=== PATIENT | male | born 1980 | race Caucasian/White ===

== ENCOUNTER 2021-02-08 13:04 | Inpatient (IN) ==
--- NOTE | 2021-02-08 14:43 | Emergency Department Note ---
History of Present Illness General Chief complaint: Illness Stated complaint: Illness noncompliant w/ meds Time Seen by Provider: 02/08/21 14:02 Source: EMS Mode of arrival: EMS Limitations: patient cooperation History of Present Illness Provider complaint: Unresponsive episode This is a 40-year-old male brought in by EMS after supposedly roommates or neighbors called 911. EMS reports their initial call out was for an unresponsive person. They reported to EMS and police patient had not taken his meds or moved off the couch in 1 month. Patient was awake for EMS however refused to provide any additional history. On my evaluation here in the emergency room, patient did say hi been entered the room but otherwise refused to answer any questions, was seated on the bed in no apparent distress. Pt seen during a time of high acuity and national emergency pandemic while wearing PPE. Home Medications Medication Instructions Recorded Confirmed Type olanzapine 10 mg tablet (Zyprexa) 15 mg PO HS 03/14/20 02/08/21 History bupropion HCl 100 mg tablet,12 hr 100 mg PO BID 10/31/20 02/08/21 History sustained-release lamotrigine 200 mg tablet 200 mg PO BID 10/31/20 02/08/21 History Allergies Allergy/AdvReac Type Severity Reaction Status Date / Time No Known Allergies Allergy Verified 02/08/21 22:26 Past Med/Surg History Medical History Anxiety Bipolar disorder Depression Obesity Surgical History No pertinent past surgical history Social History Smoking Status: Unknown if ever smoked Preferred Language: Upper Sorbian Feels Safe at Home: Declines to Answer Review of Systems See HPI for pertinent positives & negatives. Unobtainable due to mental health condition Physical Exam Vital Signs Vital Signs - 24 hr 02/08/21 13:10 02/08/21 19:19 02/08/21 21:00 Temperature 36.8 C Temperature Source Oral Pulse Rate 84 Pulse Rate [Right Finger] 84 82 Pulse Rhythm Regular Pulse Strength Normal Respiratory Rate 18 20 20 Respiratory Effort / Characteristics Non-Labored Non-Labored Spontaneous Non-Labored Spontaneous Respiratory Depth Normal Normal Normal Respiratory Pattern Regular Regular Blood Pressure 141/98 H Blood Pressure [Right Arm] 136/83 128/74 Blood Pressure Mean 112 Blood Pressure Mean [Right Arm] 100 92 Blood Pressure Position Sitting Pulse Oximetry 99 95 96 Oxygen Delivery Method Room Air Room Air Room Air Sepsis Recent Fever Within 48 Hours No Sepsis New/Unexplained Change in Mental Status N/A Sepsis Action Taken by Nursing No Action Required GENERAL: alert, well appearing, well nourished, no distress, non-toxic EYE EXAM: normal conjunctiva, PERRL and EOM's grossly intact OROPHARYNX: no exudate, no erythema, lips, buccal mucosa, and tongue normal and mucous membranes are moist NECK: supple, no nuchal rigidity, no adenopathy, non-tender LUNGS: Clear to auscultation. Normal chest wall mechanics, no w/r/r HEART: no murmurs, S1 normal and S2 normal ABDOMEN: abdomen soft, non-tender, normo-active bowel sounds, no masses, no rebound or guarding. BACK: Back is symmetrical on inspection and there is no deformity, no midline tenderness, no CVA tenderness. SKIN: no rashes and no bruising UPPER EXTREMITIES: upper extremities are grossly normal. FROM, nml pulses b/l. LOWER EXTREMITIES: No pitting edema. FROM, nml pulses b/l. NEURO EXAM: Patient is awake, looks to me when I entered the room, would not cooperate for any additional neuro testing however is moving all 4 extremities spontaneously. Course Course 213: 302 signed. manager access contacted delegate. Administered Medications Discontinued Medications Sodium Chloride (Nss 1000ml) 1,000 mls @ 999 mls/hr IV .[id number] ONE Stop: 02/09/21 00:18 Last Admin: 02/09/21 01:25 Dose: Not Given Documented by: [id number] Medical Decision Making Differential Diagnosis Differential diagnoses considered include mood disorder, infection, hypoglycemia, electrolyte abnormalities, cardiac sources, intracerebral event, toxicologic, neurologic, as well as others. Laboratory Data Result diagrams: 02/08/21 14:32 02/08/21 14:32 Lab Results 02/08/21 02/08/21 02/08/21 Range/Units 14:32 14:32 14:32 WBC 12.98 H (4.8-10.8) K/uL RBC 5.98 (4.7-6.1) M/uL Hgb 18.7 H (14.0-18.0) g/dL Hct 51.3 (42-52) % MCV 85.8 (80-100) fL MCH 31.3 (25-34) pg MCHC 36.5 H (32-36) g/dL RDW Std Deviation 39.5 (36.4-46.3) fL RDW Coeff of [place] 12.6 (11.5-14.5) % Plt Count 275 (130-400) K/uL MPV 10.3 (7.4-10.4) fL Immature Gran % (Auto) 0.6 % Neut % (Auto) 74.3 % Lymph % (Auto) 14.2 % [place] % (Auto) 10.4 % Eos % (Auto) 0.3 % Baso % (Auto) 0.2 % Neut # (Auto) 9.64 H (1.4-6.5) K/uL Lymph # (Auto) 1.84 (1.2-3.4) K/uL [place] # (Auto) 1.35 H (0.11-0.59) K/uL Eos # (Auto) 0.04 (0-0.5) K/uL Baso # (Auto) 0.03 (0-0.2) K/uL Immature Gran # (Auto) 0.08 H (0.00-0.02) K/uL Sodium 141 (136-145) mmol/L Potassium 3.5 (3.5-5.1) mmol/L Chloride 109 H (98-107) mmol/L Carbon Dioxide 21 (21-32) mmol/L Anion Gap 11.0 (3-11) BUN 19 H (7-18) mg/dl Creatinine 1.30 (0.6-1.4) mg/dl Est Cr Clr Drug Dosing 103.0 ml/min Est GFR ( Amer) 79.1 ml/min Est GFR (Non-Af Amer) 68.3 ml/min BUN/Creatinine Ratio 14.9 (10-20) Glucose 103 H (70-99) mg/dl Calcium 9.6 (8.5-10.1) mg/dl Total Bilirubin 0.6 (0.2-1) mg/dl AST 10 L (15-37) U/L ALT 16 (12-78) U/L Alkaline Phosphatase 123 H (45-117) U/L Total Protein 7.9 (6.4-8.2) gm/dl Albumin 3.9 (3.4-5.0) gm/dl Globulin 4.0 (2.5-4.0) gm/dl Albumin/Globulin Ratio 1.0 (0.9-2) TSH 0.418 (0.300-4.500) uIu/ml Urine Color Urine Appearance (Clear) Urine pH (4.5-7.5) Ur Specific [place] (1.000-1.030) Urine Protein (Negative) Urine Glucose (UA) (Negative) Urine Ketones (Negative) Urine Blood (Negative) Urine Nitrite (Negative) Urine Bilirubin (Negative) Urine Urobilinogen (Negative) Ur Leukocyte Esterase (Negative) Urine WBC (Auto) (0-5) /hpf Urine RBC (Auto) (0-4) /hpf U Hyaline Cast (Auto) (0-5) /lpf U Epithel Cells (Auto) (0-5) /lpf Urine Bacteria (Auto) (Negative) Other Crystals (None Prsent) Urine Mucus (None Prsent) Salicylates < 1.7 L (2.8-20) mg/dl Urine Opiates Screen (Neg) Ur Methadone, Qual (Neg) Acetaminophen < 2 L (10-30) ug/ml Urine Barbiturates (Neg) Ur Phencyclidine (PCP) (Neg) U Amphetamin/Meth Scrn (Neg) MDMA (Ecstasy) Screen (Neg) U Benzodiazepines Scrn (Neg) Ur Cocaine Metabolite (Neg) U Marijuana (THC) Screen (Neg) Ethyl Alcohol mg/dL (0-3) mg/dl COVID-19 Eval Order SARS-CoV-2, RNA, NAAT (NEGATIVE) 02/08/21 02/08/21 02/08/21 Range/Units 14:32 17:16 17:16 WBC (4.8-10.8) K/uL RBC (4.7-6.1) M/uL Hgb (14.0-18.0) g/dL Hct (42-52) % MCV (80-100) fL MCH (25-34) pg MCHC (32-36) g/dL RDW Std Deviation (36.4-46.3) fL RDW Coeff of Sidney (11.5-14.5) % Plt Count (130-400) K/uL MPV (7.4-10.4) fL Immature Gran % (Auto) % Neut % (Auto) % Lymph % (Auto) % [place] % (Auto) % Eos % (Auto) % Baso % (Auto) % Neut # (Auto) (1.4-6.5) K/uL Lymph # (Auto) (1.2-3.4) K/uL [place] # (Auto) (0.11-0.59) K/uL Eos # (Auto) (0-0.5) K/uL Baso # (Auto) (0-0.2) K/uL Immature Gran # (Auto) (0.00-0.02) K/uL Sodium (136-145) mmol/L Potassium (3.5-5.1) mmol/L Chloride (98-107) mmol/L Carbon Dioxide (21-32) mmol/L Anion Gap (3-11) BUN (7-18) mg/dl Creatinine (0.6-1.4) mg/dl Est Cr Clr Drug Dosing ml/min Est GFR ( Amer) ml/min Est GFR (Non-Af Amer) ml/min BUN/Creatinine Ratio (10-20) Glucose (70-99) mg/dl Calcium (8.5-10.1) mg/dl Total Bilirubin (0.2-1) mg/dl AST (15-37) U/L ALT (12-78) U/L Alkaline Phosphatase (45-117) U/L Total Protein (6.4-8.2) gm/dl Albumin (3.4-5.0) gm/dl Globulin (2.5-4.0) gm/dl Albumin/Globulin Ratio (0.9-2) TSH (0.300-4.500) uIu/ml Urine Color Urine Appearance (Clear) Urine pH (4.5-7.5) Ur Specific [place] (1.000-1.030) Urine Protein (Negative) Urine Glucose (UA) (Negative) Urine Ketones (Negative) Urine Blood (Negative) Urine Nitrite (Negative) Urine Bilirubin (Negative) Urine Urobilinogen (Negative) Ur Leukocyte Esterase (Negative) Urine WBC (Auto) (0-5) /hpf Urine RBC (Auto) (0-4) /hpf U Hyaline Cast (Auto) (0-5) /lpf U Epithel Cells (Auto) (0-5) /lpf Urine Bacteria (Auto) (Negative) Other Crystals (None Prsent) Urine Mucus (None Prsent) Salicylates (2.8-20) mg/dl Urine Opiates Screen (Neg) Ur Methadone, Qual (Neg) Acetaminophen (10-30) ug/ml Urine Barbiturates (Neg) Ur Phencyclidine (PCP) (Neg) U Amphetamin/Meth Scrn (Neg) MDMA (Ecstasy) Screen (Neg) U Benzodiazepines Scrn (Neg) Ur Cocaine Metabolite (Neg) U Marijuana (THC) Screen (Neg) Ethyl Alcohol mg/dL < 3.0 (0-3) mg/dl COVID-19 Eval [facility] SARS-CoV-2, RNA, NAAT NEGATIVE (NEGATIVE) 02/08/21 02/08/21 Range/Units 19:45 19:45 WBC (4.8-10.8) K/uL RBC (4.7-6.1) M/uL Hgb (14.0-18.0) g/dL Hct (42-52) % MCV (80-100) fL MCH (25-34) pg MCHC (32-36) g/dL RDW Std Deviation (36.4-46.3) fL RDW Coeff of Sidney (11.5-14.5) % Plt Count (130-400) K/uL MPV (7.4-10.4) fL Immature Gran % (Auto) % Neut % (Auto) % Lymph % (Auto) % [place] % (Auto) % Eos % (Auto) % Baso % (Auto) % Neut # (Auto) (1.4-6.5) K/uL Lymph # (Auto) (1.2-3.4) K/uL [place] # (Auto) (0.11-0.59) K/uL Eos # (Auto) (0-0.5) K/uL Baso # (Auto) (0-0.2) K/uL Immature Gran # (Auto) (0.00-0.02) K/uL Sodium (136-145) mmol/L Potassium (3.5-5.1) mmol/L Chloride (98-107) mmol/L Carbon Dioxide (21-32) mmol/L Anion Gap (3-11) BUN (7-18) mg/dl Creatinine (0.6-1.4) mg/dl Est Cr Clr Drug Dosing ml/min Est GFR ( Amer) ml/min Est GFR (Non-Af Amer) ml/min BUN/Creatinine Ratio (10-20) Glucose (70-99) mg/dl Calcium (8.5-10.1) mg/dl Total Bilirubin (0.2-1) mg/dl AST (15-37) U/L ALT (12-78) U/L Alkaline Phosphatase (45-117) U/L Total Protein (6.4-8.2) gm/dl Albumin (3.4-5.0) gm/dl Globulin (2.5-4.0) gm/dl Albumin/Globulin Ratio (0.9-2) TSH (0.300-4.500) uIu/ml Urine Color Dark Yellow Urine Appearance Turbid A (Clear) Urine pH 6.0 (4.5-7.5) Ur Specific [place] 1.036 H (1.000-1.030) Urine Protein 1+ H (Negative) Urine Glucose (UA) Negative (Negative) Urine Ketones 4+ H (Negative) Urine Blood Negative (Negative) Urine Nitrite Negative (Negative) Urine Bilirubin Negative (Negative) Urine Urobilinogen Negative (Negative) Ur Leukocyte Esterase Negative (Negative) Urine WBC (Auto) 1-5 (0-5) /hpf Urine RBC (Auto) 5-10 H (0-4) /hpf U Hyaline Cast (Auto) 10-30 H (0-5) /lpf U Epithel Cells (Auto) 20-30 H (0-5) /lpf Urine Bacteria (Auto) Negative (Negative) Other Crystals Ammonium Biurate A (None Prsent) Urine Mucus Present A (None Prsent) Salicylates (2.8-20) mg/dl Urine Opiates Screen Neg (Neg) Ur Methadone, Qual Neg (Neg) Acetaminophen (10-30) ug/ml Urine Barbiturates Neg (Neg) Ur Phencyclidine (PCP) Neg (Neg) U Amphetamin/Meth Scrn Neg (Neg) MDMA (Ecstasy) Screen Neg (Neg) U Benzodiazepines Scrn Neg (Neg) Ur Cocaine Metabolite Neg (Neg) U Marijuana (THC) Screen Neg (Neg) Ethyl Alcohol mg/dL (0-3) mg/dl COVID-19 Eval Order SARS-CoV-2, RNA, NAAT (NEGATIVE) MDM Narrative Patient presented for evaluation with neighbors reporting to EMS pt noncompliant with meds and not caring for himself. Patient refusing to answer any questions here, seems to understand and intentionally is refusing to speak. Patient encouraged to drink fluids as he appeared clinically dehydrated and labs/urine suggested dehydration. Patient continued to refuse, so an IV was attempted. This was unsuccessful and patient then willing to drink water. VS stable. Patient doesn't appear in any distress. Moving all extremities spontaneously. 302 signed and delegate came to the ER. Patient signed out to Dr. Ibrahim pending final disposition. Impression & Plan Noncompliance, Psychosis Discharge Plan Visit Data Chief Complaint: Illness Stated Complaint: Illness noncompliant w/ meds ED Provider: Nicolas Ibrahim Discharge Problem: Noncompliance, Psychosis Forms Stand Alone Forms: My [facility] Prescriptions Prescriptions: No Action olanzapine [Zyprexa] 10 mg Tablet 15 mg PO HS RF: 0 lamotrigine 200 mg tablet 200 mg PO BID RF: 0 bupropion HCl 100 mg tablet sustained-release 12 hr 100 mg PO BID RF: 0 Referrals Referrals: PCP,NO [Primary Care Provider] - Discharge Problem: Psychosis Qualifiers: Psychosis type: unspecified psychosis type Qualified Code(s): F29 - Unspecified psychosis not due to a substance or known physiological condition
[2021-02-08 14:49] LABS: Basophils # (auto) 0.03 K/uL (0-0.2); Basophils % (auto) 0.2 %; Eosinophils # (auto) 0.04 K/uL (0-0.5); Eosinophils % (auto) 0.3 %; Hematocrit (blood only) 51.3 % (42-52); Hemoglobin 18.7 g/dL (14.0-18.0); Immature Granulocytes # (auto) 0.08 K/uL (0.00-0.02); Immature Granulocytes % (auto) 0.6 %; Lymphocytes # (auto) 1.84 K/uL (1.2-3.4); Lymphocytes % (auto) 14.2 %; Mean Corpuscular Hemoglobin 31.3 pg (25-34); Mean Corpuscular Hgb Conc 36.5 g/dL (32-36); Mean Corpuscular Volume 85.8 fL (80-100); Mean Platelet Volume 10.3 fL (7.4-10.4); Monocytes # (auto) 1.35 K/uL (0.11-0.59); Monocytes % (auto) 10.4 %; Neutrophils # (auto) 9.64 K/uL (1.4-6.5); Neutrophils % (auto) 74.3 %; Platelet Count 275 K/uL (130-400); RDW Coefficient of Variation 12.6 % (11.5-14.5); RDW Standard Deviation 39.5 fL (36.4-46.3); Red Blood Count 5.98 M/uL (4.7-6.1); White Blood Count 12.98 K/uL (4.8-10.8)
[2021-02-08 15:15] LABS: Albumin Level 3.9 gm/dl (3.4-5.0); BUN Creatinine Ratio 14.9 (10-20); Calcium 9.6 mg/dl (8.5-10.1); Est GFR (African American) 79.1 ml/min; Est GFR (Non-African American) 68.3 ml/min; Potassium 3.5 mmol/L (3.5-5.1)
[2021-02-08 15:25] LABS: Bilirubin,Total 0.6 mg/dl (0.2-1); Thyroid Stimulating Hormone 0.418 uIu/ml (0.300-4.500); Total Protein 7.9 gm/dl (6.4-8.2)
[2021-02-08 15:30] LABS: Acetaminophen < 2 ug/ml (10-30); Salicylate < 1.7 mg/dl (2.8-20)
[2021-02-08 20:12] LABS: Appearance Urine Turbid (Clear); Bacteria Urine Automated Negative (Negative); Bilirubin Urine Negative (Negative); Blood Urine Negative (Negative); Color Urine Dark Yellow; Epithelial Cell Urine Auto 20-30 /lpf (0-5); Glucose Urine UA Negative (Negative); Ketones Urine 4+ (Negative); Leukocyte Esterase Urine Negative (Negative); Nitrite Urine Negative (Negative); Protein Urine 1+ (Negative); Specific Gravity Urine 1.036 (1.000-1.030); Urobilinogen Urine Negative (Negative)
[2021-02-08 20:30] LABS: Amphetamines+Metham, Urine Neg (Neg); Barbiturates, Urine Neg (Neg); Benzodiazepine, Urine Neg (Neg); Cocaine, Urine Neg (Neg); MDMA (Ecstacy), Urine Neg (Neg); Methadone, Urine Neg (Neg); Opiate, Urine Neg (Neg); Phencyclidine, Urine Neg (Neg)
[2021-02-08 20:48] LABS: Mucus Urine Present (None Prsent)
[2021-02-08] MEDS ORDERED: SODIUM CHLORIDE 0.9% 1000ML 1,000 ML IV ONE (23:18)
--- NOTE | 2021-02-08 23:36 | Emergency Department Note ---
ED Visit Note ED Physician Sign Out Note: 40 yr old male with acute psychosis and non-compliance here on [address] after roommate called 911 due to not caring for himself, not taking his medications. Initially seen and medically cleared by Dr Parkinson. Signed out to me pending psychiatric placement. On evaluation he is sitting drinking fluids without issue. Patient accepted to [address] [place] [address] for further management. Nicolas Ibrahim MD : Psychosis Qualifiers: Psychosis type: unspecified psychosis type Qualified Code(s): F29 - Unspecified psychosis not due to a substance or known physiological condition
[2021-02-09] MEDS ORDERED: BISMUTH SUBSALICYLATE LIQD 236 ML PO PRN (02:04)
[2021-02-09] MEDS ORDERED: ALUMINUM/MAGNESIUM SUSP 30 ML UDC PO PRN (02:04)
[2021-02-09] MEDS ORDERED: SODIUM CHLORIDE 0.65% NA SOLN 45 ML (OCEAN) PRN (02:04)
[2021-02-09] MEDS ORDERED: ACETAMINOPHEN 325 MG TAB PO PRN (02:04)
[2021-02-09] MEDS ORDERED: MAGNESIUM HYDROXIDE SUSP 30 ML UDC PO PRN (02:04)
[2021-02-09] MEDS ORDERED: hydrOXYzine HCl 25 MG TAB PO PRN ×2 (02:04)
[2021-02-09] MEDS ORDERED: LORazepam 0.5 MG TAB PO STA (02:07)
[2021-02-09] MEDS ORDERED: OLANZapine 5 MG TABLET PO STA (02:07)
[2021-02-09] MEDS ORDERED: LORazepam 1 MG TAB SL STA (09:54)
[2021-02-09] MEDS ORDERED: LORazepam 2 MG/ML VIAL (IM USE) IM PRN (14:58)
[2021-02-09] MEDS ORDERED: LORazepam 2 MG/ML VIAL (IM USE) IM ONE (15:00)
--- NOTE | 2021-02-09 15:58 | History & Physical ---
Date of Service February 09, 2021 Impression / Recommendations Impression The patient is a 40 year old with a history of schizoaffective disorder, catatonia and depression who was admitted for failure of self-care and worsening decompensation. The patient is deemed unstable and requires psychiatric hospitalization for diagnostic clarification, safety and stabilization, medication management and development of further coping skills. The patient was admitted to the [facility] on q15 min checks (behavioral with suicide precautions) for safety. The patient will participate in group, recreational, and milieu therapies and will be offered additional individual and family sessions as clinically appropriate. Diagnostically consistent with schizoaffective disorder per history with catatonia likely current depression given reports of multiple psychosocial stressors including pending divorce and child custody court case. Refusing sublingual ativan so unable to do ativan challenge. For now will continue to encourage SL ativan and monitor I/Os. (1) Catatonia: (2) Schizoaffective disorder: 02/09/2021--admitted to [facility]. Ativan 2mg SL TID ordered. Track Is&Os. Vitals BID. Inventory Assets Strengths: outpatient providers Risk Factors Assessment Male: Yes : Yes Do You Have Access To A Gun?: No (in supportive living enviornment, pt unable to answer ) Mental Health Diagnoses: Yes Previous Psychiatric Hospitalization: Yes Protective Factors Assessment Employed: No Psychiatric History Identifying Data LAMAR SWIFT is a 40-year-old man who currently lives in a supportive living environment, has a history of BPAD and catatonia with multiple prior psychiatric hospitalizations, and was admitted on 02/09/21 01:22 on a 302 involuntary commitment for lack of regard to self-care, not eating or drinking, and not moving raising concern for catatonia. Chief Complaint Patient is nonverbal during assessment. History of Present Illness Lamar is lying in bed on his side under the covers with his jaw clenched and eyes open. He makes brief eye contact but is otherwise non-verbal throughout the interview. Collateral information and chart review notable for a history of significant psychiatric decompensation in 2018 with recent psychosocial stressors including divorce and potential custody changes regarding his daughter. He has a history of BPAD vs schizoaffective disorder and catatonia. He has not been taking his medications for a month and missed his last appointment with his psychiatrist. He has apparently been hardly moving from a couch and ov er the last week showing significant reduction in po intake. Branham-Alfonso Catatonia Rating Scale was completed with screeing score of 11 (highest items for mutism, grimacing, withdrawal. Past Psychiatric History Previous Psych History: Hx of diagnoses of BPAD vs schizoaffective disorder, hx MDD, hx catatonia Current Psychiatric Diagnosis: Schizoaffective depressed type Outpatient Services: has case repairer and supportive housing and psychiatrist through [facility] Previous Psych Admissions: multiple-unable to clarify precise dates Do You Have Access To A Gun?: No (in supportive living enviornment, pt unable to answer ) History of Previous Suicide Attempt: No (none known per chart review) Past Medication Trials: has received ativan in the past, most recently was prescribed lamictal, Wellbutrin and zyprexa but hasn't taken in more than a month Allergies Allergy/AdvReac Type Severity Reaction Status Date / Time No Known Allergies Allergy Verified 02/08/21 22:26 Home Medications Medication Instructions Recorded Confirmed Type olanzapine 10 mg tablet (Zyprexa) 15 mg PO HS 03/14/20 02/08/21 History bupropion HCl 100 mg tablet,12 hr 100 mg PO BID 10/31/20 02/08/21 History sustained-release lamotrigine 200 mg tablet 200 mg PO BID 10/31/20 02/08/21 History Family History Family History of: Doesn't Know Alcohol History Hx of Alcohol Use Over the Past 12 Months: No Smoking Use Have You Smoked or Used Tobacco Products in the Last 30 Days: Refused to Answer Smoking Status: Unknown if ever smoked Substance History Hx of Prescription Med Misuse Over the Past 12 Months: No Hx of Over the Counter Med Misuse Over the Past 12 Months: No Hx of Inhalent Misuse Over the Past 12 Months: No Hx of Organic Substance Use Over the Past 12 Months: No Hx of Illegal Substances/Street Drug Use Over Past 12 Months: No Problems as a Result of Past Substance Use: None Identified Personal History Living Arrangements: [facility] Living Arrangements Comments: [facility] Marital Status: Beliefs That Will Affect Care: None Patient History Medical History (Updated 02/09/21 @ 16:10 by Tete Garces MD) Anxiety Bipolar disorder Catatonia Depression Obesity Schizoaffective disorder Surgical History No pertinent past surgical history Social History Smoking Status: Unknown if ever smoked Preferred Language: Polish Communication Ability: non-verbal Communication Ability Comment: Catatonic like behavior Systems Administration Analyst Required: No Beliefs That Will Affect Care: None Feels Safe at Home: Declines to Answer Assistive Devices: Glasses Review of Systems Review of Systems: Unobtainable due to mental health condition Physical Exam Psychiatric: Orientation: alert; + uncooperative Apperance: + disheveled Eye Contact: + fair eye contact Motor Behavior: + psychomotor retardation Speech: + mute Affect: + flat affect unable to assess unable to assess unable to assess unable to assess unable to assess unable to assess unable to assess Judgement: + severely impaired judgement Vital Signs (Past 24 Hours): Last Vital Signs Temp 36.8 C 02/09/21 02:17 Pulse 120 H 02/09/21 13:23 Resp 16 02/09/21 06:59 BP 165/81 H 02/09/21 13:23 Pulse Ox 98 02/09/21 02:17 Exam Statement: A physical exam was performed in the ED by Dr. Ibrahim for the purposes of medical clearance. I accept that physical as correct and adequate for the purposes of the inpatient physical exam. Results & Data ([facility]) Laboratory Results Laboratory Results - last 24 hr 02/08/21 02/08/21 02/08/21 17:16 17:16 19:45 Urine Color Dark Yellow Urine Appearance Turbid A Urine pH 6.0 Ur Specific [place] 1.036 H Urine Protein 1+ H Urine Glucose (UA) Negative Urine Ketones 4+ H Urine Blood Negative Urine Nitrite Negative Urine Bilirubin Negative Urine Urobilinogen Negative Ur Leukocyte Esterase Negative Urine WBC (Auto) 1-5 Urine RBC (Auto) 5-10 H U Hyaline Cast (Auto) 10-30 H U Epithel Cells (Auto) 20-30 H Urine Bacteria (Auto) Negative Other Crystals Ammonium Biurate A Urine Mucus Present A Urine Opiates Screen Ur Methadone, Qual Urine Barbiturates Ur Phencyclidine (PCP) U Amphetamin/Meth Scrn MDMA (Ecstasy) Screen U Benzodiazepines Scrn Ur Cocaine Metabolite U Marijuana (THC) Screen COVID-19 Eval [facility] SARS-CoV-2, RNA, NAAT NEGATIVE 02/08/21 19:45 Urine Color Urine Appearance Urine pH Ur Specific [place] Urine Protein Urine Glucose (UA) Urine Ketones Urine Blood Urine Nitrite Urine Bilirubin Urine Urobilinogen Ur Leukocyte Esterase Urine WBC (Auto) Urine RBC (Auto) U Hyaline Cast (Auto) U Epithel Cells (Auto) Urine Bacteria (Auto) Other Crystals Urine Mucus Urine Opiates Screen Neg Ur Methadone, Qual Neg Urine Barbiturates Neg Ur Phencyclidine (PCP) Neg U Amphetamin/Meth Scrn Neg MDMA (Ecstasy) Screen Neg U Benzodiazepines Scrn Neg Ur Cocaine Metabolite Neg U Marijuana (THC) Screen Neg COVID-19 Eval Order SARS-CoV-2, RNA, NAAT Current Inpatient Medications Current Inpatient Medications: Current Inpatient Medications Acetaminophen (Acetaminophen 325 Mg Tab) 650 mg PO Q4H PRN PRN Reason: Headache or Minor Fever Stop: 03/11/21 02:03 Al Hydrox/Mg Hydrox/Simethicone (Aluminum/Magnesium Susp 30 Ml Udc) 30 ml PO Q4H PRN PRN Reason: GI Upset Stop: 03/11/21 02:03 Bismuth Subsalicylate (Bismuth Subsalicylate Liqd 236 Ml) 15 ml PO PRN PRN PRN Reason: Loose Stool Stop: 03/11/21 02:03 Hydroxyzine HCl (Hydroxyzine Hcl 25 Mg Tab) 50 mg PO HSZ PRN PRN Reason: Insomnia Stop: 03/11/21 02:03 Hydroxyzine HCl (Hydroxyzine Hcl 25 Mg Tab) 25 mg PO Q4H PRN PRN Reason: Anxiety Stop: 03/11/21 02:03 Lorazepam (Lorazepam 1 Mg Tab) 2 mg SL TID OG Stop: 03/11/21 20:59 Magnesium Hydroxide (Magnesium Hydroxide Susp 30 Ml Udc) 30 ml PO DAILY PRN PRN Reason: Constipation Stop: 03/11/21 02:03 Sodium Chloride (Sodium Chloride 0.65% Na Soln 45 Ml ([place])) 1 - 2 sprays NA PRN PRN PRN Reason: Nasal Dryness/Congestion Stop: 03/11/21 02:03
[2021-02-09] MEDS: LORazepam 1 MG TAB SL SCH (20:13)
[2021-02-10] MEDS: LORazepam 1 MG TAB SL SCH ×3 (09:09→20:04)
--- NOTE | 2021-02-10 11:30 | Psychiatric Progress Note ---
Date of Service February 10, 2021 Impression / Recommendations Impression The patient is a 40 year old with a history of schizophrenia vs BPAD, catatonia and depression who was admitted for failure of self-care and worsening decompensation. The patient is deemed unstable and requires psychiatric hospitalization for diagnostic clarification, safety and stabilization, medication management and development of further coping skills. Diagnostically consistent with bipolar depression based on his history though one statement during interview could be considered more consistent with schizoaffective disorder. Responded well to ativan trial so will continue with TID dosing with plan to then possible try latuda or zyprexa for bipolar depression/schizoaffective disorder. Less concern for DVT now that he's up and walking and he denies any personal or fam hx of blood clots. He consented to continuing ativan after discussion of risks, benefits, alternatives. Continues to require MNPR for psychiatric symptoms of poor self-care and hygiene. (1) Catatonia: (2) Bipolar disorder with depression: 02/09/2021--admitted to [facility]. Ativan 2mg SL TID ordered. Track Is&Os. Vitals BID. 02/10/2021--continue with ativan 2mg TID SL. Showing significant improving in catatonic symptoms since ativan trial last night. If he continues to walk around no need for DVT prophylaxis. Will consider if 302 needs to be converted to 303 based on progress today. Inventory Assets Strengths: outpatient providers Risk Factors Assessment Male: Yes : Yes Do You Have Access To A Gun?: No (in supportive living enviornment, pt unable to answer ) Mental Health Diagnoses: Yes Previous Psychiatric Hospitalization: Yes Protective Factors Assessment Employed: No Interval History Identifying Information 40 yo man with history of catatonia, depression, possible BPAD vs schizophrenia admitted due to concern for catatonia and decompensation with failure of self- care. Chief Complaint "I'm withdrawn but not catatonic". Review of Systems Sleep Information Total Hours of Sleep: 8 Meal Information Percent Meal Consumed - Breakfast: 0 Percent Meal Consumed - Lunch: 0 Percent Meal Consumed - Dinner: 0 Nutrition Comment: pt had sips of fluids w prompts Subjective Subjective Chart and events of last 24 hours reviewed and discussed with multidisciplinary treatment team including nursing and social work. Accepted ativan last evening and within two hours was sitting up, going to bathroom and speaking with staff. Slept well. Ate dinner. Adherent with medications last night. David reports he has been catatonic before and that this time is different that he is "withdrawn" due to depression. Notes that depression stems from current divorce and custody duncan with ex-. He states he stopped his medications last month as they cause "heaviness and pressure" on his head and make it hard for him to do math and concentrate on things he likes. Notes that he is frustrated by limitations placed on him at his supportive living environment. Does ask at one point if we are "flying or up really high" based on the view from his bed. No other signs of psychosis or delusions. He disagrees with past diagnoses of schizophrenia and bipolar disorder though notes he has had periods of elevated mood, creativity and productivity during his life possibly representing episodes of lucio or hypomania. Feels he's in the hospital due to people worrying about him but he doesn't feel very worried about himself. He is agreeable to taking ativan though notes sometimes it makes him a bit dizzy. Denies current side effects. Feels we will know he is better once he is engaging more and speaking consistently with people. Agreed to start journaling and to eat breakfast. Is open to taking latuda or zyprexa but dislikes lithium. Spent more than 20 minutes in the care and coordination of this patient of which greater than 50% was dedicated to counseling and coordination of care. Physical Exam Psychiatric Orientation: alert and cooperative Apperance: + disheveled Eye Contact: good eye contact Motor Behavior: no abnormal motor movements Speech: normal rate/rhythm/volume of speech Affect: + flat affect Mood: + depressed mood Thought Process: goal directed thought process Thought Content: reality based without delusions Suicidal Thoughts: denies suicidal thoughts Homicidal Thoughts: denies homicidal thoughts Cognition: recent memory grossly intact, remote memory grossly intact and language grossly intact Estimated Intelligence: consistent with education level Insight: + limited insight Judgement: + limited judgement Vital Signs (Past 24 Hours) Last Vital Signs Temp 36.6 C 02/10/21 06:43 Pulse 98 H 02/10/21 06:43 Resp 16 02/09/21 16:23 BP 107/73 02/10/21 06:43 Pulse Ox 100 02/09/21 16:23 Results & Data ([facility]) Current Inpatient Medications Current Inpatient Medications: Current Inpatient Medications Acetaminophen (Acetaminophen 325 Mg Tab) 650 mg PO Q4H PRN PRN Reason: Headache or Minor Fever Stop: 03/11/21 02:03 Al Hydrox/Mg Hydrox/Simethicone (Aluminum/Magnesium Susp 30 Ml Udc) 30 ml PO Q4H PRN PRN Reason: GI Upset Stop: 03/11/21 02:03 Bismuth Subsalicylate (Bismuth Subsalicylate Liqd 236 Ml) 15 ml PO PRN PRN PRN Reason: Loose Stool Stop: 03/11/21 02:03 Hydroxyzine HCl (Hydroxyzine Hcl 25 Mg Tab) 50 mg PO HSZ PRN PRN Reason: Insomnia Stop: 03/11/21 02:03 Hydroxyzine HCl (Hydroxyzine Hcl 25 Mg Tab) 25 mg PO Q4H PRN PRN Reason: Anxiety Stop: 03/11/21 02:03 Lorazepam (Lorazepam 1 Mg Tab) 2 mg SL TID OG Stop: 03/11/21 20:59 Last Admin: 02/10/21 09:09 Dose: 2 mg Documented by: Magnesium Hydroxide (Magnesium Hydroxide Susp 30 Ml Udc) 30 ml PO DAILY PRN PRN Reason: Constipation Stop: 03/11/21 02:03 Sodium Chloride (Sodium Chloride 0.65% Na Soln 45 Ml ([place])) 1 - 2 sprays NA PRN PRN PRN Reason: Nasal Dryness/Congestion Stop: 03/11/21 02:03 Mental Health & Subst Abuse Tx Therapist Name of Therapist: Unknown Post Discharge Appointments Primary Care Physician Name Of Family Doctor: Unknown
--- NOTE | 2021-02-10 15:34 | Progress Note ---
Date of Service February 10, 2021 Assessment & Plan Admission and Anticipated Discharge Date Admission Date: February 09, 2021 Physical Exam Psychiatric: A+Ox3, euthymic affect Eye Contact: good eye contact Results & Data ([facility]) Vital Signs (Past 12 Hours) Vital Signs Temp Pulse BP 02/10/21 13:25 82 120/83 02/10/21 06:43 36.6 C 98 H 107/73
[2021-02-11] MEDS: LORazepam 1 MG TAB SL SCH ×3 (09:30→22:17)
--- NOTE | 2021-02-11 16:10 | Psychiatric Progress Note ---
Date of Service February 11, 2021 Impression / Recommendations Impression The patient is a 40 year old with a history of schizophrenia vs BPAD, catatonia and depression who was admitted for failure of self-care and worsening decompensation. The patient is deemed unstable and requires psychiatric hospitalization for diagnostic clarification, safety and stabilization, medication management and development of further coping skills. Diagnostically consistent with bipolar depression v schizoaffective disorder. Continues to remain largely isolative to his room though has been voiding independently and eating some meals as well as drinking fluids with direction. Would not engage on exam today and refused afternoon dose of ativan. Continue with current plan to address catatonia though some withdrawn behaviors appear more volitional. -302 status, expires 02/13 in the evening -discontinuing MNPR as he is now able to void independently (1) Catatonia: (2) Bipolar disorder with depression: 02/09/2021--admitted to [facility]. Ativan 2mg SL TID ordered. Track Is&Os. Vitals BID. 02/10/2021--continue with ativan 2mg TID SL. Showing significant improving in catatonic symptoms since ativan trial last night. If he continues to walk around no need for DVT prophylaxis. Will consider if 302 needs to be converted to 303 based on progress today. 02/11/2021--continue with scheduled ativan. Less engagement today but still eating and drinking. Plan for likely 303 given his inability/reluctance to engage in treatment. Reviewed outside records. Risk Factors Assessment Male: Yes : Yes Do You Have Access To A Gun?: No (in supportive living enviornment, pt unable to answer ) Mental Health Diagnoses: Yes Previous Psychiatric Hospitalization: Yes Protective Factors Assessment Employed: No Interval History Identifying Information 40 yo man with history of catatonia, depression, possible BPAD vs schizophrenia admitted due to concern for catatonia and decompensation with failure of self- care. Chief Complaint Non-verbal today Review of Systems Sleep Information Total Hours of Sleep: 6.5 Sleep Comments: pt on q-15 minute checks Meal Information Percent Meal Consumed - Breakfast: 0 Percent Meal Consumed - Lunch: 0 Percent Meal Consumed - Dinner: 90 Nutrition Comment: Meal dated, labeled and refrigerated Subjective Subjective Chart and events of last 24 hours reviewed and discussed with multidisciplinary treatment team including nursing and social work. No acute events reported overnight. Slept well. Ate most of his dinner last night. Not attending groups. Adherent with medications but not with mid-day dose of ativan. I attempted to speak with David on three different occassions today and he would not open his eyes or interact. He has been getting up to eat and void. Spent more than 20 minutes in the care and coordination of this patient of which greater than 50% was dedicated to counseling and coordination of care. Physical Exam Psychiatric Orientation: + uncooperative Apperance: + disheveled Eye Contact: + poor eye contact Motor Behavior: no abnormal motor movements Speech: + mute Affect: + flat affect Insight: + impaired insight Judgement: + impaired judgement Vital Signs (Past 24 Hours) Last Vital Signs Temp 36.5 C 02/11/21 06:53 Pulse 111 H 02/11/21 06:53 Resp 16 02/11/21 06:53 BP 126/86 02/11/21 06:53 Pulse Ox 95 02/10/21 22:38 Results & Data ([facility]) Current Inpatient Medications Current Inpatient Medications: Current Inpatient Medications Acetaminophen (Acetaminophen 325 Mg Tab) 650 mg PO Q4H PRN PRN Reason: Headache or Minor Fever Stop: 03/11/21 02:03 Al Hydrox/Mg Hydrox/Simethicone (Aluminum/Magnesium Susp 30 Ml Udc) 30 ml PO Q4H PRN PRN Reason: GI Upset Stop: 03/11/21 02:03 Bismuth Subsalicylate (Bismuth Subsalicylate Liqd 236 Ml) 15 ml PO PRN PRN PRN Reason: Loose Stool Stop: 03/11/21 02:03 Hydroxyzine HCl (Hydroxyzine Hcl 25 Mg Tab) 50 mg PO HSZ PRN PRN Reason: Insomnia Stop: 03/11/21 02:03 Hydroxyzine HCl (Hydroxyzine Hcl 25 Mg Tab) 25 mg PO Q4H PRN PRN Reason: Anxiety Stop: 03/11/21 02:03 Lorazepam (Lorazepam 1 Mg Tab) 2 mg SL TID OG Stop: 03/11/21 20:59 Last Admin: 02/11/21 14:15 Dose: Not Given Documented by: Magnesium Hydroxide (Magnesium Hydroxide Susp 30 Ml Udc) 30 ml PO DAILY PRN PRN Reason: Constipation Stop: 03/11/21 02:03 Sodium Chloride (Sodium Chloride 0.65% Na Soln 45 Ml ([place])) 1 - 2 sprays NA PRN PRN PRN Reason: Nasal Dryness/Congestion Stop: 03/11/21 02:03 Mental Health & Subst Abuse Tx Psychiatrist Name of Psychiatrist: Oniel Jacobs Psychiatrist's Date of Appointment with Psychiatrist: 03/13/21 Time of Appointment with Psychiatrist: 9:20am Psychiatric Appointment Comment: Zoom *is on waiting list for appt. sooner Therapist Name of Therapist: Unknown Commissions Analyst Name of Commissions Analyst: Angel Johns Post Discharge Appointments Primary Care Physician Name Of Family Doctor: Unknown
[2021-02-12] MEDS: LORazepam 1 MG TAB SL SCH ×3 (09:42→20:40)
--- NOTE | 2021-02-12 17:05 | Psychiatric Progress Note ---
Date of Service February 12, 2021 Impression / Recommendations Impression The patient is a 40 year old with a history of schizophrenia vs BPAD, catatonia and depression who was admitted for failure of self-care and worsening decompensation. The patient is deemed unstable and requires psychiatric hospitalization for diagnostic clarification, safety and stabilization, medication management and development of further coping skills. Diagnostically consistent with bipolar depression v schizoaffective disorder. Continues to remain largely isolative to his room though has been voiding independently and eating some meals as well as drinking fluids with direction. Would not engage on exam again today and refusing ativan. Continue with current plan to address catatonia and then treat depression and psychosis. -302 status, expires 02/13 in the evening; commitment hearing for 303 scheduled for tomorrow (1) Catatonia: (2) Bipolar disorder with depression: 02/09/2021--admitted to [facility]. Ativan 2mg SL TID ordered. Track Is&Os. Vitals BID. 02/10/2021--continue with ativan 2mg TID SL. Showing significant improving in catatonic symptoms since ativan trial last night. If he continues to walk around no need for DVT prophylaxis. Will consider if 302 needs to be converted to 303 based on progress today. 02/11/2021--continue with scheduled ativan. Less engagement today but still eating and drinking. Plan for likely 303 given his inability/reluctance to engage in treatment. Reviewed outside records. 02/12/2021--continues to refuse ativan today and won't engage with anyone nor leave his bed except to use the bathroom and to eat at night. Given some movement in the evening and to the bathroom he doesn't require DVT prophylaxis at this time but this remains a concern should he clinically worsen and will continue to monitor his nutritional and medical status closely. Risk Factors Assessment Male: Yes : Yes Do You Have Access To A Gun?: No (in supportive living enviornment, pt unable to answer ) Mental Health Diagnoses: Yes Previous Psychiatric Hospitalization: Yes Protective Factors Assessment Employed: No Interval History Identifying Information 40 yo man with history of catatonia, depression, possible BPAD vs schizophrenia admitted due to concern for catatonia and decompensation with failure of self- care. Chief Complaint mute today Review of Systems Sleep Information Total Hours of Sleep: 6 Sleep Comments: pt on q-15 minute checks Meal Information Percent Meal Consumed - Breakfast: 0 Percent Meal Consumed - Lunch: 0 Percent Meal Consumed - Dinner: 90 Nutrition Comment: Pt will not respond to staff. Subjective Subjective Chart and events of last 24 hours reviewed and discussed with multidisciplinary treatment team including nursing and social work. No acute events reported overnight. Slept well. Ate dinner. Not attendign groups. Nonadherent with medications yesterday and today. David was mute throughout the exam. Made eye contact but no other engagement. Discussed that his 302 commitment would be expiring and gave opportunity to discuss voluntary treatment which he did not engage in. Spent more than 20 minutes in the care and coordination of this patient of which greater than 50% was dedicated to counseling and coordination of care. Physical Exam Psychiatric Orientation: alert; + uncooperative Apperance: + disheveled Eye Contact: + fair eye contact Motor Behavior: no abnormal motor movements and + psychomotor retardation Speech: + mute Affect: + flat affect Insight: + impaired insight Judgement: + severely impaired judgement Vital Signs (Past 24 Hours) Last Vital Signs Temp 36.7 C 02/12/21 14:16 Pulse 108 H 02/12/21 14:16 Resp 16 02/12/21 14:16 BP 121/85 02/12/21 14:16 Pulse Ox 95 02/10/21 22:38 Results & Data ([facility]) Current Inpatient Medications Current Inpatient Medications: Current Inpatient Medications Acetaminophen (Acetaminophen 325 Mg Tab) 650 mg PO Q4H PRN PRN Reason: Headache or Minor Fever Stop: 03/11/21 02:03 Al Hydrox/Mg Hydrox/Simethicone (Aluminum/Magnesium Susp 30 Ml Udc) 30 ml PO Q4H PRN PRN Reason: GI Upset Stop: 03/11/21 02:03 Bismuth Subsalicylate (Bismuth Subsalicylate Liqd 236 Ml) 15 ml PO PRN PRN PRN Reason: Loose Stool Stop: 03/11/21 02:03 Hydroxyzine HCl (Hydroxyzine Hcl 25 Mg Tab) 50 mg PO HSZ PRN PRN Reason: Insomnia Stop: 03/11/21 02:03 Hydroxyzine HCl (Hydroxyzine Hcl 25 Mg Tab) 25 mg PO Q4H PRN PRN Reason: Anxiety Stop: 03/11/21 02:03 Lorazepam (Lorazepam 1 Mg Tab) 2 mg SL TID OG Stop: 03/11/21 20:59 Last Admin: 02/12/21 14:22 Dose: Not Given Documented by: Magnesium Hydroxide (Magnesium Hydroxide Susp 30 Ml Udc) 30 ml PO DAILY PRN PRN Reason: Constipation Stop: 03/11/21 02:03 Sodium Chloride (Sodium Chloride 0.65% Na Soln 45 Ml ([place])) 1 - 2 sprays NA PRN PRN PRN Reason: Nasal Dryness/Congestion Stop: 03/11/21 02:03 Mental Health & Subst Abuse Tx Psychiatrist Name of Psychiatrist: Oniel Jacobs Psychiatrist's Date of Appointment with Psychiatrist: 03/13/21 Time of Appointment with Psychiatrist: 9:20am Psychiatric Appointment Comment: Zoom *is on waiting list for appt. sooner Therapist Name of Therapist: Unknown [employer] Name of [employer]: Angel Johns Post Discharge Appointments Primary Care Physician Name Of Family Doctor: Unknown
[2021-02-13] MEDS: LORazepam 1 MG TAB SL SCH ×3 (10:02→15:16)
--- NOTE | 2021-02-13 14:33 | Psychiatric Progress Note ---
Date of Service February 13, 2021 Impression / Recommendations Impression The patient is a 40 year old with a history of schizophrenia vs BPAD, catatonia and depression who was admitted for failure of self-care and worsening decompensation. The patient is deemed unstable and requires psychiatric hospitalization for diagnostic clarification, safety and stabilization, medication management and development of further coping skills. Diagnostically consistent with MDD with psychotic features and catatonia, r/o bipolar depression v schizoaffective disorder based on historical treatment and diagnoses. Remains lying in bed, mute, not eating, drinking nor attending to his personal care. For these reasons he was felt to be at risk of severe decompensation or without ongoing inpatient treatment and treatment for catatonia and then for MDD with psychotic features. Attended hearing for 303 commitment due to these concerns and 303 commitment was granted. It is my opinion, based on extensive review of his past records from Dr. Negron and other records of treatment history, that he is at significant risk of ongoing decompensation including malnutrition, dehydration, bed sores, infection or risk of DVT if he does not receive treatment for catatonia and begin moving and eating again. For these reasons it is my opinon that he requires medications over objection, starting with ativan 2 mg PO or IM. -303 status, expires 03/05 (1) Catatonia: (2) Bipolar disorder with depression: 02/09/2021--admitted to [facility]. Ativan 2mg SL TID ordered. Track Is&Os. Vitals BID. 02/10/2021--continue with ativan 2mg TID SL. Showing significant improving in catatonic symptoms since ativan trial last night. If he continues to walk around no need for DVT prophylaxis. Will consider if 302 needs to be converted to 303 based on progress today. 02/11/2021--continue with scheduled ativan. Less engagement today but still eating and drinking. Plan for likely 303 given his inability/reluctance to engage in treatment. Reviewed outside records. 02/12/2021--continues to refuse ativan today and won't engage with anyone nor leave his bed except to use the bathroom and to eat at night. Given some movement in the evening and to the bathroom he doesn't require DVT prophylaxis at this time but this remains a concern should he clinically worsen and will continue to monitor his nutritional and medical status closely. 02/13/2021--placed on 303 status due to ongoing decompensation due to catatonia including refusal of medication, not eating, not drinking, not communicating with anyone and lying in bed all day. Once catatonia begins to improve with treatment will aim to start latuda which helped previously. [place] to require medications over objection for ativan to treat catatonia. If catatonia does not respond quickly to ativan then will consider if DVT prophylaxis should be initiated. Risk Factors Assessment Male: Yes : Yes Do You Have Access To A Gun?: No (in supportive living enviornment, pt unable to answer ) Mental Health Diagnoses: Yes Previous Psychiatric Hospitalization: Yes Protective Factors Assessment Employed: No Interval History Identifying Information 40 yo man with history of catatonia, depression, possible BPAD vs schizophrenia admitted due to concern for catatonia and decompensation with failure of self- care. Chief Complaint Mute; lying in bed Review of Systems Sleep Information Total Hours of Sleep: 8 Sleep Comments: pt on q-15 minute checks Meal Information Percent Meal Consumed - Breakfast: 0 Percent Meal Consumed - Lunch: 0 Percent Meal Consumed - Dinner: 0 Nutrition Comment: Pt will not respond to staff. Subjective Subjective Patient was seen & assessed and interval progress reviewed with treatment team nursing and social work. He did not get out of bed yesterday for any groups nor did he eat any meals. Unclear if he is getting up to use the bathroom. Today he keeps his eyes closed during my encounter and does not respond to any questions. Physical Exam Psychiatric Orientation: alert; + uncooperative Apperance: + disheveled Eye Contact: + poor eye contact Motor Behavior: + psychomotor retardation Speech: + mute Affect: + flat affect Insight: + impaired insight Judgement: + severely impaired judgement Vital Signs (Past 24 Hours) Last Vital Signs Temp 36.9 C 02/13/21 06:00 Pulse 108 H 02/12/21 14:16 Resp 14 02/13/21 06:00 BP 121/85 02/12/21 14:16 Pulse Ox 95 02/10/21 22:38 Results & Data ([facility]) Current Inpatient Medications Current Inpatient Medications: Current Inpatient Medications Acetaminophen (Acetaminophen 325 Mg Tab) 650 mg PO Q4H PRN PRN Reason: Headache or Minor Fever Stop: 03/11/21 02:03 Al Hydrox/Mg Hydrox/Simethicone (Aluminum/Magnesium Susp 30 Ml Udc) 30 ml PO Q4H PRN PRN Reason: GI Upset Stop: 03/11/21 02:03 Bismuth Subsalicylate (Bismuth Subsalicylate Liqd 236 Ml) 15 ml PO PRN PRN PRN Reason: Loose Stool Stop: 03/11/21 02:03 Hydroxyzine HCl (Hydroxyzine Hcl 25 Mg Tab) 50 mg PO HSZ PRN PRN Reason: Insomnia Stop: 03/11/21 02:03 Hydroxyzine HCl (Hydroxyzine Hcl 25 Mg Tab) 25 mg PO Q4H PRN PRN Reason: Anxiety Stop: 03/11/21 02:03 Lorazepam (Lorazepam 1 Mg Tab) 2 mg SL TID OG Stop: 03/11/21 20:59 Last Admin: 02/13/21 14:04 Dose: Not Given Documented by: Magnesium Hydroxide (Magnesium Hydroxide Susp 30 Ml Udc) 30 ml PO DAILY PRN PRN Reason: Constipation Stop: 03/11/21 02:03 Sodium Chloride (Sodium Chloride 0.65% Na Soln 45 Ml ([place])) 1 - 2 sprays NA PRN PRN PRN Reason: Nasal Dryness/Congestion Stop: 03/11/21 02:03 Mental Health & Subst Abuse Tx Psychiatrist Name of Psychiatrist: Oniel Jacobs Psychiatrist's Date of Appointment with Psychiatrist: 03/13/21 Time of Appointment with Psychiatrist: 9:20am Psychiatric Appointment Comment: Zoom *is on waiting list for appt. sooner Therapist Name of Therapist: Unknown Title Coordinator Name of Title Coordinator: Angel Johns Post Discharge Appointments Primary Care Physician Name Of Family Doctor: Unknown
--- NOTE | 2021-02-13 14:50 | Communication Note ---
Date of Service: February 13, 2021 patient admit 02/09 with history of mood related psychosis, presentation consistent with catatonia. Patient had been refusing medications at the [facility] and upon admission was not eating/drinking or even getting out of bed to toilet. He had a robust response to Ativan earlier in stay when taking PO and has since revered to not eating/drinking. He is lying in bed and not responding to Dr. Garces or engaging in any therapies. He is now on a 303 extended involuntary commitment. I have examined the patient on several occasions during his stay in conjunction with Dr. Garces's care. He will not engage or make eye contact. He has been mute. I agree with Dr. Garces's assessment that catatonia is a mental health emergency and without intervention of medication over objection he is at signiticant risk for or seriously disability within next 30 days.
[2021-02-13] MEDS ORDERED: LORazepam 2 MG/ML VIAL (IM USE) ONE (15:26)
[2021-02-13] MEDS: LORazepam 1 MG TAB PO PRN (22:31)
[2021-02-14] MEDS: LORazepam 1 MG TAB SL SCH ×2 (09:29→14:21)
[2021-02-14] MEDS: LORazepam 2 MG/ML VIAL (IM USE) IM PRN ×2 (09:31→14:09)
--- NOTE | 2021-02-14 14:06 | Psychiatric Progress Note ---
Date of Service February 14, 2021 Impression / Recommendations Impression The patient is a 40 year old with a history of schizophrenia vs BPAD, catatonia and depression who was admitted for failure of self-care and worsening decompensation. The patient is deemed unstable and requires psychiatric hospitalization for diagnostic clarification, safety and stabilization, medication management and development of further coping skills. Diagnostically consistent with MDD with psychotic features and catatonia, r/o bipolar depression v schizoaffective disorder based on historical treatment and diagnoses. Remains lying in bed, mute, not eating, drinking nor attending to his personal care. For these reasons he was felt to be at risk of severe decompensation or without ongoing inpatient treatment and treatment for catatonia and then for MDD with psychotic features. So far no dramatic response to ativan dosing for catatonia. Given some volitional movements with nursing such as rolling over and getting up to turn off his light his symptoms may be more consistent with severe neurovegetative symptoms of depression with psychotic features. If tomorrow he is still showing no response to ativan then will plan to move toward antipsychotic treatment instead. -303 status, expires 03/05 -Plan to move him back to a [facility] tomorrow when space begins available given his worsening hygiene and likely need for privacy for air exposure to prevent skin breakdown. (1) Catatonia: (2) Bipolar disorder with depression: 02/09/2021--admitted to [facility]. Ativan 2mg SL TID ordered. Track Is&Os. Vitals BID. 02/10/2021--continue with ativan 2mg TID SL. Showing significant improving in catatonic symptoms since ativan trial last night. If he continues to walk around no need for DVT prophylaxis. Will consider if 302 needs to be converted to 303 based on progress today. 02/11/2021--continue with scheduled ativan. Less engagement today but still eating and drinking. Plan for likely 303 given his inability/reluctance to engage in treatment. Reviewed outside records. 02/12/2021--continues to refuse ativan today and won't engage with anyone nor leave his bed except to use the bathroom and to eat at night. Given some movement in the evening and to the bathroom he doesn't require DVT prophylaxis at this time but this remains a concern should he clinically worsen and will continue to monitor his nutritional and medical status closely. 02/13/2021--placed on 303 status due to ongoing decompensation due to catatonia including refusal of medication, not eating, not drinking, not communicating with anyone and lying in bed all day. Once catatonia begins to improve with treatment will aim to start latuda which helped previously. [place] to require medications over objection for ativan to treat catatonia. If catatonia does not respond quickly to ativan then will consider if DVT prophylaxis should be initiated. 02/14/2021--no significant change in behaviors with additional of scheduled ativan 2 mg BID as medication over objection. Given concern for skin breakdown consult was placed for wound nurse. Given concern for possible DVT and after discussion with hospitalist will begin lovenox 40mg subQ daily. David was able to vocalize consent for this as he remains mute and unable/unwilling to engage but explained the risks, benefits, alternatives and rationale for lovenox and that we will be offering this to him. 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 Risk Factors Assessment Male: Yes : Yes Do You Have Access To A Gun?: No (in supportive living enviornment, pt unable to answer ) Mental Health Diagnoses: Yes Previous Psychiatric Hospitalization: Yes Protective Factors Assessment Employed: No Interval History Identifying Information 40 yo man with history of catatonia, depression, possible BPAD vs schizophrenia admitted due to concern for catatonia and decompensation with failure of self- care. Chief Complaint mute. Review of Systems Sleep Information Total Hours of Sleep: 6.0 Sleep Comments: pt on q-15 minute checks Meal Information Percent Meal Consumed - Breakfast: 0 Percent Meal Consumed - Lunch: 0 Percent Meal Consumed - Dinner: 0 Nutrition Comment: Pt will not respond to staff. Subjective Subjective Chart and events of last 24 hours reviewed and discussed with multidisciplinary treatment team including nursing and social work. Last night David was discovered to have voided himself and was lying in urine requiring consistent nursing prompting and assistance to agree to shower and change into new clothes. Continues to lie in bed all day though did get up last evening to turn off the room light after nursing left it on. Minimal nutritional intake but drinking with nursing assistance. Started on medications over objection for ativan. David does not participate in interview today and remains lying in bed with his eyes closed. Spent more than 20 minutes in the care and coordination of this patient of which greater than 50% was dedicated to counseling and coordination of care. Physical Exam Psychiatric Orientation: alert; + uncooperative Apperance: + disheveled Eye Contact: + poor eye contact Motor Behavior: no abnormal motor movements and + psychomotor retardation Speech: + mute Affect: + flat affect Insight: + impaired insight Judgement: + severely impaired judgement Vital Signs (Past 24 Hours) Last Vital Signs Temp 36.8 C 02/13/21 21:37 Pulse 87 02/13/21 21:37 Resp 18 02/14/21 06:00 BP 112/80 02/13/21 21:37 Pulse Ox 96 02/13/21 21:37 Results & Data ([facility]) Current Inpatient Medications Current Inpatient Medications: Current Inpatient Medications Acetaminophen (Acetaminophen 325 Mg Tab) 650 mg PO Q4H PRN PRN Reason: Headache or Minor Fever Stop: 03/11/21 02:03 Al Hydrox/Mg Hydrox/Simethicone (Aluminum/Magnesium Susp 30 Ml Udc) 30 ml PO Q4H PRN PRN Reason: GI Upset Stop: 03/11/21 02:03 Bismuth Subsalicylate (Bismuth Subsalicylate Liqd 236 Ml) 15 ml PO PRN PRN PRN Reason: Loose Stool Stop: 03/11/21 02:03 Hydroxyzine HCl (Hydroxyzine Hcl 25 Mg Tab) 50 mg PO HSZ PRN PRN Reason: Insomnia Stop: 03/11/21 02:03 Hydroxyzine HCl (Hydroxyzine Hcl 25 Mg Tab) 25 mg PO Q4H PRN PRN Reason: Anxiety Stop: 03/11/21 02:03 Lorazepam (Lorazepam 1 Mg Tab) 2 mg SL BID@0900,1400 OG Stop: 03/15/21 14:59 Last Admin: 02/14/21 09:29 Dose: Not Given Documented by: Lorazepam (Lorazepam 2 Mg/Ml Vial (Im Use)) 2 mg IM BID@0900,1400 PRN PRN Reason: refusal of ativan SL Stop: 03/16/21 06:59 Last Admin: 02/14/21 09:31 Dose: 2 mg Documented by: Lorazepam (Lorazepam 1 Mg Tab) 2 mg PO DAILY PRN PRN Reason: Anxiety/Agitation Stop: 03/15/21 22:23 Last Admin: 02/13/21 22:31 Dose: 2 mg Documented by: Magnesium Hydroxide (Magnesium Hydroxide Susp 30 Ml Udc) 30 ml PO DAILY PRN PRN Reason: Constipation Stop: 03/11/21 02:03 Sodium Chloride (Sodium Chloride 0.65% Na Soln 45 Ml ([place])) 1 - 2 sprays NA PRN PRN PRN Reason: Nasal Dryness/Congestion Stop: 03/11/21 02:03 Mental Health & Subst Abuse Tx Psychiatrist Name of Psychiatrist: Oniel Jacobs Psychiatrist's Date of Appointment with Psychiatrist: 03/13/21 Time of Appointment with Psychiatrist: 9:20am Psychiatric Appointment Comment: Zoom *is on waiting list for appt. sooner Therapist Name of Therapist: Unknown Equip Maint Eng Name of Equip Maint Eng: Angel Johns Post Discharge Appointments Primary Care Physician Name Of Family Doctor: Unknown
[2021-02-14] MEDS: LORazepam 1 MG TAB PO PRN (17:26)
[2021-02-15] MEDS: ENOXAPARIN INJ 40 MG/0.4 ML SYR SQ SCH (09:38)
[2021-02-15] MEDS: LORazepam 1 MG TAB SL SCH ×2 (09:40→13:49)
[2021-02-15] MEDS: LORazepam 2 MG/ML VIAL (IM USE) IM PRN ×2 (09:44→13:49)
--- NOTE | 2021-02-15 15:01 | Psychiatric Progress Note ---
Date of Service February 15, 2021 Impression / Recommendations Impression The patient is a 40 year old with a history of schizophrenia vs BPAD, and depression who was admitted for failure of self-care and worsening decompensation. The patient is deemed unstable and requires psychiatric ho spitalization for diagnostic clarification, safety and stabilization, medication management and development of further coping skills. Diagnostically since receiving consistent ativan doses with serial catatonia scale ratings and nurse observations he is not felt to have catatonia. Rather there is consistent evidence of a volitional aspect to when he choses to engage and move around and this fits with what he described of not experiencing catatonia but rather being "withdrawn" when he gets depressed. Given therefore his depression with prominent neurovegetative symptoms and history of BPAD we will move to offering latuda instead. This has been effective for him in the past and he vocalized agreed with taking this again shortly after admission. Unable to have a discussion with him today about it since he was unable or chose not to engage with me. -303 status, expires 03/05 -[facility] for psychiatric condition due to poor hygiene and need for privacy for air exposure to prevent skin breakdown. (1) Catatonia: (2) Bipolar disorder with depression: 02/09/2021--admitted to [facility]. Ativan 2mg SL TID ordered. Track Is&Os. Vitals BID. 02/10/2021--continue with ativan 2mg TID SL. Showing significant improving in catatonic symptoms since ativan trial last night. If he continues to walk around no need for DVT prophylaxis. Will consider if 302 needs to be converted to 303 based on progress today. 02/11/2021--continue with scheduled ativan. Less engagement today but still eating and drinking. Plan for likely 303 given his inability/reluctance to engage in treatment. Reviewed outside records. 02/12/2021--continues to refuse ativan today and won't engage with anyone nor leave his bed except to use the bathroom and to eat at night. Given some movement in the evening and to the bathroom he doesn't require DVT prophylaxis at this time but this remains a concern should he clinically worsen and will continue to monitor his nutritional and medical status closely. 02/13/2021--placed on 303 status due to ongoing decompensation due to catatonia including refusal of medication, not eating, not drinking, not communicating with anyone and lying in bed all day. Once catatonia begins to improve with treatment will aim to start latuda which helped previously. [place] to require medications over objection for ativan to treat catatonia. If catatonia does not respond quickly to ativan then will consider if DVT prophylaxis should be initiated. 02/14/2021--no significant change in behaviors with additional of scheduled ativan 2 mg BID as medication over objection. Given concern for skin breakdown consult was placed for wound nurse. Given concern for possible DVT and after discussion with hospitalist will begin lovenox 40mg subQ daily. David was able to vocalize consent for this as he remains mute and unable/unwilling to engage but explained the risks, benefits, alternatives and rationale for lovenox and that we will be offering this to him. 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 02/15/2021--Have ruled out catatonia given inconsistent response to ativan trial, multiple observed examples of volitional movement immediately following periods of patient lying in bed and mute. Subsequent catatonia scales have been negative and patient feels that his symptoms represent withdrawn features of anxiety and depression. Given bipolar depression with neurovegetative features will start latuda. Encouragingly he is eating more and drinking more and got out of bed twice last night. Risk Factors Assessment Male: Yes : Yes Do You Have Access To A Gun?: No (in supportive living enviornment, pt unable to answer ) Mental Health Diagnoses: Yes Previous Psychiatric Hospitalization: Yes Protective Factors Assessment Employed: No Interval History Identifying Information 40 yo man with history of catatonia, depression, possible BPAD vs schizophrenia admitted due to concern for catatonia and decompensation with failure of self- care. Chief Complaint mute Review of Systems Sleep Information Total Hours of Sleep: 5.5 Sleep Comments: pt on q-15 minute checks Meal Information Percent Meal Consumed - Breakfast: 0 Percent Meal Consumed - Lunch: 0 Percent Meal Consumed - Dinner: 75 Nutrition Comment: [place] safed if pt changes his mind. Subjective Subjective Chart and events of last 24 hours reviewed and discussed with multidisciplinary treatment team including nursing and social work. Accepted po ativan last night and then got up to eat dinner in the milieu and came out of his room again around midnight and ate more snacks. Today is again withdrawn, lying in bed, responding verbally to some staff but mute with this provider. Yesterday evening he was sitting up and talked with me stating that he liked the plan to try latuda and reporting that he struggles to get out of bed and engage due to anxiety and fatigue. He also made some odd comments such as reporting that he was troubling when someone " two doors down". Reminded him that this did not occur while he has been here in the hospital. Spent more than 20 minutes in the care and coordination of this patient of which greater than 50% was dedicated to counseling and coordination of care. Physical Exam Psychiatric Orientation: alert; + uncooperative Apperance: + disheveled Eye Contact: + poor eye contact Motor Behavior: no abnormal motor movements and + psychomotor retardation Speech: + mute Affect: + flat affect Insight: + impaired insight Judgement: + severely impaired judgement Vital Signs (Past 24 Hours) Last Vital Signs Temp 36.9 C 02/15/21 06:36 Pulse 106 H 02/15/21 06:36 Resp 16 02/15/21 06:36 BP 112/74 02/15/21 06:36 Pulse Ox 96 02/14/21 20:53 Results & Data ([facility]) Current Inpatient Medications Current Inpatient Medications: Current Inpatient Medications Acetaminophen (Acetaminophen 325 Mg Tab) 650 mg PO Q4H PRN PRN Reason: Headache or Minor Fever Stop: 03/11/21 02:03 Al Hydrox/Mg Hydrox/Simethicone (Aluminum/Magnesium Susp 30 Ml Udc) 30 ml PO Q4H PRN PRN Reason: GI Upset Stop: 03/11/21 02:03 Bismuth Subsalicylate (Bismuth Subsalicylate Liqd 236 Ml) 15 ml PO PRN PRN PRN Reason: Loose Stool Stop: 03/11/21 02:03 Enoxaparin Sodium (Enoxaparin Inj 40 Mg/0.4 Ml Syr) 40 mg SQ QAM OG Stop: 03/17/21 08:59 Last Admin: 02/15/21 09:38 Dose: 40 mg Documented by: Hydroxyzine HCl (Hydroxyzine Hcl 25 Mg Tab) 50 mg PO HSZ PRN PRN Reason: Insomnia Stop: 03/11/21 02:03 Hydroxyzine HCl (Hydroxyzine Hcl 25 Mg Tab) 25 mg PO Q4H PRN PRN Reason: Anxiety Stop: 03/11/21 02:03 Lorazepam (Lorazepam 1 Mg Tab) 2 mg SL BID@0900,1400 OG Stop: 03/15/21 14:59 Last Admin: 02/15/21 13:49 Dose: Not Given Documented by: Lorazepam (Lorazepam 2 Mg/Ml Vial (Im Use)) 2 mg IM BID@0900,1400 PRN PRN Reason: refusal of ativan SL Stop: 03/16/21 06:59 Last Admin: 02/15/21 13:49 Dose: 2 mg Documented by: Lorazepam (Lorazepam 1 Mg Tab) 2 mg PO DAILY PRN PRN Reason: Anxiety/Agitation Stop: 03/15/21 22:23 Last Admin: 02/14/21 17:26 Dose: 2 mg Documented by: Magnesium Hydroxide (Magnesium Hydroxide Susp 30 Ml Udc) 30 ml PO DAILY PRN PRN Reason: Constipation Stop: 03/11/21 02:03 Sodium Chloride (Sodium Chloride 0.65% Na Soln 45 Ml ([place])) 1 - 2 sprays NA PRN PRN PRN Reason: Nasal Dryness/Congestion Stop: 03/11/21 02:03 Mental Health & Subst Abuse Tx Psychiatrist Name of Psychiatrist: Oniel Jacobs Psychiatrist's Date of Appointment with Psychiatrist: 03/13/21 Time of Appointment with Psychiatrist: 9:20am Psychiatric Appointment Comment: Zoom *is on waiting list for appt. sooner Therapist Name of Therapist: Unknown Tanbark Laborer Name of Tanbark Laborer: Angel Johns Post Discharge Appointments Primary Care Physician Name Of Family Doctor: Unknown
[2021-02-15] MEDS: LORazepam 1 MG TAB PO PRN (17:51)
[2021-02-16] MEDS ORDERED: LORazepam 1 MG TAB SL SCH (09:00)
[2021-02-16] MEDS ORDERED: OLANZapine 10 MG TAB PO PRN (09:04)
[2021-02-16] MEDS ORDERED: LURASIDONE HCL 40 MG TAB PO SCH ×2 (09:15→12:00)
[2021-02-16] MEDS ORDERED: OLANZapine 10 MG/2.1 ML SDV IM ONE (10:11)
[2021-02-16] MEDS: ENOXAPARIN INJ 40 MG/0.4 ML SYR SQ SCH (10:16)
--- NOTE | 2021-02-16 11:53 | Psychiatric Progress Note ---
Date of Service February 16, 2021 Impression / Recommendations Impression The patient is a 40 year old with a history of schizophrenia vs BPAD, and depression who was admitted for failure of self-care and worsening decompensation. The patient is deemed unstable and requires psychiatric ho spitalization for diagnostic clarification, safety and stabilization, medication management and development of further coping skills. Initially focussed on Ativan dosing for catatonia but no consistent response. Will focus on antipsychotic medication over objection and readdress possible ECT or antidepressant when improved. -303 status, expires 03/05 -[facility] for psychiatric condition due to poor hygiene and need for privacy for air exposure to prevent skin breakdown. (1) Bipolar disorder with depression: 02/16/21--Reviewed care by Dr. Garces in italics. will d/c IM Ativan in favor of Zyprexa IM for failure to take Latuda. Does take Lorazepam prn PO, adjust dose and frequency and monitor use. Will repeat labs and PO intake so variable and hard to track. 02/09/2021--admitted to [facility]. Ativan 2mg SL TID ordered. Track Is&Os. Vitals BID. 02/10/2021--continue with ativan 2mg TID SL. Showing significant improving in catatonic symptoms since ativan trial last night. If he continues to walk around no need for DVT prophylaxis. Will consider if 302 needs to be converted to 303 based on progress today. 02/11/2021--continue with scheduled ativan. Less engagement today but still eating and drinking. Plan for likely 303 given his inability/reluctance to engage in treatment. Reviewed outside records. 02/12/2021--continues to refuse ativan today and won't engage with anyone nor leave his bed except to use the bathroom and to eat at night. Given some movement in the evening and to the bathroom he doesn't require DVT prophylaxis at this time but this remains a concern should he clinically worsen and will continue to monitor his nutritional and medical status closely. 02/13/2021--placed on 303 status due to ongoing decompensation due to catatonia including refusal of medication, not eating, not drinking, not communicating with anyone and lying in bed all day. Once catatonia begins to improve with treatment will aim to start latuda which helped previously. [place] to require medications over objection for ativan to treat catatonia. If catatonia does not respond quickly to ativan then will consider if DVT prophylaxis should be initiated. 02/14/2021--no significant change in behaviors with additional of scheduled ativan 2 mg BID as medication over objection. Given concern for skin breakdown consult was placed for wound nurse. Given concern for possible DVT and after discussion with hospitalist will begin lovenox 40mg subQ daily. David was able to vocalize consent for this as he remains mute and unable/unwilling to engage but explained the risks, benefits, alternatives and rationale for lovenox and that we will be offering this to him. 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 02/15/2021--Have ruled out catatonia given inconsistent response to ativan trial, multiple observed examples of volitional movement immediately following periods of patient lying in bed and mute. Subsequent catatonia scales have been negative and patient feels that his symptoms represent withdrawn features of anxiety and depression. Given bipolar depression with neurovegetative features will start latuda. Encouragingly he is eating more and drinking more and got out of bed twice last night. Risk Factors Assessment Male: Yes : Yes Do You Have Access To A Gun?: No (in supportive living enviornment, pt unable to answer ) Mental Health Diagnoses: Yes Previous Psychiatric Hospitalization: Yes Protective Factors Assessment Employed: No Interval History Identifying Information 40 yo man with history of catatonia, depression, possible BPAD vs schizophrenia admitted due to concern for catatonia and decompensation with failure of self- care at [facility]. Admitted on 302, now 303. Chief Complaint mute Review of Systems Sleep Information Total Hours of Sleep: 7.5 Sleep Comments: pt on q-15 minute checks Meal Information Percent Meal Consumed - Breakfast: 0 Percent Meal Consumed - Lunch: 0 Percent Meal Consumed - Dinner: 100 Subjective Subjective Patient was seen & assessed and interval progress reviewed with nursing and social work. patient will not open eyes or make eye contact. refused Latuda this am, given IM Zyprexa 10 mg as ordered for meds over objection. On Lovenox for DVT prophylaxis. Does come out in even and overnight to request prns and eat. On day shift will merely cover head with blanket, winced when I moved it to attempt exam. No posturing or waxy flexibility noted. Staff report some delusional statements last pm, belief his spine was crushed by doors when repositioned and that his pelvis was in another room. Physical Exam Psychiatric Orientation: alert; + uncooperative Apperance: + disheveled Eye Contact: + poor eye contact Motor Behavior: no abnormal motor movements and + psychomotor retardation Speech: + mute Affect: + flat affect Thought Process: + thought process not goal directed Thought Content: + paranoid Insight: + impaired insight Judgement: + severely impaired judgement Vital Signs (Past 24 Hours) Last Vital Signs Temp 36.8 C 02/15/21 21:14 Pulse 102 H 02/15/21 21:14 Resp 18 02/15/21 21:14 BP 106/75 02/15/21 21:14 Pulse Ox 96 02/14/21 20:53 Results & Data ([facility]) Current Inpatient Medications Current Inpatient Medications: Current Inpatient Medications Acetaminophen (Acetaminophen 325 Mg Tab) 650 mg PO Q4H PRN PRN Reason: Headache or Minor Fever Stop: 03/11/21 02:03 Last Admin: 02/15/21 18:44 Dose: 650 mg Documented by: Al Hydrox/Mg Hydrox/Simethicone (Aluminum/Magnesium Susp 30 Ml Udc) 30 ml PO Q4H PRN PRN Reason: GI Upset Stop: 03/11/21 02:03 Bismuth Subsalicylate (Bismuth Subsalicylate Liqd 236 Ml) 15 ml PO PRN PRN PRN Reason: Loose Stool Stop: 03/11/21 02:03 Enoxaparin Sodium (Enoxaparin Inj 40 Mg/0.4 Ml Syr) 40 mg SQ QAM OG Stop: 03/17/21 08:59 Last Admin: 02/16/21 10:16 Dose: 40 mg Documented by: Hydroxyzine HCl (Hydroxyzine Hcl 25 Mg Tab) 50 mg PO HSZ PRN PRN Reason: Insomnia Stop: 03/11/21 02:03 Hydroxyzine HCl (Hydroxyzine Hcl 25 Mg Tab) 25 mg PO Q4H PRN PRN Reason: Anxiety Stop: 03/11/21 02:03 Lorazepam (Lorazepam 1 Mg Tab) 2 mg PO DAILY PRN PRN Reason: Anxiety/Agitation Stop: 03/15/21 22:23 Last Admin: 02/15/21 17:51 Dose: 2 mg Documented by: Lurasidone HCl (Lurasidone Hcl 40 Mg Tab) 40 mg PO QAM OG Stop: 03/18/21 09:14 Last Admin: 02/16/21 10:31 Dose: Not Given Documented by: Magnesium Hydroxide (Magnesium Hydroxide Susp 30 Ml Udc) 30 ml PO DAILY PRN PRN Reason: Constipation Stop: 03/11/21 02:03 Olanzapine (Olanzapine 10 Mg/2.1 Ml Sdv) 10 mg IM DAILY PRN PRN Reason: refusal of Latuda Stop: 03/18/21 09:39 Sodium Chloride (Sodium Chloride 0.65% Na Soln 45 Ml ([place])) 1 - 2 sprays NA PRN PRN PRN Reason: Nasal Dryness/Congestion Stop: 03/11/21 02:03 Mental Health & Subst Abuse Tx Psychiatrist Name of Psychiatrist: Oniel Jacobs Psychiatrist's Date of Appointment with Psychiatrist: 03/13/21 Time of Appointment with Psychiatrist: 9:20am Psychiatric Appointment Comment: [place]oom *is on waiting list for appt. sooner Therapist Name of Therapist: Unknown Teacher Lip Reading Name of Teacher Lip Reading: Angel Johns Post Discharge Appointments Primary Care Physician Name Of Family Doctor: Unknown
[2021-02-17 10:00] LABS: BUN Creatinine Ratio 11.9 (10-20); Calcium 8.6 mg/dl (8.5-10.1); Creatinine Clr Calc Pharmacy 125.2 ml/min; Est GFR (African American) 100.1 ml/min; Est GFR (Non-African American) 86.4 ml/min; Potassium 3.7 mmol/L (3.5-5.1)
--- NOTE | 2021-02-17 13:15 | Psychiatric Progress Note ---
Date of Service February 17, 2021 Impression / Recommendations Impression The patient is a 40 year old with a history of schizophrenia vs BPAD, and depression who was admitted for failure of self-care and worsening decompensation. The patient is deemed unstable and requires psychiatric h ospitalization for diagnostic clarification, safety and stabilization, medication management and development of further coping skills. Initially focussed on Ativan dosing for catatonia but no consistent response. Will focus on antipsychotic medication over objection and readdress possible ECT or antidepressant when improved. -303 status, expires 03/05 -[facility] for psychiatric condition due to poor hygiene and need for privacy for air exposure to prevent skin breakdown. 02/17/21--unchanged, has only had 1 dose of Zyprexa over objection. (1) Bipolar disorder with depression: 02/17/21--lytes, Bun/Cr improved; given sleep phase shift desirable to shift antipsychotic to pm meal with IM Zyprexa for refusal. Bedside EEG likely poor quality/low yeild but consider if no improvement. 02/16/21--Reviewed care by Dr. Garces in italics. will d/c IM Ativan in favor of Zyprexa IM for failure to take Latuda. Does take Lorazepam prn PO, adjust dose and frequency and monitor use. Will repeat labs and PO intake so variable and hard to track. 02/09/2021--admitted to [facility]. Ativan 2mg SL TID ordered. Track Is&Os. Vitals BID. 02/10/2021--continue with ativan 2mg TID SL. Showing significant improving in catatonic symptoms since ativan trial last night. If he continues to walk around no need for DVT prophylaxis. Will consider if 302 needs to be converted to 303 based on progress today. 02/11/2021--continue with scheduled ativan. Less engagement today but still eating and drinking. Plan for likely 303 given his inability/reluctance to eng age in treatment. Reviewed outside records. 02/12/2021--continues to refuse ativan today and won't engage with anyone nor leave his bed except to use the bathroom and to eat at night. Given some move ment in the evening and to the bathroom he doesn't require DVT prophylaxis at this time but this remains a concern should he clinically worsen and will continue to monitor his nutritional and medical status closely. 02/13/2021--placed on 303 status due to ongoing decompensation due to catatonia including refusal of medication, not eating, not drinking, not communicating with anyone and lying in bed all day. Once catatonia begins to improve with treatment will aim to start latuda which helped previously. [place] to require medications over objection for ativan to treat catatonia. If catatonia does not respond quickly to ativan then will consider if DVT prophylaxis should be initiated. 02/14/2021--no significant change in behaviors with additional of scheduled ativan 2 mg BID as medication over objection. Given concern for skin breakdown consult was placed for wound nurse. Given concern for possible DVT and after discussion with hospitalist will begin lovenox 40mg subQ daily. David was able to vocalize consent for this as he remains mute and unable/unwilling to engage but explained the risks, benefits, alternatives and rationale for lovenox and that we will be offering this to him. 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 02/15/2021--Have ruled out catatonia given inconsistent response to ativan trial, multiple observed examples of volitional movement immediately following periods of patient lying in bed and mute. Subsequent catatonia scales have been negative and patient feels that his symptoms represent withdrawn features of anxiety and depression. Given bipolar depression with neurovegetative features will start latuda. Encouragingly he is eating more and drinking more and got out of bed twice last night. Risk Factors Assessment Male: Yes : Yes Do You Have Access To A Gun?: No (in supportive living enviornment, pt unable to answer ) Mental Health Diagnoses: Yes Previous Psychiatric Hospitalization: Yes Protective Factors Assessment Employed: No Interval History Identifying Information 40 yo man with history of catatonia, depression, possible BPAD vs schizophrenia admitted due to concern for catatonia and decompensation with failure of self- care at [facility]. Admitted on 302, now 303. Chief Complaint refuses to open eyes Review of Systems Sleep Information Total Hours of Sleep: 5.5 Sleep Comments: pt on q-15 minute checks Meal Information Percent Meal Consumed - Breakfast: 0 Percent Meal Consumed - Lunch: 0 Percent Meal Consumed - Dinner: 80 Subjective Subjective Patient was seen & assessed and interval progress reviewed with nursing and social work. Staff report ate some dinner with much encouragement, minimal time up out of bed to chair and to toilet. Did not resist am labs. Physical Exam Psychiatric exam limited by poor patient cooperation, appears aware of presence as will wince but won't engage, disorganized in pm interactions with staff. Patient is overweight but no change in leg swelling/etc. Vital Signs (Past 24 Hours) Last Vital Signs Temp 36.3 C L 02/16/21 21:31 Pulse 90 02/16/21 22:00 Resp 16 02/16/21 22:00 BP 98/68 L 02/16/21 22:00 Pulse Ox 96 02/14/21 20:53 Results & Data ([facility]) Laboratory Results Laboratory Results - last 24 hr 02/17/21 09:12 Sodium 140 Potassium 3.7 Chloride 108 H Carbon Dioxide 26 Anion Gap 6.0 BUN 13 Creatinine 1.07 Est Cr Clr Drug Dosing 125.2 Est GFR ( Amer) 100.1 Est GFR (Non-Af Amer) 86.4 BUN/Creatinine Ratio 11.9 Glucose 108 H Calcium 8.6 Triglycerides 93 Cholesterol 135 LDL Cholesterol, Calc 85 VLDL Cholesterol, Calc 19 HDL Cholesterol 31 Cholesterol/HDL Ratio 4 Specimen Hemolysis Current Inpatient Medications Current Inpatient Medications: Current Inpatient Medications Acetaminophen (Acetaminophen 325 Mg Tab) 650 mg PO Q4H PRN PRN Reason: Headache or Minor Fever Stop: 03/11/21 02:03 Last Admin: 02/15/21 18:44 Dose: 650 mg Documented by: Al Hydrox/Mg Hydrox/Simethicone (Aluminum/Magnesium Susp 30 Ml Udc) 30 ml PO Q4H PRN PRN Reason: GI Upset Stop: 03/11/21 02:03 Bismuth Subsalicylate (Bismuth Subsalicylate Liqd 236 Ml) 15 ml PO PRN PRN PRN Reason: Loose Stool Stop: 03/11/21 02:03 Enoxaparin Sodium (Enoxaparin Inj 40 Mg/0.4 Ml Syr) 40 mg SQ QDD OG Stop: 03/19/21 17:44 Hydroxyzine HCl (Hydroxyzine Hcl 25 Mg Tab) 50 mg PO HSZ PRN PRN Reason: Insomnia Stop: 03/11/21 02:03 Hydroxyzine HCl (Hydroxyzine Hcl 25 Mg Tab) 25 mg PO Q4H PRN PRN Reason: Anxiety Stop: 03/11/21 02:03 Lorazepam (Lorazepam 1 Mg Tab) 1 mg PO Q6 PRN PRN Reason: Anxiety/Agitation Stop: 03/15/21 22:23 Lurasidone HCl (Lurasidone Hcl 40 Mg Tab) 40 mg PO QDD OG Stop: 03/19/21 17:44 Magnesium Hydroxide (Magnesium Hydroxide Susp 30 Ml Udc) 30 ml PO DAILY PRN PRN Reason: Constipation Stop: 03/11/21 02:03 Olanzapine (Olanzapine 10 Mg/2.1 Ml Sdv) 10 mg IM DAILY PRN PRN Reason: refusal of Latuda Stop: 03/18/21 09:39 Sodium Chloride (Sodium Chloride 0.65% Na Soln 45 Ml ([place])) 1 - 2 sprays NA PRN PRN PRN Reason: Nasal Dryness/Congestion Stop: 03/11/21 02:03 Mental Health & Subst Abuse Tx Psychiatrist Name of Psychiatrist: Oniel Jacobs Psychiatrist's Date of Appointment with Psychiatrist: 03/13/21 Time of Appointment with Psychiatrist: 9:20am Psychiatric Appointment Comment: Zoom *is on waiting list for appt. sooner Therapist Name of Therapist: Unknown Munitions Worker Name of Munitions Worker: Angel Johns Post Discharge Appointments Primary Care Physician Name Of Family Doctor: Unknown
[2021-02-17] MEDS: LURASIDONE HCL 40 MG TAB PO SCH (20:18)
[2021-02-17] MEDS ORDERED: OLANZapine 10 MG/2.1 ML SDV IM ONE (21:50)
[2021-02-17] MEDS: ENOXAPARIN INJ 40 MG/0.4 ML SYR SQ SCH (21:50)
[2021-02-17] MEDS: OLANZapine 10 MG/2.1 ML SDV IM PRN (21:59)
--- NOTE | 2021-02-18 14:08 | Psychiatric Progress Note ---
Date of Service February 18, 2021 Impression / Recommendations Impression The patient is a 40 year old with a history of schizophrenia vs BPAD, and depression who was admitted for failure of self-care and worsening decompensation. The patient is deemed unstable and requires psychiatric h ospitalization for diagnostic clarification, safety and stabilization, medication management and development of further coping skills. Initially focussed on Ativan dosing for catatonia but no consistent response. Will focus on antipsychotic medication over objection and readdress possible ECT or antidepressant when improved. -303 status, expires 03/05 -[facility] for psychiatric condition due to poor hygiene and need for privacy for air exposure to prevent skin breakdown. 02/18/21--poor PO yesterday but labs nl, remains very resistant to interventions. Plan: continue current meds and treatment plan. Risk Factors Assessment Male: Yes : Yes Do You Have Access To A Gun?: No (in supportive living enviornment, pt unable to answer ) Mental Health Diagnoses: Yes Previous Psychiatric Hospitalization: Yes Protective Factors Assessment Employed: No Interval History Identifying Information 40 yo man with history of catatonia, depression, possible BPAD vs schizophrenia admitted due to concern for catatonia and decompensation with failure of self- care at [facility]. Admitted on 302, now 303. Chief Complaint remains mute Review of Systems Sleep Information Total Hours of Sleep: 6.5 Sleep Comments: pt on q-15 minute checks Meal Information Percent Meal Consumed - Breakfast: 0 Percent Meal Consumed - Lunch: 0 Percent Meal Consumed - Dinner: 0 Nutrition Comment: Three staff encouraged pt to eat dinner. Staff assisted pt in ambulating to the day room to eat. Pt did not speak and refused dinner. Subjective Subjective Patient was seen & assessed and interval progress reviewed with treatment team. Patient was OOB to chair last pm for a few hours but did not eat. Received IM for med over objection and Lovenox. No incontinence. Physical Exam Psychiatric patient appeared to notice me entering room, remains in bed but did follow simple command to open his mouth, tolerated checking PERRL. no muscle stiffness. No posturing. would not vocalize or nod head. Vital Signs (Past 24 Hours) Last Vital Signs Temp 36.7 C 02/17/21 20:10 Pulse 102 H 02/17/21 22:18 Resp 18 02/17/21 22:18 BP 122/86 02/17/21 22:18 Pulse Ox 96 10/07/21 20:53 Results & Data ([facility]) Current Inpatient Medications Current Inpatient Medications: Current Inpatient Medications Acetaminophen (Acetaminophen 325 Mg Tab) 650 mg PO Q4H PRN PRN Reason: Headache or Minor Fever Stop: 03/11/21 02:03 Last Admin: 02/15/21 18:44 Dose: 650 mg Documented by: Al Hydrox/Mg Hydrox/Simethicone (Aluminum/Magnesium Susp 30 Ml Udc) 30 ml PO Q4H PRN PRN Reason: GI Upset Stop: 03/11/21 02:03 Bismuth Subsalicylate (Bismuth Subsalicylate Liqd 236 Ml) 15 ml PO PRN PRN PRN Reason: Loose Stool Stop: 03/11/21 02:03 Enoxaparin Sodium (Enoxaparin Inj 40 Mg/0.4 Ml Syr) 40 mg SQ QDD OG Stop: 03/19/21 17:44 Last Admin: 02/17/21 21:50 Dose: 40 mg Documented by: Hydroxyzine HCl (Hydroxyzine Hcl 25 Mg Tab) 50 mg PO HSZ PRN PRN Reason: Insomnia Stop: 03/11/21 02:03 Hydroxyzine HCl (Hydroxyzine Hcl 25 Mg Tab) 25 mg PO Q4H PRN PRN Reason: Anxiety Stop: 03/11/21 02:03 Lorazepam (Lorazepam 1 Mg Tab) 1 mg PO Q6 PRN PRN Reason: Anxiety/Agitation Stop: 03/15/21 22:23 Lurasidone HCl (Lurasidone Hcl 40 Mg Tab) 40 mg PO QDD OG Stop: 03/19/21 17:44 Last Admin: 02/17/21 20:18 Dose: Not Given Documented by: Magnesium Hydroxide (Magnesium Hydroxide Susp 30 Ml Udc) 30 ml PO DAILY PRN PRN Reason: Constipation Stop: 03/11/21 02:03 Olanzapine (Olanzapine 10 Mg/2.1 Ml Sdv) 10 mg IM DAILY PRN PRN Reason: refusal of Latuda Stop: 03/18/21 09:39 Last Admin: 02/17/21 21:59 Dose: 10 mg Documented by: Sodium Chloride (Sodium Chloride 0.65% Na Soln 45 Ml ([place])) 1 - 2 sprays NA PRN PRN PRN Reason: Nasal Dryness/Congestion Stop: 03/11/21 02:03 Mental Health & Subst Abuse Tx Psychiatrist Name of Psychiatrist: Oniel Jacobs Psychiatrist's Date of Appointment with Psychiatrist: 03/13/21 Time of Appointment with Psychiatrist: 9:20am Psychiatric Appointment Comment: Zoom *is on waiting list for appt. sooner Therapist Name of Therapist: Unknown Receiving Associate Name of Receiving Associate: Angel Johns Post Discharge Appointments Primary Care Physician Name Of Family Doctor: Unknown
[2021-02-18] MEDS: LURASIDONE HCL 40 MG TAB PO SCH (17:23)
[2021-02-18] MEDS: ENOXAPARIN INJ 40 MG/0.4 ML SYR SQ SCH (17:43)
[2021-02-18] MEDS: OLANZapine 10 MG/2.1 ML SDV IM PRN (17:43)
--- NOTE | 2021-02-19 14:18 | Psychiatric Progress Note ---
Date of Service February 19, 2021 Impression / Recommendations Impression The patient is a 40 year old with a history of schizophrenia vs BPAD, and depression who was admitted for failure of self-care and worsening decompensation. The patient is deemed unstable and requires psychiatric h ospitalization for diagnostic clarification, safety and stabilization, medication management and development of further coping skills. Initially focussed on Ativan dosing for catatonia but no consistent response. Will focus on antipsychotic medication over objection and readdress possible ECT or antidepressant when improved. -303 status, expires 03/05 -[facility] for psychiatric condition due to poor hygiene and need for privacy for air exposure to prevent skin breakdown. 02/19/21--poor PO and no meaninful OOB time yesterday. Patient is clearly depressed, unable to engage in care, not responding much at all to IM Zyprexa and is even more resistant to PO. I do not believe he will take even liquid consistently. I would typically refer for ECT but he is unable to consent. (1) Bipolar disorder with depression: 02/19/21--non-formulary request for Emsam patch. Hasn't taken antidepressants for at least 6 weeks. Would reconsider current med doses when this becomes available. without antidepressant he will continue to decompensate medically and is at significant risk of further decompensation. 02/17/21--lytes, Bun/Cr improved; given sleep phase shift desirable to shift antipsychotic to pm meal with IM Zyprexa for refusal. Bedside EEG likely poor quality/low yeild but consider if no improvement. 02/16/21--Reviewed care by Dr. Garces in italics. will d/c IM Ativan in favor of Zyprexa IM for failure to take Latuda. Does take Lorazepam prn PO, adjust dose and frequency and monitor use. Will repeat labs and PO intake so variable and hard to track. 02/09/2021--admitted to [facility]. Ativan 2mg SL TID ordered. Track Is&Os. Vitals BID. 02/10/2021--continue with ativan 2mg TID SL. Showing significant improving in catatonic symptoms since ativan trial last night. If he continues to walk around no need for DVT prophylaxis. Will consider if 302 needs to be converted to 303 based on progress today. 02/11/2021--continue with scheduled ativan. Less engagement today but still eating and drinking. Plan for likely 303 given his inability/reluctance to engage in treatment. Reviewed outside records. 02/12/2021--continues to refuse ativan today and won't engage with anyone nor leave his bed except to use the bathroom and to eat at night. Given some movement in the evening and to the bathroom he doesn't require DVT prophylaxis at this time but this remains a concern should he clinically worsen and will continue to monitor his nutritional and medical status closely. 02/13/2021--placed on 303 status due to ongoing decompensation due to catatonia including refusal of medication, not eating, not drinking, not communicating with anyone and lying in bed all day. Once catatonia begins to improve with treatment will aim to start latuda which helped previously. [place] to require medications over objection for ativan to treat catatonia. If catatonia does not respond quickly to ativan then will consider if DVT prophylaxis should be initiated. 02/14/2021--no significant change in behaviors with additional of scheduled ativan 2 mg BID as medication over objection. Given concern for skin breakdown consult was placed for wound nurse. Given concern for possible DVT and after discussion with hospitalist will begin lovenox 40mg subQ daily. David was able to vocalize consent for this as he remains mute and unable/unwilling to engage but explained the risks, benefits, alternatives and rationale for lovenox and that we will be offering this to him. 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 02/15/2021--Have ruled out catatonia given inconsistent response to ativan trial, multiple observed examples of volitional movement immediately following periods of patient lying in bed and mute. Subsequent catatonia scales have been negative and patient feels that his symptoms represent withdrawn features of anxiety and depression. Given bipolar depression with neurovegetative features will start latuda. Encouragingly he is eating more and drinking more and got out of bed twice last night. Risk Factors Assessment Male: Yes : Yes Do You Have Access To A Gun?: No (in supportive living enviornment, pt unable to answer ) Mental Health Diagnoses: Yes Previous Psychiatric Hospitalization: Yes Protective Factors Assessment Employed: No Interval History Identifying Information 40 yo man with history of catatonia, depression, possible BPAD vs schizophrenia admitted due to concern for catatonia and decompensation with failure of self- care at [facility]. Admitted on 302, now 303. Chief Complaint not eating for 2 days Review of Systems Sleep Information Total Hours of Sleep: 7.25 Sleep Comments: pt observed moving position x2 during the night. pt on q-15 minute checks Meal Information Percent Meal Consumed - Breakfast: 0 Percent Meal Consumed - Lunch: 0 Percent Meal Consumed - Dinner: 0 Nutrition Comment: Three staff encouraged pt to eat dinner. Staff assisted pt in ambulating to the day room to eat. Pt did not speak and refused dinner. Subjective Subjective Patient was seen & assessed and interval progress reviewed with nursing and sw. Did not get out of bed for evening shift, urine was noted in the toilet. Discussed utilizing bed alarm to determine when patient is ambulating since otherwise in bed. Opens eyes as if to acknowledge presence but won't communicate. This afternoon staff found soaked in urine and did assist patient in bathing with much encouragement. Took some fluid. Physical Exam Psychiatric Orientation: alert; + uncooperative Apperance: + disheveled Eye Contact: + poor eye contact Motor Behavior: no abnormal motor movements and + psychomotor retardation Speech: + mute Affect: + flat affect Thought Process: + thought blocking Vital Signs (Past 24 Hours) Last Vital Signs Temp 35.7 C L 02/18/21 20:00 Pulse 106 H 02/18/21 14:26 Resp 18 02/17/21 22:18 BP 125/82 02/18/21 14:26 Pulse Ox 96 02/14/21 20:53 Results & Data ([facility]) Current Inpatient Medications Current Inpatient Medications: Current Inpatient Medications Acetaminophen (Acetaminophen 325 Mg Tab) 650 mg PO Q4H PRN PRN Reason: Headache or Minor Fever Stop: 03/11/21 02:03 Last Admin: 02/15/21 18:44 Dose: 650 mg Documented by: Al Hydrox/Mg Hydrox/Simethicone (Aluminum/Magnesium Susp 30 Ml Udc) 30 ml PO Q4H PRN PRN Reason: GI Upset Stop: 03/11/21 02:03 Bismuth Subsalicylate (Bismuth Subsalicylate Liqd 236 Ml) 15 ml PO PRN PRN PRN Reason: Loose Stool Stop: 03/11/21 02:03 Enoxaparin Sodium (Enoxaparin Inj 40 Mg/0.4 Ml Syr) 40 mg SQ QDD OG Stop: 03/19/21 17:44 Last Admin: 02/18/21 17:43 Dose: 40 mg Documented by: Hydroxyzine HCl (Hydroxyzine Hcl 25 Mg Tab) 50 mg PO HSZ PRN PRN Reason: Insomnia Stop: 03/11/21 02:03 Hydroxyzine HCl (Hydroxyzine Hcl 25 Mg Tab) 25 mg PO Q4H PRN PRN Reason: Anxiety Stop: 03/11/21 02:03 Lorazepam (Lorazepam 1 Mg Tab) 1 mg PO Q6 PRN PRN Reason: Anxiety/Agitation Stop: 03/15/21 22:23 Lurasidone HCl (Lurasidone Hcl 40 Mg Tab) 40 mg PO QDD OG Stop: 03/19/21 17:44 Last Admin: 02/18/21 17:23 Dose: Not Given Documented by: Magnesium Hydroxide (Magnesium Hydroxide Susp 30 Ml Udc) 30 ml PO DAILY PRN PRN Reason: Constipation Stop: 03/11/21 02:03 Olanzapine (Olanzapine 10 Mg/2.1 Ml Sdv) 10 mg IM DAILY PRN PRN Reason: refusal of Latuda Stop: 03/18/21 09:39 Last Admin: 02/18/21 17:43 Dose: 10 mg Documented by: Sodium Chloride (Sodium Chloride 0.65% Na Soln 45 Ml ([place])) 1 - 2 sprays NA PRN PRN PRN Reason: Nasal Dryness/Congestion Stop: 03/11/21 02:03 Mental Health & Subst Abuse Tx Psychiatrist Name of Psychiatrist: Oniel Jacobs Psychiatrist's Date of Appointment with Psychiatrist: 03/13/21 Time of Appointment with Psychiatrist: 9:20am Psychiatric Appointment Comment: Zoom *is on waiting list for appt. sooner Therapist Name of Therapist: Unknown Bead Trimmer Name of Bead Trimmer: Angel Johns Post Discharge Appointments Primary Care Physician Name Of Family Doctor: Unknown
[2021-02-19] MEDS: LURASIDONE HCL 40 MG TAB PO SCH (17:33)
[2021-02-19] MEDS: ENOXAPARIN INJ 40 MG/0.4 ML SYR SQ SCH (17:34)
[2021-02-19] MEDS: OLANZapine 10 MG/2.1 ML SDV IM PRN (17:35)
--- NOTE | 2021-02-20 14:20 | Psychiatric Progress Note ---
Date of Service February 20, 2021 Impression / Recommendations Impression The patient is a 40 year old with a history of schizophrenia vs BPAD, and depression who was admitted for failure of self-care and worsening decompensation. The patient is deemed unstable and requires psychiatric h ospitalization for diagnostic clarification, safety and stabilization, medication management and development of further coping skills. Initially focussed on Ativan dosing for catatonia but no consistent response. Will focus on antipsychotic medication over objection and readdress possible ECT or antidepressant when improved. -303 status, expires 03/05 -[facility] for psychiatric condition due to severe depression and presumed psychosis, incontinence and need for staff assistance with ADLS 02/20/21--inability to care for self, mute, poor PO, barely ambulating Plan: await patch trial. repeat labs in am. (1) Bipolar disorder with depression: Risk Factors Assessment Male: Yes : Yes Do You Have Access To A Gun?: No (in supportive living enviornment, pt unable to answer ) Mental Health Diagnoses: Yes Previous Psychiatric Hospitalization: Yes Protective Factors Assessment Employed: No Interval History Identifying Information 40 yo man with history of catatonia, depression, possible BPAD vs schizophrenia admitted due to concern for catatonia and decompensation with failure of self- care at [facility]. Admitted on 302, now 303. Chief Complaint remains mute Review of Systems Sleep Information Total Hours of Sleep: 6.5 Sleep Comments: pt on q-15 minute checks Meal Information Percent Meal Consumed - Breakfast: 0 Percent Meal Consumed - Lunch: 0 Percent Meal Consumed - Dinner: 0 Nutrition Comment: Three staff encouraged pt to eat dinner. Staff assisted pt in ambulating to the day room to eat. Pt did not speak and refused dinner. Subjective Subjective Patient was seen & assessed and interval progress reviewed with treatment team. better PO intake of fluids and ate some snacks, still not conversing with staff. tried to utilize bed alarm to track his getting out of bed but trial halted by his incontinence/need for staff to to clean patient and changing bed. He does have some skin excoriations on his bottom. Unable to meet with [facility] today due to severity of mental health condition and COVID restrictions. EMSAM patch requested from pharmacy. Physical Exam Psychiatric uncooperative, averts gaze, mute Vital Signs (Past 24 Hours) Last Vital Signs Temp 36.9 C 02/19/21 20:00 Pulse 92 H 02/20/21 06:43 Resp 16 02/20/21 06:43 BP 129/82 02/20/21 06:43 Pulse Ox 96 02/14/21 20:53 Results & Data ([facility]) Current Inpatient Medications Current Inpatient Medications: Current Inpatient Medications Acetaminophen (Acetaminophen 325 Mg Tab) 650 mg PO Q4H PRN PRN Reason: Headache or Minor Fever Stop: 03/11/21 02:03 Last Admin: 02/15/21 18:44 Dose: 650 mg Documented by: Al Hydrox/Mg Hydrox/Simethicone (Aluminum/Magnesium Susp 30 Ml Udc) 30 ml PO Q4H PRN PRN Reason: GI Upset Stop: 03/11/21 02:03 Bismuth Subsalicylate (Bismuth Subsalicylate Liqd 236 Ml) 15 ml PO PRN PRN PRN Reason: Loose Stool Stop: 03/11/21 02:03 Enoxaparin Sodium (Enoxaparin Inj 40 Mg/0.4 Ml Syr) 40 mg SQ QDD [facility] Stop: 03/19/21 17:44 Last Admin: 02/19/21 17:34 Dose: 40 mg Documented by: Hydroxyzine HCl (Hydroxyzine Hcl 25 Mg Tab) 50 mg PO HSZ PRN PRN Reason: Insomnia Stop: 03/11/21 02:03 Hydroxyzine HCl (Hydroxyzine Hcl 25 Mg Tab) 25 mg PO Q4H PRN PRN Reason: Anxiety Stop: 03/11/21 02:03 Lorazepam (Lorazepam 1 Mg Tab) 1 mg PO Q6 PRN PRN Reason: Anxiety/Agitation Stop: 03/15/21 22:23 Lurasidone HCl (Lurasidone Hcl 40 Mg Tab) 40 mg PO QDD [facility] Stop: 03/19/21 17:44 Last Admin: 02/19/21 17:33 Dose: Not Given Documented by: Magnesium Hydroxide (Magnesium Hydroxide Susp 30 Ml Udc) 30 ml PO DAILY PRN PRN Reason: Constipation Stop: 03/11/21 02:03 Miscellaneous (Order Awaiting Action) 1 ea N/A QS [facility] Stop: 03/22/21 15:59 Olanzapine (Olanzapine 10 Mg/2.1 Ml Sdv) 10 mg IM DAILY PRN PRN Reason: refusal of Latuda Stop: 03/18/21 09:39 Last Admin: 02/19/21 17:35 Dose: 10 mg Documented by: Sodium Chloride (Sodium Chloride 0.65% Na Soln 45 Ml (White)) 1 - 2 sprays NA PRN PRN PRN Reason: Nasal Dryness/Congestion Stop: 03/11/21 02:03 Mental Health & Subst Abuse Tx Psychiatrist Name of Psychiatrist: Oniel Jacobs Psychiatrist's Date of Appointment with Psychiatrist: 03/13/21 Time of Appointment with Psychiatrist: 9:20am Psychiatric Appointment Comment: Zoom *is on waiting list for appt. sooner Therapist Name of Therapist: Unknown General Production Manager Name of General Production Manager: Angel Johns Post Discharge Appointments Primary Care Physician Name Of Family Doctor: Unknown
[2021-02-20] MEDS: OLANZapine 10 MG/2.1 ML SDV IM PRN (18:16)
[2021-02-20] MEDS: ENOXAPARIN INJ 40 MG/0.4 ML SYR SQ SCH (18:17)
[2021-02-20] MEDS: LURASIDONE HCL 40 MG TAB PO SCH (21:21)
[2021-02-21 08:52] LABS: BUN Creatinine Ratio 14.9 (10-20); Calcium 8.5 mg/dl (8.5-10.1); Creatinine Clr Calc Pharmacy 136.7 ml/min; Est GFR (African American) 115.6 ml/min; Est GFR (Non-African American) 99.7 ml/min; Potassium 3.9 mmol/L (3.5-5.1)
[2021-02-21 08:55] LABS: Bilirubin,Total 0.8 mg/dl (0.2-1)
[2021-02-21] MEDS: SELEGILINE 6 MG/24 HR TD SCH (10:09)
--- NOTE | 2021-02-21 11:22 | Electroencephalogram ---
EEG Procedure Note Date of Service February 21, 2021 Start / End Times Start Time: 1049 End Time: [address] Arevalo History 40-year-old with history of hypersomnia, altered mental status, and mutism, Home Medication List Medication Instructions Recorded Confirmed Type olanzapine 10 mg tablet (Zyprexa) 15 mg PO HS 03/14/20 02/08/21 History bupropion HCl 100 mg tablet,12 hr 100 mg PO BID 10/31/20 02/08/21 History sustained-release lamotrigine 200 mg tablet 200 mg PO BID 10/31/20 02/08/21 History Inpatient Medication List Acetaminophen (Acetaminophen 325 Mg Tab) 650 mg PO Q4H PRN PRN Reason: Headache or Minor Fever Stop: 03/11/21 02:03 Last Admin: 02/15/21 18:44 Dose: 650 mg Documented by: [id number] Enoxaparin Sodium (Enoxaparin Inj 40 Mg/0.4 Ml Syr) 40 mg SQ QDD OG Stop: 03/19/21 17:44 Last Admin: 02/20/21 18:17 Dose: 40 mg Documented by: [id number] Admin: 02/19/21 17:34 Dose: 40 mg Documented by: [id number] Admin: 02/18/21 17:43 Dose: 40 mg Documented by: [id number] Admin: 02/17/21 21:50 Dose: 40 mg Documented by: [id number] Selegiline (Selegiline 6 Mg/24hr Tdsy) 6 mg TD DAILY OG Stop: 03/23/21 08:59 Last Admin: 02/21/21 10:09 Dose: 6 mg Documented by: [id number] Discontinued Medications Enoxaparin Sodium (Enoxaparin Inj 40 Mg/0.4 Ml Syr) 40 mg SQ QAM OG Stop: 03/17/21 08:59 Last Admin: 02/16/21 10:16 Dose: 40 mg Documented by: [id number] Admin: 02/15/21 09:38 Dose: 40 mg Documented by: [id number] Sodium Chloride (Nss 1000ml) 1,000 mls @ 999 mls/hr IV .Q1H1M ONE Stop: 02/09/21 00:18 Last Admin: 02/09/21 01:25 Dose: Not Given Documented by: [id number] Lorazepam (Lorazepam 0.5 Mg Tab) 0.5 mg PO NOW STA Stop: 02/09/21 02:08 Last Admin: 02/09/21 02:20 Dose: 0.5 mg Documented by: [id number] Lorazepam (Lorazepam 1 Mg Tab) 2 mg SL NOW STA Stop: 02/09/21 09:55 Last Admin: 02/09/21 10:30 Dose: Not Given Documented by: [id number] Lorazepam (Lorazepam 1 Mg Tab) 2 mg SL TID OG Stop: 03/11/21 20:59 Last Admin: 02/13/21 14:04 Dose: Not Given Documented by: [id number] Admin: 02/13/21 10:02 Dose: Not Given Documented by: [id number] Admin: 02/12/21 20:40 Dose: Not Given Documented by: [id number] Admin: 02/12/21 14:22 Dose: Not Given Documented by: [id number] Admin: 02/12/21 09:42 Dose: Not Given Documented by: [id number] Admin: 02/11/21 22:17 Dose: Not Given Documented by: [id number] Admin: 02/11/21 14:15 Dose: Not Given Documented by: [id number] Admin: 02/11/21 09:30 Dose: 2 mg Documented by: [id number] Admin: 02/10/21 20:04 Dose: 2 mg Documented by: [id number] Admin: 02/10/21 13:46 Dose: 2 mg Documented by: [id number] Admin: 02/10/21 09:09 Dose: 2 mg Documented by: [id number] Admin: 02/09/21 20:13 Dose: 2 mg Documented by: [id number] Lorazepam (Lorazepam 1 Mg Tab) 2 mg SL BID@0900,1400 OG Stop: 03/15/21 14:59 Last Admin: 02/15/21 13:49 Dose: Not Given Documented by: [id number] Admin: 02/15/21 09:40 Dose: Not Given Documented by: [id number] Admin: 02/14/21 14:21 Dose: Not Given Documented by: [id number] Admin: 02/14/21 09:29 Dose: Not Given Documented by: [id number] Admin: 02/13/21 15:16 Dose: Not Given Documented by: [id number] Lorazepam (Lorazepam 2 Mg/Ml Vial (Im Use)) 2 mg IM BID@0900,1400 PRN PRN Reason: refusal of ativan SL Stop: 03/16/21 06:59 Last Admin: 02/15/21 13:49 Dose: 2 mg Documented by: [id number] Admin: 02/15/21 09:44 Dose: 2 mg Documented by: [id number] Admin: 02/14/21 14:09 Dose: 2 mg Documented by: [id number] Admin: 02/14/21 09:31 Dose: 2 mg Documented by: [id number] Lorazepam (Lorazepam 2 Mg/Ml Vial (Im Use)) Confirm Administered Dose 2 mg .[facility] Stop: 02/13/21 15:27 Last Admin: 02/13/21 15:33 Dose: 2 mg Documented by: [id number] Lorazepam (Lorazepam 1 Mg Tab) 2 mg PO DAILY PRN PRN Reason: Anxiety/Agitation Stop: 03/15/21 22:23 Last Admin: 02/15/21 17:51 Dose: 2 mg Documented by: [id number] Admin: 02/14/21 17:26 Dose: 2 mg Documented by: [id number] Admin: 02/13/21 22:31 Dose: 2 mg Documented by: [id number] Lurasidone HCl (Lurasidone Hcl 40 Mg Tab) 40 mg PO QAM [facility] Stop: 03/18/21 09:14 Last Admin: 02/16/21 10:31 Dose: Not Given Documented by: [id number] Lurasidone HCl (Lurasidone Hcl 40 Mg Tab) 40 mg PO QDD [facility] Stop: 03/19/21 17:44 Last Admin: 02/20/21 21:21 Dose: Not Given Documented by: [id number] Admin: 02/19/21 17:33 Dose: Not Given Documented by: [id number] Admin: 02/18/21 17:23 Dose: Not Given Documented by: [id number] Admin: 02/17/21 20:18 Dose: Not Given Documented by: [id number] Miscellaneous (Order Awaiting Action) 1 ea N/A QS [facility] Stop: 03/22/21 15:59 Last Admin: 02/21/21 08:42 Dose: Not Given Documented by: [id number] Admin: 02/21/21 02:06 Dose: Not Given Documented by: [id number] Admin: 02/20/21 17:17 Dose: Not Given Documented by: [id number] Olanzapine (Olanzapine 5 Mg Tablet) 5 mg PO NOW STA Stop: 02/09/21 02:08 Last Admin: 02/09/21 02:20 Dose: 5 mg Documented by: [id number] Olanzapine (Olanzapine 10 Mg/2.1 Ml Sdv) 10 mg IM DAILY PRN PRN Reason: refusal of Latuda Stop: 03/18/21 09:39 Last Admin: 02/20/21 18:16 Dose: 10 mg Documented by: [id number] Admin: 02/19/21 17:35 Dose: 10 mg Documented by: [id number] Admin: 02/18/21 17:43 Dose: 10 mg Documented by: [id number] Admin: 02/17/21 21:59 Dose: 10 mg Documented by: [id number] Olanzapine (Olanzapine 10 Mg/2.1 Ml Sdv) Confirm Administered Dose 10 mg IM .[place] ONE Stop: 02/16/21 10:12 Last Admin: 02/16/21 10:31 Dose: 10 mg Documented by: [id number] Description This is a 21 electrode EEG with a single channel dedicated to limited EKG. The electrodes were placed in accordance with the International 10-20 system. Interpretation The predominant background activity consists of a very well modulated 9 Hz activity, of up to 40 mV in amplitude,seen symmetrically distributed over the posterior head regions bilaterally. This activity attenuates nicely with eye- opening and other alerting procedures. Photic stimulation was performed and elicited no change in the background activity and no abnormal responses were seen. Hyperventilation was not performed. A mild amount of muscle and movement artifact activity, particularly in the frontal head regions, contaminated the recording, yet did not hinder interpretation to any significant degree. Throughout the waking portion of the recording, no focal abnormalities, abnormal slow activity, or potentially epileptogenic discharges are seen. The patient entered the drowsy state with no further activation. In summary, this EEG was normal during wakefulness and drowsiness. No focal abnormalities, potentially epileptogenic discharges, or abnormal slow activity was seen. Clinical Correlation The abscence of potentially epileptogenic activity does not exclude a seizure disorder, since interictally, EEGs can be normal. Clinical correlation is required. [facility] EEG Procedure Codes Indication for Procedure (1) Altered mental status: (2) Hypersomnia: Neurology Neurology: 99850 EEG include record awake & drowsy
[2021-02-21 11:30] LABS: Basophils # (auto) 0.02 K/uL (0-0.2); Basophils % (auto) 0.3 %; Eosinophils # (auto) 0.21 K/uL (0-0.5); Eosinophils % (auto) 2.9 %; Hematocrit (blood only) 47.5 % (42-52); Hemoglobin 16.6 g/dL (14.0-18.0); Immature Granulocytes # (auto) 0.03 K/uL (0.00-0.02); Immature Granulocytes % (auto) 0.4 %; Lymphocytes # (auto) 1.44 K/uL (1.2-3.4); Lymphocytes % (auto) 20.2 %; Mean Corpuscular Hemoglobin 30.8 pg (25-34); Mean Corpuscular Hgb Conc 34.9 g/dL (32-36); Mean Corpuscular Volume 88.1 fL (80-100); Mean Platelet Volume 10.5 fL (7.4-10.4); Monocytes # (auto) 0.59 K/uL (0.11-0.59); Monocytes % (auto) 8.3 %; Neutrophils # (auto) 4.85 K/uL (1.4-6.5); Neutrophils % (auto) 67.9 %; Platelet Count 168 K/uL (130-400); RDW Coefficient of Variation 12.8 % (11.5-14.5); RDW Standard Deviation 40.8 fL (36.4-46.3); Red Blood Count 5.39 M/uL (4.7-6.1); White Blood Count 7.14 K/uL (4.8-10.8)
--- NOTE | 2021-02-21 12:05 | Psychiatric Progress Note ---
Date of Service February 21, 2021 Impression / Recommendations Impression The patient is a 40 year old with a history of schizophrenia vs BPAD, and depression who was admitted for failure of self-care and worsening decompensation. The patient is deemed unstable and requires psychiatric h ospitalization for diagnostic clarification, safety and stabilization, medication management and development of further coping skills. Initially focussed on Ativan dosing for catatonia but no consistent response. Will focus on medication over objection and readdress possible ECT or antidepressant when improved. -303 status, expires 03/05 -[facility] for psychiatric condition due to severe depression and presumed psychosis, incontinence and need for staff assistance with ADLS 02/08/21--inability to care for self, mute, poor PO, barely ambulating but labs stable (1) Bipolar disorder with depression: 02/21/21--complex differential--depression with psychotic features in a patient with bipolar disorder most likely, certainly not typcial catatonia. No hx of hyperphagia or hypersexuality known that would suggest Kleine-Hess syndrome. Will proceed with Emsam patch 6 mg trial as only means to administer antidepressant. Will check with an ECT facility to determine if can treat patient if pursue a court order (will await emsam trial first). MRI brain (patient will need various x rays first as can't answer screening questions, no hx of pacemaker on chart). bedside EEG to rule out status epilepticus. 02/19/21--non-formulary request for Emsam patch. Hasn't taken antidepressants for at least 6 weeks. Would reconsider current med doses when this becomes available. without antidepressant he will continue to decompensate medically and is at significant risk of further decompensation. 02/17/21--lytes, Bun/Cr improved; given sleep phase shift desirable to shift antipsychotic to pm meal with IM Zyprexa for refusal. Bedside EEG likely poor quality/low yeild but consider if no improvement. 02/16/21--Reviewed care by Dr. Garces in italics. will d/c IM Ativan in favor of Zyprexa IM for failure to take Latuda. Does take Lorazepam prn PO, adjust dose and frequency and monitor use. Will repeat labs and PO intake so variable and hard to track. 02/09/2021--admitted to [facility]. Ativan 2mg SL TID ordered. Track Is&Os. Vitals BID. 02/10/2021--continue with ativan 2mg TID SL. Showing significant improving in catatonic symptoms since ativan trial last night. If he continues to walk around no need for DVT prophylaxis. Will consider if 302 needs to be converted to 303 based on progress today. 02/11/2021--continue with scheduled ativan. Less engagement today but still eating and drinking. Plan for likely 303 given his inability/reluctance to engage in treatment. Reviewed outside records. 02/12/2021--continues to refuse ativan today and won't engage with anyone nor leave his bed except to use the bathroom and to eat at night. Given some movement in the evening and to the bathroom he doesn't require DVT prophylaxis at this time but this remains a concern should he clinically worsen and will continue to monitor his nutritional and medical status closely. 02/13/2021--placed on 303 status due to ongoing decompensation due to catatonia including refusal of medication, not eating, not drinking, not communicating with anyone and lying in bed all day. Once catatonia begins to improve with treatment will aim to start latuda which helped previously. [place] to require medications over objection for ativan to treat catatonia. If catatonia does not respond quickly to ativan then will consider if DVT prophylaxis should be initiated. 02/14/2021--no significant change in behaviors with additional of scheduled ativan 2 mg BID as medication over objection. Given concern for skin breakdown consult was placed for wound nurse. Given concern for possible DVT and after discussion with hospitalist will begin lovenox 40mg subQ daily. David was able to vocalize consent for this as he remains mute and unable/unwilling to engage but explained the risks, benefits, alternatives and rationale for lovenox and that we will be offering this to him. 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 02/15/2021--Have ruled out catatonia given inconsistent response to ativan trial, multiple observed examples of volitional movement immediately following periods of patient lying in bed and mute. Subsequent catatonia scales have been negative and patient feels that his symptoms represent withdrawn features of anxiety and depression. Given bipolar depression with neurovegetative features will start latuda. Encouragingly he is eating more and drinking more and got out of bed twice last night. Risk Factors Assessment Male: Yes : Yes Do You Have Access To A Gun?: No (in supportive living enviornment, pt unable to answer ) Mental Health Diagnoses: Yes Previous Psychiatric Hospitalization: Yes Protective Factors Assessment Employed: No Interval History Identifying Information 40 yo man with history of catatonia, depression, possible BPAD vs schizophrenia admitted due to concern for catatonia and decompensation with failure of self- care at [facility]. Admitted on 302, now 303. Chief Complaint remains mute. Review of Systems Sleep Information Total Hours of Sleep: 6.5 Sleep Comments: pt on q-15 minute checks Meal Information Percent Meal Consumed - Breakfast: 0 Percent Meal Consumed - Lunch: 0 Percent Meal Consumed - Dinner: 0 Nutrition Comment: Three staff encouraged pt to eat dinner. Staff assisted pt in ambulating to the day room to eat. Pt did not speak and refused dinner. Subjective Subjective Patient was seen & assessed and interval progress reviewed with nursing and social work. Patient barely getting out of bed, no meaningful PO yet renal labs/lytes are maintaining. No perceivable response to IM Zyprexa. Emsam patch arrived/placed without incident. He is unable to participate any discussion around medication options. EEG ordered and patient failed to respond. No muscle tightness. Occasionally opens eyes to commands. Patient has been at retirement since 2019 and has exhibited extended periods of hypersomnolence without clear trigger though typical due to divorce trigger. Physical Exam Psychiatric mute, won't make eye contact, no tremor, moves extremities spontaneously and symmetrically intermittently. Vital Signs (Past 24 Hours) Last Vital Signs Temp 35.9 C L 02/20/21 23:00 Pulse 99 H 02/21/21 06:29 Resp 16 02/21/21 06:29 BP 119/77 02/21/21 06:29 Pulse Ox 96 02/14/21 20:53 Results & Data ([facility]) Laboratory Results Laboratory Results - last 24 hr 02/21/21 02/21/21 07:36 11:20 WBC 7.14 RBC 5.39 Hgb 16.6 Hct 47.5 MCV 88.1 MCH 30.8 MCHC 34.9 RDW Std Deviation 40.8 RDW Coeff of [place] 12.8 Plt Count 168 MPV 10.5 H Immature Gran % (Auto) 0.4 Neut % (Auto) 67.9 Lymph % (Auto) 20.2 Cobb % (Auto) 8.3 Eos % (Auto) 2.9 Baso % (Auto) 0.3 Neut # (Auto) 4.85 Lymph # (Auto) 1.44 Cobb # (Auto) 0.59 Eos # (Auto) 0.21 Baso # (Auto) 0.02 Immature Gran # (Auto) 0.03 H Sodium 141 Potassium 3.9 Chloride 109 H Carbon Dioxide 23 Anion Gap 9.0 BUN 14 Creatinine 0.95 Est Cr Clr Drug Dosing 136.7 Est GFR ( Amer) 115.6 Est GFR (Non-Af Amer) 99.7 BUN/Creatinine Ratio 14.9 Glucose 81 Calcium 8.5 Total Bilirubin 0.8 AST 39 H ALT 64 Alkaline Phosphatase 98 Total Protein 6.0 L Albumin 3.0 L Globulin 3.0 Albumin/Globulin Ratio 1.0 Current Inpatient Medications Current Inpatient Medications: Current Inpatient Medications Acetaminophen (Acetaminophen 325 Mg Tab) 650 mg PO Q4H PRN PRN Reason: Headache or Minor Fever Stop: 03/11/21 02:03 Last Admin: 02/15/21 18:44 Dose: 650 mg Documented by: Al Hydrox/Mg Hydrox/Simethicone (Aluminum/Magnesium Susp 30 Ml Udc) 30 ml PO Q4H PRN PRN Reason: GI Upset Stop: 03/11/21 02:03 Bismuth Subsalicylate (Bismuth Subsalicylate Liqd 236 Ml) 15 ml PO PRN PRN PRN Reason: Loose Stool Stop: 03/11/21 02:03 Enoxaparin Sodium (Enoxaparin Inj 40 Mg/0.4 Ml Syr) 40 mg SQ QDD OG Stop: 03/19/21 17:44 Last Admin: 02/20/21 18:17 Dose: 40 mg Documented by: Hydroxyzine HCl (Hydroxyzine Hcl 25 Mg Tab) 50 mg PO HSZ PRN PRN Reason: Insomnia Stop: 03/11/21 02:03 Hydroxyzine HCl (Hydroxyzine Hcl 25 Mg Tab) 25 mg PO Q4H PRN PRN Reason: Anxiety Stop: 03/11/21 02:03 Lorazepam (Lorazepam 1 Mg Tab) 1 mg PO Q6 PRN PRN Reason: Anxiety/Agitation Stop: 03/15/21 22:23 Magnesium Hydroxide (Magnesium Hydroxide Susp 30 Ml Udc) 30 ml PO DAILY PRN PRN Reason: Constipation Stop: 03/11/21 02:03 Miscellaneous (Remove Patch Selegiline (Emsam)) 1 ea N/A Q24H OG Stop: 03/24/21 08:58 Selegiline (Selegiline 6 Mg/24hr Tdsy) 6 mg TD DAILY OG Stop: 03/23/21 08:59 Last Admin: 02/21/21 10:09 Dose: 6 mg Documented by: Sodium Chloride (Sodium Chloride 0.65% Na Soln 45 Ml ([place])) 1 - 2 sprays NA PRN PRN PRN Reason: Nasal Dryness/Congestion Stop: 03/11/21 02:03 Mental Health & Subst Abuse Tx Psychiatrist Name of Psychiatrist: Oniel Negron Psychiatrist's Date of Appointment with Psychiatrist: 03/13/21 Time of Appointment with Psychiatrist: 9:20am Psychiatric Appointment Comment: Zoom *is on waiting list for appt. sooner Therapist Name of Therapist: Unknown Sales Representative Aircraft Name of Sales Representative Aircraft: Angel Johns Post Discharge Appointments Primary Care Physician Name Of Family Doctor: Unknown
--- NOTE | 2021-02-21 12:32 | XRay Report ---
XR orbits for MRI HISTORY: 40 years-old Male Screening for foreign body for MRI COMPARISON: Head CT 11/12/2019 TECHNIQUE: 3 views of the orbits FINDINGS: No opaque foreign body of the orbits. No acute facial bone fracture identified. Mastoid air cells and paranasal sinuses are generally clear. IMPRESSION: No opaque foreign body of the orbits. ACT 112: Negative or not required by law. The above report was generated using voice recognition software. It may contain grammatical, syntax o r spelling errors. Electronically signed by: Colby Barakat M.D. 02/21/2021 12:31 PM
--- NOTE | 2021-02-21 12:35 | XRay Report ---
KUB pre MRI, XR chest 1V not portable HISTORY: 40 years-old Male pre MRI as patient mute screening study for MRI COMPARISON: None TECHNIQUE: Portable supine AP view the chest with KUB radiograph FINDINGS: CHEST: Cardiac silhouette is upper limits of normal in size. Interstitial coarsening is likely secondary to technique and patient body habitus. The lungs are hypoinflated. Mild right hemidiaphragmatic elevatio n. Linear subsegmental left lung base opacities suggest atelectasis. No pneumothorax, pleural effusio n, overt pulmonary edema or lobar airspace consolidation. No acute fracture. No opaque foreign body. KUB: Nonobstructive bowel gas pattern. No pneumatosis or pneumoperitoneum. No urolith or acute fracture. No opaque foreign body. Pelvic basin calcifications are likely vascular. Soft tissue prominence of th e scrotum. IMPRESSION: 1. Hypoinflation with left basilar opacities suggestive of atelectasis. 2. Nonobstructive bowel gas pattern. 3. No opaque foreign bodies. ACT 112: Negative or not required by law. The above report was generated using voice recognition software. It may contain grammatical, syntax o r spelling errors. Electronically signed by: Colby Barakat M.D. 02/21/2021 12:34 PM
[2021-02-21] MEDS: ENOXAPARIN INJ 40 MG/0.4 ML SYR SQ SCH (17:36)
[2021-02-21] MEDS ORDERED: GADOBUTROL 65ML VIAL IV ONE (23:03)
--- NOTE | 2021-02-22 08:15 | Magnetic Resonance Report ---
Brain MRI WITH AND WITHOUT CONTRAST HISTORY: hypersomnia, mutism, atypical catatonia TECHNIQUE: Multiplanar multisequence MRI of the brain was performed both before and after the intrave nous administration of contrast. COMPARISON STUDY: Head CT 11/12/2019. FINDINGS: There are no areas of restricted diffusion to suggest acute infarction. The midline structu res are intact. Small retention cyst within within the left maxillary sinus. The mastoid air cells ar e clear. The ventricles and sulci are within normal limits for age. There is no mass, hematoma, midli ne shift. The major vascular flow-voids at the skull base are well maintained. Postcontrast sequences show no areas of abnormal enhancement. IMPRESSION: No acute intracranial abnormality. ACT 112: Negative or not required by law. Electronically signed by: Isai Negrete M.D. 02/22/2021 8:14 AM
[2021-02-22] MEDS: SELEGILINE 6 MG/24 HR TD SCH (09:13)
[2021-02-22] MEDS: [UNRECOGNIZED DRUG - REMARK] SCH (09:18)
--- NOTE | 2021-02-22 13:11 | Psychiatric Progress Note ---
Date of Service February 22, 2021 Impression / Recommendations Impression The patient is a 40 year old with a history of schizophrenia vs BPAD, and depression who was admitted for failure of self-care and worsening decompensation. The patient is deemed unstable and requires psychiatric h ospitalization for diagnostic clarification, safety and stabilization, medication management and development of further coping skills. Initially focussed on Ativan dosing for catatonia but no consistent response to meds over objection. Patient seemed worse on Zyprexa, very poor PO. Started Emsam (MAOI patch on 02/21/21). Will focus on medication over objection and readdress possible ECT or antidepressant when improved. -303 status, expires 03/05 -[facility] for psychiatric condition due to severe depression and presumed psychosis, incontinence and need for staff assistance with ADLS 02/08/21--more movement today, ?thought blocking vs severe vegetative depression. More consistent PO and activity in past 24 hrs. (1) Bipolar disorder with depression: 02/22/21--neurologic work up with EEG and brain MRI unremarkable, continue Emsam trial. 02/21/21--complex differential--depression with psychotic features in a patient with bipolar disorder most likely, certainly not typcial catatonia. No hx of hyperphagia or hypersexuality known that would suggest Kleine-Hess syndrome. Will proceed with Emsam patch 6 mg trial as only means to administer antide pressant. Will check with an ECT facility to determine if can treat patient if pursue a court order (will await emsam trial first). MRI brain (patient will need various x rays first as can't answer screening questions, no hx of pacemaker on chart). bedside EEG to rule out status epilepticus. 02/19/21--non-formulary request for Emsam patch. Hasn't taken antidepressants for at least 6 weeks. Would reconsider current med doses when this becomes available. without antidepressant he will continue to decompensate medically and is at significant risk of further decompensation. 02/17/21--lytes, Bun/Cr improved; given sleep phase shift desirable to shift antipsychotic to pm meal with IM Zyprexa for refusal. Bedside EEG likely poor quality/low yeild but consider if no improvement. 02/16/21--Reviewed care by Dr. Garces in italics. will d/c IM Ativan in favor of Zyprexa IM for failure to take Latuda. Does take Lorazepam prn PO, adjust dose and frequency and monitor use. Will repeat labs and PO intake so variable and hard to track. 02/09/2021--admitted to U. Ativan 2mg SL TID ordered. Track Is&Os. Vitals BID. 02/10/2021--continue with ativan 2mg TID SL. Showing significant improving in catatonic symptoms since ativan trial last night. If he continues to walk around no need for DVT prophylaxis. Will consider if 302 needs to be converted to 303 based on progress today. 02/11/2021--continue with scheduled ativan. Less engagement today but still eating and drinking. Plan for likely 303 given his inability/reluctance to engage in treatment. Reviewed outside records. 02/12/2021--continues to refuse ativan today and won't engage with anyone nor leave his bed except to use the bathroom and to eat at night. Given some movement in the evening and to the bathroom he doesn't require DVT prophylaxis at this time but this remains a concern should he clinically worsen and will continue to monitor his nutritional and medical status closely. 02/13/2021--placed on 303 status due to ongoing decompensation due to catatonia including refusal of medication, not eating, not drinking, not communicating with anyone and lying in bed all day. Once catatonia begins to improve with treatment will aim to start latuda which helped previously. [place] to require medications over objection for ativan to treat catatonia. If catatonia does not respond quickly to ativan then will consider if DVT prophylaxis should be initiated. 02/14/2021--no significant change in behaviors with additional of scheduled ativan 2 mg BID as medication over objection. Given concern for skin breakdown consult was placed for wound nurse. Given concern for possible DVT and after discussion with hospitalist will begin lovenox 40mg subQ daily. David was able to vocalize consent for this as he remains mute and unable/unwilling to engage but explained the risks, benefits, alternatives and rationale for lovenox and that we will be offering this to him. 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 02/15/2021--Have ruled out catatonia given inconsistent response to ativan trial, multiple observed examples of volitional movement immediately following periods of patient lying in bed and mute. Subsequent catatonia scales have been negative and patient feels that his symptoms represent withdrawn features of anxiety and depression. Given bipolar depression with neurovegetative features will start latuda. Encouragingly he is eating more and drinking more and got out of bed twice last night. Risk Factors Assessment Male: Yes : Yes Do You Have Access To A Gun?: No (in supportive living enviornment, pt unable to answer ) Mental Health Diagnoses: Yes Previous Psychiatric Hospitalization: Yes Protective Factors Assessment Employed: No Interval History Identifying Information 40 yo man with history of catatonia, depression, possible BPAD vs schizophrenia admitted due to concern for catatonia and decompensation with failure of self- care at [facility]. Admitted on 302, now 303. Chief Complaint mute Review of Systems Sleep Information Total Hours of Sleep: 6.5 Sleep Comments: pt on q-15 minute checks. pt moving sleeping positions x2 during the night. Meal Information Percent Meal Consumed - Breakfast: 0 Percent Meal Consumed - Lunch: 0 Percent Meal Consumed - Dinner: 0 Nutrition Comment: Meal provided at bedside; pt. verbally stated "No" when asked if he'd like to eat. Fluids and crackers at bedside Subjective Subjective Patient was seen & assessed and interval progress reviewed with treatment team. Cooperated with testing yesterday (EEG, multiple X rays and brain MRI). Requires 2-3 person assist/encouragement to reposition/stand. He did eat better on pm shift and showered. No skin irritation around emsam patch. Physical Exam Psychiatric today is the first day he sat up to acknowledge my presence and will make eye contact, almost attempting to speak but doesn't. Allowed me to provide nail care and positioned his hands appropriately. Did not appear to be responding to any visual stimuli. Still mute. No rigidity or waxy flexibility. Vital Signs (Past 24 Hours) Last Vital Signs Temp 36.4 C L 02/21/21 20:15 Pulse 103 H 02/22/21 06:23 Resp 16 02/22/21 06:23 BP 133/82 02/22/21 06:23 Pulse Ox 96 02/14/21 20:53 Results & Data ([facility]) Diagnostic Findings Brain MRI 02/21/21 11:32 Brain MRI WITH AND WITHOUT CONTRAST HISTORY: hypersomnia, mutism, atypical catatonia TECHNIQUE: Multiplanar multisequence MRI of the brain was performed both before and after the intravenous administration of contrast. COMPARISON STUDY: Head CT 11/12/2019. FINDINGS: There are no areas of restricted diffusion to suggest acute infarction. The midline structures are intact. Small retention cyst within within the left maxillary sinus. The mastoid air cells are clear. The ventricles and sulci are within normal limits for age. There is no mass, hematoma, midline shift. The major vascular flow-voids at the skull base are well maintained. Postcontrast sequences show no areas of abnormal enhancement. IMPRESSION: No acute intracranial abnormality. ACT 112: Negative or not required by law. Electronically signed by: Isai Negrete M.D. 02/22/2021 8:14 AM Current Inpatient Medications Current Inpatient Medications: Current Inpatient Medications Acetaminophen (Acetaminophen 325 Mg Tab) 650 mg PO Q4H PRN PRN Reason: Headache or Minor Fever Stop: 03/11/21 02:03 Last Admin: 02/15/21 18:44 Dose: 650 mg Documented by: Al Hydrox/Mg Hydrox/Simethicone (Aluminum/Magnesium Susp 30 Ml Udc) 30 ml PO Q4H PRN PRN Reason: GI Upset Stop: 03/11/21 02:03 Bismuth Subsalicylate (Bismuth Subsalicylate Liqd 236 Ml) 15 ml PO PRN PRN PRN Reason: Loose Stool Stop: 03/11/21 02:03 Enoxaparin Sodium (Enoxaparin Inj 40 Mg/0.4 Ml Syr) 40 mg SQ QDD OG Stop: 03/19/21 17:44 Last Admin: 02/21/21 17:36 Dose: 40 mg Documented by: Hydroxyzine HCl (Hydroxyzine Hcl 25 Mg Tab) 50 mg PO HSZ PRN PRN Reason: Insomnia Stop: 03/11/21 02:03 Hydroxyzine HCl (Hydroxyzine Hcl 25 Mg Tab) 25 mg PO Q4H PRN PRN Reason: Anxiety Stop: 03/11/21 02:03 Lorazepam (Lorazepam 1 Mg Tab) 1 mg PO Q6 PRN PRN Reason: Anxiety/Agitation Stop: 03/15/21 22:23 Magnesium Hydroxide (Magnesium Hydroxide Susp 30 Ml Udc) 30 ml PO DAILY PRN PRN Reason: Constipation Stop: 03/11/21 02:03 Miscellaneous (Remove Patch Selegiline (Emsam)) 1 ea N/A Q24H OG Stop: 03/24/21 08:58 Last Admin: 02/22/21 09:18 Dose: 1 ea Documented by: Selegiline (Selegiline 6 Mg/24hr Tdsy) 6 mg TD DAILY OG Stop: 03/23/21 08:59 Last Admin: 02/22/21 09:13 Dose: 6 mg Documented by: Sodium Chloride (Sodium Chloride 0.65% Na Soln 45 Ml ([facility])) 1 - 2 sprays NA PRN PRN PRN Reason: Nasal Dryness/Congestion Stop: 03/11/21 02:03 Mental Health & Subst Abuse Tx Psychiatrist Name of Psychiatrist: Oniel Negron Psychiatrist's Date of Appointment with Psychiatrist: 03/13/21 Time of Appointment with Psychiatrist: 9:20am Psychiatric Appointment Comment: Zoom *is on waiting list for appt. sooner Therapist Name of Therapist: Unknown Contract Agent Name of Contract Agent: Angel Johns Post Discharge Appointments Primary Care Physician Name Of Family Doctor: Unknown
[2021-02-22] MEDS: ENOXAPARIN INJ 40 MG/0.4 ML SYR SQ SCH (17:01)
--- NOTE | 2021-02-23 09:13 | Psychiatric Progress Note ---
Date of Service February 23, 2021 Impression / Recommendations Impression The patient is a 40 year old with a history of schizophrenia vs BPAD, and depression who was admitted for failure of self-care and worsening decompensation. The patient is deemed unstable and requires psychiatric h ospitalization for diagnostic clarification, safety and stabilization, medication management and development of further coping skills. Initially focussed on Ativan dosing for catatonia but no consistent response to meds over objection. Patient seemed worse on Zyprexa, very poor PO. Started Emsam (MAOI patch on 02/21/21). Will focus on medication over objection and readdress possible ECT or antidepressant when improved. -303 status, expires 03/05 -[facility] for psychiatric condition due to severe depression and presumed psychosis, incontinence and need for staff assistance with ADLS (1) Bipolar disorder with depression: 02/23/21--Continues to demonstrate neurovegetative symptoms of depression, remaining in bed most of the day but sometimes more engagement in the evenings. Will implement behavioral plan to encourage behavioral activation to treat neurovegetative symptoms in conjunction with Emsam as well as to encourage increased participation with ADLs. Nursing to provide him with tools to help him eat and promote good hygiene (brining in meals, supplies to wash up) and then if he does this independently will bring in ice cream or chips as reward to see if this helps with activation and increased po intake. 02/22/21--neurologic work up with EEG and brain MRI unremarkable, continue Emsam trial. 02/21/21--complex differential--depression with psychotic features in a patient with bipolar disorder most likely, certainly not typcial catatonia. No hx of hyperphagia or hypersexuality known that would suggest Kleine-Hess syndrome. Will proceed with Emsam patch 6 mg trial as only means to administer antidepressant. Will check with an ECT facility to determine if can treat patient if pursue a court order (will await emsam trial first). MRI brain (patient will need various x rays first as can't answer screening questions, no hx of pacemaker on chart). bedside EEG to rule out status epilepticus. 02/19/21--non-formulary request for Emsam patch. Hasn't taken antidepressants for at least 6 weeks. Would reconsider current med doses when this becomes available. without antidepressant he will continue to decompensate medically and is at significant risk of further decompensation. 02/17/21--lytes, Bun/Cr improved; given sleep phase shift desirable to shift antipsychotic to pm meal with IM Zyprexa for refusal. Bedside EEG likely poor quality/low yeild but consider if no improvement. 02/16/21--Reviewed care by Dr. Garces in italics. will d/c IM Ativan in favor of Zyprexa IM for failure to take Latuda. Does take Lorazepam prn PO, adjust dose and frequency and monitor use. Will repeat labs and PO intake so variable and hard to track. 02/09/2021--admitted to U. Ativan 2mg SL TID ordered. Track Is&Os. Vitals BID. 02/10/2021--continue with ativan 2mg TID SL. Showing significant improving in catatonic symptoms since ativan trial last night. If he continues to walk around no need for DVT prophylaxis. Will consider if 302 needs to be converted to 303 based on progress today. 02/11/2021--continue with scheduled ativan. Less engagement today but still eating and drinking. Plan for likely 303 given his inability/reluctance to engage in treatment. Reviewed outside records. 02/12/2021--continues to refuse ativan today and won't engage with anyone nor leave his bed except to use the bathroom and to eat at night. Given some movement in the evening and to the bathroom he doesn't require DVT prophylaxis at this time but this remains a concern should he clinically worsen and will continue to monitor his nutritional and medical status closely. 02/13/2021--placed on 303 status due to ongoing decompensation due to catatonia including refusal of medication, not eating, not drinking, not communicating wi th anyone and lying in bed all day. Once catatonia begins to improve with treatment will aim to start latuda which helped previously. [place] to require medications over objection for ativan to treat catatonia. If catatonia does not respond quickly to ativan then will consider if DVT prophylaxis should be initiated. 02/14/2021--no significant change in behaviors with additional of scheduled ativan 2 mg BID as medication over objection. Given concern for skin breakdown consult was placed for wound nurse. Given concern for possible DVT and after discussion with hospitalist will begin lovenox 40mg subQ daily. David was able to vocalize consent for this as he remains mute and unable/unwilling to engage but explained the risks, benefits, alternatives and rationale for lovenox and that we will be offering this to him. 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 02/15/2021--Have ruled out catatonia given inconsistent response to ativan trial, multiple observed examples of volitional movement immediately following periods of patient lying in bed and mute. Subsequent catatonia scales have been negative and patient feels that his symptoms represent withdrawn features of anxiety and depression. Given bipolar depression with neurovegetative features will start latuda. Encouragingly he is eating more and drinking more and got out of bed twice last night. Risk Factors Assessment Male: Yes : Yes Do You Have Access To A Gun?: No (in supportive living enviornment, pt unable to answer ) Mental Health Diagnoses: Yes Previous Psychiatric Hospitalization: Yes Protective Factors Assessment Employed: No Interval History Identifying Information 40 yo man with history of catatonia, depression, possible BPAD vs schizophrenia admitted due to concern for catatonia and decompensation with failure of self- care at [facility]. Admitted on 302, now 303. Chief Complaint mute Review of Systems Sleep Information Total Hours of Sleep: 5 Sleep Comments: pt on q-15 minute checks. pt moving sleeping positions x2 during the night. Meal Information Percent Meal Consumed - Breakfast: 0 Percent Meal Consumed - Lunch: 0 Percent Meal Consumed - Dinner: 0 Nutrition Comment: Meal provided at bedside; pt. verbally stated "No" when asked if he'd like to eat. Fluids and crackers at bedside Subjective Subjective Chart and events of last 24 hours reviewed and discussed with multidisciplinary treatment team including nursing and social work. No acute events reported overnight. Slept well. Communicated with staff last evening and got out of bed to eat a large meal and then consumed some snacks. Today David was sitting in bed with a blanket over his head. I brought down the blanket to his neck and he remained with his eyes closed and did not engage in any verbal conversation even with prompting and offers to communicate via head nods or blinks. Spent more than 20 minutes in the care and coordination of this patient of which greater than 50% was dedicated to counseling and coordination of care. Physical Exam Psychiatric Orientation: alert; + uncooperative Apperance: + disheveled Eye Contact: + poor eye contact Motor Behavior: no abnormal motor movements and + psychomotor retardation Speech: + mute Affect: + flat affect Insight: + impaired insight Judgement: + severely impaired judgement Vital Signs (Past 24 Hours) Last Vital Signs Temp 37.2 C 02/22/21 21:34 Pulse 71 02/22/21 21:34 Resp 20 02/22/21 21:34 BP 109/74 02/22/21 21:34 Pulse Ox 96 02/22/21 21:34 Results & Data ([facility]) Current Inpatient Medications Current Inpatient Medications: Current Inpatient Medications Acetaminophen (Acetaminophen 325 Mg Tab) 650 mg PO Q4H PRN PRN Reason: Headache or Minor Fever Stop: 03/11/21 02:03 Last Admin: 02/15/21 18:44 Dose: 650 mg Documented by: Al Hydrox/Mg Hydrox/Simethicone (Aluminum/Magnesium Susp 30 Ml Udc) 30 ml PO Q4H PRN PRN Reason: GI Upset Stop: 03/11/21 02:03 Bismuth Subsalicylate (Bismuth Subsalicylate Liqd 236 Ml) 15 ml PO PRN PRN PRN Reason: Loose Stool Stop: 03/11/21 02:03 Enoxaparin Sodium (Enoxaparin Inj 40 Mg/0.4 Ml Syr) 40 mg SQ QDD OG Stop: 03/19/21 17:44 Last Admin: 02/22/21 17:01 Dose: 40 mg Documented by: Hydroxyzine HCl (Hydroxyzine Hcl 25 Mg Tab) 50 mg PO HSZ PRN PRN Reason: Insomnia Stop: 03/11/21 02:03 Hydroxyzine HCl (Hydroxyzine Hcl 25 Mg Tab) 25 mg PO Q4H PRN PRN Reason: Anxiety Stop: 03/11/21 02:03 Lorazepam (Lorazepam 1 Mg Tab) 1 mg PO Q6 PRN PRN Reason: Anxiety/Agitation Stop: 03/15/21 22:23 Magnesium Hydroxide (Magnesium Hydroxide Susp 30 Ml Udc) 30 ml PO DAILY PRN PRN Reason: Constipation Stop: 03/11/21 02:03 Miscellaneous (Remove Patch Selegiline (Emsam)) 1 ea N/A Q24H OG Stop: 03/24/21 08:58 Last Admin: 02/22/21 09:18 Dose: 1 ea Documented by: Selegiline (Selegiline 6 Mg/24hr Tdsy) 6 mg TD DAILY OG Stop: 03/23/21 08:59 Last Admin: 02/22/21 09:13 Dose: 6 mg Documented by: Sodium Chloride (Sodium Chloride 0.65% Na Soln 45 Ml ([facility])) 1 - 2 sprays NA PRN PRN PRN Reason: Nasal Dryness/Congestion Stop: 03/11/21 02:03 Mental Health & Subst Abuse Tx Psychiatrist Name of Psychiatrist: Oniel Negron Psychiatrist's Date of Appointment with Psychiatrist: 03/13/21 Time of Appointment with Psychiatrist: 9:20am Psychiatric Appointment Comment: Zoom *is on waiting list for appt. sooner Therapist Name of Therapist: Unknown Developer Programmer Name of Developer Programmer: Angel Johns Post Discharge Appointments Primary Care Physician Name Of Family Doctor: Unknown
[2021-02-23] MEDS: SELEGILINE 6 MG/24 HR TD SCH (09:46)
[2021-02-23] MEDS: [UNRECOGNIZED DRUG - REMARK] SCH (09:50)
[2021-02-23] MEDS: ENOXAPARIN INJ 40 MG/0.4 ML SYR SQ SCH (17:00)
[2021-02-24] MEDS: SELEGILINE 6 MG/24 HR TD SCH (08:58)
[2021-02-24] MEDS: [UNRECOGNIZED DRUG - REMARK] SCH (08:59)
--- NOTE | 2021-02-24 13:19 | Psychiatric Progress Note ---
Date of Service February 24, 2021 Impression / Recommendations Impression The patient is a 40 year old with a history of schizophrenia vs BPAD, and depression who was admitted for failure of self-care and worsening decompensation. The patient is deemed unstable and requires psychiatric h ospitalization for diagnostic clarification, safety and stabilization, medication management and development of further coping skills. Initially focussed on Ativan dosing for catatonia but no consistent response to meds over objection. Patient seemed worse on Zyprexa, very poor PO. Started Emsam (MAOI patch on 02/21/21). Will focus on medication over objection and readdress possible ECT or antidepressant when improved. On day 4 of selegiline trial. Ideally at two weeks of MAOI treatment we may begin to see antidepressant effects and hopefully more engagement in ADLs and with staff. -303 status, expires 03/05 -[facility]PR for psychiatric condition due to severe depression and presumed psychosis, incontinence and need for staff assistance with ADLS (1) Bipolar disorder with depression: 02/24/21--Remains isolative and will not engage verbally. Encouragingly is attending slightly more to some of his ADLs, will continue with behavioral plan in hopes to continue encouraging behavioral activation although food does not seem to be a good motivator/reward for him. Will continue to think about other possible motivators for him to help encourage increased activity, po intake and engagement with therapeutic milieu. No signs of HTN or other side effects from MAOI at this point. 02/23/21--Continues to demonstrate neurovegetative symptoms of depression, remaining in bed most of the day but sometimes more engagement in the evenings. Will implement behavioral plan to encourage behavioral activation to treat neurovegetative symptoms in conjunction with Emsam as well as to encourage increased participation with ADLs. Nursing to provide him with tools to help him eat and promote good hygiene (brining in meals, supplies to wash up) and then if he does this independently will bring in ice cream or chips as reward to see if this helps with activation and increased po intake. 02/22/21--neurologic work up with EEG and brain MRI unremarkable, continue Emsam trial. 02/21/21--complex differential--depression with psychotic features in a patient with bipolar disorder most likely, certainly not typcial catatonia. No hx of hyperphagia or hypersexuality known that would suggest Kleine-Hess syndrome. Will proceed with Emsam patch 6 mg trial as only means to administer antidepressant. Will check with an ECT facility to determine if can treat patient if pursue a court order (will await emsam trial first). MRI brain (patient will need various x rays first as can't answer screening questions, no hx of pacemaker on chart). bedside EEG to rule out status epilepticus. 02/19/21--non-formulary request for Emsam patch. Hasn't taken antidepressants for at least 6 weeks. Would reconsider current med doses when this becomes available. without antidepressant he will continue to decompensate medically and is at significant risk of further decompensation. 02/17/21--lytes, Bun/Cr improved; given sleep phase shift desirable to shift antipsychotic to pm meal with IM Zyprexa for refusal. Bedside EEG likely poor quality/low yeild but consider if no improvement. 02/16/21--Reviewed care by Dr. Garces in italics. will d/c IM Ativan in favor of Zyprexa IM for failure to take Latuda. Does take Lorazepam prn PO, adjust dose and frequency and monitor use. Will repeat labs and PO intake so variable and hard to track. 02/09/2021--admitted to U. Ativan 2mg SL TID ordered. Track Is&Os. Vitals BID. 02/10/2021--continue with ativan 2mg TID SL. Showing significant improving in catatonic symptoms since ativan trial last night. If he continues to walk around no need for DVT prophylaxis. Will consider if 302 needs to be converted to 303 based on progress today. 02/11/2021--continue with scheduled ativan. Less engagement today but still eating and drinking. Plan for likely 303 given his inability/reluctance to engage in treatment. Reviewed outside records. 02/12/2021--continues to refuse ativan today and won't engage with anyone nor leave his bed except to use the bathroom and to eat at night. Given some movement in the evening and to the bathroom he doesn't require DVT prophylaxis at this time but this remains a concern should he clinically worsen and will continue to monitor his nutritional and medical status closely. 02/13/2021--placed on 303 status due to ongoing decompensation due to catatonia including refusal of medication, not eating, not drinking, not communicating with anyone and lying in bed all day. Once catatonia begins to improve with treatment will aim to start latuda which helped previously. [place] to require medications over objection for ativan to treat catatonia. If catatonia does not respond quickly to ativan then will consider if DVT prophylaxis should be initiated. 02/14/2021--no significant change in behaviors with additional of scheduled ativan 2 mg BID as medication over objection. Given concern for skin breakdown consult was placed for wound nurse. Given concern for possible DVT and after discussion with hospitalist will begin lovenox 40mg subQ daily. David was able to vocalize consent for this as he remains mute and unable/unwilling to engage but explained the risks, benefits, alternatives and rationale for lovenox and that we will be offering this to him. 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 02/15/2021--Have ruled out catatonia given inconsistent response to ativan trial, multiple observed examples of volitional movement immediately following periods of patient lying in bed and mute. Subsequent catatonia scales have been negative and patient feels that his symptoms represent withdrawn features of anxiety and depression. Given bipolar depression with neurovegetative features will start latuda. Encouragingly he is eating more and drinking more and got out of bed twice last night. Risk Factors Assessment Male: Yes : Yes Do You Have Access To A Gun?: No (in supportive living enviornment, pt unable to answer ) Mental Health Diagnoses: Yes Previous Psychiatric Hospitalization: Yes Protective Factors Assessment Employed: No Interval History Identifying Information 40 yo man with history of catatonia, depression, possible BPAD vs schizophrenia admitted due to concern for catatonia and decompensation with failure of self- care at [facility]. Admitted on 302, now 303. Chief Complaint mute Review of Systems Sleep Information Total Hours of Sleep: 6 Sleep Comments: pt on q-15 minute checks. pt moving sleeping positions x2 during the night. Meal Information Percent Meal Consumed - Breakfast: 0 Percent Meal Consumed - Lunch: 0 Percent Meal Consumed - Dinner: 0 Nutrition Comment: pt. is drinking fluids Subjective Subjective Chart and events of last 24 hours reviewed and discussed with multidisciplinary treatment team including nursing and social work. Did not leave his room yesterday nor engage in any conversation nor meals. Today Daivd was sitting up in bed with his eyes open. He refused to engage in any conversation regarding general topics like the weather outside nor about any topics related to his current mood, medications, treatment. Spent more than 20 minutes in the care and coordination of this patient of which greater than 50% was dedicated to counseling and coordination of care. Physical Exam Psychiatric Orientation: alert; + uncooperative Apperance: + disheveled Eye Contact: + poor eye contact Motor Behavior: no abnormal motor movements and + psychomotor retardation Speech: + mute Affect: + flat affect Insight: + limited insight Judgement: + severely impaired judgement Vital Signs (Past 24 Hours) Last Vital Signs Temp 36.8 C 02/23/21 21:18 Pulse 83 02/24/21 06:00 Resp 16 02/24/21 06:00 BP 121/78 02/24/21 06:00 Pulse Ox 95 02/23/21 21:18 Results & Data ([facility]) Current Inpatient Medications Current Inpatient Medications: Current Inpatient Medications Acetaminophen (Acetaminophen 325 Mg Tab) 650 mg PO Q4H PRN PRN Reason: Headache or Minor Fever Stop: 03/11/21 02:03 Last Admin: 02/15/21 18:44 Dose: 650 mg Documented by: Al Hydrox/Mg Hydrox/Simethicone (Aluminum/Magnesium Susp 30 Ml Udc) 30 ml PO Q4H PRN PRN Reason: GI Upset Stop: 03/11/21 02:03 Bismuth Subsalicylate (Bismuth Subsalicylate Liqd 236 Ml) 15 ml PO PRN PRN PRN Reason: Loose Stool Stop: 03/11/21 02:03 Enoxaparin Sodium (Enoxaparin Inj 40 Mg/0.4 Ml Syr) 40 mg SQ QDD OG Stop: 03/19/21 17:44 Last Admin: 02/23/21 17:00 Dose: 40 mg Documented by: Hydroxyzine HCl (Hydroxyzine Hcl 25 Mg Tab) 50 mg PO HSZ PRN PRN Reason: Insomnia Stop: 03/11/21 02:03 Hydroxyzine HCl (Hydroxyzine Hcl 25 Mg Tab) 25 mg PO Q4H PRN PRN Reason: Anxiety Stop: 03/11/21 02:03 Lorazepam (Lorazepam 1 Mg Tab) 1 mg PO Q6 PRN PRN Reason: Anxiety/Agitation Stop: 03/15/21 22:23 Magnesium Hydroxide (Magnesium Hydroxide Susp 30 Ml Udc) 30 ml PO DAILY PRN PRN Reason: Constipation Stop: 03/11/21 02:03 Miscellaneous (Remove Patch Selegiline (Emsam)) 1 ea N/A Q24H OG Stop: 03/24/21 08:58 Last Admin: 02/24/21 08:59 Dose: 1 ea Documented by: Selegiline (Selegiline 6 Mg/24hr Tdsy) 6 mg TD DAILY OG Stop: 03/23/21 08:59 Last Admin: 02/24/21 08:58 Dose: 6 mg Documented by: Sodium Chloride (Sodium Chloride 0.65% Na Soln 45 Ml ([place])) 1 - 2 sprays NA PRN PRN PRN Reason: Nasal Dryness/Congestion Stop: 03/11/21 02:03 Mental Health & Subst Abuse Tx Psychiatrist Name of Psychiatrist: Oniel Negron Psychiatrist's Date of Appointment with Psychiatrist: 03/13/21 Time of Appointment with Psychiatrist: 9:20am Psychiatric Appointment Comment: Zoom *is on waiting list for appt. sooner Therapist Name of Therapist: Unknown Objective C Developer Name of Objective C Developer: Angel Johns Post Discharge Appointments Primary Care Physician Name Of Family Doctor: Unknown
[2021-02-24] MEDS: ENOXAPARIN INJ 40 MG/0.4 ML SYR SQ SCH (16:34)
[2021-02-25] MEDS: [UNRECOGNIZED DRUG - REMARK] SCH (09:38)
[2021-02-25] MEDS: SELEGILINE 6 MG/24 HR TD SCH (09:39)
--- NOTE | 2021-02-25 16:18 | Psychiatric Progress Note ---
Date of Service February 25, 2021 Impression / Recommendations Impression The patient is a 40 year old with a history of schizophrenia vs BPAD, and depression who was admitted for failure of self-care and worsening decompensation. The patient is deemed unstable and requires psychiatric h ospitalization for diagnostic clarification, safety and stabilization, medication management and development of further coping skills. Initially focussed on Ativan dosing for catatonia but no consistent response to meds over objection. Patient seemed worse on Zyprexa, very poor PO. Started Emsam (MAOI patch on 02/21/21). Will focus on medication over objection and readdress possible ECT or antidepressant when improved. On day 5 of selegiline trial. Ideally at two weeks of MAOI treatment we may begin to see antidepressant effects and hopefully more engagement in ADLs and with staff. -303 status, filed for 304 status with hearing tomorrow -Removed MNPR as he has gone multiple days without being incontinent of urine (1) Bipolar disorder with depression: 02/25/21--Continues to demonstrate severe depression with neurovegetative symptoms with no engagement with staff. Behavioral plan challenged by finding a reward/incentive that he enjoys. Continuing to encourage behavioral activation. Petitioned for 304 status with hearing scheduled for tomorrow given ongoing symptom burden and need for ongoing treatment. Remains on lovenox for DVT pro phylaxis. Continue with Emsam patch. 02/24/21--Remains isolative and will not engage verbally. Encouragingly is attending slightly more to some of his ADLs, will continue with behavioral plan in hopes to continue encouraging behavioral activation although food does not seem to be a good motivator/reward for him. Will continue to think about other possible motivators for him to help encourage increased activity, po intake and engagement with therapeutic milieu. No signs of HTN or other side effects from MAOI at this point. 02/23/21--Continues to demonstrate neurovegetative symptoms of depression, remaining in bed most of the day but sometimes more engagement in the evenings. Will implement behavioral plan to encourage behavioral activation to treat neurovegetative symptoms in conjunction with Emsam as well as to encourage increased participation with ADLs. Nursing to provide him with tools to help him eat and promote good hygiene (brining in meals, supplies to wash up) and then if he does this independently will bring in ice cream or chips as reward to see if this helps with activation and increased po intake. 02/22/21--neurologic work up with EEG and brain MRI unremarkable, continue Emsam trial. 02/21/21--complex differential--depression with psychotic features in a patient with bipolar disorder most likely, certainly not typcial catatonia. No hx of hyperphagia or hypersexuality known that would suggest Kleine-Hess syndrome. Will proceed with Emsam patch 6 mg trial as only means to administer antidepressant. Will check with an ECT facility to determine if can treat patient if pursue a court order (will await emsam trial first). MRI brain (patient will need various x rays first as can't answer screening questions, no hx of pacemaker on chart). bedside EEG to rule out status epilepticus. 02/19/21--non-formulary request for Emsam patch. Hasn't taken antidepressants for at least 6 weeks. Would reconsider current med doses when this becomes available. without antidepressant he will continue to decompensate medically and is at significant risk of further decompensation. 02/17/21--lytes, Bun/Cr improved; given sleep phase shift desirable to shift antipsychotic to pm meal with IM Zyprexa for refusal. Bedside EEG likely poor quality/low yeild but consider if no improvement. 02/16/21--Reviewed care by Dr. Garces in italics. will d/c IM Ativan in favor of Zyprexa IM for failure to take Latuda. Does take Lorazepam prn PO, adjust dose and frequency and monitor use. Will repeat labs and PO intake so variable and hard to track. 02/09/2021--admitted to U. Ativan 2mg SL TID ordered. Track Is&Os. Vitals BID. 02/10/2021--continue with ativan 2mg TID SL. Showing significant improving in catatonic symptoms since ativan trial last night. If he continues to walk around no need for DVT prophylaxis. Will consider if 302 needs to be converted to 303 based on progress today. 02/11/2021--continue with scheduled ativan. Less engagement today but still eating and drinking. Plan for likely 303 given his inability/reluctance to engage in treatment. Reviewed outside records. 02/12/2021--continues to refuse ativan today and won't engage with anyone nor leave his bed except to use the bathroom and to eat at night. Given some movement in the evening and to the bathroom he doesn't require DVT prophylaxis at this time but this remains a concern should he clinically worsen and will continue to monitor his nutritional and medical status closely. 02/13/2021--placed on 303 status due to ongoing decompensation due to catatonia including refusal of medication, not eating, not drinking, not communicating with anyone and lying in bed all day. Once catatonia begins to improve with treatment will aim to start latuda which helped previously. [place] to require medications over objection for ativan to treat catatonia. If catatonia does not respond quickly to ativan then will consider if DVT prophylaxis should be initiated. 02/14/2021--no significant change in behaviors with additional of scheduled ativan 2 mg BID as medication over objection. Given concern for skin breakdown consult was placed for wound nurse. Given concern for possible DVT and after discussion with hospitalist will begin lovenox 40mg subQ daily. David was able to vocalize consent for this as he remains mute and unable/unwilling to engage but explained the risks, benefits, alternatives and rationale for lovenox and that we will be offering this to him. 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 02/15/2021--Have ruled out catatonia given inconsistent response to ativan trial, multiple observed examples of volitional movement immediately following periods of patient lying in bed and mute. Subsequent catatonia scales have been negative and patient feels that his symptoms represent withdrawn features of anxiety and depression. Given bipolar depression with neurovegetative features will start latuda. Encouragingly he is eating more and drinking more and got out of bed twice last night. Risk Factors Assessment Male: Yes : Yes Do You Have Access To A Gun?: No (in supportive living enviornment, pt unable to answer ) Mental Health Diagnoses: Yes Previous Psychiatric Hospitalization: Yes Protective Factors Assessment Employed: No Interval History Identifying Information 40 yo man with history of catatonia, depression, possible BPAD vs schizophrenia admitted due to concern for catatonia and decompensation with failure of self- care at [facility]. Admitted on 302, now 303. Chief Complaint mute. Review of Systems Sleep Information Total Hours of Sleep: 7 Sleep Comments: pt appeared to shift position x3 during the night. pt on q-15 minute checks Meal Information Percent Meal Consumed - Breakfast: 0 Percent Meal Consumed - Lunch: 0 Percent Meal Consumed - Dinner: 0 Nutrition Comment: pt. is drinking fluids Subjective Subjective Chart and events of last 24 hours reviewed and discussed with multidisciplinary treatment team including nursing and social work. No acute events reported overnight. Slept well. Did not eat. David is sitting in bed with his eyes closed today and will not interact on attempts to speak with him. He remains mute. Spent more than 20 minutes in the care and coordination of this patient of which greater than 50% was dedicated to counseling and coordination of care. Physical Exam Psychiatric Orientation: alert; + uncooperative Apperance: + disheveled Eye Contact: + poor eye contact Motor Behavior: no abnormal motor movements and + psychomotor retardation Speech: + mute Affect: + flat affect Insight: + limited insight Judgement: + severely impaired judgement Vital Signs (Past 24 Hours) Last Vital Signs Temp 36.8 C 02/24/21 20:37 Pulse 83 02/25/21 14:11 Resp 16 02/25/21 06:43 BP 123/77 02/25/21 14:11 Pulse Ox 95 02/23/21 21:18 Results & Data ([facility]) Current Inpatient Medications Current Inpatient Medications: Current Inpatient Medications Acetaminophen (Acetaminophen 325 Mg Tab) 650 mg PO Q4H PRN PRN Reason: Headache or Minor Fever Stop: 03/11/21 02:03 Last Admin: 02/15/21 18:44 Dose: 650 mg Documented by: Al Hydrox/Mg Hydrox/Simethicone (Aluminum/Magnesium Susp 30 Ml Udc) 30 ml PO Q4H PRN PRN Reason: GI Upset Stop: 03/11/21 02:03 Bismuth Subsalicylate (Bismuth Subsalicylate Liqd 236 Ml) 15 ml PO PRN PRN PRN Reason: Loose Stool Stop: 03/11/21 02:03 Enoxaparin Sodium (Enoxaparin Inj 40 Mg/0.4 Ml Syr) 40 mg SQ QDD OG Stop: 03/19/21 17:44 Last Admin: 02/24/21 16:34 Dose: 40 mg Documented by: Hydroxyzine HCl (Hydroxyzine Hcl 25 Mg Tab) 50 mg PO HSZ PRN PRN Reason: Insomnia Stop: 03/11/21 02:03 Hydroxyzine HCl (Hydroxyzine Hcl 25 Mg Tab) 25 mg PO Q4H PRN PRN Reason: Anxiety Stop: 03/11/21 02:03 Lorazepam (Lorazepam 1 Mg Tab) 1 mg PO Q6 PRN PRN Reason: Anxiety/Agitation Stop: 03/15/21 22:23 Magnesium Hydroxide (Magnesium Hydroxide Susp 30 Ml Udc) 30 ml PO DAILY PRN PRN Reason: Constipation Stop: 03/11/21 02:03 Miscellaneous (Remove Patch Selegiline (Emsam)) 1 ea N/A Q24H OG Stop: 03/24/21 08:58 Last Admin: 02/25/21 09:38 Dose: 1 ea Documented by: Selegiline (Selegiline 6 Mg/24hr Tdsy) 6 mg TD DAILY OG Stop: 03/23/21 08:59 Last Admin: 02/25/21 09:39 Dose: 6 mg Documented by: Sodium Chloride (Sodium Chloride 0.65% Na Soln 45 Ml ([place])) 1 - 2 sprays NA PRN PRN PRN Reason: Nasal Dryness/Congestion Stop: 03/11/21 02:03 Mental Health & Subst Abuse Tx Psychiatrist Name of Psychiatrist: Oniel Negron Psychiatrist's Date of Appointment with Psychiatrist: 03/13/21 Time of Appointment with Psychiatrist: 9:20am Psychiatric Appointment Comment: Zoom *is on waiting list for appt. sooner Therapist Name of Therapist: Unknown Telegraph Service Clerk Name of Telegraph Service Clerk: Angel Johns Post Discharge Appointments Primary Care Physician Name Of Family Doctor: Unknown
[2021-02-25] MEDS: ENOXAPARIN INJ 40 MG/0.4 ML SYR SQ SCH (17:05)
[2021-02-26] MEDS: SELEGILINE 6 MG/24 HR TD SCH (07:56)
[2021-02-26] MEDS: [UNRECOGNIZED DRUG - REMARK] SCH (07:58)
--- NOTE | 2021-02-26 16:53 | Psychiatric Progress Note ---
Date of Service February 26, 2021 Impression / Recommendations Impression The patient is a 40 year old with a history of schizophrenia vs BPAD, and depression who was admitted for failure of self-care and worsening decompensation. The patient is deemed unstable and requires psychiatric h ospitalization for diagnostic clarification, safety and stabilization, medication management and development of further coping skills. Initially focussed on Ativan dosing for catatonia but no consistent response to meds over objection. Patient seemed worse on Zyprexa, very poor PO. Started Emsam (MAOI patch on 02/21/21). Will focus on medication over objection and readdress possible ECT or antidepressant when improved. 304 status granted. On day 6 of selegiline trial. Ideally at two weeks of MAOI treatment we may begin to see antidepressant effects and hopefully more engagement in ADLs and [facility] staff. -304 status granted 02/26/21 (1) Bipolar disorder with depression: 02/26/21-Continue with Emsam patch. 304 status granted. Ate last night and interacted with staff but no engagement today. 02/25/21--Continues to demonstrate severe depression with neurovegetative symptoms with no engagement with staff. Behavioral plan challenged by finding a reward/incentive that he enjoys. Continuing to encourage behavioral activation. Petitioned for 304 status with hearing scheduled for tomorrow given ongoing symptom burden and need for ongoing treatment. Remains on lovenox for DVT prophylaxis. Continue with Emsam patch. 02/24/21--Remains isolative and will not engage verbally. Encouragingly is attending slightly more to some of his ADLs, will continue with behavioral plan in hopes to continue encouraging behavioral activation although food does not seem to be a good motivator/reward for him. Will continue to think about other possible motivators for him to help encourage increased activity, po intake and engagement with therapeutic milieu. No signs of HTN or other side effects from MAOI at this point. 02/23/21--Continues to demonstrate neurovegetative symptoms of depression, remaining in bed most of the day but sometimes more engagement in the evenings. Will implement behavioral plan to encourage behavioral activation to treat neurovegetative symptoms in conjunction with Emsam as well as to encourage increased participation with ADLs. Nursing to provide him with tools to help him eat and promote good hygiene (brining in meals, supplies to wash up) and then if he does this independently will bring in ice cream or chips as reward to see if this helps with activation and increased po intake. 02/22/21--neurologic work up with EEG and brain MRI unremarkable, continue Emsam trial. 02/21/21--complex differential--depression with psychotic features in a patient with bipolar disorder most likely, certainly not typcial catatonia. No hx of hyperphagia or hypersexuality known that would suggest Kleine-Hess syndrome. Will proceed with Emsam patch 6 mg trial as only means to administer antidepressant. Will check with an ECT facility to determine if can treat patient if pursue a court order (will await emsam trial first). MRI brain (patient will need various x rays first as can't answer screening questions, no hx of pacemaker on chart). bedside EEG to rule out status epilepticus. 02/19/21--non-formulary request for Emsam patch. Hasn't taken antidepressants for at least 6 weeks. Would reconsider current med doses when this becomes available. without antidepressant he will continue to decompensate medically and is at significant risk of further decompensation. 02/17/21--lytes, Bun/Cr improved; given sleep phase shift desirable to shift antipsychotic to pm meal with IM Zyprexa for refusal. Bedside EEG likely poor quality/low yeild but consider if no improvement. 02/16/21--Reviewed care by Dr. Garces in italics. will d/c IM Ativan in favor of Zyprexa IM for failure to take Latuda. Does take Lorazepam prn PO, adjust dose and frequency and monitor use. Will repeat labs and PO intake so variable and hard to track. 02/09/2021--admitted to [facility]. Ativan 2mg SL TID ordered. Track Is&Os. Vitals BID. 02/10/2021--continue with ativan 2mg TID SL. Showing significant improving in catatonic symptoms since ativan trial last night. If he continues to walk around no need for DVT prophylaxis. Will consider if 302 needs to be converted to 303 based on progress today. 02/11/2021--continue with scheduled ativan. Less engagement today but still eating and drinking. Plan for likely 303 given his inability/reluctance to engage in treatment. Reviewed outside records. 02/12/2021--continues to refuse ativan today and won't engage with anyone nor leave his bed except to use the bathroom and to eat at night. Given some movement in the evening and to the bathroom he doesn't require DVT prophylaxis a t this time but this remains a concern should he clinically worsen and will continue to monitor his nutritional and medical status closely. 02/13/2021--placed on 303 status due to ongoing decompensation due to catatonia including refusal of medication, not eating, not drinking, not communicating with anyone and lying in bed all day. Once catatonia begins to improve with treatment will aim to start latuda which helped previously. [place] to require medications over objection for ativan to treat catatonia. If catatonia does not respond quickly to ativan then will consider if DVT prophylaxis should be initiated. 02/14/2021--no significant change in behaviors with additional of scheduled ativan 2 mg BID as medication over objection. Given concern for skin breakdown consult was placed for wound nurse. Given concern for possible DVT and after discussion with hospitalist will begin lovenox 40mg subQ daily. David was able to vocalize consent for this as he remains mute and unable/unwilling to engage but explained the risks, benefits, alternatives and rationale for lovenox and that we will be offering this to him. 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 02/15/2021--Have ruled out catatonia given inconsistent response to ativan trial, multiple observed examples of volitional movement immediately following periods of patient lying in bed and mute. Subsequent catatonia scales have been negative and patient feels that his symptoms represent withdrawn features of anxiety and depression. Given bipolar depression with neurovegetative features will start latuda. Encouragingly he is eating more and drinking more and got out of bed twice last night. Risk Factors Assessment Male: Yes : Yes Do You Have Access To A Gun?: No (in supportive living enviornment, pt unable to answer ) Mental Health Diagnoses: Yes Previous Psychiatric Hospitalization: Yes Protective Factors Assessment Employed: No Interval History Identifying Information 40 yo man with history of catatonia, depression, possible BPAD vs schizophrenia admitted due to concern for catatonia and decompensation with failure of self- care at [facility]. Admitted on 302, now 303. Chief Complaint audible sigh heard Review of Systems Sleep Information Total Hours of Sleep: 6.5 Sleep Comments: pt appeared to shift position x3 during the night. pt on q-15 minute checks Meal Information Percent Meal Consumed - Breakfast: 0 Percent Meal Consumed - Lunch: 0 Percent Meal Consumed - Dinner: 0 Nutrition Comment: pt. is drinking fluids Subjective Subjective Chart and events of last 24 hours reviewed and discussed with multidisciplinary treatment team including nursing and social work. Last evening got out of bed and ate a lot of food, then proceeded to bring snacks into his room and eat in bed, then demanded staff remove his garbage and pickler helper after him as he refused to this himself. Slept well. David remains mute and refuses to engage in any type of interview. Today he was observed to sigh when I attempted to speak with him and remained mute with eyes closed. 304 hearing today with 304 status granted. Spent more than 30 minutes in the care and coordination of this patient of which greater than 50% was dedicated to counseling and coordination of care. Physical Exam Psychiatric Orientation: alert; + uncooperative Apperance: + disheveled Eye Contact: + poor eye contact Motor Behavior: no abnormal motor movements and + psychomotor retardation Speech: + mute Affect: + flat affect Insight: + impaired insight Judgement: + severely impaired judgement Vital Signs (Past 24 Hours) Last Vital Signs Temp 36.8 C 02/25/21 20:00 Pulse 80 02/26/21 14:08 Resp 18 02/26/21 14:08 BP 111/76 02/26/21 14:08 Pulse Ox 95 02/23/21 21:18 Results & Data ([facility]) Current Inpatient Medications Current Inpatient Medications: Current Inpatient Medications Acetaminophen (Acetaminophen 325 Mg Tab) 650 mg PO Q4H PRN PRN Reason: Headache or Minor Fever Stop: 03/11/21 02:03 Last Admin: 02/15/21 18:44 Dose: 650 mg Documented by: Al Hydrox/Mg Hydrox/Simethicone (Aluminum/Magnesium Susp 30 Ml Udc) 30 ml PO Q4H PRN PRN Reason: GI Upset Stop: 03/11/21 02:03 Bismuth Subsalicylate (Bismuth Subsalicylate Liqd 236 Ml) 15 ml PO PRN PRN PRN Reason: Loose Stool Stop: 03/11/21 02:03 Enoxaparin Sodium (Enoxaparin Inj 40 Mg/0.4 Ml Syr) 40 mg SQ QDD OG Stop: 03/19/21 17:44 Last Admin: 02/25/21 17:05 Dose: 40 mg Documented by: Hydroxyzine HCl (Hydroxyzine Hcl 25 Mg Tab) 50 mg PO HSZ PRN PRN Reason: Insomnia Stop: 03/11/21 02:03 Hydroxyzine HCl (Hydroxyzine Hcl 25 Mg Tab) 25 mg PO Q4H PRN PRN Reason: Anxiety Stop: 03/11/21 02:03 Lorazepam (Lorazepam 1 Mg Tab) 1 mg PO Q6 PRN PRN Reason: Anxiety/Agitation Stop: 03/15/21 22:23 Magnesium Hydroxide (Magnesium Hydroxide Susp 30 Ml Udc) 30 ml PO DAILY PRN PRN Reason: Constipation Stop: 03/11/21 02:03 Miscellaneous (Remove Patch Selegiline (Emsam)) 1 ea N/A Q24H OG Stop: 03/24/21 08:58 Last Admin: 02/26/21 07:58 Dose: Not Given Documented by: Selegiline (Selegiline 6 Mg/24hr Tdsy) 6 mg TD DAILY OG Stop: 03/23/21 08:59 Last Admin: 02/26/21 07:56 Dose: 6 mg Documented by: Sodium Chloride (Sodium Chloride 0.65% Na Soln 45 Ml ([place])) 1 - 2 sprays NA PRN PRN PRN Reason: Nasal Dryness/Congestion Stop: 03/11/21 02:03 Mental Health & Subst Abuse Tx Psychiatrist Name of Psychiatrist: Oniel Negron Psychiatrist's Date of Appointment with Psychiatrist: 03/13/21 Time of Appointment with Psychiatrist: 9:20am Psychiatric Appointment Comment: Zoom *is on waiting list for appt. sooner Therapist Name of Therapist: Unknown Account Support Rep Name of Account Support Rep: Angel Johns Post Discharge Appointments Primary Care Physician Name Of Family Doctor: Unknown
[2021-02-26] MEDS: ENOXAPARIN INJ 40 MG/0.4 ML SYR SQ SCH (18:13)
[2021-02-27] MEDS: SELEGILINE 6 MG/24 HR TD SCH (08:25)
[2021-02-27] MEDS: [UNRECOGNIZED DRUG - REMARK] SCH (08:32)
--- NOTE | 2021-02-27 17:41 | Psychiatric Progress Note ---
Date of Service February 27, 2021 Impression / Recommendations Impression The patient is a 40 year old with a history of schizophrenia vs BPAD, and depression who was admitted for failure of self-care and worsening decompensation. The patient is deemed unstable and requires psychiatric h ospitalization for diagnostic clarification, safety and stabilization, medication management and development of further coping skills. Initially focussed on Ativan dosing for catatonia but no consistent response to meds over objection. Patient seemed worse on Zyprexa, very poor PO. Started Emsam (MAOI patch on 02/21/21). Will focus on medication over objection and readdress possible ECT or antidepressant when improved. 304 status granted. On day 7 of selegiline trial. Ideally at two weeks of MAOI treatment we may begin to see antidepressant effects and hopefully more engagement in ADLs and wi th staff. -304 status granted 02/26/21 (1) Bipolar disorder with depression: 02/27/21--Continue with Emsam patch. Getting out of bed more in the evenings and eating more. Lack of engagement during the day was volitional- pulling blanket over his head after he saw me enter his room. Also becoming more irritable with staff when he is encouraged to do more on his own for behavioral activation. 02/26/21-Continue with Emsam patch. 304 status granted. Ate last night and interacted with staff but no engagement today. 02/25/21--Continues to demonstrate severe depression with neurovegetative symptoms with no engagement with staff. Behavioral plan challenged by finding a reward/incentive that he enjoys. Continuing to encourage behavioral activation. Petitioned for 304 status with hearing scheduled for tomorrow given ongoing symptom burden and need for ongoing treatment. Remains on lovenox for DVT prophylaxis. Continue with Emsam patch. 02/24/21--Remains isolative and will not engage verbally. Encouragingly is attending slightly more to some of his ADLs, will continue with behavioral plan in hopes to continue encouraging behavioral activation although food does not seem to be a good motivator/reward for him. Will continue to think about other possible motivators for him to help encourage increased activity, po intake and engagement with therapeutic milieu. No signs of HTN or other side effects from MAOI at this point. 02/23/21--Continues to demonstrate neurovegetative symptoms of depression, remaining in bed most of the day but sometimes more engagement in the evenings. Will implement behavioral plan to encourage behavioral activation to treat neurovegetative symptoms in conjunction with Emsam as well as to encourage increased participation with ADLs. Nursing to provide him with tools to help him eat and promote good hygiene (brining in meals, supplies to wash up) and then if he does this independently will bring in ice cream or chips as reward to see if this helps with activation and increased po intake. 02/22/21--neurologic work up with EEG and brain MRI unremarkable, continue Emsam trial. 02/21/21--complex differential--depression with psychotic features in a patient with bipolar disorder most likely, certainly not typcial catatonia. No hx of hyperphagia or hypersexuality known that would suggest Kleine-Hess syndrome. Will proceed with Emsam patch 6 mg trial as only means to administer antidepressant. Will check with an ECT facility to determine if can treat patient if pursue a court order (will await emsam trial first). MRI brain (patient will need various x rays first as can't answer screening questions, no hx of pacemaker on chart). bedside EEG to rule out status epilepticus. 02/19/21--non-formulary request for Emsam patch. Hasn't taken antidepressants for at least 6 weeks. Would reconsider current med doses when this becomes available. without antidepressant he will continue to decompensate medically and is at significant risk of further decompensation. 02/17/21--lytes, Bun/Cr improved; given sleep phase shift desirable to shift antipsychotic to pm meal with IM Zyprexa for refusal. Bedside EEG likely poor quality/low yeild but consider if no improvement. 02/16/21--Reviewed care by Dr. Garces in italics. will d/c IM Ativan in favor of Zyprexa IM for failure to take Latuda. Does take Lorazepam prn PO, adjust dose and frequency and monitor use. Will repeat labs and PO intake so variable and hard to track. 02/09/2021--admitted to [facility]. Ativan 2mg SL TID ordered. Track Is&Os. Vitals BID. 02/10/2021--continue with ativan 2mg TID SL. Showing significant improving in catatonic symptoms since ativan trial last night. If he continues to walk around no need for DVT prophylaxis. Will consider if 302 needs to be converted to 303 based on progress today. 02/11/2021--continue with scheduled ativan. Less engagement today but still eating and drinking. Plan for likely 303 given his inability/reluctance to engage in treatment. Reviewed outside records. 02/12/2021--continues to refuse ativan today and won't engage with anyone nor leave his bed except to use the bathroom and to eat at night. Given some movement in the evening and to the bathroom he doesn't require DVT prophylaxis at this time but this remains a concern should he clinically worsen and will continue to monitor his nutritional and medical status closely. 02/13/2021--placed on 303 status due to ongoing decompensation due to catatonia including refusal of medication, not eating, not drinking, not communicating with anyone and lying in bed all day. Once catatonia begins to improve with treatment will aim to start latuda which helped previously. [place] to require medications over objection for ativan to treat catatonia. If catatonia does not respond quickly to ativan then will consider if DVT prophylaxis should be initiated. 02/14/2021--no significant change in behaviors with additional of scheduled ativan 2 mg BID as medication over objection. Given concern for skin breakdown consult was placed for wound nurse. Given concern for possible DVT and after discussion with hospitalist will begin lovenox 40mg subQ daily. David was able to vocalize consent for this as he remains mute and unable/unwilling to engage but explained the risks, benefits, alternatives and rationale for lovenox and that we will be offering this to him. 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 02/15/2021--Have ruled out catatonia given inconsistent response to ativan trial, multiple observed examples of volitional movement immediately following periods of patient lying in bed and mute. Subsequent catatonia scales have been negative and patient feels that his symptoms represent withdrawn features of anxiety and depression. Given bipolar depression with neurovegetative features will start latuda. Encouragingly he is eating more and drinking more and got out of bed twice last night. Risk Factors Assessment Male: Yes : Yes Do You Have Access To A Gun?: No (in supportive living enviornment, pt unable to answer ) Mental Health Diagnoses: Yes Previous Psychiatric Hospitalization: Yes Protective Factors Assessment Employed: No Interval History Identifying Information 40 yo man with history of catatonia, depression, possible BPAD vs schizophrenia admitted due to concern for catatonia and decompensation with failure of self- care at [facility]. Admitted on 302, now 303. Chief Complaint "[]". Review of Systems Sleep Information Total Hours of Sleep: 6.25 Sleep Comments: pt appeared to shift position x3 during the night. pt on q-15 minute checks Meal Information Percent Meal Consumed - Breakfast: 0 Percent Meal Consumed - Lunch: 0 Percent Meal Consumed - Dinner: 0 Nutrition Comment: pt. is drinking fluids Subjective Subjective Chart and events of last 24 hours reviewed and discussed with multidisciplinary treatment team including nursing and social work. No acute events reported overnight. Out of bed late in the evening and eating and walked around. Irritable with staff making demands that they clean up after him. Slept well. Spent the day lying in bed. When I attempted to engage with him he looked at me and then pulled the blanket over his eyes and would not communicate. Spent more than 20 minutes in the care and coordination of this patient of which greater than 50% was dedicated to counseling and coordination of care. Physical Exam Psychiatric Orientation: alert; + uncooperative Apperance: + disheveled Eye Contact: + poor eye contact Motor Behavior: no abnormal motor movements and + psychomotor retardation Speech: + mute Affect: + flat affect Insight: + impaired insight Judgement: + severely impaired judgement Vital Signs (Past 24 Hours) Last Vital Signs Temp 36.8 C 02/26/21 20:26 Pulse 98 H 02/27/21 14:11 Resp 16 02/27/21 06:00 BP 116/79 02/27/21 14:11 Pulse Ox 98 02/26/21 20:26 Results & Data ([facility]) Current Inpatient Medications Current Inpatient Medications: Current Inpatient Medications Acetaminophen (Acetaminophen 325 Mg Tab) 650 mg PO Q4H PRN PRN Reason: Headache or Minor Fever Stop: 03/11/21 02:03 Last Admin: 02/15/21 18:44 Dose: 650 mg Documented by: Al Hydrox/Mg Hydrox/Simethicone (Aluminum/Magnesium Susp 30 Ml Udc) 30 ml PO Q4H PRN PRN Reason: GI Upset Stop: 03/11/21 02:03 Bismuth Subsalicylate (Bismuth Subsalicylate Liqd 236 Ml) 15 ml PO PRN PRN PRN Reason: Loose Stool Stop: 03/11/21 02:03 Enoxaparin Sodium (Enoxaparin Inj 40 Mg/0.4 Ml Syr) 40 mg SQ QDD OG Stop: 03/19/21 17:44 Last Admin: 02/26/21 18:13 Dose: 40 mg Documented by: Hydroxyzine HCl (Hydroxyzine Hcl 25 Mg Tab) 50 mg PO HSZ PRN PRN Reason: Insomnia Stop: 03/11/21 02:03 Hydroxyzine HCl (Hydroxyzine Hcl 25 Mg Tab) 25 mg PO Q4H PRN PRN Reason: Anxiety Stop: 03/11/21 02:03 Lorazepam (Lorazepam 1 Mg Tab) 1 mg PO Q6 PRN PRN Reason: Anxiety/Agitation Stop: 03/15/21 22:23 Magnesium Hydroxide (Magnesium Hydroxide Susp 30 Ml Udc) 30 ml PO DAILY PRN PRN Reason: Constipation Stop: 03/11/21 02:03 Miscellaneous (Remove Patch Selegiline (Emsam)) 1 ea N/A Q24H OG Stop: 03/24/21 08:58 Last Admin: 02/27/21 08:32 Dose: 1 ea Documented by: Selegiline (Selegiline 6 Mg/24hr Tdsy) 6 mg TD DAILY OG Stop: 03/23/21 08:59 Last Admin: 02/27/21 08:25 Dose: 6 mg Documented by: Sodium Chloride (Sodium Chloride 0.65% Na Soln 45 Ml ([place])) 1 - 2 sprays NA PRN PRN PRN Reason: Nasal Dryness/Congestion Stop: 03/11/21 02:03 Mental Health & Subst Abuse Tx Psychiatrist Name of Psychiatrist: Oniel Negron Psychiatrist's Date of Appointment with Psychiatrist: 03/13/21 Time of Appointment with Psychiatrist: 9:20am Psychiatric Appointment Comment: Zoom *is on waiting list for appt. sooner Therapist Name of Therapist: Unknown Yard Coordinator Name of Yard Coordinator: Angel Johns Post Discharge Appointments Primary Care Physician Name Of Family Doctor: Unknown
[2021-02-27] MEDS: ENOXAPARIN INJ 40 MG/0.4 ML SYR SQ SCH (18:08)
[2021-02-28] MEDS: SELEGILINE 6 MG/24 HR TD SCH (08:38)
[2021-02-28] MEDS: [UNRECOGNIZED DRUG - REMARK] SCH (08:42)
--- NOTE | 2021-02-28 16:57 | Psychiatric Progress Note ---
Date of Service February 28, 2021 Impression / Recommendations Impression The patient is a 40 year old with a history of schizophrenia vs BPAD, and depression who was admitted for failure of self-care and worsening decompensation. The patient is deemed unstable and requires psychiatric h ospitalization for diagnostic clarification, safety and stabilization, medication management and development of further coping skills. Initially focussed on Ativan dosing for catatonia but no consistent response to meds over objection. Patient seemed worse on Zyprexa, very poor PO. Started Emsam (MAOI patch on 02/21/21). Will focus on medication over objection and readdress possible ECT or antidepressant when improved. 304 status granted. On day 8 of selegiline trial. Ideally at two weeks of MAOI treatment we may begin to see antidepressant effects and hopefully more engagement in ADLs and wi staff. -304 status granted 02/26/21 (1) Bipolar disorder with depression: 02/28/21--Day 8 of Emsam patch. Now seeing new pattern of daily food intake which is encouraging. Continues to present with regressed behaviors and refusal to interact during the day. 02/27/21--Continue with Emsam patch. Getting out of bed more in the evenings and eating more. Lack of engagement during the day was volitional-pulling blanket over his head after he saw me enter his room. Also becoming more irritable with staff when he is encouraged to do more on his own for behavioral activation. 02/26/21-Continue with Emsam patch. 304 status granted. Ate last night and interacted with staff but no engagement today. 02/25/21--Continues to demonstrate severe depression with neurovegetative symptoms with no engagement with staff. Behavioral plan challenged by finding a reward/incentive that he enjoys. Continuing to encourage behavioral activation. Petitioned for 304 status with hearing scheduled for tomorrow given ongoing symptom burden and need for ongoing treatment. Remains on lovenox for DVT prophylaxis. Continue with Emsam patch. 02/24/21--Remains isolative and will not engage verbally. Encouragingly is attending slightly more to some of his ADLs, will continue with behavioral plan in hopes to continue encouraging behavioral activation although food does not seem to be a good motivator/reward for him. Will continue to think about other possible motivators for him to help encourage increased activity, po intake and engagement with therapeutic milieu. No signs of HTN or other side effects from MAOI at this point. 02/23/21--Continues to demonstrate neurovegetative symptoms of depression, remaining in bed most of the day but sometimes more engagement in the evenings. Will implement behavioral plan to encourage behavioral activation to treat neurovegetative symptoms in conjunction with Emsam as well as to encourage increased participation with ADLs. Nursing to provide him with tools to help him eat and promote good hygiene (brining in meals, supplies to wash up) and then if he does this independently will bring in ice cream or chips as reward to see if this helps with activation and increased po intake. 02/22/21--neurologic work up with EEG and brain MRI unremarkable, continue Emsam trial. 02/21/21--complex differential--depression with psychotic features in a patient with bipolar disorder most likely, certainly not typcial catatonia. No hx of hyperphagia or hypersexuality known that would suggest Kleine-Hess syndrome. Wi ll proceed with Emsam patch 6 mg trial as only means to administer antidepressant. Will check with an ECT facility to determine if can treat patient if pursue a court order (will await emsam trial first). MRI brain (patient will need various x rays first as can't answer screening questions, no hx of pacemaker on chart). bedside EEG to rule out status epilepticus. 02/19/21--non-formulary request for Emsam patch. Hasn't taken antidepressants for at least 6 weeks. Would reconsider current med doses when this becomes available. without antidepressant he will continue to decompensate medically and is at significant risk of further decompensation. 02/17/21--lytes, Bun/Cr improved; given sleep phase shift desirable to shift antipsychotic to pm meal with IM Zyprexa for refusal. Bedside EEG likely poor quality/low yeild but consider if no improvement. 02/16/21--Reviewed care by Dr. Garces in italics. will d/c IM Ativan in favor of Zyprexa IM for failure to take Latuda. Does take Lorazepam prn PO, adjust dose and frequency and monitor use. Will repeat labs and PO intake so variable and hard to track. 02/09/2021--admitted to [facility]. Ativan 2mg SL TID ordered. Track Is&Os. Vitals BID. 02/10/2021--continue with ativan 2mg TID SL. Showing significant improving in catatonic symptoms since ativan trial last night. If he continues to walk around no need for DVT prophylaxis. Will consider if 302 needs to be converted to 303 based on progress today. 02/11/2021--continue with scheduled ativan. Less engagement today but still eating and drinking. Plan for likely 303 given his inability/reluctance to engage in treatment. Reviewed outside records. 02/12/2021--continues to refuse ativan today and won't engage with anyone nor leave his bed except to use the bathroom and to eat at night. Given some movement in the evening and to the bathroom he doesn't require DVT prophylaxis at this time but this remains a concern should he clinically worsen and will continue to monitor his nutritional and medical status closely. 02/13/2021--placed on 303 status due to ongoing decompensation due to catatonia including refusal of medication, not eating, not drinking, not communicating with anyone and lying in bed all day. Once catatonia begins to improve with treatment will aim to start latuda which helped previously. [place] to require medications over objection for ativan to treat catatonia. If catatonia does not respond quickly to ativan then will consider if DVT prophylaxis should be initiated. 02/14/2021--no significant change in behaviors with additional of scheduled ativa n 2 mg BID as medication over objection. Given concern for skin breakdown consult was placed for wound nurse. Given concern for possible DVT and after discussion with hospitalist will begin lovenox 40mg subQ daily. David was able to vocalize consent for this as he remains mute and unable/unwilling to engage but explained the risks, benefits, alternatives and rationale for lovenox and that we will be offering this to him. 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 02/15/2021--Have ruled out catatonia given inconsistent response to ativan trial, multiple observed examples of volitional movement immediately following periods of patient lying in bed and mute. Subsequent catatonia scales have been negative and patient feels that his symptoms represent withdrawn features of anxiety and depression. Given bipolar depression with neurovegetative features will start latuda. Encouragingly he is eating more and drinking more and got out of bed twice last night. Risk Factors Assessment Male: Yes : Yes Do You Have Access To A Gun?: No (in supportive living enviornment, pt unable to answer ) Mental Health Diagnoses: Yes Previous Psychiatric Hospitalization: Yes Protective Factors Assessment Employed: No Interval History Identifying Information 40 yo man with history of catatonia, depression, possible BPAD vs schizophrenia admitted due to concern for catatonia and decompensation with failure of self- care at [facility]. Admitted on 302, now 303. Chief Complaint mute Review of Systems Sleep Information Total Hours of Sleep: 7.25 Sleep Comments: pt appeared to shift position x3 during the night. pt on q-15 minute checks Meal Information Percent Meal Consumed - Breakfast: 5 Percent Meal Consumed - Lunch: 0 Percent Meal Consumed - Dinner: 0 Nutrition Comment: a few bites of food; pt. did drink juice and water Subjective Subjective Patient was seen & assessed and interval progress reviewed with treatment team nursing and social work. became upset with repositioning last night. Later ate snacks and cereal. using urinal. He refuses to engage with me today. Lying in bed with face covered with blanket. Physical Exam Psychiatric Orientation: alert; + uncooperative Apperance: + disheveled Eye Contact: + poor eye contact Motor Behavior: no abnormal motor movements and + psychomotor retardation Speech: + mute Affect: + flat affect Insight: + impaired insight Judgement: + severely impaired judgement Vital Signs (Past 24 Hours) Last Vital Signs Temp 36.5 C 02/28/21 06:37 Pulse 103 H 02/28/21 06:37 Resp 16 02/27/21 21:07 BP 116/76 02/28/21 06:37 Pulse Ox 98 02/26/21 20:26 Results & Data ([facility]) Current Inpatient Medications Current Inpatient Medications: Current Inpatient Medications Acetaminophen (Acetaminophen 325 Mg Tab) 650 mg PO Q4H PRN PRN Reason: Headache or Minor Fever Stop: 03/11/21 02:03 Last Admin: 02/15/21 18:44 Dose: 650 mg Documented by: Al Hydrox/Mg Hydrox/Simethicone (Aluminum/Magnesium Susp 30 Ml Udc) 30 ml PO Q4H PRN PRN Reason: GI Upset Stop: 03/11/21 02:03 Bismuth Subsalicylate (Bismuth Subsalicylate Liqd 236 Ml) 15 ml PO PRN PRN PRN Reason: Loose Stool Stop: 03/11/21 02:03 Enoxaparin Sodium (Enoxaparin Inj 40 Mg/0.4 Ml Syr) 40 mg SQ QDD OG Stop: 03/19/21 17:44 Last Admin: 02/27/21 18:08 Dose: 40 mg Documented by: Hydroxyzine HCl (Hydroxyzine Hcl 25 Mg Tab) 50 mg PO HSZ PRN PRN Reason: Insomnia Stop: 03/11/21 02:03 Hydroxyzine HCl (Hydroxyzine Hcl 25 Mg Tab) 25 mg PO Q4H PRN PRN Reason: Anxiety Stop: 03/11/21 02:03 Lorazepam (Lorazepam 1 Mg Tab) 1 mg PO Q6 PRN PRN Reason: Anxiety/Agitation Stop: 03/15/21 22:23 Magnesium Hydroxide (Magnesium Hydroxide Susp 30 Ml Udc) 30 ml PO DAILY PRN PRN Reason: Constipation Stop: 03/11/21 02:03 Miscellaneous (Remove Patch Selegiline (Emsam)) 1 ea N/A Q24H OG Stop: 03/24/21 08:58 Last Admin: 02/28/21 08:42 Dose: 1 ea Documented by: Selegiline (Selegiline 6 Mg/24hr Tdsy) 6 mg TD DAILY OG Stop: 03/23/21 08:59 Last Admin: 02/28/21 08:38 Dose: 6 mg Documented by: Sodium Chloride (Sodium Chloride 0.65% Na Soln 45 Ml ([place])) 1 - 2 sprays NA PRN PRN PRN Reason: Nasal Dryness/Congestion Stop: 03/11/21 02:03 Mental Health & Subst Abuse Tx Psychiatrist Name of Psychiatrist: Oniel Negron Psychiatrist's Date of Appointment with Psychiatrist: 03/13/21 Time of Appointment with Psychiatrist: 9:20am Psychiatric Appointment Comment: Zoom *is on waiting list for appt. sooner Therapist Name of Therapist: Unknown Stenciler Name of Stenciler: Angel Johns Post Discharge Appointments Primary Care Physician Name Of Family Doctor: Unknown
[2021-02-28] MEDS: ENOXAPARIN INJ 40 MG/0.4 ML SYR SQ SCH (17:13)
--- NOTE | 2021-03-01 08:46 | Psychiatric Progress Note ---
Date of Service March 01, 2021 Impression / Recommendations Impression The patient is a 40 year old with a history of schizophrenia vs BPAD, and depression who was admitted for failure of self-care and worsening decompensation. The patient is deemed unstable and requires psychiatric h ospitalization for diagnostic clarification, safety and stabilization, medication management and development of further coping skills. Initially focussed on Ativan dosing for catatonia but no consistent response to meds over objection. Patient seemed worse on Zyprexa, very poor PO. Started Emsam (MAOI patch on 02/21/21). Will focus on medication over objection and readdress possible ECT or antidepressant when improved. 304 status granted. On day 9 of selegiline trial. Ideally at two weeks of MAOI treatment we may begin to see antidepressant effects and hopefully more engagement in ADLs and wi th staff. If no progress at that point then will consider potential referral to [facility] as he as required previously. -304 status granted 02/26/21 (1) Bipolar disorder with depression: 03/01/21--Day 9 of Emsam patch. Continuing with behavioral plan to encourage behavioral activation-he was provided with plan with goals of having him come out of his room to eat meals, cooperate with repositioning, stand up when his sheets are changed/or if he prefers to stay in bed until the evening then clean sheets can be provided for him to put on the bed or request help putting on the bed in the evening, and continue independently voiding in his bedside urinal, shower can be started for him but he should be encouraged to get into the shower on his own, encourage him to address basic hygiene by continuing to provide him with easy access to his toothbrush, shampoo, etc. 02/28/21--Day 8 of Emsam patch. Now seeing new pattern of daily food intake which is encouraging. Continues to present with regressed behaviors and refusal to interact during the day. 02/27/21--Continue with Emsam patch. Getting out of bed more in the evenings and eating more. Lack of engagement during the day was volitional-pulling blanket over his head after he saw me enter his room. Also becoming more irritable with staff when he is encouraged to do more on his own for behavioral activation. 02/26/21-Continue with Emsam patch. 304 status granted. Ate last night and interacted with staff but no engagement today. 02/25/21--Continues to demonstrate severe depression with neurovegetative symptoms with no engagement with staff. Behavioral plan challenged by finding a reward/incentive that he enjoys. Continuing to encourage behavioral activation. Petitioned for 304 status with hearing scheduled for tomorrow given ongoing symptom burden and need for ongoing treatment. Remains on lovenox for DVT prophylaxis. Continue with Emsam patch. 02/24/21--Remains isolative and will not engage verbally. Encouragingly is attending slightly more to some of his ADLs, will continue with behavioral plan in hopes to continue encouraging behavioral activation although food does not seem to be a good motivator/reward for him. Will continue to think about other possible motivators for him to help encourage increased activity, po intake and engagement with therapeutic milieu. No signs of HTN or other side effects from MAOI at this point. 02/23/21--Continues to demonstrate neurovegetative symptoms of depression, remaining in bed most of the day but sometimes more engagement in the evenings. Will implement behavioral plan to encourage behavioral activation to treat neurovegetative symptoms in conjunction with Emsam as well as to encourage increased participation with ADLs. Nursing to provide him with tools to help him eat and promote good hygiene (brining in meals, supplies to wash up) and then if he does this independently will bring in ice cream or chips as reward to see if this helps with activation and increased po intake. 02/22/21--neurologic work up with EEG and brain MRI unremarkable, continue Emsam trial. 02/21/21--complex differential--depression with psychotic features in a patient with bipolar disorder most likely, certainly not typcial catatonia. No hx of hyperphagia or hypersexuality known that would suggest Kleine-Hess syndrome. Wi ll proceed with Emsam patch 6 mg trial as only means to administer antidepressant. Will check with an ECT facility to determine if can treat patient if pursue a court order (will await emsam trial first). MRI brain (patient will need various x rays first as can't answer screening questions, no hx of pacemaker on chart). bedside EEG to rule out status epilepticus. 02/19/21--non-formulary request for Emsam patch. Hasn't taken antidepressants for at least 6 weeks. Would reconsider current med doses when this becomes available. without antidepressant he will continue to decompensate medically and is at significant risk of further decompensation. 02/17/21--lytes, Bun/Cr improved; given sleep phase shift desirable to shift antipsychotic to pm meal with IM Zyprexa for refusal. Bedside EEG likely poor quality/low yeild but consider if no improvement. 02/16/21--Reviewed care by Dr. Garces in italics. will d/c IM Ativan in favor of Zyprexa IM for failure to take Latuda. Does take Lorazepam prn PO, adjust dose and frequency and monitor use. Will repeat labs and PO intake so variable and hard to track. 02/09/2021--admitted to [facility]. Ativan 2mg SL TID ordered. Track Is&Os. Vitals BID. 02/10/2021--continue with ativan 2mg TID SL. Showing significant improving in catatonic symptoms since ativan trial last night. If he continues to walk around no need for DVT prophylaxis. Will consider if 302 needs to be converted to 303 based on progress today. 02/11/2021--continue with scheduled ativan. Less engagement today but still eating and drinking. Plan for likely 303 given his inability/reluctance to engage in treatment. Reviewed outside records. 02/12/2021--continues to refuse ativan today and won't engage with anyone nor leave his bed except to use the bathroom and to eat at night. Given some movement in the evening and to the bathroom he doesn't require DVT prophylaxis at this time but this remains a concern should he clinically worsen and will continue to monitor his nutritional and medical status closely. 02/13/2021--placed on 303 status due to ongoing decompensation due to catatonia including refusal of medication, not eating, not drinking, not communicating with anyone and lying in bed all day. Once catatonia begins to improve with treatment will aim to start latuda which helped previously. [place] to require medications over objection for ativan to treat catatonia. If catatonia does not respond quickly to ativan then will consider if DVT prophylaxis should be initiated. 02/14/2021--no significant change in behaviors with additional of scheduled ativa n 2 mg BID as medication over objection. Given concern for skin breakdown consult was placed for wound nurse. Given concern for possible DVT and after discussion with hospitalist will begin lovenox 40mg subQ daily. David was able to vocalize consent for this as he remains mute and unable/unwilling to engage but explained the risks, benefits, alternatives and rationale for lovenox and that we will be offering this to him. 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 02/15/2021--Have ruled out catatonia given inconsistent response to ativan trial, multiple observed examples of volitional movement immediately following periods of patient lying in bed and mute. Subsequent catatonia scales have been negative and patient feels that his symptoms represent withdrawn features of anxiety and depression. Given bipolar depression with neurovegetative features will start latuda. Encouragingly he is eating more and drinking more and got out of bed twice last night. Risk Factors Assessment Male: Yes : Yes Do You Have Access To A Gun?: No (in supportive living enviornment, pt unable to answer ) Mental Health Diagnoses: Yes Previous Psychiatric Hospitalization: Yes Protective Factors Assessment Employed: No Interval History Identifying Information 40 yo man with history of catatonia, depression, possible BPAD vs schizophrenia admitted due to concern for catatonia and decompensation with failure of self- care at [facility]. Admitted on 302, now 303. Chief Complaint mute Review of Systems Sleep Information Total Hours of Sleep: 6 Sleep Comments: pt appeared to shift position x3 during the night. pt on q-15 minute checks Meal Information Percent Meal Consumed - Breakfast: 5 Percent Meal Consumed - Lunch: 0 Percent Meal Consumed - Dinner: 0 Nutrition Comment: a few bites of food; pt. did drink juice and water Subjective Subjective Patient was seen & assessed and interval progress reviewed with treatment team nursing and social work. He spoke briefly with staff to request a different beverage yesterday. He drank liquids. He did not eat anything. Mute and keeps eyes closed during his encounter with me. Lying in bed with shirt off with blanket over his lower half of his body. Physical Exam Psychiatric Orientation: alert; + uncooperative Apperance: + disheveled Eye Contact: + poor eye contact Motor Behavior: no abnormal motor movements and + psychomotor retardation Speech: + mute Affect: + flat affect Insight: + impaired insight Judgement: + severely impaired judgement Vital Signs (Past 24 Hours) Last Vital Signs Temp 36.8 C 03/01/21 06:00 Pulse 97 H 03/01/21 06:00 Resp 16 03/01/21 06:00 BP 115/76 03/01/21 06:00 Pulse Ox 98 02/26/21 20:26 Results & Data ([facility]) Current Inpatient Medications Current Inpatient Medications: Current Inpatient Medications Acetaminophen (Acetaminophen 325 Mg Tab) 650 mg PO Q4H PRN PRN Reason: Headache or Minor Fever Stop: 03/11/21 02:03 Last Admin: 02/15/21 18:44 Dose: 650 mg Documented by: Al Hydrox/Mg Hydrox/Simethicone (Aluminum/Magnesium Susp 30 Ml Udc) 30 ml PO Q4H PRN PRN Reason: GI Upset Stop: 03/11/21 02:03 Bismuth Subsalicylate (Bismuth Subsalicylate Liqd 236 Ml) 15 ml PO PRN PRN PRN Reason: Loose Stool Stop: 03/11/21 02:03 Enoxaparin Sodium (Enoxaparin Inj 40 Mg/0.4 Ml Syr) 40 mg SQ QDD OG Stop: 03/19/21 17:44 Last Admin: 02/28/21 17:13 Dose: 40 mg Documented by: Hydroxyzine HCl (Hydroxyzine Hcl 25 Mg Tab) 50 mg PO HSZ PRN PRN Reason: Insomnia Stop: 03/11/21 02:03 Hydroxyzine HCl (Hydroxyzine Hcl 25 Mg Tab) 25 mg PO Q4H PRN PRN Reason: Anxiety Stop: 03/11/21 02:03 Lorazepam (Lorazepam 1 Mg Tab) 1 mg PO Q6 PRN PRN Reason: Anxiety/Agitation Stop: 03/15/21 22:23 Magnesium Hydroxide (Magnesium Hydroxide Susp 30 Ml Udc) 30 ml PO DAILY PRN PRN Reason: Constipation Stop: 03/11/21 02:03 Miscellaneous (Remove Patch Selegiline (Emsam)) 1 ea N/A Q24H OG Stop: 03/24/21 08:58 Last Admin: 02/28/21 08:42 Dose: 1 ea Documented by: Selegiline (Selegiline 6 Mg/24hr Tdsy) 6 mg TD DAILY OG Stop: 03/23/21 08:59 Last Admin: 02/28/21 08:38 Dose: 6 mg Documented by: Sodium Chloride (Sodium Chloride 0.65% Na Soln 45 Ml ([place])) 1 - 2 sprays NA PRN PRN PRN Reason: Nasal Dryness/Congestion Stop: 03/11/21 02:03 Mental Health & Subst Abuse Tx Psychiatrist Name of Psychiatrist: Oniel Negron Psychiatrist's Date of Appointment with Psychiatrist: 03/13/21 Time of Appointment with Psychiatrist: 9:20am Psychiatric Appointment Comment: Zoom *is on waiting list for appt. sooner Therapist Name of Therapist: Unknown Clinical Academic Allergist Name of Clinical Academic Allergist: Angel Johns Post Discharge Appointments Primary Care Physician Name Of Family Doctor: Unknown
[2021-03-01] MEDS: SELEGILINE 6 MG/24 HR TD SCH (09:32)
[2021-03-01] MEDS: [UNRECOGNIZED DRUG - REMARK] SCH (09:37)
[2021-03-01] MEDS: ENOXAPARIN INJ 40 MG/0.4 ML SYR SQ SCH (17:32)
[2021-03-02] MEDS: [UNRECOGNIZED DRUG - REMARK] SCH (10:33)
[2021-03-02] MEDS: SELEGILINE 6 MG/24 HR TD SCH (10:33)
--- NOTE | 2021-03-02 10:43 | Psychiatric Progress Note ---
Date of Service March 02, 2021 Impression / Recommendations Impression The patient is a 40 year old with a history of schizophrenia vs BPAD, and depression who was admitted for failure of self-care and worsening decompensation. The patient is deemed unstable and requires psychiatric h ospitalization for diagnostic clarification, safety and stabilization, medication management and development of further coping skills. Initially focussed on Ativan dosing for catatonia but no consistent response to meds over objection. Patient seemed worse on Zyprexa, very poor PO. Started Emsam (MAOI patch on 02/21/21). Will focus on medication over objection and readdress possible ECT or antidepressant when improved. 304 status granted. 03/02/21: minimal change after 1st week of MAOI but improved PO intake. Behaviors when interacting are reality based but condescending which is typical of reported personality at [facility]. (1) Bipolar disorder with depression: 03/02/21--interim care reviewed. Continue EMSAM and Lovenox injection. 03/01/21--Day 9 of Emsam patch. Continuing with behavioral plan to encourage behavioral activation-he was provided with plan with goals of having him come out of his room to eat meals, cooperate with repositioning, stand up when his sheets are changed/or if he prefers to stay in bed until the evening then clean sheets can be provided for him to put on the bed or request help putting on the bed in the evening, and continue independently voiding in his bedside urinal, shower can be started for him but he should be encouraged to get into the shower on his own, encourage him to address basic hygiene by continuing to provide him with easy access to his toothbrush, shampoo, etc. 02/28/21--Day 8 of Emsam patch. Now seeing new pattern of daily food intake which is encouraging. Continues to present with regressed behaviors and refusal to interact during the day. 02/27/21--Continue with Emsam patch. Getting out of bed more in the evenings and eating more. Lack of engagement during the day was volitional-pulling blanket over his head after he saw me enter his room. Also becoming more irritable with staff when he is encouraged to do more on his own for behavioral activation. 02/26/21-Continue with Emsam patch. 304 status granted. Ate last night and interacted with staff but no engagement today. 02/25/21--Continues to demonstrate severe depression with neurovegetative symptoms with no engagement with staff. Behavioral plan challenged by finding a reward/incentive that he enjoys. Continuing to encourage behavioral activation. Petitioned for 304 status with hearing scheduled for tomorrow given ongoing symptom burden and need for ongoing treatment. Remains on lovenox for DVT prophylaxis. Continue with Emsam patch. 02/24/21--Remains isolative and will not engage verbally. Encouragingly is at tending slightly more to some of his ADLs, will continue with behavioral plan in hopes to continue encouraging behavioral activation although food does not seem to be a good motivator/reward for him. Will continue to think about other possible motivators for him to help encourage increased activity, po intake and engagement with therapeutic milieu. No signs of HTN or other side effects from MAOI at this point. 02/23/21--Continues to demonstrate neurovegetative symptoms of depression, remaining in bed most of the day but sometimes more engagement in the evenings. Will implement behavioral plan to encourage behavioral activation to treat neurovegetative symptoms in conjunction with Emsam as well as to encourage increased participation with ADLs. Nursing to provide him with tools to help him eat and promote good hygiene (brining in meals, supplies to wash up) and then if he does this independently will bring in ice cream or chips as reward to see if this helps with activation and increased po intake. 02/22/21--neurologic work up with EEG and brain MRI unremarkable, continue Emsam trial. 02/21/21--complex differential--depression with psychotic features in a patient with bipolar disorder most likely, certainly not typcial catatonia. No hx of hyperphagia or hypersexuality known that would suggest Kleine-Hess syndrome. Will proceed with Emsam patch 6 mg trial as only means to administer antidepressant. Will check with an ECT facility to determine if can treat patient if pursue a court order (will await emsam trial first). MRI brain (patient will need various x rays first as can't answer screening questions, no hx of pacemaker on chart). bedside EEG to rule out status epilepticus. 02/19/21--non-formulary request for Emsam patch. Hasn't taken antidepressants for at least 6 weeks. Would reconsider current med doses when this becomes available. without antidepressant he will continue to decompensate medically and is at significant risk of further decompensation. 02/17/21--lytes, Bun/Cr improved; given sleep phase shift desirable to shift antipsychotic to pm meal with IM Zyprexa for refusal. Bedside EEG likely poor quality/low yeild but consider if no improvement. 02/16/21--Reviewed care by Dr. Garces in italics. will d/c IM Ativan in favor of Zyprexa IM for failure to take Latuda. Does take Lorazepam prn PO, adjust dose and frequency and monitor use. Will repeat labs and PO intake so variable and hard to track. 02/09/2021--admitted to U. Ativan 2mg SL TID ordered. Track Is&Os. Vitals BID. 02/10/2021--continue with ativan 2mg TID SL. Showing significant improving in catatonic symptoms since ativan trial last night. If he continues to walk around no need for DVT prophylaxis. Will consider if 302 needs to be converted to 303 based on progress today. 02/11/2021--continue with scheduled ativan. Less engagement today but still eating and drinking. Plan for likely 303 given his inability/reluctance to engage in treatment. Reviewed outside records. 02/12/2021--continues to refuse ativan today and won't engage with anyone nor leave his bed except to use the bathroom and to eat at night. Given some movement in the evening and to the bathroom he doesn't require DVT prophylaxis at this time but this remains a concern should he clinically worsen and will continue to monitor his nutritional and medical status closely. 02/13/2021--placed on 303 status due to ongoing decompensation due to catatonia including refusal of medication, not eating, not drinking, not communicating with anyone and lying in bed all day. Once catatonia begins to improve with treatment will aim to start latuda which helped previously. [place] to require medications over objection for ativan to treat catatonia. If catatonia does not respond quickly to ativan then will consider if DVT prophylaxis should be initiated. 02/14/2021--no significant change in behaviors with additional of scheduled ativan 2 mg BID as medication over objection. Given concern for skin breakdown consult was placed for wound nurse. Given concern for possible DVT and after discussion with hospitalist will begin lovenox 40mg subQ daily. David was able to vocalize consent for this as he remains mute and unable/unwilling to engage but explained the risks, benefits, alternatives and rationale for lovenox and that we will be offering this to him. 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 02/15/2021--Have ruled out catatonia given inconsistent response to ativan trial, multiple observed examples of volitional movement immediately following periods of patient lying in bed and mute. Subsequent catatonia scales have been negative and patient feels that his symptoms represent withdrawn features of anxiety and depression. Given bipolar depression with neurovegetative features will start latuda. Encouragingly he is eating more and drinking more and got out of bed twice last night. Risk Factors Assessment Male: Yes : Yes Do You Have Access To A Gun?: No (in supportive living enviornment, pt unable to answer ) Mental Health Diagnoses: Yes Previous Psychiatric Hospitalization: Yes Protective Factors Assessment Employed: No Interval History Identifying Information 40 yo man with history of catatonia, depression, possible BPAD vs schizophrenia admitted due to concern for catatonia and decompensation with failure of self- care at [facility]. Admitted on 302, now 303. Chief Complaint mute Review of Systems Sleep Information Total Hours of Sleep: 6.5 Sleep Comments: pt appeared to shift position x3 during the night. pt on q-15 minute checks Meal Information Percent Meal Consumed - Breakfast: 0 Percent Meal Consumed - Lunch: 0 Percent Meal Consumed - Dinner: 0 Nutrition Comment: a few bites of food; pt. did drink juice and water Subjective Subjective Patient was seen & assessed and interval progress reviewed with nursing and social work. The patient has been talking a little more, mainly ordering staff to lemon picker his trash. Is eating more regularly than last contact with slightly more initiation but is resistant to work with staff. Is getting OOB to toilet but staff working on behavioral measures to encourage movement to the day room. Physical Exam Psychiatric Orientation: + not alert and + not oriented x 3 Apperance: appropriately groomed Eye Contact: + not good eye contact Motor Behavior: no abnormal motor movements Speech: + abnormal rate/rhythm/volume of speech Affect: + depressed affect Mood: + depressed mood Thought Process: + thought process not goal directed (unable to assess) does not appear to be responding to internal stimuli. Judgement: + severely impaired judgement Vital Signs (Past 24 Hours) Last Vital Signs Temp 37.2 C 03/02/21 07:03 Pulse 84 03/02/21 07:03 Resp 14 03/02/21 07:03 BP 124/82 03/02/21 07:05 Pulse Ox 98 02/26/21 20:26 Results & Data ([facility]) Current Inpatient Medications Current Inpatient Medications: Current Inpatient Medications Acetaminophen (Acetaminophen 325 Mg Tab) 650 mg PO Q4H PRN PRN Reason: Headache or Minor Fever Stop: 03/11/21 02:03 Last Admin: 02/15/21 18:44 Dose: 650 mg Documented by: Al Hydrox/Mg Hydrox/Simethicone (Aluminum/Magnesium Susp 30 Ml Udc) 30 ml PO Q4H PRN PRN Reason: GI Upset Stop: 03/11/21 02:03 Bismuth Subsalicylate (Bismuth Subsalicylate Liqd 236 Ml) 15 ml PO PRN PRN PRN Reason: Loose Stool Stop: 03/11/21 02:03 Enoxaparin Sodium (Enoxaparin Inj 40 Mg/0.4 Ml Syr) 40 mg SQ QDD OG Stop: 03/19/21 17:44 Last Admin: 03/01/21 17:32 Dose: 40 mg Documented by: Hydroxyzine HCl (Hydroxyzine Hcl 25 Mg Tab) 50 mg PO HSZ PRN PRN Reason: Insomnia Stop: 03/11/21 02:03 Hydroxyzine HCl (Hydroxyzine Hcl 25 Mg Tab) 25 mg PO Q4H PRN PRN Reason: Anxiety Stop: 03/11/21 02:03 Lorazepam (Lorazepam 1 Mg Tab) 1 mg PO Q6 PRN PRN Reason: Anxiety/Agitation Stop: 03/15/21 22:23 Magnesium Hydroxide (Magnesium Hydroxide Susp 30 Ml Udc) 30 ml PO DAILY PRN PRN Reason: Constipation Stop: 03/11/21 02:03 Miscellaneous (Remove Patch Selegiline (Emsam)) 1 ea N/A Q24H OG Stop: 03/24/21 08:58 Last Admin: 03/02/21 10:33 Dose: 1 ea Documented by: Selegiline (Selegiline 6 Mg/24hr Tdsy) 6 mg TD DAILY OG Stop: 03/23/21 08:59 Last Admin: 03/02/21 10:33 Dose: 6 mg Documented by: Sodium Chloride (Sodium Chloride 0.65% Na Soln 45 Ml ([place])) 1 - 2 sprays NA PRN PRN PRN Reason: Nasal Dryness/Congestion Stop: 03/11/21 02:03 Mental Health & Subst Abuse Tx Psychiatrist Name of Psychiatrist: Oniel Negron Psychiatrist's Date of Appointment with Psychiatrist: 03/13/21 Time of Appointment with Psychiatrist: 9:20am Psychiatric Appointment Comment: Zoom *is on waiting list for appt. sooner Therapist Name of Therapist: Unknown Cemetery Laborer Name of Cemetery Laborer: Angel Johns Post Discharge Appointments Primary Care Physician Name Of Family Doctor: Unknown
[2021-03-02] MEDS: ENOXAPARIN INJ 40 MG/0.4 ML SYR SQ SCH (17:51)
--- NOTE | 2021-03-03 10:16 | Psychiatric Progress Note ---
Date of Service March 03, 2021 Impression / Recommendations Impression The patient is a 40 year old with a history of schizophrenia vs BPAD, and depression who was admitted for failure of self-care and worsening decompensation. The patient is deemed unstable and requires psychiatric h ospitalization for diagnostic clarification, safety and stabilization, medication management and development of further coping skills. Initially focussed on Ativan dosing for catatonia but no consistent response to meds over objection. Patient seemed worse on Zyprexa, very poor PO. Started Emsam (MAOI patch on 02/21/21). Will focus on medication over objection and readdress possible ECT or antidepressant when improved. 304 status granted. 03/03/21: minimal change after 1st week of MAOI, behavior is more organized in limited times he initiates interaction. Staff to track weight. (1) Bipolar disorder with depression: 03/03/21--continue same. Cannot attempt coadmin with stimulant trial for hypersomnia as contraindicated with MAOI. No medical decompensation that would necessitate referral to medical or seeking court order for ECT. At minimum behaviors are challenging but more appropriate when willing to interact with staff. Need to consider longer term care options given slow progression. 03/02/21--interim care reviewed. Continue EMSAM and Lovenox injection. 03/01/21--Day 9 of Emsam patch. Continuing with behavioral plan to encourage b ehavioral activation-he was provided with plan with goals of having him come out of his room to eat meals, cooperate with repositioning, stand up when his sheets are changed/or if he prefers to stay in bed until the evening then clean sheets can be provided for him to put on the bed or request help putting on the bed in the evening, and continue independently voiding in his bedside urinal, shower can be started for him but he should be encouraged to get into the shower on his own, encourage him to address basic hygiene by continuing to provide him with easy access to his toothbrush, shampoo, etc. 02/28/21--Day 8 of Emsam patch. Now seeing new pattern of daily food intake which is encouraging. Continues to present with regressed behaviors and refusal to interact during the day. 02/27/21--Continue with Emsam patch. Getting out of bed more in the evenings and eating more. Lack of engagement during the day was volitional-pulling blanket over his head after he saw me enter his room. Also becoming more irritable with staff when he is encouraged to do more on his own for behavioral activation. 02/26/21-Continue with Emsam patch. 304 status granted. Ate last night and interacted with staff but no engagement today. 02/25/21--Continues to demonstrate severe depression with neurovegetative symptoms with no engagement with staff. Behavioral plan challenged by finding a reward/incentive that he enjoys. Continuing to encourage behavioral activation. Petitioned for 304 status with hearing scheduled for tomorrow given ongoing symptom burden and need for ongoing treatment. Remains on lovenox for DVT prophylaxis. Continue with Emsam patch. 02/24/21--Remains isolative and will not engage verbally. Encouragingly is attending slightly more to some of his ADLs, will continue with behavioral plan in hopes to continue encouraging behavioral activation although food does not seem to be a good motivator/reward for him. Will continue to think about other possible motivators for him to help encourage increased activity, po intake and engagement with therapeutic milieu. No signs of HTN or other side effects from MAOI at this point. 02/23/21--Continues to demonstrate neurovegetative symptoms of depression, remaining in bed most of the day but sometimes more engagement in the evenings. Will implement behavioral plan to encourage behavioral activation to treat neurovegetative symptoms in conjunction with Emsam as well as to encourage increased participation with ADLs. Nursing to provide him with tools to help him eat and promote good hygiene (brining in meals, supplies to wash up) and then if he does this independently will bring in ice cream or chips as reward to see if this helps with activation and increased po intake. 02/22/21--neurologic work up with EEG and brain MRI unremarkable, continue Emsam trial. 02/21/21--complex differential--depression with psychotic features in a patient with bipolar disorder most likely, certainly not typcial catatonia. No hx of hyperphagia or hypersexuality known that would suggest Kleine-Hses syndrome. Will proceed with Emsam patch 6 mg trial as only means to administer antidepressant. Will check with an ECT facility to determine if can treat patient if pursue a court order (will await emsam trial first). MRI brain (patient will need various x rays first as can't answer screening questions, no hx of pacemaker on chart). bedside EEG to rule out status epilepticus. 02/19/21--non-formulary request for Emsam patch. Hasn't taken antidepressants for at least 6 weeks. Would reconsider current med doses when this becomes available. without antidepressant he will continue to decompensate medically and is at significant risk of further decompensation. 02/17/21--lytes, Bun/Cr improved; given sleep phase shift desirable to shift antipsychotic to pm meal with IM Zyprexa for refusal. Bedside EEG likely poor quality/low yeild but consider if no improvement. 02/16/21--Reviewed care by Dr. Garces in italics. will d/c IM Ativan in favor of Zyprexa IM for failure to take Latuda. Does take Lorazepam prn PO, adjust dose and frequency and monitor use. Will repeat labs and PO intake so variable and hard to track. 02/09/2021--admitted to U. Ativan 2mg SL TID ordered. Track Is&Os. Vitals BID. 02/10/2021--continue with ativan 2mg TID SL. Showing significant improving in catatonic symptoms since ativan trial last night. If he continues to walk around no need for DVT prophylaxis. Will consider if 302 needs to be converted to 303 based on progress today. 02/11/2021--continue with scheduled ativan. Less engagement today but still eating and drinking. Plan for likely 303 given his inability/reluctance to engage in treatment. Reviewed outside records. 02/12/2021--continues to refuse ativan today and won't engage with anyone nor leave his bed except to use the bathroom and to eat at night. Given some movement in the evening and to the bathroom he doesn't require DVT prophylaxis at this time but this remains a concern should he clinically worsen and will continue to monitor his nutritional and medical status closely. 02/13/2021--placed on 303 status due to ongoing decompensation due to catatonia including refusal of medication, not eating, not drinking, not communicating with anyone and lying in bed all day. Once catatonia begins to improve with treatment will aim to start latuda which helped previously. [place] to require medications over objection for ativan to treat catatonia. If catatonia does not respond quickly to ativan then will consider if DVT prophylaxis should be initiated. 02/14/2021--no significant change in behaviors with additional of scheduled ativan 2 mg BID as medication over objection. Given concern for skin breakdown consult was placed for wound nurse. Given concern for possible DVT and after discussion with hospitalist will begin lovenox 40mg subQ daily. David was able to vocalize consent for this as he remains mute and unable/unwilling to engage but explained the risks, benefits, alternatives and rationale for lovenox and that we will be offering this to him. 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 02/15/2021--Have ruled out catatonia given inconsistent response to ativan trial, multiple observed examples of volitional movement immediately following periods of patient lying in bed and mute. Subsequent catatonia scales have been negative and patient feels that his symptoms represent withdrawn features of anxiety and depression. Given bipolar depression with neurovegetative features will start latuda. Encouragingly he is eating more and drinking more and got out of bed twice last night. Risk Factors Assessment Male: Yes : Yes Do You Have Access To A Gun?: No (in supportive living enviornment, pt unable to answer ) Mental Health Diagnoses: Yes Previous Psychiatric Hospitalization: Yes Protective Factors Assessment Employed: No Interval History Identifying Information 40 yo man with history of catatonia, depression, possible BPAD vs schizophrenia admitted due to concern for catatonia and decompensation with failure of self- care at [facility]. Admitted on 302, now 303. Chief Complaint hypersomnia and selective mutism Review of Systems Sleep Information Total Hours of Sleep: 6 Sleep Comments: pt appeared to shift position x3 during the night. pt on q-15 minute checks Meal Information Percent Meal Consumed - Breakfast: 0 Percent Meal Consumed - Lunch: 0 Percent Meal Consumed - Dinner: 0 Nutrition Comment: a few bites of food; pt. did drink juice and water Subjective Subjective Patient was seen & assessed and interval progress reviewed with nursing and social work. Appears to close eyes when staff enter room and/or lay with blanket over his head to hide face. Clearly toileting self, urinates appropriately in container. Same pattern in that on evening shift will request food/assistance from staff--this time actually dressed self to enter day room and request meal be heated. He became upset when staff weren't able to get it back to him right away, drank juice, and returned to his room after a lap around the unit. Physical Exam Psychiatric limited interaction, everts gaze, will not vocalize, unclear how much is hypersomnia vs. intentional. Vital Signs (Past 24 Hours) Last Vital Signs Temp 37.7 C H 03/02/21 21:11 Pulse 93 H 03/02/21 21:11 Resp 16 03/02/21 21:11 BP 115/76 03/02/21 21:11 Pulse Ox 98 02/26/21 20:26 Results & Data ([facility]) Current Inpatient Medications Current Inpatient Medications: Current Inpatient Medications Acetaminophen (Acetaminophen 325 Mg Tab) 650 mg PO Q4H PRN PRN Reason: Headache or Minor Fever Stop: 03/11/21 02:03 Last Admin: 02/15/21 18:44 Dose: 650 mg Documented by: Al Hydrox/Mg Hydrox/Simethicone (Aluminum/Magnesium Susp 30 Ml Udc) 30 ml PO Q4H PRN PRN Reason: GI Upset Stop: 03/11/21 02:03 Bismuth Subsalicylate (Bismuth Subsalicylate Liqd 236 Ml) 15 ml PO PRN PRN PRN Reason: Loose Stool Stop: 03/11/21 02:03 Enoxaparin Sodium (Enoxaparin Inj 40 Mg/0.4 Ml Syr) 40 mg SQ QDD OG Stop: 03/19/21 17:44 Last Admin: 03/02/21 17:51 Dose: 40 mg Documented by: Hydroxyzine HCl (Hydroxyzine Hcl 25 Mg Tab) 50 mg PO HSZ PRN PRN Reason: Insomnia Stop: 03/11/21 02:03 Hydroxyzine HCl (Hydroxyzine Hcl 25 Mg Tab) 25 mg PO Q4H PRN PRN Reason: Anxiety Stop: 03/11/21 02:03 Lorazepam (Lorazepam 1 Mg Tab) 1 mg PO Q6 PRN PRN Reason: Anxiety/Agitation Stop: 03/15/21 22:23 Magnesium Hydroxide (Magnesium Hydroxide Susp 30 Ml Udc) 30 ml PO DAILY PRN PRN Reason: Constipation Stop: 03/11/21 02:03 Miscellaneous (Remove Patch Selegiline (Emsam)) 1 ea N/A Q24H OG Stop: 03/24/21 08:58 Last Admin: 03/02/21 10:33 Dose: 1 ea Documented by: Selegiline (Selegiline 6 Mg/24hr Tdsy) 6 mg TD DAILY OG Stop: 03/23/21 08:59 Last Admin: 03/02/21 10:33 Dose: 6 mg Documented by: Sodium Chloride (Sodium Chloride 0.65% Na Soln 45 Ml ([place])) 1 - 2 sprays NA PRN PRN PRN Reason: Nasal Dryness/Congestion Stop: 03/11/21 02:03 Mental Health & Subst Abuse Tx Psychiatrist Name of Psychiatrist: Oniel Negron Psychiatrist's Date of Appointment with Psychiatrist: 03/13/21 Time of Appointment with Psychiatrist: 9:20am Psychiatric Appointment Comment: Zoom *is on waiting list for appt. sooner Therapist Name of Therapist: Unknown Medical Staff Specialist Name of Medical Staff Specialist: Angel Johns Post Discharge Appointments Primary Care Physician Name Of Family Doctor: Unknown
[2021-03-03] MEDS: SELEGILINE 6 MG/24 HR TD SCH (11:53)
[2021-03-03] MEDS: [UNRECOGNIZED DRUG - REMARK] SCH (12:00)
[2021-03-03] MEDS: ENOXAPARIN INJ 40 MG/0.4 ML SYR SQ SCH (17:09)
--- NOTE | 2021-03-04 06:10 | Psychiatric Progress Note ---
Date of Service March 04, 2021 Impression / Recommendations Impression The patient is a 40 year old with a history of schizophrenia vs BPAD, and depression who was admitted for failure of self-care and worsening decompensation. The patient is deemed unstable and requires psychiatric h ospitalization for diagnostic clarification, safety and stabilization, medication management and development of further coping skills. Initially focussed on Ativan dosing for catatonia but no consistent response to meds over objection. Patient seemed worse on Zyprexa, very poor PO. Started Emsam (MAOI patch on 02/21/21). Will focus on medication over objection and readdress possible ECT or antidepressant when improved. 304 status granted. 03/04/21: very slow progress, patient has been maintained without need for medical admission, patient has body odor as will change clothes but hasn't showered for several days. (1) Bipolar disorder with depression: 03/04/21: will explore personal usp as concerns he will not improve to point he can make meals/meet requirements to return to [facility] during this stay. 03/03/21--continue same. Cannot attempt coadmin with stimulant trial for hypersomnia as contraindicated with MAOI. No medical decompensation that would necessitate referral to medical or seeking court order for ECT. At minimum behaviors are challenging but more appropriate when willing to interact with staff. Need to consider longer term care options given slow progression. 03/02/21--interim care reviewed. Continue EMSAM and Lovenox injection. 03/01/21--Day 9 of Emsam patch. Continuing with behavioral plan to encourage behavioral activation-he was provided with plan with goals of having him come out of his room to eat meals, cooperate with repositioning, stand up when his sheets are changed/or if he prefers to stay in bed until the evening then clean sheets can be provided for him to put on the bed or request help putting on the bed in the evening, and continue independently voiding in his bedside urinal, shower can be started for him but he should be encouraged to get into the shower on his own, encourage him to address basic hygiene by continuing to provide him with easy access to his toothbrush, shampoo, etc. 02/28/21--Day 8 of Emsam patch. Now seeing new pattern of daily food intake which is encouraging. Continues to present with regressed behaviors and refusal to interact during the day. 02/27/21--Continue with Emsam patch. Getting out of bed more in the evenings and eating more. Lack of engagement during the day was volitional-pulling blanket over his head after he saw me enter his room. Also becoming more irritable with staff when he is encouraged to do more on his own for behavioral activation. 02/26/21-Continue with Emsam patch. 304 status granted. Ate last night and interacted with staff but no engagement today. 02/25/21--Continues to demonstrate severe depression with neurovegetative symptoms with no engagement with staff. Behavioral plan challenged by finding a reward/incentive that he enjoys. Continuing to encourage behavioral activation. Petitioned for 304 status with hearing scheduled for tomorrow given ongoing symptom burden and need for ongoing treatment. Remains on lovenox for DVT prophylaxis. Continue with Emsam patch. 02/24/21--Remains isolative and will not engage verbally. Encouragingly is attending slightly more to some of his ADLs, will continue with behavioral plan in hopes to continue encouraging behavioral activation although food does not seem to be a good motivator/reward for him. Will continue to think about other possible motivators for him to help encourage increased activity, po intake and engagement with therapeutic milieu. No signs of HTN or other side effects from MAOI at this point. 02/23/21--Continues to demonstrate neurovegetative symptoms of depression, remaining in bed most of the day but sometimes more engagement in the evenings. Will implement behavioral plan to encourage behavioral activation to treat neurovegetative symptoms in conjunction with Emsam as well as to encourage increased participation with ADLs. Nursing to provide him with tools to help him eat and promote good hygiene (brining in meals, supplies to wash up) and then if he does this independently will bring in ice cream or chips as reward to see if this helps with activation and increased po intake. 02/22/21--neurologic work up with EEG and brain MRI unremarkable, continue Emsam trial. 02/21/21--complex differential--depression with psychotic features in a patient with bipolar disorder most likely, certainly not typcial catatonia. No hx of hyperphagia or hypersexuality known that would suggest Kleine-Hess syndrome. Will proceed with Emsam patch 6 mg trial as only means to administer antidepressant. Will check with an ECT facility to determine if can treat patient if pursue a court order (will await emsam trial first). MRI brain (patient will need various x rays first as can't answer screening questions, no hx of pacemaker on chart). bedside EEG to rule out status epilepticus. 02/19/21--non-formulary request for Emsam patch. Hasn't taken antidepressants for at least 6 weeks. Would reconsider current med doses when this becomes available. without antidepressant he will continue to decompensate medically and is at significant risk of further decompensation. 02/17/21--lytes, Bun/Cr improved; given sleep phase shift desirable to shift antipsychotic to pm meal with IM Zyprexa for refusal. Bedside EEG likely poor quality/low yeild but consider if no improvement. 02/16/21--Reviewed care by Dr. Garces in italics. will d/c IM Ativan in favor of Zyprexa IM for failure to take Latuda. Does take Lorazepam prn PO, adjust dose and frequency and monitor use. Will repeat labs and PO intake so variable and hard to track. 02/09/2021--admitted to [facility]. Ativan 2mg SL TID ordered. Track Is&Os. Vitals BID. 02/10/2021--continue with ativan 2mg TID SL. Showing significant improving in catatonic symptoms since ativan trial last night. If he continues to walk around no need for DVT prophylaxis. Will consider if 302 needs to be converted to 303 based on progress today. 02/11/2021--continue with scheduled ativan. Less engagement today but still eating and drinking. Plan for likely 303 given his inability/reluctance to engage in treatment. Reviewed outside records. 02/12/2021--continues to refuse ativan today and won't engage with anyone nor leave his bed except to use the bathroom and to eat at night. Given some movement in the evening and to the bathroom he doesn't require DVT prophylaxis at this time but this remains a concern should he clinically worsen and will continue to monitor his nutritional and medical status closely. 02/13/2021--placed on 303 status due to ongoing decompensation due to catatonia including refusal of medication, not eating, not drinking, not communicating with anyone and lying in bed all day. Once catatonia begins to improve with treatment will aim to start latuda which helped previously. [place] to require medications over objection for ativan to treat catatonia. If catatonia does not respond quickly to ativan then will consider if DVT prophylaxis should be initiated. 02/14/2021--no significant change in behaviors with additional of scheduled ativan 2 mg BID as medication over objection. Given concern for skin breakdown consult was placed for wound nurse. Given concern for possible DVT and after discussion with hospitalist will begin lovenox 40mg subQ daily. David was able to vocalize consent for this as he remains mute and unable/unwilling to engage but explained the risks, benefits, alternatives and rationale for lovenox and that we will be offering this to him. 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 02/15/2021--Have ruled out catatonia given inconsistent response to ativan trial, multiple observed examples of volitional movement immediately following periods of patient lying in bed and mute. Subsequent catatonia scales have been negative and patient feels that his symptoms represent withdrawn features of anxiety and depression. Given bipolar depression with neurovegetative features will start latuda. Encouragingly he is eating more and drinking more and got out of bed twice last night. Risk Factors Assessment Male: Yes : Yes Do You Have Access To A Gun?: No (in supportive living enviornment, pt unable to answer ) Mental Health Diagnoses: Yes Previous Psychiatric Hospitalization: Yes Protective Factors Assessment Employed: No Interval History Identifying Information 40 yo man with history of catatonia, depression, possible BPAD vs schizophrenia admitted due to concern for catatonia and decompensation with failure of self- care at [facility]. Admitted on 302, now 303. Chief Complaint selective mutism Review of Systems Sleep Information Total Hours of Sleep: 6 Sleep Comments: pt appeared to shift position x3 during the night. pt on q-15 minute checks Meal Information Percent Meal Consumed - Breakfast: 0 Percent Meal Consumed - Lunch: 0 Percent Meal Consumed - Dinner: 0 Nutrition Comment: a few bites of food; pt. did drink juice and water Subjective Subjective Patient was seen & assessed and interval progress reviewed with treatment team. Has been more active in repositioning self in bed, keeps head covered to avoid staff. Poor PO past 2 days given rigidity in interactions with staff. Unclear if avoidance with staff constitutes thought blocking. Has lost 6 lbs since 02/19 but BMI remains >34. Physical Exam Psychiatric continues to debra gaze, seen moving all extremities/repositioning multiple times when no direct verbal interaction from hallway, keeps blanket over head. Vital Signs (Past 24 Hours) Last Vital Signs Temp 36.7 C 03/03/21 21:48 Pulse 111 H 03/03/21 21:47 Resp 16 03/03/21 21:47 BP 144/90 H 03/03/21 21:47 Pulse Ox 98 02/26/21 20:26 Results & Data ([facility]) Current Inpatient Medications Current Inpatient Medications: Current Inpatient Medications Acetaminophen (Acetaminophen 325 Mg Tab) 650 mg PO Q4H PRN PRN Reason: Headache or Minor Fever Stop: 03/11/21 02:03 Last Admin: 02/15/21 18:44 Dose: 650 mg Documented by: Al Hydrox/Mg Hydrox/Simethicone (Aluminum/Magnesium Susp 30 Ml Udc) 30 ml PO Q4H PRN PRN Reason: GI Upset Stop: 03/11/21 02:03 Bismuth Subsalicylate (Bismuth Subsalicylate Liqd 236 Ml) 15 ml PO PRN PRN PRN Reason: Loose Stool Stop: 03/11/21 02:03 Enoxaparin Sodium (Enoxaparin Inj 40 Mg/0.4 Ml Syr) 40 mg SQ QDD OG Stop: 03/19/21 17:44 Last Admin: 03/03/21 17:09 Dose: 40 mg Documented by: Hydroxyzine HCl (Hydroxyzine Hcl 25 Mg Tab) 50 mg PO HSZ PRN PRN Reason: Insomnia Stop: 03/11/21 02:03 Hydroxyzine HCl (Hydroxyzine Hcl 25 Mg Tab) 25 mg PO Q4H PRN PRN Reason: Anxiety Stop: 03/11/21 02:03 Lorazepam (Lorazepam 1 Mg Tab) 1 mg PO Q6 PRN PRN Reason: Anxiety/Agitation Stop: 03/15/21 22:23 Magnesium Hydroxide (Magnesium Hydroxide Susp 30 Ml Udc) 30 ml PO DAILY PRN PRN Reason: Constipation Stop: 03/11/21 02:03 Miscellaneous (Remove Patch Selegiline (Emsam)) 1 ea N/A Q24H OG Stop: 03/24/21 08:58 Last Admin: 03/03/21 12:00 Dose: 1 ea Documented by: Selegiline (Selegiline 6 Mg/24hr Tdsy) 6 mg TD DAILY OG Stop: 03/23/21 08:59 Last Admin: 03/03/21 11:53 Dose: 6 mg Documented by: Sodium Chloride (Sodium Chloride 0.65% Na Soln 45 Ml ([place])) 1 - 2 sprays NA PRN PRN PRN Reason: Nasal Dryness/Congestion Stop: 03/11/21 02:03 Mental Health & Subst Abuse Tx Psychiatrist Name of Psychiatrist: Oniel Negron Psychiatrist's Date of Appointment with Psychiatrist: 03/13/21 Time of Appointment with Psychiatrist: 9:20am Psychiatric Appointment Comment: Zoom *is on waiting list for appt. sooner Therapist Name of Therapist: Unknown Supervisor Lace Tearing Name of Supervisor Lace Tearing: Angel Johns Post Discharge Appointments Primary Care Physician Name Of Family Doctor: Unknown
[2021-03-04] MEDS: SELEGILINE 6 MG/24 HR TD SCH (09:00)
[2021-03-04] MEDS: [UNRECOGNIZED DRUG - REMARK] SCH (09:01)
[2021-03-04] MEDS: ENOXAPARIN INJ 40 MG/0.4 ML SYR SQ SCH (17:32)
[2021-03-05] MEDS: [UNRECOGNIZED DRUG - REMARK] SCH (09:13)
[2021-03-05] MEDS: SELEGILINE 6 MG/24 HR TD SCH (09:13)
--- NOTE | 2021-03-05 16:01 | Psychiatric Progress Note ---
Date of Service March 05, 2021 Impression / Recommendations Impression The patient is a 40 year old with a history of schizophrenia vs BPAD, and depression who was admitted for failure of self-care and worsening decompensation. The patient is deemed unstable and requires psychiatric h ospitalization for diagnostic clarification, safety and stabilization, medication management and development of further coping skills. Initially focussed on Ativan dosing for catatonia but no consistent response to meds over objection. Patient seemed worse on Zyprexa, very poor PO. Started Emsam (MAOI patch on 02/21/21). Will focus on medication over objection and readdress possible ECT or antidepressant when improved. 304 status granted. 03/05/21: more active on day shift today Plan: continue emsam trial, seemingly slow improvement but very dependent for ADLs. (1) Bipolar disorder with depression: Risk Factors Assessment Male: Yes : Yes Do You Have Access To A Gun?: No (in supportive living enviornment, pt unable to answer ) Mental Health Diagnoses: Yes Previous Psychiatric Hospitalization: Yes Protective Factors Assessment Employed: No Interval History Identifying Information 40 yo man with history of catatonia, depression, possible BPAD vs schizophrenia admitted due to concern for catatonia and decompensation with failure of self- care at [facility]. Admitted on 302, now 303. Chief Complaint selective mutism Review of Systems Sleep Information Total Hours of Sleep: 6 Sleep Comments: pt on q-15 minute checks Meal Information Percent Meal Consumed - Breakfast: 0 Percent Meal Consumed - Lunch: 0 Percent Meal Consumed - Dinner: 0 Nutrition Comment: Pt was informed food was here. Subjective Subjective Patient was seen & assessed and interval progress reviewed with nursing and social work. Patient has remained in bed, will come out to day room for juice with no clear frequency, was less responsive/hiding head this am then later came out and requested cereal and ate several boxes, sitting up more but wouldn't initiate shower and tends to retreat if approached. Is back in [facility] for hygiene and severity of symptoms. Physical Exam Psychiatric everts eye contact, unclear if thought blocking or purposely avoiding conversation. unkempt. mute when 1-on-1. Vital Signs (Past 24 Hours) Last Vital Signs Temp 36.7 C 03/05/21 13:41 Pulse 79 03/05/21 13:41 Resp 16 03/05/21 13:41 BP 121/81 03/05/21 13:41 Pulse Ox 95 03/05/21 13:41 Results & Data ([facility]) Current Inpatient Medications Current Inpatient Medications: Current Inpatient Medications Acetaminophen (Acetaminophen 325 Mg Tab) 650 mg PO Q4H PRN PRN Reason: Headache or Minor Fever Stop: 03/11/21 02:03 Last Admin: 02/15/21 18:44 Dose: 650 mg Documented by: Al Hydrox/Mg Hydrox/Simethicone (Aluminum/Magnesium Susp 30 Ml Udc) 30 ml PO Q4H PRN PRN Reason: GI Upset Stop: 03/11/21 02:03 Bismuth Subsalicylate (Bismuth Subsalicylate Liqd 236 Ml) 15 ml PO PRN PRN PRN Reason: Loose Stool Stop: 03/11/21 02:03 Enoxaparin Sodium (Enoxaparin Inj 40 Mg/0.4 Ml Syr) 40 mg SQ QDD OG Stop: 03/19/21 17:44 Last Admin: 03/04/21 17:32 Dose: 40 mg Documented by: Hydroxyzine HCl (Hydroxyzine Hcl 25 Mg Tab) 50 mg PO HSZ PRN PRN Reason: Insomnia Stop: 03/11/21 02:03 Hydroxyzine HCl (Hydroxyzine Hcl 25 Mg Tab) 25 mg PO Q4H PRN PRN Reason: Anxiety Stop: 03/11/21 02:03 Lorazepam (Lorazepam 1 Mg Tab) 1 mg PO Q6 PRN PRN Reason: Anxiety/Agitation Stop: 03/15/21 22:23 Magnesium Hydroxide (Magnesium Hydroxide Susp 30 Ml Udc) 30 ml PO DAILY PRN PRN Reason: Constipation Stop: 03/11/21 02:03 Miscellaneous (Remove Patch Selegiline (Emsam)) 1 ea N/A Q24H OG Stop: 03/24/21 08:58 Last Admin: 03/05/21 09:13 Dose: 1 ea Documented by: Selegiline (Selegiline 6 Mg/24hr Tdsy) 6 mg TD DAILY OG Stop: 03/23/21 08:59 Last Admin: 03/05/21 09:13 Dose: 6 mg Documented by: Sodium Chloride (Sodium Chloride 0.65% Na Soln 45 Ml ([place])) 1 - 2 sprays NA PRN PRN PRN Reason: Nasal Dryness/Congestion Stop: 03/11/21 02:03 Mental Health & Subst Abuse Tx Psychiatrist Name of Psychiatrist: Oniel Negron Psychiatrist's Date of Appointment with Psychiatrist: 03/13/21 Time of Appointment with Psychiatrist: 9:20am Psychiatric Appointment Comment: Zoom *is on waiting list for appt. sooner Therapist Name of Therapist: Unknown Heat And Frost Insulator Helper Name of Heat And Frost Insulator Helper: Angel Johns Post Discharge Appointments Primary Care Physician Name Of Family Doctor: Unknown
[2021-03-05] MEDS: ENOXAPARIN INJ 40 MG/0.4 ML SYR SQ SCH (17:04)
[2021-03-06] MEDS: SELEGILINE 6 MG/24 HR TD SCH (07:39)
[2021-03-06] MEDS: [UNRECOGNIZED DRUG - REMARK] SCH (07:44)
--- NOTE | 2021-03-06 09:54 | Psychiatric Progress Note ---
Date of Service March 06, 2021 Impression / Recommendations Impression The patient is a 40 year old with a history of schizophrenia vs BPAD, and depression who was admitted for failure of self-care and worsening decompensation. The patient is deemed unstable and requires psychiatric h ospitalization for diagnostic clarification, safety and stabilization, medication management and development of further coping skills. Initially focussed on Ativan dosing for catatonia but no consistent response to meds over objection. Patient seemed worse on Zyprexa, very poor PO. Started Emsam (MAOI patch on 02/21/21). Will focus on medication over objection and readdress possible ECT or antidepressant when improved. 304 status granted. 03/05/21: more active on day shift today Plan: continue emsam trial, seemingly slow improvement but very dependent for ADLs. CMP in am. Consult neurology given failure to progress and likely required for referrals to other facilities. Risk Factors Assessment Male: Yes : Yes Do You Have Access To A Gun?: No (in supportive living enviornment, pt unable to answer ) Mental Health Diagnoses: Yes Previous Psychiatric Hospitalization: Yes Protective Factors Assessment Employed: No Interval History Identifying Information 40 yo man with history of catatonia, depression, possible BPAD vs schizophrenia admitted due to concern for catatonia and decompensation with failure of self- care at [facility]. Admitted on 302, now 304. Chief Complaint selective mutism Review of Systems Sleep Information Total Hours of Sleep: 6.5 Sleep Comments: pt on q-15 minute checks Meal Information Percent Meal Consumed - Breakfast: 0 Percent Meal Consumed - Lunch: 0 Percent Meal Consumed - Dinner: 0 Nutrition Comment: Pt was informed food was here. Subjective Subjective Patient was seen & assessed and interval progress reviewed with treatment team. Patient did come out of room yesterday afternoon but refuses to walk/get out of bed for room changes and hasn't showered. Meal info isn't particularly accurate yesterday as ate snacks/cereal and discussed ordering foods that don't need heated, etc (sandwiches, cereal) for patient. Physical Exam Psychiatric patient uncooperative with exam. mute. Vital Signs (Past 24 Hours) Last Vital Signs Temp 35.9 C L 03/05/21 20:00 Pulse 79 03/05/21 13:41 Resp 16 03/05/21 13:41 BP 121/81 03/05/21 13:41 Pulse Ox 95 03/05/21 13:41 Results & Data ([facility]) Current Inpatient Medications Current Inpatient Medications: Current Inpatient Medications Acetaminophen (Acetaminophen 325 Mg Tab) 650 mg PO Q4H PRN PRN Reason: Headache or Minor Fever Stop: 03/11/21 02:03 Last Admin: 02/15/21 18:44 Dose: 650 mg Documented by: Al Hydrox/Mg Hydrox/Simethicone (Aluminum/Magnesium Susp 30 Ml Udc) 30 ml PO Q4H PRN PRN Reason: GI Upset Stop: 03/11/21 02:03 Bismuth Subsalicylate (Bismuth Subsalicylate Liqd 236 Ml) 15 ml PO PRN PRN PRN Reason: Loose Stool Stop: 03/11/21 02:03 Enoxaparin Sodium (Enoxaparin Inj 40 Mg/0.4 Ml Syr) 40 mg SQ QDD OG Stop: 03/19/21 17:44 Last Admin: 03/05/21 17:04 Dose: 40 mg Documented by: Hydroxyzine HCl (Hydroxyzine Hcl 25 Mg Tab) 50 mg PO HSZ PRN PRN Reason: Insomnia Stop: 03/11/21 02:03 Hydroxyzine HCl (Hydroxyzine Hcl 25 Mg Tab) 25 mg PO Q4H PRN PRN Reason: Anxiety Stop: 03/11/21 02:03 Lorazepam (Lorazepam 1 Mg Tab) 1 mg PO Q6 PRN PRN Reason: Anxiety/Agitation Stop: 03/15/21 22:23 Magnesium Hydroxide (Magnesium Hydroxide Susp 30 Ml Udc) 30 ml PO DAILY PRN PRN Reason: Constipation Stop: 03/11/21 02:03 Miscellaneous (Remove Patch Selegiline (Emsam)) 1 ea N/A Q24H OG Stop: 03/24/21 08:58 Last Admin: 03/06/21 07:44 Dose: 1 ea Documented by: Selegiline (Selegiline 6 Mg/24hr Tdsy) 6 mg TD DAILY OG Stop: 03/23/21 08:59 Last Admin: 03/06/21 07:39 Dose: 6 mg Documented by: Sodium Chloride (Sodium Chloride 0.65% Na Soln 45 Ml ([place])) 1 - 2 sprays NA PRN PRN PRN Reason: Nasal Dryness/Congestion Stop: 03/11/21 02:03 Mental Health & Subst Abuse Tx Psychiatrist Name of Psychiatrist: Oniel Negron Psychiatrist's Date of Appointment with Psychiatrist: 03/13/21 Time of Appointment with Psychiatrist: 9:20am Psychiatric Appointment Comment: Zoom *is on waiting list for appt. sooner Therapist Name of Therapist: Unknown Land Management Forester Name of Land Management Forester: Angel Johns Post Discharge Appointments Primary Care Physician Name Of Family Doctor: Unknown
[2021-03-06] MEDS ORDERED: LORazepam 2 MG/ML VIAL (IM USE) IM STA (17:25)
[2021-03-06] MEDS: ENOXAPARIN INJ 40 MG/0.4 ML SYR SQ SCH (17:48)
[2021-03-07] MEDS: [UNRECOGNIZED DRUG - REMARK] SCH (08:05)
[2021-03-07] MEDS: SELEGILINE 6 MG/24 HR TD SCH (08:05)
[2021-03-07] MEDS: LORazepam 1 MG TAB PO SCH ×2 (08:15→17:05)
[2021-03-07 08:29] LABS: BUN Creatinine Ratio 10.8 (10-20); Calcium 8.8 mg/dl (8.5-10.1); Creatinine Clr Calc Pharmacy 139.4 ml/min; Est GFR (African American) 120.2 ml/min; Est GFR (Non-African American) 103.7 ml/min; Potassium 3.2 mmol/L (3.5-5.1)
[2021-03-07 08:32] LABS: Bilirubin,Total 0.6 mg/dl (0.2-1)
[2021-03-07] MEDS ORDERED: LORazepam 2 MG/ML VIAL (IM USE) IM PRN (09:00)
--- NOTE | 2021-03-07 09:43 | Neurology Consultation ---
Date of Consultation March 07, 2021 Assessment & Plan (1) Avolition: (2) Mutism: This patient appears to have schizoaffective disorder associated avolition and mutism. He does not appear to have catatonia. Further, there is no evidence of stroke, neoplasm, hydrocephalus, demyelinating disease, encephalitis or other obvious structural lesion on brain MRI that would otherwise explain his clinical picture. Likewise, his EEG was normal as well, without evidence of encephalopathy or epileptiform abnormalities. Case discussed with Dr. Rose Arevalo. I do not see an indication to pursue additional neurological testing at this time such as repeat MRI, EEG, prolonged EEG monitoring, or lumbar puncture. I agree that he may be an appropriate candidate for ECT. I do not have any further immediate neurological recommendations for his care. Continue management per psychiatry service. History of Present Illness Reason for Consultation: Atypical catatonia? Requesting Physician: Rose Arevalo MD Attending Physician: Rose Arevalo MD History of Present Illness The patient is a 40-year-old male with a history of schizoaffective disorder, depression, and catatonia who was admitted to the behavioral health unit on February 09, 2021 for failure of self-care and worsening decompensation. He spends most of the day in bed moving very little although on occasion he will walk to the common area and eat a little bit. He has been nonverbal. He has not done very well with psychiatric treatment. He will not take oral medications and does not eat consistently. He has lost a considerable amount of weight. He has received IM neuroleptics and benzodiazepines without any benefit. A transdermal MAOI was applied about 2 weeks ago and has not really resulted in much clinical improvement. ECT is under consideration although patient unable to consent. He has not exhibited any seizure-like activity or strokelike symptoms. He did have an unremarkable brain MRI and EEG during this hospitalization. He has not exhibited waxy flexibility or catalepsy or ech olalia. He does not participate with questions and will follow very simple commands to a limited degree. He will grasp minimally with both hands to command. He will wiggle the toes minimally to command. Otherwise, patient will volitionally grab and move the bed sheets. He will avert his gaze. He does not speak or answer questions. He does not make any abnormal vocalizations. He does not display any abnormal movements or dystonic posturing. Allergies Allergy/AdvReac Type Severity Reaction Status Date / Time No Known Allergies Allergy Verified 02/08/21 22:26 Home Medications Medication Instructions Recorded Confirmed Type olanzapine 10 mg tablet (Zyprexa) 15 mg PO HS 03/14/20 02/08/21 History bupropion HCl 100 mg tablet,12 hr 100 mg PO BID 10/31/20 02/08/21 History sustained-release lamotrigine 200 mg tablet 200 mg PO BID 10/31/20 02/08/21 History Patient History Medical History (Updated 03/07/21 @ 10:14 by Jann Anders MD) Anxiety Bipolar disorder Catatonia Depression Obesity Schizoaffective disorder Surgical History No pertinent past surgical history Social History Smoking Status: Unknown if ever smoked Preferred Language: Faroese Communication Ability: 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 Patient is an obese middle-aged male, lying quietly in bed, no acute distress. He awakens fairly easily to voice and tactile stimulation. He is nonverbal and does not participate with questions pertaining to orientation, memory, or fund of knowledge. He seems attentive at times but will avert his gaze. He does not speak spontaneously or answer questions. He does not verbalize. Fund of knowledge cannot be evaluated. He did follow some simple commands, however, such as grasping with both hands of wiggling the toes bilaterally. Visual mitchell full to threat. Blink and oculocephalic reflexes intact. No gaze preference or deviation. No obvious ophthalmoplegia. No ptosis. Pupils 3 mm round and reactive to light bilaterally. Movement of the tongue and palate cannot be evaluated due to poor patient cooperation. Shoulder shrug cannot be evaluated due to poor patient cooperation. Sensory examination cannot be evaluated although he does withdraw the lower limbs to noxious plantar stimulation in a symmetric fashion. Deep tendon reflexes are normoactive and symmetric for the arms and legs, plantar responses downgoing bilaterally. Testing of coordination or [id number] and [id number] cannot be completed due to poor cooperation. Direct ophthalmoscopic examination cannot be completed due to poor cooperation. Carotid pulses normal bilaterally, no bruits to auscultation. Gait and station cannot be tested. Muscle strength cannot be tested although patient does seem to move all 4 limbs spontaneously at times in an equal fashion, no obvious hemiplegia or paraplegia. Muscle tone diffusely normal. No rigidity, spasticity, or waxy flexibility. No atrophy or abnormal movements, fasciculations or abnormal dystonic posturing observed. Results & Data ([facility]) Vital Signs (Past 12 Hours) Vital Signs Temp Pulse Pulse Resp BP BP Pulse Ox 03/07/21 07:30 36.9 C 93 H 16 118/83 92 03/06/21 22:22 112 H 18 104/65 Laboratory Results WBC 7.14, hemoglobin 16.6, hematocrit 47.5, platelet count 168, sodium 138, potassium 3.2, BUN 10, creatinine 0.92, glucose 110, calcium 8.8, AST 26, ALT 60, total protein 6.0, albumin 3.0, TSH 0.418, urine drug screen completed February 08 unremarkable Diagnostic Findings Brain MRI completed February 21, 2021 unremarkable, no evidence of hydrocephalus, neoplasm, stroke, or demyelinating disease. No abnormal postcontrast enhancement. I reviewed the images as well as the radiologist's interpretation of this test. Electroencephalogram completed February 21, 2021 was normal. Normal background activity. No focal or epileptiform abnormalities observed. No findings suggestive of encephalopathy. Coding Level of Care Code 43415 Initial Inpt Care Lvl 3 Diagnoses Avolition R45.89 Mutism R47.01
--- NOTE | 2021-03-07 12:24 | Psychiatric Progress Note ---
Date of Service March 07, 2021 Impression / Recommendations Impression The patient is a 40 year old with a history of schizophrenia vs BPAD, and depression who was admitted for failure of self-care and worsening decompensation. The patient is deemed unstable and requires psychiatric h ospitalization for diagnostic clarification, safety and stabilization, medication management and development of further coping skills. Initially focussed on Ativan dosing for catatonia but no consistent response to meds over objection. Patient seemed worse on Zyprexa, very poor PO. Started Emsam (MAOI patch on 02/21/21). Will focus on medication over objection and readdress possible ECT or antidepressant when improved. 304 status granted. 03/07/21: slow improvement, retrying Ativan. (1) Bipolar disorder with depression: 03/07/21: patient seen by neurology, appreciate input, seems severe vegetative symptoms due to depression though last few doses of Ativan have been more effective than previous. Continue Ativan 1 mg po BID (IM for refusal). Attempt to replete K with powder dissolved in juice. 03/04/21: will explore [facility] as concerns he will not improve to point he can make meals/meet requirements to return to [facility] during this stay. 03/03/21--continue same. Cannot attempt coadmin with stimulant trial for hypersomnia as contraindicated with MAOI. No medical decompensation that would necessitate referral to medical or seeking court order for ECT. At minimum behaviors are challenging but more appropriate when willing to interact with staff. Need to consider longer term care options given slow progression. 03/02/21--interim care reviewed. Continue EMSAM and Lovenox injection. 03/01/21--Day 9 of Emsam patch. Continuing with behavioral plan to encourage behavioral activation-he was provided with plan with goals of having him come out of his room to eat meals, cooperate with repositioning, stand up when his sheets are changed/or if he prefers to stay in bed until the evening then clean sheets can be provided for him to put on the bed or request help putting on the bed in the evening, and continue independently voiding in his bedside urinal, shower can be started for him but he should be encouraged to get into the shower on his own, encourage him to address basic hygiene by continuing to provide him with easy access to his toothbrush, shampoo, etc. 02/28/21--Day 8 of Emsam patch. Now seeing new pattern of daily food intake which is encouraging. Continues to present with regressed behaviors and refusal to interact during the day. 02/27/21--Continue with Emsam patch. Getting out of bed more in the evenings and eating more. Lack of engagement during the day was volitional-pulling blanket over his head after he saw me enter his room. Also becoming more irritable with staff when he is encouraged to do more on his own for behavioral activation. 02/26/21-Continue with Emsam patch. 304 status granted. Ate last night and interacted with staff but no engagement today. 02/25/21--Continues to demonstrate severe depression with neurovegetative symptoms with no engagement with staff. Behavioral plan challenged by finding a reward/incentive that he enjoys. Continuing to encourage behavioral activation. Petitioned for 304 status with hearing scheduled for tomorrow given ongoing symptom burden and need for ongoing treatment. Remains on lovenox for DVT prophylaxis. Continue with Emsam patch. 02/24/21--Remains isolative and will not engage verbally. Encouragingly is attending slightly more to some of his ADLs, will continue with behavioral plan in hopes to continue encouraging behavioral activation although food does not seem to be a good motivator/reward for him. Will continue to think about other possible motivators for him to help encourage increased activity, po intake and engagement with therapeutic milieu. No signs of HTN or other side effects from MAOI at this point. 02/23/21--Continues to demonstrate neurovegetative symptoms of depression, remaining in bed most of the day but sometimes more engagement in the evenings. Will implement behavioral plan to encourage behavioral activation to treat neurovegetative symptoms in conjunction with Emsam as well as to encourage incre ased participation with ADLs. Nursing to provide him with tools to help him eat and promote good hygiene (brining in meals, supplies to wash up) and then if he does this independently will bring in ice cream or chips as reward to see if this helps with activation and increased po intake. 02/22/21--neurologic work up with EEG and brain MRI unremarkable, continue Emsam trial. 02/21/21--complex differential--depression with psychotic features in a patient with bipolar disorder most likely, certainly not typcial catatonia. No hx of hyperphagia or hypersexuality known that would suggest Kleine-Hess syndrome. Will proceed with Emsam patch 6 mg trial as only means to administer antidepressant. Will check with an ECT facility to determine if can treat patient if pursue a court order (will await emsam trial first). MRI brain (patient will need various x rays first as can't answer screening questions, no hx of pacemaker on chart). bedside EEG to rule out status epilepticus. 02/19/21--non-formulary request for Emsam patch. Hasn't taken antidepressants for at least 6 weeks. Would reconsider current med doses when this becomes available. without antidepressant he will continue to decompensate medically and is at significant risk of further decompensation. 02/17/21--lytes, Bun/Cr improved; given sleep phase shift desirable to shift antipsychotic to pm meal with IM Zyprexa for refusal. Bedside EEG likely poor quality/low yeild but consider if no improvement. 02/16/21--Reviewed care by Dr. Garces in italics. will d/c IM Ativan in favor of Zyprexa IM for failure to take Latuda. Does take Lorazepam prn PO, adjust dose and frequency and monitor use. Will repeat labs and PO intake so variable and hard to track. 02/09/2021--admitted to [facility]. Ativan 2mg SL TID ordered. Track Is&Os. Vitals BID. 02/10/2021--continue with ativan 2mg TID SL. Showing significant improving in catatonic symptoms since ativan trial last night. If he continues to walk around no need for DVT prophylaxis. Will consider if 302 needs to be converted to 303 based on progress today. 02/11/2021--continue with scheduled ativan. Less engagement today but still eating and drinking. Plan for likely 303 given his inability/reluctance to engage in treatment. Reviewed outside records. 02/12/2021--continues to refuse ativan today and won't engage with anyone nor leave his bed except to use the bathroom and to eat at night. Given some movement in the evening and to the bathroom he doesn't require DVT prophylaxis at this time but this remains a concern should he clinically worsen and will continue to monitor his nutritional and medical status closely. 02/13/2021--placed on 303 status due to ongoing decompensation due to catatonia including refusal of medication, not eating, not drinking, not communicating with anyone and lying in bed all day. Once catatonia begins to improve with treatment will aim to start latuda which helped previously. [place] to require medications over objection for ativan to treat catatonia. If catatonia does not respond quickly to ativan then will consider if DVT prophylaxis should be initiated. 02/14/2021--no significant change in behaviors with additional of scheduled ativan 2 mg BID as medication over objection. Given concern for skin breakdown consult was placed for wound nurse. Given concern for possible DVT and after discussion with hospitalist will begin lovenox 40mg subQ daily. David was able to vocalize consent for this as he remains mute and unable/unwilling to engage but explained the risks, benefits, alternatives and rationale for lovenox and that we will be offering this to him. 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 02/15/2021--Have ruled out catatonia given inconsistent response to ativan trial, multiple observed examples of volitional movement immediately following periods of patient lying in bed and mute. Subsequent catatonia scales have been negative and patient feels that his symptoms represent withdrawn features of anxiety and depression. Given bipolar depression with neurovegetative features will start latuda. Encouragingly he is eating more and drinking more and got out of bed twice last night. Risk Factors Assessment Male: Yes : Yes Do You Have Access To A Gun?: No (in supportive living enviornment, pt unable to answer ) Mental Health Diagnoses: Yes Previous Psychiatric Hospitalization: Yes Protective Factors Assessment Employed: No Interval History Identifying Information 40 yo man with history of catatonia, depression, possible BPAD vs schizophrenia admitted due to concern for catatonia and decompensation with failure of self- care at [facility]. Admitted on 302, now 304. Chief Complaint selective mutism. Review of Systems Sleep Information Total Hours of Sleep: 6 Sleep Comments: pt on q-15 minute checks Meal Information Percent Meal Consumed - Breakfast: 0 Percent Meal Consumed - Lunch: 0 Percent Meal Consumed - Dinner: 100 Nutrition Comment: Pt was informed food was here. Subjective Subjective Patient was seen & assessed and interval progress reviewed with nursing and social work. Patient received 1 mg of Ativan last pm. Soon after did eat a sandwich and attend group. This am he is back in bed even after IM Ativan. Poor participation with neuro exam. Poor hygiene in that will not shower. Physical Exam Psychiatric poor eye contact, selective mutism, follows simple commands, hard to tell if though blocked, remains unable to care for self outside of the hospital. Vital Signs (Past 24 Hours) Last Vital Signs Temp 36.9 C 03/07/21 07:30 Pulse 93 H 03/07/21 07:30 Resp 16 03/07/21 07:30 BP 118/83 03/07/21 07:30 Pulse Ox 92 03/07/21 07:30 Results & Data ([facility]) Laboratory Results Laboratory Results - last 24 hr 03/07/21 07:33 Sodium 138 Potassium 3.2 L Chloride 108 H Carbon Dioxide 23 Anion Gap 8.0 BUN 10 Creatinine 0.92 Est Cr Clr Drug Dosing 139.4 Est GFR ( Amer) 120.2 Est GFR (Non-Af Amer) 103.7 BUN/Creatinine Ratio 10.8 Glucose 110 H Calcium 8.8 Total Bilirubin 0.6 AST 26 ALT 60 Alkaline Phosphatase 93 Total Protein 6.0 L Albumin 3.0 L Globulin 3.0 Albumin/Globulin Ratio 1.0 Current Inpatient Medications Current Inpatient Medications: Current Inpatient Medications Acetaminophen (Acetaminophen 325 Mg Tab) 650 mg PO Q4H PRN PRN Reason: Headache or Minor Fever Stop: 03/11/21 02:03 Last Admin: 02/15/21 18:44 Dose: 650 mg Documented by: Al Hydrox/Mg Hydrox/Simethicone (Aluminum/Magnesium Susp 30 Ml Udc) 30 ml PO Q4H PRN PRN Reason: GI Upset Stop: 03/11/21 02:03 Bismuth Subsalicylate (Bismuth Subsalicylate Liqd 236 Ml) 15 ml PO PRN PRN PRN Reason: Loose Stool Stop: 03/11/21 02:03 Enoxaparin Sodium (Enoxaparin Inj 40 Mg/0.4 Ml Syr) 40 mg SQ DAILYBD OG Stop: 04/06/21 17:14 Hydroxyzine HCl (Hydroxyzine Hcl 25 Mg Tab) 50 mg PO HSZ PRN PRN Reason: Insomnia Stop: 03/11/21 02:03 Hydroxyzine HCl (Hydroxyzine Hcl 25 Mg Tab) 25 mg PO Q4H PRN PRN Reason: Anxiety Stop: 03/11/21 02:03 Lorazepam (Lorazepam 1 Mg Tab) 1 mg PO Q6 PRN PRN Reason: Anxiety/Agitation Stop: 03/15/21 22:23 Lorazepam (Lorazepam 1 Mg Tab) 1 mg PO BIDM OG Stop: 04/06/21 08:59 Last Admin: 03/07/21 08:15 Dose: Not Given Documented by: Lorazepam (Lorazepam 2 Mg/Ml Vial (Im Use)) 1 mg IM BIDM PRN PRN Reason: for refusal of each PO dose Stop: 04/06/21 08:59 Last Admin: 03/07/21 08:17 Dose: 1 mg Documented by: Magnesium Hydroxide (Magnesium Hydroxide Susp 30 Ml Udc) 30 ml PO DAILY PRN PRN Reason: Constipation Stop: 03/11/21 02:03 Miscellaneous (Remove Patch Selegiline (Emsam)) 1 ea N/A Q24H OG Stop: 03/24/21 08:58 Last Admin: 03/07/21 08:05 Dose: 1 ea Documented by: Selegiline (Selegiline 6 Mg/24hr Tdsy) 6 mg TD DAILY OG Stop: 03/23/21 08:59 Last Admin: 03/07/21 08:05 Dose: 6 mg Documented by: Sodium Chloride (Sodium Chloride 0.65% Na Soln 45 Ml ([place])) 1 - 2 sprays NA PRN PRN PRN Reason: Nasal Dryness/Congestion Stop: 03/11/21 02:03 Mental Health & Subst Abuse Tx Psychiatrist Name of Psychiatrist: Oniel Negron Psychiatrist's Date of Appointment with Psychiatrist: 03/13/21 Time of Appointment with Psychiatrist: 9:20am Psychiatric Appointment Comment: Zoom *is on waiting list for appt. sooner Therapist Name of Therapist: Unknown Global Risk Management Director Name of Global Risk Management Director: Angel Johns Post Discharge Appointments Primary Care Physician Name Of Family Doctor: Unknown
[2021-03-07] MEDS ORDERED: POTASSIUM CHLORIDE PWD 20 MEQ PACK PO ONE (12:42)
[2021-03-07] MEDS: ENOXAPARIN INJ 40 MG/0.4 ML SYR SQ SCH (17:04)
[2021-03-08] MEDS ORDERED: LORazepam 2 MG TAB PO SCH (09:00)
[2021-03-08] MEDS: SELEGILINE 6 MG/24 HR TD SCH (09:55)
[2021-03-08] MEDS: [UNRECOGNIZED DRUG - REMARK] SCH (10:01)
[2021-03-08] MEDS: LORazepam 1 MG TAB PO SCH ×2 (11:27→17:11)
[2021-03-08] MEDS: LORazepam 2 MG/ML VIAL (IM USE) IM PRN (11:36)
--- NOTE | 2021-03-08 12:10 | Psychiatric Progress Note ---
Date of Service March 08, 2021 Impression / Recommendations Impression The patient is a 40 year old with a history of schizophrenia vs BPAD, and depression who was admitted for failure of self-care and worsening decompensation. The patient is deemed unstable and requires psychiatric h ospitalization for diagnostic clarification, safety and stabilization, medication management and development of further coping skills. Initially focussed on Ativan dosing for catatonia but no consistent response to meds over objection. Patient seemed worse on Zyprexa, very poor PO. Started Emsam (MAOI patch on 02/21/21). Will focus on medication over objection and readdress possible ECT or antidepressant when improved. 304 status granted. 03/08/21: slow improvement, continue Ativan retrial, tends to be more active in the afternoon so monitor. (1) Bipolar disorder with depression: 03/08/21: Ativan 2 mg BID trial. 03/07/21: patient seen by neurology, appreciate input, seems severe vegetative symptoms due to depression though last few doses of Ativan have been more effective than previous. Continue Ativan 1 mg po BID (IM for refusal). Attempt to replete K with powder dissolved in juice. 03/04/21: will explore personal fci as concerns he will not improve to point he can make meals/meet requirements to return to [facility] during this stay. 03/03/21--continue same. Cannot attempt coadmin with stimulant trial for hypersomnia as contraindicated with MAOI. No medical decompensation that would necessitate referral to medical or seeking court order for ECT. At minimum behaviors are challenging but more appropriate when willing to interact with staff. Need to consider longer term care options given slow progression. 03/02/21--interim care reviewed. Continue EMSAM and Lovenox injection. 03/01/21--Day 9 of Emsam patch. Continuing with behavioral plan to encourage behavioral activation-he was provided with plan with goals of having him come out of his room to eat meals, cooperate with repositioning, stand up when his sheets are changed/or if he prefers to stay in bed until the evening then clean sheets can be provided for him to put on the bed or request help putting on the bed in the evening, and continue independently voiding in his bedside urinal, shower can be started for him but he should be encouraged to get into the shower on his own, encourage him to address basic hygiene by continuing to provide him with easy access to his toothbrush, shampoo, etc. 02/28/21--Day 8 of Emsam patch. Now seeing new pattern of daily food intake which is encouraging. Continues to present with regressed behaviors and refusal to interact during the day. 02/27/21--Continue with Emsam patch. Getting out of bed more in the evenings and eating more. Lack of engagement during the day was volitional-pulling blanket over his head after he saw me enter his room. Also becoming more irritable with staff when he is encouraged to do more on his own for behavioral activation. 02/26/21-Continue with Emsam patch. 304 status granted. Ate last night and interacted with staff but no engagement today. 02/25/21--Continues to demonstrate severe depression with neurovegetative symptoms with no engagement with staff. Behavioral plan challenged by finding a reward/incentive that he enjoys. Continuing to encourage behavioral activation. Petitioned for 304 status with hearing scheduled for tomorrow given ongoing symptom burden and need for ongoing treatment. Remains on lovenox for DVT prophylaxis. Continue with Emsam patch. 02/24/21--Remains isolative and will not engage verbally. Encouragingly is attending slightly more to some of his ADLs, will continue with behavioral plan in hopes to continue encouraging behavioral activation although food does not seem to be a good motivator/reward for him. Will continue to think about other possible motivators for him to help encourage increased activity, po intake and engagement with therapeutic milieu. No signs of HTN or other side effects from MAOI at this point. 02/23/21--Continues to demonstrate neurovegetative symptoms of depression, remaining in bed most of the day but sometimes more engagement in the evenings. Will implement behavioral plan to encourage behavioral activation to treat neurovegetative symptoms in conjunction with Emsam as well as to encourage increased participation with ADLs. Nursing to provide him with tools to help him eat and promote good hygiene (brining in meals, supplies to wash up) and then if he does this independently will bring in ice cream or chips as reward to see if this helps with activation and increased po intake. 02/22/21--neurologic work up with EEG and brain MRI unremarkable, continue Emsam trial. 02/21/21--complex differential--depression with psychotic features in a patient with bipolar disorder most likely, certainly not typcial catatonia. No hx of hyperphagia or hypersexuality known that would suggest Kleine-Hess syndrome. Will proceed with Emsam patch 6 mg trial as only means to administer antidepressant. Will check with an ECT facility to determine if can treat patient if pursue a court order (will await emsam trial first). MRI brain (patient will need various x rays first as can't answer screening questions, no hx of pacemaker on chart). bedside EEG to rule out status epilepticus. 02/19/21--non-formulary request for Emsam patch. Hasn't taken antidepressants for at least 6 weeks. Would reconsider current med doses when this becomes available. without antidepressant he will continue to decompensate medically and is at significant risk of further decompensation. 02/17/21--lytes, Bun/Cr improved; given sleep phase shift desirable to shift antipsychotic to pm meal with IM Zyprexa for refusal. Bedside EEG likely poor quality/low yeild but consider if no improvement. 02/16/21--Reviewed care by Dr. Garces in italics. will d/c IM Ativan in favor of Zyprexa IM for failure to take Latuda. Does take Lorazepam prn PO, adjust dose and frequency and monitor use. Will repeat labs and PO intake so variable and hard to track. 02/09/2021--admitted to [facility]. Ativan 2mg SL TID ordered. Track Is&Os. Vitals BID. 02/10/2021--continue with ativan 2mg TID SL. Showing significant improving in ca tatonic symptoms since ativan trial last night. If he continues to walk around no need for DVT prophylaxis. Will consider if 302 needs to be converted to 303 based on progress today. 02/11/2021--continue with scheduled ativan. Less engagement today but still eating and drinking. Plan for likely 303 given his inability/reluctance to engage in treatment. Reviewed outside records. 02/12/2021--continues to refuse ativan today and won't engage with anyone nor leave his bed except to use the bathroom and to eat at night. Given some movement in the evening and to the bathroom he doesn't require DVT prophylaxis at this time but this remains a concern should he clinically worsen and will continue to monitor his nutritional and medical status closely. 02/13/2021--placed on 303 status due to ongoing decompensation due to catatonia including refusal of medication, not eating, not drinking, not communicating with anyone and lying in bed all day. Once catatonia begins to improve with treatment will aim to start latuda which helped previously. [place] to require medications over objection for ativan to treat catatonia. If catatonia does not respond quickly to ativan then will consider if DVT prophylaxis should be initiated. 02/14/2021--no significant change in behaviors with additional of scheduled ativan 2 mg BID as medication over objection. Given concern for skin breakdown consult was placed for wound nurse. Given concern for possible DVT and after discussion with hospitalist will begin lovenox 40mg subQ daily. David was able to vocalize consent for this as he remains mute and unable/unwilling to engage but explained the risks, benefits, alternatives and rationale for lovenox and that we will be offering this to him. 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 02/15/2021--Have ruled out catatonia given inconsistent response to ativan trial, multiple observed examples of volitional movement immediately following periods of patient lying in bed and mute. Subsequent catatonia scales have been negative and patient feels that his symptoms represent withdrawn features of anxiety and depression. Given bipolar depression with neurovegetative features will start latuda. Encouragingly he is eating more and drinking more and got out of bed twice last night. Risk Factors Assessment Male: Yes : Yes Do You Have Access To A Gun?: No (in supportive living enviornment, pt unable to answer ) Mental Health Diagnoses: Yes Previous Psychiatric Hospitalization: Yes Protective Factors Assessment Employed: No Interval History Identifying Information 40 yo man with history of catatonia, depression, possible BPAD vs schizophrenia admitted due to concern for catatonia and decompensation with failure of self- care at [facility]. Admitted on 302, now 304. Chief Complaint mute. Review of Systems Sleep Information Total Hours of Sleep: 8.5 Sleep Comments: pt on q-15 minute checks Meal Information Percent Meal Consumed - Breakfast: 0 Percent Meal Consumed - Lunch: 0 Percent Meal Consumed - Dinner: 100 Nutrition Comment: Pt was informed food was here. Subjective Subjective Patient was seen & assessed and interval progress reviewed with treatment team. Less active on evenings but is eating bananas, drinking juice. Did take 2nd dose of Ativan PO yesterday but today required IM. No evidence of sedation from 1 mg so retrial of 2 mg Ativan BID for presumed catatonic features. Physical Exam Psychiatric will not participate or open eyes. Vital Signs (Past 24 Hours) Last Vital Signs Temp 36.9 C 03/08/21 06:48 Pulse 80 03/08/21 06:48 Resp 18 03/08/21 06:48 BP 103/66 03/08/21 06:48 Pulse Ox 95 03/07/21 20:49 Results & Data ([facility]) Current Inpatient Medications Current Inpatient Medications: Current Inpatient Medications Acetaminophen (Acetaminophen 325 Mg Tab) 650 mg PO Q4H PRN PRN Reason: Headache or Minor Fever Stop: 03/11/21 02:03 Last Admin: 02/15/21 18:44 Dose: 650 mg Documented by: Al Hydrox/Mg Hydrox/Simethicone (Aluminum/Magnesium Susp 30 Ml Udc) 30 ml PO Q4H PRN PRN Reason: GI Upset Stop: 03/11/21 02:03 Bismuth Subsalicylate (Bismuth Subsalicylate Liqd 236 Ml) 15 ml PO PRN PRN PRN Reason: Loose Stool Stop: 03/11/21 02:03 Enoxaparin Sodium (Enoxaparin Inj 40 Mg/0.4 Ml Syr) 40 mg SQ DAILYBD OG Stop: 04/06/21 17:14 Last Admin: 03/07/21 17:04 Dose: 40 mg Documented by: Hydroxyzine HCl (Hydroxyzine Hcl 25 Mg Tab) 50 mg PO HSZ PRN PRN Reason: Insomnia Stop: 03/11/21 02:03 Hydroxyzine HCl (Hydroxyzine Hcl 25 Mg Tab) 25 mg PO Q4H PRN PRN Reason: Anxiety Stop: 03/11/21 02:03 Lorazepam (Lorazepam 1 Mg Tab) 1 mg PO Q6 PRN PRN Reason: Anxiety/Agitation Stop: 03/15/21 22:23 Lorazepam (Lorazepam 1 Mg Tab) 2 mg PO BIDM OG Stop: 04/07/21 09:29 Last Admin: 03/08/21 11:27 Dose: Not Given Documented by: Lorazepam (Lorazepam 2 Mg/Ml Vial (Im Use)) 2 mg IM BIDM PRN PRN Reason: for refusal of each PO dose Stop: 04/06/21 08:59 Last Admin: 03/08/21 11:36 Dose: 2 mg Documented by: Magnesium Hydroxide (Magnesium Hydroxide Susp 30 Ml Udc) 30 ml PO DAILY PRN PRN Reason: Constipation Stop: 03/11/21 02:03 Miscellaneous (Remove Patch Selegiline (Emsam)) 1 ea N/A Q24H OG Stop: 03/24/21 08:58 Last Admin: 03/08/21 10:01 Dose: 1 ea Documented by: Selegiline (Selegiline 6 Mg/24hr Tdsy) 6 mg TD DAILY OG Stop: 03/23/21 08:59 Last Admin: 03/08/21 09:55 Dose: 6 mg Documented by: Sodium Chloride (Sodium Chloride 0.65% Na Soln 45 Ml ([place])) 1 - 2 sprays NA PRN PRN PRN Reason: Nasal Dryness/Congestion Stop: 03/11/21 02:03 Mental Health & Subst Abuse Tx Psychiatrist Name of Psychiatrist: Oniel Negron Psychiatrist's Date of Appointment with Psychiatrist: 03/13/21 Time of Appointment with Psychiatrist: 9:20am Psychiatric Appointment Comment: Zoom *is on waiting list for appt. sooner Therapist Name of Therapist: Unknown Trimmer Sorter Name of Trimmer Sorter: Angel Johns Post Discharge Appointments Primary Care Physician Name Of Family Doctor: Unknown
[2021-03-08] MEDS: ENOXAPARIN INJ 40 MG/0.4 ML SYR SQ SCH (17:09)
[2021-03-09] MEDS: SELEGILINE 6 MG/24 HR TD SCH (09:14)
[2021-03-09] MEDS: [UNRECOGNIZED DRUG - REMARK] SCH (09:14)
[2021-03-09] MEDS: LORazepam 1 MG TAB PO SCH ×2 (09:18→17:13)
[2021-03-09] MEDS: LORazepam 2 MG/ML VIAL (IM USE) IM PRN (09:22)
--- NOTE | 2021-03-09 10:02 | Psychiatric Progress Note ---
Date of Service March 09, 2021 Impression / Recommendations Impression The patient is a 40 year old with a history of schizophrenia vs BPAD, and depression who was admitted for failure of self-care and worsening decompensation. The patient is deemed unstable and requires psychiatric h ospitalization for diagnostic clarification, safety and stabilization, medication management and development of further coping skills. Initially focussed on Ativan dosing for catatonia but no consistent response to meds over objection. Patient seemed worse on Zyprexa, very poor PO. Started Emsam (MAOI patch on 02/21/21). Will focus on medication over objection and readdress possible ECT or antidepressant when improved. 304 status granted. 03/09/21: reviewed interim notes, continue with ativan and Emsam patch, showing some increase in engagement-even attended a group last week (1) Bipolar disorder with depression: 03/09/21: Reviewed interim progress. Continue Emsam patch and ativan 2mg BID trial-will monitor for excessive sedation. Repeat bloodwork on 03/11/21 03/08/21: Ativan 2 mg BID trial. 03/07/21: patient seen by neurology, appreciate input, seems severe vegetative symptoms due to depression though last few doses of Ativan have been more effective than previous. Continue Ativan 1 mg po BID (IM for refusal). Attempt to replete K with powder dissolved in juice. 03/04/21: will explore personal group home as concerns he will not improve to point he can make meals/meet requirements to return to [facility] during this stay. 03/03/21--continue same. Cannot attempt coadmin with stimulant trial for hypersomnia as contraindicated with MAOI. No medical decompensation that would necessitate referral to medical or seeking court order for ECT. At minimum behaviors are challenging but more appropriate when willing to interact with staff. Need to consider longer term care options given slow progression. 03/02/21--interim care reviewed. Continue EMSAM and Lovenox injection. 03/01/21--Day 9 of Emsam patch. Continuing with behavioral plan to encourage behavioral activation-he was provided with plan with goals of having him come out of his room to eat meals, cooperate with repositioning, stand up when his sheets are changed/or if he prefers to stay in bed until the evening then clean sheets can be provided for him to put on the bed or request help putting on the bed in the evening, and continue independently voiding in his bedside urinal, shower can be started for him but he should be encouraged to get into the shower on his own, encourage him to address basic hygiene by continuing to provide him with easy access to his toothbrush, shampoo, etc. 02/28/21--Day 8 of Emsam patch. Now seeing new pattern of daily food intake which is encouraging. Continues to present with regressed behaviors and refusal to interact during the day. 02/27/21--Continue with Emsam patch. Getting out of bed more in the evenings and eating more. Lack of engagement during the day was volitional-pulling blanket over his head after he saw me enter his room. Also becoming more irritable with staff when he is encouraged to do more on his own for behavioral activation. 02/26/21-Continue with Emsam patch. 304 status granted. Ate last night and i nteracted with staff but no engagement today. 02/25/21--Continues to demonstrate severe depression with neurovegetative symptoms with no engagement with staff. Behavioral plan challenged by finding a reward/incentive that he enjoys. Continuing to encourage behavioral activation. Petitioned for 304 status with hearing scheduled for tomorrow given ongoing symptom burden and need for ongoing treatment. Remains on lovenox for DVT prophylaxis. Continue with Emsam patch. 02/24/21--Remains isolative and will not engage verbally. Encouragingly is attending slightly more to some of his ADLs, will continue with behavioral plan in hopes to continue encouraging behavioral activation although food does not seem to be a good motivator/reward for him. Will continue to think about other possible motivators for him to help encourage increased activity, po intake and engagement with therapeutic milieu. No signs of HTN or other side effects from MAOI at this point. 02/23/21--Continues to demonstrate neurovegetative symptoms of depression, remaining in bed most of the day but sometimes more engagement in the evenings. Will implement behavioral plan to encourage behavioral activation to treat n eurovegetative symptoms in conjunction with Emsam as well as to encourage increased participation with ADLs. Nursing to provide him with tools to help him eat and promote good hygiene (brining in meals, supplies to wash up) and then if he does this independently will bring in ice cream or chips as reward to see if this helps with activation and increased po intake. 02/22/21--neurologic work up with EEG and brain MRI unremarkable, continue Emsam trial. 02/21/21--complex differential--depression with psychotic features in a patient with bipolar disorder most likely, certainly not typcial catatonia. No hx of hyperphagia or hypersexuality known that would suggest Kleine-Hess syndrome. Will proceed with Emsam patch 6 mg trial as only means to administer antidepressant. Will check with an ECT facility to determine if can treat patient if pursue a court order (will await emsam trial first). MRI brain (patient will need various x rays first as can't answer screening questions, no hx of pacemaker on chart). bedside EEG to rule out status epilepticus. 02/19/21--non-formulary request for Emsam patch. Hasn't taken antidepressants for at least 6 weeks. Would reconsider current med doses when this becomes available. without antidepressant he will continue to decompensate medically and is at significant risk of further decompensation. 02/17/21--lytes, Bun/Cr improved; given sleep phase shift desirable to shift antipsychotic to pm meal with IM Zyprexa for refusal. Bedside EEG likely poor quality/low yeild but consider if no improvement. 02/16/21--Reviewed care by Dr. Garces in italics. will d/c IM Ativan in favor of Zyprexa IM for failure to take Latuda. Does take Lorazepam prn PO, adjust dose and frequency and monitor use. Will repeat labs and PO intake so variable and hard to track. 02/09/2021--admitted to [facility]. Ativan 2mg SL TID ordered. Track Is&Os. Vitals BID. 02/10/2021--continue with ativan 2mg TID SL. Showing significant improving in catatonic symptoms since ativan trial last night. If he continues to walk around no need for DVT prophylaxis. Will consider if 302 needs to be converted to 303 based on progress today. 02/11/2021--continue with scheduled ativan. Less engagement today but still eating and drinking. Plan for likely 303 given his inability/reluctance to engage in treatment. Reviewed outside records. 02/12/2021--continues to refuse ativan today and won't engage with anyone nor leave his bed except to use the bathroom and to eat at night. Given some movement in the evening and to the bathroom he doesn't require DVT prophylaxis at this time but this remains a concern should he clinically worsen and will continue to monitor his nutritional and medical status closely. 02/13/2021--placed on 303 status due to ongoing decompensation due to catatonia including refusal of medication, not eating, not drinking, not communicating with anyone and lying in bed all day. Once catatonia begins to improve with treatment will aim to start latuda which helped previously. [place] to require medications over objection for ativan to treat catatonia. If catatonia does not respond quickly to ativan then will consider if DVT prophylaxis should be initiated. 02/14/2021--no significant change in behaviors with additional of scheduled ativan 2 mg BID as medication over objection. Given concern for skin breakdown consult was placed for wound nurse. Given concern for possible DVT and after discussion with hospitalist will begin lovenox 40mg subQ daily. David was able to vocalize consent for this as he remains mute and unable/unwilling to engage but explained the risks, benefits, alternatives and rationale for lovenox and that we will be offering this to him. 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 02/15/2021--Have ruled out catatonia given inconsistent response to ativan trial, multiple observed examples of volitional movement immediately following periods of patient lying in bed and mute. Subsequent catatonia scales have been negative and patient feels that his symptoms represent withdrawn features of anxiety and depression. Given bipolar depression with neurovegetative features will start latuda. Encouragingly he is eating more and drinking more and got out of bed twice last night. Risk Factors Assessment Male: Yes : Yes Do You Have Access To A Gun?: No (in supportive living enviornment, pt unable to answer ) Mental Health Diagnoses: Yes Previous Psychiatric Hospitalization: Yes Protective Factors Assessment Employed: No Interval History Identifying Information 40 yo man with history of catatonia, depression, possible BPAD vs schizophrenia admitted due to concern for catatonia and decompensation with failure of self- care at [facility]. Admitted on 302, now 304. Chief Complaint mute. Review of Systems Sleep Information Total Hours of Sleep: 6.75 Sleep Comments: pt on q-15 minute checks Meal Information Percent Meal Consumed - Breakfast: 0 Percent Meal Consumed - Lunch: 0 Percent Meal Consumed - Dinner: 100 Nutrition Comment: 25 Subjective Subjective Patient was seen & assessed and interval progress reviewed with treatment team nursing and social work. Increasing activity in the evenings and some engagement with staff. Mute today but kept eyes slightly open while I reviewed his current medications and discussed plan to recheck blood work on Thursday. Physical Exam Psychiatric Orientation: + uncooperative Apperance: + disheveled Eye Contact: + poor eye contact Motor Behavior: no abnormal motor movements and + psychomotor retardation Speech: + mute Affect: + flat affect Thought Process: + thought process not goal directed (unable to assess) Insight: + impaired insight Judgement: + severely impaired judgement Vital Signs (Past 24 Hours) Last Vital Signs Temp 36.9 C 03/08/21 20:06 Pulse 89 03/08/21 19:31 Resp 16 03/08/21 19:31 BP 111/74 03/08/21 19:31 Pulse Ox 96 03/08/21 19:31 Results & Data ([facility]) Current Inpatient Medications Current Inpatient Medications: Current Inpatient Medications Acetaminophen (Acetaminophen 325 Mg Tab) 650 mg PO Q4H PRN PRN Reason: Headache or Minor Fever Stop: 03/11/21 02:03 Last Admin: 02/15/21 18:44 Dose: 650 mg Documented by: Al Hydrox/Mg Hydrox/Simethicone (Aluminum/Magnesium Susp 30 Ml Udc) 30 ml PO Q4H PRN PRN Reason: GI Upset Stop: 03/11/21 02:03 Bismuth Subsalicylate (Bismuth Subsalicylate Liqd 236 Ml) 15 ml PO PRN PRN PRN Reason: Loose Stool Stop: 03/11/21 02:03 Enoxaparin Sodium (Enoxaparin Inj 40 Mg/0.4 Ml Syr) 40 mg SQ DAILYBD OG Stop: 04/06/21 17:14 Last Admin: 03/08/21 17:09 Dose: 40 mg Documented by: Hydroxyzine HCl (Hydroxyzine Hcl 25 Mg Tab) 50 mg PO HSZ PRN PRN Reason: Insomnia Stop: 03/11/21 02:03 Hydroxyzine HCl (Hydroxyzine Hcl 25 Mg Tab) 25 mg PO Q4H PRN PRN Reason: Anxiety Stop: 03/11/21 02:03 Lorazepam (Lorazepam 1 Mg Tab) 1 mg PO Q6 PRN PRN Reason: Anxiety/Agitation Stop: 03/15/21 22:23 Lorazepam (Lorazepam 1 Mg Tab) 2 mg PO BIDM OG Stop: 04/07/21 09:29 Last Admin: 03/09/21 09:18 Dose: Not Given Documented by: Lorazepam (Lorazepam 2 Mg/Ml Vial (Im Use)) 2 mg IM BIDM PRN PRN Reason: for refusal of each PO dose Stop: 04/06/21 08:59 Last Admin: 03/09/21 09:22 Dose: 2 mg Documented by: Magnesium Hydroxide (Magnesium Hydroxide Susp 30 Ml Udc) 30 ml PO DAILY PRN PRN Reason: Constipation Stop: 03/11/21 02:03 Miscellaneous (Remove Patch Selegiline (Emsam)) 1 ea N/A Q24H OG Stop: 03/24/21 08:58 Last Admin: 03/09/21 09:14 Dose: 1 ea Documented by: Selegiline (Selegiline 6 Mg/24hr Tdsy) 6 mg TD DAILY OG Stop: 03/23/21 08:59 Last Admin: 03/09/21 09:14 Dose: 6 mg Documented by: Sodium Chloride (Sodium Chloride 0.65% Na Soln 45 Ml ([place])) 1 - 2 sprays NA PRN PRN PRN Reason: Nasal Dryness/Congestion Stop: 03/11/21 02:03 Mental Health & Subst Abuse Tx Psychiatrist Name of Psychiatrist: Oniel Negron Psychiatrist's Date of Appointment with Psychiatrist: 03/13/21 Time of Appointment with Psychiatrist: 9:20am Psychiatric Appointment Comment: Zoom *is on waiting list for appt. sooner Therapist Name of Therapist: Unknown Shaper Operator Name of Shaper Operator: Angel Johns Post Discharge Appointments Primary Care Physician Name Of Family Doctor: Unknown
[2021-03-09] MEDS: ENOXAPARIN INJ 40 MG/0.4 ML SYR SQ SCH (17:12)
--- NOTE | 2021-03-10 08:32 | Psychiatric Progress Note ---
Date of Service March 10, 2021 Impression / Recommendations Impression The patient is a 40 year old with a history of schizophrenia vs BPAD, and depression who was admitted for failure of self-care and worsening decompensation. The patient is deemed unstable and requires psychiatric h ospitalization for diagnostic clarification, safety and stabilization, medication management and development of further coping skills. Initially focussed on Ativan dosing for catatonia but no consistent response to meds over objection. Patient seemed worse on Zyprexa, very poor PO. Started Emsam (MAOI patch on 02/21/21). Will focus on medication over objection and readdress possible ECT or antidepressant when improved. 304 status granted. 03/10/21: spoke today and engaged with some discussions about treatment, discussion of visitors/involving his case consultant or family lead to him shutting down again and not engaging. (1) Bipolar disorder with depression: 03/10/21: Reduce ativan to 1 mg BID due to dizziness, low BP and possible fall yesterday. Will discontinue lovenox per his request and since he is now consistently moving around throughout the day and at night, discussed risk of blood clots if he doesn't continue to move around and ambulate frequently which he vocalized understanding of and agreement with. Given improvement in nutritional intake will hold off on rechecking labwork for now, will get repeat labs in 1 week on 03/14. 03/09/21: Reviewed interim progress. Continue Emsam patch and ativan 2mg BID trial-will monitor for excessive sedation. 03/08/21: Ativan 2 mg BID trial. 03/07/21: patient seen by neurology, appreciate input, seems severe vegetative symptoms due to depression though last few doses of Ativan have been more effective than previous. Continue Ativan 1 mg po BID (IM for refusal). Attempt to replete K with powder dissolved in juice. 03/04/21: will explore personal retirement as concerns he will not improve to point he can make meals/meet requirements to return to [facility] during this stay. 03/03/21--continue same. Cannot attempt coadmin with stimulant trial for hypersomnia as contraindicated with MAOI. No medical decompensation that would necessitate referral to medical or seeking court order for ECT. At minimum behaviors are challenging but more appropriate when willing to interact with staff. Need to consider longer term care options given slow progression. 03/02/21--interim care reviewed. Continue EMSAM and Lovenox injection. 03/01/21--Day 9 of Emsam patch. Continuing with behavioral plan to encourage behavioral activation-he was provided with plan with goals of having him come out of his room to eat meals, cooperate with repositioning, stand up when his sheets are changed/or if he prefers to stay in bed until the evening then clean sheets can be provided for him to put on the bed or request help putting on the bed in the evening, and continue independently voiding in his bedside urinal, shower can be started for him but he should be encouraged to get into the shower on his own, encourage him to address basic hygiene by continuing to provide him with easy access to his toothbrush, shampoo, etc. 02/28/21--Day 8 of Emsam patch. Now seeing new pattern of daily food intake which is encouraging. Continues to present with regressed behaviors and refusal to interact during the day. 02/27/21--Continue with Emsam patch. Getting out of bed more in the evenings and eating more. Lack of engagement during the day was volitional-pulling blanket over his head after he saw me enter his room. Also becoming more irritable with staff when he is encouraged to do more on his own for behavioral activation. 02/26/21-Continue with Emsam patch. 304 status granted. Ate last night and interacted with staff but no engagement today. 02/25/21--Continues to demonstrate severe depression with neurovegetative symptoms with no engagement with staff. Behavioral plan challenged by finding a reward/incentive that he enjoys. Continuing to encourage behavioral activation. Petitioned for 304 status with hearing scheduled for tomorrow given ongoing symptom burden and need for ongoing treatment. Remains on lovenox for DVT prophylaxis. Continue with Emsam patch. 02/24/21--Remains isolative and will not engage verbally. Encouragingly is attending slightly more to some of his ADLs, will continue with behavioral plan in hopes to continue encouraging behavioral activation although food does not seem to be a good motivator/reward for him. Will continue to think about other possible motivators for him to help encourage increased activity, po intake and engagement with therapeutic milieu. No signs of HTN or other side effects from MAOI at this point. 02/23/21--Continues to demonstrate neurovegetative symptoms of depression, remaining in bed most of the day but sometimes more engagement in the evenings. Will implement behavioral plan to encourage behavioral activation to treat neurovegetative symptoms in conjunction with Emsam as well as to encourage increased participation with ADLs. Nursing to provide him with tools to help him eat and promote good hygiene (brining in meals, supplies to wash up) and then if he does this independently will bring in ice cream or chips as reward to see if this helps with activation and increased po intake. 02/22/21--neurologic work up with EEG and brain MRI unremarkable, continue Emsam trial. 02/21/21--complex differential--depression with psychotic features in a patient with bipolar disorder most likely, certainly not typcial catatonia. No hx of hyperphagia or hypersexuality known that would suggest Kleine-Hess syndrome. Wi ll proceed with Emsam patch 6 mg trial as only means to administer antidepressant. Will check with an ECT facility to determine if can treat patient if pursue a court order (will await emsam trial first). MRI brain (patient will need various x rays first as can't answer screening questions, no hx of pacemaker on chart). bedside EEG to rule out status epilepticus. 02/19/21--non-formulary request for Emsam patch. Hasn't taken antidepressants for at least 6 weeks. Would reconsider current med doses when this becomes available. without antidepressant he will continue to decompensate medically and is at significant risk of further decompensation. 02/17/21--lytes, Bun/Cr improved; given sleep phase shift desirable to shift antipsychotic to pm meal with IM Zyprexa for refusal. Bedside EEG likely poor quality/low yeild but consider if no improvement. 02/16/21--Reviewed care by Dr. Garces in italics. will d/c IM Ativan in favor of Zyprexa IM for failure to take Latuda. Does take Lorazepam prn PO, adjust dose and frequency and monitor use. Will repeat labs and PO intake so variable and hard to track. 02/09/2021--admitted to [facility]. Ativan 2mg SL TID ordered. Track Is&Os. Vitals BID. 02/10/2021--continue with ativan 2mg TID SL. Showing significant improving in catatonic symptoms since ativan trial last night. If he continues to walk around no need for DVT prophylaxis. Will consider if 302 needs to be converted to 303 based on progress today. 02/11/2021--continue with scheduled ativan. Less engagement today but still eating and drinking. Plan for likely 303 given his inability/reluctance to engage in treatment. Reviewed outside records. 02/12/2021--continues to refuse ativan today and won't engage with anyone nor leave his bed except to use the bathroom and to eat at night. Given some movement in the evening and to the bathroom he doesn't require DVT prophylaxis at this time but this remains a concern should he clinically worsen and will continue to monitor his nutritional and medical status closely. 02/13/2021--placed on 303 status due to ongoing decompensation due to catatonia including refusal of medication, not eating, not drinking, not communicating with anyone and lying in bed all day. Once catatonia begins to improve with treatment will aim to start latuda which helped previously. [place] to require medications over objection for ativan to treat catatonia. If catatonia does not respond quickly to ativan then will consider if DVT prophylaxis should be initiated. 02/14/2021--no significant change in behaviors with additional of scheduled ativa n 2 mg BID as medication over objection. Given concern for skin breakdown consult was placed for wound nurse. Given concern for possible DVT and after discussion with hospitalist will begin lovenox 40mg subQ daily. David was able to vocalize consent for this as he remains mute and unable/unwilling to engage but explained the risks, benefits, alternatives and rationale for lovenox and that we will be offering this to him. 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 02/15/2021--Have ruled out catatonia given inconsistent response to ativan trial, multiple observed examples of volitional movement immediately following periods of patient lying in bed and mute. Subsequent catatonia scales have been negative and patient feels that his symptoms represent withdrawn features of anxiety and depression. Given bipolar depression with neurovegetative features will start latuda. Encouragingly he is eating more and drinking more and got out of bed twice last night. Risk Factors Assessment Male: Yes : Yes Do You Have Access To A Gun?: No (in supportive living enviornment, pt unable to answer ) Mental Health Diagnoses: Yes Previous Psychiatric Hospitalization: Yes Protective Factors Assessment Employed: No Interval History Identifying Information 40 yo man with history of catatonia, depression, possible BPAD vs schizophrenia admitted due to concern for catatonia and decompensation with failure of self- care at [facility]. Admitted on 302, now 304. Chief Complaint "I'd like to stop the lovenox". Review of Systems Sleep Information Total Hours of Sleep: 4.5 Sleep Comments: pt on q-15 minute checks Meal Information Percent Meal Consumed - Breakfast: 0 Percent Meal Consumed - Lunch: 100 Percent Meal Consumed - Dinner: 50 Nutrition Comment: Pt ate dinner in his room but he came out and got it himself. Subjective Subjective Patient was seen & assessed and interval progress reviewed with treatment team nursing and social work. Fell yesterday, didn't hit his head and denied feeling dizzy at that time; today denies that he fell. Continued to have low BP last night and refused vitals this morning. Was out of his room yesterday afternoon eating snacks and then lunch in the main room. He didn't sleep well last night because he got up three times for snacks and water. He did ask staff about how often he needed to move around so that lovenox could be stopped. Today David is lying in bed with a blanket over his head but speaks with me from under the blanket. He reports the ativan seems to "help me talk" and that he thinks his depression and withdrawan symptoms are getting "a little better". He notes he has been getting out of bed more and would like to stop the lovenox. He asks about having visitors but then declines to communicate anymore. Physical Exam Psychiatric Orientation: alert and oriented x 3 Apperance: + disheveled (under a blanket ) Eye Contact: + poor eye contact Motor Behavior: no abnormal motor movements Speech: normal rate/rhythm/volume of speech unable to assess Mood: + depressed mood Thought Process: goal directed thought process Thought Content: reality based without delusions Suicidal Thoughts: denies suicidal thoughts Homicidal Thoughts: denies homicidal thoughts Hallucinations: no auditory hallucinations and no visual hallucinations Cognition: recent memory grossly intact, remote memory grossly intact, attention grossly intact and language grossly intact Estimated Intelligence: consistent with education level Insight: + limited insight Judgement: + limited judgement Vital Signs (Past 24 Hours) Last Vital Signs Temp 37.2 C 03/09/21 20:09 Pulse 94 H 03/09/21 22:51 Resp 16 03/09/21 22:51 BP 94/68 L 03/09/21 22:51 Pulse Ox 96 03/08/21 19:31 Results & Data ([facility]) Current Inpatient Medications Current Inpatient Medications: Current Inpatient Medications Acetaminophen (Acetaminophen 325 Mg Tab) 650 mg PO Q4H PRN PRN Reason: Headache or Minor Fever Stop: 03/11/21 02:03 Last Admin: 02/15/21 18:44 Dose: 650 mg Documented by: Al Hydrox/Mg Hydrox/Simethicone (Aluminum/Magnesium Susp 30 Ml Udc) 30 ml PO Q4H PRN PRN Reason: GI Upset Stop: 03/11/21 02:03 Bismuth Subsalicylate (Bismuth Subsalicylate Liqd 236 Ml) 15 ml PO PRN PRN PRN Reason: Loose Stool Stop: 03/11/21 02:03 Enoxaparin Sodium (Enoxaparin Inj 40 Mg/0.4 Ml Syr) 40 mg SQ DAILYBD OG Stop: 04/06/21 17:14 Last Admin: 03/09/21 17:12 Dose: 40 mg Documented by: Hydroxyzine HCl (Hydroxyzine Hcl 25 Mg Tab) 50 mg PO HSZ PRN PRN Reason: Insomnia Stop: 03/11/21 02:03 Hydroxyzine HCl (Hydroxyzine Hcl 25 Mg Tab) 25 mg PO Q4H PRN PRN Reason: Anxiety Stop: 03/11/21 02:03 Lorazepam (Lorazepam 1 Mg Tab) 1 mg PO Q6 PRN PRN Reason: Anxiety/Agitation Stop: 03/15/21 22:23 Lorazepam (Lorazepam 1 Mg Tab) 2 mg PO BIDM OG Stop: 04/07/21 09:29 Last Admin: 03/09/21 17:13 Dose: 2 mg Documented by: Lorazepam (Lorazepam 2 Mg/Ml Vial (Im Use)) 2 mg IM BIDM PRN PRN Reason: for refusal of each PO dose Stop: 04/06/21 08:59 Last Admin: 03/09/21 09:22 Dose: 2 mg Documented by: Magnesium Hydroxide (Magnesium Hydroxide Susp 30 Ml Udc) 30 ml PO DAILY PRN PRN Reason: Constipation Stop: 03/11/21 02:03 Miscellaneous (Remove Patch Selegiline (Emsam)) 1 ea N/A Q24H OG Stop: 03/24/21 08:58 Last Admin: 03/09/21 09:14 Dose: 1 ea Documented by: Selegiline (Selegiline 6 Mg/24hr Tdsy) 6 mg TD DAILY GO Stop: 03/23/21 08:59 Last Admin: 03/09/21 09:14 Dose: 6 mg Documented by: Sodium Chloride (Sodium Chloride 0.65% Na Soln 45 Ml ([place])) 1 - 2 sprays NA PRN PRN PRN Reason: Nasal Dryness/Congestion Stop: 03/11/21 02:03 Mental Health & Subst Abuse Tx Psychiatrist Name of Psychiatrist: Oniel Negron Psychiatrist's Date of Appointment with Psychiatrist: 03/13/21 Time of Appointment with Psychiatrist: 9:20am Psychiatric Appointment Comment: Zoom *is on waiting list for appt. sooner Therapist Name of Therapist: Unknown Watch Leader Name of Watch Leader: Angel Johns Post Discharge Appointments Primary Care Physician Name Of Family Doctor: Unknown
[2021-03-10] MEDS: SELEGILINE 6 MG/24 HR TD SCH (09:38)
[2021-03-10] MEDS: [UNRECOGNIZED DRUG - REMARK] SCH (09:41)
[2021-03-10] MEDS ORDERED: LORazepam 2 MG/ML VIAL (IM USE) IM PRN (14:29)
[2021-03-10] MEDS: LORazepam 1 MG TAB PO SCH (17:26)
[2021-03-11] MEDS: [UNRECOGNIZED DRUG - REMARK] SCH (09:28)
[2021-03-11] MEDS: SELEGILINE 6 MG/24 HR TD SCH (09:28)
[2021-03-11] MEDS: LORazepam 1 MG TAB PO SCH ×2 (09:28→17:28)
[2021-03-11] MEDS ORDERED: hydrOXYzine HCl 25 MG TAB PO PRN ×2 (10:28)
[2021-03-11] MEDS ORDERED: BISMUTH SUBSALICYLATE LIQD 236 ML PO PRN (10:28)
[2021-03-11] MEDS ORDERED: ACETAMINOPHEN 325 MG TAB PO PRN (10:28)
[2021-03-11] MEDS ORDERED: ALUMINUM/MAGNESIUM SUSP 30 ML UDC PO PRN (10:28)
[2021-03-11] MEDS ORDERED: SODIUM CHLORIDE 0.65% NA SOLN 45 ML (OCEAN) PRN (10:28)
[2021-03-11] MEDS ORDERED: MAGNESIUM HYDROXIDE SUSP 30 ML UDC PO PRN (10:28)
--- NOTE | 2021-03-11 12:51 | Psychiatric Progress Note ---
Date of Service March 11, 2021 Impression / Recommendations Impression The patient is a 40 year old with a history of schizophrenia vs BPAD, and depression who was admitted for failure of self-care and worsening decompensation. The patient is deemed unstable and requires psychiatric h ospitalization for diagnostic clarification, safety and stabilization, medication management and development of further coping skills. Initially focussed on Ativan dosing for catatonia but no consistent response to meds over objection. Patient seemed worse on Zyprexa, very poor PO. Started Emsam (MAOI patch on 02/21/21). Will focus on medication over objection and readdress possible ECT or antidepressant when improved. 304 status granted. 03/11/21: communicated briefly today, continuing to show slow progress in terms of eating more, moving around more during the day and engaging more frequently and consistently (1) Bipolar disorder with depression: 03/11/21: Continue with ativan 1 mg BID po, canceled IM as he is agreeing to voluntary po. Given steady improvement over the last 1 week consistent with expected timeline for symptom improvement from Emsam patch he may no longer need longer term care option if improvement persists at this rate. If progress stalls or regression occurs then will reconsider if longer term option for treatment is required. 03/10/21: Reduce ativan to 1 mg BID due to dizziness, low BP and possible fall yesterday. Will discontinue lovenox per his request and since he is now consistently moving around throughout the day and at night, discussed risk of blood clots if he doesn't continue to move around and ambulate frequently which he vocalized understanding of and agreement with. Given improvement in nutritional intake will hold off on rechecking labwork for now, will get repeat labs in 1 week on 03/14. 03/09/21: Reviewed interim progress. Continue Emsam patch and ativan 2mg BID trial-will monitor for excessive sedation. 03/08/21: Ativan 2 mg BID trial. 03/07/21: patient seen by neurology, appreciate input, seems severe vegetative symptoms due to depression though last few doses of Ativan have been more effective than previous. Continue Ativan 1 mg po BID (IM for refusal). Attempt to replete K with powder dissolved in juice. 03/04/21: will explore personal halfway as concerns he will not improve to point he can make meals/meet requirements to return to [facility] during this stay. 03/03/21--continue same. Cannot attempt coadmin with stimulant trial for hypersomnia as contraindicated with MAOI. No medical decompensation that would necessitate referral to medical or seeking court order for ECT. At minimum behaviors are challenging but more appropriate when willing to interact with staff. Need to consider longer term care options given slow progression. 03/02/21--interim care reviewed. Continue EMSAM and Lovenox injection. 03/01/21--Day 9 of Emsam patch. Continuing with behavioral plan to encourage behavioral activation-he was provided with plan with goals of having him come out of his room to eat meals, cooperate with repositioning, stand up when his sheets are changed/or if he prefers to stay in bed until the evening then clean sheets can be provided for him to put on the bed or request help putting on the bed in the evening, and continue independently voiding in his bedside urinal, shower can be started for him but he should be encouraged to get into the shower on his own, encourage him to address basic hygiene by continuing to provide him with easy access to his toothbrush, shampoo, etc. 02/28/21--Day 8 of Emsam patch. Now seeing new pattern of daily food intake wh ich is encouraging. Continues to present with regressed behaviors and refusal to interact during the day. 02/27/21--Continue with Emsam patch. Getting out of bed more in the evenings and eating more. Lack of engagement during the day was volitional-pulling blanket over his head after he saw me enter his room. Also becoming more irritable with staff when he is encouraged to do more on his own for behavioral activation. 02/26/21-Continue with Emsam patch. 304 status granted. Ate last night and interacted with staff but no engagement today. 02/25/21--Continues to demonstrate severe depression with neurovegetative symptoms with no engagement with staff. Behavioral plan challenged by finding a reward/incentive that he enjoys. Continuing to encourage behavioral activation. Petitioned for 304 status with hearing scheduled for tomorrow given ongoing symptom burden and need for ongoing treatment. Remains on lovenox for DVT prophylaxis. Continue with Emsam patch. 02/24/21--Remains isolative and will not engage verbally. Encouragingly is attending slightly more to some of his ADLs, will continue with behavioral plan in hopes to continue encouraging behavioral activation although food does not seem to be a good motivator/reward for him. Will continue to think about other possible motivators for him to help encourage increased activity, po intake and engagement with therapeutic milieu. No signs of HTN or other side effects from MAOI at this point. 02/23/21--Continues to demonstrate neurovegetative symptoms of depression, remaining in bed most of the day but sometimes more engagement in the evenings. Will implement behavioral plan to encourage behavioral activation to treat neurovegetative symptoms in conjunction with Emsam as well as to encourage increased participation with ADLs. Nursing to provide him with tools to help him eat and promote good hygiene (brining in meals, supplies to wash up) and then if he does this independently will bring in ice cream or chips as reward to see if this helps with activation and increased po intake. 02/22/21--neurologic work up with EEG and brain MRI unremarkable, continue Emsam trial. 02/21/21--complex differential--depression with psychotic features in a patient with bipolar disorder most likely, certainly not typcial catatonia. No hx of hyperphagia or hypersexuality known that would suggest Kleine-Hess syndrome. Will proceed with Emsam patch 6 mg trial as only means to administer antidepressant. Will check with an ECT facility to determine if can treat patient if pursue a court order (will await emsam trial first). MRI brain (patient will need various x rays first as can't answer screening questions, no hx of pacemaker on chart). bedside EEG to rule out status epilepticus. 02/19/21--non-formulary request for Emsam patch. Hasn't taken antidepressants for at least 6 weeks. Would reconsider current med doses when this becomes available. without antidepressant he will continue to decompensate medically and is at significant risk of further decompensation. 02/17/21--lytes, Bun/Cr improved; given sleep phase shift desirable to shift antipsychotic to pm meal with IM Zyprexa for refusal. Bedside EEG likely poor quality/low yeild but consider if no improvement. 02/16/21--Reviewed care by Dr. Garces in italics. will d/c IM Ativan in favor of Zyprexa IM for failure to take Latuda. Does take Lorazepam prn PO, adjust dose and frequency and monitor use. Will repeat labs and PO intake so variable and hard to track. 02/09/2021--admitted to [facility]. Ativan 2mg SL TID ordered. Track Is&Os. Vitals BID. 02/10/2021--continue with ativan 2mg TID SL. Showing significant improving in catatonic symptoms since ativan trial last night. If he continues to walk around no need for DVT prophylaxis. Will consider if 302 needs to be converted to 303 based on progress today. 02/11/2021--continue with scheduled ativan. Less engagement today but still eating and drinking. Plan for likely 303 given his inability/reluctance to engage in treatment. Reviewed outside records. 02/12/2021--continues to refuse ativan today and won't engage with anyone nor leave his bed except to use the bathroom and to eat at night. Given some movement in the evening and to the bathroom he doesn't require DVT prophylaxis at this time but this remains a concern should he clinically worsen and will continue to monitor his nutritional and medical status closely. 02/13/2021--placed on 303 status due to ongoing decompensation due to catatonia including refusal of medication, not eating, not drinking, not communicating wi th anyone and lying in bed all day. Once catatonia begins to improve with treatment will aim to start latuda which helped previously. [facility] to require medications over objection for ativan to treat catatonia. If catatonia does not respond quickly to ativan then will consider if DVT prophylaxis should be initiated. 02/14/2021--no significant change in behaviors with additional of scheduled ativan 2 mg BID as medication over objection. Given concern for skin breakdown consult was placed for wound nurse. Given concern for possible DVT and after discussion with hospitalist will begin lovenox 40mg subQ daily. David was able to vocalize consent for this as he remains mute and unable/unwilling to engage but explained the risks, benefits, alternatives and rationale for lovenox and that we will be offering this to him. 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 02/15/2021--Have ruled out catatonia given inconsistent response to ativan trial, multiple observed examples of volitional movement immediately following periods of patient lying in bed and mute. Subsequent catatonia scales have been negative and patient feels that his symptoms represent withdrawn features of anxiety and depression. Given bipolar depression with neurovegetative features will start latuda. Encouragingly he is eating more and drinking more and got out of bed twice last night. Risk Factors Assessment Male: Yes : Yes Do You Have Access To A Gun?: No (in supportive living enviornment, pt unable to answer ) Mental Health Diagnoses: Yes Previous Psychiatric Hospitalization: Yes Protective Factors Assessment Employed: No Interval History Identifying Information 40 yo man with history of catatonia, depression, possible BPAD vs schizophrenia admitted due to concern for catatonia and decompensation with failure of self- care at [facility]. Admitted on 302, now 304. Chief Complaint "ok". Review of Systems Sleep Information Total Hours of Sleep: 8.25 Sleep Comments: pt appeared to sleep 1.25 hrs during evening shift. pt on q-15 minute checks Meal Information Percent Meal Consumed - Breakfast: 100 Percent Meal Consumed - Lunch: 100 Percent Meal Consumed - Dinner: 50 Nutrition Comment: The patient did not come out to eat breakfast until hours later. Subjective Subjective Patient was seen & assessed and interval progress reviewed with treatment team nursing and social work. Taking his medications voluntarily, getting out of bed multiple times per day to eat, using his bathroom and interacting with staff more consistently. Today he got up for a late breakfast. He did not communicate with me this morning but after lunch he communicated briefly with short responses from under the blanket while lying in his bed. He denied any medication side effects. Stated he is liking the food and eating well. Denies any physical complaints. Then would not respond to any further questions. Physical Exam Psychiatric Orientation: alert and oriented x 3; + uncooperative Apperance: + disheveled (under a blanket ) Eye Contact: + poor eye contact Motor Behavior: no abnormal motor movements and + psychomotor retardation Speech: normal rate/rhythm/volume of speech Affect: + flat affect Mood: + depressed mood Thought Process: goal directed thought process Thought Content: reality based without delusions Cognition: recent memory grossly intact, remote memory grossly intact and language grossly intact; + attention not intact Estimated Intelligence: consistent with education level Insight: + impaired insight Judgement: + impaired judgement Vital Signs (Past 24 Hours) Last Vital Signs Temp 36.6 C 03/10/21 20:51 Pulse 62 03/11/21 06:30 Resp 16 03/11/21 06:30 BP 120/75 03/11/21 06:30 Pulse Ox 97 03/10/21 20:51 Results & Data ([facility]) Current Inpatient Medications Current Inpatient Medications: Current Inpatient Medications Acetaminophen (Acetaminophen 325 Mg Tab) 650 mg PO Q4H PRN PRN Reason: Headache or Minor Fever Stop: 04/10/21 10:27 Al Hydrox/Mg Hydrox/Simethicone (Aluminum/Magnesium Susp 30 Ml Udc) 30 ml PO Q4H PRN PRN Reason: GI Upset Stop: 04/10/21 10:27 Bismuth Subsalicylate (Bismuth Subsalicylate Liqd 236 Ml) 15 ml PO PRN PRN PRN Reason: Loose Stool Stop: 04/10/21 10:27 Hydroxyzine HCl (Hydroxyzine Hcl 25 Mg Tab) 50 mg PO HSZ PRN PRN Reason: Insomnia Stop: 04/10/21 10:27 Hydroxyzine HCl (Hydroxyzine Hcl 25 Mg Tab) 25 mg PO Q4H PRN PRN Reason: Anxiety Stop: 04/10/21 10:27 Lorazepam (Lorazepam 1 Mg Tab) 1 mg PO Q6 PRN PRN Reason: Anxiety/Agitation Stop: 04/10/21 08:14 Lorazepam (Lorazepam 1 Mg Tab) 1 mg PO BIDM OG Stop: 04/09/21 17:44 Last Admin: 03/11/21 09:28 Dose: 1 mg Documented by: Magnesium Hydroxide (Magnesium Hydroxide Susp 30 Ml Udc) 30 ml PO DAILY PRN PRN Reason: Constipation Stop: 04/10/21 10:27 Miscellaneous (Remove Patch Selegiline (Emsam)) 1 ea N/A Q24H OG Stop: 04/10/21 08:58 Last Admin: 03/11/21 09:28 Dose: 1 ea Documented by: Selegiline (Selegiline 6 Mg/24hr Tdsy) 6 mg TD DAILY OG Stop: 04/10/21 08:59 Last Admin: 03/11/21 09:28 Dose: 6 mg Documented by: Sodium Chloride (Sodium Chloride 0.65% Na Soln 45 Ml ([place])) 1 - 2 sprays NA PRN PRN PRN Reason: Nasal Dryness/Congestion Stop: 04/10/21 10:27 Mental Health & Subst Abuse Tx Psychiatrist Name of Psychiatrist: Oniel Negron Psychiatrist's Date of Appointment with Psychiatrist: 03/13/21 Time of Appointment with Psychiatrist: 9:20am Psychiatric Appointment Comment: Zoom *is on waiting list for appt. sooner Therapist Name of Therapist: Unknown Clam Treader Name of Clam Treader: Angel Johns Post Discharge Appointments Primary Care Physician Name Of Family Doctor: Unknown
[2021-03-12] MEDS: [UNRECOGNIZED DRUG - REMARK] SCH (08:21)
[2021-03-12] MEDS: LORazepam 1 MG TAB PO SCH ×2 (08:22→17:32)
[2021-03-12] MEDS: SELEGILINE 6 MG/24 HR TD SCH (08:22)
--- NOTE | 2021-03-12 08:43 | Psychiatric Progress Note ---
Date of Service March 12, 2021 Impression / Recommendations Impression The patient is a 40 year old with a history of schizophrenia vs BPAD, and depression who was admitted for failure of self-care and worsening decompensation. The patient is deemed unstable and requires psychiatric h ospitalization for diagnostic clarification, safety and stabilization, medication management and development of further coping skills. Initially focussed on Ativan dosing for catatonia but no consistent response to meds over objection. Patient seemed worse on Zyprexa, very poor PO. Started Emsam (MAOI patch on 02/21/21). Will focus on medication over objection and readdress possible ECT or antidepressant when improved. 304 status granted. 03/12/21: communicated briefly today, out of his bed the earliest during the day of his stay so far, Plan: discussed options with treatment team for having his case management assistant from his alf come visit later this week (1) Bipolar disorder with depression: 03/12/21: Continue with current medications. Discussed with treatment team having his alf supports come for a visit and they will visit on . Reviewed his interactions with staff during evening hours/overnight in the chart and continues to show progress with engagement. 03/11/21: Continue with ativan 1 mg BID po, canceled IM as he is agreeing to voluntary po. Given steady improvement over the last 1 week consistent with expected timeline for symptom improvement from Emsam patch he may no longer need longer term care option if improvement persists at this rate. If progress stalls or regression occurs then will reconsider if longer term option for treatment is required. 03/10/21: Reduce ativan to 1 mg BID due to dizziness, low BP and possible fall yesterday. Will discontinue lovenox per his request and since he is now consist ently moving around throughout the day and at night, discussed risk of blood clots if he doesn't continue to move around and ambulate frequently which he vocalized understanding of and agreement with. Given improvement in nutritional intake will hold off on rechecking labwork for now, will get repeat labs in 1 week on 03/14. 03/09/21: Reviewed interim progress. Continue Emsam patch and ativan 2mg BID trial-will monitor for excessive sedation. 03/08/21: Ativan 2 mg BID trial. 03/07/21: patient seen by neurology, appreciate input, seems severe vegetative symptoms due to depression though last few doses of Ativan have been more effective than previous. Continue Ativan 1 mg po BID (IM for refusal). Attempt to replete K with powder dissolved in juice. 03/04/21: will explore personal custodial as concerns he will not improve to point he can make meals/meet requirements to return to [facility] during this stay. 03/03/21--continue same. Cannot attempt coadmin with stimulant trial for hypersomnia as contraindicated with MAOI. No medical decompensation that would necessitate referral to medical or seeking court order for ECT. At minimum behaviors are challenging but more appropriate when willing to interact with staff. Need to consider longer term care options given slow progression. 03/02/21--interim care reviewed. Continue EMSAM and Lovenox injection. 03/01/21--Day 9 of Emsam patch. Continuing with behavioral plan to encourage behavioral activation-he was provided with plan with goals of having him come out of his room to eat meals, cooperate with repositioning, stand up when his sheets are changed/or if he prefers to stay in bed until the evening then clean sheets can be provided for him to put on the bed or request help putting on the bed in the evening, and continue independently voiding in his bedside urinal, shower can be started for him but he should be encouraged to get into the shower on his own, encourage him to address basic hygiene by continuing to provide him with easy access to his toothbrush, shampoo, etc. 02/28/21--Day 8 of Emsam patch. Now seeing new pattern of daily food intake which is encouraging. Continues to present with regressed behaviors and refusal to interact during the day. 02/27/21--Continue with Emsam patch. Getting out of bed more in the evenings and eating more. Lack of engagement during the day was volitional-pulling blanket over his head after he saw me enter his room. Also becoming more irritable with staff when he is encouraged to do more on his own for behavioral activation. 02/26/21-Continue with Emsam patch. 304 status granted. Ate last night and interacted with staff but no engagement today. 02/25/21--Continues to demonstrate severe depression with neurovegetative symptoms with no engagement with staff. Behavioral plan challenged by finding a reward/incentive that he enjoys. Continuing to encourage behavioral activation. Petitioned for 304 status with hearing scheduled for tomorrow given ongoing symptom burden and need for ongoing treatment. Remains on lovenox for DVT prophylaxis. Continue with Emsam patch. 02/24/21--Remains isolative and will not engage verbally. Encouragingly is attending slightly more to some of his ADLs, will continue with behavioral plan in hopes to continue encouraging behavioral activation although food does not seem to be a good motivator/reward for him. Will continue to think about other possible motivators for him to help encourage increased activity, po intake and engagement with therapeutic milieu. No signs of HTN or other side effects from MAOI at this point. 02/23/21--Continues to demonstrate neurovegetative symptoms of depression, remaining in bed most of the day but sometimes more engagement in the evenings. Will implement behavioral plan to encourage behavioral activation to treat neurovegetative symptoms in conjunction with Emsam as well as to encourage increased participation with ADLs. Nursing to provide him with tools to help him eat and promote good hygiene (brining in meals, supplies to wash up) and then if he does this independently will bring in ice cream or chips as reward to see if this helps with activation and increased po intake. 02/22/21--neurologic work up with EEG and brain MRI unremarkable, continue Emsam trial. 02/21/21--complex differential--depression with psychotic features in a patient with bipolar disorder most likely, certainly not typcial catatonia. No hx of hyperphagia or hypersexuality known that would suggest Kleine-Hess syndrome. Will proceed with Emsam patch 6 mg trial as only means to administer an tidepressant. Will check with an ECT facility to determine if can treat patient if pursue a court order (will await emsam trial first). MRI brain (patient will need various x rays first as can't answer screening questions, no hx of pacemaker on chart). bedside EEG to rule out status epilepticus. 02/19/21--non-formulary request for Emsam patch. Hasn't taken antidepressants for at least 6 weeks. Would reconsider current med doses when this becomes available. without antidepressant he will continue to decompensate medically and is at significant risk of further decompensation. 02/17/21--lytes, Bun/Cr improved; given sleep phase shift desirable to shift antipsychotic to pm meal with IM Zyprexa for refusal. Bedside EEG likely poor quality/low yeild but consider if no improvement. 02/16/21--Reviewed care by Dr. Garces in italics. will d/c IM Ativan in favor of Zyprexa IM for failure to take Latuda. Does take Lorazepam prn PO, adjust dose and frequency and monitor use. Will repeat labs and PO intake so variable and hard to track. 02/09/2021--admitted to [facility]. Ativan 2mg SL TID ordered. Track Is&Os. Vitals BID. 02/10/2021--continue with ativan 2mg TID SL. Showing significant improving in catatonic symptoms since ativan trial last night. If he continues to walk around no need for DVT prophylaxis. Will consider if 302 needs to be converted to 303 based on progress today. 02/11/2021--continue with scheduled ativan. Less engagement today but still eating and drinking. Plan for likely 303 given his inability/reluctance to engage in treatment. Reviewed outside records. 02/12/2021--continues to refuse ativan today and won't engage with anyone nor leave his bed except to use the bathroom and to eat at night. Given some movement in the evening and to the bathroom he doesn't require DVT prophylaxis at this time but this remains a concern should he clinically worsen and will continue to monitor his nutritional and medical status closely. 02/13/2021--placed on 303 status due to ongoing decompensation due to catatonia including refusal of medication, not eating, not drinking, not communicating with anyone and lying in bed all day. Once catatonia begins to improve with treatment will aim to start latuda which helped previously. Justice to require medications over objection for ativan to treat catatonia. If catatonia does not respond quickly to ativan then will consider if DVT prophylaxis should be initiated. 02/14/2021--no significant change in behaviors with additional of scheduled ativan 2 mg BID as medication over objection. Given concern for skin breakdown consult was placed for wound nurse. Given concern for possible DVT and after discussion with hospitalist will begin lovenox 40mg subQ daily. David was able to vocalize consent for this as he remains mute and unable/unwilling to engage but explained the risks, benefits, alternatives and rationale for lovenox and that we will be offering this to him. 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 02/15/2021--Have ruled out catatonia given inconsistent response to ativan trial, multiple observed examples of volitional movement immediately following periods of patient lying in bed and mute. Subsequent catatonia scales have been negative and patient feels that his symptoms represent withdrawn features of anxiety and depression. Given bipolar depression with neurovegetative features will start latuda. Encouragingly he is eating more and drinking more and got out of bed twice last night. Risk Factors Assessment Male: Yes : Yes Do You Have Access To A Gun?: No (in supportive living enviornment, pt unable to answer ) Mental Health Diagnoses: Yes Previous Psychiatric Hospitalization: Yes Protective Factors Assessment Employed: No Interval History Identifying Information 40 yo man with history of catatonia, depression, possible BPAD vs schizophrenia admitted due to concern for catatonia and decompensation with failure of self- care at [facility]. Admitted on 302, now 304. Chief Complaint "hi". Review of Systems Sleep Information Total Hours of Sleep: 7 Sleep Comments: pt on q-15 minute checks Meal Information Percent Meal Consumed - Breakfast: 100 Percent Meal Consumed - Lunch: 100 Percent Meal Consumed - Dinner: 50 Nutrition Comment: The patient did not come out to eat breakfast until hours later. Subjective Subjective Patient was seen & assessed and interval progress reviewed with treatment team nursing and social work. Last night he talked with staff about his treatment plan and was eating pizza. Also made a few statements to staff of believing that his legs were broken by staff while he's been hospitalized. This morning was walking laps at 10am and responded "hi" after I waved to him. This afternoon he went back to bed and did not participate in an interview/would not engage. Physical Exam Psychiatric Orientation: alert and oriented x 3 Apperance: + disheveled (under a blanket ) Eye Contact: + fair eye contact Motor Behavior: no abnormal motor movements Speech: normal rate/rhythm/volume of speech Affect: + flat affect Mood: + depressed mood Thought Process: + thought blocking Thought Content: + paranoid Hallucinations: no auditory hallucinations and no visual hallucinations Cognition: recent memory grossly intact, remote memory grossly intact and language grossly intact Estimated Intelligence: consistent with education level Insight: + limited insight Judgement: + limited judgement Vital Signs (Past 24 Hours) Last Vital Signs Temp 36.3 C L 03/11/21 22:00 Pulse 71 03/12/21 07:01 Resp 16 03/12/21 07:01 BP 111/72 03/12/21 07:01 Pulse Ox 96 03/11/21 22:00 Results & Data ([facility]) Current Inpatient Medications Current Inpatient Medications: Current Inpatient Medications Acetaminophen (Acetaminophen 325 Mg Tab) 650 mg PO Q4H PRN PRN Reason: Headache or Minor Fever Stop: 04/10/21 10:27 Al Hydrox/Mg Hydrox/Simethicone (Aluminum/Magnesium Susp 30 Ml Udc) 30 ml PO Q4H PRN PRN Reason: GI Upset Stop: 04/10/21 10:27 Bismuth Subsalicylate (Bismuth Subsalicylate Liqd 236 Ml) 15 ml PO PRN PRN PRN Reason: Loose Stool Stop: 04/10/21 10:27 Hydroxyzine HCl (Hydroxyzine Hcl 25 Mg Tab) 50 mg PO HSZ PRN PRN Reason: Insomnia Stop: 04/10/21 10:27 Hydroxyzine HCl (Hydroxyzine Hcl 25 Mg Tab) 25 mg PO Q4H PRN PRN Reason: Anxiety Stop: 04/10/21 10:27 Lorazepam (Lorazepam 1 Mg Tab) 1 mg PO Q6 PRN PRN Reason: Anxiety/Agitation Stop: 04/10/21 08:14 Lorazepam (Lorazepam 1 Mg Tab) 1 mg PO BIDM OG Stop: 04/09/21 17:44 Last Admin: 03/12/21 08:22 Dose: 1 mg Documented by: Magnesium Hydroxide (Magnesium Hydroxide Susp 30 Ml Udc) 30 ml PO DAILY PRN PRN Reason: Constipation Stop: 04/10/21 10:27 Miscellaneous (Remove Patch Selegiline (Emsam)) 1 ea N/A Q24H OG Stop: 04/10/21 08:58 Last Admin: 03/12/21 08:21 Dose: 1 ea Documented by: Selegiline (Selegiline 6 Mg/24hr Tdsy) 6 mg TD DAILY OG Stop: 04/10/21 08:59 Last Admin: 03/12/21 08:22 Dose: 6 mg Documented by: Sodium Chloride (Sodium Chloride 0.65% Na Soln 45 Ml ([place])) 1 - 2 sprays NA PRN PRN PRN Reason: Nasal Dryness/Congestion Stop: 04/10/21 10:27 Mental Health & Subst Abuse Tx Psychiatrist Name of Psychiatrist: Oniel Negron Psychiatrist's Date of Appointment with Psychiatrist: 03/13/21 Time of Appointment with Psychiatrist: 9:20am Psychiatric Appointment Comment: Zoom *is on waiting list for appt. sooner Therapist Name of Therapist: Unknown Parking Station Attendant Name of Parking Station Attendant: Angel Johns Post Discharge Appointments Primary Care Physician Name Of Family Doctor: Unknown
[2021-03-13] MEDS: [UNRECOGNIZED DRUG - REMARK] SCH (08:38)
[2021-03-13] MEDS: SELEGILINE 6 MG/24 HR TD SCH (08:39)
[2021-03-13] MEDS: LORazepam 1 MG TAB PO SCH ×2 (08:39→16:49)
--- NOTE | 2021-03-13 14:20 | Psychiatric Progress Note ---
Date of Service March 13, 2021 Impression / Recommendations Impression The patient is a 40 year old with a history of schizophrenia vs BPAD, and depression who was admitted for failure of self-care and worsening decompensation. The patient is deemed unstable and requires psychiatric h ospitalization for diagnostic clarification, safety and stabilization, medication management and development of further coping skills. Initially focussed on Ativan dosing for catatonia but no consistent response to meds over objection. Patient seemed worse on Zyprexa, very poor PO. Started Emsam (MAOI patch on 02/21/21). Will focus on medication over objection and readdress possible ECT or antidepressant when improved. 304 status granted. 03/13/21: ongoing slow but stable improvement with engagement, movement, eating/drinking, using bathroom, Plan: reviewed medication side effects with him, discussed plan for labwork tomorrow morning to recheck electrolytes, reviewed previous labwork (1) Bipolar disorder with depression: 03/13/21: Continue with current medications. Supports from [employer] will visit tomorrow. Labwork CMP tomorrow morning to ensure correction of hypokalemia. 03/12/21: Continue with current medications. Discussed with treatment team having his halfway supports come for a visit and they will visit on . Reviewed his interactions with staff during evening hours/overnight in the chart and continues to show progress with engagement. 03/11/21: Continue with ativan 1 mg BID po, canceled IM as he is agreeing to voluntary po. Given steady improvement over the last 1 week consistent with expected timeline for symptom improvement from Emsam patch he may no longer need longer term care option if improvement persists at this rate. If progress stalls or regression occurs then will reconsider if longer term option for treatment is required. 03/10/21: Reduce ativan to 1 mg BID due to dizziness, low BP and possible fall yesterday. Will discontinue lovenox per his request and since he is now consistently moving around throughout the day and at night, discussed risk of blood clots if he doesn't continue to move around and ambulate frequently which he vocalized understanding of and agreement with. Given improvement in nutritional intake will hold off on rechecking labwork for now, will get repeat labs in 1 week on 03/14. 03/09/21: Reviewed interim progress. Continue Emsam patch and ativan 2mg BID t rial-will monitor for excessive sedation. 03/08/21: Ativan 2 mg BID trial. 03/07/21: patient seen by neurology, appreciate input, seems severe vegetative symptoms due to depression though last few doses of Ativan have been more effective than previous. Continue Ativan 1 mg po BID (IM for refusal). Attempt to replete K with powder dissolved in juice. 03/04/21: will explore personal shelter as concerns he will not improve to point he can make meals/meet requirements to return to [facility] during this stay. 03/03/21--continue same. Cannot attempt coadmin with stimulant trial for hypersomnia as contraindicated with MAOI. No medical decompensation that would necessitate referral to medical or seeking court order for ECT. At minimum behaviors are challenging but more appropriate when willing to interact with staff. Need to consider longer term care options given slow progression. 03/02/21--interim care reviewed. Continue EMSAM and Lovenox injection. 03/01/21--Day 9 of Emsam patch. Continuing with behavioral plan to encourage behavioral activation-he was provided with plan with goals of having him come out of his room to eat meals, cooperate with repositioning, stand up when his sheets are changed/or if he prefers to stay in bed until the evening then clean sheets can be provided for him to put on the bed or request help putting on the bed in the evening, and continue independently voiding in his bedside urinal, shower can be started for him but he should be encouraged to get into the shower on his own, encourage him to address basic hygiene by continuing to provide him with easy access to his toothbrush, shampoo, etc. 02/28/21--Day 8 of Emsam patch. Now seeing new pattern of daily food intake which is encouraging. Continues to present with regressed behaviors and refusal to interact during the day. 02/27/21--Continue with Emsam patch. Getting out of bed more in the evenings and eating more. Lack of engagement during the day was volitional-pulling blanket over his head after he saw me enter his room. Also becoming more irritable with staff when he is encouraged to do more on his own for behavioral activation. 02/26/21-Continue with Emsam patch. 304 status granted. Ate last night and interacted with staff but no engagement today. 02/25/21--Continues to demonstrate severe depression with neurovegetative symptoms with no engagement with staff. Behavioral plan challenged by finding a reward/incentive that he enjoys. Continuing to encourage behavioral activation. Petitioned for 304 status with hearing scheduled for tomorrow given ongoing symptom burden and need for ongoing treatment. Remains on lovenox for DVT prophylaxis. Continue with Emsam patch. 02/24/21--Remains isolative and will not engage verbally. Encouragingly is attending slightly more to some of his ADLs, will continue with behavioral plan in hopes to continue encouraging behavioral activation although food does not seem to be a good motivator/reward for him. Will continue to think about other possible motivators for him to help encourage increased activity, po intake and engagement with therapeutic milieu. No signs of HTN or other side effects from MAOI at this point. 02/23/21--Continues to demonstrate neurovegetative symptoms of depression, remaining in bed most of the day but sometimes more engagement in the evenings. Will implement behavioral plan to encourage behavioral activation to treat neurovegetative symptoms in conjunction with Emsam as well as to encourage increased participation with ADLs. Nursing to provide him with tools to help him eat and promote good hygiene (brining in meals, supplies to wash up) and then if he does this independently will bring in ice cream or chips as reward to see if this helps with activation and increased po intake. 02/22/21--neurologic work up with EEG and brain MRI unremarkable, continue Emsam trial. 02/21/21--complex differential--depression with psychotic features in a patient with bipolar disorder most likely, certainly not typcial catatonia. No hx of hyperphagia or hypersexuality known that would suggest Kleine-Hess syndrome. Will proceed with Emsam patch 6 mg trial as only means to administer antidepre ssant. Will check with an ECT facility to determine if can treat patient if pursue a court order (will await emsam trial first). MRI brain (patient will need various x rays first as can't answer screening questions, no hx of pacemaker on chart). bedside EEG to rule out status epilepticus. 02/19/21--non-formulary request for Emsam patch. Hasn't taken antidepressants for at least 6 weeks. Would reconsider current med doses when this becomes available. without antidepressant he will continue to decompensate medically and is at significant risk of further decompensation. 02/17/21--lytes, Bun/Cr improved; given sleep phase shift desirable to shift antipsychotic to pm meal with IM Zyprexa for refusal. Bedside EEG likely poor quality/low yeild but consider if no improvement. 02/16/21--Reviewed care by Dr. Garces in italics. will d/c IM Ativan in favor of Zyprexa IM for failure to take Latuda. Does take Lorazepam prn PO, adjust dose and frequency and monitor use. Will repeat labs and PO intake so variable and hard to track. 02/09/2021--admitted to [facility]. Ativan 2mg SL TID ordered. Track Is&Os. Vitals BID. 02/10/2021--continue with ativan 2mg TID SL. Showing significant improving in catatonic symptoms since ativan trial last night. If he continues to walk around no need for DVT prophylaxis. Will consider if 302 needs to be converted to 303 based on progress today. 02/11/2021--continue with scheduled ativan. Less engagement today but still eating and drinking. Plan for likely 303 given his inability/reluctance to engage in treatment. Reviewed outside records. 02/12/2021--continues to refuse ativan today and won't engage with anyone nor leave his bed except to use the bathroom and to eat at night. Given some movement in the evening and to the bathroom he doesn't require DVT prophylaxis at this time but this remains a concern should he clinically worsen and will continue to monitor his nutritional and medical status closely. 02/13/2021--placed on 303 status due to ongoing decompensation due to catatonia including refusal of medication, not eating, not drinking, not communicating with anyone and lying in bed all day. Once catatonia begins to improve with treatment will aim to start latuda which helped previously. [place] to require medications over objection for ativan to treat catatonia. If catatonia does not respond quickly to ativan then will consider if DVT prophylaxis should be initiated. 02/14/2021--no significant change in behaviors with additional of scheduled ativan 2 mg BID as medication over objection. Given concern for skin breakdown consult was placed for wound nurse. Given concern for possible DVT and after discussion with hospitalist will begin lovenox 40mg subQ daily. David was able to vocalize consent for this as he remains mute and unable/unwilling to engage but explained the risks, benefits, alternatives and rationale for lovenox and that we will be offering this to him. 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 02/15/2021--Have ruled out catatonia given inconsistent response to ativan trial, multiple observed examples of volitional movement immediately following periods of patient lying in bed and mute. Subsequent catatonia scales have been negative and patient feels that his symptoms represent withdrawn features of anxiety and depression. Given bipolar depression with neurovegetative features will start latuda. Encouragingly he is eating more and drinking more and got out of bed twice last night. Risk Factors Assessment Male: Yes : Yes Do You Have Access To A Gun?: No (in supportive living enviornment, pt unable to answer ) Mental Health Diagnoses: Yes Previous Psychiatric Hospitalization: Yes Protective Factors Assessment Employed: No Interval History Identifying Information 40 yo man with history of catatonia, depression, possible BPAD vs schizophrenia admitted due to concern for catatonia and decompensation with failure of self- care at [facility]. Admitted on 302, now 304. Chief Complaint "not sure I can get into it". Review of Systems Sleep Information Total Hours of Sleep: 6 Sleep Comments: pt on q-15 minute checks Meal Information Percent Meal Consumed - Breakfast: 50 Percent Meal Consumed - Lunch: 100 Percent Meal Consumed - Dinner: 0 Nutrition Comment: The patient did not come out to eat breakfast until hours later. Subjective Subjective Patient was seen & assessed and interval progress reviewed with treatment team nursing and social work. Was out of his room multiple times yesterday including in the evening. Eating most of his meals and drinking lots of fluids. Using the bathroom and walking to and from the dining and main room on the unit. Still spends most of his time in his bed when he's in his room. This morning speaks with me from under his blanket. States he feels unable to elaborate on any questions about his mood. States he isn't sure if he's having any side effects to his medication. We review common side effects from the ativan and Emsam patch and he denies any of these symptoms. He states he doesn't have any family he wants us to contact. Confirms that most of his family lives in [place]. Physical Exam Psychiatric Orientation: alert and oriented x 3 Apperance: + disheveled Eye Contact: + poor eye contact Motor Behavior: no abnormal motor movements Speech: normal rate/rhythm/volume of speech Affect: + flat affect Mood: + depressed mood Thought Process: + thought blocking Thought Content: reality based without delusions Suicidal Thoughts: denies suicidal thoughts Homicidal Thoughts: denies homicidal thoughts Hallucinations: no auditory hallucinations and no visual hallucinations Cognition: recent memory grossly intact, remote memory grossly intact and language grossly intact; + attention not intact Estimated Intelligence: consistent with education level Insight: + impaired insight Judgement: + impaired judgement Vital Signs (Past 24 Hours) Last Vital Signs Temp 36.3 C L 03/11/21 22:00 Pulse 78 03/13/21 07:02 Resp 16 03/13/21 07:02 BP 101/67 03/13/21 07:02 Pulse Ox 96 03/11/21 22:00 Results & Data ([facility]) Current Inpatient Medications Current Inpatient Medications: Current Inpatient Medications Acetaminophen (Acetaminophen 325 Mg Tab) 650 mg PO Q4H PRN PRN Reason: Headache or Minor Fever Stop: 04/10/21 10:27 Al Hydrox/Mg Hydrox/Simethicone (Aluminum/Magnesium Susp 30 Ml Udc) 30 ml PO Q4H PRN PRN Reason: GI Upset Stop: 04/10/21 10:27 Bismuth Subsalicylate (Bismuth Subsalicylate Liqd 236 Ml) 15 ml PO PRN PRN PRN Reason: Loose Stool Stop: 04/10/21 10:27 Hydroxyzine HCl (Hydroxyzine Hcl 25 Mg Tab) 50 mg PO HSZ PRN PRN Reason: Insomnia Stop: 04/10/21 10:27 Hydroxyzine HCl (Hydroxyzine Hcl 25 Mg Tab) 25 mg PO Q4H PRN PRN Reason: Anxiety Stop: 04/10/21 10:27 Lorazepam (Lorazepam 1 Mg Tab) 1 mg PO Q6 PRN PRN Reason: Anxiety/Agitation Stop: 04/10/21 08:14 Lorazepam (Lorazepam 1 Mg Tab) 1 mg PO BIDM OG Stop: 04/09/21 17:44 Last Admin: 03/13/21 08:39 Dose: 1 mg Documented by: Magnesium Hydroxide (Magnesium Hydroxide Susp 30 Ml Udc) 30 ml PO DAILY PRN PRN Reason: Constipation Stop: 04/10/21 10:27 Miscellaneous (Remove Patch Selegiline (Emsam)) 1 ea N/A Q24H OG Stop: 04/10/21 08:58 Last Admin: 03/13/21 08:38 Dose: 1 ea Documented by: Selegiline (Selegiline 6 Mg/24hr Tdsy) 6 mg TD DAILY OG Stop: 04/10/21 08:59 Last Admin: 03/13/21 08:39 Dose: 6 mg Documented by: Sodium Chloride (Sodium Chloride 0.65% Na Soln 45 Ml ([place])) 1 - 2 sprays NA PRN PRN PRN Reason: Nasal Dryness/Congestion Stop: 04/10/21 10:27 Mental Health & Subst Abuse Tx Psychiatrist Name of Psychiatrist: Oniel Negron Psychiatrist's Date of Appointment with Psychiatrist: 03/13/21 Time of Appointment with Psychiatrist: 9:20am Psychiatric Appointment Comment: Zoom *is on waiting list for appt. sooner Therapist Name of Therapist: Unknown Metaphysician Name of Metaphysician: Angel Johns Post Discharge Appointments Primary Care Physician Name Of Family Doctor: Unknown
[2021-03-14] MEDS: [UNRECOGNIZED DRUG - REMARK] SCH (08:51)
[2021-03-14] MEDS: SELEGILINE 6 MG/24 HR TD SCH (08:51)
[2021-03-14] MEDS: LORazepam 1 MG TAB PO SCH ×2 (08:51→17:28)
[2021-03-14 11:10] LABS: Albumin Level 3.1 gm/dl (3.4-5.0); BUN Creatinine Ratio 5.6 (10-20); Calcium 8.9 mg/dl (8.5-10.1); Creatinine Clr Calc Pharmacy 140.9 ml/min; Est GFR (African American) 121.8 ml/min; Potassium 3.9 mmol/L (3.5-5.1)
[2021-03-14 11:13] LABS: Albumin Globulin Ratio 1.1 (0.9-2); Bilirubin,Total 0.7 mg/dl (0.2-1); Globulin 2.8 gm/dl (2.5-4.0); Total Protein 5.9 gm/dl (6.4-8.2)
--- NOTE | 2021-03-14 20:27 | Psychiatric Progress Note ---
Date of Service March 14, 2021 Impression / Recommendations Impression The patient is a 40 year old with a history of schizophrenia vs BPAD, and depression who was admitted for failure of self-care and worsening decompensation. The patient is deemed unstable and requires psychiatric h ospitalization for diagnostic clarification, safety and stabilization, medication management and development of further coping skills. Initially focussed on Ativan dosing for catatonia but no consistent response to meds over objection. Patient seemed worse on Zyprexa, very poor PO. Started Emsam (MAOI patch on 02/21/21). Will focus on medication over objection and readdress possible ECT or antidepressant when improved. 304 status granted. 03/14/21: ongoing slow but stable improvement with engagement, movement, eating/drinking, using bathroom Plan: reviewed labwork, potassium has normalized, continues to have elevated Cl- and other signs of malnutrition including low BUN, low total protein, low albumin. Elevated ALT. (1) Bipolar disorder with depression: 03/14/21: Continue with current medications. Reviewed labwork, K+ improved but still signs of poor nutrition. Elevated ALT could be side effect from Emsam patch (occurs in <1/100 - 05/999 pts), will continue to monitor. may be able to consider transition to a po medication if he remains consistent with accepting po medications but for now Emsam patch benefit is felt to outweigh risk of slight ALT elevation. 03/13/21: Continue with current medications. Supports from [employer] will visit tomorrow. Labwork CMP tomorrow morning to ensure correction of hypokalemia. 03/12/21: Continue with current medications. Discussed with treatment team having his longterm supports come for a visit and they will visit on . Reviewed his interactions with staff during evening hours/overnight in the chart and continues to show progress with engagement. 03/11/21: Continue with ativan 1 mg BID po, canceled IM as he is agreeing to voluntary po. Given steady improvement over the last 1 week consistent with expected timeline for symptom improvement from Emsam patch he may no longer need longer term care option if improvement persists at this rate. If progress stalls or regression occurs then will reconsider if longer term option for treatment is required. 03/10/21: Reduce ativan to 1 mg BID due to dizziness, low BP and possible fall yesterday. Will discontinue lovenox per his request and since he is now consistently moving around throughout the day and at night, discussed risk of blood clots if he doesn't continue to move around and ambulate frequently which he vocalized understanding of and agreement with. Given improvement in nutritional intake will hold off on rechecking labwork for now, will get repeat labs in 1 week on 03/14. 03/09/21: Reviewed interim progress. Continue Emsam patch and ativan 2mg BID trial-will monitor for excessive sedation. 03/08/21: Ativan 2 mg BID trial. 03/07/21: patient seen by neurology, appreciate input, seems severe vegetative symptoms due to depression though last few doses of Ativan have been more effective than previous. Continue Ativan 1 mg po BID (IM for refusal). Attempt to replete K with powder dissolved in juice. 03/04/21: will explore personal [place] [facility] as concerns he will not improve to point he can make meals/meet requirements to return to [facility] during this stay. 03/03/21--continue same. Cannot attempt coadmin with stimulant trial for hypersomnia as contraindicated with MAOI. No medical decompensation that would necessitate referral to medical or seeking court order for ECT. At minimum behaviors are challenging but more appropriate when willing to interact with staff. Need to consider longer term care options given slow progression. 03/02/21--interim care reviewed. Continue EMSAM and Lovenox injection. 03/01/21--Day 9 of Emsam patch. Continuing with behavioral plan to encourage behavioral activation-he was provided with plan with goals of having him come out of his room to eat meals, cooperate with repositioning, stand up when his sheets are changed/or if he prefers to stay in bed until the evening then clean sheets can be provided for him to put on the bed or request help putting on the bed in the evening, and continue independently voiding in his bedside urinal, shower can be started for him but he should be encouraged to get into the shower on his own, encourage him to address basic hygiene by continuing to provide him with easy access to his toothbrush, shampoo, etc. 02/28/21--Day 8 of Emsam patch. Now seeing new pattern of daily food intake which is encouraging. Continues to present with regressed behaviors and refusal to interact during the day. 02/27/21--Continue with Emsam patch. Getting out of bed more in the evenings and eating more. Lack of engagement during the day was volitional-pulling blanket over his head after he saw me enter his room. Also becoming more irritable with staff when he is encouraged to do more on his own for behavioral activation. 02/26/21-Continue with Emsam patch. 304 status granted. Ate last night and interacted with staff but no engagement today. 02/25/21--Continues to demonstrate severe depression with neurovegetative s ymptoms with no engagement with staff. Behavioral plan challenged by finding a reward/incentive that he enjoys. Continuing to encourage behavioral activation. Petitioned for 304 status with hearing scheduled for tomorrow given ongoing symptom burden and need for ongoing treatment. Remains on lovenox for DVT prophylaxis. Continue with Emsam patch. 02/24/21--Remains isolative and will not engage verbally. Encouragingly is attending slightly more to some of his ADLs, will continue with behavioral plan in hopes to continue encouraging behavioral activation although food does not seem to be a good motivator/reward for him. Will continue to think about other possible motivators for him to help encourage increased activity, po intake and engagement with therapeutic milieu. No signs of HTN or other side effects from MAOI at this point. 02/23/21--Continues to demonstrate neurovegetative symptoms of depression, remaining in bed most of the day but sometimes more engagement in the evenings. Will implement behavioral plan to encourage behavioral activation to treat neurovegetative symptoms in conjunction with Emsam as well as to encourage increased participation with ADLs. Nursing to provide him with tools to help him eat and promote good hygiene (brining in meals, supplies to wash up) and then if he does this independently will bring in ice cream or chips as reward to see if this helps with activation and increased po intake. 02/22/21--neurologic work up with EEG and brain MRI unremarkable, continue Emsam trial. 02/21/21--complex differential--depression with psychotic features in a patient with bipolar disorder most likely, certainly not typcial catatonia. No hx of hyperphagia or hypersexuality known that would suggest Kleine-Hess syndrome. Will proceed with Emsam patch 6 mg trial as only means to administer antidepressant. Will check with an ECT facility to determine if can treat patient if pursue a court order (will await emsam trial first). MRI brain (patient will need various x rays first as can't answer screening questions, no hx of pacemaker on chart). bedside EEG to rule out status epilepticus. 02/19/21--non-formulary request for Emsam patch. Hasn't taken antidepressants for at least 6 weeks. Would reconsider current med doses when this becomes available. without antidepressant he will continue to decompensate medically and is at significant risk of further decompensation. 02/17/21--lytes, Bun/Cr improved; given sleep phase shift desirable to shift antipsychotic to pm meal with IM Zyprexa for refusal. Bedside EEG likely poor quality/low yeild but consider if no improvement. 02/16/21--Reviewed care by Dr. Garces in italics. will d/c IM Ativan in favor of Zyprexa IM for failure to take Latuda. Does take Lorazepam prn PO, adjust dose and frequency and monitor use. Will repeat labs and PO intake so variable and hard to track. 02/09/2021--admitted to [facility]. Ativan 2mg SL TID ordered. Track Is&Os. Vitals BID. 02/10/2021--continue with ativan 2mg TID SL. Showing significant improving in catatonic symptoms since ativan trial last night. If he continues to walk around no need for DVT prophylaxis. Will consider if 302 needs to be converted to 303 based on progress today. 02/11/2021--continue with scheduled ativan. Less engagement today but still eating and drinking. Plan for likely 303 given his inability/reluctance to eng age in treatment. Reviewed outside records. 02/12/2021--continues to refuse ativan today and won't engage with anyone nor leave his bed except to use the bathroom and to eat at night. Given some move ment in the evening and to the bathroom he doesn't require DVT prophylaxis at this time but this remains a concern should he clinically worsen and will continue to monitor his nutritional and medical status closely. 02/13/2021--placed on 303 status due to ongoing decompensation due to catatonia including refusal of medication, not eating, not drinking, not communicating with anyone and lying in bed all day. Once catatonia begins to improve with treatment will aim to start latuda which helped previously. Holden to require medications over objection for ativan to treat catatonia. If catatonia does not respond quickly to ativan then will consider if DVT prophylaxis should be initiated. 02/14/2021--no significant change in behaviors with additional of scheduled ativan 2 mg BID as medication over objection. Given concern for skin breakdown consult was placed for wound nurse. Given concern for possible DVT and after discussion with hospitalist will begin lovenox 40mg subQ daily. David was able to vocalize consent for this as he remains mute and unable/unwilling to engage but explained the risks, benefits, alternatives and rationale for lovenox and that we will be offering this to him. 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 02/15/2021--Have ruled out catatonia given inconsistent response to ativan trial, multiple observed examples of volitional movement immediately following periods of patient lying in bed and mute. Subsequent catatonia scales have been negative and patient feels that his symptoms represent withdrawn features of anxiety and depression. Given bipolar depression with neurovegetative features will start latuda. Encouragingly he is eating more and drinking more and got out of bed twice last night. Risk Factors Assessment Male: Yes : Yes Do You Have Access To A Gun?: No (in supportive living enviornment, pt unable to answer ) Mental Health Diagnoses: Yes Previous Psychiatric Hospitalization: Yes Protective Factors Assessment Employed: No Interval History Identifying Information 40 yo man with history of catatonia, depression, possible BPAD vs schizophrenia admitted due to concern for catatonia and decompensation with failure of self- care at [facility]. Admitted on 302, now 304. Chief Complaint mute. Review of Systems Sleep Information Total Hours of Sleep: 8.75 Sleep Comments: pt on q-15 minute checks Meal Information Percent Meal Consumed - Breakfast: 0 Percent Meal Consumed - Lunch: 0 Percent Meal Consumed - Dinner: 100 Nutrition Comment: Pt will not get out of bed or talk with staff this. Subjective Subjective Patient was seen & assessed and interval progress reviewed with treatment team nursing and social work. Allowed blood work this morning. Visited by supports from [employer]. Mute today during two attempts I made to engage with him. Physical Exam Psychiatric Orientation: alert; + uncooperative Apperance: + disheveled Eye Contact: + poor eye contact Motor Behavior: no abnormal motor movements and + psychomotor retardation Speech: + mute Affect: + flat affect Thought Process: + thought blocking Insight: + impaired insight Judgement: + impaired judgement Vital Signs (Past 24 Hours) Last Vital Signs Temp 36.5 C 03/14/21 20:00 Pulse 66 03/14/21 07:03 Resp 16 03/14/21 07:01 BP 118/73 03/14/21 07:03 Pulse Ox 97 03/14/21 07:01 Results & Data ([facility]) Laboratory Results Laboratory Results - last 24 hr 03/14/21 10:23 Sodium 140 Potassium 3.9 Chloride 111 H Carbon Dioxide 24 Anion Gap 5.0 BUN 5 L Creatinine 0.91 Est Cr Clr Drug Dosing 140.9 Est GFR ( Amer) 121.8 Est GFR (Non-Af Amer) 105.0 BUN/Creatinine Ratio 5.6 L Glucose 96 Calcium 8.9 Total Bilirubin 0.7 AST 22 ALT 84 H Alkaline Phosphatase 106 Total Protein 5.9 L Albumin 3.1 L Globulin 2.8 Albumin/Globulin Ratio 1.1 Current Inpatient Medications Current Inpatient Medications: Current Inpatient Medications Acetaminophen (Acetaminophen 325 Mg Tab) 650 mg PO Q4H PRN PRN Reason: Headache or Minor Fever Stop: 04/10/21 10:27 Al Hydrox/Mg Hydrox/Simethicone (Aluminum/Magnesium Susp 30 Ml Udc) 30 ml PO Q4H PRN PRN Reason: GI Upset Stop: 04/10/21 10:27 Bismuth Subsalicylate (Bismuth Subsalicylate Liqd 236 Ml) 15 ml PO PRN PRN PRN Reason: Loose Stool Stop: 04/10/21 10:27 Hydroxyzine HCl (Hydroxyzine Hcl 25 Mg Tab) 50 mg PO HSZ PRN PRN Reason: Insomnia Stop: 04/10/21 10:27 Hydroxyzine HCl (Hydroxyzine Hcl 25 Mg Tab) 25 mg PO Q4H PRN PRN Reason: Anxiety Stop: 04/10/21 10:27 Lorazepam (Lorazepam 1 Mg Tab) 1 mg PO Q6 PRN PRN Reason: Anxiety/Agitation Stop: 04/10/21 08:14 Lorazepam (Lorazepam 1 Mg Tab) 1 mg PO BIDM OG Stop: 11/30/21 17:44 Last Admin: 03/14/21 17:28 Dose: Not Given Documented by: Magnesium Hydroxide (Magnesium Hydroxide Susp 30 Ml Udc) 30 ml PO DAILY PRN PRN Reason: Constipation Stop: 04/10/21 10:27 Miscellaneous (Remove Patch Selegiline (Emsam)) 1 ea N/A Q24H OG Stop: 04/10/21 08:58 Last Admin: 03/14/21 08:51 Dose: 1 ea Documented by: Selegiline (Selegiline 6 Mg/24hr Tdsy) 6 mg TD DAILY OG Stop: 04/10/21 08:59 Last Admin: 03/14/21 08:51 Dose: 6 mg Documented by: Sodium Chloride (Sodium Chloride 0.65% Na Soln 45 Ml (Dent)) 1 - 2 sprays NA PRN PRN PRN Reason: Nasal Dryness/Congestion Stop: 04/10/21 10:27 Mental Health & Subst Abuse Tx Psychiatrist Name of Psychiatrist: Oniel Negron Psychiatrist's Date of Appointment with Psychiatrist: 03/13/21 Time of Appointment with Psychiatrist: 9:20am Psychiatric Appointment Comment: Zoom *is on waiting list for appt. sooner Therapist Name of Therapist: Unknown Work Order Detailer Name of Work Order Detailer: Mauri ([facility]) Post Discharge Appointments Primary Care Physician Name Of Family Doctor: Unknown
[2021-03-15] MEDS: SELEGILINE 6 MG/24 HR TD SCH (09:33)
[2021-03-15] MEDS: [UNRECOGNIZED DRUG - REMARK] SCH (09:36)
[2021-03-15] MEDS: LORazepam 1 MG TAB PO SCH ×2 (09:36→17:08)
--- NOTE | 2021-03-15 16:25 | Psychiatric Progress Note ---
Date of Service March 15, 2021 Impression / Recommendations Impression The patient is a 40 year old with a history of schizophrenia vs BPAD, and depression who was admitted for failure of self-care and worsening decompensation. The patient is deemed unstable and requires psychiatric h ospitalization for diagnostic clarification, safety and stabilization, medication management and development of further coping skills. Initially focussed on Ativan dosing for catatonia but no consistent response to meds over objection. Patient seemed worse on Zyprexa, very poor PO. Started Emsam (MAOI patch on 02/21/21). Will focus on medication over objection and readdress possible ECT or antidepressant when improved. 304 status granted. 03/15/21: some improvement with ADLs but engagement has declined this week. Showing more consistent sleep/wake cycle. Plan: Referred to [facility], reviewed lab results with David though he was non-verbal during the discussion so unclear if he has insight into this (1) Bipolar disorder with depression: 03/15/21: Continue current medications. Making referral to [facility] given slow progression and he is still very far from his baseline which will require extended treatment and thus he will be best served by a longer term treatment approach. 03/14/21: Continue with current medications. Reviewed labwork, K+ improved but still signs of poor nutrition. Elevated ALT could be side effect from Emsam patch (occurs in <1/100 - 05/999 pts), will continue to monitor. may be able to consider transition to a po medication if he remains consistent with accepting po medications but for now Emsam patch benefit is felt to outweigh risk of slight ALT elevation. 03/13/21: Continue with current medications. Supports from [place] will visit tomorrow. Labwork CMP tomorrow morning to ensure correction of hypokalemia. 03/12/21: Continue with current medications. Discussed with treatment team having his alf supports come for a visit and they will visit on . Reviewed his interactions with staff during evening hours/overnight in the chart and continues to show progress with engagement. 03/11/21: Continue with ativan 1 mg BID po, canceled IM as he is agreeing to voluntary po. Given steady improvement over the last 1 week consistent with expected timeline for symptom improvement from Emsam patch he may no longer need longer term care option if improvement persists at this rate. If progress stalls or regression occurs then will reconsider if longer term option for treatment is required. 03/10/21: Reduce ativan to 1 mg BID due to dizziness, low BP and possible fall yesterday. Will discontinue lovenox per his request and since he is now consistently moving around throughout the day and at night, discussed risk of blood clots if he doesn't continue to move around and ambulate frequently which he vocalized understanding of and agreement with. Given improvement in nutritional intake will hold off on rechecking labwork for now, will get repeat labs in 1 week on 03/14. 03/09/21: Reviewed interim progress. Continue Emsam patch and ativan 2mg BID trial-will monitor for excessive sedation. 03/08/21: Ativan 2 mg BID trial. 03/07/21: patient seen by neurology, appreciate input, seems severe vegetative symptoms due to depression though last few doses of Ativan have been more effective than previous. Continue Ativan 1 mg po BID (IM for refusal). Attempt to replete K with powder dissolved in juice. 03/04/21: will explore personal fci as concerns he will not improve to point he can make meals/meet requirements to return to [facility] during this stay. 03/03/21--continue same. Cannot attempt coadmin with stimulant trial for hypersomnia as contraindicated with MAOI. No medical decompensation that would necessitate referral to medical or seeking court order for ECT. At minimum behaviors are challenging but more appropriate when willing to interact with staff. Need to consider longer term care options given slow progression. 03/02/21--interim care reviewed. Continue EMSAM and Lovenox injection. 03/01/21--Day 9 of Emsam patch. Continuing with behavioral plan to encourage behavioral activation-he was provided with plan with goals of having him come out of his room to eat meals, cooperate with repositioning, stand up when his sheets are changed/or if he prefers to stay in bed until the evening then clean sheets can be provided for him to put on the bed or request help putting on the bed in the evening, and continue independently voiding in his bedside urinal, shower can be started for him but he should be encouraged to get into the shower on his own, encourage him to address basic hygiene by continuing to provide him with easy access to his toothbrush, shampoo, etc. 02/28/21--Day 8 of Emsam patch. Now seeing new pattern of daily food intake which is encouraging. Continues to present with regressed behaviors and refusal to interact during the day. 02/27/21--Continue with Emsam patch. Getting out of bed more in the evenings and eating more. Lack of engagement during the day was volitional-pulling blanket over his head after he saw me enter his room. Also becoming more irritable with staff when he is encouraged to do more on his own for behavioral activation. 02/26/21-Continue with Emsam patch. 304 status granted. Ate last night and interacted with staff but no engagement today. 02/25/21--Continues to demonstrate severe depression with neurovegetative symptoms with no engagement with staff. Behavioral plan challenged by finding a reward/incentive that he enjoys. Continuing to encourage behavioral activation. Petitioned for 304 status with hearing scheduled for tomorrow given ongoing symptom burden and need for ongoing treatment. Remains on lovenox for DVT prophylaxis. Continue with Emsam patch. 02/24/21--Remains isolative and will not engage verbally. Encouragingly is attending slightly more to some of his ADLs, will continue with behavioral plan in hopes to continue encouraging behavioral activation although food does not seem to be a good motivator/reward for him. Will continue to think about other possible motivators for him to help encourage increased activity, po intake and engagement with therapeutic milieu. No signs of HTN or other side effects from MAOI at this point. 02/23/21--Continues to demonstrate neurovegetative symptoms of depression, remaining in bed most of the day but sometimes more engagement in the evenings. Will implement behavioral plan to encourage behavioral activation to treat neurovegetative symptoms in conjunction with Emsam as well as to encourage increased participation with ADLs. Nursing to provide him with tools to help him eat and promote good hygiene (brining in meals, supplies to wash up) and then if he does this independently will bring in ice cream or chips as reward to see if this helps with activation and increased po intake. 02/22/21--neurologic work up with EEG and brain MRI unremarkable, continue Emsam trial. 02/21/21--complex differential--depression with psychotic features in a patient with bipolar disorder most likely, certainly not typcial catatonia. No hx of hyperphagia or hypersexuality known that would suggest Kleine-Hess syndrome. Will proceed with Emsam patch 6 mg trial as only means to administer antidepressant. Will check with an ECT facility to determine if can treat patient if pursue a court order (will await emsam trial first). MRI brain (patient will need various x rays first as can't answer screening questions, no hx of pacemaker on chart). bedside EEG to rule out status epilepticus. 02/19/21--non-formulary request for Emsam patch. Hasn't taken antidepressants for at least 6 weeks. Would reconsider current med doses when this becomes available. without antidepressant he will continue to decompensate medically and is at significant risk of further decompensation. 02/17/21--lytes, Bun/Cr improved; given sleep phase shift desirable to shift antipsychotic to pm meal with IM Zyprexa for refusal. Bedside EEG likely poor quality/low yeild but consider if no improvement. 02/16/21--Reviewed care by Dr. Garces in italics. will d/c IM Ativan in favor of Zyprexa IM for failure to take Latuda. Does take Lorazepam prn PO, adjust dose and frequency and monitor use. Will repeat labs and PO intake so variable and hard to track. 02/09/2021--admitted to [facility]. Ativan 2mg SL TID ordered. Track Is&Os. Vitals BID. 02/10/2021--continue with ativan 2mg TID SL. Showing significant improving in catatonic symptoms since ativan trial last night. If he continues to walk around no need for DVT prophylaxis. Will consider if 302 needs to be converted to 303 based on progress today. 02/11/2021--continue with scheduled ativan. Less engagement today but still eating and drinking. Plan for likely 303 given his inability/reluctance to engage in treatment. Reviewed outside records. 02/12/2021--continues to refuse ativan today and won't engage with anyone nor leave his bed except to use the bathroom and to eat at night. Given some movement in the evening and to the bathroom he doesn't require DVT prophylaxis at this time but this remains a concern should he clinically worsen and will continue to monitor his nutritional and medical status closely. 02/13/2021--placed on 303 status due to ongoing decompensation due to catatonia including refusal of medication, not eating, not drinking, not communicating with anyone and lying in bed all day. Once catatonia begins to improve with treatment will aim to start latuda which helped previously. [place] to require medications over objection for ativan to treat catatonia. If catatonia does not respond quickly to ativan then will consider if DVT prophylaxis should be initiated. 02/14/2021--no significant change in behaviors with additional of scheduled ativan 2 mg BID as medication over objection. Given concern for skin breakdown consult was placed for wound nurse. Given concern for possible DVT and after discussion with hospitalist will begin lovenox 40mg subQ daily. David was able to vocalize consent for this as he remains mute and unable/unwilling to engage but explained the risks, benefits, alternatives and rationale for lovenox and that we will be offering this to him. 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 02/15/2021--Have ruled out catatonia given inconsistent response to ativan trial, multiple observed examples of volitional movement immediately following periods of patient lying in bed and mute. Subsequent catatonia scales have been negative and patient feels that his symptoms represent withdrawn features of anxiety and depression. Given bipolar depression with neurovegetative features will start latuda. Encouragingly he is eating more and drinking more and got out of bed twice last night. Risk Factors Assessment Male: Yes : Yes Do You Have Access To A Gun?: No (in supportive living enviornment, pt unable to answer ) Mental Health Diagnoses: Yes Previous Psychiatric Hospitalization: Yes Protective Factors Assessment Employed: No Interval History Identifying Information 40 yo man with history of catatonia, depression, possible BPAD vs schizophrenia admitted due to concern for catatonia and decompensation with failure of self- care at [facility]. Admitted on 302, now 304. Chief Complaint mute Review of Systems Sleep Information Total Hours of Sleep: 4 Sleep Comments: pt on q-15 minute checks Meal Information Percent Meal Consumed - Breakfast: 0 Percent Meal Consumed - Lunch: 0 Percent Meal Consumed - Dinner: 100 Nutrition Comment: Pt will not get out of bed or talk with staff this. Subjective Subjective Patient was seen & assessed and interval progress reviewed with treatment team nursing and social work. Sat up and awake in bed all day but would not engage verbally with staff. Was mute during my multiple attempts to engage with him. Informed him of plan to refer him to the [facility]. Physical Exam Psychiatric Orientation: alert; + uncooperative Apperance: + disheveled Eye Contact: + poor eye contact Motor Behavior: no abnormal motor movements and + psychomotor retardation Speech: + mute Affect: + flat affect Thought Process: + thought blocking Cognition: + attention not intact Insight: + impaired insight Judgement: + severely impaired judgement Vital Signs (Past 24 Hours) Last Vital Signs Temp 36.8 C 03/14/21 21:10 Pulse 80 03/15/21 14:00 Resp 16 03/15/21 06:00 BP 136/82 03/15/21 14:00 Pulse Ox 95 03/14/21 21:10 Results & Data ([facility]) Current Inpatient Medications Current Inpatient Medications: Current Inpatient Medications Acetaminophen (Acetaminophen 325 Mg Tab) 650 mg PO Q4H PRN PRN Reason: Headache or Minor Fever Stop: 04/10/21 10:27 Al Hydrox/Mg Hydrox/Simethicone (Aluminum/Magnesium Susp 30 Ml Udc) 30 ml PO Q4H PRN PRN Reason: GI Upset Stop: 04/10/21 10:27 Bismuth Subsalicylate (Bismuth Subsalicylate Liqd 236 Ml) 15 ml PO PRN PRN PRN Reason: Loose Stool Stop: 04/10/21 10:27 Hydroxyzine HCl (Hydroxyzine Hcl 25 Mg Tab) 50 mg PO HSZ PRN PRN Reason: Insomnia Stop: 04/10/21 10:27 Hydroxyzine HCl (Hydroxyzine Hcl 25 Mg Tab) 25 mg PO Q4H PRN PRN Reason: Anxiety Stop: 04/10/21 10:27 Lorazepam (Lorazepam 1 Mg Tab) 1 mg PO Q6 PRN PRN Reason: Anxiety/Agitation Stop: 04/10/21 08:14 Lorazepam (Lorazepam 1 Mg Tab) 1 mg PO BIDM OG Stop: 04/09/21 17:44 Last Admin: 03/15/21 09:36 Dose: Not Given Documented by: Magnesium Hydroxide (Magnesium Hydroxide Susp 30 Ml Udc) 30 ml PO DAILY PRN PRN Reason: Constipation Stop: 04/10/21 10:27 Miscellaneous (Remove Patch Selegiline (Emsam)) 1 ea N/A Q24H OG Stop: 04/10/21 08:58 Last Admin: 03/15/21 09:36 Dose: 1 ea Documented by: Selegiline (Selegiline 6 Mg/24hr Tdsy) 6 mg TD DAILY OG Stop: 04/10/21 08:59 Last Admin: 03/15/21 09:33 Dose: 6 mg Documented by: Sodium Chloride (Sodium Chloride 0.65% Na Soln 45 Ml ([place])) 1 - 2 sprays NA PRN PRN PRN Reason: Nasal Dryness/Congestion Stop: 04/10/21 10:27 Mental Health & Subst Abuse Tx Psychiatrist Name of Psychiatrist: Oniel Negron Psychiatrist's Date of Appointment with Psychiatrist: 03/13/21 Time of Appointment with Psychiatrist: 9:20am Psychiatric Appointment Comment: Zoom *is on waiting list for appt. sooner Therapist Name of Therapist: Unknown Banana Carrier Name of Banana Carrier: Mauri ([facility]) Post Discharge Appointments Primary Care Physician Name Of Family Doctor: Unknown
[2021-03-16] MEDS: SELEGILINE 6 MG/24 HR TD SCH (09:12)
[2021-03-16] MEDS: LORazepam 2 MG/ML VIAL (IM USE) IM SCH ×2 (09:13→17:25)
[2021-03-16] MEDS: LORazepam 1 MG TAB PO SCH ×2 (09:14→17:18)
[2021-03-16] MEDS: [UNRECOGNIZED DRUG - REMARK] SCH (09:14)
--- NOTE | 2021-03-16 12:01 | Psychiatric Progress Note ---
Date of Service March 16, 2021 Impression / Recommendations Impression The patient is a 40 year old with a history of schizoaffective disorder vs bipolar depression who was admitted for failure of self-care and worsening decompensation at assisted. The patient is deemed unstable and requires psychiatric hospitalization for diagnostic clarification, safety and stabilization, medication management and development of further coping skills. Initially focussed on Ativan dosing for catatonia but no consistent response to meds over objection. Patient seemed worse on Zyprexa, very poor PO. Started Emsam (MAOI patch on 02/21/21). Will focus on medication over objection and readdress possible ECT or other med trials. 304 status granted. 03/16/21: refusing to shower, poor PO yesterday, clear decline since stopping IM Ativan (once refusing PO). (1) Bipolar disorder with depression: 03/16/21: resume IM Ativan for refusal of PO Ativan. 03/15/21: Continue current medications. Making referral to [facility] given slow progression and he is still very far from his baseline which will require extended treatment and thus he will be best served by a longer term treatment approach. 03/14/21: Continue with current medications. Reviewed labwork, K+ improved but still signs of poor nutrition. Elevated ALT could be side effect from Emsam patch (occurs in <1/100 - 05/999 pts), will continue to monitor. may be able to consider transition to a po medication if he remains consistent with accepting po medications but for now Emsam patch benefit is felt to outweigh risk of slight ALT elevation. 03/13/21: Continue with current medications. Supports from [facility] will visit tomorrow. Labwork CMP tomorrow morning to ensure correction of hypokalemia. 03/12/21: Continue with current medications. Discussed with treatment team having his assisted supports come for a visit and they will visit on . Reviewed his interactions with staff during evening hours/overnight in the chart and continues to show progress with engagement. 03/11/21: Continue with ativan 1 mg BID po, canceled IM as he is agreeing to voluntary po. Given steady improvement over the last 1 week consistent with expected timeline for symptom improvement from Emsam patch he may no longer need longer term care option if improvement persists at this rate. If progress stalls or regression occurs then will reconsider if longer term option for treatment is required. 03/10/21: Reduce ativan to 1 mg BID due to dizziness, low BP and possible fall yesterday. Will discontinue lovenox per his request and since he is now consistently moving around throughout the day and at night, discussed risk of blood clots if he doesn't continue to move around and ambulate frequently which he vocalized understanding of and agreement with. Given improvement in nutritional intake will hold off on rechecking labwork for now, will get repeat labs in 1 week on 03/14. 03/09/21: Reviewed interim progress. Continue Emsam patch and ativan 2mg BID trial-will monitor for excessive sedation. 03/08/21: Ativan 2 mg BID trial. 03/07/21: patient seen by neurology, appreciate input, seems severe vegetative symptoms due to depression though last few doses of Ativan have been more effective than previous. Continue Ativan 1 mg po BID (IM for refusal). Attempt to replete K with powder dissolved in juice. 03/04/21: will explore personal long-term as concerns he will not improve to point he can make meals/meet requirements to return to [facility] during this stay. 03/03/21--continue same. Cannot attempt coadmin with stimulant trial for hypersomnia as contraindicated with MAOI. No medical decompensation that would necessitate referral to medical or seeking court order for ECT. At minimum behaviors are challenging but more appropriate when willing to interact with staff. Need to consider longer term care options given slow progression. 03/02/21--interim care reviewed. Continue EMSAM and Lovenox injection. 03/01/21--Day 9 of Emsam patch. Continuing with behavioral plan to encourage behavioral activation-he was provided with plan with goals of having him come out of his room to eat meals, cooperate with repositioning, stand up when his sheets are changed/or if he prefers to stay in bed until the evening then clean sheets can be provided for him to put on the bed or request help putting on the bed in the evening, and continue independently voiding in his bedside urinal, shower can be started for him but he should be encouraged to get into the shower on his own, encourage him to address basic hygiene by continuing to provide him with easy access to his toothbrush, shampoo, etc. 02/28/21--Day 8 of Emsam patch. Now seeing new pattern of daily food intake which is encouraging. Continues to present with regressed behaviors and refusal to interact during the day. 02/27/21--Continue with Emsam patch. Getting out of bed more in the evenings and eating more. Lack of engagement during the day was volitional-pulling blanket over his head after he saw me enter his room. Also becoming more irritable with staff when he is encouraged to do more on his own for behavioral activation. 02/26/21-Continue with Emsam patch. 304 status granted. Ate last night and interacted with staff but no engagement today. 02/25/21--Continues to demonstrate severe depression with neurovegetative symptoms with no engagement with staff. Behavioral plan challenged by finding a reward/incentive that he enjoys. Continuing to encourage behavioral activation. Petitioned for 304 status with hearing scheduled for tomorrow given ongoing symptom burden and need for ongoing treatment. Remains on lovenox for DVT prophylaxis. Continue with Emsam patch. 02/24/21--Remains isolative and will not engage verbally. Encouragingly is attending slightly more to some of his ADLs, will continue with behavioral plan in hopes to continue encouraging behavioral activation although food does not seem to be a good motivator/reward for him. Will continue to think about other possible motivators for him to help encourage increased activity, po intake and engagement with therapeutic milieu. No signs of HTN or other side effects from MAOI at this point. 02/23/21--Continues to demonstrate neurovegetative symptoms of depression, remaining in bed most of the day but sometimes more engagement in the evenings. Will implement behavioral plan to encourage behavioral activation to treat neurovegetative symptoms in conjunction with Emsam as well as to encourage increased participation with ADLs. Nursing to provide him with tools to help him eat and promote good hygiene (brining in meals, supplies to wash up) and then if he does this independently will bring in ice cream or chips as reward to see if this helps with activation and increased po intake. 02/22/21--neurologic work up with EEG and brain MRI unremarkable, continue Emsam trial. 02/21/21--complex differential--depression with psychotic features in a patient with bipolar disorder most likely, certainly not typcial catatonia. No hx of hyperphagia or hypersexuality known that would suggest Kleine-Hess syndrome. Will proceed with Emsam patch 6 mg trial as only means to administer antidepressant. Will check with an ECT facility to determine if can treat patient if pursue a court order (will await emsam trial first). MRI brain (patient will need various x rays first as can't answer screening questions, no hx of pacemaker on chart). bedside EEG to rule out status epilepticus. 02/19/21--non-formulary request for Emsam patch. Hasn't taken antidepressants for at least 6 weeks. Would reconsider current med doses when this becomes available. without antidepressant he will continue to decompensate medically and is at significant risk of further decompensation. 02/17/21--lytes, Bun/Cr improved; given sleep phase shift desirable to shift antipsychotic to pm meal with IM Zyprexa for refusal. Bedside EEG likely poor quality/low yeild but consider if no improvement. 02/16/21--Reviewed care by Dr. Garces in italics. will d/c IM Ativan in favor of Zyprexa IM for failure to take Latuda. Does take Lorazepam prn PO, adjust dose and frequency and monitor use. Will repeat labs and PO intake so variable and hard to track. 02/09/2021--admitted to [facility]. Ativan 2mg SL TID ordered. Track Is&Os. Vitals BID. 02/10/2021--continue with ativan 2mg TID SL. Showing significant improving in catatonic symptoms since ativan trial last night. If he continues to walk around no need for DVT prophylaxis. Will consider if 302 needs to be converted to 303 based on progress today. 02/11/2021--continue with scheduled ativan. Less engagement today but still eating and drinking. Plan for likely 303 given his inability/reluctance to engage in treatment. Reviewed outside records. 02/12/2021--continues to refuse ativan today and won't engage with anyone nor leave his bed except to use the bathroom and to eat at night. Given some movement in the evening and to the bathroom he doesn't require DVT prophylaxis at this time but this remains a concern should he clinically worsen and will continue to monitor his nutritional and medical status closely. 02/13/2021--placed on 303 status due to ongoing decompensation due to catatonia including refusal of medication, not eating, not drinking, not communicating with anyone and lying in bed all day. Once catatonia begins to improve with treatment will aim to start latuda which helped previously. [place] to require medications over objection for ativan to treat catatonia. If catatonia does not respond quickly to ativan then will consider if DVT prophylaxis should be initiated. 02/14/2021--no significant change in behaviors with additional of scheduled ativan 2 mg BID as medication over objection. Given concern for skin breakdown consult was placed for wound nurse. Given concern for possible DVT and after discussion with hospitalist will begin lovenox 40mg subQ daily. David was able to vocalize consent for this as he remains mute and unable/unwilling to engage but explained the risks, benefits, alternatives and rationale for lovenox and that we will be offering this to him. 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 02/15/2021--Have ruled out catatonia given inconsistent response to ativan trial, multiple observed examples of volitional movement immediately following periods of patient lying in bed and mute. Subsequent catatonia scales have been negative and patient feels that his symptoms represent withdrawn features of anxiety and depression. Given bipolar depression with neurovegetative features will start latuda. Encouragingly he is eating more and drinking more and got out of bed twice last night. Risk Factors Assessment Male: Yes : Yes Do You Have Access To A Gun?: No (in supportive living enviornment, pt unable to answer ) Mental Health Diagnoses: Yes Previous Psychiatric Hospitalization: Yes Protective Factors Assessment Employed: No Interval History Identifying Information 40 yo man with history of catatonia, depression, possible BPAD vs schizophrenia admitted due to concern for catatonia and decompensation with failure of self- care at [facility]. Admitted on 302, now 304. Chief Complaint refusing PO Ativan again Review of Systems Sleep Information Total Hours of Sleep: 5.5 Sleep Comments: pt on q-15 minute checks Meal Information Percent Meal Consumed - Breakfast: 0 Percent Meal Consumed - Lunch: 0 Percent Meal Consumed - Dinner: 0 Nutrition Comment: Pt will not get out of bed or talk with staff this. Subjective Subjective Patient was seen & assessed and interval progress reviewed with nursing and social work. Patient regressed yesterday, refusing doses of PO medication since heard he would be visited by assisted staff. Physical Exam Psychiatric Orientation: alert; + uncooperative Apperance: + disheveled Eye Contact: + poor eye contact Motor Behavior: no abnormal motor movements and + psychomotor retardation Speech: + mute Affect: + flat affect Cognition: + attention not intact Insight: + impaired insight Judgement: + severely impaired judgement Vital Signs (Past 24 Hours) Last Vital Signs Temp 36.8 C 03/15/21 20:07 Pulse 92 H 03/15/21 20:40 Resp 16 03/15/21 20:40 BP 122/81 03/15/21 20:40 Pulse Ox 95 03/14/21 21:10 Results & Data ([facility]) Current Inpatient Medications Current Inpatient Medications: Current Inpatient Medications Acetaminophen (Acetaminophen 325 Mg Tab) 650 mg PO Q4H PRN PRN Reason: Headache or Minor Fever Stop: 04/10/21 10:27 Last Admin: 03/16/21 10:34 Dose: 325 mg Documented by: Al Hydrox/Mg Hydrox/Simethicone (Aluminum/Magnesium Susp 30 Ml Udc) 30 ml PO Q4H PRN PRN Reason: GI Upset Stop: 04/10/21 10:27 Bismuth Subsalicylate (Bismuth Subsalicylate Liqd 236 Ml) 15 ml PO PRN PRN PRN Reason: Loose Stool Stop: 04/10/21 10:27 Hydroxyzine HCl (Hydroxyzine Hcl 25 Mg Tab) 50 mg PO HSZ PRN PRN Reason: Insomnia Stop: 04/10/21 10:27 Hydroxyzine HCl (Hydroxyzine Hcl 25 Mg Tab) 25 mg PO Q4H PRN PRN Reason: Anxiety Stop: 04/10/21 10:27 Lorazepam (Lorazepam 1 Mg Tab) 1 mg PO Q6 PRN PRN Reason: Anxiety/Agitation Stop: 04/10/21 08:14 Lorazepam (Lorazepam 1 Mg Tab) 1 mg PO BIDM OG Stop: 04/09/21 17:44 Last Admin: 03/16/21 09:14 Dose: Not Given Documented by: Lorazepam (Lorazepam 2 Mg/Ml Vial (Im Use)) 1 mg IM BIDM OG Stop: 04/15/21 08:59 Last Admin: 03/16/21 09:13 Dose: 1 mg Documented by: Magnesium Hydroxide (Magnesium Hydroxide Susp 30 Ml Udc) 30 ml PO DAILY PRN PRN Reason: Constipation Stop: 04/10/21 10:27 Miscellaneous (Remove Patch Selegiline (Emsam)) 1 ea N/A Q24H OG Stop: 04/10/21 08:58 Last Admin: 03/16/21 09:14 Dose: 1 ea Documented by: Selegiline (Selegiline 6 Mg/24hr Tdsy) 6 mg TD DAILY OG Stop: 04/10/21 08:59 Last Admin: 03/16/21 09:12 Dose: 6 mg Documented by: Sodium Chloride (Sodium Chloride 0.65% Na Soln 45 Ml ([place])) 1 - 2 sprays NA PRN PRN PRN Reason: Nasal Dryness/Congestion Stop: 04/10/21 10:27 Mental Health & Subst Abuse Tx Psychiatrist Name of Psychiatrist: Oniel Negron Psychiatrist's Date of Appointment with Psychiatrist: 03/13/21 Time of Appointment with Psychiatrist: 9:20am Psychiatric Appointment Comment: Zoom *is on waiting list for appt. sooner Therapist Name of Therapist: Unknown Enterprise Services Manager Name of Enterprise Services Manager: Mauri AVILAU) Post Discharge Appointments Primary Care Physician Name Of Family Doctor: Unknown
[2021-03-17] MEDS: [UNRECOGNIZED DRUG - REMARK] SCH (08:46)
[2021-03-17] MEDS: SELEGILINE 6 MG/24 HR TD SCH (08:46)
[2021-03-17] MEDS: LORazepam 1 MG TAB PO SCH ×3 (09:01→17:06)
[2021-03-17] MEDS: LORazepam 2 MG/ML VIAL (IM USE) IM SCH ×2 (09:02→17:09)
--- NOTE | 2021-03-17 12:20 | Psychiatric Progress Note ---
Date of Service March 17, 2021 Impression / Recommendations Impression The patient is a 40 year old with a history of schizoaffective disorder vs bipolar depression who was admitted for failure of self-care and worsening decompensation at custodial. The patient is deemed unstable and requires psychiatric hospitalization for diagnostic clarification, safety and stabilization, medication management and development of further coping skills. Initially focussed on Ativan dosing for catatonia but no consistent response to meds over objection. Patient seemed worse on Zyprexa, very poor PO. Started Emsam (MAOI patch on 02/21/21). Will focus on medication over objection and readdress possible ECT or other med trials. 304 status granted. 03/17/21: will increase Ativan to TID as seems to accept some doses PO and possible tolerability issues before with 2 mg BID but will only inject BID for objection. (1) Bipolar disorder with depression: 03/17/21: Ativan 1 mg PO TID (inject up to BID for refusal). 03/16/21: resume IM Ativan for refusal of PO Ativan. 03/15/21: Continue current medications. Making referral to [facility] given slow progression and he is still very far from his baseline which will require extended treatment and thus he will be best served by a longer term treatment approach. 03/14/21: Continue with current medications. Reviewed labwork, K+ improved but still signs of poor nutrition. Elevated ALT could be side effect from Emsam patch (occurs in <1/100 - 05/999 pts), will continue to monitor. may be able to consider transition to a po medication if he remains consistent with accepting po medications but for now Emsam patch benefit is felt to outweigh risk of slight ALT elevation. 03/13/21: Continue with current medications. Supports from [employer] will visit tomorrow. Labwork CMP tomorrow morning to ensure correction of hypokalemia. 03/12/21: Continue with current medications. Discussed with treatment team having his custodial supports come for a visit and they will visit on . Bruce slaughterwed his interactions with staff during evening hours/overnight in the chart and continues to show progress with engagement. 03/11/21: Continue with ativan 1 mg BID po, canceled IM as he is agreeing to voluntary po. Given steady improvement over the last 1 week consistent with expected timeline for symptom improvement from Emsam patch he may no longer need longer term care option if improvement persists at this rate. If progress stalls or regression occurs then will reconsider if longer term option for treatment is required. 03/10/21: Reduce ativan to 1 mg BID due to dizziness, low BP and possible fall yesterday. Will discontinue lovenox per his request and since he is now consistently moving around throughout the day and at night, discussed risk of blood clots if he doesn't continue to move around and ambulate frequently which he vocalized understanding of and agreement with. Given improvement in nutritional intake will hold off on rechecking labwork for now, will get repeat labs in 1 week on 03/14. 03/09/21: Reviewed interim progress. Continue Emsam patch and ativan 2mg BID trial-will monitor for excessive sedation. 03/08/21: Ativan 2 mg BID trial. 03/07/21: patient seen by neurology, appreciate input, seems severe vegetative symptoms due to depression though last few doses of Ativan have been more effective than previous. Continue Ativan 1 mg po BID (IM for refusal). Attempt to replete K with powder dissolved in juice. 03/04/21: will explore [facility] [place] [facility] as concerns he will not improve to point he can make meals/meet requirements to return to [facility] during this stay. 03/03/21--continue same. Cannot attempt coadmin with stimulant trial for hypersomnia as contraindicated with MAOI. No medical decompensation that would necessitate referral to medical or seeking court order for ECT. At minimum behaviors are challenging but more appropriate when willing to interact with staff. Need to consider longer term care options given slow progression. 03/02/21--interim care reviewed. Continue EMSAM and Lovenox injection. 03/01/21--Day 9 of Emsam patch. Continuing with behavioral plan to encourage behavioral activation-he was provided with plan with goals of having him come out of his room to eat meals, cooperate with repositioning, stand up when his sheets are changed/or if he prefers to stay in bed until the evening then clean sheets can be provided for him to put on the bed or request help putting on the bed in the evening, and continue independently voiding in his bedside urinal, shower can be started for him but he should be encouraged to get into the shower on his own, encourage him to address basic hygiene by continuing to provide him with easy access to his toothbrush, shampoo, etc. 02/28/21--Day 8 of Emsam patch. Now seeing new pattern of daily food intake which is encouraging. Continues to present with regressed behaviors and refusal to interact during the day. 02/27/21--Continue with Emsam patch. Getting out of bed more in the evenings and eating more. Lack of engagement during the day was volitional-pulling blanket over his head after he saw me enter his room. Also becoming more irritable with staff when he is encouraged to do more on his own for behavioral activation. 02/26/21-Continue with Emsam patch. 304 status granted. Ate last night and interacted with staff but no engagement today. 02/25/21--Continues to demonstrate severe depression with neurovegetative symptoms with no engagement with staff. Behavioral plan challenged by finding a reward/incentive that he enjoys. Continuing to encourage behavioral activation. Petitioned for 304 status with hearing scheduled for tomorrow given ongoing symptom burden and need for ongoing treatment. Remains on lovenox for DVT prophylaxis. Continue with Emsam patch. 02/24/21--Remains isolative and will not engage verbally. Encouragingly is attending slightly more to some of his ADLs, will continue with behavioral plan in hopes to continue encouraging behavioral activation although food does not seem to be a good motivator/reward for him. Will continue to think about other possible motivators for him to help encourage increased activity, po intake and engagement with therapeutic milieu. No signs of HTN or other side effects from MAOI at this point. 02/23/21--Continues to demonstrate neurovegetative symptoms of depression, remaining in bed most of the day but sometimes more engagement in the evenings. Will implement behavioral plan to encourage behavioral activation to treat neurovegetative symptoms in conjunction with Emsam as well as to encourage increased participation with ADLs. Nursing to provide him with tools to help him eat and promote good hygiene (brining in meals, supplies to wash up) and then if he does this independently will bring in ice cream or chips as reward to see if this helps with activation and increased po intake. 02/22/21--neurologic work up with EEG and brain MRI unremarkable, continue Emsam trial. 02/21/21--complex differential--depression with psychotic features in a patient with bipolar disorder most likely, certainly not typcial catatonia. No hx of hyperphagia or hypersexuality known that would suggest Kleine-Hess syndrome. Will proceed with Emsam patch 6 mg trial as only means to administer antidepressant. Will check with an ECT facility to determine if can treat patient if pursue a court order (will await emsam trial first). MRI brain (patient will need various x rays first as can't answer screening questions, no hx of pacemaker on chart). bedside EEG to rule out status epilepticus. 02/19/21--non-formulary request for Emsam patch. Hasn't taken antidepressants for at least 6 weeks. Would reconsider current med doses when this becomes available. without antidepressant he will continue to decompensate medically and is at significant risk of further decompensation. 02/17/21--lytes, Bun/Cr improved; given sleep phase shift desirable to shift antipsychotic to pm meal with IM Zyprexa for refusal. Bedside EEG likely poor quality/low yeild but consider if no improvement. 02/16/21--Reviewed care by Dr. Garces in italics. will d/c IM Ativan in favor of Zyprexa IM for failure to take Latuda. Does take Lorazepam prn PO, adjust dose and frequency and monitor use. Will repeat labs and PO intake so variable and hard to track. 02/09/2021--admitted to [facility]. Ativan 2mg SL TID ordered. Track Is&Os. Vitals BID. 02/10/2021--continue with ativan 2mg TID SL. Showing significant improving in catatonic symptoms since ativan trial last night. If he continues to walk around no need for DVT prophylaxis. Will consider if 302 needs to be converted to 303 based on progress today. 02/11/2021--continue with scheduled ativan. Less engagement today but still eating and drinking. Plan for likely 303 given his inability/reluctance to engage in treatment. Reviewed outside records. 02/12/2021--continues to refuse ativan today and won't engage with anyone nor leave his bed except to use the bathroom and to eat at night. Given some movement in the evening and to the bathroom he doesn't require DVT prophylaxis at this time but this remains a concern should he clinically worsen and will continue to monitor his nutritional and medical status closely. 02/13/2021--placed on 303 status due to ongoing decompensation due to catatonia including refusal of medication, not eating, not drinking, not communicating with anyone and lying in bed all day. Once catatonia begins to improve with treatment will aim to start latuda which helped previously. [place] to require medications over objection for ativan to treat catatonia. If catatonia does not respond quickly to ativan then will consider if DVT prophylaxis should be initiated. 02/14/2021--no significant change in behaviors with additional of scheduled ativan 2 mg BID as medication over objection. Given concern for skin breakdown consult was placed for wound nurse. Given concern for possible DVT and after discussion with hospitalist will begin lovenox 40mg subQ daily. David was able to vocalize consent for this as he remains mute and unable/unwilling to engage but explained the risks, benefits, alternatives and rationale for lovenox and that we will be offering this to him. 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 02/15/2021--Have ruled out catatonia given inconsistent response to ativan trial, multiple observed examples of volitional movement immediately following periods of patient lying in bed and mute. Subsequent catatonia scales have been negative and patient feels that his symptoms represent withdrawn features of anxiety and depression. Given bipolar depression with neurovegetative features will start latuda. Encouragingly he is eating more and drinking more and got out of bed twice last night. Risk Factors Assessment Male: Yes : Yes Do You Have Access To A Gun?: No (in supportive living enviornment, pt unable to answer ) Mental Health Diagnoses: Yes Previous Psychiatric Hospitalization: Yes Protective Factors Assessment Employed: No Interval History Identifying Information 40 yo man with history of catatonia, depression, bipolar disorder vs schizophrenia admitted due to concern for decompensation with failure of self- care at [facility]. Admitted on 302, now 304. Chief Complaint "Please stop that". Review of Systems Sleep Information Total Hours of Sleep: 7.5 Sleep Comments: pt on q-15 minute checks Meal Information Percent Meal Consumed - Breakfast: 0 Percent Meal Consumed - Lunch: 50 Percent Meal Consumed - Dinner: 100 Nutrition Comment: Had CIB with ice cream Subjective Subjective Patient was seen & assessed and interval progress reviewed with nursing and social work. Attempted to provide nail care as toenails broken, unsanitary fingernails and scratches backside to point of excoriation. Patient would not uncurl fist even after IM Ativan. He was OOB yesterday in afternoon, accepted PO Ativan later in day and was out to eat, irritable with staff when redirected around tray. He is drinking more regularly again since reinstituting IM Ativan. Physical Exam Psychiatric limited due to poor cooperation, appeared paranoid clenching teeth and fist but allowed nail care to 1 foot and 1 large toe on the other. Did speak spontaneously to ask to stop for today and honored request despite very poor hygiene. Vital Signs (Past 24 Hours) Last Vital Signs Temp 36.9 C 03/16/21 22:00 Pulse 103 H 03/17/21 06:50 Resp 16 03/17/21 06:50 BP 107/75 03/17/21 06:50 Pulse Ox 95 03/14/21 21:10 Results & Data ([facility]) Current Inpatient Medications Current Inpatient Medications: Current Inpatient Medications Acetaminophen (Acetaminophen 325 Mg Tab) 650 mg PO Q4H PRN PRN Reason: Headache or Minor Fever Stop: 04/10/21 10:27 Last Admin: 03/16/21 10:34 Dose: 325 mg Documented by: Al Hydrox/Mg Hydrox/Simethicone (Aluminum/Magnesium Susp 30 Ml Udc) 30 ml PO Q4H PRN PRN Reason: GI Upset Stop: 04/10/21 10:27 Bismuth Subsalicylate (Bismuth Subsalicylate Liqd 236 Ml) 15 ml PO PRN PRN PRN Reason: Loose Stool Stop: 04/10/21 10:27 Hydroxyzine HCl (Hydroxyzine Hcl 25 Mg Tab) 50 mg PO HSZ PRN PRN Reason: Insomnia Stop: 04/10/21 10:27 Hydroxyzine HCl (Hydroxyzine Hcl 25 Mg Tab) 25 mg PO Q4H PRN PRN Reason: Anxiety Stop: 04/10/21 10:27 Lorazepam (Lorazepam 1 Mg Tab) 1 mg PO Q6 PRN PRN Reason: Anxiety/Agitation Stop: 04/10/21 08:14 Lorazepam (Lorazepam 1 Mg Tab) 1 mg PO BIDM OG Stop: 04/09/21 17:44 Last Admin: 03/17/21 09:01 Dose: Not Given Documented by: Lorazepam (Lorazepam 2 Mg/Ml Vial (Im Use)) 1 mg IM BIDM GO Stop: 04/15/21 08:59 Last Admin: 03/17/21 09:02 Dose: 1 mg Documented by: Magnesium Hydroxide (Magnesium Hydroxide Susp 30 Ml Udc) 30 ml PO DAILY PRN PRN Reason: Constipation Stop: 04/10/21 10:27 Miscellaneous (Remove Patch Selegiline (Emsam)) 1 ea N/A Q24H OG Stop: 04/10/21 08:58 Last Admin: 03/17/21 08:46 Dose: 1 ea Documented by: Selegiline (Selegiline 6 Mg/24hr Tdsy) 6 mg TD DAILY OG Stop: 04/10/21 08:59 Last Admin: 03/17/21 08:46 Dose: 6 mg Documented by: Sodium Chloride (Sodium Chloride 0.65% Na Soln 45 Ml ([place])) 1 - 2 sprays NA PRN PRN PRN Reason: Nasal Dryness/Congestion Stop: 04/10/21 10:27 Mental Health & Subst Abuse Tx Psychiatrist Name of Psychiatrist: Oniel Negron Psychiatrist's Date of Appointment with Psychiatrist: 03/13/21 Time of Appointment with Psychiatrist: 9:20am Psychiatric Appointment Comment: Zoom *is on waiting list for appt. sooner Therapist Name of Therapist: Unknown Small Machine Bindery Operator Name of Small Machine Bindery Operator: Mauri AVILAU) Post Discharge Appointments Primary Care Physician Name Of Family Doctor: Unknown
[2021-03-17] MEDS: CLOTRIMAZOLE 1% CR 15 GM TUBE EXT SCH (21:48)
[2021-03-18] MEDS: SELEGILINE 6 MG/24 HR TD SCH (09:16)
[2021-03-18] MEDS: LORazepam 2 MG/ML VIAL (IM USE) IM SCH ×2 (09:16→17:18)
[2021-03-18] MEDS: [UNRECOGNIZED DRUG - REMARK] SCH (09:16)
[2021-03-18] MEDS: LORazepam 1 MG TAB PO SCH ×3 (09:34→17:16)
--- NOTE | 2021-03-18 10:07 | Psychiatric Progress Note ---
Date of Service March 18, 2021 Impression / Recommendations Impression The patient is a 40 year old with a history of schizoaffective disorder vs bipolar depression who was admitted for failure of self-care and worsening decompensation at [facility]. The patient is deemed unstable and requires psychiatric hospitalization for diagnostic clarification, safety and stabilization, medication management and development of further coping skills. Initially focussed on Ativan dosing for catatonia but no consistent response to meds over objection. Patient seemed worse on Zyprexa, very poor PO. Started Emsam (MAOI patch on 02/21/21). Will focus on medication over objection and readdress possible ECT or other med trials. 304 status granted. 03/18/21: some response to increase in Ativan and is tolerating without sedation or gait difficulties. Most movement/ambulation remains after lunch. (1) Bipolar disorder with depression: 03/18/21: unable to care for self outside of hospital, continue Emsam patch, will not increase as I do not believe he can follow appropriate dietary restrictions at higher doses. 03/17/21: Ativan 1 mg PO TID (inject up to BID for refusal). 03/16/21: resume IM Ativan for refusal of PO Ativan. 03/15/21: Continue current medications. Making referral to [facility] given slow progression and he is still very far from his baseline which will require extended treatment and thus he will be best served by a longer term treatment approach. 03/14/21: Continue with current medications. Reviewed labwork, K+ improved but still signs of poor nutrition. Elevated ALT could be side effect from Emsam patch (occurs in <1/100 - 05/999 pts), will continue to monitor. may be able to consider transition to a po medication if he remains consistent with accepting po medications but for now Emsam patch benefit is felt to outweigh risk of slight ALT elevation. 03/13/21: Continue with current medications. Supports from [facility] will visit tomorrow. Labwork CMP tomorrow morning to ensure correction of hypokal emia. 03/12/21: Continue with current medications. Discussed with treatment team having his [facility] supports come for a visit and they will visit on . Reviewed his interactions with staff during evening hours/overnight in the chart and continues to show progress with engagement. 03/11/21: Continue with ativan 1 mg BID po, canceled IM as he is agreeing to voluntary po. Given steady improvement over the last 1 week consistent with expected timeline for symptom improvement from Emsam patch he may no longer need longer term care option if improvement persists at this rate. If progress stalls or regression occurs then will reconsider if longer term option for treatment is required. 03/10/21: Reduce ativan to 1 mg BID due to dizziness, low BP and possible fall yesterday. Will discontinue lovenox per his request and since he is now consistently moving around throughout the day and at night, discussed risk of blood clots if he doesn't continue to move around and ambulate frequently which he vocalized understanding of and agreement with. Given improvement in nutritional intake will hold off on rechecking labwork for now, will get repeat labs in 1 week on 03/14. 03/09/21: Reviewed interim progress. Continue Emsam patch and ativan 2mg BID trial-will monitor for excessive sedation. 03/08/21: Ativan 2 mg BID trial. 03/07/21: patient seen by neurology, appreciate input, seems severe vegetative symptoms due to depression though last few doses of Ativan have been more effective than previous. Continue Ativan 1 mg po BID (IM for refusal). Attempt to replete K with powder dissolved in juice. 03/04/21: will explore personal fdc as concerns he will not improve to point he can make meals/meet requirements to return to [facility] during this stay. 03/03/21--continue same. Cannot attempt coadmin with stimulant trial for hypersomnia as contraindicated with MAOI. No medical decompensation that would necessitate referral to medical or seeking court order for ECT. At minimum behaviors are challenging but more appropriate when willing to interact with staff. Need to consider longer term care options given slow progression. 03/02/21--interim care reviewed. Continue EMSAM and Lovenox injection. 03/01/21--Day 9 of Emsam patch. Continuing with behavioral plan to encourage behavioral activation-he was provided with plan with goals of having him come out of his room to eat meals, cooperate with repositioning, stand up when his sheets are changed/or if he prefers to stay in bed until the evening then clean sheets can be provided for him to put on the bed or request help putting on the bed in the evening, and continue independently voiding in his bedside urinal, shower can be started for him but he should be encouraged to get into the shower on his own, encourage him to address basic hygiene by continuing to provide him with easy access to his toothbrush, shampoo, etc. 02/28/21--Day 8 of Emsam patch. Now seeing new pattern of daily food intake which is encouraging. Continues to present with regressed behaviors and refusal to interact during the day. 02/27/21--Continue with Emsam patch. Getting out of bed more in the evenings and eating more. Lack of engagement during the day was volitional-pulling blanket over his head after he saw me enter his room. Also becoming more irritable with staff when he is encouraged to do more on his own for behavioral activation. 02/26/21-Continue with Emsam patch. 304 status granted. Ate last night and interacted with staff but no engagement today. 02/25/21--Continues to demonstrate severe depression with neurovegetative symptoms with no engagement with staff. Behavioral plan challenged by finding a reward/incentive that he enjoys. Continuing to encourage behavioral activation. Petitioned for 304 status with hearing scheduled for tomorrow given ongoing symptom burden and need for ongoing treatment. Remains on lovenox for DVT prophylaxis. Continue with Emsam patch. 02/24/21--Remains isolative and will not engage verbally. Encouragingly is attending slightly more to some of his ADLs, will continue with behavioral plan in hopes to continue encouraging behavioral activation although food does not seem to be a good motivator/reward for him. Will continue to think about other possible motivators for him to help encourage increased activity, po intake and engagement with therapeutic milieu. No signs of HTN or other side effects from MAOI at this point. 02/23/21--Continues to demonstrate neurovegetative symptoms of depression, remaining in bed most of the day but sometimes more engagement in the evenings. Will implement behavioral plan to encourage behavioral activation to treat neurovegetative symptoms in conjunction with Emsam as well as to encourage increased participation with ADLs. Nursing to provide him with tools to help him eat and promote good hygiene (brining in meals, supplies to wash up) and then if he does this independently will bring in ice cream or chips as reward to see if this helps with activation and increased po intake. 02/22/21--neurologic work up with EEG and brain MRI unremarkable, continue Emsam trial. 02/21/21--complex differential--depression with psychotic features in a patient with bipolar disorder most likely, certainly not typcial catatonia. No hx of hyperphagia or hypersexuality known that would suggest Kleine-Hess syndrome. Will proceed with Emsam patch 6 mg trial as only means to administer antidepressant. Will check with an ECT facility to determine if can treat patient if pursue a court order (will await emsam trial first). MRI brain (patient will need various x rays first as can't answer screening questions, no hx of pacemaker on chart). bedside EEG to rule out status epilepticus. 02/19/21--non-formulary request for Emsam patch. Hasn't taken antidepressants for at least 6 weeks. Would reconsider current med doses when this becomes available. without antidepressant he will continue to decompensate medically and is at significant risk of further decompensation. 02/17/21--lytes, Bun/Cr improved; given sleep phase shift desirable to shift antipsychotic to pm meal with IM Zyprexa for refusal. Bedside EEG likely poor quality/low yeild but consider if no improvement. 02/16/21--Reviewed care by Dr. Garces in italics. will d/c IM Ativan in favor of Zyprexa IM for failure to take Latuda. Does take Lorazepam prn PO, adjust dose and frequency and monitor use. Will repeat labs and PO intake so variable and hard to track. 02/09/2021--admitted to [facility]. Ativan 2mg SL TID ordered. Track Is&Os. Vitals BID. 02/10/2021--continue with ativan 2mg TID SL. Showing significant improving in catatonic symptoms since ativan trial last night. If he continues to walk around no need for DVT prophylaxis. Will consider if 302 needs to be converted to 303 based on progress today. 02/11/2021--continue with scheduled ativan. Less engagement today but still eating and drinking. Plan for likely 303 given his inability/reluctance to engage in treatment. Reviewed outside records. 02/12/2021--continues to refuse ativan today and won't engage with anyone nor leave his bed except to use the bathroom and to eat at night. Given some movement in the evening and to the bathroom he doesn't require DVT prophylaxis at this time but this remains a concern should he clinically worsen and will continue to monitor his nutritional and medical status closely. 02/13/2021--placed on 303 status due to ongoing decompensation due to catatonia including refusal of medication, not eating, not drinking, not communicating with anyone and lying in bed all day. Once catatonia begins to improve with treatment will aim to start latuda which helped previously. [place] to require medications over objection for ativan to treat catatonia. If catatonia does not respond quickly to ativan then will consider if DVT prophylaxis should be initiated. 02/14/2021--no significant change in behaviors with additional of scheduled ativan 2 mg BID as medication over objection. Given concern for skin breakdown consult was placed for wound nurse. Given concern for possible DVT and after discussion with hospitalist will begin lovenox 40mg subQ daily. David was able to vocalize consent for this as he remains mute and unable/unwilling to engage but explained the risks, benefits, alternatives and rationale for lovenox and that we will be offering this to him. 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 02/15/2021--Have ruled out catatonia given inconsistent response to ativan trial, multiple observed examples of volitional movement immediately following periods of patient lying in bed and mute. Subsequent catatonia scales have been negative and patient feels that his symptoms represent withdrawn features of anxiety and depression. Given bipolar depression with neurovegetative features will start latuda. Encouragingly he is eating more and drinking more and got out of bed twice last night. Risk Factors Assessment Male: Yes : Yes Do You Have Access To A Gun?: No (in supportive living enviornment, pt unable to answer ) Mental Health Diagnoses: Yes Previous Psychiatric Hospitalization: Yes Protective Factors Assessment Employed: No Interval History Identifying Information 40 yo man with history of catatonia, depression, bipolar disorder vs schizophrenia admitted due to concern for decompensation with failure of self- care at [facility]. Admitted on 302, now 304. Chief Complaint mute with cover over his head. Review of Systems Sleep Information Total Hours of Sleep: 7.5 Sleep Comments: pt on q-15 minute checks Meal Information Percent Meal Consumed - Breakfast: 0 Percent Meal Consumed - Lunch: 75 Percent Meal Consumed - Dinner: 100 Nutrition Comment: Had CIB with ice cream Subjective Subjective Patient was seen & assessed and interval progress reviewed with treatment team. Patient spent more time in the day room with meals, particularly later in day. Generally refuses am meds but then becomes more alert after and ultimately took rest of doses PO yesterday. Only put antifungal cream on one of his feet. Asked staff what he needs to do to get out of here. He has been hospitalized >30 days but is not expressing any interest in therapeutic walk/time outside with staff and his behavior/willingness to ambulate is not consistent enough to be appropriate to go with staff. Physical Exam Psychiatric will not make eye contact, mute, slow to reposition. Vital Signs (Past 24 Hours) Last Vital Signs Temp 36.7 C 03/17/21 22:00 Pulse 88 03/18/21 06:44 Resp 16 03/18/21 06:44 BP 100/66 03/18/21 06:44 Pulse Ox 95 03/14/21 21:10 Results & Data ([facility]) Current Inpatient Medications Current Inpatient Medications: Current Inpatient Medications Acetaminophen (Acetaminophen 325 Mg Tab) 650 mg PO Q4H PRN PRN Reason: Headache or Minor Fever Stop: 04/10/21 10:27 Last Admin: 03/16/21 10:34 Dose: 325 mg Documented by: Al Hydrox/Mg Hydrox/Simethicone (Aluminum/Magnesium Susp 30 Ml Udc) 30 ml PO Q4H PRN PRN Reason: GI Upset Stop: 04/10/21 10:27 Bismuth Subsalicylate (Bismuth Subsalicylate Liqd 236 Ml) 15 ml PO PRN PRN PRN Reason: Loose Stool Stop: 04/10/21 10:27 Clotrimazole (Clotrimazole 1% Cr 15 Gm Tube) 1 appln EXT HS OG Stop: 04/16/21 21:59 Last Admin: 03/17/21 21:48 Dose: 1 appln Documented by: Hydroxyzine HCl (Hydroxyzine Hcl 25 Mg Tab) 50 mg PO HSZ PRN PRN Reason: Insomnia Stop: 04/10/21 10:27 Hydroxyzine HCl (Hydroxyzine Hcl 25 Mg Tab) 25 mg PO Q4H PRN PRN Reason: Anxiety Stop: 04/10/21 10:27 Lorazepam (Lorazepam 1 Mg Tab) 1 mg PO Q6 PRN PRN Reason: Anxiety/Agitation Stop: 04/10/21 08:14 Lorazepam (Lorazepam 2 Mg/Ml Vial (Im Use)) 1 mg IM BIDM OG Stop: 04/15/21 08:59 Last Admin: 03/18/21 09:16 Dose: 1 mg Documented by: Lorazepam (Lorazepam 1 Mg Tab) 1 mg PO TIDM OG Stop: 04/16/21 12:29 Last Admin: 03/18/21 09:34 Dose: Not Given Documented by: Magnesium Hydroxide (Magnesium Hydroxide Susp 30 Ml Udc) 30 ml PO DAILY PRN PRN Reason: Constipation Stop: 04/10/21 10:27 Miscellaneous (Remove Patch Selegiline (Emsam)) 1 ea N/A Q24H OG Stop: 04/10/21 08:58 Last Admin: 03/18/21 09:16 Dose: 1 ea Documented by: Selegiline (Selegiline 6 Mg/24hr Tdsy) 6 mg TD DAILY OG Stop: 04/10/21 08:59 Last Admin: 03/18/21 09:16 Dose: 6 mg Documented by: Sodium Chloride (Sodium Chloride 0.65% Na Soln 45 Ml ([place])) 1 - 2 sprays NA PRN PRN PRN Reason: Nasal Dryness/Congestion Stop: 04/10/21 10:27 Mental Health & Subst Abuse Tx Psychiatrist Name of Psychiatrist: Oniel Negron Psychiatrist's Date of Appointment with Psychiatrist: 03/13/21 Time of Appointment with Psychiatrist: 9:20am Psychiatric Appointment Comment: Zoom *is on waiting list for appt. sooner Therapist Name of Therapist: Unknown Baby Sitter Name of Baby Sitter: Mauri ([id number]) Post Discharge Appointments Primary Care Physician Name Of Family Doctor: Unknown
[2021-03-18] MEDS: CLOTRIMAZOLE 1% CR 15 GM TUBE EXT SCH (21:32)
[2021-03-19] MEDS: SELEGILINE 6 MG/24 HR TD SCH (08:51)
[2021-03-19] MEDS: LORazepam 1 MG TAB PO SCH ×3 (08:56→18:39)
[2021-03-19] MEDS: [UNRECOGNIZED DRUG - REMARK] SCH (08:56)
[2021-03-19] MEDS: LORazepam 2 MG/ML VIAL (IM USE) IM SCH ×2 (08:59→18:16)
--- NOTE | 2021-03-19 09:56 | Psychiatric Progress Note ---
Date of Service March 19, 2021 Impression / Recommendations Impression The patient is a 40 year old with a history of schizoaffective disorder vs bipolar depression who was admitted for failure of self-care and worsening decompensation at [facility]. The patient is deemed unstable and requires psychiatric hospitalization for diagnostic clarification, safety and stabilization, medication management and development of further coping skills. Initially focussed on Ativan dosing for catatonia but no consistent response to meds over objection. Patient seemed worse on Zyprexa, very poor PO. Started Emsam (MAOI patch on 02/21/21). Will focus on medication over objection and readdress possible ECT or other med trials. 304 status granted. 03/19/21: very slow improvement, generally in pm after doses of Ativan. Plan: continue current meds and treatment plan. (1) Bipolar disorder with depression: Risk Factors Assessment Male: Yes : Yes Do You Have Access To A Gun?: No (in supportive living enviornment, pt unable to answer ) Mental Health Diagnoses: Yes Previous Psychiatric Hospitalization: Yes Protective Factors Assessment Employed: No Interval History Identifying Information 40 yo man with history of catatonia, depression, bipolar disorder vs schizophrenia admitted due to concern for decompensation with failure of self- care at [facility]. Admitted on 302, now 304. Chief Complaint mute in interactions with doctor Review of Systems Sleep Information Total Hours of Sleep: 6.5 Sleep Comments: pt on q-15 minute checks Meal Information Percent Meal Consumed - Breakfast: 0 Percent Meal Consumed - Lunch: 100 Percent Meal Consumed - Dinner: 100 Nutrition Comment: Had CIB with ice cream Subjective Subjective Patient was seen & assessed and interval progress reviewed with nursing and social work. Same pattern that will refuse meds in am, respond partially to IM and then be more compliant rest of day. Evening shift ate with peers and initiated approach to nurses station and was more spontaneous in affect. Nurse questions whether he had some fecal incontinence or just poor hygiene yesterday. Patient was unsure. When he does comment still a tendency toward condescending. Will not consent/cooperate with nail care again today. Physical Exam Psychiatric keeps blanket over head to resist interaction/eye contact. Selective mutism and anergia. Vital Signs (Past 24 Hours) Last Vital Signs Temp 36.6 C 03/18/21 22:03 Pulse 88 03/18/21 22:03 Resp 16 03/18/21 22:03 BP 119/79 03/18/21 22:03 Pulse Ox 96 03/18/21 22:03 Results & Data ([facility]) Current Inpatient Medications Current Inpatient Medications: Current Inpatient Medications Acetaminophen (Acetaminophen 325 Mg Tab) 650 mg PO Q4H PRN PRN Reason: Headache or Minor Fever Stop: 04/10/21 10:27 Last Admin: 03/16/21 10:34 Dose: 325 mg Documented by: Al Hydrox/Mg Hydrox/Simethicone (Aluminum/Magnesium Susp 30 Ml Udc) 30 ml PO Q4H PRN PRN Reason: GI Upset Stop: 04/10/21 10:27 Bismuth Subsalicylate (Bismuth Subsalicylate Liqd 236 Ml) 15 ml PO PRN PRN PRN Reason: Loose Stool Stop: 04/10/21 10:27 Clotrimazole (Clotrimazole 1% Cr 15 Gm Tube) 1 appln EXT HS OG Stop: 04/16/21 21:59 Last Admin: 03/18/21 21:32 Dose: 1 appln Documented by: Hydroxyzine HCl (Hydroxyzine Hcl 25 Mg Tab) 50 mg PO HSZ PRN PRN Reason: Insomnia Stop: 04/10/21 10:27 Hydroxyzine HCl (Hydroxyzine Hcl 25 Mg Tab) 25 mg PO Q4H PRN PRN Reason: Anxiety Stop: 04/10/21 10:27 Lorazepam (Lorazepam 1 Mg Tab) 1 mg PO Q6 PRN PRN Reason: Anxiety/Agitation Stop: 04/10/21 08:14 Lorazepam (Lorazepam 2 Mg/Ml Vial (Im Use)) 1 mg IM BIDM OG Stop: 04/15/21 08:59 Last Admin: 03/19/21 08:59 Dose: 1 mg Documented by: Lorazepam (Lorazepam 1 Mg Tab) 1 mg PO TIDM OG Stop: 04/16/21 12:29 Last Admin: 03/19/21 08:56 Dose: Not Given Documented by: Magnesium Hydroxide (Magnesium Hydroxide Susp 30 Ml Udc) 30 ml PO DAILY PRN PRN Reason: Constipation Stop: 04/10/21 10:27 Miscellaneous (Remove Patch Selegiline (Emsam)) 1 ea N/A Q24H GO Stop: 04/10/21 08:58 Last Admin: 03/19/21 08:56 Dose: 1 ea Documented by: Selegiline (Selegiline 6 Mg/24hr Tdsy) 6 mg TD DAILY OG Stop: 04/10/21 08:59 Last Admin: 03/19/21 08:51 Dose: 6 mg Documented by: Sodium Chloride (Sodium Chloride 0.65% Na Soln 45 Ml ([place])) 1 - 2 sprays NA PRN PRN PRN Reason: Nasal Dryness/Congestion Stop: 04/10/21 10:27 Mental Health & Subst Abuse Tx Psychiatrist Name of Psychiatrist: Oniel Negron Psychiatrist's Date of Appointment with Psychiatrist: 03/13/21 Time of Appointment with Psychiatrist: 9:20am Psychiatric Appointment Comment: Zoom *is on waiting list for appt. sooner Therapist Name of Therapist: Unknown Surveyor Instrument Assistant Name of Surveyor Instrument Assistant: Mauri GunterBSU) Post Discharge Appointments Primary Care Physician Name Of Family Doctor: Unknown
[2021-03-19] MEDS: CLOTRIMAZOLE 1% CR 15 GM TUBE EXT SCH (21:03)
--- NOTE | 2021-03-20 06:44 | Psychiatric Progress Note ---
Date of Service March 20, 2021 Impression / Recommendations Impression The patient is a 40 year old with a history of schizoaffective disorder vs bipolar depression who was admitted for failure of self-care and [facility] at [facility] The patient is deemed unstable and requires psychiatric hospitalization for diagnostic clarification, safety and stabilization, medication management and development of further coping skills. Initially focussed on Ativan dosing for catatonia but no consistent response to meds over objection. Patient seemed worse on Zyprexa, very poor PO. Started Emsam (MAOI patch on 02/21/21). Will focus on medication over objection and readdress possible ECT or other med trials. 304 status granted. 03/20/21: regressed past 24 hrs . Plan: continue current meds and treatment plan, consider restart Lovenox, consider 2nd opinion for trial Haldol IM over objection. (1) Bipolar disorder with depression: Risk Factors Assessment Male: Yes : Yes Do You Have Access To A Gun?: No (in supportive living enviornment, pt unable to answer ) Mental Health Diagnoses: Yes Previous Psychiatric Hospitalization: Yes Protective Factors Assessment Employed: No Interval History Identifying Information 40 yo man with history of catatonia, depression, bipolar disorder vs schizophrenia admitted due to concern for decompensation with failure of self- care at [facility]. Admitted on 302, now 304. Chief Complaint mute Review of Systems Sleep Information Total Hours of Sleep: 6.5 Sleep Comments: pt on q-15 minute checks Meal Information Percent Meal Consumed - Breakfast: 0 Percent Meal Consumed - Lunch: 0 Percent Meal Consumed - Dinner: 0 Nutrition Comment: Had CIB with ice cream Subjective Subjective Patient was seen & assessed and interval progress reviewed with treatment team. Patient continues with pattern of few days where more interactive then more reclusive to room. Patient did not get out of bed much yesterday so PO dropped. Physical Exam Psychiatric mute, will not make eye contact, psychomotor retardation. Vital Signs (Past 24 Hours) Last Vital Signs Temp 37.0 C 03/19/21 22:16 Pulse 79 03/19/21 22:16 Resp 16 03/19/21 22:16 BP 131/78 03/19/21 22:16 Pulse Ox 96 03/18/21 22:03 Results & Data ([facility]) Current Inpatient Medications Current Inpatient Medications: Current Inpatient Medications Acetaminophen (Acetaminophen 325 Mg Tab) 650 mg PO Q4H PRN PRN Reason: Headache or Minor Fever Stop: 04/10/21 10:27 Last Admin: 03/16/21 10:34 Dose: 325 mg Documented by: Al Hydrox/Mg Hydrox/Simethicone (Aluminum/Magnesium Susp 30 Ml Udc) 30 ml PO Q4H PRN PRN Reason: GI Upset Stop: 04/10/21 10:27 Bismuth Subsalicylate (Bismuth Subsalicylate Liqd 236 Ml) 15 ml PO PRN PRN PRN Reason: Loose Stool Stop: 04/10/21 10:27 Clotrimazole (Clotrimazole 1% Cr 15 Gm Tube) 1 appln EXT HS OG Stop: 04/16/21 21:59 Last Admin: 03/19/21 21:03 Dose: 1 appln Documented by: Hydroxyzine HCl (Hydroxyzine Hcl 25 Mg Tab) 50 mg PO HSZ PRN PRN Reason: Insomnia Stop: 04/10/21 10:27 Hydroxyzine HCl (Hydroxyzine Hcl 25 Mg Tab) 25 mg PO Q4H PRN PRN Reason: Anxiety Stop: 04/10/21 10:27 Lorazepam (Lorazepam 1 Mg Tab) 1 mg PO Q6 PRN PRN Reason: Anxiety/Agitation Stop: 04/10/21 08:14 Lorazepam (Lorazepam 2 Mg/Ml Vial (Im Use)) 1 mg IM BIDM OG Stop: 04/15/21 08:59 Last Admin: 03/19/21 18:16 Dose: 1 mg Documented by: Lorazepam (Lorazepam 1 Mg Tab) 1 mg PO TIDM OG Stop: 04/16/21 12:29 Last Admin: 03/19/21 18:39 Dose: Not Given Documented by: Magnesium Hydroxide (Magnesium Hydroxide Susp 30 Ml Udc) 30 ml PO DAILY PRN PRN Reason: Constipation Stop: 04/10/21 10:27 Miscellaneous (Remove Patch Selegiline (Emsam)) 1 ea N/A Q24H OG Stop: 04/10/21 08:58 Last Admin: 03/19/21 08:56 Dose: 1 ea Documented by: Selegiline (Selegiline 6 Mg/24hr Tdsy) 6 mg TD DAILY OG Stop: 04/10/21 08:59 Last Admin: 03/19/21 08:51 Dose: 6 mg Documented by: Sodium Chloride (Sodium Chloride 0.65% Na Soln 45 Ml ([place])) 1 - 2 sprays NA PRN PRN PRN Reason: Nasal Dryness/Congestion Stop: 04/10/21 10:27 Mental Health & Subst Abuse Tx Psychiatrist Name of Psychiatrist: Oneil Negron Psychiatrist's Date of Appointment with Psychiatrist: 03/13/21 Time of Appointment with Psychiatrist: 9:20am Psychiatric Appointment Comment: Zoom *is on waiting list for appt. sooner Therapist Name of Therapist: Unknown Utility Locate Technician Name of Utility Locate Technician: Mauri (BSU) Post Discharge Appointments Primary Care Physician Name Of Family Doctor: Unknown
[2021-03-20] MEDS: LORazepam 1 MG TAB PO SCH ×3 (08:56→16:58)
[2021-03-20] MEDS: SELEGILINE 6 MG/24 HR TD SCH (08:56)
[2021-03-20] MEDS: LORazepam 2 MG/ML VIAL (IM USE) IM SCH ×2 (08:57→17:12)
[2021-03-20] MEDS: [UNRECOGNIZED DRUG - REMARK] SCH (09:06)
[2021-03-20] MEDS: CLOTRIMAZOLE 1% CR 15 GM TUBE EXT SCH (21:35)
[2021-03-21] MEDS: LORazepam 2 MG/ML VIAL (IM USE) IM SCH ×2 (08:58→17:00)
[2021-03-21] MEDS: LORazepam 1 MG TAB PO SCH ×3 (08:58→16:59)
[2021-03-21] MEDS: SELEGILINE 6 MG/24 HR TD SCH (08:58)
[2021-03-21] MEDS: [UNRECOGNIZED DRUG - REMARK] SCH (09:05)
--- NOTE | 2021-03-21 13:40 | Psychiatric Progress Note ---
Date of Service March 21, 2021 Impression / Recommendations Impression The patient is a 40 year old with a history of schizoaffective disorder vs bipolar depression who was admitted for failure of self-care and worsening decompensation at [facility]. The patient is deemed unstable and requires psychiatric hospitalization for diagnostic clarification, safety and stabilization, medication management and development of further coping skills. Initially focussed on Ativan dosing for catatonia but no consistent response to meds over objection. Patient seemed worse on Zyprexa, very poor PO. Started Emsam (MAOI patch on 02/21/21). Will focus on medication over objection and readdress possible ECT or other med trials. 304 status granted. 03/20/21: mute, poor PO Plan: continue current meds and treatment plan, consider restart Lovenox, consider 2nd opinion for trial Haldol IM over objection. (1) Bipolar disorder with depression: Risk Factors Assessment Male: Yes : Yes Do You Have Access To A Gun?: No (in supportive living enviornment, pt unable to answer ) Mental Health Diagnoses: Yes Previous Psychiatric Hospitalization: Yes Protective Factors Assessment Employed: No Interval History Identifying Information 40 yo man with history of catatonia, depression, bipolar disorder vs schizophrenia admitted due to concern for decompensation with failure of self- care at [facility]. Admitted on 302, now 304. Chief Complaint mute Review of Systems Sleep Information Total Hours of Sleep: 6.5 Sleep Comments: pt on q-15 minute checks Meal Information Percent Meal Consumed - Breakfast: 0 Percent Meal Consumed - Lunch: 0 Percent Meal Consumed - Dinner: 0 Nutrition Comment: Had CIB with ice cream Subjective Subjective Patient was seen & assessed and interval progress reviewed with nursing and social work. David was out of bed to refrigerator once per staff and coughed or sneezed in it. Less interactive with staff and poor PO as is his pattern. Resistant to nail care. Physical Exam Psychiatric mute, poor eye contact, no posturing or waxy flexibility. Vital Signs (Past 24 Hours) Last Vital Signs Temp 37.2 C 03/20/21 22:00 Pulse 98 H 03/21/21 06:49 Resp 16 03/21/21 06:49 BP 117/80 03/21/21 06:49 Pulse Ox 96 03/18/21 22:03 Results & Data ([facility]) Current Inpatient Medications Current Inpatient Medications: Current Inpatient Medications Acetaminophen (Acetaminophen 325 Mg Tab) 650 mg PO Q4H PRN PRN Reason: Headache or Minor Fever Stop: 04/10/21 10:27 Last Admin: 03/16/21 10:34 Dose: 325 mg Documented by: Al Hydrox/Mg Hydrox/Simethicone (Aluminum/Magnesium Susp 30 Ml Udc) 30 ml PO Q4H PRN PRN Reason: GI Upset Stop: 04/10/21 10:27 Bismuth Subsalicylate (Bismuth Subsalicylate Liqd 236 Ml) 15 ml PO PRN PRN PRN Reason: Loose Stool Stop: 04/10/21 10:27 Clotrimazole (Clotrimazole 1% Cr 15 Gm Tube) 1 appln EXT HS OG Stop: 04/16/21 21:59 Last Admin: 03/20/21 21:35 Dose: Not Given Documented by: Hydroxyzine HCl (Hydroxyzine Hcl 25 Mg Tab) 50 mg PO HSZ PRN PRN Reason: Insomnia Stop: 04/10/21 10:27 Hydroxyzine HCl (Hydroxyzine Hcl 25 Mg Tab) 25 mg PO Q4H PRN PRN Reason: Anxiety Stop: 04/10/21 10:27 Lorazepam (Lorazepam 1 Mg Tab) 1 mg PO Q6 PRN PRN Reason: Anxiety/Agitation Stop: 04/10/21 08:14 Lorazepam (Lorazepam 2 Mg/Ml Vial (Im Use)) 1 mg IM BIDM OG Stop: 04/15/21 08:59 Last Admin: 03/21/21 08:58 Dose: 1 mg Documented by: Lorazepam (Lorazepam 1 Mg Tab) 1 mg PO TIDM OG Stop: 04/16/21 12:29 Last Admin: 03/21/21 12:25 Dose: Not Given Documented by: Magnesium Hydroxide (Magnesium Hydroxide Susp 30 Ml Udc) 30 ml PO DAILY PRN PRN Reason: Constipation Stop: 04/10/21 10:27 Miscellaneous (Remove Patch Selegiline (Emsam)) 1 ea N/A Q24H OG Stop: 04/10/21 08:58 Last Admin: 03/21/21 09:05 Dose: 1 ea Documented by: Selegiline (Selegiline 6 Mg/24hr Tdsy) 6 mg TD DAILY OG Stop: 04/10/21 08:59 Last Admin: 03/21/21 08:58 Dose: 6 mg Documented by: Sodium Chloride (Sodium Chloride 0.65% Na Soln 45 Ml ([place])) 1 - 2 sprays NA PRN PRN PRN Reason: Nasal Dryness/Congestion Stop: 04/10/21 10:27 Mental Health & Subst Abuse Tx Psychiatrist Name of Psychiatrist: Oniel Negron Psychiatrist's Date of Appointment with Psychiatrist: 03/13/21 Time of Appointment with Psychiatrist: 9:20am Psychiatric Appointment Comment: Zoom *is on waiting list for appt. sooner Therapist Name of Therapist: Unknown Safety Lead Name of Safety Lead: Mauri (DIRKU) Post Discharge Appointments Primary Care Physician Name Of Family Doctor: Unknown
[2021-03-21] MEDS: CLOTRIMAZOLE 1% CR 15 GM TUBE EXT SCH (21:15)
[2021-03-22] MEDS: [UNRECOGNIZED DRUG - REMARK] SCH (10:05)
[2021-03-22] MEDS: SELEGILINE 6 MG/24 HR TD SCH (10:05)
[2021-03-22] MEDS: LORazepam 2 MG/ML VIAL (IM USE) IM SCH ×2 (10:11→17:07)
[2021-03-22] MEDS: LORazepam 1 MG TAB PO SCH ×3 (10:11→17:08)
--- NOTE | 2021-03-22 15:07 | Psychiatric Progress Note ---
Date of Service March 22, 2021 Impression / Recommendations Impression The patient is a 40 year old with a history of schizoaffective disorder vs bipolar depression who was [facility]. The patient is deemed unstable and requires psychiatric hospitalization for diagnostic clarification, safety and stabilization, medication management and development of further coping skills. Initially focussed on Ativan dosing for catatonia but no consistent response to meds over objection. Patient seemed worse on Zyprexa, very poor PO. Started Emsam (MAOI patch on 02/21/21). Will focus on medication over objection and readdress possible ECT or other med trials. 304 status granted. 03/22/21: remains regressed compared to earlier in the week. (1) Bipolar disorder with depression: 03/22/21: labs in am and resume Lovenox given regression past 3 days. 03/18/21: unable to care for self outside of hospital, continue Emsam patch, will not increase as I do not believe he can follow appropriate dietary restrictions at higher doses. 03/17/21: Ativan 1 mg PO TID (inject up to BID for refusal). 03/16/21: resume IM Ativan for refusal of PO Ativan. 03/15/21: Continue current medications. Making referral to [facility] given slow progression and he is still very far from his baseline which will require extended treatment and thus he will be best served by a longer term treatment approach. 03/14/21: Continue with current medications. Reviewed labwork, K+ improved but still signs of poor nutrition. Elevated ALT could be side effect from Emsam patch (occurs in <1/100 - 05/999 pts), will continue to monitor. may be able to consider transition to a po medication if he remains consistent with accepting po medications but for now Emsam patch benefit is felt to outweigh risk of slight ALT elevation. 03/13/21: Continue with current medications. Supports from [employer] will visit tomorrow. Labwork CMP tomorrow morning to ensure correction of hypokalemia. 03/12/21: Continue with current medications. Discussed with treatment team having his prison supports come for a visit and they will visit on . Reviewed his interactions with staff during evening hours/overnight in the chart and continues to show progress with engagement. 03/11/21: Continue with ativan 1 mg BID po, canceled IM as he is agreeing to voluntary po. Given steady improvement over the last 1 week consistent with expected timeline for symptom improvement from Emsam patch he may no longer need longer term care option if improvement persists at this rate. If progress stalls or regression occurs then will reconsider if longer term option for treatment is required. 03/10/21: Reduce ativan to 1 mg BID due to dizziness, low BP and possible fall yesterday. Will discontinue lovenox per his request and since he is now consistently moving around throughout the day and at night, discussed risk of blood clots if he doesn't continue to move around and ambulate frequently which he vocalized understanding of and agreement with. Given improvement in nutritional intake will hold off on rechecking labwork for now, will get repeat labs in 1 week on 03/14. 03/09/21: Reviewed interim progress. Continue Emsam patch and ativan 2mg BID trial-will monitor for excessive sedation. 03/08/21: Ativan 2 mg BID trial. 03/07/21: patient seen by neurology, appreciate input, seems severe vegetative symptoms due to depression though last few doses of Ativan have been more effective than previous. Continue Ativan 1 mg po BID (IM for refusal). Attempt to replete K with powder dissolved in juice. 03/04/21: will explore personal retirement as concerns he will not improve to point he can make meals/meet requirements to return to [facility] during this stay. 03/03/21--continue same. Cannot attempt coadmin with stimulant trial for hypersomnia as contraindicated with MAOI. No medical decompensation that would necessitate referral to medical or seeking court order for ECT. At minimum behaviors are challenging but more appropriate when willing to interact with staff. Need to consider longer term care options given slow progression. 03/02/21--interim care reviewed. Continue EMSAM and Lovenox injection. 03/01/21--Day 9 of Emsam patch. Continuing with behavioral plan to encourage behavioral activation-he was provided with plan with goals of having him come out of his room to eat meals, cooperate with repositioning, stand up when his sheets are changed/or if he prefers to stay in bed until the evening then clean sheets can be provided for him to put on the bed or request help putting on the bed in the evening, and continue independently voiding in his bedside urinal, shower can be started for him but he should be encouraged to get into the shower on his own, encourage him to address basic hygiene by continuing to provide him with easy access to his toothbrush, shampoo, etc. 02/28/21--Day 8 of Emsam patch. Now seeing new pattern of daily food intake which is encouraging. Continues to present with regressed behaviors and refusal to interact during the day. 02/27/21--Continue with Emsam patch. Getting out of bed more in the evenings and eating more. Lack of engagement during the day was volitional-pulling blanket over his head after he saw me enter his room. Also becoming more irritable with staff when he is encouraged to do more on his own for behavioral activation. 02/26/21-Continue with Emsam patch. 304 status granted. Ate last night and interacted with staff but no engagement today. 02/25/21--Continues to demonstrate severe depression with neurovegetative symptoms with no engagement with staff. Behavioral plan challenged by finding a reward/incentive that he enjoys. Continuing to encourage behavioral activation. Petitioned for 304 status with hearing scheduled for tomorrow given ongoing symptom burden and need for ongoing treatment. Remains on lovenox for DVT prophylaxis. Continue with Emsam patch. 02/24/21--Remains isolative and will not engage verbally. Encouragingly is attending slightly more to some of his ADLs, will continue with behavioral plan in hopes to continue encouraging behavioral activation although food does not seem to be a good motivator/reward for him. Will continue to think about other possible motivators for him to help encourage increased activity, po intake and engagement with therapeutic milieu. No signs of HTN or other side effects from MAOI at this point. 02/23/21--Continues to demonstrate neurovegetative symptoms of depression, remaining in bed most of the day but sometimes more engagement in the evenings. Will implement behavioral plan to encourage behavioral activation to treat neurovegetative symptoms in conjunction with Emsam as well as to encourage increased participation with ADLs. Nursing to provide him with tools to help him eat and promote good hygiene (brining in meals, supplies to wash up) and then if he does this independently will bring in ice cream or chips as reward to see if this helps with activation and increased po intake. 02/22/21--neurologic work up with EEG and brain MRI unremarkable, continue Emsam trial. 02/21/21--complex differential--depression with psychotic features in a patient with bipolar disorder most likely, certainly not typcial catatonia. No hx of hyperphagia or hypersexuality known that would suggest Kleine-Hess syndrome. Will proceed with Emsam patch 6 mg trial as only means to administer antidepressant. Will check with an ECT facility to determine if can treat patient if pursue a court order (will await emsam trial first). MRI brain (patient will need various x rays first as can't answer screening questions, no hx of pacemaker on chart). bedside EEG to rule out status epilepticus. 02/19/21--non-formulary request for Emsam patch. Hasn't taken antidepressants for at least 6 weeks. Would reconsider current med doses when this becomes available. without antidepressant he will continue to decompensate medically and is at significant risk of further decompensation. 02/17/21--lytes, Bun/Cr improved; given sleep phase shift desirable to shift antipsychotic to pm meal with IM Zyprexa for refusal. Bedside EEG likely poor quality/low yeild but consider if no improvement. 02/16/21--Reviewed care by Dr. Garces in italics. will d/c IM Ativan in favor of Zyprexa IM for failure to take Latuda. Does take Lorazepam prn PO, adjust dose and frequency and monitor use. Will repeat labs and PO intake so variable and hard to track. 02/09/2021--admitted to [facility]. Ativan 2mg SL TID ordered. Track Is&Os. Vitals BID. 02/10/2021--continue with ativan 2mg TID SL. Showing significant improving in catatonic symptoms since ativan trial last night. If he continues to walk around no need for DVT prophylaxis. Will consider if 302 needs to be converted to 303 based on progress today. 02/11/2021--continue with scheduled ativan. Less engagement today but still eating and drinking. Plan for likely 303 given his inability/reluctance to engage in treatment. Reviewed outside records. 02/12/2021--continues to refuse ativan today and won't engage with anyone nor leave his bed except to use the bathroom and to eat at night. Given some m ovement in the evening and to the bathroom he doesn't require DVT prophylaxis at this time but this remains a concern should he clinically worsen and will continue to monitor his nutritional and medical status closely. 02/13/2021--placed on 303 status due to ongoing decompensation due to catatonia including refusal of medication, not eating, not drinking, not communicating with anyone and lying in bed all day. Once catatonia begins to improve with treatment will aim to start latuda which helped previously. [place] to require medications over objection for ativan to treat catatonia. If catatonia does not respond quickly to ativan then will consider if DVT prophylaxis should be initiated. 02/14/2021--no significant change in behaviors with additional of scheduled ativan 2 mg BID as medication over objection. Given concern for skin breakdown consult was placed for wound nurse. Given concern for possible DVT and after discussion with hospitalist will begin lovenox 40mg subQ daily. David was able to vocalize consent for this as he remains mute and unable/unwilling to engage but explained the risks, benefits, alternatives and rationale for lovenox and that we will be offering this to him. 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 02/15/2021--Have ruled out catatonia given inconsistent response to ativan trial, multiple observed examples of volitional movement immediately following periods of patient lying in bed and mute. Subsequent catatonia scales have been negative and patient feels that his symptoms represent withdrawn features of anxiety and depression. Given bipolar depression with neurovegetative features will start latuda. Encouragingly he is eating more and drinking more and got out of bed twice last night. Risk Factors Assessment Male: Yes : Yes Do You Have Access To A Gun?: No (in supportive living enviornment, pt unable to answer ) Mental Health Diagnoses: Yes Previous Psychiatric Hospitalization: Yes Protective Factors Assessment Employed: No Interval History Identifying Information 40 yo man with history of catatonia, depression, bipolar disorder vs schizophrenia admitted due to concern for decompensation with failure of self- care at [facility]. Admitted on 302, now 304. Chief Complaint mute Review of Systems Sleep Information Total Hours of Sleep: 7.75 Sleep Comments: pt on q-15 minute checks Meal Information Percent Meal Consumed - Breakfast: 0 Percent Meal Consumed - Lunch: 0 Percent Meal Consumed - Dinner: 0 Nutrition Comment: Had CIB with ice cream Subjective Subjective Patient was seen & assessed and interval progress reviewed with treatment team. Only out of bed once yesterday. He would not engage with staff. Poor PO. Reviewed with patient (with his eyes open following movement) that he would qualify for time outside, must be bored, etc, no reply. Physical Exam Psychiatric limited, everts gaze, mute. stares at ceiling. No abnormal motor movements. Vital Signs (Past 24 Hours) Last Vital Signs Temp 36.5 C 03/22/21 14:38 Pulse 94 H 03/22/21 14:38 Resp 16 03/22/21 14:38 BP 133/84 03/22/21 14:38 Pulse Ox 96 03/18/21 22:03 Results & Data ([facility]) Current Inpatient Medications Current Inpatient Medications: Current Inpatient Medications Acetaminophen (Acetaminophen 325 Mg Tab) 650 mg PO Q4H PRN PRN Reason: Headache or Minor Fever Stop: 04/10/21 10:27 Last Admin: 03/16/21 10:34 Dose: 325 mg Documented by: Al Hydrox/Mg Hydrox/Simethicone (Aluminum/Magnesium Susp 30 Ml Udc) 30 ml PO Q4H PRN PRN Reason: GI Upset Stop: 04/10/21 10:27 Bismuth Subsalicylate (Bismuth Subsalicylate Liqd 236 Ml) 15 ml PO PRN PRN PRN Reason: Loose Stool Stop: 04/10/21 10:27 Clotrimazole (Clotrimazole 1% Cr 15 Gm Tube) 1 appln EXT HS OG Stop: 04/16/21 21:59 Last Admin: 03/21/21 21:15 Dose: Not Given Documented by: Enoxaparin Sodium (Enoxaparin Inj 40 Mg/0.4 Ml Syr) 40 mg SQ QAM OG Stop: 04/22/21 08:59 Hydroxyzine HCl (Hydroxyzine Hcl 25 Mg Tab) 50 mg PO HSZ PRN PRN Reason: Insomnia Stop: 04/10/21 10:27 Hydroxyzine HCl (Hydroxyzine Hcl 25 Mg Tab) 25 mg PO Q4H PRN PRN Reason: Anxiety Stop: 04/10/21 10:27 Lorazepam (Lorazepam 1 Mg Tab) 1 mg PO Q6 PRN PRN Reason: Anxiety/Agitation Stop: 04/10/21 08:14 Lorazepam (Lorazepam 2 Mg/Ml Vial (Im Use)) 1 mg IM BIDM OG Stop: 04/15/21 08:59 Last Admin: 03/22/21 10:11 Dose: 1 mg Documented by: Lorazepam (Lorazepam 1 Mg Tab) 1 mg PO TIDM OG Stop: 04/16/21 12:29 Last Admin: 03/22/21 12:39 Dose: Not Given Documented by: Magnesium Hydroxide (Magnesium Hydroxide Susp 30 Ml Udc) 30 ml PO DAILY PRN PRN Reason: Constipation Stop: 04/10/21 10:27 Miscellaneous (Remove Patch Selegiline (Emsam)) 1 ea N/A Q24H OG Stop: 04/10/21 08:58 Last Admin: 03/22/21 10:05 Dose: 1 ea Documented by: Selegiline (Selegiline 6 Mg/24hr Tdsy) 6 mg TD DAILY OG Stop: 04/10/21 08:59 Last Admin: 03/22/21 10:05 Dose: 6 mg Documented by: Sodium Chloride (Sodium Chloride 0.65% Na Soln 45 Ml ([place])) 1 - 2 sprays NA PRN PRN PRN Reason: Nasal Dryness/Congestion Stop: 04/10/21 10:27 Mental Health & Subst Abuse Tx Psychiatrist Name of Psychiatrist: Oniel Negron Psychiatrist's Date of Appointment with Psychiatrist: 03/13/21 Time of Appointment with Psychiatrist: 9:20am Psychiatric Appointment Comment: Zoom *is on waiting list for appt. sooner Therapist Name of Therapist: Unknown Lead Based Paint Technician Name of Lead Based Paint Technician: Mauri AVILAU) Post Discharge Appointments Primary Care Physician Name Of Family Doctor: Unknown
[2021-03-22] MEDS: CLOTRIMAZOLE 1% CR 15 GM TUBE EXT SCH (21:34)
[2021-03-23 08:54] LABS: Albumin Level 3.3 gm/dl (3.4-5.0); BUN Creatinine Ratio 15.3 (10-20); Calcium 8.7 mg/dl (8.5-10.1); Creatinine Clr Calc Pharmacy 140.9 ml/min; Est GFR (African American) 121.8 ml/min
[2021-03-23 08:56] LABS: Bilirubin,Total 0.9 mg/dl (0.2-1); Globulin 3.5 gm/dl (2.5-4.0); Total Protein 6.8 gm/dl (6.4-8.2)
[2021-03-23] MEDS: SELEGILINE 6 MG/24 HR TD SCH (09:04)
[2021-03-23] MEDS: [UNRECOGNIZED DRUG - REMARK] SCH (09:05)
[2021-03-23] MEDS: ENOXAPARIN INJ 40 MG/0.4 ML SYR SQ SCH (09:15)
[2021-03-23] MEDS: LORazepam 1 MG TAB PO SCH ×3 (09:27→17:25)
[2021-03-23] MEDS: LORazepam 2 MG/ML VIAL (IM USE) IM SCH ×2 (09:27→17:24)
--- NOTE | 2021-03-23 15:37 | Psychiatric Progress Note ---
Date of Service March 23, 2021 Impression / Recommendations Impression The patient is a 40 year old with a history of schizoaffective disorder vs bipolar depression who was admitted for failure of self-care and worsening decompensation at senior care. The patient is deemed unstable and requires psychiatric hospitalization for diagnostic clarification, safety and stabilization, medication management and development of further coping skills. Initially focussed on Ativan dosing for catatonia but no consistent response to meds over objection. Patient seemed worse on Zyprexa, very poor PO. Started Emsam (MAOI patch on 02/21/21). Will focus on medication over objection and readdress possible ECT or other med trials. 304 status granted. 03/23/21: showing ongoing regression. Plan: reviewed interim progress from Dr. Arevalo's notes, labwork done this morning. (1) Bipolar disorder with depression: 03/23/21: labwork done today and reviewed no significant changes from prior labwork, still has elevated Cl. Continue with lovenox, emsam patch, and ativan 1 mg po TID (with BID IM for refusal) 03/22/21: labs in am and resume Lovenox given regression past 3 days. 03/18/21: unable to care for self outside of hospital, continue Emsam patch, will not increase as I do not believe he can follow appropriate dietary restrictions at higher doses. 03/17/21: Ativan 1 mg PO TID (inject up to BID for refusal). 03/16/21: resume IM Ativan for refusal of PO Ativan. 03/15/21: Continue current medications. Making referral to [facility] given slow progression and he is still very far from his baseline which will require extended treatment and thus he will be best served by a longer term treatment approach. 03/14/21: Continue with current medications. Reviewed labwork, K+ improved but still signs of poor nutrition. Elevated ALT could be side effect from Emsam patch (occurs in <1/100 - 05/999 pts), will continue to monitor. may be able to consider transition to a po medication if he remains consistent with accepting po medications but for now Emsam patch benefit is felt to outweigh risk of slight ALT elevation. 03/13/21: Continue with current medications. Supports from [employer] will visit tomorrow. Labwork CMP tomorrow morning to ensure correction of hypokalemia. 03/12/21: Continue with current medications. Discussed with treatment team having his senior care supports come for a visit and they will visit on . Reviewed his interactions with staff during evening hours/overnight in the chart and continues to show progress with engagement. 03/11/21: Continue with ativan 1 mg BID po, canceled IM as he is agreeing to voluntary po. Given steady improvement over the last 1 week consistent with expected timeline for symptom improvement from Emsam patch he may no longer need longer term care option if improvement persists at this rate. If progress stalls or regression occurs then will reconsider if longer term option for treatment is required. 03/10/21: Reduce ativan to 1 mg BID due to dizziness, low BP and possible fall yesterday. Will discontinue lovenox per his request and since he is now consistently moving around throughout the day and at night, discussed risk of blood clots if he doesn't continue to move around and ambulate frequently which he vocalized understanding of and agreement with. Given improvement in nutritional intake will hold off on rechecking labwork for now, will get repeat labs in 1 week on 03/14. 03/09/21: Reviewed interim progress. Continue Emsam patch and ativan 2mg BID trial-will monitor for excessive sedation. 03/08/21: Ativan 2 mg BID trial. 03/07/21: patient seen by neurology, appreciate input, seems severe vegetative symptoms due to depression though last few doses of Ativan have been more effective than previous. Continue Ativan 1 mg po BID (IM for refusal). Attempt to replete K with powder dissolved in juice. 03/04/21: will explore personal [facility] as concerns he will not improve to point he can make meals/meet requirements to return to [facility] during this stay. 03/03/21--continue same. Cannot attempt coadmin with stimulant trial for hypersomnia as contraindicated with MAOI. No medical decompensation that would necessitate referral to medical or seeking court order for ECT. At minimum behaviors are challenging but more appropriate when willing to interact with staff. Need to consider longer term care options given slow progression. 03/02/21--interim care reviewed. Continue EMSAM and Lovenox injection. 03/01/21--Day 9 of Emsam patch. Continuing with behavioral plan to encourage behavioral activation-he was provided with plan with goals of having him come out of his room to eat meals, cooperate with repositioning, stand up when his sheets are changed/or if he prefers to stay in bed until the evening then clean sheets can be provided for him to put on the bed or request help putting on the bed in the evening, and continue independently voiding in his bedside urinal, shower can be started for him but he should be encouraged to get into the shower on his own, encourage him to address basic hygiene by continuing to provide him with easy access to his toothbrush, shampoo, etc. 02/28/21--Day 8 of Emsam patch. Now seeing new pattern of daily food intake which is encouraging. Continues to present with regressed behaviors and refusal to interact during the day. 02/27/21--Continue with Emsam patch. Getting out of bed more in the evenings and eating more. Lack of engagement during the day was volitional-pulling blanket over his head after he saw me enter his room. Also becoming more irritable with staff when he is encouraged to do more on his own for behavioral activation. 02/26/21-Continue with Emsam patch. 304 status granted. Ate last night and interacted with staff but no engagement today. 02/25/21--Continues to demonstrate severe depression with neurovegetative symptoms with no engagement with staff. Behavioral plan challenged by finding a reward/incentive that he enjoys. Continuing to encourage behavioral activation. Petitioned for 304 status with hearing scheduled for tomorrow given ongoing symptom burden and need for ongoing treatment. Remains on lovenox for DVT prophylaxis. Continue with Emsam patch. 02/24/21--Remains isolative and will not engage verbally. Encouragingly is attending slightly more to some of his ADLs, will continue with behavioral plan in hopes to continue encouraging behavioral activation although food does not seem to be a good motivator/reward for him. Will continue to think about other possible motivators for him to help encourage increased activity, po intake and engagement with therapeutic milieu. No signs of HTN or other side effects from MAOI at this point. 02/23/21--Continues to demonstrate neurovegetative symptoms of depression, remaining in bed most of the day but sometimes more engagement in the evenings. Will implement behavioral plan to encourage behavioral activation to treat neurovegetative symptoms in conjunction with Emsam as well as to encourage increased participation with ADLs. Nursing to provide him with tools to help him eat and promote good hygiene (brining in meals, supplies to wash up) and then if he does this independently will bring in ice cream or chips as reward to see if this helps with activation and increased po intake. 02/22/21--neurologic work up with EEG and brain MRI unremarkable, continue Emsam trial. 02/21/21--complex differential--depression with psychotic features in a patient with bipolar disorder most likely, certainly not typcial catatonia. No hx of hyperphagia or hypersexuality known that would suggest Kleine-Hess syndrome. Will proceed with Emsam patch 6 mg trial as only means to administer antidepressant. Will check with an ECT facility to determine if can treat patient if pursue a court order (will await emsam trial first). MRI brain (patient will need various x rays first as can't answer screening questions, no hx of pacemaker on chart). bedside EEG to rule out status epilepticus. 02/19/21--non-formulary request for Emsam patch. Hasn't taken antidepressants for at least 6 weeks. Would reconsider current med doses when this becomes available. without antidepressant he will continue to decompensate medically and is at significant risk of further decompensation. 02/17/21--lytes, Bun/Cr improved; given sleep phase shift desirable to shift antipsychotic to pm meal with IM Zyprexa for refusal. Bedside EEG likely poor quality/low yeild but consider if no improvement. 02/16/21--Reviewed care by Dr. Garces in italics. will d/c IM Ativan in favor of Zyprexa IM for failure to take Latuda. Does take Lorazepam prn PO, adjust dose and frequency and monitor use. Will repeat labs and PO intake so variable and hard to track. 02/09/2021--admitted to [facility]. Ativan 2mg SL TID ordered. Track Is&Os. Vitals BID. 02/10/2021--continue with ativan 2mg TID SL. Showing significant improving in catatonic symptoms since ativan trial last night. If he continues to walk around no need for DVT prophylaxis. Will consider if 302 needs to be converted to 303 based on progress today. 02/11/2021--continue with scheduled ativan. Less engagement today but still eating and drinking. Plan for likely 303 given his inability/reluctance to engage in treatment. Reviewed outside records. 02/12/2021--continues to refuse ativan today and won't engage with anyone nor leave his bed except to use the bathroom and to eat at night. Given some movement in the evening and to the bathroom he doesn't require DVT prophylaxis at this time but this remains a concern should he clinically worsen and will continue to monitor his nutritional and medical status closely. 02/13/2021--placed on 303 status due to ongoing decompensation due to catatonia including refusal of medication, not eating, not drinking, not communicating with anyone and lying in bed all day. Once catatonia begins to improve with treatment will aim to start latuda which helped previously. [place] to require medications over objection for ativan to treat catatonia. If catatonia does not respond quickly to ativan then will consider if DVT prophylaxis should be initiated. 02/14/2021--no significant change in behaviors with additional of scheduled ativan 2 mg BID as medication over objection. Given concern for skin breakdown consult was placed for wound nurse. Given concern for possible DVT and after discussion with hospitalist will begin lovenox 40mg subQ daily. David was able to vocalize consent for this as he remains mute and unable/unwilling to engage but explained the risks, benefits, alternatives and rationale for lovenox and that we will be offering this to him. 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 02/15/2021--Have ruled out catatonia given inconsistent response to ativan trial, multiple observed examples of volitional movement immediately following periods of patient lying in bed and mute. Subsequent catatonia scales have been negative and patient feels that his symptoms represent withdrawn features of anxiety and depression. Given bipolar depression with neurovegetative features will start latuda. Encouragingly he is eating more and drinking more and got out of bed twice last night. Risk Factors Assessment Male: Yes : Yes Do You Have Access To A Gun?: No (in supportive living enviornment, pt unable to answer ) Mental Health Diagnoses: Yes Previous Psychiatric Hospitalization: Yes Protective Factors Assessment Employed: No Interval History Identifying Information 40 yo man with history of catatonia, depression, bipolar disorder vs schizophrenia admitted due to concern for decompensation with failure of self- care at [facility]. Admitted on 302, now 304. Chief Complaint mute today Review of Systems Sleep Information Total Hours of Sleep: 6.5 Sleep Comments: pt on q-15 minute checks Meal Information Percent Meal Consumed - Breakfast: 0 Percent Meal Consumed - Lunch: 100 Percent Meal Consumed - Dinner: 0 Nutrition Comment: Had CIB with ice cream Subjective Subjective Patient was seen & assessed and interval progress reviewed with treatment team nursing and social work. David is sitting up in bed today and awake but won't engage in any conversation and doesn't respond when I share updates and discuss treatment options with him. Did not get out of bed last night and didn't eat yesterday. Physical Exam Psychiatric Orientation: alert; + uncooperative Apperance: + disheveled Eye Contact: + poor eye contact Motor Behavior: no abnormal motor movements and + psychomotor retardation Speech: + mute Affect: + flat affect Thought Process: + thought blocking Cognition: + attention not intact Insight: + impaired insight Judgement: + severely impaired judgement Vital Signs (Past 24 Hours) Last Vital Signs Temp 36.2 C L 03/23/21 14:54 Pulse 121 H 03/23/21 14:54 Resp 16 03/23/21 14:54 BP 100/75 03/23/21 14:54 Pulse Ox 98 03/22/21 19:00 Results & Data ([facility]) Laboratory Results Laboratory Results - last 24 hr 03/23/21 08:15 Sodium 141 Potassium 4.0 Chloride 110 H Carbon Dioxide 20 L Anion Gap 11.0 BUN 14 Creatinine 0.91 Est Cr Clr Drug Dosing 140.9 Est GFR ( Amer) 121.8 Est GFR (Non-Af Amer) 105.0 BUN/Creatinine Ratio 15.3 Glucose 85 Calcium 8.7 Total Bilirubin 0.9 AST 15 ALT 45 Alkaline Phosphatase 116 Total Protein 6.8 Albumin 3.3 L Globulin 3.5 Albumin/Globulin Ratio 1.0 Current Inpatient Medications Current Inpatient Medications: Current Inpatient Medications Acetaminophen (Acetaminophen 325 Mg Tab) 650 mg PO Q4H PRN PRN Reason: Headache or Minor Fever Stop: 04/10/21 10:27 Last Admin: 03/16/21 10:34 Dose: 325 mg Documented by: Al Hydrox/Mg Hydrox/Simethicone (Aluminum/Magnesium Susp 30 Ml Udc) 30 ml PO Q4H PRN PRN Reason: GI Upset Stop: 04/10/21 10:27 Bismuth Subsalicylate (Bismuth Subsalicylate Liqd 236 Ml) 15 ml PO PRN PRN PRN Reason: Loose Stool Stop: 04/10/21 10:27 Clotrimazole (Clotrimazole 1% Cr 15 Gm Tube) 1 appln EXT HS OG Stop: 04/16/21 21:59 Last Admin: 03/22/21 21:34 Dose: 1 appln Documented by: Enoxaparin Sodium (Enoxaparin Inj 40 Mg/0.4 Ml Syr) 40 mg SQ QAM OG Stop: 04/22/21 08:59 Last Admin: 03/23/21 09:15 Dose: 40 mg Documented by: Hydroxyzine HCl (Hydroxyzine Hcl 25 Mg Tab) 50 mg PO HSZ PRN PRN Reason: Insomnia Stop: 04/10/21 10:27 Hydroxyzine HCl (Hydroxyzine Hcl 25 Mg Tab) 25 mg PO Q4H PRN PRN Reason: Anxiety Stop: 04/10/21 10:27 Lorazepam (Lorazepam 1 Mg Tab) 1 mg PO Q6 PRN PRN Reason: Anxiety/Agitation Stop: 04/10/21 08:14 Lorazepam (Lorazepam 2 Mg/Ml Vial (Im Use)) 1 mg IM BIDM OG Stop: 04/15/21 08:59 Last Admin: 03/23/21 09:27 Dose: 1 mg Documented by: Lorazepam (Lorazepam 1 Mg Tab) 1 mg PO TIDM OG Stop: 04/16/21 12:29 Last Admin: 03/23/21 12:06 Dose: Not Given Documented by: Magnesium Hydroxide (Magnesium Hydroxide Susp 30 Ml Udc) 30 ml PO DAILY PRN PRN Reason: Constipation Stop: 04/10/21 10:27 Miscellaneous (Remove Patch Selegiline (Emsam)) 1 ea N/A Q24H OG Stop: 04/10/21 08:58 Last Admin: 03/23/21 09:05 Dose: 1 ea Documented by: Selegiline (Selegiline 6 Mg/24hr Tdsy) 6 mg TD DAILY OG Stop: 04/10/21 08:59 Last Admin: 03/23/21 09:04 Dose: 6 mg Documented by: Sodium Chloride (Sodium Chloride 0.65% Na Soln 45 Ml ([place])) 1 - 2 sprays NA PRN PRN PRN Reason: Nasal Dryness/Congestion Stop: 04/10/21 10:27 Mental Health & Subst Abuse Tx Psychiatrist Name of Psychiatrist: Oniel Negron Psychiatrist's Date of Appointment with Psychiatrist: 03/13/21 Time of Appointment with Psychiatrist: 9:20am Psychiatric Appointment Comment: Zoom *is on waiting list for appt. sooner Therapist Name of Therapist: Unknown Core Maker Helper Name of Core Maker Helper: Mauri ([facility]) Post Discharge Appointments Primary Care Physician Name Of Family Doctor: Unknown
[2021-03-23] MEDS: CLOTRIMAZOLE 1% CR 15 GM TUBE EXT SCH (21:08)
[2021-03-24] MEDS: SELEGILINE 6 MG/24 HR TD SCH (09:28)
[2021-03-24] MEDS: ENOXAPARIN INJ 40 MG/0.4 ML SYR SQ SCH (09:30)
[2021-03-24] MEDS: LORazepam 2 MG/ML VIAL (IM USE) IM SCH ×2 (09:40→16:54)
[2021-03-24] MEDS: LORazepam 1 MG TAB PO SCH ×3 (09:42→16:53)
[2021-03-24] MEDS: [UNRECOGNIZED DRUG - REMARK] SCH (09:42)
--- NOTE | 2021-03-24 14:55 | Psychiatric Progress Note ---
Date of Service March 24, 2021 Impression / Recommendations Impression The patient is a 40 year old with a history of schizoaffective disorder vs bipolar depression who was admitted for failure of self-care and worsening decompensation at nursing home. The patient is deemed unstable and requires psychiatric hospitalization for diagnostic clarification, safety and stabilization, medication management and development of further coping skills. Initially focussed on Ativan dosing for catatonia but no consistent response to meds over objection. Patient seemed worse on Zyprexa, very poor PO. Started Emsam (MAOI patch on 02/21/21). Will focus on medication over objection and readdress possible ECT or other med trials. 304 status granted. 03/24/21: showing ongoing regression. Plan: reviewed medications, continues to decline ativan intermittently so will continue with IM for now, may want to consider restarting an antipsychotic. (1) Bipolar disorder with depression: 03/24/21: continue current medications. 03/23/21: labwork done today and reviewed no significant changes from prior labwork, still has elevated Cl. Continue with lovenox, emsam patch, and ativan 1 mg po TID (with BID IM for refusal) 03/22/21: labs in am and resume Lovenox given regression past 3 days. 03/18/21: unable to care for self outside of hospital, continue Emsam patch, will not increase as I do not believe he can follow appropriate dietary restrictions at higher doses. 03/17/21: Ativan 1 mg PO TID (inject up to BID for refusal). 03/16/21: resume IM Ativan for refusal of PO Ativan. 03/15/21: Continue current medications. Making referral to [facility] given slow progression and he is still very far from his baseline which will require extended treatment and thus he will be best served by a longer term treatment approach. 03/14/21: Continue with current medications. Reviewed labwork, K+ improved but still signs of poor nutrition. Elevated ALT could be side effect from Emsam patch (occurs in <1/100 - 05/999 pts), will continue to monitor. may be able to consider transition to a po medication if he remains consistent with accepting po medications but for now Emsam patch benefit is felt to outweigh risk of slight ALT elevation. 03/13/21: Continue with current medications. Supports from [facility] will visit tomorrow. Labwork CMP tomorrow morning to ensure correction of hypokalemia. 03/12/21: Continue with current medications. Discussed with treatment team having his nursing home supports come for a visit and they will visit on . Reviewed his interactions with staff during evening hours/overnight in the chart and continues to show progress with engagement. 03/11/21: Continue with ativan 1 mg BID po, canceled IM as he is agreeing to voluntary po. Given steady improvement over the last 1 week consistent with expected timeline for symptom improvement from Emsam patch he may no longer need longer term care option if improvement persists at this rate. If progress stalls or regression occurs then will reconsider if longer term option for treatment is required. 03/10/21: Reduce ativan to 1 mg BID due to dizziness, low BP and possible fall yesterday. Will discontinue lovenox per his request and since he is now consistently moving around throughout the day and at night, discussed risk of blood clots if he doesn't continue to move around and ambulate frequently which he vocalized understanding of and agreement with. Given improvement in nutritional intake will hold off on rechecking labwork for now, will get repeat labs in 1 week on 03/14. 03/09/21: Reviewed interim progress. Continue Emsam patch and ativan 2mg BID trial-will monitor for excessive sedation. 03/08/21: Ativan 2 mg BID trial. 03/07/21: patient seen by neurology, appreciate input, seems severe vegetative symptoms due to depression though last few doses of Ativan have been more effective than previous. Continue Ativan 1 mg po BID (IM for refusal). Attempt to replete K with powder dissolved in juice. 03/04/21: will explore personal senior living as concerns he will not improve to point he can make meals/meet requirements to return to [facility] during this stay. 03/03/21--continue same. Cannot attempt coadmin with stimulant trial for hypersomnia as contraindicated with MAOI. No medical decompensation that would necessitate referral to medical or seeking court order for ECT. At minimum behaviors are challenging but more appropriate when willing to interact with staff. Need to consider longer term care options given slow progression. 03/02/21--interim care reviewed. Continue EMSAM and Lovenox injection. 03/01/21--Day 9 of Emsam patch. Continuing with behavioral plan to encourage behavioral activation-he was provided with plan with goals of having him come out of his room to eat meals, cooperate with repositioning, stand up when his sheets are changed/or if he prefers to stay in bed until the evening then clean sheets can be provided for him to put on the bed or request help putting on the bed in the evening, and continue independently voiding in his bedside urinal, shower can be started for him but he should be encouraged to get into the shower on his own, encourage him to address basic hygiene by continuing to provide him with easy access to his toothbrush, shampoo, etc. 02/28/21--Day 8 of Emsam patch. Now seeing new pattern of daily food intake which is encouraging. Continues to present with regressed behaviors and refusal to interact during the day. 02/27/21--Continue with Emsam patch. Getting out of bed more in the evenings and eating more. Lack of engagement during the day was volitional-pulling blanket over his head after he saw me enter his room. Also becoming more irritable with staff when he is encouraged to do more on his own for behavioral activation. 02/26/21-Continue with Emsam patch. 304 status granted. Ate last night and interacted with staff but no engagement today. 02/25/21--Continues to demonstrate severe depression with neurovegetative symptoms with no engagement with staff. Behavioral plan challenged by finding a reward/incentive that he enjoys. Continuing to encourage behavioral activation. Petitioned for 304 status with hearing scheduled for tomorrow given ongoing symptom burden and need for ongoing treatment. Remains on lovenox for DVT prophylaxis. Continue with Emsam patch. 02/24/21--Remains isolative and will not engage verbally. Encouragingly is attending slightly more to some of his ADLs, will continue with behavioral plan in hopes to continue encouraging behavioral activation although food does not seem to be a good motivator/reward for him. Will continue to think about other possible motivators for him to help encourage increased activity, po intake and engagement with therapeutic milieu. No signs of HTN or other side effects from MAOI at this point. 02/23/21--Continues to demonstrate neurovegetative symptoms of depression, remaining in bed most of the day but sometimes more engagement in the evenings. Will implement behavioral plan to encourage behavioral activation to treat neurovegetative symptoms in conjunction with Emsam as well as to encourage increased participation with ADLs. Nursing to provide him with tools to help him eat and promote good hygiene (brining in meals, supplies to wash up) and then if he does this independently will bring in ice cream or chips as reward to see if this helps with activation and increased po intake. 02/22/21--neurologic work up with EEG and brain MRI unremarkable, continue Emsam trial. 02/21/21--complex differential--depression with psychotic features in a patient with bipolar disorder most likely, certainly not typcial catatonia. No hx of hyperphagia or hypersexuality known that would suggest Kleine-Hess syndrome. Will proceed with Emsam patch 6 mg trial as only means to administer antidepressant. Will check with an ECT facility to determine if can treat patient if pursue a court order (will await emsam trial first). MRI brain (patient will need various x rays first as can't answer screening questions, no hx of pacemaker on chart). bedside EEG to rule out status epilepticus. 02/19/21--non-formulary request for Emsam patch. Hasn't taken antidepressants for at least 6 weeks. Would reconsider current med doses when this becomes available. without antidepressant he will continue to decompensate medically and is at significant risk of further decompensation. 02/17/21--lytes, Bun/Cr improved; given sleep phase shift desirable to shift antipsychotic to pm meal with IM Zyprexa for refusal. Bedside EEG likely poor quality/low yeild but consider if no improvement. 02/16/21--Reviewed care by Dr. Garces in italics. will d/c IM Ativan in favor of Zyprexa IM for failure to take Latuda. Does take Lorazepam prn PO, adjust dose and frequency and monitor use. Will repeat labs and PO intake so variable and hard to track. 02/09/2021--admitted to [facility]. Ativan 2mg SL TID ordered. Track Is&Os. Vitals BID. 02/10/2021--continue with ativan 2mg TID SL. Showing significant improving in catatonic symptoms since ativan trial last night. If he continues to walk around no need for DVT prophylaxis. Will consider if 302 needs to be converted to 303 based on progress today. 02/11/2021--continue with scheduled ativan. Less engagement today but still eating and drinking. Plan for likely 303 given his inability/reluctance to engage in treatment. Reviewed outside records. 02/12/2021--continues to refuse ativan today and won't engage with anyone nor leave his bed except to use the bathroom and to eat at night. Given some movement in the evening and to the bathroom he doesn't require DVT prophylaxis at this time but this remains a concern should he clinically worsen and will continue to monitor his nutritional and medical status closely. 02/13/2021--placed on 303 status due to ongoing decompensation due to catatonia including refusal of medication, not eating, not drinking, not communicating with anyone and lying in bed all day. Once catatonia begins to improve with treatment will aim to start latuda which helped previously. [place] to require medications over objection for ativan to treat catatonia. If catatonia does not respond quickly to ativan then will consider if DVT prophylaxis should be initiated. 02/14/2021--no significant change in behaviors with additional of scheduled ativan 2 mg BID as medication over objection. Given concern for skin breakdown consult was placed for wound nurse. Given concern for possible DVT and after discussion with hospitalist will begin lovenox 40mg subQ daily. David was able to vocalize consent for this as he remains mute and unable/unwilling to engage but explained the risks, benefits, alternatives and rationale for lovenox and that we will be offering this to him. 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 02/15/2021--Have ruled out catatonia given inconsistent response to ativan trial, multiple observed examples of volitional movement immediately following periods of patient lying in bed and mute. Subsequent catatonia scales have been negative and patient feels that his symptoms represent withdrawn features of anxiety and depression. Given bipolar depression with neurovegetative features will start latuda. Encouragingly he is eating more and drinking more and got out of bed twice last night. Risk Factors Assessment Male: Yes : Yes Do You Have Access To A Gun?: No (in supportive living enviornment, pt unable to answer ) Mental Health Diagnoses: Yes Previous Psychiatric Hospitalization: Yes Protective Factors Assessment Employed: No Interval History Identifying Information 40 yo man with history of catatonia, depression, bipolar disorder vs schizophrenia admitted due to concern for decompensation with failure of self- care at [facility]. Admitted on 302, now 304. Chief Complaint mute. Review of Systems Sleep Information Total Hours of Sleep: 6 Sleep Comments: pt on q-15 minute checks Meal Information Percent Meal Consumed - Breakfast: 0 Percent Meal Consumed - Lunch: 0 Percent Meal Consumed - Dinner: 0 Nutrition Comment: Meal dated, labeled and refrigerated. Subjective Subjective Patient was seen & assessed and interval progress reviewed with treatment team nursing and social work. Ate a sandwich and drank some fluids yesterday. Did not get out of bed. Engaged with evening staff briefly. Declined shower. Today remains mute and under the blankets on my assessment. Physical Exam Psychiatric Orientation:alert; + uncooperative Apperance:+ disheveled Eye Contact:+ poor eye contact Motor Behavior:no abnormal motor movements and + psychomotor retardation Speech:+ mute Affect:+ flat affect Thought Process:+ thought blocking Cognition:+ attention not intact Insight:+ impaired insight Judgement:+ severely impaired judgement Vital Signs (Past 24 Hours) Last Vital Signs Temp 36.4 C 03/23/21 21: Pulse 91 H 03/23/21 21:22 Resp 18 03/23/21 21:22 BP 110/78 03/23/21 21:22 Pulse Ox 96 03/23/21 21:22 Results & Data ([facility]) Current Inpatient Medications Current Inpatient Medications: Current Inpatient Medications Acetaminophen (Acetaminophen 325 Mg Tab) 650 mg PO Q4H PRN PRN Reason: Headache or Minor Fever Stop: 04/10/21 10:27 Last Admin: 03/16/21 10:34 Dose: 325 mg Documented by: Al Hydrox/Mg Hydrox/Simethicone (Aluminum/Magnesium Susp 30 Ml Udc) 30 ml PO Q4H PRN PRN Reason: GI Upset Stop: 04/10/21 10:27 Bismuth Subsalicylate (Bismuth Subsalicylate Liqd 236 Ml) 15 ml PO PRN PRN PRN Reason: Loose Stool Stop: 04/10/21 10:27 Clotrimazole (Clotrimazole 1% Cr 15 Gm Tube) 1 appln EXT HS OG Stop: 04/16/21 21:59 Last Admin: 03/23/21 21:08 Dose: 1 appln Documented by: Enoxaparin Sodium (Enoxaparin Inj 40 Mg/0.4 Ml Syr) 40 mg SQ QAM OG Stop: 04/22/21 08:59 Last Admin: 03/24/21 09:30 Dose: 40 mg Documented by: Hydroxyzine HCl (Hydroxyzine Hcl 25 Mg Tab) 50 mg PO HSZ PRN PRN Reason: Insomnia Stop: 04/10/21 10:27 Hydroxyzine HCl (Hydroxyzine Hcl 25 Mg Tab) 25 mg PO Q4H PRN PRN Reason: Anxiety Stop: 04/10/21 10:27 Lorazepam (Lorazepam 1 Mg Tab) 1 mg PO Q6 PRN PRN Reason: Anxiety/Agitation Stop: 04/10/21 08:14 Lorazepam (Lorazepam 2 Mg/Ml Vial (Im Use)) 1 mg IM BIDM OG Stop: 04/15/21 08:59 Last Admin: 03/24/21 09:40 Dose: 1 mg Documented by: Lorazepam (Lorazepam 1 Mg Tab) 1 mg PO TIDM OG Stop: 04/16/21 12:29 Last Admin: 03/24/21 12:34 Dose: Not Given Documented by: Magnesium Hydroxide (Magnesium Hydroxide Susp 30 Ml Udc) 30 ml PO DAILY PRN PRN Reason: Constipation Stop: 04/10/21 10:27 Miscellaneous (Remove Patch Selegiline (Emsam)) 1 ea N/A Q24H OG Stop: 04/10/21 08:58 Last Admin: 03/24/21 09:42 Dose: 1 ea Documented by: Selegiline (Selegiline 6 Mg/24hr Tdsy) 6 mg TD DAILY OG Stop: 04/10/21 08:59 Last Admin: 03/24/21 09:28 Dose: 6 mg Documented by: Sodium Chloride (Sodium Chloride 0.65% Na Soln 45 Ml ([place])) 1 - 2 sprays NA PRN PRN PRN Reason: Nasal Dryness/Congestion Stop: 04/10/21 10:27 Mental Health & Subst Abuse Tx Psychiatrist Name of Psychiatrist: Oniel Negron Psychiatrist's Date of Appointment with Psychiatrist: 03/13/21 Time of Appointment with Psychiatrist: 9:20am Psychiatric Appointment Comment: Zoom *is on waiting list for appt. sooner Therapist Name of Therapist: Unknown Cutter Hot Knife Name of Cutter Hot Knife: Mauri ([facility]) Post Discharge Appointments Primary Care Physician Name Of Family Doctor: Unknown
[2021-03-24] MEDS: CLOTRIMAZOLE 1% CR 15 GM TUBE EXT SCH (20:24)
[2021-03-25] MEDS: [UNRECOGNIZED DRUG - REMARK] SCH (09:34)
[2021-03-25] MEDS: ENOXAPARIN INJ 40 MG/0.4 ML SYR SQ SCH (09:36)
[2021-03-25] MEDS: LORazepam 1 MG TAB PO SCH ×3 (09:37→16:58)
[2021-03-25] MEDS: LORazepam 2 MG/ML VIAL (IM USE) IM SCH (09:37)
[2021-03-25] MEDS: SELEGILINE 6 MG/24 HR TD SCH (09:45)
--- NOTE | 2021-03-25 16:44 | Psychiatric Progress Note ---
Date of Service March 25, 2021 Impression / Recommendations Impression The patient is a 40 year old with a history of schizoaffective disorder vs bipolar depression who was admitted for failure of self-care and [facility] decompensation [facility]. The patient is deemed unstable and requires psychiatric hospitalization for diagnostic clarification, safety and stabilization, medication management and development of further coping skills. Initially focussed on Ativan dosing for catatonia but no consistent response to meds over objection. Patient seemed worse on Zyprexa, very poor PO. Started Emsam (MAOI patch on 02/21/21). Will focus on medication over objection and readdress possible ECT or other med trials. 304 status granted. 03/25/21: remains in bed for most of the day. Plan: no signs of significant improvement or change in activity level or attention to ADLs with ativan via IM so will discontinue given potential harm to therapeutic alliance and no benefit. 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 Discussed this with David who consented to trying this. There have been no studies with modafinil and MAOIs though it is believed to be a safer option than a traditional stimulant. Will monitor very cautiously for any treatment emergent side effects or interaction effects but at this point potential benefit of improved energy, movement, and engagement with basic ADLs felt to outweigh the risks. Started at very low dose given risk of interaction with MAOI. (1) Bipolar disorder with depression: 03/25/21: start modafinil 50 mg qAM, will monitor carefully for any interactions with MAOI. Discontinued ativan IM for refusal of po. Reducing ativan dosing from TID po to BID po in the afternoon to avoid combining morning stimulant with morning benzo as this would be counterproductive to stimulant trial. 03/24/21: continue current medications. 03/23/21: labwork done today and reviewed no significant changes from prior labwork, still has elevated Cl. Continue with lovenox, emsam patch, and ativan 1 mg po TID (with BID IM for refusal) 03/22/21: labs in am and resume Lovenox given regression past 3 days. 03/18/21: unable to care for self outside of hospital, continue Emsam patch, will not increase as I do not believe he can follow appropriate dietary restrictions at higher doses. 03/17/21: Ativan 1 mg PO TID (inject up to BID for refusal). 03/16/21: resume IM Ativan for refusal of PO Ativan. 03/15/21: Continue current medications. Making referral to [facility] given slow progression and he is still very far from his baseline which will require extended treatment and thus he will be best served by a longer term treatment approach. 03/14/21: Continue with current medications. Reviewed labwork, K+ improved but still signs of poor nutrition. Elevated ALT could be side effect from Emsam patch (occurs in <1/100 - 05/999 pts), will continue to monitor. may be able to consider transition to a po medication if he remains consistent with accepting po medications but for now Emsam patch benefit is felt to outweigh risk of slight ALT elevation. 03/13/21: Continue with current medications. Supports from [employer] will visit tomorrow. Labwork CMP tomorrow morning to ensure correction of hypokalemia. 03/12/21: Continue with current medications. Discussed with treatment team having his jail supports come for a visit and they will visit on . Reviewed his interactions with staff during evening hours/overnight in the chart and continues to show progress with engagement. 03/11/21: Continue with ativan 1 mg BID po, canceled IM as he is agreeing to voluntary po. Given steady improvement over the last 1 week consistent with expected timeline for symptom improvement from Emsam patch he may no longer need longer term care option if improvement persists at this rate. If progress stalls or regression occurs then will reconsider if longer term option for treatment is required. 03/10/21: Reduce ativan to 1 mg BID due to dizziness, low BP and possible fall yesterday. Will discontinue lovenox per his request and since he is now consistently moving around throughout the day and at night, discussed risk of blood clots if he doesn't continue to move around and ambulate frequently which he vocalized understanding of and agreement with. Given improvement in nutritional intake will hold off on rechecking labwork for now, will get repeat labs in 1 week on 03/14. 03/09/21: Reviewed interim progress. Continue Emsam patch and ativan 2mg BID trial-will monitor for excessive sedation. 03/08/21: Ativan 2 mg BID trial. 03/07/21: patient seen by neurology, appreciate input, seems severe vegetative symptoms due to depression though last few doses of Ativan have been more effective than previous. Continue Ativan 1 mg po BID (IM for refusal). Attempt to replete K with powder dissolved in juice. 03/04/21: will explore personal correction as concerns he will not improve to point he can make meals/meet requirements to return to [facility] during this stay. 03/03/21--continue same. Cannot attempt coadmin with stimulant trial for hypersomnia as contraindicated with MAOI. No medical decompensation that would necessitate referral to medical or seeking court order for ECT. At minimum behaviors are challenging but more appropriate when willing to interact with staff. Need to consider longer term care options given slow progression. 03/02/21--interim care reviewed. Continue EMSAM and Lovenox injection. 03/01/21--Day 9 of Emsam patch. Continuing with behavioral plan to encourage behavioral activation-he was provided with plan with goals of having him come out of his room to eat meals, cooperate with repositioning, stand up when his sheets are changed/or if he prefers to stay in bed until the evening then clean sheets can be provided for him to put on the bed or request help putting on the bed in the evening, and continue independently voiding in his bedside urinal, shower can be started for him but he should be encouraged to get into the shower on his own, encourage him to address basic hygiene by continuing to provide him with easy access to his toothbrush, shampoo, etc. 02/28/21--Day 8 of Emsam patch. Now seeing new pattern of daily food intake which is encouraging. Continues to present with regressed behaviors and refusal to interact during the day. 02/27/21--Continue with Emsam patch. Getting out of bed more in the evenings and eating more. Lack of engagement during the day was volitional-pulling blanket over his head after he saw me enter his room. Also becoming more irritable with staff when he is encouraged to do more on his own for behavioral activation. 02/26/21-Continue with Emsam patch. 304 status granted. Ate last night and interacted with staff but no engagement today. 02/25/21--Continues to demonstrate severe depression with neurovegetative symptoms with no engagement with staff. Behavioral plan challenged by finding a reward/incentive that he enjoys. Continuing to encourage behavioral activation. Petitioned for 304 status with hearing scheduled for tomorrow given ongoing symptom burden and need for ongoing treatment. Remains on lovenox for DVT prophylaxis. Continue with Emsam patch. 02/24/21--Remains isolative and will not engage verbally. Encouragingly is attending slightly more to some of his ADLs, will continue with behavioral plan in hopes to continue encouraging behavioral activation although food does not seem to be a good motivator/reward for him. Will continue to think about other possible motivators for him to help encourage increased activity, po intake and engagement with therapeutic milieu. No signs of HTN or other side effects from MAOI at this point. 02/23/21--Continues to demonstrate neurovegetative symptoms of depression, remaining in bed most of the day but sometimes more engagement in the evenings. Will implement behavioral plan to encourage behavioral activation to treat neurovegetative symptoms in conjunction with Emsam as well as to encourage increased participation with ADLs. Nursing to provide him with tools to help him eat and promote good hygiene (brining in meals, supplies to wash up) and then if he does this independently will bring in ice cream or chips as reward to see if this helps with activation and increased po intake. 02/22/21--neurologic work up with EEG and brain MRI unremarkable, continue Emsam trial. 02/21/21--complex differential--depression with psychotic features in a patient with bipolar disorder most likely, certainly not typcial catatonia. No hx of hyperphagia or hypersexuality known that would suggest Kleine-Hess syndrome. Will proceed with Emsam patch 6 mg trial as only means to administer antide pressant. Will check with an ECT facility to determine if can treat patient if pursue a court order (will await emsam trial first). MRI brain (patient will need various x rays first as can't answer screening questions, no hx of pacemaker on chart). bedside EEG to rule out status epilepticus. 02/19/21--non-formulary request for Emsam patch. Hasn't taken antidepressants for at least 6 weeks. Would reconsider current med doses when this becomes available. without antidepressant he will continue to decompensate medically and is at significant risk of further decompensation. 02/17/21--lytes, Bun/Cr improved; given sleep phase shift desirable to shift antipsychotic to pm meal with IM Zyprexa for refusal. Bedside EEG likely poor quality/low yeild but consider if no improvement. 02/16/21--Reviewed care by Dr. Garces in italics. will d/c IM Ativan in favor of Zyprexa IM for failure to take Latuda. Does take Lorazepam prn PO, adjust dose and frequency and monitor use. Will repeat labs and PO intake so variable and hard to track. 02/09/2021--admitted to [facility]. Ativan 2mg SL TID ordered. Track Is&Os. Vitals BID. 02/10/2021--continue with ativan 2mg TID SL. Showing significant improving in catatonic symptoms since ativan trial last night. If he continues to walk around no need for DVT prophylaxis. Will consider if 302 needs to be converted to 303 based on progress today. 02/11/2021--continue with scheduled ativan. Less engagement today but still eating and drinking. Plan for likely 303 given his inability/reluctance to engage in treatment. Reviewed outside records. 02/12/2021--continues to refuse ativan today and won't engage with anyone nor leave his bed except to use the bathroom and to eat at night. Given some movement in the evening and to the bathroom he doesn't require DVT prophylaxis at this time but this remains a concern should he clinically worsen and will continue to monitor his nutritional and medical status closely. 02/13/2021--placed on 303 status due to ongoing decompensation due to catatonia including refusal of medication, not eating, not drinking, not communicating with anyone and lying in bed all day. Once catatonia begins to improve with treatment will aim to start latuda which helped previously. [place] to require medications over objection for ativan to treat catatonia. If catatonia does not respond quickly to ativan then will consider if DVT prophylaxis should be initiated. 02/14/2021--no significant change in behaviors with additional of scheduled ativan 2 mg BID as medication over objection. Given concern for skin breakdown consult was placed for wound nurse. Given concern for possible DVT and after discussion with hospitalist will begin lovenox 40mg subQ daily. David was able to vocalize consent for this as he remains mute and unable/unwilling to engage but explained the risks, benefits, alternatives and rationale for lovenox and that we will be offering this to him. 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 02/15/2021--Have ruled out catatonia given inconsistent response to ativan trial, multiple observed examples of volitional movement immediately following periods of patient lying in bed and mute. Subsequent catatonia scales have been negative and patient feels that his symptoms represent withdrawn features of anxiety and depression. Given bipolar depression with neurovegetative features will start latuda. Encouragingly he is eating more and drinking more and got out of bed twice last night. Risk Factors Assessment Male: Yes : Yes Do You Have Access To A Gun?: No (in supportive living enviornment, pt unable to answer ) Mental Health Diagnoses: Yes Previous Psychiatric Hospitalization: Yes Protective Factors Assessment Employed: No Interval History Identifying Information 40 yo man with history of catatonia, depression, bipolar disorder vs schizophrenia admitted due to concern for decompensation with failure of self- care at [facility]. Admitted on 302, now 304. Chief Complaint "yeah". Review of Systems Sleep Information Total Hours of Sleep: 6 Sleep Comments: pt on q-15 minute checks Meal Information Percent Meal Consumed - Breakfast: 0 Percent Meal Consumed - Lunch: 0 Percent Meal Consumed - Dinner: 0 Nutrition Comment: Meal dated, labeled and refrigerated. Subjective Subjective Patient was seen & assessed and interval progress reviewed with treatment team nursing and social work. David continues to be isolative to his room with decreased po intake and engagement over the last few days. He was sitting in bed upright today with his legs over the side of the bed and was able to briefly engage with me. Discussed with him option to try a stimulant which he said "yes" to and again said "yes" when asked if he'd be willing to try it starting tomorrow morning. Remained mute otherwise. Physical Exam Psychiatric Orientation: alert and oriented x 3 Apperance: + disheveled Eye Contact: + poor eye contact Motor Behavior: no abnormal motor movements and + psychomotor retardation Speech: + mute (few brief whispered responses) Affect: + flat affect Mood: + depressed mood Thought Process: + thought blocking Cognition: + attention not intact Insight: + impaired insight Judgement: + severely impaired judgement Vital Signs (Past 24 Hours) Last Vital Signs Temp 36.6 C 03/24/21 20:07 Pulse 85 03/24/21 20:28 Resp 16 03/24/21 20:28 BP 113/72 03/24/21 20:28 Pulse Ox 95 03/24/21 20:28 Results & Data ([facility]) Current Inpatient Medications Current Inpatient Medications: Current Inpatient Medications Acetaminophen (Acetaminophen 325 Mg Tab) 650 mg PO Q4H PRN PRN Reason: Headache or Minor Fever Stop: 04/10/21 10:27 Last Admin: 03/16/21 10:34 Dose: 325 mg Documented by: Al Hydrox/Mg Hydrox/Simethicone (Aluminum/Magnesium Susp 30 Ml Udc) 30 ml PO Q4H PRN PRN Reason: GI Upset Stop: 04/10/21 10:27 Bismuth Subsalicylate (Bismuth Subsalicylate Liqd 236 Ml) 15 ml PO PRN PRN PRN Reason: Loose Stool Stop: 04/10/21 10:27 Clotrimazole (Clotrimazole 1% Cr 15 Gm Tube) 1 appln EXT HS OG Stop: 04/16/21 21:59 Last Admin: 03/24/21 20:24 Dose: 1 appln Documented by: Enoxaparin Sodium (Enoxaparin Inj 40 Mg/0.4 Ml Syr) 40 mg SQ QAM OG Stop: 04/22/21 08:59 Last Admin: 03/25/21 09:36 Dose: 40 mg Documented by: Hydroxyzine HCl (Hydroxyzine Hcl 25 Mg Tab) 50 mg PO HSZ PRN PRN Reason: Insomnia Stop: 04/10/21 10:27 Hydroxyzine HCl (Hydroxyzine Hcl 25 Mg Tab) 25 mg PO Q4H PRN PRN Reason: Anxiety Stop: 04/10/21 10:27 Lorazepam (Lorazepam 1 Mg Tab) 1 mg PO Q6 PRN PRN Reason: Anxiety/Agitation Stop: 04/10/21 08:14 Lorazepam (Lorazepam 1 Mg Tab) 1 mg PO TIDM OG Stop: 04/16/21 12:29 Last Admin: 03/25/21 12:53 Dose: Not Given Documented by: Magnesium Hydroxide (Magnesium Hydroxide Susp 30 Ml Udc) 30 ml PO DAILY PRN PRN Reason: Constipation Stop: 04/10/21 10:27 Miscellaneous (Remove Patch Selegiline (Emsam)) 1 ea N/A Q24H OG Stop: 04/10/21 08:58 Last Admin: 03/25/21 09:34 Dose: 1 ea Documented by: Selegiline (Selegiline 6 Mg/24hr Tdsy) 6 mg TD DAILY OG Stop: 04/10/21 08:59 Last Admin: 03/25/21 09:45 Dose: 6 mg Documented by: Sodium Chloride (Sodium Chloride 0.65% Na Soln 45 Ml ([place])) 1 - 2 sprays NA PRN PRN PRN Reason: Nasal Dryness/Congestion Stop: 04/10/21 10:27 Mental Health & Subst Abuse Tx Psychiatrist Name of Psychiatrist: Oniel Negron Psychiatrist's Date of Appointment with Psychiatrist: 03/13/21 Time of Appointment with Psychiatrist: 9:20am Psychiatric Appointment Comment: Zoom *is on waiting list for appt. sooner Therapist Name of Therapist: Unknown Contract Management Specialist Name of Contract Management Specialist: Mauri ([facility]) Post Discharge Appointments Primary Care Physician Name Of Family Doctor: Unknown
[2021-03-25] MEDS: CLOTRIMAZOLE 1% CR 15 GM TUBE EXT SCH (20:29)
[2021-03-26] MEDS: ENOXAPARIN INJ 40 MG/0.4 ML SYR SQ SCH (08:55)
[2021-03-26] MEDS: SELEGILINE 6 MG/24 HR TD SCH (08:57)
[2021-03-26] MEDS: [UNRECOGNIZED DRUG - REMARK] SCH (08:57)
[2021-03-26] MEDS: modafiniL 100 MG TAB PO SCH (10:03)
[2021-03-26] MEDS: LORazepam 1 MG TAB PO SCH ×2 (12:11→16:38)
--- NOTE | 2021-03-26 12:27 | Electrocardiogram Report ---
Test Reason : Blood Pressure : / mmHG Vent. Rate : 092 BPM Atrial Rate : 092 BPM P-R Int : 138 ms QRS Dur : 090 ms QT Int : 356 ms P-R-T Axes : 027 050 000 degrees QTc Int : 440 ms Normal sinus rhythm with sinus arrhythmia Nonspecific T wave abnormality Inferior leads Abnormal ECG When compared with ECG of 12-NOV-2019 14:15, No significant change Confirmed by Angel Horowitz ([id number]) on 03/26/2021 12:27:15 PM Referred By: REFERRED SELF Confirmed By:Angel Horowitz
--- NOTE | 2021-03-26 16:18 | Psychiatric Progress Note ---
Date of Service March 26, 2021 Impression / Recommendations Impression The patient is a 40 year old with a history of schizoaffective disorder vs bipolar depression who was admitted [facility] failure of [facility]. The patient is deemed unstable and requires psychiatric hospitalization for diagnostic clarification, safety and stabilization, medication management and development of further coping skills. Initially focussed on Ativan dosing for catatonia but no consistent response to meds over objection. Patient seemed worse on Zyprexa, very poor PO. Started Emsam (MAOI patch on 02/21/21). Will focus on medication over objection and readdress possible ECT or other med trials. 304 status granted. 03/26/21: remains in bed for most of the day, refused trial of stimulant-will continue to offer and monitor closely for potential interaction given MAOI patch. Plan: reviewed I&O over last few days. (1) Bipolar disorder with depression: 03/26/21: continue current medications, refused modafinil but will try again over next few days. Continue with ativan 1mg BIDM po 03/25/21: start modafinil 50 mg qAM, will monitor carefully for any interactions with MAOI. Discontinued ativan IM for refusal of po. Reducing ativan dosing from TID po to BID po in the afternoon to avoid combining morning stimulant with morning benzo as this would be counterproductive to stimulant trial. 03/24/21: continue current medications. 03/23/21: labwork done today and reviewed no significant changes from prior labwork, still has elevated Cl. Continue with lovenox, emsam patch, and ativan 1 mg po TID (with BID IM for refusal) 03/22/21: labs in am and resume Lovenox given regression past 3 days. 03/18/21: unable to care for self outside of hospital, continue Emsam patch, will not increase as I do not believe he can follow appropriate dietary restrictions at higher doses. 03/17/21: Ativan 1 mg PO TID (inject up to BID for refusal). 03/16/21: resume IM Ativan for refusal of PO Ativan. 03/15/21: Continue current medications. Making referral to [facility] given slow progression and he is still very far from his baseline which will require extended treatment and thus he will be best served by a longer term treatment approach. 03/14/21: Continue with current medications. Reviewed labwork, K+ improved but still signs of poor nutrition. Elevated ALT could be side effect from Emsam patch (occurs in <1/100 - 05/999 pts), will continue to monitor. may be able to consider transition to a po medication if he remains consistent with accepting po medications but for now Emsam patch benefit is felt to outweigh risk of slight ALT elevation. 03/13/21: Continue with current medications. Supports from [facility] [employer] will visit tomorrow. Labwork CMP tomorrow morning to ensure correction of hypokal emia. 03/12/21: Continue with current medications. Discussed with treatment team having his [facility] supports come for a visit and they will visit on . Reviewed his interactions with staff during evening hours/overnight in the chart and continues to show progress with engagement. 03/11/21: Continue with ativan 1 mg BID po, canceled IM as he is agreeing to voluntary po. Given steady improvement over the last 1 week consistent with expected timeline for symptom improvement from Emsam patch he may no longer need longer term care option if improvement persists at this rate. If progress stalls or regression occurs then will reconsider if longer term option for treatment is required. 03/10/21: Reduce ativan to 1 mg BID due to dizziness, low BP and possible fall yesterday. Will discontinue lovenox per his request and since he is now consistently moving around throughout the day and at night, discussed risk of blood clots if he doesn't continue to move around and ambulate frequently which he vocalized understanding of and agreement with. Given improvement in nutritional intake will hold off on rechecking labwork for now, will get repeat labs in 1 week on 03/14. 03/09/21: Reviewed interim progress. Continue Emsam patch and ativan 2mg BID trial-will monitor for excessive sedation. 03/08/21: Ativan 2 mg BID trial. 03/07/21: patient seen by neurology, appreciate input, seems severe vegetative symptoms due to depression though last few doses of Ativan have been more effective than previous. Continue Ativan 1 mg po BID (IM for refusal). Attempt to replete K with powder dissolved in juice. 03/04/21: will explore personal mcc as concerns he will not improve to point he can make meals/meet requirements to return to [facility] during this stay. 03/03/21--continue same. Cannot attempt coadmin with stimulant trial for hypersomnia as contraindicated with MAOI. No medical decompensation that would necessitate referral to medical or seeking court order for ECT. At minimum behaviors are challenging but more appropriate when willing to interact with staff. Need to consider longer term care options given slow progression. 03/02/21--interim care reviewed. Continue EMSAM and Lovenox injection. 03/01/21--Day 9 of Emsam patch. Continuing with behavioral plan to encourage behavioral activation-he was provided with plan with goals of having him come out of his room to eat meals, cooperate with repositioning, stand up when his sheets are changed/or if he prefers to stay in bed until the evening then clean sheets can be provided for him to put on the bed or request help putting on the bed in the evening, and continue independently voiding in his bedside urinal, shower can be started for him but he should be encouraged to get into the shower on his own, encourage him to address basic hygiene by continuing to provide him with easy access to his toothbrush, shampoo, etc. 02/28/21--Day 8 of Emsam patch. Now seeing new pattern of daily food intake which is encouraging. Continues to present with regressed behaviors and refusal to interact during the day. 02/27/21--Continue with Emsam patch. Getting out of bed more in the evenings and eating more. Lack of engagement during the day was volitional-pulling blanket over his head after he saw me enter his room. Also becoming more irritable with staff when he is encouraged to do more on his own for behavioral activation. 02/26/21-Continue with Emsam patch. 304 status granted. Ate last night and interacted with staff but no engagement today. 02/25/21--Continues to demonstrate severe depression with neurovegetative symptoms with no engagement with staff. Behavioral plan challenged by finding a reward/incentive that he enjoys. Continuing to encourage behavioral activation. Petitioned for 304 status with hearing scheduled for tomorrow given ongoing symptom burden and need for ongoing treatment. Remains on lovenox for DVT prophylaxis. Continue with Emsam patch. 02/24/21--Remains isolative and will not engage verbally. Encouragingly is attending slightly more to some of his ADLs, will continue with behavioral plan in hopes to continue encouraging behavioral activation although food does not seem to be a good motivator/reward for him. Will continue to think about other possible motivators for him to help encourage increased activity, po intake and engagement with therapeutic milieu. No signs of HTN or other side effects from MAOI at this point. 02/23/21--Continues to demonstrate neurovegetative symptoms of depression, remaining in bed most of the day but sometimes more engagement in the evenings. Will implement behavioral plan to encourage behavioral activation to treat neurovegetative symptoms in conjunction with Emsam as well as to encourage increased participation with ADLs. Nursing to provide him with tools to help him eat and promote good hygiene (brining in meals, supplies to wash up) and then if he does this independently will bring in ice cream or chips as reward to see if this helps with activation and increased po intake. 02/22/21--neurologic work up with EEG and brain MRI unremarkable, continue Emsam trial. 02/21/21--complex differential--depression with psychotic features in a patient with bipolar disorder most likely, certainly not typcial catatonia. No hx of hyperphagia or hypersexuality known that would suggest Kleine-Hess syndrome. Will proceed with Emsam patch 6 mg trial as only means to administer antidepressant. Will check with an ECT facility to determine if can treat patient if pursue a court order (will await emsam trial first). MRI brain (patient will need various x rays first as can't answer screening questions, no hx of pacemaker on chart). bedside EEG to rule out status epilepticus. 02/19/21--non-formulary request for Emsam patch. Hasn't taken antidepressants for at least 6 weeks. Would reconsider current med doses when this becomes available. without antidepressant he will continue to decompensate medically and is at significant risk of further decompensation. 02/17/21--lytes, Bun/Cr improved; given sleep phase shift desirable to shift antipsychotic to pm meal with IM Zyprexa for refusal. Bedside EEG likely poor quality/low yeild but consider if no improvement. 02/16/21--Reviewed care by Dr. Garces in italics. will d/c IM Ativan in favor of Zyprexa IM for failure to take Latuda. Does take Lorazepam prn PO, adjust dose and frequency and monitor use. Will repeat labs and PO intake so variable and hard to track. 02/09/2021--admitted to [facility]. Ativan 2mg SL TID ordered. Track Is&Os. Vitals BID. 02/10/2021--continue with ativan 2mg TID SL. Showing significant improving in catatonic symptoms since ativan trial last night. If he continues to walk around no need for DVT prophylaxis. Will consider if 302 needs to be converted to 303 based on progress today. 02/11/2021--continue with scheduled ativan. Less engagement today but still eating and drinking. Plan for likely 303 given his inability/reluctance to engage in treatment. Reviewed outside records. 02/12/2021--continues to refuse ativan today and won't engage with anyone nor leave his bed except to use the bathroom and to eat at night. Given some movement in the evening and to the bathroom he doesn't require DVT prophylaxis at this time but this remains a concern should he clinically worsen and will continue to monitor his nutritional and medical status closely. 02/13/2021--placed on 303 status due to ongoing decompensation due to catatonia including refusal of medication, not eating, not drinking, not communicating with anyone and lying in bed all day. Once catatonia begins to improve with treatment will aim to start latuda which helped previously. [place] to require medications over objection for ativan to treat catatonia. If catatonia does not respond quickly to ativan then will consider if DVT prophylaxis should be initiated. 02/14/2021--no significant change in behaviors with additional of scheduled ativan 2 mg BID as medication over objection. Given concern for skin breakdown consult was placed for wound nurse. Given concern for possible DVT and after discussion with hospitalist will begin lovenox 40mg subQ daily. David was able to vocalize consent for this as he remains mute and unable/unwilling to engage but explained the risks, benefits, alternatives and rationale for lovenox and that we will be offering this to him. 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 02/15/2021--Have ruled out catatonia given inconsistent response to ativan trial, multiple observed examples of volitional movement immediately following periods of patient lying in bed and mute. Subsequent catatonia scales have been negative and patient feels that his symptoms represent withdrawn features of anxiety and depression. Given bipolar depression with neurovegetative features will start latuda. Encouragingly he is eating more and drinking more and got out of bed twice last night. Risk Factors Assessment Male: Yes : Yes Do You Have Access To A Gun?: No (in supportive living enviornment, pt unable to answer ) Mental Health Diagnoses: Yes Previous Psychiatric Hospitalization: Yes Protective Factors Assessment Employed: No Interval History Identifying Information 40 yo man with history of catatonia, depression, bipolar disorder vs schizophrenia admitted due to concern for decompensation with failure of self- care at [facility]. Admitted on 302, now 304. Chief Complaint mute Review of Systems Sleep Information Total Hours of Sleep: 6.5 Sleep Comments: pt on q-15 minute checks Meal Information Percent Meal Consumed - Breakfast: 0 Percent Meal Consumed - Lunch: 0 Percent Meal Consumed - Dinner: 0 Nutrition Comment: Meal dated, labeled and refrigerated. Subjective Subjective Patient was seen & assessed and interval progress reviewed with treatment team nursing and social work. No engagement with staff last night and no intake of meals yesterday. Refused stimulant this morning. Grimaced but would not respond to any verbal efforts to engage with him. Mute. Physical Exam Psychiatric Orientation:alert Apperance:+ disheveled Eye Contact:+ poor eye contact Motor Behavior:no abnormal motor movements and + psychomotor retardation Speech:+ mute Affect:+ flat affect Mood:+ depressed mood Thought Process:+ thought blocking Cognition:+ attention not intact Insight:+ impaired insight Judgement:+ severely impaired judgement Vital Signs (Past 24 Hours) Last Vital Signs Temp 37.1 C 03/26/21 13:27 Pulse 93 H 03/26/21 13:27 Resp 16 03/26/21 13:27 BP 131/83 03/26/21 13:27 Pulse Ox 95 03/24/21 20:28 Results & Data ([facility]) Current Inpatient Medications Current Inpatient Medications: Current Inpatient Medications Acetaminophen (Acetaminophen 325 Mg Tab) 650 mg PO Q4H PRN PRN Reason: Headache or Minor Fever Stop: 04/10/21 10:27 Last Admin: 03/16/21 10:34 Dose: 325 mg Documented by: Al Hydrox/Mg Hydrox/Simethicone (Aluminum/Magnesium Susp 30 Ml Udc) 30 ml PO Q4H PRN PRN Reason: GI Upset Stop: 04/10/21 10:27 Bismuth Subsalicylate (Bismuth Subsalicylate Liqd 236 Ml) 15 ml PO PRN PRN PRN Reason: Loose Stool Stop: 04/10/21 10:27 Clotrimazole (Clotrimazole 1% Cr 15 Gm Tube) 1 appln EXT HS OG Stop: 04/16/21 21:59 Last Admin: 03/25/21 20:29 Dose: 1 appln Documented by: Enoxaparin Sodium (Enoxaparin Inj 40 Mg/0.4 Ml Syr) 40 mg SQ QAM OG Stop: 04/22/21 08:59 Last Admin: 03/26/21 08:55 Dose: 40 mg Documented by: Hydroxyzine HCl (Hydroxyzine Hcl 25 Mg Tab) 50 mg PO HSZ PRN PRN Reason: Insomnia Stop: 04/10/21 10:27 Hydroxyzine HCl (Hydroxyzine Hcl 25 Mg Tab) 25 mg PO Q4H PRN PRN Reason: Anxiety Stop: 04/10/21 10:27 Lorazepam (Lorazepam 1 Mg Tab) 1 mg PO Q6 PRN PRN Reason: Anxiety/Agitation Stop: 04/10/21 08:14 Lorazepam (Lorazepam 1 Mg Tab) 1 mg PO DAILYBL [facility] Stop: 04/25/21 11:59 Last Admin: 03/26/21 12:11 Dose: Not Given Documented by: Lorazepam (Lorazepam 1 Mg Tab) 1 mg PO DAILYBD OG Stop: 04/24/21 17:14 Last Admin: 03/25/21 16:58 Dose: Not Given Documented by: Magnesium Hydroxide (Magnesium Hydroxide Susp 30 Ml Udc) 30 ml PO DAILY PRN PRN Reason: Constipation Stop: 04/10/21 10:27 Miscellaneous (Remove Patch Selegiline (Emsam)) 1 ea N/A Q24H OG Stop: 04/10/21 08:58 Last Admin: 03/26/21 08:57 Dose: 1 ea Documented by: Modafinil (Modafinil 100 Mg Tab) 50 mg PO QAM OG Stop: 04/25/21 08:59 Last Admin: 03/26/21 10:03 Dose: Not Given Documented by: Selegiline (Selegiline 6 Mg/24hr Tdsy) 6 mg TD DAILY OG Stop: 04/10/21 08:59 Last Admin: 03/26/21 08:57 Dose: 6 mg Documented by: Sodium Chloride (Sodium Chloride 0.65% Na Soln 45 Ml ([place])) 1 - 2 sprays NA PRN PRN PRN Reason: Nasal Dryness/Congestion Stop: 04/10/21 10:27 Mental Health & Subst Abuse Tx Psychiatrist Name of Psychiatrist: Oniel Negron Psychiatrist's Date of Appointment with Psychiatrist: 03/13/21 Time of Appointment with Psychiatrist: 9:20am Psychiatric Appointment Comment: Zoom *is on waiting list for appt. sooner Therapist Name of Therapist: Unknown Motor Equipment Captain Name of Motor Equipment Captain: Mauri ([facility]) Post Discharge Appointments Primary Care Physician Name Of Family Doctor: Unknown
[2021-03-26] MEDS: CLOTRIMAZOLE 1% CR 15 GM TUBE EXT SCH (21:26)
[2021-03-27] MEDS: SELEGILINE 6 MG/24 HR TD SCH (08:34)
[2021-03-27] MEDS: ENOXAPARIN INJ 40 MG/0.4 ML SYR SQ SCH (08:35)
[2021-03-27] MEDS: modafiniL 100 MG TAB PO SCH (08:46)
[2021-03-27] MEDS: [UNRECOGNIZED DRUG - REMARK] SCH (08:53)
[2021-03-27] MEDS: LORazepam 1 MG TAB PO SCH ×2 (12:06→17:12)
--- NOTE | 2021-03-27 15:17 | Psychiatric Progress Note ---
Date of Service March 27, 2021 Impression / Recommendations Impression The patient is a 40 year old with a history of schizoaffective disorder vs bipolar depression who was admitted [facility] failure of [facility] and [facility]. The patient is deemed unstable and requires psychiatric hospitalization for diagnostic clarification, safety and stabilization, medication management and development of further coping skills. Initially focussed on Ativan dosing for catatonia but no consistent response to meds over objection. Patient seemed worse on Zyprexa, very poor PO. Started Emsam (MAOI patch on 02/21/21). Will focus on medication over objection and readdress possible ECT or other med trials. 304 status granted. 03/27/21: remains regressed with symptoms of severe neurovegetative depression. Even without ativan, as he has refused po doses, he demonstrated the ability to move easily and rapidly while observed by staff attending to his sexual health needs. Plan: reviewed recent labwork, reviewed medication administration. If episodes of spitting persist will recheck labwork, at this point no concern for acute medical condition. (1) Bipolar disorder with depression: 03/27/21: continue to offer medications, he continues to refuse. Continuing to explore ways to involve his extended family or other apsects of care which could incentive his engagement in care. May need to consider if a less sedating antipsychotic medication should be re-trialed. Referral for [facility] has been accepted. 03/26/21: continue current medications, refused modafinil but will try again over next few days. Continue with ativan 1mg BIDM po 03/25/21: start modafinil 50 mg qAM, will monitor carefully for any interactions with MAOI. Discontinued ativan IM for refusal of po. Reducing ativan dosing from TID po to BID po in the afternoon to avoid combining morning stimulant with morning benzo as this would be counterproductive to stimulant trial. 03/24/21: continue current medications. 03/23/21: labwork done today and reviewed no significant changes from prior labwork, still has elevated Cl. Continue with lovenox, emsam patch, and ativan 1 mg po TID (with BID IM for refusal) 03/22/21: labs in am and resume Lovenox given regression past 3 days. 03/18/21: unable to care for self outside of hospital, continue Emsam patch, will not increase as I do not believe he can follow appropriate dietary restrictions at higher doses. 03/17/21: Ativan 1 mg PO TID (inject up to BID for refusal). 03/16/21: resume IM Ativan for refusal of PO Ativan. 03/15/21: Continue current medications. Making referral to [facility] given slow progression and he is still very far from his baseline which will require extended treatment and thus he will be best served by a longer term treatment approach. 03/14/21: Continue with current medications. Reviewed labwork, K+ improved but still signs of poor nutrition. Elevated ALT could be side effect from Emsam patch (occurs in <1/100 - 05/999 pts), will continue to monitor. may be able to consider transition to a po medication if he remains consistent with accepting po medications but for now Emsam patch benefit is felt to outweigh risk of slight ALT elevation. 03/13/21: Continue with current medications. [facility] will visit tomorrow. Labwork CMP tomorrow morning to ensure correction of hypokalemia. 03/12/21: Continue with current medications. Discussed with treatment team having his [facility] supports come for a visit and they will visit on . Reviewed his interactions with staff during evening hours/overnight in the chart and continues to show progress with engagement. 03/11/21: Continue with ativan 1 mg BID po, canceled IM as he is agreeing to voluntary po. Given steady improvement over the last 1 week consistent with e xpected timeline for symptom improvement from Emsam patch he may no longer need longer term care option if improvement persists at this rate. If progress stalls or regression occurs then will reconsider if longer term option for treatment is required. 03/10/21: Reduce ativan to 1 mg BID due to dizziness, low BP and possible fall yesterday. Will discontinue lovenox per his request and since he is now consistently moving around throughout the day and at night, discussed risk of blood clots if he doesn't continue to move around and ambulate frequently which he vocalized understanding of and agreement with. Given improvement in nutritional intake will hold off on rechecking labwork for now, will get repeat labs in 1 week on 03/14. 03/09/21: Reviewed interim progress. Continue Emsam patch and ativan 2mg BID trial-will monitor for excessive sedation. 03/08/21: Ativan 2 mg BID trial. 03/07/21: patient seen by neurology, appreciate input, seems severe vegetative symptoms due to depression though last few doses of Ativan have been more effective than previous. Continue Ativan 1 mg po BID (IM for refusal). Attempt to replete K with powder dissolved in juice. 03/04/21: will explore personal group home as concerns he will not improve to point he can make meals/meet requirements to return to [facility] during this stay. 03/03/21--continue same. Cannot attempt coadmin with stimulant trial for hypersomnia as contraindicated with MAOI. No medical decompensation that would necessitate referral to medical or seeking court order for ECT. At minimum behaviors are challenging but more appropriate when willing to interact with staff. Need to consider longer term care options given slow progression. 03/02/21--interim care reviewed. Continue EMSAM and Lovenox injection. 03/01/21--Day 9 of Emsam patch. Continuing with behavioral plan to encourage behavioral activation-he was provided with plan with goals of having him come out of his room to eat meals, cooperate with repositioning, stand up when his sheets are changed/or if he prefers to stay in bed until the evening then clean sheets can be provided for him to put on the bed or request help putting on the bed in the evening, and continue independently voiding in his bedside urinal, shower can be started for him but he should be encouraged to get into the shower on his own, encourage him to address basic hygiene by continuing to provide him with easy access to his toothbrush, shampoo, etc. 02/28/21--Day 8 of Emsam patch. Now seeing new pattern of daily food intake which is encouraging. Continues to present with regressed behaviors and refusal to interact during the day. 02/27/21--Continue with Emsam patch. Getting out of bed more in the evenings and eating more. Lack of engagement during the day was volitional-pulling blanket over his head after he saw me enter his room. Also becoming more irritable with staff when he is encouraged to do more on his own for behavioral activation. 02/26/21-Continue with Emsam patch. 304 status granted. Ate last night and interacted with staff but no engagement today. 02/25/21--Continues to demonstrate severe depression with neurovegetative symptoms with no engagement with staff. Behavioral plan challenged by finding a reward/incentive that he enjoys. Continuing to encourage behavioral activation. Petitioned for 304 status with hearing scheduled for tomorrow given ongoing symptom burden and need for ongoing treatment. Remains on lovenox for DVT prophylaxis. Continue with Emsam patch. 02/24/21--Remains isolative and will not engage verbally. Encouragingly is at tending slightly more to some of his ADLs, will continue with behavioral plan in hopes to continue encouraging behavioral activation although food does not seem to be a good motivator/reward for him. Will continue to think about other possible motivators for him to help encourage increased activity, po intake and engagement with therapeutic milieu. No signs of HTN or other side effects from MAOI at this point. 02/23/21--Continues to demonstrate neurovegetative symptoms of depression, remaining in bed most of the day but sometimes more engagement in the evenings. Will implement behavioral plan to encourage behavioral activation to treat neurovegetative symptoms in conjunction with Emsam as well as to encourage increased participation with ADLs. Nursing to provide him with tools to help him eat and promote good hygiene (brining in meals, supplies to wash up) and then if he does this independently will bring in ice cream or chips as reward to see if this helps with activation and increased po intake. 02/22/21--neurologic work up with EEG and brain MRI unremarkable, continue Emsam trial. 02/21/21--complex differential--depression with psychotic features in a patient with bipolar disorder most likely, certainly not typcial catatonia. No hx of hyperphagia or hypersexuality known that would suggest Kleine-Hess syndrome. Will proceed with Emsam patch 6 mg trial as only means to administer antidepressant. Will check with an ECT facility to determine if can treat patient if pursue a court order (will await emsam trial first). MRI brain (patient will need various x rays first as can't answer screening questions, no hx of pacemaker on chart). bedside EEG to rule out status epilepticus. 02/19/21--non-formulary request for Emsam patch. Hasn't taken antidepressants for at least 6 weeks. Would reconsider current med doses when this becomes available. without antidepressant he will continue to decompensate medically and is at significant risk of further decompensation. 02/17/21--lytes, Bun/Cr improved; given sleep phase shift desirable to shift antipsychotic to pm meal with IM Zyprexa for refusal. Bedside EEG likely poor quality/low yeild but consider if no improvement. 02/16/21--Reviewed care by Dr. Garces in italics. will d/c IM Ativan in favor of Zyprexa IM for failure to take Latuda. Does take Lorazepam prn PO, adjust dose and frequency and monitor use. Will repeat labs and PO intake so variable and hard to track. 02/09/2021--admitted to [facility]. Ativan 2mg SL TID ordered. Track Is&Os. Vitals BID. 02/10/2021--continue with ativan 2mg TID SL. Showing significant improving in catatonic symptoms since ativan trial last night. If he continues to walk around no need for DVT prophylaxis. Will consider if 302 needs to be converted to 303 based on progress today. 02/11/2021--continue with scheduled ativan. Less engagement today but still eating and drinking. Plan for likely 303 given his inability/reluctance to engage in treatment. Reviewed outside records. 02/12/2021--continues to refuse ativan today and won't engage with anyone nor leave his bed except to use the bathroom and to eat at night. Given some movement in the evening and to the bathroom he doesn't require DVT prophylaxis at this time but this remains a concern should he clinically worsen and will continue to monitor his nutritional and medical status closely. 02/13/2021--placed on 303 status due to ongoing decompensation due to catatonia including refusal of medication, not eating, not drinking, not communicating with anyone and lying in bed all day. Once catatonia begins to improve with treatment will aim to start latuda which helped previously. [place] to require medications over objection for ativan to treat catatonia. If catatonia does not respond quickly to ativan then will consider if DVT prophylaxis should be initiated. 02/14/2021--no significant change in behaviors with additional of scheduled ativan 2 mg BID as medication over objection. Given concern for skin breakdown consult was placed for wound nurse. Given concern for possible DVT and after discussion with hospitalist will begin lovenox 40mg subQ daily. David was able to vocalize consent for this as he remains mute and unable/unwilling to engage but explained the risks, benefits, alternatives and rationale for lovenox and that we will be offering this to him. 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 02/15/2021--Have ruled out catatonia given inconsistent response to ativan trial, multiple observed examples of volitional movement immediately following periods of patient lying in bed and mute. Subsequent catatonia scales have been negative and patient feels that his symptoms represent withdrawn features of anxiety and depression. Given bipolar depression with neurovegetative features will start latuda. Encouragingly he is eating more and drinking more and got out of bed twice last night. Risk Factors Assessment Male: Yes : Yes Do You Have Access To A Gun?: No (in supportive living enviornment, pt unable to answer ) Mental Health Diagnoses: Yes Previous Psychiatric Hospitalization: Yes Protective Factors Assessment Employed: No Interval History Identifying Information 40 yo man with history of catatonia, depression, bipolar disorder vs schizophrenia admitted due to concern for decompensation with failure of self- care at [facility]. Admitted on 302, now 304. Chief Complaint mute Review of Systems Notes drank multiple bottles of gingerale today. Sleep Information Total Hours of Sleep: 6 Sleep Comments: pt on q-15 minute checks Meal Information Percent Meal Consumed - Breakfast: 0 Percent Meal Consumed - Lunch: 0 Percent Meal Consumed - Dinner: 0 Nutrition Comment: drank a bottle of gingerale Subjective Subjective Patient was seen & assessed and interval progress reviewed with treatment team nursing and social work. Did not engage with evening staff and did not eat. Still drinking and voiding in the bathroom. Today attended to his sexual health while staff reviewed his treatment team plan with him. I attempted to speak with him on multiple occasions and he remained mute throughout these extended encounters. Reflected to him our goals of finding medications that may help and hope that we could help him connect with his extended family or his daughter if he desires this. Later in the afternoon he was heard and observed spitting onto his jasmine and then actively avoiding spitting into an emesis basin when this was provided. He was also noted to have voided on himself and 4 staff were required to help him change clothes, clean off and get repositioned into a new clean bed. He remained resistant to care at times and other times volitionally participative with parts of care (i.e. putting on his own new shirt) throughout. Continues to grit his teeth when offers are made for him to accept po medication. Has refused ativan and stimulant for the last 2 days. Physical Exam Psychiatric Orientation:alert Apperance:+ disheveled Eye Contact:+ poor eye contact Motor Behavior:no abnormal motor movements and + psychomotor retardation Speech:+ mute Affect:+ flat affect Mood:+ depressed mood Thought Process:+ thought blocking Cognition:+ attention not intact Insight:+ impaired insight Judgement:+ severely impaired judgement Vital Signs (Past 24 Hours) Last Vital Signs Temp 37.3 C 03/27/21 14:00 Pulse 128 H 03/27/21 14:00 Resp 18 03/27/21 14:00 BP 101/62 03/27/21 14:00 Pulse Ox 95 03/27/21 14:00 Results & Data ([facility]) Current Inpatient Medications Current Inpatient Medications: Current Inpatient Medications Acetaminophen (Acetaminophen 325 Mg Tab) 650 mg PO Q4H PRN PRN Reason: Headache or Minor Fever Stop: 04/10/21 10:27 Last Admin: 03/16/21 10:34 Dose: 325 mg Documented by: Al Hydrox/Mg Hydrox/Simethicone (Aluminum/Magnesium Susp 30 Ml Udc) 30 ml PO Q4H PRN PRN Reason: GI Upset Stop: 04/10/21 10:27 Bismuth Subsalicylate (Bismuth Subsalicylate Liqd 236 Ml) 15 ml PO PRN PRN PRN Reason: Loose Stool Stop: 04/10/21 10:27 Clotrimazole (Clotrimazole 1% Cr 15 Gm Tube) 1 appln EXT HS OG Stop: 04/16/21 21:59 Last Admin: 03/26/21 21:26 Dose: 1 appln Documented by: Enoxaparin Sodium (Enoxaparin Inj 40 Mg/0.4 Ml Syr) 40 mg SQ QAM OG Stop: 04/22/21 08:59 Last Admin: 03/27/21 08:35 Dose: 40 mg Documented by: Hydroxyzine HCl (Hydroxyzine Hcl 25 Mg Tab) 50 mg PO HSZ PRN PRN Reason: Insomnia Stop: 04/10/21 10:27 Hydroxyzine HCl (Hydroxyzine Hcl 25 Mg Tab) 25 mg PO Q4H PRN PRN Reason: Anxiety Stop: 04/10/21 10:27 Lorazepam (Lorazepam 1 Mg Tab) 1 mg PO Q6 PRN PRN Reason: Anxiety/Agitation Stop: 04/10/21 08:14 Lorazepam (Lorazepam 1 Mg Tab) 1 mg PO DAILYBL OG Stop: 04/25/21 11:59 Last Admin: 03/27/21 12:06 Dose: Not Given Documented by: Lorazepam (Lorazepam 1 Mg Tab) 1 mg PO DAILYBD OG Stop: 04/24/21 17:14 Last Admin: 03/26/21 16:38 Dose: Not Given Documented by: Magnesium Hydroxide (Magnesium Hydroxide Susp 30 Ml Udc) 30 ml PO DAILY PRN PRN Reason: Constipation Stop: 04/10/21 10:27 Miscellaneous (Remove Patch Selegiline (Emsam)) 1 ea N/A Q24H OG Stop: 04/10/21 08:58 Last Admin: 03/27/21 08:53 Dose: 1 ea Documented by: Modafinil (Modafinil 100 Mg Tab) 50 mg PO QAM OG Stop: 04/25/21 08:59 Last Admin: 03/27/21 08:46 Dose: Not Given Documented by: Selegiline (Selegiline 6 Mg/24hr Tdsy) 6 mg TD DAILY OG Stop: 04/10/21 08:59 Last Admin: 03/27/21 08:34 Dose: 6 mg Documented by: Sodium Chloride (Sodium Chloride 0.65% Na Soln 45 Ml ([place])) 1 - 2 sprays NA PRN PRN PRN Reason: Nasal Dryness/Congestion Stop: 04/10/21 10:27 Mental Health & Subst Abuse Tx Psychiatrist Name of Psychiatrist: Oniel Negron Psychiatrist's Date of Appointment with Psychiatrist: 03/13/21 Time of Appointment with Psychiatrist: 9:20am Psychiatric Appointment Comment: Zoom *is on waiting list for appt. sooner Therapist Name of Therapist: Unknown Still Operator [facility]iskey Name of Still Operator Whiskey: Mauri ([facility]) Post Discharge Appointments Primary Care Physician Name Of Family Doctor: Unknown
[2021-03-27] MEDS ORDERED: LORazepam 2 MG/ML VIAL (IM USE) IM STA (19:00)
[2021-03-27 20:02] LABS: Potassium 3.6 mmol/L (3.5-5.1)
[2021-03-27] MEDS: CLOTRIMAZOLE 1% CR 15 GM TUBE EXT SCH (20:36)
[2021-03-28] MEDS: ENOXAPARIN INJ 40 MG/0.4 ML SYR SQ SCH (09:46)
[2021-03-28] MEDS: SELEGILINE 6 MG/24 HR TD SCH (09:50)
[2021-03-28] MEDS: [UNRECOGNIZED DRUG - REMARK] SCH (09:56)
[2021-03-28] MEDS: modafiniL 100 MG TAB PO SCH (09:56)
[2021-03-28] MEDS: LORazepam 1 MG TAB PO SCH ×2 (13:04→16:53)
[2021-03-28 13:19] LABS: Albumin Level 3.5 gm/dl (3.4-5.0); BUN Creatinine Ratio 11.6 (10-20); Calcium 9.7 mg/dl (8.5-10.1); Est GFR (African American) 107.3 ml/min; Est GFR (Non-African American) 92.6 ml/min; Potassium 3.6 mmol/L (3.5-5.1)
[2021-03-28 13:22] LABS: Bilirubin,Total 0.9 mg/dl (0.2-1); Globulin 3.6 gm/dl (2.5-4.0); Total Protein 7.1 gm/dl (6.4-8.2)
--- NOTE | 2021-03-28 15:18 | Psychiatric Progress Note ---
Date of Service March 28, 2021 Impression / Recommendations Impression The patient is a 40 year old with a history of schizoaffective disorder vs bipolar depression who was admitted for failure of self-care and worsening decompensation at halfway. The patient is deemed unstable and requires psychiatric hospitalization for diagnostic clarification, safety and stabilization, medication management and development of further coping skills. Initially focussed on Ativan dosing for catatonia but no consistent response to meds over objection. Patient seemed worse on Zyprexa, very poor PO. Started Emsam (MAOI patch on 02/21/21). Will focus on medication over objection and readdress possible ECT or other med trials. 304 status granted. 03/28/21: remains regressed with symptoms of severe neurovegetative depression though at other times interacts in a logical manner with staff and attends to basic needs. Plan: reviewed labwork including CMP today and discussed with hospitalist who feels no further workup or concern at this time, reviewed medication administration-no concern for benzo withdrawal. (1) Bipolar disorder with depression: 03/28/21: continue to offer medications. Gave ativan 1mg IM x1 last night after additional episode of spitting. Repeat labwork today showing improvement in nutritional status (albumin and total protein now normal and BUN/CR wnl). 03/27/21: continue to offer medications, he continues to refuse. Continuing to explore ways to involve his extended family or other aspects of care which could incentive his engagement in care. May need to consider if a less sedating antipsychotic medication should be re-trialed. Referral for [facility] has been accepted. 03/26/21: continue current medications, refused modafinil but will try again over next few days. Continue with ativan 1mg BIDM po 03/25/21: start modafinil 50 mg qAM, will monitor carefully for any interactions with MAOI. Discontinued ativan IM for refusal of po. Reducing ativan dosing from TID po to BID po in the afternoon to avoid combining morning stimulant with morning benzo as this would be counterproductive to stimulant trial. 03/24/21: continue current medications. 03/23/21: labwork done today and reviewed no significant changes from prior labwork, still has elevated Cl. Continue with lovenox, emsam patch, and ativan 1 mg po TID (with BID IM for refusal) 03/22/21: labs in am and resume Lovenox given regression past 3 days. 03/18/21: unable to care for self outside of hospital, continue Emsam patch, will not increase as I do not believe he can follow appropriate dietary restrictions at higher doses. 03/17/21: Ativan 1 mg PO TID (inject up to BID for refusal). 03/16/21: resume IM Ativan for refusal of PO Ativan. 03/15/21: Continue current medications. Making referral to [facility] given slow progression and he is still very far from his baseline which will require extended treatment and thus he will be best served by a longer term treatment approach. 03/14/21: Continue with current medications. Reviewed labwork, K+ improved but still signs of poor nutrition. Elevated ALT could be side effect from Emsam patch (occurs in <1/100 - 05/999 pts), will continue to monitor. may be able to consider transition to a po medication if he remains consistent with accepting po medications but for now Emsam patch benefit is felt to outweigh risk of slight ALT elevation. 03/13/21: Continue with current medications. Supports from [employer] will visit tomorrow. Labwork CMP tomorrow morning to ensure correction of hypokalemia. 03/12/21: Continue with current medications. Discussed with treatment team having his halfway supports come for a visit and they will visit on . Reviewed his interactions with staff during evening hours/overnight in the chart and continues to show progress with engagement. 03/11/21: Continue with ativan 1 mg BID po, canceled IM as he is agreeing to voluntary po. Given steady improvement over the last 1 week consistent with expected timeline for symptom improvement from Emsam patch he may no longer need longer term care option if improvement persists at this rate. If progress stalls or regression occurs then will reconsider if longer term option for treatment is required. 03/10/21: Reduce ativan to 1 mg BID due to dizziness, low BP and possible fall yesterday. Will discontinue lovenox per his request and since he is now consistently moving around throughout the day and at night, discussed risk of blood clots if he doesn't continue to move around and ambulate frequently which he vocalized understanding of and agreement with. Given improvement in nutritional intake will hold off on rechecking labwork for now, will get repeat labs in 1 week on 03/14. 03/09/21: Reviewed interim progress. Continue Emsam patch and ativan 2mg BID trial-will monitor for excessive sedation. 03/08/21: Ativan 2 mg BID trial. 03/07/21: patient seen by neurology, appreciate input, seems severe vegetative symptoms due to depression though last few doses of Ativan have been more effective than previous. Continue Ativan 1 mg po BID (IM for refusal). Attempt to replete K with powder dissolved in juice. 03/04/21: will explore personal assisted as concerns he will not improve to point he can make meals/meet requirements to return to [facility] during this stay. 03/03/21--continue same. Cannot attempt coadmin with stimulant trial for hypersomnia as contraindicated with MAOI. No medical decompensation that would necessitate referral to medical or seeking court order for ECT. At minimum behaviors are challenging but more appropriate when willing to interact with staff. Need to consider longer term care options given slow progression. 03/02/21--interim care reviewed. Continue EMSAM and Lovenox injection. 03/01/21--Day 9 of Emsam patch. Continuing with behavioral plan to encourage behavioral activation-he was provided with plan with goals of having him come out of his room to eat meals, cooperate with repositioning, stand up when his sheets are changed/or if he prefers to stay in bed until the evening then clean sheets can be provided for him to put on the bed or request help putting on the bed in the evening, and continue independently voiding in his bedside urinal, shower can be started for him but he should be encouraged to get into the shower on his own, encourage him to address basic hygiene by continuing to provide him with easy access to his toothbrush, shampoo, etc. 02/28/21--Day 8 of Emsam patch. Now seeing new pattern of daily food intake which is encouraging. Continues to present with regressed behaviors and refusal to interact during the day. 02/27/21--Continue with Emsam patch. Getting out of bed more in the evenings and eating more. Lack of engagement during the day was volitional-pulling blanket over his head after he saw me enter his room. Also becoming more irritable with staff when he is encouraged to do more on his own for behavioral activation. 02/26/21-Continue with Emsam patch. 304 status granted. Ate last night and interacted with staff but no engagement today. 02/25/21--Continues to demonstrate severe depression with neurovegetative symptoms with no engagement with staff. Behavioral plan challenged by finding a reward/incentive that he enjoys. Continuing to encourage behavioral activation. Petitioned for 304 status with hearing scheduled for tomorrow given ongoing symptom burden and need for ongoing treatment. Remains on lovenox for DVT prophylaxis. Continue with Emsam patch. 02/24/21--Remains isolative and will not engage verbally. Encouragingly is attending slightly more to some of his ADLs, will continue with behavioral plan in hopes to continue encouraging behavioral activation although food does not seem to be a good motivator/reward for him. Will continue to think about other possible motivators for him to help encourage increased activity, po intake and engagement with therapeutic milieu. No signs of HTN or other side effects from MAOI at this point. 02/23/21--Continues to demonstrate neurovegetative symptoms of depression, remaining in bed most of the day but sometimes more engagement in the evenings. Will implement behavioral plan to encourage behavioral activation to treat neurovegetative symptoms in conjunction with Emsam as well as to encourage increased participation with ADLs. Nursing to provide him with tools to help him eat and promote good hygiene (brining in meals, supplies to wash up) and then if he does this independently will bring in ice cream or chips as reward to see if this helps with activation and increased po intake. 02/22/21--neurologic work up with EEG and brain MRI unremarkable, continue Emsam trial. 02/21/21--complex differential--depression with psychotic features in a patient with bipolar disorder most likely, certainly not typcial catatonia. No hx of hyperphagia or hypersexuality known that would suggest Kleine-Hess syndrome. Will proceed with Emsam patch 6 mg trial as only means to administer antidepressant. Will check with an ECT facility to determine if can treat patient if pursue a court order (will await emsam trial first). MRI brain (patient will need various x rays first as can't answer screening questions, no hx of pacemaker on chart). bedside EEG to rule out status epilepticus. 02/19/21--non-formulary request for Emsam patch. Hasn't taken antidepressants for at least 6 weeks. Would reconsider current med doses when this becomes available. without antidepressant he will continue to decompensate medically and is at significant risk of further decompensation. 02/17/21--lytes, Bun/Cr improved; given sleep phase shift desirable to shift antipsychotic to pm meal with IM Zyprexa for refusal. Bedside EEG likely poor quality/low yeild but consider if no improvement. 02/16/21--Reviewed care by Dr. Garces in italics. will d/c IM Ativan in favor of Zyprexa IM for failure to take Latuda. Does take Lorazepam prn PO, adjust dose and frequency and monitor use. Will repeat labs and PO intake so variable and hard to track. 02/09/2021--admitted to [facility]. Ativan 2mg SL TID ordered. Track Is&Os. Vitals BID. 02/10/2021--continue with ativan 2mg TID SL. Showing significant improving in catatonic symptoms since ativan trial last night. If he continues to walk around no need for DVT prophylaxis. Will consider if 302 needs to be converted to 303 based on progress today. 02/11/2021--continue with scheduled ativan. Less engagement today but still eating and drinking. Plan for likely 303 given his inability/reluctance to engage in treatment. Reviewed outside records. 02/12/2021--continues to refuse ativan today and won't engage with anyone nor leave his bed except to use the bathroom and to eat at night. Given some movement in the evening and to the bathroom he doesn't require DVT prophylaxis at this time but this remains a concern should he clinically worsen and will continue to monitor his nutritional and medical status closely. 02/13/2021--placed on 303 status due to ongoing decompensation due to catatonia including refusal of medication, not eating, not drinking, not communicating with anyone and lying in bed all day. Once catatonia begins to improve with nichelle tment will aim to start latuda which helped previously. Bandy to require medications over objection for ativan to treat catatonia. If catatonia does not respond quickly to ativan then will consider if DVT prophylaxis should be initiated. 02/14/2021--no significant change in behaviors with additional of scheduled ativan 2 mg BID as medication over objection. Given concern for skin breakdown consult was placed for wound nurse. Given concern for possible DVT and after discussion with hospitalist will begin lovenox 40mg subQ daily. David was able to vocalize consent for this as he remains mute and unable/unwilling to engage but explained the risks, benefits, alternatives and rationale for lovenox and that we will be offering this to him. 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 02/15/2021--Have ruled out catatonia given inconsistent response to ativan trial, multiple observed examples of volitional movement immediately following periods of patient lying in bed and mute. Subsequent catatonia scales have been negative and patient feels that his symptoms represent withdrawn features of anxiety and depression. Given bipolar depression with neurovegetative features will start latuda. Encouragingly he is eating more and drinking more and got out of bed t chary last night. Risk Factors Assessment Male: Yes : Yes Do You Have Access To A Gun?: No (in supportive living enviornment, pt unable to answer ) Mental Health Diagnoses: Yes Previous Psychiatric Hospitalization: Yes Protective Factors Assessment Employed: No Interval History Identifying Information 40 yo man with history of catatonia, depression, bipolar disorder vs schizophrenia admitted due to concern for decompensation with failure of self- care at R. Admitted on 302, now 304. Chief Complaint mute Review of Systems Sleep Information Total Hours of Sleep: 4.25 Sleep Comments: pt on q-15 minute checks Meal Information Percent Meal Consumed - Breakfast: 0 Percent Meal Consumed - Lunch: 0 Percent Meal Consumed - Dinner: 0 Nutrition Comment: drank a bottle of gingerale Subjective Subjective Patient was seen & assessed and interval progress reviewed with treatment team nursing and social work. Last night had another episode of emesis vs spitting up. Got electrolytes and followed vitals. Then last night got out of bed and interacted with staff asking for help changing the linens on his bed and ate and drank. Today is back in bed and mute on encounters with staff. Was heard having one brief episode of possibly spitting up again but no evidence of any emesis nor spit. Mute every time I attempted to interact with him. Physical Exam Psychiatric Orientation: alert; + uncooperative Apperance: + disheveled Eye Contact: + poor eye contact Motor Behavior: no abnormal motor movements and + psychomotor retardation Speech: + mute Thought Process: + thought blocking Cognition: + attention not intact Insight: + impaired insight Judgement: + severely impaired judgement Vital Signs (Past 24 Hours) Last Vital Signs Temp 36.7 C 03/27/21 20:43 Pulse 103 H 03/28/21 14:09 Resp 16 03/27/21 21:19 BP 115/81 03/28/21 14:09 Pulse Ox 97 03/27/21 18:57 Results & Data ([facility]) Laboratory Results Laboratory Results - last 24 hr 03/27/21 03/28/21 19:20 12:32 Sodium 141 142 Potassium 3.6 3.6 Chloride 112 H 111 H Carbon Dioxide 15 L 18 L Anion Gap 15.0 H 13.0 H BUN 12 Creatinine 1.01 Est Cr Clr Drug Dosing 127.0 Est GFR ( Amer) 107.3 Est GFR (Non-Af Amer) 92.6 BUN/Creatinine Ratio 11.6 Glucose 111 H Calcium 9.7 Total Bilirubin 0.9 AST 10 L ALT 25 Alkaline Phosphatase 118 H Total Protein 7.1 Albumin 3.5 Globulin 3.6 Albumin/Globulin Ratio 1.0 Current Inpatient Medications Current Inpatient Medications: Current Inpatient Medications Acetaminophen (Acetaminophen 325 Mg Tab) 650 mg PO Q4H PRN PRN Reason: Headache or Minor Fever Stop: 04/10/21 10:27 Last Admin: 03/16/21 10:34 Dose: 325 mg Documented by: Al Hydrox/Mg Hydrox/Simethicone (Aluminum/Magnesium Susp 30 Ml Udc) 30 ml PO Q4H PRN PRN Reason: GI Upset Stop: 04/10/21 10:27 Bismuth Subsalicylate (Bismuth Subsalicylate Liqd 236 Ml) 15 ml PO PRN PRN PRN Reason: Loose Stool Stop: 04/10/21 10:27 Clotrimazole (Clotrimazole 1% Cr 15 Gm Tube) 1 appln EXT HS OG Stop: 04/16/21 21:59 Last Admin: 03/27/21 20:36 Dose: 1 appln Documented by: Enoxaparin Sodium (Enoxaparin Inj 40 Mg/0.4 Ml Syr) 40 mg SQ QAM OG Stop: 04/22/21 08:59 Last Admin: 03/28/21 09:46 Dose: 40 mg Documented by: Hydroxyzine HCl (Hydroxyzine Hcl 25 Mg Tab) 50 mg PO HSZ PRN PRN Reason: Insomnia Stop: 04/10/21 10:27 Hydroxyzine HCl (Hydroxyzine Hcl 25 Mg Tab) 25 mg PO Q4H PRN PRN Reason: Anxiety Stop: 04/10/21 10:27 Lorazepam (Lorazepam 1 Mg Tab) 1 mg PO Q6 PRN PRN Reason: Anxiety/Agitation Stop: 04/10/21 08:14 Lorazepam (Lorazepam 1 Mg Tab) 1 mg PO DAILYBL OG Stop: 04/25/21 11:59 Last Admin: 03/28/21 13:04 Dose: Not Given Documented by: Lorazepam (Lorazepam 1 Mg Tab) 1 mg PO DAILYBD OG Stop: 04/24/21 17:14 Last Admin: 03/27/21 17:12 Dose: Not Given Documented by: Magnesium Hydroxide (Magnesium Hydroxide Susp 30 Ml Udc) 30 ml PO DAILY PRN PRN Reason: Constipation Stop: 04/10/21 10:27 Miscellaneous (Remove Patch Selegiline (Emsam)) 1 ea N/A Q24H OG Stop: 04/10/21 08:58 Last Admin: 03/28/21 09:56 Dose: 1 ea Documented by: Modafinil (Modafinil 100 Mg Tab) 50 mg PO QAM OG Stop: 04/25/21 08:59 Last Admin: 03/28/21 09:56 Dose: Not Given Documented by: Selegiline (Selegiline 6 Mg/24hr Tdsy) 6 mg TD DAILY OG Stop: 04/10/21 08:59 Last Admin: 03/28/21 09:50 Dose: 6 mg Documented by: Sodium Chloride (Sodium Chloride 0.65% Na Soln 45 Ml (Ernest)) 1 - 2 sprays NA PRN PRN PRN Reason: Nasal Dryness/Congestion Stop: 04/10/21 10:27 Mental Health & Subst Abuse Tx Psychiatrist Name of Psychiatrist: Oniel Negron Psychiatrist's Date of Appointment with Psychiatrist: 03/13/21 Time of Appointment with Psychiatrist: 9:20am Psychiatric Appointment Comment: Zoom *is on waiting list for appt. sooner Therapist Name of Therapist: Unknown Mechanical Assembler Name of Mechanical Assembler: Mauri ([facility]) Post Discharge Appointments Primary Care Physician Name Of Family Doctor: Unknown
--- NOTE | 2021-03-28 18:35 | Communication Note ---
Date of Service: March 28, [address] Garces. Interim history reviewed. Patient continues with very inconsistent response to treatment. He has days with little to no PO intake even with IM Ativan (which he doesn't resist). Minimal response to Emsam patch but only option for depression. Behavior is more organized when he does interact but seems very paranoid when attempt 1-on-1 interactions and/or thought blocked. He has not be retried on an antipsychotic after his decline with IM Zyprexa prior to his trial of Emsam. This patient continues to meet criteria for medications over objection as without this intervention and extended involuntary treatment on the unit he would be at risk of or serious disability. I support medications over objection. With Haldol a good choice as regular acting IM and COPPOLA. Encourage to watch for sedation and hypotension combined with Emsam.
[2021-03-28] MEDS: CLOTRIMAZOLE 1% CR 15 GM TUBE EXT SCH (22:19)
[2021-03-29] MEDS: ENOXAPARIN INJ 40 MG/0.4 ML SYR SQ SCH (08:53)
[2021-03-29] MEDS: SELEGILINE 6 MG/24 HR TD SCH (08:55)
[2021-03-29] MEDS: [UNRECOGNIZED DRUG - REMARK] SCH (08:55)
[2021-03-29] MEDS: modafiniL 100 MG TAB PO SCH (09:39)
[2021-03-29] MEDS: LORazepam 1 MG TAB PO SCH ×2 (12:09→13:39)
[2021-03-29] MEDS: haloperidoL 0.5 MG TAB PO SCH (13:39)
[2021-03-29] MEDS: HALOPERIDOL LACTATE 5 MG/ML 1 ML VIAL IM PRN (13:59)
[2021-03-29] MEDS: LORazepam 2 MG/ML VIAL (IM USE) IM PRN (14:00)
--- NOTE | 2021-03-29 14:54 | Psychiatric Progress Note ---
Date of Service March 29, 2021 Impression / Recommendations Impression The patient is a 40 year old with a history of schizoaffective disorder vs bipolar depression who was admitted for failure of self-care and [facility]. The patient is deemed unstable and requires psychiatric hospitalization for diagnostic clarification, safety and stabilization, medication management and development of further coping skills. Initially focussed on Ativan dosing for catatonia but no consistent response to meds over objection. Patient seemed worse on Zyprexa, very poor PO. Started Emsam (MAOI patch on 02/21/21). Will focus on medication over objection and readdress possible ECT or other med trials. 304 status granted. 03/29/21: remains regressed with symptoms of severe neurovegetative depression though at other times interacts in a logical manner with staff and attends to basic needs. Plan: starting haldol for suspected psychosis leading to lack of personal care, thought blocking, negative sx and avolition. (1) Bipolar disorder with depression: 03/29/21: Starting haldol 2.5 mg po or IM and ativan 1mg po or IM for suspected psychosis with negativism, lack of personal care, thought blocking/negative sx and avolition. Continue Emsam patch. Discontinued modafinil. 03/28/21: continue to offer medications. Gave ativan 1mg IM x1 last night after additional episode of spitting. Repeat labwork today showing improvement in nutritional status (albumin and total protein now normal and BUN/CR wnl). 03/27/21: continue to offer medications, he continues to refuse. Continuing to explore ways to involve his extended family or other aspects of care which could incentive his engagement in care. May need to consider if a less sedating antipsychotic medication should be re-trialed. Referral for [facility] has been accepted. 03/26/21: continue current medications, refused modafinil but will try again over next few days. Continue with ativan 1mg BIDM po 03/25/21: start modafinil 50 mg qAM, will monitor carefully for any interactions with MAOI. Discontinued ativan IM for refusal of po. Reducing ativan dosing from TID po to BID po in the afternoon to avoid combining morning stimulant with morning benzo as this would be counterproductive to stimulant trial. 03/24/21: continue current medications. 03/23/21: labwork done today and reviewed no significant changes from prior labwork, still has elevated Cl. Continue with lovenox, emsam patch, and ativan 1 mg po TID (with BID IM for refusal) 03/22/21: labs in am and resume Lovenox given regression past 3 days. 03/18/21: unable to care for self outside of hospital, continue Emsam patch, will not increase as I do not believe he can follow appropriate dietary restrictions at higher doses. 03/17/21: Ativan 1 mg PO TID (inject up to BID for refusal). 03/16/21: resume IM Ativan for refusal of PO Ativan. 03/15/21: Continue current medications. Making referral to [facility] given slow progression and he is still very far from his baseline which will require extended treatment and thus he will be best served by a longer term treatment approach. 03/14/21: Continue with current medications. Reviewed labwork, K+ improved but still signs of poor nutrition. Elevated ALT could be side effect from Emsam patch (occurs in <1/100 - 05/999 pts), will continue to monitor. may be able to consider transition to a po medication if he remains consistent with accepting po medications but for now Emsam patch benefit is felt to outweigh risk of slight ALT elevation. 03/13/21: Continue with current medications. Supports from [facility] will visit tomorrow. Labwork CMP tomorrow morning to ensure correction of hypokalemia. 03/12/21: Continue with current medications. Discussed with treatment team having his jail supports come for a visit and they will visit on . Reviewed his interactions with staff during evening hours/overnight in the chart and continues to show progress with engagement. 03/11/21: Continue with ativan 1 mg BID po, canceled IM as he is agreeing to voluntary po. Given steady improvement over the last 1 week consistent with expected timeline for symptom improvement from Emsam patch he may no longer need longer term care option if improvement persists at this rate. If progress stalls or regression occurs then will reconsider if longer term option for treatment is required. 03/10/21: Reduce ativan to 1 mg BID due to dizziness, low BP and possible fall yesterday. Will discontinue lovenox per his request and since he is now consistently moving around throughout the day and at night, discussed risk of blood clots if he doesn't continue to move around and ambulate frequently which he vocalized understanding of and agreement with. Given improvement in nutritional intake will hold off on rechecking labwork for now, will get repeat labs in 1 week on 03/14. 03/09/21: Reviewed interim progress. Continue Emsam patch and ativan 2mg BID trial-will monitor for excessive sedation. 03/08/21: Ativan 2 mg BID trial. 03/07/21: patient seen by neurology, appreciate input, seems severe vegetative symptoms due to depression though last few doses of Ativan have been more effective than previous. Continue Ativan 1 mg po BID (IM for refusal). Attempt to replete K with powder dissolved in juice. 03/04/21: will explore personal chcf as concerns he will not improve to point he can make meals/meet requirements to return to [facility] during this stay. 03/03/21--continue same. Cannot attempt coadmin with stimulant trial for hypersomnia as contraindicated with MAOI. No medical decompensation that would necessitate referral to medical or seeking court order for ECT. At minimum behaviors are challenging but more appropriate when willing to interact with staff. Need to consider longer term care options given slow progression. 03/02/21--interim care reviewed. Continue EMSAM and Lovenox injection. 03/01/21--Day 9 of Emsam patch. Continuing with behavioral plan to encourage behavioral activation-he was provided with plan with goals of having him come out of his room to eat meals, cooperate with repositioning, stand up when his sheets are changed/or if he prefers to stay in bed until the evening then clean sheets can be provided for him to put on the bed or request help putting on the bed in the evening, and continue independently voiding in his bedside urinal, shower can be started for him but he should be encouraged to get into the shower on his own, encourage him to address basic hygiene by continuing to provide him with easy access to his toothbrush, shampoo, etc. 02/28/21--Day 8 of Emsam patch. Now seeing new pattern of daily food intake which is encouraging. Continues to present with regressed behaviors and refusal to interact during the day. 02/27/21--Continue with Emsam patch. Getting out of bed more in the evenings and eating more. Lack of engagement during the day was volitional-pulling blanket over his head after he saw me enter his room. Also becoming more irritable with staff when he is encouraged to do more on his own for behavioral activation. 02/26/21-Continue with Emsam patch. 304 status granted. Ate last night and interacted with staff but no engagement today. 02/25/21--Continues to demonstrate severe depression with neurovegetative symptoms with no engagement with staff. Behavioral plan challenged by finding a reward/incentive that he enjoys. Continuing to encourage behavioral activation. Petitioned for 304 status with hearing scheduled for tomorrow given ongoing symptom burden and need for ongoing treatment. Remains on lovenox for DVT prophylaxis. Continue with Emsam patch. 02/24/21--Remains isolative and will not engage verbally. Encouragingly is attending slightly more to some of his ADLs, will continue with behavioral plan in hopes to continue encouraging behavioral activation although food does not seem to be a good motivator/reward for him. Will continue to think about other possible motivators for him to help encourage increased activity, po intake and engagement with therapeutic milieu. No signs of HTN or other side effects from MAOI at this point. 02/23/21--Continues to demonstrate neurovegetative symptoms of depression, remaining in bed most of the day but sometimes more engagement in the evenings. Will implement behavioral plan to encourage behavioral activation to treat neurovegetative symptoms in conjunction with Emsam as well as to encourage increased participation with ADLs. Nursing to provide him with tools to help him eat and promote good hygiene (brining in meals, supplies to wash up) and then if he does this independently will bring in ice cream or chips as reward to see if this helps with activation and increased po intake. 02/22/21--neurologic work up with EEG and brain MRI unremarkable, continue Emsam trial. 02/21/21--complex differential--depression with psychotic features in a patient with bipolar disorder most likely, certainly not typcial catatonia. No hx of hyperphagia or hypersexuality known that would suggest Kleine-Hess syndrome. Will proceed with Emsam patch 6 mg trial as only means to administer antidepressant. Will check with an ECT facility to determine if can treat patient if pursue a court order (will await emsam trial first). MRI brain (patient will need various x rays first as can't answer screening questions, no hx of pacemaker on chart). bedside EEG to rule out status epilepticus. 02/19/21--non-formulary request for Emsam patch. Hasn't taken antidepressants for at least 6 weeks. Would reconsider current med doses when this becomes available. without antidepressant he will continue to decompensate medically and is at significant risk of further decompensation. 02/17/21--lytes, Bun/Cr improved; given sleep phase shift desirable to shift antipsychotic to pm meal with IM Zyprexa for refusal. Bedside EEG likely poor quality/low yeild but consider if no improvement. 02/16/21--Reviewed care by Dr. Garces in italics. will d/c IM Ativan in favor of Zyprexa IM for failure to take Latuda. Does take Lorazepam prn PO, adjust dose and frequency and monitor use. Will repeat labs and PO intake so variable and hard to track. 02/09/2021--admitted to [facility]. Ativan 2mg SL TID ordered. Track Is&Os. Vitals BID. 02/10/2021--continue with ativan 2mg TID SL. Showing significant improving in catatonic symptoms since ativan trial last night. If he continues to walk around no need for DVT prophylaxis. Will consider if 302 needs to be converted to 303 based on progress today. 02/11/2021--continue with scheduled ativan. Less engagement today but still eating and drinking. Plan for likely 303 given his inability/reluctance to engage in treatment. Reviewed outside records. 02/12/2021--continues to refuse ativan today and won't engage with anyone nor leave his bed except to use the bathroom and to eat at night. Given some movement in the evening and to the bathroom he doesn't require DVT prophylaxis at this time but this remains a concern should he clinically worsen and will continue to monitor his nutritional and medical status closely. 02/13/2021--placed on 303 status due to ongoing decompensation due to catatonia including refusal of medication, not eating, not drinking, not communicating with anyone and lying in bed all day. Once catatonia begins to improve with treatment will aim to start latuda which helped previously. [place] to require medications over objection for ativan to treat catatonia. If catatonia does not respond quickly to ativan then will consider if DVT prophylaxis should be initiated. 02/14/2021--no significant change in behaviors with additional of scheduled ativan 2 mg BID as medication over objection. Given concern for skin breakdown consult was placed for wound nurse. Given concern for possible DVT and after discussion with hospitalist will begin lovenox 40mg subQ daily. David was able to vocalize consent for this as he remains mute and unable/unwilling to engage but explained the risks, benefits, alternatives and rationale for lovenox and that we will be offering this to him. 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 02/15/2021--Have ruled out catatonia given inconsistent response to ativan trial, multiple observed examples of volitional movement immediately following periods of patient lying in bed and mute. Subsequent catatonia scales have been negative and patient feels that his symptoms represent withdrawn features of anxiety and depression. Given bipolar depression with neurovegetative features will start latuda. Encouragingly he is eating more and drinking more and got out of bed twice last night. Risk Factors Assessment Male: Yes : Yes Do You Have Access To A Gun?: No (in supportive living enviornment, pt unable to answer ) Mental Health Diagnoses: Yes Previous Psychiatric Hospitalization: Yes Protective Factors Assessment Employed: No Interval History Identifying Information 40 yo man with history of catatonia, depression, bipolar disorder vs schizophrenia admitted due to concern for decompensation with failure of self- care at [facility]. Admitted on 302, now 304. Chief Complaint mute Review of Systems Sleep Information Total Hours of Sleep: 3.75 Sleep Comments: pt on q-15 minute checks Meal Information Percent Meal Consumed - Breakfast: 0 Percent Meal Consumed - Lunch: 0 Percent Meal Consumed - Dinner: 0 Nutrition Comment: drank a bottle of gingerale Subjective Subjective Patient was seen & assessed and interval progress reviewed with treatment team nursing and social work. No engagement with staff last night. Today was mute during our encounter when I explained rationale and side effects of haldol and why we are starting this. Later in afternoon he participated with some attention to personal hygiene (washing himself, brushing teeth, changing) with nursing encouragement and over sight. He also drank a large class of water and was offered more drinks and food. Physical Exam Psychiatric Orientation: alert; + uncooperative Apperance: + disheveled Eye Contact: + poor eye contact Motor Behavior: + psychomotor retardation Speech: + mute Affect: + flat affect Thought Process: + thought blocking Cognition: + attention not intact Estimated Intelligence: consistent with education level Insight: + severely impaired insight Judgement: + severely impaired judgement Vital Signs (Past 24 Hours) Last Vital Signs Temp 36.7 C 03/29/21 14:00 Pulse 114 H 03/29/21 14:00 Resp 16 03/29/21 14:00 BP 129/94 03/29/21 14:00 Pulse Ox 95 03/28/21 21:22 Results & Data ([facility]) Current Inpatient Medications Current Inpatient Medications: Current Inpatient Medications Acetaminophen (Acetaminophen 325 Mg Tab) 650 mg PO Q4H PRN PRN Reason: Headache or Minor Fever Stop: 04/10/21 10:27 Last Admin: 03/16/21 10:34 Dose: 325 mg Documented by: Al Hydrox/Mg Hydrox/Simethicone (Aluminum/Magnesium Susp 30 Ml Udc) 30 ml PO Q4H PRN PRN Reason: GI Upset Stop: 04/10/21 10:27 Bismuth Subsalicylate (Bismuth Subsalicylate Liqd 236 Ml) 15 ml PO PRN PRN PRN Reason: Loose Stool Stop: 04/10/21 10:27 Clotrimazole (Clotrimazole 1% Cr 15 Gm Tube) 1 appln EXT HS OG Stop: 04/16/21 21:59 Last Admin: 03/28/21 22:19 Dose: 1 appln Documented by: Enoxaparin Sodium (Enoxaparin Inj 40 Mg/0.4 Ml Syr) 40 mg SQ QAM OG Stop: 04/22/21 08:59 Last Admin: 03/29/21 08:53 Dose: 40 mg Documented by: Haloperidol (Haloperidol 0.5 Mg Tab) 2.5 mg PO QAM OG Stop: 04/28/21 13:29 Last Admin: 03/29/21 13:39 Dose: Not Given Documented by: Haloperidol Lactate (Haloperidol Lactate 5 Mg/Ml 1 Ml Vial) 2.5 mg IM QAM PRN PRN Reason: for refusal of PO dose Stop: 04/28/21 13:29 Last Admin: 03/29/21 13:59 Dose: 2.5 mg Documented by: Hydroxyzine HCl (Hydroxyzine Hcl 25 Mg Tab) 50 mg PO HSZ PRN PRN Reason: Insomnia Stop: 04/10/21 10:27 Hydroxyzine HCl (Hydroxyzine Hcl 25 Mg Tab) 25 mg PO Q4H PRN PRN Reason: Anxiety Stop: 04/10/21 10:27 Lorazepam (Lorazepam 1 Mg Tab) 1 mg PO Q6 PRN PRN Reason: Anxiety/Agitation Stop: 04/10/21 08:14 Lorazepam (Lorazepam 1 Mg Tab) 1 mg PO QAM OG Stop: 04/28/21 13:29 Last Admin: 03/29/21 13:39 Dose: Not Given Documented by: Lorazepam (Lorazepam 2 Mg/Ml Vial (Im Use)) 1 mg IM QAM PRN PRN Reason: for refusal of PO dose Stop: 04/28/21 13:29 Last Admin: 03/29/21 14:00 Dose: 1 mg Documented by: Magnesium Hydroxide (Magnesium Hydroxide Susp 30 Ml Udc) 30 ml PO DAILY PRN PRN Reason: Constipation Stop: 04/10/21 10:27 Miscellaneous (Remove Patch Selegiline (Emsam)) 1 ea N/A Q24H OG Stop: 04/10/21 08:58 Last Admin: 03/29/21 08:55 Dose: 1 ea Documented by: Selegiline (Selegiline 6 Mg/24hr Tdsy) 6 mg TD DAILY OG Stop: 04/10/21 08:59 Last Admin: 03/29/21 08:55 Dose: 6 mg Documented by: Sodium Chloride (Sodium Chloride 0.65% Na Soln 45 Ml ([place])) 1 - 2 sprays NA PRN PRN PRN Reason: Nasal Dryness/Congestion Stop: 04/10/21 10:27 Mental Health & Subst Abuse Tx Psychiatrist Name of Psychiatrist: Oniel Negron Psychiatrist's Date of Appointment with Psychiatrist: 03/13/21 Time of Appointment with Psychiatrist: 9:20am Psychiatric Appointment Comment: Zoom *is on waiting list for appt. sooner Therapist Name of Therapist: Unknown Solar Water Heater Installer Name of Solar Water Heater Installer: Mauri ([facility]) Post Discharge Appointments Primary Care Physician Name Of Family Doctor: Unknown
[2021-03-29] MEDS: CLOTRIMAZOLE 1% CR 15 GM TUBE EXT SCH (21:12)
[2021-03-30] MEDS: ENOXAPARIN INJ 40 MG/0.4 ML SYR SQ SCH (09:15)
[2021-03-30] MEDS: SELEGILINE 6 MG/24 HR TD SCH (09:15)
[2021-03-30] MEDS: [UNRECOGNIZED DRUG - REMARK] SCH (09:16)
[2021-03-30] MEDS: haloperidoL 0.5 MG TAB PO SCH (09:29)
[2021-03-30] MEDS: LORazepam 1 MG TAB PO SCH (09:29)
[2021-03-30] MEDS: HALOPERIDOL LACTATE 5 MG/ML 1 ML VIAL IM PRN (09:30)
[2021-03-30] MEDS: LORazepam 2 MG/ML VIAL (IM USE) IM PRN (09:31)
--- NOTE | 2021-03-30 14:20 | Psychiatric Progress Note ---
Date of Service March 30, 2021 Impression / Recommendations Impression The patient is a 40 year old with a history of schizoaffective disorder vs bipolar depression who was admitted for failure of self-care and worsening decompensation at senior living. The patient is deemed unstable and requires psychiatric hospitalization for diagnostic clarification, safety and stabilization, medication management and development of further coping skills. Initially focussed on Ativan dosing for catatonia but no consistent response to meds over objection. Patient seemed worse on Zyprexa, very poor PO. Started Emsam (MAOI patch on 02/21/21). Will focus on medication over objection and readdress possible ECT or other med trials. 304 status granted. 03/30/21: for two days in a row followed nursing prompts for him to attend to self-care and then walked and ate lunch in the main dining room today. So far no evidence of EPS from the two initial doses of haldol. Improvement occurred yesterday prior to when haldol would have taken effect but encouraging to see progress again today, unclear what if any effect of the start of the haldol is having on this. Plan: continue with haldol and ativan IM or po, no signs of EPS from exam today nor from review of staffing notes from overnight. (1) Bipolar disorder with depression: 03/30/21: continue haldol 2.5 mg po or IM and ativan 1mg po or IM. Continue Emsam patch. Walked three laps around the unit with encouragement today. 03/29/21: Starting haldol 2.5 mg po or IM and ativan 1mg po or IM for suspected psychosis with negativism, lack of personal care, thought blocking/negative sx and avolition. Continue Emsam patch. Discontinued modafinil. 03/28/21: continue to offer medications. Gave ativan 1mg IM x1 last night after additional episode of spitting. Repeat labwork today showing improvement in nutritional status (albumin and total protein now normal and BUN/CR wnl). 03/27/21: continue to offer medications, he continues to refuse. Continuing to explore ways to involve his extended family or other aspects of care which could incentive his engagement in care. May need to consider if a less sedating antipsychotic medication should be re-trialed. Referral for [facility] has been accepted. 03/26/21: continue current medications, refused modafinil but will try again over next few days. Continue with ativan 1mg BIDM po 03/25/21: start modafinil 50 mg qAM, will monitor carefully for any interactions with MAOI. Discontinued ativan IM for refusal of po. Reducing ativan dosing from TID po to BID po in the afternoon to avoid combining morning stimulant with morning benzo as this would be counterproductive to stimulant trial. 03/24/21: continue current medications. 03/23/21: labwork done today and reviewed no significant changes from prior labwork, still has elevated Cl. Continue with lovenox, emsam patch, and ativan 1 mg po TID (with BID IM for refusal) 03/22/21: labs in am and resume Lovenox given regression past 3 days. 03/18/21: unable to care for self outside of hospital, continue Emsam patch, will not increase as I do not believe he can follow appropriate dietary restrictions at higher doses. 03/17/21: Ativan 1 mg PO TID (inject up to BID for refusal). 03/16/21: resume IM Ativan for refusal of PO Ativan. 03/15/21: Continue current medications. Making referral to [facility] given slow progression and he is still very far from his baseline which will require extended treatment and thus he will be best served by a longer term treatment approach. 03/14/21: Continue with current medications. Reviewed labwork, K+ improved but still signs of poor nutrition. Elevated ALT could be side effect from Emsam patch (occurs in <1/100 - 05/999 pts), will continue to monitor. may be able to consider transition to a po medication if he remains consistent with accepting po medications but for now Emsam patch benefit is felt to outweigh risk of slight ALT elevation. 03/13/21: Continue with current medications. Supports from [place] will visit tomorrow. Labwork CMP tomorrow morning to ensure correction of hypokalemia. 03/12/21: Continue with current medications. Discussed with treatment team having his senior living supports come for a visit and they will visit on . Reviewed his interactions with staff during evening hours/overnight in the chart and continues to show progress with engagement. 03/11/21: Continue with ativan 1 mg BID po, canceled IM as he is agreeing to voluntary po. Given steady improvement over the last 1 week consistent with expected timeline for symptom improvement from Emsam patch he may no longer need longer term care option if improvement persists at this rate. If progress stalls or regression occurs then will reconsider if longer term option for treatment is required. 03/10/21: Reduce ativan to 1 mg BID due to dizziness, low BP and possible fall yesterday. Will discontinue lovenox per his request and since he is now consistently moving around throughout the day and at night, discussed risk of blood clots if he doesn't continue to move around and ambulate frequently which he vocalized understanding of and agreement with. Given improvement in nutritional intake will hold off on rechecking labwork for now, will get repeat labs in 1 week on 03/14. 03/09/21: Reviewed interim progress. Continue Emsam patch and ativan 2mg BID trial-will monitor for excessive sedation. 03/08/21: Ativan 2 mg BID trial. 03/07/21: patient seen by neurology, appreciate input, seems severe vegetative symptoms due to depression though last few doses of Ativan have been more effective than previous. Continue Ativan 1 mg po BID (IM for refusal). Attempt to replete K with powder dissolved in juice. 03/04/21: will explore personal custodial as concerns he will not improve to point he can make meals/meet requirements to return to [facility] during this stay. 03/03/21--continue same. Cannot attempt coadmin with stimulant trial for hypersomnia as contraindicated with MAOI. No medical decompensation that would necessitate referral to medical or seeking court order for ECT. At minimum behaviors are challenging but more appropriate when willing to interact with staff. Need to consider longer term care options given slow progression. 03/02/21--interim care reviewed. Continue EMSAM and Lovenox injection. 03/01/21--Day 9 of Emsam patch. Continuing with behavioral plan to encourage behavioral activation-he was provided with plan with goals of having him come out of his room to eat meals, cooperate with repositioning, stand up when his sheets are changed/or if he prefers to stay in bed until the evening then clean sheets can be provided for him to put on the bed or request help putting on the bed in the evening, and continue independently voiding in his bedside urinal, shower can be started for him but he should be encouraged to get into the shower on his own, encourage him to address basic hygiene by continuing to provide him with easy access to his toothbrush, shampoo, etc. 02/28/21--Day 8 of Emsam patch. Now seeing new pattern of daily food intake which is encouraging. Continues to present with regressed behaviors and refusal to interact during the day. 02/27/21--Continue with Emsam patch. Getting out of bed more in the evenings and eating more. Lack of engagement during the day was volitional-pulling blanket over his head after he saw me enter his room. Also becoming more irritable with staff when he is encouraged to do more on his own for behavioral activation. 02/26/21-Continue with Emsam patch. 304 status granted. Ate last night and interacted with staff but no engagement today. 02/25/21--Continues to demonstrate severe depression with neurovegetative symptoms with no engagement with staff. Behavioral plan challenged by finding a reward/incentive that he enjoys. Continuing to encourage behavioral activation. Petitioned for 304 status with hearing scheduled for tomorrow given ongoing symptom burden and need for ongoing treatment. Remains on lovenox for DVT prophylaxis. Continue with Emsam patch. 02/24/21--Remains isolative and will not engage verbally. Encouragingly is attending slightly more to some of his ADLs, will continue with behavioral plan in hopes to continue encouraging behavioral activation although food does not seem to be a good motivator/reward for him. Will continue to think about other possible motivators for him to help encourage increased activity, po intake and engagement with therapeutic milieu. No signs of HTN or other side effects from MAOI at this point. 02/23/21--Continues to demonstrate neurovegetative symptoms of depression, remaining in bed most of the day but sometimes more engagement in the evenings. Will implement behavioral plan to encourage behavioral activation to treat neurovegetative symptoms in conjunction with Emsam as well as to encourage increased participation with ADLs. Nursing to provide him with tools to help him eat and promote good hygiene (brining in meals, supplies to wash up) and then if he does this independently will bring in ice cream or chips as reward to see if this helps with activation and increased po intake. 02/22/21--neurologic work up with EEG and brain MRI unremarkable, continue Emsam trial. 02/21/21--complex differential--depression with psychotic features in a patient with bipolar disorder most likely, certainly not typcial catatonia. No hx of hyperphagia or hypersexuality known that would suggest Kleine-Hess syndrome. Will proceed with Emsam patch 6 mg trial as only means to administer antidepressant. Will check with an ECT facility to determine if can treat patient if pursue a court order (will await emsam trial first). MRI brain (patient will need various x rays first as can't answer screening questions, no hx of pacemaker on chart). bedside EEG to rule out status epilepticus. 02/19/21--non-formulary request for Emsam patch. Hasn't taken antidepressants for at least 6 weeks. Would reconsider current med doses when this becomes available. without antidepressant he will continue to decompensate medically and is at significant risk of further decompensation. 02/17/21--lytes, Bun/Cr improved; given sleep phase shift desirable to shift antipsychotic to pm meal with IM Zyprexa for refusal. Bedside EEG likely poor quality/low yeild but consider if no improvement. 02/16/21--Reviewed care by Dr. Garces in italics. will d/c IM Ativan in favor of Zyprexa IM for failure to take Latuda. Does take Lorazepam prn PO, adjust dose and frequency and monitor use. Will repeat labs and PO intake so variable and hard to track. 02/09/2021--admitted to [facility]. Ativan 2mg SL TID ordered. Track Is&Os. Vitals BID. 02/10/2021--continue with ativan 2mg TID SL. Showing significant improving in catatonic symptoms since ativan trial last night. If he continues to walk around no need for DVT prophylaxis. Will consider if 302 needs to be converted to 303 based on progress today. 02/11/2021--continue with scheduled ativan. Less engagement today but still eating and drinking. Plan for likely 303 given his inability/reluctance to engage in treatment. Reviewed outside records. 02/12/2021--continues to refuse ativan today and won't engage with anyone nor leave his bed except to use the bathroom and to eat at night. Given some movement in the evening and to the bathroom he doesn't require DVT prophylaxis at this time but this remains a concern should he clinically worsen and will continue to monitor his nutritional and medical status closely. 02/13/2021--placed on 303 status due to ongoing decompensation due to catatonia including refusal of medication, not eating, not drinking, not communicating with anyone and lying in bed all day. Once catatonia begins to improve with treatment will aim to start latuda which helped previously. [place] to require medications over objection for ativan to treat catatonia. If catatonia does not respond quickly to ativan then will consider if DVT prophylaxis should be initiated. 02/14/2021--no significant change in behaviors with additional of scheduled ativan 2 mg BID as medication over objection. Given concern for skin breakdown consult was placed for wound nurse. Given concern for possible DVT and after discussion with hospitalist will begin lovenox 40mg subQ daily. David was able to vocalize consent for this as he remains mute and unable/unwilling to engage but explained the risks, benefits, alternatives and rationale for lovenox and that we will be offering this to him. 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 02/15/2021--Have ruled out catatonia given inconsistent response to ativan trial, multiple observed examples of volitional movement immediately following periods of patient lying in bed and mute. Subsequent catatonia scales have been negative and patient feels that his symptoms represent withdrawn features of anxiety and depression. Given bipolar depression with neurovegetative features will start latuda. Encouragingly he is eating more and drinking more and got out of bed twice last night. Risk Factors Assessment Male: Yes : Yes Do You Have Access To A Gun?: No (in supportive living enviornment, pt unable to answer ) Mental Health Diagnoses: Yes Previous Psychiatric Hospitalization: Yes Protective Factors Assessment Employed: No Interval History Identifying Information 40 yo man with history of catatonia, depression, bipolar disorder vs sc hizophrenia admitted due to concern for decompensation with failure of self-care at [facility]. Admitted on 302, now 304. Chief Complaint mute. Review of Systems Sleep Information Total Hours of Sleep: 6.5 Sleep Comments: pt on q-15 minute checks Meal Information Percent Meal Consumed - Breakfast: 50 Percent Meal Consumed - Lunch: 50 Percent Meal Consumed - Dinner: 0 Nutrition Comment: pt given dinner at bedside. pt refused. Subjective Subjective Patient was seen & assessed and interval progress reviewed with treatment team nursing and social work. This afternoon responded to nursing encouragement to attend to hygiene and then he walked three laps around the unit with nursing. Then he sat in the common area and ate lunch including half of sandwich. During my attempts to meet with him in his room he was mute and closed his eyes, when I attempted to speak with him while he was eating his lunch he covered his face with his hands and would not respond. Physical Exam Psychiatric Orientation: alert; + uncooperative Apperance: + disheveled Eye Contact: + poor eye contact Motor Behavior: no abnormal motor movements Speech: + mute Affect: + flat affect Insight: + impaired insight Judgement: + impaired judgement Vital Signs (Past 24 Hours) Last Vital Signs Temp 37.2 C 03/30/21 14:00 Pulse 118 H 03/30/21 14:00 Resp 16 03/30/21 14:00 BP 124/80 03/30/21 14:00 Pulse Ox 95 03/28/21 21:22 Results & Data ([facility]) Current Inpatient Medications Current Inpatient Medications: Current Inpatient Medications Acetaminophen (Acetaminophen 325 Mg Tab) 650 mg PO Q4H PRN PRN Reason: Headache or Minor Fever Stop: 04/10/21 10:27 Last Admin: 03/16/21 10:34 Dose: 325 mg Documented by: Al Hydrox/Mg Hydrox/Simethicone (Aluminum/Magnesium Susp 30 Ml Udc) 30 ml PO Q4H PRN PRN Reason: GI Upset Stop: 04/10/21 10:27 Bismuth Subsalicylate (Bismuth Subsalicylate Liqd 236 Ml) 15 ml PO PRN PRN PRN Reason: Loose Stool Stop: 04/10/21 10:27 Clotrimazole (Clotrimazole 1% Cr 15 Gm Tube) 1 appln EXT HS OG Stop: 04/16/21 21:59 Last Admin: 03/29/21 21:12 Dose: 1 appln Documented by: Enoxaparin Sodium (Enoxaparin Inj 40 Mg/0.4 Ml Syr) 40 mg SQ QAM OG Stop: 04/22/21 08:59 Last Admin: 03/30/21 09:15 Dose: 40 mg Documented by: Haloperidol (Haloperidol 5 Mg Tab) 2.5 mg PO QAM OG Stop: 04/30/21 08:59 Haloperidol Lactate (Haloperidol Lactate 5 Mg/Ml 1 Ml Vial) 2.5 mg IM QAM PRN PRN Reason: for refusal of PO dose Stop: 04/28/21 13:29 Last Admin: 03/30/21 09:30 Dose: 2.5 mg Documented by: Hydroxyzine HCl (Hydroxyzine Hcl 25 Mg Tab) 50 mg PO HSZ PRN PRN Reason: Insomnia Stop: 04/10/21 10:27 Hydroxyzine HCl (Hydroxyzine Hcl 25 Mg Tab) 25 mg PO Q4H PRN PRN Reason: Anxiety Stop: 04/10/21 10:27 Lorazepam (Lorazepam 1 Mg Tab) 1 mg PO Q6 PRN PRN Reason: Anxiety/Agitation Stop: 04/10/21 08:14 Lorazepam (Lorazepam 1 Mg Tab) 1 mg PO QAM OG Stop: 04/28/21 13:29 Last Admin: 03/30/21 09:29 Dose: Not Given Documented by: Lorazepam (Lorazepam 2 Mg/Ml Vial (Im Use)) 1 mg IM QAM PRN PRN Reason: for refusal of PO dose Stop: 04/28/21 13:29 Last Admin: 03/30/21 09:31 Dose: 1 mg Documented by: Magnesium Hydroxide (Magnesium Hydroxide Susp 30 Ml Udc) 30 ml PO DAILY PRN PRN Reason: Constipation Stop: 04/10/21 10:27 Miscellaneous (Remove Patch Selegiline (Emsam)) 1 ea N/A Q24H OG Stop: 04/10/21 08:58 Last Admin: 03/30/21 09:16 Dose: 1 ea Documented by: Selegiline (Selegiline 6 Mg/24hr Tdsy) 6 mg TD DAILY OG Stop: 04/10/21 08:59 Last Admin: 03/30/21 09:15 Dose: 6 mg Documented by: Sodium Chloride (Sodium Chloride 0.65% Na Soln 45 Ml ([place])) 1 - 2 sprays NA PRN PRN PRN Reason: Nasal Dryness/Congestion Stop: 04/10/21 10:27 Mental Health & Subst Abuse Tx Psychiatrist Name of Psychiatrist: Oniel Negron Psychiatrist's Date of Appointment with Psychiatrist: 03/13/21 Time of Appointment with Psychiatrist: 9:20am Psychiatric Appointment Comment: Zoom *is on waiting list for appt. sooner Therapist Name of Therapist: Unknown Oil Dispatcher Name of Oil Dispatcher: Mauri AVILAU) Post Discharge Appointments Primary Care Physician Name Of Family Doctor: Unknown
[2021-03-30] MEDS: CLOTRIMAZOLE 1% CR 15 GM TUBE EXT SCH (21:10)
[2021-03-31] MEDS: ENOXAPARIN INJ 40 MG/0.4 ML SYR SQ SCH (08:50)
[2021-03-31] MEDS: [UNRECOGNIZED DRUG - REMARK] SCH (08:52)
[2021-03-31] MEDS ORDERED: haloperidoL 5 MG TAB PO SCH (09:00)
[2021-03-31] MEDS: HALOPERIDOL LACTATE 5 MG/ML 1 ML VIAL IM PRN (09:03)
[2021-03-31] MEDS: LORazepam 2 MG/ML VIAL (IM USE) IM PRN (09:04)
[2021-03-31] MEDS: LORazepam 1 MG TAB PO SCH (09:14)
[2021-03-31] MEDS: SELEGILINE 6 MG/24 HR TD SCH (09:15)
--- NOTE | 2021-03-31 10:43 | Psychiatric Progress Note ---
Date of Service March 31, 2021 Impression / Recommendations Impression The patient is a 40 year old with a history of schizoaffective disorder vs bipolar depression who was admitted for failure of self-care and worsening decompensation at [facility]. The patient is deemed unstable and requires psychiatric hospitalization for diagnostic clarification, safety and stabilization, medication management and development of further coping skills. Initially focussed on Ativan dosing for catatonia but no consistent response to meds over objection. Patient seemed worse on Zyprexa, very poor PO. Started Emsam (MAOI patch on 02/21/21). Will focus on medication over objection and readdress possible ECT or other med trials. 304 status granted. 03/31/21: No engagement today, did drink some liquids. So far no evidence of EPS from the three initial doses of haldol. Plan: increase haldol and ativan IM or po, no signs of EPS from exam today nor from review of staffing notes. (1) Bipolar disorder with depression: 03/31/21: increase haldol to 5 mg po or IM and ativan 1mg po or IM. Continue Emsam patch. 03/30/21: continue haldol 2.5 mg po or IM and ativan 1mg po or IM. Continue Emsam patch. Walked three laps around the unit with encouragement today. 03/29/21: Starting haldol 2.5 mg po or IM and ativan 1mg po or IM for suspected psychosis with negativism, lack of personal care, thought blocking/negative sx and avolition. Continue Emsam patch. Discontinued modafinil. 03/28/21: continue to offer medications. Gave ativan 1mg IM x1 last night after additional episode of spitting. Repeat labwork today showing improvement in nutritional status (albumin and total protein now normal and BUN/CR wnl). 03/27/21: continue to offer medications, he continues to refuse. Continuing to explore ways to involve his extended family or other aspects of care which could incentive his engagement in care. May need to consider if a less sedating antipsychotic medication should be re-trialed. Referral for [facility] has been accepted. 03/26/21: continue current medications, refused modafinil but will try again over next few days. Continue with ativan 1mg BIDM po 03/25/21: start modafinil 50 mg qAM, will monitor carefully for any interactions with MAOI. Discontinued ativan IM for refusal of po. Reducing ativan dosing from TID po to BID po in the afternoon to avoid combining morning stimulant with morning benzo as this would be counterproductive to stimulant trial. 03/24/21: continue current medications. 03/23/21: labwork done today and reviewed no significant changes from prior labwork, still has elevated Cl. Continue with lovenox, emsam patch, and ativan 1 mg po TID (with BID IM for refusal) 03/22/21: labs in am and resume Lovenox given regression past 3 days. 03/18/21: unable to care for self outside of hospital, continue Emsam patch, will not increase as I do not believe he can follow appropriate dietary restrictions at higher doses. 03/17/21: Ativan 1 mg PO TID (inject up to BID for refusal). 03/16/21: resume IM Ativan for refusal of PO Ativan. 03/15/21: Continue current medications. Making referral to [facility] given slow progression and he is still very far from his baseline which will require extended treatment and thus he will be best served by a longer term treatment approach. 03/14/21: Continue with current medications. Reviewed labwork, K+ improved but still signs of poor nutrition. Elevated ALT could be side effect from Emsam patch (occurs in <1/100 - 05/999 pts), will continue to monitor. may be able to consider transition to a po medication if he remains consistent with accepting po medications but for now Emsam patch benefit is felt to outweigh risk of slight ALT elevation. 03/13/21: Continue with current medications. Supports from [employer] will visit tomorrow. Labwork CMP tomorrow morning to ensure correction of hypokalemia. 03/12/21: Continue with current medications. Discussed with treatment team having his [facility] supports come for a visit and they will visit on . Reviewed his interactions with staff during evening hours/overnight in the chart and continues to show progress with engagement. 03/11/21: Continue with ativan 1 mg BID po, canceled IM as he is agreeing to voluntary po. Given steady improvement over the last 1 week consistent with expected timeline for symptom improvement from Emsam patch he may no longer need longer term care option if improvement persists at this rate. If progress stalls or regression occurs then will reconsider if longer term option for treatment is required. 03/10/21: Reduce ativan to 1 mg BID due to dizziness, low BP and possible fall yesterday. Will discontinue lovenox per his request and since he is now consistently moving around throughout the day and at night, discussed risk of blood clots if he doesn't continue to move around and ambulate frequently which he vocalized understanding of and agreement with. Given improvement in nutritional intake will hold off on rechecking labwork for now, will get repeat labs in 1 week on 03/14. 03/09/21: Reviewed interim progress. Continue Emsam patch and ativan 2mg BID trial-will monitor for excessive sedation. 03/08/21: Ativan 2 mg BID trial. 03/07/21: patient seen by neurology, appreciate input, seems severe vegetative symptoms due to depression though last few doses of Ativan have been more effective than previous. Continue Ativan 1 mg po BID (IM for refusal). Attempt to replete K with powder dissolved in juice. 03/04/21: will explore personal longterm as concerns he will not improve to point he can make meals/meet requirements to return to [facility] during this stay. 03/03/21--continue same. Cannot attempt coadmin with stimulant trial for hypersomnia as contraindicated with MAOI. No medical decompensation that would necessitate referral to medical or seeking court order for ECT. At minimum behaviors are challenging but more appropriate when willing to interact with staff. Need to consider longer term care options given slow progression. 03/02/21--interim care reviewed. Continue EMSAM and Lovenox injection. 03/01/21--Day 9 of Emsam patch. Continuing with behavioral plan to encourage behavioral activation-he was provided with plan with goals of having him come out of his room to eat meals, cooperate with repositioning, stand up when his sheets are changed/or if he prefers to stay in bed until the evening then clean sheets can be provided for him to put on the bed or request help putting on the bed in the evening, and continue independently voiding in his bedside urinal, shower can be started for him but he should be encouraged to get into the shower on his own, encourage him to address basic hygiene by continuing to provide him with easy access to his toothbrush, shampoo, etc. 02/28/21--Day 8 of Emsam patch. Now seeing new pattern of daily food intake which is encouraging. Continues to present with regressed behaviors and refusal to interact during the day. 02/27/21--Continue with Emsam patch. Getting out of bed more in the evenings and eating more. Lack of engagement during the day was volitional-pulling blanket over his head after he saw me enter his room. Also becoming more irritable with staff when he is encouraged to do more on his own for behavioral activation. 02/26/21-Continue with Emsam patch. 304 status granted. Ate last night and interacted with staff but no engagement today. 02/25/21--Continues to demonstrate severe depression with neurovegetative symptoms with no engagement with staff. Behavioral plan challenged by finding a reward/incentive that he enjoys. Continuing to encourage behavioral activation. Petitioned for 304 status with hearing scheduled for tomorrow given ongoing symptom burden and need for ongoing treatment. Remains on lovenox for DVT prophylaxis. Continue with Emsam patch. 02/24/21--Remains isolative and will not engage verbally. Encouragingly is attending slightly more to some of his ADLs, will continue with behavioral plan in hopes to continue encouraging behavioral activation although food does not seem to be a good motivator/reward for him. Will continue to think about other possible motivators for him to help encourage increased activity, po intake and engagement with therapeutic milieu. No signs of HTN or other side effects from MAOI at this point. 02/23/21--Continues to demonstrate neurovegetative symptoms of depression, remaining in bed most of the day but sometimes more engagement in the evenings. Will implement behavioral plan to encourage behavioral activation to treat neurovegetative symptoms in conjunction with Emsam as well as to encourage increased participation with ADLs. Nursing to provide him with tools to help him eat and promote good hygiene (brining in meals, supplies to wash up) and then if he does this independently will bring in ice cream or chips as reward to see if this helps with activation and increased po intake. 02/22/21--neurologic work up with EEG and brain MRI unremarkable, continue Emsam trial. 02/21/21--complex differential--depression with psychotic features in a patient with bipolar disorder most likely, certainly not typcial catatonia. No hx of hyperphagia or hypersexuality known that would suggest Kleine-Hess syndrome. Will proceed with Emsam patch 6 mg trial as only means to administer antidepressant. Will check with an ECT facility to determine if can treat patient if pursue a court order (will await emsam trial first). MRI brain (patient will need various x rays first as can't answer screening questions, no hx of pacemaker on chart). bedside EEG to rule out status epilepticus. 02/19/21--non-formulary request for Emsam patch. Hasn't taken antidepressants for at least 6 weeks. Would reconsider current med doses when this becomes available. without antidepressant he will continue to decompensate medically and is at significant risk of further decompensation. 02/17/21--lytes, Bun/Cr improved; given sleep phase shift desirable to shift antipsychotic to pm meal with IM Zyprexa for refusal. Bedside EEG likely poor quality/low yeild but consider if no improvement. 02/16/21--Reviewed care by Dr. Garces in italics. will d/c IM Ativan in favor of Zyprexa IM for failure to take Latuda. Does take Lorazepam prn PO, adjust dose and frequency and monitor use. Will repeat labs and PO intake so variable and hard to track. 02/09/2021--admitted to [facility]. Ativan 2mg SL TID ordered. Track Is&Os. Vitals BID. 02/10/2021--continue with ativan 2mg TID SL. Showing significant improving in catatonic symptoms since ativan trial last night. If he continues to walk around no need for DVT prophylaxis. Will consider if 302 needs to be converted to 303 based on progress today. 02/11/2021--continue with scheduled ativan. Less engagement today but still eating and drinking. Plan for likely 303 given his inability/reluctance to engage in treatment. Reviewed outside records. 02/12/2021--continues to refuse ativan today and won't engage with anyone nor leave his bed except to use the bathroom and to eat at night. Given some movement in the evening and to the bathroom he doesn't require DVT prophylaxis at this time but this remains a concern should he clinically worsen and will continue to monitor his nutritional and medical status closely. 02/13/2021--placed on 303 status due to ongoing decompensation due to catatonia including refusal of medication, not eating, not drinking, not communicating with anyone and lying in bed all day. Once catatonia begins to improve with treatment will aim to start latuda which helped previously. [place] to require medications over objection for ativan to treat catatonia. If catatonia does not respond quickly to ativan then will consider if DVT prophylaxis should be initiated. 02/14/2021--no significant change in behaviors with additional of scheduled ativan 2 mg BID as medication over objection. Given concern for skin breakdown consult was placed for wound nurse. Given concern for possible DVT and after discussion with hospitalist will begin lovenox 40mg subQ daily. David was able to vocalize consent for this as he remains mute and unable/unwilling to engage but explained the risks, benefits, alternatives and rationale for lovenox and that we will be offering this to him. 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 02/15/2021--Have ruled out catatonia given inconsistent response to ativan trial, multiple observed examples of volitional movement immediately following periods of patient lying in bed and mute. Subsequent catatonia scales have been negative and patient feels that his symptoms represent withdrawn features of anxiety and depression. Given bipolar depression with neurovegetative features will start latuda. Encouragingly he is eating more and drinking more and got out of bed twice last night. Risk Factors Assessment Male: Yes : Yes Do You Have Access To A Gun?: No (in supportive living enviornment, pt unable to answer ) Mental Health Diagnoses: Yes Previous Psychiatric Hospitalization: Yes Protective Factors Assessment Employed: No Interval History Identifying Information 40 yo man with history of catatonia, depression, bipolar disorder vs schizophrenia admitted due to concern for decompensation with failure of self- care at [facility]. Admitted on 302, now 304. Chief Complaint mute Review of Systems Sleep Information Total Hours of Sleep: 3.25 Sleep Comments: pt on q-15 minute checks Meal Information Percent Meal Consumed - Breakfast: 0 Percent Meal Consumed - Lunch: 50 Percent Meal Consumed - Dinner: 0 Nutrition Comment: pt given dinner at bedside. pt refused. Subjective Subjective Patient was seen & assessed and interval progress reviewed with nursing. Participative with care yesterday afternoon but then spent the rest of the evening and overnight in bed and did not interact with anyone. This morning and afternoon continues to remain in bed and is mute throughout my attempted interactions with him. Will briefly make eye contact but otherwise unresponsive to attempts to engage with him. No evidence of EPS side effects from haldol. Physical Exam Psychiatric Orientation: alert; + uncooperative Apperance: + disheveled Eye Contact: + not good eye contact Motor Behavior: no abnormal motor movements and + psychomotor retardation; n EPS and n tremor Speech: + mute Affect: + flat affect Thought Process: + thought blocking Cognition: + attention not intact Insight: + severely impaired insight Judgement: + severely impaired judgement Vital Signs (Past 24 Hours) Last Vital Signs Temp 36.4 C 03/30/21 20:11 Pulse 97 H 03/30/21 21:22 Resp 16 03/30/21 14:00 BP 104/76 03/30/21 21:22 Pulse Ox 95 03/28/21 21:22 Results & Data ([facility]) Current Inpatient Medications Current Inpatient Medications: Current Inpatient Medications Acetaminophen (Acetaminophen 325 Mg Tab) 650 mg PO Q4H PRN PRN Reason: Headache or Minor Fever Stop: 04/10/21 10:27 Last Admin: 03/16/21 10:34 Dose: 325 mg Documented by: Al Hydrox/Mg Hydrox/Simethicone (Aluminum/Magnesium Susp 30 Ml Udc) 30 ml PO Q4H PRN PRN Reason: GI Upset Stop: 04/10/21 10:27 Bismuth Subsalicylate (Bismuth Subsalicylate Liqd 236 Ml) 15 ml PO PRN PRN PRN Reason: Loose Stool Stop: 04/10/21 10:27 Clotrimazole (Clotrimazole 1% Cr 15 Gm Tube) 1 appln EXT HS OG Stop: 04/16/21 21:59 Last Admin: 03/30/21 21:10 Dose: 1 appln Documented by: Enoxaparin Sodium (Enoxaparin Inj 40 Mg/0.4 Ml Syr) 40 mg SQ QAM OG Stop: 04/22/21 08:59 Last Admin: 03/31/21 08:50 Dose: 40 mg Documented by: Haloperidol (Haloperidol 5 Mg Tab) 2.5 mg PO QAM OG Stop: 04/30/21 08:59 Last Admin: 03/31/21 09:14 Dose: Not Given Documented by: Haloperidol Lactate (Haloperidol Lactate 5 Mg/Ml 1 Ml Vial) 2.5 mg IM QAM PRN PRN Reason: for refusal of PO dose Stop: 04/28/21 13:29 Last Admin: 03/31/21 09:03 Dose: 2.5 mg Documented by: Hydroxyzine HCl (Hydroxyzine Hcl 25 Mg Tab) 50 mg PO HSZ PRN PRN Reason: Insomnia Stop: 04/10/21 10:27 Hydroxyzine HCl (Hydroxyzine Hcl 25 Mg Tab) 25 mg PO Q4H PRN PRN Reason: Anxiety Stop: 04/10/21 10:27 Lorazepam (Lorazepam 1 Mg Tab) 1 mg PO Q6 PRN PRN Reason: Anxiety/Agitation Stop: 04/10/21 08:14 Lorazepam (Lorazepam 1 Mg Tab) 1 mg PO QAM OG Stop: 04/28/21 13:29 Last Admin: 03/31/21 09:14 Dose: Not Given Documented by: Lorazepam (Lorazepam 2 Mg/Ml Vial (Im Use)) 1 mg IM QAM PRN PRN Reason: for refusal of PO dose Stop: 04/28/21 13:29 Last Admin: 03/31/21 09:04 Dose: 1 mg Documented by: Magnesium Hydroxide (Magnesium Hydroxide Susp 30 Ml Udc) 30 ml PO DAILY PRN PRN Reason: Constipation Stop: 04/10/21 10:27 Miscellaneous (Remove Patch Selegiline (Emsam)) 1 ea N/A Q24H OG Stop: 04/10/21 08:58 Last Admin: 03/31/21 08:52 Dose: 1 ea Documented by: Selegiline (Selegiline 6 Mg/24hr Tdsy) 6 mg TD DAILY OG Stop: 04/10/21 08:59 Last Admin: 03/31/21 09:15 Dose: 6 mg Documented by: Sodium Chloride (Sodium Chloride 0.65% Na Soln 45 Ml (B[place])) 1 - 2 sprays NA PRN PRN PRN Reason: Nasal Dryness/Congestion Stop: 04/10/21 10:27 Mental Health & Subst Abuse Tx Psychiatrist Name of Psychiatrist: Oniel Negron Psychiatrist's Date of Appointment with Psychiatrist: 03/13/21 Time of Appointment with Psychiatrist: 9:20am Psychiatric Appointment Comment: Zoom *is on waiting list for appt. sooner Therapist Name of Therapist: Unknown Insulation Blanket Maker Name of Insulation Blanket Maker: Mauri ([facility]) Post Discharge Appointments Primary Care Physician Name Of Family Doctor: Unknown
[2021-03-31] MEDS ORDERED: LORazepam 2 MG/ML VIAL (IM USE) IM PRN (13:46)
[2021-03-31] MEDS ORDERED: HALOPERIDOL LACTATE 5 MG/ML 1 ML VIAL IM PRN (13:46)
[2021-03-31] MEDS ORDERED: diphenhydrAMINE 50 MG/ML VIAL IV PRN (13:46)
[2021-03-31] MEDS ORDERED: diphenhydrAMINE 50 MG/ML VIAL IM PRN (13:59)
[2021-03-31] MEDS: CLOTRIMAZOLE 1% CR 15 GM TUBE EXT SCH (20:09)
[2021-04-01] MEDS: [UNRECOGNIZED DRUG - REMARK] SCH (08:56)
[2021-04-01] MEDS: SELEGILINE 6 MG/24 HR TD SCH (08:57)
[2021-04-01] MEDS: ENOXAPARIN INJ 40 MG/0.4 ML SYR SQ SCH (09:49)
[2021-04-01] MEDS: haloperidoL 5 MG TAB PO SCH (09:54)
[2021-04-01] MEDS: HALOPERIDOL LACTATE 5 MG/ML 1 ML VIAL IM PRN (09:54)
[2021-04-01] MEDS: LORazepam 1 MG TAB PO SCH (09:55)
[2021-04-01] MEDS: LORazepam 1 MG TAB PO PRN (10:11)
--- NOTE | 2021-04-01 12:36 | Psychiatric Progress Note ---
Date of Service April 01, 2021 Impression / Recommendations Impression The patient is a 40 year old with a history of schizoaffective disorder vs bipolar depression who was admitted for failure of self-care and worsening decompensation at [facility]. The patient is deemed unstable and requires psychiatric hospitalization for diagnostic clarification, safety and stabilization, medication management and development of further coping skills. Initially focussed on Ativan dosing for catatonia but no consistent response to meds over objection. Patient seemed worse on Zyprexa, very poor PO. Started Emsam (MAOI patch on 02/21/21). Will focus on medication over objection and readdress possible ECT or other med trials. 304 status. 04/01/21: No engagement today, evidence drinking fluids at bedside. Urinating in toilet. Plan: Continue current meds and treatment plan. Consider increase in Haldol tomorrow. Updated nursing/behavioral plan for consistency across shifts. (1) Bipolar disorder with depression: Risk Factors Assessment Male: Yes : Yes Do You Have Access To A Gun?: No (in supportive living enviornment, pt unable to answer ) Mental Health Diagnoses: Yes Previous Psychiatric Hospitalization: Yes Protective Factors Assessment Employed: No Interval History Identifying Information 40 yo man with history of catatonia, depression, bipolar disorder vs schizophrenia admitted due to concern for decompensation with failure of self- care at [facility]. Admitted on 302, now 304. Chief Complaint selective mutism Review of Systems Sleep Information Total Hours of Sleep: 3.25 Sleep Comments: pt on q-15 minute checks Meal Information Percent Meal Consumed - Breakfast: 0 Percent Meal Consumed - Lunch: 0 Percent Meal Consumed - Dinner: 0 Nutrition Comment: pt given dinner at bedside. pt refused. Subjective Subjective Patient was seen & assessed and interval progress reviewed with treatment team. Patient had poor PO and OOB yesterday but did walk laps refusing to talk day before, has been irritable with staff and will posture with tight fists but no specific threat. Haldol trial. Spit in hallway yesterday and did check the door. Physical Exam Psychiatric limited, is moving legs in bed, eyes open but will not make eye contact, refusing to speak. Vital Signs (Past 24 Hours) Last Vital Signs Temp 37 C 03/31/21 20:06 Pulse 97 H 03/30/21 21:22 Resp 16 03/30/21 14:00 BP 104/76 03/30/21 21:22 Pulse Ox 95 03/28/21 21:22 Results & Data ([facility]) Current Inpatient Medications Current Inpatient Medications: Current Inpatient Medications Acetaminophen (Acetaminophen 325 Mg Tab) 650 mg PO Q4H PRN PRN Reason: Headache or Minor Fever Stop: 04/10/21 10:27 Last Admin: 03/16/21 10:34 Dose: 325 mg Documented by: Al Hydrox/Mg Hydrox/Simethicone (Aluminum/Magnesium Susp 30 Ml Udc) 30 ml PO Q4H PRN PRN Reason: GI Upset Stop: 04/10/21 10:27 Bismuth Subsalicylate (Bismuth Subsalicylate Liqd 236 Ml) 15 ml PO PRN PRN PRN Reason: Loose Stool Stop: 04/10/21 10:27 Clotrimazole (Clotrimazole 1% Cr 15 Gm Tube) 1 appln EXT HS OG Stop: 04/16/21 21:59 Last Admin: 03/31/21 20:09 Dose: 1 appln Documented by: Diphenhydramine HCl (Diphenhydramine 50 Mg/Ml Vial) 50 mg IM BID PRN PRN Reason: Agitation Stop: 04/30/21 13:45 Enoxaparin Sodium (Enoxaparin Inj 40 Mg/0.4 Ml Syr) 40 mg SQ QAM OG Stop: 04/22/21 08:59 Last Admin: 04/01/21 09:49 Dose: 40 mg Documented by: Haloperidol (Haloperidol 5 Mg Tab) 5 mg PO QAM OG Stop: 05/01/21 08:59 Last Admin: 04/01/21 09:54 Dose: Not Given Documented by: Haloperidol Lactate (Haloperidol Lactate 5 Mg/Ml 1 Ml Vial) 5 mg IM QAM PRN PRN Reason: for refusal of PO dose Stop: 04/28/21 13:29 Last Admin: 04/01/21 09:54 Dose: 5 mg Documented by: Haloperidol Lactate (Haloperidol Lactate 5 Mg/Ml 1 Ml Vial) 5 mg IM BID PRN PRN Reason: Agitation Stop: 04/30/21 13:45 Lorazepam (Lorazepam 1 Mg Tab) 1 mg PO Q6 PRN PRN Reason: Anxiety/Agitation Stop: 04/10/21 08:14 Last Admin: 04/01/21 10:11 Dose: 1 mg Documented by: Lorazepam (Lorazepam 1 Mg Tab) 1 mg PO QAM OG Stop: 04/28/21 13:29 Last Admin: 04/01/21 09:55 Dose: Not Given Documented by: Lorazepam (Lorazepam 2 Mg/Ml Vial (Im Use)) 1 mg IM QAM PRN PRN Reason: for refusal of PO dose Stop: 04/28/21 13:29 Last Admin: 03/31/21 09:04 Dose: 1 mg Documented by: Lorazepam (Lorazepam 2 Mg/Ml Vial (Im Use)) 2 mg IM BID PRN PRN Reason: Agitation Stop: 04/30/21 13:45 Magnesium Hydroxide (Magnesium Hydroxide Susp 30 Ml Udc) 30 ml PO DAILY PRN PRN Reason: Constipation Stop: 04/10/21 10:27 Miscellaneous (Remove Patch Selegiline (Emsam)) 1 ea N/A Q24H OG Stop: 04/10/21 08:58 Last Admin: 04/01/21 08:56 Dose: 1 ea Documented by: Selegiline (Selegiline 6 Mg/24hr Tdsy) 6 mg TD DAILY OG Stop: 04/10/21 08:59 Last Admin: 04/01/21 08:57 Dose: 6 mg Documented by: Sodium Chloride (Sodium Chloride 0.65% Na Soln 45 Ml ([place])) 1 - 2 sprays NA PRN PRN PRN Reason: Nasal Dryness/Congestion Stop: 04/10/21 10:27 Mental Health & Subst Abuse Tx Psychiatrist Name of Psychiatrist: Oniel Negron Psychiatrist's Date of Appointment with Psychiatrist: 03/13/21 Time of Appointment with Psychiatrist: 9:20am Psychiatric Appointment Comment: Zoom *is on waiting list for appt. sooner Therapist Name of Therapist: Unknown Steel Box Toe Inserter Name of Steel Box Toe Inserter: Mauri MATTHEWS) Post Discharge Appointments Primary Care Physician Name Of Family Doctor: Unknown
[2021-04-01] MEDS: CLOTRIMAZOLE 1% CR 15 GM TUBE EXT SCH (21:04)
[2021-04-02] MEDS: SELEGILINE 6 MG/24 HR TD SCH (09:32)
[2021-04-02] MEDS: ENOXAPARIN INJ 40 MG/0.4 ML SYR SQ SCH (09:35)
[2021-04-02] MEDS: HALOPERIDOL LACTATE 5 MG/ML 1 ML VIAL IM PRN (09:40)
[2021-04-02] MEDS: LORazepam 1 MG TAB PO SCH (09:51)
[2021-04-02] MEDS: [UNRECOGNIZED DRUG - REMARK] SCH (09:51)
[2021-04-02] MEDS: haloperidoL 5 MG TAB PO SCH (09:51)
[2021-04-02] MEDS: CLOTRIMAZOLE 1% CR 15 GM TUBE EXT SCH (21:07)
[2021-04-03] MEDS ORDERED: BENZTROPINE MESYLATE 1 MG TAB PO PRN (08:41)
[2021-04-03] MEDS ORDERED: HALOPERIDOL LACTATE 5 MG/ML 1 ML VIAL IM PRN (08:42)
[2021-04-03] MEDS ORDERED: haloperidoL 5 MG TAB PO SCH (09:00)
[2021-04-03] MEDS: SELEGILINE 6 MG/24 HR TD SCH (09:27)
[2021-04-03] MEDS: LORazepam 1 MG TAB PO SCH (09:28)
[2021-04-03] MEDS: [UNRECOGNIZED DRUG - REMARK] SCH (09:28)
[2021-04-03] MEDS: ENOXAPARIN INJ 40 MG/0.4 ML SYR SQ SCH (09:29)
[2021-04-03] MEDS: LORazepam 2 MG/ML VIAL (IM USE) IM PRN (09:31)
--- NOTE | 2021-04-03 10:13 | Psychiatric Progress Note ---
Date of Service late entry for 04/02/21 Impression / Recommendations Impression The patient is a 40 year old with a history of schizoaffective disorder vs bipolar depression who was admitted for failure of self-care and worsening decompensation at [facility]. The patient is deemed unstable and requires psychiatric hospitalization for diagnostic clarification, safety and stabilization, medication management and development of further coping skills. Initially focussed on Ativan dosing for catatonia but no consistent response to meds over objection. Patient seemed worse on Zyprexa, very poor PO. Started Emsam (MAOI patch on 02/21/21). Will focus on medication over objection and read dress possible ECT or other med trials. 304 status. 04/02/21: Unchanged Plan: Continue current meds and treatment plan. (1) Bipolar disorder with depression: Risk Factors Assessment Male: Yes : Yes Do You Have Access To A Gun?: No (in supportive living enviornment, pt unable to answer ) Mental Health Diagnoses: Yes Previous Psychiatric Hospitalization: Yes Protective Factors Assessment Employed: No Interval History Identifying Information 40 yo man with history of catatonia, depression, bipolar disorder vs schizo phrenia admitted due to concern for decompensation with failure of self-care at [facility]. Admitted on 302, now 304. Chief Complaint mutism Review of Systems Sleep Information Total Hours of Sleep: 6.5 Sleep Comments: pt on q-15 minute checks Meal Information Percent Meal Consumed - Breakfast: 0 Percent Meal Consumed - Lunch: 100 Percent Meal Consumed - Dinner: 0 Nutrition Comment: pt given dinner at bedside. pt refused. Subjective Subjective Patient was seen & assessed and interval progress reviewed with nursing and social work. Patient remains reactive/irritable to direct care, limited OOB time and PO. Doesn't resist IMs. Physical Exam Psychiatric remains mute, everts eye contact, stares with eyes open, minimal foot tremor, regressed behavior, will shift but otherwise difficult to engage, unable to assess thought processes. Vital Signs (Past 24 Hours) Last Vital Signs Temp 35.8 C L 04/02/21 21:20 Pulse 82 04/02/21 21:20 Resp 18 04/02/21 21:20 BP 134/85 04/02/21 21:20 Pulse Ox 99 04/02/21 21:20 Results & Data ([facility]) Current Inpatient Medications Current Inpatient Medications: Current Inpatient Medications Acetaminophen (Acetaminophen 325 Mg Tab) 650 mg PO Q4H PRN PRN Reason: Headache or Minor Fever Stop: 04/10/21 10:27 Last Admin: 03/16/21 10:34 Dose: 325 mg Documented by: Al Hydrox/Mg Hydrox/Simethicone (Aluminum/Magnesium Susp 30 Ml Udc) 30 ml PO Q4H PRN PRN Reason: GI Upset Stop: 04/10/21 10:27 Benztropine Mesylate (Benztropine Mesylate 1 Mg Tab) 1 mg PO Q6 PRN PRN Reason: Muscle Spasm Stop: 05/03/21 08:40 Bismuth Subsalicylate (Bismuth Subsalicylate Liqd 236 Ml) 15 ml PO PRN PRN PRN Reason: Loose Stool Stop: 04/10/21 10:27 Diphenhydramine HCl (Diphenhydramine 50 Mg/Ml Vial) 50 mg IM BID PRN PRN Reason: Agitation Stop: 04/30/21 13:45 Enoxaparin Sodium (Enoxaparin Inj 40 Mg/0.4 Ml Syr) 40 mg SQ QAM [facility] Stop: 04/22/21 08:59 Last Admin: 04/03/21 09:29 Dose: 40 mg Documented by: Haloperidol (Haloperidol 5 Mg Tab) 10 mg PO QAM OG Stop: 05/03/21 08:59 Last Admin: 04/03/21 09:28 Dose: Not Given Documented by: Haloperidol Lactate (Haloperidol Lactate 5 Mg/Ml 1 Ml Vial) 5 mg IM BID PRN PRN Reason: Agitation Stop: 04/30/21 13:45 Haloperidol Lactate (Haloperidol Lactate 5 Mg/Ml 1 Ml Vial) 10 mg IM QAM PRN PRN Reason: for refusal of PO dose Stop: 04/28/21 13:29 Last Admin: 04/03/21 09:32 Dose: 10 mg Documented by: Lorazepam (Lorazepam 1 Mg Tab) 1 mg PO Q6 PRN PRN Reason: Anxiety/Agitation Stop: 04/10/21 08:14 Last Admin: 04/01/21 10:11 Dose: 1 mg Documented by: Lorazepam (Lorazepam 1 Mg Tab) 1 mg PO QAM OG Stop: 04/28/21 13:29 Last Admin: 04/03/21 09:28 Dose: Not Given Documented by: Lorazepam (Lorazepam 2 Mg/Ml Vial (Im Use)) 1 mg IM QAM PRN PRN Reason: for refusal of PO dose Stop: 04/28/21 13:29 Last Admin: 04/03/21 09:31 Dose: 1 mg Documented by: Lorazepam (Lorazepam 2 Mg/Ml Vial (Im Use)) 2 mg IM BID PRN PRN Reason: Agitation Stop: 04/30/21 13:45 Magnesium Hydroxide (Magnesium Hydroxide Susp 30 Ml Udc) 30 ml PO DAILY PRN PRN Reason: Constipation Stop: 04/10/21 10:27 Miscellaneous (Remove Patch Selegiline (Emsam)) 1 ea N/A Q24H OG Stop: 04/10/21 08:58 Last Admin: 04/03/21 09:28 Dose: 1 ea Documented by: Selegiline (Selegiline 6 Mg/24hr Tdsy) 6 mg TD DAILY OG Stop: 04/10/21 08:59 Last Admin: 04/03/21 09:27 Dose: 6 mg Documented by: Sodium Chloride (Sodium Chloride 0.65% Na Soln 45 Ml ([place])) 1 - 2 sprays NA PRN PRN PRN Reason: Nasal Dryness/Congestion Stop: 04/10/21 10:27 Mental Health & Subst Abuse Tx Psychiatrist Name of Psychiatrist: Oniel Negron Psychiatrist's Date of Appointment with Psychiatrist: 03/13/21 Time of Appointment with Psychiatrist: 9:20am Psychiatric Appointment Comment: Zoom *is on waiting list for appt. sooner Therapist Name of Therapist: Unknown Beater And Pulper Feeder Name of Beater And Pulper Feeder: Mauri ([facility]) Post Discharge Appointments Primary Care Physician Name Of Family Doctor: Unknown
--- NOTE | 2021-04-03 11:15 | Psychiatric Progress Note ---
Date of Service April 03, 2021 Impression / Recommendations Impression The patient is a 40 year old with a history of schizoaffective disorder vs bipolar depression who was admitted for failure of self-care and worsening decompensation at [facility]. The patient is deemed unstable and requires psychiatric hospitalization for diagnostic clarification, safety and stabilization, medication management and development of further coping skills. Initially focussed on Ativan dosing for catatonia but no consistent response to meds over objection. Patient seemed worse on Zyprexa, very poor PO. Started Emsam (MAOI patch on 02/21/21). Will focus on medication over objection and readdress possible ECT or other med trials. 304 status. 04/03/21: Unchanged Plan: Titrate Haldol to 10 mg IM, add Congentin prn, monitor activity and PO intake. Risk Factors Assessment Male: Yes : Yes Do You Have Access To A Gun?: No (in supportive living enviornment, pt unable to answer ) Mental Health Diagnoses: Yes Previous Psychiatric Hospitalization: Yes Protective Factors Assessment Employed: No Interval History Identifying Information 40 yo man with history of catatonia, depression, bipolar disorder vs schizophrenia admitted due to concern for decompensation with failure of self- care at [facility]. Admitted on 302, now 304. Chief Complaint remains mute/poor interactions Review of Systems Sleep Information Total Hours of Sleep: 6.5 Sleep Comments: pt on q-15 minute checks Meal Information Percent Meal Consumed - Breakfast: 0 Percent Meal Consumed - Lunch: 100 Percent Meal Consumed - Dinner: 0 Subjective Subjective Patient was seen & assessed and interval progress reviewed with treatment team. Will change bed when urinates on one, came out for 1 meal yesterday otherwise in bed on evening shift. Physical Exam Psychiatric continues to put his blanket over his head to avoid interaction/eye contact. Difficult to assess for EPS. Vital Signs (Past 24 Hours) Last Vital Signs Temp 35.8 C L 04/02/21 21:20 Pulse 82 04/02/21 21:20 Resp 18 04/02/21 21:20 BP 134/85 04/02/21 21:20 Pulse Ox 99 04/02/21 21:20 Results & Data ([facility]) Current Inpatient Medications Current Inpatient Medications: Current Inpatient Medications Acetaminophen (Acetaminophen 325 Mg Tab) 650 mg PO Q4H PRN PRN Reason: Headache or Minor Fever Stop: 04/10/21 10:27 Last Admin: 11/06/21 10:34 Dose: 325 mg Documented by: Al Hydrox/Mg Hydrox/Simethicone (Aluminum/Magnesium Susp 30 Ml Udc) 30 ml PO Q4H PRN PRN Reason: GI Upset Stop: 04/10/21 10:27 Benztropine Mesylate (Benztropine Mesylate 1 Mg Tab) 1 mg PO Q6 PRN PRN Reason: Muscle Spasm Stop: 05/03/21 08:40 Bismuth Subsalicylate (Bismuth Subsalicylate Liqd 236 Ml) 15 ml PO PRN PRN PRN Reason: Loose Stool Stop: 04/10/21 10:27 Diphenhydramine HCl (Diphenhydramine 50 Mg/Ml Vial) 50 mg IM BID PRN PRN Reason: Agitation Stop: 04/30/21 13:45 Enoxaparin Sodium (Enoxaparin Inj 40 Mg/0.4 Ml Syr) 40 mg SQ QAM OG Stop: 04/22/21 08:59 Last Admin: 04/03/21 09:29 Dose: 40 mg Documented by: Haloperidol (Haloperidol 5 Mg Tab) 10 mg PO QAM OG Stop: 05/03/21 08:59 Last Admin: 04/03/21 09:28 Dose: Not Given Documented by: Haloperidol Lactate (Haloperidol Lactate 5 Mg/Ml 1 Ml Vial) 5 mg IM BID PRN PRN Reason: Agitation Stop: 04/30/21 13:45 Haloperidol Lactate (Haloperidol Lactate 5 Mg/Ml 1 Ml Vial) 10 mg IM QAM PRN PRN Reason: for refusal of PO dose Stop: 04/28/21 13:29 Last Admin: 04/03/21 09:32 Dose: 10 mg Documented by: Lorazepam (Lorazepam 1 Mg Tab) 1 mg PO Q6 PRN PRN Reason: Anxiety/Agitation Stop: 04/10/21 08:14 Last Admin: 04/01/21 10:11 Dose: 1 mg Documented by: Lorazepam (Lorazepam 1 Mg Tab) 1 mg PO QAM OG Stop: 04/28/21 13:29 Last Admin: 04/03/21 09:28 Dose: Not Given Documented by: Lorazepam (Lorazepam 2 Mg/Ml Vial (Im Use)) 1 mg IM QAM PRN PRN Reason: for refusal of PO dose Stop: 04/28/21 13:29 Last Admin: 04/03/21 09:31 Dose: 1 mg Documented by: Lorazepam (Lorazepam 2 Mg/Ml Vial (Im Use)) 2 mg IM BID PRN PRN Reason: Agitation Stop: 04/30/21 13:45 Magnesium Hydroxide (Magnesium Hydroxide Susp 30 Ml Udc) 30 ml PO DAILY PRN PRN Reason: Constipation Stop: 04/10/21 10:27 Miscellaneous (Remove Patch Selegiline (Emsam)) 1 ea N/A Q24H OG Stop: 04/10/21 08:58 Last Admin: 04/03/21 09:28 Dose: 1 ea Documented by: Selegiline (Selegiline 6 Mg/24hr Tdsy) 6 mg TD DAILY OG Stop: 04/10/21 08:59 Last Admin: 04/03/21 09:27 Dose: 6 mg Documented by: Sodium Chloride (Sodium Chloride 0.65% Na Soln 45 Ml ([place])) 1 - 2 sprays NA PRN PRN PRN Reason: Nasal Dryness/Congestion Stop: 04/10/21 10:27 Mental Health & Subst Abuse Tx Psychiatrist Name of Psychiatrist: Oniel Negron Psychiatrist's Date of Appointment with Psychiatrist: 03/13/21 Time of Appointment with Psychiatrist: 9:20am Psychiatric Appointment Comment: Zoom *is on waiting list for appt. sooner Therapist Name of Therapist: Unknown Community Organization Director Name of Community Organization Director: Mauri MATTHEWS) Post Discharge Appointments Primary Care Physician Name Of Family Doctor: Unknown
[2021-04-04] MEDS: ENOXAPARIN INJ 40 MG/0.4 ML SYR SQ SCH (09:23)
[2021-04-04] MEDS: SELEGILINE 6 MG/24 HR TD SCH (09:23)
[2021-04-04] MEDS: [UNRECOGNIZED DRUG - REMARK] SCH (09:24)
--- NOTE | 2021-04-04 11:26 | Psychiatric Progress Note ---
Date of Service April 04, 2021 Impression / Recommendations Impression The patient is a 40 year old with a history of schizoaffective disorder vs bipolar depression who was admitted for failure of self-care and worsening decompensation at [facility]. The patient is deemed unstable and requires psychiatric hospitalization for diagnostic clarification, safety and stabilization, medication management and development of further coping skills. Initially focussed on Ativan dosing for catatonia but no consistent response to meds over objection. Patient seemed worse on Zyprexa, very poor PO. Started Emsam (MAOI patch on 02/21/21). He has been receiving Ativan intermittently over objection and now Haldol with no sustained benefit and little evidence of ongoing catatonia. Patient's mutism and severe amotivation initially felt to be catatonia due to depression with psychosis, nl neuro work up, now seems more severe negative symptoms (abulia, amotivation, avolition) due to psychosis (though seems less active on antipsychotic medications) and less likely primary abulia vs. akinetic mutism. The patient has failed transdermal and IM medications and is in need of ECT in attempt to restore some quality of life in an only 40 yo male who is referred to the [facility], at least to improve to the point he will take PO medications so more options. 04/03/21: Unchanged Plan: Titrate Haldol to 10 mg IM, add Congentin prn, monitor activity and PO intake. (1) Schizoaffective disorder: 04/04/21: Haldol increased to 10 mg PO or IM yesterday with no change overnight, will shift to pm. Will d/c Emsam patch after tomorrow's dose as no sustained benefit and will need to pursue court order for ECT after holiday weekend. 03/31/21: increase haldol to 5 mg po or IM and ativan 1mg po or IM. Continue Emsam patch. 03/30/21: continue haldol 2.5 mg po or IM and ativan 1mg po or IM. Continue Emsam patch. Walked three laps around the unit with encouragement today. 03/29/21: Starting haldol 2.5 mg po or IM and ativan 1mg po or IM for suspected psychosis with negativism, lack of personal care, thought blocking/negative sx and avolition. Continue Emsam patch. Discontinued modafinil. 03/28/21: continue to offer medications. Gave ativan 1mg IM x1 last night after additional episode of spitting. Repeat labwork today showing improvement in nutritional status (albumin and total protein now normal and BUN/CR wnl). 03/27/21: continue to offer medications, he continues to refuse. Continuing to explore ways to involve his extended family or other aspects of care which could incentive his engagement in care. May need to consider if a less sedating antipsychotic medication should be re-trialed. Referral for [facility] has been accepted. 03/26/21: continue current medications, refused modafinil but will try again over next few days. Continue with ativan 1mg BIDM po 03/25/21: start modafinil 50 mg qAM, will monitor carefully for any interactions with MAOI. Discontinued ativan IM for refusal of po. Reducing ativan dosing from TID po to BID po in the afternoon to avoid combining morning stimulant with morning benzo as this would be counterproductive to stimulant trial. 03/24/21: continue current medications. 03/23/21: labwork done today and reviewed no significant changes from prior labwork, still has elevated Cl. Continue with lovenox, emsam patch, and ativan 1 mg po TID (with BID IM for refusal) 03/22/21: labs in am and resume Lovenox given regression past 3 days. 03/18/21: unable to care for self outside of hospital, continue Emsam patch, will not increase as I do not believe he can follow appropriate dietary restrictions at higher doses. 03/17/21: Ativan 1 mg PO TID (inject up to BID for refusal). 03/16/21: resume IM Ativan for refusal of PO Ativan. 03/15/21: Continue current medications. Making referral to [facility] given slow progression and he is still very far from his baseline which will require extended treatment and thus he will be best served by a longer term treatment ap proach. 03/14/21: Continue with current medications. Reviewed labwork, K+ improved but still signs of poor nutrition. Elevated ALT could be side effect from Emsam patch (occurs in <1/100 - 05/999 pts), will continue to monitor. may be able to consider transition to a po medication if he remains consistent with accepting po medications but for now Emsam patch benefit is felt to outweigh risk of sl ight ALT elevation. 03/13/21: Continue with current medications. Supports from [employer] will visit tomorrow. Labwork CMP tomorrow morning to ensure correction of hypokalemia. 03/12/21: Continue with current medications. Discussed with treatment team having his [facility] supports come for a visit and they will visit on . Reviewed his interactions with staff during evening hours/overnight in the chart and continues to show progress with engagement. 03/11/21: Continue with ativan 1 mg BID po, canceled IM as he is agreeing to voluntary po. Given steady improvement over the last 1 week consistent with expected timeline for symptom improvement from Emsam patch he may no longer need longer term care option if improvement persists at this rate. If progress stalls or regression occurs then will reconsider if longer term option for treatment is required. 03/10/21: Reduce ativan to 1 mg BID due to dizziness, low BP and possible fall yesterday. Will discontinue lovenox per his request and since he is now consistently moving around throughout the day and at night, discussed risk of blood clots if he doesn't continue to move around and ambulate frequently which he vocalized understanding of and agreement with. Given improvement in nutritional intake will hold off on rechecking labwork for now, will get repeat labs in 1 week on 03/14. 03/09/21: Reviewed interim progress. Continue Emsam patch and ativan 2mg BID trial-will monitor for excessive sedation. 03/08/21: Ativan 2 mg BID trial. 03/07/21: patient seen by neurology, appreciate input, seems severe vegetative symptoms due to depression though last few doses of Ativan have been more effective than previous. Continue Ativan 1 mg po BID (IM for refusal). Attempt to replete K with powder dissolved in juice. 03/04/21: will explore personal [facility] as concerns he will not improve to point he can make meals/meet requirements to return to [facility] during this stay. 03/03/21--continue same. Cannot attempt coadmin with stimulant trial for hypersomnia as contraindicated with MAOI. No medical decompensation that would necessitate referral to medical or seeking court order for ECT. At minimum behaviors are challenging but more appropriate when willing to interact with staff. Need to consider longer term care options given slow progression. 03/02/21--interim care reviewed. Continue EMSAM and Lovenox injection. 03/01/21--Day 9 of Emsam patch. Continuing with behavioral plan to encourage behavioral activation-he was provided with plan with goals of having him come out of his room to eat meals, cooperate with repositioning, stand up when his sheets are changed/or if he prefers to stay in bed until the evening then clean sheets can be provided for him to put on the bed or request help putting on the bed in the evening, and continue independently voiding in his bedside urinal, shower can be started for him but he should be encouraged to get into the shower on his own, encourage him to address basic hygiene by continuing to provide him with easy access to his toothbrush, shampoo, etc. 02/28/21--Day 8 of Emsam patch. Now seeing new pattern of daily food intake which is encouraging. Continues to present with regressed behaviors and refusal to interact during the day. 02/27/21--Continue with Emsam patch. Getting out of bed more in the evenings and eating more. Lack of engagement during the day was volitional-pulling blanket over his head after he saw me enter his room. Also becoming more irritable with staff when he is encouraged to do more on his own for behavioral activation. 02/26/21-Continue with Emsam patch. 304 status granted. Ate last night and interacted with staff but no engagement today. 02/25/21--Continues to demonstrate severe depression with neurovegetative sym ptoms with no engagement with staff. Behavioral plan challenged by finding a reward/incentive that he enjoys. Continuing to encourage behavioral activation. Petitioned for 304 status with hearing scheduled for tomorrow given ongoing symptom burden and need for ongoing treatment. Remains on lovenox for DVT prophylaxis. Continue with Emsam patch. 02/24/21--Remains isolative and will not engage verbally. Encouragingly is attending slightly more to some of his ADLs, will continue with behavioral plan in hopes to continue encouraging behavioral activation although food does not seem to be a good motivator/reward for him. Will continue to think about other possible motivators for him to help encourage increased activity, po intake and engagement with therapeutic milieu. No signs of HTN or other side effects from MAOI at this point. 02/23/21--Continues to demonstrate neurovegetative symptoms of depression, remaining in bed most of the day but sometimes more engagement in the evenings. Will implement behavioral plan to encourage behavioral activation to treat neurovegetative symptoms in conjunction with Emsam as well as to encourage increased participation with ADLs. Nursing to provide him with tools to help him eat and promote good hygiene (brining in meals, supplies to wash up) and then if he does this independently will bring in ice cream or chips as reward to see if this helps with activation and increased po intake. 02/22/21--neurologic work up with EEG and brain MRI unremarkable, continue Emsam trial. 02/21/21--complex differential--depression with psychotic features in a patient with bipolar disorder most likely, certainly not typcial catatonia. No hx of hyperphagia or hypersexuality known that would suggest Kleine-Hess syndrome. Will proceed with Emsam patch 6 mg trial as only means to administer antidepressant. Will check with an ECT facility to determine if can treat patient if pursue a court order (will await emsam trial first). MRI brain (patient will need various x rays first as can't answer screening questions, no hx of pacemaker on chart). bedside EEG to rule out status epilepticus. 02/19/21--non-formulary request for Emsam patch. Hasn't taken antidepressants for at least 6 weeks. Would reconsider current med doses when this becomes available. without antidepressant he will continue to decompensate medically and is at significant risk of further decompensation. 02/17/21--lytes, Bun/Cr improved; given sleep phase shift desirable to shift antipsychotic to pm meal with IM Zyprexa for refusal. Bedside EEG likely poor quality/low yeild but consider if no improvement. 02/16/21--Reviewed care by Dr. Garces in italics. will d/c IM Ativan in favor of Zyprexa IM for failure to take Latuda. Does take Lorazepam prn PO, adjust dose and frequency and monitor use. Will repeat labs and PO intake so variable and hard to track. 02/09/2021--admitted to [facility]. Ativan 2mg SL TID ordered. Track Is&Os. Vitals BID. 02/10/2021--continue with ativan 2mg TID SL. Showing significant improving in catatonic symptoms since ativan trial last night. If he continues to walk around no need for DVT prophylaxis. Will consider if 302 needs to be converted to 303 based on progress today. 02/11/2021--continue with scheduled ativan. Less engagement today but still eating and drinking. Plan for likely 303 given his inability/reluctance to engag e in treatment. Reviewed outside records. 02/12/2021--continues to refuse ativan today and won't engage with anyone nor leave his bed except to use the bathroom and to eat at night. Given some moveme nt in the evening and to the bathroom he doesn't require DVT prophylaxis at this time but this remains a concern should he clinically worsen and will continue to monitor his nutritional and medical status closely. 02/13/2021--placed on 303 status due to ongoing decompensation due to catatonia including refusal of medication, not eating, not drinking, not communicating with anyone and lying in bed all day. Once catatonia begins to improve with treatment will aim to start latuda which helped previously. [place] to require medications over objection for ativan to treat catatonia. If catatonia does not respond quickly to ativan then will consider if DVT prophylaxis should be initiated. 02/14/2021--no significant change in behaviors with additional of scheduled ativan 2 mg BID as medication over objection. Given concern for skin breakdown consult was placed for wound nurse. Given concern for possible DVT and after discussion with hospitalist will begin lovenox 40mg subQ daily. David was able to vocalize consent for this as he remains mute and unable/unwilling to engage but explained the risks, benefits, alternatives and rationale for lovenox and that we will be offering this to him. 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 02/15/2021--Have ruled out catatonia given inconsistent response to ativan trial, multiple observed examples of volitional movement immediately following periods of patient lying in bed and mute. Subsequent catatonia scales have been negative and patient feels that his symptoms represent withdrawn features of anxiety and depression. Given bipolar depression with neurovegetative features will start latuda. Encouragingly he is eating more and drinking more and got out of bed twice last night. Risk Factors Assessment Male: Yes : Yes Do You Have Access To A Gun?: No (in supportive living enviornment, pt unable to answer ) Mental Health Diagnoses: Yes Previous Psychiatric Hospitalization: Yes Protective Factors Assessment Employed: No Interval History Identifying Information 40 yo man with history of catatonia, depression, bipolar disorder vs schizophrenia admitted due to concern for decompensation with failure of self- care at [facility]. Admitted on 302, now 304. Chief Complaint abulia Review of Systems Sleep Information Total Hours of Sleep: 6.5 Sleep Comments: pt on q-15 minute checks Meal Information Percent Meal Consumed - Breakfast: 0 Percent Meal Consumed - Lunch: 0 Percent Meal Consumed - Dinner: 0 ate later, last labs 03/28/21. Subjective Subjective Patient was seen & assessed and interval progress reviewed with nursing. Patient ate evening meal yesterday otherwise limited time out of bed. No spontaneous speech/interactions with staff most shifts. Does not appear to have any EPS or significant sedation from increase in Haldol, but again he will only shift with prompting (like for his Lovenox this am). Physical Exam Psychiatric uncooperative, mute, no eye contact. Vital Signs (Past 24 Hours) Last Vital Signs Temp 36.9 C 04/03/21 20:37 Pulse 94 H 04/03/21 20:37 Resp 16 04/03/21 20:37 BP 144/97 H 04/03/21 20:37 Pulse Ox 94 04/03/21 20:37 Results & Data ([facility]) Current Inpatient Medications Current Inpatient Medications: Current Inpatient Medications Acetaminophen (Acetaminophen 325 Mg Tab) 650 mg PO Q4H PRN PRN Reason: Headache or Minor Fever Stop: 04/10/21 10:27 Last Admin: 03/16/21 10:34 Dose: 325 mg Documented by: Al Hydrox/Mg Hydrox/Simethicone (Aluminum/Magnesium Susp 30 Ml Udc) 30 ml PO Q4H PRN PRN Reason: GI Upset Stop: 04/10/21 10:27 Benztropine Mesylate (Benztropine Mesylate 1 Mg Tab) 1 mg PO Q6 PRN PRN Reason: Muscle Spasm Stop: 05/03/21 08:40 Bismuth Subsalicylate (Bismuth Subsalicylate Liqd 236 Ml) 15 ml PO PRN PRN PRN Reason: Loose Stool Stop: 04/10/21 10:27 Diphenhydramine HCl (Diphenhydramine 50 Mg/Ml Vial) 50 mg IM BID PRN PRN Reason: Agitation Stop: 04/30/21 13:45 Enoxaparin Sodium (Enoxaparin Inj 40 Mg/0.4 Ml Syr) 40 mg SQ QAM OG Stop: 04/22/21 08:59 Last Admin: 04/04/21 09:23 Dose: 40 mg Documented by: Haloperidol (Haloperidol 5 Mg Tab) 10 mg PO DAILY@2100 OG Stop: 05/04/21 20:59 Haloperidol Lactate (Haloperidol Lactate 5 Mg/Ml 1 Ml Vial) 5 mg IM BID PRN PRN Reason: Agitation Stop: 04/30/21 13:45 Haloperidol Lactate (Haloperidol Lactate 5 Mg/Ml 1 Ml Vial) 10 mg IM DAILY PRN PRN Reason: for refusal of PO dose Stop: 05/03/21 08:41 Lorazepam (Lorazepam 1 Mg Tab) 1 mg PO Q6 PRN PRN Reason: Anxiety/Agitation Stop: 04/10/21 08:14 Last Admin: 04/01/21 10:11 Dose: 1 mg Documented by: Lorazepam (Lorazepam 2 Mg/Ml Vial (Im Use)) 2 mg IM BID PRN PRN Reason: Agitation Stop: 04/30/21 13:45 Lorazepam (Lorazepam 1 Mg Tab) 1 mg PO DAILY@2100 OG Stop: 05/04/21 20:59 Lorazepam (Lorazepam 2 Mg/Ml Vial (Im Use)) 1 mg IM DAILY PRN PRN Reason: for refusal of PO dose Stop: 04/28/21 13:29 Magnesium Hydroxide (Magnesium Hydroxide Susp 30 Ml Udc) 30 ml PO DAILY PRN PRN Reason: Constipation Stop: 04/10/21 10:27 Miscellaneous (Remove Patch Selegiline (Emsam)) 1 ea N/A Q24H [facility] Stop: 04/10/21 08:58 Last Admin: 04/04/21 09:24 Dose: 1 ea Documented by: Selegiline (Selegiline 6 Mg/24hr Tdsy) 6 mg TD DAILY OG Stop: 04/05/21 22:00 Last Admin: 04/04/21 09:23 Dose: 6 mg Documented by: Sodium Chloride (Sodium Chloride 0.65% Na Soln 45 Ml ([place])) 1 - 2 sprays NA PRN PRN PRN Reason: Nasal Dryness/Congestion Stop: 04/10/21 10:27 Mental Health & Subst Abuse Tx Psychiatrist Name of Psychiatrist: Oniel Negron Psychiatrist's Date of Appointment with Psychiatrist: 03/13/21 Time of Appointment with Psychiatrist: 9:20am Psychiatric Appointment Comment: Zoom *is on waiting list for appt. sooner Therapist Name of Therapist: Unknown [employer] Name of [employer]: Mauri ([facility]) Post Discharge Appointments Primary Care Physician Name Of Family Doctor: Unknown
[2021-04-04] MEDS: LORazepam 1 MG TAB PO SCH (20:51)
[2021-04-04] MEDS: haloperidoL 5 MG TAB PO SCH (20:51)
[2021-04-04] MEDS: LORazepam 1 MG TAB PO PRN (20:52)
[2021-04-04] MEDS: HALOPERIDOL LACTATE 5 MG/ML 1 ML VIAL IM PRN (20:58)
[2021-04-05] MEDS: SELEGILINE 6 MG/24 HR TD SCH (09:38)
[2021-04-05] MEDS: [UNRECOGNIZED DRUG - REMARK] SCH (09:43)
[2021-04-05 09:55] LABS: Calcium 9.1 mg/dl (8.5-10.1); Creatinine Clr Calc Pharmacy 142.5 ml/min; Est GFR (African American) 123.4 ml/min; Est GFR (Non-African American) 106.5 ml/min; Potassium 3.1 mmol/L (3.5-5.1)
--- NOTE | 2021-04-05 10:27 | Psychiatric Progress Note ---
Date of Service April 05, 2021 Impression / Recommendations Impression The patient is a 40 year old with a history of schizoaffective disorder vs bipolar depression who was admitted for failure of self-care and worsening decompensation at half-way. The patient is deemed unstable and requires psychiatric hospitalization for diagnostic clarification, safety and stabilization, medication management and development of further coping skills. Initially focussed on Ativan dosing for catatonia but no consistent response to meds over objection. Patient seemed worse on Zyprexa, very poor PO. Started Emsam (MAOI patch on 02/21/21). He has been receiving Ativan intermittently over objection and now Haldol with no sustained benefit and little evidence of ongoing catatonia. Patient's mutism and severe amotivation initially felt to be catatonia due to depression with psychosis, nl neuro work up, now seems more severe negative symptoms (abulia, amotivation, avolition) due to psychosis (though seems less active on antipsychotic medications) and less likely primary abulia vs. akinetic mutism. The patient has failed transdermal and IM medications and is in need of ECT in attempt to restore some quality of life in an only 40 yo male who is referred to the [facility], at least to improve to the point he will take PO medications so more options. 04/05/21: Unchanged (1) Schizoaffective disorder: 04/05/21: attempt to replete K again, Discontinue Emsam patch, pursue court order for ECT when offices reopen after holiday. Continue IM Haldol with Ativan trial for now. 04/04/21: Haldol increased to 10 mg PO or IM yesterday with no change overnight, will shift to pm. Will d/c Emsam patch after tomorrow's dose as no sustained benefit and will need to pursue court order for ECT after holiday weekend. 03/31/21: increase haldol to 5 mg po or IM and ativan 1mg po or IM. Continue Emsam patch. 03/30/21: continue haldol 2.5 mg po or IM and ativan 1mg po or IM. Continue Emsam patch. Walked three laps around the unit with encouragement today. 03/29/21: Starting haldol 2.5 mg po or IM and ativan 1mg po or IM for suspected psychosis with negativism, lack of personal care, thought blocking/negative sx and avolition. Continue Emsam patch. Discontinued modafinil. 03/28/21: continue to offer medications. Gave ativan 1mg IM x1 last night after additional episode of spitting. Repeat labwork today showing improvement in nutritional status (albumin and total protein now normal and BUN/CR wnl). 03/27/21: continue to offer medications, he continues to refuse. Continuing to explore ways to involve his extended family or other aspects of care which could incentive his engagement in care. May need to consider if a less sedating antipsychotic medication should be re-trialed. Referral for [facility] has been accepted. 03/26/21: continue current medications, refused modafinil but will try again over next few days. Continue with ativan 1mg BIDM po 03/25/21: start modafinil 50 mg qAM, will monitor carefully for any interactions with MAOI. Discontinued ativan IM for refusal of po. Reducing ativan dosing from TID po to BID po in the afternoon to avoid combining morning stimulant with morning benzo as this would be counterproductive to stimulant trial. 03/24/21: continue current medications. 03/23/21: labwork done today and reviewed no significant changes from prior labwork, still has elevated Cl. Continue with lovenox, emsam patch, and ativan 1 mg po TID (with BID IM for refusal) 03/22/21: labs in am and resume Lovenox given regression past 3 days. 03/18/21: unable to care for self outside of hospital, continue Emsam patch, will not increase as I do not believe he can follow appropriate dietary restrictions at higher doses. 03/17/21: Ativan 1 mg PO TID (inject up to BID for refusal). 03/16/21: resume IM Ativan for refusal of PO Ativan. 03/15/21: Continue current medications. Making referral to [facility] given slow progression and he is still very far from his baseline which will require extended treatment and thus he will be best served by a longer term treatment approach. 03/14/21: Continue with current medications. Reviewed labwork, K+ improved but still signs of poor nutrition. Elevated ALT could be side effect from Emsam patch (occurs in <1/100 - 05/999 pts), will continue to monitor. may be able to consider transition to a po medication if he remains consistent with accepting po medications but for now Emsam patch benefit is felt to outweigh risk of slight ALT elevation. 03/13/21: Continue with current medications. Supports from [employer] will visit tomorrow. Labwork CMP tomorrow morning to ensure correction of hypokalemia. 03/12/21: Continue with current medications. Discussed with treatment team having his half-way supports come for a visit and they will visit on . Reviewed his interactions with staff during evening hours/overnight in the chart and continues to show progress with engagement. 03/11/21: Continue with ativan 1 mg BID po, canceled IM as he is agreeing to voluntary po. Given steady improvement over the last 1 week consistent with expected timeline for symptom improvement from Emsam patch he may no longer need longer term care option if improvement persists at this rate. If progress stalls or regression occurs then will reconsider if longer term option for treatment is required. 03/10/21: Reduce ativan to 1 mg BID due to dizziness, low BP and possible fall yesterday. Will discontinue lovenox per his request and since he is now consistently moving around throughout the day and at night, discussed risk of blood clots if he doesn't continue to move around and ambulate frequently which he vocalized understanding of and agreement with. Given improvement in nutritional intake will hold off on rechecking labwork for now, will get repeat labs in 1 week on 03/14. 03/09/21: Reviewed interim progress. Continue Emsam patch and ativan 2mg BID trial-will monitor for excessive sedation. 03/08/21: Ativan 2 mg BID trial. 03/07/21: patient seen by neurology, appreciate input, seems severe vegetative symptoms due to depression though last few doses of Ativan have been more effective than previous. Continue Ativan 1 mg po BID (IM for refusal). Attempt to replete K with powder dissolved in juice. 03/04/21: will explore personal senior care as concerns he will not improve to point he can make meals/meet requirements to return to [facility] during this stay. 03/03/21--continue same. Cannot attempt coadmin with stimulant trial for hypersomnia as contraindicated with MAOI. No medical decompensation that would necessitate referral to medical or seeking court order for ECT. At minimum behaviors are challenging but more appropriate when willing to interact with staff. Need to consider longer term care options given slow progression. 03/02/21--interim care reviewed. Continue EMSAM and Lovenox injection. 03/01/21--Day 9 of Emsam patch. Continuing with behavioral plan to encourage behavioral activation-he was provided with plan with goals of having him come out of his room to eat meals, cooperate with repositioning, stand up when his sheets are changed/or if he prefers to stay in bed until the evening then clean sheets can be provided for him to put on the bed or request help putting on the bed in the evening, and continue independently voiding in his bedside urinal, shower can be started for him but he should be encouraged to get into the shower on his own, encourage him to address basic hygiene by continuing to provide him with easy access to his toothbrush, shampoo, etc. 02/28/21--Day 8 of Emsam patch. Now seeing new pattern of daily food intake which is encouraging. Continues to present with regressed behaviors and refusal to interact during the day. 02/27/21--Continue with Emsam patch. Getting out of bed more in the evenings and eating more. Lack of engagement during the day was volitional-pulling blanket over his head after he saw me enter his room. Also becoming more irritable with staff when he is encouraged to do more on his own for behavioral activation. 02/26/21-Continue with Emsam patch. 304 status granted. Ate last night and interacted with staff but no engagement today. 02/25/21--Continues to demonstrate severe depression with neurovegetative symptoms with no engagement with staff. Behavioral plan challenged by finding a reward/incentive that he enjoys. Continuing to encourage behavioral activation. Petitioned for 304 status with hearing scheduled for tomorrow given ongoing symptom burden and need for ongoing treatment. Remains on lovenox for DVT prophylaxis. Continue with Emsam patch. 02/24/21--Remains isolative and will not engage verbally. Encouragingly is attending slightly more to some of his ADLs, will continue with behavioral plan in hopes to continue encouraging behavioral activation although food does not seem to be a good motivator/reward for him. Will continue to think about other possible motivators for him to help encourage increased activity, po intake and engagement with therapeutic milieu. No signs of HTN or other side effects from MAOI at this point. 02/23/21--Continues to demonstrate neurovegetative symptoms of depression, remaining in bed most of the day but sometimes more engagement in the evenings. Will implement behavioral plan to encourage behavioral activation to treat neurovegetative symptoms in conjunction with Emsam as well as to encourage increased participation with ADLs. Nursing to provide him with tools to help him eat and promote good hygiene (brining in meals, supplies to wash up) and then if he does this independently will bring in ice cream or chips as reward to see if this helps with activation and increased po intake. 02/22/21--neurologic work up with EEG and brain MRI unremarkable, continue Emsam trial. 02/21/21--complex differential--depression with psychotic features in a patient with bipolar disorder most likely, certainly not typcial catatonia. No hx of hyperphagia or hypersexuality known that would suggest Kleine-Hess syndrome. Will proceed with Emsam patch 6 mg trial as only means to administer antidepressant. Will check with an ECT facility to determine if can treat patient if pursue a court order (will await emsam trial first). MRI brain (patient will need various x rays first as can't answer screening questions, no hx of pacemaker on chart). bedside EEG to rule out status epilepticus. 02/19/21--non-formulary request for Emsam patch. Hasn't taken antidepressants for at least 6 weeks. Would reconsider current med doses when this becomes available. without antidepressant he will continue to decompensate medically and is at significant risk of further decompensation. 02/17/21--lytes, Bun/Cr improved; given sleep phase shift desirable to shift antipsychotic to pm meal with IM Zyprexa for refusal. Bedside EEG likely poor quality/low yeild but consider if no improvement. 02/16/21--Reviewed care by Dr. Garces in italics. will d/c IM Ativan in favor of Zyprexa IM for failure to take Latuda. Does take Lorazepam prn PO, adjust dose and frequency and monitor use. Will repeat labs and PO intake so variable and hard to track. 02/09/2021--admitted to [facility]. Ativan 2mg SL TID ordered. Track Is&Os. Vitals BID. 02/10/2021--continue with ativan 2mg TID SL. Showing significant improving in catatonic symptoms since ativan trial last night. If he continues to walk around no need for DVT prophylaxis. Will consider if 302 needs to be converted to 303 based on progress today. 02/11/2021--continue with scheduled ativan. Less engagement today but still eating and drinking. Plan for likely 303 given his inability/reluctance to engage in treatment. Reviewed outside records. 02/12/2021--continues to refuse ativan today and won't engage with anyone nor leave his bed except to use the bathroom and to eat at night. Given some movement in the evening and to the bathroom he doesn't require DVT prophylaxis at this time but this remains a concern should he clinically worsen and will continue to monitor his nutritional and medical status closely. 02/13/2021--placed on 303 status due to ongoing decompensation due to catatonia including refusal of medication, not eating, not drinking, not communicating with anyone and lying in bed all day. Once catatonia begins to improve with treatment will aim to start latuda which helped previously. [place] to require medications over objection for ativan to treat catatonia. If catatonia does not respond quickly to ativan then will consider if DVT prophylaxis should be initiated. 02/14/2021--no significant change in behaviors with additional of scheduled ativan 2 mg BID as medication over objection. Given concern for skin breakdown consult was placed for wound nurse. Given concern for possible DVT and after discussion with hospitalist will begin lovenox 40mg subQ daily. David was able to vocalize consent for this as he remains mute and unable/unwilling to engage but explained the risks, benefits, alternatives and rationale for lovenox and that we will be offering this to him. 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 02/15/2021--Have ruled out catatonia given inconsistent response to ativan trial, multiple observed examples of volitional movement immediately following periods of patient lying in bed and mute. Subsequent catatonia scales have been negative and patient feels that his symptoms represent withdrawn features of anxiety and depression. Given bipolar depression with neurovegetative features will start latuda. Encouragingly he is eating more and drinking more and got out of bed twice last night. Risk Factors Assessment Male: Yes : Yes Do You Have Access To A Gun?: No (in supportive living enviornment, pt unable to answer ) Mental Health Diagnoses: Yes Previous Psychiatric Hospitalization: Yes Protective Factors Assessment Employed: No Interval History Identifying Information 40 yo man with history of catatonia, depression, bipolar disorder vs schizophrenia admitted due to concern for decompensation with failure of self- care at [facility]. Admitted on 302, now 304. Chief Complaint "[]". Review of Systems Sleep Information Total Hours of Sleep: 6.5 Sleep Comments: pt on q-15 minute checks Meal Information Percent Meal Consumed - Breakfast: 0 Percent Meal Consumed - Lunch: 0 Percent Meal Consumed - Dinner: 0 Nutrition Comment: pt alerted that lunch is ready; pt did not respond Subjective Subjective Patient was seen & assessed and interval progress reviewed with [treatment team] [nursing and social work] Physical Exam Psychiatric Orientation: + uncooperative Apperance: + disheveled Eye Contact: + poor eye contact Motor Behavior: no abnormal motor movements and + psychomotor retardation Speech: + mute Affect: + flat affect Vital Signs (Past 24 Hours) Last Vital Signs Temp 36.6 C 04/04/21 20:28 Pulse 94 H 04/03/21 20:37 Resp 16 04/03/21 20:37 BP 144/97 H 04/03/21 20:37 Pulse Ox 94 04/03/21 20:37 Results & Data ([facility]) Laboratory Results Laboratory Results - last 24 hr 04/05/21 09:07 Sodium 140 Potassium 3.1 L Chloride 106 Carbon Dioxide 21 Anion Gap 13.0 H BUN 7 Creatinine 0.90 Est Cr Clr Drug Dosing 142.5 Est GFR ( Amer) 123.4 Est GFR (Non-Af Amer) 106.5 BUN/Creatinine Ratio 8.0 L Glucose 111 H Calcium 9.1 Current Inpatient Medications Current Inpatient Medications: Current Inpatient Medications Acetaminophen (Acetaminophen 325 Mg Tab) 650 mg PO Q4H PRN PRN Reason: Headache or Minor Fever Stop: 04/10/21 10:27 Last Admin: 03/16/21 10:34 Dose: 325 mg Documented by: Al Hydrox/Mg Hydrox/Simethicone (Aluminum/Magnesium Susp 30 Ml Udc) 30 ml PO Q4H PRN PRN Reason: GI Upset Stop: 04/10/21 10:27 Benztropine Mesylate (Benztropine Mesylate 1 Mg Tab) 1 mg PO Q6 PRN PRN Reason: Muscle Spasm Stop: 05/03/21 08:40 Bismuth Subsalicylate (Bismuth Subsalicylate Liqd 236 Ml) 15 ml PO PRN PRN PRN Reason: Loose Stool Stop: 04/10/21 10:27 Diphenhydramine HCl (Diphenhydramine 50 Mg/Ml Vial) 50 mg IM BID PRN PRN Reason: Agitation Stop: 04/30/21 13:45 Enoxaparin Sodium (Enoxaparin Inj 40 Mg/0.4 Ml Syr) 40 mg SQ DAILY@2099 OG Stop: 05/05/21 20:59 Haloperidol (Haloperidol 5 Mg Tab) 10 mg PO DAILY@2100 OG Stop: 05/04/21 20:59 Last Admin: 04/04/21 20:51 Dose: Not Given Documented by: Haloperidol Lactate (Haloperidol Lactate 5 Mg/Ml 1 Ml Vial) 5 mg IM BID PRN PRN Reason: Agitation Stop: 04/30/21 13:45 Haloperidol Lactate (Haloperidol Lactate 5 Mg/Ml 1 Ml Vial) 10 mg IM DAILY PRN PRN Reason: for refusal of PO dose Stop: 05/03/21 08:41 Last Admin: 04/04/21 20:58 Dose: 10 mg Documented by: Lorazepam (Lorazepam 1 Mg Tab) 1 mg PO Q6 PRN PRN Reason: Anxiety/Agitation Stop: 04/10/21 08:14 Last Admin: 04/04/21 20:52 Dose: 1 mg Documented by: Lorazepam (Lorazepam 2 Mg/Ml Vial (Im Use)) 2 mg IM BID PRN PRN Reason: Agitation Stop: 04/30/21 13:45 Lorazepam (Lorazepam 1 Mg Tab) 1 mg PO DAILY@2100 OG Stop: 05/04/21 20:59 Last Admin: 04/04/21 20:51 Dose: Not Given Documented by: Lorazepam (Lorazepam 2 Mg/Ml Vial (Im Use)) 1 mg IM DAILY PRN PRN Reason: for refusal of PO dose Stop: 04/28/21 13:29 Magnesium Hydroxide (Magnesium Hydroxide Susp 30 Ml Udc) 30 ml PO DAILY PRN PRN Reason: Constipation Stop: 04/10/21 10:27 Miscellaneous (Remove Patch Selegiline (Emsam)) 1 ea N/A Q24H OG Stop: 04/10/21 08:58 Last Admin: 04/05/21 09:43 Dose: 1 ea Documented by: Selegiline (Selegiline 6 Mg/24hr Tdsy) 6 mg TD DAILY OG Stop: 04/05/21 22:00 Last Admin: 04/05/21 09:38 Dose: 6 mg Documented by: Sodium Chloride (Sodium Chloride 0.65% Na Soln 45 Ml ([place])) 1 - 2 sprays NA PRN PRN PRN Reason: Nasal Dryness/Congestion Stop: 04/10/21 10:27 Mental Health & Subst Abuse Tx Psychiatrist Name of Psychiatrist: Oniel Negron Psychiatrist's Date of Appointment with Psychiatrist: 03/13/21 Time of Appointment with Psychiatrist: 9:20am Psychiatric Appointment Comment: Zoom *is on waiting list for appt. sooner Therapist Name of Therapist: Unknown Solution Professional Name of Solution Professional: Mauri ([facility]) Post Discharge Appointments Primary Care Physician Name Of Family Doctor: Unknown
[2021-04-05] MEDS ORDERED: POTASSIUM CHLORIDE PWD 20 MEQ PACK PO SCH (17:00)
[2021-04-05] MEDS: ENOXAPARIN INJ 40 MG/0.4 ML SYR SQ SCH (21:12)
[2021-04-05] MEDS: LORazepam 2 MG/ML VIAL (IM USE) IM PRN (21:14)
[2021-04-05] MEDS: HALOPERIDOL LACTATE 5 MG/ML 1 ML VIAL IM PRN (21:15)
[2021-04-05] MEDS: haloperidoL 5 MG TAB PO SCH (21:16)
[2021-04-05] MEDS: LORazepam 1 MG TAB PO SCH (21:16)
[2021-04-06] MEDS: [UNRECOGNIZED DRUG - REMARK] SCH (09:29)
[2021-04-06] MEDS: POTASSIUM CHLORIDE PWD 20 MEQ PACK PO SCH ×2 (09:45→09:58)
--- NOTE | 2021-04-06 13:00 | Psychiatric Progress Note ---
Date of Service April 06, 2021 Impression / Recommendations Impression The patient is a 40 year old with a history of schizoaffective disorder vs bipolar depression who was admitted for failure of self-care and worsening decompensation at long term. The patient is deemed unstable and requires psychiatric hospitalization for diagnostic clarification, safety and stabilization, medication management and development of further coping skills. Initially focussed on Ativan dosing for catatonia but no consistent response to meds over objection. Patient seemed worse on Zyprexa, very poor PO. Started Emsam (MAOI patch on 02/21/21). He has been receiving Ativan intermittently over objection and now Haldol with no sustained benefit and little evidence of ongoing catatonia. Patient's mutism and severe amotivation initially felt to be catatonia due to depression with psychosis, nl neuro work up, now seems more severe negative symptoms (abulia, amotivation, avolition) due to psychosis (though seems less active on antipsychotic medications) and less likely primary abulia vs. akinetic mutism. The patient has failed transdermal and IM medications and is in need of ECT in attempt to restore some quality of life in an only 40 yo male who is referred to the [facility], at least to improve to the point he will take PO medications so more options. 04/06/21: decreased activity, bed scale different from regular weight but 20 lb weight loss from admission, ongoing grossly disorganized behavior. (1) Schizoaffective disorder: 04/06/21: repeat labs in am, consider medicine consult (currently no acute indication for transfer), previous experience was he was less active when prescribed Zyprexa so monitor risks/benefits of Haldol. 04/05/21: attempt to replete K again, Discontinue Emsam patch, pursue court order for ECT when offices reopen after hol. Continue IM Haldol with Ativan trial for now. 04/04/21: Haldol increased to 10 mg PO or IM yesterday with no change overnight, will shift to pm. Will d/c Emsam patch after tomorrow's dose as no sustained benefit and will need to pursue court order for ECT after holiday weekend. 03/31/21: increase haldol to 5 mg po or IM and ativan 1mg po or IM. Continue Em yogesh patch. 03/30/21: continue haldol 2.5 mg po or IM and ativan 1mg po or IM. Continue Emsam patch. Walked three laps around the unit with encouragement today. 03/29/21: Starting haldol 2.5 mg po or IM and ativan 1mg po or IM for suspected psychosis with negativism, lack of personal care, thought blocking/negative sx and avolition. Continue Emsam patch. Discontinued modafinil. 03/28/21: continue to offer medications. Gave ativan 1mg IM x1 last night after additional episode of spitting. Repeat labwork today showing improvement in nutritional status (albumin and total protein now normal and BUN/CR wnl). 03/27/21: continue to offer medications, he continues to refuse. Continuing to explore ways to involve his extended family or other aspects of care which could incentive his engagement in care. May need to consider if a less sedating antipsychotic medication should be re-trialed. Referral for [facility] has been accepted. 03/26/21: continue current medications, refused modafinil but will try again over next few days. Continue with ativan 1mg BIDM po 03/25/21: start modafinil 50 mg qAM, will monitor carefully for any interactions with MAOI. Discontinued ativan IM for refusal of po. Reducing ativan dosing from TID po to BID po in the afternoon to avoid combining morning stimulant with morning benzo as this would be counterproductive to stimulant trial. 03/24/21: continue current medications. 03/23/21: labwork done today and reviewed no significant changes from prior labwork, still has elevated Cl. Continue with lovenox, emsam patch, and ativan 1 mg po TID (with BID IM for refusal) 03/22/21: labs in am and resume Lovenox given regression past 3 days. 03/18/21: unable to care for self outside of hospital, continue Emsam patch, will not increase as I do not believe he can follow appropriate dietary restrictions at higher doses. 03/17/21: Ativan 1 mg PO TID (inject up to BID for refusal). 03/16/21: resume IM Ativan for refusal of PO Ativan. 03/15/21: Continue current medications. Making referral to [facility] given slow progression and he is still very far from his baseline which will require extended treatment and thus he will be best served by a longer term treatment approach. 03/14/21: Continue with current medications. Reviewed labwork, K+ improved but still signs of poor nutrition. Elevated ALT could be side effect from Emsam patc h (occurs in <1/100 - 05/999 pts), will continue to monitor. may be able to consider transition to a po medication if he remains consistent with accepting po medications but for now Emsam patch benefit is felt to outweigh risk of slight ALT elevation. 03/13/21: Continue with current medications. Supports from [place] will visit tomorrow. Labwork CMP tomorrow morning to ensure correction of hypokalemia. 03/12/21: Continue with current medications. Discussed with treatment team having his long term supports come for a visit and they will visit on . Reviewed his interactions with staff during evening hours/overnight in the chart and continues to show progress with engagement. 03/11/21: Continue with ativan 1 mg BID po, canceled IM as he is agreeing to voluntary po. Given steady improvement over the last 1 week consistent with expected timeline for symptom improvement from Emsam patch he may no longer need longer term care option if improvement persists at this rate. If progress stalls or regression occurs then will reconsider if longer term option for treatment is required. 03/10/21: Reduce ativan to 1 mg BID due to dizziness, low BP and possible fall yesterday. Will discontinue lovenox per his request and since he is now consistently moving around throughout the day and at night, discussed risk of blood clots if he doesn't continue to move around and ambulate frequently which he vocalized understanding of and agreement with. Given improvement in nutritional intake will hold off on rechecking labwork for now, will get repeat labs in 1 week on 03/14. 03/09/21: Reviewed interim progress. Continue Emsam patch and ativan 2mg BID trial-will monitor for excessive sedation. 03/08/21: Ativan 2 mg BID trial. 03/07/21: patient seen by neurology, appreciate input, seems severe vegetative symptoms due to depression though last few doses of Ativan have been more effective than previous. Continue Ativan 1 mg po BID (IM for refusal). Attempt to replete K with powder dissolved in juice. 03/04/21: will explore personal assisted as concerns he will not improve to point he can make meals/meet requirements to return to [facility] during this stay. 03/03/21--continue same. Cannot attempt coadmin with stimulant trial for hypersomnia as contraindicated with MAOI. No medical decompensation that would necessitate referral to medical or seeking court order for ECT. At minimum behaviors are challenging but more appropriate when willing to interact with staff. Need to consider longer term care options given slow progression. 03/02/21--interim care reviewed. Continue EMSAM and Lovenox injection. 03/01/21--Day 9 of Emsam patch. Continuing with behavioral plan to encourage behavioral activation-he was provided with plan with goals of having him come ou t of his room to eat meals, cooperate with repositioning, stand up when his sheets are changed/or if he prefers to stay in bed until the evening then clean sheets can be provided for him to put on the bed or request help putting on the bed in the evening, and continue independently voiding in his bedside urinal, shower can be started for him but he should be encouraged to get into the shower on his own, encourage him to address basic hygiene by continuing to provide him with easy access to his toothbrush, shampoo, etc. 02/28/21--Day 8 of Emsam patch. Now seeing new pattern of daily food intake which is encouraging. Continues to present with regressed behaviors and refusal to interact during the day. 02/27/21--Continue with Emsam patch. Getting out of bed more in the evenings and eating more. Lack of engagement during the day was volitional-pulling blanket over his head after he saw me enter his room. Also becoming more irritable with staff when he is encouraged to do more on his own for behavioral activation. 02/26/21-Continue with Emsam patch. 304 status granted. Ate last night and interacted with staff but no engagement today. 02/25/21--Continues to demonstrate severe depression with neurovegetative symptoms with no engagement with staff. Behavioral plan challenged by finding a reward/incentive that he enjoys. Continuing to encourage behavioral activation. Petitioned for 304 status with hearing scheduled for tomorrow given ongoing symptom burden and need for ongoing treatment. Remains on lovenox for DVT prophylaxis. Continue with Emsam patch. 02/24/21--Remains isolative and will not engage verbally. Encouragingly is attending slightly more to some of his ADLs, will continue with behavioral plan in hopes to continue encouraging behavioral activation although food does not seem to be a good motivator/reward for him. Will continue to think about other possible motivators for him to help encourage increased activity, po intake and engagement with therapeutic milieu. No signs of HTN or other side effects from MAOI at this point. 02/23/21--Continues to demonstrate neurovegetative symptoms of depression, remaining in bed most of the day but sometimes more engagement in the evenings. Will implement behavioral plan to encourage behavioral activation to treat neurovegetative symptoms in conjunction with Emsam as well as to encourage increased participation with ADLs. Nursing to provide him with tools to help him eat and promote good hygiene (brining in meals, supplies to wash up) and then if he does this independently will bring in ice cream or chips as reward to see if this helps with activation and increased po intake. 02/22/21--neurologic work up with EEG and brain MRI unremarkable, continue Emsam trial. 02/21/21--complex differential--depression with psychotic features in a patient with bipolar disorder most likely, certainly not typcial catatonia. No hx of hyperphagia or hypersexuality known that would suggest Kleine-Hess syndrome. Will proceed with Emsam patch 6 mg trial as only means to administer antidepressant. Will check with an ECT facility to determine if can treat patient if pursue a court order (will await emsam trial first). MRI brain (patient will need various x rays first as can't answer screening questions, no hx of pacemaker on chart). bedside EEG to rule out status epilepticus. 02/19/21--non-formulary request for Emsam patch. Hasn't taken antidepressants for at least 6 weeks. Would reconsider current med doses when this becomes available. without antidepressant he will continue to decompensate medically and is at significant risk of further decompensation. 02/17/21--lytes, Bun/Cr improved; given sleep phase shift desirable to shift antipsychotic to pm meal with IM Zyprexa for refusal. Bedside EEG likely poor quality/low yeild but consider if no improvement. 02/16/21--Reviewed care by Dr. Garces in italics. will d/c IM Ativan in favor of Zyprexa IM for failure to take Latuda. Does take Lorazepam prn PO, adjust dose and frequency and monitor use. Will repeat labs and PO intake so variable and hard to track. 02/09/2021--admitted to [facility]. Ativan 2mg SL TID ordered. Track Is&Os. Vitals BID. 02/10/2021--continue with ativan 2mg TID SL. Showing significant improving in catatonic symptoms since ativan trial last night. If he continues to walk around no need for DVT prophylaxis. Will consider if 302 needs to be converted to 303 based on progress today. 02/11/2021--continue with scheduled ativan. Less engagement today but still eating and drinking. Plan for likely 303 given his inability/reluctance to engage in treatment. Reviewed outside records. 02/12/2021--continues to refuse ativan today and won't engage with anyone nor leave his bed except to use the bathroom and to eat at night. Given some movement in the evening and to the bathroom he doesn't require DVT prophylaxis at this time but this remains a concern should he clinically worsen and will continue to monitor his nutritional and medical status closely. 02/13/2021--placed on 303 status due to ongoing decompensation due to catatonia including refusal of medication, not eating, not drinking, not communicating with anyone and lying in bed all day. Once catatonia begins to improve with treatment will aim to start latuda which helped previously. [place] to require medications over objection for ativan to treat catatonia. If catatonia does not respond quickly to ativan then will consider if DVT prophylaxis should be initiated. 02/14/2021--no significant change in behaviors with additional of scheduled at [place] 2 mg BID as medication over objection. Given concern for skin breakdown consult was placed for wound nurse. Given concern for possible DVT and after discussion with hospitalist will begin lovenox 40mg subQ daily. David was able to vocalize consent for this as he remains mute and unable/unwilling to engage but explained the risks, benefits, alternatives and rationale for lovenox and that we will be offering this to him. 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 02/15/2021--Have ruled out catatonia given inconsistent response to ativan trial, multiple observed examples of volitional movement immediately following periods of patient lying in bed and mute. Subsequent catatonia scales have been negative and patient feels that his symptoms represent withdrawn features of anxiety and depression. Given bipolar depression with neurovegetative features will start latuda. Encouragingly he is eating more and drinking more and got out of bed twice last night. Risk Factors Assessment Male: Yes : Yes Do You Have Access To A Gun?: No (in supportive living enviornment, pt unable to answer ) Mental Health Diagnoses: Yes Previous Psychiatric Hospitalization: Yes Protective Factors Assessment Employed: No Interval History Identifying Information 40 yo man with history of catatonia, depression, bipolar disorder vs schizophrenia admitted due to concern for decompensation with failure of self- care at [facility]. Admitted on 302, now 304. Chief Complaint will not interact Review of Systems Sleep Information Total Hours of Sleep: 6.75 Sleep Comments: pt on q-15 minute checks Meal Information Percent Meal Consumed - Breakfast: 0 Percent Meal Consumed - Lunch: 0 Percent Meal Consumed - Dinner: 0 Nutrition Comment: pt alerted that lunch is ready; pt did not respond Subjective Subjective Patient was seen & assessed and interval progress reviewed with nursing and social work. He essentially laid in bed yesterday, poor PO, would not take potassium supplement on multiple attempts. He will change beds/clothes if incontinent, otherwise won't engage to do so. Spit out potassium supplement this am. Sexually inappropriate this am when female staff checking on patient he gyrated hips in air. Physical Exam Psychiatric Apperance: + disheveled Eye Contact: + poor eye contact Motor Behavior: no abnormal motor movements and + psychomotor retardation Speech: + mute Affect: + flat affect Estimated Intelligence: consistent with education level Insight: + severely impaired insight Judgement: + severely impaired judgement Vital Signs (Past 24 Hours) Last Vital Signs Temp 36.2 C L 04/05/21 21:34 Pulse 96 H 04/06/21 06:00 Resp 16 04/06/21 06:00 BP 109/73 04/06/21 06:00 Pulse Ox 94 04/03/21 20:37 Results & Data ([facility]) Current Inpatient Medications Current Inpatient Medications: Current Inpatient Medications Acetaminophen (Acetaminophen 325 Mg Tab) 650 mg PO Q4H PRN PRN Reason: Headache or Minor Fever Stop: 04/10/21 10:27 Last Admin: 03/16/21 10:34 Dose: 325 mg Documented by: Al Hydrox/Mg Hydrox/Simethicone (Aluminum/Magnesium Susp 30 Ml Udc) 30 ml PO Q4H PRN PRN Reason: GI Upset Stop: 04/10/21 10:27 Benztropine Mesylate (Benztropine Mesylate 1 Mg Tab) 1 mg PO Q6 PRN PRN Reason: Muscle Spasm Stop: 05/03/21 08:40 Bismuth Subsalicylate (Bismuth Subsalicylate Liqd 236 Ml) 15 ml PO PRN PRN PRN Reason: Loose Stool Stop: 04/10/21 10:27 Diphenhydramine HCl (Diphenhydramine 50 Mg/Ml Vial) 50 mg IM BID PRN PRN Reason: Agitation Stop: 04/30/21 13:45 Enoxaparin Sodium (Enoxaparin Inj 40 Mg/0.4 Ml Syr) 40 mg SQ DAILY@2100 OG Stop: 05/05/21 20:59 Last Admin: 04/05/21 21:12 Dose: 40 mg Documented by: Haloperidol (Haloperidol 5 Mg Tab) 10 mg PO DAILY@2100 OG Stop: 05/04/21 20:59 Last Admin: 04/05/21 21:16 Dose: Not Given Documented by: Haloperidol Lactate (Haloperidol Lactate 5 Mg/Ml 1 Ml Vial) 5 mg IM BID PRN PRN Reason: Agitation Stop: 04/30/21 13:45 Haloperidol Lactate (Haloperidol Lactate 5 Mg/Ml 1 Ml Vial) 10 mg IM DAILY PRN PRN Reason: for refusal of PO dose Stop: 05/03/21 08:41 Last Admin: 04/05/21 21:15 Dose: 10 mg Documented by: Lorazepam (Lorazepam 1 Mg Tab) 1 mg PO Q6 PRN PRN Reason: Anxiety/Agitation Stop: 04/10/21 08:14 Last Admin: 04/04/21 20:52 Dose: 1 mg Documented by: Lorazepam (Lorazepam 2 Mg/Ml Vial (Im Use)) 2 mg IM BID PRN PRN Reason: Agitation Stop: 04/30/21 13:45 Lorazepam (Lorazepam 1 Mg Tab) 1 mg PO DAILY@2100 OG Stop: 05/04/21 20:59 Last Admin: 04/05/21 21:16 Dose: Not Given Documented by: Lorazepam (Lorazepam 2 Mg/Ml Vial (Im Use)) 1 mg IM DAILY PRN PRN Reason: for refusal of PO dose Stop: 04/28/21 13:29 Last Admin: 04/05/21 21:14 Dose: 1 mg Documented by: Magnesium Hydroxide (Magnesium Hydroxide Susp 30 Ml Udc) 30 ml PO DAILY PRN PRN Reason: Constipation Stop: 04/10/21 10:27 Miscellaneous (Remove Patch Selegiline (Emsam)) 1 ea N/A Q24H OG Stop: 04/10/21 08:58 Last Admin: 04/06/21 09:29 Dose: 1 ea Documented by: Potassium Chloride (Potassium Chloride Pwd 20 Meq Pack) 40 meq PO QAM OG Stop: 05/06/21 08:59 Last Admin: 04/06/21 09:58 Dose: Not Given Documented by: Sodium Chloride (Sodium Chloride 0.65% Na Soln 45 Ml ([place])) 1 - 2 sprays NA PRN PRN PRN Reason: Nasal Dryness/Congestion Stop: 04/10/21 10:27 Mental Health & Subst Abuse Tx Psychiatrist Name of Psychiatrist: Oniel Negron Psychiatrist's Date of Appointment with Psychiatrist: 03/13/21 Time of Appointment with Psychiatrist: 9:20am Psychiatric Appointment Comment: Zoom *is on waiting list for appt. sooner Therapist Name of Therapist: Unknown Student Teaching Coordinator Name of Student Teaching Coordinator: Mauri MATTHEWS) Post Discharge Appointments Primary Care Physician Name Of Family Doctor: Unknown
[2021-04-06] MEDS: HALOPERIDOL LACTATE 5 MG/ML 1 ML VIAL IM PRN (20:52)
[2021-04-06] MEDS: LORazepam 2 MG/ML VIAL (IM USE) IM PRN (20:52)
[2021-04-06] MEDS: LORazepam 1 MG TAB PO SCH (20:53)
[2021-04-06] MEDS: haloperidoL 5 MG TAB PO SCH (20:53)
[2021-04-06] MEDS: ENOXAPARIN INJ 40 MG/0.4 ML SYR SQ SCH (21:19)
[2021-04-07] MEDS: [UNRECOGNIZED DRUG - REMARK] SCH (08:13)
[2021-04-07] MEDS: POTASSIUM CHLORIDE PWD 20 MEQ PACK PO SCH (08:21)
[2021-04-07 08:33] LABS: Albumin Level 3.2 gm/dl (3.4-5.0); BUN Creatinine Ratio 9.8 (10-20); Calcium 8.8 mg/dl (8.5-10.1); Creatinine Clr Calc Pharmacy 135.7 ml/min; Est GFR (African American) 120.2 ml/min; Est GFR (Non-African American) 103.7 ml/min; Magnesium 2.1 mg/dl (1.8-2.4); Potassium 3.2 mmol/L (3.5-5.1)
[2021-04-07 08:39] LABS: Albumin Globulin Ratio 1.1 (0.9-2); Bilirubin,Total 0.7 mg/dl (0.2-1); Globulin 2.9 gm/dl (2.5-4.0); Phosphorus 3.3 mg/dl (2.5-4.9); Prealbumin 26.5 mg/dl (20-40); Total Protein 6.1 gm/dl (6.4-8.2)
--- NOTE | 2021-04-07 13:26 | Psychiatric Progress Note ---
Date of Service April 07, 2021 Impression / Recommendations Impression The patient is a 40 year old with a history of schizoaffective disorder vs bipolar depression who was admitted for failure of self-care and worsening decompensation at [facility]. The patient is deemed unstable and requires psychiatric hospitalization for diagnostic clarification, safety and stabilization, medication management and development of further coping skills. Initially focussed on Ativan dosing for catatonia but no consistent response to meds over objection. Patient seemed worse on Zyprexa, very poor PO. Started Emsam (MAOI patch on 02/21/21). He has been receiving Ativan intermittently over objection and now Haldol with no sustained benefit and little evidence of ongoing catatonia. Patient's mutism and severe amotivation initially felt to be catatonia due to depression with psychosis, nl neuro work up, now seems more severe negative symptoms (abulia, amotivation, avolition) due to psychosis (though seems less active on antipsychotic medications) and less likely primary abulia vs. akinetic mutism. The patient has failed transdermal and IM medications and is in need of ECT in attempt to restore some quality of life in an only 40 yo male who is referred to the [facility], at least to improve to the point he will take PO medications so more options. 04/07/21: limited PO, remains hypokalemic but overall labs stable Plan: 2nd opinion re: court order for ECT requested. Dr. Garces to resume care of patient 04/08/21. (1) Schizoaffective disorder: Risk Factors Assessment Male: Yes : Yes Do You Have Access To A Gun?: No (in supportive living enviornment, pt unable to answer ) Mental Health Diagnoses: Yes Previous Psychiatric Hospitalization: Yes Protective Factors Assessment Employed: No Interval History Identifying Information 40 yo man with history of catatonia, depression, bipolar disorder vs schizophrenia admitted due to concern for decompensation with failure of self- care at [facility]. Admitted on 302, now 304. Chief Complaint poor PO Review of Systems Sleep Information Total Hours of Sleep: 6.5 Sleep Comments: pt on q-15 minute checks Meal Information Percent Meal Consumed - Breakfast: 0 Percent Meal Consumed - Lunch: 0 Percent Meal Consumed - Dinner: 0 Nutrition Comment: fluids and a banana at bedside Subjective Subjective Patient was seen & assessed and interval progress reviewed with nursing and social work. Still very resistant to staff interventions and irritable with direct questioning (if he does answer). He came out of room without a shirt last pm but did eat grilled cheese and take some fluids. Made odd statements about us "putting a bandaid on him", likely referring to am bloodwork which I attempted to review with patient. Physical Exam Psychiatric patient uncooperative, alert but covers head with blanket, everts gaze, will not answer questions. affect remains very flat. no apparent EPS. Vital Signs (Past 24 Hours) Last Vital Signs Temp 36.9 C 04/06/21 20:00 Pulse 79 04/07/21 06:00 Resp 16 04/07/21 06:00 BP 121/80 04/07/21 06:00 Pulse Ox 94 04/03/21 20:37 Results & Data ([facility]) Laboratory Results Laboratory Results - last 24 hr 04/07/21 08:02 Sodium 140 Potassium 3.2 L Chloride 107 Carbon Dioxide 26 Anion Gap 8.0 BUN 9 Creatinine 0.92 Est Cr Clr Drug Dosing 135.7 Est GFR ( Amer) 120.2 Est GFR (Non-Af Amer) 103.7 BUN/Creatinine Ratio 9.8 L Glucose 117 H Calcium 8.8 Phosphorus 3.3 Magnesium 2.1 Total Bilirubin 0.7 AST 38 H ALT 95 H Alkaline Phosphatase 104 Total Protein 6.1 L Albumin 3.2 L Globulin 2.9 Albumin/Globulin Ratio 1.1 Prealbumin 26.5 Current Inpatient Medications Current Inpatient Medications: Current Inpatient Medications Acetaminophen (Acetaminophen 325 Mg Tab) 650 mg PO Q4H PRN PRN Reason: Headache or Minor Fever Stop: 04/10/21 10:27 Last Admin: 03/16/21 10:34 Dose: 325 mg Documented by: Al Hydrox/Mg Hydrox/Simethicone (Aluminum/Magnesium Susp 30 Ml Udc) 30 ml PO Q4H PRN PRN Reason: GI Upset Stop: 04/10/21 10:27 Benztropine Mesylate (Benztropine Mesylate 1 Mg Tab) 1 mg PO Q6 PRN PRN Reason: Muscle Spasm Stop: 05/03/21 08:40 Bismuth Subsalicylate (Bismuth Subsalicylate Liqd 236 Ml) 15 ml PO PRN PRN PRN Reason: Loose Stool Stop: 04/10/21 10:27 Diphenhydramine HCl (Diphenhydramine 50 Mg/Ml Vial) 50 mg IM BID PRN PRN Reason: Agitation Stop: 04/30/21 13:45 Enoxaparin Sodium (Enoxaparin Inj 40 Mg/0.4 Ml Syr) 40 mg SQ DAILY@2100 OG Stop: 05/05/21 20:59 Last Admin: 04/06/21 21:19 Dose: 40 mg Documented by: Haloperidol (Haloperidol 5 Mg Tab) 10 mg PO DAILY@2099 OG Stop: 05/04/21 20:59 Last Admin: 04/06/21 20:53 Dose: Not Given Documented by: Haloperidol Lactate (Haloperidol Lactate 5 Mg/Ml 1 Ml Vial) 5 mg IM BID PRN PRN Reason: Agitation Stop: 04/30/21 13:45 Haloperidol Lactate (Haloperidol Lactate 5 Mg/Ml 1 Ml Vial) 10 mg IM DAILY PRN PRN Reason: for refusal of PO dose Stop: 05/03/21 08:41 Last Admin: 04/06/21 20:52 Dose: 10 mg Documented by: Lorazepam (Lorazepam 1 Mg Tab) 1 mg PO Q6 PRN PRN Reason: Anxiety/Agitation Stop: 04/10/21 08:14 Last Admin: 04/04/21 20:52 Dose: 1 mg Documented by: Lorazepam (Lorazepam 2 Mg/Ml Vial (Im Use)) 2 mg IM BID PRN PRN Reason: Agitation Stop: 04/30/21 13:45 Lorazepam (Lorazepam 1 Mg Tab) 1 mg PO DAILY@2099 OG Stop: 05/04/21 20:59 Last Admin: 04/06/21 20:53 Dose: Not Given Documented by: Lorazepam (Lorazepam 2 Mg/Ml Vial (Im Use)) 1 mg IM DAILY PRN PRN Reason: for refusal of PO dose Stop: 04/28/21 13:29 Last Admin: 04/06/21 20:52 Dose: 1 mg Documented by: Magnesium Hydroxide (Magnesium Hydroxide Susp 30 Ml Udc) 30 ml PO DAILY PRN PRN Reason: Constipation Stop: 04/10/21 10:27 Potassium Chloride (Potassium Chloride Pwd 20 Meq Pack) 40 meq PO QAM OG Stop: 05/06/21 08:59 Last Admin: 04/07/21 08:21 Dose: Not Given Documented by: Sodium Chloride (Sodium Chloride 0.65% Na Soln 45 Ml (Fannin)) 1 - 2 sprays NA PRN PRN PRN Reason: Nasal Dryness/Congestion Stop: 04/10/21 10:27 Mental Health & Subst Abuse Tx Psychiatrist Name of Psychiatrist: Oniel Negron Psychiatrist's Date of Appointment with Psychiatrist: 03/13/21 Time of Appointment with Psychiatrist: 9:20am Psychiatric Appointment Comment: Zoom *is on waiting list for appt. sooner Therapist Name of Therapist: Unknown As[employer] Name of Assembler Engine: Mauri ([facility]) Post Discharge Appointments Primary Care Physician Name Of Family Doctor: Unknown
[2021-04-07] MEDS: LORazepam 1 MG TAB PO SCH (21:24)
[2021-04-07] MEDS: haloperidoL 5 MG TAB PO SCH (21:24)
[2021-04-07] MEDS: LORazepam 2 MG/ML VIAL (IM USE) IM PRN (21:30)
[2021-04-07] MEDS: HALOPERIDOL LACTATE 5 MG/ML 1 ML VIAL IM PRN (21:31)
[2021-04-07] MEDS: ENOXAPARIN INJ 40 MG/0.4 ML SYR SQ SCH (21:31)
[2021-04-08] MEDS: POTASSIUM CHLORIDE PWD 20 MEQ PACK PO SCH ×2 (08:43→09:43)
--- NOTE | 2021-04-08 11:47 | Psychiatric Progress Note ---
Date of Service April 08, 2021 Impression / Recommendations Impression The patient is a 40 year old with a history of schizoaffective disorder vs bipolar depression who was admitted for failure of self-care and worsening decompensation at alf. The patient is deemed unstable and requires psychiatric hospitalization for diagnostic clarification, safety and stabilization, medication management and development of further coping skills. Initially focussed on Ativan dosing for catatonia but no consistent response to meds over objection. Patient seemed worse on Zyprexa, very poor PO. Started Emsam (MAOI patch on 02/21/21). He has been receiving Ativan intermittently over objection and now Haldol with no sustained benefit and little evidence of ongoing catatonia. Emsam patch was discontinued on 04/05/21 due to no significant benefit and potential risks. At this point aDvid has been trialed on multiple medications including lorazpeam, haldol, olanzapine, Emsam patch as well as attempts to trial po medications including a stimulant which he refused. He continues to present with significant neurovegetative symptoms and avolition suspected to be due to BPAD depressive episode vs MDD vs schizoaffective disorder. Given limited efficacy from all the above medication trials, and his refusal to allow any po medication trials, I feel court ordered ECT is an appropriate and necessary next step in terms of treatment. There is significant evidence for the efficacy of ECT in treating depression for both MDD and bipolar depression as well as strong evidence to support it's use for treatment resistant cases for schizoaffective disorder. His ongoing poor nutritional intake with periods of electrolyte abnormalities, weight loss, lack of movement with potential for ongoing muscle weakness/wasting as well as increased risk for DVT, lack of self- care/consequences of poor hygiene and lack of improvement from multiple medication trials are all reasons to pursue ECT at this time. 04/08/21: limited PO, remains isolative with limited engagement, continues to have prominent neurovegetative symptoms and avolition. Plan: reviewed interim notes from Dr. Arevalo, agree that court-ordered ECT is necessary at this point. (1) Schizoaffective disorder: 04/08/21: continue haldol 10mg po or IM and ativan po or IM. Took potassium supplementation in juice yesterday will recheck labs in a few days. Agree with plan to pursue court order for ECT given non-responsiveness to other medication trials so far and his refusal to consistently take any po medication options. 04/07/21: limited PO, remains hypokalemic but overall labs stable 04/06/21: repeat labs in am, consider medicine consult (currently no acute indication for transfer), previous experience was he was less active when prescribed Zyprexa so monitor risks/benefits of Haldol. 04/05/21: attempt to replete K again, Discontinue Emsam patch, pursue court order for ECT when offices reopen after hol. Continue IM Haldol with Ativan trial for now. 04/04/21: Haldol increased to 10 mg PO or IM yesterday with no change overnight, will shift to pm. Will d/c Emsam patch after tomorrow's dose as no sustained benefit and will need to pursue court order for ECT after holiday weekend. 03/31/21: increase haldol to 5 mg po or IM and ativan 1mg po or IM. Continue Emsam patch. 03/30/21: continue haldol 2.5 mg po or IM and ativan 1mg po or IM. Continue Emsam patch. Walked three laps around the unit with encouragement today. 03/29/21: Starting haldol 2.5 mg po or IM and ativan 1mg po or IM for suspected psychosis with negativism, lack of personal care, thought blocking/negative sx and avolition. Continue Emsam patch. Discontinued modafinil. 03/28/21: continue to offer medications. Gave ativan 1mg IM x1 last night after additional episode of spitting. Repeat labwork today showing improvement in nutritional status (albumin and total protein now normal and BUN/CR wnl). 03/27/21: continue to offer medications, he continues to refuse. Continuing to explore ways to involve his extended family or other aspects of care which could incentive his engagement in care. May need to consider if a less sedating antipsychotic medication should be re-trialed. Referral for [facility] has been accepted. 03/26/21: continue current medications, refused modafinil but will try again over next few days. Continue with ativan 1mg BIDM po 03/25/21: start modafinil 50 mg qAM, will monitor carefully for any interactions with MAOI. Discontinued ativan IM for refusal of po. Reducing ativan dosing from TID po to BID po in the afternoon to avoid combining morning stimulant with morning benzo as this would be counterproductive to stimulant trial. 03/24/21: continue current medications. 03/23/21: labwork done today and reviewed no significant changes from prior labwork, still has elevated Cl. Continue with lovenox, emsam patch, and ativan 1 mg po TID (with BID IM for refusal) 03/22/21: labs in am and resume Lovenox given regression past 3 days. 03/18/21: unable to care for self outside of hospital, continue Emsam patch, will not increase as I do not believe he can follow appropriate dietary restrictions at higher doses. 03/17/21: Ativan 1 mg PO TID (inject up to BID for refusal). 03/16/21: resume IM Ativan for refusal of PO Ativan. 03/15/21: Continue current medications. Making referral to [facility] given slow progression and he is still very far from his baseline which will require extended treatment and thus he will be best served by a longer term treatment approach. 03/14/21: Continue with current medications. Reviewed labwork, K+ improved but still signs of poor nutrition. Elevated ALT could be side effect from Emsam patch (occurs in <1/100 - 05/999 pts), will continue to monitor. may be able to consider transition to a po medication if he remains consistent with accepting po medications but for now Emsam patch benefit is felt to outweigh risk of slight ALT elevation. 03/13/21: Continue with current medications. Supports from [place] will visit tomorrow. Labwork CMP tomorrow morning to ensure correction of hypokalemia. 03/12/21: Continue with current medications. Discussed with treatment team having his alf supports come for a visit and they will visit on . Reviewed his interactions with staff during evening hours/overnight in the chart and continues to show progress with engagement. 03/11/21: Continue with ativan 1 mg BID po, canceled IM as he is agreeing to voluntary po. Given steady improvement over the last 1 week consistent with expected timeline for symptom improvement from Emsam patch he may no longer need longer term care option if improvement persists at this rate. If progress stalls or regression occurs then will reconsider if longer term option for treatment is required. 03/10/21: Reduce ativan to 1 mg BID due to dizziness, low BP and possible fall yesterday. Will discontinue lovenox per his request and since he is now consistently moving around throughout the day and at night, discussed risk of blood clots if he doesn't continue to move around and ambulate frequently which he vocalized understanding of and agreement with. Given improvement in nutritional intake will hold off on rechecking labwork for now, will get repeat labs in 1 week on 03/14. 03/09/21: Reviewed interim progress. Continue Emsam patch and ativan 2mg BID trial-will monitor for excessive sedation. 03/08/21: Ativan 2 mg BID trial. 03/07/21: patient seen by neurology, appreciate input, seems severe vegetative s ymptoms due to depression though last few doses of Ativan have been more effective than previous. Continue Ativan 1 mg po BID (IM for refusal). Attempt to replete K with powder dissolved in juice. 03/04/21: will explore personal prison as concerns he will not improve to point he can make meals/meet requirements to return to [facility] during this stay. 03/03/21--continue same. Cannot attempt coadmin with stimulant trial for hypersomnia as contraindicated with MAOI. No medical decompensation that would necessitate referral to medical or seeking court order for ECT. At minimum behaviors are challenging but more appropriate when willing to interact with staff. Need to consider longer term care options given slow progression. 03/02/21--interim care reviewed. Continue EMSAM and Lovenox injection. 03/01/21--Day 9 of Emsam patch. Continuing with behavioral plan to encourage behavioral activation-he was provided with plan with goals of having him come out of his room to eat meals, cooperate with repositioning, stand up when his sheets are changed/or if he prefers to stay in bed until the evening then clean sheets can be provided for him to put on the bed or request help putting on the bed in the evening, and continue independently voiding in his bedside urinal, shower can be started for him but he should be encouraged to get into the shower on his own, encourage him to address basic hygiene by continuing to provide him with easy access to his toothbrush, shampoo, etc. 02/28/21--Day 8 of Emsam patch. Now seeing new pattern of daily food intake which is encouraging. Continues to present with regressed behaviors and refusal to interact during the day. 02/27/21--Continue with Emsam patch. Getting out of bed more in the evenings and eating more. Lack of engagement during the day was volitional-pulling blanket over his head after he saw me enter his room. Also becoming more irritable with staff when he is encouraged to do more on his own for behavioral activation. 02/26/21-Continue with Emsam patch. 304 status granted. Ate last night and interacted with staff but no engagement today. 02/25/21--Continues to demonstrate severe depression with neurovegetative symptoms with no engagement with staff. Behavioral plan challenged by finding a reward/incentive that he enjoys. Continuing to encourage behavioral activation. Petitioned for 304 status with hearing scheduled for tomorrow given ongoing symptom burden and need for ongoing treatment. Remains on lovenox for DVT prophylaxis. Continue with Emsam patch. 02/24/21--Remains isolative and will not engage verbally. Encouragingly is attending slightly more to some of his ADLs, will continue with behavioral plan in hopes to continue encouraging behavioral activation although food does not seem to be a good motivator/reward for him. Will continue to think about other possible motivators for him to help encourage increased activity, po intake and engagement with therapeutic milieu. No signs of HTN or other side effects from MAOI at this point. 02/23/21--Continues to demonstrate neurovegetative symptoms of depression, remaining in bed most of the day but sometimes more engagement in the evenings. Will implement behavioral plan to encourage behavioral activation to treat neurovegetative symptoms in conjunction with Emsam as well as to encourage increased participation with ADLs. Nursing to provide him with tools to help him eat and promote good hygiene (brining in meals, supplies to wash up) and then if he does this independently will bring in ice cream or chips as reward to see if this helps with activation and increased po intake. 02/22/21--neurologic work up with EEG and brain MRI unremarkable, continue Emsam trial. 02/21/21--complex differential--depression with psychotic features in a patient with bipolar disorder most likely, certainly not typcial catatonia. No hx of hyperphagia or hypersexuality known that would suggest Kleine-Hess syndrome. Will proceed with Emsam patch 6 mg trial as only means to administer antidepressant. Will check with an ECT facility to determine if can treat patient if pursue a court order (will await emsam trial first). MRI brain (patient will need various x rays first as can't answer screening questions, no hx of pacemaker on chart). bedside EEG to rule out status epilepticus. 02/19/21--non-formulary request for Emsam patch. Hasn't taken antidepressants for at least 6 weeks. Would reconsider current med doses when this becomes available. without antidepressant he will continue to decompensate medically and is at significant risk of further decompensation. 02/17/21--lytes, Bun/Cr improved; given sleep phase shift desirable to shift antipsychotic to pm meal with IM Zyprexa for refusal. Bedside EEG likely poor quality/low yeild but consider if no improvement. 02/16/21--Reviewed care by Dr. Garces in italics. will d/c IM Ativan in favor of Zyprexa IM for failure to take Latuda. Does take Lorazepam prn PO, adjust dose and frequency and monitor use. Will repeat labs and PO intake so variable and hard to track. 02/09/2021--admitted to [facility]. Ativan 2mg SL TID ordered. Track Is&Os. Vitals BID. 02/10/2021--continue with ativan 2mg TID SL. Showing significant improving in catatonic symptoms since ativan trial last night. If he continues to walk around no need for DVT prophylaxis. Will consider if 302 needs to be converted to 303 based on progress today. 02/11/2021--continue with scheduled ativan. Less engagement today but still eating and drinking. Plan for likely 303 given his inability/reluctance to engage in treatment. Reviewed outside records. 02/12/2021--continues to refuse ativan today and won't engage with anyone nor leave his bed except to use the bathroom and to eat at night. Given some movement in the evening and to the bathroom he doesn't require DVT prophylaxis at this time but this remains a concern should he clinically worsen and will continue to monitor his nutritional and medical status closely. 02/13/2021--placed on 303 status due to ongoing decompensation due to catatonia including refusal of medication, not eating, not drinking, not communicating with anyone and lying in bed all day. Once catatonia begins to improve with treatment will aim to start latuda which helped previously. [place] to require medications over objection for ativan to treat catatonia. If catatonia does not respond quickly to ativan then will consider if DVT prophylaxis should be initiated. 02/14/2021--no significant change in behaviors with additional of scheduled ativan 2 mg BID as medication over objection. Given concern for skin breakdown consult was placed for wound nurse. Given concern for possible DVT and after discussion with hospitalist will begin lovenox 40mg subQ daily. David was able to vocalize consent for this as he remains mute and unable/unwilling to engage but explained the risks, benefits, alternatives and rationale for lovenox and that we will be offering this to him. 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 02/15/2021--Have ruled out catatonia given inconsistent response to ativan trial, multiple observed examples of volitional movement immediately following periods of patient lying in bed and mute. Subsequent catatonia scales have been negative and patient feels that his symptoms represent withdrawn features of anxiety and depression. Given bipolar depression with neurovegetative features will start latuda. Encouragingly he is eating more and drinking more and got out of bed twice last night. Risk Factors Assessment Male: Yes : Yes Do You Have Access To A Gun?: No (in supportive living enviornment, pt unable to answer ) Mental Health Diagnoses: Yes Previous Psychiatric Hospitalization: Yes Protective Factors Assessment Employed: No Interval History Identifying Information 40 yo man with history of catatonia, depression, bipolar disorder vs schizophrenia admitted due to concern for decompensation with failure of self- care at R. Admitted on 302, now 304. Chief Complaint mute Review of Systems Sleep Information Total Hours of Sleep: 7 Sleep Comments: pt on q-15 minute checks Meal Information Percent Meal Consumed - Breakfast: 0 Percent Meal Consumed - Lunch: 0 Percent Meal Consumed - Dinner: 0 Nutrition Comment: fresh fluids; CIB at bedside Subjective Subjective Patient was seen & assessed and interval progress reviewed with treatment team nursing and social work. David continues to be isolative to his bed for almost the entire day, at times will get up briefly to walk into the main room and rarely speaks with staff making usually less then one sentence requests. Did not eat anything last night. Did not urinate in his bed last night. Today David has the sheets pulled over his head and he will not engage with me. Remains mute throughout my attempts to discuss treatment options as well as during my attempts to discuss benign topics such as the weather. Physical Exam Psychiatric Orientation: alert; + uncooperative Apperance: + disheveled Eye Contact: + poor eye contact Motor Behavior: + psychomotor retardation Speech: + mute Affect: + flat affect Cognition: + attention not intact Estimated Intelligence: consistent with education level Insight: + severely impaired insight Judgement: + severely impaired judgement Vital Signs (Past 24 Hours) Last Vital Signs Temp 36.9 C 04/06/21 20:00 Pulse 91 H 04/08/21 06:31 Resp 16 04/08/21 06:31 BP 130/84 04/08/21 06:31 Pulse Ox 94 04/03/21 20:37 Results & Data ([facility]) Current Inpatient Medications Current Inpatient Medications: Current Inpatient Medications Acetaminophen (Acetaminophen 325 Mg Tab) 650 mg PO Q4H PRN PRN Reason: Headache or Minor Fever Stop: 04/10/21 10:27 Last Admin: 03/16/21 10:34 Dose: 325 mg Documented by: Al Hydrox/Mg Hydrox/Simethicone (Aluminum/Magnesium Susp 30 Ml Udc) 30 ml PO Q4H PRN PRN Reason: GI Upset Stop: 04/10/21 10:27 Benztropine Mesylate (Benztropine Mesylate 1 Mg Tab) 1 mg PO Q6 PRN PRN Reason: Muscle Spasm Stop: 05/03/21 08:40 Bismuth Subsalicylate (Bismuth Subsalicylate Liqd 236 Ml) 15 ml PO PRN PRN PRN Reason: Loose Stool Stop: 04/10/21 10:27 Diphenhydramine HCl (Diphenhydramine 50 Mg/Ml Vial) 50 mg IM BID PRN PRN Reason: Agitation Stop: 04/30/21 13:45 Enoxaparin Sodium (Enoxaparin Inj 40 Mg/0.4 Ml Syr) 40 mg SQ DAILY@2100 OG Stop: 05/05/21 20:59 Last Admin: 04/07/21 21:31 Dose: 40 mg Documented by: Haloperidol (Haloperidol 5 Mg Tab) 10 mg PO DAILY@2100 OG Stop: 05/04/21 20:59 Last Admin: 04/07/21 21:24 Dose: Not Given Documented by: Haloperidol Lactate (Haloperidol Lactate 5 Mg/Ml 1 Ml Vial) 5 mg IM BID PRN PRN Reason: Agitation Stop: 04/30/21 13:45 Haloperidol Lactate (Haloperidol Lactate 5 Mg/Ml 1 Ml Vial) 10 mg IM DAILY PRN PRN Reason: for refusal of PO dose Stop: 05/03/21 08:41 Last Admin: 04/07/21 21:31 Dose: 10 mg Documented by: Lorazepam (Lorazepam 1 Mg Tab) 1 mg PO Q6 PRN PRN Reason: Anxiety/Agitation Stop: 04/10/21 08:14 Last Admin: 04/04/21 20:52 Dose: 1 mg Documented by: Lorazepam (Lorazepam 2 Mg/Ml Vial (Im Use)) 2 mg IM BID PRN PRN Reason: Agitation Stop: 04/30/21 13:45 Lorazepam (Lorazepam 1 Mg Tab) 1 mg PO DAILY@2100 OG Stop: 05/04/21 20:59 Last Admin: 04/07/21 21:24 Dose: Not Given Documented by: Lorazepam (Lorazepam 2 Mg/Ml Vial (Im Use)) 1 mg IM DAILY PRN PRN Reason: for refusal of PO dose Stop: 04/28/21 13:29 Last Admin: 04/07/21 21:30 Dose: 1 mg Documented by: Magnesium Hydroxide (Magnesium Hydroxide Susp 30 Ml Udc) 30 ml PO DAILY PRN PRN Reason: Constipation Stop: 04/10/21 10:27 Potassium Chloride (Potassium Chloride Pwd 20 Meq Pack) 40 meq PO QAM OG Stop: 05/06/21 08:59 Last Admin: 04/08/21 09:43 Dose: Not Given Documented by: Sodium Chloride (Sodium Chloride 0.65% Na Soln 45 Ml ([place])) 1 - 2 sprays NA PRN PRN PRN Reason: Nasal Dryness/Congestion Stop: 04/10/21 10:27 Mental Health & Subst Abuse Tx Psychiatrist Name of Psychiatrist: Oniel Negron Psychiatrist's Date of Appointment with Psychiatrist: 03/13/21 Time of Appointment with Psychiatrist: 9:20am Psychiatric Appointment Comment: Zoom *is on waiting list for appt. sooner Therapist Name of Therapist: Unknown Senior Site Manager Name of Senior Site Manager: Mauri ([facility]) Post Discharge Appointments Primary Care Physician Name Of Family Doctor: Unknown
[2021-04-08] MEDS: ENOXAPARIN INJ 40 MG/0.4 ML SYR SQ SCH (20:51)
[2021-04-08] MEDS: haloperidoL 5 MG TAB PO SCH (20:53)
[2021-04-08] MEDS: LORazepam 1 MG TAB PO SCH (20:53)
[2021-04-09] MEDS ORDERED: POTASSIUM CHLORIDE PWD 20 MEQ PACK PO PRN ×2 (08:59→15:42)
[2021-04-09] MEDS: POTASSIUM CHLORIDE PWD 20 MEQ PACK PO SCH (09:04)
--- NOTE | 2021-04-09 15:48 | Psychiatric Progress Note ---
Date of Service April 09, 2021 Impression / Recommendations Impression The patient is a 40 year old with a history of schizoaffective disorder vs bipolar depression who was admitted for failure of self-care and worsening decompensation at [facility]. The patient is deemed unstable and requires psychiatric hospitalization for diagnostic clarification, safety and stabilization, medication management and development of further coping skills. Initially focussed on Ativan dosing for catatonia but no consistent response to meds over objection. Patient seemed worse on Zyprexa, very poor PO. Started Emsam (MAOI patch on 02/21/21). He has been receiving Ativan intermittently over objection and now Haldol with no sustained benefit and little evidence of ongoing catatonia. Emsam patch was discontinued on 04/05/21 due to no significant benefit and potential risks. At this point David has been trialed on multiple medications including lorazpeam, haldol, olanzapine, Emsam patch as well as attempts to trial po medications including a stimulant which he refused. He continues to present with significant neurovegetative symptoms and avolition suspected to be due to BPAD depressive episode vs MDD vs schizoaffective disorder. Given limited efficacy from all the above medication trials, and his refusal to allow any po medication trials, I feel court ordered ECT is an appropriate and necessary next step in terms of treatment. There is significant evidence for the efficacy of ECT in treating depression for both MDD and bipolar depression as well as strong evidence to support it's use for treatment resistant cases for schizoaffective disorder. His ongoing poor nutritional intake with periods of electrolyte abnormalities, weight loss, lack of movement with potential for ongoing muscle weakness/wasting as well as increased risk for DVT, lack of self- care/consequences of poor hygiene and lack of improvement from multiple medication trials are all reasons to pursue ECT at this time. 04/09/21: limited PO, remains isolative with limited engagement, continues to have prominent neurovegetative symptoms and avolition. Did swallow po ativan last evening. Continues to have periods of tachycardia, will continue to monitor and if persists with improving po intake will get repeat EKG. Plan: working on process for court-ordered ECT, changed timing of potassium supplementation to help with adherence to allow it to be offered anytime during the day to optimize likelihood of him agreeing to take it. (1) Schizoaffective disorder: 04/09/21: continue haldol and ativan po or IM. Working on process for consideration for court-ordered ECT. 04/08/21: continue haldol 10mg po or IM and ativan po or IM. Took potassium supplementation in juice yesterday will recheck labs in a few days. Agree with plan to pursue court order for ECT given non-responsiveness to other medication trials so far and his refusal to consistently take any po medication options. 04/07/21: limited PO, remains hypokalemic but overall labs stable 04/06/21: repeat labs in am, consider medicine consult (currently no acute indication for transfer), previous experience was he was less active when prescr ibed Zyprexa so monitor risks/benefits of Haldol. 04/05/21: attempt to replete K again, Discontinue Emsam patch, pursue court order for ECT when offices reopen after hol. Continue IM Haldol with Ativan trial for now. 04/04/21: Haldol increased to 10 mg PO or IM yesterday with no change overnight, will shift to pm. Will d/c Emsam patch after tomorrow's dose as no sustained benefit and will need to pursue court order for ECT after holiday weekend. 03/31/21: increase haldol to 5 mg po or IM and ativan 1mg po or IM. Continue Emsam patch. 03/30/21: continue haldol 2.5 mg po or IM and ativan 1mg po or IM. Continue Emsam patch. Walked three laps around the unit with encouragement today. 03/29/21: Starting haldol 2.5 mg po or IM and ativan 1mg po or IM for suspected psychosis with negativism, lack of personal care, thought blocking/negative sx and avolition. Continue Emsam patch. Discontinued modafinil. 03/28/21: continue to offer medications. Gave ativan 1mg IM x1 last night after additional episode of spitting. Repeat labwork today showing improvement in nutritional status (albumin and total protein now normal and BUN/CR wnl). 03/27/21: continue to offer medications, he continues to refuse. Continuing to explore ways to involve his extended family or other aspects of care which could incentive his engagement in care. May need to consider if a less sedating antipsychotic medication should be re-trialed. [facility] has been [facility]. 03/26/21: continue current medications, refused modafinil but will try again over next few days. Continue with ativan 1mg BIDM po 03/25/21: start modafinil 50 mg qAM, will monitor carefully for any interactions with MAOI. Discontinued ativan IM for refusal of po. Reducing ativan dosing from TID po to BID po in the afternoon to avoid combining morning stimulant with morning benzo as this would be counterproductive to stimulant trial. 03/24/21: continue current medications. 03/23/21: labwork done today and reviewed no significant changes from prior labwork, still has elevated Cl. Continue with lovenox, emsam patch, and ativan 1 mg po TID (with BID IM for refusal) 03/22/21: labs in am and resume Lovenox given regression past 3 days. 03/18/21: unable to care for self outside of hospital, continue Emsam patch, will not increase as I do not believe he can follow appropriate dietary res trictions at higher doses. 03/17/21: Ativan 1 mg PO TID (inject up to BID for refusal). 03/16/21: resume IM Ativan for refusal of PO Ativan. 03/15/21: Continue current medications. Making referral to [facility] given slow progression and he is still very far from his baseline which will require extended treatment and thus he will be best served by a longer term treatment approach. 03/14/21: Continue with current medications. Reviewed labwork, K+ improved but still signs of poor nutrition. Elevated ALT could be side effect from Emsam patch (occurs in <1/100 - 05/999 pts), will continue to monitor. may be able to consider transition to a po medication if he remains consistent with accepting po medications but for now Emsam patch benefit is felt to outweigh risk of slight ALT elevation. 03/13/21: Continue with current medications. Supports from [facility] will visit tomorrow. Labwork CMP tomorrow morning to ensure correction of hypokalemia. 03/12/21: Continue with current medications. Discussed with treatment team having his [facility] supports come for a visit and they will visit on . Reviewed his interactions with staff during evening hours/overnight in the chart and continues to show progress with engagement. 03/11/21: Continue with ativan 1 mg BID po, canceled IM as he is agreeing to voluntary po. Given steady improvement over the last 1 week consistent with expected timeline for symptom improvement from Emsam patch he may no longer need longer term care option if improvement persists at this rate. If progress stalls or regression occurs then will reconsider if longer term option for treatment is required. 03/10/21: Reduce ativan to 1 mg BID due to dizziness, low BP and possible fall yesterday. Will discontinue lovenox per his request and since he is now consistently moving around throughout the day and at night, discussed risk of blood clots if he doesn't continue to move around and ambulate frequently which he vocalized understanding of and agreement with. Given improvement in nutritional intake will hold off on rechecking labwork for now, will get repeat labs in 1 week on 03/14. 03/09/21: Reviewed interim progress. Continue Emsam patch and ativan 2mg BID trial-will monitor for excessive sedation. 03/08/21: Ativan 2 mg BID trial. 03/07/21: patient seen by neurology, appreciate input, seems severe vegetative symptoms due to depression though last few doses of Ativan have been more effective than previous. Continue Ativan 1 mg po BID (IM for refusal). Attempt to replete K with powder dissolved in juice. 03/04/21: will explore personal longterm as concerns he will not improve to point he can make meals/meet requirements to return to [facility] during this stay. 03/03/21--continue same. Cannot attempt coadmin with stimulant trial for hypersomnia as contraindicated with MAOI. No medical decompensation that would necessitate referral to medical or seeking court order for ECT. At minimum behaviors are challenging but more appropriate when willing to interact with staff. Need to consider longer term care options given slow progression. 03/02/21--interim care reviewed. Continue EMSAM and Lovenox injection. 03/01/21--Day 9 of Emsam patch. Continuing with behavioral plan to encourage behavioral activation-he was provided with plan with goals of having him come out of his room to eat meals, cooperate with repositioning, stand up when his sheets are changed/or if he prefers to stay in bed until the evening then clean sheets can be provided for him to put on the bed or request help putting on the bed in the evening, and continue independently voiding in his bedside urinal, shower can be started for him but he should be encouraged to get into the shower on his own, encourage him to address basic hygiene by continuing to provide him with easy access to his toothbrush, shampoo, etc. 02/28/21--Day 8 of Emsam patch. Now seeing new pattern of daily food intake which is encouraging. Continues to present with regressed behaviors and refusal to interact during the day. 02/27/21--Continue with Emsam patch. Getting out of bed more in the evenings and eating more. Lack of engagement during the day was volitional-pulling blanket over his head after he saw me enter his room. Also becoming more irritable with staff when he is encouraged to do more on his own for behavioral activation. 02/26/21-Continue with Emsam patch. 304 status granted. Ate last night and interacted with staff but no engagement today. 02/25/21--Continues to demonstrate severe depression with neurovegetative symptoms with no engagement with staff. Behavioral plan challenged by finding a reward/incentive that he enjoys. Continuing to encourage behavioral activation. Petitioned for 304 status with hearing scheduled for tomorrow given ongoing symptom burden and need for ongoing treatment. Remains on lovenox for DVT prophylaxis. Continue with Emsam patch. 02/24/21--Remains isolative and will not engage verbally. Encouragingly is attending slightly more to some of his ADLs, will continue with behavioral plan in hopes to continue encouraging behavioral activation although food does not seem to be a good motivator/reward for him. Will continue to think about other possible motivators for him to help encourage increased activity, po intake and engagement with therapeutic milieu. No signs of HTN or other side effects from MAOI at this point. 02/23/21--Continues to demonstrate neurovegetative symptoms of depression, remaining in bed most of the day but sometimes more engagement in the evenings. Will implement behavioral plan to encourage behavioral activation to treat neurovegetative symptoms in conjunction with Emsam as well as to encourage increased participation with ADLs. Nursing to provide him with tools to help him eat and promote good hygiene (brining in meals, supplies to wash up) and then if he does this independently will bring in ice cream or chips as reward to see if this helps with activation and increased po intake. 02/22/21--neurologic work up with EEG and brain MRI unremarkable, continue Emsam trial. 02/21/21--complex differential--depression with psychotic features in a patient with bipolar disorder most likely, certainly not typcial catatonia. No hx of hyperphagia or hypersexuality known that would suggest Kleine-Hess syndrome. Will proceed with Emsam patch 6 mg trial as only means to administer antidepressant. Will check with an ECT facility to determine if can treat patient if pursue a court order (will await emsam trial first). MRI brain (patient will need various x rays first as can't answer screening questions, no hx of pacemaker on chart). bedside EEG to rule out status epilepticus. 02/19/21--non-formulary request for Emsam patch. Hasn't taken antidepressants for at least 6 weeks. Would reconsider current med doses when this becomes available. without antidepressant he will continue to decompensate medically and is at significant risk of further decompensation. 02/17/21--lytes, Bun/Cr improved; given sleep phase shift desirable to shift antipsychotic to pm meal with IM Zyprexa for refusal. Bedside EEG likely poor quality/low yeild but consider if no improvement. 02/16/21--Reviewed care by Dr. Garces in italics. will d/c IM Ativan in favor of Zyprexa IM for failure to take Latuda. Does take Lorazepam prn PO, adjust dose and frequency and monitor use. Will repeat labs and PO intake so variable and hard to track. 02/09/2021--admitted to [facility]. Ativan 2mg SL TID ordered. Track Is&Os. Vitals BID. 02/10/2021--continue with ativan 2mg TID SL. Showing significant improving in catatonic symptoms since ativan trial last night. If he continues to walk around no need for DVT prophylaxis. Will consider if 302 needs to be converted to 303 based on progress today. 02/11/2021--continue with scheduled ativan. Less engagement today but still eating and drinking. Plan for likely 303 given his inability/reluctance to engage in treatment. Reviewed outside records. 02/12/2021--continues to refuse ativan today and won't engage with anyone nor leave his bed except to use the bathroom and to eat at night. Given some movement in the evening and to the bathroom he doesn't require DVT prophylaxis at this time but this remains a concern should he clinically worsen and will continue to monitor his nutritional and medical status closely. 02/13/2021--placed on 303 status due to ongoing decompensation due to catatonia including refusal of medication, not eating, not drinking, not communicating with anyone and lying in bed all day. Once catatonia begins to improve with treatment will aim to start latuda which helped previously. [place] to require medications over objection for ativan to treat catatonia. If catatonia does not respond quickly to ativan then will consider if DVT prophylaxis should be initiated. 02/14/2021--no significant change in behaviors with additional of scheduled ativan 2 mg BID as medication over objection. Given concern for skin breakdown consult was placed for wound nurse. Given concern for possible DVT and after discussion with hospitalist will begin lovenox 40mg subQ daily. David was able to vocalize consent for this as he remains mute and unable/unwilling to engage but explained the risks, benefits, alternatives and rationale for lovenox and that we will be offering this to him. 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 02/15/2021--Have ruled out catatonia given inconsistent response to ativan trial, multiple observed examples of volitional movement immediately following periods of patient lying in bed and mute. Subsequent catatonia scales have been negative and patient feels that his symptoms represent withdrawn features of anxiety and depression. Given bipolar depression with neurovegetative features will start latuda. Encouragingly he is eating more and drinking more and got out of bed twice last night. Risk Factors Assessment Male: Yes : Yes Do You Have Access To A Gun?: No (in supportive living enviornment, pt unable to answer ) Mental Health Diagnoses: Yes Previous Psychiatric Hospitalization: Yes Protective Factors Assessment Employed: No Interval History Identifying Information 40 yo man with history of catatonia, depression, bipolar disorder vs schizophrenia admitted due to concern for decompensation with failure of self- care at [facility]. Admitted on 302, now 304. Chief Complaint mute. Review of Systems Sleep Information Total Hours of Sleep: 8.25 Sleep Comments: pt on q-15 minute checks Meal Information Percent Meal Consumed - Breakfast: 0 Percent Meal Consumed - Lunch: 0 Percent Meal Consumed - Dinner: 100 Nutrition Comment: Fresh fluids, banana, and CIB provided at bedside Subjective Subjective Patient was seen & assessed and interval progress reviewed with treatment team nursing and social work. Incontinent of urine yesterday. Last night took medication by mouth and then got up and ate some cereal and drank some fluids. Remains difficult to time offering of potassium powder repletion with times when he will agree to drink fluids. This afternoon had some episodes of spitting similar to previous episodes two weeks ago. Was assessed and appeared to be in no acute distress, was sitting in bed with eyes open, alert but would not communicate and would not take drinks or food offered by nursing. Did allow nursing to clean up the spit and wipe his mouth. Physical Exam Psychiatric Orientation: alert; + uncooperative Apperance: + disheveled Eye Contact: + poor eye contact Motor Behavior: + psychomotor retardation Speech: + mute Affect: + flat affect Cognition: + attention not intact Estimated Intelligence: consistent with education level Insight: + severely impaired insight Judgement: + severely impaired judgement Vital Signs (Past 24 Hours) Last Vital Signs Temp 36.9 C 04/06/21 20:00 Pulse 111 H 04/09/21 06:44 Resp 16 04/09/21 06:44 BP 126/85 04/09/21 06:44 Pulse Ox 94 04/03/21 20:37 Results & Data ([facility]) Current Inpatient Medications Current Inpatient Medications: Current Inpatient Medications Acetaminophen (Acetaminophen 325 Mg Tab) 650 mg PO Q4H PRN PRN Reason: Headache or Minor Fever Stop: 05/11/21 10:27 Last Admin: 03/16/21 10:34 Dose: 325 mg Documented by: Al Hydrox/Mg Hydrox/Simethicone (Aluminum/Magnesium Susp 30 Ml Udc) 30 ml PO Q4H PRN PRN Reason: GI Upset Stop: 05/11/21 10:27 Benztropine Mesylate (Benztropine Mesylate 1 Mg Tab) 1 mg PO Q6 PRN PRN Reason: Muscle Spasm Stop: 05/03/21 08:40 Bismuth Subsalicylate (Bismuth Subsalicylate Liqd 236 Ml) 15 ml PO PRN PRN PRN Reason: Loose Stool Stop: 05/11/21 10:27 Diphenhydramine HCl (Diphenhydramine 50 Mg/Ml Vial) 50 mg IM BID PRN PRN Reason: Agitation Stop: 04/30/21 13:45 Enoxaparin Sodium (Enoxaparin Inj 40 Mg/0.4 Ml Syr) 40 mg SQ DAILY@2099 OG Stop: 05/05/21 20:59 Last Admin: 04/08/21 20:51 Dose: 40 mg Documented by: Haloperidol (Haloperidol 5 Mg Tab) 10 mg PO DAILY@2100 OG Stop: 05/04/21 20:59 Last Admin: 04/08/21 20:53 Dose: 10 mg Documented by: Haloperidol Lactate (Haloperidol Lactate 5 Mg/Ml 1 Ml Vial) 5 mg IM BID PRN PRN Reason: Agitation Stop: 04/30/21 13:45 Haloperidol Lactate (Haloperidol Lactate 5 Mg/Ml 1 Ml Vial) 10 mg IM DAILY PRN PRN Reason: for refusal of PO dose Stop: 05/03/21 08:41 Last Admin: 04/07/21 21:31 Dose: 10 mg Documented by: Lorazepam (Lorazepam 1 Mg Tab) 1 mg PO Q6 PRN PRN Reason: Anxiety/Agitation Stop: 05/11/21 08:14 Last Admin: 04/04/21 20:52 Dose: 1 mg Documented by: Lorazepam (Lorazepam 2 Mg/Ml Vial (Im Use)) 2 mg IM BID PRN PRN Reason: Agitation Stop: 04/30/21 13:45 Lorazepam (Lorazepam 1 Mg Tab) 1 mg PO DAILY@2099 OG Stop: 05/04/21 20:59 Last Admin: 04/08/21 20:53 Dose: 1 mg Documented by: Lorazepam (Lorazepam 2 Mg/Ml Vial (Im Use)) 1 mg IM DAILY PRN PRN Reason: for refusal of PO dose Stop: 04/28/21 13:29 Last Admin: 04/07/21 21:30 Dose: 1 mg Documented by: Magnesium Hydroxide (Magnesium Hydroxide Susp 30 Ml Udc) 30 ml PO DAILY PRN PRN Reason: Constipation Stop: 05/11/21 10:27 Potassium Chloride (Potassium Chloride Pwd 20 Meq Pack) 40 meq PO DAILY PRN PRN Reason: hypokalemia, to be given once a day anytime pt is willing Stop: 05/09/21 08:59 Sodium Chloride (Sodium Chloride 0.65% Na Soln 45 Ml ([place])) 1 - 2 sprays NA PRN PRN PRN Reason: Nasal Dryness/Congestion Stop: 05/11/21 10:27 Mental Health & Subst Abuse Tx Psychiatrist Name of Psychiatrist: Oniel Negron Psychiatrist's Date of Appointment with Psychiatrist: 03/13/21 Time of Appointment with Psychiatrist: 9:20am Psychiatric Appointment Comment: Zoom *is on waiting list for appt. sooner Therapist Name of Therapist: Unknown Graduate Nurse Name of Graduate Nurse: Mauri ([employer]) Post Discharge Appointments Primary Care Physician Name Of Family Doctor: Unknown
[2021-04-09] MEDS: ENOXAPARIN INJ 40 MG/0.4 ML SYR SQ SCH (20:31)
[2021-04-09] MEDS: LORazepam 1 MG TAB PO SCH (20:46)
[2021-04-09] MEDS: haloperidoL 5 MG TAB PO SCH (20:46)
[2021-04-09] MEDS: LORazepam 2 MG/ML VIAL (IM USE) IM PRN (20:50)
[2021-04-09] MEDS: HALOPERIDOL LACTATE 5 MG/ML 1 ML VIAL IM PRN (20:51)
--- NOTE | 2021-04-10 16:42 | Psychiatric Progress Note ---
Date of Service April 10, 2021 Impression / Recommendations Impression The patient is a 40 year old with a history of schizoaffective disorder vs bipolar depression who was admitted for failure of self-care and worsening decompensation at custodial. The patient is deemed unstable and requires psychiatric hospitalization for diagnostic clarification, safety and stabilization, medication management and development of further coping skills. Initially focussed on Ativan dosing for catatonia but no consistent response to meds over objection. Patient seemed worse on Zyprexa, very poor PO. Started Emsam (MAOI patch on 02/21/21). He has been receiving Ativan intermittently over objection and now Haldol with no sustained benefit and little evidence of ongoing catatonia. Emsam patch was discontinued on 04/05/21 due to no significant benefit and potential risks. At this point David has been trialed on multiple medications including lorazpeam, haldol, olanzapine, Emsam patch as well as attempts to trial po medications including a stimulant which he refused. He continues to present with significant neurovegetative symptoms and avolition suspected to be due to BPAD depressive episode vs MDD vs schizoaffective disorder. Given limited efficacy from all the above medication trials, and his refusal to allow any po medication trials, I feel court ordered ECT is an appropriate and necessary next step in terms of treatment. There is significant evidence for the efficacy of ECT in treating depression for both MDD and bipolar depression as well as strong evidence to support it's use for treatment resistant cases for schizoaffective disorder. His ongoing poor nutritional intake with periods of electrolyte abnormalities, weight loss, lack of movement with potential for ongoing muscle weakness/wasting as well as increased risk for DVT, lack of self- care/consequences of poor hygiene and lack of improvement from multiple medication trials are all reasons to pursue ECT at this time. 04/10/21:remains isolative with limited engagement, continues to have prominent neurovegetative symptoms and avolition however today engaged more verbally with multiple staff including on my assessment, showed interest in TV for the first time and ate more food and walked to and from the main room. Vital signs stable and normal today. Plan: met to discuss process for court-ordered ECT, reviewed labwork-potassium improving, copper and ceruloplasmin pending, Vit B12 normal, folate low so will start supplement. (1) Schizoaffective disorder: 04/10/21: Add folate supplement. Potassium level improving. Sent out labs for copper and ceruloplasmin. Engaged verbally with multiple staff and briefly watched movie with peers today. Started process for court-ordered ECT. 04/09/21: continue haldol and ativan po or IM. Working on process for consideration for court-ordered ECT. 04/08/21: continue haldol 10mg po or IM and ativan po or IM. Took potassium supplementation in juice yesterday will recheck labs in a few days. Agree with plan to pursue court order for ECT given non-responsiveness to other medication trials so far and his refusal to consistently take any po medication options. 04/07/21: limited PO, remains hypokalemic but overall labs stable 04/06/21: repeat labs in am, consider medicine consult (currently no acute indication for transfer), previous experience was he was less active when prescribed Zyprexa so monitor risks/benefits of Haldol. 04/05/21: attempt to replete K again, Discontinue Emsam patch, pursue court order for ECT when offices reopen after hol. Continue IM Haldol with Ativan trial for now. 04/04/21: Haldol increased to 10 mg PO or IM yesterday with no change overnight, will shift to pm. Will d/c Emsam patch after tomorrow's dose as no sustained benefit and will need to pursue court order for ECT after holiday weekend. 03/31/21: increase haldol to 5 mg po or IM and ativan 1mg po or IM. Continue Emsam patch. 03/30/21: continue haldol 2.5 mg po or IM and ativan 1mg po or IM. Continue Emsam patch. Walked three laps around the unit with encouragement today. 03/29/21: Starting haldol 2.5 mg po or IM and ativan 1mg po or IM for suspected psychosis with negativism, lack of personal care, thought blocking/negative sx and avolition. Continue Emsam patch. Discontinued modafinil. 03/28/21: continue to offer medications. Gave ativan 1mg IM x1 last night after additional episode of spitting. Repeat labwork today showing improvement in nutritional status (albumin and total protein now normal and BUN/CR wnl). 03/27/21: continue to offer medications, he continues to refuse. Continuing to explore ways to involve his extended family or other aspects of care which could incentive his engagement in care. May need to consider if a less sedating antipsychotic medication should be re-trialed. Referral for [facility] has been accepted. 03/26/21: continue current medications, refused modafinil but will try again over next few days. Continue with ativan 1mg BIDM po 03/25/21: start modafinil 50 mg qAM, will monitor carefully for any interactions with MAOI. Discontinued ativan IM for refusal of po. Reducing ativan dosing from TID po to BID po in the afternoon to avoid combining morning stimulant with morning benzo as this would be counterproductive to stimulant trial. 03/24/21: continue current medications. 03/23/21: labwork done today and reviewed no significant changes from prior labwork, still has elevated Cl. Continue with lovenox, emsam patch, and ativan 1 mg po TID (with BID IM for refusal) 03/22/21: labs in am and resume Lovenox given regression past 3 days. 03/18/21: unable to care for self outside of hospital, continue Emsam patch, will not increase as I do not believe he can follow appropriate dietary restrictions at higher doses. 03/17/21: Ativan 1 mg PO TID (inject up to BID for refusal). 03/16/21: resume IM Ativan for refusal of PO Ativan. 03/15/21: Continue current medications. Making referral to [facility] given slow progression and he is still very far from his baseline which will require extended treatment and thus he will be best served by a longer term treatment approach. 03/14/21: Continue with current medications. Reviewed labwork, K+ improved but still signs of poor nutrition. Elevated ALT could be side effect from Emsam patch (occurs in <1/100 - 05/999 pts), will continue to monitor. may be able to consider transition to a po medication if he remains consistent with accepting po medications but for now Emsam patch benefit is felt to outweigh risk of slight ALT elevation. 03/13/21: Continue with current medications. Supports from [facility] will visit tomorrow. Labwork CMP tomorrow morning to ensure correction of hypokalemia. 03/12/21: Continue with current medications. Discussed with treatment team having his custodial supports come for a visit and they will visit on . Reviewed his interactions with staff during evening hours/overnight in the chart and continues to show progress with engagement. 03/11/21: Continue with ativan 1 mg BID po, canceled IM as he is agreeing to voluntary po. Given steady improvement over the last 1 week consistent with expected timeline for symptom improvement from Emsam patch he may no longer need longer term care option if improvement persists at this rate. If progress stalls or regression occurs then will reconsider if longer term option for treatment is required. 03/10/21: Reduce ativan to 1 mg BID due to dizziness, low BP and possible fall yesterday. Will discontinue lovenox per his request and since he is now consistently moving around throughout the day and at night, discussed risk of blood clots if he doesn't continue to move around and ambulate frequently which he vocalized understanding of and agreement with. Given improvement in nutritional intake will hold off on rechecking labwork for now, will get repeat labs in 1 week on 03/14. 03/09/21: Reviewed interim progress. Continue Emsam patch and ativan 2mg BID trial-will monitor for excessive sedation. 03/08/21: Ativan 2 mg BID trial. 03/07/21: patient seen by neurology, appreciate input, seems severe vegetative symptoms due to depression though last few doses of Ativan have been more effective than previous. Continue Ativan 1 mg po BID (IM for refusal). Attempt to replete K with powder dissolved in juice. 03/04/21: will explore personal mcc as concerns he will not improve to point he can make meals/meet requirements to return to [facility] during this stay. 03/03/21--continue same. Cannot attempt coadmin with stimulant trial for hypersomnia as contraindicated with MAOI. No medical decompensation that would necessitate referral to medical or seeking court order for ECT. At minimum behav iors are challenging but more appropriate when willing to interact with staff. Need to consider longer term care options given slow progression. 03/02/21--interim care reviewed. Continue EMSAM and Lovenox injection. 03/01/21--Day 9 of Emsam patch. Continuing with behavioral plan to encourage behavioral activation-he was provided with plan with goals of having him come out of his room to eat meals, cooperate with repositioning, stand up when his sheets are changed/or if he prefers to stay in bed until the evening then clean sheets can be provided for him to put on the bed or request help putting on the bed in the evening, and continue independently voiding in his bedside urinal, shower can be started for him but he should be encouraged to get into the shower on his own, encourage him to address basic hygiene by continuing to provide him with easy access to his toothbrush, shampoo, etc. 02/28/21--Day 8 of Emsam patch. Now seeing new pattern of daily food intake which is encouraging. Continues to present with regressed behaviors and refusal to interact during the day. 02/27/21--Continue with Emsam patch. Getting out of bed more in the evenings and eating more. Lack of engagement during the day was volitional-pulling blanket over his head after he saw me enter his room. Also becoming more irritable with staff when he is encouraged to do more on his own for behavioral activation. 02/26/21-Continue with Emsam patch. 304 status granted. Ate last night and interacted with staff but no engagement today. 02/25/21--Continues to demonstrate severe depression with neurovegetative symptoms with no engagement with staff. Behavioral plan challenged by finding a reward/incentive that he enjoys. Continuing to encourage behavioral activation. Petitioned for 304 status with hearing scheduled for tomorrow given ongoing symptom burden and need for ongoing treatment. Remains on lovenox for DVT prophylaxis. Continue with Emsam patch. 02/24/21--Remains isolative and will not engage verbally. Encouragingly is attending slightly more to some of his ADLs, will continue with behavioral plan in hopes to continue encouraging behavioral activation although food does not seem to be a good motivator/reward for him. Will continue to think about other possible motivators for him to help encourage increased activity, po intake and engagement with therapeutic milieu. No signs of HTN or other side effects from MAOI at this point. 02/23/21--Continues to demonstrate neurovegetative symptoms of depression, remaining in bed most of the day but sometimes more engagement in the evenings. Will implement behavioral plan to encourage behavioral activation to treat neurovegetative symptoms in conjunction with Emsam as well as to encourage increased participation with ADLs. Nursing to provide him with tools to help him eat and promote good hygiene (brining in meals, supplies to wash up) and then if he does this independently will bring in ice cream or chips as reward to see if this helps with activation and increased po intake. 02/22/21--neurologic work up with EEG and brain MRI unremarkable, continue Emsam trial. 02/21/21--complex differential--depression with psychotic features in a patient with bipolar disorder most likely, certainly not typcial catatonia. No hx of hyperphagia or hypersexuality known that would suggest Kleine-Hess syndrome. Will proceed with Emsam patch 6 mg trial as only means to administer antidepressant. Will check with an ECT facility to determine if can treat patient if pursue a court order (will await emsam trial first). MRI brain (chantel ent will need various x rays first as can't answer screening questions, no hx of pacemaker on chart). bedside EEG to rule out status epilepticus. 02/19/21--non-formulary request for Emsam patch. Hasn't taken antidepressants for at least 6 weeks. Would reconsider current med doses when this becomes available. without antidepressant he will continue to decompensate medically and is at significant risk of further decompensation. 02/17/21--lytes, Bun/Cr improved; given sleep phase shift desirable to shift antipsychotic to pm meal with IM Zyprexa for refusal. Bedside EEG likely poor quality/low yeild but consider if no improvement. 02/16/21--Reviewed care by Dr. Garces in italics. will d/c IM Ativan in favor of Zyprexa IM for failure to take Latuda. Does take Lorazepam prn PO, adjust dose a nd frequency and monitor use. Will repeat labs and PO intake so variable and hard to track. 02/09/2021--admitted to [facility]. Ativan 2mg SL TID ordered. Track Is&Os. Vitals BID. 02/10/2021--continue with ativan 2mg TID SL. Showing significant improving in catatonic symptoms since ativan trial last night. If he continues to walk around no need for DVT prophylaxis. Will consider if 302 needs to be converted to 303 based on progress today. 02/11/2021--continue with scheduled ativan. Less engagement today but still eating and drinking. Plan for likely 303 given his inability/reluctance to engage in treatment. Reviewed outside records. 02/12/2021--continues to refuse ativan today and won't engage with anyone nor leave his bed except to use the bathroom and to eat at night. Given some movement in the evening and to the bathroom he doesn't require DVT prophylaxis at this time but this remains a concern should he clinically worsen and will continue to monitor his nutritional and medical status closely. 02/13/2021--placed on 303 status due to ongoing decompensation due to catatonia including refusal of medication, not eating, not drinking, not communicating with anyone and lying in bed all day. Once catatonia begins to improve with treatment will aim to start latuda which helped previously. [place] to require medications over objection for ativan to treat catatonia. If catatonia does not respond quickly to ativan then will consider if DVT prophylaxis should be initiated. 02/14/2021--no significant change in behaviors with additional of scheduled ativan 2 mg BID as medication over objection. Given concern for skin breakdown consult was placed for wound nurse. Given concern for possible DVT and after discussion with hospitalist will begin lovenox 40mg subQ daily. David was able to vocalize consent for this as he remains mute and unable/unwilling to engage but explained the risks, benefits, alternatives and rationale for lovenox and that we will be offering this to him. 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 02/15/2021--Have ruled out catatonia given inconsistent response to ativan trial, multiple observed examples of volitional movement immediately following periods of patient lying in bed and mute. Subsequent catatonia scales have been negative and patient feels that his symptoms represent withdrawn features of anxiety and depression. Given bipolar depression with neurovegetative features will start latuda. Encouragingly he is eating more and drinking more and got out of bed twice last night. Risk Factors Assessment Male: Yes : Yes Do You Have Access To A Gun?: No (in supportive living enviornment, pt unable to answer ) Mental Health Diagnoses: Yes Previous Psychiatric Hospitalization: Yes Protective Factors Assessment Employed: No Interval History Identifying Information 40 yo man with history of catatonia, depression, bipolar disorder vs schizophrenia admitted due to concern for decompensation with failure of self- care at [facility]. Admitted on 302, now 304. Chief Complaint "Someone mentioned deception this morning, I'm not sure what to make of that". Review of Systems Sleep Information Total Hours of Sleep: 6.75 Sleep Comments: pt on q-15 minute checks Meal Information Percent Meal Consumed - Breakfast: 0 Percent Meal Consumed - Lunch: 0 Percent Meal Consumed - Dinner: 0 Nutrition Comment: pt. was OOB for food in the afternoon; ate a grilled cheese, burger, snacks and several beverages Subjective Subjective Patient was seen & assessed and interval progress reviewed with treatment team nursing and social work. yesterday did not get out of bed nor eat or drink anything. However today in late afternoon got up and ate snacks, a meal, drank liquids and briefly joined other peers to watch a few minutes of a movie. Then spoke with me and stated he felt anxious because he didn't know how long he would need to be in the hospital or what he would do once he left. He could not recall talking to me ever. Discussed the medications he is getting and the side effects. He stated "I always swallow pills" when we discussed the challenge of trying to offer oral medications. He noted some paranoia at one point stating "someone mentioned deception this morning, I'm not sure what to make of that or what that meant". He then would not engage further with me. Physical Exam Psychiatric Orientation: alert Apperance: + disheveled Eye Contact: + fair eye contact Motor Behavior: n EPS and n tremor Speech: normal rate/rhythm/volume of speech Affect: + flat affect Thought Process: + thought blocking Thought Content: + paranoid Hallucinations: no auditory hallucinations and no visual hallucinations Cognition: language grossly intact; + attention not intact Insight: + severely impaired insight Judgement: + limited judgement Vital Signs (Past 24 Hours) Last Vital Signs Temp 36.7 C 04/10/21 06:00 Pulse 87 04/10/21 06:00 Resp 16 04/10/21 06:00 BP 105/71 04/10/21 06:00 Pulse Ox 94 04/03/21 20:37 Results & Data ([facility]) Laboratory Results Laboratory Results - last 24 hr 04/10/21 04/10/21 04/10/21 09:18 09:18 09:18 Potassium 3.4 L Ceruloplasmin Pending Vitamin B12 661 Folate 4.00 L Serum Copper Pending Current Inpatient Medications Current Inpatient Medications: Current Inpatient Medications Acetaminophen (Acetaminophen 325 Mg Tab) 650 mg PO Q4H PRN PRN Reason: Headache or Minor Fever Stop: 05/11/21 10:27 Last Admin: 03/16/21 10:34 Dose: 325 mg Documented by: Al Hydrox/Mg Hydrox/Simethicone (Aluminum/Magnesium Susp 30 Ml Udc) 30 ml PO Q4H PRN PRN Reason: GI Upset Stop: 05/11/21 10:27 Benztropine Mesylate (Benztropine Mesylate 1 Mg Tab) 1 mg PO Q6 PRN PRN Reason: Muscle Spasm Stop: 05/03/21 08:40 Bismuth Subsalicylate (Bismuth Subsalicylate Liqd 236 Ml) 15 ml PO PRN PRN PRN Reason: Loose Stool Stop: 05/11/21 10:27 Diphenhydramine HCl (Diphenhydramine 50 Mg/Ml Vial) 50 mg IM BID PRN PRN Reason: Agitation Stop: 04/30/21 13:45 Enoxaparin Sodium (Enoxaparin Inj 40 Mg/0.4 Ml Syr) 40 mg SQ DAILY@2100 OG Stop: 05/05/21 20:59 Last Admin: 04/09/21 20:31 Dose: 40 mg Documented by: Haloperidol (Haloperidol 5 Mg Tab) 10 mg PO DAILY@2100 OG Stop: 05/04/21 20:59 Last Admin: 04/09/21 20:46 Dose: Not Given Documented by: Haloperidol Lactate (Haloperidol Lactate 5 Mg/Ml 1 Ml Vial) 5 mg IM BID PRN PRN Reason: Agitation Stop: 04/30/21 13:45 Haloperidol Lactate (Haloperidol Lactate 5 Mg/Ml 1 Ml Vial) 10 mg IM DAILY PRN PRN Reason: for refusal of PO dose Stop: 05/03/21 08:41 Last Admin: 04/09/21 20:51 Dose: 10 mg Documented by: Lorazepam (Lorazepam 1 Mg Tab) 1 mg PO Q6 PRN PRN Reason: Anxiety/Agitation Stop: 05/11/21 08:14 Last Admin: 04/04/21 20:52 Dose: 1 mg Documented by: Lorazepam (Lorazepam 2 Mg/Ml Vial (Im Use)) 2 mg IM BID PRN PRN Reason: Agitation Stop: 04/30/21 13:45 Lorazepam (Lorazepam 1 Mg Tab) 1 mg PO DAILY@2100 OG Stop: 05/04/21 20:59 Last Admin: 04/09/21 20:46 Dose: Not Given Documented by: Lorazepam (Lorazepam 2 Mg/Ml Vial (Im Use)) 1 mg IM DAILY PRN PRN Reason: for refusal of PO dose Stop: 04/28/21 13:29 Last Admin: 04/09/21 20:50 Dose: 1 mg Documented by: Magnesium Hydroxide (Magnesium Hydroxide Susp 30 Ml Udc) 30 ml PO DAILY PRN PRN Reason: Constipation Stop: 05/11/21 10:27 Potassium Chloride (Potassium Chloride Pwd 20 Meq Pack) 40 meq PO DAILYBD PRN PRN Reason: hypokalemia, to be given once Stop: 05/09/21 08:58 Sodium Chloride (Sodium Chloride 0.65% Na Soln 45 Ml ([place])) 1 - 2 sprays NA PRN PRN PRN Reason: Nasal Dryness/Congestion Stop: 05/11/21 10:27 Mental Health & Subst Abuse Tx Psychiatrist Name of Psychiatrist: Oniel Negron Psychiatrist's Date of Appointment with Psychiatrist: 03/13/21 Time of Appointment with Psychiatrist: 9:20am Psychiatric Appointment Comment: Zoom *is on waiting list for appt. sooner Therapist Name of Therapist: Unknown Manager Equipment Name of Manager Equipment: Mauri (BSU) Post Discharge Appointments Primary Care Physician Name Of Family Doctor: Unknown
[2021-04-10] MEDS: haloperidoL 5 MG TAB PO SCH (20:44)
[2021-04-10] MEDS: LORazepam 1 MG TAB PO SCH (20:44)
[2021-04-10] MEDS: ENOXAPARIN INJ 40 MG/0.4 ML SYR SQ SCH (20:45)
[2021-04-10] MEDS: FOLIC ACID 1 MG TAB PO SCH (20:45)
--- NOTE | 2021-04-11 16:08 | Psychiatric Progress Note ---
Date of Service April 11, 2021 Impression / Recommendations Impression The patient is a 40 year old with a history of schizoaffective disorder vs bipolar depression who was admitted for failure of self-care and worsening decompensation at [facility]. The patient is deemed unstable and requires psychiatric hospitalization for diagnostic clarification, safety and stabilization, medication management and development of further coping skills. Initially focussed on Ativan dosing for catatonia but no consistent response to meds over objection. Patient seemed worse on Zyprexa, very poor PO. Started Emsam (MAOI patch on 02/21/21). He has been receiving Ativan intermittently over objection and now Haldol with no sustained benefit and little evidence of ongoing catatonia. Emsam patch was discontinued on 04/05/21 due to no significant benefit and potential risks. At this point David has been trialed on multiple medications including lorazpeam, haldol, olanzapine, Emsam patch as well as attempts to trial po medications including a stimulant which he refused. He continues to present with significant neurovegetative symptoms and avolition suspected to be due to BPAD depressive episode vs MDD vs schizoaffective disorder. Given limited efficacy from all the above medication trials, and his refusal to allow any po medication trials, I feel court ordered ECT is an appropriate and necessary next step in terms of treatment. There is significant evidence for the efficacy of ECT in treating depression for both MDD and bipolar depression as well as strong evidence to support it's use for treatment resistant cases for schizoaffective disorder. His ongoing poor nutritional intake with periods of electrolyte abnormalities, weight loss, lack of movement with potential for ongoing muscle weakness/wasting as well as increased risk for DVT, lack of self- care/consequences of poor hygiene and lack of improvement from multiple medication trials are all reasons to pursue ECT at this time. 04/11/21:remains isolative with limited engagement, continues to have prominent neurovegetative symptoms and avolition. Vital signs stable and normal. Plan: placed consult for pre-ECT physical exam (1) Schizoaffective disorder: 04/11/21: continue with haldol and ativan po or IM. Adding mouth checks if he accepts po haldol. Consulted hospitalist for pre-ECT physical exam. He refuses attempts to clip his fingernails. 04/10/21: Add folate supplement. Potassium level improving. Sent out labs for copper and ceruloplasmin. Engaged verbally with multiple staff and briefly watched movie with peers today. Started process for court-ordered ECT. 04/09/21: continue haldol and ativan po or IM. Working on process for consideration for court-ordered ECT. 04/08/21: continue haldol 10mg po or IM and ativan po or IM. Took potassium supplementation in juice yesterday will recheck labs in a few days. Agree with plan to pursue court order for ECT given non-responsiveness to other medication trials so far and his refusal to consistently take any po medication options. 04/07/21: limited PO, remains hypokalemic but overall labs stable 04/06/21: repeat labs in am, consider medicine consult (currently no acute indication for transfer), previous experience was he was less active when prescribed Zyprexa so monitor risks/benefits of Haldol. 04/05/21: attempt to replete K again, Discontinue Emsam patch, pursue court order for ECT when offices reopen after . Continue IM Haldol with Ativan trial for now. 04/04/21: Haldol increased to 10 mg PO or IM yesterday with no change overnight, will shift to pm. Will d/c Emsam patch after tomorrow's dose as no sustained benefit and will need to pursue court order for ECT after holiday weekend. 03/31/21: increase haldol to 5 mg po or IM and ativan 1mg po or IM. Continue Emsam patch. 03/30/21: continue haldol 2.5 mg po or IM and ativan 1mg po or IM. Continue Emsam patch. Walked three laps around the unit with encouragement today. 03/29/21: Starting haldol 2.5 mg po or IM and ativan 1mg po or IM for suspected psychosis with negativism, lack of personal care, thought blocking/negative sx and avolition. Continue Emsam patch. Discontinued modafinil. 03/28/21: continue to offer medications. Gave ativan 1mg IM x1 last night after additional episode of spitting. Repeat labwork today showing improvement in nut ritional status (albumin and total protein now normal and BUN/CR wnl). 03/27/21: continue to offer medications, he continues to refuse. Continuing to explore ways to involve his extended family or other aspects of care which could incentive his engagement in care. May need to consider if a less sedating antipsychotic medication should be re-trialed. Referral for [facility] has been accepted. 03/26/21: continue current medications, refused modafinil but will try again over next few days. Continue with ativan 1mg BIDM po 03/25/21: start modafinil 50 mg qAM, will monitor carefully for any interactions with MAOI. Discontinued ativan IM for refusal of po. Reducing ativan dosing from TID po to BID po in the afternoon to avoid combining morning stimulant with morning benzo as this would be counterproductive to stimulant trial. 03/24/21: continue current medications. 03/23/21: labwork done today and reviewed no significant changes from prior labwork, still has elevated Cl. Continue with lovenox, emsam patch, and ativan 1 mg po TID (with BID IM for refusal) 03/22/21: labs in am and resume Lovenox given regression past 3 days. 03/18/21: unable to care for self outside of hospital, continue Emsam patch, will not increase as I do not believe he can follow appropriate dietary restrictions at higher doses. 03/17/21: Ativan 1 mg PO TID (inject up to BID for refusal). 03/16/21: resume IM Ativan for refusal of PO Ativan. 03/15/21: Continue current medications. Making referral to [facility] given slow progression and he is still very far from his baseline which will require extended treatment and thus he will be best served by a longer term treatment approach. 03/14/21: Continue with current medications. Reviewed labwork, K+ improved but still signs of poor nutrition. Elevated ALT could be side effect from Emsam patch (occurs in <1/100 - 05/999 pts), will continue to monitor. may be able to consider transition to a po medication if he remains consistent with accepting po medications but for now Emsam patch benefit is felt to outweigh risk of slight ALT elevation. 03/13/21: Continue with current medications. Supports from [facility] will visit tomorrow. Labwork CMP tomorrow morning to ensure correction of hypokalemia. 03/12/21: Continue with current medications. Discussed with treatment team having his [facility] supports come for a visit and they will visit on . Reviewed his interactions with staff during evening hours/overnight in the chart and continues to show progress with engagement. 03/11/21: Continue with ativan 1 mg BID po, canceled IM as he is agreeing to voluntary po. Given steady improvement over the last 1 week consistent with expected timeline for symptom improvement from Emsam patch he may no longer need longer term care option if improvement persists at this rate. If progress stalls or regression occurs then will reconsider if longer term option for treatment is required. 03/10/21: Reduce ativan to 1 mg BID due to dizziness, low BP and possible fall yesterday. Will discontinue lovenox per his request and since he is now consistently moving around throughout the day and at night, discussed risk of bl ood clots if he doesn't continue to move around and ambulate frequently which he vocalized understanding of and agreement with. Given improvement in nutritional intake will hold off on rechecking labwork for now, will get repeat labs in 1 week on 03/14. 03/09/21: Reviewed interim progress. Continue Emsam patch and ativan 2mg BID trial-will monitor for excessive sedation. 03/08/21: Ativan 2 mg BID trial. 03/07/21: patient seen by neurology, appreciate input, seems severe vegetative symptoms due to depression though last few doses of Ativan have been more effective than previous. Continue Ativan 1 mg po BID (IM for refusal). Attempt to replete K with powder dissolved in juice. 03/04/21: will explore personal jail as concerns he will not improve to point he can make meals/meet requirements to return to [facility] during this stay. 03/03/21--continue same. Cannot attempt coadmin with stimulant trial for hypersomnia as contraindicated with MAOI. No medical decompensation that would necessitate referral to medical or seeking court order for ECT. At minimum behaviors are challenging but more appropriate when willing to interact with staff. Need to consider longer term care options given slow progression. 03/02/21--interim care reviewed. Continue EMSAM and Lovenox injection. 03/01/21--Day 9 of Emsam patch. Continuing with behavioral plan to encourage behavioral activation-he was provided with plan with goals of having him come out of his room to eat meals, cooperate with repositioning, stand up when his sheets are changed/or if he prefers to stay in bed until the evening then clean sheets can be provided for him to put on the bed or request help putting on the bed in the evening, and continue independently voiding in his bedside urinal, shower can be started for him but he should be encouraged to get into the shower on his own, encourage him to address basic hygiene by continuing to provide him with easy access to his toothbrush, shampoo, etc. 02/28/21--Day 8 of Emsam patch. Now seeing new pattern of daily food intake which is encouraging. Continues to present with regressed behaviors and refusal to interact during the day. 02/27/21--Continue with Emsam patch. Getting out of bed more in the evenings and eating more. Lack of engagement during the day was volitional-pulling blanket over his head after he saw me enter his room. Also becoming more irritable with staff when he is encouraged to do more on his own for behavioral activation. 02/26/21-Continue with Emsam patch. 304 status granted. Ate last night and interacted with staff but no engagement today. 02/25/21--Continues to demonstrate severe depression with neurovegetative symptoms with no engagement with staff. Behavioral plan challenged by finding a reward/incentive that he enjoys. Continuing to encourage behavioral activation. Petitioned for 304 status with hearing scheduled for tomorrow given ongoing symptom burden and need for ongoing treatment. Remains on lovenox for DVT proph ylaxis. Continue with Emsam patch. 02/24/21--Remains isolative and will not engage verbally. Encouragingly is attending slightly more to some of his ADLs, will continue with behavioral plan in hopes to continue encouraging behavioral activation although food does not seem to be a good motivator/reward for him. Will continue to think about other possible motivators for him to help encourage increased activity, po intake and engagement with therapeutic milieu. No signs of HTN or other side effects from MAOI at this point. 02/23/21--Continues to demonstrate neurovegetative symptoms of depression, remaining in bed most of the day but sometimes more engagement in the evenings. Will implement behavioral plan to encourage behavioral activation to treat neurovegetative symptoms in conjunction with Emsam as well as to encourage increased participation with ADLs. Nursing to provide him with tools to help him eat and promote good hygiene (brining in meals, supplies to wash up) and then if he does this independently will bring in ice cream or chips as reward to see if this helps with activation and increased po intake. 02/22/21--neurologic work up with EEG and brain MRI unremarkable, continue Emsam trial. 02/21/21--complex differential--depression with psychotic features in a patient with bipolar disorder most likely, certainly not typcial catatonia. No hx of hyperphagia or hypersexuality known that would suggest Kleine-Hess syndrome. Will proceed with Emsam patch 6 mg trial as only means to administer antidepressant. Will check with an ECT facility to determine if can treat p atient if pursue a court order (will await emsam trial first). MRI brain (patient will need various x rays first as can't answer screening questions, no hx of pacemaker on chart). bedside EEG to rule out status epilepticus. 02/19/21--non-formulary request for Emsam patch. Hasn't taken antidepressants for at least 6 weeks. Would reconsider current med doses when this becomes available. without antidepressant he will continue to decompensate medically and is at significant risk of further decompensation. 02/17/21--lytes, Bun/Cr improved; given sleep phase shift desirable to shift antipsychotic to pm meal with IM Zyprexa for refusal. Bedside EEG likely poor quality/low yeild but consider if no improvement. 02/16/21--Reviewed care by Dr. Garces in italics. will d/c IM Ativan in favor of Zyprexa IM for failure to take Latuda. Does take Lorazepam prn PO, adjust dose and frequency and monitor use. Will repeat labs and PO intake so variable and hard to track. 02/09/2021--admitted to [facility]. Ativan 2mg SL TID ordered. Track Is&Os. Vitals BID. 02/10/2021--continue with ativan 2mg TID SL. Showing significant improving in catatonic symptoms since ativan trial last night. If he continues to walk around no need for DVT prophylaxis. Will consider if 302 needs to be converted to 303 based on progress today. 02/11/2021--continue with scheduled ativan. Less engagement today but still eating and drinking. Plan for likely 303 given his inability/reluctance to engage in treatment. Reviewed outside records. 02/12/2021--continues to refuse ativan today and won't engage with anyone nor leave his bed except to use the bathroom and to eat at night. Given some movement in the evening and to the bathroom he doesn't require DVT prophylaxis at this time but this remains a concern should he clinically worsen and will continue to monitor his nutritional and medical status closely. 02/13/2021--placed on 303 status due to ongoing decompensation due to catatonia including refusal of medication, not eating, not drinking, not communicating with anyone and lying in bed all day. Once catatonia begins to improve with treatment will aim to start latuda which helped previously. [place] to require medications over objection for ativan to treat catatonia. If catatonia does not respond quickly to ativan then will consider if DVT prophylaxis should be initiated. 02/14/2021--no significant change in behaviors with additional of scheduled ativan 2 mg BID as medication over objection. Given concern for skin breakdown consult was placed for wound nurse. Given concern for possible DVT and after discussion with hospitalist will begin lovenox 40mg subQ daily. David was able to vocalize consent for this as he remains mute and unable/unwilling to engage but explained the risks, benefits, alternatives and rationale for lovenox and that we will be offering this to him. 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 02/15/2021--Have ruled out catatonia given inconsistent response to ativan trial, multiple observed examples of volitional movement immediately following periods of patient lying in bed and mute. Subsequent catatonia scales have been negative and patient feels that his symptoms represent withdrawn features of anxiety and depression. Given bipolar depression with neurovegetative features will start latuda. Encouragingly he is eating more and drinking more and got out of bed twice last night. Risk Factors Assessment Male: Yes : Yes Do You Have Access To A Gun?: No (in supportive living enviornment, pt unable to answer ) Mental Health Diagnoses: Yes Previous Psychiatric Hospitalization: Yes Protective Factors Assessment Employed: No Interval History Identifying Information 40 yo man with history of catatonia, depression, bipolar disorder vs schizophre cammie admitted due to concern for decompensation with failure of self-care at [facility]. Admitted on 302, now 304. Chief Complaint mute Review of Systems Sleep Information Total Hours of Sleep: 5.75 Sleep Comments: pt on q-15 minute checks Meal Information Percent Meal Consumed - Breakfast: 0 Percent Meal Consumed - Lunch: 0 Percent Meal Consumed - Dinner: 0 Nutrition Comment: pt. was OOB for food in the afternoon; ate a grilled cheese, burger, snacks and several beverages Subjective Subjective Patient was seen & assessed and interval progress reviewed with treatment team nursing and social work. Today David has been isolative to his room, no verbal engagement with staff. Last night he asked staff about how often he would need to get out of bed to stop being offered his lovenox injection. Today took his medications by mouth but later housekeeping found a partially spit out pill of haldol so he did not take the whole medication. He was mute with the blanket over his head on my multiple attempts to engage with him. He remained mute throughout my attempts to converse with him. Physical Exam Psychiatric Orientation: alert; + uncooperative Apperance: + disheveled Eye Contact: + poor eye contact Motor Behavior: + psychomotor retardation Speech: + mute Affect: + flat affect Cognition: + attention not intact Estimated Intelligence: consistent with education level Insight: + severely impaired insight Judgement: + severely impaired judgement Vital Signs (Past 24 Hours) Last Vital Signs Temp 36.6 C 04/10/21 20:22 Pulse 84 04/11/21 06:00 Resp 18 04/11/21 06:00 BP 116/79 04/11/21 06:00 Pulse Ox 94 04/03/21 20:37 Results & Data ([facility]) Current Inpatient Medications Current Inpatient Medications: Current Inpatient Medications Acetaminophen (Acetaminophen 325 Mg Tab) 650 mg PO Q4H PRN PRN Reason: Headache or Minor Fever Stop: 05/11/21 10:27 Last Admin: 03/16/21 10:34 Dose: 325 mg Documented by: Al Hydrox/Mg Hydrox/Simethicone (Aluminum/Magnesium Susp 30 Ml Udc) 30 ml PO Q4H PRN PRN Reason: GI Upset Stop: 05/11/21 10:27 Benztropine Mesylate (Benztropine Mesylate 1 Mg Tab) 1 mg PO Q6 PRN PRN Reason: Muscle Spasm Stop: 05/03/21 08:40 Bismuth Subsalicylate (Bismuth Subsalicylate Liqd 236 Ml) 15 ml PO PRN PRN PRN Reason: Loose Stool Stop: 05/11/21 10:27 Diphenhydramine HCl (Diphenhydramine 50 Mg/Ml Vial) 50 mg IM BID PRN PRN Reason: Agitation Stop: 04/30/21 13:45 Enoxaparin Sodium (Enoxaparin Inj 40 Mg/0.4 Ml Syr) 40 mg SQ DAILY@2099 [facility] Stop: 05/05/21 20:59 Last Admin: 04/10/21 20:45 Dose: 40 mg Documented by: Folic Acid (Folic Acid 1 Mg Tab) 1 mg PO HS [facility] Stop: 05/10/21 21:59 Last Admin: 04/10/21 20:45 Dose: 1 mg Documented by: Haloperidol (Haloperidol 5 Mg Tab) 10 mg PO DAILY@2099 [facility] Stop: 05/04/21 20:59 Last Admin: 04/10/21 20:44 Dose: 10 mg Documented by: Haloperidol Lactate (Haloperidol Lactate 5 Mg/Ml 1 Ml Vial) 5 mg IM BID PRN PRN Reason: Agitation Stop: 04/30/21 13:45 Haloperidol Lactate (Haloperidol Lactate 5 Mg/Ml 1 Ml Vial) 10 mg IM DAILY PRN PRN Reason: for refusal of PO dose Stop: 05/03/21 08:41 Last Admin: 04/09/21 20:51 Dose: 10 mg Documented by: Lorazepam (Lorazepam 1 Mg Tab) 1 mg PO Q6 PRN PRN Reason: Anxiety/Agitation Stop: 05/11/21 08:14 Last Admin: 04/04/21 20:52 Dose: 1 mg Documented by: Lorazepam (Lorazepam 2 Mg/Ml Vial (Im Use)) 2 mg IM BID PRN PRN Reason: Agitation Stop: 04/30/21 13:45 Lorazepam (Lorazepam 1 Mg Tab) 1 mg PO DAILY@2099 [facility] Stop: 05/04/21 20:59 Last Admin: 04/10/21 20:44 Dose: 1 mg Documented by: Lorazepam (Lorazepam 2 Mg/Ml Vial (Im Use)) 1 mg IM DAILY PRN PRN Reason: for refusal of PO dose Stop: 04/28/21 13:29 Last Admin: 04/09/21 20:50 Dose: 1 mg Documented by: Magnesium Hydroxide (Magnesium Hydroxide Susp 30 Ml Udc) 30 ml PO DAILY PRN PRN Reason: Constipation Stop: 05/11/21 10:27 Potassium Chloride (Potassium Chloride Pwd 20 Meq Pack) 40 meq PO DAILYBD PRN PRN Reason: hypokalemia, to be given once Stop: 05/09/21 08:58 Sodium Chloride (Sodium Chloride 0.65% Na Soln 45 Ml ([place])) 1 - 2 sprays NA PRN PRN PRN Reason: Nasal Dryness/Congestion Stop: 05/11/21 10:27 Mental Health & Subst Abuse Tx Psychiatrist Name of Psychiatrist: Oniel Negron Psychiatrist's Date of Appointment with Psychiatrist: 03/13/21 Time of Appointment with Psychiatrist: 9:20am Psychiatric Appointment Comment: Zoom *is on waiting list for appt. sooner Therapist Name of Therapist: Unknown Chief Business Officer Name of Chief Business Officer: Mauri ([facility]) Post Discharge Appointments Primary Care Physician Name Of Family Doctor: Unknown
[2021-04-11] MEDS: FOLIC ACID 1 MG TAB PO SCH (20:24)
[2021-04-11] MEDS: haloperidoL 5 MG TAB PO SCH (20:24)
[2021-04-11] MEDS: ENOXAPARIN INJ 40 MG/0.4 ML SYR SQ SCH (20:25)
[2021-04-11] MEDS: LORazepam 1 MG TAB PO SCH (20:25)
[2021-04-12 09:55] LABS: Ceruloplasmin 21 mg/dL (18-36); Copper, Serum 68 mcg/dL (70-175)
--- NOTE | 2021-04-12 16:36 | Psychiatric Progress Note ---
Date of Service April 12, 2021 Impression / Recommendations Impression The patient is a 40 year old with a history of schizoaffective disorder vs bipolar depression who was admitted for failure of self-care and worsening decompensation at custodial. The patient is deemed unstable and requires psychiatric hospitalization for diagnostic clarification, safety and stabilization, medication management and development of further coping skills. Initially focussed on Ativan dosing for catatonia but no consistent response to meds over objection. Patient seemed worse on Zyprexa, very poor PO. Started Emsam (MAOI patch on 02/21/21). He has been receiving Ativan intermittently over objection and now Haldol with no sustained benefit and little evidence of ongoing catatonia. Emsam patch was discontinued on 04/05/21 due to no significant benefit and potential risks. At this point David has been trialed on multiple medications including lorazpeam, haldol, olanzapine, Emsam patch as well as attempts to trial po medications including a stimulant which he refused. He continues to present with significant neurovegetative symptoms and avolition suspected to be due to BPAD depressive episode vs MDD vs schizoaffective disorder. Given limited efficacy from all the above medication trials, and his refusal to allow any po medication trials, I feel court ordered ECT is an appropriate and necessary next step in terms of treatment. There is significant evidence for the efficacy of ECT in treating depression for both MDD and bipolar depression as well as strong evidence to support it's use for treatment resistant cases for schizoaffective disorder. His ongoing poor nutritional intake with periods of electrolyte abnormalities, weight loss, lack of movement with potential for ongoing muscle weakness/wasting as well as increased risk for DVT, lack of self- care/consequences of poor hygiene and lack of improvement from multiple medication trials are all reasons to pursue ECT at this time. 04/12/21:remains isolative with limited engagement though yesterday night walked a few laps and took a shower which could be suggest possible mild lessening of paranoia from haldol. Remains very decompensated and in need of ECT. Plan: d iscussed consult for pre-ECT physical exam with hospitalist, reviewed court ECT petition. (1) Schizoaffective disorder: 04/12/21: continue with haldol and ativan. He was provided with legal paperwork regarding filing for ECT. 04/11/21: continue with haldol and ativan po or IM. Adding mouth checks if he accepts po haldol. Consulted hospitalist for pre-ECT physical exam. He refuses attempts to clip his fingernails. 04/10/21: Add folate supplement. Potassium level improving. Sent out labs for copper and ceruloplasmin. Engaged verbally with multiple staff and briefly watched movie with peers today. Started process for court-ordered ECT. 04/09/21: continue haldol and ativan po or IM. Working on process for consideration for court-ordered ECT. 04/08/21: continue haldol 10mg po or IM and ativan po or IM. Took potassium supplementation in juice yesterday will recheck labs in a few days. Agree with plan to pursue court order for ECT given non-responsiveness to other medication trials so far and his refusal to consistently take any po medication options. 04/07/21: limited PO, remains hypokalemic but overall labs stable 04/06/21: repeat labs in am, consider medicine consult (currently no acute indication for transfer), previous experience was he was less active when prescribed Zyprexa so monitor risks/benefits of Haldol. 04/05/21: attempt to replete K again, Discontinue Emsam patch, pursue court order for ECT when offices reopen after hol. Continue IM Haldol with Ativan trial for now. 04/04/21: Haldol increased to 10 mg PO or IM yesterday with no change overnight, will shift to pm. Will d/c Emsam patch after tomorrow's dose as no sustained benefit and will need to pursue court order for ECT after holiday weekend. 03/31/21: increase haldol to 5 mg po or IM and ativan 1mg po or IM. Continue Emsam patch. 03/30/21: continue haldol 2.5 mg po or IM and ativan 1mg po or IM. Continue Emsam patch. Walked three laps around the unit with encouragement today. 03/29/21: Starting haldol 2.5 mg po or IM and ativan 1mg po or IM for suspected psychosis with negativism, lack of personal care, thought blocking/negative sx and avolition. Continue Emsam patch. Discontinued modafinil. 03/28/21: continue to offer medications. Gave ativan 1mg IM x1 last night after additional episode of spitting. Repeat labwork today showing improvement in nutritional status (albumin and total protein now normal and BUN/CR wnl). 03/27/21: continue to offer medications, he continues to refuse. Continuing to explore ways to involve his extended family or other aspects of care which could incentive his engagement in care. May need to consider if a less sedating antipsychotic medication should be re-trialed. Referral for [facility] has been accepted. 03/26/21: continue current medications, refused modafinil but will try again over next few days. Continue with ativan 1mg BIDM po 03/25/21: start modafinil 50 mg qAM, will monitor carefully for any interactions with MAOI. Discontinued ativan IM for refusal of po. Reducing ativan dosing from TID po to BID po in the afternoon to avoid combining morning stimulant with morning benzo as this would be counterproductive to stimulant trial. 03/24/21: continue current medications. 03/23/21: labwork done today and reviewed no significant changes from prior [place], still has elevated Cl. Continue with lovenox, emsam patch, and ativan 1 mg po TID (with BID IM for refusal) 03/22/21: labs in am and resume Lovenox given regression past 3 days. 03/18/21: unable to care for self outside of hospital, continue Emsam patch, will not increase as I do not believe he can follow appropriate dietary restrictions at higher doses. 03/17/21: Ativan 1 mg PO TID (inject up to BID for refusal). 03/16/21: resume IM Ativan for refusal of PO Ativan. 03/15/21: Continue current medications. Making referral to [facility] given slow progression and he is still very far from his baseline which will require extended treatment and thus he will be best served by a longer term treatment approach. 03/14/21: Continue with current medications. Reviewed labwork, K+ improved but still signs of poor nutrition. Elevated ALT could be side effect from Emsam patch (occurs in <1/100 - 05/999 pts), will continue to monitor. may be able to consider transition to a po medication if he remains consistent with accepting po medications but for now Emsam patch benefit is felt to outweigh risk of slight ALT elevation. 03/13/21: Continue with current medications. Supports from [facility] will visit tomorrow. Labwork CMP tomorrow morning to ensure correction of hypokalemia. 03/12/21: Continue with current medications. Discussed with treatment team having his custodial supports come for a visit and they will visit on . Reviewed his interactions with staff during evening hours/overnight in the chart and continues to show progress with engagement. 03/11/21: Continue with ativan 1 mg BID po, canceled IM as he is agreeing to voluntary po. Given steady improvement over the last 1 week consistent with expected timeline for symptom improvement from Emsam patch he may no longer need longer term care option if improvement persists at this rate. If progress stalls or regression occurs then will reconsider if longer term option for treatment is required. 03/10/21: Reduce ativan to 1 mg BID due to dizziness, low BP and possible fall yesterday. Will discontinue lovenox per his request and since he is now consistently moving around throughout the day and at night, discussed risk of blood clots if he doesn't continue to move around and ambulate frequently which he vocalized understanding of and agreement with. Given improvement in nutritional intake will hold off on rechecking labwork for now, will get repeat labs in 1 week on 03/14. 03/09/21: Reviewed interim progress. Continue Emsam patch and ativan 2mg BID trial-will monitor for excessive sedation. 03/08/21: Ativan 2 mg BID trial. 03/07/21: patient seen by neurology, appreciate input, seems severe vegetative symptoms due to depression though last few doses of Ativan have been more effective than previous. Continue Ativan 1 mg po BID (IM for refusal). Attempt to replete K with powder dissolved in juice. 03/04/21: will explore personal custodial as concerns he will not improve to point he can make meals/meet requirements to return to [facility] during this stay. 03/03/21--continue same. Cannot attempt coadmin with stimulant trial for hypersomnia as contraindicated with MAOI. No medical decompensation that would necessitate referral to medical or seeking court order for ECT. At minimum behaviors are challenging but more appropriate when willing to interact with staff. Need to consider longer term care options given slow progression. 03/02/21--interim care reviewed. Continue EMSAM and Lovenox injection. 03/01/21--Day 9 of Emsam patch. Continuing with behavioral plan to encourage behavioral activation-he was provided with plan with goals of having him come out of his room to eat meals, cooperate with repositioning, stand up when his sheets are changed/or if he prefers to stay in bed until the evening then clean sheets can be provided for him to put on the bed or request help putting on the bed in the evening, and continue independently voiding in his bedside urinal, shower can be started for him but he should be encouraged to get into the shower on his own, encourage him to address basic hygiene by continuing to provide him with easy access to his toothbrush, shampoo, etc. 02/28/21--Day 8 of Emsam patch. Now seeing new pattern of daily food intake which is encouraging. Continues to present with regressed behaviors and refusal to interact during the day. 02/27/21--Continue with Emsam patch. Getting out of bed more in the evenings and eating more. Lack of engagement during the day was volitional-pulling blanket over his head after he saw me enter his room. Also becoming more irritable with staff when he is encouraged to do more on his own for behavioral activation. 02/26/21-Continue with Emsam patch. 304 status granted. Ate last night and inte racted with staff but no engagement today. 02/25/21--Continues to demonstrate severe depression with neurovegetative symptoms with no engagement with staff. Behavioral plan challenged by finding a reward/incentive that he enjoys. Continuing to encourage behavioral activation. Petitioned for 304 status with hearing scheduled for tomorrow given ongoing symptom burden and need for ongoing treatment. Remains on lovenox for DVT prophylaxis. Continue with Emsam patch. 02/24/21--Remains isolative and will not engage verbally. Encouragingly is attending slightly more to some of his ADLs, will continue with behavioral plan in hopes to continue encouraging behavioral activation although food does not seem to be a good motivator/reward for him. Will continue to think about other possible motivators for him to help encourage increased activity, po intake and engagement with therapeutic milieu. No signs of HTN or other side effects from MAOI at this point. 02/23/21--Continues to demonstrate neurovegetative symptoms of depression, remaining in bed most of the day but sometimes more engagement in the evenings. Will implement behavioral plan to encourage behavioral activation to treat neur ovegetative symptoms in conjunction with Emsam as well as to encourage increased participation with ADLs. Nursing to provide him with tools to help him eat and promote good hygiene (brining in meals, supplies to wash up) and then if he does this independently will bring in ice cream or chips as reward to see if this helps with activation and increased po intake. 02/22/21--neurologic work up with EEG and brain MRI unremarkable, continue Emsam trial. 02/21/21--complex differential--depression with psychotic features in a patient with bipolar disorder most likely, certainly not typcial catatonia. No hx of hyperphagia or hypersexuality known that would suggest Kleine-Hess syndrome. Will proceed with Emsam patch 6 mg trial as only means to administer antidepressant. Will check with an ECT facility to determine if can treat patient if pursue a court order (will await emsam trial first). MRI brain (patient will need various x rays first as can't answer screening questions, no hx of pacemaker on chart). bedside EEG to rule out status epilepticus. 02/19/21--non-formulary request for Emsam patch. Hasn't taken antidepressants for at least 6 weeks. Would reconsider current med doses when this becomes available. without antidepressant he will continue to decompensate medically and is at significant risk of further decompensation. 02/17/21--lytes, Bun/Cr improved; given sleep phase shift desirable to shift antipsychotic to pm meal with IM Zyprexa for refusal. Bedside EEG likely poor quality/low yeild but consider if no improvement. 02/16/21--Reviewed care by Dr. Garces in italics. will d/c IM Ativan in favor of Zyprexa IM for failure to take Latuda. Does take Lorazepam prn PO, adjust dose and frequency and monitor use. Will repeat labs and PO intake so variable and hard to track. 02/09/2021--admitted to [facility]. Ativan 2mg SL TID ordered. Track Is&Os. Vitals BID. 02/10/2021--continue with ativan 2mg TID SL. Showing significant improving in catatonic symptoms since ativan trial last night. If he continues to walk around no need for DVT prophylaxis. Will consider if 302 needs to be converted to 303 based on progress today. 02/11/2021--continue with scheduled ativan. Less engagement today but still eating and drinking. Plan for likely 303 given his inability/reluctance to engage in treatment. Reviewed outside records. 02/12/2021--continues to refuse ativan today and won't engage with anyone nor leave his bed except to use the bathroom and to eat at night. Given some movement in the evening and to the bathroom he doesn't require DVT prophylaxis at this time but this remains a concern should he clinically worsen and will continue to monitor his nutritional and medical status closely. 02/13/2021--placed on 303 status due to ongoing decompensation due to catatonia including refusal of medication, not eating, not drinking, not communicating with anyone and lying in bed all day. Once catatonia begins to improve with treatment will aim to start latuda which helped previously. [place] to require medications over objection for ativan to treat catatonia. If catatonia does not respond quickly to ativan then will consider if DVT prophylaxis should be i nitiated. 02/14/2021--no significant change in behaviors with additional of scheduled ativan 2 mg BID as medication over objection. Given concern for skin breakdown consult was placed for wound nurse. Given concern for possible DVT and after discussion with hospitalist will begin lovenox 40mg subQ daily. David was able to vocalize consent for this as he remains mute and unable/unwilling to engage but explained the risks, benefits, alternatives and rationale for lovenox and that we will be offering this to him. 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 02/15/2021--Have ruled out catatonia given inconsistent response to ativan trial, multiple observed examples of volitional movement immediately following periods of patient lying in bed and mute. Subsequent catatonia scales have been negative and patient feels that his symptoms represent withdrawn features of anxiety and depression. Given bipolar depression with neurovegetative features will start latuda. Encouragingly he is eating more and drinking more and got out of bed twice last night. Risk Factors Assessment Male: Yes : Yes Do You Have Access To A Gun?: No (in supportive living enviornment, pt unable to answer ) Mental Health Diagnoses: Yes Previous Psychiatric Hospitalization: Yes Protective Factors Assessment Employed: No Interval History Identifying Information 40 yo man with history of catatonia, depression, bipolar disorder vs schizophrenia admitted due to concern for decompensation with failure of self- care at [facility]. Admitted on 302, now 304. Chief Complaint mute Review of Systems Sleep Information Total Hours of Sleep: 5 Sleep Comments: pt remained in bed and appeared to be asleep @0100 and thereafter. pt on q-15 minute checks Meal Information Percent Meal Consumed - Breakfast: 0 Percent Meal Consumed - Lunch: 0 Percent Meal Consumed - Dinner: 100 Nutrition Comment: Patient in room resting, unresponsive to staff. Subjective Subjective Patient was seen & assessed and interval progress reviewed with treatment team nursing and social work. Last night walked a few laps on the unit, accepted oral medications, and asked for towels and took a shower. For rest of time remained isolative and would not engage with staff. Expressed some paranoia about lovenox with staff. Mute with me on multiple attempts to engage. Will not participate with attempts to trim his nails (won't respond to prompts asking him to take his hands out from under the blanket or uncurl his fists). Demonstrating some hip thrusting movements under the blanket during my attempt to engage with him this morning. This afternoon present while community center coordinator served him with legal paperwork regarding court petition for ECT and he was unresponsive during this though allowed me to uncover the blanket from his face and remained staring at ceiling with eyes open. Physical Exam Psychiatric Orientation: alert; + uncooperative Apperance: + disheveled Eye Contact: + poor eye contact Motor Behavior: + psychomotor retardation Speech: + mute Affect: + flat affect Cognition: + attention not intact Estimated Intelligence: consistent with education level Insight: + severely impaired insight Judgement: + severely impaired judgement Vital Signs (Past 24 Hours) Last Vital Signs Temp 36.9 C 04/12/21 09:13 Pulse 86 04/12/21 09:13 Resp 16 04/12/21 09:13 BP 95/57 L 04/12/21 09:13 Pulse Ox 94 04/03/21 20:37 Results & Data ([facility]) Laboratory Results Laboratory Results - last 24 hr 04/10/21 09:18 Ceruloplasmin 21 Serum Copper 68 L Current Inpatient Medications Current Inpatient Medications: Current Inpatient Medications Acetaminophen (Acetaminophen 325 Mg Tab) 650 mg PO Q4H PRN PRN Reason: Headache or Minor Fever Stop: 05/11/21 10:27 Last Admin: 03/16/21 10:34 Dose: 325 mg Documented by: Al Hydrox/Mg Hydrox/Simethicone (Aluminum/Magnesium Susp 30 Ml Udc) 30 ml PO Q4H PRN PRN Reason: GI Upset Stop: 05/11/21 10:27 Benztropine Mesylate (Benztropine Mesylate 1 Mg Tab) 1 mg PO Q6 PRN PRN Reason: Muscle Spasm Stop: 05/03/21 08:40 Bismuth Subsalicylate (Bismuth Subsalicylate Liqd 236 Ml) 15 ml PO PRN PRN PRN Reason: Loose Stool Stop: 05/11/21 10:27 Diphenhydramine HCl (Diphenhydramine 50 Mg/Ml Vial) 50 mg IM BID PRN PRN Reason: Agitation Stop: 04/30/21 13:45 Enoxaparin Sodium (Enoxaparin Inj 40 Mg/0.4 Ml Syr) 40 mg SQ DAILY@2099 [facility] Stop: 05/05/21 20:59 Last Admin: 04/11/21 20:25 Dose: 40 mg Documented by: Folic Acid (Folic Acid 1 Mg Tab) 1 mg PO HS [facility] Stop: 05/10/21 21:59 Last Admin: 04/11/21 20:24 Dose: 1 mg Documented by: Haloperidol (Haloperidol 5 Mg Tab) 10 mg PO DAILY@2100 O[facility] Stop: 05/04/21 20:59 Last Admin: 04/11/21 20:24 Dose: 10 mg Documented by: Haloperidol Lactate (Haloperidol Lactate 5 Mg/Ml 1 Ml Vial) 5 mg IM BID PRN PRN Reason: Agitation Stop: 04/30/21 13:45 Haloperidol Lactate (Haloperidol Lactate 5 Mg/Ml 1 Ml Vial) 10 mg IM DAILY PRN PRN Reason: for refusal of PO dose Stop: 05/03/21 08:41 Last Admin: 04/09/21 20:51 Dose: 10 mg Documented by: Lorazepam (Lorazepam 1 Mg Tab) 1 mg PO Q6 PRN PRN Reason: Anxiety/Agitation Stop: 05/11/21 08:14 Last Admin: 04/04/21 20:52 Dose: 1 mg Documented by: Lorazepam (Lorazepam 2 Mg/Ml Vial (Im Use)) 2 mg IM BID PRN PRN Reason: Agitation Stop: 04/30/21 13:45 Lorazepam (Lorazepam 1 Mg Tab) 1 mg PO DAILY@2100 OG Stop: 05/04/21 20:59 Last Admin: 04/11/21 20:25 Dose: 1 mg Documented by: Lorazepam (Lorazepam 2 Mg/Ml Vial (Im Use)) 1 mg IM DAILY PRN PRN Reason: for refusal of PO dose Stop: 04/28/21 13:29 Last Admin: 04/09/21 20:50 Dose: 1 mg Documented by: Magnesium Hydroxide (Magnesium Hydroxide Susp 30 Ml Udc) 30 ml PO DAILY PRN PRN Reason: Constipation Stop: 05/11/21 10:27 Potassium Chloride (Potassium Chloride Pwd 20 Meq Pack) 40 meq PO DAILYBD PRN PRN Reason: hypokalemia, to be given once Stop: 05/09/21 08:58 Sodium Chloride (Sodium Chloride 0.65% Na Soln 45 Ml ([place])) 1 - 2 sprays NA PRN PRN PRN Reason: Nasal Dryness/Congestion Stop: 05/11/21 10:27 Mental Health & Subst Abuse Tx Psychiatrist Name of Psychiatrist: Oniel Negron Psychiatrist's Date of Appointment with Psychiatrist: 03/13/21 Time of Appointment with Psychiatrist: 9:20am Psychiatric Appointment Comment: Zoom *is on waiting list for appt. sooner Therapist Name of Therapist: Unknown Customer Operations Representative Name of Customer Operations Representative: Mauri ([facility]) Post Discharge Appointments Primary Care Physician Name Of Family Doctor: Unknown
[2021-04-12] MEDS: ENOXAPARIN INJ 40 MG/0.4 ML SYR SQ SCH (20:44)
[2021-04-12] MEDS: haloperidoL 5 MG TAB PO SCH (20:44)
[2021-04-12] MEDS: FOLIC ACID 1 MG TAB PO SCH (20:45)
[2021-04-12] MEDS: LORazepam 1 MG TAB PO SCH (20:46)
--- NOTE | 2021-04-13 12:33 | Psychiatric Progress Note ---
Date of Service April 13, 2021 Impression / Recommendations Impression The patient is a 40 year old with a history of schizoaffective disorder who was admitted for failure of self-care and worsening decompensation at snf. His functioning is poor with inconsistent activity and PO intake despite trials of Ativan, Emsam patch, IM Zyprexa, and now Haldol. He will not take PO meds consistently and is largely mute. Still requiring Lovenox injections. Both inpatient attendings and his outpatient psychiatrist agree that ECT is medically necessary and a court order is being pursued as he is unable to consent. I again notified patient that he has a right to discuss and refuse ECT and he refuses to acknowledge my presence. I agree with Dr. Garces that court ordered ECT is an appropriate and necessary next step in terms of treatment. There is significant evidence for the efficacy of ECT in treating depression for both MDD and bipolar depression as well as strong evidence to support it's use for treatment resistant cases for schizoa ffective disorder. His ongoing poor nutritional intake with periods of electrolyte abnormalities, weight loss, lack of movement with potential for ongoing muscle weakness/wasting as well as increased risk for DVT, lack of self- care/consequences of poor hygiene and lack of improvement from multiple medication trials are all reasons to pursue ECT at this time. 04/13/21:no change Plan: continue current meds pending court order. (1) Schizoaffective disorder: Risk Factors Assessment Male: Yes : Yes Do You Have Access To A Gun?: No (in supportive living enviornment, pt unable to answer ) Mental Health Diagnoses: Yes Previous Psychiatric Hospitalization: Yes Protective Factors Assessment Employed: No Interval History Identifying Information 40 yo man with history of catatonia, depression, bipolar disorder vs schizophrenia admitted due to concern for decompensation with failure of self- care at [facility]. Admitted on 302, now 304. Chief Complaint ongoing avoidance/neagtive symptoms Review of Systems Sleep Information Total Hours of Sleep: 7 Sleep Comments: pt remained in bed and appeared to be asleep @0100 and thereafter. pt on q-15 minute checks Meal Information Percent Meal Consumed - Breakfast: 0 Percent Meal Consumed - Lunch: 0 Percent Meal Consumed - Dinner: 0 Nutrition Comment: Patient in room resting, unresponsive to staff. Subjective Subjective Patient was seen & assessed and interval progress reviewed with nursing and social media executive. Not getting out of bed each shift, irritable when does interact with staff. Took PO meds last pm and ate but after his scheduled meal. Otherwise mute and reclusive. Physical Exam Psychiatric was OOB ambulating in room until I entered he covered self with blanket and refused to speak. Vital Signs (Past 24 Hours) Last Vital Signs Temp 37.0 C 04/12/21 20:38 Pulse 72 04/13/21 06:44 Resp 18 04/13/21 06:44 BP 125/78 04/13/21 06:44 Pulse Ox 94 04/03/21 20:37 Results & Data ([facility]) Current Inpatient Medications Current Inpatient Medications: Current Inpatient Medications Acetaminophen (Acetaminophen 325 Mg Tab) 650 mg PO Q4H PRN PRN Reason: Headache or Minor Fever Stop: 05/11/21 10:27 Last Admin: 03/16/21 10:34 Dose: 325 mg Documented by: Al Hydrox/Mg Hydrox/Simethicone (Aluminum/Magnesium Susp 30 Ml Udc) 30 ml PO Q4H PRN PRN Reason: GI Upset Stop: 05/11/21 10:27 Benztropine Mesylate (Benztropine Mesylate 1 Mg Tab) 1 mg PO Q6 PRN PRN Reason: Muscle Spasm Stop: 05/03/21 08:40 Bismuth Subsalicylate (Bismuth Subsalicylate Liqd 236 Ml) 15 ml PO PRN PRN PRN Reason: Loose Stool Stop: 05/11/21 10:27 Diphenhydramine HCl (Diphenhydramine 50 Mg/Ml Vial) 50 mg IM BID PRN PRN Reason: Agitation Stop: 04/30/21 13:45 Enoxaparin Sodium (Enoxaparin Inj 40 Mg/0.4 Ml Syr) 40 mg SQ DAILY@2099 OG Stop: 05/05/21 20:59 Last Admin: 04/12/21 20:44 Dose: 40 mg Documented by: Folic Acid (Folic Acid 1 Mg Tab) 1 mg PO HS OG Stop: 05/10/21 21:59 Last Admin: 04/12/21 20:45 Dose: 1 mg Documented by: Haloperidol (Haloperidol 5 Mg Tab) 10 mg PO DAILY@2099 OG Stop: 05/04/21 20:59 Last Admin: 04/12/21 20:44 Dose: 10 mg Documented by: Haloperidol Lactate (Haloperidol Lactate 5 Mg/Ml 1 Ml Vial) 5 mg IM BID PRN PRN Reason: Agitation Stop: 04/30/21 13:45 Haloperidol Lactate (Haloperidol Lactate 5 Mg/Ml 1 Ml Vial) 10 mg IM DAILY PRN PRN Reason: for refusal of PO dose Stop: 05/03/21 08:41 Last Admin: 04/09/21 20:51 Dose: 10 mg Documented by: Lorazepam (Lorazepam 1 Mg Tab) 1 mg PO Q6 PRN PRN Reason: Anxiety/Agitation Stop: 05/11/21 08:14 Last Admin: 04/04/21 20:52 Dose: 1 mg Documented by: Lorazepam (Lorazepam 2 Mg/Ml Vial (Im Use)) 2 mg IM BID PRN PRN Reason: Agitation Stop: 04/30/21 13:45 Lorazepam (Lorazepam 1 Mg Tab) 1 mg PO DAILY@2100 OG Stop: 05/04/21 20:59 Last Admin: 04/12/21 20:46 Dose: 1 mg Documented by: Lorazepam (Lorazepam 2 Mg/Ml Vial (Im Use)) 1 mg IM DAILY PRN PRN Reason: for refusal of PO dose Stop: 04/28/21 13:29 Last Admin: 04/09/21 20:50 Dose: 1 mg Documented by: Magnesium Hydroxide (Magnesium Hydroxide Susp 30 Ml Udc) 30 ml PO DAILY PRN PRN Reason: Constipation Stop: 05/11/21 10:27 Potassium Chloride (Potassium Chloride Pwd 20 Meq Pack) 40 meq PO DAILYBD PRN PRN Reason: hypokalemia, to be given once Stop: 05/09/21 08:58 Sodium Chloride (Sodium Chloride 0.65% Na Soln 45 Ml ([facility])) 1 - 2 sprays NA PRN PRN PRN Reason: Nasal Dryness/Congestion Stop: 05/11/21 10:27 Mental Health & Subst Abuse Tx Psychiatrist Name of Psychiatrist: Oniel Negron Psychiatrist's Date of Appointment with Psychiatrist: 03/13/21 Time of Appointment with Psychiatrist: 9:20am Psychiatric Appointment Comment: Zoom *is on waiting list for appt. sooner Therapist Name of Therapist: Unknown Feller Machine Operator Name of Feller Machine Operator: Mauri (BS) Post Discharge Appointments Primary Care Physician Name Of Family Doctor: Unknown
[2021-04-13] MEDS: haloperidoL 5 MG TAB PO SCH (20:47)
[2021-04-13] MEDS: LORazepam 1 MG TAB PO SCH (20:50)
[2021-04-13] MEDS: ENOXAPARIN INJ 40 MG/0.4 ML SYR SQ SCH (21:02)
[2021-04-13] MEDS: FOLIC ACID 1 MG TAB PO SCH (21:06)
[2021-04-14] MEDS: haloperidoL 5 MG TAB PO SCH ×2 (11:37→21:04)
--- NOTE | 2021-04-14 15:10 | Psychiatric Progress Note ---
Date of Service April 14, 2021 Impression / Recommendations Impression The patient is a 40 year old with a history of schizoaffective disorder who was admitted for failure of self-care and worsening decompensation at correction. His functioning is poor with inconsistent activity and PO intake despite trials of Ativan, Emsam patch, IM Zyprexa, and now Haldol. He will not take PO meds consistently and is largely mute. Still requiring Lovenox injections. Both inpatient attendings and his outpatient psychiatrist agree that ECT is medically necessary and a court order is being pursued as he is unable to consent. I again notified patient that he has a right to discuss and refuse ECT and he refuses to acknowledge my presence. I agree with Dr. Garces that court ordered ECT is an appropriate and necessary next step in terms of treatment. There is significant evidence for the efficacy of ECT in treating depression for both MDD and bipolar depression as well as strong evidence to support it's use for treatment resistant cases for schizoa ffective disorder. His ongoing poor nutritional intake with periods of electrolyte abnormalities, weight loss, lack of movement with potential for ongoing muscle weakness/wasting as well as increased risk for DVT, lack of self- care/consequences of poor hygiene and lack of improvement from multiple medication trials are all reasons to pursue ECT at this time. 04/14/21:OOB on consecutive shifts (1) Schizoaffective disorder: 04/13/21: attempt am dose of 5 mg Haldol, continue 10 hs with Ativan. Needs med clearance for ECT. Will hold Lovenox today as some improvement in activity. 04/12/21: continue with haldol and ativan. He was provided with legal paperwork regarding filing for ECT. 04/11/21: continue with haldol and ativan po or IM. Adding mouth checks if he accepts po haldol. Consulted hospitalist for pre-ECT physical exam. He refuses attempts to clip his fingernails. 04/10/21: Add folate supplement. Potassium level improving. Sent out labs for copper and ceruloplasmin. Engaged verbally with multiple staff and briefly watched movie with peers today. Started process for court-ordered ECT. 04/09/21: continue haldol and ativan po or IM. Working on process for consideration for court-ordered ECT. 04/08/21: continue haldol 10mg po or IM and ativan po or IM. Took potassium supplementation in juice yesterday will recheck labs in a few days. Agree with plan to pursue court order for ECT given non-responsiveness to other medication trials so far and his refusal to consistently take any po medication options. 04/07/21: limited PO, remains hypokalemic but overall labs stable 04/06/21: repeat labs in am, consider medicine consult (currently no acute indication for transfer), previous experience was he was less active when prescribed Zyprexa so monitor risks/benefits of Haldol. 04/05/21: attempt to replete K again, Discontinue Emsam patch, pursue court order for ECT when offices reopen after hol. Continue IM Haldol with Ativan trial for now. 04/04/21: Haldol increased to 10 mg PO or IM yesterday with no change overnight, will shift to pm. Will d/c Emsam patch after tomorrow's dose as no sustained benefit and will need to pursue court order for ECT after holiday weekend. 03/31/21: increase haldol to 5 mg po or IM and ativan 1mg po or IM. Continue Emsam patch. 03/30/21: continue haldol 2.5 mg po or IM and ativan 1mg po or IM. Continue Emsam patch. Walked three laps around the unit with encouragement today. 03/29/21: Starting haldol 2.5 mg po or IM and ativan 1mg po or IM for suspected psychosis with negativism, lack of personal care, thought blocking/negative sx and avolition. Continue Emsam patch. Discontinued modafinil. 03/28/21: continue to offer medications. Gave ativan 1mg IM x1 last night after additional episode of spitting. Repeat labwork today showing improvement in nutritional status (albumin and total protein now normal and BUN/CR wnl). 03/27/21: continue to offer medications, he continues to refuse. Continuing to explore ways to involve his extended family or other aspects of care which could incentive his engagement in care. May need to consider if a less sedating antipsychotic medication should be re-trialed. Referral for [facility] has been accepted. 03/26/21: continue current medications, refused modafinil but will try again over next few days. Continue with ativan 1mg BIDM po 03/25/21: start modafinil 50 mg qAM, will monitor carefully for any interactions with MAOI. Discontinued ativan IM for refusal of po. Reducing ativan dosing from TID po to BID po in the afternoon to avoid combining morning stimulant with morning benzo as this would be counterproductive to stimulant trial. 03/24/21: continue current medications. 03/23/21: labwork done today and reviewed no significant changes from prior labwork, still has elevated Cl. Continue with lovenox, emsam patch, and ativan 1 mg po TID (with BID IM for refusal) 03/22/21: labs in am and resume Lovenox given regression past 3 days. 03/18/21: unable to care for self outside of hospital, continue Emsam patch, will not increase as I do not believe he can follow appropriate dietary restrictions at higher doses. 03/17/21: Ativan 1 mg PO TID (inject up to BID for refusal). 03/16/21: resume IM Ativan for refusal of PO Ativan. 03/15/21: Continue current medications. Making referral to [facility] given slow progression and he is still very far from his baseline which will require extended treatment and thus he will be best served by a longer term treatment approach. 03/14/21: Continue with current medications. Reviewed labwork, K+ improved but still signs of poor nutrition. Elevated ALT could be side effect from Emsam patch (occurs in <1/100 - 05/999 pts), will continue to monitor. may be able to consider transition to a po medication if he remains consistent with accepting po medications but for now Emsam patch benefit is felt to outweigh risk of slig ht ALT elevation. 03/13/21: Continue with current medications. Supports from [email or web address] will visit tomorrow. Labwork CMP tomorrow morning to ensure correction of hypokalemia. 03/12/21: Continue with current medications. Discussed with treatment team having his correction supports come for a visit and they will visit on . Reviewed his interactions with staff during evening hours/overnight in the chart and continues to show progress with engagement. 03/11/21: Continue with ativan 1 mg BID po, canceled IM as he is agreeing to voluntary po. Given steady improvement over the last 1 week consistent with expected timeline for symptom improvement from Emsam patch he may no longer need longer term care option if improvement persists at this rate. If progress stalls or regression occurs then will reconsider if longer term option for treatment is required. 03/10/21: Reduce ativan to 1 mg BID due to dizziness, low BP and possible fall yesterday. Will discontinue lovenox per his request and since he is now consistently moving around throughout the day and at night, discussed risk of blood clots if he doesn't continue to move around and ambulate frequently which he vocalized understanding of and agreement with. Given improvement in nutritional intake will hold off on rechecking labwork for now, will get repeat labs in 1 week on 03/14. 03/09/21: Reviewed interim progress. Continue Emsam patch and ativan 2mg BID trial-will monitor for excessive sedation. 03/08/21: Ativan 2 mg BID trial. 03/07/21: patient seen by neurology, appreciate input, seems severe vegetative symptoms due to depression though last few doses of Ativan have been more effective than previous. Continue Ativan 1 mg po BID (IM for refusal). Attempt to replete K with powder dissolved in juice. 03/04/21: will explore personal retirement as concerns he will not improve to point he can make meals/meet requirements to return to [facility] during this stay. 03/03/21--continue same. Cannot attempt coadmin with stimulant trial for hypersomnia as contraindicated with MAOI. No medical decompensation that would necessitate referral to medical or seeking court order for ECT. At minimum behaviors are challenging but more appropriate when willing to interact with staff. Need to consider longer term care options given slow progression. 03/02/21--interim care reviewed. Continue EMSAM and Lovenox injection. 03/01/21--Day 9 of Emsam patch. Continuing with behavioral plan to encourage behavioral activation-he was provided with plan with goals of having him come out of his room to eat meals, cooperate with repositioning, stand up when his sheets are changed/or if he prefers to stay in bed until the evening then clean sheets can be provided for him to put on the bed or request help putting on the bed in the evening, and continue independently voiding in his bedside urinal, shower can be started for him but he should be encouraged to get into the shower on his own, encourage him to address basic hygiene by continuing to provide him with easy access to his toothbrush, shampoo, etc. 02/28/21--Day 8 of Emsam patch. Now seeing new pattern of daily food intake which is encouraging. Continues to present with regressed behaviors and refusal to interact during the day. 02/27/21--Continue with Emsam patch. Getting out of bed more in the evenings and eating more. Lack of engagement during the day was volitional-pulling blanket over his head after he saw me enter his room. Also becoming more irritable with staff when he is encouraged to do more on his own for behavioral activation. 02/26/21-Continue with Emsam patch. 304 status granted. Ate last night and interacted with staff but no engagement today. 02/25/21--Continues to demonstrate severe depression with neurovegetative sympt oms with no engagement with staff. Behavioral plan challenged by finding a reward/incentive that he enjoys. Continuing to encourage behavioral activation. Petitioned for 304 status with hearing scheduled for tomorrow given ongoing symptom burden and need for ongoing treatment. Remains on lovenox for DVT prophylaxis. Continue with Emsam patch. 02/24/21--Remains isolative and will not engage verbally. Encouragingly is attending slightly more to some of his ADLs, will continue with behavioral plan in hopes to continue encouraging behavioral activation although food does not seem to be a good motivator/reward for him. Will continue to think about other possible motivators for him to help encourage increased activity, po intake and engagement with therapeutic milieu. No signs of HTN or other side effects from MAOI at this point. 02/23/21--Continues to demonstrate neurovegetative symptoms of depression, remaining in bed most of the day but sometimes more engagement in the evenings. Will implement behavioral plan to encourage behavioral activation to treat neurovegetative symptoms in conjunction with Emsam as well as to encourage increased participation with ADLs. Nursing to provide him with tools to help him eat and promote good hygiene (brining in meals, supplies to wash up) and then if he does this independently will bring in ice cream or chips as reward to see if this helps with activation and increased po intake. 02/22/21--neurologic work up with EEG and brain MRI unremarkable, continue Emsam trial. 02/21/21--complex differential--depression with psychotic features in a patient with bipolar disorder most likely, certainly not typcial catatonia. No hx of hyperphagia or hypersexuality known that would suggest Kleine-Hess syndrome. Will proceed with Emsam patch 6 mg trial as only means to administer antidepressant. Will check with an ECT facility to determine if can treat patient if pursue a court order (will await emsam trial first). MRI brain (patient will need various x rays first as can't answer screening questions, no hx of pacemaker on chart). bedside EEG to rule out status epilepticus. 02/19/21--non-formulary request for Emsam patch. Hasn't taken antidepressants for at least 6 weeks. Would reconsider current med doses when this becomes available. without antidepressant he will continue to decompensate medically and is at significant risk of further decompensation. 02/17/21--lytes, Bun/Cr improved; given sleep phase shift desirable to shift antipsychotic to pm meal with IM Zyprexa for refusal. Bedside EEG likely poor quality/low yeild but consider if no improvement. 02/16/21--Reviewed care by Dr. Garces in italics. will d/c IM Ativan in favor of Zyprexa IM for failure to take Latuda. Does take Lorazepam prn PO, adjust dose and frequency and monitor use. Will repeat labs and PO intake so variable and hard to track. 02/09/2021--admitted to [facility]. Ativan 2mg SL TID ordered. Track Is&Os. Vitals BID. 02/10/2021--continue with ativan 2mg TID SL. Showing significant improving in catatonic symptoms since ativan trial last night. If he continues to walk around no need for DVT prophylaxis. Will consider if 302 needs to be converted to 303 based on progress today. 02/11/2021--continue with scheduled ativan. Less engagement today but still eating and drinking. Plan for likely 303 given his inability/reluctance to engage in treatment. Reviewed outside records. 02/12/2021--continues to refuse ativan today and won't engage with anyone nor leave his bed except to use the bathroom and to eat at night. Given some movement in the evening and to the bathroom he doesn't require DVT prophylaxis at this time but this remains a concern should he clinically worsen and will continue to monitor his nutritional and medical status closely. 02/13/2021--placed on 303 status due to ongoing decompensation due to catatonia including refusal of medication, not eating, not drinking, not communicating with anyone and lying in bed all day. Once catatonia begins to improve with treatment will aim to start latuda which helped previously. [place]uyler to require medications over objection for ativan to treat catatonia. If catatonia does not respond quickly to ativan then will consider if DVT prophylaxis should be initiated. 02/14/2021--no significant change in behaviors with additional of scheduled ativan 2 mg BID as medication over objection. Given concern for skin breakdown consult was placed for wound nurse. Given concern for possible DVT and after discussion with hospitalist will begin lovenox 40mg subQ daily. David was able to vocalize consent for this as he remains mute and unable/unwilling to engage but explained the risks, benefits, alternatives and rationale for lovenox and that we will be offering this to him. 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 02/15/2021--Have ruled out catatonia given inconsistent response to ativan trial, multiple observed examples of volitional movement immediately following periods of patient lying in bed and mute. Subsequent catatonia scales have been negative and patient feels that his symptoms represent withdrawn features of anxiety and depression. Given bipolar depression with neurovegetative features will start latuda. Encouragingly he is eating more and drinking more and got out of bed twice last night. Risk Factors Assessment Male: Yes : Yes Do You Have Access To A Gun?: No (in supportive living enviornment, pt unable to answer ) Mental Health Diagnoses: Yes Previous Psychiatric Hospitalization: Yes Protective Factors Assessment Employed: No Interval History Identifying Information 40 yo man with history of catatonia, depression, bipolar disorder vs schizophrenia admitted due to concern for decompensation with failure of self- care at [facility]. Admitted on 302, now 304. Chief Complaint "why would you think I can't open that?". Review of Systems Sleep Information Total Hours of Sleep: 6.5 Sleep Comments: pt remained in bed and appeared to be asleep @0100 and thereafter. pt on q-15 minute checks Meal Information Percent Meal Consumed - Breakfast: 10 Percent Meal Consumed - Lunch: 0 Percent Meal Consumed - Dinner: 0 Nutrition Comment: Patient in room resting, unresponsive to staff. Subjective Subjective Patient was seen & assessed and interval progress reviewed with nursing and social work. Got up/ate on evening shift, out to breakfast this am. Seemed confused with his tray, only took a few bites of his sandwich but did accept ice cream and juice. He declined to have his nails trimmed. Has take PO Haldol 4 consecutive nights. Would not accept additional PO this am. Physical Exam Psychiatric Orientation: alert; + uncooperative Apperance: + disheveled Eye Contact: + poor eye contact Motor Behavior: no abnormal motor movements and + psychomotor retardation Speech: + mute Affect: + flat affect Thought Process: + thought blocking Suicidal Thoughts: denies suicidal thoughts Homicidal Thoughts: denies homicidal thoughts Hallucinations: no auditory hallucinations and no visual hallucinations Cognition: + attention not intact Insight: + severely impaired insight Judgement: + severely impaired judgement Vital Signs (Past 24 Hours) Last Vital Signs Temp 36.6 C 04/13/21 20:47 Pulse 72 04/13/21 06:44 Resp 18 04/13/21 06:44 BP 125/78 04/13/21 06:44 Pulse Ox 94 04/03/21 20:37 Results & Data ([facility]) Current Inpatient Medications Current Inpatient Medications: Current Inpatient Medications Acetaminophen (Acetaminophen 325 Mg Tab) 650 mg PO Q4H PRN PRN Reason: Headache or Minor Fever Stop: 05/11/21 10:27 Last Admin: 03/16/21 10:34 Dose: 325 mg Documented by: Al Hydrox/Mg Hydrox/Simethicone (Aluminum/Magnesium Susp 30 Ml Udc) 30 ml PO Q4H PRN PRN Reason: GI Upset Stop: 05/11/21 10:27 Benztropine Mesylate (Benztropine Mesylate 1 Mg Tab) 1 mg PO Q6 PRN PRN Reason: Muscle Spasm Stop: 05/03/21 08:40 Bismuth Subsalicylate (Bismuth Subsalicylate Liqd 236 Ml) 15 ml PO PRN PRN PRN Reason: Loose Stool Stop: 05/11/21 10:27 Diphenhydramine HCl (Diphenhydramine 50 Mg/Ml Vial) 50 mg IM BID PRN PRN Reason: Agitation Stop: 04/30/21 13:45 Enoxaparin Sodium (Enoxaparin Inj 40 Mg/0.4 Ml Syr) 40 mg SQ DAILY@2100 [facility] Stop: 05/05/21 20:59 Last Admin: 04/13/21 21:02 Dose: Not Given Documented by: Folic Acid (Folic Acid 1 Mg Tab) 1 mg PO [facility] Stop: 05/10/21 21:59 Last Admin: 04/13/21 21:06 Dose: 1 mg Documented by: Haloperidol (Haloperidol 5 Mg Tab) 10 mg PO DAILY@2100 [facility] Stop: 05/04/21 20:59 Last Admin: 04/13/21 20:47 Dose: 10 mg Documented by: Haloperidol (Haloperidol 5 Mg Tab) [facility] [place] Stop: 05/14/21 08:59 Last Admin: 04/14/21 11:37 Dose: Not Given Documented by: Haloperidol Lactate (Haloperidol Lactate 5 Mg/Ml 1 Ml Vial) 5 mg IM BID PRN PRN Reason: Agitation Stop: 04/30/21 13:45 Haloperidol Lactate (Haloperidol Lactate 5 Mg/Ml 1 Ml Vial) 10 mg IM DAILY PRN PRN Reason: for refusal of PO 10 mg dose Stop: 05/03/21 08:41 Lorazepam (Lorazepam 1 Mg Tab) 1 mg PO Q6 PRN PRN Reason: Anxiety/Agitation Stop: 05/11/21 08:14 Last Admin: 04/04/21 20:52 Dose: 1 mg Documented by: Lorazepam (Lorazepam 2 Mg/Ml Vial (Im Use)) 2 mg IM BID PRN PRN Reason: Agitation Stop: 04/30/21 13:45 Lorazepam (Lorazepam 1 Mg Tab) 1 mg PO DAILY@2100 [facility] Stop: 05/04/21 20:59 Last Admin: 04/13/21 20:50 Dose: 1 mg Documented by: Lorazepam (Lorazepam 2 Mg/Ml Vial (Im Use)) 1 mg IM DAILY PRN PRN Reason: for refusal of PO dose Stop: 04/28/21 13:29 Last Admin: 04/09/21 20:50 Dose: 1 mg Documented by: Magnesium Hydroxide (Magnesium Hydroxide Susp 30 Ml Udc) 30 ml PO DAILY PRN PRN Reason: Constipation Stop: 05/11/21 10:27 Potassium Chloride (Potassium Chloride Pwd 20 Meq Pack) 40 meq PO DAILYBD PRN PRN Reason: hypokalemia, to be given once Stop: 05/09/21 08:58 Sodium Chloride (Sodium Chloride 0.65% Na Soln 45 Ml ([place])) 1 - 2 sprays NA PRN PRN PRN Reason: Nasal Dryness/Congestion Stop: 05/11/21 10:27 Mental Health & Subst Abuse Tx Psychiatrist Name of Psychiatrist: Oniel Negron Psychiatrist's Date of Appointment with Psychiatrist: 03/13/21 Time of Appointment with Psychiatrist: 9:20am Psychiatric Appointment Comment: Zoom *is on waiting list for appt. sooner Therapist Name of Therapist: Unknown Assistant Teacher Primary Name of Assistant Teacher Primary: Mauri ([employer]) Post Discharge Appointments Primary Care Physician Name Of Family Doctor: Unknown
[2021-04-14] MEDS: LORazepam 1 MG TAB PO SCH ×2 (20:45→21:04)
[2021-04-14] MEDS: HALOPERIDOL LACTATE 5 MG/ML 1 ML VIAL IM PRN (20:59)
[2021-04-14] MEDS: LORazepam 2 MG/ML VIAL (IM USE) IM PRN (21:00)
[2021-04-14] MEDS: FOLIC ACID 1 MG TAB PO SCH (21:05)
[2021-04-15] MEDS: haloperidoL 5 MG TAB PO SCH ×2 (09:07→20:24)
[2021-04-15] MEDS ORDERED: HALOPERIDOL LACTATE 5 MG/ML 1 ML VIAL IM PRN (11:17)
--- NOTE | 2021-04-15 13:07 | Psychiatric Progress Note ---
Date of Service April 15, 2021 Impression / Recommendations Impression The patient is a 40 year old with a history of schizoaffective disorder who was admitted for failure of self-care and worsening decompensation at [facility]. His functioning is poor with inconsistent activity and PO intake despite trials of Ativan, Emsam patch, IM Zyprexa, and now Haldol. He will not take PO meds consistently and is largely mute. Still requiring Lovenox injections. Both inpatient attendings and his outpatient psychiatrist agree that ECT is medically necessary and a court order is being pursued as he is unable to consent. I again notified patient that he has a right to discuss and refuse ECT and he refuses to acknowledge my presence. I agree with Dr. Garces that court ordered ECT is an appropriate and necessary next step in terms of treatment. There is significant evidence for the efficacy of ECT in treating depression for both MDD and bipolar depression as well as strong evidence to support it's use for treatment resistant cases for schizoa ffective disorder. His ongoing poor nutritional intake with periods of electrolyte abnormalities, weight loss, lack of movement with potential for ongoing muscle weakness/wasting as well as increased risk for DVT, lack of self- care/consequences of poor hygiene and lack of improvement from multiple medication trials are all reasons to pursue ECT at this time. 04/15/21: OOB and eating more consistently, still inconsistent with PO Haldol but tolerating titration Plan: will add IM 5 mg Haldol order for refusal of PO. (1) Schizoaffective disorder: Risk Factors Assessment Male: Yes : Yes Do You Have Access To A Gun?: No (in supportive living enviornment, pt unable to answer ) Mental Health Diagnoses: Yes Previous Psychiatric Hospitalization: Yes Protective Factors Assessment Employed: No Interval History Identifying Information 40 yo man with history of catatonia, depression, bipolar disorder vs sc hizophrenia admitted due to concern for decompensation with failure of self-care at [facility]. Admitted on 302, now 304. Chief Complaint ongoing selective mutism Review of Systems Sleep Information Total Hours of Sleep: 6 Sleep Comments: pt remained in bed and appeared to be asleep @0100 and thereafter. pt on q-15 minute checks Meal Information Percent Meal Consumed - Breakfast: 25 Percent Meal Consumed - Lunch: 0 Percent Meal Consumed - Dinner: 0 Nutrition Comment: Patient in room resting, unresponsive to staff. Subjective Subjective Patient was seen & assessed and interval progress reviewed with treatment team. Received IM Haldol last pm as spit out PO. Otherwise has been ambulating each shift. Asked to shower and then came out unshowered having had a BM in there instead. Unclear if disorganized vs testing staff. Out for breakfast this am and took PO haldol. Otherwise minimal interactions. Physical Exam Psychiatric patient seen ambulating with steady gait, no eye contact or spontaneity utterances, would not engage in conversation and returned to bed and covered his face with blanket. Vital Signs (Past 24 Hours) Last Vital Signs Temp 36.4 C L 04/14/21 21:17 Pulse 72 04/13/21 06:44 Resp 18 04/13/21 06:44 BP 125/78 04/13/21 06:44 Pulse Ox 94 04/03/21 20:37 Results & Data ([facility]) Current Inpatient Medications Current Inpatient Medications: Current Inpatient Medications Acetaminophen (Acetaminophen 325 Mg Tab) 650 mg PO Q4H PRN PRN Reason: Headache or Minor Fever Stop: 05/11/21 10:27 Last Admin: 03/16/21 10:34 Dose: 325 mg Documented by: Al Hydrox/Mg Hydrox/Simethicone (Aluminum/Magnesium Susp 30 Ml Udc) 30 ml PO Q4H PRN PRN Reason: GI Upset Stop: 05/11/21 10:27 Benztropine Mesylate (Benztropine Mesylate 1 Mg Tab) 1 mg PO Q6 PRN PRN Reason: Muscle Spasm Stop: 05/03/21 08:40 Bismuth Subsalicylate (Bismuth Subsalicylate Liqd 236 Ml) 15 ml PO PRN PRN PRN Reason: Loose Stool Stop: 05/11/21 10:27 Diphenhydramine HCl (Diphenhydramine 50 Mg/Ml Vial) 50 mg IM BID PRN PRN Reason: Agitation Stop: 04/30/21 13:45 Enoxaparin Sodium (Enoxaparin Inj 40 Mg/0.4 Ml Syr) 40 mg SQ DAILY@2100 OG Stop: 05/05/21 20:59 Last Admin: 04/13/21 21:02 Dose: Not Given Documented by: Folic Acid (Folic Acid 1 Mg Tab) 1 mg PO HS OG Stop: 05/10/21 21:59 Last Admin: 04/14/21 21:05 Dose: Not Given Documented by: Haloperidol (Haloperidol 5 Mg Tab) 10 mg PO DAILY@2100 OG Stop: 05/04/21 20:59 Last Admin: 04/14/21 21:04 Dose: Not Given Documented by: Haloperidol (Haloperidol 5 Mg Tab) 5 mg PO QAM OG Stop: 05/14/21 08:59 Last Admin: 04/15/21 09:07 Dose: 5 mg Documented by: Haloperidol Lactate (Haloperidol Lactate 5 Mg/Ml 1 Ml Vial) 5 mg IM BID PRN PRN Reason: Agitation Stop: 04/30/21 13:45 Haloperidol Lactate (Haloperidol Lactate 5 Mg/Ml 1 Ml Vial) 10 mg IM DAILY PRN PRN Reason: for refusal of PO 10 mg dose Stop: 05/03/21 08:41 Last Admin: 04/14/21 20:59 Dose: 10 mg Documented by: Haloperidol Lactate (Haloperidol Lactate 5 Mg/Ml 1 Ml Vial) 5 mg IM QAM PRN PRN Reason: refusal of 5 mg PO Stop: 05/15/21 11:16 Lorazepam (Lorazepam 1 Mg Tab) 1 mg PO Q6 PRN PRN Reason: Anxiety/Agitation Stop: 05/11/21 08:14 Last Admin: 04/04/21 20:52 Dose: 1 mg Documented by: Lorazepam (Lorazepam 2 Mg/Ml Vial (Im Use)) 2 mg IM BID PRN PRN Reason: Agitation Stop: 04/30/21 13:45 Lorazepam (Lorazepam 1 Mg Tab) 1 mg PO DAILY@2100 OG Stop: 05/04/21 20:59 Last Admin: 04/14/21 21:04 Dose: Not Given Documented by: Lorazepam (Lorazepam 2 Mg/Ml Vial (Im Use)) 1 mg IM DAILY PRN PRN Reason: for refusal of PO dose Stop: 04/28/21 13:29 Last Admin: 04/14/21 21:00 Dose: 1 mg Documented by: Magnesium Hydroxide (Magnesium Hydroxide Susp 30 Ml Udc) 30 ml PO DAILY PRN PRN Reason: Constipation Stop: 05/11/21 10:27 Potassium Chloride (Potassium Chloride Pwd 20 Meq Pack) 40 meq PO DAILYBD PRN PRN Reason: hypokalemia, to be given once Stop: 05/09/21 08:58 Sodium Chloride (Sodium Chloride 0.65% Na Soln 45 Ml ([place])) 1 - 2 sprays NA PRN PRN PRN Reason: Nasal Dryness/Congestion Stop: 05/11/21 10:27 Mental Health & Subst Abuse Tx Psychiatrist Name of Psychiatrist: Oniel Negron Psychiatrist's Date of Appointment with Psychiatrist: 03/13/21 Time of Appointment with Psychiatrist: 9:20am Psychiatric Appointment Comment: Zoom *is on waiting list for appt. sooner Therapist Name of Therapist: Unknown Field Rep Name of Field Rep: Mauri ([facility]) Post Discharge Appointments Primary Care Physician Name Of Family Doctor: Unknown
[2021-04-15] MEDS: FOLIC ACID 1 MG TAB PO SCH ×2 (20:10→21:05)
[2021-04-15] MEDS: LORazepam 1 MG TAB PO SCH (20:24)
[2021-04-15] MEDS: HALOPERIDOL LACTATE 5 MG/ML 1 ML VIAL IM PRN (20:26)
[2021-04-15] MEDS: LORazepam 2 MG/ML VIAL (IM USE) IM PRN (20:28)
--- NOTE | 2021-04-16 09:45 | Consultation ---
Date of Consultation April 16, 2021 Assessment & Plan (1) Schizoaffective disorder: (2) Bipolar disorder with depression: at the present time I do not see any laboratory or radiographic evidence of any medical problems that could be contributing to the patient's psychiatric conditions Patient is being appropriately supplemented with folic acid due to the low folic acid level noted Would recommend continued patient's regimen of psychiatric medications as directed by the behavioral health staff (he is current receiving Haldol and Ativan) Agree with maintaining the patient on subcutaneous Lovenox at prophylactic dose to prevent DVT prevention due to the patient's relative inactivity I discussed with the behavioral health staff that closer to the time of his anticipated transfer it may be prudent to check electrolytes to ensure there are no deficiencies that need to be corrected (if any deficiencies are noted that require internal medicine assistance we are happy to assist) I discussed with the behavioral health staff that would be prudent to ascertain the Covid policy of the accepting facility so that we can arrange to have an appropriate Covid test performed closer to the time of transfer if needed Supervising Physician Co-Signing Physician Notes Patient seen and examined, chart reviewed, case discussed with Brendon Navarrete and I agree with the assessment and plan as above except as otherwise noted above. Subjective and review limited by mental status General: Disheveled, no acute distress, appears documented age. Does not answer questions or engage with exam. HEENT: Atraumatic, normocephalic. Pulm: CTAB A&P. -wheezes, -rales, -rhonchi. Symmetrical chest rise. No increase work of breathing. No respiratory distress. Cardiac: RRR, -mrg. Radial pulses intact and symmetrical. Abdominal: nondistended, soft. BS present. Does not grimace to palpation. All labs and images reviewed. Last EKG with no QTp. This is a 40-year-old male admitted to our behavioral health unit and treated fo r catatonia, depression, and schizoaffective disorder. Patient has had treatment as documented above and by psychiatry team, he is being assessed for initiation of electroconvulsive therapy. We have been consulted for medical evaluation of the patient. At this point he appears medically optimized, with normal vitals, and no modifiable risk factors to improve risk/benefit ratio of proposed treatment. Recommend continuing with proposed treatment, and agree with Brendon Navarrete's assessment as above. He is currently on bupropion, if he undergoes electroconvulsive therapy this is known to reduce the seizure threshold in a dose-dependent fashion. History of Present Illness Reason for Consultation: Medical clearance for transfer to alternate facility to receive psychiatric treatment Attending Physician: Rose Arevalo MD History of Present Illness This is a 40-year-old male who has been admitted to [facility] behavioral health unit since February 09 of this year. Patient was admitted and has since been treated for schizoaffective disorder, catatonia, and depression. The patient had been noted to have worsening decompensation of his mental status as well as limitations of his self-care and failure to thrive, thus requiring admission. It should be noted that the patient was essentially nonverbal at the time of my attempted interview and he did not cooperate with any of the physical exam. Therefore nearly the entire history of present illness was obtained from review of the chart as well as discussion with Dr. Arevalo of the psychiatric service as well as the nursing and application support intern on the behavioral health unit. Dr. Ghotra notes that the patient has been essentially stable for his entire stay at [facility]. To the best of their knowledge the patient has not had any recorded fevers. There have not been any noted falls or head injuries. They note that the patient has had limited oral intake but he has not had any nausea or vomiting. They note that his abdomen has been soft and he did not seem to have any pain in his abdomen. They note that the patient has been having normal bowel movements and does not appear to have any difficulty urinating. They note that he does not seem to have any cough and does not seem to be dyspneic or short of breath at any time. They note that due to the patient's underlying psychiatric conditions he is been essentially mute and very and active. They say that he spends the majority of his time laying in bed. They do note that at times his activity level is better than others. Due to his relative inactivity they have been administering Lovenox injections for DVT prophylaxis. Dr. Arevalo notes that they have been checking electrolytes periodically and at times have had periods of hypokalemia but have not not had any other concerns. They do not voice any other acute concerns at this time. Due to the patient's underlying psychiatric condition Dr. Ghotra notes that they have had neurology see the patient. An EEG was performed on 02/21/2021. The study was essentially normal during wakefulness and drowsiness and no focal abnormalities or epileptogenic discharges were noted. The patient's other available labs and imaging that were performed during this admission were reviewed. Patient did have a Covid test at time of admission on 02/08/2021 which was noted to be negative. A toxicology screen was performed and was noted to be negative for all substances tested. He was also noted to have nonelevated levels of salicylate, acetaminophen, and ethyl alcohol. In addition a serum copper level was checked and was not noted to be elevated. A urinalysis at time of admission was performed and was not indicative of infection. The most recent electrolytes performed were on 04/07/2021. Chemistry profile showed sodium and potassium are 140 and 3.2 respectively. His BUN and creatinine were both noted to be within normal range. There is no elevation of patient's bilirubin and there was slight elevation of his AST and ALT at 3895 respectively. His alkaline phosphatase was noted to be normal on the study. Patient has had a TSH checked at time of admission which was noted to be within the normal range. Patient has had vitamin B-12 levels checked on 04/10/2021 which was normal. A folic acid level was slightly low at 4.0. A ceruloplasmin level was also checked and was noted to be normal. There is also no over the mention that a repeat potassium was checked on 04/10/2021 and was slightly low at 3.4. Available imaging this admission included a brain MRI (on 02/21/2021) that showed no acute intracranial abnormalities. A chest x-ray (on 02/21/2021) showed no evidence of pneumonia, a KUB (on 02/21/2021) showed no evidence of small bowel obstruction, and then orbit x-ray (on 02/21/2021) showed no evidence of foreign body located in the orbits. Dr. Arevalo notes that they feel that the patient would benefit from electroconvulsive therapy which is not offered at this facility. They are cu rrently in the process of pursuing a court hearing in order to get a court order to transfer the patient to a facility where electroconvulsive therapy can be pursued and administered. Due to their tentative plans for transfer (assuming a court order can be obtained) they have requested internal medicine see the patient for assistance in medical clearance. At the time of my interview the patient was lying in bed. He would not converse with me verbally and would not follow commands. The patient would open his eyes and he was awake. He did not appear to be in any distress at the time of my i nterview/exam. Allergies Allergy/AdvReac Type Severity Reaction Status Date / Time No Known Allergies Allergy Verified 02/08/21 22:26 Home Medications Medication Instructions Recorded Confirmed Type olanzapine 10 mg tablet (Zyprexa) 15 mg PO HS 03/14/20 02/08/21 History bupropion HCl 100 mg tablet,12 hr 100 mg PO BID 10/31/20 02/08/21 History sustained-release lamotrigine 200 mg tablet 200 mg PO BID 10/31/20 02/08/21 History Patient History Medical History Anxiety Bipolar disorder Catatonia Depression Obesity Schizoaffective disorder Surgical History No pertinent past surgical history Social History Smoking Status: Unknown if ever smoked Preferred Language: Maltese Communication Ability: non-verbal Jewel 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 Required: No Beliefs That Will Affect Care: None Feels Safe at Home: Declines to Answer Assistive Devices: Glasses Review of Systems Review of Systems: Full review of systems was attempted but was unable to be completed due to the psychiatric/mental status of the patient Physical Exam Constitutional: + disheveled; no acute distress Eyes: PERRL, conjunctivae normal, anicteric sclerae ENMT: Ears: no external ear abnormality Nose: no external nose abnormality Mouth: no oropharynx abnormality Neck: trachea midline Respiratory: normal respiratory effort, lungs clear to auscultation Cardiovascular: RRR, no murmur, no edema Gastrointestinal (Abdomen): Patient's abdomen is soft and nondistended. Palpation of the abdomen and both a light touch and deep manner did not seem to elicit a painful response Musculoskeletal: No gross orthopedic abnormalities. No calf pain with squeez e. Skin: normal turgor; no rashes Neurologic: Unable to perform complete neurologic exam due to mental status/psychiatric condition of patient Psychiatric: Apperance: + disheveled Eye Contact: + fair eye contact PG Care Time/CCT Total # of Minutes Spent Total Time Spent with Patient: Total time spent is greater than 50% in coordination of care (as documented) at patient's floor/unit and/or counseling patient: Coding Level of Care Code 30949 Inpt Consult Level 5 Diagnoses Schizoaffective disorder F25.9 Bipolar disorder with depression F31.9
[2021-04-16] MEDS: haloperidoL 5 MG TAB PO SCH ×2 (09:59→20:35)
--- NOTE | 2021-04-16 10:38 | Psychiatric Progress Note ---
Date of Service April 16, 2021 Impression / Recommendations Impression The patient is a 40 year old with a history of schizoaffective disorder who was admitted for failure of self-care and worsening decompensation at long-term. His functioning is poor with inconsistent activity and PO intake despite trials of Ativan, Emsam patch, IM Zyprexa, and now Haldol. He will not take PO meds consistently and is largely mute. Still requiring Lovenox injections. Both inpatient attendings and his outpatient psychiatrist agree that ECT is medically necessary and a court order is being pursued as he is unable to consent. I again notified patient that he has a right to discuss and refuse ECT and he refuses to acknowledge my presence. I agree with Dr. Garces that court ordered ECT is an appropriate and necessary next step in terms of treatment. There is significant evidence for the efficacy of ECT in treating depression for both MDD and bipolar depression as well as strong evidence to support it's use for treatment resistant cases for schizoa ffective disorder. His ongoing poor nutritional intake with periods of electrolyte abnormalities, weight loss, lack of movement with potential for ongoing muscle weakness/wasting as well as increased risk for DVT, lack of self- care/consequences of poor hygiene and lack of improvement from multiple medication trials are all reasons to pursue ECT at this time. 04/16/21: more consistent ambulation and meals following increase in Haldol but overall little change in mood or social interactions, remains unresponsive to efforts to engage in self-care. (1) Schizoaffective disorder: 04/16/21: Haldol 10 mg bid with IM for refusal of PO. Medicine consult appreciated. Referral packet sent to [facility]. 04/13/21: attempt am dose of 5 mg Haldol, continue 10 hs with Ativan. Needs med clearance for ECT. Will hold Lovenox today as some improvement in activity. 04/12/21: continue with haldol and ativan. He was provided with legal paperwork regarding filing for ECT. 04/11/21: continue with haldol and ativan po or IM. Adding mouth checks if he accepts po haldol. Consulted hospitalist for pre-ECT physical exam. He refuses attempts to clip his fingernails. 04/10/21: Add folate supplement. Potassium level improving. Sent out labs for copper and ceruloplasmin. Engaged verbally with multiple staff and briefly watched movie with peers today. Started process for court-ordered ECT. 04/09/21: continue haldol and ativan po or IM. Working on process for consideration for court-ordered ECT. 04/08/21: continue haldol 10mg po or IM and ativan po or IM. Took potassium supplementation in juice yesterday will recheck labs in a few days. Agree with plan to pursue court order for ECT given non-responsiveness to other medication trials so far and his refusal to consistently take any po medication options. 04/07/21: limited PO, remains hypokalemic but overall labs stable 04/06/21: repeat labs in am, consider medicine consult (currently no acute indication for transfer), previous experience was he was less active when prescribed Zyprexa so monitor risks/benefits of Haldol. 04/05/21: attempt to replete K again, Discontinue Emsam patch, pursue court order for ECT when offices reopen after hol. Continue IM Haldol with Ativan trial for now. 04/04/21: Haldol increased to 10 mg PO or IM yesterday with no change overnight, will shift to pm. Will d/c Emsam patch after tomorrow's dose as no sustained benefit and will need to pursue court order for ECT after holiday weekend. 03/31/21: increase haldol to 5 mg po or IM and ativan 1mg po or IM. Continue Emsam patch. 03/30/21: continue haldol 2.5 mg po or IM and ativan 1mg po or IM. Continue Emsam patch. Walked three laps around the unit with encouragement today. 03/29/21: Starting haldol 2.5 mg po or IM and ativan 1mg po or IM for suspected psychosis with negativism, lack of personal care, thought blocking/negative sx and avolition. Continue Emsam patch. Discontinued modafinil. 03/28/21: continue to offer medications. Gave ativan 1mg IM x1 last night after additional episode of spitting. Repeat labwork today showing improvement in nutritional status (albumin and total protein now normal and BUN/CR wnl). 03/27/21: continue to offer medications, he continues to refuse. Continuing to explore ways to involve his extended family or other aspects of care which could incentive his engagement in care. May need to consider if a less sedating antipsychotic medication should be re-trialed. Referral for [facility] has been accepted. 03/26/21: continue current medications, refused modafinil but will try again over next few days. Continue with ativan 1mg BIDM po 03/25/21: start modafinil 50 mg qAM, will monitor carefully for any interactions with MAOI. Discontinued ativan IM for refusal of po. Reducing ativan dosing from TID po to BID po in the afternoon to avoid combining morning stimulant with morning benzo as this would be counterproductive to stimulant trial. 03/24/21: continue current medications. 03/23/21: labwork done today and reviewed no significant changes from prior labwork, still has elevated Cl. Continue with lovenox, emsam patch, and ativan 1 mg po TID (with BID IM for refusal) 03/22/21: labs in am and resume Lovenox given regression past 3 days. 03/18/21: unable to care for self outside of hospital, continue Emsam patch, will not increase as I do not believe he can follow appropriate dietary restrictions at higher doses. 03/17/21: Ativan 1 mg PO TID (inject up to BID for refusal). 03/16/21: resume IM Ativan for refusal of PO Ativan. 03/15/21: Continue current medications. Making referral to [facility] given slow progression and he is still very far from his baseline which will require extended treatment and thus he will be best served by a longer term treatment approach. 03/14/21: Continue with current medications. Reviewed labwork, K+ improved but still signs of poor nutrition. Elevated ALT could be side effect from Emsam patch (occurs in <1/100 - 05/999 pts), will continue to monitor. may be able to consider transition to a po medication if he remains consistent with accepting po medications but for now Emsam patch benefit is felt to outweigh risk of slight ALT elevation. 03/13/21: Continue with current medications. Supports from [employer] will visit tomorrow. Labwork CMP tomorrow morning to ensure correction of hypokalemia. 03/12/21: Continue with current medications. Discussed with treatment team having his long-term supports come for a visit and they will visit on . Reviewed his interactions with staff during evening hours/overnight in the chart and continues to show progress with engagement. 03/11/21: Continue with ativan 1 mg BID po, canceled IM as he is agreeing to voluntary po. Given steady improvement over the last 1 week consistent with expected timeline for symptom improvement from Emsam patch he may no longer need longer term care option if improvement persists at this rate. If progress stalls or regression occurs then will reconsider if longer term option for treatment is required. 03/10/21: Reduce ativan to 1 mg BID due to dizziness, low BP and possible fall yesterday. Will discontinue lovenox per his request and since he is now consistently moving around throughout the day and at night, discussed risk of blood clots if he doesn't continue to move around and ambulate frequently which he vocalized understanding of and agreement with. Given improvement in nutritional intake will hold off on rechecking labwork for now, will get repeat labs in 1 week on 03/14. 03/09/21: Reviewed interim progress. Continue Emsam patch and ativan 2mg BID trial-will monitor for excessive sedation. 03/08/21: Ativan 2 mg BID trial. 03/07/21: patient seen by neurology, appreciate input, seems severe vegetative symptoms due to depression though last few doses of Ativan have been more effective than previous. Continue Ativan 1 mg po BID (IM for refusal). Attempt to replete K with powder dissolved in juice. 03/04/21: will explore personal jail as concerns he will not improve to point he can make meals/meet requirements to return to [facility] during this stay. 03/03/21--continue same. Cannot attempt coadmin with stimulant trial for hypersomnia as contraindicated with MAOI. No medical decompensation that would necessitate referral to medical or seeking court order for ECT. At minimum behaviors are challenging but more appropriate when willing to interact with staff. Need to consider longer term care options given slow progression. 03/02/21--interim care reviewed. Continue EMSAM and Lovenox injection. 03/01/21--Day 9 of Emsam patch. Continuing with behavioral plan to encourage behavioral activation-he was provided with plan with goals of having him come out of his room to eat meals, cooperate with repositioning, stand up when his sheets are changed/or if he prefers to stay in bed until the evening then clean sheets can be provided for him to put on the bed or request help putting on the bed in the evening, and continue independently voiding in his bedside urinal, shower can be started for him but he should be encouraged to get into the shower on his own, encourage him to address basic hygiene by continuing to provide him with easy access to his toothbrush, shampoo, etc. 02/28/21--Day 8 of Emsam patch. Now seeing new pattern of daily food intake which is encouraging. Continues to present with regressed behaviors and refusal to interact during the day. 02/27/21--Continue with Emsam patch. Getting out of bed more in the evenings and eating more. Lack of engagement during the day was volitional-pulling blanket over his head after he saw me enter his room. Also becoming more irritable with staff when he is encouraged to do more on his own for behavioral activation. 02/26/21-Continue with Emsam patch. 304 status granted. Ate last night and interacted with staff but no engagement today. 02/25/21--Continues to demonstrate severe depression with neurovegetative symptoms with no engagement with staff. Behavioral plan challenged by finding a reward/incentive that he enjoys. Continuing to encourage behavioral activation. Petitioned for 304 status with hearing scheduled for tomorrow given ongoing symptom burden and need for ongoing treatment. Remains on lovenox for DVT prophylaxis. Continue with Emsam patch. 02/24/21--Remains isolative and will not engage verbally. Encouragingly is attending slightly more to some of his ADLs, will continue with behavioral plan in hopes to continue encouraging behavioral activation although food does not seem to be a good motivator/reward for him. Will continue to think about other possible motivators for him to help encourage increased activity, po intake and engagement with therapeutic milieu. No signs of HTN or other side effects from MAOI at this point. 02/23/21--Continues to demonstrate neurovegetative symptoms of depression, rem aining in bed most of the day but sometimes more engagement in the evenings. Will implement behavioral plan to encourage behavioral activation to treat neurovegetative symptoms in conjunction with Emsam as well as to encourage increased participation with ADLs. Nursing to provide him with tools to help him eat and promote good hygiene (brining in meals, supplies to wash up) and then if he does this independently will bring in ice cream or chips as reward to see if this helps with activation and increased po intake. 02/22/21--neurologic work up with EEG and brain MRI unremarkable, continue Emsam trial. 02/21/21--complex differential--depression with psychotic features in a patient with bipolar disorder most likely, certainly not typcial catatonia. No hx of hyperphagia or hypersexuality known that would suggest Kleine-Hess syndrome. Will proceed with Emsam patch 6 mg trial as only means to administer antidepressant. Will check with an ECT facility to determine if can treat patient if pursue a court order (will await emsam trial first). MRI brain (patient will need various x rays first as can't answer screening questions, no hx of pacemaker on chart). bedside EEG to rule out status epilepticus. 02/19/21--non-formulary request for Emsam patch. Hasn't taken antidepressants for at least 6 weeks. Would reconsider current med doses when this becomes available. without antidepressant he will continue to decompensate medically and is at significant risk of further decompensation. 02/17/21--lytes, Bun/Cr improved; given sleep phase shift desirable to shift antipsychotic to pm meal with IM Zyprexa for refusal. Bedside EEG likely poor quality/low yeild but consider if no improvement. 02/16/21--Reviewed care by Dr. Garces in italics. will d/c IM Ativan in favor of Zyprexa IM for failure to take Latuda. Does take Lorazepam prn PO, adjust dose and frequency and monitor use. Will repeat labs and PO intake so variable and hard to track. 02/09/2021--admitted to [facility]. Ativan 2mg SL TID ordered. Track Is&Os. Vitals BID. 02/10/2021--continue with ativan 2mg TID SL. Showing significant improving in catatonic symptoms since ativan trial last night. If he continues to walk around no need for DVT prophylaxis. Will consider if 302 needs to be converted to 303 based on progress today. 02/11/2021--continue with scheduled ativan. Less engagement today but still ea ting and drinking. Plan for likely 303 given his inability/reluctance to engage in treatment. Reviewed outside records. 02/12/2021--continues to refuse ativan today and won't engage with anyone nor l eave his bed except to use the bathroom and to eat at night. Given some movement in the evening and to the bathroom he doesn't require DVT prophylaxis at this time but this remains a concern should he clinically worsen and will continue to monitor his nutritional and medical status closely. 02/13/2021--placed on 303 status due to ongoing decompensation due to catatonia including refusal of medication, not eating, not drinking, not communicating with anyone and lying in bed all day. Once catatonia begins to improve with treatment will aim to start latuda which helped previously. Parker to require medications over objection for ativan to treat catatonia. If catatonia does not respond quickly to ativan then will consider if DVT prophylaxis should be initiated. 02/14/2021--no significant change in behaviors with additional of scheduled ativan 2 mg BID as medication over objection. Given concern for skin breakdown consult was placed for wound nurse. Given concern for possible DVT and after discussion with hospitalist will begin lovenox 40mg subQ daily. David was able to vocalize consent for this as he remains mute and unable/unwilling to engage but explained the risks, benefits, alternatives and rationale for lovenox and that we will be offering this to him. 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 02/15/2021--Have ruled out catatonia given inconsistent response to ativan trial, multiple observed examples of volitional movement immediately following periods of patient lying in bed and mute. Subsequent catatonia scales have been negative and patient feels that his symptoms represent withdrawn features of anxiety and depression. Given bipolar depression with neurovegetative features will start latuda. Encouragingly he is eating more and drinking more and got out of bed twice last night. Risk Factors Assessment Male: Yes : Yes Do You Have Access To A Gun?: No (in supportive living enviornment, pt unable to answer ) Mental Health Diagnoses: Yes Previous Psychiatric Hospitalization: Yes Protective Factors Assessment Employed: No Interval History Identifying Information 40 yo man with history of catatonia, depression, bipolar disorder vs schizophrenia admitted due to concern for decompensation with failure of self- care at [facility]. Admitted on 302, now 304. Chief Complaint abulia, needs ECT Review of Systems Sleep Information Total Hours of Sleep: 7.25 Sleep Comments: pt remained in bed and appeared to be asleep @0100 and thereafter. pt on q-15 minute checks Meal Information Percent Meal Consumed - Breakfast: 75 Percent Meal Consumed - Lunch: 100 Percent Meal Consumed - Dinner: 0 Nutrition Comment: pt. OOB & had juice and 2 bowls of cereal Subjective Subjective Patient was seen & assessed and interval progress reviewed with nursing and social work. Assisted hospitalist consult. He will not swallow medication directly, cheeks it; required 3 staff to turn last pm for IM Haldol. Seems confused when does interact like yelled in lounge area "what am I supposed to do with this bowl?" after his cereal. Physical Exam Psychiatric Orientation: alert Apperance: + disheveled Eye Contact: + poor eye contact Motor Behavior: no abnormal motor movements Speech: + abnormal rate/rhythm/volume of speech Affect: + depressed affect Thought Process: + thought blocking Thought Content: + paranoid internally preoccupied but does not appear to be responding to internal stimuli. Cognition: + attention not intact Vital Signs (Past 24 Hours) Last Vital Signs Temp 36.7 C 04/16/21 10:18 Pulse 83 04/16/21 10:18 Resp 18 04/16/21 10:18 BP 111/73 04/16/21 10:18 Pulse Ox 94 04/03/21 20:37 Results & Data ([facility]) Current Inpatient Medications Current Inpatient Medications: Current Inpatient Medications Acetaminophen (Acetaminophen 325 Mg Tab) 650 mg PO Q4H PRN PRN Reason: Headache or Minor Fever Stop: 05/11/21 10:27 Last Admin: 03/16/21 10:34 Dose: 325 mg Documented by: Al Hydrox/Mg Hydrox/Simethicone (Aluminum/Magnesium Susp 30 Ml Udc) 30 ml PO Q4H PRN PRN Reason: GI Upset Stop: 05/11/21 10:27 Benztropine Mesylate (Benztropine Mesylate 1 Mg Tab) 1 mg PO Q6 PRN PRN Reason: Muscle Spasm Stop: 05/03/21 08:40 Bismuth Subsalicylate (Bismuth Subsalicylate Liqd 236 Ml) 15 ml PO PRN PRN PRN Reason: Loose Stool Stop: 05/11/21 10:27 Diphenhydramine HCl (Diphenhydramine 50 Mg/Ml Vial) 50 mg IM BID PRN PRN Reason: Agitation Stop: 04/30/21 13:45 Enoxaparin Sodium (Enoxaparin Inj 40 Mg/0.4 Ml Syr) 40 mg SQ DAILY@2099 [facility] Stop: 05/05/21 20:59 Last Admin: 04/13/21 21:02 Dose: Not Given Documented by: Folic Acid (Folic Acid 1 Mg Tab) 1 mg PO HS [facility] Stop: 05/10/21 21:59 Last Admin: 04/15/21 21:05 Dose: Not Given Documented by: Haloperidol (Haloperidol 5 Mg Tab) 10 mg PO DAILY@2099 [facility] Stop: 05/04/21 20:59 Last Admin: 04/15/21 20:24 Dose: Not Given Documented by: Haloperidol (Haloperidol 5 Mg Tab) 5 mg PO QAM [facility] Stop: 05/14/21 08:59 Last Admin: 04/16/21 09:59 Dose: Not Given Documented by: Haloperidol Lactate (Haloperidol Lactate 5 Mg/Ml 1 Ml Vial) 5 mg IM BID PRN PRN Reason: Agitation Stop: 04/30/21 13:45 Haloperidol Lactate (Haloperidol Lactate 5 Mg/Ml 1 Ml Vial) 10 mg IM DAILY PRN PRN Reason: for refusal of PO 10 mg dose Stop: 05/03/21 08:41 Last Admin: 04/15/21 20:26 Dose: 10 mg Documented by: Haloperidol Lactate (Haloperidol Lactate 5 Mg/Ml 1 Ml Vial) 5 mg IM QAM PRN PRN Reason: refusal of 5 mg PO Stop: 05/15/21 11:16 Last Admin: 04/16/21 10:03 Dose: 10 mg Documented by: Lorazepam (Lorazepam 1 Mg Tab) 1 mg PO Q6 PRN PRN Reason: Anxiety/Agitation Stop: 05/11/21 08:14 Last Admin: 04/04/21 20:52 Dose: 1 mg Documented by: Lorazepam (Lorazepam 2 Mg/Ml Vial (Im Use)) 2 mg IM BID PRN PRN Reason: Agitation Stop: 04/30/21 13:45 Lorazepam (Lorazepam 1 Mg Tab) 1 mg PO DAILY@2099 [facility] Stop: 05/04/21 20:59 Last Admin: 04/15/21 20:24 Dose: Not Given Documented by: Lorazepam (Lorazepam 2 Mg/Ml Vial (Im Use)) 1 mg IM DAILY PRN PRN Reason: for refusal of PO dose Stop: 04/28/21 13:29 Last Admin: 04/15/21 20:28 Dose: 1 mg Documented by: Magnesium Hydroxide (Magnesium Hydroxide Susp 30 Ml Udc) 30 ml PO DAILY PRN PRN Reason: Constipation Stop: 05/11/21 10:27 Potassium Chloride (Potassium Chloride Pwd 20 Meq Pack) 40 meq PO DAILYBD PRN PRN Reason: hypokalemia, to be given once Stop: 05/09/21 08:58 Sodium Chloride (Sodium Chloride 0.65% Na Soln 45 Ml ([facility])) 1 - 2 sprays NA PRN PRN PRN Reason: Nasal Dryness/Congestion Stop: 05/11/21 10:27 Mental Health & Subst Abuse Tx Psychiatrist Name of Psychiatrist: Oniel Negron Psychiatrist's Date of Appointment with Psychiatrist: 03/13/21 Time of Appointment with Psychiatrist: 9:20am Psychiatric Appointment Comment: Zoom *is on waiting list for appt. sooner Therapist Name of Therapist: Unknown Revenue Cycle Specialist Name of Revenue Cycle Specialist: Mauri ([facility]) Post Discharge Appointments Primary Care Physician Name Of Family Doctor: Unknown
[2021-04-16] MEDS: FOLIC ACID 1 MG TAB PO SCH (20:35)
[2021-04-16] MEDS: LORazepam 1 MG TAB PO SCH (20:35)
[2021-04-16] MEDS: LORazepam 2 MG/ML VIAL (IM USE) IM PRN (20:39)
[2021-04-16] MEDS: HALOPERIDOL LACTATE 5 MG/ML 1 ML VIAL IM PRN (20:39)
[2021-04-17] MEDS: haloperidoL 5 MG TAB PO SCH ×2 (09:39→20:18)
[2021-04-17] MEDS: HALOPERIDOL LACTATE 5 MG/ML 1 ML VIAL IM PRN (09:42)
--- NOTE | 2021-04-17 14:36 | Psychiatric Progress Note ---
Date of Service April 17, 2021 Impression / Recommendations Impression The patient is a 40 year old with a history of schizoaffective disorder who was admitted for failure of self-care and worsening decompensation at [facility]. His functioning is poor with inconsistent activity and PO intake despite trials of Ativan, Emsam patch, IM Zyprexa, and now Haldol. He will not take PO meds consistently and is largely mute. Still requiring Lovenox injections. Both inpatient attendings and his outpatient psychiatrist agree that ECT is medically necessary and a court order is being pursued as he is unable to consent. I again notified patient that he has a right to discuss and refuse ECT and he refuses to acknowledge my presence. I agree with Dr. Garces that court ordered ECT is an appropriate and necessary next step in terms of treatment. There is significant evidence for the efficacy of ECT in treating depression for both MDD and bipolar depression as well as strong evidence to support it's use for treatment resistant cases for schizoa ffective disorder. His ongoing poor nutritional intake with periods of electrolyte abnormalities, weight loss, lack of movement with potential for ongoing muscle weakness/wasting as well as increased risk for DVT, lack of self- care/consequences of poor hygiene and lack of improvement from multiple medication trials are all reasons to pursue ECT at this time. 04/17/21: inconsistent progress, responds better to male professional authority but also not consistent. Plan: continue current meds, restart Lovenox. (1) Schizoaffective disorder: Risk Factors Assessment Male: Yes : Yes Do You Have Access To A Gun?: No (in supportive living enviornment, pt unable to answer ) Mental Health Diagnoses: Yes Previous Psychiatric Hospitalization: Yes Protective Factors Assessment Employed: No Interval History Identifying Information 40 yo man with history of catatonia, depression, bipolar disorder vs schizoph isaias admitted due to concern for decompensation with failure of self-care at [facility]. Admitted on 302, now 304. Chief Complaint refuses to vocalize Review of Systems Sleep Information Total Hours of Sleep: 6.5 Meal Information Percent Meal Consumed - Breakfast: 75 Percent Meal Consumed - Lunch: 0 Percent Meal Consumed - Dinner: 100 Nutrition Comment: pt. OOB & had juice and 2 bowls of cereal Subjective Subjective Patient was seen & assessed and interval progress reviewed with treatment team. decreased compliance with PO meds in last 24 hrs and less ambulatory but did spend significant amount of time in meeting with public interviewer ahead of ECT hearing. Physical Exam Psychiatric no eye contact, will not vocalize, on side and refused meds/juice. some shaking of legs upon approach. Vital Signs (Past 24 Hours) Last Vital Signs Temp 37.1 C 04/16/21 20:16 Pulse 83 04/16/21 10:18 Resp 18 04/16/21 10:18 BP 111/73 04/16/21 10:18 Pulse Ox 94 04/03/21 20:37 Results & Data ([facility]) Current Inpatient Medications Current Inpatient Medications: Current Inpatient Medications Acetaminophen (Acetaminophen 325 Mg Tab) 650 mg PO Q4H PRN PRN Reason: Headache or Minor Fever Stop: 05/11/21 10:27 Last Admin: 03/16/21 10:34 Dose: 325 mg Documented by: Al Hydrox/Mg Hydrox/Simethicone (Aluminum/Magnesium Susp 30 Ml Udc) 30 ml PO Q4H PRN PRN Reason: GI Upset Stop: 05/11/21 10:27 Benztropine Mesylate (Benztropine Mesylate 1 Mg Tab) 1 mg PO Q6 PRN PRN Reason: Muscle Spasm Stop: 05/03/21 08:40 Bismuth Subsalicylate (Bismuth Subsalicylate Liqd 236 Ml) 15 ml PO PRN PRN PRN Reason: Loose Stool Stop: 05/11/21 10:27 Diphenhydramine HCl (Diphenhydramine 50 Mg/Ml Vial) 50 mg IM BID PRN PRN Reason: Agitation Stop: 04/30/21 13:45 Enoxaparin Sodium (Enoxaparin Inj 40 Mg/0.4 Ml Syr) 40 mg SQ DAILY@2099 OG Stop: 05/05/21 20:59 Last Admin: 04/13/21 21:02 Dose: Not Given Documented by: Folic Acid (Folic Acid 1 Mg Tab) 1 mg PO HS [facility] Stop: 05/10/21 21:59 Last Admin: 04/16/21 20:35 Dose: Not Given Documented by: Haloperidol (Haloperidol 5 Mg Tab) 10 mg PO DAILY@2100 OG Stop: 05/04/21 20:59 Last Admin: 04/16/21 20:35 Dose: Not Given Documented by: Haloperidol (Hal[facility]idol 5 Mg Tab) [facility] Stop: 05/17/21 08:59 Last Admin: 04/17/21 09:39 Dose: Not Given Documented by: Haloperidol Lactate (Haloperidol Lactate 5 Mg/Ml 1 Ml Vial) 5 mg IM BID PRN PRN Reason: Agitation Stop: 04/30/21 13:45 Haloperidol Lactate (Haloperidol Lactate 5 Mg/Ml 1 Ml Vial) 10 mg IM BID PRN PRN Reason: for refusal of PO Stop: 05/14/21 09:03 Last Admin: 04/17/21 09:42 Dose: 10 mg Documented by: Lorazepam (Lorazepam 1 Mg Tab) 1 mg PO Q6 PRN PRN Reason: Anxiety/Agitation Stop: 05/11/21 08:14 Last Admin: 04/04/21 20:52 Dose: 1 mg Documented by: Lorazepam (Lorazepam 2 Mg/Ml Vial (Im Use)) 2 mg IM BID PRN PRN Reason: Agitation Stop: 04/30/21 13:45 Lorazepam (Lorazepam 1 Mg Tab) 1 mg PO DAILY@2100 [facility] Stop: 05/04/21 20:59 Last Admin: 04/16/21 20:35 Dose: Not Given Documented by: Lorazepam (Lorazepam 2 Mg/Ml Vial (Im Use)) 1 mg IM DAILY PRN PRN Reason: for refusal of PO dose Stop: 04/28/21 13:29 Last Admin: 04/16/21 20:39 Dose: 1 mg Documented by: Magnesium Hydroxide (Magnesium Hydroxide Susp 30 Ml Udc) 30 ml PO DAILY PRN PRN Reason: Constipation Stop: 05/11/21 10:27 Potassium Chloride (Potassium Chloride Pwd 20 Meq Pack) 40 meq PO DAILYBD PRN PRN Reason: hypokalemia, to be given once Stop: 05/09/21 08:58 Sodium Chloride (Sodium Chloride 0.65% Na Soln 45 Ml ([place])) 1 - 2 sprays NA PRN PRN PRN Reason: Nasal Dryness/Congestion Stop: 05/11/21 10:27 Mental Health & Subst Abuse Tx Psychiatrist Name of Psychiatrist: Oniel Negron Psychiatrist's Date of Appointment with Psychiatrist: 03/13/21 Time of Appointment with Psychiatrist: 9:20am Psychiatric Appointment Comment: Zoom *is on waiting list for appt. sooner Therapist Name of Therapist: Unknown Drafter Geological Name of Drafter Geological: Mauri ([facility]) Post Discharge Appointments Primary Care Physician Name Of Family Doctor: Unknown
[2021-04-17] MEDS: LORazepam 1 MG TAB PO SCH (20:19)
[2021-04-17] MEDS: FOLIC ACID 1 MG TAB PO SCH (20:19)
[2021-04-17] MEDS: ENOXAPARIN INJ 40 MG/0.4 ML SYR SQ SCH (23:04)
[2021-04-18] MEDS: haloperidoL 5 MG TAB PO SCH ×2 (09:31→20:49)
--- NOTE | 2021-04-18 15:36 | Psychiatric Progress Note ---
Date of Service April 18, 2021 Impression / Recommendations Impression The patient is a 40 year old with a history of schizoaffective disorder who was admitted for failure of self[facility]care [facility]. His functioning is poor with inconsistent activity and PO intake despite trials of Ativan, Emsam patch, IM Zyprexa, and now Haldol. He will not take PO meds consistently and is largely mute. Still requiring Lovenox injections. Both inpatient attendings and his outpatient psychiatrist agree that ECT is medically necessary and a court order is being pursued as he is unable to consent. I again notified patient that he has a right to discuss and refuse ECT and he refuses to acknowledge my presence. I agree with Dr. Garces that court ordered ECT is an appropriate and necessary next step in terms of treatment. There is significant evidence for the efficacy of ECT in treating depression for both MDD and bipolar depression as well as strong evidence to support it's use for treatment resistant cases for schizoa ffective disorder. His ongoing poor nutritional intake with periods of electrolyte abnormalities, weight loss, lack of movement with potential for ongoing muscle weakness/wasting as well as increased risk for DVT, lack of self- care/consequences of poor hygiene and lack of improvement from multiple medication trials are all reasons to pursue ECT at this time. 04/18/21: inconsistent minimal progress Plan: continue current meds, continue Haldol, ECT order hearing in the am. Risk Factors Assessment Male: Yes : Yes Do You Have Access To A Gun?: No (in supportive living enviornment, pt unable to answer ) Mental Health Diagnoses: Yes Previous Psychiatric Hospitalization: Yes Protective Factors Assessment Employed: No Interval History Identifying Information 40 yo man with history of catatonia, depression, bipolar disorder vs schizophrenia admitted due to concern for decompensation with failure of self- care at [facility]. Admitted on 302, now 304. Chief Complaint mute Review of Systems Sleep Information Total Hours of Sleep: 5.5 Meal Information Percent Meal Consumed - Breakfast: 0 Percent Meal Consumed - Lunch: 0 Percent Meal Consumed - Dinner: 100 Nutrition Comment: pt. OOB & had juice and 2 bowls of cereal Subjective Subjective Patient was seen & assessed and interval progress reviewed with nursing and social work. Remains a little more active on evening shift. inconsistent with PO meds. I attempted on 3 separate occasions throughout the day to engage patient in a discussion around his treatment, would not make eye contact or acknowledge my presence other than foot tap when I talk. Told staff he heard me talking about ECT and accepted PO haldol this am. Again reviewed with patient that we'd like his input into care and comment around hearing. Offered to discuss risk s/benefits again and answer questions. Irritable with staff and leaves his trash around after eats. Physical Exam Psychiatric mute, little eye contact even when sitting up/alert, thought blocking (presumed), psychomotor retardation, no apparent EPS. Vital Signs (Past 24 Hours) Last Vital Signs Temp 36.2 C L 04/17/21 20:00 Pulse 83 04/16/21 10:18 Resp 18 04/16/21 10:18 BP 111/73 04/16/21 10:18 Pulse Ox 94 04/03/21 20:37 Results & Data ([facility]) Current Inpatient Medications Current Inpatient Medications: Current Inpatient Medications Acetaminophen (Acetaminophen 325 Mg Tab) 650 mg PO Q4H PRN PRN Reason: Headache or Minor Fever Stop: 05/11/21 10:27 Last Admin: 03/16/21 10:34 Dose: 325 mg Documented by: Al Hydrox/Mg Hydrox/Simethicone (Aluminum/Magnesium Susp 30 Ml Udc) 30 ml PO Q4H PRN PRN Reason: GI Upset Stop: 05/11/21 10:27 Benztropine Mesylate (Benztropine Mesylate 1 Mg Tab) 1 mg PO Q6 PRN PRN Reason: Muscle Spasm Stop: 05/03/21 08:40 Bismuth Subsalicylate (Bismuth Subsalicylate Liqd 236 Ml) 15 ml PO PRN PRN PRN Reason: Loose Stool Stop: 05/11/21 10:27 Diphenhydramine HCl (Diphenhydramine 50 Mg/Ml Vial) 50 mg IM BID PRN PRN Reason: Agitation Stop: 04/30/21 13:45 Enoxaparin Sodium (Enoxaparin Inj 40 Mg/0.4 Ml Syr) 40 mg SQ DAILY@2100 OG Stop: 05/05/21 20:59 Last Admin: 04/17/21 23:04 Dose: 40 mg Documented by: Folic Acid (Folic Acid 1 Mg Tab) 1 mg PO HS OG Stop: 05/10/21 21:59 Last Admin: 04/17/21 20:19 Dose: 1 mg Documented by: Haloperidol (Haloperidol 5 Mg Tab) 10 mg PO DAILY@2100 OG Stop: 05/04/21 20:59 Last Admin: 04/17/21 20:18 Dose: 10 mg Documented by: Haloperidol (Haloperidol 5 Mg Tab) 10 mg PO QAM OG Stop: 05/17/21 08:59 Last Admin: 04/18/21 09:31 Dose: 10 mg Documented by: Haloperidol Lactate (Haloperidol Lactate 5 Mg/Ml 1 Ml Vial) 5 mg IM BID PRN PRN Reason: Agitation Stop: 04/30/21 13:45 Haloperidol Lactate (Haloperidol Lactate 5 Mg/Ml 1 Ml Vial) 10 mg IM BID PRN PRN Reason: for refusal of PO Stop: 05/14/21 09:03 Last Admin: 04/17/21 09:42 Dose: 10 mg Documented by: Lorazepam (Lorazepam 1 Mg Tab) 1 mg PO Q6 PRN PRN Reason: Anxiety/Agitation Stop: 05/11/21 08:14 Last Admin: 04/04/21 20:52 Dose: 1 mg Documented by: Lorazepam (Lorazepam 2 Mg/Ml Vial (Im Use)) 2 mg IM BID PRN PRN Reason: Agitation Stop: 04/30/21 13:45 Lorazepam (Lorazepam 1 Mg Tab) 1 mg PO DAILY@2100 OG Stop: 05/04/21 20:59 Last Admin: 04/17/21 20:19 Dose: 1 mg Documented by: Lorazepam (Lorazepam 2 Mg/Ml Vial (Im Use)) 1 mg IM DAILY PRN PRN Reason: for refusal of PO dose Stop: 04/28/21 13:29 Last Admin: 04/16/21 20:39 Dose: 1 mg Documented by: Magnesium Hydroxide (Magnesium Hydroxide Susp 30 Ml Udc) 30 ml PO DAILY PRN PRN Reason: Constipation Stop: 05/11/21 10:27 Potassium Chloride (Potassium Chloride Pwd 20 Meq Pack) 40 meq PO DAILYBD PRN PRN Reason: hypokalemia, to be given once Stop: 05/09/21 08:58 Sodium Chloride (Sodium Chloride 0.65% Na Soln 45 Ml ([place])) 1 - 2 sprays NA PRN PRN PRN Reason: Nasal Dryness/Congestion Stop: 05/11/21 10:27 Mental Health & Subst Abuse Tx Psychiatrist Name of Psychiatrist: Oniel Negron Psychiatrist's Date of Appointment with Psychiatrist: 03/13/21 Time of Appointment with Psychiatrist: 9:20am Psychiatric Appointment Comment: Zoom *is on waiting list for appt. sooner Therapist Name of Therapist: Unknown Potato Bucker Name of Potato Bucker: Mauri Gunter[facility]) Post Discharge Appointments Primary Care Physician Name Of Family Doctor: Unknown
[2021-04-18] MEDS: FOLIC ACID 1 MG TAB PO SCH (20:49)
[2021-04-18] MEDS: ENOXAPARIN INJ 40 MG/0.4 ML SYR SQ SCH (20:54)
[2021-04-19 07:55] LABS: BUN Creatinine Ratio 10.6 (10-20); Calcium 9.1 mg/dl (8.5-10.1); Creatinine Clr Calc Pharmacy 153.8 ml/min; Est GFR (African American) 129.5 ml/min; Est GFR (Non-African American) 111.7 ml/min; Potassium 4.1 mmol/L (3.5-5.1)
[2021-04-19] MEDS: HALOPERIDOL LACTATE 5 MG/ML 1 ML VIAL IM PRN (10:42)
[2021-04-19] MEDS: haloperidoL 5 MG TAB PO SCH ×2 (10:42→21:45)
--- NOTE | 2021-04-19 11:28 | Psychiatric Progress Note ---
Date of Service April 19, 2021 Impression / Recommendations Impression The patient is a 40 year old with a history of schizoaffective disorder who was admitted for failure of self-care and worsening decompensation at alf. His functioning is poor with inconsistent activity and PO intake despite trials of Ativan, Emsam patch, IM Zyprexa, and now Haldol. He will not take PO meds consistently and is largely mute. Still requiring Lovenox injections. Both inpatient attendings and his outpatient psychiatrist agree that ECT is medically necessary and a court order is being pursued as he is unable to consent. I again notified patient that he has a right to discuss and refuse ECT and he refuses to acknowledge my presence. I agree with Dr. Garces that court ordered ECT is an appropriate and necessary next step in terms of treatment. There is significant evidence for the efficacy of ECT in treating depression for both MDD and bipolar depression as well as strong evidence to support it's use for treatment resistant cases for schizo affective disorder. His ongoing poor nutritional intake with periods of electrolyte abnormalities, weight loss, lack of movement with potential for ongoing muscle weakness/wasting as well as increased risk for DVT, lack of self- care/consequences of poor hygiene and lack of improvement from multiple medication trials are all reasons to pursue ECT at this time. 04/19/21: hypokalemia resolved, continues to lose weight, oral med compliance about 60%. (1) Schizoaffective disorder: 04/19/21: court testimony for 30 min in front of [facility] Judge Ruest answering questions about the patients condition, prognosis, treatment course, rationale for ECT and court order, risks/benefits of ECT. She will deliberated and the hospital consumer attorney forwarded the signed court order for ECT. Dr. Schmitt, Migdalia, and Mili updated. 04/16/21: Haldol 10 mg bid with IM for refusal of PO. Medicine consult appreciated. Referral packet sent to [facility]. 04/13/21: attempt am dose of 5 mg Haldol, continue 10 hs with Ativan. Needs med clearance for ECT. Will hold Lovenox today as some improvement in activity. 04/12/21: continue with haldol and ativan. He was provided with legal paperwork regarding filing for ECT. 04/11/21: continue with haldol and ativan po or IM. Adding mouth checks if he accepts po haldol. Consulted hospitalist for pre-ECT physical exam. He refuses attempts to clip his fingernails. 04/10/21: Add folate supplement. Potassium level improving. Sent out labs for copper and ceruloplasmin. Engaged verbally with multiple staff and briefly watched movie with peers today. Started process for court-ordered ECT. 04/09/21: continue haldol and ativan po or IM. Working on process for consideration for court-ordered ECT. 04/08/21: continue haldol 10mg po or IM and ativan po or IM. Took potassium supplementation in juice yesterday will recheck labs in a few days. Agree with plan to pursue court order for ECT given non-responsiveness to other medication trials so far and his refusal to consistently take any po medication options. 04/07/21: limited PO, remains hypokalemic but overall labs stable 04/06/21: repeat labs in am, consider medicine consult (currently no acute indication for transfer), previous experience was he was less active when prescribed Zyprexa so monitor risks/benefits of Haldol. 04/05/21: attempt to replete K again, Discontinue Emsam patch, pursue court order for ECT when offices reopen after hol. Continue IM Haldol with Ativan trial for now. 04/04/21: Haldol increased to 10 mg PO or IM yesterday with no change overnight, will shift to pm. Will d/c Emsam patch after tomorrow's dose as no sustained benefit and will need to pursue court order for ECT after holiday weekend. 03/31/21: increase haldol to 5 mg po or IM and ativan 1mg po or IM. Continue Emsam patch. 03/30/21: continue haldol 2.5 mg po or IM and ativan 1mg po or IM. Continue Emsam patch. Walked three laps around the unit with encouragement today. 03/29/21: Starting haldol 2.5 mg po or IM and ativan 1mg po or IM for suspected psychosis with negativism, lack of personal care, thought blocking/negative sx and avolition. Continue Emsam patch. Discontinued modafinil. 03/28/21: continue to offer medications. Gave ativan 1mg IM x1 last night after additional episode of spitting. Repeat labwork today showing improvement in nutritional status (albumin and total protein now normal and BUN/CR wnl). 03/27/21: continue to offer medications, he continues to refuse. Continuing to explore ways to involve his extended family or other aspects of care which could incentive his engagement in care. May need to consider if a less sedating antipsychotic medication should be re-trialed. Referral for [facility] has been accepted. 03/26/21: continue current medications, refused modafinil but will try again over next few days. Continue with ativan 1mg BIDM po 03/25/21: start modafinil 50 mg qAM, will monitor carefully for any interactions with MAOI. Discontinued ativan IM for refusal of po. Reducing ativan dosing from TID po to BID po in the afternoon to avoid combining morning stimulant with morning benzo as this would be counterproductive to stimulant trial. 03/24/21: continue current medications. 03/23/21: labwork done today and reviewed no significant changes from prior labwork, still has elevated Cl. Continue with lovenox, emsam patch, and ativan 1 mg po TID (with BID IM for refusal) 03/22/21: labs in am and resume Lovenox given regression past 3 days. 03/18/21: unable to care for self outside of hospital, continue Emsam patch, will not increase as I do not believe he can follow appropriate dietary restrictions at higher doses. 03/17/21: Ativan 1 mg PO TID (inject up to BID for refusal). 03/16/21: resume IM Ativan for refusal of PO Ativan. 03/15/21: Continue current medications. Making referral to [facility] given slow progression and he is still very far from his baseline which will require extended treatment and thus he will be best served by a longer term treatment approach. 03/14/21: Continue with current medications. Reviewed labwork, K+ improved but still signs of poor nutrition. Elevated ALT could be side effect from Emsam patch (occurs in <1/100 - 05/999 pts), will continue to monitor. may be able to consider transition to a po medication if he remains consistent with accepting po medications but for now Emsam patch benefit is felt to outweigh risk of slight ALT elevation. 03/13/21: Continue with current medications. Supports from [employer] will visit tomorrow. Labwork CMP tomorrow morning to ensure correction of hypokalemia. 03/12/21: Continue with current medications. Discussed with treatment team having his alf supports come for a visit and they will visit on . Reviewed his interactions with staff during evening hours/overnight in the chart and continues to show progress with engagement. 03/11/21: Continue with ativan 1 mg BID po, canceled IM as he is agreeing to voluntary po. Given steady improvement over the last 1 week consistent with expected timeline for symptom improvement from Emsam patch he may no longer need longer term care option if improvement persists at this rate. If progress stalls or regression occurs then will reconsider if longer term option for treatment is required. 03/10/21: Reduce ativan to 1 mg BID due to dizziness, low BP and possible fall yesterday. Will discontinue lovenox per his request and since he is now consistently moving around throughout the day and at night, discussed risk of blood clots if he doesn't continue to move around and ambulate frequently which he vocalized understanding of and agreement with. Given improvement in nutritional intake will hold off on rechecking labwork for now, will get repeat labs in 1 week on 03/14. 03/09/21: Reviewed interim progress. Continue Emsam patch and ativan 2mg BID trial-will monitor for excessive sedation. 03/08/21: Ativan 2 mg BID trial. 03/07/21: patient seen by neurology, appreciate input, seems severe vegetative symptoms due to depression though last few doses of Ativan have been more effective than previous. Continue Ativan 1 mg po BID (IM for refusal). Attempt to replete K with powder dissolved in juice. 03/04/21: will explore personal senior care as concerns he will not improve to point he can make meals/meet requirements to return to [facility] during this stay. 03/03/21--continue same. Cannot attempt coadmin with stimulant trial for hypersomnia as contraindicated with MAOI. No medical decompensation that would necessitate referral to medical or seeking court order for ECT. At minimum behaviors are challenging but more appropriate when willing to interact with staff. Need to consider longer term care options given slow progression. 03/02/21--interim care reviewed. Continue EMSAM and Lovenox injection. 03/01/21--Day 9 of Emsam patch. Continuing with behavioral plan to encourage behavioral activation-he was provided with plan with goals of having him come out of his room to eat meals, cooperate with repositioning, stand up when his sheets are changed/or if he prefers to stay in bed until the evening then clean sheets can be provided for him to put on the bed or request help putting on the bed in the evening, and continue independently voiding in his bedside urinal, shower can be started for him but he should be encouraged to get into the shower on his own, encourage him to address basic hygiene by continuing to provide him with easy access to his toothbrush, shampoo, etc. 02/28/21--Day 8 of Emsam patch. Now seeing new pattern of daily food intake which is encouraging. Continues to present with regressed behaviors and refusal to interact during the day. 02/27/21--Continue with Emsam patch. Getting out of bed more in the evenings and eating more. Lack of engagement during the day was volitional-pulling blanket over his head after he saw me enter his room. Also becoming more irritable with staff when he is encouraged to do more on his own for behavioral activation. 02/26/21-Continue with Emsam patch. 304 status granted. Ate last night and i nteracted with staff but no engagement today. 02/25/21--Continues to demonstrate severe depression with neurovegetative symptoms with no engagement with staff. Behavioral plan challenged by finding a reward/incentive that he enjoys. Continuing to encourage behavioral activation. Petitioned for 304 status with hearing scheduled for tomorrow given ongoing symptom burden and need for ongoing treatment. Remains on lovenox for DVT prophylaxis. Continue with Emsam patch. 02/24/21--Remains isolative and will not engage verbally. Encouragingly is attending slightly more to some of his ADLs, will continue with behavioral plan in hopes to continue encouraging behavioral activation although food does not seem to be a good motivator/reward for him. Will continue to think about other possible motivators for him to help encourage increased activity, po intake and engagement with therapeutic milieu. No signs of HTN or other side effects from MAOI at this point. 02/23/21--Continues to demonstrate neurovegetative symptoms of depression, remaining in bed most of the day but sometimes more engagement in the evenings. Will implement behavioral plan to encourage behavioral activation to treat n eurovegetative symptoms in conjunction with Emsam as well as to encourage increased participation with ADLs. Nursing to provide him with tools to help him eat and promote good hygiene (brining in meals, supplies to wash up) and then if he does this independently will bring in ice cream or chips as reward to see if this helps with activation and increased po intake. 02/22/21--neurologic work up with EEG and brain MRI unremarkable, continue Emsam trial. 02/21/21--complex differential--depression with psychotic features in a patient with bipolar disorder most likely, certainly not typcial catatonia. No hx of hyperphagia or hypersexuality known that would suggest Kleine-Hess syndrome. Will proceed with Emsam patch 6 mg trial as only means to administer antidepressant. Will check with an ECT facility to determine if can treat patient if pursue a court order (will await emsam trial first). MRI brain (patient will need various x rays first as can't answer screening questions, no hx of pacemaker on chart). bedside EEG to rule out status epilepticus. 02/19/21--non-formulary request for Emsam patch. Hasn't taken antidepressants for at least 6 weeks. Would reconsider current med doses when this becomes available. without antidepressant he will continue to decompensate medically and is at significant risk of further decompensation. 02/17/21--lytes, Bun/Cr improved; given sleep phase shift desirable to shift antipsychotic to pm meal with IM Zyprexa for refusal. Bedside EEG likely poor quality/low yeild but consider if no improvement. 02/16/21--Reviewed care by Dr. Garces in italics. will d/c IM Ativan in favor of Zyprexa IM for failure to take Latuda. Does take Lorazepam prn PO, adjust dose and frequency and monitor use. Will repeat labs and PO intake so variable and hard to track. 02/09/2021--admitted to [facility]. Ativan 2mg SL TID ordered. Track Is&Os. Vitals BID. 02/10/2021--continue with ativan 2mg TID SL. Showing significant improving in catatonic symptoms since ativan trial last night. If he continues to walk around no need for DVT prophylaxis. Will consider if 302 needs to be converted to 303 based on progress today. 02/11/2021--continue with scheduled ativan. Less engagement today but still eating and drinking. Plan for likely 303 given his inability/reluctance to engage in treatment. Reviewed outside records. 02/12/2021--continues to refuse ativan today and won't engage with anyone nor leave his bed except to use the bathroom and to eat at night. Given some movement in the evening and to the bathroom he doesn't require DVT prophylaxis at this time but this remains a concern should he clinically worsen and will continue to monitor his nutritional and medical status closely. 02/13/2021--placed on 303 status due to ongoing decompensation due to catatonia including refusal of medication, not eating, not drinking, not communicating with anyone and lying in bed all day. Once catatonia begins to improve with treatment will aim to start latuda which helped previously. [place] to require medications over objection for ativan to treat catatonia. If catatonia does not respond quickly to ativan then will consider if DVT prophylaxis should be initiated. 02/14/2021--no significant change in behaviors with additional of scheduled ativan 2 mg BID as medication over objection. Given concern for skin breakdown consult was placed for wound nurse. Given concern for possible DVT and after discussion with hospitalist will begin lovenox 40mg subQ daily. David was able to vocalize consent for this as he remains mute and unable/unwilling to engage but explained the risks, benefits, alternatives and rationale for lovenox and that we will be offering this to him. 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 02/15/2021--Have ruled out catatonia given inconsistent response to ativan trial, multiple observed examples of volitional movement immediately following periods of patient lying in bed and mute. Subsequent catatonia scales have been negative and patient feels that his symptoms represent withdrawn features of anxiety and depression. Given bipolar depression with neurovegetative features will start latuda. Encouragingly he is eating more and drinking more and got out of bed twice last night. Risk Factors Assessment Male: Yes : Yes Do You Have Access To A Gun?: No (in supportive living enviornment, pt unable to answer ) Mental Health Diagnoses: Yes Previous Psychiatric Hospitalization: Yes Protective Factors Assessment Employed: No Interval History Identifying Information 40 yo man with history of catatonia, depression, bipolar disorder vs schizophrenia admitted due to concern for decompensation with failure of self- care at [facility]. Admitted on 302, now 304. Chief Complaint "hi....(long pause).....OK" Review of Systems Sleep Information Total Hours of Sleep: 5 Meal Information Percent Meal Consumed - Breakfast: 0 Percent Meal Consumed - Lunch: 0 Percent Meal Consumed - Dinner: 100 Nutrition Comment: pt. OOB & had juice and 2 bowls of cereal Subjective Subjective Patient was seen & assessed and interval progress reviewed with treatment team. Weight shows down another 6.6 lbs this week. He ate at 8 pm last night, has discarded juice containers at bedside. Cooperative with labs this am which were improved. Refused his Lovenox injection. Physical Exam Psychiatric made eye contact briefly, 2 one-word vocalizations, re-reviewed plan for hearing and his right to refuse ECT, reviewed risks of memory loss and cardiac with anesthesia. Vital Signs (Past 24 Hours) Last Vital Signs Temp 37.6 C H 04/18/21 20:00 Pulse 87 04/19/21 06:00 Resp 14 04/19/21 06:00 BP 105/70 04/19/21 06:00 Pulse Ox 94 04/03/21 20:37 Results & Data ([facility]) Laboratory Results Laboratory Results - last 24 hr 04/19/21 06:53 Sodium 141 Potassium 4.1 Chloride 111 H Carbon Dioxide 24 Anion Gap 6.0 BUN 9 Creatinine 0.80 Est Cr Clr Drug Dosing 153.8 Est GFR ( Amer) 129.5 Est GFR (Non-Af Amer) 111.7 BUN/Creatinine Ratio 10.6 Glucose 111 H Calcium 9.1 Current Inpatient Medications Current Inpatient Medications: Current Inpatient Medications Acetaminophen (Acetaminophen 325 Mg Tab) 650 mg PO Q4H PRN PRN Reason: Headache or Minor Fever Stop: 05/11/21 10:27 Last Admin: 03/16/21 10:34 Dose: 325 mg Documented by: Al Hydrox/Mg Hydrox/Simethicone (Aluminum/Magnesium Susp 30 Ml Udc) 30 ml PO Q4H PRN PRN Reason: GI Upset Stop: 05/11/21 10:27 Benztropine Mesylate (Benztropine Mesylate 1 Mg Tab) 1 mg PO Q6 PRN PRN Reason: Muscle Spasm Stop: 05/03/21 08:40 Bismuth Subsalicylate (Bismuth Subsalicylate Liqd 236 Ml) 15 ml PO PRN PRN PRN Reason: Loose Stool Stop: 05/11/21 10:27 Diphenhydramine HCl (Diphenhydramine 50 Mg/Ml Vial) 50 mg IM BID PRN PRN Reason: Agitation Stop: 04/30/21 13:45 Enoxaparin Sodium (Enoxaparin Inj 40 Mg/0.4 Ml Syr) 40 mg SQ DAILY@[facility] Stop: 05/05/21 20:59 Last Admin: 04/18/21 20:54 Dose: Not Given Documented by: Folic Acid (Folic Acid 1 Mg Tab) 1 mg PO [facility] Stop: 05/10/21 21:59 Last Admin: 04/18/21 20:49 Dose: 1 mg Documented by: Haloperidol (Haloperidol 5 Mg Tab) 10 mg PO DAILY@[facility] Stop: 05/04/21 20:59 Last Admin: 04/18/21 20:49 Dose: 10 mg Documented by: Haloperidol (Haloperidol 5 Mg Tab) 10 mg PO [facility] Stop: 05/17/21 08:59 Last Admin: 04/19/21 10:42 Dose: Not Given Documented by: Haloperidol Lactate (Haloperidol Lactate 5 Mg/Ml 1 Ml Vial) 5 mg IM BID PRN PRN Reason: Agitation Stop: 04/30/21 13:45 Haloperidol Lactate (Haloperidol Lactate 5 Mg/Ml 1 Ml Vial) 10 mg IM BID PRN PRN Reason: for refusal of PO Stop: 05/14/21 09:03 Last Admin: 04/19/21 10:42 Dose: 10 mg Documented by: Lorazepam (Lorazepam 1 Mg Tab) 1 mg PO Q6 PRN PRN Reason: Anxiety/Agitation Stop: 05/11/21 08:14 Last Admin: 04/04/21 20:52 Dose: 1 mg Documented by: Lorazepam (Lorazepam 2 Mg/Ml Vial (Im Use)) 2 mg IM BID PRN PRN Reason: Agitation Stop: 04/30/21 13:45 Magnesium Hydroxide (Magnesium Hydroxide Susp 30 Ml Udc) 30 ml PO DAILY PRN PRN Reason: Constipation Stop: 05/11/21 10:27 Potassium Chloride (Potassium Chloride Pwd 20 Meq Pack) 40 meq PO DAILYBD PRN PRN Reason: hypokalemia, to be given once Stop: 05/09/21 08:58 Sodium Chloride (Sodium Chloride 0.65% Na Soln 45 Ml ([place])) 1 - 2 sprays NA PRN PRN PRN Reason: Nasal Dryness/Congestion Stop: 05/11/21 10:27 Mental Health & Subst Abuse Tx Psychiatrist Name of Psychiatrist: Oniel Negron Psychiatrist's Date of Appointment with Psychiatrist: 03/13/21 Time of Appointment with Psychiatrist: 9:20am Psychiatric Appointment Comment: Zoom *is on waiting list for appt. sooner Therapist Name of Therapist: Unknown Manager Client Name of Manager Client: [facility] ([facility]) Post Discharge Appointments Primary Care Physician Name Of Family Doctor: Unknown
--- NOTE | 2021-04-19 12:28 | Communication Note ---
Date of Service: April 19, 2021 updated patient on the outcome of the hearing. Initially asked if he had any questions re: the hearing or my testimony and he indicated no and that he was overwhelmed with people trying to help, "it's all too much". He could not verbalize why. He then became mute again and I did tell him the order was granted but that acceptance to [facility] was pending so no immediate change in his treatment. He nodded understanding and laid back down. As he has indicated last night that he is tired of injections, we will do a trial of just offering PO Haldol and the Lovenox. If he regresses will need to resume injections. If taking oral can attempt to titrate hs dose at discretion of Dr. stewart.
[2021-04-19] MEDS: ENOXAPARIN INJ 40 MG/0.4 ML SYR SQ SCH (21:36)
[2021-04-19] MEDS: FOLIC ACID 1 MG TAB PO SCH (21:45)
[2021-04-20] MEDS: haloperidoL 5 MG TAB PO SCH ×2 (09:33→20:25)
--- NOTE | 2021-04-20 15:18 | Psychiatric Progress Note ---
Date of Service April 20, 2021 Impression / Recommendations Impression The patient is a 40 year old with a history of schizoaffective disorder who was admitted for failure of self-care and [facility] decompensation [facility] jail. His functioning is poor with inconsistent activity and PO intake despite trials of Ativan, Emsam patch, IM Zyprexa, and now Haldol. He will not take PO meds consistently and is largely mute. Still requiring Lovenox injections. Both inpatient attendings and his outpatient psychiatrist agree that ECT is medically necessary and a court order has been granted. Court ordered ECT is an appropriate and necessary next step in terms of treatmen t. There is significant evidence for the efficacy of ECT in treating depression for both MDD and bipolar depression as well as strong evidence to support it's use for treatment resistant cases for schizoaffective disorder. His ongoing poor nutritional intake with periods of electrolyte abnormalities, weight loss, lack of movement with potential for ongoing muscle weakness/wasting as well as increased risk for DVT, lack of self-care/consequences of poor hygiene and lack of improvement from multiple medication trials are all reasons to pursue ECT at this time. 04/20/21: getting out of bed slightly more consistently, continues to be largely mute, refusing oral medications today. Plan: reviewed interval notes from Dr. Arevalo and reviewed court-order for ECT. (1) Schizoaffective disorder: 04/20/21: continue current medication of haldol 10 mg BID po, not doing IM for refusal. Awaiting response from ECT referral. If he can consistently show that he is moving and walking for three days in a row then we can stop the lovenox. 04/19/21: court testimony for 30 min in front of [facility] Judge Ruest answering questions about the patients condition, prognosis, treatment course, rationale for ECT and court order, risks/benefits of ECT. She will deliberated and the hospital contract attorney forwarded the signed court order for ECT. Dr. Schmitt, Migdalia, and Mili updated. 04/16/21: Haldol 10 mg bid with IM for refusal of PO. Medicine consult appreciated. Referral packet sent to [facility]. 04/13/21: attempt am dose of 5 mg Haldol, continue 10 hs with Ativan. Needs med clearance for ECT. Will hold Lovenox today as some improvement in activity. 04/12/21: continue with haldol and ativan. He was provided with legal paperwork regarding filing for ECT. 04/11/21: continue with haldol and ativan po or IM. Adding mouth checks if he accepts po haldol. Consulted hospitalist for pre-ECT physical exam. He refuses attempts to clip his fingernails. 04/10/21: Add folate supplement. Potassium level improving. Sent out labs for copper and ceruloplasmin. Engaged verbally with multiple staff and briefly watched movie with peers today. Started process for court-ordered ECT. 04/09/21: continue haldol and ativan po or IM. Working on process for consideration for court-ordered ECT. 04/08/21: continue haldol 10mg po or IM and ativan po or IM. Took potassium supplementation in juice yesterday will recheck labs in a few days. Agree with plan to pursue court order for ECT given non-responsiveness to other medication trials so far and his refusal to consistently take any po medication options. 04/07/21: limited PO, remains hypokalemic but overall labs stable 04/06/21: repeat labs in am, consider medicine consult (currently no acute indication for transfer), previous experience was he was less active when prescribed Zyprexa so monitor risks/benefits of Haldol. 04/05/21: attempt to replete K again, Discontinue Emsam patch, pursue court order for ECT when offices reopen after holiday. Continue IM Haldol with Ativan trial for now. 04/04/21: Haldol increased to 10 mg PO or IM yesterday with no change overnight, will shift to pm. Will d/c Emsam patch after tomorrow's dose as no sustained benefit and will need to pursue court order for ECT after holiday weekend. 03/31/21: increase haldol to 5 mg po or IM and ativan 1mg po or IM. Continue Emsam patch. 03/30/21: continue haldol 2.5 mg po or IM and ativan 1mg po or IM. Continue Emsam patch. Walked three laps around the unit with encouragement today. 03/29/21: Starting haldol 2.5 mg po or IM and ativan 1mg po or IM for suspected psychosis with negativism, lack of personal care, thought blocking/negative sx and avolition. Continue Emsam patch. Discontinued modafinil. 03/28/21: continue to offer medications. Gave ativan 1mg IM x1 last night after additional episode of spitting. Repeat labwork today showing improvement in nutritional status (albumin and total protein now normal and BUN/CR wnl). 03/27/21: continue to offer medications, he continues to refuse. Continuing to explore ways to involve his extended family or other aspects of care which could incentive his engagement in care. May need to consider if a less sedating antipsychotic medication should be re-trialed. Referral for [facility] has been accepted. 03/26/21: continue current medications, refused modafinil but will try again over next few days. Continue with ativan 1mg BIDM po 03/25/21: start modafinil 50 mg qAM, will monitor carefully for any interactions with MAOI. Discontinued ativan IM for refusal of po. Reducing ativan dosing from TID po to BID po in the afternoon to avoid combining morning stimulant with morning benzo as this would be counterproductive to stimulant trial. 03/24/21: continue current medications. 03/23/21: labwork done today and reviewed no significant changes from prior labwork, still has elevated Cl. Continue with lovenox, emsam patch, and ativan 1 mg po TID (with BID IM for refusal) 03/22/21: labs in am and resume Lovenox given regression past 3 days. 03/18/21: unable to care for self outside of hospital, continue Emsam patch, will not increase as I do not believe he can follow appropriate dietary restrictions at higher doses. 03/17/21: Ativan 1 mg PO TID (inject up to BID for refusal). 03/16/21: resume IM Ativan for refusal of PO Ativan. 03/15/21: Continue current medications. Making referral to [facility] given slow progression and he is still very far from his baseline which will require extended treatment and thus he will be best served by a longer term treatment approach. 03/14/21: Continue with current medications. Reviewed labwork, K+ improved but still signs of poor nutrition. Elevated ALT could be side effect from Emsam patch (occurs in <1/100 - 05/999 pts), will continue to monitor. may be able to consider transition to a po medication if he remains consistent with accepting po medications but for now Emsam patch benefit is felt to outweigh risk of slight ALT elevation. 03/13/21: Continue with current medications. Supports from [facility] will visit tomorrow. Labwork CMP tomorrow morning to ensure correction of hypokalemia. 03/12/21: Continue with current medications. Discussed with treatment team having his jail supports come for a visit and they will visit on . Reviewed his interactions with staff during evening hours/overnight in the chart and continues to show progress with engagement. 03/11/21: Continue with ativan 1 mg BID po, canceled IM as he is agreeing to voluntary po. Given steady improvement over the last 1 week consistent with expected timeline for symptom improvement from Emsam patch he may no longer need longer term care option if improvement persists at this rate. If progress stalls or regression occurs then will reconsider if longer term option for treatment is required. 03/10/21: Reduce ativan to 1 mg BID due to dizziness, low BP and possible fall yesterday. Will discontinue lovenox per his request and since he is now consistently moving around throughout the day and at night, discussed risk of blood clots if he doesn't continue to move around and ambulate frequently which he vocalized understanding of and agreement with. Given improvement in nutritional intake will hold off on rechecking labwork for now, will get repeat labs in 1 week on 03/14. 03/09/21: Reviewed interim progress. Continue Emsam patch and ativan 2mg BID trial-will monitor for excessive sedation. 03/08/21: Ativan 2 mg BID trial. 03/07/21: patient seen by neurology, appreciate input, seems severe vegetative symptoms due to depression though last few doses of Ativan have been more effective than previous. Continue Ativan 1 mg po BID (IM for refusal). Attempt to replete K with powder dissolved in juice. 03/04/21: will explore personal fpc as concerns he will not improve to point he can make meals/meet requirements to return to [facility] during this stay. 03/03/21--continue same. Cannot attempt coadmin with stimulant trial for hypersomnia as contraindicated with MAOI. No medical decompensation that would necessitate referral to medical or seeking court order for ECT. At minimum behaviors are challenging but more appropriate when willing to interact with staff. Need to consider longer term care options given slow progression. 03/02/21--interim care reviewed. Continue EMSAM and Lovenox injection. 03/01/21--Day 9 of Emsam patch. Continuing with behavioral plan to encourage behavioral activation-he was provided with plan with goals of having him come out of his room to eat meals, cooperate with repositioning, stand up when his sheets are changed/or if he prefers to stay in bed until the evening then clean sheets can be provided for him to put on the bed or request help putting on the bed in the evening, and continue independently voiding in his bedside urinal, shower can be started for him but he should be encouraged to get into the shower on his own, encourage him to address basic hygiene by continuing to provide him with easy access to his toothbrush, shampoo, etc. 02/28/21--Day 8 of Emsam patch. Now seeing new pattern of daily food intake which is encouraging. Continues to present with regressed behaviors and refusal to interact during the day. 02/27/21--Continue with Emsam patch. Getting out of bed more in the evenings and eating more. Lack of engagement during the day was volitional-pulling blanket over his head after he saw me enter his room. Also becoming more irritable with staff when he is encouraged to do more on his own for behavioral activation. 02/26/21-Continue with Emsam patch. 304 status granted. Ate last night and interacted with staff but no engagement today. 02/25/21--Continues to demonstrate severe depression with neurovegetative symptoms with no engagement with staff. Behavioral plan challenged by finding a reward/incentive that he enjoys. Continuing to encourage behavioral activation. Petitioned for 304 status with hearing scheduled for tomorrow given ongoing symptom burden and need for ongoing treatment. Remains on lovenox for DVT prophylaxis. Continue with Emsam patch. 02/24/21--Remains isolative and will not engage verbally. Encouragingly is attending slightly more to some of his ADLs, will continue with behavioral plan in hopes to continue encouraging behavioral activation although food does not seem to be a good motivator/reward for him. Will continue to think about other possible motivators for him to help encourage increased activity, po intake and engagement with therapeutic milieu. No signs of HTN or other side effects from MAOI at this point. 02/23/21--Continues to demonstrate neurovegetative symptoms of depression, remaining in bed most of the day but sometimes more engagement in the evenings. Will implement behavioral plan to encourage behavioral activation to treat neurovegetative symptoms in conjunction with Emsam as well as to encourage increased participation with ADLs. Nursing to provide him with tools to help him eat and promote good hygiene (brining in meals, supplies to wash up) and then if he does this independently will bring in ice cream or chips as reward to see if this helps with activation and increased po intake. 02/22/21--neurologic work up with EEG and brain MRI unremarkable, continue Emsam trial. 02/21/21--complex differential--depression with psychotic features in a patient with bipolar disorder most likely, certainly not typcial catatonia. No hx of hyperphagia or hypersexuality known that would suggest Kleine-Hess syndrome. Will proceed with Emsam patch 6 mg trial as only means to administer antidepressant. Will check with an ECT facility to determine if can treat patient if pursue a court order (will await emsam trial first). MRI brain (patient will need various x rays first as can't answer screening questions, no hx of pacemaker on chart). bedside EEG to rule out status epilepticus. 02/19/21--non-formulary request for Emsam patch. Hasn't taken antidepressants for at least 6 weeks. Would reconsider current med doses when this becomes avail able. without antidepressant he will continue to decompensate medically and is at significant risk of further decompensation. 02/17/21--lytes, Bun/Cr improved; given sleep phase shift desirable to shift antipsychotic to pm meal with IM Zyprexa for refusal. Bedside EEG likely poor quality/low yeild but consider if no improvement. 02/16/21--Reviewed care by Dr. Garces in italics. will d/c IM Ativan in favor of Zyprexa IM for failure to take Latuda. Does take Lorazepam prn PO, adjust dose and frequency and monitor use. Will repeat labs and PO intake so variable and hard to track. 02/09/2021--admitted to [facility]. Ativan 2mg SL TID ordered. Track Is&Os. Vitals BID. 02/10/2021--continue with ativan 2mg TID SL. Showing significant improving in catatonic symptoms since ativan trial last night. If he continues to walk around no need for DVT prophylaxis. Will consider if 302 needs to be converted to 303 based on progress today. 02/11/2021--continue with scheduled ativan. Less engagement today but still eating and drinking. Plan for likely 303 given his inability/reluctance to engage in treatment. Reviewed outside records. 02/12/2021--continues to refuse ativan today and won't engage with anyone nor leave his bed except to use the bathroom and to eat at night. Given some movement in the evening and to the bathroom he doesn't require DVT prophylaxis at this time but this remains a concern should he clinically worsen and will continue to monitor his nutritional and medical status closely. 02/13/2021--placed on 303 status due to ongoing decompensation due to catatonia including refusal of medication, not eating, not drinking, not communicating with anyone and lying in bed all day. Once catatonia begins to improve with treatment will aim to start latuda which helped previously. [place] to require medications over objection for ativan to treat catatonia. If catatonia does not respond quickly to ativan then will consider if DVT prophylaxis should be initiated. 02/14/2021--no significant change in behaviors with additional of scheduled ativan 2 mg BID as medication over objection. Given concern for skin breakdown consult was placed for wound nurse. Given concern for possible DVT and after discussion with hospitalist will begin lovenox 40mg subQ daily. David was able to vocalize consent for this as he remains mute and unable/unwilling to engage but explained the risks, benefits, alternatives and rationale for lovenox and that we will be offering this to him. 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 02/15/2021--Have ruled out catatonia given inconsistent response to ativan trial, multiple observed examples of volitional movement immediately following periods of patient lying in bed and mute. Subsequent catatonia scales have been negative and patient feels that his symptoms represent withdrawn features of anxiety and depression. Given bipolar depression with neurovegetative features will start latuda. Encouragingly he is eating more and drinking more and got out of bed twice last night. Risk Factors Assessment Male: Yes : Yes Do You Have Access To A Gun?: No (in supportive living enviornment, pt unable to answer ) Mental Health Diagnoses: Yes Previous Psychiatric Hospitalization: Yes Protective Factors Assessment Employed: No Interval History Identifying Information 40 yo man with history of catatonia, depression, bipolar disorder vs schizophrenia admitted due to concern for decompensation with failure of self- care at [facility]. Admitted on 302, now 304. Chief Complaint "Can I have a spoon?". Review of Systems Sleep Information Total Hours of Sleep: 2.75 Sleep Comments: pt remained in bed and appeared to be asleep @0100 and thereafter. pt on q-15 minute checks Meal Information Percent Meal Consumed - Breakfast: 0 Percent Meal Consumed - Lunch: 100 Percent Meal Consumed - Dinner: 50 Nutrition Comment: pt. OOB & had juice and 2 bowls of cereal Subjective Subjective Patient was seen & assessed and interval progress reviewed with treatment team nursing and social work. Refused oral haldol last night and today. Ate dinner last night. Was observed to get out of bed and walk into the main room for lunch where he asked for utensils and then ate at a table by himself. Later when I attempted to meet with him he had the blanket pulled up to his nose and would not communicate. Physical Exam Psychiatric Orientation: alert; + uncooperative Apperance: + disheveled Eye Contact: + fair eye contact Motor Behavior: + psychomotor retardation Speech: + mute (briefly asked once for utensil ) Affect: + flat affect Cognition: + attention not intact Estimated Intelligence: consistent with education level Insight: + severely impaired insight Judgement: + severely impaired judgement Vital Signs (Past 24 Hours) Last Vital Signs Temp 36.6 C 04/19/21 20:25 Pulse 102 H 04/20/21 06:00 Resp 18 04/20/21 06:00 BP 124/80 04/20/21 06:00 Pulse Ox 94 04/03/21 20:37 Results & Data ([facility]) Current Inpatient Medications Current Inpatient Medications: Current Inpatient Medications Acetaminophen (Acetaminophen 325 Mg Tab) 650 mg PO Q4H PRN PRN Reason: Headache or Minor Fever Stop: 05/11/21 10:27 Last Admin: 03/16/21 10:34 Dose: 325 mg Documented by: Al Hydrox/Mg Hydrox/Simethicone (Aluminum/Magnesium Susp 30 Ml Udc) 30 ml PO Q4H PRN PRN Reason: GI Upset Stop: 05/11/21 10:27 Benztropine Mesylate (Benztropine Mesylate 1 Mg Tab) 1 mg PO Q6 PRN PRN Reason: Muscle Spasm Stop: 05/03/21 08:40 Bismuth Subsalicylate (Bismuth Subsalicylate Liqd 236 Ml) 15 ml PO PRN PRN PRN Reason: Loose Stool Stop: 05/11/21 10:27 Diphenhydramine HCl (Diphenhydramine 50 Mg/Ml Vial) 50 mg IM BID PRN PRN Reason: Agitation Stop: 04/30/21 13:45 Enoxaparin Sodium (Enoxaparin Inj 40 Mg/0.4 Ml Syr) 40 mg SQ DAILY@2100 [facility] Stop: 05/05/21 20:59 Last Admin: 04/19/21 21:36 Dose: 40 mg Documented by: Folic Acid (Folic Acid 1 Mg Tab) [address] [facility] Stop: 05/10/21 21:59 Last Admin: 04/19/21 21:45 Dose: Not Given Documented by: Haloperidol (Haloperidol 5 Mg Tab) 10 mg PO DAILY@2100 O[facility] Stop: 05/04/21 20:59 Last Admin: 04/19/21 21:45 Dose: Not Given Documented by: Haloperidol (Haloperidol 5 Mg Tab) 10 mg PO QAM [facility] Stop: 05/17/21 08:59 Last Admin: 04/20/21 09:33 Dose: Not Given Documented by: Haloperidol Lactate (Haloperidol Lactate 5 Mg/Ml 1 Ml Vial) 5 mg IM BID PRN PRN Reason: Agitation Stop: 04/30/21 13:45 Haloperidol Lactate (Haloperidol Lactate 5 Mg/Ml 1 Ml Vial) 10 mg IM BID PRN PRN Reason: for refusal of PO Stop: 05/14/21 09:03 Last Admin: 04/19/21 10:42 Dose: 10 mg Documented by: Lorazepam (Lorazepam 1 Mg Tab) 1 mg PO Q6 PRN PRN Reason: Anxiety/Agitation Stop: 05/11/21 08:14 Last Admin: 04/04/21 20:52 Dose: 1 mg Documented by: Lorazepam (Lorazepam 2 Mg/Ml Vial (Im Use)) 2 mg IM BID PRN PRN Reason: Agitation Stop: 04/30/21 13:45 Magnesium Hydroxide (Magnesium Hydroxide Susp 30 Ml Udc) 30 ml PO DAILY PRN PRN Reason: Constipation Stop: 05/11/21 10:27 Potassium Chloride (Potassium Chloride Pwd 20 Meq Pack) 40 meq PO DAILYBD PRN PRN Reason: hypokalemia, to be given once Stop: 05/09/21 08:58 Sodium Chloride (Sodium Chloride 0.65% Na Soln 45 Ml ([place])) 1 - 2 sprays NA PRN PRN PRN Reason: Nasal Dryness/Congestion Stop: 05/11/21 10:27 Mental Health & Subst Abuse Tx Psychiatrist Name of Psychiatrist: Oniel Negron Psychiatrist's Date of Appointment with Psychiatrist: 03/13/21 Time of Appointment with Psychiatrist: 9:20am Psychiatric Appointment Comment: Zoom *is on waiting list for appt. sooner Therapist Name of Therapist: Unknown Vaccine Specialist Name of Vaccine Specialist: Mauri ([facility]) Post Discharge Appointments Primary Care Physician Name Of Family Doctor: Unknown
[2021-04-20] MEDS: ENOXAPARIN INJ 40 MG/0.4 ML SYR SQ SCH (20:24)
[2021-04-20] MEDS: FOLIC ACID 1 MG TAB PO SCH (20:25)
[2021-04-21] MEDS: haloperidoL 5 MG TAB PO SCH ×2 (09:09→20:29)
--- NOTE | 2021-04-21 16:37 | Psychiatric Progress Note ---
Date of Service April 21, 2021 Impression / Recommendations Impression The patient is a 40 year old with a history of schizoaffective disorder who was admitted for failure of self-care and worsening decompensation at correction. His functioning is poor with inconsistent activity and PO intake despite trials of Ativan, Emsam patch, IM Zyprexa, and now Haldol. He will not take PO meds consistently and is largely mute. Still requiring Lovenox injections. Both inpatient attendings and his outpatient psychiatrist agree that ECT is medically necessary and a court order has been granted. Court ordered ECT is an appropriate and necessary next step in terms of treatmen t. There is significant evidence for the efficacy of ECT in treating depression for both MDD and bipolar depression as well as strong evidence to support it's use for treatment resistant cases for schizoaffective disorder. His ongoing poor nutritional intake with periods of electrolyte abnormalities, weight loss, lack of movement with potential for ongoing muscle weakness/wasting as well as increased risk for DVT, lack of self-care/consequences of poor hygiene and lack of improvement from multiple medication trials are all reasons to pursue ECT at this time. MNPR due to psychiatric condition with ongoing poor hygiene and limited cooperation requiring bed changes with urination and paranoia. 04/21/21: got out of bed again yesterday, continues to be largely mute, accepted oral medications today. Plan: reviewed vital signs-allowed orthostatics for first time and there were normal and reassuring. (1) Schizoaffective disorder: 04/21/21: continue haldol 10mg BID po and lovenox and folic acid. Day 1 of increased movement. 04/20/21: continue current medication of haldol 10 mg BID po, not doing IM for refusal. Awaiting response from ECT referral. If he can consistently show that he is moving and walking for three days in a row then we can stop the lovenox. 04/19/21: court testimony for 30 min in front of [facility] Judge Ruest answering questions about the patients condition, prognosis, treatment course, rationale for ECT and court order, risks/benefits of ECT. She will deliberated and the hospital mergers and acquisitions attorney forwarded the signed court order for ECT. Dr. Schmitt, Migdalia, and Mili updated. 04/16/21: Haldol 10 mg bid with IM for refusal of PO. Medicine consult appreciated. Referral packet sent to [facility]. 04/13/21: attempt am dose of 5 mg Haldol, continue 10 hs with Ativan. Needs med clearance for ECT. Will hold Lovenox today as some improvement in activity. 04/12/21: continue with haldol and ativan. He was provided with legal paperwork regarding filing for ECT. 04/11/21: continue with haldol and ativan po or IM. Adding mouth checks if he accepts po haldol. Consulted hospitalist for pre-ECT physical exam. He refuses attempts to clip his fingernails. 04/10/21: Add folate supplement. Potassium level improving. Sent out labs for copper and ceruloplasmin. Engaged verbally with multiple staff and briefly watched movie with peers today. Started process for court-ordered ECT. 04/09/21: continue haldol and ativan po or IM. Working on process for consideration for court-ordered ECT. 04/08/21: continue haldol 10mg po or IM and ativan po or IM. Took potassium supplementation in juice yesterday will recheck labs in a few days. Agree with plan to pursue court order for ECT given non-responsiveness to other medication trials so far and his refusal to consistently take any po medication options. 04/07/21: limited PO, remains hypokalemic but overall labs stable 04/06/21: repeat labs in am, consider medicine consult (currently no acute indication for transfer), previous experience was he was less active when prescribed Zyprexa so monitor risks/benefits of Haldol. 04/05/21: attempt to replete K again, Discontinue Emsam patch, pursue court order for ECT when offices reopen after hol. Continue IM Haldol with Ativan trial for now. 04/04/21: Haldol increased to 10 mg PO or IM yesterday with no change overnight, will shift to pm. Will d/c Emsam patch after tomorrow's dose as no sustained benefit and will need to pursue court order for ECT after holiday weekend. 03/31/21: increase haldol to 5 mg po or IM and ativan 1mg po or IM. Continue Emsam patch. 03/30/21: continue haldol 2.5 mg po or IM and ativan 1mg po or IM. Continue Emsam patch. Walked three laps around the unit with encouragement today. 03/29/21: Starting haldol 2.5 mg po or IM and ativan 1mg po or IM for suspected psychosis with negativism, lack of personal care, thought blocking/negative sx and avolition. Continue Emsam patch. Discontinued modafinil. 03/28/21: continue to offer medications. Gave ativan 1mg IM x1 last night after additional episode of spitting. Repeat labwork today showing improvement in nutritional status (albumin and total protein now normal and BUN/CR wnl). 03/27/21: continue to offer medications, he continues to refuse. Continuing to explore ways to involve his extended family or other aspects of care which could incentive his engagement in care. May need to consider if a less sedating antipsychotic medication should be re-trialed. Referral for [facility] has been accepted. 03/26/21: continue current medications, refused modafinil but will try again over next few days. Continue with ativan 1mg BIDM po 03/25/21: start modafinil 50 mg qAM, will monitor carefully for any interactions with MAOI. Discontinued ativan IM for refusal of po. Reducing ativan dosing from TID po to BID po in the afternoon to avoid combining morning stimulant with morning benzo as this would be counterproductive to stimulant trial. 03/24/21: continue current medications. 03/23/21: labwork done today and reviewed no significant changes from prior labwork, still has elevated Cl. Continue with lovenox, emsam patch, and ativan 1 mg po TID (with BID IM for refusal) 03/22/21: labs in am and resume Lovenox given regression past 3 days. 03/18/21: unable to care for self outside of hospital, continue Emsam patch, will not increase as I do not believe he can follow appropriate dietary restrictions at higher doses. 03/17/21: Ativan 1 mg PO TID (inject up to BID for refusal). 03/16/21: resume IM Ativan for refusal of PO Ativan. 03/15/21: Continue current medications. Making referral to [facility] given slow progression and he is still very far from his baseline which will require extended treatment and thus he will be best served by a longer term treatment approach. 03/14/21: Continue with current medications. Reviewed labwork, K+ improved but still signs of poor nutrition. Elevated ALT could be side effect from Emsam patch (occurs in <1/100 - 05/999 pts), will continue to monitor. may be able to consider transition to a po medication if he remains consistent with accepting po medications but for now Emsam patch benefit is felt to outweigh risk of slight ALT elevation. 03/13/21: Continue with current medications. Supports from [place] will visit tomorrow. Labwork CMP tomorrow morning to ensure correction of hypokalemia. 03/12/21: Continue with current medications. Discussed with treatment team having his correction supports come for a visit and they will visit on . Reviewed his interactions with staff during evening hours/overnight in the chart and continues to show progress with engagement. 03/11/21: Continue with ativan 1 mg BID po, canceled IM as he is agreeing to voluntary po. Given steady improvement over the last 1 week consistent with expected timeline for symptom improvement from Emsam patch he may no longer need longer term care option if improvement persists at this rate. If progress stalls or regression occurs then will reconsider if longer term option for treatment is required. 03/10/21: Reduce ativan to 1 mg BID due to dizziness, low BP and possible fall yesterday. Will discontinue lovenox per his request and since he is now consistently moving around throughout the day and at night, discussed risk of blood clots if he doesn't continue to move around and ambulate frequently which he vocalized understanding of and agreement with. Given improvement in nutritional intake will hold off on rechecking labwork for now, will get repeat labs in 1 week on 03/14. 03/09/21: Reviewed interim progress. Continue Emsam patch and ativan 2mg BID trial-will monitor for excessive sedation. 03/08/21: Ativan 2 mg BID trial. 03/07/21: patient seen by neurology, appreciate input, seems severe vegetative symptoms due to depression though last few doses of Ativan have been more effective than previous. Continue Ativan 1 mg po BID (IM for refusal). Attempt to replete K with powder dissolved in juice. 03/04/21: will explore personal half-way as concerns he will not improve to point he can make meals/meet requirements to return to [facility] during this stay. 03/03/21--continue same. Cannot attempt coadmin with stimulant trial for hypersomnia as contraindicated with MAOI. No medical decompensation that would necessitate referral to medical or seeking court order for ECT. At minimum behaviors are challenging but more appropriate when willing to interact with staff. Need to consider longer term care options given slow progression. 03/02/21--interim care reviewed. Continue EMSAM and Lovenox injection. 03/01/21--Day 9 of Emsam patch. Continuing with behavioral plan to encourage behavioral activation-he was provided with plan with goals of having him come out of his room to eat meals, cooperate with repositioning, stand up when his sheets are changed/or if he prefers to stay in bed until the evening then clean sheets can be provided for him to put on the bed or request help putting on the bed in the evening, and continue independently voiding in his bedside urinal, shower can be started for him but he should be encouraged to get into the shower on his own, encourage him to address basic hygiene by continuing to provide him with easy access to his toothbrush, shampoo, etc. 02/28/21--Day 8 of Emsam patch. Now seeing new pattern of daily food intake which is encouraging. Continues to present with regressed behaviors and refusal to interact during the day. 02/27/21--Continue with Emsam patch. Getting out of bed more in the evenings and eating more. Lack of engagement during the day was volitional-pulling blanket over his head after he saw me enter his room. Also becoming more irritable with staff when he is encouraged to do more on his own for behavioral activation. 02/26/21-Continue with Emsam patch. 304 status granted. Ate last night and interacted with staff but no engagement today. 02/25/21--Continues to demonstrate severe depression with neurovegetative symptoms with no engagement with staff. Behavioral plan challenged by finding a reward/incentive that he enjoys. Continuing to encourage behavioral activation. Petitioned for 304 status with hearing scheduled for tomorrow given ongoing symptom burden and need for ongoing treatment. Remains on lovenox for DVT prophylaxis. Continue with Emsam patch. 02/24/21--Remains isolative and will not engage verbally. Encouragingly is attending slightly more to some of his ADLs, will continue with behavioral plan in hopes to continue encouraging behavioral activation although food does not seem to be a good motivator/reward for him. Will continue to think about other possible motivators for him to help encourage increased activity, po intake and engagement with therapeutic milieu. No signs of HTN or other side effects from MAOI at this point. 02/23/21--Continues to demonstrate neurovegetative symptoms of depression, remaining in bed most of the day but sometimes more engagement in the evenings. Will implement behavioral plan to encourage behavioral activation to treat neurovegetative symptoms in conjunction with Emsam as well as to encourage increased participation with ADLs. Nursing to provide him with tools to help him eat and promote good hygiene (brining in meals, supplies to wash up) and then if he does this independently will bring in ice cream or chips as reward to see if this helps with activation and increased po intake. 02/22/21--neurologic work up with EEG and brain MRI unremarkable, continue Emsam trial. 02/21/21--complex differential--depression with psychotic features in a patient with bipolar disorder most likely, certainly not typcial catatonia. No hx of hyperphagia or hypersexuality known that would suggest Kleine-Hess syndrome. Will proceed with Emsam patch 6 mg trial as only means to administer antidepressant. Will check with an ECT facility to determine if can treat patient if pursue a court order (will await emsam trial first). MRI brain (patient will need various x rays first as can't answer screening questions, no hx of pacemaker on chart). bedside EEG to rule out status epilepticus. 02/19/21--non-formulary request for Emsam patch. Hasn't taken antidepressants for at least 6 weeks. Would reconsider current med doses when this becomes available. without antidepressant he will continue to decompensate medically and is at significant risk of further decompensation. 02/17/21--lytes, Bun/Cr improved; given sleep phase shift desirable to shift antipsychotic to pm meal with IM Zyprexa for refusal. Bedside EEG likely poor quality/low yeild but consider if no improvement. 02/16/21--Reviewed care by Dr. Garces in italics. will d/c IM Ativan in favor of Zyprexa IM for failure to take Latuda. Does take Lorazepam prn PO, adjust dose and frequency and monitor use. Will repeat labs and PO intake so variable and hard to track. 02/09/2021--admitted to U. Ativan 2mg SL TID ordered. Track Is&Os. Vitals BID. 02/10/2021--continue with ativan 2mg TID SL. Showing significant improving in catatonic symptoms since ativan trial last night. If he continues to walk around no need for DVT prophylaxis. Will consider if 302 needs to be converted to 303 based on progress today. 02/11/2021--continue with scheduled ativan. Less engagement today but still eating and drinking. Plan for likely 303 given his inability/reluctance to engage in treatment. Reviewed outside records. 02/12/2021--continues to refuse ativan today and won't engage with anyone nor leave his bed except to use the bathroom and to eat at night. Given some movement in the evening and to the bathroom he doesn't require DVT prophylaxis at this time but this remains a concern should he clinically worsen and will continue to monitor his nutritional and medical status closely. 02/13/2021--placed on 303 status due to ongoing decompensation due to catatonia including refusal of medication, not eating, not drinking, not communicating with anyone and lying in bed all day. Once catatonia begins to improve with treatment will aim to start latuda which helped previously. [place] to require medications over objection for ativan to treat catatonia. If catatonia does not respond quickly to ativan then will consider if DVT prophylaxis should be initiated. 02/14/2021--no significant change in behaviors with additional of scheduled ativan 2 mg BID as medication over objection. Given concern for skin breakdown consult was placed for wound nurse. Given concern for possible DVT and after discussion with hospitalist will begin lovenox 40mg subQ daily. David was able to vocalize consent for this as he remains mute and unable/unwilling to engage but explained the risks, benefits, alternatives and rationale for lovenox and that we will be offering this to him. 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 02/15/2021--Have ruled out catatonia given inconsistent response to ativan trial, multiple observed examples of volitional movement immediately following periods of patient lying in bed and mute. Subsequent catatonia scales have been negative and patient feels that his symptoms represent withdrawn features of anxiety and depression. Given bipolar depression with neurovegetative features will start latuda. Encouragingly he is eating more and drinking more and got out of bed twi ce last night. Risk Factors Assessment Male: Yes : Yes Do You Have Access To A Gun?: No (in supportive living enviornment, pt unable to answer ) Mental Health Diagnoses: Yes Previous Psychiatric Hospitalization: Yes Protective Factors Assessment Employed: No Interval History Identifying Information 40 yo man with history of catatonia, depression, bipolar disorder vs schizophrenia admitted due to concern for decompensation with failure of self- care at [facility]. Admitted on 302, now 304. Chief Complaint mute Review of Systems Sleep Information Total Hours of Sleep: 6.75 Sleep Comments: pt remained in bed and appeared to be asleep @0100 and thereafter. pt on q-15 minute checks Meal Information Percent Meal Consumed - Breakfast: 100 Percent Meal Consumed - Lunch: 50 Percent Meal Consumed - Dinner: 50 Nutrition Comment: pt. OOB & had juice and 2 bowls of cereal Subjective Subjective Patient was seen & assessed and interval progress reviewed with treatment team nursing and social work. Walking somewhat rapidly in the [place] yesterday and looking out the main doors to the unit so he was placed on elopement precautions. Walked around the unit again in the evening for a few laps. Remains suspicious of the lovenox. Took po haldol last night and this morning. Irritable with staff this morning after refusing then requesting his vital signs be taken. Mute and would not make eye contact on my attempt to engage with him. Physical Exam Psychiatric Orientation: alert; + uncooperative Apperance: + disheveled Eye Contact: + poor eye contact Motor Behavior: + psychomotor retardation Speech: + mute Affect: + flat affect Cognition: + attention not intact Estimated Intelligence: consistent with education level Insight: + severely impaired insight Judgement: + severely impaired judgement Vital Signs (Past 24 Hours) Last Vital Signs Temp 35.8 C L 04/20/21 20:00 Pulse 103 H 04/21/21 06:00 Resp 18 04/20/21 06:00 BP 116/77 04/21/21 07:07 Pulse Ox 94 04/03/21 20:37 Results & Data ([facility]) Current Inpatient Medications Current Inpatient Medications: Current Inpatient Medications Acetaminophen (Acetaminophen 325 Mg Tab) 650 mg PO Q4H PRN PRN Reason: Headache or Minor Fever Stop: 05/11/21 10:27 Last Admin: 03/16/21 10:34 Dose: 325 mg Documented by: Al Hydrox/Mg Hydrox/Simethicone (Aluminum/Magnesium Susp 30 Ml Udc) 30 ml PO Q4H PRN PRN Reason: GI Upset Stop: 05/11/21 10:27 Benztropine Mesylate (Benztropine Mesylate 1 Mg Tab) 1 mg PO Q6 PRN PRN Reason: Muscle Spasm Stop: 05/03/21 08:40 Bismuth Subsalicylate (Bismuth Subsalicylate Liqd 236 Ml) 15 ml PO PRN PRN PRN Reason: Loose Stool Stop: 05/11/21 10:27 Diphenhydramine HCl (Diphenhydramine 50 Mg/Ml Vial) 50 mg IM BID PRN PRN Reason: Agitation Stop: 04/30/21 13:45 Enoxaparin Sodium (Enoxaparin Inj 40 Mg/0.4 Ml Syr) 40 mg SQ DAILY@2099 [facility] Stop: 05/05/21 20:59 Last Admin: 04/20/21 20:24 Dose: 40 mg Documented by: Folic Acid (Folic Acid 1 Mg Tab) 1 mg PO HS [facility] Stop: 05/10/21 21:59 Last Admin: 04/20/21 20:25 Dose: 1 mg Documented by: Haloperidol (Haloperidol 5 Mg Tab) 10 mg PO DAILY@2100 [facility] Stop: 05/04/21 20:59 Last Admin: 04/20/21 20:25 Dose: 10 mg Documented by: Haloperidol (Haloperidol 5 Mg Tab) 10 mg PO QAM [facility] Stop: 05/17/21 08:59 Last Admin: 04/21/21 09:09 Dose: 10 mg Documented by: Haloperidol Lactate (Haloperidol Lactate 5 Mg/Ml 1 Ml Vial) 5 mg IM BID PRN PRN Reason: Agitation Stop: 04/30/21 13:45 Haloperidol Lactate (Haloperidol Lactate 5 Mg/Ml 1 Ml Vial) 10 mg IM BID PRN PRN Reason: for refusal of PO Stop: 05/14/21 09:03 Last Admin: 04/19/21 10:42 Dose: 10 mg Documented by: Lorazepam (Lorazepam 1 Mg Tab) 1 mg PO Q6 PRN PRN Reason: Anxiety/Agitation Stop: 05/11/21 08:14 Last Admin: 04/04/21 20:52 Dose: 1 mg Documented by: Lorazepam (Lorazepam 2 Mg/Ml Vial (Im Use)) 2 mg IM BID PRN PRN Reason: Agitation Stop: 04/30/21 13:45 Magnesium Hydroxide (Magnesium Hydroxide Susp 30 Ml Udc) 30 ml PO DAILY PRN PRN Reason: Constipation Stop: 05/11/21 10:27 Potassium Chloride (Potassium Chloride Pwd 20 Meq Pack) 40 meq PO DAILYBD PRN PRN Reason: hypokalemia, to be given once Stop: 05/09/21 08:58 Sodium Chloride (Sodium Chloride 0.65% Na Soln 45 Ml ([place])) 1 - 2 sprays NA PRN PRN PRN Reason: Nasal Dryness/Congestion Stop: 05/11/21 10:27 Mental Health & Subst Abuse Tx Psychiatrist Name of Psychiatrist: Oniel Negron Psychiatrist's Date of Appointment with Psychiatrist: 03/13/21 Time of Appointment with Psychiatrist: 9:20am Psychiatric Appointment Comment: Zoom *is on waiting list for appt. sooner Therapist Name of Therapist: Unknown Kettle Worker Name of Kettle Worker: Mauri ([facility]) Post Discharge Appointments Primary Care Physician Name Of Family Doctor: Unknown
[2021-04-21] MEDS: FOLIC ACID 1 MG TAB PO SCH (20:13)
[2021-04-21] MEDS: ENOXAPARIN INJ 40 MG/0.4 ML SYR SQ SCH (20:30)
[2021-04-22] MEDS: haloperidoL 5 MG TAB PO SCH ×2 (08:47→20:49)
--- NOTE | 2021-04-22 17:38 | Psychiatric Progress Note ---
Date of Service April 22, 2021 Impression / Recommendations Impression The patient is a 40 year old with a history of schizoaffective disorder who was admitted for failure of self-care and worsening decompensation at correction. His functioning is poor with inconsistent activity and PO intake despite trials of Ativan, Emsam patch, IM Zyprexa, and now Haldol. He will not take PO meds consistently and is largely mute. Still requiring Lovenox injections. Both inpatient attendings and his outpatient psychiatrist agree that ECT is medically necessary and a court order has been granted. Court ordered ECT is an appropriate and necessary next step in terms of treatmen t. There is significant evidence for the efficacy of ECT in treating depression for both MDD and bipolar depression as well as strong evidence to support it's use for treatment resistant cases for schizoaffective disorder. His ongoing poor nutritional intake with periods of electrolyte abnormalities, weight loss, lack of movement with potential for ongoing muscle weakness/wasting as well as increased risk for DVT, lack of self-care/consequences of poor hygiene and lack of improvement from multiple medication trials are all reasons to pursue ECT at this time. MNPR due to psychiatric condition with ongoing poor hygiene and limited cooperation requiring bed changes with urination and paranoia. 04/22/21: continues to be largely mute, intermittently accepting po haldol, moving a bit more consistently in last two days. He is not felt to be appropriate to go outside due to his unpredictable behaviors (usually refuses to or cannot follow any staff directions), lack of engagement with staff and inability to fully assess safety risk for elopement if he were to go outside. Plan: completed paperwork for 305 commitment. (1) Schizoaffective disorder: 04/22/21: continue haldol and folate and lovenox. Completed 305 commitment paperwork. 04/21/21: continue haldol 10mg BID po and lovenox and folic acid. Day 1 of increased movement. 04/20/21: continue current medication of haldol 10 mg BID po, not doing IM for refusal. Awaiting response from ECT referral. If he can consistently show that he is moving and walking for three days in a row then we can stop the lovenox. 04/19/21: court testimony for 30 min in front of [facility] Judge Ruest answering questions about the patients condition, prognosis, treatment course, rationale for ECT and court order, risks/benefits of ECT. She will deliberated and the hospital state's attorney forwarded the signed court order for ECT. Dr. Schmitt, Migdalia, and Mili updated. 04/16/21: Haldol 10 mg bid with IM for refusal of PO. Medicine consult appreciated. Referral packet sent to [facility]. 04/13/21: attempt am dose of 5 mg Haldol, continue 10 hs with Ativan. Needs med clearance for ECT. Will hold Lovenox today as some improvement in activity. 04/12/21: continue with haldol and ativan. He was provided with legal paperwork regarding filing for ECT. 04/11/21: continue with haldol and ativan po or IM. Adding mouth checks if he accepts po haldol. Consulted hospitalist for pre-ECT physical exam. He refuses attempts to clip his fingernails. 04/10/21: Add folate supplement. Potassium level improving. Sent out labs for copper and ceruloplasmin. Engaged verbally with multiple staff and briefly watched movie with peers today. Started process for court-ordered ECT. 04/09/21: continue haldol and ativan po or IM. Working on process for consideration for court-ordered ECT. 04/08/21: continue haldol 10mg po or IM and ativan po or IM. Took potassium supplementation in juice yesterday will recheck labs in a few days. Agree with plan to pursue court order for ECT given non-responsiveness to other medication trials so far and his refusal to consistently take any po medication options. 04/07/21: limited PO, remains hypokalemic but overall labs stable 04/06/21: repeat labs in am, consider medicine consult (currently no acute indication for transfer), previous experience was he was less active when prescribed Zyprexa so monitor risks/benefits of Haldol. 04/05/21: attempt to replete K again, Discontinue Emsam patch, pursue court or ahmet for ECT when offices reopen after Thanksgi holiday. Continue IM Haldol with Ativan trial for now. 04/04/21: Haldol increased to 10 mg PO or IM yesterday with no change overnight, will shift to pm. Will d/c Emsam patch after tomorrow's dose as no sustained benefit and will need to pursue court order for ECT after holiday weekend. 03/31/21: increase haldol to 5 mg po or IM and ativan 1mg po or IM. Continue Emsam patch. 03/30/21: continue haldol 2.5 mg po or IM and ativan 1mg po or IM. Continue Emsam patch. Walked three laps around the unit with encouragement today. 03/29/21: Starting haldol 2.5 mg po or IM and ativan 1mg po or IM for suspected psychosis with negativism, lack of personal care, thought blocking/negative sx and avolition. Continue Emsam patch. Discontinued modafinil. 03/28/21: continue to offer medications. Gave ativan 1mg IM x1 last night after additional episode of spitting. Repeat labwork today showing improvement in nutritional status (albumin and total protein now normal and BUN/CR wnl). 03/27/21: continue to offer medications, he continues to refuse. Continuing to explore ways to involve his extended family or other aspects of care which could incentive his engagement in care. May need to consider if a less sedating antipsychotic medication should be re-trialed. Referral for [facility] has been accepted. 03/26/21: continue current medications, refused modafinil but will try again over next few days. Continue with ativan 1mg BIDM po 03/25/21: start modafinil 50 mg qAM, will monitor carefully for any interactions with MAOI. Discontinued ativan IM for refusal of po. Reducing ativan dosing from TID po to BID po in the afternoon to avoid combining morning stimulant with morning benzo as this would be counterproductive to stimulant trial. 03/24/21: continue current medications. 03/23/21: labwork done today and reviewed no significant changes from prior labwork, still has elevated Cl. Continue with lovenox, emsam patch, and ativan 1 mg po TID (with BID IM for refusal) 03/22/21: labs in am and resume Lovenox given regression past 3 days. 03/18/21: unable to care for self outside of hospital, continue Emsam patch, will not increase as I do not believe he can follow appropriate dietary restrictions at higher doses. 03/17/21: Ativan 1 mg PO TID (inject up to BID for refusal). 03/16/21: resume IM Ativan for refusal of PO Ativan. 03/15/21: Continue current medications. Making referral to [facility] given slow progression and he is still very far from his baseline which will require extended treatment and thus he will be best served by a longer term treatment approach. 03/14/21: Continue with current medications. Reviewed labwork, K+ improved but still signs of poor nutrition. Elevated ALT could be side effect from Emsam patch (occurs in <1/100 - 05/999 pts), will continue to monitor. may be able to consider transition to a po medication if he remains consistent with accepting po medications but for now Emsam patch benefit is felt to outweigh risk of slight ALT elevation. 03/13/21: Continue with current medications. Supports from [employer] will visit tomorrow. Labwork CMP tomorrow morning to ensure correction of hypokalemia. 03/12/21: Continue with current medications. Discussed with treatment team having his correction supports come for a visit and they will visit on . Revie wed his interactions with staff during evening hours/overnight in the chart and continues to show progress with engagement. 03/11/21: Continue with ativan 1 mg BID po, canceled IM as he is agreeing to voluntary po. Given steady improvement over the last 1 week consistent with expected timeline for symptom improvement from Emsam patch he may no longer need longer term care option if improvement persists at this rate. If progress stalls or regression occurs then will reconsider if longer term option for treatment is required. 03/10/21: Reduce ativan to 1 mg BID due to dizziness, low BP and possible fall yesterday. Will discontinue lovenox per his request and since he is now consistently moving around throughout the day and at night, discussed risk of blood clots if he doesn't continue to move around and ambulate frequently which he vocalized understanding of and agreement with. Given improvement in nutritional intake will hold off on rechecking labwork for now, will get repeat labs in 1 week on 03/14. 03/09/21: Reviewed interim progress. Continue Emsam patch and ativan 2mg BID trial-will monitor for excessive sedation. 03/08/21: Ativan 2 mg BID trial. 03/07/21: patient seen by neurology, appreciate input, seems severe vegetative symptoms due to depression though last few doses of Ativan have been more effective than previous. Continue Ativan 1 mg po BID (IM for refusal). Attempt to replete K with powder dissolved in juice. 03/04/21: will explore personal longterm as concerns he will not improve to point he can make meals/meet requirements to return to [facility] during this stay. 03/03/21--continue same. Cannot attempt coadmin with stimulant trial for hypersomnia as contraindicated with MAOI. No medical decompensation that would necessitate referral to medical or seeking court order for ECT. At minimum behaviors are challenging but more appropriate when willing to interact with staff. Need to consider longer term care options given slow progression. 03/02/21--interim care reviewed. Continue EMSAM and Lovenox injection. 03/01/21--Day 9 of Emsam patch. Continuing with behavioral plan to encourage behavioral activation-he was provided with plan with goals of having him come out of his room to eat meals, cooperate with repositioning, stand up when his sheets are changed/or if he prefers to stay in bed until the evening then clean sheets can be provided for him to put on the bed or request help putting on the bed in the evening, and continue independently voiding in his bedside urinal, shower can be started for him but he should be encouraged to get into the shower on his own, encourage him to address basic hygiene by continuing to provide him with easy access to his toothbrush, shampoo, etc. 02/28/21--Day 8 of Emsam patch. Now seeing new pattern of daily food intake which is encouraging. Continues to present with regressed behaviors and refusal to interact during the day. 02/27/21--Continue with Emsam patch. Getting out of bed more in the evenings and eating more. Lack of engagement during the day was volitional-pulling blanket over his head after he saw me enter his room. Also becoming more irritable with staff when he is encouraged to do more on his own for behavioral activation. 02/26/21-Continue with Emsam patch. 304 status granted. Ate last night and interacted with staff but no engagement today. 02/25/21--Continues to demonstrate severe depression with neurovegetative symptoms with no engagement with staff. Behavioral plan challenged by finding a reward/incentive that he enjoys. Continuing to encourage behavioral activation. Petitioned for 304 status with hearing scheduled for tomorrow given ongoing symptom burden and need for ongoing treatment. Remains on lovenox for DVT prophylaxis. Continue with Emsam patch. 02/24/21--Remains isolative and will not engage verbally. Encouragingly is attending slightly more to some of his ADLs, will continue with behavioral plan in hopes to continue encouraging behavioral activation although food does not seem to be a good motivator/reward for him. Will continue to think about other possible motivators for him to help encourage increased activity, po intake and engagement with therapeutic milieu. No signs of HTN or other side effects from MAOI at this point. 02/23/21--Continues to demonstrate neurovegetative symptoms of depression, remaining in bed most of the day but sometimes more engagement in the evenings. Will implement behavioral plan to encourage behavioral activation to treat neurovegetative symptoms in conjunction with Emsam as well as to encourage increased participation with ADLs. Nursing to provide him with tools to help him eat and promote good hygiene (brining in meals, supplies to wash up) and then if he does this independently will bring in ice cream or chips as reward to see if this helps with activation and increased po intake. 02/22/21--neurologic work up with EEG and brain MRI unremarkable, continue Emsam trial. 02/21/21--complex differential--depression with psychotic features in a patient with bipolar disorder most likely, certainly not typcial catatonia. No hx of hyperphagia or hypersexuality known that would suggest Kleine-Hess syndrome. Will proceed with Emsam patch 6 mg trial as only means to administer antidepressant. Will check with an ECT facility to determine if can treat patient if pursue a court order (will await emsam trial first). MRI brain (patient will need various x rays first as can't answer screening questions, no hx of pacemaker on chart). bedside EEG to rule out status epilepticus. 02/19/21--non-formulary request for Emsam patch. Hasn't taken antidepressants for at least 6 weeks. Would reconsider current med doses when this becomes available. without antidepressant he will continue to decompensate medically and is at significant risk of further decompensation. 02/17/21--lytes, Bun/Cr improved; given sleep phase shift desirable to shift antipsychotic to pm meal with IM Zyprexa for refusal. Bedside EEG likely poor quality/low yeild but consider if no improvement. 02/16/21--Reviewed care by Dr. Garces in italics. will d/c IM Ativan in favor of Zyprexa IM for failure to take Latuda. Does take Lorazepam prn PO, adjust dose and frequency and monitor use. Will repeat labs and PO intake so variable and hard to track. 02/09/2021--admitted to U. Ativan 2mg SL TID ordered. Track Is&Os. Vitals BID. 02/10/2021--continue with ativan 2mg TID SL. Showing significant improving in catatonic symptoms since ativan trial last night. If he continues to walk around no need for DVT prophylaxis. Will consider if 302 needs to be converted to 303 based on progress today. 02/11/2021--continue with scheduled ativan. Less engagement today but still eating and drinking. Plan for likely 303 given his inability/reluctance to engage in treatment. Reviewed outside records. 02/12/2021--continues to refuse ativan today and won't engage with anyone nor leave his bed except to use the bathroom and to eat at night. Given some movement in the evening and to the bathroom he doesn't require DVT prophylaxis at this time but this remains a concern should he clinically worsen and will continue to monitor his nutritional and medical status closely. 02/13/2021--placed on 303 status due to ongoing decompensation due to catatonia including refusal of medication, not eating, not drinking, not communicating with anyone and lying in bed all day. Once catatonia begins to improve with treatment will aim to start latuda which helped previously. [place] to require medications over objection for ativan to treat catatonia. If catatonia does not respond quickly to ativan then will consider if DVT prophylaxis should be initiated. 02/14/2021--no significant change in behaviors with additional of scheduled ativan 2 mg BID as medication over objection. Given concern for skin breakdown consult was placed for wound nurse. Given concern for possible DVT and after discussion with hospitalist will begin lovenox 40mg subQ daily. David was able to vocalize consent for this as he remains mute and unable/unwilling to engage but explained the risks, benefits, alternatives and rationale for lovenox and that we will be offering this to him. 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 02/15/2021--Have ruled out catatonia given inconsistent response to ativan trial, multiple observed examples of volitional movement immediately following periods of patient lying in bed and mute. Subsequent catatonia scales have been negative and patient feels that his symptoms represent withdrawn features of anxiety and depression. Given bipolar depression with neurovegetative features will start latuda. Encouragingly he is eating more and drinking more and got out of bed twice last night. Risk Factors Assessment Male: Yes : Yes Do You Have Access To A Gun?: No (in supportive living enviornment, pt unable to answer ) Mental Health Diagnoses: Yes Previous Psychiatric Hospitalization: Yes Protective Factors Assessment Employed: No Interval History Identifying Information 40 yo man with history of catatonia, depression, schizoaffective disorder admitted due to concern for decompensation with failure of self-care at [facility]. Admitted on 302, now 304. Chief Complaint mute Review of Systems Sleep Information Total Hours of Sleep: 7.25 Sleep Comments: pt on q-15 minute checks Meal Information Percent Meal Consumed - Breakfast: 100 Percent Meal Consumed - Lunch: 100 Percent Meal Consumed - Dinner: 50 Nutrition Comment: pt. OOB & had juice and 2 bowls of cereal Subjective Subjective Patient was seen & assessed and interval progress reviewed with treatment team nursing and social work. Isolative last night. This morning ate breakfast in common room with bottom exposed due to lack of awareness or care to clothing lessening and falling off. Refused po haldol last night. Remains irritable and condescending toward staff. Mute on my encounter today. Physical Exam Psychiatric Orientation: alert; + uncooperative Apperance: + disheveled Eye Contact: + poor eye contact Motor Behavior: + psychomotor retardation Speech: + mute Affect: + flat affect Cognition: + attention not intact Estimated Intelligence: consistent with education level Insight: + severely impaired insight Judgement: + severely impaired judgement Vital Signs (Past 24 Hours) Last Vital Signs Temp 36.7 C 04/21/21 20:00 Pulse 99 H 04/22/21 06:51 Resp 16 04/22/21 06:51 BP 106/74 04/22/21 06:51 Pulse Ox 94 04/03/21 20:37 Results & Data ([facility]) Current Inpatient Medications Current Inpatient Medications: Current Inpatient Medications Acetaminophen (Acetaminophen 325 Mg Tab) 650 mg PO Q4H PRN PRN Reason: Headache or Minor Fever Stop: 05/11/21 10:27 Last Admin: 03/16/21 10:34 Dose: 325 mg Documented by: Al Hydrox/Mg Hydrox/Simethicone (Aluminum/Magnesium Susp 30 Ml Udc) 30 ml PO Q4H PRN PRN Reason: GI Upset Stop: 05/11/21 10:27 Benztropine Mesylate (Benztropine Mesylate 1 Mg Tab) 1 mg PO Q6 PRN PRN Reason: Muscle Spasm Stop: 05/03/21 08:40 Bismuth Subsalicylate (Bismuth Subsalicylate Liqd 236 Ml) 15 ml PO PRN PRN PRN Reason: Loose Stool Stop: 05/11/21 10:27 Diphenhydramine HCl (Diphenhydramine 50 Mg/Ml Vial) 50 mg IM BID PRN PRN Reason: Agitation Stop: 04/30/21 13:45 Enoxaparin Sodium (Enoxaparin Inj 40 Mg/0.4 Ml Syr) 40 mg SQ DAILY@2100 [facility] Stop: 05/05/21 20:59 Last Admin: 04/21/21 20:30 Dose: 40 mg Documented by: Folic Acid (Folic Acid 1 Mg Tab) 1 mg PO HS [facility] Stop: 05/10/21 21:59 Last Admin: 04/21/21 20:13 Dose: 1 mg Documented by: Haloperidol (Haloperidol 5 Mg Tab) 10 mg PO DAILY@2100 [facility] Stop: 05/04/21 20:59 Last Admin: 04/21/21 20:29 Dose: Not Given Documented by: Haloperidol (Haloperidol 5 Mg Tab) 10 mg PO QAM [facility] Stop: 05/17/21 08:59 Last Admin: 04/22/21 08:47 Dose: Not Given Documented by: Haloperidol Lactate (Haloperidol Lactate 5 Mg/Ml 1 Ml Vial) 5 mg IM BID PRN PRN Reason: Agitation Stop: 04/30/21 13:45 Haloperidol Lactate (Haloperidol Lactate 5 Mg/Ml 1 Ml Vial) 10 mg IM BID PRN PRN Reason: for refusal of PO Stop: 05/14/21 09:03 Last Admin: 04/19/21 10:42 Dose: 10 mg Documented by: Lorazepam (Lorazepam 1 Mg Tab) 1 mg PO Q6 PRN PRN Reason: Anxiety/Agitation Stop: 05/11/21 08:14 Last Admin: 04/04/21 20:52 Dose: 1 mg Documented by: Lorazepam (Lorazepam 2 Mg/Ml Vial (Im Use)) 2 mg IM BID PRN PRN Reason: Agitation Stop: 04/30/21 13:45 Magnesium Hydroxide (Magnesium Hydroxide Susp 30 Ml Udc) 30 ml PO DAILY PRN PRN Reason: Constipation Stop: 05/11/21 10:27 Potassium Chloride (Potassium Chloride Pwd 20 Meq Pack) 40 meq PO DAILYBD PRN PRN Reason: hypokalemia, to be given once Stop: 05/09/21 08:58 Sodium Chloride (Sodium Chloride 0.65% Na Soln 45 Ml ([place])) 1 - 2 sprays NA PRN PRN PRN Reason: Nasal Dryness/Congestion Stop: 05/11/21 10:27 Mental Health & Subst Abuse Tx Psychiatrist Name of Psychiatrist: Oniel Negron Psychiatrist's Date of Appointment with Psychiatrist: 03/13/21 Time of Appointment with Psychiatrist: 9:20am Psychiatric Appointment Comment: Zoom *is on waiting list for appt. sooner Therapist Name of Therapist: Unknown Sash Assembler Name of Sash Assembler: Mauri GunterBS[facility]) Post Discharge Appointments Primary Care Physician Name Of Family Doctor: Unknown
[2021-04-22] MEDS: ENOXAPARIN INJ 40 MG/0.4 ML SYR SQ SCH (20:48)
[2021-04-22] MEDS: FOLIC ACID 1 MG TAB PO SCH (20:49)
[2021-04-23] MEDS: haloperidoL 5 MG TAB PO SCH (08:52)
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
[2021-04-23] MEDS: FOLIC ACID 1 MG TAB PO SCH (21:02)
[2021-04-23] MEDS ORDERED: haloperidoL 5 MG TAB PO SCH (22:00)
--- NOTE | 2021-04-24 15:29 | Psychiatric Progress Note ---
Date of Service April 24, 2021 Impression / Recommendations Impression The patient is a 40 year old with a history of schizoaffective disorder who was admitted for failure of self-care and worsening decompensation at correction. His functioning is poor with inconsistent activity and PO intake despite trials of Ativan, Emsam patch, IM Zyprexa, and now Haldol. He will not take PO meds consistently and is largely mute. Still requiring Lovenox injections. Both inpatient attendings and his outpatient psychiatrist agree that ECT is medically necessary and a court order has been granted. MNPR due to psychiatric condition with ongoing poor hygiene and limited cooperation requiring bed changes with urination and paranoia. 04/24/21: today back to lying bed, not moving, not eating, not attending to personal hygiene, refusing oral medications (even after discussion about haldol yesterday and consenting to this) and not engaging with staff. He is not felt to be appropriate to go outside due to his unpredictable behaviors (usually refuses to or cannot follow any staff directions), and lack of engagement or movement. Remains severely decompensated and in need of inpatient psychiatric hospitalization. Plan: increase haldol back to prior dose since his behavior has regressed and he still refused the lower dose. Awaiting ECT bed availability at [facility] as our facility does not offer ECT. (1) Schizoaffective disorder: 04/24/21: increase haldol back to 10mg BID as he continued to refuse lower dose. If he remains sedentary after tomorrow will re-start lovenox. 04/23/21: reduce to haldol 5mg qhs po after discussion with David with goal of improving adherence and folic acid, will d/c lovenox. Now on 305 commitment. 04/22/21: continue haldol and folate and lovenox. Completed 305 commitment paperwork. 04/21/21: continue haldol 10mg BID po and lovenox and folic acid. Day 1 of increased movement. 04/20/21: continue current medication of haldol 10 mg BID po, not doing IM for refusal. Awaiting response from ECT referral. If he can consistently show that he is moving and walking for three days in a row then we can stop the lovenox. 04/19/21: court testimony for 30 min in front of [facility] Judge Ruest ans wering questions about the patients condition, prognosis, treatment course, rationale for ECT and court order, risks/benefits of ECT. She will deliberated and the hospital title attorney forwarded the signed court order for ECT. Dr. Schmitt, Migdalia, and Mili updated. 04/16/21: Haldol 10 mg bid with IM for refusal of PO. Medicine consult appreciated. Referral packet sent to [facility]. 04/13/21: attempt am dose of 5 mg Haldol, continue 10 hs with Ativan. Needs med clearance for ECT. Will hold Lovenox today as some improvement in activity. 04/12/21: continue with haldol and ativan. He was provided with legal paperwork regarding filing for ECT. 04/11/21: continue with haldol and ativan po or IM. Adding mouth checks if he accepts po haldol. Consulted hospitalist for pre-ECT physical exam. He refuses attempts to clip his fingernails. 04/10/21: Add folate supplement. Potassium level improving. Sent out labs for copper and ceruloplasmin. Engaged verbally with multiple staff and briefly watched movie with peers today. Started process for court-ordered ECT. 04/09/21: continue haldol and ativan po or IM. Working on process for consideration for court-ordered ECT. 04/08/21: continue haldol 10mg po or IM and ativan po or IM. Took potassium supplementation in juice yesterday will recheck labs in a few days. Agree with plan to pursue court order for ECT given non-responsiveness to other medication trials so far and his refusal to consistently take any po medication options. 04/07/21: limited PO, remains hypokalemic but overall labs stable 04/06/21: repeat labs in am, consider medicine consult (currently no acute indication for transfer), previous experience was he was less active when prescribed Zyprexa so monitor risks/benefits of Haldol. 04/05/21: attempt to replete K again, Discontinue Emsam patch, pursue court order for ECT when offices reopen after holiday. Continue IM Haldol with Ativan trial for now. 04/04/21: Haldol increased to 10 mg PO or IM yesterday with no change overnight, will shift to pm. Will d/c Emsam patch after tomorrow's dose as no sustained benefit and will need to pursue court order for ECT after holiday weekend. 03/31/21: increase haldol to 5 mg po or IM and ativan 1mg po or IM. Continue Emsam patch. 03/30/21: continue haldol 2.5 mg po or IM and ativan 1mg po or IM. Continue Emsam patch. Walked three laps around the unit with encouragement today. 03/29/21: Starting haldol 2.5 mg po or IM and ativan 1mg po or IM for suspected psychosis with negativism, lack of personal care, thought blocking/negative sx and avolition. Continue Emsam patch. Discontinued modafinil. 03/28/21: continue to offer medications. Gave ativan 1mg IM x1 last night after additional episode of spitting. Repeat labwork today showing improvement in nutritional status (albumin and total protein now normal and BUN/CR wnl). 03/27/21: continue to offer medications, he continues to refuse. Continuing to explore ways to involve his extended family or other aspects of care which could incentive his engagement in care. May need to consider if a less sedating antipsychotic medication should be re-trialed. Referral for [facility] has been accepted. 03/26/21: continue current medications, refused modafinil but will try again over next few days. Continue with ativan 1mg BIDM po 03/25/21: start modafinil 50 mg qAM, will monitor carefully for any interactions with MAOI. Discontinued ativan IM for refusal of po. Reducing ativan dosing from TID po to BID po in the afternoon to avoid combining morning stimulant with morning benzo as this would be counterproductive to stimulant trial. 03/24/21: continue current medications. 03/23/21: labwork done today and reviewed no significant changes from prior labwork, still has elevated Cl. Continue with lovenox, emsam patch, and ativan 1 mg po TID (with BID IM for refusal) 03/22/21: labs in am and resume Lovenox given regression past 3 days. 03/18/21: unable to care for self outside of hospital, continue Emsam patch, will not increase as I do not believe he can follow appropriate dietary restrictions at higher doses. 03/17/21: Ativan 1 mg PO TID (inject up to BID for refusal). 03/16/21: resume IM Ativan for refusal of PO Ativan. 03/15/21: Continue current medications. Making referral to [facility] given slow progression and he is still very far from his baseline which will require extended treatment and thus he will be best served by a longer term treatment approach. 03/14/21: Continue with current medications. Reviewed labwork, K+ improved but still signs of poor nutrition. Elevated ALT could be side effect from Emsam patch (occurs in <1/100 - 05/999 pts), will continue to monitor. may be able to consider transition to a po medication if he remains consistent with accepting po medications but for now Emsam patch benefit is felt to outweigh risk of slight ALT elevation. 03/13/21: Continue with current medications. Supports from [employer] will visit tomorrow. Labwork CMP tomorrow morning to ensure correction of hypokalemia. 03/12/21: Continue with current medications. Discussed with treatment team having his correction supports come for a visit and they will visit on . Reviewed his interactions with staff during evening hours/overnight in the chart and continues to show progress with engagement. 03/11/21: Continue with ativan 1 mg BID po, canceled IM as he is agreeing to voluntary po. Given steady improvement over the last 1 week consistent with expected timeline for symptom improvement from Emsam patch he may no longer need longer term care option if improvement persists at this rate. If progress stalls or regression occurs then will reconsider if longer term option for treatment is required. 03/10/21: Reduce ativan to 1 mg BID due to dizziness, low BP and possible fall yesterday. Will discontinue lovenox per his request and since he is now consistently moving around throughout the day and at night, discussed risk of blood clots if he doesn't continue to move around and ambulate frequently which he vocalized understanding of and agreement with. Given improvement in nutritional intake will hold off on rechecking labwork for now, will get repeat labs in 1 week on 03/14. 03/09/21: Reviewed interim progress. Continue Emsam patch and ativan 2mg BID trial-will monitor for excessive sedation. 03/08/21: Ativan 2 mg BID trial. 03/07/21: patient seen by neurology, appreciate input, seems severe vegetative symptoms due to depression though last few doses of Ativan have been more effective than previous. Continue Ativan 1 mg po BID (IM for refusal). Attempt to replete K with powder dissolved in juice. 03/04/21: will explore personal shelter as concerns he will not improve to point he can make meals/meet requirements to return to [facility] during this stay. 03/03/21--continue same. Cannot attempt coadmin with stimulant trial for hypersomnia as contraindicated with MAOI. No medical decompensation that would necessitate referral to medical or seeking court order for ECT. At minimum behaviors are challenging but more appropriate when willing to interact with staff. Need to consider longer term care options given slow progression. 03/02/21--interim care reviewed. Continue EMSAM and Lovenox injection. 03/01/21--Day 9 of Emsam patch. Continuing with behavioral plan to encourage behavioral activation-he was provided with plan with goals of having him come out of his room to eat meals, cooperate with repositioning, stand up when his sheets are changed/or if he prefers to stay in bed until the evening then clean sheets can be provided for him to put on the bed or request help putting on the bed in the evening, and continue independently voiding in his bedside urinal, shower can be started for him but he should be encouraged to get into the shower on his own, encourage him to address basic hygiene by continuing to provide him with easy access to his toothbrush, shampoo, etc. 02/28/21--Day 8 of Emsam patch. Now seeing new pattern of daily food intake which is encouraging. Continues to present with regressed behaviors and refusal to interact during the day. 02/27/21--Continue with Emsam patch. Getting out of bed more in the evenings and eating more. Lack of engagement during the day was volitional-pulling blanket over his head after he saw me enter his room. Also becoming more irritable with staff when he is encouraged to do more on his own for behavioral activation. 02/26/21-Continue with Emsam patch. 304 status granted. Ate last night and interacted with staff but no engagement today. 02/25/21--Continues to demonstrate severe depression with neurovegetative symptoms with no engagement with staff. Behavioral plan challenged by finding a reward/incentive that he enjoys. Continuing to encourage behavioral activation. Petitioned for 304 status with hearing scheduled for tomorrow given ongoing symptom burden and need for ongoing treatment. Remains on lovenox for DVT prophylaxis. Continue with Emsam patch. 02/24/21--Remains isolative and will not engage verbally. Encouragingly is attending slightly more to some of his ADLs, will continue with behavioral plan in hopes to continue encouraging behavioral activation although food does not seem to be a good motivator/reward for him. Will continue to think about other possible motivators for him to help encourage increased activity, po intake and engagement with therapeutic milieu. No signs of HTN or other side effects from MAOI at this point. 02/23/21--Continues to demonstrate neurovegetative symptoms of depression, remaining in bed most of the day but sometimes more engagement in the evenings. Will implement behavioral plan to encourage behavioral activation to treat neurovegetative symptoms in conjunction with Emsam as well as to encourage increased participation with ADLs. Nursing to provide him with tools to help him eat and promote good hygiene (brining in meals, supplies to wash up) and then if he does this independently will bring in ice cream or chips as reward to see if this helps with activation and increased po intake. 02/22/21--neurologic work up with EEG and brain MRI unremarkable, continue Emsam trial. 02/21/21--complex differential--depression with psychotic features in a patient with bipolar disorder most likely, certainly not typcial catatonia. No hx of hy perphagia or hypersexuality known that would suggest Kleine-Hess syndrome. Will proceed with Emsam patch 6 mg trial as only means to administer antidepressant. Will check with an ECT facility to determine if can treat patient if pursue a court order (will await emsam trial first). MRI brain (patient will need various x rays first as can't answer screening questions, no hx of pacemaker on chart). bedside EEG to rule out status epilepticus. 02/19/21--non-formulary request for Emsam patch. Hasn't taken antidepressants for at least 6 weeks. Would reconsider current med doses when this becomes a vailable. without antidepressant he will continue to decompensate medically and is at significant risk of further decompensation. 02/17/21--lytes, Bun/Cr improved; given sleep phase shift desirable to shift antipsychotic to pm meal with IM Zyprexa for refusal. Bedside EEG likely poor quality/low yeild but consider if no improvement. 02/16/21--Reviewed care by Dr. Garces in italics. will d/c IM Ativan in favor of Zyprexa IM for failure to take Latuda. Does take Lorazepam prn PO, adjust dose and frequency and monitor use. Will repeat labs and PO intake so variable and hard to track. 02/09/2021--admitted to U. Ativan 2mg SL TID ordered. Track Is&Os. Vitals BID. 02/10/2021--continue with ativan 2mg TID SL. Showing significant improving in catatonic symptoms since ativan trial last night. If he continues to walk around no need for DVT prophylaxis. Will consider if 302 needs to be converted to 303 based on progress today. 02/11/2021--continue with scheduled ativan. Less engagement today but still eating and drinking. Plan for likely 303 given his inability/reluctance to engage in treatment. Reviewed outside records. 02/12/2021--continues to refuse ativan today and won't engage with anyone nor leave his bed except to use the bathroom and to eat at night. Given some movement in the evening and to the bathroom he doesn't require DVT prophylaxis at this time but this remains a concern should he clinically worsen and will continue to monitor his nutritional and medical status closely. 02/13/2021--placed on 303 status due to ongoing decompensation due to catatonia including refusal of medication, not eating, not drinking, not communicating with anyone and lying in bed all day. Once catatonia begins to improve with treatment will aim to start latuda which helped previously. [place] to require medications over objection for ativan to treat catatonia. If catatonia does not respond quickly to ativan then will consider if DVT prophylaxis should be initiated. 02/14/2021--no significant change in behaviors with additional of scheduled ativan 2 mg BID as medication over objection. Given concern for skin breakdown consult was placed for wound nurse. Given concern for possible DVT and after discussion with hospitalist will begin lovenox 40mg subQ daily. David was able to vocalize consent for this as he remains mute and unable/unwilling to engage but explained the risks, benefits, alternatives and rationale for lovenox and that we will be offering this to him. 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 02/15/2021--Have ruled out catatonia given inconsistent response to ativan trial, multiple observed examples of volitional movement immediately following periods of patient lying in bed and mute. Subsequent catatonia scales have been negative and patient feels that his symptoms represent withdrawn features of anxiety and depression. Given bipolar depression with neurovegetative features will start latuda. Encouragingly he is eating more and drinking more and got out of bed twice last night. Risk Factors Assessment Male: Yes : Yes Do You Have Access To A Gun?: No (in supportive living enviornment, pt unable to answer ) Mental Health Diagnoses: Yes Previous Psychiatric Hospitalization: Yes Protective Factors Assessment Employed: No Interval History Identifying Information 40 yo man with history of catatonia, depression, schizoaffective disorder admitted due to concern for decompensation with failure of self-care at [facility]. Admitted on 302, now 305. Chief Complaint mute Review of Systems Sleep Information Total Hours of Sleep: 8.75 Sleep Comments: pt on q-15 minute check. Meal Information Percent Meal Consumed - Breakfast: 0 Percent Meal Consumed - Lunch: 0 Percent Meal Consumed - Dinner: 100 Nutrition Comment: pt. OOB & had juice and 2 bowls of cereal Subjective Subjective Patient was seen & assessed and interval progress reviewed with treatment team nursing and social work. David remained active yesterday evening at first- eating dinner and reading and writing until somewhat abruptly returning to his prominent neurovegetative symptoms of lying in bed, not moving and not engaging with anyone. He opened his eyes and spit up some mucous but otherwise would not interact with me verbally or non-verbally. Physical Exam Psychiatric Orientation: alert; + uncooperative Apperance: + disheveled Eye Contact: + poor eye contact Motor Behavior: + psychomotor retardation Speech: + mute Affect: + flat affect Cognition: + attention not intact Estimated Intelligence: consistent with education level Insight: + severely impaired insight Judgement: + severely impaired judgement Vital Signs (Past 24 Hours) Last Vital Signs Temp 37.2 C 04/24/21 06:33 Pulse 99 H 04/24/21 06:33 Resp 16 04/24/21 06:33 BP 119/75 04/24/21 06:33 Pulse Ox 94 04/03/21 20:37 Results & Data ([facility]) Current Inpatient Medications Current Inpatient Medications: Current Inpatient Medications Acetaminophen (Acetaminophen 325 Mg Tab) 650 mg PO Q4H PRN PRN Reason: Headache or Minor Fever Stop: 05/11/21 10:27 Last Admin: 03/16/21 10:34 Dose: 325 mg Documented by: Al Hydrox/Mg Hydrox/Simethicone (Aluminum/Magnesium Susp 30 Ml Udc) 30 ml PO Q4H PRN PRN Reason: GI Upset Stop: 05/11/21 10:27 Benztropine Mesylate (Benztropine Mesylate 1 Mg Tab) 1 mg PO Q6 PRN PRN Reason: Muscle Spasm Stop: 05/03/21 08:40 Bismuth Subsalicylate (Bismuth Subsalicylate Liqd 236 Ml) 15 ml PO PRN PRN PRN Reason: Loose Stool Stop: 05/11/21 10:27 Diphenhydramine HCl (Diphenhydramine 50 Mg/Ml Vial) 50 mg IM BID PRN PRN Reason: Agitation Stop: 04/30/21 13:45 Folic Acid (Folic Acid 1 Mg Tab) 1 mg PO HS OG Stop: 05/10/21 21:59 Last Admin: 04/23/21 21:02 Dose: Not Given Documented by: Haloperidol (Haloperidol 5 Mg Tab) 5 mg PO HS OG Stop: 05/23/21 21:59 Last Admin: 04/23/21 21:02 Dose: Not Given Documented by: Haloperidol Lactate (Haloperidol Lactate 5 Mg/Ml 1 Ml Vial) 5 mg IM BID PRN PRN Reason: Agitation Stop: 04/30/21 13:45 Lorazepam (Lorazepam 1 Mg Tab) 1 mg PO Q6 PRN PRN Reason: Anxiety/Agitation Stop: 05/11/21 08:14 Last Admin: 04/04/21 20:52 Dose: 1 mg Documented by: Lorazepam (Lorazepam 2 Mg/Ml Vial (Im Use)) 2 mg IM BID PRN PRN Reason: Agitation Stop: 04/30/21 13:45 Magnesium Hydroxide (Magnesium Hydroxide Susp 30 Ml Udc) 30 ml PO DAILY PRN PRN Reason: Constipation Stop: 05/11/21 10:27 Potassium Chloride (Potassium Chloride Pwd 20 Meq Pack) 40 meq PO DAILYBD PRN PRN Reason: hypokalemia, to be given once Stop: 05/09/21 08:58 Sodium Chloride (Sodium Chloride 0.65% Na Soln 45 Ml ([place])) 1 - 2 sprays NA PRN PRN PRN Reason: Nasal Dryness/Congestion Stop: 05/11/21 10:27 Mental Health & Subst Abuse Tx Psychiatrist Name of Psychiatrist: Oniel Negron Psychiatrist's Date of Appointment with Psychiatrist: 03/13/21 Time of Appointment with Psychiatrist: 9:20am Psychiatric Appointment Comment: Zoom *is on waiting list for appt. sooner Therapist Name of Therapist: Unknown Turning Sander Tender Name of Turning Sander Tender: Mauri ([facility]) Post Discharge Appointments Primary Care Physician Name Of Family Doctor: Unknown
[2021-04-24] MEDS: FOLIC ACID 1 MG TAB PO SCH (20:43)
[2021-04-24] MEDS: haloperidoL 5 MG TAB PO SCH (20:50)
[2021-04-25] MEDS: haloperidoL 5 MG TAB PO SCH ×2 (09:08→20:51)
--- NOTE | 2021-04-25 16:29 | Psychiatric Progress Note ---
Date of Service April 25, 2021 Impression / Recommendations Impression The patient is a 40 year old with a history of schizoaffective disorder who was admitted for failure of self-care and worsening decompensation at senior living. His functioning is poor with inconsistent activity and PO intake despite trials of Ativan, Emsam patch, IM Zyprexa, and now Haldol. He will not take PO meds consistently and is largely mute. Still requiring Lovenox injections. Both inpatient attendings and his outpatient psychiatrist agree that ECT is medically necessary and a court order has been granted. MNPR due to psychiatric condition with ongoing poor hygiene and limited cooperation requiring bed changes with urination and paranoia. 04/25/21:engaging again today and did accept half-dose of haldol. Discussed additional options for sleep medications and he consented to starting trazodone. He is not felt to be appropriate to go outside due to his unpredictable behaviors (usually refuses to or cannot follow any staff directions), and he is currently on elopement precautions given recent behaviors of concern including examining unit doors closely. Remains severely decompensated and in need of inpatient psychiatric hospitalization. Plan:continue haldol at current dose until consistent medication adherence and then can reconsider reducing dose. Will start trazodone 50mg qhs for insomnia, also reviewed sleep hygiene as he spends all day in bed and already has his blinds closed for the day preventing exposure to sunlight. Awaiting ECT bed availability at [facility] as our facility does not offer ECT. (1) Schizoaffective disorder: 04/25/21: adding trazodone 50mg qhs for insomnia. 04/24/21: increase haldol back to 10mg BID as he continued to refuse lower dose. If he remains sedentary after tomorrow will re-start lovenox. 04/23/21: reduce to haldol 5mg qhs po after discussion with David with goal of improving adherence and folic acid, will d/c lovenox. Now on 305 commitment. 04/22/21: continue haldol and folate and lovenox. Completed 305 commitment paperwork. 04/21/21: continue haldol 10mg BID po and lovenox and folic acid. Day 1 of increased movement. 04/20/21: continue current medication of haldol 10 mg BID po, not doing IM for refusal. Awaiting response from ECT referral. If he can consistently show that he is moving and walking for three days in a row then we can stop the lovenox. 04/19/21: court testimony for 30 min in front of [facility] Judge Ruest answering questions about the patients condition, prognosis, treatment course, rationale for ECT and court order, risks/benefits of ECT. She will deliberated and the hospital attorney law clerk forwarded the signed court order for ECT. Dr. Schmitt, Migdalia, and Mili updated. 04/16/21: Haldol 10 mg bid with IM for refusal of PO. Medicine consult appr eciated. Referral packet sent to [facility]. 04/13/21: attempt am dose of 5 mg Haldol, continue 10 hs with Ativan. Needs med clearance for ECT. Will hold Lovenox today as some improvement in activity. 04/12/21: continue with haldol and ativan. He was provided with legal paperwork regarding filing for ECT. 04/11/21: continue with haldol and ativan po or IM. Adding mouth checks if he accepts po haldol. Consulted hospitalist for pre-ECT physical exam. He refuses attempts to clip his fingernails. 04/10/21: Add folate supplement. Potassium level improving. Sent out labs for copper and ceruloplasmin. Engaged verbally with multiple staff and briefly watched movie with peers today. Started process for court-ordered ECT. 04/09/21: continue haldol and ativan po or IM. Working on process for consideration for court-ordered ECT. 04/08/21: continue haldol 10mg po or IM and ativan po or IM. Took potassium supplementation in juice yesterday will recheck labs in a few days. Agree with plan to pursue court order for ECT given non-responsiveness to other medication trials so far and his refusal to consistently take any po medication options. 04/07/21: limited PO, remains hypokalemic but overall labs stable 04/06/21: repeat labs in am, consider medicine consult (currently no acute indication for transfer), previous experience was he was less active when prescribed Zyprexa so monitor risks/benefits of Haldol. 04/05/21: attempt to replete K again, Discontinue Emsam patch, pursue court order for ECT when offices reopen after hol. Continue IM Haldol with Ativan trial for now. 04/04/21: Haldol increased to 10 mg PO or IM yesterday with no change overnight, will shift to pm. Will d/c Emsam patch after tomorrow's dose as no sustained benefit and will need to pursue court order for ECT after holiday weekend. 03/31/21: increase haldol to 5 mg po or IM and ativan 1mg po or IM. Continue Emsam patch. 03/30/21: continue haldol 2.5 mg po or IM and ativan 1mg po or IM. Continue Emsam patch. Walked three laps around the unit with encouragement today. 03/29/21: Starting haldol 2.5 mg po or IM and ativan 1mg po or IM for suspected psychosis with negativism, lack of personal care, thought blocking/negative sx and avolition. Continue Emsam patch. Discontinued modafinil. 03/28/21: continue to offer medications. Gave ativan 1mg IM x1 last night after additional episode of spitting. Repeat labwork today showing improvement in nutritional status (albumin and total protein now normal and BUN/CR wnl). 03/27/21: continue to offer medications, he continues to refuse. Continuing to explore ways to involve his extended family or other aspects of care which could incentive his engagement in care. May need to consider if a less sedating antipsychotic medication should be re-trialed. Referral for [facility] has been accepted. 03/26/21: continue current medications, refused modafinil but will try again over next few days. Continue with ativan 1mg BIDM po 03/25/21: start modafinil 50 mg qAM, will monitor carefully for any interactions with MAOI. Discontinued ativan IM for refusal of po. Reducing ativan dosing from TID po to BID po in the afternoon to avoid combining morning stimulant with morning benzo as this would be counterproductive to stimulant trial. 03/24/21: continue current medications. 03/23/21: labwork done today and reviewed no significant changes from prior labwork, still has elevated Cl. Continue with lovenox, emsam patch, and ativan 1 mg po TID (with BID IM for refusal) 03/22/21: labs in am and resume Lovenox given regression past 3 days. 03/18/21: unable to care for self outside of hospital, continue Emsam patch, will not increase as I do not believe he can follow appropriate dietary restrictions at higher doses. 03/17/21: Ativan 1 mg PO TID (inject up to BID for refusal). 03/16/21: resume IM Ativan for refusal of PO Ativan. 03/15/21: Continue current medications. Making referral to [facility] given slow progression and he is still very far from his baseline which will require extended treatment and thus he will be best served by a longer term treatment approach. 03/14/21: Continue with current medications. Reviewed labwork, K+ improved but still signs of poor nutrition. Elevated ALT could be side effect from Emsam patch (occurs in <1/100 - 05/999 pts), will continue to monitor. may be able to consider transition to a po medication if he remains consistent with accepting po medications but for now Emsam patch benefit is felt to outweigh risk of slight ALT elevation. 03/13/21: Continue with current medications. Supports from [facility] will visit tomorrow. Labwork CMP tomorrow morning to ensure correction of hypokalemia. 03/12/21: Continue with current medications. Discussed with treatment team having his senior living supports come for a visit and they will visit on . Reviewed his interactions with staff during evening hours/overnight in the chart and continues to show progress with engagement. 03/11/21: Continue with ativan 1 mg BID po, canceled IM as he is agreeing to voluntary po. Given steady improvement over the last 1 week consistent with expected timeline for symptom improvement from Emsam patch he may no longer need longer term care option if improvement persists at this rate. If progress stalls or regression occurs then will reconsider if longer term option for treatment is required. 03/10/21: Reduce ativan to 1 mg BID due to dizziness, low BP and possible fall yesterday. Will discontinue lovenox per his request and since he is now consi stently moving around throughout the day and at night, discussed risk of blood clots if he doesn't continue to move around and ambulate frequently which he vocalized understanding of and agreement with. Given improvement in nutritional intake will hold off on rechecking labwork for now, will get repeat labs in 1 week on 03/14. 03/09/21: Reviewed interim progress. Continue Emsam patch and ativan 2mg BID trial-will monitor for excessive sedation. 03/08/21: Ativan 2 mg BID trial. 03/07/21: patient seen by neurology, appreciate input, seems severe vegetative symptoms due to depression though last few doses of Ativan have been more effective than previous. Continue Ativan 1 mg po BID (IM for refusal). Attempt to replete K with powder dissolved in juice. 03/04/21: will explore personal senior living as concerns he will not improve to point he can make meals/meet requirements to return to [facility] during this stay. 03/03/21--continue same. Cannot attempt coadmin with stimulant trial for hypers omnia as contraindicated with MAOI. No medical decompensation that would necessitate referral to medical or seeking court order for ECT. At minimum behaviors are challenging but more appropriate when willing to interact with staff. Need to consider longer term care options given slow progression. 03/02/21--interim care reviewed. Continue EMSAM and Lovenox injection. 03/01/21--Day 9 of Emsam patch. Continuing with behavioral plan to encourage behavioral activation-he was provided with plan with goals of having him come out of his room to eat meals, cooperate with repositioning, stand up when his sheets are changed/or if he prefers to stay in bed until the evening then clean sheets can be provided for him to put on the bed or request help putting on the bed in the evening, and continue independently voiding in his bedside urinal, shower can be started for him but he should be encouraged to get into the shower on his own, encourage him to address basic hygiene by continuing to provide him with easy access to his toothbrush, shampoo, etc. 02/28/21--Day 8 of Emsam patch. Now seeing new pattern of daily food intake which is encouraging. Continues to present with regressed behaviors and refusal to interact during the day. 02/27/21--Continue with Emsam patch. Getting out of bed more in the evenings and eating more. Lack of engagement during the day was volitional-pulling blanket over his head after he saw me enter his room. Also becoming more irritable with staff when he is encouraged to do more on his own for behavioral activation. 02/26/21-Continue with Emsam patch. 304 status granted. Ate last night and interacted with staff but no engagement today. 02/25/21--Continues to demonstrate severe depression with neurovegetative symptoms with no engagement with staff. Behavioral plan challenged by finding a reward/incentive that he enjoys. Continuing to encourage behavioral activation. Petitioned for 304 status with hearing scheduled for tomorrow given ongoing symptom burden and need for ongoing treatment. Remains on lovenox for DVT prophylaxis. Continue with Emsam patch. 02/24/21--Remains isolative and will not engage verbally. Encouragingly is attending slightly more to some of his ADLs, will continue with behavioral plan in hopes to continue encouraging behavioral activation although food does not seem to be a good motivator/reward for him. Will continue to think about other possible motivators for him to help encourage increased activity, po intake and engagement with therapeutic milieu. No signs of HTN or other side effects from MAOI at this point. 02/23/21--Continues to demonstrate neurovegetative symptoms of depression, remaining in bed most of the day but sometimes more engagement in the evenings. Will implement behavioral plan to encourage behavioral activation to treat neurovegetative symptoms in conjunction with Emsam as well as to encourage increased participation with ADLs. Nursing to provide him with tools to help him eat and promote good hygiene (brining in meals, supplies to wash up) and then if he does this independently will bring in ice cream or chips as reward to see if this helps with activation and increased po intake. 02/22/21--neurologic work up with EEG and brain MRI unremarkable, continue Emsam trial. 02/21/21--complex differential--depression with psychotic features in a patient with bipolar disorder most likely, certainly not typcial catatonia. No hx of hyperphagia or hypersexuality known that would suggest Kleine-Hess syndrome. Will proceed with Emsam patch 6 mg trial as only means to administer antidepressant. Will check with an ECT facility to determine if can treat patient if pursue a court order (will await emsam trial first). MRI brain (patient will need various x rays first as can't answer screening questions, no hx of pacemaker on chart). bedside EEG to rule out status epilepticus. 02/19/21--non-formulary request for Emsam patch. Hasn't taken antidepressants for at least 6 weeks. Would reconsider current med doses when this becomes available. without antidepressant he will continue to decompensate medically and is at significant risk of further decompensation. 02/17/21--lytes, Bun/Cr improved; given sleep phase shift desirable to shift antipsychotic to pm meal with IM Zyprexa for refusal. Bedside EEG likely poor quality/low yeild but consider if no improvement. 02/16/21--Reviewed care by Dr. Garces in italics. will d/c IM Ativan in favor of Zyprexa IM for failure to take Latuda. Does take Lorazepam prn PO, adjust dose and frequency and monitor use. Will repeat labs and PO intake so variable and hard to track. 02/09/2021--admitted to U. Ativan 2mg SL TID ordered. Track Is&Os. Vitals BID. 02/10/2021--continue with ativan 2mg TID SL. Showing significant improving in catatonic symptoms since ativan trial last night. If he continues to walk around no need for DVT prophylaxis. Will consider if 302 needs to be converted to 303 based on progress today. 02/11/2021--continue with scheduled ativan. Less engagement today but still eating and drinking. Plan for likely 303 given his inability/reluctance to engage in treatment. Reviewed outside records. 02/12/2021--continues to refuse ativan today and won't engage with anyone nor leave his bed except to use the bathroom and to eat at night. Given some movement in the evening and to the bathroom he doesn't require DVT prophylaxis at this time but this remains a concern should he clinically worsen and will continue to monitor his nutritional and medical status closely. 02/13/2021--placed on 303 status due to ongoing decompensation due to catatonia including refusal of medication, not eating, not drinking, not communicating with anyone and lying in bed all day. Once catatonia begins to improve with treatment will aim to start latuda which helped previously. [place] to require medications over objection for ativan to treat catatonia. If catatonia does not respond quickly to ativan then will consider if DVT prophylaxis should be initiated. 02/14/2021--no significant change in behaviors with additional of scheduled ativan 2 mg BID as medication over objection. Given concern for skin breakdown consult was placed for wound nurse. Given concern for possible DVT and after discussion with hospitalist will begin lovenox 40mg subQ daily. David was able to vocalize consent for this as he remains mute and unable/unwilling to engage but explained the risks, benefits, alternatives and rationale for lovenox and that we will be offering this to him. If no changes in potential catatonia by t omorrow will likely move to antipsychotic treatment for suspected MDD with psychotic features with severe neurovegatative symptoms. 02/15/2021--Have ruled out catatonia given inconsistent response to ativan trial, multiple observed examples of volitional movement immediately following periods of patient lying in bed and mute. Subsequent catatonia scales have been negative and patient feels that his symptoms represent withdrawn features of anxiety and depression. Given bipolar depression with neurovegetative features will start latuda. Encouragingly he is eating more and drinking more and got out of bed twice last night. Risk Factors Assessment Male: Yes : Yes Do You Have Access To A Gun?: No (in supportive living enviornment, pt unable to answer ) Mental Health Diagnoses: Yes Previous Psychiatric Hospitalization: Yes Protective Factors Assessment Employed: No Interval History Identifying Information 40 yo man with history of catatonia, depression, schizoaffective disorder admitted due to concern for decompensation with failure of self-care at [facility]. Admitted on 302, now 305. Chief Complaint "I need to be able to breath fresh air or I fear I won't ever get better". Review of Systems Sleep Information Total Hours of Sleep: 6 Sleep Comments: pt on q-15 minute check. Meal Information Percent Meal Consumed - Breakfast: 100 Percent Meal Consumed - Lunch: 100 Percent Meal Consumed - Dinner: 100 Nutrition Comment: pt. OOB & had juice and 2 bowls of cereal Subjective Subjective Patient was seen & assessed and interval progress reviewed with treatment team nursing and social work. Last night David got out of bed, began responding to staff again, showered, changed his bed linens, and accepted haldol 5mg dose (half of his scheduled dose). Today he is engaging though largely isolative to this bed with his blinds pulled down. States he has not slept well "in weeks" and requests additional medication to help with this. He also asked staff to share with me that he feels he has been "dreaming while awake" which he attributes to his poor sleep. He was fairly irritable when we discussed my concerns about him going outside and potentially disengaging and not moving or lying down and becoming unresponsive to staff in addition to being on elopement precautions since he had been examining the unit doors closely in recent days. Discussed that if he continues to consistently engage with staff and providers over the next few days we can absolutely consider having him go outside for a walk but that we need to see consistency first. He was frustrated with this as he stated his desire to be able to breath fresh air in order to continue getting better. Stated we can discuss it again tomorrow if his progress continues. Physical Exam Psychiatric Orientation: alert and oriented x 3 Apperance: + disheveled Eye Contact: + fair eye contact Motor Behavior: no abnormal motor movements and + psychomotor retardation Speech: normal rate/rhythm/volume of speech Affect: + flat affect Mood: + depressed mood and + irritable mood Thought Process: + circumstantial thought process and + looseness of asso ciations Thought Content: + paranoid and + delusions Suicidal Thoughts: denies suicidal thoughts Homicidal Thoughts: denies homicidal thoughts Hallucinations: + auditory hallucinations ("dreaming while awake") and + visual hallucinations Cognition: remote memory grossly intact, attention grossly intact and language grossly intact; + recent memory not intact Insight: + impaired insight Judgement: + impaired judgement Vital Signs (Past 24 Hours) Last Vital Signs Temp 36.9 C 04/25/21 06:31 Pulse 96 H 04/25/21 06:31 Resp 16 04/25/21 06:31 BP 86/64 L 04/25/21 06:31 Pulse Ox 94 04/03/21 20:37 Results & Data ([facility]) Current Inpatient Medications Current Inpatient Medications: Current Inpatient Medications Acetaminophen (Acetaminophen 325 Mg Tab) 650 mg PO Q4H PRN PRN Reason: Headache or Minor Fever Stop: 05/11/21 10:27 Last Admin: 03/16/21 10:34 Dose: 325 mg Documented by: Al Hydrox/Mg Hydrox/Simethicone (Aluminum/Magnesium Susp 30 Ml Udc) 30 ml PO Q4H PRN PRN Reason: GI Upset Stop: 05/11/21 10:27 Benztropine Mesylate (Benztropine Mesylate 1 Mg Tab) 1 mg PO Q6 PRN PRN Reason: Muscle Spasm Stop: 05/03/21 08:40 Bismuth Subsalicylate (Bismuth Subsalicylate Liqd 236 Ml) 15 ml PO PRN PRN PRN Reason: Loose Stool Stop: 05/11/21 10:27 Diphenhydramine HCl (Diphenhydramine 50 Mg/Ml Vial) 50 mg IM BID PRN PRN Reason: Agitation Stop: 04/30/21 13:45 Folic Acid (Folic Acid 1 Mg Tab) 1 mg PO HS OG Stop: 05/10/21 21:59 Last Admin: 04/24/21 20:43 Dose: 1 mg Documented by: Haloperidol (Haloperidol 5 Mg Tab) 10 mg PO BID OG Stop: 05/24/21 20:59 Last Admin: 04/25/21 09:08 Dose: 10 mg Documented by: Haloperidol Lactate (Haloperidol Lactate 5 Mg/Ml 1 Ml Vial) 5 mg IM BID PRN PRN Reason: Agitation Stop: 04/30/21 13:45 Lorazepam (Lorazepam 1 Mg Tab) 1 mg PO Q6 PRN PRN Reason: Anxiety/Agitation Stop: 05/11/21 08:14 Last Admin: 04/04/21 20:52 Dose: 1 mg Documented by: Lorazepam (Lorazepam 2 Mg/Ml Vial (Im Use)) 2 mg IM BID PRN PRN Reason: Agitation Stop: 04/30/21 13:45 Magnesium Hydroxide (Magnesium Hydroxide Susp 30 Ml Udc) 30 ml PO DAILY PRN PRN Reason: Constipation Stop: 05/11/21 10:27 Potassium Chloride (Potassium Chloride Pwd 20 Meq Pack) 40 meq PO DAILYBD PRN PRN Reason: hypokalemia, to be given once Stop: 05/09/21 08:58 Sodium Chloride (Sodium Chloride 0.65% Na Soln 45 Ml ([place])) 1 - 2 sprays NA PRN PRN PRN Reason: Nasal Dryness/Congestion Stop: 05/11/21 10:27 Mental Health & Subst Abuse Tx Psychiatrist Name of Psychiatrist: Oniel Negron Psychiatrist's Date of Appointment with Psychiatrist: 03/13/21 Time of Appointment with Psychiatrist: 9:20am Psychiatric Appointment Comment: Zoom *is on waiting list for appt. sooner Therapist Name of Therapist: Unknown Shower Attendant Name of Shower Attendant: Mauri ([facility]) Post Discharge Appointments Primary Care Physician Name Of Family Doctor: Unknown
[2021-04-25] MEDS: FOLIC ACID 1 MG TAB PO SCH (20:52)
[2021-04-25] MEDS: traZODone HCL 50 MG TAB PO SCH (21:08)
[2021-04-26] MEDS: haloperidoL 5 MG TAB PO SCH ×2 (08:58→20:34)
--- NOTE | 2021-04-26 14:21 | Psychiatric Progress Note ---
Date of Service April 26, 2021 Impression / Recommendations Impression The patient is a 40 year old with a history of schizoaffective disorder who was admitted for failure of self-care and worsening decompensation at shelter. His functioning is poor with inconsistent activity and PO intake despite trials of Ativan, Emsam patch, IM Zyprexa, and now Haldol on 305 commitment. He will not take PO meds consistently and is largely mute though this is improving slightly in recent days with more consistent engagement. Both inpatient attendings and his outpatient psychiatrist agree that ECT is medically necessary and a court order has been granted. MNPR due to psychiatric condition with ongoing poor hygiene and limited cooperation requiring bed changes with urination and paranoia. 04/26/21:three days of improved engagement and accepting of his medication which he is tolerating well. He briefly engaged in family meeting via [employer] mt[employer] which was encouraging especially since he has not seen his parents in 13 years. He continues to have limited insight and judgment into the degree of his recent decompensation and need for ongoing treatment as he now identifies housing as his only concern. He is not felt to be appropriate to go outside due to his unpredictable behaviors (usually refuses to or cannot follow any staff directions), but if engagement persists then could consider time outside in coming days. Remains severely decompensated and in need of inpatient psychiatric hospitalization. Plan: Attended one hour family meeting with his parents and SW and briefly joined by David. Awaiting ECT bed availability at [facility] as our facility does not offer ECT. (1) Schizoaffective disorder: 04/26/21: continue haldol 10mg BID and trazodone 50mg qhs for insomnia. Awaiting ECT bed availability. 04/25/21: adding trazodone 50mg qhs for insomnia. 04/24/21: increase haldol back to 10mg BID as he continued to refuse lower dose. If he remains sedentary after tomorrow will re-start lovenox. 04/23/21: reduce to haldol 5mg qhs po after discussion with David with goal of improving adherence and folic acid, will d/c lovenox. Now on 305 commitment. 04/22/21: continue haldol and folate and lovenox. Completed 305 commitment paperwork. 04/21/21: continue haldol 10mg BID po and lovenox and folic acid. Day 1 of increased movement. 04/20/21: continue current medication of haldol 10 mg BID po, not doing IM for refusal. Awaiting response from ECT referral. If he can consistently show that he is moving and walking for three days in a row then we can stop the lovenox. 04/19/21: court testimony for 30 min in front of [facility] Judge Ruest answering questions about the patients condition, prognosis, treatment course, rationale for ECT and court order, risks/benefits of ECT. She will deliberated a nd the hospital deputy prosecuting attorney forwarded the signed court order for ECT. Dr. Schmitt, Migdalia, and Mili updated. 04/16/21: Haldol 10 mg bid with IM for refusal of PO. Medicine consult appreciated. Referral packet sent to [facility]. 04/13/21: attempt am dose of 5 mg Haldol, continue 10 hs with Ativan. Needs med clearance for ECT. Will hold Lovenox today as some improvement in activity. 04/12/21: continue with haldol and ativan. He was provided with legal paperwork regarding filing for ECT. 04/11/21: continue with haldol and ativan po or IM. Adding mouth checks if he accepts po haldol. Consulted hospitalist for pre-ECT physical exam. He refuses attempts to clip his fingernails. 04/10/21: Add folate supplement. Potassium level improving. Sent out labs for copper and ceruloplasmin. Engaged verbally with multiple staff and briefly watched movie with peers today. Started process for court-ordered ECT. 04/09/21: continue haldol and ativan po or IM. Working on process for considera tion for court-ordered ECT. 04/08/21: continue haldol 10mg po or IM and ativan po or IM. Took potassium supplementation in juice yesterday will recheck labs in a few days. Agree with plan to pursue court order for ECT given non-responsiveness to other medication trials so far and his refusal to consistently take any po medication options. 04/07/21: limited PO, remains hypokalemic but overall labs stable 04/06/21: repeat labs in am, consider medicine consult (currently no acute indication for transfer), previous experience was he was less active when prescribed Zyprexa so monitor risks/benefits of Haldol. 04/05/21: attempt to replete K again, Discontinue Emsam patch, pursue court order for ECT when offices reopen after hol. Continue IM Haldol with Ativan trial for now. 04/04/21: Haldol increased to 10 mg PO or IM yesterday with no change overnight, will shift to pm. Will d/c Emsam patch after tomorrow's dose as no sustained benefit and will need to pursue court order for ECT after holiday weekend. 03/31/21: increase haldol to 5 mg po or IM and ativan 1mg po or IM. Continue Emsam patch. 03/30/21: continue haldol 2.5 mg po or IM and ativan 1mg po or IM. Continue Emsam patch. Walked three laps around the unit with encouragement today. 03/29/21: Starting haldol 2.5 mg po or IM and ativan 1mg po or IM for suspected psychosis with negativism, lack of personal care, thought blocking/negative sx and avolition. Continue Emsam patch. Discontinued modafinil. 03/28/21: continue to offer medications. Gave ativan 1mg IM x1 last night after additional episode of spitting. Repeat labwork today showing improvement in nutritional status (albumin and total protein now normal and BUN/CR wnl). 03/27/21: continue to offer medications, he continues to refuse. Continuing to explore ways to involve his extended family or other aspects of care which could incentive his engagement in care. May need to consider if a less sedating antipsychotic medication should be re-trialed. Referral for [facility] has been accepted. 03/26/21: continue current medications, refused modafinil but will try again over next few days. Continue with ativan 1mg BIDM po 03/25/21: start modafinil 50 mg qAM, will monitor carefully for any interactions with MAOI. Discontinued ativan IM for refusal of po. Reducing ativan dosing from TID po to BID po in the afternoon to avoid combining morning stimulant with morning benzo as this would be counterproductive to stimulant trial. 03/24/21: continue current medications. 03/23/21: labwork done today and reviewed no significant changes from prior labwork, still has elevated Cl. Continue with lovenox, emsam patch, and ativan 1 mg po TID (with BID IM for refusal) 03/22/21: labs in am and resume Lovenox given regression past 3 days. 03/18/21: unable to care for self outside of hospital, continue Emsam patch, will not increase as I do not believe he can follow appropriate dietary restrictions at higher doses. 03/17/21: Ativan 1 mg PO TID (inject up to BID for refusal). 03/16/21: resume IM Ativan for refusal of PO Ativan. 03/15/21: Continue current medications. Making referral to [facility] given slow progression and he is still very far from his baseline which will require extended treatment and thus he will be best served by a longer term treatment approach. 03/14/21: Continue with current medications. Reviewed labwork, K+ improved but still signs of poor nutrition. Elevated ALT could be side effect from Emsam patch (occurs in <1/100 - 05/999 pts), will continue to monitor. may be able to consider transition to a po medication if he remains consistent with accepting po medications but for now Emsam patch benefit is felt to outweigh risk of slight ALT elevation. 03/13/21: Continue with current medications. Supports from [employer] will visit tomorrow. Labwork CMP tomorrow morning to ensure correction of hypokalemia. 03/12/21: Continue with current medications. Discussed with treatment team having his shelter supports come for a visit and they will visit on . Reviewed his interactions with staff during evening hours/overnight in the chart and continues to show progress with engagement. 03/11/21: Continue with ativan 1 mg BID po, canceled IM as he is agreeing to voluntary po. Given steady improvement over the last 1 week consistent with expected timeline for symptom improvement from Emsam patch he may no longer need longer term care option if improvement persists at this rate. If progress stalls or regression occurs then will reconsider if longer term option for treatment is required. 03/10/21: Reduce ativan to 1 mg BID due to dizziness, low BP and possible fall yesterday. Will discontinue lovenox per his request and since he is now consistently moving around throughout the day and at night, discussed risk of blood clots if he doesn't continue to move around and ambulate frequently which he vocalized understanding of and agreement with. Given improvement in nutritional intake will hold off on rechecking labwork for now, will get repeat labs in 1 week on 03/14. 03/09/21: Reviewed interim progress. Continue Emsam patch and ativan 2mg BID tri al-will monitor for excessive sedation. 03/08/21: Ativan 2 mg BID trial. 03/07/21: patient seen by neurology, appreciate input, seems severe vegetative symptoms due to depression though last few doses of Ativan have been more effective than previous. Continue Ativan 1 mg po BID (IM for refusal). Attempt to replete K with powder dissolved in juice. 03/04/21: will explore personal senior care as concerns he will not improve to point he can make meals/meet requirements to return to [facility] during this stay. 03/03/21--continue same. Cannot attempt coadmin with stimulant trial for hypersomnia as contraindicated with MAOI. No medical decompensation that would necessitate referral to medical or seeking court order for ECT. At minimum behaviors are challenging but more appropriate when willing to interact with staff. Need to consider longer term care options given slow progression. 03/02/21--interim care reviewed. Continue EMSAM and Lovenox injection. 03/01/21--Day 9 of Emsam patch. Continuing with behavioral plan to encourage behavioral activation-he was provided with plan with goals of having him come out of his room to eat meals, cooperate with repositioning, stand up when his sheets are changed/or if he prefers to stay in bed until the evening then clean sheets can be provided for him to put on the bed or request help putting on the bed in the evening, and continue independently voiding in his bedside urinal, shower can be started for him but he should be encouraged to get into the shower on his own, encourage him to address basic hygiene by continuing to provide him with easy access to his toothbrush, shampoo, etc. 02/28/21--Day 8 of Emsam patch. Now seeing new pattern of daily food intake which is encouraging. Continues to present with regressed behaviors and refusal to interact during the day. 02/27/21--Continue with Emsam patch. Getting out of bed more in the evenings and eating more. Lack of engagement during the day was volitional-pulling blanket over his head after he saw me enter his room. Also becoming more irritable with staff when he is encouraged to do more on his own for behavioral activation. 02/26/21-Continue with Emsam patch. 304 status granted. Ate last night and interacted with staff but no engagement today. 02/25/21--Continues to demonstrate severe depression with neurovegetative symptoms with no engagement with staff. Behavioral plan challenged by finding a reward/incentive that he enjoys. Continuing to encourage behavioral activation. Petitioned for 304 status with hearing scheduled for tomorrow given ongoing symptom burden and need for ongoing treatment. Remains on lovenox for DVT prophylaxis. Continue with Emsam patch. 02/24/21--Remains isolative and will not engage verbally. Encouragingly is attending slightly more to some of his ADLs, will continue with behavioral plan in hopes to continue encouraging behavioral activation although food does not seem to be a good motivator/reward for him. Will continue to think about other possible motivators for him to help encourage increased activity, po intake and engagement with therapeutic milieu. No signs of HTN or other side effects from MAOI at this point. 02/23/21--Continues to demonstrate neurovegetative symptoms of depression, remaining in bed most of the day but sometimes more engagement in the evenings. Will implement behavioral plan to encourage behavioral activation to treat neurovegetative symptoms in conjunction with Emsam as well as to encourage increased participation with ADLs. Nursing to provide him with tools to help him eat and promote good hygiene (brining in meals, supplies to wash up) and then if he does this independently will bring in ice cream or chips as reward to see if this helps with activation and increased po intake. 02/22/21--neurologic work up with EEG and brain MRI unremarkable, continue Emsam trial. 02/21/21--complex differential--depression with psychotic features in a patient with bipolar disorder most likely, certainly not typcial catatonia. No hx of hyperphagia or hypersexuality known that would suggest Kleine-Hess syndrome. Will proceed with Emsam patch 6 mg trial as only means to administer antidepress ant. Will check with an ECT facility to determine if can treat patient if pursue a court order (will await emsam trial first). MRI brain (patient will need various x rays first as can't answer screening questions, no hx of pacemaker on chart). bedside EEG to rule out status epilepticus. 02/19/21--non-formulary request for Emsam patch. Hasn't taken antidepressants for at least 6 weeks. Would reconsider current med doses when this becomes available. without antidepressant he will continue to decompensate medically and is at significant risk of further decompensation. 02/17/21--lytes, Bun/Cr improved; given sleep phase shift desirable to shift antipsychotic to pm meal with IM Zyprexa for refusal. Bedside EEG likely poor quality/low yeild but consider if no improvement. 02/16/21--Reviewed care by Dr. Garces in italics. will d/c IM Ativan in favor of Zyprexa IM for failure to take Latuda. Does take Lorazepam prn PO, adjust dose and frequency and monitor use. Will repeat labs and PO intake so variable and hard to track. 02/09/2021--admitted to U. Ativan 2mg SL TID ordered. Track Is&Os. Vitals BID. 02/10/2021--continue with ativan 2mg TID SL. Showing significant improving in catatonic symptoms since ativan trial last night. If he continues to walk around no need for DVT prophylaxis. Will consider if 302 needs to be converted to 303 based on progress today. 02/11/2021--continue with scheduled ativan. Less engagement today but still eating and drinking. Plan for likely 303 given his inability/reluctance to engage in treatment. Reviewed outside records. 02/12/2021--continues to refuse ativan today and won't engage with anyone nor leave his bed except to use the bathroom and to eat at night. Given some movement in the evening and to the bathroom he doesn't require DVT prophylaxis at this time but this remains a concern should he clinically worsen and will continue to monitor his nutritional and medical status closely. 02/13/2021--placed on 303 status due to ongoing decompensation due to catatonia including refusal of medication, not eating, not drinking, not communicating with anyone and lying in bed all day. Once catatonia begins to improve with tr eatment will aim to start latuda which helped previously. Sanderson to require medications over objection for ativan to treat catatonia. If catatonia does not respond quickly to ativan then will consider if DVT prophylaxis should be initiated. 02/14/2021--no significant change in behaviors with additional of scheduled ativan 2 mg BID as medication over objection. Given concern for skin breakdown consult was placed for wound nurse. Given concern for possible DVT and after discussion with hospitalist will begin lovenox 40mg subQ daily. David was able to vocalize consent for this as he remains mute and unable/unwilling to engage but explained the risks, benefits, alternatives and rationale for lovenox and that we will be offering this to him. 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 02/15/2021--Have ruled out catatonia given inconsistent response to ativan trial, multiple observed examples of volitional movement immediately following periods of patient lying in bed and mute. Subsequent catatonia scales have been negative and patient feels that his symptoms represent withdrawn features of anxiety and depression. Given bipolar depression with neurovegetative features will start latuda. Encouragingly he is eating more and drinking more and got out of bed twice last night. Risk Factors Assessment Male: Yes : Yes Do You Have Access To A Gun?: No (in supportive living enviornment, pt unable to answer ) Mental Health Diagnoses: Yes Previous Psychiatric Hospitalization: Yes Protective Factors Assessment Employed: No Interval History Identifying Information 40 yo man with history of catatonia, depression, schizoaffective disorder admitted due to concern for decompensation with failure of self-care at [facility]. Admitted on 302, now 305. Chief Complaint "I think housing is what everyone should be working on to help me the most". Review of Systems Sleep Information Total Hours of Sleep: 5.5 Sleep Comments: pt on q-15 minute check. Meal Information Percent Meal Consumed - Breakfast: 50 Percent Meal Consumed - Lunch: 100 Percent Meal Consumed - Dinner: 50 Nutrition Comment: pt. OOB & had juice and 2 bowls of cereal Subjective Subjective Patient was seen & assessed and interval progress reviewed with treatment team nursing and social work. Engaged with staff last night and took both doses of haldol. 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 Today joined his family meeting briefly though noted his anxiety about it and was only able to tolerate saying hello. David provided verbal permission for me to continue talking to his parents and share about his treatment and progress so far. I remained second watch sergeant with [employer] and discussed his hospital course, diagnosis, treatments so far and plan for ECT and answered their questions. They remain highly supportive of David and hope he will continue to engage with them. They are also willing to provide some written history about his earlier treatments and hospitalizations as they have not seen him in 13 years as he estranged himself from them. His parents noted that in the past he used to have anxiety related to intrusive thoughts about violent images and that there is a strong family history of OCD. Later in the afternoon met with David. He feels the trazodone helped him sleep and he likes having this. He denied any medication side effects and continues to tolerate the haldol. He noted that he feels housing is the most important thing for him to get figured out and that this will help him feel better. He would like to go outside and we discussed my concerns but that if he continues to engage like he did yesterday and today that we could consider time outside in the next few days. Physical Exam Psychiatric Orientation: alert and oriented x 3 Apperance: appropriately dressed and + disheveled Eye Contact: + fair eye contact Motor Behavior: steady gait and station and no abnormal motor movements; n EPS and n akathisia Speech: normal rate/rhythm/volume of speech Affect: + flat affect Mood: + depressed mood and + anxious mood Thought Process: + circumstantial thought process Thought Content: reality based without delusions Suicidal Thoughts: denies suicidal thoughts Homicidal Thoughts: denies homicidal thoughts Hallucinations: no auditory hallucinations and no visual hallucinations Cognition: recent memory grossly intact, remote memory grossly intact, attention grossly intact and language grossly intact Insight: + impaired insight Judgement: + severely impaired judgement Vital Signs (Past 24 Hours) Last Vital Signs Temp 36.4 C 04/25/21 20:00 Pulse 91 H 04/26/21 06:40 Resp 16 04/26/21 06:40 BP 102/69 04/26/21 06:40 Pulse Ox 94 04/03/21 20:37 Results & Data ([facility]) Current Inpatient Medications Current Inpatient Medications: Current Inpatient Medications Acetaminophen (Acetaminophen 325 Mg Tab) 650 mg PO Q4H PRN PRN Reason: Headache or Minor Fever Stop: 05/11/21 10:27 Last Admin: 03/16/21 10:34 Dose: 325 mg Documented by: Al Hydrox/Mg Hydrox/Simethicone (Aluminum/Magnesium Susp 30 Ml Udc) 30 ml PO Q4H PRN PRN Reason: GI Upset Stop: 05/11/21 10:27 Benztropine Mesylate (Benztropine Mesylate 1 Mg Tab) 1 mg PO Q6 PRN PRN Reason: Muscle Spasm Stop: 05/03/21 08:40 Bismuth Subsalicylate (Bismuth Subsalicylate Liqd 236 Ml) 15 ml PO PRN PRN PRN Reason: Loose Stool Stop: 05/11/21 10:27 Diphenhydramine HCl (Diphenhydramine 50 Mg/Ml Vial) 50 mg IM BID PRN PRN Reason: Agitation Stop: 04/30/21 13:45 Folic Acid (Folic Acid 1 Mg Tab) 1 mg PO HS OG Stop: 05/10/21 21:59 Last Admin: 04/25/21 20:52 Dose: 1 mg Documented by: Haloperidol (Haloperidol 5 Mg Tab) 10 mg PO BID OG Stop: 05/24/21 20:59 Last Admin: 04/26/21 08:58 Dose: 10 mg Documented by: Haloperidol Lactate (Haloperidol Lactate 5 Mg/Ml 1 Ml Vial) 5 mg IM BID PRN PRN Reason: Agitation Stop: 04/30/21 13:45 Lorazepam (Lorazepam 1 Mg Tab) 1 mg PO Q6 PRN PRN Reason: Anxiety/Agitation Stop: 05/11/21 08:14 Last Admin: 04/04/21 20:52 Dose: 1 mg Documented by: Lorazepam (Lorazepam 2 Mg/Ml Vial (Im Use)) 2 mg IM BID PRN PRN Reason: Agitation Stop: 04/30/21 13:45 Magnesium Hydroxide (Magnesium Hydroxide Susp 30 Ml Udc) 30 ml PO DAILY PRN PRN Reason: Constipation Stop: 05/11/21 10:27 Potassium Chloride (Potassium Chloride Pwd 20 Meq Pack) 40 meq PO DAILYBD PRN PRN Reason: hypokalemia, to be given once Stop: 05/09/21 08:58 Sodium Chloride (Sodium Chloride 0.65% Na Soln 45 Ml (Spelter)) 1 - 2 sprays NA PRN PRN PRN Reason: Nasal Dryness/Congestion Stop: 05/11/21 10:27 Trazodone HCl (Trazodone Hcl 50 Mg Tab) 50 mg PO HS OG Stop: 05/25/21 21:59 Last Admin: 04/25/21 21:08 Dose: 50 mg Documented by: Mental Health & Subst Abuse Tx Psychiatrist Name of Psychiatrist: Oniel Negron Psychiatrist's Date of Appointment with Psychiatrist: 03/13/21 Time of Appointment with Psychiatrist: 9:20am Psychiatric Appointment Comment: Zoom *is on waiting list for appt. sooner Therapist Name of Therapist: Unknown Database Programmer Name of Database Programmer: Mauri ([id number]) Post Discharge Appointments Primary Care Physician Name Of Family Doctor: Unknown
[2021-04-26] MEDS: traZODone HCL 50 MG TAB PO SCH (20:34)
[2021-04-26] MEDS: FOLIC ACID 1 MG TAB PO SCH (20:34)
[2021-04-27] MEDS: haloperidoL 5 MG TAB PO SCH ×2 (09:02→20:41)
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
[2021-04-27] MEDS: FOLIC ACID 1 MG TAB PO SCH (21:04)
[2021-04-27] MEDS: traZODone HCL 100 MG TAB PO SCH (21:04)
[2021-04-28] MEDS: haloperidoL 5 MG TAB PO SCH ×2 (09:34→21:20)
--- NOTE | 2021-04-28 13:33 | Psychiatric Progress Note ---
Date of Service April 28, 2021 Impression / Recommendations Impression The patient is a 40 year old with a history of schizoaffective disorder who was admitted for failure of self-care and worsening decompensation at assisted. His functioning is poor with inconsistent activity and PO intake despite trials of Ativan, Emsam patch, IM Zyprexa, and now Haldol on 305 commitment. He will not take PO meds consistently and is largely mute though this is improving slightly in recent days with more consistent engagement. Both inpatient attendings and his outpatient psychiatrist agree that ECT is medically necessary and a court order has been granted. MNPR as behavior continues to wax/wane. 04/28/21: less engaged today but still meeting his basic needs, but only with support of structure milieu. He cannot tolerate any discussion on problem solving or past behavior. (1) Schizoaffective disorder: 04/28/21: Re-reviewed risks/benefits of ECT and patient states "I'd still consider it". He is requesting to resume his regular medication regimen as prefers Zyprexa even after discussion of metabolic profile given environmental specialist side effects of Haldol. Discussed that at least for near future I'd like him to take both with the hopes he will still agree to a COPPOLA. Risks/benefits/alternatives reviewed re: Lamictal for mood stabilization. Discussion included but was not limited to slow titration to decrease risks of Huey's Yamil syndrome. Patient agrees to hold med/notify current prescriber of rash immediately. Consider Wellbutrin restart soon, has dopaminergic properties so don't want to exacerbate psychosis. 04/27/21: Patient voices he does not want ECT at this time but would like more time to think about it/discuss. Increase trazodone. Therapeutic time outside when security able/appropriate. He declines COPPOLA Haldol at this time. 04/26/21: continue haldol 10mg BID and trazodone 50mg qhs for insomnia. Awaiting ECT bed availability. 04/25/21: adding trazodone 50mg qhs for insomnia. 04/24/21: increase haldol back to 10mg BID as he continued to refuse lower dose. If he remains sedentary after tomorrow will re-start lovenox. 04/23/21: reduce to haldol 5mg qhs po after discussion with David with goal of improving adherence and folic acid, will d/c lovenox. Now on 305 commitment. 04/22/21: continue haldol and folate and lovenox. Completed 305 commitment paperwork. 04/21/21: continue haldol 10mg BID po and lovenox and folic acid. Day 1 of increased movement. 04/20/21: continue current medication of haldol 10 mg BID po, not doing IM for refusal. Awaiting response from ECT referral. If he can consistently show that he is moving and walking for three days in a row then we can stop the lovenox. 04/19/21: court testimony for 30 min in front of [facility] Judge Ruest answering questions about the patients condition, prognosis, treatment course, rationale for ECT and court order, risks/benefits of ECT. She will deliberated and the hospital criminal defense attorney forwarded the signed court order for ECT. Dr. Rigo katz, Migdalia, and Mili updated. 04/16/21: Haldol 10 mg bid with IM for refusal of PO. Medicine consult appreciated. Referral packet sent to [facility]. 04/13/21: attempt am dose of 5 mg Haldol, continue 10 hs with Ativan. Needs med clearance for ECT. Will hold Lovenox today as some improvement in activity. 04/12/21: continue with haldol and ativan. He was provided with legal paperwork regarding filing for ECT. 04/11/21: continue with haldol and ativan po or IM. Adding mouth checks if he accepts po haldol. Consulted hospitalist for pre-ECT physical exam. He refuses attempts to clip his fingernails. 04/10/21: Add folate supplement. Potassium level improving. Sent out labs for copper and ceruloplasmin. Engaged verbally with multiple staff and briefly watched movie with peers today. Started process for court-ordered ECT. 04/09/21: continue haldol and ativan po or IM. Working on process for consideration for court-ordered ECT. 04/08/21: continue haldol 10mg po or IM and ativan po or IM. Took potassium supplementation in juice yesterday will recheck labs in a few days. Agree with plan to pursue court order for ECT given non-responsiveness to other medication trials so far and his refusal to consistently take any po medication options. 04/07/21: limited PO, remains hypokalemic but overall labs stable 04/06/21: repeat labs in am, consider medicine consult (currently no acute indication for transfer), previous experience was he was less active when prescribed Zyprexa so monitor risks/benefits of Haldol. 04/05/21: attempt to replete K again, Discontinue Emsam patch, pursue court order for ECT when offices reopen after hol. Continue IM Haldol with Ativan trial for now. 04/04/21: Haldol increased to 10 mg PO or IM yesterday with no change overnight, will shift to pm. Will d/c Emsam patch after tomorrow's dose as no sustained benefit and will need to pursue court order for ECT after holiday weekend. 03/31/21: increase haldol to 5 mg po or IM and ativan 1mg po or IM. Continue Emsam patch. 03/30/21: continue haldol 2.5 mg po or IM and ativan 1mg po or IM. Continue Emsam patch. Walked three laps around the unit with encouragement today. 03/29/21: Starting haldol 2.5 mg po or IM and ativan 1mg po or IM for suspected psychosis with negativism, lack of personal care, thought blocking/negative sx and avolition. Continue Emsam patch. Discontinued modafinil. 03/28/21: continue to offer medications. Gave ativan 1mg IM x1 last night after additional episode of spitting. Repeat labwork today showing improvement in nutritional status (albumin and total protein now normal and BUN/CR wnl). 03/27/21: continue to offer medications, he continues to refuse. Continuing to explore ways to involve his extended family or other aspects of care which could incentive his engagement in care. May need to consider if a less sedating antipsychotic medication should be re-trialed. Referral for [facility] has been accepted. 03/26/21: continue current medications, refused modafinil but will try again over next few days. Continue with ativan 1mg BIDM po 03/25/21: start modafinil 50 mg qAM, will monitor carefully for any interactions with MAOI. Discontinued ativan IM for refusal of po. Reducing ativan dosing from TID po to BID po in the afternoon to avoid combining morning stimulant with morning benzo as this would be counterproductive to stimulant trial. 03/24/21: continue current medications. 03/23/21: labwork done today and reviewed no significant changes from prior labwork, still has elevated Cl. Continue with lovenox, emsam patch, and ativan 1 mg po TID (with BID IM for refusal) 03/22/21: labs in am and resume Lovenox given regression past 3 days. 03/18/21: unable to care for self outside of hospital, continue Emsam patch, will not increase as I do not believe he can follow appropriate dietary restrictions at higher doses. 03/17/21: Ativan 1 mg PO TID (inject up to BID for refusal). 03/16/21: resume IM Ativan for refusal of PO Ativan. 03/15/21: Continue current medications. Making referral to [facility] given slow progression and he is still very far from his baseline which will require extended treatment and thus he will be best served by a longer term treatment approach. 03/14/21: Continue with current medications. Reviewed labwork, K+ improved but still signs of poor nutrition. Elevated ALT could be side effect from Emsam patch (occurs in <1/100 - 05/999 pts), will continue to monitor. may be able to consider transition to a po medication if he remains consistent with accepting po medications but for now Emsam patch benefit is felt to outweigh risk of slight ALT elevation. 03/13/21: Continue with current medications. Supports from [employer] will visit tomorrow. Labwork CMP tomorrow morning to ensure correction of hypokalemia. 03/12/21: Continue with current medications. Discussed with treatment team having his assisted supports come for a visit and they will visit on . Reviewed his interactions with staff during evening hours/overnight in the chart and continues to show progress with engagement. 03/11/21: Continue with ativan 1 mg BID po, canceled IM as he is agreeing to voluntary po. Given steady improvement over the last 1 week consistent with expected timeline for symptom improvement from Emsam patch he may no longer need longer term care option if improvement persists at this rate. If progress stalls or regression occurs then will reconsider if longer term option for treatment is required. 03/10/21: Reduce ativan to 1 mg BID due to dizziness, low BP and possible fall yesterday. Will discontinue lovenox per his request and since he is now consistently moving around throughout the day and at night, discussed risk of blood clots if he doesn't continue to move around and ambulate frequently which he vocalized understanding of and agreement with. Given improvement in nutritional intake will hold off on rechecking labwork for now, will get repeat labs in 1 week on 03/14. 03/09/21: Reviewed interim progress. Continue Emsam patch and ativan 2mg BID trial-will monitor for excessive sedation. 03/08/21: Ativan 2 mg BID trial. 03/07/21: patient seen by neurology, appreciate input, seems severe vegetative symptoms due to depression though last few doses of Ativan have been more effective than previous. Continue Ativan 1 mg po BID (IM for refusal). Attempt to replete K with powder dissolved in juice. 03/04/21: will explore personal group home as concerns he will not improve to point he can make meals/meet requirements to return to [facility] during this stay. 03/03/21--continue same. Cannot attempt coadmin with stimulant trial for hypersomnia as contraindicated with MAOI. No medical decompensation that would necessitate referral to medical or seeking court order for ECT. At minimum behaviors are challenging but more appropriate when willing to interact with staff. Need to consider longer term care options given slow progression. 03/02/21--interim care reviewed. Continue EMSAM and Lovenox injection. 03/01/21--Day 9 of Emsam patch. Continuing with behavioral plan to encourage behavioral activation-he was provided with plan with goals of having him come out of his room to eat meals, cooperate with repositioning, stand up when his sheets are changed/or if he prefers to stay in bed until the evening then clean sheets can be provided for him to put on the bed or request help putting on the bed in the evening, and continue independently voiding in his bedside urinal, shower can be started for him but he should be encouraged to get into the shower on his own, encourage him to address basic hygiene by continuing to provide him with easy access to his toothbrush, shampoo, etc. 02/28/21--Day 8 of Emsam patch. Now seeing new pattern of daily food intake which is encouraging. Continues to present with regressed behaviors and refusal to interact during the day. 02/27/21--Continue with Emsam patch. Getting out of bed more in the evenings and eating more. Lack of engagement during the day was volitional-pulling blanket over his head after he saw me enter his room. Also becoming more irritable with staff when he is encouraged to do more on his own for behavioral activation. 02/26/21-Continue with Emsam patch. 304 status granted. Ate last night and interacted with staff but no engagement today. 02/25/21--Continues to demonstrate severe depression with neurovegetative symptoms with no engagement with staff. Behavioral plan challenged by finding a reward/incentive that he enjoys. Continuing to encourage behavioral activation. Petitioned for 304 status with hearing scheduled for tomorrow given ongoing symptom burden and need for ongoing treatment. Remains on lovenox for DVT prophylaxis. Continue with Emsam patch. 02/24/21--Remains isolative and will not engage verbally. Encouragingly is attending slightly more to some of his ADLs, will continue with behavioral plan in hopes to continue encouraging behavioral activation although food does not seem to be a good motivator/reward for him. Will continue to think about other possible motivators for him to help encourage increased activity, po intake and engagement with therapeutic milieu. No signs of HTN or other side effects from MAOI at this point. 02/23/21--Continues to demonstrate neurovegetative symptoms of depression, roosevelt ining in bed most of the day but sometimes more engagement in the evenings. Will implement behavioral plan to encourage behavioral activation to treat neurovegetative symptoms in conjunction with Emsam as well as to encourage increased participation with ADLs. Nursing to provide him with tools to help him eat and promote good hygiene (brining in meals, supplies to wash up) and then if he does this independently will bring in ice cream or chips as reward to see if this helps with activation and increased po intake. 02/22/21--neurologic work up with EEG and brain MRI unremarkable, continue Emsam trial. 02/21/21--complex differential--depression with psychotic features in a patient with bipolar disorder most likely, certainly not typcial catatonia. No hx of hyperphagia or hypersexuality known that would suggest Kleine-Hess syndrome. Will proceed with Emsam patch 6 mg trial as only means to administer antidepressant. Will check with an ECT facility to determine if can treat patient if pursue a court order (will await emsam trial first). MRI brain (patient will need various x rays first as can't answer screening questions, no hx of pacemaker on chart). bedside EEG to rule out status epilepticus. 02/19/21--non-formulary request for Emsam patch. Hasn't taken antidepressants for at least 6 weeks. Would reconsider current med doses when this becomes available. without antidepressant he will continue to decompensate medically and is at significant risk of further decompensation. 02/17/21--lytes, Bun/Cr improved; given sleep phase shift desirable to shift antipsychotic to pm meal with IM Zyprexa for refusal. Bedside EEG likely poor quality/low yeild but consider if no improvement. 02/16/21--Reviewed care by Dr. Garces in italics. will d/c IM Ativan in favor of Zyprexa IM for failure to take Latuda. Does take Lorazepam prn PO, adjust dose and frequency and monitor use. Will repeat labs and PO intake so variable and hard to track. 02/09/2021--admitted to [facility]. Ativan 2mg SL TID ordered. Track Is&Os. Vitals BID. 02/10/2021--continue with ativan 2mg TID SL. Showing significant improving in catatonic symptoms since ativan trial last night. If he continues to walk around no need for DVT prophylaxis. Will consider if 302 needs to be converted to 303 based on progress today. 02/11/2021--continue with scheduled ativan. Less engagement today but still eat ing and drinking. Plan for likely 303 given his inability/reluctance to engage in treatment. Reviewed outside records. 02/12/2021--continues to refuse ativan today and won't engage with anyone nor le ave his bed except to use the bathroom and to eat at night. Given some movement in the evening and to the bathroom he doesn't require DVT prophylaxis at this time but this remains a concern should he clinically worsen and will continue to monitor his nutritional and medical status closely. 02/13/2021--placed on 303 status due to ongoing decompensation due to catatonia including refusal of medication, not eating, not drinking, not communicating with anyone and lying in bed all day. Once catatonia begins to improve with treatment will aim to start latuda which helped previously. Elberta to require medications over objection for ativan to treat catatonia. If catatonia does not respond quickly to ativan then will consider if DVT prophylaxis should be initiated. 02/14/2021--no significant change in behaviors with additional of scheduled ativan 2 mg BID as medication over objection. Given concern for skin breakdown consult was placed for wound nurse. Given concern for possible DVT and after d iscussion with hospitalist will begin lovenox 40mg subQ daily. David was able to vocalize consent for this as he remains mute and unable/unwilling to engage but explained the risks, benefits, alternatives and rationale for lovenox and that we will be offering this to him. 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 02/15/2021--Have ruled out catatonia given inconsistent response to ativan trial, multiple observed examples of volitional movement immediately following periods of patient lying in bed and mute. Subsequent catatonia scales have been negative and patient feels that his symptoms represent withdrawn features of anxiety and depression. Given bipolar depression with neurovegetative features will start latuda. Encouragingly he is eating more and drinking more and got out of bed twice last night. Risk Factors Assessment Male: Yes : Yes Do You Have Access To A Gun?: No (in supportive living enviornment, pt unable to answer ) Mental Health Diagnoses: Yes Previous Psychiatric Hospitalization: Yes Protective Factors Assessment Employed: No Interval History Identifying Information 40 yo man with history of catatonia, depression, schizoaffective disorder admitted due to concern for decompensation with failure of self-care at [facility]. Admitted on 302, now 305. Chief Complaint "yeah I just want my old medications back". Review of Systems Sleep Information Total Hours of Sleep: 6.5 Sleep Comments: pt on q-15 minute checks Meal Information Percent Meal Consumed - Breakfast: 50 Percent Meal Consumed - Lunch: 80 Percent Meal Consumed - Dinner: 75 Nutrition Comment: pt. OOB & had juice and 2 bowls of cereal Subjective Subjective Patient was seen & assessed and interval progress reviewed with nursing and social work. The patient is less engaged in conversation today, likely as yesterday he was motivated to go outside. He was appropriate with security and staff and is consistently attending meals and walking laps. He feels group is beneath him and remains focussed on housing. He has told staff that he does not want ECT, today indicates that he is still considering. Is able to verbalize that previously had thought blocking and accepts this as a symptom of psychotic depression. Physical Exam Psychiatric Orientation: alert and oriented x 3 Apperance: appropriately dressed and + disheveled Eye Contact: + poor eye contact Motor Behavior: no abnormal motor movements Speech: normal rate/rhythm/volume of speech Affect: + depressed affect Mood: + depressed mood Thought Process: + concrete thought process Thought Content: reality based without delusions Suicidal Thoughts: denies suicidal thoughts Homicidal Thoughts: denies homicidal thoughts Hallucinations: no auditory hallucinations and no visual hallucinations Cognition: attention grossly intact and language grossly intact Estimated Intelligence: consistent with education level Insight: + limited insight Judgement: + limited judgement Vital Signs (Past 24 Hours) Last Vital Signs Temp 36.6 C 04/28/21 01:11 Pulse 80 04/28/21 06:44 Resp 16 04/28/21 06:44 BP 99/63 L 04/28/21 06:44 Pulse Ox 94 04/03/21 20:37 Results & Data ([facility]) Current Inpatient Medications Current Inpatient Medications: Current Inpatient Medications Acetaminophen (Acetaminophen 325 Mg Tab) 650 mg PO Q4H PRN PRN Reason: Headache or Minor Fever Stop: 05/11/21 10:27 Last Admin: 03/16/21 10:34 Dose: 325 mg Documented by: Al Hydrox/Mg Hydrox/Simethicone (Aluminum/Magnesium Susp 30 Ml Udc) 30 ml PO Q4H PRN PRN Reason: GI Upset Stop: 05/11/21 10:27 Benztropine Mesylate (Benztropine Mesylate 1 Mg Tab) 1 mg PO Q6 PRN PRN Reason: Muscle Spasm Stop: 05/03/21 08:40 Bismuth Subsalicylate (Bismuth Subsalicylate Liqd 236 Ml) 15 ml PO PRN PRN PRN Reason: Loose Stool Stop: 05/11/21 10:27 Diphenhydramine HCl (Diphenhydramine 50 Mg/Ml Vial) 50 mg IM BID PRN PRN Reason: Agitation Stop: 04/30/21 13:45 Folic Acid (Folic Acid 1 Mg Tab) 1 mg PO HS OG Stop: 05/10/21 21:59 Last Admin: 04/27/21 21:04 Dose: 1 mg Documented by: Haloperidol (Haloperidol 5 Mg Tab) 10 mg PO BID OG Stop: 05/24/21 20:59 Last Admin: 04/28/21 09:34 Dose: 10 mg Documented by: Haloperidol Lactate (Haloperidol Lactate 5 Mg/Ml 1 Ml Vial) 5 mg IM BID PRN PRN Reason: Agitation Stop: 04/30/21 13:45 Lorazepam (Lorazepam 1 Mg Tab) 1 mg PO Q6 PRN PRN Reason: Anxiety/Agitation Stop: 05/11/21 08:14 Last Admin: 04/04/21 20:52 Dose: 1 mg Documented by: Lorazepam (Lorazepam 2 Mg/Ml Vial (Im Use)) 2 mg IM BID PRN PRN Reason: Agitation Stop: 04/30/21 13:45 Magnesium Hydroxide (Magnesium Hydroxide Susp 30 Ml Udc) 30 ml PO DAILY PRN PRN Reason: Constipation Stop: 05/11/21 10:27 Potassium Chloride (Potassium Chloride Pwd 20 Meq Pack) 40 meq PO DAILYBD PRN PRN Reason: hypokalemia, to be given once Stop: 05/09/21 08:58 Sodium Chloride (Sodium Chloride 0.65% Na Soln 45 Ml ([place])) 1 - 2 sprays NA PRN PRN PRN Reason: Nasal Dryness/Congestion Stop: 05/11/21 10:27 Trazodone HCl (Trazodone Hcl 100 Mg Tab) 100 mg PO HS OG Stop: 05/27/21 21:59 Last Admin: 04/27/21 21:04 Dose: 100 mg Documented by: Mental Health & Subst Abuse Tx Psychiatrist Name of Psychiatrist: Oniel Negron Psychiatrist's Date of Appointment with Psychiatrist: 03/13/21 Time of Appointment with Psychiatrist: 9:20am Psychiatric Appointment Comment: Zoom *is on waiting list for appt. sooner Therapist Name of Therapist: Unknown Pre School Manager Name of Pre School Manager: Mauri GunterBS) Post Discharge Appointments Primary Care Physician Name Of Family Doctor: Unknown
[2021-04-28] MEDS: OLANZapine 5 MG TABLET PO SCH (21:19)
[2021-04-28] MEDS: FOLIC ACID 1 MG TAB PO SCH (21:20)
[2021-04-28] MEDS: traZODone HCL 100 MG TAB PO SCH (21:20)
[2021-04-29] MEDS: haloperidoL 5 MG TAB PO SCH ×2 (09:31→22:27)
[2021-04-29] MEDS: lamoTRIgine 25 MG TAB PO SCH (09:31)
--- NOTE | 2021-04-29 17:48 | Psychiatric Progress Note ---
Date of Service April 29, 2021 Impression / Recommendations Impression The patient is a 40 year old with a history of schizoaffective disorder who was admitted for failure of self-care and worsening decompensation at nursing home. His functioning is poor with inconsistent activity and PO intake despite trials of Ativan, Emsam patch, IM Zyprexa, and now Haldol on 305 commitment. He will not take PO meds consistently and is largely mute though this is improving slightly in recent days with more consistent engagement. Both inpatient attendings and his outpatient psychiatrist agree that ECT is medically necessary and a court order has been granted. MNPR as behavior continues to wax/wane. 04/29/21: selective participation (1) Schizoaffective disorder: 02/27/21: refusing ECT at this time, withdrew referral to [facility] and Dr. Mccarthy and hospital corporate attorney notified, staff updated [facility] and is now officially on the waitlist, sw to schedule meeting with CM. Refusing COPPOLA of Haldol but accepting PO. 04/28/21: Re-reviewed risks/benefits of ECT and patient states "I'd still consider it". 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 Discussed that at least for near future I'd like him to take both with the hopes he will still agree to a COPPOLA. Risks/benefits/alternatives reviewed re: Lamictal for mood stabilization. Discussion included but was not limited to slow titration to decrease risks of Huey's Yamil syndrome. Patient agrees to hold med/notify current prescriber of rash immediately. Consider Wellbutrin restart soon, has dopaminergic properties so don't want to exacerbate psychosis. 04/27/21: Patient voices he does not want ECT at this time but would like more time to think about it/discuss. Increase trazodone. Therapeutic time outside when security able/appropriate. He declines COPPOLA Haldol at this time. 04/26/21: continue haldol 10mg BID and trazodone 50mg qhs for insomnia. Awaiting ECT bed availability. 04/25/21: adding trazodone 50mg qhs for insomnia. 04/24/21: increase haldol back to 10mg BID as he continued to refuse lower dose. If he remains sedentary after tomorrow will re-start lovenox. 04/23/21: reduce to haldol 5mg qhs po after discussion with David with goal of improving adherence and folic acid, will d/c lovenox. Now on 305 commitment. 04/22/21: continue haldol and folate and lovenox. Completed 305 commitment paperwork. 04/21/21: continue haldol 10mg BID po and lovenox and folic acid. Day 1 of increased movement. 04/20/21: continue current medication of haldol 10 mg BID po, not doing IM for refusal. Awaiting response from ECT referral. If he can consistently show that he is moving and walking for three days in a row then we can stop the lovenox. 04/19/21: court testimony for 30 min in front of [facility] Judge Ruest answering questions about the patients condition, prognosis, treatment course, rationale for ECT and court order, risks/benefits of ECT. She will deliberated and the hospital corporate attorney forwarded the signed court order for ECT. Dr. Schmitt, Migdalia, and Mili updated. 04/16/21: Haldol 10 mg bid with IM for refusal of PO. Medicine consult appreciated. Referral packet sent to [facility]. 04/13/21: attempt am dose of 5 mg Haldol, continue 10 hs with Ativan. Needs med clearance for ECT. Will hold Lovenox today as some improvement in activity. 04/12/21: continue with haldol and ativan. He was provided with legal paperwork regarding filing for ECT. 04/11/21: continue with haldol and ativan po or IM. Adding mouth checks if he accepts po haldol. Consulted hospitalist for pre-ECT physical exam. He refuses attempts to clip his fingernails. 04/10/21: Add folate supplement. Potassium level improving. Sent out labs for copper and ceruloplasmin. Engaged verbally with multiple staff and briefly watched movie with peers today. Started process for court-ordered ECT. 04/09/21: continue haldol and ativan po or IM. Working on process for consideration for court-ordered ECT. 04/08/21: continue haldol 10mg po or IM and ativan po or IM. Took potassium supplementation in juice yesterday will recheck labs in a few days. Agree with plan to pursue court order for ECT given non-responsiveness to other medication trials so far and his refusal to consistently take any po medication options. 04/07/21: limited PO, remains hypokalemic but overall labs stable 04/06/21: repeat labs in am, consider medicine consult (currently no acute indication for transfer), previous experience was he was less active when prescribed Zyprexa so monitor risks/benefits of Haldol. 04/05/21: attempt to replete K again, Discontinue Emsam patch, pursue court order for ECT when offices reopen after hol. Continue IM Haldol with Ativan trial for now. 04/04/21: Haldol increased to 10 mg PO or IM yesterday with no change overnight, will shift to pm. Will d/c Emsam patch after tomorrow's dose as no sustained benefit and will need to pursue court order for ECT after holiday weekend. 03/31/21: increase haldol to 5 mg po or IM and ativan 1mg po or IM. Continue Emsam patch. 03/30/21: continue haldol 2.5 mg po or IM and ativan 1mg po or IM. Continue Emsam patch. Walked three laps around the unit with encouragement today. 03/29/21: Starting haldol 2.5 mg po or IM and ativan 1mg po or IM for suspected psychosis with negativism, lack of personal care, thought blocking/negative sx and avolition. Continue Emsam patch. Discontinued modafinil. 03/28/21: continue to offer medications. Gave ativan 1mg IM x1 last night after additional episode of spitting. Repeat labwork today showing improvement in nutritional status (albumin and total protein now normal and BUN/CR wnl). 03/27/21: continue to offer medications, he continues to refuse. Continuing to explore ways to involve his extended family or other aspects of care which could incentive his engagement in care. May need to consider if a less sedating antipsychotic medication should be re-trialed. Referral for [facility] has been accepted. 03/26/21: continue current medications, refused modafinil but will try again over next few days. Continue with ativan 1mg BIDM po 03/25/21: start modafinil 50 mg qAM, will monitor carefully for any interactions with MAOI. Discontinued ativan IM for refusal of po. Reducing ativan dosing from TID po to BID po in the afternoon to avoid combining morning stimulant with morning benzo as this would be counterproductive to stimulant trial. 03/24/21: continue current medications. 03/23/21: labwork done today and reviewed no significant changes from prior labwork, still has elevated Cl. Continue with lovenox, emsam patch, and ativan 1 mg po TID (with BID IM for refusal) 03/22/21: labs in am and resume Lovenox given regression past 3 days. 03/18/21: unable to care for self outside of hospital, continue Emsam patch, will not increase as I do not believe he can follow appropriate dietary restrictions at higher doses. 03/17/21: Ativan 1 mg PO TID (inject up to BID for refusal). 03/16/21: resume IM Ativan for refusal of PO Ativan. 03/15/21: Continue current medications. Making referral to [facility] given slow progression and he is still very far from his baseline which will require extended treatment and thus he will be best served by a longer term treatment approach. 03/14/21: Continue with current medications. Reviewed labwork, K+ improved but still signs of poor nutrition. Elevated ALT could be side effect from Emsam patch (occurs in <1/100 - 05/999 pts), will continue to monitor. may be able to consider transition to a po medication if he remains consistent with accepting po medications but for now Emsam patch benefit is felt to outweigh risk of slight ALT elevation. 03/13/21: Continue with current medications. Supports from [employer] will visit tomorrow. Labwork CMP tomorrow morning to ensure correction of hypokalemia. 03/12/21: Continue with current medications. Discussed with treatment team having his nursing home supports come for a visit and they will visit on . Reviewed his interactions with staff during evening hours/overnight in the chart and continues to show progress with engagement. 03/11/21: Continue with ativan 1 mg BID po, canceled IM as he is agreeing to voluntary po. Given steady improvement over the last 1 week consistent with expected timeline for symptom improvement from Emsam patch he may no longer need longer term care option if improvement persists at this rate. If progress stalls or regression occurs then will reconsider if longer term option for treatment is required. 03/10/21: Reduce ativan to 1 mg BID due to dizziness, low BP and possible fall yesterday. Will discontinue lovenox per his request and since he is now consistently moving around throughout the day and at night, discussed risk of blood clots if he doesn't continue to move around and ambulate frequently which he vocalized understanding of and agreement with. Given improvement in nutritional intake will hold off on rechecking labwork for now, will get repeat labs in 1 week on 03/14. 03/09/21: Reviewed interim progress. Continue Emsam patch and ativan 2mg BID trial-will monitor for excessive sedation. 03/08/21: Ativan 2 mg BID trial. 03/07/21: patient seen by neurology, appreciate input, seems severe vegetative symptoms due to depression though last few doses of Ativan have been more effective than previous. Continue Ativan 1 mg po BID (IM for refusal). Attempt to replete K with powder dissolved in juice. 03/04/21: will explore personal assisted as concerns he will not improve to point he can make meals/meet requirements to return to [facility] during this stay. 03/03/21--continue same. Cannot attempt coadmin with stimulant trial for hypersomnia as contraindicated with MAOI. No medical decompensation that would necessitate referral to medical or seeking court order for ECT. At minimum behaviors are challenging but more appropriate when willing to interact with staff. Need to consider longer term care options given slow progression. 03/02/21--interim care reviewed. Continue EMSAM and Lovenox injection. 03/01/21--Day 9 of Emsam patch. Continuing with behavioral plan to encourage behavioral activation-he was provided with plan with goals of having him come out of his room to eat meals, cooperate with repositioning, stand up when his sheets are changed/or if he prefers to stay in bed until the evening then clean sheets can be provided for him to put on the bed or request help putting on the bed in the evening, and continue independently voiding in his bedside urinal, shower can be started for him but he should be encouraged to get into the shower on his own, encourage him to address basic hygiene by continuing to provide him with easy access to his toothbrush, shampoo, etc. 02/28/21--Day 8 of Emsam patch. Now seeing new pattern of daily food intake which is encouraging. Continues to present with regressed behaviors and refusal to interact during the day. 02/27/21--Continue with Emsam patch. Getting out of bed more in the evenings and eating more. Lack of engagement during the day was volitional-pulling blanket over his head after he saw me enter his room. Also becoming more irritable with staff when he is encouraged to do more on his own for behavioral activation. 02/26/21-Continue with Emsam patch. 304 status granted. Ate last night and interacted with staff but no engagement today. 02/25/21--Continues to demonstrate severe depression with neurovegetative s ymptoms with no engagement with staff. Behavioral plan challenged by finding a reward/incentive that he enjoys. Continuing to encourage behavioral activation. Petitioned for 304 status with hearing scheduled for tomorrow given ongoing symptom burden and need for ongoing treatment. Remains on lovenox for DVT prophylaxis. Continue with Emsam patch. 02/24/21--Remains isolative and will not engage verbally. Encouragingly is attending slightly more to some of his ADLs, will continue with behavioral plan in hopes to continue encouraging behavioral activation although food does not seem to be a good motivator/reward for him. Will continue to think about other possible motivators for him to help encourage increased activity, po intake and engagement with therapeutic milieu. No signs of HTN or other side effects from MAOI at this point. 02/23/21--Continues to demonstrate neurovegetative symptoms of depression, remaining in bed most of the day but sometimes more engagement in the evenings. Will implement behavioral plan to encourage behavioral activation to treat neurovegetative symptoms in conjunction with Emsam as well as to encourage increased participation with ADLs. Nursing to provide him with tools to help him eat and promote good hygiene (brining in meals, supplies to wash up) and then if he does this independently will bring in ice cream or chips as reward to see if this helps with activation and increased po intake. 02/22/21--neurologic work up with EEG and brain MRI unremarkable, continue Emsam trial. 02/21/21--complex differential--depression with psychotic features in a patient with bipolar disorder most likely, certainly not typcial catatonia. No hx of hyperphagia or hypersexuality known that would suggest Kleine-Hess syndrome. Will proceed with Emsam patch 6 mg trial as only means to administer antidepressant. Will check with an ECT facility to determine if can treat patient if pursue a court order (will await emsam trial first). MRI brain (patient will need various x rays first as can't answer screening questions, no hx of pacemaker on chart). bedside EEG to rule out status epilepticus. 02/19/21--non-formulary request for Emsam patch. Hasn't taken antidepressants for at least 6 weeks. Would reconsider current med doses when this becomes available. without antidepressant he will continue to decompensate medically and is at significant risk of further decompensation. 02/17/21--lytes, Bun/Cr improved; given sleep phase shift desirable to shift antipsychotic to pm meal with IM Zyprexa for refusal. Bedside EEG likely poor quality/low yeild but consider if no improvement. 02/16/21--Reviewed care by Dr. Garces in italics. will d/c IM Ativan in favor of Zyprexa IM for failure to take Latuda. Does take Lorazepam prn PO, adjust dose and frequency and monitor use. Will repeat labs and PO intake so variable and hard to track. 02/09/2021--admitted to [facility]. Ativan 2mg SL TID ordered. Track Is&Os. Vitals BID. 02/10/2021--continue with ativan 2mg TID SL. Showing significant improving in catatonic symptoms since ativan trial last night. If he continues to walk around no need for DVT prophylaxis. Will consider if 302 needs to be converted to 303 based on progress today. 02/11/2021--continue with scheduled ativan. Less engagement today but still eating and drinking. Plan for likely 303 given his inability/reluctance to eng age in treatment. Reviewed outside records. 02/12/2021--continues to refuse ativan today and won't engage with anyone nor leave his bed except to use the bathroom and to eat at night. Given some move ment in the evening and to the bathroom he doesn't require DVT prophylaxis at this time but this remains a concern should he clinically worsen and will continue to monitor his nutritional and medical status closely. 02/13/2021--placed on 303 status due to ongoing decompensation due to catatonia including refusal of medication, not eating, not drinking, not communicating with anyone and lying in bed all day. Once catatonia begins to improve with treatment will aim to start latuda which helped previously. [place] to require medications over objection for ativan to treat catatonia. If catatonia does not respond quickly to ativan then will consider if DVT prophylaxis should be initiated. 02/14/2021--no significant change in behaviors with additional of scheduled ativan 2 mg BID as medication over objection. Given concern for skin breakdown consult was placed for wound nurse. Given concern for possible DVT and after discussion with hospitalist will begin lovenox 40mg subQ daily. David was able to vocalize consent for this as he remains mute and unable/unwilling to engage but explained the risks, benefits, alternatives and rationale for lovenox and that we will be offering this to him. 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 02/15/2021--Have ruled out catatonia given inconsistent response to ativan trial, multiple observed examples of volitional movement immediately following periods of patient lying in bed and mute. Subsequent catatonia scales have been negative and patient feels that his symptoms represent withdrawn features of anxiety and depression. Given bipolar depression with neurovegetative features will start latuda. Encouragingly he is eating more and drinking more and got out of bed twice last night. Risk Factors Assessment Male: Yes : Yes Do You Have Access To A Gun?: No (in supportive living enviornment, pt unable to answer ) Mental Health Diagnoses: Yes Previous Psychiatric Hospitalization: Yes Protective Factors Assessment Employed: No Interval History Identifying Information 40 yo man with history of catatonia, depression, schizoaffective disorder admitted due to concern for decompensation with failure of self-care at [facility]. Admitted on 302, now 305. Chief Complaint "I'm anxious. I decided I don't want ECT". Review of Systems Sleep Information Total Hours of Sleep: 6.5 Sleep Comments: pt given trazodone per rn. pt on q-15 minute checks Meal Information Percent Meal Consumed - Breakfast: 100 Percent Meal Consumed - Lunch: 100 Percent Meal Consumed - Dinner: 95 Nutrition Comment: pt. OOB & had juice and 2 bowls of cereal Subjective Subjective Patient was seen & assessed and interval progress reviewed with treatment team. Eating, drinking, getting out of bed but will not attend groups. He selects when to interact based on his own needs. Asked appropriate questions about his medications. Physical Exam Psychiatric Orientation: alert and oriented x 3 Apperance: + disheveled Eye Contact: + poor eye contact Motor Behavior: no abnormal motor movements Speech: + abnormal rate/rhythm/volume of speech Affect: + depressed affect Mood: + anxious mood Thought Process: + concrete thought process Thought Content: reality based without delusions Suicidal Thoughts: denies suicidal thoughts Homicidal Thoughts: denies homicidal thoughts Hallucinations: no auditory hallucinations and no visual hallucinations Cognition: attention grossly intact and language grossly intact Estimated Intelligence: consistent with education level Insight: + limited insight Judgement: + limited judgement Vital Signs (Past 24 Hours) Last Vital Signs Temp 36.6 C 04/28/21 01:11 Pulse 73 04/29/21 06:47 Resp 16 04/29/21 06:47 BP 95/65 L 04/29/21 06:47 Pulse Ox 94 04/03/21 20:37 Results & Data ([facility]) Current Inpatient Medications Current Inpatient Medications: Current Inpatient Medications Acetaminophen (Acetaminophen 325 Mg Tab) 650 mg PO Q4H PRN PRN Reason: Headache or Minor Fever Stop: 05/11/21 10:27 Last Admin: 03/16/21 10:34 Dose: 325 mg Documented by: Al Hydrox/Mg Hydrox/Simethicone (Aluminum/Magnesium Susp 30 Ml Udc) 30 ml PO Q4H PRN PRN Reason: GI Upset Stop: 05/11/21 10:27 Benztropine Mesylate (Benztropine Mesylate 1 Mg Tab) 1 mg PO Q6 PRN PRN Reason: Muscle Spasm Stop: 05/03/21 08:40 Bismuth Subsalicylate (Bismuth Subsalicylate Liqd 236 Ml) 15 ml PO PRN PRN PRN Reason: Loose Stool Stop: 05/11/21 10:27 Diphenhydramine HCl (Diphenhydramine 50 Mg/Ml Vial) 50 mg IM BID PRN PRN Reason: Agitation Stop: 04/30/21 13:45 Folic Acid (Folic Acid 1 Mg Tab) 1 mg PO [facility] Stop: 05/10/21 21:59 Last Admin: 04/28/21 21:20 Dose: 1 mg Documented by: Haloperidol (Haloperidol 5 Mg Tab) [facility] Stop: 05/29/21 08:59 Last Admin: 04/29/21 09:31 Dose: 10 mg Documented by: Haloperidol (Haloperidol 5 Mg Tab) 5 mg PO [facility] Stop: 05/28/21 21:59 Last Admin: 04/28/21 21:20 Dose: 5 mg Documented by: Haloperidol Lactate (Haloperidol Lactate 5 Mg/Ml 1 Ml Vial) 5 mg IM BID PRN PRN Reason: Agitation Stop: 04/30/21 13:45 Lamotrigine (Lamotrigine 25 Mg Tab) [address] [facility] Stop: 05/29/21 08:59 Last Admin: 04/29/21 09:31 Dose: 25 mg Documented by: Lorazepam (Lorazepam 1 Mg Tab) 1 mg PO Q6 PRN PRN Reason: Anxiety/Agitation Stop: 05/11/21 08:14 Last Admin: 04/04/21 20:52 Dose: 1 mg Documented by: Lorazepam (Lorazepam 2 Mg/Ml Vial (Im Use)) 2 mg IM BID PRN PRN Reason: Agitation Stop: 04/30/21 13:45 Magnesium Hydroxide (Magnesium Hydroxide Susp 30 Ml Udc) 30 ml PO DAILY PRN PRN Reason: Constipation Stop: 05/11/21 10:27 Olanzapine (Olanzapine 5 Mg Tablet) 5 mg PO [facility] Stop: 05/28/21 21:59 Last Admin: 04/28/21 21:19 Dose: 5 mg Documented by: Potassium Chloride (Potassium Chloride Pwd 20 Meq Pack) 40 meq PO DAILYBD PRN PRN Reason: hypokalemia, to be given once Stop: 05/09/21 08:58 Sodium Chloride (Sodium Chloride 0.65% Na Soln 45 Ml ([place])) 1 - 2 sprays NA PRN PRN PRN Reason: Nasal Dryness/Congestion Stop: 05/11/21 10:27 Trazodone HCl (Trazodone Hcl 100 Mg Tab) 100 mg PO [facility] Stop: 05/27/21 21:59 Last Admin: 12/19/21 21:20 Dose: 100 mg Documented by: Mental Health & Subst Abuse Tx Psychiatrist Name of Psychiatrist: Oniel Negron Psychiatrist's Date of Appointment with Psychiatrist: 03/13/21 Time of Appointment with Psychiatrist: 9:20am Psychiatric Appointment Comment: Zoom *is on waiting list for appt. sooner Therapist Name of Therapist: Unknown Kindergarten Tutor Name of Kindergarten Tutor: Mauri AVILAU) Post Discharge Appointments Primary Care Physician Name Of Family Doctor: Unknown
[2021-04-29] MEDS: FOLIC ACID 1 MG TAB PO SCH (22:27)
[2021-04-29] MEDS: traZODone HCL 100 MG TAB PO SCH (22:27)
[2021-04-29] MEDS: OLANZapine 5 MG TABLET PO SCH (22:27)
[2021-04-30] MEDS: haloperidoL 5 MG TAB PO SCH (09:24)
[2021-04-30] MEDS: lamoTRIgine 25 MG TAB PO SCH (09:24)
--- NOTE | 2021-04-30 10:27 | Psychiatric Progress Note ---
Date of Service April 30, 2021 Impression / Recommendations Impression The patient is a 40 year old with a history of schizoaffective disorder who was admitted for failure of self-care and worsening decompensation at snf. His functioning is poor with inconsistent activity and PO intake despite trials of Ativan, Emsam patch, IM Zyprexa, and now Haldol on 305 commitment. For first 2 months of his stay he was not taking PO meds consistently and was largely mute though this has improved dramatically following court order for ECT. He remains resistant to groups but is motivated to discuss housing options and take PO medication. He is now expressing preferences with regards to his care. MNPR as behavior continues to wax/wane. 04/30/21: reports less anxiety today and perceived improvement in sleep. (1) Schizoaffective disorder: 04/30/21: d/c hs Haldol, titrate Zyprexa 10 mg po qhs. 04/29/21: refusing ECT at this time, withdrew referral to [facility] and Dr. Mccarthy and hospital commonwealth attorney notified, staff updated [facility] and is now officially on the waitlist, sw to schedule meeting with CM. Refusing COPPOLA of Haldol but accepting PO. 04/28/21: Re-reviewed risks/benefits of ECT and patient states "I'd still consider it". He is requesting to resume his regular medication regimen as prefers Zyprexa even after discussion of metabolic profile given assisted side effects of Haldol. Discussed that at least for near future I'd like him to take both with the hopes he will still agree to a COPPOLA. Risks/benefits/alternatives reviewed re: Lamictal for mood stabilization. Discussion included but was not limited to slow titration to decrease risks of Huey's Yamil syndrome. Patient agrees to hold med/notify current prescriber of rash immediately. Consider Wellbutrin restart soon, has dopaminergic properties so don't want to exacerbate psychosis. 04/27/21: Patient voices he does not want ECT at this time but would like more time to think about it/discuss. Increase trazodone. Therapeutic time outside when security able/appropriate. He declines COPPOLA Haldol at this time. 04/26/21: continue haldol 10mg BID and trazodone 50mg qhs for insomnia. Awaiting ECT bed availability. 04/25/21: adding trazodone 50mg qhs for insomnia. 04/24/21: increase haldol back to 10mg BID as he continued to refuse lower dose. If he remains sedentary after tomorrow will re-start lovenox. 04/23/21: reduce to haldol 5mg qhs po after discussion with David with goal of improving adherence and folic acid, will d/c lovenox. Now on 305 commitment. 04/22/21: continue haldol and folate and lovenox. Completed 305 commitment paperwork. 04/21/21: continue haldol 10mg BID po and lovenox and folic acid. Day 1 of increased movement. 04/20/21: continue current medication of haldol 10 mg BID po, not doing IM for refusal. Awaiting response from ECT referral. If he can consistently show that he is moving and walking for three days in a row then we can stop the lovenox. 04/19/21: court testimony for 30 min in front of [facility] Judge Ruest answering questions about the patients condition, prognosis, treatment course, rationale for ECT and court order, risks/benefits of ECT. She will deliberated and the hospital commonwealth attorney forwarded the signed court order for ECT. Dr. Schmitt, Migdalia, and Mili updated. 04/16/21: Haldol 10 mg bid with IM for refusal of PO. Medicine consult appreciated. [facility] 04/13/21: attempt am dose of 5 mg Haldol, continue 10 hs with Ativan. Needs med clearance for ECT. Will hold Lovenox today as some improvement in activity. 04/12/21: continue with haldol and ativan. He was provided with legal paperwork regarding filing for ECT. 04/11/21: continue with haldol and ativan po or IM. Adding mouth checks if he accepts po haldol. Consulted hospitalist for pre-ECT physical exam. He refuses attempts to clip his fingernails. 04/10/21: Add folate supplement. Potassium level improving. Sent out labs for copper and ceruloplasmin. Engaged verbally with multiple staff and briefly watched movie with peers today. Started process for court-ordered ECT. 04/09/21: continue haldol and ativan po or IM. Working on process for consideration for court-ordered ECT. 04/08/21: continue haldol 10mg po or IM and ativan po or IM. Took potassium supplementation in juice yesterday will recheck labs in a few days. Agree with plan to pursue court order for ECT given non-responsiveness to other medication trials so far and his refusal to consistently take any po medication options. 04/07/21: limited PO, remains hypokalemic but overall labs stable 04/06/21: repeat labs in am, consider medicine consult (currently no acute indication for transfer), previous experience was he was less active when prescribed Zyprexa so monitor risks/benefits of Haldol. 04/05/21: attempt to replete K again, Discontinue Emsam patch, pursue court order for ECT when offices reopen after hol. Continue IM Haldol with Ativan trial for now. 04/04/21: Haldol increased to 10 mg PO or IM yesterday with no change overnight, will shift to pm. Will d/c Emsam patch after tomorrow's dose as no sustained benefit and will need to pursue court order for ECT after holiday weekend. 03/31/21: increase haldol to 5 mg po or IM and ativan 1mg po or IM. Continue Emsam patch. 03/30/21: continue haldol 2.5 mg po or IM and ativan 1mg po or IM. Continue Emsam patch. Walked three laps around the unit with encouragement today. 03/29/21: Starting haldol 2.5 mg po or IM and ativan 1mg po or IM for suspected psychosis with negativism, lack of personal care, thought blocking/negative sx and avolition. Continue Emsam patch. Discontinued modafinil. 03/28/21: continue to offer medications. Gave ativan 1mg IM x1 last night after additional episode of spitting. Repeat labwork today showing improvement in nutritional status (albumin and total protein now normal and BUN/CR wnl). 03/27/21: continue to offer medications, he continues to refuse. Continuing to explore ways to involve his extended family or other aspects of care which could incentive his engagement in care. May need to consider if a less sedating antipsychotic medication should be re-trialed. Referral for [facility] has been accepted. 03/26/21: continue current medications, refused modafinil but will try again over next few days. Continue with ativan 1mg BIDM po 03/25/21: start modafinil 50 mg qAM, will monitor carefully for any interactions with MAOI. Discontinued ativan IM for refusal of po. Reducing ativan dosing from TID po to BID po in the afternoon to avoid combining morning stimulant with morning benzo as this would be counterproductive to stimulant trial. 03/24/21: continue current medications. 03/23/21: labwork done today and reviewed no significant changes from prior labwork, still has elevated Cl. Continue with lovenox, emsam patch, and ativan 1 mg po TID (with BID IM for refusal) 03/22/21: labs in am and resume Lovenox given regression past 3 days. 03/18/21: unable to care for self outside of hospital, continue Emsam patch, will not increase as I do not believe he can follow appropriate dietary restrictions at higher doses. 03/17/21: Ativan 1 mg PO TID (inject up to BID for refusal). 03/16/21: resume IM Ativan for refusal of PO Ativan. 03/15/21: Continue current medications. Making referral to [facility] given slow progression and he is still very far from his baseline which will require extended treatment and thus he will be best served by a longer term treatment approach. 03/14/21: Continue with current medications. Reviewed labwork, K+ improved but still signs of poor nutrition. Elevated ALT could be side effect from Emsam patch (occurs in <1/100 - 05/999 pts), will continue to monitor. may be able to consider transition to a po medication if he remains consistent with accepting po medications but for now Emsam patch benefit is felt to outweigh risk of slight ALT elevation. 03/13/21: Continue with current medications. Supports from [facility] will visit tomorrow. Labwork CMP tomorrow morning to ensure correction of hypokalemia. 03/12/21: Continue with current medications. Discussed with treatment team having his snf supports come for a visit and they will visit on . Reviewed his interactions with staff during evening hours/overnight in the chart and continues to show progress with engagement. 03/11/21: Continue with ativan 1 mg BID po, canceled IM as he is agreeing to voluntary po. Given steady improvement over the last 1 week consistent with expected timeline for symptom improvement from Emsam patch he may no longer need longer term care option if improvement persists at this rate. If progress stalls or regression occurs then will reconsider if longer term option for treatment is required. 03/10/21: Reduce ativan to 1 mg BID due to dizziness, low BP and possible fall yesterday. Will discontinue lovenox per his request and since he is now consistently moving around throughout the day and at night, discussed risk of blood clots if he doesn't continue to move around and ambulate frequently which he vocalized understanding of and agreement with. Given improvement in nutritional intake will hold off on rechecking labwork for now, will get repeat labs in 1 week on 03/14. 03/09/21: Reviewed interim progress. Continue Emsam patch and ativan 2mg BID trial-will monitor for excessive sedation. 03/08/21: Ativan 2 mg BID trial. 03/07/21: patient seen by neurology, appreciate input, seems severe vegetative symptoms due to depression though last few doses of Ativan have been more effective than previous. Continue Ativan 1 mg po BID (IM for refusal). Attempt to replete K with powder dissolved in juice. 03/04/21: will explore personal half-way as concerns he will not improve to point he can make meals/meet requirements to return to [facility] during this stay. 03/03/21--continue same. Cannot attempt coadmin with stimulant trial for hypersomnia as contraindicated with MAOI. No medical decompensation that would necessitate referral to medical or seeking court order for ECT. At minimum behaviors are challenging but more appropriate when willing to interact with staff. Need to consider longer term care options given slow progression. 03/02/21--interim care reviewed. Continue EMSAM and Lovenox injection. 03/01/21--Day 9 of Emsam patch. Continuing with behavioral plan to encourage behavioral activation-he was provided with plan with goals of having him come out of his room to eat meals, cooperate with repositioning, stand up when his sheets are changed/or if he prefers to stay in bed until the evening then clean sheets can be provided for him to put on the bed or request help putting on the bed in the evening, and continue independently voiding in his bedside urinal, shower can be started for him but he should be encouraged to get into the shower on his own, encourage him to address basic hygiene by continuing to provide him with easy access to his toothbrush, shampoo, etc. 02/28/21--Day 8 of Emsam patch. Now seeing new pattern of daily food intake which is encouraging. Continues to present with regressed behaviors and refusal to interact during the day. 02/27/21--Continue with Emsam patch. Getting out of bed more in the evenings and eating more. Lack of engagement during the day was volitional-pulling blanket over his head after he saw me enter his room. Also becoming more irritable with staff when he is encouraged to do more on his own for behavioral activation. 02/26/21-Continue with Emsam patch. 304 status granted. Ate last night and interacted with staff but no engagement today. 02/25/21--Continues to demonstrate severe depression with neurovegetative symptoms with no engagement with staff. Behavioral plan challenged by finding a reward/incentive that he enjoys. Continuing to encourage behavioral activation. Petitioned for 304 status with hearing scheduled for tomorrow given ongoing symptom burden and need for ongoing treatment. Remains on lovenox for DVT prophylaxis. Continue with Emsam patch. 02/24/21--Remains isolative and will not engage verbally. Encouragingly is attending slightly more to some of his ADLs, will continue with behavioral plan in hopes to continue encouraging behavioral activation although food does not seem to be a good motivator/reward for him. Will continue to think about other possible motivators for him to help encourage increased activity, po intake and engagement with therapeutic milieu. No signs of HTN or other side effects from MAOI at this point. 02/23/21--Continues to demonstrate neurovegetative symptoms of depression, remaining in bed most of the day but sometimes more engagement in the evenings. Will implement behavioral plan to encourage behavioral activation to treat neurovegetative symptoms in conjunction with Emsam as well as to encourage increased participation with ADLs. Nursing to provide him with tools to help him eat and promote good hygiene (brining in meals, supplies to wash up) and then if he does this independently will bring in ice cream or chips as reward to see if this helps with activation and increased po intake. 02/22/21--neurologic work up with EEG and brain MRI unremarkable, continue Emsam trial. 02/21/21--complex differential--depression with psychotic features in a patient with bipolar disorder most likely, certainly not typcial catatonia. No hx of hyperphagia or hypersexuality known that would suggest Kleine-Hess syndrome. Will proceed with Emsam patch 6 mg trial as only means to administer antidepressant. Will check with an ECT facility to determine if can treat patient if pursue a court order (will await emsam trial first). MRI brain (patient will need various x rays first as can't answer screening questions, no hx of pacemaker on chart). bedside EEG to rule out status epilepticus. 02/19/21--non-formulary request for Emsam patch. Hasn't taken antidepressants for at least 6 weeks. Would reconsider current med doses when this becomes available. without antidepressant he will continue to decompensate medically and is at significant risk of further decompensation. 02/17/21--lytes, Bun/Cr improved; given sleep phase shift desirable to shift antipsychotic to pm meal with IM Zyprexa for refusal. Bedside EEG likely poor quality/low yeild but consider if no improvement. 02/16/21--Reviewed care by Dr. Garces in italics. will d/c IM Ativan in favor of Zyprexa IM for failure to take Latuda. Does take Lorazepam prn PO, adjust dose and frequency and monitor use. Will repeat labs and PO intake so variable and hard to track. 02/09/2021--admitted to [facility]. Ativan 2mg SL TID ordered. Track Is&Os. Vitals BID. 02/10/2021--continue with ativan 2mg TID SL. Showing significant improving in catatonic symptoms since ativan trial last night. If he continues to walk around no need for DVT prophylaxis. Will consider if 302 needs to be converted to 303 based on progress today. 02/11/2021--continue with scheduled ativan. Less engagement today but still eating and drinking. Plan for likely 303 given his inability/reluctance to engage in treatment. Reviewed outside records. 02/12/2021--continues to refuse ativan today and won't engage with anyone nor leave his bed except to use the bathroom and to eat at night. Given some movement in the evening and to the bathroom he doesn't require DVT prophylaxis at this time but this remains a concern should he clinically worsen and will continue to monitor his nutritional and medical status closely. 02/13/2021--placed on 303 status due to ongoing decompensation due to catatonia including refusal of medication, not eating, not drinking, not communicating with anyone and lying in bed all day. Once catatonia begins to improve with treatment will aim to start latuda which helped previously. [place] to require medications over objection for ativan to treat catatonia. If catatonia does not respond quickly to ativan then will consider if DVT prophylaxis should be initiated. 02/14/2021--no significant change in behaviors with additional of scheduled ativan 2 mg BID as medication over objection. Given concern for skin breakdown consult was placed for wound nurse. Given concern for possible DVT and after discussion with hospitalist will begin lovenox 40mg subQ daily. David was able to vocalize consent for this as he remains mute and unable/unwilling to engage but explained the risks, benefits, alternatives and rationale for lovenox and that we will be offering this to him. 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 02/15/2021--Have ruled out catatonia given inconsistent response to ativan trial, multiple observed examples of volitional movement immediately following periods of patient lying in bed and mute. Subsequent catatonia scales have been negative and patient feels that his symptoms represent withdrawn features of anxiety and depression. Given bipolar depression with neurovegetative features will start latuda. Encouragingly he is eating more and drinking more and got out of bed twice last night. Risk Factors Assessment Male: Yes : Yes Do You Have Access To A Gun?: No (in supportive living enviornment, pt unable to answer ) Mental Health Diagnoses: Yes Previous Psychiatric Hospitalization: Yes Protective Factors Assessment Employed: No Interval History Identifying Information 40 yo man with history of catatonia, depression, schizoaffective disorder admitted due to concern for decompensation with failure of self-care at [facility]. Admitted on 302, now 305. Chief Complaint "I'm less anxious and sleeping and eating better, that's pretty much all I have to say". Review of Systems Sleep Information Total Hours of Sleep: 7 Sleep Comments: pt given trazodone per rn. pt on q-15 minute checks Meal Information Percent Meal Consumed - Breakfast: 100 Percent Meal Consumed - Lunch: 100 Percent Meal Consumed - Dinner: 95 Nutrition Comment: pt. OOB & had juice and 2 bowls of cereal Subjective Subjective Patient was seen & assessed and interval progress reviewed with nursing and social work. Unchanged, refuses groups but coming out for meals, walks more on evening shift. Physical Exam Psychiatric Orientation: alert and oriented x 3 Apperance: + disheveled Eye Contact: + poor eye contact Motor Behavior: no abnormal motor movements Speech: normal rate/rhythm/volume of speech Affect: + depressed affect Mood: + anxious mood Thought Process: + concrete thought process Thought Content: reality based without delusions Suicidal Thoughts: denies suicidal thoughts Homicidal Thoughts: denies homicidal thoughts Hallucinations: no auditory hallucinations and no visual hallucinations Cognition: attention grossly intact and language grossly intact Estimated Intelligence: consistent with education level Insight: + limited insight Judgement: + limited judgement Vital Signs (Past 24 Hours) Last Vital Signs Temp 36.7 C 04/29/21 20:58 Pulse 83 04/30/21 06:47 Resp 16 04/30/21 06:47 BP 107/70 04/30/21 06:47 Pulse Ox 94 04/03/21 20:37 Results & Data ([facility]) Current Inpatient Medications Current Inpatient Medications: Current Inpatient Medications Acetaminophen (Acetaminophen 325 Mg Tab) 650 mg PO Q4H PRN PRN Reason: Headache or Minor Fever Stop: 05/11/21 10:27 Last Admin: 03/16/21 10:34 Dose: 325 mg Documented by: Al Hydrox/Mg Hydrox/Simethicone (Aluminum/Magnesium Susp 30 Ml Udc) 30 ml PO Q4H PRN PRN Reason: GI Upset Stop: 05/11/21 10:27 Benztropine Mesylate (Benztropine Mesylate 1 Mg Tab) 1 mg PO Q6 PRN PRN Reason: Muscle Spasm Stop: 05/03/21 08:40 Bismuth Subsalicylate (Bismuth Subsalicylate Liqd 236 Ml) 15 ml PO PRN PRN PRN Reason: Loose Stool Stop: 05/11/21 10:27 Diphenhydramine HCl (Diphenhydramine 50 Mg/Ml Vial) 50 mg IM BID PRN PRN Reason: Agitation Stop: 04/30/21 13:45 Folic Acid (Folic Acid 1 Mg Tab) 1 mg PO HS [facility] Stop: 05/10/21 21:59 Last Admin: 04/29/21 22:27 Dose: 1 mg Documented by: Haloperidol (Haloperidol 5 Mg Tab) 10 mg PO QAM [facility] Stop: 05/29/21 08:59 Last Admin: 04/30/21 09:24 Dose: 10 mg Documented by: Haloperidol Lactate (Haloperidol Lactate 5 Mg/Ml 1 Ml Vial) 5 mg IM BID PRN PRN Reason: Agitation Stop: 04/30/21 13:45 Lamotrigine (Lamotrigine 25 Mg Tab) 25 mg PO QAM [facility] Stop: 05/29/21 08:59 Last Admin: 04/30/21 09:24 Dose: 25 mg Documented by: Lorazepam (Lorazepam 1 Mg Tab) 1 mg PO Q6 PRN PRN Reason: Anxiety/Agitation Stop: 05/11/21 08:14 Last Admin: 04/04/21 20:52 Dose: 1 mg Documented by: Lorazepam (Lorazepam 2 Mg/Ml Vial (Im Use)) 2 mg IM BID PRN PRN Reason: Agitation Stop: 04/30/21 13:45 Magnesium Hydroxide (Magnesium Hydroxide Susp 30 Ml Udc) 30 ml PO DAILY PRN PRN Reason: Constipation Stop: 05/11/21 10:27 Olanzapine (Olanzapine 10 Mg Tab) 10 mg PO HS [facility] Stop: 05/30/21 21:59 Potassium Chloride (Potassium Chloride Pwd 20 Meq Pack) 40 meq PO DAILYBD PRN PRN Reason: hypokalemia, to be given once Stop: 05/09/21 08:58 Sodium Chloride (Sodium Chloride 0.65% Na Soln 45 Ml ([place])) 1 - 2 sprays NA PRN PRN PRN Reason: Nasal Dryness/Congestion Stop: 05/11/21 10:27 Trazodone HCl (Trazodone Hcl 100 Mg Tab) 100 mg PO HS [facility] Stop: 05/27/21 21:59 Last Admin: 04/29/21 22:27 Dose: 100 mg Documented by: Mental Health & Subst Abuse Tx Psychiatrist Name of Psychiatrist: Oniel Negron Psychiatrist's Date of Appointment with Psychiatrist: 03/13/21 Time of Appointment with Psychiatrist: 9:20am Psychiatric Appointment Comment: Zoom *is on waiting list for appt. sooner Therapist Name of Therapist: Unknown Cardiovascular Surgical Tech Name of Cardiovascular Surgical Tech: Mauri GunterBSU) Post Discharge Appointments Primary Care Physician Name Of Family Doctor: Unknown
[2021-04-30] MEDS: FOLIC ACID 1 MG TAB PO SCH (21:57)
[2021-04-30] MEDS: traZODone HCL 100 MG TAB PO SCH (21:57)
[2021-04-30] MEDS: OLANZapine 10 MG TAB PO SCH (21:58)
[2021-05-01] MEDS: lamoTRIgine 25 MG TAB PO SCH (09:42)
[2021-05-01] MEDS: haloperidoL 5 MG TAB PO SCH (09:42)
--- NOTE | 2021-05-01 12:49 | Psychiatric Progress Note ---
Date of Service May 01, 2021 Impression / Recommendations Impression The patient is a 40 year old with a history of schizoaffective disorder who was admitted for failure of self-care and [facility] decompensation at [facility]. His functioning is poor with inconsistent activity and PO intake despite trials of Ativan, Emsam patch, IM Zyprexa, and now Haldol on 305 commitment. For first 2 months of his stay he was not taking PO meds consistently and was largely mute though this has improved dramatically following court order for ECT. He remains resistant to groups but is motivated to discuss housing options and take PO medication. He is now expressing preferences with regards to his care. MNPR as behavior continues to wax/wane, poor hygiene, may d/c soon. 05/01/21: unchanged (1) Schizoaffective disorder: 05/01/21: restart Wellbutrin 100 mg SR Qam with plan to titrate. stated he will be in contempt of court if doesn't complete a 4 hr parenting course as a requirement of their divorce proceeding. Letter provided with dates of hospitalization. 04/30/21: d/c hs Haldol, titrate Zyprexa 10 mg po qhs. 04/29/21: refusing ECT at this time, withdrew referral to [facility] and Dr. Mccarthy and hospital tax attorney notified, staff updated [facility] and is now officially on the waitlist, sw to schedule meeting with CM. Refusing COPPOLA of Haldol but accepting PO. 04/28/21: Re-reviewed risks/benefits of ECT and patient states "I'd still consider it". He is requesting to resume his regular medication regimen as prefers Zyprexa even after discussion of metabolic profile given pbx mechanic side effects of Haldol. Discussed that at least for near future I'd like him to take both with the hopes he will still agree to a COPPOLA. Risks/benefits/alternatives reviewed re: Lamictal for mood stabilization. Discussion included but was not limited to slow titration to decrease risks of Huey's Yamil syndrome. Patient agrees to hold med/notify current prescriber of rash immediately. Consider Wellbutrin restart soon, has dopaminergic properties so don't want to exacerbate psychosis. 04/27/21: Patient voices he does not want ECT at this time but would like more time to think about it/discuss. Increase trazodone. Therapeutic time outside when security able/appropriate. He declines COPPOLA Haldol at this time. 04/26/21: continue haldol 10mg BID and trazodone 50mg qhs for insomnia. Awaiting ECT bed availability. 04/25/21: adding trazodone 50mg qhs for insomnia. 04/24/21: increase haldol back to 10mg BID as he continued to refuse lower dose. If he remains sedentary after tomorrow will re-start lovenox. 04/23/21: reduce to haldol 5mg qhs po after discussion with David with goal of improving adherence and folic acid, will d/c lovenox. Now on 305 commitment. 04/22/21: continue haldol and folate and lovenox. Completed 305 commitment paperwork. 04/21/21: continue haldol 10mg BID po and lovenox and folic acid. Day 1 of increased movement. 04/20/21: continue current medication of haldol 10 mg BID po, not doing IM for refusal. Awaiting response from ECT referral. If he can consistently show that he is moving and walking for three days in a row then we can stop the lovenox. 04/19/21: court testimony for 30 min in front of [facility] Judge Ruest answering questions about the patients condition, prognosis, treatment course, rationale for ECT and court order, risks/benefits of ECT. She will deliberated and the hospital tax attorney forwarded the signed court order for ECT. Dr. Schmitt, Migdalia, and Mili updated. 04/16/21: Haldol 10 mg bid with IM for refusal of PO. Medicine consult a ppreciated. Referral packet sent to [facility]. 04/13/21: attempt am dose of 5 mg Haldol, continue 10 hs with Ativan. Needs med clearance for ECT. Will hold Lovenox today as some improvement in activity. 04/12/21: continue with haldol and ativan. He was provided with legal paperwork regarding filing for ECT. 04/11/21: continue with haldol and ativan po or IM. Adding mouth checks if he accepts po haldol. Consulted hospitalist for pre-ECT physical exam. He refuses attempts to clip his fingernails. 04/10/21: Add folate supplement. Potassium level improving. Sent out labs for copper and ceruloplasmin. Engaged verbally with multiple staff and briefly watched movie with peers today. Started process for court-ordered ECT. 04/09/21: continue haldol and ativan po or IM. Working on process for consideration for court-ordered ECT. 04/08/21: continue haldol 10mg po or IM and ativan po or IM. Took potassium supplementation in juice yesterday will recheck labs in a few days. Agree with bruce still to pursue court order for ECT given non-responsiveness to other medication trials so far and his refusal to consistently take any po medication options. 04/07/21: limited PO, remains hypokalemic but overall labs stable 04/06/21: repeat labs in am, consider medicine consult (currently no acute indication for transfer), previous experience was he was less active when prescribed Zyprexa so monitor risks/benefits of Haldol. 04/05/21: attempt to replete K again, Discontinue Emsam patch, pursue court order for ECT when offices reopen after . Continue IM Haldol with Ativan trial for now. 04/04/21: Haldol increased to 10 mg PO or IM yesterday with no change overnight, will shift to pm. Will d/c Emsam patch after tomorrow's dose as no sustained benefit and will need to pursue court order for ECT after holiday weekend. 03/31/21: increase haldol to 5 mg po or IM and ativan 1mg po or IM. Continue Emsam patch. 03/30/21: continue haldol 2.5 mg po or IM and ativan 1mg po or IM. Continue Emsam patch. Walked three laps around the unit with encouragement today. 03/29/21: Starting haldol 2.5 mg po or IM and ativan 1mg po or IM for suspected psychosis with negativism, lack of personal care, thought blocking/negative sx and avolition. Continue Emsam patch. Discontinued modafinil. 03/28/21: continue to offer medications. Gave ativan 1mg IM x1 last night after additional episode of spitting. Repeat labwork today showing improvement in nutritional status (albumin and total protein now normal and BUN/CR wnl). 03/27/21: continue to offer medications, he continues to refuse. Continuing to explore ways to involve his extended family or other aspects of care which could incentive his engagement in care. May need to consider if a less sedating antipsychotic medication should be re-trialed. Referral for [facility] has been accepted. 03/26/21: continue current medications, refused modafinil but will try again over next few days. Continue with ativan 1mg BIDM po 03/25/21: start modafinil 50 mg qAM, will monitor carefully for any interactions with MAOI. Discontinued ativan IM for refusal of po. Reducing ativan dosing from TID po to BID po in the afternoon to avoid combining morning stimulant with morning benzo as this would be counterproductive to stimulant trial. 03/24/21: continue current medications. 03/23/21: labwork done today and reviewed no significant changes from prior labwork, still has elevated Cl. Continue with lovenox, emsam patch, and ativan 1 mg po TID (with BID IM for refusal) 03/22/21: labs in am and resume Lovenox given regression past 3 days. 03/18/21: unable to care for self outside of hospital, continue Emsam patch, will not increase as I do not believe he can follow appropriate dietary restrictions at higher doses. 03/17/21: Ativan 1 mg PO TID (inject up to BID for refusal). 03/16/21: resume IM Ativan for refusal of PO Ativan. 03/15/21: Continue current medications. Making referral to [facility] given slow progression and he is still very far from his baseline which will require extended treatment and thus he will be best served by a longer term treatment approach. 03/14/21: Continue with current medications. Reviewed labwork, K+ improved but still signs of poor nutrition. Elevated ALT could be side effect from Emsam patch (occurs in <1/100 - 05/999 pts), will continue to monitor. may be able to consider transition to a po medication if he remains consistent with accepting po medications but for now Emsam patch benefit is felt to outweigh risk of slight ALT elevation. 03/13/21: Continue with current medications. Supports from [employer] will visit tomorrow. Labwork CMP tomorrow morning to ensure correction of hypokalemia. 03/12/21: Continue with current medications. Discussed with treatment team having his [facility] supports come for a visit and they will visit on . Reviewed his interactions with staff during evening hours/overnight in the chart and continues to show progress with engagement. 03/11/21: Continue with ativan 1 mg BID po, canceled IM as he is agreeing to voluntary po. Given steady improvement over the last 1 week consistent with expected timeline for symptom improvement from Emsam patch he may no longer need longer term care option if improvement persists at this rate. If progress stalls or regression occurs then will reconsider if longer term option for treatment is required. 03/10/21: Reduce ativan to 1 mg BID due to dizziness, low BP and possible fall yesterday. Will discontinue lovenox per his request and since he is now co nsistently moving around throughout the day and at night, discussed risk of blood clots if he doesn't continue to move around and ambulate frequently which he vocalized understanding of and agreement with. Given improvement in nutritional intake will hold off on rechecking labwork for now, will get repeat labs in 1 week on 03/14. 03/09/21: Reviewed interim progress. Continue Emsam patch and ativan 2mg BID trial-will monitor for excessive sedation. 03/08/21: Ativan 2 mg BID trial. 03/07/21: patient seen by neurology, appreciate input, seems severe vegetative symptoms due to depression though last few doses of Ativan have been more effective than previous. Continue Ativan 1 mg po BID (IM for refusal). Attempt to replete K with powder dissolved in juice. 03/04/21: will explore personal assisted as concerns he will not improve to point he can make meals/meet requirements to return to [facility] during this stay. 03/03/21--continue same. Cannot attempt coadmin with stimulant trial for hyp ersomnia as contraindicated with MAOI. No medical decompensation that would necessitate referral to medical or seeking court order for ECT. At minimum behaviors are challenging but more appropriate when willing to interact with staff. Need to consider longer term care options given slow progression. 03/02/21--interim care reviewed. Continue EMSAM and Lovenox injection. 03/01/21--Day 9 of Emsam patch. Continuing with behavioral plan to encourage behavioral activation-he was provided with plan with goals of having him come out of his room to eat meals, cooperate with repositioning, stand up when his sheets are changed/or if he prefers to stay in bed until the evening then clean sheets can be provided for him to put on the bed or request help putting on the bed in the evening, and continue independently voiding in his bedside urinal, shower can be started for him but he should be encouraged to get into the shower on his own, encourage him to address basic hygiene by continuing to provide him with easy access to his toothbrush, shampoo, etc. 02/28/21--Day 8 of Emsam patch. Now seeing new pattern of daily food intake which is encouraging. Continues to present with regressed behaviors and refusal to interact during the day. 02/27/21--Continue with Emsam patch. Getting out of bed more in the evenings and eating more. Lack of engagement during the day was volitional-pulling blanket over his head after he saw me enter his room. Also becoming more irritable with staff when he is encouraged to do more on his own for behavioral activation. 02/26/21-Continue with Emsam patch. 304 status granted. Ate last night and interacted with staff but no engagement today. 02/25/21--Continues to demonstrate severe depression with neurovegetative symptoms with no engagement with staff. Behavioral plan challenged by finding a reward/incentive that he enjoys. Continuing to encourage behavioral activation. Petitioned for 304 status with hearing scheduled for tomorrow given ongoing sy mptom burden and need for ongoing treatment. Remains on lovenox for DVT prophylaxis. Continue with Emsam patch. 02/24/21--Remains isolative and will not engage verbally. Encouragingly is attending slightly more to some of his ADLs, will continue with behavioral plan in hopes to continue encouraging behavioral activation although food does not seem to be a good motivator/reward for him. Will continue to think about other possible motivators for him to help encourage increased activity, po intake and engagement with therapeutic milieu. No signs of HTN or other side effects from MAOI at this point. 02/23/21--Continues to demonstrate neurovegetative symptoms of depression, remaining in bed most of the day but sometimes more engagement in the evenings. Will implement behavioral plan to encourage behavioral activation to treat neurovegetative symptoms in conjunction with Emsam as well as to encourage increased participation with ADLs. Nursing to provide him with tools to help him eat and promote good hygiene (brining in meals, supplies to wash up) and then if he does this independently will bring in ice cream or chips as reward to see if this helps with activation and increased po intake. 02/22/21--neurologic work up with EEG and brain MRI unremarkable, continue Emsam trial. 02/21/21--complex differential--depression with psychotic features in a patient with bipolar disorder most likely, certainly not typcial catatonia. No hx of hyperphagia or hypersexuality known that would suggest Kleine-Hess syndrome. Will proceed with Emsam patch 6 mg trial as only means to administer antidepressant. Will check with an ECT facility to determine if can treat patient if pursue a court order (will await emsam trial first). MRI brain (patient will need various x rays first as can't answer screening questions, no hx of pacemaker on chart). bedside EEG to rule out status epilepticus. 02/19/21--non-formulary request for Emsam patch. Hasn't taken antidepressants for at least 6 weeks. Would reconsider current med doses when this becomes available. without antidepressant he will continue to decompensate medically and is at significant risk of further decompensation. 02/17/21--lytes, Bun/Cr improved; given sleep phase shift desirable to shift antipsychotic to pm meal with IM Zyprexa for refusal. Bedside EEG likely poor quality/low yeild but consider if no improvement. 02/16/21--Reviewed care by Dr. Garces in italics. will d/c IM Ativan in favor of Zyprexa IM for failure to take Latuda. Does take Lorazepam prn PO, adjust dose and frequency and monitor use. Will repeat labs and PO intake so variable and hard to track. 02/09/2021--admitted to U. Ativan 2mg SL TID ordered. Track Is&Os. Vitals BID. 02/10/2021--continue with ativan 2mg TID SL. Showing significant improving in catatonic symptoms since ativan trial last night. If he continues to walk around no need for DVT prophylaxis. Will consider if 302 needs to be converted to 303 based on progress today. 02/11/2021--continue with scheduled ativan. Less engagement today but still eating and drinking. Plan for likely 303 given his inability/reluctance to engage in treatment. Reviewed outside records. 02/12/2021--continues to refuse ativan today and won't engage with anyone nor leave his bed except to use the bathroom and to eat at night. Given some movement in the evening and to the bathroom he doesn't require DVT prophylaxis at this time but this remains a concern should he clinically worsen and will continue to monitor his nutritional and medical status closely. 02/13/2021--placed on 303 status due to ongoing decompensation due to catatonia including refusal of medication, not eating, not drinking, not communicating with anyone and lying in bed all day. Once catatonia begins to improve with treatment will aim to start latuda which helped previously. [place] to require medications over objection for ativan to treat catatonia. If catatonia does not respond quickly to ativan then will consider if DVT prophylaxis should be initiated. 02/14/2021--no significant change in behaviors with additional of scheduled ativan 2 mg BID as medication over objection. Given concern for skin breakdown consult was placed for wound nurse. Given concern for possible DVT and after discussion with hospitalist will begin lovenox 40mg subQ daily. David was able to vocalize consent for this as he remains mute and unable/unwilling to engage but explained the risks, benefits, alternatives and rationale for lovenox and that we will be offering this to him. 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 02/15/2021--Have ruled out catatonia given inconsistent response to ativan trial, multiple observed examples of volitional movement immediately following periods of patient lying in bed and mute. Subsequent catatonia scales have been negative and patient feels that his symptoms represent withdrawn features of anxiety and depression. Given bipolar depression with neurovegetative features will start latuda. Encouragingly he is eating more and drinking more and got out of bed twice last night. Risk Factors Assessment Male: Yes : Yes Do You Have Access To A Gun?: No (in supportive living enviornment, pt unable to answer ) Mental Health Diagnoses: Yes Previous Psychiatric Hospitalization: Yes Protective Factors Assessment Employed: No Interval History Identifying Information 40 yo man with history of catatonia, depression, schizoaffective disorder admitted due to concern for decompensation with failure of self-care at [facility]. Admitted on 302, now 305. Chief Complaint "Yeah I don't have much to say". Review of Systems Sleep Information Total Hours of Sleep: 6.5 Sleep Comments: pt given trazodone per rn. pt on q-15 minute checks Meal Information Percent Meal Consumed - Breakfast: 100 Percent Meal Consumed - Lunch: 75 Percent Meal Consumed - Dinner: 100 Nutrition Comment: pt. OOB & had juice and 2 bowls of cereal Subjective Subjective Patient was seen & assessed and interval progress reviewed with treatment team. Comes out for meals. Did go to community meeting last pm, little tolerance for female peers. Showered 1 week ago and encouraged to do so if he'd like to behavior contract to go outside once a week. Rated mood last pm as 4/10 and depressed. Agreeable to resume Wellbutrin. Physical Exam Psychiatric Orientation: alert; + uncooperative Apperance: + disheveled Eye Contact: + poor eye contact Motor Behavior: steady gait and station and no abnormal motor movements; n EPS and n akathisia Speech: normal rate/rhythm/volume of speech Affect: + depressed affect Mood: + depressed mood and + anxious mood Thought Process: + concrete thought process Thought Content: reality based without delusions Suicidal Thoughts: denies suicidal thoughts Homicidal Thoughts: denies homicidal thoughts Hallucinations: no auditory hallucinations and no visual hallucinations Cognition: attention grossly intact and language grossly intact Vital Signs (Past 24 Hours) Last Vital Signs Temp 37.2 C 04/30/21 20:00 Pulse 90 05/01/21 06:38 Resp 16 05/01/21 06:38 BP 106/68 05/01/21 06:38 Pulse Ox 94 04/03/21 20:37 Results & Data ([facility]) Current Inpatient Medications Current Inpatient Medications: Current Inpatient Medications Acetaminophen (Acetaminophen 325 Mg Tab) 650 mg PO Q4H PRN PRN Reason: Headache or Minor Fever Stop: 06/11/21 10:27 Last Admin: 03/16/21 10:34 Dose: 325 mg Documented by: Al Hydrox/Mg Hydrox/Simethicone (Aluminum/Magnesium Susp 30 Ml Udc) 30 ml PO Q4H PRN PRN Reason: GI Upset Stop: 06/11/21 10:27 Benztropine Mesylate (Benztropine Mesylate 1 Mg Tab) 1 mg PO Q6 PRN PRN Reason: Muscle Spasm Stop: 06/11/21 08:40 Bismuth Subsalicylate (Bismuth Subsalicylate Liqd 236 Ml) 15 ml PO PRN PRN PRN Reason: Loose Stool Stop: 06/11/21 02:27 Folic Acid (Folic Acid 1 Mg Tab) 1 mg PO [facility] Stop: 06/11/21 21:59 Last Admin: 04/30/21 21:57 Dose: 1 mg Documented by: Haloperidol (Haloperidol 5 Mg Tab) 10 mg PO [facility] Stop: 06/11/21 08:59 Last Admin: 05/01/21 09:42 Dose: 10 mg Documented by: Lamotrigine (Lamotrigine 25 Mg Tab) 25 mg PO [facility] Stop: 05/29/21 08:59 Last Admin: 05/01/21 09:42 Dose: 25 mg Documented by: Lorazepam (Lorazepam 1 Mg Tab) 1 mg PO Q6 PRN PRN Reason: Anxiety/Agitation Stop: 06/11/21 08:14 Last Admin: 04/04/21 20:52 Dose: 1 mg Documented by: Magnesium Hydroxide (Magnesium Hydroxide Susp 30 Ml Udc) 30 ml PO DAILY PRN PRN Reason: Constipation Stop: 06/11/21 10:27 Olanzapine (Olanzapine 10 Mg Tab) 10 mg PO [facility] Stop: 05/30/21 21:59 Last Admin: 04/30/21 21:58 Dose: 10 mg Documented by: Sodium Chloride (Sodium Chloride 0.65% Na Soln 45 Ml ([place])) 1 - 2 sprays NA PRN PRN PRN Reason: Nasal Dryness/Congestion Stop: 06/11/21 10:27 Trazodone HCl (Trazodone Hcl 100 Mg Tab) 100 mg PO [facility] Stop: 05/27/21 21:59 Last Admin: 04/30/21 21:57 Dose: 100 mg Documented by: Mental Health & Subst Abuse Tx Psychiatrist Name of Psychiatrist: Oniel Negron Psychiatrist's Date of Appointment with Psychiatrist: 03/13/21 Time of Appointment with Psychiatrist: 9:20am Psychiatric Appointment Comment: Zoom *is on waiting list for appt. sooner Therapist Name of Therapist: Unknown Assistant Professor Of Drama Name of Assistant Professor Of Drama: Mauri ([employer]) Post Discharge Appointments Primary Care Physician Name Of Family Doctor: Unknown
[2021-05-01] MEDS: OLANZapine 10 MG TAB PO SCH (21:38)
[2021-05-01] MEDS: FOLIC ACID 1 MG TAB PO SCH (21:38)
[2021-05-01] MEDS: traZODone HCL 100 MG TAB PO SCH (21:38)
[2021-05-02] MEDS: lamoTRIgine 25 MG TAB PO SCH (09:39)
[2021-05-02] MEDS: buPROPion SR 100 MG TABCR PO SCH (09:40)
[2021-05-02] MEDS: haloperidoL 5 MG TAB PO SCH (09:40)
--- NOTE | 2021-05-02 14:50 | Psychiatric Progress Note ---
Date of Service May 02, 2021 Impression / Recommendations Impression The patient is a 40 year old with a history of schizoaffective disorder who was admitted for failure of self-care and worsening decompensation at intermediate. His functioning is poor with inconsistent activity and PO intake despite trials of Ativan, Emsam patch, IM Zyprexa, and now Haldol on 305 commitment. For first 2 months of his stay he was not taking PO meds consistently and was largely mute though this has improved dramatically following court order for ECT. He remains resistant to groups but is motivated to discuss housing options and take PO medication. He is now expressing preferences with regards to his care. 05/02/21: attends group and to hygiene with strong motivator Plan: continue current meds and treatment plan. (1) Schizoaffective disorder: Risk Factors Assessment Male: Yes : Yes Do You Have Access To A Gun?: No (in supportive living enviornment, pt unable to answer ) Mental Health Diagnoses: Yes Previous Psychiatric Hospitalization: Yes Protective Factors Assessment Employed: No Interval History Identifying Information 40 yo man with history of catatonia, depression, schizoaffective disorder admitt ed due to concern for decompensation with failure of self-care at [facility]. Admitted on 302, now 305. Chief Complaint "OK". Review of Systems Sleep Information Total Hours of Sleep: 6.26 Meal Information Percent Meal Consumed - Breakfast: 75 Percent Meal Consumed - Lunch: 75 Percent Meal Consumed - Dinner: 100 Nutrition Comment: pt. OOB & had juice and 2 bowls of cereal Subjective Subjective Patient was seen & assessed and interval progress reviewed with nursing and social work. He showered and attended group last pm so that he could have therapeutic time outside but otherwise engages little with peers. He is accepting PO medication and continues to eat well. MNPR discontinued. Physical Exam Psychiatric Orientation: alert and oriented x 3 Apperance: + disheveled Eye Contact: good eye contact Motor Behavior: no abnormal motor movements Speech: normal rate/rhythm/volume of speech Affect: + depressed affect Mood: + depressed mood Thought Process: + concrete thought process Thought Content: reality based without delusions Suicidal Thoughts: denies suicidal thoughts Homicidal Thoughts: denies homicidal thoughts Hallucinations: no auditory hallucinations and no visual hallucinations Estimated Intelligence: consistent with education level Vital Signs (Past 24 Hours) Last Vital Signs Temp 36.9 C 05/02/21 06:26 Pulse 92 H 05/02/21 06:26 Resp 16 05/02/21 06:26 BP 101/67 05/02/21 06:26 Pulse Ox 94 04/03/21 20:37 Results & Data ([facility]) Current Inpatient Medications Current Inpatient Medications: Current Inpatient Medications Acetaminophen (Acetaminophen 325 Mg Tab) 650 mg PO Q4H PRN PRN Reason: Headache or Minor Fever Stop: 06/11/21 10:27 Last Admin: 03/16/21 10:34 Dose: 325 mg Documented by: Al Hydrox/Mg Hydrox/Simethicone (Aluminum/Magnesium Susp 30 Ml Udc) 30 ml PO Q4H PRN PRN Reason: GI Upset Stop: 06/11/21 10:27 Benztropine Mesylate (Benztropine Mesylate 1 Mg Tab) 1 mg PO Q6 PRN PRN Reason: Muscle Spasm Stop: 06/11/21 08:40 Bismuth Subsalicylate (Bismuth Subsalicylate Liqd 236 Ml) 15 ml PO PRN PRN PRN Reason: Loose Stool Stop: 06/11/21 02:27 Bupropion HCl (Bupropion Sr 100 Mg Tabcr) 100 mg PO [facility] Stop: 06/01/21 08:59 Last Admin: 05/02/21 09:40 Dose: 100 mg Documented by: Folic Acid (Folic Acid 1 Mg Tab) 1 mg PO [facility] Stop: 06/11/21 21:59 Last Admin: 05/01/21 21:38 Dose: 1 mg Documented by: Haloperidol (Haloperidol 5 Mg Tab) 10 mg PO [facility] Stop: 06/11/21 08:59 Last Admin: 05/02/21 09:40 Dose: 10 mg Documented by: Lamotrigine (Lamotrigine 25 Mg Tab) 25 [facility] [place] Stop: 05/29/21 08:59 Last Admin: 05/02/21 09:39 Dose: 25 mg Documented by: Lorazepam (Lorazepam 1 Mg Tab) 1 mg PO Q6 PRN PRN Reason: Anxiety/Agitation Stop: 06/11/21 08:14 Last Admin: 04/04/21 20:52 Dose: 1 mg Documented by: Magnesium Hydroxide (Magnesium Hydroxide Susp 30 Ml Udc) 30 ml PO DAILY PRN PRN Reason: Constipation Stop: 06/11/21 10:27 Olanzapine (Olanzapine 10 Mg Tab) 10 mg PO HS OG Stop: 05/30/21 21:59 Last Admin: 05/01/21 21:38 Dose: 10 mg Documented by: Sodium Chloride (Sodium Chloride 0.65% Na Soln 45 Ml ([place])) 1 - 2 sprays NA PRN PRN PRN Reason: Nasal Dryness/Congestion Stop: 06/11/21 10:27 Trazodone HCl (Trazodone Hcl 100 Mg Tab) 100 mg PO [facility] Stop: 05/27/21 21:59 Last Admin: 05/01/21 21:38 Dose: 100 mg Documented by: Mental Health & Subst Abuse Tx Psychiatrist Name of Psychiatrist: Oniel Negron Psychiatrist's Date of Appointment with Psychiatrist: 03/13/21 Time of Appointment with Psychiatrist: 9:20am Psychiatric Appointment Comment: Zoom *is on waiting list for appt. sooner Therapist Name of Therapist: Unknown [employer] Machinist Name of [employer] Machinist: Mauri ([facility]) Post Discharge Appointments Primary Care Physician Name Of Family Doctor: Unknown
[2021-05-02] MEDS: OLANZapine 10 MG TAB PO SCH (20:51)
[2021-05-02] MEDS: traZODone HCL 100 MG TAB PO SCH (20:51)
[2021-05-02] MEDS: FOLIC ACID 1 MG TAB PO SCH (20:51)
[2021-05-03] MEDS: buPROPion SR 100 MG TABCR PO SCH (09:54)
[2021-05-03] MEDS: haloperidoL 5 MG TAB PO SCH (09:54)
[2021-05-03] MEDS: lamoTRIgine 25 MG TAB PO SCH (09:54)
--- NOTE | 2021-05-03 15:52 | Psychiatric Progress Note ---
Date of Service May 03, 2021 Impression / Recommendations Impression The patient is a 40 year old with a history of schizoaffective disorder who was admitted for failure of self-care and worsening decompensation at [facility]. His functioning is poor with inconsistent activity and PO intake despite trials of Ativan, Emsam patch, IM Zyprexa, and now Haldol on 305 commitment. For first 2 months of his stay he was not taking PO meds consistently and was largely mute though this has improved dramatically following court order for ECT. He remains resistant to groups but is motivated to discuss housing options and take PO medication. He is now expressing preferences with regards to his care. 05/03/21: intermittent progress, eating and showering more consistently but still will not engage at times and reverts back to lying in bed for much of the day. Plan: reviewed interim progress per Dr. Arevalo's notes. Continue current meds and treatment plan. (1) Schizoaffective disorder: 05/03/21: continue current medications-trazodone 100mg qhs, haldol 10 mg qam, lamictal 25 mg qd, olanzapine 10 mg qhs, wellbutrin SR 100mg qd. Goal will be to move to antipsychotic monotherapy. Will discuss plan to taper haldol with David when he is able to re-engage and state his preferences. 05/01/21: restart Wellbutrin 100 mg SR Qam with plan to titrate. stated he will be in contempt of court if doesn't complete a 4 hr parenting course as a requirement of their divorce proceeding. Letter provided with dates of hospitalization. 04/30/21: d/c hs Haldol, titrate Zyprexa 10 mg po qhs. 04/29/21: refusing ECT at this time, withdrew referral to [facility] and Dr. Mccarthy and hospital regulatory attorney notified, staff updated [facility] and is now officially on the waitlist, sw to schedule meeting with CM. Refusing COPPOLA of Haldol but accepting PO. 04/28/21: Re-reviewed risks/benefits of ECT and patient states "I'd still consider it". He is requesting to resume his regular medication regimen as prefers Zyprexa even after discussion of metabolic profile given fdc side effects of Haldol. Discussed that at least for near future I'd like him to take both with the hopes he will still agree to a COPPOLA. Risks/benefits/alternatives reviewed re: Lamictal for mood stabilization. Discussion included but was not limited to slow titration to decrease risks of Huey's Yamil syndrome. Patient agrees to hold med/notify current prescriber of rash immediately. Consider Wellbutrin restart soon, has dopaminergic properties so don't want to exacerbate psychosis. 04/27/21: Patient voices he does not want ECT at this time but would like more time to think about it/discuss. Increase trazodone. Therapeutic time outside when security able/appropriate. He declines COPPOLA Haldol at this time. 04/26/21: continue haldol 10mg BID and trazodone 50mg qhs for insomnia. Awaiting ECT bed availability. 04/25/21: adding trazodone 50mg qhs for insomnia. 04/24/21: increase haldol back to 10mg BID as he continued to refuse lower dose. If he remains sedentary after tomorrow will re-start lovenox. 04/23/21: reduce to haldol 5mg qhs po after discussion with David with goal of improving adherence and folic acid, will d/c lovenox. Now on 305 commitment. 04/22/21: continue haldol and folate and lovenox. Completed 305 commitment paperwork. 04/21/21: continue haldol 10mg BID po and lovenox and folic acid. Day 1 of increased movement. 04/20/21: continue current medication of haldol 10 mg BID po, not doing IM for refusal. Awaiting response from ECT referral. If he can consistently show that he is moving and walking for three days in a row then we can stop the lovenox. 04/19/21: court testimony for 30 min in front of [facility] Judge Ruest answering questions about the patients condition, prognosis, treatment course, rationale for ECT and court order, risks/benefits of ECT. She will deliberated and the hospital regulatory attorney forwarded the signed court order for ECT. Dr. Schmitt, Migdalia, and Mili updated. 04/16/21: Haldol 10 mg bid with IM for refusal of PO. Medicine consult appreciated. Referral packet sent to [facility]. 04/13/21: attempt am dose of 5 mg Haldol, continue 10 hs with Ativan. Needs med clearance for ECT. Will hold Lovenox today as some improvement in activity. 04/12/21: continue with haldol and ativan. He was provided with legal paperwork regarding filing for ECT. 04/11/21: continue with haldol and ativan po or IM. Adding mouth checks if he accepts po haldol. Consulted hospitalist for pre-ECT physical exam. He refuses attempts to clip his fingernails. 04/10/21: Add folate supplement. Potassium level improving. Sent out labs for copper and ceruloplasmin. Engaged verbally with multiple staff and briefly watched movie with peers today. Started process for court-ordered ECT. 04/09/21: continue haldol and ativan po or IM. Working on process for consideration for court-ordered ECT. 04/08/21: continue haldol 10mg po or IM and ativan po or IM. Took potassium supplementation in juice yesterday will recheck labs in a few days. Agree with plan to pursue court order for ECT given non-responsiveness to other medication trials so far and his refusal to consistently take any po medication options. 04/07/21: limited PO, remains hypokalemic but overall labs stable 04/06/21: repeat labs in am, consider medicine consult (currently no acute indication for transfer), previous experience was he was less active when prescribed Zyprexa so monitor risks/benefits of Haldol. 04/05/21: attempt to replete K again, Discontinue Emsam patch, pursue court order for ECT when offices reopen after . Continue IM Haldol with Ativan trial for now. 04/04/21: Haldol increased to 10 mg PO or IM yesterday with no change overnight, will shift to pm. Will d/c Emsam patch after tomorrow's dose as no sustained benefit and will need to pursue court order for ECT after holiday weekend. 03/31/21: increase haldol to 5 mg po or IM and ativan 1mg po or IM. Continue Emsam patch. 03/30/21: continue haldol 2.5 mg po or IM and ativan 1mg po or IM. Continue Emsam patch. Walked three laps around the unit with encouragement today. 03/29/21: Starting haldol 2.5 mg po or IM and ativan 1mg po or IM for suspected psychosis with negativism, lack of personal care, thought blocking/negative sx and avolition. Continue Emsam patch. Discontinued modafinil. 03/28/21: continue to offer medications. Gave ativan 1mg IM x1 last night after additional episode of spitting. Repeat labwork today showing improvement in nutritional status (albumin and total protein now normal and BUN/CR wnl). 03/27/21: continue to offer medications, he continues to refuse. Continuing to explore ways to involve his extended family or other aspects of care which could incentive his engagement in care. May need to consider if a less sedating antipsychotic medication should be re-trialed. Referral for [facility] has been accepted. 03/26/21: continue current medications, refused modafinil but will try again over next few days. Continue with ativan 1mg BIDM po 03/25/21: start modafinil 50 mg qAM, will monitor carefully for any interactions with MAOI. Discontinued ativan IM for refusal of po. Reducing ativan dosing from TID po to BID po in the afternoon to avoid combining morning stimulant with morning benzo as this would be counterproductive to stimulant trial. 03/24/21: continue current medications. 03/23/21: labwork done today and reviewed no significant changes from prior labwork, still has elevated Cl. Continue with lovenox, emsam patch, and ativan 1 mg po TID (with BID IM for refusal) 03/22/21: labs in am and resume Lovenox given regression past 3 days. 03/18/21: unable to care for self outside of hospital, continue Emsam patch, will not increase as I do not believe he can follow appropriate dietary restrictions at higher doses. 03/17/21: Ativan 1 mg PO TID (inject up to BID for refusal). 03/16/21: resume IM Ativan for refusal of PO Ativan. 03/15/21: Continue current medications. Making referral to [facility] given slow progression and he is still very far from his baseline which will require extended treatment and thus he will be best served by a longer term treatment approach. 03/14/21: Continue with current medications. Reviewed labwork, K+ improved but still signs of poor nutrition. Elevated ALT could be side effect from Emsam p atch (occurs in <1/100 - 05/999 pts), will continue to monitor. may be able to consider transition to a po medication if he remains consistent with accepting po medications but for now Emsam patch benefit is felt to outweigh risk of slight ALT elevation. 03/13/21: Continue with current medications. Supports from [employer] will visit tomorrow. Labwork CMP tomorrow morning to ensure correction of hypokalemia. 03/12/21: Continue with current medications. Discussed with treatment team having his [facility] supports come for a visit and they will visit on . Reviewed his interactions with staff during evening hours/overnight in the chart and continues to show progress with engagement. 03/11/21: Continue with ativan 1 mg BID po, canceled IM as he is agreeing to voluntary po. Given steady improvement over the last 1 week consistent with expected timeline for symptom improvement from Emsam patch he may no longer need longer term care option if improvement persists at this rate. If progress stalls or regression occurs then will reconsider if longer term option for treatment is required. 03/10/21: Reduce ativan to 1 mg BID due to dizziness, low BP and possible fall yesterday. Will discontinue lovenox per his request and since he is now consistently moving around throughout the day and at night, discussed risk of blood clots if he doesn't continue to move around and ambulate frequently which he vocalized understanding of and agreement with. Given improvement in nutritional intake will hold off on rechecking labwork for now, will get repeat labs in 1 week on 03/14. 03/09/21: Reviewed interim progress. Continue Emsam patch and ativan 2mg BID trial-will monitor for excessive sedation. 03/08/21: Ativan 2 mg BID trial. 03/07/21: patient seen by neurology, appreciate input, seems severe vegetative symptoms due to depression though last few doses of Ativan have been more effective than previous. Continue Ativan 1 mg po BID (IM for refusal). Attempt to replete K with powder dissolved in juice. 03/04/21: will explore personal retirement as concerns he will not improve to point he can make meals/meet requirements to return to [facility] during this stay. 03/03/21--continue same. Cannot attempt coadmin with stimulant trial for hypersomnia as contraindicated with MAOI. No medical decompensation that would necessitate referral to medical or seeking court order for ECT. At minimum behaviors are challenging but more appropriate when willing to interact with staff. Need to consider longer term care options given slow progression. 03/02/21--interim care reviewed. Continue EMSAM and Lovenox injection. 03/01/21--Day 9 of Emsam patch. Continuing with behavioral plan to encourage behavioral activation-he was provided with plan with goals of having him come out of his room to eat meals, cooperate with repositioning, stand up when his sheets are changed/or if he prefers to stay in bed until the evening then clean sheets can be provided for him to put on the bed or request help putting on the bed in the evening, and continue independently voiding in his bedside urinal, shower can be started for him but he should be encouraged to get into the shower on his own, encourage him to address basic hygiene by continuing to provide him with easy access to his toothbrush, shampoo, etc. 02/28/21--Day 8 of Emsam patch. Now seeing new pattern of daily food intake which is encouraging. Continues to present with regressed behaviors and refusal to interact during the day. 02/27/21--Continue with Emsam patch. Getting out of bed more in the evenings and eating more. Lack of engagement during the day was volitional-pulling blanket over his head after he saw me enter his room. Also becoming more irritable with staff when he is encouraged to do more on his own for behavioral activation. 02/26/21-Continue with Emsam patch. 304 status granted. Ate last night and interacted with staff but no engagement today. 02/25/21--Continues to demonstrate severe depression with neurovegetative symptoms with no engagement with staff. Behavioral plan challenged by finding a reward/incentive that he enjoys. Continuing to encourage behavioral activation. Petitioned for 304 status with hearing scheduled for tomorrow given ongoing symptom burden and need for ongoing treatment. Remains on lovenox for DVT prophylaxis. Continue with Emsam patch. 02/24/21--Remains isolative and will not engage verbally. Encouragingly is attending slightly more to some of his ADLs, will continue with behavioral plan in hopes to continue encouraging behavioral activation although food does not seem to be a good motivator/reward for him. Will continue to think about other possible motivators for him to help encourage increased activity, po intake and engagement with therapeutic milieu. No signs of HTN or other side effects from MAOI at this point. 02/23/21--Continues to demonstrate neurovegetative symptoms of depression, remaining in bed most of the day but sometimes more engagement in the evenings. Will implement behavioral plan to encourage behavioral activation to treat neurovegetative symptoms in conjunction with Emsam as well as to encourage increased participation with ADLs. Nursing to provide him with tools to help him eat and promote good hygiene (brining in meals, supplies to wash up) and then if he does this independently will bring in ice cream or chips as reward to see if this helps with activation and increased po intake. 02/22/21--neurologic work up with EEG and brain MRI unremarkable, continue Emsam trial. 02/21/21--complex differential--depression with psychotic features in a patient with bipolar disorder most likely, certainly not typcial catatonia. No hx of hyperphagia or hypersexuality known that would suggest Kleine-Hess syndrome. Will proceed with Emsam patch 6 mg trial as only means to administer antidepressant. Will check with an ECT facility to determine if can treat patient if pursue a court order (will await emsam trial first). MRI brain (patient will need various x rays first as can't answer screening questions, no hx of pacemaker on chart). bedside EEG to rule out status epilepticus. 02/19/21--non-formulary request for Emsam patch. Hasn't taken antidepressants for at least 6 weeks. Would reconsider current med doses when this becomes available. without antidepressant he will continue to decompensate medically and is at significant risk of further decompensation. 02/17/21--lytes, Bun/Cr improved; given sleep phase shift desirable to shift antipsychotic to pm meal with IM Zyprexa for refusal. Bedside EEG likely poor quality/low yeild but consider if no improvement. 02/16/21--Reviewed care by Dr. Garces in italics. will d/c IM Ativan in favor of Zyprexa IM for failure to take Latuda. Does take Lorazepam prn PO, adjust dose and frequency and monitor use. Will repeat labs and PO intake so variable and hard to track. 02/09/2021--admitted to [facility]. Ativan 2mg SL TID ordered. Track Is&Os. Vitals BID. 02/10/2021--continue with ativan 2mg TID SL. Showing significant improving in catatonic symptoms since ativan trial last night. If he continues to walk around no need for DVT prophylaxis. Will consider if 302 needs to be converted to 303 based on progress today. 02/11/2021--continue with scheduled ativan. Less engagement today but still eating and drinking. Plan for likely 303 given his inability/reluctance to engage in treatment. Reviewed outside records. 02/12/2021--continues to refuse ativan today and won't engage with anyone nor leave his bed except to use the bathroom and to eat at night. Given some movement in the evening and to the bathroom he doesn't require DVT prophylaxis at this time but this remains a concern should he clinically worsen and will continue to monitor his nutritional and medical status closely. 02/13/2021--placed on 303 status due to ongoing decompensation due to catatonia including refusal of medication, not eating, not drinking, not communicating with anyone and lying in bed all day. Once catatonia begins to improve with treatment will aim to start latuda which helped previously. [place] to require medications over objection for ativan to treat catatonia. If catatonia does not respond quickly to ativan then will consider if DVT prophylaxis should be initiated. 02/14/2021--no significant change in behaviors with additional of scheduled ativan 2 mg BID as medication over objection. Given concern for skin breakdown consult was placed for wound nurse. Given concern for possible DVT and after discussion with hospitalist will begin lovenox 40mg subQ daily. David was able to vocalize consent for this as he remains mute and unable/unwilling to engage but explained the risks, benefits, alternatives and rationale for lovenox and that we will be offering this to him. 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 02/15/2021--Have ruled out catatonia given inconsistent response to ativan trial, multiple observed examples of volitional movement immediately following periods of patient lying in bed and mute. Subsequent catatonia scales have been negative and patient feels that his symptoms represent withdrawn features of anxiety and depression. Given bipolar depression with neurovegetative features will start latuda. Encouragingly he is eating more and drinking more and got out of bed twice last night. Risk Factors Assessment Male: Yes : Yes Do You Have Access To A Gun?: No (in supportive living enviornment, pt unable to answer ) Mental Health Diagnoses: Yes Previous Psychiatric Hospitalization: Yes Protective Factors Assessment Employed: No Interval History Identifying Information 40 yo man with history of catatonia, depression, schizoaffective disorder admitted due to concern for decompensation with failure of self-care at [facility]. Admitted on 302, now 305. Chief Complaint mute Review of Systems Sleep Information Total Hours of Sleep: 6.5 Sleep Comments: pt given trazodone per rn. pt on q-15 minute checks Meal Information Percent Meal Consumed - Breakfast: 100 Percent Meal Consumed - Lunch: 50 Percent Meal Consumed - Dinner: 100 Nutrition Comment: pt. OOB & had juice and 2 bowls of cereal Subjective Subjective Patient was seen & assessed and interval progress reviewed with treatment team nursing and social work. Has been eating and drinking and showering more consistently. Has been irritable at times with staff and this morning was unresponsive with staff. With me was mute, lying under blanket on his bed not responding to verbal attempts to engage with him. Physical Exam Psychiatric Orientation: alert; + uncooperative Apperance: + disheveled Eye Contact: + poor eye contact Motor Behavior: + psychomotor retardation Speech: + mute Affect: + flat affect Cognition: + attention not intact Estimated Intelligence: consistent with education level Insight: + severely impaired insight Judgement: + severely impaired judgement Vital Signs (Past 24 Hours) Last Vital Signs Temp 37.1 C 05/02/21 20:07 Pulse 92 H 05/02/21 06:26 Resp 16 05/02/21 06:26 BP 101/67 05/02/21 06:26 Pulse Ox 94 04/03/21 20:37 Results & Data ([facility]) Current Inpatient Medications Current Inpatient Medications: Current Inpatient Medications Acetaminophen (Acetaminophen 325 Mg Tab) 650 mg PO Q4H PRN PRN Reason: Headache or Minor Fever Stop: 06/11/21 10:27 Last Admin: 03/16/21 10:34 Dose: 325 mg Documented by: Al Hydrox/Mg Hydrox/Simethicone (Aluminum/Magnesium Susp 30 Ml Udc) 30 ml PO Q4H PRN PRN Reason: GI Upset Stop: 06/11/21 10:27 Benztropine Mesylate (Benztropine Mesylate 1 Mg Tab) 1 mg PO Q6 PRN PRN Reason: Muscle Spasm Stop: 06/11/21 08:40 Bismuth Subsalicylate (Bismuth Subsalicylate Liqd 236 Ml) 15 ml PO PRN PRN PRN Reason: Loose Stool Stop: 06/11/21 02:27 Bupropion HCl (Bupropion Sr 100 Mg Tabcr) 100 mg PO [facility] Stop: 06/01/21 08:59 Last Admin: 05/03/21 09:54 Dose: 100 mg Documented by: Folic Acid (Folic Acid 1 Mg Tab) 1 mg PO [facility] Stop: 06/11/21 21:59 Last Admin: 05/02/21 20:51 Dose: 1 mg Documented by: Haloperidol (Haloperidol 5 Mg Tab) 10 mg PO [facility] Stop: 06/11/21 08:59 Last Admin: 05/03/21 09:54 Dose: 10 mg Documented by: Lamotrigine (Lamotrigine 25 Mg Tab) 25 mg PO [facility] Stop: 05/29/21 08:59 Last Admin: 05/03/21 09:54 Dose: 25 mg Documented by: Lorazepam (Lorazepam 1 Mg Tab) 1 mg PO Q6 PRN PRN Reason: Anxiety/Agitation Stop: 06/11/21 08:14 Last Admin: 04/04/21 20:52 Dose: 1 mg Documented by: Magnesium Hydroxide (Magnesium Hydroxide Susp 30 Ml Udc) 30 ml PO DAILY PRN PRN Reason: Constipation Stop: 06/11/21 10:27 Olanzapine (Olanzapine 10 Mg Tab) 10 mg PO [facility] Stop: 05/30/21 21:59 Last Admin: 05/02/21 20:51 Dose: 10 mg Documented by: Sodium Chloride (Sodium Chloride 0.65% Na Soln 45 Ml (Phil Campbell)) 1 - 2 sprays NA PRN PRN PRN Reason: Nasal Dryness/Congestion Stop: 06/11/21 10:27 Trazodone HCl (Trazodone Hcl 100 Mg Tab) 100 mg PO [facility] Stop: 05/27/21 21:59 Last Admin: 05/02/21 20:51 Dose: 100 mg Documented by: Mental Health & Subst Abuse Tx Psychiatrist Name of Psychiatrist: Oniel Negron Psychiatrist's Date of Appointment with Psychiatrist: 03/13/21 Time of Appointment with Psychiatrist: 9:20am Psychiatric Appointment Comment: Zoom *is on waiting list for appt. sooner Therapist Name of Therapist: Unknown Gear Finisher Name of Gear Finisher: Marui ([facility]) Post Discharge Appointments Primary Care Physician Name Of Family Doctor: Unknown
[2021-05-03] MEDS: traZODone HCL 100 MG TAB PO SCH (21:46)
[2021-05-03] MEDS: FOLIC ACID 1 MG TAB PO SCH (21:46)
[2021-05-03] MEDS: OLANZapine 10 MG TAB PO SCH (21:46)
[2021-05-04] MEDS: haloperidoL 5 MG TAB PO SCH (09:25)
[2021-05-04] MEDS: buPROPion SR 100 MG TABCR PO SCH (09:25)
[2021-05-04] MEDS: lamoTRIgine 25 MG TAB PO SCH (09:26)
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
[2021-05-04] MEDS: FOLIC ACID 1 MG TAB PO SCH (21:09)
[2021-05-04] MEDS: traZODone HCL 100 MG TAB PO SCH (21:09)
[2021-05-04] MEDS: OLANZapine 5 MG TABLET PO SCH (21:10)
[2021-05-05] MEDS: lamoTRIgine 25 MG TAB PO SCH (09:18)
[2021-05-05] MEDS: buPROPion SR 100 MG TABCR PO SCH (09:18)
--- NOTE | 2021-05-05 14:34 | Psychiatric Progress Note ---
Date of Service May 05, 2021 Impression / Recommendations Impression The patient is a 40 year old with a history of schizoaffective disorder who was admitted for failure of self-care and worsening decompensation at skilled nursing. His functioning is poor with inconsistent activity and PO intake despite trials of Ativan, Emsam patch, IM Zyprexa, and now Haldol on 305 commitment. For first 2 months of his stay he was not taking PO meds consistently and was largely mute though this has improved dramatically following court order for ECT. He remains resistant to groups but is motivated to discuss housing options and take PO medication. He is now expressing preferences with regards to his care. 05/05/21: intermittent progress, eating and showering more consistently but still will not engage at times and reverts back to lying in bed for much of the day. Is motivated to work on housing options. Tolerating increased dose of olanzapine. Plan: motivational interviewing about engaging with family and attending groups on the unit; will consider increase of Wellbutrin tomorrow. (1) Schizoaffective disorder: 05/05/21: continue current medications. 05/04/21: increase olanzapine to 15 mg qhs and discontinue haldol. Continue other medications. 05/03/21: continue current medications-trazodone 100mg qhs, haldol 10 mg qam, lamictal 25 mg qd, olanzapine 10 mg qhs, wellbutrin SR 100mg qd. Goal will be to move to antipsychotic monotherapy. Will discuss plan to taper haldol with David when he is able to re-engage and state his preferences. 05/01/21: restart Wellbutrin 100 mg SR Qam with plan to titrate. stated he will be in contempt of court if doesn't complete a 4 hr parenting course as a requirement of their divorce proceeding. Letter provided with dates of hospitalization. 04/30/21: d/c hs Haldol, titrate Zyprexa 10 mg po qhs. 04/29/21: refusing ECT at this time, withdrew referral to [facility] and Dr. Mccarthy and hospital corporate associate attorney notified, staff updated [facility] and is now officially on the waitlist, sw to schedule meeting with CM. Refusing COPPOLA of Haldol but accepting PO. 04/28/21: Re-reviewed risks/benefits of ECT and patient states "I'd still consider it". He is requesting to resume his regular medication regimen as prefers Zyprexa even after discussion of metabolic profile given rat exterminator side effects of Haldol. Discussed that at least for near future I'd like him to take both with the hopes he will still agree to a COPPOLA. Risks/benefits/alternatives reviewed re: Lamictal for mood stabilization. Discussion included but was not limited to slow titration to decrease risks of Huey's Yamil syndrome. Patient agrees to hold med/notify current prescriber of rash immediately. Consider Wellbutrin restart soon, has dopaminergic properties so don't want to exacerbate psychosis. 04/27/21: Patient voices he does not want ECT at this time but would like more time to think about it/discuss. Increase trazodone. Therapeutic time outside when security able/appropriate. He declines COPPOLA Haldol at this time. 04/26/21: continue haldol 10mg BID and trazodone 50mg qhs for insomnia. Awaiting ECT bed availability. 04/25/21: adding trazodone 50mg qhs for insomnia. 04/24/21: increase haldol back to 10mg BID as he continued to refuse lower dose. If he remains sedentary after tomorrow will re-start lovenox. 04/23/21: reduce to haldol 5mg qhs po after discussion with David with goal of improving adherence and folic acid, will d/c lovenox. Now on 305 commitment. 04/22/21: continue haldol and folate and lovenox. Completed 305 commitment paperwork. 04/21/21: continue haldol 10mg BID po and lovenox and folic acid. Day 1 of increased movement. 04/20/21: continue current medication of haldol 10 mg BID po, not doing IM for refusal. Awaiting response from ECT referral. If he can consistently show that he is moving and walking for three days in a row then we can stop the lovenox. 04/19/21: court testimony for [address] [facility] Judge Ruest answering questions about the patients condition, prognosis, treatment course, rationale for ECT and court order, risks/benefits of ECT. She will deliberated and the hospital corporate associate attorney forwarded the signed court order for ECT. Dr. Schmitt, Migdalia, and Mili updated. 04/16/21: Haldol 10 mg bid with IM for refusal of PO. Medicine consult appreciated. Referral packet sent to [facility]. 04/13/21: attempt am dose of 5 mg Haldol, continue 10 hs with Ativan. Needs med clearance for ECT. Will hold Lovenox today as some improvement in activity. 04/12/21: continue with haldol and ativan. He was provided with legal paperwork regarding filing for ECT. 04/11/21: continue with haldol and ativan po or IM. Adding mouth checks if he accepts po haldol. Consulted hospitalist for pre-ECT physical exam. He refuses attempts to clip his fingernails. 04/10/21: Add folate supplement. Potassium level improving. Sent out labs for copper and ceruloplasmin. Engaged verbally with multiple staff and briefly wa tched movie with peers today. Started process for court-ordered ECT. 04/09/21: continue haldol and ativan po or IM. Working on process for consideration for court-ordered ECT. 04/08/21: continue haldol 10mg po or IM and ativan po or IM. Took potassium supplementation in juice yesterday will recheck labs in a few days. Agree with plan to pursue court order for ECT given non-responsiveness to other medication trials so far and his refusal to consistently take any po medication options. 04/07/21: limited PO, remains hypokalemic but overall labs stable 04/06/21: repeat labs in am, consider medicine consult (currently no acute indication for transfer), previous experience was he was less active when prescribed Zyprexa so monitor risks/benefits of Haldol. 04/05/21: attempt to replete K again, Discontinue Emsam patch, pursue court order for ECT when offices reopen after hol. Continue IM Haldol with Ativan trial for now. 04/04/21: Haldol increased to 10 mg PO or IM yesterday with no change overnight, will shift to pm. Will d/c Emsam patch after tomorrow's dose as no sustained benefit and will need to pursue court order for ECT after holiday weekend. 03/31/21: increase haldol to 5 mg po or IM and ativan 1mg po or IM. Continue Emsam patch. 03/30/21: continue haldol 2.5 mg po or IM and ativan 1mg po or IM. Continue Emsam patch. Walked three laps around the unit with encouragement today. 03/29/21: Starting haldol 2.5 mg po or IM and ativan 1mg po or IM for suspected psychosis with negativism, lack of personal care, thought blocking/negative sx and avolition. Continue Emsam patch. Discontinued modafinil. 03/28/21: continue to offer medications. Gave ativan 1mg IM x1 last night after additional episode of spitting. Repeat labwork today showing improvement in nutritional status (albumin and total protein now normal and BUN/CR wnl). 03/27/21: continue to offer medications, he continues to refuse. Continuing to explore ways to involve his extended family or other aspects of care which could incentive his engagement in care. May need to consider if a less sedating antipsychotic medication should be re-trialed. Referral for [facility] has been accepted. 03/26/21: continue current medications, refused modafinil but will try again over next few days. Continue with ativan 1mg BIDM po 03/25/21: start modafinil 50 mg qAM, will monitor carefully for any interactions with MAOI. Discontinued ativan IM for refusal of po. Reducing ativan dosing from TID po to BID po in the afternoon to avoid combining morning stimulant with morning benzo as this would be counterproductive to stimulant trial. 03/24/21: continue current medications. 03/23/21: labwork done today and reviewed no significant changes from prior labwork, still has elevated Cl. Continue with lovenox, emsam patch, and ativan 1 mg po TID (with BID IM for refusal) 03/22/21: labs in am and resume Lovenox given regression past 3 days. 03/18/21: unable to care for self outside of hospital, continue Emsam patch, will not increase as I do not believe he can follow appropriate dietary restrictions at higher doses. 03/17/21: Ativan 1 mg PO TID (inject up to BID for refusal). 03/16/21: resume IM Ativan for refusal of PO Ativan. 03/15/21: Continue current medications. Making referral to [facility] given slow progression and he is still very far from his baseline which will require extended treatment and thus he will be best served by a longer term treatment approach. 03/14/21: Continue with current medications. Reviewed labwork, K+ improved but still signs of poor nutrition. Elevated ALT could be side effect from Emsam patch (occurs in <1/100 - 05/999 pts), will continue to monitor. may be able to consider transition to a po medication if he remains consistent with accepting po medications but for now Emsam patch benefit is felt to outweigh risk of slight ALT elevation. 03/13/21: Continue with current medications. Supports from [facility] will visit tomorrow. Labwork CMP tomorrow morning to ensure correction of hypokalemia. 03/12/21: Continue with current medications. Discussed with treatment team having his skilled nursing supports come for a visit and they will visit on . Reviewed his interactions with staff during evening hours/overnight in the chart and continues to show progress with engagement. 03/11/21: Continue with ativan 1 mg BID po, canceled IM as he is agreeing to voluntary po. Given steady improvement over the last 1 week consistent with expected timeline for symptom improvement from Emsam patch he may no longer need longer term care option if improvement persists at this rate. If progress stalls or regression occurs then will reconsider if longer term option for treatment is required. 03/10/21: Reduce ativan to 1 mg BID due to dizziness, low BP and possible fall yesterday. Will discontinue lovenox per his request and since he is now consistently moving around throughout the day and at night, discussed risk of blood clots if he doesn't continue to move around and ambulate frequently which he vocalized understanding of and agreement with. Given improvement in nutritional intake will hold off on rechecking labwork for now, will get repeat labs in 1 week on 03/14. 03/09/21: Reviewed interim progress. Continue Emsam patch and ativan 2mg BID trial-will monitor for excessive sedation. 03/08/21: Ativan 2 mg BID trial. 03/07/21: patient seen by neurology, appreciate input, seems severe vegetative symptoms due to depression though last few doses of Ativan have been more effective than previous. Continue Ativan 1 mg po BID (IM for refusal). Attempt to replete K with powder dissolved in juice. 03/04/21: will explore personal nursing home as concerns he will not improve to point he can make meals/meet requirements to return to [facility] during this stay. 03/03/21--continue same. Cannot attempt coadmin with stimulant trial for hypersomnia as contraindicated with MAOI. No medical decompensation that would necessitate referral to medical or seeking court order for ECT. At minimum behaviors are challenging but more appropriate when willing to interact with staff. Need to consider longer term care options given slow progression. 03/02/21--interim care reviewed. Continue EMSAM and Lovenox injection. 03/01/21--Day 9 of Emsam patch. Continuing with behavioral plan to encourage behavioral activation-he was provided with plan with goals of having him come out of his room to eat meals, cooperate with repositioning, stand up when his sheets are changed/or if he prefers to stay in bed until the evening then clean sheets can be provided for him to put on the bed or request help putting on the bed in the evening, and continue independently voiding in his bedside urinal, shower can be started for him but he should be encouraged to get into the shower on his own, encourage him to address basic hygiene by continuing to provide him with easy access to his toothbrush, shampoo, etc. 02/28/21--Day 8 of Emsam patch. Now seeing new pattern of daily food intake which is encouraging. Continues to present with regressed behaviors and refusal to interact during the day. 02/27/21--Continue with Emsam patch. Getting out of bed more in the evenings and eating more. Lack of engagement during the day was volitional-pulling blanket over his head after he saw me enter his room. Also becoming more irritable with staff when he is encouraged to do more on his own for behavioral activation. 02/26/21-Continue with Emsam patch. 304 status granted. Ate last night and interacted with staff but no engagement today. 02/25/21--Continues to demonstrate severe depression with neurovegetative symptoms with no engagement with staff. Behavioral plan challenged by finding a reward/incentive that he enjoys. Continuing to encourage behavioral activation. Petitioned for 304 status with hearing scheduled for tomorrow given ongoing symptom burden and need for ongoing treatment. Remains on lovenox for DVT prophylaxis. Continue with Emsam patch. 02/24/21--Remains isolative and will not engage verbally. Encouragingly is attending slightly more to some of his ADLs, will continue with behavioral plan in hopes to continue encouraging behavioral activation although food does not seem to be a good motivator/reward for him. Will continue to think about other possible motivators for him to help encourage increased activity, po intake and engagement with therapeutic milieu. No signs of HTN or other side effects from MAOI at this point. 02/23/21--Continues to demonstrate neurovegetative symptoms of depression, remaining in bed most of the day but sometimes more engagement in the evenings. Will implement behavioral plan to encourage behavioral activation to treat neurovegetative symptoms in conjunction with Emsam as well as to encourage increased participation with ADLs. Nursing to provide him with tools to help him eat and promote good hygiene (brining in meals, supplies to wash up) and then if he does this independently will bring in ice cream or chips as reward to see if this helps with activation and increased po intake. 02/22/21--neurologic work up with EEG and brain MRI unremarkable, continue Emsam trial. 02/21/21--complex differential--depression with psychotic features in a patient with bipolar disorder most likely, certainly not typcial catatonia. No hx of hyperphagia or hypersexuality known that would suggest Kleine-Hess syndrome. Will proceed with Emsam patch 6 mg trial as only means to administer antidepressant. Will check with an ECT facility to determine if can treat patient if pursue a court order (will await emsam trial first). MRI brain (patient will need various x rays first as can't answer screening questions, no hx of pacemaker on chart). bedside EEG to rule out status epilepticus. 02/19/21--non-formulary request for Emsam patch. Hasn't taken antidepressants for at least 6 weeks. Would reconsider current med doses when this becomes available. without antidepressant he will continue to decompensate medically and is at significant risk of further decompensation. 02/17/21--lytes, Bun/Cr improved; given sleep phase shift desirable to shift antipsychotic to pm meal with IM Zyprexa for refusal. Bedside EEG likely poor quality/low yeild but consider if no improvement. 02/16/21--Reviewed care by Dr. Garces in italics. will d/c IM Ativan in favor of Zyprexa IM for failure to take Latuda. Does take Lorazepam prn PO, adjust dose and frequency and monitor use. Will repeat labs and PO intake so variable and hard to track. 02/09/2021--admitted to [facility]. Ativan 2mg SL TID ordered. Track Is&Os. Vitals BID. 02/10/2021--continue with ativan 2mg TID SL. Showing significant improving in catatonic symptoms since ativan trial last night. If he continues to walk around no need for DVT prophylaxis. Will consider if 302 needs to be converted to 303 based on progress today. 02/11/2021--continue with scheduled ativan. Less engagement today but still eating and drinking. Plan for likely 303 given his inability/reluctance to engage in treatment. Reviewed outside records. 02/12/2021--continues to refuse ativan today and won't engage with anyone nor leave his bed except to use the bathroom and to eat at night. Given some movement in the evening and to the bathroom he doesn't require DVT prophylaxis at this time but this remains a concern should he clinically worsen and will continue to monitor his nutritional and medical status closely. 02/13/2021--placed on 303 status due to ongoing decompensation due to catatonia including refusal of medication, not eating, not drinking, not communicating with anyone and lying in bed all day. Once catatonia begins to improve with treatment will aim to start latuda which helped previously. [place] to require medications over objection for ativan to treat catatonia. If catatonia does not respond quickly to ativan then will consider if DVT prophylaxis should be initiated. 02/14/2021--no significant change in behaviors with additional of scheduled ativan 2 mg BID as medication over objection. Given concern for skin breakdown consult was placed for wound nurse. Given concern for possible DVT and after discussion with hospitalist will begin lovenox 40mg subQ daily. David was able to vocalize consent for this as he remains mute and unable/unwilling to engage but explained the risks, benefits, alternatives and rationale for lovenox and that we will be offering this to him. 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 02/15/2021--Have ruled out catatonia given inconsistent response to ativan trial, multiple observed examples of volitional movement immediately following periods of patient lying in bed and mute. Subsequent catatonia scales have been negative and patient feels that his symptoms represent withdrawn features of anxiety and depression. Given bipolar depression with neurovegetative features will start latuda. Encouragingly he is eating more and drinking more and got out of bed twice last night. Risk Factors Assessment Male: Yes : Yes Do You Have Access To A Gun?: No (in supportive living enviornment, pt unable to answer ) Mental Health Diagnoses: Yes Previous Psychiatric Hospitalization: Yes Protective Factors Assessment Employed: No Interval History Identifying Information 40 yo man with history of catatonia, depression, schizoaffective disorder admitted due to concern for decompensation with failure of self-care at [facility]. Admitted on 302, now 305. Chief Complaint "I need to find housing, socializing more will help me get better". Review of Systems Sleep Information Total Hours of Sleep: 7.5 Sleep Comments: pt given trazodone per rn. pt on q-15 minute checks Meal Information Percent Meal Consumed - Breakfast: 100 Percent Meal Consumed - Lunch: 100 Percent Meal Consumed - Dinner: 100 Nutrition Comment: pt. OOB & had juice and 2 bowls of cereal Subjective Subjective Patient was seen & assessed and interval progress reviewed with treatment team nursing and social work. He remains isolative to his room with the exception of eating his meals. Today David reports stable mood and feels he slept better with the increased dose of olanzapine. He denies any medication side effects. He shared that he spoke with his daughter and parents on the phone yesterday and got tejal gifts from them. He stated that he feels he is not a danger to himself or others and would "never cut myself like some people do". Discussed that I agreed with him and that our concern has been that he becomes some withdrawn that he doesn't eat, drink or move and is at risk for significant medical decompensation. He agreed with that and we discussed the improvements he's made in recent days. He emphasized that he feels housing is the biggest current concern and that once he is out of the hospital when housing is identified that "I'll get better because I'll be socializing more". Physical Exam Psychiatric Orientation: alert and oriented x 3 Apperance: + disheveled Eye Contact: + fair eye contact Motor Behavior: steady gait and station and no abnormal motor movements; n EPS Speech: normal rate/rhythm/volume of speech Affect: + flat affect Mood: + depressed mood Thought Process: goal directed thought process Thought Content: reality based without delusions Suicidal Thoughts: denies suicidal thoughts Homicidal Thoughts: denies homicidal thoughts Hallucinations: no auditory hallucinations and no visual hallucinations Insight: + impaired insight Judgement: + impaired judgement Vital Signs (Past 24 Hours) Last Vital Signs Temp 37.7 C H 05/04/21 20:00 Pulse 87 05/04/21 06:55 Resp 16 05/04/21 06:55 BP 108/71 05/04/21 06:55 Pulse Ox 94 04/03/21 20:37 Results & Data ([facility]) Current Inpatient Medications Current Inpatient Medications: Current Inpatient Medications Acetaminophen (Acetaminophen 325 Mg Tab) 650 mg PO Q4H PRN PRN Reason: Headache or Minor Fever Stop: 06/11/21 10:27 Last Admin: 03/16/21 10:34 Dose: 325 mg Documented by: Al Hydrox/Mg Hydrox/Simethicone (Aluminum/Magnesium Susp 30 Ml Udc) 30 ml PO Q4H PRN PRN Reason: GI Upset Stop: 06/11/21 10:27 Benztropine Mesylate (Benztropine Mesylate 1 Mg Tab) 1 mg PO Q6 PRN PRN Reason: Muscle Spasm Stop: 06/11/21 08:40 Bismuth Subsalicylate (Bismuth Subsalicylate Liqd 236 Ml) 15 ml PO PRN PRN PRN Reason: Loose Stool Stop: 06/11/21 02:27 Bupropion HCl (Bupropion Sr 100 Mg Tabcr) 100 mg PO QAM [facility] Stop: 06/01/21 08:59 Last Admin: 05/05/21 09:18 Dose: 100 mg Documented by: Folic Acid (Folic Acid 1 Mg Tab) 1 mg PO [facility] Stop: 06/11/21 21:59 Last Admin: 05/04/21 21:09 Dose: 1 mg Documented by: Lamotrigine (Lamotrigine 25 Mg Tab) 25 mg PO QAM [facility] Stop: 05/29/21 08:59 Last Admin: 05/05/21 09:18 Dose: 25 mg Documented by: Lorazepam (Lorazepam 1 Mg Tab) 1 mg PO Q6 PRN PRN Reason: Anxiety/Agitation Stop: 06/11/21 08:14 Last Admin: 04/04/21 20:52 Dose: 1 mg Documented by: Magnesium Hydroxide (Magnesium Hydroxide Susp 30 Ml Udc) 30 ml PO DAILY PRN PRN Reason: Constipation Stop: 06/11/21 10:27 Olanzapine (Olanzapine 5 Mg Tablet) 15 mg PO [facility] Stop: 06/03/21 21:59 Last Admin: 05/04/21 21:10 Dose: 15 mg Documented by: Sodium Chloride (Sodium Chloride 0.65% Na Soln 45 Ml ([place])) 1 - 2 sprays NA PRN PRN PRN Reason: Nasal Dryness/Congestion Stop: 06/11/21 10:27 Trazodone HCl (Trazodone Hcl 100 Mg Tab) 100 mg PO [facility] Stop: 05/27/21 21:59 Last Admin: 05/04/21 21:09 Dose: 100 mg Documented by: Mental Health & Subst Abuse Tx Psychiatrist Name of Psychiatrist: Oniel Negron Psychiatrist's Date of Appointment with Psychiatrist: 03/13/21 Time of Appointment with Psychiatrist: 9:20am Psychiatric Appointment Comment: Zoom *is on waiting list for appt. sooner Therapist Name of Therapist: Unknown Fill Plant Operator Name of Fill Plant Operator: Mauri MATTHEWS) Post Discharge Appointments Primary Care Physician Name Of Family Doctor: Unknown
[2021-05-05] MEDS: OLANZapine 5 MG TABLET PO SCH (21:14)
[2021-05-05] MEDS: traZODone HCL 100 MG TAB PO SCH (21:14)
[2021-05-05] MEDS: FOLIC ACID 1 MG TAB PO SCH (21:14)
[2021-05-06] MEDS: buPROPion SR 100 MG TABCR PO SCH (09:26)
[2021-05-06] MEDS: lamoTRIgine 25 MG TAB PO SCH (09:26)
--- NOTE | 2021-05-06 14:26 | Psychiatric Progress Note ---
Date of Service May 06, 2021 Impression / Recommendations Impression The patient is a 40 year old with a history of schizoaffective disorder who was admitted for failure of self-care and worsening decompensation at prison. His functioning is poor with inconsistent activity and PO intake despite trials of Ativan, Emsam patch, IM Zyprexa, and now Haldol on 305 commitment. For first 2 months of his stay he was not taking PO meds consistently and was largely mute though this has improved dramatically following court order for ECT. He remains resistant to groups but is motivated to discuss housing options and take PO medication. He is now expressing preferences with regards to his care. He remains in need of inpatient psychiatric care and has no current housing which he will require housing with level of supervision and support to avoid regression back to lack of eating/self-care, etc as seen prior to his current admission. 05/06/21: intermittent progress, eating and showering more consistently but still will not engage at times and reverts back to lying in bed for much of the day. Is motivated to work on housing options. Unclear if increased withdrawn behavior and his report of bad dreams is associated with internal preoccupation and psychotic symptoms. Behavior has otherwise been organized. Plan: increasing olanzapine to further help with sleep and potential internal stimuli. (1) Schizoaffective disorder: 05/06/21: increase olanzapine to 20mg qhs. Continue other medications. SW discussing with his outpatient CM potential housing options. 05/05/21: continue current medications. 05/04/21: increase olanzapine to 15 mg qhs and discontinue haldol. Continue other medications. 05/03/21: continue current medications-trazodone 100mg qhs, haldol 10 mg qam, lamictal 25 mg qd, olanzapine 10 mg qhs, wellbutrin SR 100mg qd. Goal will be to move to antipsychotic monotherapy. Will discuss plan to taper haldol with David when he is able to re-engage and state his preferences. 05/01/21: restart Wellbutrin 100 mg SR Qam with plan to titrate. stated he will be in contempt of court if doesn't complete a 4 hr parenting course as a requirement of their divorce proceeding. Letter provided with dates of hospitalization. 04/30/21: d/c hs Haldol, titrate Zyprexa 10 mg po qhs. 04/29/21: refusing ECT at this time, withdrew referral to [facility] and Dr. Mccarthy and hospital pulp beater notified, staff updated [facility] and is now officially on the waitlist, sw to schedule meeting with CM. Refusing COPPOLA of Haldol but accepting PO. 04/28/21: Re-reviewed risks/benefits of ECT and patient states "I'd still consider it". 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 Discussed that at least for near future I'd like him to take both with the hopes he will still agree to a COPPOLA. Risks/benefits/alternatives reviewed re: Lamictal for mood stabilization. Discussion included but was not limited to slow titration to decrease risks of Huey's Yamil syndrome. Patient agrees to hold med/notify current prescriber of rash immediately. Consider Wellbutrin restart soon, has dopaminergic properties so don't want to exacerbate psychosis. 04/27/21: Patient voices he does not want ECT at this time but would like more time to think about it/discuss. Increase trazodone. Therapeutic time outside when security able/appropriate. He declines COPPOLA Haldol at this time. 04/26/21: continue haldol 10mg BID and trazodone 50mg qhs for insomnia. Awaiting ECT bed availability. 04/25/21: adding trazodone 50mg qhs for insomnia. 04/24/21: increase haldol back to 10mg BID as he continued to refuse lower dose. If he remains sedentary after tomorrow will re-start lovenox. 04/23/21: reduce to haldol 5mg qhs po after discussion with David with goal of improving adherence and folic acid, will d/c lovenox. Now on 305 commitment. 04/22/21: continue haldol and folate and lovenox. Completed 305 commitment paperwork. 04/21/21: continue haldol 10mg BID po and lovenox and folic acid. Day 1 of increased movement. 04/20/21: continue current medication of haldol 10 mg BID po, not doing IM for refusal. Awaiting response from ECT referral. If he can consistently show that he is moving and walking for three days in a row then we can stop the lovenox. 04/19/21: court testimony for 30 min in front of [facility] Judge Ruest answering questions about the patients condition, prognosis, treatment course, rationale for ECT and court order, risks/benefits of ECT. She will deliberated and the hospital pulp beater forwarded the signed court order for ECT. Dr. Schmitt, Migdalia, and Mili updated. 04/16/21: Haldol 10 mg bid with IM for refusal of PO. Medicine consult appr eciated. Referral packet sent to [facility]. 04/13/21: attempt am dose of 5 mg Haldol, continue 10 hs with Ativan. Needs med clearance for ECT. Will hold Lovenox today as some improvement in activity. 04/12/21: continue with haldol and ativan. He was provided with legal paperwork regarding filing for ECT. 04/11/21: continue with haldol and ativan po or IM. Adding mouth checks if he accepts po haldol. Consulted hospitalist for pre-ECT physical exam. He refuses attempts to clip his fingernails. 04/10/21: Add folate supplement. Potassium level improving. Sent out labs for copper and ceruloplasmin. Engaged verbally with multiple staff and briefly watched movie with peers today. Started process for court-ordered ECT. 04/09/21: continue haldol and ativan po or IM. Working on process for consideration for court-ordered ECT. 04/08/21: continue haldol 10mg po or IM and ativan po or IM. Took potassium supplementation in juice yesterday will recheck labs in a few days. Agree with plan to pursue court order for ECT given non-responsiveness to other medication trials so far and his refusal to consistently take any po medication options. 04/07/21: limited PO, remains hypokalemic but overall labs stable 04/06/21: repeat labs in am, consider medicine consult (currently no acute indication for transfer), previous experience was he was less active when prescribed Zyprexa so monitor risks/benefits of Haldol. 04/05/21: attempt to replete K again, Discontinue Emsam patch, pursue court order for ECT when offices reopen after Thanksgiving holiday. Continue IM Haldol with Ativan trial for now. 04/04/21: Haldol increased to 10 mg PO or IM yesterday with no change overnight, will shift to pm. Will d/c Emsam patch after tomorrow's dose as no sustained benefit and will need to pursue court order for ECT after hol weekend. 03/31/21: increase haldol to 5 mg po or IM and ativan 1mg po or IM. Continue Emsam patch. 03/30/21: continue haldol 2.5 mg po or IM and ativan 1mg po or IM. Continue Emsam patch. Walked three laps around the unit with encouragement today. 03/29/21: Starting haldol 2.5 mg po or IM and ativan 1mg po or IM for suspected psychosis with negativism, lack of personal care, thought blocking/negative sx and avolition. Continue Emsam patch. Discontinued modafinil. 03/28/21: continue to offer medications. Gave ativan 1mg IM x1 last night after additional episode of spitting. Repeat labwork today showing improvement in nutritional status (albumin and total protein now normal and BUN/CR wnl). 03/27/21: continue to offer medications, he continues to refuse. Continuing to explore ways to involve his extended family or other aspects of care which could incentive his engagement in care. May need to consider if a less sedating antipsychotic medication should be re-trialed. Referral for [facility] has been accepted. 03/26/21: continue current medications, refused modafinil but will try again over next few days. Continue with ativan 1mg BIDM po 03/25/21: start modafinil 50 mg qAM, will monitor carefully for any interactions with MAOI. Discontinued ativan IM for refusal of po. Reducing ativan dosing from TID po to BID po in the afternoon to avoid combining morning stimulant with morning benzo as this would be counterproductive to stimulant trial. 03/24/21: continue current medications. 03/23/21: labwork done today and reviewed no significant changes from prior labwork, still has elevated Cl. Continue with lovenox, emsam patch, and ativan 1 mg po TID (with BID IM for refusal) 03/22/21: labs in am and resume Lovenox given regression past 3 days. 03/18/21: unable to care for self outside of hospital, continue Emsam patch, will not increase as I do not believe he can follow appropriate dietary restrictions at higher doses. 03/17/21: Ativan 1 mg PO TID (inject up to BID for refusal). 03/16/21: resume IM Ativan for refusal of PO Ativan. 03/15/21: Continue current medications. Making referral to [facility] given slow progression and he is still very far from his baseline which will require extended treatment and thus he will be best served by a longer term treatment approach. 03/14/21: Continue with current medications. Reviewed labwork, K+ improved but still signs of poor nutrition. Elevated ALT could be side effect from Emsam patch (occurs in <1/100 - 05/999 pts), will continue to monitor. may be able to consider transition to a po medication if he remains consistent with accepting po medications but for now Emsam patch benefit is felt to outweigh risk of slight ALT elevation. 03/13/21: Continue with current medications. Supports from [employer] will visit tomorrow. Labwork CMP tomorrow morning to ensure correction of hypokalemia. 03/12/21: Continue with current medications. Discussed with treatment team having his prison supports come for a visit and they will visit on . Reviewed his interactions with staff during evening hours/overnight in the chart and continues to show progress with engagement. 03/11/21: Continue with ativan 1 mg BID po, canceled IM as he is agreeing to voluntary po. Given steady improvement over the last 1 week consistent with expected timeline for symptom improvement from Emsam patch he may no longer need longer term care option if improvement persists at this rate. If progress stalls or regression occurs then will reconsider if longer term option for treatment is required. 03/10/21: Reduce ativan to 1 mg BID due to dizziness, low BP and possible fall yesterday. Will discontinue lovenox per his request and since he is now consi stently moving around throughout the day and at night, discussed risk of blood clots if he doesn't continue to move around and ambulate frequently which he vocalized understanding of and agreement with. Given improvement in nutritional intake will hold off on rechecking labwork for now, will get repeat labs in 1 week on 03/14. 03/09/21: Reviewed interim progress. Continue Emsam patch and ativan 2mg BID trial-will monitor for excessive sedation. 03/08/21: Ativan 2 mg BID trial. 03/07/21: patient seen by neurology, appreciate input, seems severe vegetative symptoms due to depression though last few doses of Ativan have been more effective than previous. Continue Ativan 1 mg po BID (IM for refusal). Attempt to replete K with powder dissolved in juice. 03/04/21: will explore personal intermediate as concerns he will not improve to point he can make meals/meet requirements to return to [facility] during this stay. 03/03/21--continue same. Cannot attempt coadmin with stimulant trial for hypers omnia as contraindicated with MAOI. No medical decompensation that would necessitate referral to medical or seeking court order for ECT. At minimum behaviors are challenging but more appropriate when willing to interact with staff. Need to consider longer term care options given slow progression. 03/02/21--interim care reviewed. Continue EMSAM and Lovenox injection. 03/01/21--Day 9 of Emsam patch. Continuing with behavioral plan to encourage behavioral activation-he was provided with plan with goals of having him come out of his room to eat meals, cooperate with repositioning, stand up when his sheets are changed/or if he prefers to stay in bed until the evening then clean sheets can be provided for him to put on the bed or request help putting on the bed in the evening, and continue independently voiding in his bedside urinal, shower can be started for him but he should be encouraged to get into the shower on his own, encourage him to address basic hygiene by continuing to provide him with easy access to his toothbrush, shampoo, etc. 02/28/21--Day 8 of Emsam patch. Now seeing new pattern of daily food intake which is encouraging. Continues to present with regressed behaviors and refusal to interact during the day. 02/27/21--Continue with Emsam patch. Getting out of bed more in the evenings and eating more. Lack of engagement during the day was volitional-pulling blanket over his head after he saw me enter his room. Also becoming more irritable with staff when he is encouraged to do more on his own for behavioral activation. 02/26/21-Continue with Emsam patch. 304 status granted. Ate last night and interacted with staff but no engagement today. 02/25/21--Continues to demonstrate severe depression with neurovegetative symptoms with no engagement with staff. Behavioral plan challenged by finding a reward/incentive that he enjoys. Continuing to encourage behavioral activation. Petitioned for 304 status with hearing scheduled for tomorrow given ongoing symptom burden and need for ongoing treatment. Remains on lovenox for DVT prophylaxis. Continue with Emsam patch. 02/24/21--Remains isolative and will not engage verbally. Encouragingly is attending slightly more to some of his ADLs, will continue with behavioral plan in hopes to continue encouraging behavioral activation although food does not seem to be a good motivator/reward for him. Will continue to think about other possible motivators for him to help encourage increased activity, po intake and engagement with therapeutic milieu. No signs of HTN or other side effects from MAOI at this point. 02/23/21--Continues to demonstrate neurovegetative symptoms of depression, remaining in bed most of the day but sometimes more engagement in the evenings. Will implement behavioral plan to encourage behavioral activation to treat neurovegetative symptoms in conjunction with Emsam as well as to encourage increased participation with ADLs. Nursing to provide him with tools to help him eat and promote good hygiene (brining in meals, supplies to wash up) and then if he does this independently will bring in ice cream or chips as reward to see if this helps with activation and increased po intake. 02/22/21--neurologic work up with EEG and brain MRI unremarkable, continue Emsam trial. 02/21/21--complex differential--depression with psychotic features in a patient with bipolar disorder most likely, certainly not typcial catatonia. No hx of hyperphagia or hypersexuality known that would suggest Kleine-Hess syndrome. Will proceed with Emsam patch 6 mg trial as only means to administer antidepressant. Will check with an ECT facility to determine if can treat patient if pursue a court order (will await emsam trial first). MRI brain (patient will need various x rays first as can't answer screening questions, no hx of pacemaker on chart). bedside EEG to rule out status epilepticus. 02/19/21--non-formulary request for Emsam patch. Hasn't taken antidepressants for at least 6 weeks. Would reconsider current med doses when this becomes available. without antidepressant he will continue to decompensate medically and is at significant risk of further decompensation. 02/17/21--lytes, Bun/Cr improved; given sleep phase shift desirable to shift antipsychotic to pm meal with IM Zyprexa for refusal. Bedside EEG likely poor quality/low yeild but consider if no improvement. 02/16/21--Reviewed care by Dr. Garces in italics. will d/c IM Ativan in favor of Zyprexa IM for failure to take Latuda. Does take Lorazepam prn PO, adjust dose and frequency and monitor use. Will repeat labs and PO intake so variable and hard to track. 02/09/2021--admitted to U. Ativan 2mg SL TID ordered. Track Is&Os. Vitals BID. 02/10/2021--continue with ativan 2mg TID SL. Showing significant improving in catatonic symptoms since ativan trial last night. If he continues to walk around no need for DVT prophylaxis. Will consider if 302 needs to be converted to 303 based on progress today. 02/11/2021--continue with scheduled ativan. Less engagement today but still eating and drinking. Plan for likely 303 given his inability/reluctance to engage in treatment. Reviewed outside records. 02/12/2021--continues to refuse ativan today and won't engage with anyone nor leave his bed except to use the bathroom and to eat at night. Given some movement in the evening and to the bathroom he doesn't require DVT prophylaxis at this time but this remains a concern should he clinically worsen and will continue to monitor his nutritional and medical status closely. 02/13/2021--placed on 303 status due to ongoing decompensation due to catatonia including refusal of medication, not eating, not drinking, not communicating with anyone and lying in bed all day. Once catatonia begins to improve with treatment will aim to start latuda which helped previously. [place] to require medications over objection for ativan to treat catatonia. If catatonia does not respond quickly to ativan then will consider if DVT prophylaxis should be initiated. 02/14/2021--no significant change in behaviors with additional of scheduled ativan 2 mg BID as medication over objection. Given concern for skin breakdown consult was placed for wound nurse. Given concern for possible DVT and after discussion with hospitalist will begin lovenox 40mg subQ daily. David was able to vocalize consent for this as he remains mute and unable/unwilling to engage but explained the risks, benefits, alternatives and rationale for lovenox and that we will be offering this to him. If no changes in potential catatonia by t omorrow will likely move to antipsychotic treatment for suspected MDD with psychotic features with severe neurovegatative symptoms. 02/15/2021--Have ruled out catatonia given inconsistent response to ativan trial, multiple observed examples of volitional movement immediately following periods of patient lying in bed and mute. Subsequent catatonia scales have been negative and patient feels that his symptoms represent withdrawn features of anxiety and depression. Given bipolar depression with neurovegetative features will start latuda. Encouragingly he is eating more and drinking more and got out of bed twice last night. Risk Factors Assessment Male: Yes : Yes Do You Have Access To A Gun?: No (in supportive living enviornment, pt unable to answer ) Mental Health Diagnoses: Yes Previous Psychiatric Hospitalization: Yes Protective Factors Assessment Employed: No Interval History Identifying Information 40 yo man with history of catatonia, depression, schizoaffective disorder admitted due to concern for decompensation with failure of self-care at [facility]. Admitted on 302, now 305. Chief Complaint "I had a lot of dreams so I didn't sleep well". Review of Systems Sleep Information Total Hours of Sleep: 7.25 Sleep Comments: pt given trazodone per rn. pt on q-15 minute checks Meal Information Percent Meal Consumed - Breakfast: 100 Percent Meal Consumed - Lunch: 100 Percent Meal Consumed - Dinner: 100 Nutrition Comment: pt. OOB & had juice and 2 bowls of cereal Subjective Subjective Patient was seen & assessed and interval progress reviewed with treatment team nursing and social work. More withdrawn yesterday. Today he is lying in bed and doesn't make eye contact but speaks with me. Notes that he is more withdrawn today due to having lots of dreams which he feels negatively impacted his sleep. He remains focused on goal of finding housing. Eating meals in the dining area but otherwise isolative to his room. He consents to increasing the olanzapine to further target his sleep. Physical Exam Psychiatric Orientation: alert and oriented x 3 Apperance: + disheveled Eye Contact: + poor eye contact Motor Behavior: steady gait and station and no abnormal motor movements; n EPS Speech: normal rate/rhythm/volume of speech Mood: + depressed mood Thought Process: + concrete thought process Thought Content: reality based without delusions Suicidal Thoughts: denies suicidal thoughts Homicidal Thoughts: denies homicidal thoughts Hallucinations: no auditory hallucinations and no visual hallucinations Insight: + impaired insight Judgement: + impaired judgement Vital Signs (Past 24 Hours) Last Vital Signs Temp 36.8 C 05/05/21 20:15 Pulse 87 05/04/21 06:55 Resp 16 05/04/21 06:55 BP 108/71 05/04/21 06:55 Pulse Ox 94 04/03/21 20:37 Results & Data ([facility]) Current Inpatient Medications Current Inpatient Medications: Current Inpatient Medications Acetaminophen (Acetaminophen 325 Mg Tab) 650 mg PO Q4H PRN PRN Reason: Headache or Minor Fever Stop: 06/11/21 10:27 Last Admin: 03/16/21 10:34 Dose: 325 mg Documented by: Al Hydrox/Mg Hydrox/Simethicone (Aluminum/Magnesium Susp 30 Ml Udc) 30 ml PO Q4H PRN PRN Reason: GI Upset Stop: 06/11/21 10:27 Benztropine Mesylate (Benztropine Mesylate 1 Mg Tab) 1 mg PO Q6 PRN PRN Reason: Muscle Spasm Stop: 06/11/21 08:40 Bismuth Subsalicylate (Bismuth Subsalicylate Liqd 236 Ml) 15 ml PO PRN PRN PRN Reason: Loose Stool Stop: 06/11/21 02:27 Bupropion HCl (Bupropion Sr 100 Mg Tabcr) 100 mg PO QAM OG Stop: 06/01/21 08:59 Last Admin: 05/06/21 09:26 Dose: 100 mg Documented by: Folic Acid (Folic Acid 1 Mg Tab) 1 mg PO HS OG Stop: 06/11/21 21:59 Last Admin: 05/05/21 21:14 Dose: 1 mg Documented by: Lamotrigine (Lamotrigine 25 Mg Tab) 25 mg PO QAM OG Stop: 05/29/21 08:59 Last Admin: 05/06/21 09:26 Dose: 25 mg Documented by: Lorazepam (Lorazepam 1 Mg Tab) 1 mg PO Q6 PRN PRN Reason: Anxiety/Agitation Stop: 06/11/21 08:14 Last Admin: 04/04/21 20:52 Dose: 1 mg Documented by: Magnesium Hydroxide (Magnesium Hydroxide Susp 30 Ml Udc) 30 ml PO DAILY PRN PRN Reason: Constipation Stop: 06/11/21 10:27 Olanzapine (Olanzapine 20 Mg Tablet) 20 mg PO HS [facility] Stop: 06/05/21 21:59 Sodium Chloride (Sodium Chloride 0.65% Na Soln 45 Ml ([place])) 1 - 2 sprays NA PRN PRN PRN Reason: Nasal Dryness/Congestion Stop: 06/11/21 10:27 Trazodone HCl (Trazodone Hcl 100 Mg Tab) 100 mg PO HS [facility] Stop: 05/27/21 21:59 Last Admin: 05/05/21 21:14 Dose: 100 mg Documented by: Mental Health & Subst Abuse Tx Psychiatrist Name of Psychiatrist: Oniel Negron Psychiatrist's Date of Appointment with Psychiatrist: 03/13/21 Time of Appointment with Psychiatrist: 9:20am Psychiatric Appointment Comment: Zoom *is on waiting list for appt. sooner Therapist Name of Therapist: Unknown Home Health Care Worker Name of Home Health Care Worker: Mauri MATTHEWS) Post Discharge Appointments Primary Care Physician Name Of Family Doctor: Unknown
[2021-05-06] MEDS: traZODone HCL 100 MG TAB PO SCH (20:47)
[2021-05-06] MEDS: FOLIC ACID 1 MG TAB PO SCH (20:47)
[2021-05-06] MEDS: OLANZapine 20 MG TABLET PO SCH (20:47)
[2021-05-07] MEDS: lamoTRIgine 25 MG TAB PO SCH (09:17)
[2021-05-07] MEDS: buPROPion SR 100 MG TABCR PO SCH (09:17)
--- NOTE | 2021-05-07 11:03 | Psychiatric Progress Note ---
Date of Service May 07, 2021 Impression / Recommendations Impression The patient is a 40 year old with a history of schizoaffective disorder who was admitted for failure of self-care and worsening decompensation at custodial. His functioning is poor with inconsistent activity and PO intake despite trials of Ativan, Emsam patch, IM Zyprexa, and now Haldol on 305 commitment. For first 2 months of his stay he was not taking PO meds consistently and was largely mute though this has improved dramatically following court order for ECT. He remains resistant to groups but is motivated to discuss housing options and take PO medication. He is now expressing preferences with regards to his care. He remains in need of inpatient psychiatric care and has no current housing which he will require housing with level of supervision and support to avoid regression back to lack of eating/self-care, etc as seen prior to his current admission. 05/07/21: intermittent progress, eating and showering more consistently but still will not engage at times and lying in bed for much of the day. Is motivated to work on housing options. Unclear if increased withdrawn behavior and his report of dreams is associated with internal preoccupation and psychotic symptoms. Behavior has otherwise been organized. Remains isolative but agreeable to increasing Wellbutrin to further target depressive symptoms. Plan: increase Wellbutrin to 150mg XL (1) Schizoaffective disorder: 05/07/21: Increasing Wellbutrin to 150mg XL qAM. 05/06/21: increase olanzapine to 20mg qhs. Continue other medications. SW discussing with his outpatient CM potential housing options. 05/05/21: continue current medications. 05/04/21: increase olanzapine to 15 mg qhs and discontinue haldol. Continue other medications. 05/03/21: continue current medications-trazodone 100mg qhs, haldol 10 mg qam, lamictal 25 mg qd, olanzapine 10 mg qhs, wellbutrin SR 100mg qd. Goal will be to move to antipsychotic monotherapy. Will discuss plan to taper haldol with David when he is able to re-engage and state his preferences. 05/01/21: restart Wellbutrin 100 mg SR Qam with plan to titrate. stated he will be in contempt of court if doesn't complete a 4 hr parenting course as a requirement of their divorce proceeding. Letter provided with dates of hospitalization. 04/30/21: d/c hs Haldol, titrate Zyprexa 10 mg po qhs. 04/29/21: refusing ECT at this time, withdrew referral to [facility] and Dr. Mccarthy and hospital business control manager notified, staff updated [facility] and is now officially on the waitlist, sw to schedule meeting with CM. Refusing COPPOLA of Haldol but accepting PO. 04/28/21: Re-reviewed risks/benefits of ECT and patient states "I'd still consider it". He is requesting to resume his regular medication regimen as prefers Zyprexa even after discussion of metabolic profile given extermination supervisor side effects of Haldol. Discussed that at least for near future I'd like him to take both with the hopes he will still agree to a COPPOLA. Risks/benefits/alternatives reviewed re: Lamictal for mood stabilization. Discussion included but was not limited to slow titration to decrease risks of Huey's Yamil syndrome. Patient agrees to hold med/notify current prescriber of rash immediately. Consider Wellbutrin restart soon, has dopaminergic properties so don't want to exacerbate psychosis. 04/27/21: Patient voices he does not want ECT at this time but would like more time to think about it/discuss. Increase trazodone. Therapeutic time outside when security able/appropriate. He declines COPPOLA Haldol at this time. 04/26/21: continue haldol 10mg BID and trazodone 50mg qhs for insomnia. Awaiting ECT bed availability. 04/25/21: adding trazodone 50mg qhs for insomnia. 04/24/21: increase haldol back to 10mg BID as he continued to refuse lower dose. If he remains sedentary after tomorrow will re-start lovenox. 04/23/21: reduce to haldol 5mg qhs po after discussion with David with goal of improving adherence and folic acid, will d/c lovenox. Now on 305 commitment. 04/22/21: continue haldol and folate and lovenox. Completed 305 commitment paperwork. 04/21/21: continue haldol 10mg BID po and lovenox and folic acid. Day 1 of incre ased movement. 04/20/21: continue current medication of haldol 10 mg BID po, not doing IM for refusal. Awaiting response from ECT referral. If he can consistently show that he is moving and walking for three days in a row then we can stop the lovenox. 04/19/21: court testimony for 30 min in front of [facility] Judge Ruest answering questions about the patients condition, prognosis, treatment course, rationale for ECT and court order, risks/benefits of ECT. She will deliberated and the hospital business control manager forwarded the signed court order for ECT. Dr. Schmitt, Migdalia, and Mili updated. 04/16/21: Haldol 10 mg bid with IM for refusal of PO. Medicine consult appreciated. Referral packet sent to [facility]. 04/13/21: attempt am dose of 5 mg Haldol, continue 10 hs with Ativan. Needs med clearance for ECT. Will hold Lovenox today as some improvement in activity. 04/12/21: continue with haldol and ativan. He was provided with legal paperwork regarding filing for ECT. 04/11/21: continue with haldol and ativan po or IM. Adding mouth checks if he accepts po haldol. Consulted hospitalist for pre-ECT physical exam. He refuses attempts to clip his fingernails. 04/10/21: Add folate supplement. Potassium level improving. Sent out labs for copper and ceruloplasmin. Engaged verbally with multiple staff and briefly watched movie with peers today. Started process for court-ordered ECT. 04/09/21: continue haldol and ativan po or IM. Working on process for consideration for court-ordered ECT. 04/08/21: continue haldol 10mg po or IM and ativan po or IM. Took potassium supplementation in juice yesterday will recheck labs in a few days. Agree with plan to pursue court order for ECT given non-responsiveness to other medication trials so far and his refusal to consistently take any po medication options. 04/07/21: limited PO, remains hypokalemic but overall labs stable 04/06/21: repeat labs in am, consider medicine consult (currently no acute indication for transfer), previous experience was he was less active when prescribed Zyprexa so monitor risks/benefits of Haldol. 04/05/21: attempt to replete K again, Discontinue Emsam patch, pursue court order for ECT when offices reopen after hol. Continue IM Haldol with Ativan trial for now. 04/04/21: Haldol increased to 10 mg PO or IM yesterday with no change overnight, will shift to pm. Will d/c Emsam patch after tomorrow's dose as no sustained benefit and will need to pursue court order for ECT after holiday weekend. 03/31/21: increase haldol to 5 mg po or IM and ativan 1mg po or IM. Continue Emsam patch. 03/30/21: continue haldol 2.5 mg po or IM and ativan 1mg po or IM. Continue Emsam patch. Walked three laps around the unit with encouragement today. 03/29/21: Starting haldol 2.5 mg po or IM and ativan 1mg po or IM for suspected psychosis with negativism, lack of personal care, thought blocking/negative sx and avolition. Continue Emsam patch. Discontinued modafinil. 03/28/21: continue to offer medications. Gave ativan 1mg IM x1 last night after additional episode of spitting. Repeat labwork today showing improvement in nutritional status (albumin and total protein now normal and BUN/CR wnl). 03/27/21: continue to offer medications, he continues to refuse. Continuing to explore ways to involve his extended family or other aspects of care which could incentive his engagement in care. May need to consider if a less sedating antipsychotic medication should be re-trialed. Referral for [facility] has been accepted. 03/26/21: continue current medications, refused modafinil but will try again over next few days. Continue with ativan 1mg BIDM po 03/25/21: start modafinil 50 mg qAM, will monitor carefully for any interactions with MAOI. Discontinued ativan IM for refusal of po. Reducing ativan dosing from TID po to BID po in the afternoon to avoid combining morning stimulant with morning benzo as this would be counterproductive to stimulant trial. 03/24/21: continue current medications. 03/23/21: labwork done today and reviewed no significant changes from prior labwork, still has elevated Cl. Continue with lovenox, emsam patch, and ativan 1 mg po TID (with BID IM for refusal) 03/22/21: labs in am and resume Lovenox given regression past 3 days. 03/18/21: unable to care for self outside of hospital, continue Emsam patch, will not increase as I do not believe he can follow appropriate dietary restrictions at higher doses. 03/17/21: Ativan 1 mg PO TID (inject up to BID for refusal). 03/16/21: resume IM Ativan for refusal of PO Ativan. 03/15/21: Continue current medications. Making referral to [facility] given slow progression and he is still very far from his baseline which will require extended treatment and thus he will be best served by a longer term treatment approach. 03/14/21: Continue with current medications. Reviewed labwork, K+ improved but still signs of poor nutrition. Elevated ALT could be side effect from Emsam patch (occurs in <1/100 - 05/999 pts), will continue to monitor. may be able to consider transition to a po medication if he remains consistent with accepting po medications but for now Emsam patch benefit is felt to outweigh risk of slight ALT elevation. 03/13/21: Continue with current medications. Supports from [facility] will visit tomorrow. Labwork CMP tomorrow morning to ensure correction of hypokalemia. 03/12/21: Continue with current medications. Discussed with treatment team having his custodial supports come for a visit and they will visit on . Reviewed his interactions with staff during evening hours/overnight in the chart and continues to show progress with engagement. 03/11/21: Continue with ativan 1 mg BID po, canceled IM as he is agreeing to voluntary po. Given steady improvement over the last 1 week consistent with expected timeline for symptom improvement from Emsam patch he may no longer need longer term care option if improvement persists at this rate. If progress stalls or regression occurs then will reconsider if longer term option for treatment is required. 03/10/21: Reduce ativan to 1 mg BID due to dizziness, low BP and possible fall yesterday. Will discontinue lovenox per his request and since he is now consistently moving around throughout the day and at night, discussed risk of blood clots if he doesn't continue to move around and ambulate frequently which he vocalized understanding of and agreement with. Given improvement in nutritional intake will hold off on rechecking labwork for now, will get repeat labs in 1 week on 03/14. 03/09/21: Reviewed interim progress. Continue Emsam patch and ativan 2mg BID trial-will monitor for excessive sedation. 03/08/21: Ativan 2 mg BID trial. 03/07/21: patient seen by neurology, appreciate input, seems severe vegetative symptoms due to depression though last few doses of Ativan have been more effective than previous. Continue Ativan 1 mg po BID (IM for refusal). Attempt to replete K with powder dissolved in juice. 03/04/21: will explore personal intermediate as concerns he will not improve to point he can make meals/meet requirements to return to [facility] during this stay. 03/03/21--continue same. Cannot attempt coadmin with stimulant trial for hypersomnia as contraindicated with MAOI. No medical decompensation that would necessitate referral to medical or seeking court order for ECT. At minimum behaviors are challenging but more appropriate when willing to interact with staff. Need to consider longer term care options given slow progression. 03/02/21--interim care reviewed. Continue EMSAM and Lovenox injection. 03/01/21--Day 9 of Emsam patch. Continuing with behavioral plan to encourage behavioral activation-he was provided with plan with goals of having him come out of his room to eat meals, cooperate with repositioning, stand up when his sheets are changed/or if he prefers to stay in bed until the evening then clean sheets can be provided for him to put on the bed or request help putting on the bed in the evening, and continue independently voiding in his bedside urinal, shower can be started for him but he should be encouraged to get into the shower on his own, encourage him to address basic hygiene by continuing to provide him with easy access to his toothbrush, shampoo, etc. 02/28/21--Day 8 of Emsam patch. Now seeing new pattern of daily food intake which is encouraging. Continues to present with regressed behaviors and refusal to interact during the day. 02/27/21--Continue with Emsam patch. Getting out of bed more in the evenings and eating more. Lack of engagement during the day was volitional-pulling blanket over his head after he saw me enter his room. Also becoming more irritable with staff when he is encouraged to do more on his own for behavioral activation. 02/26/21-Continue with Emsam patch. 304 status granted. Ate last night and interacted with staff but no engagement today. 02/25/21--Continues to demonstrate severe depression with neurovegetative symptoms with no engagement with staff. Behavioral plan challenged by finding a reward/incentive that he enjoys. Continuing to encourage behavioral activation. Petitioned for 304 status with hearing scheduled for tomorrow given ongoing symptom burden and need for ongoing treatment. Remains on lovenox for DVT prophylaxis. Continue with Emsam patch. 02/24/21--Remains isolative and will not engage verbally. Encouragingly is attending slightly more to some of his ADLs, will continue with behavioral plan in hopes to continue encouraging behavioral activation although food does not seem to be a good motivator/reward for him. Will continue to think about other possible motivators for him to help encourage increased activity, po intake and engagement with therapeutic milieu. No signs of HTN or other side effects from MAOI at this point. 02/23/21--Continues to demonstrate neurovegetative symptoms of depression, remaining in bed most of the day but sometimes more engagement in the evenings. Will implement behavioral plan to encourage behavioral activation to treat neurovegetative symptoms in conjunction with Emsam as well as to encourage increased participation with ADLs. Nursing to provide him with tools to help him eat and promote good hygiene (brining in meals, supplies to wash up) and then if he does this independently will bring in ice cream or chips as reward to see if this helps with activation and increased po intake. 02/22/21--neurologic work up with EEG and brain MRI unremarkable, continue Emsam trial. 02/21/21--complex differential--depression with psychotic features in a patient with bipolar disorder most likely, certainly not typcial catatonia. No hx of hyperphagia or hypersexuality known that would suggest Kleine-Hess syndrome. Will proceed with Emsam patch 6 mg trial as only means to administer antidepressant. Will check with an ECT facility to determine if can treat patient if pursue a court order (will await emsam trial first). MRI brain (patient will need various x rays first as can't answer screening questions, no hx of pacemaker on chart). bedside EEG to rule out status epilepticus. 02/19/21--non-formulary request for Emsam patch. Hasn't taken antidepressants for at least 6 weeks. Would reconsider current med doses when this becomes available. without antidepressant he will continue to decompensate medically and is at significant risk of further decompensation. 02/17/21--lytes, Bun/Cr improved; given sleep phase shift desirable to shift antipsychotic to pm meal with IM Zyprexa for refusal. Bedside EEG likely poor quality/low yeild but consider if no improvement. 02/16/21--Reviewed care by Dr. Garces in italics. will d/c IM Ativan in favor of Zyprexa IM for failure to take Latuda. Does take Lorazepam prn PO, adjust dose and frequency and monitor use. Will repeat labs and PO intake so variable and hard to track. 02/09/2021--admitted to [facility]. Ativan 2mg SL TID ordered. Track Is&Os. Vitals BID. 02/10/2021--continue with ativan 2mg TID SL. Showing significant improving in catatonic symptoms since ativan trial last night. If he continues to walk around no need for DVT prophylaxis. Will consider if 302 needs to be converted to 303 based on progress today. 02/11/2021--continue with scheduled ativan. Less engagement today but still eating and drinking. Plan for likely 303 given his inability/reluctance to engage in treatment. Reviewed outside records. 02/12/2021--continues to refuse ativan today and won't engage with anyone nor leave his bed except to use the bathroom and to eat at night. Given some movement in the evening and to the bathroom he doesn't require DVT prophylaxis at this time but this remains a concern should he clinically worsen and will continue to monitor his nutritional and medical status closely. 02/13/2021--placed on 303 status due to ongoing decompensation due to catatonia including refusal of medication, not eating, not drinking, not communicating with anyone and lying in bed all day. Once catatonia begins to improve with treatment will aim to start latuda which helped previously. [place] to require medications over objection for ativan to treat catatonia. If catatonia does not respond quickly to ativan then will consider if DVT prophylaxis should be initiated. 02/14/2021--no significant change in behaviors with additional of scheduled ativan 2 mg BID as medication over objection. Given concern for skin breakdown consult was placed for wound nurse. Given concern for possible DVT and after discussion with hospitalist will begin lovenox 40mg subQ daily. David was able to vocalize consent for this as he remains mute and unable/unwilling to engage but explained the risks, benefits, alternatives and rationale for lovenox and t hat we will be offering this to him. 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 02/15/2021--Have ruled out catatonia given inconsistent response to ativan trial, multiple observed examples of volitional movement immediately following periods of patient lying in bed and mute. Subsequent catatonia scales have been negative and patient feels that his symptoms represent withdrawn features of anxiety and depression. Given bipolar depression with neurovegetative features will start latuda. Encouragingly he is eating more and drinking more and got out of bed twice last night. Risk Factors Assessment Male: Yes : Yes Do You Have Access To A Gun?: No (in supportive living enviornment, pt unable to answer ) Mental Health Diagnoses: Yes Previous Psychiatric Hospitalization: Yes Protective Factors Assessment Employed: No Interval History Identifying Information 40 yo man with history of catatonia, depression, schizoaffective disorder admitted due to concern for decompensation with failure of self-care at [facility]. Admitted on 302, now 305. Chief Complaint "I'm ok". Review of Systems Sleep Information Total Hours of Sleep: 7.25 Sleep Comments: pt given trazodone per rn. pt on q-15 minute checks Meal Information Percent Meal Consumed - Breakfast: 100 Percent Meal Consumed - Lunch: 100 Percent Meal Consumed - Dinner: 25 Nutrition Comment: pt. OOB & had juice and 2 bowls of cereal Subjective Subjective Patient was seen & assessed and interval progress reviewed with treatment team nursing and social work. This morning David reports his mood as "tired" which he attributes to possibly the increased olanzapine however he also liked having the increased dose as he feels he slept better. Encouraged him to set a goal for the day of going to groups or walking a certain number of laps but he feels uncertain about this. He did eat breakfast in the main room, otherwise remains largely isolative to his room. Could discuss briefly a card his daughter brought him for Marcella. Physical Exam Psychiatric Orientation: alert and oriented x 3 Apperance: + disheveled Eye Contact: + poor eye contact Motor Behavior: n tremor Speech: normal rate/rhythm/volume of speech Mood: + depressed mood Thought Process: + thought blocking and + concrete thought process Thought Content: + paranoid Suicidal Thoughts: denies suicidal thoughts Homicidal Thoughts: denies homicidal thoughts Hallucinations: no auditory hallucinations and no visual hallucinations Cognition: recent memory grossly intact, remote memory grossly intact and language grossly intact Estimated Intelligence: consistent with education level Insight: + impaired insight Judgement: + impaired judgement Vital Signs (Past 24 Hours) Last Vital Signs Temp 36.6 C 05/06/21 20:07 Pulse 87 05/04/21 06:55 Resp 16 05/04/21 06:55 BP 108/71 05/04/21 06:55 Pulse Ox 94 04/03/21 20:37 Results & Data ([facility]) Current Inpatient Medications Current Inpatient Medications: Current Inpatient Medications Acetaminophen (Acetaminophen 325 Mg Tab) 650 mg PO Q4H PRN PRN Reason: Headache or Minor Fever Stop: 06/11/21 10:27 Last Admin: 03/16/21 10:34 Dose: 325 mg Documented by: Al Hydrox/Mg Hydrox/Simethicone (Aluminum/Magnesium Susp 30 Ml Udc) 30 ml PO Q4H PRN PRN Reason: GI Upset Stop: 06/11/21 10:27 Benztropine Mesylate (Benztropine Mesylate 1 Mg Tab) 1 mg PO Q6 PRN PRN Reason: Muscle Spasm Stop: 06/11/21 08:40 Bismuth Subsalicylate (Bismuth Subsalicylate Liqd 236 Ml) 15 ml PO PRN PRN PRN Reason: Loose Stool Stop: 06/11/21 02:27 Bupropion HCl (Bupropion Sr 100 Mg Tabcr) 100 mg PO QAM OG Stop: 06/01/21 08:59 Last Admin: 05/07/21 09:17 Dose: 100 mg Documented by: Folic Acid (Folic Acid 1 Mg Tab) 1 mg PO HS OG Stop: 06/11/21 21:59 Last Admin: 05/06/21 20:47 Dose: 1 mg Documented by: Lamotrigine (Lamotrigine 25 Mg Tab) 25 mg PO QAM [facility] Stop: 05/29/21 08:59 Last Admin: 05/07/21 09:17 Dose: 25 mg Documented by: Lorazepam (Lorazepam 1 Mg Tab) 1 mg PO Q6 PRN PRN Reason: Anxiety/Agitation Stop: 06/11/21 08:14 Last Admin: 04/04/21 20:52 Dose: 1 mg Documented by: Magnesium Hydroxide (Magnesium Hydroxide Susp 30 Ml Udc) 30 ml PO DAILY PRN PRN Reason: Constipation Stop: 06/11/21 10:27 Olanzapine (Olanzapine 20 Mg Tablet) 20 mg PO HS [facility] Stop: 06/05/21 21:59 Last Admin: 05/06/21 20:47 Dose: 20 mg Documented by: Sodium Chloride (Sodium Chloride 0.65% Na Soln 45 Ml ([place])) 1 - 2 sprays NA PRN PRN PRN Reason: Nasal Dryness/Congestion Stop: 06/11/21 10:27 Trazodone HCl (Trazodone Hcl 100 Mg Tab) 100 mg PO [facility] Stop: 05/27/21 21:59 Last Admin: 05/06/21 20:47 Dose: 100 mg Documented by: Mental Health & Subst Abuse Tx Psychiatrist Name of Psychiatrist: Oniel Negron Psychiatrist's Date of Appointment with Psychiatrist: 03/13/21 Time of Appointment with Psychiatrist: 9:20am Psychiatric Appointment Comment: Zoom *is on waiting list for appt. sooner Therapist Name of Therapist: Unknown Maintenance Scheduler Name of Maintenance Scheduler: Mauri MATTHEWS) Post Discharge Appointments Primary Care Physician Name Of Family Doctor: Unknown
[2021-05-07] MEDS: OLANZapine 20 MG TABLET PO SCH (21:03)
[2021-05-07] MEDS: FOLIC ACID 1 MG TAB PO SCH (21:03)
[2021-05-07] MEDS: traZODone HCL 100 MG TAB PO SCH (21:03)
--- NOTE | 2021-05-08 08:56 | Psychiatric Progress Note ---
Date of Service May 08, 2021 Impression / Recommendations Impression The patient is a 40 year old with a history of schizoaffective disorder who was admitted for failure of self-care and [facility]. His functioning is poor with inconsistent activity and PO intake despite trials of Ativan, Emsam patch, IM Zyprexa, and now Haldol on 305 commitment. For first 2 months of his stay he was not taking PO meds consistently and was largely mute though this has improved dramatically following court order for ECT. He remains resistant to groups but is motivated to discuss housing options and take PO medication. He is now expressing preferences with regards to his care. He remains in need of inpatient psychiatric care and has no current housing which he will require housing with level of supervision and support to avoid regression back to lack of eating/self-care, etc as seen prior to his current admission. 05/08/21: intermittent progress, eating and showering more consistently and taking po medications but still will not engage at times and lying in bed for much of the day. Is motivated to work on housing options. Unclear if increased withdrawn behavior and his report of dreams is associated with internal preoccupation and psychotic symptoms. Behavior has otherwise been organized. Unable to assess for his tolerance of the increased Wellbutrin given his lack of engagement but does not appear to be demonstrated any negative side effects. Pl an: reviewed recent medication changes, it may be haldol was helping with daytime engagement but no clear correlation between medications and his engagement (1) Schizoaffective disorder: 05/08/21: continue current medications. Meeting tomorrow to discuss potential housing and outpatient options should he continue to show progress and stability in his ability to provide for self-care needs. 05/07/21: Increasing Wellbutrin to 150mg XL qAM. 05/06/21: increase olanzapine to 20mg qhs. Continue other medications. SW discussing with his outpatient CM potential housing options. 05/05/21: continue current medications. 05/04/21: increase olanzapine to 15 mg qhs and discontinue haldol. Continue other medications. 05/03/21: continue current medications-trazodone 100mg qhs, haldol 10 mg qam, lamictal 25 mg qd, olanzapine 10 mg qhs, wellbutrin SR 100mg qd. Goal will be to move to antipsychotic monotherapy. Will discuss plan to taper haldol with David when he is able to re-engage and state his preferences. 05/01/21: restart Wellbutrin 100 mg SR Qam with plan to titrate. stated he will be in contempt of court if doesn't complete a 4 hr parenting course as a requirement of their divorce proceeding. Letter provided with dates of hospitalization. 04/30/21: d/c hs Haldol, titrate Zyprexa 10 mg po qhs. 04/29/21: refusing ECT at this time, withdrew referral to [facility] and Dr. Mccatrhy and hospital puppy walker notified, staff updated [facility] and is now officially on the waitlist, sw to schedule meeting with CM. Refusing COPPOLA of Haldol but accepting PO. 04/28/21: Re-reviewed risks/benefits of ECT and patient states "I'd still consider it". He is requesting to resume his regular medication regimen as prefers Zyprexa even after discussion of metabolic profile given equipment operator intermodal yard side effects of Haldol. Discussed that at least for near future I'd like him to take both with the hopes he will still agree to a COPPOLA. Risks/benefits/alternatives reviewed re: Lamictal for mood stabilization. Discussion included but was not limited to slow titration to decrease risks of Huey's Yamil syndrome. Patient agrees to hold med/notify current prescriber of rash immediately. Consider Wellbutrin restart soon, has dopaminergic properties so don't want to exacerbate psychosis. 04/27/21: Patient voices he does not want ECT at this time but would like more time to think about it/discuss. Increase trazodone. Therapeutic time outside when security able/appropriate. He declines COPPOLA Haldol at this time. 04/26/21: continue haldol 10mg BID and trazodone 50mg qhs for insomnia. Awaiting ECT bed availability. 04/25/21: adding trazodone 50mg qhs for insomnia. 04/24/21: increase haldol back to 10mg BID as he continued to refuse lower dose. If he remains sedentary after tomorrow will re-start lovenox. 04/23/21: reduce to haldol 5mg qhs po after discussion with David with goal of improving adherence and folic acid, will d/c lovenox. Now on 305 commitment. 04/22/21: continue haldol and folate and lovenox. Completed 305 commitment paperwork. 04/21/21: continue haldol 10mg BID po and lovenox and folic acid. Day 1 of increased movement. 04/20/21: continue current medication of haldol 10 mg BID po, not doing IM for refusal. Awaiting response from ECT referral. If he can consistently show that he is moving and walking for three days in a row then we can stop the lovenox. 04/19/21: court testimony for 30 min in front of [facility] Judge Ruest answering questions about the patients condition, prognosis, treatment course, rationale for ECT and court order, risks/benefits of ECT. She will deliberated and the hospital puppy walker forwarded the signed court order for ECT. Dr. Schmitt, Migdalia, and Mili updated. 04/16/21: Haldol 10 mg bid with IM for refusal of PO. Medicine consult appreciated. Referral packet sent to [facility]. 04/13/21: attempt am dose of 5 mg Haldol, continue 10 hs with Ativan. Needs med clearance for ECT. Will hold Lovenox today as some improvement in activity. 04/12/21: continue with haldol and ativan. He was provided with legal paperwork regarding filing for ECT. 04/11/21: continue with haldol and ativan po or IM. Adding mouth checks if he accepts po haldol. Consulted hospitalist for pre-ECT physical exam. He refuses attempts to clip his fingernails. 04/10/21: Add folate supplement. Potassium level improving. Sent out labs for copper and ceruloplasmin. Engaged verbally with multiple staff and briefly watched movie with peers today. Started process for court-ordered ECT. 04/09/21: continue haldol and ativan po or IM. Working on process for consideration for court-ordered ECT. 04/08/21: continue haldol 10mg po or IM and ativan po or IM. Took potassium supplementation in juice yesterday will recheck labs in a few days. Agree with plan to pursue court order for ECT given non-responsiveness to other medication trials so far and his refusal to consistently take any po medication options. 04/07/21: limited PO, remains hypokalemic but overall labs stable 04/06/21: repeat labs in am, consider medicine consult (currently no acute indication for transfer), previous experience was he was less active when prescribed Zyprexa so monitor risks/benefits of Haldol. 04/05/21: attempt to replete K again, Discontinue Emsam patch, pursue court order for ECT when offices reopen after hol. Continue IM Haldol with Ativan trial for now. 04/04/21: Haldol increased to 10 mg PO or IM yesterday with no change overnight, will shift to pm. Will d/c Emsam patch after tomorrow's dose as no sustained benefit and will need to pursue court order for ECT after holiday weekend. 03/31/21: increase haldol to 5 mg po or IM and ativan 1mg po or IM. Continue Emsam patch. 03/30/21: continue haldol 2.5 mg po or IM and ativan 1mg po or IM. Continue Emsam patch. Walked three laps around the unit with encouragement today. 03/29/21: Starting haldol 2.5 mg po or IM and ativan 1mg po or IM for suspected psychosis with negativism, lack of personal care, thought blocking/negative sx and avolition. Continue Emsam patch. Discontinued modafinil. 03/28/21: continue to offer medications. Gave ativan 1mg IM x1 last night after additional episode of spitting. Repeat labwork today showing improvement in nutritional status (albumin and total protein now normal and BUN/CR wnl). 03/27/21: continue to offer medications, he continues to refuse. Continuing to explore ways to involve his extended family or other aspects of care which could incentive his engagement in care. May need to consider if a less sedating antipsychotic medication should be re-trialed. Referral for [facility] has been accepted. 03/26/21: continue current medications, refused modafinil but will try again over next few days. Continue with ativan 1mg BIDM po 03/25/21: start modafinil 50 mg qAM, will monitor carefully for any interactions with MAOI. Discontinued ativan IM for refusal of po. Reducing ativan dosing from TID po to BID po in the afternoon to avoid combining morning stimulant with morning benzo as this would be counterproductive to stimulant trial. 03/24/21: continue current medications. 03/23/21: labwork done today and reviewed no significant changes from prior labwork, still has elevated Cl. Continue with lovenox, emsam patch, and ativan 1 mg po TID (with BID IM for refusal) 03/22/21: labs in am and resume Lovenox given regression past 3 days. 03/18/21: unable to care for self outside of hospital, continue Emsam patch, w ill not increase as I do not believe he can follow appropriate dietary restrictions at higher doses. 03/17/21: Ativan 1 mg PO TID (inject up to BID for refusal). 03/16/21: resume IM Ativan for refusal of PO Ativan. 03/15/21: Continue current medications. Making referral to [facility] given slow progression and he is still very far from his baseline which will require extended treatment and thus he will be best served by a longer term treatment approach. 03/14/21: Continue with current medications. Reviewed labwork, K+ improved but still signs of poor nutrition. Elevated ALT could be side effect from Emsam patch (occurs in <1/100 - 05/999 pts), will continue to monitor. may be able to consider transition to a po medication if he remains consistent with accepting po medications but for now Emsam patch benefit is felt to outweigh risk of slight ALT elevation. 03/13/21: Continue with current medications. Supports from [facility] will visit tomorrow. Labwork CMP tomorrow morning to ensure correction of hypokalemia. 03/12/21: Continue with current medications. Discussed with treatment team having his [facility] supports come for a visit and they will visit on . Bruce slaughterwed his interactions with staff during evening hours/overnight in the chart and continues to show progress with engagement. 03/11/21: Continue with ativan 1 mg BID po, canceled IM as he is agreeing to voluntary po. Given steady improvement over the last 1 week consistent with expected timeline for symptom improvement from Emsam patch he may no longer need longer term care option if improvement persists at this rate. If progress stalls or regression occurs then will reconsider if longer term option for treatment is required. 03/10/21: Reduce ativan to 1 mg BID due to dizziness, low BP and possible fall yesterday. Will discontinue lovenox per his request and since he is now consistently moving around throughout the day and at night, discussed risk of blood clots if he doesn't continue to move around and ambulate frequently which he vocalized understanding of and agreement with. Given improvement in nutritional intake will hold off on rechecking labwork for now, will get repeat labs in 1 week on 03/14. 03/09/21: Reviewed interim progress. Continue Emsam patch and ativan 2mg BID trial-will monitor for excessive sedation. 03/08/21: Ativan 2 mg BID trial. 03/07/21: patient seen by neurology, appreciate input, seems severe vegetative symptoms due to depression though last few doses of Ativan have been more effective than previous. Continue Ativan 1 mg po BID (IM for refusal). Attempt to replete K with powder dissolved in juice. 03/04/21: will explore personal [place] [facility] as concerns he will not improve to point he can make meals/meet requirements to return to [facility] during this stay. 03/03/21--continue same. Cannot attempt coadmin with stimulant trial for hypersomnia as contraindicated with MAOI. No medical decompensation that would necessitate referral to medical or seeking court order for ECT. At minimum behaviors are challenging but more appropriate when willing to interact with staff. Need to consider longer term care options given slow progression. 03/02/21--interim care reviewed. Continue EMSAM and Lovenox injection. 03/01/21--Day 9 of Emsam patch. Continuing with behavioral plan to encourage behavioral activation-he was provided with plan with goals of having him come out of his room to eat meals, cooperate with repositioning, stand up when his sheets are changed/or if he prefers to stay in bed until the evening then clean sheets can be provided for him to put on the bed or request help putting on the bed in the evening, and continue independently voiding in his bedside urinal, shower can be started for him but he should be encouraged to get into the shower on his own, encourage him to address basic hygiene by continuing to provide him with easy access to his toothbrush, shampoo, etc. 02/28/21--Day 8 of Emsam patch. Now seeing new pattern of daily food intake which is encouraging. Continues to present with regressed behaviors and refusal to interact during the day. 02/27/21--Continue with Emsam patch. Getting out of bed more in the evenings and eating more. Lack of engagement during the day was volitional-pulling blanket over his head after he saw me enter his room. Also becoming more irritable with staff when he is encouraged to do more on his own for behavioral activation. 02/26/21-Continue with Emsam patch. 304 status granted. Ate last night and interacted with staff but no engagement today. 02/25/21--Continues to demonstrate severe depression with neurovegetative symptoms with no engagement with staff. Behavioral plan challenged by finding a reward/incentive that he enjoys. Continuing to encourage behavioral activation. Petitioned for 304 status with hearing scheduled for tomorrow given ongoing symptom burden and need for ongoing treatment. Remains on lovenox for DVT prophylaxis. Continue with Emsam patch. 02/24/21--Remains isolative and will not engage verbally. Encouragingly is attending slightly more to some of his ADLs, will continue with behavioral plan in hopes to continue encouraging behavioral activation although food does not seem to be a good motivator/reward for him. Will continue to think about other possible motivators for him to help encourage increased activity, po intake and engagement with therapeutic milieu. No signs of HTN or other side effects from MAOI at this point. 02/23/21--Continues to demonstrate neurovegetative symptoms of depression, remaining in bed most of the day but sometimes more engagement in the evenings. Will implement behavioral plan to encourage behavioral activation to treat neurovegetative symptoms in conjunction with Emsam as well as to encourage increased participation with ADLs. Nursing to provide him with tools to help him eat and promote good hygiene (brining in meals, supplies to wash up) and then if he does this independently will bring in ice cream or chips as reward to see if this helps with activation and increased po intake. 02/22/21--neurologic work up with EEG and brain MRI unremarkable, continue Emsam trial. 02/21/21--complex differential--depression with psychotic features in a patient with bipolar disorder most likely, certainly not typcial catatonia. No hx of hyperphagia or hypersexuality known that would suggest Kleine-Hess syndrome. Will proceed with Emsam patch 6 mg trial as only means to administer antidepressant. Will check with an ECT facility to determine if can treat patient if pursue a court order (will await emsam trial first). MRI brain (patient will need various x rays first as can't answer screening questions, no hx of pacemaker on chart). bedside EEG to rule out status epilepticus. 02/19/21--non-formulary request for Emsam patch. Hasn't taken antidepressants for at least 6 weeks. Would reconsider current med doses when this becomes available. without antidepressant he will continue to decompensate medically and is at significant risk of further decompensation. 02/17/21--lytes, Bun/Cr improved; given sleep phase shift desirable to shift antipsychotic to pm meal with IM Zyprexa for refusal. Bedside EEG likely poor quality/low yeild but consider if no improvement. 02/16/21--Reviewed care by Dr. Garces in italics. will d/c IM Ativan in favor of Zyprexa IM for failure to take Latuda. Does take Lorazepam prn PO, adjust dose and frequency and monitor use. Will repeat labs and PO intake so variable and hard to track. 02/09/2021--admitted to [facility]. Ativan 2mg SL TID ordered. Track Is&Os. Vitals BID. 02/10/2021--continue with ativan 2mg TID SL. Showing significant improving in catatonic symptoms since ativan trial last night. If he continues to walk around no need for DVT prophylaxis. Will consider if 302 needs to be converted to 303 based on progress today. 02/11/2021--continue with scheduled ativan. Less engagement today but still eating and drinking. Plan for likely 303 given his inability/reluctance to engage in treatment. Reviewed outside records. 02/12/2021--continues to refuse ativan today and won't engage with anyone nor leave his bed except to use the bathroom and to eat at night. Given some movement in the evening and to the bathroom he doesn't require DVT prophylaxis at this time but this remains a concern should he clinically worsen and will continue to monitor his nutritional and medical status closely. 02/13/2021--placed on 303 status due to ongoing decompensation due to catatonia including refusal of medication, not eating, not drinking, not communicating with anyone and lying in bed all day. Once catatonia begins to improve with treatment will aim to start latuda which helped previously. [place] to require medications over objection for ativan to treat catatonia. If catatonia does not respond quickly to ativan then will consider if DVT prophylaxis should be initiated. 02/14/2021--no significant change in behaviors with additional of scheduled ativan 2 mg BID as medication over objection. Given concern for skin breakdown consult was placed for wound nurse. Given concern for possible DVT and after discussion with hospitalist will begin lovenox 40mg subQ daily. David was able to vocalize consent for this as he remains mute and unable/unwilling to engage but explained the risks, benefits, alternatives and rationale for lovenox and that we will be offering this to him. 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 02/15/2021--Have ruled out catatonia given inconsistent response to ativan trial, multiple observed examples of volitional movement immediately following periods of patient lying in bed and mute. Subsequent catatonia scales have been negative and patient feels that his symptoms represent withdrawn features of anxiety and depression. Given bipolar depression with neurovegetative features will start latuda. Encouragingly he is eating more and drinking more and got out of bed twice last night. Risk Factors Assessment Male: Yes : Yes Do You Have Access To A Gun?: No (in supportive living enviornment, pt unable to answer ) Mental Health Diagnoses: Yes Previous Psychiatric Hospitalization: Yes Protective Factors Assessment Employed: No Interval History Identifying Information 40 yo man with history of catatonia, depression, schizoaffective disorder admitted due to concern for decompensation with failure of self-care at [facility]. Admitted on 302, now 305. Chief Complaint mute Review of Systems Sleep Information Total Hours of Sleep: 8 Sleep Comments: pt given trazodone per rn. pt on q-15 minute checks Meal Information Percent Meal Consumed - Breakfast: 100 Percent Meal Consumed - Lunch: 100 Percent Meal Consumed - Dinner: 100 Nutrition Comment: pt. OOB & had juice and 2 bowls of cereal Subjective Subjective Patient was seen & assessed and interval progress reviewed with treatment team nursing and social work. Remains isolative to his room. Has not showered in multiple days. Today is mute on my attempts to meet with him, he's lying in bed under the blankets and won't respond to verbal prompts to engage. Physical Exam Psychiatric Orientation: alert; + uncooperative Apperance: + disheveled Eye Contact: + poor eye contact Motor Behavior: + psychomotor retardation Speech: + mute Cognition: + attention not intact Estimated Intelligence: consistent with education level Insight: + severely impaired insight Judgement: + severely impaired judgement Vital Signs (Past 24 Hours) Last Vital Signs Temp 36.8 C 05/08/21 06:32 Pulse 0 L 05/08/21 06:32 Resp 16 05/08/21 06:32 BP 125/78 05/08/21 06:32 Pulse Ox 94 04/03/21 20:37 Results & Data ([facility]) Current Inpatient Medications Current Inpatient Medications: Current Inpatient Medications Acetaminophen (Acetaminophen 325 Mg Tab) 650 mg PO Q4H PRN PRN Reason: Headache or Minor Fever Stop: 06/11/21 10:27 Last Admin: 03/16/21 10:34 Dose: 325 mg Documented by: Al Hydrox/Mg Hydrox/Simethicone (Aluminum/Magnesium Susp 30 Ml Udc) 30 ml PO Q4H PRN PRN Reason: GI Upset Stop: 06/11/21 10:27 Benztropine Mesylate (Benztropine Mesylate 1 Mg Tab) 1 mg PO Q6 PRN PRN Reason: Muscle Spasm Stop: 06/11/21 08:40 Bismuth Subsalicylate (Bismuth Subsalicylate Liqd 236 Ml) 15 ml PO PRN PRN PRN Reason: Loose Stool Stop: 06/11/21 02:27 Bupropion HCl (Bupropion Xl 150 Mg Tabcr) 150 mg PO QAM OG Stop: 06/07/21 08:59 Folic Acid (Folic Acid 1 Mg Tab) 1 mg PO HS OG Stop: 06/11/21 21:59 Last Admin: 05/07/21 21:03 Dose: 1 mg Documented by: Lamotrigine (Lamotrigine 25 Mg Tab) 25 mg PO QAM OG Stop: 05/29/21 08:59 Last Admin: 05/07/21 09:17 Dose: 25 mg Documented by: Lorazepam (Lorazepam 1 Mg Tab) 1 mg PO Q6 PRN PRN Reason: Anxiety/Agitation Stop: 06/11/21 08:14 Last Admin: 04/04/21 20:52 Dose: 1 mg Documented by: Magnesium Hydroxide (Magnesium Hydroxide Susp 30 Ml Udc) 30 ml PO DAILY PRN PRN Reason: Constipation Stop: 06/11/21 10:27 Olanzapine (Olanzapine 20 Mg Tablet) 20 mg PO [facility] Stop: 06/05/21 21:59 Last Admin: 05/07/21 21:03 Dose: 20 mg Documented by: Sodium Chloride (Sodium Chloride 0.65% Na Soln 45 Ml ([place])) 1 - 2 sprays NA PRN PRN PRN Reason: Nasal Dryness/Congestion Stop: 06/11/21 10:27 Trazodone HCl (Trazodone Hcl 100 Mg Tab) 100 mg PO [facility] Stop: 05/27/21 21:59 Last Admin: 05/07/21 21:03 Dose: 100 mg Documented by: Mental Health & Subst Abuse Tx Psychiatrist Name of Psychiatrist: Oniel Negron Psychiatrist's Date of Appointment with Psychiatrist: 03/13/21 Time of Appointment with Psychiatrist: 9:20am Psychiatric Appointment Comment: Zoom *is on waiting list for appt. sooner Therapist Name of Therapist: Unknown Butting Saw Operator Name of Butting Saw Operator: Mauri MATTHEWS) Post Discharge Appointments Primary Care Physician Name Of Family Doctor: Unknown
[2021-05-08] MEDS: buPROPion XL 150 MG TABCR PO SCH (09:18)
[2021-05-08] MEDS: lamoTRIgine 25 MG TAB PO SCH (09:18)
[2021-05-08] MEDS: traZODone HCL 100 MG TAB PO SCH (20:42)
[2021-05-08] MEDS: OLANZapine 20 MG TABLET PO SCH (20:42)
[2021-05-08] MEDS: FOLIC ACID 1 MG TAB PO SCH (20:42)
[2021-05-09] MEDS: lamoTRIgine 25 MG TAB PO SCH (09:30)
[2021-05-09] MEDS: buPROPion XL 150 MG TABCR PO SCH (09:30)
--- NOTE | 2021-05-09 12:47 | Psychiatric Progress Note ---
Date of Service May 09, 2021 Impression / Recommendations Impression The patient is a 40 year old with a history of schizoaffective disorder who was admitted for failure of self-care and worsening decompensation at longterm. His functioning is poor with inconsistent activity and PO intake despite trials of Ativan, Emsam patch, IM Zyprexa, and now Haldol on 305 commitment. For first 2 months of his stay he was not taking PO meds consistently and was largely mute though this has improved dramatically following court order for ECT. He remains resistant to groups but is motivated to discuss housing options and take PO medication. He is now expressing preferences with regards to his care. He remains in need of inpatient psychiatric care and has no current housing which he will require housing with level of supervision and support to avoid regression back to lack of eating/self-care, etc as seen prior to his current admission. 05/09/21: intermittent progress, eating more consistently and taking po medications but still will not engage at times and lying in bed for much of the day and refusing to shower. Is motivated to work on housing options. Unclear if increased withdrawn behavior and his report of dreams is associated with internal preoccupation and psychotic symptoms. Behavior has otherwise been organized. Tolerating the increased Wellbutrin. Plan: participated in meeting with David and his outpatient casey saw operator to discuss potential housing options/diversion options though state hospital referral remains in place (1) Schizoaffective disorder: 05/09/21: continue current medications. Next diversion mtg will be 05/15/20 at 1:30pm. 05/08/21: continue current medications. Meeting tomorrow to discuss potential housing and outpatient options should he continue to show progress and stability in his ability to provide for self-care needs. 05/07/21: Increasing Wellbutrin to 150mg XL qAM. 05/06/21: increase olanzapine to 20mg qhs. Continue other medications. SW discussing with his outpatient CM potential housing options. 05/05/21: continue current medications. 05/04/21: increase olanzapine to 15 mg qhs and discontinue haldol. Continue other medications. 05/03/21: continue current medications-trazodone 100mg qhs, haldol 10 mg qam, lamictal 25 mg qd, olanzapine 10 mg qhs, wellbutrin SR 100mg qd. Goal will be to move to antipsychotic monotherapy. Will discuss plan to taper haldol with David when he is able to re-engage and state his preferences. 05/01/21: restart Wellbutrin 100 mg SR Qam with plan to titrate. stated he will be in contempt of court if doesn't complete a 4 hr parenting course as a requirement of their divorce proceeding. Letter provided with dates of hospitalization. 04/30/21: d/c hs Haldol, titrate Zyprexa 10 mg po qhs. 04/29/21: refusing ECT at this time, withdrew referral to [facility] and Dr. Mccarthy and hospital sole edge inker machine notified, staff updated [facility] and is now officially on the waitlist, sw to schedule meeting with CM. Refusing COPPOLA of Haldol but accepting PO. 04/28/21: Re-reviewed risks/benefits of ECT and patient states "I'd still consider it". He is requesting to resume his regular medication regimen as prefers Zyprexa even after discussion of metabolic profile given snf side effects of Haldol. Discussed that at least for near future I'd like him to take both with the hopes he will still agree to a COPPOLA. Risks/benefits/alternatives reviewed re: Lamictal for mood stabilization. Discussion included but was not limited to slow titration to decrease risks of Huey's Yamil syndrome. Patient agrees to hold med/notify current prescriber of rash immediately. Consider Wellbutrin restart soon, has dopaminergic properties so don't want to exacerbate psychosis. 04/27/21: Patient voices he does not want ECT at this time but would like more time to think about it/discuss. Increase trazodone. Therapeutic time outside when security able/appropriate. He declines COPPOLA Haldol at this time. 04/26/21: continue haldol 10mg BID and trazodone 50mg qhs for insomnia. Awaiting ECT bed availability. 04/25/21: adding trazodone 50mg qhs for insomnia. 04/24/21: increase haldol back to 10mg BID as he continued to refuse lower dose. If he remains sedentary after tomorrow will re-start lovenox. 04/23/21: reduce to haldol 5mg qhs po after discussion with David with goal of improving adherence and folic acid, will d/c lovenox. Now on 305 commitment. 04/22/21: continue haldol and folate and lovenox. Completed 305 commitment paperwork. 04/21/21: continue haldol 10mg BID po and lovenox and folic acid. Day 1 of increased movement. 04/20/21: continue current medication of haldol 10 mg BID po, not doing IM for refusal. Awaiting response from ECT referral. If he can consistently show that he is moving and walking for three days in a row then we can stop the lovenox. 04/19/21: court testimony for 30 min in front of [facility] Judge Ruest answering questions about the patients condition, prognosis, treatment course, rationale for ECT and court order, risks/benefits of ECT. She will deliberated and the hospital sole edge inker machine forwarded the signed court order for ECT. Dr. Schmitt, Migdalia, and Mili updated. 04/16/21: Haldol 10 mg bid with IM for refusal of PO. Medicine consult appreciated. Referral packet sent to [facility]. 04/13/21: attempt am dose of 5 mg Haldol, continue 10 hs with Ativan. Needs med clearance for ECT. Will hold Lovenox today as some improvement in activity. 04/12/21: continue with haldol and ativan. He was provided with legal paperwork regarding filing for ECT. 04/11/21: continue with haldol and ativan po or IM. Adding mouth checks if he accepts po haldol. Consulted hospitalist for pre-ECT physical exam. He refuses attempts to clip his fingernails. 04/10/21: Add folate supplement. Potassium level improving. Sent out labs for copper and ceruloplasmin. Engaged verbally with multiple staff and briefly watched movie with peers today. Started process for court-ordered ECT. 04/09/21: continue haldol and ativan po or IM. Working on process for consideration for court-ordered ECT. 04/08/21: continue haldol 10mg po or IM and ativan po or IM. Took potassium supplementation in juice yesterday will recheck labs in a few days. Agree with plan to pursue court order for ECT given non-responsiveness to other medication trials so far and his refusal to consistently take any po medication options. 04/07/21: limited PO, remains hypokalemic but overall labs stable 04/06/21: repeat labs in am, consider medicine consult (currently no acute indication for transfer), previous experience was he was less active when prescribed Zyprexa so monitor risks/benefits of Haldol. 04/05/21: attempt to replete K again, Discontinue Emsam patch, pursue court order for ECT when offices reopen after hol. Continue IM Haldol with Ativan trial for now. 04/04/21: Haldol increased to 10 mg PO or IM yesterday with no change overnight, will shift to pm. Will d/c Emsam patch after tomorrow's dose as no sustained benefit and will need to pursue court order for ECT after holiday weekend. 03/31/21: increase haldol to 5 mg po or IM and ativan 1mg po or IM. Continue Emsam patch. 03/30/21: continue haldol 2.5 mg po or IM and ativan 1mg po or IM. Continue Emsam patch. Walked three laps around the unit with encouragement today. 03/29/21: Starting haldol 2.5 mg po or IM and ativan 1mg po or IM for suspected psychosis with negativism, lack of personal care, thought blocking/negative sx and avolition. Continue Emsam patch. Discontinued modafinil. 03/28/21: continue to offer medications. Gave ativan 1mg IM x1 last night after additional episode of spitting. Repeat labwork today showing improvement in nutritional status (albumin and total protein now normal and BUN/CR wnl). 03/27/21: continue to offer medications, he continues to refuse. Continuing to explore ways to involve his extended family or other aspects of care which could incentive his engagement in care. May need to consider if a less sedating antipsychotic medication should be re-trialed. Referral for [facility] has been accepted. 03/26/21: continue current medications, refused modafinil but will try again over next few days. Continue with ativan 1mg BIDM po 03/25/21: start modafinil 50 mg qAM, will monitor carefully for any interactions with MAOI. Discontinued ativan IM for refusal of po. Reducing ativan dosing from TID po to BID po in the afternoon to avoid combining morning stimulant with morning benzo as this would be counterproductive to stimulant trial. 03/24/21: continue current medications. 03/23/21: labwork done today and reviewed no significant changes from prior labwork, still has elevated Cl. Continue with lovenox, emsam patch, and ativan 1 mg po TID (with BID IM for refusal) 03/22/21: labs in am and resume Lovenox given regression past 3 days. 03/18/21: unable to care for self outside of hospital, continue Emsam patch, will not increase as I do not believe he can follow appropriate dietary restrictions at higher doses. 03/17/21: Ativan 1 mg PO TID (inject up to BID for refusal). 03/16/21: resume IM Ativan for refusal of PO Ativan. 03/15/21: Continue current medications. Making referral to [facility] given slow progression and he is still very far from his baseline which will require extended treatment and thus he will be best served by a longer term treatment approach. 03/14/21: Continue with current medications. Reviewed labwork, K+ improved but still signs of poor nutrition. Elevated ALT could be side effect from Emsam patch (occurs in <1/100 - 05/999 pts), will continue to monitor. may be able to consider transition to a po medication if he remains consistent with accepting po medications but for now Emsam patch benefit is felt to outweigh risk of slight ALT elevation. 03/13/21: Continue with current medications. Supports from [facility] will visit tomorrow. Labwork CMP tomorrow morning to ensure correction of hypokalemia. 03/12/21: Continue with current medications. Discussed with treatment team having his longterm supports come for a visit and they will visit on . Reviewed his interactions with staff during evening hours/overnight in the chart and continues to show progress with engagement. 03/11/21: Continue with ativan 1 mg BID po, canceled IM as he is agreeing to voluntary po. Given steady improvement over the last 1 week consistent with expected timeline for symptom improvement from Emsam patch he may no longer need longer term care option if improvement persists at this rate. If progress stalls or regression occurs then will reconsider if longer term option for treatment is required. 03/10/21: Reduce ativan to 1 mg BID due to dizziness, low BP and possible fall yesterday. Will discontinue lovenox per his request and since he is now consistently moving around throughout the day and at night, discussed risk of blood clots if he doesn't continue to move around and ambulate frequently which he vocalized understanding of and agreement with. Given improvement in nutritional intake will hold off on rechecking labwork for now, will get repeat labs in 1 week on 03/14. 03/09/21: Reviewed interim progress. Continue Emsam patch and ativan 2mg BID trial-will monitor for excessive sedation. 03/08/21: Ativan 2 mg BID trial. 03/07/21: patient seen by neurology, appreciate input, seems severe vegetative symptoms due to depression though last few doses of Ativan have been more effective than previous. Continue Ativan 1 mg po BID (IM for refusal). Attempt to replete K with powder dissolved in juice. 03/04/21: will explore personal correction as concerns he will not improve to point he can make meals/meet requirements to return to [facility] during this stay. 03/03/21--continue same. Cannot attempt coadmin with stimulant trial for hypersomnia as contraindicated with MAOI. No medical decompensation that would necessitate referral to medical or seeking court order for ECT. At minimum behaviors are challenging but more appropriate when willing to interact with staff. Need to consider longer term care options given slow progression. 03/02/21--interim care reviewed. Continue EMSAM and Lovenox injection. 03/01/21--Day 9 of Emsam patch. Continuing with behavioral plan to encourage behavioral activation-he was provided with plan with goals of having him come out of his room to eat meals, cooperate with repositioning, stand up when his sheets are changed/or if he prefers to stay in bed until the evening then clean sheets can be provided for him to put on the bed or request help putting on the bed in the evening, and continue independently voiding in his bedside urinal, shower can be started for him but he should be encouraged to get into the shower on his own, encourage him to address basic hygiene by continuing to provide him with easy access to his toothbrush, shampoo, etc. 02/28/21--Day 8 of Emsam patch. Now seeing new pattern of daily food intake which is encouraging. Continues to present with regressed behaviors and refusal to interact during the day. 02/27/21--Continue with Emsam patch. Getting out of bed more in the evenings and eating more. Lack of engagement during the day was volitional-pulling blanket over his head after he saw me enter his room. Also becoming more irritable with staff when he is encouraged to do more on his own for behavioral activation. 02/26/21-Continue with Emsam patch. 304 status granted. Ate last night and interacted with staff but no engagement today. 02/25/21--Continues to demonstrate severe depression with neurovegetative symptoms with no engagement with staff. Behavioral plan challenged by finding a reward/incentive that he enjoys. Continuing to encourage behavioral activation. Petitioned for 304 status with hearing scheduled for tomorrow given ongoing symptom burden and need for ongoing treatment. Remains on lovenox for DVT prophylaxis. Continue with Emsam patch. 02/24/21--Remains isolative and will not engage verbally. Encouragingly is attending slightly more to some of his ADLs, will continue with behavioral plan in hopes to continue encouraging behavioral activation although food does not seem to be a good motivator/reward for him. Will continue to think about other possible motivators for him to help encourage increased activity, po intake and engagement with therapeutic milieu. No signs of HTN or other side effects from MAOI at this point. 02/23/21--Continues to demonstrate neurovegetative symptoms of depression, remaining in bed most of the day but sometimes more engagement in the evenings. Will implement behavioral plan to encourage behavioral activation to treat neurovegetative symptoms in conjunction with Emsam as well as to encourage i ncreased participation with ADLs. Nursing to provide him with tools to help him eat and promote good hygiene (brining in meals, supplies to wash up) and then if he does this independently will bring in ice cream or chips as reward to see if this helps with activation and increased po intake. 02/22/21--neurologic work up with EEG and brain MRI unremarkable, continue Emsam trial. 02/21/21--complex differential--depression with psychotic features in a patient with bipolar disorder most likely, certainly not typcial catatonia. No hx of hyperphagia or hypersexuality known that would suggest Kleine-Hess syndrome. Will proceed with Emsam patch 6 mg trial as only means to administer antidepressant. Will check with an ECT facility to determine if can treat patient if pursue a court order (will await emsam trial first). MRI brain (patient will need various x rays first as can't answer screening questions, no hx of pacemaker on chart). bedside EEG to rule out status epilepticus. 02/19/21--non-formulary request for Emsam patch. Hasn't taken antidepressants for at least 6 weeks. Would reconsider current med doses when this becomes available. without antidepressant he will continue to decompensate medically and is at significant risk of further decompensation. 02/17/21--lytes, Bun/Cr improved; given sleep phase shift desirable to shift antipsychotic to pm meal with IM Zyprexa for refusal. Bedside EEG likely poor quality/low yeild but consider if no improvement. 02/16/21--Reviewed care by Dr. Garces in italics. will d/c IM Ativan in favor of Zyprexa IM for failure to take Latuda. Does take Lorazepam prn PO, adjust dose and frequency and monitor use. Will repeat labs and PO intake so variable and hard to track. 02/09/2021--admitted to U. Ativan 2mg SL TID ordered. Track Is&Os. Vitals BID. 02/10/2021--continue with ativan 2mg TID SL. Showing significant improving in catatonic symptoms since ativan trial last night. If he continues to walk around no need for DVT prophylaxis. Will consider if 302 needs to be converted to 303 based on progress today. 02/11/2021--continue with scheduled ativan. Less engagement today but still eating and drinking. Plan for likely 303 given his inability/reluctance to engage in treatment. Reviewed outside records. 02/12/2021--continues to refuse ativan today and won't engage with anyone nor leave his bed except to use the bathroom and to eat at night. Given some movement in the evening and to the bathroom he doesn't require DVT prophylaxis at this time but this remains a concern should he clinically worsen and will continue to monitor his nutritional and medical status closely. 02/13/2021--placed on 303 status due to ongoing decompensation due to catatonia including refusal of medication, not eating, not drinking, not communicating with anyone and lying in bed all day. Once catatonia begins to improve with treatment will aim to start latuda which helped previously. [place] to require medications over objection for ativan to treat catatonia. If catatonia does not respond quickly to ativan then will consider if DVT prophylaxis should be initiated. 02/14/2021--no significant change in behaviors with additional of scheduled ativan 2 mg BID as medication over objection. Given concern for skin breakdown consult was placed for wound nurse. Given concern for possible DVT and after discussion with hospitalist will begin lovenox 40mg subQ daily. David was able to vocalize consent for this as he remains mute and unable/unwilling to engage but explained the risks, benefits, alternatives and rationale for lovenox and that we will be offering this to him. 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 02/15/2021--Have ruled out catatonia given inconsistent response to ativan trial, multiple observed examples of volitional movement immediately following periods of patient lying in bed and mute. Subsequent catatonia scales have been negative and patient feels that his symptoms represent withdrawn features of anxiety and depression. Given bipolar depression with neurovegetative features will start latuda. Encouragingly he is eating more and drinking more and got out of bed twice last night. Risk Factors Assessment Male: Yes : Yes Do You Have Access To A Gun?: No (in supportive living enviornment, pt unable to answer ) Mental Health Diagnoses: Yes Previous Psychiatric Hospitalization: Yes Protective Factors Assessment Employed: No Interval History Identifying Information 40 yo man with history of catatonia, depression, schizoaffective disorder admitted due to concern for decompensation with failure of self-care at [facility]. Admitted on 302, now 305. Chief Complaint "I am willing to consider that". Review of Systems Sleep Information Total Hours of Sleep: 8 Sleep Comments: pt given trazodone per rn. pt on q-15 minute checks Meal Information Percent Meal Consumed - Breakfast: 0 Percent Meal Consumed - Lunch: 100 Percent Meal Consumed - Dinner: 0 Nutrition Comment: pt. OOB & had juice and 2 bowls of cereal Subjective Subjective Patient was seen & assessed and interval progress reviewed with treatment team nursing and social work. David remains isolative to his room with the exception of coming out to eat meals. He did participate briefly in a meeting with his outpatient casey saw operator to discuss housing options. He states he recognizes he will need help keeping up "habits" like bathing and eating but also states he needs to be around few people because this negatively impacts him "psychologically". He states "I hope the medication will keep helping". Physical Exam Psychiatric Orientation: alert and oriented x 3 Apperance: + disheveled Eye Contact: + fair eye contact Motor Behavior: steady gait and station and no abnormal motor movements; n EPS Speech: normal rate/rhythm/volume of speech Affect: + constricted affect Mood: + depressed mood Thought Process: goal directed thought process Thought Content: + paranoid and reality based without delusions Suicidal Thoughts: denies suicidal thoughts Homicidal Thoughts: denies homicidal thoughts Hallucinations: no auditory hallucinations and no visual hallucinations Cognition: recent memory grossly intact, remote memory grossly intact, attention grossly intact and language grossly intact Insight: + impaired insight Judgement: + impaired judgement Vital Signs (Past 24 Hours) Last Vital Signs Temp 37.6 C H 05/08/21 20:39 Pulse 76 05/09/21 06:36 Resp 16 05/09/21 06:36 BP 93/66 L 05/09/21 06:36 Pulse Ox 94 04/03/21 20:37 Results & Data ([facility]) Current Inpatient Medications Current Inpatient Medications: Current Inpatient Medications Acetaminophen (Acetaminophen 325 Mg Tab) 650 mg PO Q4H PRN PRN Reason: Headache or Minor Fever Stop: 06/11/21 10:27 Last Admin: 03/16/21 10:34 Dose: 325 mg Documented by: Al Hydrox/Mg Hydrox/Simethicone (Aluminum/Magnesium Susp 30 Ml Udc) 30 ml PO Q4H PRN PRN Reason: GI Upset Stop: 06/11/21 10:27 Benztropine Mesylate (Benztropine Mesylate 1 Mg Tab) 1 mg PO Q6 PRN PRN Reason: Muscle Spasm Stop: 06/11/21 08:40 Bismuth Subsalicylate (Bismuth Subsalicylate Liqd 236 Ml) 15 ml PO PRN PRN PRN Reason: Loose Stool Stop: 06/11/21 02:27 Bupropion HCl (Bupropion Xl 150 Mg Tabcr) [facility] Stop: 06/07/21 08:59 Last Admin: 05/09/21 09:30 Dose: 150 mg Documented by: Folic Acid (Folic Acid 1 Mg Tab) 1 mg PO [facility] Stop: 06/11/21 21:59 Last Admin: 05/08/21 20:42 Dose: 1 mg Documented by: Lamotrigine (Lamotrigine 25 Mg Tab) [facility] Stop: 05/29/21 08:59 Last Admin: 05/09/21 09:30 Dose: 25 mg Documented by: Lorazepam (Lorazepam 1 Mg Tab) 1 mg PO Q6 PRN PRN Reason: Anxiety/Agitation Stop: 06/11/21 08:14 Last Admin: 04/04/21 20:52 Dose: 1 mg Documented by: Magnesium Hydroxide (Magnesium Hydroxide Susp 30 Ml Udc) 30 ml PO DAILY PRN PRN Reason: Constipation Stop: 06/11/21 10:27 Olanzapine (Olanzapine 20 Mg Tablet) 20 mg PO [facility] Stop: 06/05/21 21:59 Last Admin: 05/08/21 20:42 Dose: 20 mg Documented by: Sodium Chloride (Sodium Chloride 0.65% Na Soln 45 Ml ([place])) 1 - 2 sprays NA PRN PRN PRN Reason: Nasal Dryness/Congestion Stop: 06/11/21 10:27 Trazodone HCl (Trazodone Hcl 100 Mg Tab) 100 mg PO [facility] Stop: 05/27/21 21:59 Last Admin: 05/08/21 20:42 Dose: 100 mg Documented by: Mental Health & Subst Abuse Tx Psychiatrist Name of Psychiatrist: Oniel Negron Psychiatrist's Date of Appointment with Psychiatrist: 03/13/21 Time of Appointment with Psychiatrist: 9:20am Psychiatric Appointment Comment: Zoom *is on waiting list for appt. sooner Therapist Name of Therapist: Unknown Master Chef Name of Master Chef: Mauri (DIRKU) Post Discharge Appointments Primary Care Physician Name Of Family Doctor: Unknown
[2021-05-09] MEDS: FOLIC ACID 1 MG TAB PO SCH (22:04)
[2021-05-09] MEDS: traZODone HCL 100 MG TAB PO SCH (22:04)
[2021-05-09] MEDS: OLANZapine 20 MG TABLET PO SCH (22:04)
[2021-05-10] MEDS: buPROPion XL 150 MG TABCR PO SCH (09:32)
[2021-05-10] MEDS: lamoTRIgine 25 MG TAB PO SCH (09:32)
--- NOTE | 2021-05-10 14:38 | Psychiatric Progress Note ---
Date of Service May 10, 2021 Impression / Recommendations Impression The patient is a 40 year old with a history of schizoaffective disorder who was [facility] of [facility] His functioning is poor with inconsistent activity and PO intake despite trials of Ativan, Emsam patch, IM Zyprexa, and now Haldol on 305 commitment. For first 2 months of his stay he was not taking PO meds consistently and was largely mute though this has improved dramatically following court order for ECT. He remains resistant to groups but is motivated to discuss housing options and take PO medication. He is now expressing preferences with regards to his care. He remains in need of inpatient psychiatric care and has no current housing which he will require housing with level of supervision and support to avoid regression back to lack of eating/self-care, etc as seen prior to his current admission. 05/10/21: intermittent progress, currently regressed Plan: reinstate MNPR as cannot assess appropriateness. (1) Schizoaffective disorder: Risk Factors Assessment Male: Yes : Yes Do You Have Access To A Gun?: No (in supportive living enviornment, pt unable to answer ) Mental Health Diagnoses: Yes Previous Psychiatric Hospitalization: Yes Protective Factors Assessment Employed: No Interval History Identifying Information 40 yo man with history of catatonia, depression, schizoaffective disorder admitted due to concern for decompensation with failure of self-care at [facility]. Admitted on 302, now 305. Chief Complaint will not uncover his head or interact with me Review of Systems Sleep Information Total Hours of Sleep: 6.5 Sleep Comments: pt given trazodone per rn. pt on q-15 minute checks Meal Information Percent Meal Consumed - Breakfast: 0 Percent Meal Consumed - Lunch: 100 Percent Meal Consumed - Dinner: 100 Subjective Subjective Patient was seen & assessed and interval progress reviewed with treatment team. 90 day treatment review completed. Patient did participate in diversion meeting and continues to come out for meals but isn't as motivated to go outside. Physical Exam Psychiatric uncooperative, mute Vital Signs (Past 24 Hours) Last Vital Signs Temp 36.7 C 05/09/21 23:34 Pulse 76 05/09/21 06:36 Resp 16 05/09/21 06:36 BP 93/66 L 05/09/21 06:36 Pulse Ox 94 04/03/21 20:37 Results & Data ([facility]) Current Inpatient Medications Current Inpatient Medications: Current Inpatient Medications Acetaminophen (Acetaminophen 325 Mg Tab) 650 mg PO Q4H PRN PRN Reason: Headache or Minor Fever Stop: 06/11/21 10:27 Last Admin: 03/16/21 10:34 Dose: 325 mg Documented by: Al Hydrox/Mg Hydrox/Simethicone (Aluminum/Magnesium Susp 30 Ml Udc) 30 ml PO Q4H PRN PRN Reason: GI Upset Stop: 06/11/21 10:27 Benztropine Mesylate (Benztropine Mesylate 1 Mg Tab) 1 mg PO Q6 PRN PRN Reason: Muscle Spasm Stop: 06/11/21 08:40 Bismuth Subsalicylate (Bismuth Subsalicylate Liqd 236 Ml) 15 ml PO PRN PRN PRN Reason: Loose Stool Stop: 06/11/21 02:27 Bupropion HCl (Bupropion Xl 150 Mg Tabcr) 150 mg PO [facility] Stop: 06/07/21 08:59 Last Admin: 05/10/21 09:32 Dose: 150 mg Documented by: Folic Acid (Folic Acid 1 Mg Tab) 1 mg PO [facility] Stop: 06/11/21 21:59 Last Admin: 05/09/21 22:04 Dose: 1 mg Documented by: Lamotrigine (Lamotrigine 25 Mg Tab) [facility] Stop: 05/29/21 08:59 Last Admin: 05/10/21 09:32 Dose: 25 mg Documented by: Lorazepam (Lorazepam 1 Mg Tab) 1 mg PO Q6 PRN PRN Reason: Anxiety/Agitation Stop: 06/11/21 08:14 Last Admin: 04/04/21 20:52 Dose: 1 mg Documented by: Magnesium Hydroxide (Magnesium Hydroxide Susp 30 Ml Udc) 30 ml PO DAILY PRN PRN Reason: Constipation Stop: 06/11/21 10:27 Olanzapine (Olanzapine 20 Mg Tablet) 20 mg PO [facility] Stop: 06/05/21 21:59 Last Admin: 05/09/21 22:04 Dose: 20 mg Documented by: Sodium Chloride (Sodium Chloride 0.65% Na Soln 45 Ml ([place])) 1 - 2 sprays NA PRN PRN PRN Reason: Nasal Dryness/Congestion Stop: 06/11/21 10:27 Trazodone HCl (Trazodone Hcl 100 Mg Tab) 100 mg PO HS OG Stop: 05/27/21 21:59 Last Admin: 05/09/21 22:04 Dose: 100 mg Documented by: Mental Health & Subst Abuse Tx Psychiatrist Name of Psychiatrist: Oniel Negron Psychiatrist's Date of Appointment with Psychiatrist: 03/13/21 Time of Appointment with Psychiatrist: 9:20am Psychiatric Appointment Comment: Zoom *is on waiting list for appt. sooner Therapist Name of Therapist: Unknown End Worker Name of End Worker: Mauri (BSU) Post Discharge Appointments Primary Care Physician Name Of Family Doctor: Unknown
[2021-05-10] MEDS: OLANZapine 20 MG TABLET PO SCH (20:38)
[2021-05-10] MEDS: FOLIC ACID 1 MG TAB PO SCH (20:38)
[2021-05-10] MEDS: traZODone HCL 100 MG TAB PO SCH (20:38)
[2021-05-11] MEDS: lamoTRIgine 25 MG TAB PO SCH ×2 (08:53→09:03)
[2021-05-11] MEDS: buPROPion XL 150 MG TABCR PO SCH ×2 (08:53→09:03)
--- NOTE | 2021-05-11 10:50 | Psychiatric Progress Note ---
Date of Service May 11, 2021 Impression / Recommendations Impression The patient is a 40 year old with a history of schizoaffective disorder who was admitted for failure of self-care and [facility] decompensation [facility]. His functioning is poor with inconsistent activity and PO intake despite trials of Ativan, Emsam patch, IM Zyprexa, and now Haldol on 305 commitment. For first 2 months of his stay he was not taking PO meds consistently and was largely mute though this has improved dramatically following court order for ECT. He remains resistant to groups but is motivated to discuss housing options and take PO medication. He is now expressing preferences with regards to his care. He remains in need of inpatient psychiatric care and has no current housing which he will require housing with level of supervision and support to avoid regression back to lack of eating/self-care, etc as seen prior to his current admission. 05/11/21: intermittent progress, currently regressed Plan: change trazodone to prn as patient has been sleeping well with Zyprexa increase. (1) Schizoaffective disorder: Risk Factors Assessment Male: Yes : Yes Do You Have Access To A Gun?: No (in supportive living enviornment, pt unable to answer ) Mental Health Diagnoses: Yes Previous Psychiatric Hospitalization: Yes Protective Factors Assessment Employed: No Interval History Identifying Information 40 yo man with history of catatonia, depression, schizoaffective disorder admitted due to concern for decompensation with failure of self-care at [facility]. Admitted on 302, now 305. Chief Complaint selective mutism Review of Systems Sleep Information Total Hours of Sleep: 10.75 Sleep Comments: pt appeared to sleep 3.75 during evening shift. pt on q-15 minute checks Meal Information Percent Meal Consumed - Breakfast: 0 Percent Meal Consumed - Lunch: 100 Percent Meal Consumed - Dinner: 100 Nutrition Comment: pt. OOB & had juice and 2 bowls of cereal Subjective Subjective Patient was seen & assessed and interval progress reviewed with nursing. less interactive yesterday but did eat. Now appears hypersomnolent at times. Physical Exam Psychiatric uncooperative with exam, eyes open and staring toward the window, would not speak or acknowledge my presence. Vital Signs (Past 24 Hours) Last Vital Signs Temp 37.1 C 05/10/21 22:52 Pulse 84 05/11/21 06:51 Resp 16 05/11/21 06:51 BP 115/72 05/11/21 06:51 Pulse Ox 94 04/03/21 20:37 Results & Data ([facility]) Current Inpatient Medications Current Inpatient Medications: Current Inpatient Medications Acetaminophen (Acetaminophen 325 Mg Tab) 650 mg PO Q4H PRN PRN Reason: Headache or Minor Fever Stop: 06/11/21 10:27 Last Admin: 03/16/21 10:34 Dose: 325 mg Documented by: Al Hydrox/Mg Hydrox/Simethicone (Aluminum/Magnesium Susp 30 Ml Udc) 30 ml PO Q4H PRN PRN Reason: GI Upset Stop: 06/11/21 10:27 Benztropine Mesylate (Benztropine Mesylate 1 Mg Tab) 1 mg PO Q6 PRN PRN Reason: Muscle Spasm Stop: 06/11/21 08:40 Bismuth Subsalicylate (Bismuth Subsalicylate Liqd 236 Ml) 15 ml PO PRN PRN PRN Reason: Loose Stool Stop: 06/11/21 02:27 Bupropion HCl (Bupropion Xl 150 Mg Tabcr) 150 mg PO [facility] Stop: 06/07/21 08:59 Last Admin: 05/11/21 09:03 Dose: Not Given Documented by: Folic Acid (Folic Acid 1 Mg Tab) 1 mg PO [facility] Stop: 06/11/21 21:59 Last Admin: 05/10/21 20:38 Dose: 1 mg Documented by: Lamotrigine (Lamotrigine 25 Mg Tab) [facility] [place] [facility] Stop: 06/11/21 08:59 Lorazepam (Lorazepam 1 Mg Tab) 1 mg PO Q6 PRN PRN Reason: Anxiety/Agitation Stop: 06/11/21 08:14 Last Admin: 04/04/21 20:52 Dose: 1 mg Documented by: Magnesium Hydroxide (Magnesium Hydroxide Susp 30 Ml Udc) 30 ml PO DAILY PRN PRN Reason: Constipation Stop: 06/11/21 10:27 Olanzapine (Olanzapine 20 Mg Tablet) 20 mg PO [facility] Stop: 06/05/21 21:59 Last Admin: 05/10/21 20:38 Dose: 20 mg Documented by: Sodium Chloride (Sodium Chloride 0.65% Na Soln 45 Ml ([place])) 1 - 2 sprays NA PRN PRN PRN Reason: Nasal Dryness/Congestion Stop: 06/11/21 10:27 Trazodone HCl (Trazodone Hcl 100 Mg Tab) 100 mg PO HS OG Stop: 05/27/21 21:59 Last Admin: 05/10/21 20:38 Dose: 100 mg Documented by: Mental Health & Subst Abuse Tx Psychiatrist Name of Psychiatrist: Oniel Negron Psychiatrist's Date of Appointment with Psychiatrist: 03/13/21 Time of Appointment with Psychiatrist: 9:20am Psychiatric Appointment Comment: Zoom *is on waiting list for appt. sooner Therapist Name of Therapist: Unknown Linseed Oil Order Filler Name of Linseed Oil Order Filler: Mauri (BSU) Post Discharge Appointments Primary Care Physician Name Of Family Doctor: Unknown
[2021-05-11] MEDS ORDERED: traZODone HCL 100 MG TAB PO PRN (10:51)
[2021-05-11] MEDS: OLANZapine 20 MG TABLET PO SCH (21:23)
[2021-05-11] MEDS: FOLIC ACID 1 MG TAB PO SCH (21:23)
[2021-05-12] MEDS ORDERED: lamoTRIgine 25 MG TAB PO SCH (09:00)
[2021-05-12] MEDS: buPROPion XL 150 MG TABCR PO SCH (09:44)
--- NOTE | 2021-05-12 10:46 | Psychiatric Progress Note ---
Date of Service May 12, 2021 Impression / Recommendations Impression The patient is a 40 year old with a history of schizoaffective disorder who was admitted for failure of self-care and [facility] decompensation [facility]. His functioning is poor with inconsistent activity and PO intake despite trials of Ativan, Emsam patch, IM Zyprexa, and now Haldol on 305 commitment. For first 2 months of his stay he was not taking PO meds consistently and was largely mute though this has improved dramatically following court order for ECT. He remains resistant to groups but is motivated to discuss housing options and take PO medication. He is now expressing preferences with regards to his care. He remains in need of inpatient psychiatric care and has no current housing which he will require housing with level of supervision and support to avoid regression back to lack of eating/self-care, etc as seen prior to his current admission. 05/12/21: unchanged Plan: lamictal titration, shift to pm as best compliance. (1) Schizoaffective disorder: Risk Factors Assessment Male: Yes : Yes Do You Have Access To A Gun?: No (in supportive living enviornment, pt unable to answer ) Mental Health Diagnoses: Yes Previous Psychiatric Hospitalization: Yes Protective Factors Assessment Employed: No Interval History Identifying Information 40 yo man with history of catatonia, depression, schizoaffective disorder admitted due to concern for decompensation with failure of self-care at [facility]. Admitted on 302, now 305. Chief Complaint selective mutism Review of Systems Sleep Information Total Hours of Sleep: 7.75 Sleep Comments: pt on q-15 minute checks Meal Information Percent Meal Consumed - Breakfast: 0 Percent Meal Consumed - Lunch: 50 Percent Meal Consumed - Dinner: 100 Nutrition Comment: pt. OOB & had juice and 2 bowls of cereal Subjective Subjective Patient was seen & assessed and interval progress reviewed with nursing and social work. took pm meds, remains more active on unit in the pm. ate. Physical Exam Psychiatric uncooperative in that keeps head covered, won't speak, ignores. Vital Signs (Past 24 Hours) Last Vital Signs Temp 37.4 C 05/11/21 19:59 Pulse 80 05/12/21 06:46 Resp 16 05/12/21 06:46 BP 118/77 05/12/21 06:46 Pulse Ox 94 04/03/21 20:37 Results & Data ([facility]) Current Inpatient Medications Current Inpatient Medications: Current Inpatient Medications Acetaminophen (Acetaminophen 325 Mg Tab) 650 mg PO Q4H PRN PRN Reason: Headache or Minor Fever Stop: 06/11/21 10:27 Last Admin: 03/16/21 10:34 Dose: 325 mg Documented by: Al Hydrox/Mg Hydrox/Simethicone (Aluminum/Magnesium Susp 30 Ml Udc) 30 ml PO Q4H PRN PRN Reason: GI Upset Stop: 06/11/21 10:27 Benztropine Mesylate (Benztropine Mesylate 1 Mg Tab) 1 mg PO Q6 PRN PRN Reason: Muscle Spasm Stop: 06/11/21 08:40 Bismuth Subsalicylate (Bismuth Subsalicylate Liqd 236 Ml) 15 ml PO PRN PRN PRN Reason: Loose Stool Stop: 06/11/21 02:27 Bupropion HCl (Bupropion Xl 150 Mg Tabcr) 150 mg PO QAM OG Stop: 06/07/21 08:59 Last Admin: 05/12/21 09:44 Dose: 150 mg Documented by: Folic Acid (Folic Acid 1 Mg Tab) 1 mg PO HS GO Stop: 06/11/21 21:59 Last Admin: 05/11/21 21:23 Dose: 1 mg Documented by: Lamotrigine (Lamotrigine 25 Mg Tab) 50 mg PO QPM OG Stop: 06/11/21 20:59 Lorazepam (Lorazepam 1 Mg Tab) 1 mg PO Q6 PRN PRN Reason: Anxiety/Agitation Stop: 06/11/21 08:14 Last Admin: 04/04/21 20:52 Dose: 1 mg Documented by: Magnesium Hydroxide (Magnesium Hydroxide Susp 30 Ml Udc) 30 ml PO DAILY PRN PRN Reason: Constipation Stop: 06/11/21 10:27 Olanzapine (Olanzapine 20 Mg Tablet) 20 mg PO HS OG Stop: 06/05/21 21:59 Last Admin: 05/11/21 21:23 Dose: 20 mg Documented by: Sodium Chloride (Sodium Chloride 0.65% Na Soln 45 Ml ([place])) 1 - 2 sprays NA PRN PRN PRN Reason: Nasal Dryness/Congestion Stop: 06/11/21 10:27 Trazodone HCl (Trazodone Hcl 100 Mg Tab) 100 mg PO HS PRN PRN Reason: insomnia Stop: 05/27/21 21:59 Mental Health & Subst Abuse Tx Psychiatrist Name of Psychiatrist: Oniel Negron Psychiatrist's Date of Appointment with Psychiatrist: 03/13/21 Time of Appointment with Psychiatrist: 9:20am Psychiatric Appointment Comment: Zoom *is on waiting list for appt. sooner Therapist Name of Therapist: Unknown Reel Man Name of Reel Man: Mauri (BSU) Post Discharge Appointments Primary Care Physician Name Of Family Doctor: Unknown
[2021-05-12] MEDS: FOLIC ACID 1 MG TAB PO SCH (21:09)
[2021-05-12] MEDS: OLANZapine 20 MG TABLET PO SCH (21:09)
[2021-05-12] MEDS: lamoTRIgine 25 MG TAB PO SCH (21:09)
[2021-05-13] MEDS: buPROPion XL 150 MG TABCR PO SCH ×2 (08:31→13:55)
--- NOTE | 2021-05-13 09:10 | Psychiatric Progress Note ---
Date of Service May 13, 2021 Impression / Recommendations Impression The patient is a 40 year old with a history of schizoaffective disorder who was admitted for failure of self-care and [facility]. His functioning is poor with inconsistent activity and PO intake despite trials of Ativan, Emsam patch, IM Zyprexa, and now Haldol on 305 commitment. For first 2 months of his stay he was not taking PO meds consistently and was largely mute though this has improved dramatically following court order for ECT. He remains resistant to groups but is motivated to discuss housing options and take PO medication. He is now expressing preferences with regards to his care. He remains in need of inpatient psychiatric care and has no current housing which he will require housing with level of supervision and support to avoid regression back to lack of eating/self-care, etc as seen prior to his current admission. 05/13/21: unchanged Plan: continue current meds and treatment plan. Risk Factors Assessment Male: Yes : Yes Do You Have Access To A Gun?: No (in supportive living enviornment, pt unable to answer ) Mental Health Diagnoses: Yes Previous Psychiatric Hospitalization: Yes Protective Factors Assessment Employed: No Interval History Identifying Information 40 yo man with history of catatonia, depression, schizoaffective disorder admitted due to concern for decompensation with failure of self-care at [facility]. Admitted on 302, now 305. Chief Complaint selective mutism Review of Systems Sleep Information Total Hours of Sleep: 8.75 Sleep Comments: pt on q-15 minute checks Meal Information Percent Meal Consumed - Breakfast: 0 Percent Meal Consumed - Lunch: 75 Percent Meal Consumed - Dinner: 100 Nutrition Comment: David did come out at 1400 and ate his meal. Subjective Subjective Patient was seen & assessed and interval progress reviewed with treatment team. Continues to refuse breakfast but med compliant, did speak with his yesterday and was irritable after. He does not attend programming or elaborate. No medication side effects reported. Seems unmotivated but will likely change for diversion follow up meeting. Physical Exam Psychiatric uncooperative, lays in bed and faces away/will not acknowledge, eyes open at times with no spontaneous utterance Vital Signs (Past 24 Hours) Last Vital Signs Temp 36.8 C 05/12/21 20:31 Pulse 80 05/12/21 06:46 Resp 16 05/12/21 06:46 BP 118/77 05/12/21 06:46 Pulse Ox 94 04/03/21 20:37 Results & Data ([facility]) Current Inpatient Medications Current Inpatient Medications: Current Inpatient Medications Acetaminophen (Acetaminophen 325 Mg Tab) 650 mg PO Q4H PRN PRN Reason: Headache or Minor Fever Stop: 06/11/21 10:27 Last Admin: 03/16/21 10:34 Dose: 325 mg Documented by: Al Hydrox/Mg Hydrox/Simethicone (Aluminum/Magnesium Susp 30 Ml Udc) 30 ml PO Q4H PRN PRN Reason: GI Upset Stop: 06/11/21 10:27 Benztropine Mesylate (Benztropine Mesylate 1 Mg Tab) 1 mg PO Q6 PRN PRN Reason: Muscle Spasm Stop: 06/11/21 08:40 Bismuth Subsalicylate (Bismuth Subsalicylate Liqd 236 Ml) 15 ml PO PRN PRN PRN Reason: Loose Stool Stop: 06/11/21 02:27 Bupropion HCl (Bupropion Xl 150 Mg Tabcr) 150 mg PO QAM GO Stop: 06/07/21 08:59 Last Admin: 05/13/21 08:31 Dose: Not Given Documented by: Folic Acid (Folic Acid 1 Mg Tab) [address] [facility] Stop: 06/11/21 21:59 Last Admin: 05/12/21 21:09 Dose: 1 mg Documented by: Lamotrigine (Lamotrigine 25 Mg Tab) 50 mg PO QPM OG Stop: 06/11/21 20:59 Last Admin: 05/12/21 21:09 Dose: 50 mg Documented by: Lorazepam (Lorazepam 1 Mg Tab) 1 mg PO Q6 PRN PRN Reason: Anxiety/Agitation Stop: 06/11/21 08:14 Last Admin: 04/04/21 20:52 Dose: 1 mg Documented by: Magnesium Hydroxide (Magnesium Hydroxide Susp 30 Ml Udc) 30 ml PO DAILY PRN PRN Reason: Constipation Stop: 06/11/21 10:27 Olanzapine (Olanzapine 20 Mg Tablet) 20 mg PO HS [facility] Stop: 06/05/21 21:59 Last Admin: 05/12/21 21:09 Dose: 20 mg Documented by: Sodium Chloride (Sodium Chloride 0.65% Na Soln 45 Ml ([place])) 1 - 2 sprays NA PRN PRN PRN Reason: Nasal Dryness/Congestion Stop: 06/11/21 10:27 Trazodone HCl (Trazodone Hcl 100 Mg Tab) 100 mg PO HS PRN PRN Reason: insomnia Stop: 05/27/21 21:59 Mental Health & Subst Abuse Tx Psychiatrist Name of Psychiatrist: Oniel Negron Psychiatrist's Date of Appointment with Psychiatrist: 03/13/21 Time of Appointment with Psychiatrist: 9:20am Psychiatric Appointment Comment: Zoom *is on waiting list for appt. sooner Therapist Name of Therapist: Unknown Celebrity Manager Name of Celebrity Manager: Mauri (BSU) Post Discharge Appointments Primary Care Physician Name Of Family Doctor: Unknown
[2021-05-13] MEDS: OLANZapine 20 MG TABLET PO SCH (21:42)
[2021-05-13] MEDS: lamoTRIgine 25 MG TAB PO SCH (21:42)
[2021-05-13] MEDS: FOLIC ACID 1 MG TAB PO SCH (21:42)
[2021-05-14] MEDS: buPROPion XL 150 MG TABCR PO SCH (09:07)
--- NOTE | 2021-05-14 11:12 | Psychiatric Progress Note ---
Date of Service May 14, 2021 Impression / Recommendations Impression The patient is a 40 year old with a history of schizoaffective disorder who was admitted for failure of self-care and worsening decompensation at retirement. His functioning is poor with inconsistent activity and PO intake despite trials of Ativan, Emsam patch, IM Zyprexa, and now Haldol on 305 commitment. For first 2 months of his stay he was not taking PO meds consistently and was largely mute though this has improved dramatically following court order for ECT. He remains resistant to groups but is motivated to discuss housing options and take PO medication. He is now expressing preferences with regards to his care. He remains in need of inpatient psychiatric care and has no current housing which he will require housing with level of supervision and support to avoid regression back to lack of eating/self-care, etc as seen prior to his current admission. 05/14/21: unchanged Plan: shift dosing times of meds to improve compliance (is taking but very resistant in am, etc), [facility] meeting tomorrow. (1) Schizoaffective disorder: Risk Factors Assessment Male: Yes : Yes Do You Have Access To A Gun?: No (in supportive living enviornment, pt unable to answer ) Mental Health Diagnoses: Yes Previous Psychiatric Hospitalization: Yes Protective Factors Assessment Employed: No Interval History Identifying Information 40 yo man with history of catatonia, depression, schizoaffective disorder admitted due to concern for decompensation with failure of self-care at [facility]. Admitted on 302, now 305. Chief Complaint selective mutism Review of Systems Sleep Information Total Hours of Sleep: 8.75 Sleep Comments: pt on q-15 minute checks Meal Information Percent Meal Consumed - Breakfast: 100 Percent Meal Consumed - Lunch: 100 Percent Meal Consumed - Dinner: 75 Nutrition Comment: David did come out at 1400 and ate his meal. Subjective Subjective Patient was seen & assessed and interval progress reviewed with nursing and social work. OOB more in afternoon/evening but not showering. Is compliant with medications but as always more resistant in am. No motivation to go outside or to shower. Physical Exam Psychiatric uncooperative, keeps head covered, won't respond to presence despite clearly moving/awake. Vital Signs (Past 24 Hours) Last Vital Signs Temp 36.5 C 05/13/21 20:00 Pulse 80 05/12/21 06:46 Resp 16 05/12/21 06:46 BP 118/77 05/12/21 06:46 Pulse Ox 94 04/03/21 20:37 Results & Data ([facility]) Current Inpatient Medications Current Inpatient Medications: Current Inpatient Medications Acetaminophen (Acetaminophen 325 Mg Tab) 650 mg PO Q4H PRN PRN Reason: Headache or Minor Fever Stop: 06/11/21 10:27 Last Admin: 03/16/21 10:34 Dose: 325 mg Documented by: Al Hydrox/Mg Hydrox/Simethicone (Aluminum/Magnesium Susp 30 Ml Udc) 30 ml PO Q4H PRN PRN Reason: GI Upset Stop: 06/11/21 10:27 Benztropine Mesylate (Benztropine Mesylate 1 Mg Tab) 1 mg PO Q6 PRN PRN Reason: Muscle Spasm Stop: 06/11/21 08:40 Bismuth Subsalicylate (Bismuth Subsalicylate Liqd 236 Ml) 15 ml PO PRN PRN PRN Reason: Loose Stool Stop: 06/11/21 02:27 Lorazepam (Lorazepam 1 Mg Tab) 1 mg PO Q6 PRN PRN Reason: Anxiety/Agitation Stop: 06/11/21 08:14 Last Admin: 04/04/21 20:52 Dose: 1 mg Documented by: Magnesium Hydroxide (Magnesium Hydroxide Susp 30 Ml Udc) 30 ml PO DAILY PRN PRN Reason: Constipation Stop: 06/11/21 10:27 Sodium Chloride (Sodium Chloride 0.65% Na Soln 45 Ml ([place])) 1 - 2 sprays NA PRN PRN PRN Reason: Nasal Dryness/Congestion Stop: 06/11/21 10:27 Trazodone HCl (Trazodone Hcl 100 Mg Tab) 100 mg PO HS PRN PRN Reason: insomnia Stop: 05/27/21 21:59 Mental Health & Subst Abuse Tx Psychiatrist Name of Psychiatrist: Oniel Negron Psychiatrist's Date of Appointment with Psychiatrist: 03/13/21 Time of Appointment with Psychiatrist: 9:20am Psychiatric Appointment Comment: Zoom *is on waiting list for appt. sooner Therapist Name of Therapist: Unknown Chief Strategy Officer Name of Chief Strategy Officer: Mauri (DIRKU) Post Discharge Appointments Primary Care Physician Name Of Family Doctor: Unknown
[2021-05-14] MEDS: OLANZapine 20 MG TABLET PO SCH (20:15)
[2021-05-14] MEDS: lamoTRIgine 25 MG TAB PO SCH (20:16)
[2021-05-14] MEDS: FOLIC ACID 1 MG TAB PO SCH (20:16)
--- NOTE | 2021-05-15 10:03 | Psychiatric Progress Note ---
Date of Service May 15, 2021 Impression / Recommendations Impression The patient is a 40 year old with a history of schizoaffective disorder who was admitted for failure of self-care and worsening decompensation at [facility]. His functioning is poor with inconsistent activity and PO intake despite trials of Ativan, Emsam patch, IM Zyprexa, and now Haldol on 305 commitment. For first 2 months of his stay he was not taking PO meds consistently and was largely mute though this has improved dramatically following court order for ECT. He remains resistant to groups but is motivated to discuss housing options and take PO medication. He is now expressing preferences with regards to his care. He remains in need of inpatient psychiatric care and has no current housing which he will require housing with level of supervision and support to avoid regression back to lack of eating/self-care, etc as seen prior to his current admission. 05/15/21: some increase in activity yesterday pm/this am Plan: [facility] diversion meeting this afternoon. (1) Schizoaffective disorder: Risk Factors Assessment Male: Yes : Yes Do You Have Access To A Gun?: No (in supportive living enviornment, pt unable to answer ) Mental Health Diagnoses: Yes Previous Psychiatric Hospitalization: Yes Protective Factors Assessment Employed: No Interval History Identifying Information 40 yo man with history of catatonia, depression, schizoaffective disorder admitted due to concern for decompensation with failure of self-care at [facility]. Admitted on 302, now 305. Chief Complaint "I'm good, I would like to go outside". Review of Systems Sleep Information Total Hours of Sleep: 6.5 Sleep Comments: pt on q-15 minute checks Meal Information Percent Meal Consumed - Breakfast: 100 Percent Meal Consumed - Lunch: 100 Percent Meal Consumed - Dinner: 100 Nutrition Comment: David did come out at 1400 and ate his meal. Subjective Subjective Patient was seen & assessed and interval progress reviewed with treatment team. Showered last pm as motivated to participate in meeting with [facility]. He is asking to go outside today and was up earlier and ate breakfast for the first time in a while. He voiced understanding of Wellbutrin being moved to lunch time to improve compliance. Physical Exam Psychiatric Orientation: alert and oriented x 3 Apperance: + disheveled Eye Contact: + poor eye contact Motor Behavior: steady gait and station Speech: + abnormal rate/rhythm/volume of speech Affect: + constricted affect Mood: + anxious mood Thought Process: + concrete thought process Suicidal Thoughts: denies suicidal thoughts Homicidal Thoughts: denies homicidal thoughts Hallucinations: no auditory hallucinations and no visual hallucinations Cognition: language grossly intact Insight: + poor insight Judgement: + limited judgement Vital Signs (Past 24 Hours) Last Vital Signs Temp 37.4 C 05/14/21 21:01 Pulse 80 05/12/21 06:46 Resp 16 05/12/21 06:46 BP 118/77 05/12/21 06:46 Pulse Ox 94 04/03/21 20:37 Results & Data ([facility]) Current Inpatient Medications Current Inpatient Medications: Current Inpatient Medications Acetaminophen (Acetaminophen 325 Mg Tab) 650 mg PO Q4H PRN PRN Reason: Headache or Minor Fever Stop: 06/11/21 10:27 Last Admin: 03/16/21 10:34 Dose: 325 mg Documented by: Al Hydrox/Mg Hydrox/Simethicone (Aluminum/Magnesium Susp 30 Ml Udc) 30 ml PO Q4H PRN PRN Reason: GI Upset Stop: 06/11/21 10:27 Benztropine Mesylate (Benztropine Mesylate 1 Mg Tab) 1 mg PO Q6 PRN PRN Reason: Muscle Spasm Stop: 06/11/21 08:40 Bismuth Subsalicylate (Bismuth Subsalicylate Liqd 236 Ml) 15 ml PO PRN PRN PRN Reason: Loose Stool Stop: 06/11/21 02:27 Bupropion HCl (Bupropion Xl 150 Mg Tabcr) [facility] Stop: 06/14/21 11:59 Folic Acid (Folic Acid 1 Mg Tab) 1 mg PO TODAY@1999 [facility] Stop: 06/13/21 19:59 Last Admin: 05/14/21 20:16 Dose: 1 mg Documented by: Lamotrigine (Lamotrigine 25 Mg Tab) 50 mg PO TODAY@1999 [facility] Stop: 06/13/21 19:59 Last Admin: 05/14/21 20:16 Dose: 50 mg Documented by: Lorazepam (Lorazepam 1 Mg Tab) 1 mg PO Q6 PRN PRN Reason: Anxiety/Agitation Stop: 06/11/21 08:14 Last Admin: 04/04/21 20:52 Dose: 1 mg Documented by: Magnesium Hydroxide (Magnesium Hydroxide Susp 30 Ml Udc) 30 ml PO DAILY PRN PRN Reason: Constipation Stop: 06/11/21 10:27 Olanzapine (Olanzapine 20 Mg Tablet) 20 mg PO TODAY@1999 [facility] Stop: 06/13/21 19:59 Last Admin: 05/14/21 20:15 Dose: 20 mg Documented by: Sodium Chloride (Sodium Chloride 0.65% Na Soln 45 Ml ([place])) 1 - 2 sprays NA PRN PRN PRN Reason: Nasal Dryness/Congestion Stop: 06/11/21 10:27 Trazodone HCl (Trazodone Hcl 100 Mg Tab) 100 mg PO HS PRN PRN Reason: insomnia Stop: 05/27/21 21:59 Mental Health & Subst Abuse Tx Psychiatrist Name of Psychiatrist: Oniel Negron Psychiatrist's Date of Appointment with Psychiatrist: 03/13/21 Time of Appointment with Psychiatrist: 9:20am Psychiatric Appointment Comment: Zoom *is on waiting list for appt. sooner Therapist Name of Therapist: Unknown Blast Hole Driller Name of Blast Hole Driller: Mauri ([facility]) Post Discharge Appointments Primary Care Physician Name Of Family Doctor: Unknown
[2021-05-15] MEDS: buPROPion XL 150 MG TABCR PO SCH (12:26)
[2021-05-15] MEDS: FOLIC ACID 1 MG TAB PO SCH (20:47)
[2021-05-15] MEDS: lamoTRIgine 25 MG TAB PO SCH (20:47)
[2021-05-15] MEDS: OLANZapine 20 MG TABLET PO SCH (20:48)
[2021-05-16] MEDS: buPROPion XL 150 MG TABCR PO SCH (12:04)
--- NOTE | 2021-05-16 13:17 | Psychiatric Progress Note ---
Date of Service May 16, 2021 Impression / Recommendations Impression The patient is a 40 year old with a history of schizoaffective disorder who was admitted for failure of self-care and [facility] decompensation at [facility]. His functioning is poor with inconsistent activity and PO intake despite trials of Ativan, Emsam patch, IM Zyprexa, and now Haldol on 305 commitment. For first 2 months of his stay he was not taking PO meds consistently and was largely mute though this has improved dramatically following court order for ECT. He remains resistant to groups but is motivated to discuss housing options and take PO medication. He is now expressing preferences with regards to his care. He remains in need of inpatient psychiatric care and has no current housing which he will require housing with level of supervision and support to avoid regression back to lack of eating/self-care, etc as seen prior to his current admission. 05/16/21: same Plan: unable to return to Dr. Negron's care, sw to refer to [facility] for management of anticipated outpatient commitment. Risk Factors Assessment Male: Yes : Yes Do You Have Access To A Gun?: No (in supportive living enviornment, pt unable to answer ) Mental Health Diagnoses: Yes Previous Psychiatric Hospitalization: Yes Protective Factors Assessment Employed: No Interval History Identifying Information 40 yo man with history of catatonia, depression, schizoaffective disorder admitted due to concern for decompensation with failure of self-care at [facility]. Admitted on 302, now 305. Chief Complaint "hello, I'm fine". Review of Systems Sleep Information Total Hours of Sleep: 6.25 Sleep Comments: pt on q-15 minute checks Meal Information Percent Meal Consumed - Breakfast: 70 Percent Meal Consumed - Lunch: 75 Percent Meal Consumed - Dinner: 75 Nutrition Comment: David did come out at 1400 and ate his meal. Subjective Subjective Patient was seen & assessed and interval progress reviewed with nursing and social work. Has been more visible on the unit. Denies recurrence of dizziness. He remains focussed on housing and won't initiate conversation (or continue) unless he has a specific need. Eating/drinking/taking meds. Physical Exam Psychiatric Orientation: alert Apperance: + disheveled Eye Contact: + poor eye contact Motor Behavior: no abnormal motor movements Speech: + abnormal rate/rhythm/volume of speech Affect: + depressed affect Mood: + depressed mood Thought Process: + concrete thought process Thought Content: reality based without delusions Suicidal Thoughts: denies suicidal thoughts Homicidal Thoughts: denies homicidal thoughts Hallucinations: no auditory hallucinations and no visual hallucinations Cognition: language grossly intact; + attention not intact Estimated Intelligence: consistent with education level Insight: + limited insight Judgement: + limited judgement Vital Signs (Past 24 Hours) Last Vital Signs Temp 37.4 C 05/14/21 21:01 Pulse 80 05/12/21 06:46 Resp 16 05/12/21 06:46 BP 118/77 05/12/21 06:46 Pulse Ox 94 04/03/21 20:37 Results & Data ([facility]) Current Inpatient Medications Current Inpatient Medications: Current Inpatient Medications Acetaminophen (Acetaminophen 325 Mg Tab) 650 mg PO Q4H PRN PRN Reason: Headache or Minor Fever Stop: 06/11/21 10:27 Last Admin: 03/16/21 10:34 Dose: 325 mg Documented by: Al Hydrox/Mg Hydrox/Simethicone (Aluminum/Magnesium Susp 30 Ml Udc) 30 ml PO Q4H PRN PRN Reason: GI Upset Stop: 06/11/21 10:27 Benztropine Mesylate (Benztropine Mesylate 1 Mg Tab) 1 mg PO Q6 PRN PRN Reason: Muscle Spasm Stop: 06/11/21 08:40 Bismuth Subsalicylate (Bismuth Subsalicylate Liqd 236 Ml) 15 ml PO PRN PRN PRN Reason: Loose Stool Stop: 06/11/21 02:27 Bupropion HCl (Bupropion Xl 150 Mg Tabcr) [facility] Stop: 06/14/21 11:59 Last Admin: 05/16/21 12:04 Dose: 150 mg Documented by: Folic Acid (Folic Acid 1 Mg Tab) 1 mg PO TODAY@1999 [facility] Stop: 06/13/21 19:59 Last Admin: 05/15/21 20:47 Dose: 1 mg Documented by: Lamotrigine (Lamotrigine 25 Mg Tab) 50 mg PO TODAY@1999 [facility] Stop: 06/13/21 19:59 Last Admin: 05/15/21 20:47 Dose: 50 mg Documented by: Lorazepam (Lorazepam 1 Mg Tab) 1 mg PO Q6 PRN PRN Reason: Anxiety/Agitation Stop: 06/11/21 08:14 Last Admin: 04/04/21 20:52 Dose: 1 mg Documented by: Magnesium Hydroxide (Magnesium Hydroxide Susp 30 Ml Udc) 30 ml PO DAILY PRN PRN Reason: Constipation Stop: 06/11/21 10:27 Olanzapine (Olanzapine 20 Mg Tablet) 20 mg PO TODAY@1999 [facility] Stop: 06/13/21 19:59 Last Admin: 05/15/21 20:48 Dose: 20 mg Documented by: Sodium Chloride (Sodium Chloride 0.65% Na Soln 45 Ml ([place])) 1 - 2 sprays NA PRN PRN PRN Reason: Nasal Dryness/Congestion Stop: 06/11/21 10:27 Trazodone HCl (Trazodone Hcl 100 Mg Tab) 100 mg PO HS PRN PRN Reason: insomnia Stop: 05/27/21 21:59 Mental Health & Subst Abuse Tx Psychiatrist Name of Psychiatrist: Oniel Negron Psychiatrist's Date of Appointment with Psychiatrist: 03/13/21 Time of Appointment with Psychiatrist: 9:20am Psychiatric Appointment Comment: Zoom *is on waiting list for appt. sooner Therapist Name of Therapist: Unknown Rubber Goods Cutter Finisher Name of Rubber Goods Cutter Finisher: Mauri AVILAU) Post Discharge Appointments Primary Care Physician Name Of Family Doctor: Unknown
[2021-05-16] MEDS: lamoTRIgine 25 MG TAB PO SCH (21:04)
[2021-05-16] MEDS: OLANZapine 20 MG TABLET PO SCH (21:04)
[2021-05-16] MEDS: FOLIC ACID 1 MG TAB PO SCH (21:04)
--- NOTE | 2021-05-17 10:44 | Psychiatric Progress Note ---
Date of Service May 17, 2021 Impression / Recommendations Impression The patient is a 40 year old with a history of schizoaffective disorder who was admitted for failure of self-care and [facility] decomp[facility]. His functioning is poor with inconsistent activity and PO intake despite trials of Ativan, Emsam patch, IM Zyprexa, and now Haldol on 305 commitment. For first 2 months of his stay he was not taking PO meds consistently and was largely mute though this has improved dramatically following court order for ECT. He remains resistant to groups but is motivated to discuss housing options and take PO medication. He is now expressing preferences with regards to his care. He remains in need of inpatient psychiatric care and has no current housing which he will require housing with level of supervision and support to avoid regression back to lack of eating/self-care, etc as seen prior to his current admission. 05/17/21: same, remains guarded to therapeutic interventions Plan: continue current meds and treatment plan, will need outpatient commitment. (1) Schizoaffective disorder: Risk Factors Assessment Male: Yes : Yes Do You Have Access To A Gun?: No (in supportive living enviornment, pt unable to answer ) Mental Health Diagnoses: Yes Previous Psychiatric Hospitalization: Yes Protective Factors Assessment Employed: No Interval History Identifying Information 40 yo man with history of catatonia, depression, schizoaffective disorder admitted due to concern for decompensation with failure of self-care at [facility]. Admitted on 302, now 305. Chief Complaint selectively mute or 1 word answers Review of Systems Sleep Information Total Hours of Sleep: 9.75 Sleep Comments: Patient maintained on Q15 minute checks. Meal Information Percent Meal Consumed - Breakfast: 0 Percent Meal Consumed - Lunch: 50 Percent Meal Consumed - Dinner: 100 Nutrition Comment: David did come out at 1400 and ate his meal. Subjective Subjective Patient was seen & assessed and interval progress reviewed with treatment team. Did do a brief 1-on-1 with staff as a community meeting (low census) but quickly mentioned he was tired so he could retreat to his room. Tends to eat his meals late but OOB and adequate. Regaining some weight over recent weeks. Physical Exam Psychiatric alert, disheveled, poor eye contact, barely answers questions/acknowledges presence. Thoughts are concrete. Vital Signs (Past 24 Hours) Last Vital Signs Temp 37.1 C 05/16/21 20:03 Pulse 80 05/12/21 06:46 Resp 16 05/12/21 06:46 BP 118/77 05/12/21 06:46 Pulse Ox 94 04/03/21 20:37 Results & Data ([facility]) Current Inpatient Medications Current Inpatient Medications: Current Inpatient Medications Acetaminophen (Acetaminophen 325 Mg Tab) 650 mg PO Q4H PRN PRN Reason: Headache or Minor Fever Stop: 06/11/21 10:27 Last Admin: 03/16/21 10:34 Dose: 325 mg Documented by: Al Hydrox/Mg Hydrox/Simethicone (Aluminum/Magnesium Susp 30 Ml Udc) 30 ml PO Q4H PRN PRN Reason: GI Upset Stop: 06/11/21 10:27 Benztropine Mesylate (Benztropine Mesylate 1 Mg Tab) 1 mg PO Q6 PRN PRN Reason: Muscle Spasm Stop: 06/11/21 08:40 Bismuth Subsalicylate (Bismuth Subsalicylate Liqd 236 Ml) 15 ml PO PRN PRN PRN Reason: Loose Stool Stop: 06/11/21 02:27 Bupropion HCl (Bupropion Xl 150 Mg Tabcr) [facility] Stop: 06/14/21 11:59 Last Admin: 05/16/21 12:04 Dose: 150 mg Documented by: Folic Acid (Folic Acid 1 Mg Tab) 1 mg PO TODAY@1999 [facility] Stop: 06/13/21 19:59 Last Admin: 05/16/21 21:04 Dose: 1 mg Documented by: Lamotrigine (Lamotrigine 25 Mg Tab) 50 mg PO TODAY@1999 [facility] Stop: 06/13/21 19:59 Last Admin: 05/16/21 21:04 Dose: 50 mg Documented by: Lorazepam (Lorazepam 1 Mg Tab) 1 mg PO Q6 PRN PRN Reason: Anxiety/Agitation Stop: 06/11/21 08:14 Last Admin: 04/04/21 20:52 Dose: 1 mg Documented by: Magnesium Hydroxide (Magnesium Hydroxide Susp 30 Ml Udc) 30 ml PO DAILY PRN PRN Reason: Constipation Stop: 06/11/21 10:27 Olanzapine (Olanzapine 20 Mg Tablet) 20 mg PO TODAY@1999 [facility] Stop: 06/13/21 19:59 Last Admin: 05/16/21 21:04 Dose: 20 mg Documented by: Sodium Chloride (Sodium Chloride 0.65% Na Soln 45 Ml ([place])) 1 - 2 sprays NA PRN PRN PRN Reason: Nasal Dryness/Congestion Stop: 06/11/21 10:27 Trazodone HCl (Trazodone Hcl 100 Mg Tab) 100 mg PO HS PRN PRN Reason: insomnia Stop: 05/27/21 21:59 Mental Health & Subst Abuse Tx Psychiatrist Name of Psychiatrist: Oniel Negron Psychiatrist's Date of Appointment with Psychiatrist: 03/13/21 Time of Appointment with Psychiatrist: 9:20am Psychiatric Appointment Comment: Zoom *is on waiting list for appt. sooner Therapist Name of Therapist: Unknown Editor Map Name of Editor Map: Mauri ([facility]) Post Discharge Appointments Primary Care Physician Name Of Family Doctor: Unknown
[2021-05-17] MEDS: buPROPion XL 150 MG TABCR PO SCH (11:50)
[2021-05-17] MEDS: FOLIC ACID 1 MG TAB PO SCH (20:21)
[2021-05-17] MEDS: OLANZapine 20 MG TABLET PO SCH (20:21)
[2021-05-17] MEDS: lamoTRIgine 25 MG TAB PO SCH (20:21)
[2021-05-18] MEDS: buPROPion XL 150 MG TABCR PO SCH (11:25)
--- NOTE | 2021-05-18 12:29 | Psychiatric Progress Note ---
Date of Service May 18, 2021 Impression / Recommendations Impression The patient is a 40 year old with a history of schizoaffective disorder who was admitted for failure of self-care and worsening decompensation at long-term. His functioning is poor with inconsistent activity and PO intake despite trials of Ativan, Emsam patch, IM Zyprexa, and now Haldol on 305 commitment. For first 2 months of his stay he was not taking PO meds consistently and was largely mute though this has improved dramatically following court order for ECT. He remains resistant to groups but is motivated to discuss housing options and take PO medication. He is now expressing preferences with regards to his care. He remains in need of inpatient psychiatric care and has no current housing which he will require housing with level of supervision and support to avoid regression back to lack of eating/self-care, etc as seen prior to his current admission. 05/18/21: remains largely isolative to his room, in bed for most of the day, discussed goal of increasing activity, could consider latuda trial but will wait for now as he tends to desire frequent medication changes but then declines, additionally he continues to find olanzapine helpful and denies side effects Plan: continue current meds and treatment plan, will need outpatient commitment. Reviewed interim progress from Dr. Arevalo's notes. (1) Schizoaffective disorder: 05/18/21: continue current medications. housing remains biggest barrier to discharge. encouraging increase in attention to hygiene. 05/09/21: continue current medications. Next diversion mtg will be 05/15/20 at 1:30pm. 05/08/21: continue current medications. Meeting tomorrow to discuss potential housing and outpatient options should he continue to show progress and stability in his ability to provide for self-care needs. 05/07/21: Increasing Wellbutrin to 150mg XL qAM. 05/06/21: increase olanzapine to 20mg qhs. Continue other medications. SW discussing with his outpatient CM potential housing options. 05/05/21: continue current medications. 05/04/21: increase olanzapine to 15 mg qhs and discontinue haldol. Continue other medications. 05/03/21: continue current medications-trazodone 100mg qhs, haldol 10 mg qam, lamictal 25 mg qd, olanzapine 10 mg qhs, wellbutrin SR 100mg qd. Goal will be to move to antipsychotic monotherapy. Will discuss plan to taper haldol with David when he is able to re-engage and state his preferences. 05/01/21: restart Wellbutrin 100 mg SR Qam with plan to titrate. stated he will be in contempt of court if doesn't complete a 4 hr parenting course as a requirement of their divorce proceeding. Letter provided with dates of hospitalization. 04/30/21: d/c hs Haldol, titrate Zyprexa 10 mg po qhs. 04/29/21: refusing ECT at this time, withdrew referral to [facility] and Dr. Mccarthy and hospital insurance attorney notified, staff updated [facility] and is now officially on the waitlist, sw to schedule meeting with CM. Refusing COPPOLA of Haldol but accepting PO. 04/28/21: Re-reviewed risks/benefits of ECT and patient states "I'd still consider it". 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 Discussed that at least for near future I'd like him to take both with the hopes he will still agree to a COPPOLA. Risks/benefits/alternatives reviewed re: Lamictal for mood stabilization. Discussion included but was not limited to slow titration to decrease risks of Huey's Yamil syndrome. Patient agrees to hold med/notify current prescriber of rash immediately. Consider Wellbutrin restart soon, has dopaminergic properties so don't want to exacerbate psychosis. 04/27/21: Patient voices he does not want ECT at this time but would like more time to think about it/discuss. Increase trazodone. Therapeutic time outside when security able/appropriate. He declines COPPOLA Haldol at this time. 04/26/21: continue haldol 10mg BID and trazodone 50mg qhs for insomnia. Awaiting ECT bed availability. 04/25/21: adding trazodone 50mg qhs for insomnia. 04/24/21: increase haldol back to 10mg BID as he continued to refuse lower dose. If he remains sedentary after tomorrow will re-start lovenox. 04/23/21: reduce to haldol 5mg qhs po after discussion with David with goal of improving adherence and folic acid, will d/c lovenox. Now on 305 commitment. 04/22/21: continue haldol and folate and lovenox. Completed 305 commitment paperwork. 04/21/21: continue haldol 10mg BID po and lovenox and folic acid. Day 1 of increased movement. 04/20/21: continue current medication of haldol 10 mg BID po, not doing IM for refusal. Awaiting response from ECT referral. If he can consistently show that he is moving and walking for three days in a row then we can stop the lovenox. 04/19/21: court testimony for 30 min in front of [facility] Judge Ruest answering questions about the patients condition, prognosis, treatment course, rationale for ECT and court order, risks/benefits of ECT. She will deliberated and the hospital insurance attorney forwarded the signed court order for ECT. Dr. Schmitt, Migdalia, and Mili updated. 04/16/21: Haldol 10 mg bid with IM for refusal of PO. Medicine consult appreciated. Referral packet sent to [facility]. 04/13/21: attempt am dose of 5 mg Haldol, continue 10 hs with Ativan. Needs med clearance for ECT. Will hold Lovenox today as some improvement in activity. 04/12/21: continue with haldol and ativan. He was provided with legal paperwork regarding filing for ECT. 04/11/21: continue with haldol and ativan po or IM. Adding mouth checks if he accepts po haldol. Consulted hospitalist for pre-ECT physical exam. He refuses attempts to clip his fingernails. 04/10/21: Add folate supplement. Potassium level improving. Sent out labs for copper and ceruloplasmin. Engaged verbally with multiple staff and briefly watched movie with peers today. Started process for court-ordered ECT. 04/09/21: continue haldol and ativan po or IM. Working on process for consideration for court-ordered ECT. 04/08/21: continue haldol 10mg po or IM and ativan po or IM. Took potassium supplementation in juice yesterday will recheck labs in a few days. Agree with plan to pursue court order for ECT given non-responsiveness to other medication trials so far and his refusal to consistently take any po medication options. 04/07/21: limited PO, remains hypokalemic but overall labs stable 04/06/21: repeat labs in am, consider medicine consult (currently no acute indication for transfer), previous experience was he was less active when prescribed Zyprexa so monitor risks/benefits of Haldol. 04/05/21: attempt to replete K again, Discontinue Emsam patch, pursue court order for ECT when offices reopen after hol. Continue IM Haldol with Ativan trial for now. 04/04/21: Haldol increased to 10 mg PO or IM yesterday with no change overnight, will shift to pm. Will d/c Emsam patch after tomorrow's dose as no sustained benefit and will need to pursue court order for ECT after holiday weekend. 03/31/21: increase haldol to 5 mg po or IM and ativan 1mg po or IM. Continue Emsam patch. 03/30/21: continue haldol 2.5 mg po or IM and ativan 1mg po or IM. Continue Emsam patch. Walked three laps around the unit with encouragement today. 03/29/21: Starting haldol 2.5 mg po or IM and ativan 1mg po or IM for suspected psychosis with negativism, lack of personal care, thought blocking/negative sx and avolition. Continue Emsam patch. Discontinued modafinil. 03/28/21: continue to offer medications. Gave ativan 1mg IM x1 last night after additional episode of spitting. Repeat labwork today showing improvement in nutritional status (albumin and total protein now normal and BUN/CR wnl). 03/27/21: continue to offer medications, he continues to refuse. Continuing to explore ways to involve his extended family or other aspects of care which could incentive his engagement in care. May need to consider if a less sedating antipsychotic medication should be re-trialed. [facility] 03/26/21: continue current medications, refused modafinil but will try again over next few days. Continue with ativan 1mg BIDM po 03/25/21: start modafinil 50 mg qAM, will monitor carefully for any interactions with MAOI. Discontinued ativan IM for refusal of po. Reducing ativan dosing from TID po to BID po in the afternoon to avoid combining morning stimulant with morning benzo as this would be counterproductive to stimulant trial. 03/24/21: continue current medications. 03/23/21: labwork done today and reviewed no significant changes from prior labwork, still has elevated Cl. Continue with lovenox, emsam patch, and ativan 1 mg po TID (with BID IM for refusal) 03/22/21: labs in am and resume Lovenox given regression past 3 days. 03/18/21: unable to care for self outside of hospital, continue Emsam patch, will not increase as I do not believe he can follow appropriate dietary restrictions at higher doses. 03/17/21: Ativan 1 mg PO TID (inject up to BID for refusal). 03/16/21: resume IM Ativan for refusal of PO Ativan. 03/15/21: Continue current medications. Making referral to [facility] given slow progression and he is still very far from his baseline which will require extended treatment and thus he will be best served by a longer term treatment approach. 03/14/21: Continue with current medications. Reviewed labwork, K+ improved but still signs of poor nutrition. Elevated ALT could be side effect from Emsam patch (occurs in <1/100 - 05/999 pts), will continue to monitor. may be able to consider transition to a po medication if he remains consistent with accepting po medications but for now Emsam patch benefit is felt to outweigh risk of slight ALT elevation. 03/13/21: Continue with current medications. Supports from [facility] will visit tomorrow. Labwork CMP tomorrow morning to ensure correction of hypokalemia. 03/12/21: Continue with current medications. Discussed with treatment team having his long-term supports come for a visit and they will visit on . Reviewed his interactions with staff during evening hours/overnight in the chart and continues to show progress with engagement. 03/11/21: Continue with ativan 1 mg BID po, canceled IM as he is agreeing to voluntary po. Given steady improvement over the last 1 week consistent with expected timeline for symptom improvement from Emsam patch he may no longer need longer term care option if improvement persists at this rate. If progress stalls or regression occurs then will reconsider if longer term option for treatment is required. 03/10/21: Reduce ativan to 1 mg BID due to dizziness, low BP and possible fall yesterday. Will discontinue lovenox per his request and since he is now consistently moving around throughout the day and at night, discussed risk of blood clots if he doesn't continue to move around and ambulate frequently which he vocalized understanding of and agreement with. Given improvement in nutritional intake will hold off on rechecking labwork for now, will get repeat labs in 1 week on 03/14. 03/09/21: Reviewed interim progress. Continue Emsam patch and ativan 2mg BID trial-will monitor for excessive sedation. 03/08/21: Ativan 2 mg BID trial. 03/07/21: patient seen by neurology, appreciate input, seems severe vegetative symptoms due to depression though last few doses of Ativan have been more effective than previous. Continue Ativan 1 mg po BID (IM for refusal). Attempt to replete K with powder dissolved in juice. 03/04/21: will explore personal assisted as concerns he will not improve to point he can make meals/meet requirements to return to [facility] during this stay. 03/03/21--continue same. Cannot attempt coadmin with stimulant trial for hypersomnia as contraindicated with MAOI. No medical decompensation that would necessitate referral to medical or seeking court order for ECT. At minimum beha viors are challenging but more appropriate when willing to interact with staff. Need to consider longer term care options given slow progression. 03/02/21--interim care reviewed. Continue EMSAM and Lovenox injection. 03/01/21--Day 9 of Emsam patch. Continuing with behavioral plan to encourage behavioral activation-he was provided with plan with goals of having him come out of his room to eat meals, cooperate with repositioning, stand up when his sheets are changed/or if he prefers to stay in bed until the evening then clean sheets can be provided for him to put on the bed or request help putting on the bed in the evening, and continue independently voiding in his bedside urinal, shower can be started for him but he should be encouraged to get into the shower on his own, encourage him to address basic hygiene by continuing to provide him with easy access to his toothbrush, shampoo, etc. 02/28/21--Day 8 of Emsam patch. Now seeing new pattern of daily food intake which is encouraging. Continues to present with regressed behaviors and refusal to interact during the day. 02/27/21--Continue with Emsam patch. Getting out of bed more in the evenings and eating more. Lack of engagement during the day was volitional-pulling blanket over his head after he saw me enter his room. Also becoming more irritable with staff when he is encouraged to do more on his own for behavioral activation. 02/26/21-Continue with Emsam patch. 304 status granted. Ate last night and interacted with staff but no engagement today. 02/25/21--Continues to demonstrate severe depression with neurovegetative symptoms with no engagement with staff. Behavioral plan challenged by finding a reward/incentive that he enjoys. Continuing to encourage behavioral activation. Petitioned for 304 status with hearing scheduled for tomorrow given ongoing symptom burden and need for ongoing treatment. Remains on lovenox for DVT prophylaxis. Continue with Emsam patch. 02/24/21--Remains isolative and will not engage verbally. Encouragingly is attending slightly more to some of his ADLs, will continue with behavioral plan in hopes to continue encouraging behavioral activation although food does not seem to be a good motivator/reward for him. Will continue to think about other possible motivators for him to help encourage increased activity, po intake and engagement with therapeutic milieu. No signs of HTN or other side effects from MAOI at this point. 02/23/21--Continues to demonstrate neurovegetative symptoms of depression, remaining in bed most of the day but sometimes more engagement in the evenings. Will implement behavioral plan to encourage behavioral activation to treat neurovegetative symptoms in conjunction with Emsam as well as to encourage increased participation with ADLs. Nursing to provide him with tools to help him eat and promote good hygiene (brining in meals, supplies to wash up) and then if he does this independently will bring in ice cream or chips as reward to see if this helps with activation and increased po intake. 02/22/21--neurologic work up with EEG and brain MRI unremarkable, continue Emsam trial. 02/21/21--complex differential--depression with psychotic features in a patient with bipolar disorder most likely, certainly not typcial catatonia. No hx of hyperphagia or hypersexuality known that would suggest Kleine-Hess syndrome. Will proceed with Emsam patch 6 mg trial as only means to administer antidepressant. Will check with an ECT facility to determine if can treat patient if pursue a court order (will await emsam trial first). MRI brain (pat ient will need various x rays first as can't answer screening questions, no hx of pacemaker on chart). bedside EEG to rule out status epilepticus. 02/19/21--non-formulary request for Emsam patch. Hasn't taken antidepressants for at least 6 weeks. Would reconsider current med doses when this becomes available. without antidepressant he will continue to decompensate medically and is at significant risk of further decompensation. 02/17/21--lytes, Bun/Cr improved; given sleep phase shift desirable to shift antipsychotic to pm meal with IM Zyprexa for refusal. Bedside EEG likely poor quality/low yeild but consider if no improvement. 02/16/21--Reviewed care by Dr. Garces in italics. will d/c IM Ativan in favor of Zyprexa IM for failure to take Latuda. Does take Lorazepam prn PO, adjust dose and frequency and monitor use. Will repeat labs and PO intake so variable and hard to track. 02/09/2021--admitted to U. Ativan 2mg SL TID ordered. Track Is&Os. Vitals BID. 02/10/2021--continue with ativan 2mg TID SL. Showing significant improving in catatonic symptoms since ativan trial last night. If he continues to walk around no need for DVT prophylaxis. Will consider if 302 needs to be converted to 303 based on progress today. 02/11/2021--continue with scheduled ativan. Less engagement today but still eating and drinking. Plan for likely 303 given his inability/reluctance to engage in treatment. Reviewed outside records. 02/12/2021--continues to refuse ativan today and won't engage with anyone nor leave his bed except to use the bathroom and to eat at night. Given some movement in the evening and to the bathroom he doesn't require DVT prophylaxis at this time but this remains a concern should he clinically worsen and will continue to monitor his nutritional and medical status closely. 02/13/2021--placed on 303 status due to ongoing decompensation due to catatonia including refusal of medication, not eating, not drinking, not communicating with anyone and lying in bed all day. Once catatonia begins to improve with treatment will aim to start latuda which helped previously. Sharps to require medications over objection for ativan to treat catatonia. If catatonia does not respond quickly to ativan then will consider if DVT prophylaxis should be initiated. 02/14/2021--no significant change in behaviors with additional of scheduled ativan 2 mg BID as medication over objection. Given concern for skin breakdown consult was placed for wound nurse. Given concern for possible DVT and after discussion with hospitalist will begin lovenox 40mg subQ daily. David was able to vocalize consent for this as he remains mute and unable/unwilling to engage but explained the risks, benefits, alternatives and rationale for lovenox and that we will be offering this to him. 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 02/15/2021--Have ruled out catatonia given inconsistent response to ativan trial, multiple observed examples of volitional movement immediately following periods of patient lying in bed and mute. Subsequent catatonia scales have been negative and patient feels that his symptoms represent withdrawn features of anxiety and depression. Given bipolar depression with neurovegetative features will start latuda. Encouragingly he is eating more and drinking more and got out of bed twice last night. Risk Factors Assessment Male: Yes : Yes Do You Have Access To A Gun?: No (in supportive living enviornment, pt unable to answer ) Mental Health Diagnoses: Yes Previous Psychiatric Hospitalization: Yes Protective Factors Assessment Employed: No Interval History Identifying Information 40 yo man with history of catatonia, depression, schizoaffective disorder admitted due to concern for decompensation with failure of self-care at [facility]. Admitted on 302, now 305. Chief Complaint "I slept well last night". Review of Systems Sleep Information Total Hours of Sleep: 8 Sleep Comments: Patient maintained on Q15 minute checks. Meal Information Percent Meal Consumed - Breakfast: 0 Percent Meal Consumed - Lunch: 75 Percent Meal Consumed - Dinner: 100 Nutrition Comment: David did come out at 1400 and ate his meal. Subjective Subjective Patient was seen & assessed and interval progress reviewed with treatment team nursing and social work. David continues to isolate to his room except for meals. This afternoon he is lying in bed with the blinds all pulled down in his room. He notes his mood is "depressed" but that he slept well last night. Denies any medication side effects. We discuss goal of improving attention to hygiene by showering more frequently, ideally every 2-3 days, which he states he is willing to consider trying. He also expresses interest in considering latuda in place of olanzapine. Discussed with him that I will review prior records and he remains consistent in his desire to try it then we could consider it instead of olanzapine though he has found olanzapine very helpful for sleep. Physical Exam Psychiatric Orientation: alert and oriented x 3 Apperance: + disheveled Eye Contact: + poor eye contact Motor Behavior: no abnormal motor movements Speech: normal rate/rhythm/volume of speech Affect: + flat affect Mood: + depressed mood Thought Process: + concrete thought process Thought Content: + paranoid and + delusions Suicidal Thoughts: denies suicidal intent Homicidal Thoughts: denies homicidal thoughts Hallucinations: no auditory hallucinations and no visual hallucinations Cognition: recent memory grossly intact, remote memory grossly intact, attention grossly intact and language grossly intact Estimated Intelligence: consistent with education level Insight: + impaired insight Judgement: + impaired judgement Vital Signs (Past 24 Hours) Last Vital Signs Temp 37.3 C 05/17/21 22:19 Pulse 80 05/12/21 06:46 Resp 16 05/12/21 06:46 BP 118/77 05/12/21 06:46 Pulse Ox 94 04/03/21 20:37 Results & Data ([facility]) Current Inpatient Medications Current Inpatient Medications: Current Inpatient Medications Acetaminophen (Acetaminophen 325 Mg Tab) 650 mg PO Q4H PRN PRN Reason: Headache or Minor Fever Stop: 06/11/21 10:27 Last Admin: 03/16/21 10:34 Dose: 325 mg Documented by: Al Hydrox/Mg Hydrox/Simethicone (Aluminum/Magnesium Susp 30 Ml Udc) 30 ml PO Q4H PRN PRN Reason: GI Upset Stop: 06/11/21 10:27 Benztropine Mesylate (Benztropine Mesylate 1 Mg Tab) 1 mg PO Q6 PRN PRN Reason: Muscle Spasm Stop: 06/11/21 08:40 Bismuth Subsalicylate (Bismuth Subsalicylate Liqd 236 Ml) 15 ml PO PRN PRN PRN Reason: Loose Stool Stop: 06/11/21 02:27 Bupropion HCl (Bupropion Xl 150 Mg Tabcr) 150 mg PO DAILY [facility] Stop: 06/14/21 11:59 Last Admin: 05/18/21 11:25 Dose: 150 mg Documented by: Folic Acid (Folic Acid 1 Mg Tab) 1 mg PO TODAY@1999 [facility] Stop: 06/13/21 19:59 Last Admin: 05/17/21 20:21 Dose: 1 mg Documented by: Lamotrigine (Lamotrigine 25 Mg Tab) 50 mg PO TODAY@1999 [facility] Stop: 06/13/21 19:59 Last Admin: 05/17/21 20:21 Dose: 50 mg Documented by: Lorazepam (Lorazepam 1 Mg Tab) 1 mg PO Q6 PRN PRN Reason: Anxiety/Agitation Stop: 06/11/21 08:14 Last Admin: 04/04/21 20:52 Dose: 1 mg Documented by: Magnesium Hydroxide (Magnesium Hydroxide Susp 30 Ml Udc) 30 ml PO DAILY PRN PRN Reason: Constipation Stop: 06/11/21 10:27 Olanzapine (Olanzapine 20 Mg Tablet) 20 mg PO TODAY@1999 [facility] Stop: 06/13/21 19:59 Last Admin: 05/17/21 20:21 Dose: 20 mg Documented by: Sodium Chloride (Sodium Chloride 0.65% Na Soln 45 Ml ([place])) 1 - 2 sprays NA PRN PRN PRN Reason: Nasal Dryness/Congestion Stop: 06/11/21 10:27 Trazodone HCl (Trazodone Hcl 100 Mg Tab) 100 mg PO HS PRN PRN Reason: insomnia Stop: 05/27/21 21:59 Mental Health & Subst Abuse Tx Psychiatrist Name of Psychiatrist: Oniel Negron Psychiatrist's Date of Appointment with Psychiatrist: 03/13/21 Time of Appointment with Psychiatrist: 9:20am Psychiatric Appointment Comment: Zoom *is on waiting list for appt. sooner Therapist Name of Therapist: Unknown [employer] Developer Name of [employer] Web Developer: Mauri AVILAU) Post Discharge Appointments Primary Care Physician Name Of Family Doctor: Unknown
[2021-05-18] MEDS: lamoTRIgine 25 MG TAB PO SCH (20:08)
[2021-05-18] MEDS: FOLIC ACID 1 MG TAB PO SCH (20:08)
[2021-05-18] MEDS: OLANZapine 20 MG TABLET PO SCH (20:08)
[2021-05-19] MEDS: buPROPion XL 150 MG TABCR PO SCH (10:47)
--- NOTE | 2021-05-19 13:11 | Psychiatric Progress Note ---
Date of Service May 19, 2021 Impression / Recommendations Impression The patient is a 40 year old with a history of schizoaffective disorder who was admitted for failure of self-care and [facility]. His functioning is poor with inconsistent activity and PO intake despite trials of Ativan, Emsam patch, IM Zyprexa, and now Haldol on 305 commitment. For first 2 months of his stay he was not taking PO meds consistently and was largely mute though this has improved dramatically following court order for ECT. He remains resistant to groups but is motivated to discuss housing options and take PO medication. He is now expressing preferences with regards to his care. He remains in need of inpatient psychiatric care and has no current housing which he will require housing with level of supervision and support to avoid regression back to lack of eating/self-care, etc as seen prior to his current admission. 05/19/21: remains largely isolative to his room, in bed for most of the day, discussed goal of increasing activity and attention to hygiene. Plan: continue current meds and treatment plan, will need outpatient commitment. Reviewed past medication trials again, he was taking latuda prior to admission and self- discontinued it as he found it unhelpful per review (1) Schizoaffective disorder: 05/19/21: continue current medications, encouraging regular showering. 05/18/21: continue current medications. housing remains biggest barrier to discharge. encouraging increase in attention to hygiene. 05/09/21: continue current medications. Next diversion mtg will be 05/15/20 at 1:30pm. 05/08/21: continue current medications. Meeting tomorrow to discuss potential housing and outpatient options should he continue to show progress and stability in his ability to provide for self-care needs. 05/07/21: Increasing Wellbutrin to 150mg XL qAM. 05/06/21: increase olanzapine to 20mg qhs. Continue other medications. SW discussing with his outpatient CM potential housing options. 05/05/21: continue current medications. 05/04/21: increase olanzapine to 15 mg qhs and discontinue haldol. Continue other medications. 05/03/21: continue current medications-trazodone 100mg qhs, haldol 10 mg qam, lamictal 25 mg qd, olanzapine 10 mg qhs, wellbutrin SR 100mg qd. Goal will be to move to antipsychotic monotherapy. Will discuss plan to taper haldol with David when he is able to re-engage and state his preferences. 05/01/21: restart Wellbutrin 100 mg SR Qam with plan to titrate. stated he will be in contempt of court if doesn't complete a 4 hr parenting course as a requirement of their divorce proceeding. Letter provided with dates of hospitalization. 04/30/21: d/c hs Haldol, titrate Zyprexa 10 mg po qhs. 04/29/21: refusing ECT at this time, withdrew referral to [facility] and Dr. Mccarthy and hospital defense attorney notified, staff updated [facility] and is now officially on the waitlist, sw to schedule meeting with CM. Refusing COPPOLA of Haldol but accepting PO. 04/28/21: Re-reviewed risks/benefits of ECT and patient states "I'd still consider it". 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 Discussed that at least for near future I'd like him to take both with the hopes he will still agree to a COPPOLA. Risks/benefits/alternatives reviewed re: Lamictal for mood stabilization. Discussion included but was not limited to slow titration to decrease risks of Huey's Yamil syndrome. Patient agrees to hold med/notify current prescriber of rash immediately. Consider Wellbutrin restart soon, has dopaminergic properties so don't want to exacerbate psychosis. 04/27/21: Patient voices he does not want ECT at this time but would like more time to think about it/discuss. Increase trazodone. Therapeutic time outside when security able/appropriate. He declines COPPOLA Haldol at this time. 04/26/21: continue haldol 10mg BID and trazodone 50mg qhs for insomnia. Awaiting ECT bed availability. 04/25/21: adding trazodone 50mg qhs for insomnia. 04/24/21: increase haldol back to 10mg BID as he continued to refuse lower dose. If he remains sedentary after tomorrow will re-start lovenox. 04/23/21: reduce to haldol 5mg qhs po after discussion with David with goal of improving adherence and folic acid, will d/c lovenox. Now on 305 commitment. 04/22/21: continue haldol and folate and lovenox. Completed 305 commitment paperwork. 04/21/21: continue haldol 10mg BID po and lovenox and folic acid. Day 1 of increased movement. 04/20/21: continue current medication of haldol 10 mg BID po, not doing IM for refusal. Awaiting response from ECT referral. If he can consistently show that he is moving and walking for three days in a row then we can stop the lovenox. 04/19/21: court testimony for 30 min in front of [facility] Judge Ruest answering questions about the patients condition, prognosis, treatment course, rationale for ECT and court order, risks/benefits of ECT. She will deliberated and the hospital defense attorney forwarded the signed court order for ECT. Dr. Schmitt, Migdalia, and Mili updated. 04/16/21: Haldol 10 mg bid with IM for refusal of PO. Medicine consult appreciated. [facility] 04/13/21: attempt am dose of 5 mg Haldol, continue 10 hs with Ativan. Needs med clearance for ECT. Will hold Lovenox today as some improvement in activity. 04/12/21: continue with haldol and ativan. He was provided with legal paperwork regarding filing for ECT. 04/11/21: continue with haldol and ativan po or IM. Adding mouth checks if he accepts po haldol. Consulted hospitalist for pre-ECT physical exam. He refuses attempts to clip his fingernails. 04/10/21: Add folate supplement. Potassium level improving. Sent out labs for copper and ceruloplasmin. Engaged verbally with multiple staff and briefly watched movie with peers today. Started process for court-ordered ECT. 04/09/21: continue haldol and ativan po or IM. Working on process for consideration for court-ordered ECT. 04/08/21: continue haldol 10mg po or IM and ativan po or IM. Took potassium supplementation in juice yesterday will recheck labs in a few days. Agree with plan to pursue court order for ECT given non-responsiveness to other medication trials so far and his refusal to consistently take any po medication options. 04/07/21: limited PO, remains hypokalemic but overall labs stable 04/06/21: repeat labs in am, consider medicine consult (currently no acute indication for transfer), previous experience was he was less active when prescribed Zyprexa so monitor risks/benefits of Haldol. 04/05/21: attempt to replete K again, Discontinue Emsam patch, pursue court order for ECT when offices reopen after hol. Continue IM Haldol with Ativan trial for now. 04/04/21: Haldol increased to 10 mg PO or IM yesterday with no change overnight, will shift to pm. Will d/c Emsam patch after tomorrow's dose as no sustained benefit and will need to pursue court order for ECT after holiday weekend. 03/31/21: increase haldol to 5 mg po or IM and ativan 1mg po or IM. Continue Emsam patch. 03/30/21: continue haldol 2.5 mg po or IM and ativan 1mg po or IM. Continue Emsam patch. Walked three laps around the unit with encouragement today. 03/29/21: Starting haldol 2.5 mg po or IM and ativan 1mg po or IM for suspected psychosis with negativism, lack of personal care, thought blocking/negative sx and avolition. Continue Emsam patch. Discontinued modafinil. 03/28/21: continue to offer medications. Gave ativan 1mg IM x1 last night after additional episode of spitting. Repeat labwork today showing improvement in nutritional status (albumin and total protein now normal and BUN/CR wnl). 03/27/21: continue to offer medications, he continues to refuse. Continuing to explore ways to involve his extended family or other aspects of care which could incentive his engagement in care. May need to consider if a less sedating antipsychotic medication should be re-trialed. [facility] 03/26/21: continue current medications, refused modafinil but will try again over next few days. Continue with ativan 1mg BIDM po 03/25/21: start modafinil 50 mg qAM, will monitor carefully for any interactions with MAOI. Discontinued ativan IM for refusal of po. Reducing ativan dosing from TID po to BID po in the afternoon to avoid combining morning stimulant with morning benzo as this would be counterproductive to stimulant trial. 03/24/21: continue current medications. 03/23/21: labwork done today and reviewed no significant changes from prior labwork, still has elevated Cl. Continue with lovenox, emsam patch, and ativan 1 mg po TID (with BID IM for refusal) 03/22/21: labs in am and resume Lovenox given regression past 3 days. 03/18/21: unable to care for self outside of hospital, continue Emsam patch, will not increase as I do not believe he can follow appropriate dietary restrictions at higher doses. 03/17/21: Ativan 1 mg PO TID (inject up to BID for refusal). 03/16/21: resume IM Ativan for refusal of PO Ativan. 03/15/21: Continue current medications. Making referral to [facility] given slow progression and he is still very far from his baseline which will require extended treatment and thus he will be best served by a longer term treatment a [facility]. 03/14/21: Continue with current medications. Reviewed labwork, K+ improved but still signs of poor nutrition. Elevated ALT could be side effect from Emsam patch (occurs in <1/100 - 05/999 pts), will continue to monitor. may be able to consider transition to a po medication if he remains consistent with accepting po medications but for now Emsam patch benefit is felt to outweigh risk of s light ALT elevation. 03/13/21: Continue with current medications. Supports from [employer] will visit tomorrow. Labwork CMP tomorrow morning to ensure correction of hypokalemia. 03/12/21: Continue with current medications. Discussed with treatment team having his [facility] supports come for a visit and they will visit on . Reviewed his interactions with staff during evening hours/overnight in the chart and continues to show progress with engagement. 03/11/21: Continue with ativan 1 mg BID po, canceled IM as he is agreeing to voluntary po. Given steady improvement over the last 1 week consistent with expected timeline for symptom improvement from Emsam patch he may no longer need longer term care option if improvement persists at this rate. If progress stalls or regression occurs then will reconsider if longer term option for treatment is required. 03/10/21: Reduce ativan to 1 mg BID due to dizziness, low BP and possible fall yesterday. Will discontinue lovenox per his request and since he is now consistently moving around throughout the day and at night, discussed risk of blood clots if he doesn't continue to move around and ambulate frequently which he vocalized understanding of and agreement with. Given improvement in nutritional intake will hold off on rechecking labwork for now, will get repeat labs in 1 week on 03/14. 03/09/21: Reviewed interim progress. Continue Emsam patch and ativan 2mg BID trial-will monitor for excessive sedation. 03/08/21: Ativan 2 mg BID trial. 03/07/21: patient seen by neurology, appreciate input, seems severe vegetative symptoms due to depression though last few doses of Ativan have been more effective than previous. Continue Ativan 1 mg po BID (IM for refusal). Attempt to replete K with powder dissolved in juice. 03/04/21: will explore personal longterm as concerns he will not improve to point he can make meals/meet requirements to return to [facility] during this stay. 03/03/21--continue same. Cannot attempt coadmin with stimulant trial for hypersomnia as contraindicated with MAOI. No medical decompensation that would necessitate referral to medical or seeking court order for ECT. At minimum behaviors are challenging but more appropriate when willing to interact with staff. Need to consider longer term care options given slow progression. 03/02/21--interim care reviewed. Continue EMSAM and Lovenox injection. 03/01/21--Day 9 of Emsam patch. Continuing with behavioral plan to encourage behavioral activation-he was provided with plan with goals of having him come out of his room to eat meals, cooperate with repositioning, stand up when his sheets are changed/or if he prefers to stay in bed until the evening then clean sheets can be provided for him to put on the bed or request help putting on the bed in the evening, and continue independently voiding in his bedside urinal, shower can be started for him but he should be encouraged to get into the shower on his own, encourage him to address basic hygiene by continuing to provide him with easy access to his toothbrush, shampoo, etc. 02/28/21--Day 8 of Emsam patch. Now seeing new pattern of daily food intake which is encouraging. Continues to present with regressed behaviors and refusal to interact during the day. 02/27/21--Continue with Emsam patch. Getting out of bed more in the evenings and eating more. Lack of engagement during the day was volitional-pulling blanket over his head after he saw me enter his room. Also becoming more irritable with staff when he is encouraged to do more on his own for behavioral activation. 02/26/21-Continue with Emsam patch. 304 status granted. Ate last night and interacted with staff but no engagement today. 02/25/21--Continues to demonstrate severe depression with neurovegetative sy mptoms with no engagement with staff. Behavioral plan challenged by finding a reward/incentive that he enjoys. Continuing to encourage behavioral activation. Petitioned for 304 status with hearing scheduled for tomorrow given ongoing symptom burden and need for ongoing treatment. Remains on lovenox for DVT prophylaxis. Continue with Emsam patch. 02/24/21--Remains isolative and will not engage verbally. Encouragingly is attending slightly more to some of his ADLs, will continue with behavioral plan in hopes to continue encouraging behavioral activation although food does not seem to be a good motivator/reward for him. Will continue to think about other possible motivators for him to help encourage increased activity, po intake and engagement with therapeutic milieu. No signs of HTN or other side effects from MAOI at this point. 02/23/21--Continues to demonstrate neurovegetative symptoms of depression, remaining in bed most of the day but sometimes more engagement in the evenings. Will implement behavioral plan to encourage behavioral activation to treat neurovegetative symptoms in conjunction with Emsam as well as to encourage increased participation with ADLs. Nursing to provide him with tools to help him eat and promote good hygiene (brining in meals, supplies to wash up) and then if he does this independently will bring in ice cream or chips as reward to see if this helps with activation and increased po intake. 02/22/21--neurologic work up with EEG and brain MRI unremarkable, continue Emsam trial. 02/21/21--complex differential--depression with psychotic features in a patient with bipolar disorder most likely, certainly not typcial catatonia. No hx of hyperphagia or hypersexuality known that would suggest Kleine-Hess syndrome. Will proceed with Emsam patch 6 mg trial as only means to administer antidepressant. Will check with an ECT facility to determine if can treat patient if pursue a court order (will await emsam trial first). MRI brain (patient will need various x rays first as can't answer screening questions, no hx of pacemaker on chart). bedside EEG to rule out status epilepticus. 02/19/21--non-formulary request for Emsam patch. Hasn't taken antidepressants for at least 6 weeks. Would reconsider current med doses when this becomes available. without antidepressant he will continue to decompensate medically and is at significant risk of further decompensation. 02/17/21--lytes, Bun/Cr improved; given sleep phase shift desirable to shift antipsychotic to pm meal with IM Zyprexa for refusal. Bedside EEG likely poor quality/low yeild but consider if no improvement. 02/16/21--Reviewed care by Dr. Garces in italics. will d/c IM Ativan in favor of Zyprexa IM for failure to take Latuda. Does take Lorazepam prn PO, adjust dose and frequency and monitor use. Will repeat labs and PO intake so variable and hard to track. 02/09/2021--admitted to [facility]. Ativan 2mg SL TID ordered. Track Is&Os. Vitals BID. 02/10/2021--continue with ativan 2mg TID SL. Showing significant improving in catatonic symptoms since ativan trial last night. If he continues to walk around no need for DVT prophylaxis. Will consider if 302 needs to be converted to 303 based on progress today. 02/11/2021--continue with scheduled ativan. Less engagement today but still eating and drinking. Plan for likely 303 given his inability/reluctance to enga ge in treatment. Reviewed outside records. 02/12/2021--continues to refuse ativan today and won't engage with anyone nor leave his bed except to use the bathroom and to eat at night. Given some movem ent in the evening and to the bathroom he doesn't require DVT prophylaxis at this time but this remains a concern should he clinically worsen and will continue to monitor his nutritional and medical status closely. 02/13/2021--placed on 303 status due to ongoing decompensation due to catatonia including refusal of medication, not eating, not drinking, not communicating with anyone and lying in bed all day. Once catatonia begins to improve with treatment will aim to start latuda which helped previously. [place] to require medications over objection for ativan to treat catatonia. If catatonia does not respond quickly to ativan then will consider if DVT prophylaxis should be initiated. 02/14/2021--no significant change in behaviors with additional of scheduled ativan 2 mg BID as medication over objection. Given concern for skin breakdown consult was placed for wound nurse. Given concern for possible DVT and after discussion with hospitalist will begin lovenox 40mg subQ daily. David was able to vocalize consent for this as he remains mute and unable/unwilling to engage but explained the risks, benefits, alternatives and rationale for lovenox and that we will be offering this to him. 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 02/15/2021--Have ruled out catatonia given inconsistent response to ativan trial, multiple observed examples of volitional movement immediately following periods of patient lying in bed and mute. Subsequent catatonia scales have been negative and patient feels that his symptoms represent withdrawn features of anxiety and depression. Given bipolar depression with neurovegetative features will start latuda. Encouragingly he is eating more and drinking more and got out of bed twice last night. Risk Factors Assessment Male: Yes : Yes Do You Have Access To A Gun?: No (in supportive living enviornment, pt unable to answer ) Mental Health Diagnoses: Yes Previous Psychiatric Hospitalization: Yes Protective Factors Assessment Employed: No Interval History Identifying Information 40 yo man with history of catatonia, depression, schizoaffective disorder admitted due to concern for decompensation with failure of self-care at [facility]. Admitted on 302, now 305. Chief Complaint "I'm tired". Review of Systems Sleep Information Total Hours of Sleep: 5.75 Sleep Comments: Patient maintained on Q15 minute checks. Meal Information Percent Meal Consumed - Breakfast: 0 Percent Meal Consumed - Lunch: 75 Percent Meal Consumed - Dinner: 100 Nutrition Comment: David did come out at 1400 and ate his meal. Subjective Subjective Patient was seen & assessed and interval progress reviewed with treatment team nursing and social work. Continues to come out of his room for meals and snacks but otherwise isolative to his bed. Did not shower yesterday. Taking his medications. States he feels tired which he attributes to poor sleep. Physical Exam Psychiatric Orientation: alert and oriented x 3 Apperance: + disheveled Eye Contact: + fair eye contact Motor Behavior: steady gait and station and no abnormal motor movements; n EPS Speech: normal rate/rhythm/volume of speech Affect: + flat affect Mood: + depressed mood, + anxious mood and + irritable mood Thought Process: + concrete thought process Thought Content: reality based without delusions Suicidal Thoughts: denies suicidal thoughts Homicidal Thoughts: denies homicidal thoughts Hallucinations: no auditory hallucinations and no visual hallucinations Cognition: recent memory grossly intact, remote memory grossly intact, attention grossly intact and language grossly intact Estimated Intelligence: consistent with education level Insight: + impaired insight Judgement: + impaired judgement Vital Signs (Past 24 Hours) Last Vital Signs Temp 36.4 C L 05/19/21 06:00 Pulse 76 05/19/21 06:00 Resp 16 05/19/21 06:00 BP 102/71 05/19/21 06:00 Pulse Ox 94 04/03/21 20:37 Results & Data ([facility]) Current Inpatient Medications Current Inpatient Medications: Current Inpatient Medications Acetaminophen (Acetaminophen 325 Mg Tab) 650 mg PO Q4H PRN PRN Reason: Headache or Minor Fever Stop: 06/11/21 10:27 Last Admin: 03/16/21 10:34 Dose: 325 mg Documented by: Al Hydrox/Mg Hydrox/Simethicone (Aluminum/Magnesium Susp 30 Ml Udc) 30 ml PO Q4H PRN PRN Reason: GI Upset Stop: 06/11/21 10:27 Benztropine Mesylate (Benztropine Mesylate 1 Mg Tab) 1 mg PO Q6 PRN PRN Reason: Muscle Spasm Stop: 06/11/21 08:40 Bismuth Subsalicylate (Bismuth Subsalicylate Liqd 236 Ml) 15 ml PO PRN PRN PRN Reason: Loose Stool Stop: 06/11/21 02:27 Bupropion HCl (Bupropion Xl 150 Mg Tabcr) 150 mg PO DAILYBL OG Stop: 06/14/21 11:59 Last Admin: 05/19/21 10:47 Dose: 150 mg Documented by: Folic Acid (Folic Acid 1 Mg Tab) 1 mg PO TODAY@[facility] Stop: 06/13/21 19:59 Last Admin: 05/18/21 20:08 Dose: 1 mg Documented by: Lamotrigine (Lamotrigine 25 Mg Tab) 50 mg PO TODAY@[facility] Stop: 06/13/21 19:59 Last Admin: 05/18/21 20:08 Dose: 50 mg Documented by: Lorazepam (Lorazepam 1 Mg Tab) 1 mg PO Q6 PRN PRN Reason: Anxiety/Agitation Stop: 06/11/21 08:14 Last Admin: 04/04/21 20:52 Dose: 1 mg Documented by: Magnesium Hydroxide (Magnesium Hydroxide Susp 30 Ml Udc) 30 ml PO DAILY PRN PRN Reason: Constipation Stop: 06/11/21 10:27 Olanzapine (Olanzapine 20 Mg Tablet) 20 mg PO TODAY@[facility] Stop: 06/13/21 19:59 Last Admin: 05/18/21 20:08 Dose: 20 mg Documented by: Sodium Chloride (Sodium Chloride 0.65% Na Soln 45 Ml (Rains)) 1 - 2 sprays NA PRN PRN PRN Reason: Nasal Dryness/Congestion Stop: 06/11/21 10:27 Trazodone HCl (Trazodone Hcl 100 Mg Tab) 100 mg PO HS PRN PRN Reason: insomnia Stop: 05/27/21 21:59 Mental Health & Subst Abuse Tx Psychiatrist Name of Psychiatrist: Oniel Negron Psychiatrist's Date of Appointment with Psychiatrist: 03/13/21 Time of Appointment with Psychiatrist: 9:20am Psychiatric Appointment Comment: Zoom *is on waiting list for appt. sooner Therapist Name of Therapist: Unknown Electroless Plater Name of Electroless Plater: Mauri AVILAU) Post Discharge Appointments Primary Care Physician Name Of Family Doctor: Unknown
[2021-05-19] MEDS: FOLIC ACID 1 MG TAB PO SCH (20:04)
[2021-05-19] MEDS: OLANZapine 20 MG TABLET PO SCH (20:04)
[2021-05-19] MEDS: lamoTRIgine 25 MG TAB PO SCH (20:04)
[2021-05-20] MEDS: buPROPion XL 150 MG TABCR PO SCH (11:40)
--- NOTE | 2021-05-20 15:59 | Psychiatric Progress Note ---
Date of Service May 20, 2021 Impression / Recommendations Impression The patient is a 40 year old with a history of schizoaffective disorder who was admitted for failure of self-care and worsening decompensation at care home. His functioning is poor with inconsistent activity and PO intake despite trials of Ativan, Emsam patch, IM Zyprexa, and now Haldol on 305 commitment. For first 2 months of his stay he was not taking PO meds consistently and was largely mute though this has improved dramatically following court order for ECT. He remains resistant to groups but is motivated to discuss housing options and take PO medication. He is now expressing preferences with regards to his care. He remains in need of inpatient psychiatric care and has no current housing which he will require housing with level of supervision and support to avoid regression back to lack of eating/self-care, etc as seen prior to his current admission. 05/20/21: remains largely isolative to his room, in bed for most of the day, discussed goal of increasing activity and attention to hygiene. Plan: continue current meds and treatment plan, will need outpatient commitment. Will explore process for prior auth for latuda and if granted could cross-taper from zyprexa to latuda. (1) Schizoaffective disorder: (2) Avolition: (3) Depression: see impression above Risk Factors Assessment Male: Yes : Yes Do You Have Access To A Gun?: No (in supportive living enviornment, pt unable to answer ) Mental Health Diagnoses: Yes Previous Psychiatric Hospitalization: Yes Protective Factors Assessment Employed: No Interval History Identifying Information 40 yo man with history of catatonia, depression, schizoaffective disorder admitted due to concern for decompensation with failure of self-care at [facility]. Admitted on 302, now 305. Chief Complaint "I'm alright". Review of Systems Sleep Information Total Hours of Sleep: 6.5 Sleep Comments: Patient maintained on Q15 minute checks. Meal Information Percent Meal Consumed - Breakfast: 100 Percent Meal Consumed - Lunch: 100 Percent Meal Consumed - Dinner: 100 Nutrition Comment: David did come out at 1400 and ate his meal. Subjective Subjective Patient was seen & assessed and interval progress reviewed with treatment team nursing and social work. Remains isolative to room except for meals. Spoke with his dad and sister on the phone last night. Reported his mood as "ambivalent". Today he reports ongoing feeling that he is only achieving "light sleep states" and not "deep sleep". Praised him for having window blind slightly open today with some sunshine in his room, continues to keep it dark with no lights on and stays in bed under the covers though he invited me to sit in the chair in his room today during our discussion. Discussed going outside again which he is interested in, discussed possibly doing that tomorrow and goal of showering this afternoon which he states is his plan. Reviewed past medications he's found helpful. He clarified that he last took latuda in 2018 and then couldn't get it covered by insurance and so had to stop. He finds zyprexa helpful for sleep but thinks it may contribute to fatigue. Reviewed his reasons for stopping his medications which likely contributing to depression episode leading to this admission and he states he lowered the doses due to "circulation concerns" and stopped lithium because he was experiencing tremor. He denies any other current medication side effects. Physical Exam Psychiatric Orientation: alert and oriented x 3 Apperance: + disheveled Eye Contact: + fair eye contact Motor Behavior: no abnormal motor movements; n EPS and n akathisia Speech: normal rate/rhythm/volume of speech Affect: + flat affect Mood: + depressed mood Thought Process: + looseness of associations and + concrete thought process Thought Content: + paranoid Suicidal Thoughts: denies suicidal thoughts Homicidal Thoughts: denies homicidal thoughts Hallucinations: no auditory hallucinations and no visual hallucinations Cognition: recent memory grossly intact, remote memory grossly intact, attention grossly intact and language grossly intact Estimated Intelligence: consistent with education level Insight: + impaired insight Judgement: + severely impaired judgement Vital Signs (Past 24 Hours) Last Vital Signs Temp 36.9 C 05/20/21 06:00 Pulse 86 05/20/21 06:00 Resp 16 05/20/21 06:00 BP 111/78 05/20/21 06:00 Pulse Ox 94 04/03/21 20:37 Results & Data ([facility]) Current Inpatient Medications Current Inpatient Medications: Current Inpatient Medications Acetaminophen (Acetaminophen 325 Mg Tab) 650 mg PO Q4H PRN PRN Reason: Headache or Minor Fever Stop: 06/11/21 10:27 Last Admin: 03/16/21 10:34 Dose: 325 mg Documented by: Al Hydrox/Mg Hydrox/Simethicone (Aluminum/Magnesium Susp 30 Ml Udc) 30 ml PO Q4H PRN PRN Reason: GI Upset Stop: 06/11/21 10:27 Benztropine Mesylate (Benztropine Mesylate 1 Mg Tab) 1 mg PO Q6 PRN PRN Reason: Muscle Spasm Stop: 06/11/21 08:40 Bismuth Subsalicylate (Bismuth Subsalicylate Liqd 236 Ml) 15 ml PO PRN PRN PRN Reason: Loose Stool Stop: 06/11/21 02:27 Bupropion HCl ([facility] 150 Mg [facility]cr) [facility] Stop: 06/14/21 11:59 Last Admin: 05/20/21 11:40 Dose: 150 mg Documented by: Folic Acid (Folic Acid 1 Mg Tab) 1 mg PO TODAY@1999 [facility] Stop: 06/13/21 19:59 Last Admin: 05/19/21 20:04 Dose: 1 mg Documented by: Lamotrigine (Lamotrigine 25 Mg Tab) 50 mg PO TODAY@1999 [facility] Stop: 06/13/21 19:59 Last Admin: 05/19/21 20:04 Dose: 50 mg Documented by: Lorazepam (Lorazepam 1 Mg Tab) 1 mg PO Q6 PRN PRN Reason: Anxiety/Agitation Stop: 06/11/21 08:14 Last Admin: 04/04/21 20:52 Dose: 1 mg Documented by: Magnesium Hydroxide (Magnesium Hydroxide Susp 30 Ml Udc) 30 ml PO DAILY PRN PRN Reason: Constipation Stop: 06/11/21 10:27 Olanzapine (Olanzapine 20 Mg Tablet) 20 mg PO TODAY@1999 [facility] Stop: 06/13/21 19:59 Last Admin: 05/19/21 20:04 Dose: 20 mg Documented by: Sodium Chloride (Sodium Chloride 0.65% Na Soln 45 Ml ([place])) 1 - 2 sprays NA PRN PRN PRN Reason: Nasal Dryness/Congestion Stop: 06/11/21 10:27 Trazodone HCl (Trazodone Hcl 100 Mg Tab) 100 mg PO HS PRN PRN Reason: insomnia Stop: 05/27/21 21:59 Mental Health & Subst Abuse Tx Psychiatrist Name of Psychiatrist: Oniel Negron Psychiatrist's Date of Appointment with Psychiatrist: 03/13/21 Time of Appointment with Psychiatrist: 9:20am Psychiatric Appointment Comment: Zoom *is on waiting list for appt. sooner Therapist Name of Therapist: Unknown Gem Setter Name of Gem Setter: Mauri ([facility]) Post Discharge Appointments Primary Care Physician Name Of Family Doctor: Unknown
[2021-05-20] MEDS: FOLIC ACID 1 MG TAB PO SCH (21:03)
[2021-05-20] MEDS: lamoTRIgine 25 MG TAB PO SCH (21:03)
[2021-05-20] MEDS: OLANZapine 20 MG TABLET PO SCH (21:03)
--- NOTE | 2021-05-21 12:42 | Psychiatric Progress Note ---
Date of Service May 21, 2021 Impression / Recommendations Impression The patient is a 40 year old with a history of schizoaffective disorder who was admitted for failure of self-care and worsening decompensation at halfway. His functioning is poor with inconsistent activity and PO intake despite trials of Ativan, Emsam patch, IM Zyprexa, and now Haldol on 305 commitment. For first 2 months of his stay he was not taking PO meds consistently and was largely mute though this has improved dramatically following court order for ECT. He remains resistant to groups but is motivated to discuss housing options and take PO medication. He is now expressing preferences with regards to his care. He remains in need of inpatient psychiatric care and has no current housing which he will require housing with level of supervision and support to avoid regression back to lack of eating/self-care, etc as seen prior to his current admission. 05/21/21: remains largely isolative to his room, in bed for most of the day but did shower last night. Plan: consideirng cross-taper to latuda, it is not covered by insurance so will require prior auth-pharmacy faxing form today, will need outpatient commitment. (1) Schizoaffective disorder: (2) Avolition: (3) Depression: see impression above Risk Factors Assessment Male: Yes : Yes Do You Have Access To A Gun?: No (in supportive living enviornment, pt unable to answer ) Mental Health Diagnoses: Yes Previous Psychiatric Hospitalization: Yes Protective Factors Assessment Employed: No Interval History Identifying Information 40 yo man with history of catatonia, depression, schizoaffective disorder admitted due to concern for decompensation with failure of self-care at [facility]. Admitted on 302, now 305. Chief Complaint "I'm ok, how are you". Review of Systems Sleep Information Total Hours of Sleep: 8 Sleep Comments: Patient maintained on Q15 minute checks. Meal Information Percent Meal Consumed - Breakfast: 100 Percent Meal Consumed - Lunch: 100 Percent Meal Consumed - Dinner: 100 Nutrition Comment: David did come out at 1400 and ate his meal. Subjective Subjective Patient was seen & assessed and interval progress reviewed with treatment team nursing and social work. Remains isolative to his room though did shower last night. Responded to my greeting when he was out in the milieu eating breakfast. This afternoon is lying in bed with covers over his head. States his mood is "ok". Discussed plan for meeting with potential housing option on which he agrees to participate in. Denies medication side effects. Discussed plan to begin prior auth for latuda. He would like to wait and try to go outside tomorrow since it is very cold today. Physical Exam Psychiatric Orientation: alert and oriented x 3 Apperance: + disheveled Eye Contact: + poor eye contact Motor Behavior: n EPS and n akathisia Speech: normal rate/rhythm/volume of speech Affect: + flat affect Mood: + depressed mood Thought Process: + thought blocking and + concrete thought process Thought Content: reality based without delusions Suicidal Thoughts: denies suicidal intent Homicidal Thoughts: denies homicidal thoughts Hallucinations: no auditory hallucinations and no visual hallucinations Cognition: recent memory grossly intact, remote memory grossly intact, attention grossly intact and language grossly intact Insight: + impaired insight Judgement: + severely impaired judgement Vital Signs (Past 24 Hours) Last Vital Signs Temp 36.4 C 05/20/21 21:02 Pulse 86 05/20/21 06:00 Resp 16 05/20/21 06:00 BP 111/78 05/20/21 06:00 Pulse Ox 94 04/03/21 20:37 Results & Data ([facility]) Current Inpatient Medications Current Inpatient Medications: Current Inpatient Medications Acetaminophen (Acetaminophen 325 Mg Tab) 650 mg PO Q4H PRN PRN Reason: Headache or Minor Fever Stop: 06/11/21 10:27 Last Admin: 03/16/21 10:34 Dose: 325 mg Documented by: Al Hydrox/Mg Hydrox/Simethicone (Aluminum/Magnesium Susp 30 Ml Udc) 30 ml PO Q4H PRN PRN Reason: GI Upset Stop: 06/11/21 10:27 Benztropine Mesylate (Benztropine Mesylate 1 Mg Tab) 1 mg PO Q6 PRN PRN Reason: Muscle Spasm Stop: 06/11/21 08:40 Bismuth Subsalicylate (Bismuth Subsalicylate Liqd 236 Ml) 15 ml PO PRN PRN PRN Reason: Loose Stool Stop: 06/11/21 02:27 Bupropion HCl (Bupropion Xl 150 Mg Tabcr) 150 mg PO DAILYBL OG Stop: 06/14/21 11:59 Last Admin: 05/20/21 11:40 Dose: 150 mg Documented by: Folic Acid (Folic Acid 1 Mg Tab) 1 mg PO TODAY@1999 [facility] Stop: 06/13/21 19:59 Last Admin: 05/20/21 21:03 Dose: 1 mg Documented by: Lamotrigine (Lamotrigine 25 Mg Tab) 50 mg PO TODAY@1999 [facility] Stop: 06/13/21 19:59 Last Admin: 05/20/21 21:03 Dose: 50 mg Documented by: Lorazepam (Lorazepam 1 Mg Tab) 1 mg PO Q6 PRN PRN Reason: Anxiety/Agitation Stop: 06/11/21 08:14 Last Admin: 04/04/21 20:52 Dose: 1 mg Documented by: Magnesium Hydroxide (Magnesium Hydroxide Susp 30 Ml Udc) 30 ml PO DAILY PRN PRN Reason: Constipation Stop: 06/11/21 10:27 Olanzapine (Olanzapine 20 Mg Tablet) 20 mg PO TODAY@1999 [facility] Stop: 06/13/21 19:59 Last Admin: 05/20/21 21:03 Dose: 20 mg Documented by: Sodium Chloride (Sodium Chloride 0.65% Na Soln 45 Ml ([place])) 1 - 2 sprays NA PRN PRN PRN Reason: Nasal Dryness/Congestion Stop: 06/11/21 10:27 Trazodone HCl (Trazodone Hcl 100 Mg Tab) 100 mg PO HS PRN PRN Reason: insomnia Stop: 05/27/21 21:59 Mental Health & Subst Abuse Tx Psychiatrist Name of Psychiatrist: Oniel Negron Psychiatrist's Date of Appointment with Psychiatrist: 03/13/21 Time of Appointment with Psychiatrist: 9:20am Psychiatric Appointment Comment: Zoom *is on waiting list for appt. sooner Therapist Name of Therapist: Unknown Business Analyst Intern Name of Business Analyst Intern: Mauri AVILAU) Post Discharge Appointments Primary Care Physician Name Of Family Doctor: Unknown
[2021-05-21] MEDS: buPROPion XL 150 MG TABCR PO SCH (13:04)
[2021-05-21] MEDS: OLANZapine 20 MG TABLET PO SCH (21:21)
[2021-05-21] MEDS: FOLIC ACID 1 MG TAB PO SCH (21:21)
[2021-05-21] MEDS: lamoTRIgine 25 MG TAB PO SCH (21:21)
[2021-05-22] MEDS: buPROPion XL 150 MG TABCR PO SCH (11:11)
--- NOTE | 2021-05-22 13:13 | Psychiatric Progress Note ---
Date of Service May 22, 2021 Impression / Recommendations Impression The patient is a 40 year old with a history of schizoaffective disorder who was admitted for failure of self-care and worsening decompensation at long-term. His functioning is poor with inconsistent activity and PO intake despite trials of Ativan, Emsam patch, IM Zyprexa, and now Haldol on 305 commitment. For first 2 months of his stay he was not taking PO meds consistently and was largely mute though this has improved dramatically following court order for ECT. He remains resistant to groups but is motivated to discuss housing options and take PO medication. He is now expressing preferences with regards to his care. He remains in need of inpatient psychiatric care and has no current housing which he will require housing with level of supervision and support to avoid regression back to lack of eating/self-care, etc as seen prior to his current admission. 05/22/21: remains largely isolative to his room, in bed for most of the day, goal of going outside today. Plan: submitted prior authorization for latuda 60mg qd, will need outpatient commitment. (1) Schizoaffective disorder: (2) Avolition: (3) Depression: see impression above Risk Factors Assessment Male: Yes : Yes Do You Have Access To A Gun?: No (in supportive living enviornment, pt unable to answer ) Mental Health Diagnoses: Yes Previous Psychiatric Hospitalization: Yes Protective Factors Assessment Employed: No Interval History Identifying Information 40 yo man with history of catatonia, depression, schizoaffective disorder admitted due to concern for decompensation with failure of self-care at [facility]. Admitted on 302, now 305. Chief Complaint "I'm ok, how are you today?". Review of Systems Sleep Information Total Hours of Sleep: 6 Sleep Comments: Patient maintained on Q15 minute checks. Meal Information Percent Meal Consumed - Breakfast: 100 Percent Meal Consumed - Lunch: 100 Percent Meal Consumed - Dinner: 100 Nutrition Comment: David did come out at 1400 and ate his meal. Subjective Subjective Patient was seen & assessed and interval progress reviewed with treatment team nursing and social work. Remains isolative. Came out of his room for dinner last night. Stayed in bed until about 11am then came out for breakfast. States his mood is "ok", denies any medication side effects. Agreeable to going outside today. Remembers that his meeting with Kassi is tomorrow. Discussed that I submitted latuda prior auth and am awaiting response. Physical Exam Psychiatric Orientation: alert and oriented x 3 Apperance: + disheveled Eye Contact: + fair eye contact Motor Behavior: steady gait and station and no abnormal motor movements; n EPS and n akathisia Speech: normal rate/rhythm/volume of speech Affect: + constricted affect Mood: + depressed mood and + anxious mood Thought Process: + concrete thought process Thought Content: reality based without delusions Suicidal Thoughts: denies suicidal intent Homicidal Thoughts: denies homicidal thoughts Hallucinations: no auditory hallucinations and no visual hallucinations Cognition: recent memory grossly intact, remote memory grossly intact, attention grossly intact and language grossly intact Estimated Intelligence: consistent with education level Insight: + impaired insight Judgement: + impaired judgement Vital Signs (Past 24 Hours) Last Vital Signs Temp 36.4 C 05/20/21 21:02 Pulse 85 05/22/21 06:09 Resp 16 05/22/21 06:09 BP 111/72 05/22/21 06:09 Pulse Ox 94 04/03/21 20:37 Results & Data ([facility]) Current Inpatient Medications Current Inpatient Medications: Current Inpatient Medications Acetaminophen (Acetaminophen 325 Mg Tab) 650 mg PO Q4H PRN PRN Reason: Headache or Minor Fever Stop: 06/11/21 10:27 Last Admin: 03/16/21 10:34 Dose: 325 mg Documented by: Al Hydrox/Mg Hydrox/Simethicone (Aluminum/Magnesium Susp 30 Ml Udc) 30 ml PO Q4H PRN PRN Reason: GI Upset Stop: 06/11/21 10:27 Benztropine Mesylate (Benztropine Mesylate 1 Mg Tab) 1 mg PO Q6 PRN PRN Reason: Muscle Spasm Stop: 06/11/21 08:40 Bismuth Subsalicylate (Bismuth Subsalicylate Liqd 236 Ml) 15 ml PO PRN PRN PRN Reason: Loose Stool Stop: 06/11/21 02:27 Bupropion HCl (Bupropion Xl 150 Mg Tabcr) 150 mg PO DAILYBL [facility] Stop: 06/14/21 11:59 Last Admin: 05/22/21 11:11 Dose: 150 mg Documented by: Folic Acid (Folic Acid 1 Mg Tab) 1 mg PO TODAY@1999 [facility] Stop: 06/13/21 19:59 Last Admin: 05/21/21 21:21 Dose: 1 mg Documented by: Lamotrigine (Lamotrigine 25 Mg Tab) 50 mg PO TODAY@1999 [facility] Stop: 06/13/21 19:59 Last Admin: 05/21/21 21:21 Dose: 50 mg Documented by: Lorazepam (Lorazepam 1 Mg Tab) 1 mg PO Q6 PRN PRN Reason: Anxiety/Agitation Stop: 06/11/21 08:14 Last Admin: 04/04/21 20:52 Dose: 1 mg Documented by: Magnesium Hydroxide (Magnesium Hydroxide Susp 30 Ml Udc) 30 ml PO DAILY PRN PRN Reason: Constipation Stop: 06/11/21 10:27 Olanzapine (Olanzapine 20 Mg Tablet) 20 mg PO TODAY@1999 [facility] Stop: 06/13/21 19:59 Last Admin: 05/21/21 21:21 Dose: 20 mg Documented by: Sodium Chloride (Sodium Chloride 0.65% Na Soln 45 Ml ([place])) 1 - 2 sprays NA PRN PRN PRN Reason: Nasal Dryness/Congestion Stop: 06/11/21 10:27 Trazodone HCl (Trazodone Hcl 100 Mg Tab) 100 mg PO HS PRN PRN Reason: insomnia Stop: 05/27/21 21:59 Mental Health & Subst Abuse Tx Psychiatrist Name of Psychiatrist: Oniel Negron Psychiatrist's Date of Appointment with Psychiatrist: 03/13/21 Time of Appointment with Psychiatrist: 9:20am Psychiatric Appointment Comment: Zoom *is on waiting list for appt. sooner Therapist Name of Therapist: Unknown Rail Car Repairman Name of Rail Car Repairman: Mauri AVILAU) Post Discharge Appointments Primary Care Physician Name Of Family Doctor: Unknown
[2021-05-22] MEDS: OLANZapine 20 MG TABLET PO SCH (20:22)
[2021-05-22] MEDS: FOLIC ACID 1 MG TAB PO SCH (20:22)
[2021-05-22] MEDS: lamoTRIgine 25 MG TAB PO SCH (20:22)
[2021-05-23] MEDS: buPROPion XL 150 MG TABCR PO SCH (12:29)
--- NOTE | 2021-05-23 16:35 | Psychiatric Progress Note ---
Date of Service May 23, 2021 Impression / Recommendations Impression The patient is a 40 year old with a history of schizoaffective disorder who was admitted for failure of self-care and worsening decompensation at nursing home. His functioning is poor with inconsistent activity and PO intake despite trials of Ativan, Emsam patch, IM Zyprexa, and now Haldol on 305 commitment. For first 2 months of his stay he was not taking PO meds consistently and was largely mute though this has improved dramatically following court order for ECT. He remains resistant to groups but is motivated to discuss housing options and take PO medication. He is now expressing preferences with regards to his care. He remains in need of inpatient psychiatric care and has no current housing which he will require housing with level of supervision and support to avoid regression back to lack of eating/self-care, etc as seen prior to his current admission. 05/23/21: remains largely isolative to his room, in bed for most of the day, did attend to some self-care and then attend zoom meeting and participated in discussion about potential housing option. Plan:no medication changes, awaiting response regarding latuda prior auth, will need outpatient commitment. (1) Schizoaffective disorder: (2) Avolition: (3) Depression: see impression above Risk Factors Assessment Male: Yes : Yes Do You Have Access To A Gun?: No (in supportive living enviornment, pt unable to answer ) Mental Health Diagnoses: Yes Previous Psychiatric Hospitalization: Yes Protective Factors Assessment Employed: No Interval History Identifying Information 40 yo man with history of catatonia, depression, schizoaffective disorder admitted due to concern for decompensation with failure of self-care at [facility]. Admitted on 302, now 305. Chief Complaint "I'm ok, how are you?". Review of Systems Sleep Information Total Hours of Sleep: 9 Sleep Comments: per night clerk report Meal Information Percent Meal Consumed - Breakfast: 100 Percent Meal Consumed - Lunch: 100 Percent Meal Consumed - Dinner: 100 Nutrition Comment: David did come out at 1400 and ate his meal. Subjective Subjective Patient was seen & assessed and interval progress reviewed with treatment team nursing and social work. He went outside yesterday afternoon in wheelchair. Remains isolative except for meals. Had meeting today at 1pm with Kassi regarding potential housing option. He did not want to shower or change his clothes before this meeting but did brush his teeth and comb his hair. he felt the meeting went well. He denies any medication side effects. Denies any other concerns. Physical Exam Psychiatric Orientation: alert and oriented x 3 Apperance: + disheveled Eye Contact: + poor eye contact Motor Behavior: steady gait and station and no abnormal motor movements Speech: normal rate/rhythm/volume of speech Affect: + constricted affect Mood: + depressed mood Thought Process: + concrete thought process Thought Content: + delusions Suicidal Thoughts: denies suicidal thoughts Homicidal Thoughts: denies homicidal thoughts Hallucinations: no auditory hallucinations and no visual hallucinations Cognition: recent memory grossly intact, remote memory grossly intact, attention grossly intact and language grossly intact Estimated Intelligence: consistent with education level Insight: + impaired insight Judgement: + impaired judgement Vital Signs (Past 24 Hours) Last Vital Signs Temp 36.4 C L 05/23/21 06:15 Pulse 79 05/23/21 06:15 Resp 16 05/23/21 06:15 BP 111/75 05/23/21 06:15 Pulse Ox 94 04/03/21 20:37 Results & Data ([facility]) Current Inpatient Medications Current Inpatient Medications: Current Inpatient Medications Acetaminophen (Acetaminophen 325 Mg Tab) 650 mg PO Q4H PRN PRN Reason: Headache or Minor Fever Stop: 06/11/21 10:27 Last Admin: 03/16/21 10:34 Dose: 325 mg Documented by: Al Hydrox/Mg Hydrox/Simethicone (Aluminum/Magnesium Susp 30 Ml Udc) 30 ml PO Q4H PRN PRN Reason: GI Upset Stop: 06/11/21 10:27 Benztropine Mesylate (Benztropine Mesylate 1 Mg Tab) 1 mg PO Q6 PRN PRN Reason: Muscle Spasm Stop: 06/11/21 08:40 Bismuth Subsalicylate (Bismuth Subsalicylate Liqd 236 Ml) 15 ml PO PRN PRN PRN Reason: Loose Stool Stop: 06/11/21 02:27 Bupropion HCl (Bupropion Xl 150 Mg Tabcr) 150 mg PO [facility]ILYBL [facility] Stop: 06/14/21 11:59 Last Admin: 05/23/21 12:29 Dose: 150 mg Documented by: Folic Acid (Folic Acid 1 Mg Tab) 1 mg PO TODAY@1999 [facility] Stop: 06/13/21 19:59 Last Admin: 05/22/21 20:22 Dose: 1 mg Documented by: Lamotrigine (Lamotrigine 25 Mg Tab) 50 mg PO TODAY@1999 [facility] Stop: 06/13/21 19:59 Last Admin: 05/22/21 20:22 Dose: 50 mg Documented by: Lorazepam (Lorazepam 1 Mg Tab) 1 mg PO Q6 PRN PRN Reason: Anxiety/Agitation Stop: 06/11/21 08:14 Last Admin: 04/04/21 20:52 Dose: 1 mg Documented by: Magnesium Hydroxide (Magnesium Hydroxide Susp 30 Ml Udc) 30 ml PO DAILY PRN PRN Reason: Constipation Stop: 06/11/21 10:27 Olanzapine (Olanzapine 20 Mg Tablet) 20 mg PO TODAY@1999 [facility] Stop: 06/13/21 19:59 Last Admin: 05/22/21 20:22 Dose: 20 mg Documented by: Sodium Chloride (Sodium Chloride 0.65% Na Soln 45 Ml ([place])) 1 - 2 sprays NA PRN PRN PRN Reason: Nasal Dryness/Congestion Stop: 06/11/21 10:27 Trazodone HCl (Trazodone Hcl 100 Mg Tab) 100 mg PO HS PRN PRN Reason: insomnia Stop: 05/27/21 21:59 Mental Health & Subst Abuse Tx Psychiatrist Name of Psychiatrist: Oniel Negron Psychiatrist's Date of Appointment with Psychiatrist: 03/13/21 Time of Appointment with Psychiatrist: 9:20am Psychiatric Appointment Comment: Zoom *is on waiting list for appt. sooner Therapist Name of Therapist: Unknown Steel Molder Name of Steel Molder: Mauri AVILAU) Post Discharge Appointments Primary Care Physician Name Of Family Doctor: Unknown
[2021-05-23] MEDS: OLANZapine 20 MG TABLET PO SCH (19:49)
[2021-05-23] MEDS: lamoTRIgine 25 MG TAB PO SCH (19:49)
[2021-05-23] MEDS: FOLIC ACID 1 MG TAB PO SCH (19:49)
[2021-05-24] MEDS: buPROPion XL 150 MG TABCR PO SCH (12:40)
--- NOTE | 2021-05-24 13:55 | Psychiatric Progress Note ---
Date of Service May 24, 2021 Impression / Recommendations Impression The patient is a 40 year old with a history of schizoaffective disorder who was [facility]. His functioning is poor with inconsistent activity and PO intake despite trials of Ativan, Emsam patch, IM Zyprexa, and now Haldol on 305 commitment. For first 2 months of his stay he was not taking PO meds consistently and was largely mute though this has improved dramatically following court order for ECT. He remains resistant to groups but is motivated to discuss housing options and take PO medication. He is now expressing preferences with regards to his care. He remains in need of inpatient psychiatric care and has no current housing which he will require housing with level of supervision and support to avoid regression back to lack of eating/self-care, etc as seen prior to his current admission. 05/24/21: remains largely isolative to his room, in bed for most of the day, limited attention to hygiene and appearance. Plan:no medication changes, re- submitted prior auth for shabbir with new information about previous seroquel trial, insurance confirmed they have sent updated information for new expedited review; will need outpatient commitment. Will continue to try to get him outside when possible with staffing and at least once per week. (1) Schizoaffective disorder: (2) Avolition: (3) Depression: see impression above Risk Factors Assessment Male: Yes : Yes Do You Have Access To A Gun?: No (in supportive living enviornment, pt unable to answer ) Mental Health Diagnoses: Yes Previous Psychiatric Hospitalization: Yes Protective Factors Assessment Employed: No Interval History Identifying Information 40 yo man with history of catatonia, depression, schizoaffective disorder admitted due to concern for decompensation with failure of self-care at [facility]. Admitted on 302, now 305. Chief Complaint "I'm alright". Review of Systems Sleep Information Total Hours of Sleep: 5.25 Sleep Comments: pt on q-15 minute checks Meal Information Percent Meal Consumed - Breakfast: 100 Percent Meal Consumed - Lunch: 100 Percent Meal Consumed - Dinner: 100 Nutrition Comment: David did come out at 1400 and ate his meal. Subjective Subjective Patient was seen & assessed and interval progress reviewed with treatment team nursing and social work. David wanted to go outside this afternoon but unfortunately enough staff to accommodate this were not available, reviewed with him that our plan is at least weekly and more if we can accommodate his request, he expressed understanding. He reports stable mood but remains isolative to his room with limited attention to hygiene. Eating consistently. He denies any medication side effects. He remains interested in latuda, discussed that got notice today the prior auth was initially denied because he has not tried seroquel or risperidone. He clarified that he did take seroquel as monotherapy from [id number] Arthur in [facility] but stopped due to vision problems. That was when he was then switched to latuda for the first time. Physical Exam Psychiatric Orientation: alert and oriented x 3 Apperance: + disheveled Eye Contact: + fair eye contact Motor Behavior: steady gait and station and no abnormal motor movements; n EPS and n akathisia Speech: normal rate/rhythm/volume of speech Affect: + flat affect Mood: + depressed mood Thought Process: + concrete thought process Thought Content: + paranoid Suicidal Thoughts: denies suicidal thoughts Homicidal Thoughts: denies homicidal thoughts Hallucinations: no auditory hallucinations Cognition: recent memory grossly intact, remote memory grossly intact, attention grossly intact and language grossly intact Estimated Intelligence: consistent with education level Insight: + impaired insight Judgement: + limited judgement Vital Signs (Past 24 Hours) Last Vital Signs Temp 36.7 C 05/23/21 20:46 Pulse 79 05/23/21 06:15 Resp 16 05/23/21 06:15 BP 111/75 05/23/21 06:15 Pulse Ox 94 04/03/21 20:37 Results & Data ([facility]) Current Inpatient Medications Current Inpatient Medications: Current Inpatient Medications Acetaminophen (Acetaminophen 325 Mg Tab) 650 mg PO Q4H PRN PRN Reason: Headache or Minor Fever Stop: 06/11/21 10:27 Last Admin: 03/16/21 10:34 Dose: 325 mg Documented by: Al Hydrox/Mg Hydrox/Simethicone (Aluminum/Magnesium Susp 30 Ml Udc) 30 ml PO Q4H PRN PRN Reason: GI Upset Stop: 06/11/21 10:27 Benztropine Mesylate (Benztropine Mesylate 1 Mg Tab) 1 mg PO Q6 PRN PRN Reason: Muscle Spasm Stop: 06/11/21 08:40 Bismuth Subsalicylate (Bismuth Subsalicylate Liqd 236 Ml) 15 ml PO PRN PRN PRN Reason: Loose Stool Stop: 06/11/21 02:27 Bupropion HCl (Bupropion Xl 150 Mg Tabcr) [facility] Stop: 06/14/21 11:59 Last Admin: 05/24/21 12:40 Dose: 150 mg Documented by: Folic Acid (Folic Acid 1 Mg Tab) 1 mg PO TODAY@1999 [facility] Stop: 06/13/21 19:59 Last Admin: 05/23/21 19:49 Dose: 1 mg Documented by: Lamotrigine (Lamotrigine 25 Mg Tab) 50 mg PO TODAY@1999 [facility] Stop: 06/13/21 19:59 Last Admin: 05/23/21 19:49 Dose: 50 mg Documented by: Lorazepam (Lorazepam 1 Mg Tab) 1 mg PO Q6 PRN PRN Reason: Anxiety/Agitation Stop: 06/11/21 08:14 Last Admin: 04/04/21 20:52 Dose: 1 mg Documented by: Magnesium Hydroxide (Magnesium Hydroxide Susp 30 Ml Udc) 30 ml PO DAILY PRN PRN Reason: Constipation Stop: 06/11/21 10:27 Olanzapine (Olanzapine 20 Mg Tablet) 20 mg PO TODAY@1999 [facility] Stop: 06/13/21 19:59 Last Admin: 05/23/21 19:49 Dose: 20 mg Documented by: Sodium Chloride (Sodium Chloride 0.65% Na Soln 45 Ml ([place])) 1 - 2 sprays NA PRN PRN PRN Reason: Nasal Dryness/Congestion Stop: 06/11/21 10:27 Trazodone HCl (Trazodone Hcl 100 Mg Tab) 100 mg PO HS PRN PRN Reason: insomnia Stop: 05/27/21 21:59 Mental Health & Subst Abuse Tx Psychiatrist Name of Psychiatrist: Oniel Negron Psychiatrist's Date of Appointment with Psychiatrist: 03/13/21 Time of Appointment with Psychiatrist: 9:20am Psychiatric Appointment Comment: Zoom *is on waiting list for appt. sooner Therapist Name of Therapist: Unknown Rehabilitation Program Manager Name of Rehabilitation Program Manager: Mauri MATTHEWS) Post Discharge Appointments Primary Care Physician Name Of Family Doctor: Unknown
[2021-05-24] MEDS: FOLIC ACID 1 MG TAB PO SCH (20:36)
[2021-05-24] MEDS: lamoTRIgine 25 MG TAB PO SCH (20:37)
[2021-05-24] MEDS: OLANZapine 20 MG TABLET PO SCH (20:37)
--- NOTE | 2021-05-25 10:38 | Psychiatric Progress Note ---
Date of Service May 25, 2021 Impression / Recommendations Impression The patient is a 40 year old with a history of schizoaffective disorder who was admitted for failure of self-care and [facility] decompensation at [facility]. His functioning is poor with inconsistent activity and PO intake despite trials of Ativan, Emsam patch, IM Zyprexa, and now Haldol on 305 commitment. For first 2 months of his stay he was not taking PO meds consistently and was largely mute though this has improved dramatically following court order for ECT. He remains resistant to groups but is motivated to discuss housing options and take PO medication. He is now expressing preferences with regards to his care. He remains in need of inpatient psychiatric care and has no current housing which he will require housing with level of supervision and support to avoid regression back to lack of eating/self-care, etc as seen prior to his current admission. 05/25/21: remains isolative but does seem more motivated toward discharge planning. Plan: appealing Latuda. (1) Schizoaffective disorder: (2) Avolition: (3) Depression: Risk Factors Assessment Male: Yes : Yes Do You Have Access To A Gun?: No (in supportive living enviornment, pt unable to answer ) Mental Health Diagnoses: Yes Previous Psychiatric Hospitalization: Yes Protective Factors Assessment Employed: No Interval History Identifying Information 40 yo man with history of catatonia, depression, schizoaffective disorder admitted due to concern for decompensation with failure of self-care at [facility]. Admitted on 302, now 305. Chief Complaint "yeah I'm looking forward to [place], I'd still like to try Latuda". Review of Systems Sleep Information Total Hours of Sleep: 7 Sleep Comments: Patient maintained on 15 minute checks. Meal Information Percent Meal Consumed - Breakfast: 100 Percent Meal Consumed - Lunch: 100 Percent Meal Consumed - Dinner: 95 Nutrition Comment: David did come out at 1400 and ate his meal. Subjective Subjective Patient was seen & assessed and interval progress reviewed with nursing and social work. Patient confirms he has more motivation to go outside. Has been up and more likely to eat breakfast but more likely to come out after peers have finished. He indicated desire to cook for self when able to be discharged to supervised living. Denies unsteady gait or dizziness. Physical Exam Psychiatric Orientation: alert and oriented x 3 Eye Contact: + fair eye contact Motor Behavior: no abnormal motor movements Speech: normal rate/rhythm/volume of speech Affect: + constricted affect Mood: no depressed mood Thought Process: + concrete thought process Thought Content: reality based without delusions Suicidal Thoughts: denies suicidal thoughts Homicidal Thoughts: denies homicidal thoughts Hallucinations: no auditory hallucinations and no visual hallucinations Cognition: attention grossly intact and language grossly intact Estimated Intelligence: consistent with education level Insight: + limited insight Judgement: + limited judgement Vital Signs (Past 24 Hours) Last Vital Signs Temp 36.4 C L 05/25/21 06:44 Pulse 89 05/25/21 06:44 Resp 16 05/25/21 06:44 BP 112/72 05/25/21 06:44 Pulse Ox 94 04/03/21 20:37 Results & Data ([facility]) Current Inpatient Medications Current Inpatient Medications: Current Inpatient Medications Acetaminophen (Acetaminophen 325 Mg Tab) 650 mg PO Q4H PRN PRN Reason: Headache or Minor Fever Stop: 06/11/21 10:27 Last Admin: 03/16/21 10:34 Dose: 325 mg Documented by: Al Hydrox/Mg Hydrox/Simethicone (Aluminum/Magnesium Susp 30 Ml Udc) 30 ml PO Q4H PRN PRN Reason: GI Upset Stop: 06/11/21 10:27 Benztropine Mesylate (Benztropine Mesylate 1 Mg Tab) 1 mg PO Q6 PRN PRN Reason: Muscle Spasm Stop: 06/11/21 08:40 Bismuth Subsalicylate (Bismuth Subsalicylate Liqd 236 Ml) 15 ml PO PRN PRN PRN Reason: Loose Stool Stop: 06/11/21 02:27 Bupropion HCl (Bupropion Xl 150 Mg Tabcr) [facility] Stop: 06/14/21 11:59 Last Admin: 05/24/21 12:40 Dose: 150 mg Documented by: Folic Acid (Folic Acid 1 Mg Tab) 1 mg PO TODAY@1999 [facility] Stop: 06/13/21 19:59 Last Admin: 05/24/21 20:36 Dose: 1 mg Documented by: Lamotrigine (Lamotrigine 25 Mg Tab) 50 mg PO TODAY@1999 [facility] Stop: 06/13/21 19:59 Last Admin: 05/24/21 20:37 Dose: 50 mg Documented by: Lorazepam (Lorazepam 1 Mg Tab) 1 mg PO Q6 PRN PRN Reason: Anxiety/Agitation Stop: 06/11/21 08:14 Last Admin: 04/04/21 20:52 Dose: 1 mg Documented by: Magnesium Hydroxide (Magnesium Hydroxide Susp 30 Ml Udc) 30 ml PO DAILY PRN PRN Reason: Constipation Stop: 06/11/21 10:27 Olanzapine (Olanzapine 20 Mg Tablet) 20 mg PO TODAY@2000 [facility] Stop: 06/13/21 19:59 Last Admin: 05/24/21 20:37 Dose: 20 mg Documented by: Sodium Chloride (Sodium Chloride 0.65% Na Soln 45 Ml ([place])) 1 - 2 sprays NA PRN PRN PRN Reason: Nasal Dryness/Congestion Stop: 06/11/21 10:27 Trazodone HCl (Trazodone Hcl 100 Mg Tab) 100 mg PO HS PRN PRN Reason: insomnia Stop: 05/27/21 21:59 Mental Health & Subst Abuse Tx Psychiatrist Name of Psychiatrist: Oniel Negron Psychiatrist's Date of Appointment with Psychiatrist: 03/13/21 Time of Appointment with Psychiatrist: 9:20am Psychiatric Appointment Comment: Zoom *is on waiting list for appt. sooner Therapist Name of Therapist: Unknown Tobacco Primer Machine Operator Name of Tobacco Primer Machine Operator: Mauri MATTHEWS) Post Discharge Appointments Primary Care Physician Name Of Family Doctor: Unknown
[2021-05-25] MEDS: buPROPion XL 150 MG TABCR PO SCH (12:23)
[2021-05-25] MEDS: FOLIC ACID 1 MG TAB PO SCH (20:57)
[2021-05-25] MEDS: OLANZapine 20 MG TABLET PO SCH (20:57)
[2021-05-25] MEDS: lamoTRIgine 25 MG TAB PO SCH (20:57)
--- NOTE | 2021-05-26 11:41 | Psychiatric Progress Note ---
Date of Service May 26, 2021 Impression / Recommendations Impression The patient is a 40 year old with a history of schizoaffective disorder who was admitted for failure of self-care and worsening decompensation at skilled nursing. His functioning is poor with inconsistent activity and PO intake despite trials of Ativan, Emsam patch, IM Zyprexa, and now Haldol on 305 commitment. For first 2 months of his stay he was not taking PO meds consistently and was largely mute though this has improved dramatically following court order for ECT. He remains resistant to groups but is motivated to discuss housing options and take PO medication. He is now expressing preferences with regards to his care. He remains in need of inpatient psychiatric care and has no current housing which he will require housing with level of supervision and support to avoid regression back to lack of eating/self-care, etc as seen prior to his current admission. 05/26/21: remains isolative. Plan: appealing Latuda otherwise continue current meds and tx plan. can titrate lamictal soon. Risk Factors Assessment Male: Yes : Yes Do You Have Access To A Gun?: No (in supportive living enviornment, pt unable to answer ) Mental Health Diagnoses: Yes Previous Psychiatric Hospitalization: Yes Protective Factors Assessment Employed: No Interval History Identifying Information 40 yo man with history of catatonia, depression, schizoaffective disorder admitted due to concern for decompensation with failure of self-care at [facility]. Admitted on 302, now 305. Chief Complaint "I'm fine". Review of Systems Sleep Information Total Hours of Sleep: 6.5 Sleep Comments: pt on q-15 minute checks Meal Information Percent Meal Consumed - Breakfast: 90 Percent Meal Consumed - Lunch: 100 Percent Meal Consumed - Dinner: 100 Nutrition Comment: David did come out at 1400 and ate his meal. Subjective Subjective Patient was seen & assessed and interval progress reviewed with nursing and social work. Slightly more appropriate in conversation in that less irritable. Still reclusive to room between meals and keeps blanket over head. Physical Exam Psychiatric limited as covers face, thoughts are clear/coherent, he is not spontaneous in conversation, denies SI/HI/alexander. Vital Signs (Past 24 Hours) Last Vital Signs Temp 37.4 C 05/25/21 21:13 Pulse 86 05/26/21 06:49 Resp 16 05/26/21 06:49 BP 110/64 05/26/21 06:49 Pulse Ox 94 04/03/21 20:37 Results & Data ([facility]) Current Inpatient Medications Current Inpatient Medications: Current Inpatient Medications Acetaminophen (Acetaminophen 325 Mg Tab) 650 mg PO Q4H PRN PRN Reason: Headache or Minor Fever Stop: 06/11/21 10:27 Last Admin: 03/16/21 10:34 Dose: 325 mg Documented by: Al Hydrox/Mg Hydrox/Simethicone (Aluminum/Magnesium Susp 30 Ml Udc) 30 ml PO Q4H PRN PRN Reason: GI Upset Stop: 06/11/21 10:27 Benztropine Mesylate (Benztropine Mesylate 1 Mg Tab) 1 mg PO Q6 PRN PRN Reason: Muscle Spasm Stop: 06/11/21 08:40 Bismuth Subsalicylate (Bismuth Subsalicylate Liqd 236 Ml) 15 ml PO PRN PRN PRN Reason: Loose Stool Stop: 06/11/21 02:27 Bupropion HCl (Bupropion Xl 150 Mg Tabcr) [facility] Stop: 06/14/21 11:59 Last Admin: 05/25/21 12:23 Dose: 150 mg Documented by: Folic Acid (Folic Acid 1 Mg Tab) 1 mg PO TODAY@1999 [facility] Stop: 06/13/21 19:59 Last Admin: 05/25/21 20:57 Dose: 1 mg Documented by: Lamotrigine (Lamotrigine 25 Mg Tab) 50 mg PO TODAY@1999 [facility] Stop: 06/13/21 19:59 Last Admin: 05/25/21 20:57 Dose: 50 mg Documented by: Lorazepam (Lorazepam 1 Mg Tab) 1 mg PO Q6 PRN PRN Reason: Anxiety/Agitation Stop: 06/11/21 08:14 Last Admin: 04/04/21 20:52 Dose: 1 mg Documented by: Magnesium Hydroxide (Magnesium Hydroxide Susp 30 Ml Udc) 30 ml PO DAILY PRN PRN Reason: Constipation Stop: 06/11/21 10:27 Olanzapine (Olanzapine 20 Mg Tablet) 20 mg PO TODAY@1999 [facility] Stop: 06/13/21 19:59 Last Admin: 05/25/21 20:57 Dose: 20 mg Documented by: Sodium Chloride (Sodium Chloride 0.65% Na Soln 45 Ml ([place])) 1 - 2 sprays NA PRN PRN PRN Reason: Nasal Dryness/Congestion Stop: 06/11/21 10:27 Trazodone HCl (Trazodone Hcl 100 Mg Tab) 100 mg PO HS PRN PRN Reason: insomnia Stop: 05/27/21 21:59 Mental Health & Subst Abuse Tx Psychiatrist Name of Psychiatrist: Oniel Negron Psychiatrist's Date of Appointment with Psychiatrist: 03/13/21 Time of Appointment with Psychiatrist: 9:20am Psychiatric Appointment Comment: Zoom *is on waiting list for appt. sooner Therapist Name of Therapist: Unknown Corner Former Name of Corner Former: Mauri ([facility]) Post Discharge Appointments Primary Care Physician Name Of Family Doctor: Unknown
[2021-05-26] MEDS: buPROPion XL 150 MG TABCR PO SCH (13:03)
[2021-05-26] MEDS: OLANZapine 20 MG TABLET PO SCH (20:45)
[2021-05-26] MEDS: lamoTRIgine 25 MG TAB PO SCH (20:45)
[2021-05-26] MEDS: FOLIC ACID 1 MG TAB PO SCH (20:46)
--- NOTE | 2021-05-27 10:14 | Psychiatric Progress Note ---
Date of Service May 27, 2021 Impression / Recommendations Impression The patient is a 40 year old with a history of schizoaffective disorder who was admitted for failure of self-care and worsening decompensation at residential. His functioning is poor with inconsistent activity and PO intake despite trials of Ativan, Emsam patch, IM Zyprexa, and now Haldol on 305 commitment. For first 2 months of his stay he was not taking PO meds consistently and was largely mute though this has improved dramatically following court order for ECT. He remains resistant to groups but is motivated to discuss housing options and take PO medication. He is now expressing preferences with regards to his care. He remains in need of inpatient psychiatric care and has no current housing which he will require housing with level of supervision and support to avoid regression back to lack of eating/self-care, etc as seen prior to his current admission. 05/27/21: limited cooperation Plan: appealing Latuda otherwise continue current meds and tx plan. can titrate lamictal soon. Risk Factors Assessment Male: Yes : Yes Do You Have Access To A Gun?: No (in supportive living enviornment, pt unable to answer ) Mental Health Diagnoses: Yes Previous Psychiatric Hospitalization: Yes Protective Factors Assessment Employed: No Interval History Identifying Information 40 yo man with history of catatonia, depression, schizoaffective disorder admitted due to concern for decompensation with failure of self-care at [facility]. Admitted on 302, now 305. Chief Complaint ignored me Review of Systems Sleep Information Total Hours of Sleep: 6.5 Sleep Comments: pt on q-15 minute checks Meal Information Percent Meal Consumed - Breakfast: 75 Percent Meal Consumed - Lunch: 100 Percent Meal Consumed - Dinner: 100 Nutrition Comment: David did come out at 1400 and ate his meal. Subjective Subjective Patient was seen & assessed and interval progress reviewed with treatment team. still poor interaction with peers as seemingly unaware of his hygiene issues. Physical Exam Psychiatric patient resistant, keeps head covered, mute Vital Signs (Past 24 Hours) Last Vital Signs Temp 36.6 C 05/26/21 20:06 Pulse 86 05/26/21 06:49 Resp 16 05/26/21 06:49 BP 110/64 05/26/21 06:49 Pulse Ox 94 04/03/21 20:37 Results & Data ([facility]) Current Inpatient Medications Current Inpatient Medications: Current Inpatient Medications Acetaminophen (Acetaminophen 325 Mg Tab) 650 mg PO Q4H PRN PRN Reason: Headache or Minor Fever Stop: 06/11/21 10:27 Last Admin: 03/16/21 10:34 Dose: 325 mg Documented by: Al Hydrox/Mg Hydrox/Simethicone (Aluminum/Magnesium Susp 30 Ml Udc) 30 ml PO Q4H PRN PRN Reason: GI Upset Stop: 06/11/21 10:27 Benztropine Mesylate (Benztropine Mesylate 1 Mg Tab) 1 mg PO Q6 PRN PRN Reason: Muscle Spasm Stop: 06/11/21 08:40 Bismuth Subsalicylate (Bismuth Subsalicylate Liqd 236 Ml) 15 ml PO PRN PRN PRN Reason: Loose Stool Stop: 06/11/21 02:27 Bupropion HCl (Bupropion Xl 150 Mg Tabcr) [facility] Stop: 06/14/21 11:59 Last Admin: 05/26/21 13:03 Dose: 150 mg Documented by: Folic Acid (Folic Acid 1 Mg Tab) 1 mg PO TODAY@1999 [facility] Stop: 06/13/21 19:59 Last Admin: 05/26/21 20:46 Dose: 1 mg Documented by: Lamotrigine (Lamotrigine 25 Mg Tab) 50 mg PO TODAY@1999 [facility] Stop: 06/13/21 19:59 Last Admin: 05/26/21 20:45 Dose: 50 mg Documented by: Lorazepam (Lorazepam 1 Mg Tab) 1 mg PO Q6 PRN PRN Reason: Anxiety/Agitation Stop: 06/11/21 08:14 Last Admin: 04/04/21 20:52 Dose: 1 mg Documented by: Magnesium Hydroxide (Magnesium Hydroxide Susp 30 Ml Udc) 30 ml PO DAILY PRN PRN Reason: Constipation Stop: 06/11/21 10:27 Olanzapine (Olanzapine 20 Mg Tablet) 20 mg PO TODAY@1999 [facility] Stop: 06/13/21 19:59 Last Admin: 05/26/21 20:45 Dose: 20 mg Documented by: Sodium Chloride (Sodium Chloride 0.65% Na Soln 45 Ml ([employer])) 1 - 2 sprays NA PRN PRN PRN Reason: Nasal Dryness/Congestion Stop: 06/11/21 10:27 Trazodone HCl (Trazodone Hcl 100 Mg Tab) 100 mg PO HS PRN PRN Reason: insomnia Stop: 05/27/21 21:59 Mental Health & Subst Abuse Tx Psychiatrist Name of Psychiatrist: Oniel Negron Psychiatrist's Date of Appointment with Psychiatrist: 03/13/21 Time of Appointment with Psychiatrist: 9:20am Psychiatric Appointment Comment: [facility] *is on waiting list for appt. sooner Therapist Name of Therapist: Unknown Deputy K 9 Name of Deputy K 9: Mauri (BSU) Post Discharge Appointments Primary Care Physician Name Of Family Doctor: Unknown
[2021-05-27] MEDS: buPROPion XL 150 MG TABCR PO SCH (12:27)
[2021-05-27] MEDS: OLANZapine 20 MG TABLET PO SCH (20:25)
[2021-05-27] MEDS: FOLIC ACID 1 MG TAB PO SCH (20:25)
[2021-05-27] MEDS: lamoTRIgine 25 MG TAB PO SCH (20:25)
--- NOTE | 2021-05-28 11:17 | Psychiatric Progress Note ---
Date of Service May 28, 2021 Impression / Recommendations Impression The patient is a 40 year old with a history of schizoaffective disorder who was admitted for failure of self[facility]care [facility]. His functioning is poor with inconsistent activity and PO intake despite trials of Ativan, Emsam patch, IM Zyprexa, and now Haldol on 305 commitment. For first 2 months of his stay he was not taking PO meds consistently and was largely mute though this has improved dramatically following court order for ECT which he ultimately voiced an opinion on and declined. He remains resistant to groups but is motivated to discuss housing options and take PO medication. He is now expressing preferences with regards to his care. He remains in need of inpatient psychiatric care and has no current housing which he will require housing with level of supervision and support to avoid regression back to lack of eating/self-care, etc as seen prior to his current admission. 05/28/21: unchanged Plan: titrate Lamictal. (1) Schizoaffective disorder: (2) Depression: 02/09/21-05/28/21: Given the patient's length of stay, this serves as a care summary which will be carried forward. He initially presented somewhat catatonic in appearance and had mixed response to Ativan challenge. His commitment was extended and a 2nd opinion for meds over objection was sought as he was mute, in bed with limited PO and required DVT prophylaxis and potassium repletion. After no consistent response to IM Ativan, given refusal of oral Latuda and Zyprexa he was started on Zyprexa IM with apparent worsening. An EEG and MRI were obtained which were unremarkable and care continued on an extended commitment (304). Emsam patch to treat presumed psychotic depression was acquired with some response by week 4. Neurology was consulted on 03/07/21 and had no additional recommendations. The patient was referred to the [facility] in early March given lack of progress and Haldol trial was initiated with poor PO and need for ongoing IMs. A court order was sought for ECT as treatment options had been exhausted and patient was unable to consent; the order was granted on 04/19/21. After that hearing (where he declined to participate or speak) he was more compliant with po Haldol and by 04/27/21 David voiced that he did not want ECT. Soon after he was cooperative with restart of previous meds (Lamictal, Wellbutrin, Zyprexa) and Haldol was tapered as he was refusing long acting injectable. On 05/09/21 there was a diversion meeting to look as supervised living options as he lost his spot at the [facility] given the length of his stay. Risk Factors Assessment Male: Yes : Yes Do You Have Access To A Gun?: No (in supportive living enviornment, pt unable to answer ) Mental Health Diagnoses: Yes Previous Psychiatric Hospitalization: Yes Protective Factors Assessment Employed: No Interval History Identifying Information 40 yo man with history of catatonia, depression, schizoaffective disorder admitted due to concern for decompensation with failure of self-care at [facility]. Admitted on 302, now 305. Chief Complaint "I just want to ensure that you all are calling and following through on funding". Review of Systems Sleep Information Total Hours of Sleep: 8 Sleep Comments: pt on q-15 minute checks Meal Information Percent Meal Consumed - Breakfast: 100 Percent Meal Consumed - Lunch: 75 Percent Meal Consumed - Dinner: 100 Nutrition Comment: per meal record Subjective Subjective Patient was seen & assessed and interval progress reviewed with nursing and social work. Was overheard by a peer referring to psychiatry as a joke. Was annoyed yesterday that LOS is unchanged given lack of clear timeline for supervised living. He is aware that Dr. Negron is no longer a treatment option given his hx of noncompliance, need for an outpatient commitment. Balked at change but ultimately signed SHERRON for appropriate referrals to be made. Physical Exam Psychiatric Orientation: alert Apperance: + disheveled Eye Contact: + poor eye contact Motor Behavior: no abnormal motor movements Speech: normal rate/rhythm/volume of speech Affect: + constricted affect Mood: no depressed mood Thought Process: + concrete thought process Thought Content: reality based without delusions Suicidal Thoughts: denies suicidal thoughts Homicidal Thoughts: denies homicidal thoughts Hallucinations: no auditory hallucinations and no visual hallucinations Cognition: language grossly intact Estimated Intelligence: consistent with education level Insight: + limited insight Judgement: + limited judgement Vital Signs (Past 24 Hours) Last Vital Signs Temp 37.4 C 05/27/21 21:22 Pulse 86 05/26/21 06:49 Resp 16 05/26/21 06:49 BP 110/64 05/26/21 06:49 Pulse Ox 94 04/03/21 20:37 Results & Data ([facility]) Current Inpatient Medications Current Inpatient Medications: Current Inpatient Medications Acetaminophen (Acetaminophen 325 Mg Tab) 650 mg PO Q4H PRN PRN Reason: Headache or Minor Fever Stop: 06/11/21 10:27 Last Admin: 03/16/21 10:34 Dose: 325 mg Documented by: Al Hydrox/Mg Hydrox/Simethicone (Aluminum/Magnesium Susp 30 Ml Udc) 30 ml PO Q4H PRN PRN Reason: GI Upset Stop: 06/11/21 10:27 Benztropine Mesylate (Benztropine Mesylate 1 Mg Tab) 1 mg PO Q6 PRN PRN Reason: Muscle Spasm Stop: 06/11/21 08:40 Bismuth Subsalicylate (Bismuth Subsalicylate Liqd 236 Ml) 15 ml PO PRN PRN PRN Reason: Loose Stool Stop: 06/11/21 02:27 Bupropion HCl (Bupropion Xl 150 Mg Tabcr) [facility] Stop: 06/14/21 11:59 Last Admin: 05/27/21 12:27 Dose: 150 mg Documented by: Folic Acid (Folic Acid 1 Mg Tab) 1 mg PO TODAY@1999 [facility] Stop: 06/13/21 19:59 Last Admin: 05/27/21 20:25 Dose: 1 mg Documented by: Lamotrigine (Lamotrigine 25 Mg Tab) 50 mg PO TODAY@1999 [facility] Stop: 06/13/21 19:59 Last Admin: 05/27/21 20:25 Dose: 50 mg Documented by: Lorazepam (Lorazepam 1 Mg Tab) 1 mg PO Q6 PRN PRN Reason: Anxiety/Agitation Stop: 06/11/21 08:14 Last Admin: 04/04/21 20:52 Dose: 1 mg Documented by: Magnesium Hydroxide (Magnesium Hydroxide Susp 30 Ml Udc) 30 ml PO DAILY PRN PRN Reason: Constipation Stop: 06/11/21 10:27 Olanzapine (Olanzapine 20 Mg Tablet) 20 mg PO TODAY@1999 [facility] Stop: 06/13/21 19:59 Last Admin: 05/27/21 20:25 Dose: 20 mg Documented by: Sodium Chloride (Sodium Chloride 0.65% Na Soln 45 Ml ([place])) 1 - 2 sprays NA PRN PRN PRN Reason: Nasal Dryness/Congestion Stop: 06/11/21 10:27 Mental Health & Subst Abuse Tx Psychiatrist Name of Psychiatrist: Tez Oshea Psychiatrist's Date of Appointment with Psychiatrist: 07/19/21 Time of Appointment with Psychiatrist: 8:30am Psychiatric Appointment Comment: [place] [address] Therapist Name of Therapist: Unknown Recreation Leader Name of Recreation Leader: Mauri AVILAU) Post Discharge Appointments Primary Care Physician Name Of Family Doctor: Unknown Contact Information Discharge Phone Number: update [place] with phone number
[2021-05-28] MEDS: buPROPion XL 150 MG TABCR PO SCH (12:35)
[2021-05-28] MEDS: FOLIC ACID 1 MG TAB PO SCH (20:10)
[2021-05-28] MEDS: lamoTRIgine 100 MG TAB PO SCH (20:11)
[2021-05-28] MEDS: OLANZapine 20 MG TABLET PO SCH (20:11)
[2021-05-29] MEDS: buPROPion XL 150 MG TABCR PO SCH (13:10)
[2021-05-29] MEDS: FOLIC ACID 1 MG TAB PO SCH (19:44)
[2021-05-29] MEDS: OLANZapine 20 MG TABLET PO SCH (19:44)
[2021-05-29] MEDS: lamoTRIgine 100 MG TAB PO SCH (19:44)
--- NOTE | 2021-05-29 20:59 | Psychiatric Progress Note ---
Date of Service May 29, 2021 Impression / Recommendations Impression The patient is a 40 year old with a history of schizoaffective disorder who was admitted for failure of self-care and worsening decompensation at [facility]. His functioning is poor with inconsistent activity and PO intake despite trials of Ativan, Emsam patch, IM Zyprexa, and now Haldol on 305 commitment. For first 2 months of his stay he was not taking PO meds consistently and was largely mute though this has improved dramatically following court order for ECT which he ultimately voiced an opinion on and declined. He remains resistant to groups but is motivated to discuss housing options and take PO medication. He is now expressing preferences with regards to his care. He remains in need of inpatient psychiatric care and has no current housing which he will require housing with level of supervision and support to avoid regression back to lack of eating/self-care, etc as seen prior to his current admission. 05/29/21: unchanged Plan: continue same meds and tx plan. Patient is unable to be discharged without supervised living. (1) Schizoaffective disorder: Risk Factors Assessment Male: Yes : Yes Do You Have Access To A Gun?: No (in supportive living enviornment, pt unable to answer ) Mental Health Diagnoses: Yes Previous Psychiatric Hospitalization: Yes Protective Factors Assessment Employed: No Interval History Identifying Information 40 yo man with history of catatonia, depression, schizoaffective disorder admitted due to concern for decompensation with failure of self-care at [facility]. Admitted on 302, now 305. Chief Complaint focussed on funding Review of Systems Sleep Information Total Hours of Sleep: 6.5 Sleep Comments: pt on q-15 minute checks Meal Information Percent Meal Consumed - Breakfast: 100 Percent Meal Consumed - Lunch: 100 Percent Meal Consumed - Dinner: 75 Nutrition Comment: per meal record Subjective Subjective Patient was seen & assessed and interval progress reviewed with treatment team. No change in motivation toward ADLs, mainly out of room for meals. confirms divorce papers are pending. Physical Exam Psychiatric uncooperative with exam, keeps face covered under blanket. Answers with 1 word but appropriate. No concerns. Vital Signs (Past 24 Hours) Last Vital Signs Temp 36.6 C 05/29/21 20:36 Pulse 86 05/26/21 06:49 Resp 16 05/26/21 06:49 BP 110/64 05/26/21 06:49 Pulse Ox 94 04/03/21 20:37 Results & Data ([facility]) Current Inpatient Medications Current Inpatient Medications: Current Inpatient Medications Acetaminophen (Acetaminophen 325 Mg Tab) 650 mg PO Q4H PRN PRN Reason: Headache or Minor Fever Stop: 06/11/21 10:27 Last Admin: 03/16/21 10:34 Dose: 325 mg Documented by: Al Hydrox/Mg Hydrox/Simethicone (Aluminum/Magnesium Susp 30 Ml Udc) 30 ml PO Q4H PRN PRN Reason: GI Upset Stop: 06/11/21 10:27 Benztropine Mesylate (Benztropine Mesylate 1 Mg Tab) 1 mg PO Q6 PRN PRN Reason: Muscle Spasm Stop: 06/11/21 08:40 Bismuth Subsalicylate (Bismuth Subsalicylate Liqd 236 Ml) 15 ml PO PRN PRN PRN Reason: Loose Stool Stop: 06/11/21 02:27 Bupropion HCl (Bupropion Xl 150 Mg Tabcr) [facility] Stop: 06/14/21 11:59 Last Admin: 05/29/21 13:10 Dose: 150 mg Documented by: Folic Acid (Folic Acid 1 Mg Tab) 1 mg PO TODAY@1999 [facility] Stop: 06/13/21 19:59 Last Admin: 05/29/21 19:44 Dose: 1 mg Documented by: Lamotrigine (Lamotrigine 100 Mg Tab) 100 mg PO DAILY@1999 [facility] Stop: 06/27/21 19:59 Last Admin: 05/29/21 19:44 Dose: 100 mg Documented by: Lorazepam (Lorazepam 1 Mg Tab) 1 mg PO Q6 PRN PRN Reason: Anxiety/Agitation Stop: 06/11/21 08:14 Last Admin: 04/04/21 20:52 Dose: 1 mg Documented by: Magnesium Hydroxide (Magnesium Hydroxide Susp 30 Ml Udc) 30 ml PO DAILY PRN PRN Reason: Constipation Stop: 06/11/21 10:27 Olanzapine (Olanzapine 20 Mg Tablet) 20 mg PO TODAY@1999 [facility] Stop: 06/13/21 19:59 Last Admin: 05/29/21 19:44 Dose: 20 mg Documented by: Sodium Chloride (Sodium Chloride 0.65% Na Soln 45 Ml ([place])) 1 - 2 sprays NA PRN PRN PRN Reason: Nasal Dryness/Congestion Stop: 06/11/21 10:27 Mental Health & Subst Abuse Tx Psychiatrist Name of Psychiatrist: Tez Oshea Psychiatrist's Date of Appointment with Psychiatrist: 07/19/21 Time of Appointment with Psychiatrist: 8:30am Psychiatric Appointment Comment: [address] [place] [address] Therapist Name of Therapist: Unknown Hotel Superintendent Name of Hotel Superintendent: Mauri GunterBSU) Post Discharge Appointments Primary Care Physician Name Of Family Doctor: Unknown Contact Information Discharge Phone Number: update [place] with phone number
--- NOTE | 2021-05-30 09:58 | Psychiatric Progress Note ---
Date of Service May 30, 2021 Impression / Recommendations Impression The patient is a 40 year old with a history of schizoaffective disorder who was admitted for failure of self-care and worsening decompensation at [facility]. His functioning is poor with inconsistent activity and PO intake despite trials of Ativan, Emsam patch, IM Zyprexa, and now Haldol on 305 commitment. For first 2 months of his stay he was not taking PO meds consistently and was largely mute though this has improved dramatically following court order for ECT which he ultimately voiced an opinion on and declined. He remains resistant to groups but is motivated to discuss housing options and take PO medication. He is now expressing preferences with regards to his care. He remains in need of inpatient psychiatric care and has no current housing which he will require housing with level of supervision and support to avoid regression back to lack of eating/self-care, etc as seen prior to his current admission. 05/30/21: unchanged Plan: continue same, therapeutic outside time with security and staff today as met contract around shower. Risk Factors Assessment Male: Yes : Yes Do You Have Access To A Gun?: No (in supportive living enviornment, pt unable to answer ) Mental Health Diagnoses: Yes Previous Psychiatric Hospitalization: Yes Protective Factors Assessment Employed: No Interval History Identifying Information 40 yo man with history of catatonia, depression, schizoaffective disorder admitted due to concern for decompensation with failure of self-care at [facility]. Admitted on 302, now 305. Chief Complaint "same" Review of Systems Sleep Information Total Hours of Sleep: 6.5 Sleep Comments: pt on q-15 minute checks Meal Information Percent Meal Consumed - Breakfast: 100 Percent Meal Consumed - Lunch: 100 Percent Meal Consumed - Dinner: 75 Nutrition Comment: per meal record Subjective Subjective Patient was seen & assessed and interval progress reviewed with nursing and social work. Patient is aware he will be receiving divorce papers and spoke to his on the phone. Made a comment that he felt that he couldn't cry due to medication but always denies med concerns. He did shower as would like to go outside today. Physical Exam Psychiatric blunted affect, non spontaneous speech, gait steady, thoughts concrete. little cooperation Vital Signs (Past 24 Hours) Last Vital Signs Temp 36.6 C 05/29/21 20:36 Pulse 86 05/26/21 06:49 Resp 16 05/26/21 06:49 BP 110/64 05/26/21 06:49 Pulse Ox 94 04/03/21 20:37 Results & Data ([facility]) Current Inpatient Medications Current Inpatient Medications: Current Inpatient Medications Acetaminophen (Acetaminophen 325 Mg Tab) 650 mg PO Q4H PRN PRN Reason: Headache or Minor Fever Stop: 06/11/21 10:27 Last Admin: 03/16/21 10:34 Dose: 325 mg Documented by: Al Hydrox/Mg Hydrox/Simethicone (Aluminum/Magnesium Susp 30 Ml Udc) 30 ml PO Q4H PRN PRN Reason: GI Upset Stop: 06/11/21 10:27 Benztropine Mesylate (Benztropine Mesylate 1 Mg Tab) 1 mg PO Q6 PRN PRN Reason: Muscle Spasm Stop: 06/11/21 08:40 Bismuth Subsalicylate (Bismuth Subsalicylate Liqd 236 Ml) 15 ml PO PRN PRN PRN Reason: Loose Stool Stop: 06/11/21 02:27 Bupropion HCl (Buprop[facility] Xl 150 Mg Tabcr) [facility] Stop: 06/14/21 11:59 Last Admin: 05/29/21 13:10 Dose: 150 mg Documented by: Folic Acid (Folic Acid 1 Mg Tab) 1 mg PO TODAY@1999 [facility] Stop: 06/13/21 19:59 Last Admin: 05/29/21 19:44 Dose: 1 mg Documented by: Lamotrigine (Lamotrigine 100 Mg Tab) 100 mg PO DAILY@1999 [facility] Stop: 06/27/21 19:59 Last Admin: 05/29/21 19:44 Dose: 100 mg Documented by: Lorazepam (Lorazepam 1 Mg Tab) 1 mg PO Q6 PRN PRN Reason: Anxiety/Agitation Stop: 06/11/21 08:14 Last Admin: 04/04/21 20:52 Dose: 1 mg Documented by: Magnesium Hydroxide (Magnesium Hydroxide Susp 30 Ml Udc) 30 ml PO DAILY PRN PRN Reason: Constipation Stop: 06/11/21 10:27 Olanzapine (Olanzapine 20 Mg Tablet) 20 mg PO TODAY@1999 [facility] Stop: 06/13/21 19:59 Last Admin: 05/29/21 19:44 Dose: 20 mg Documented by: Sodium Chloride (Sodium Chloride 0.65% Na Soln 45 Ml ([place])) 1 - 2 sprays NA PRN PRN PRN Reason: Nasal Dryness/Congestion Stop: 06/11/21 10:27 Mental Health & Subst Abuse Tx Psychiatrist Name of Psychiatrist: Tez Oshea Psychiatrist's Date of Appointment with Psychiatrist: 07/19/21 Time of Appointment with Psychiatrist: 8:30am Psychiatric Appointment Comment: [address] [place] [address] Therapist Name of Therapist: Unknown Underwriting Support Manager Name of Underwriting Support Manager: Mauri (BSU) Post Discharge Appointments Primary Care Physician Name Of Family Doctor: Unknown Contact Information Discharge Phone Number: update [place] with phone number
[2021-05-30] MEDS: buPROPion XL 150 MG TABCR PO SCH (12:52)
[2021-05-30] MEDS: FOLIC ACID 1 MG TAB PO SCH (19:55)
[2021-05-30] MEDS: OLANZapine 20 MG TABLET PO SCH (19:55)
[2021-05-30] MEDS: lamoTRIgine 100 MG TAB PO SCH (19:55)
--- NOTE | 2021-05-31 11:12 | Psychiatric Progress Note ---
Date of Service May 31, 2021 Impression / Recommendations Impression The patient is a 40 year old with a history of schizoaffective disorder who was admitted for failure of self-care and worsening decompensation at [facility]. His functioning is poor with inconsistent activity and PO intake despite trials of Ativan, Emsam patch, IM Zyprexa, and now Haldol on 305 commitment. For first 2 months of his stay he was not taking PO meds consistently and was largely mute though this has improved dramatically following court order for ECT which he ultimately voiced an opinion on and declined. He remains resistant to groups but is motivated to discuss housing options and take PO medication. He is now expressing preferences with regards to his care. He remains in need of inpatient psychiatric care and has no current housing which he will require housing with level of supervision and support to avoid regression back to lack of eating/self-care, etc as seen prior to his current admission. 05/31/21: more pleasant Plan: completed nail care. awaiting divorce papers. (1) Schizoaffective disorder: Risk Factors Assessment Male: Yes : Yes Do You Have Access To A Gun?: No (in supportive living enviornment, pt unable to answer ) Mental Health Diagnoses: Yes Previous Psychiatric Hospitalization: Yes Protective Factors Assessment Employed: No Interval History Identifying Information 40 yo man with history of catatonia, depression, schizoaffective disorder admitted due to concern for decompensation with failure of self-care at [facility]. Admitted on 302, now 305. Chief Complaint "I've been sleeping better since you increased the lamictal" Review of Systems Sleep Information Total Hours of Sleep: 6.5 Sleep Comments: pt on q-15 minute checks Meal Information Percent Meal Consumed - Breakfast: 100 Percent Meal Consumed - Lunch: 75 Percent Meal Consumed - Dinner: 75 Nutrition Comment: per meal record Subjective Subjective Patient was seen & assessed and interval progress reviewed with treatment team. Cooperative with outside. Some increase in ability to carry on a conversation. He was cooperative with [facility]. Physical Exam Psychiatric Orientation: alert and oriented x 3 Apperance: + disheveled Eye Contact: + fair eye contact Motor Behavior: no abnormal motor movements Speech: normal rate/rhythm/volume of speech Affect: + constricted affect Mood: no depressed mood Thought Process: goal directed thought process Thought Content: reality based without delusions Suicidal Thoughts: denies suicidal thoughts Homicidal Thoughts: denies homicidal thoughts Hallucinations: no auditory hallucinations and no visual hallucinations Cognition: attention grossly intact and language grossly intact Estimated Intelligence: consistent with education level Insight: + limited insight Judgement: + limited judgement Vital Signs (Past 24 Hours) Last Vital Signs Temp 37.3 C 05/30/21 20:12 Pulse 86 05/26/21 06:49 Resp 16 05/26/21 06:49 BP 110/64 05/26/21 06:49 Pulse Ox 94 04/03/21 20:37 Results & Data ([facility]) Current Inpatient Medications Current Inpatient Medications: Current Inpatient Medications Acetaminophen (Acetaminophen 325 Mg Tab) 650 mg PO Q4H PRN PRN Reason: Headache or Minor Fever Stop: 06/11/21 10:27 Last Admin: 03/16/21 10:34 Dose: 325 mg Documented by: Al Hydrox/Mg Hydrox/Simethicone (Aluminum/Magnesium Susp 30 Ml Udc) 30 ml PO Q4H PRN PRN Reason: GI Upset Stop: 06/11/21 10:27 Benztropine Mesylate (Benztropine Mesylate 1 Mg Tab) 1 mg PO Q6 PRN PRN Reason: Muscle Spasm Stop: 06/11/21 08:40 Bismuth Subsalicylate (Bismuth Subsalicylate Liqd 236 Ml) 15 ml PO PRN PRN PRN Reason: Loose Stool Stop: 06/11/21 02:27 Bupropion HCl ([facility]ropion Xl 150 Mg Tabcr) [facility] Stop: 06/14/21 11:59 Last Admin: 05/30/21 12:52 Dose: 150 mg Documented by: Folic Acid (Folic Acid 1 Mg Tab) 1 mg PO TODAY@1999 [facility] Stop: 06/13/21 19:59 Last Admin: 05/30/21 19:55 Dose: 1 mg Documented by: Lamotrigine (Lamotrigine 100 Mg Tab) 100 mg PO DAILY@1999 [facility] Stop: 06/27/21 19:59 Last Admin: 05/30/21 19:55 Dose: 100 mg Documented by: Lorazepam (Lorazepam 1 Mg Tab) 1 mg PO Q6 PRN PRN Reason: Anxiety/Agitation Stop: 06/11/21 08:14 Last Admin: 04/04/21 20:52 Dose: 1 mg Documented by: Magnesium Hydroxide (Magnesium Hydroxide Susp 30 Ml Udc) 30 ml PO DAILY PRN PRN Reason: Constipation Stop: 06/11/21 10:27 Olanzapine (Olanzapine 20 Mg Tablet) 20 mg PO TODAY@1999 [facility] Stop: 06/13/21 19:59 Last Admin: 05/30/21 19:55 Dose: 20 mg Documented by: Sodium Chloride (Sodium Chloride 0.65% Na Soln 45 Ml ([place])) 1 - 2 sprays NA PRN PRN PRN Reason: Nasal Dryness/Congestion Stop: 06/11/21 10:27 Mental Health & Subst Abuse Tx Psychiatrist Name of Psychiatrist: Tez Oshea Psychiatrist's Date of Appointment with Psychiatrist: 07/19/21 Time of Appointment with Psychiatrist: 8:30am Psychiatric Appointment Comment: [address] [place] [address] Therapist Name of Therapist: Unknown Senior Supplier Quality Engineer Name of Senior Supplier Quality Engineer: Mauri GunterBSU) Post Discharge Appointments Primary Care Physician Name Of Family Doctor: Unknown Contact Information Discharge Phone Number: update [place] with phone number
[2021-05-31] MEDS: buPROPion XL 150 MG TABCR PO SCH (12:18)
[2021-05-31] MEDS: FOLIC ACID 1 MG TAB PO SCH (20:24)
[2021-05-31] MEDS: lamoTRIgine 100 MG TAB PO SCH (20:24)
[2021-05-31] MEDS: OLANZapine 20 MG TABLET PO SCH (20:25)
--- NOTE | 2021-06-01 09:57 | Psychiatric Progress Note ---
Date of Service June 01, 2021 Impression / Recommendations Impression The patient is a 40 year old with a history of schizoaffective disorder who was admitted for failure of self-care and worsening decompensation at detention. His functioning is poor with inconsistent activity and PO intake despite trials of Ativan, Emsam patch, IM Zyprexa, and now Haldol on 305 commitment. For first 2 months of his stay he was not taking PO meds consistently and was largely mute though this has improved dramatically following court order for ECT which he ultimately voiced an opinion on and declined. He remains resistant to groups but is motivated to discuss housing options and take PO medication. He is now expressing preferences with regards to his care. He remains in need of inpatient psychiatric care and has no current housing which he will require housing with level of supervision and support to avoid regression back to lack of eating/self-care, etc as seen prior to his current admission. 06/01/21: remains isolative to his room for much of the day but slowly engaging more, attended group this morning with encouragement. Tolerating medications without side effects. Hygiene remains poor. Plan: reviewed interim progress from Dr. Arevalo's notes for 05/25/21-05/31/21. Continue current medications. (1) Schizoaffective disorder: 02/09/21-05/28/21: Given the patient's length of stay, this serves as a care summary which will be carried forward. He initially presented somewhat catatonic in appearance and had mixed response to Ativan challenge though ultimately it was felt that he did not present with catatonia but rather severe neurovegetative symptoms of depressive. His commitment was extended and a 2nd opinion for meds over objection was sought as he was mute, in bed with limited PO and required DVT prophylaxis and potassium repletion. After no consistent response to IM Ativan, given refusal of oral Latuda and Zyprexa he was started on Zyprexa IM with apparent worsening. An EEG and MRI were obtained which were unremarkable and care continued on an extended commitment (304). Emsam patch to treat presumed psychotic depression was acquired with some response by week 4. Neurology was consulted on 03/07/21 and had no additional recommendations. The patient was referred to the [facility] in early March given lack of progress and Haldol trial was initiated with poor PO and need for ongoing IMs. A court order was sought for ECT as treatment options had been exhausted and patient was unable to consent; the order was granted on 04/19/21. After that hearing (where he declined to participate or speak) he was more adherent with po Haldol and by 04/27/21 David voiced that he did not want ECT. Soon after he was cooperative with restart of previous medications (Lamictal, Wellbutrin, Zyprexa) and Haldol was tapered as he was refusing long acting injectable. On 05/09/21 there was a diversion meeting to look at supervised living options as [facility] of [facility]. Throughout May 2021 he remained largely socially isolated during the day but consistently took his medication, had improved attention to hygiene, spoke with staff and ate all of his meals consistently. He was Risk Factors Assessment Male: Yes : Yes Do You Have Access To A Gun?: No (in supportive living enviornment, pt unable to answer ) Mental Health Diagnoses: Yes Previous Psychiatric Hospitalization: Yes Protective Factors Assessment Employed: No Interval History Identifying Information 40 yo man with history of catatonia, depression, schizoaffective disorder admitted due to concern for decompensation with failure of self-care at [facility]. Admitted on 302, now 305. Chief Complaint "I'm ok". Review of Systems Sleep Information Total Hours of Sleep: 7 Sleep Comments: pt on q-15 minute checks Meal Information Percent Meal Consumed - Breakfast: 100 Percent Meal Consumed - Lunch: 100 Percent Meal Consumed - Dinner: 100 Nutrition Comment: per meal record Subjective Subjective Patient was seen & assessed and interval progress reviewed with treatment team nursing and social work. Remains isolative to his room for much of the day but consistently eating meals and engaging with social work regarding work on disposition planning. Also attended morning community meeting group with encouragement. Denies any side effects from his medications. Endorses feeling tired. Lying in bed with covers over his head but engaging verbally throughout interview. Reviewed that latuda prior authorization was denied which he is accepting of as he feels he is tolerating the olanzapine now. Physical Exam Psychiatric Orientation: alert and oriented x 3 Apperance: + disheveled Eye Contact: + poor eye contact Motor Behavior: no abnormal motor movements Speech: normal rate/rhythm/volume of speech Affect: + flat affect Mood: + depressed mood ("tired") Thought Process: goal directed thought process Thought Content: reality based without delusions Suicidal Thoughts: denies suicidal thoughts Homicidal Thoughts: denies homicidal thoughts Hallucinations: no auditory hallucinations and no visual hallucinations Cognition: recent memory grossly intact, remote memory grossly intact, attention grossly intact and language grossly intact Insight: + fair insight Judgement: + limited judgement Vital Signs (Past 24 Hours) Last Vital Signs Temp 37.3 C 05/31/21 20:25 Pulse 86 05/26/21 06:49 Resp 16 05/26/21 06:49 BP 110/64 05/26/21 06:49 Pulse Ox 94 04/03/21 20:37 Results & Data ([facility]) Current Inpatient Medications Current Inpatient Medications: Current Inpatient Medications Acetaminophen (Acetaminophen 325 Mg Tab) 650 mg PO Q4H PRN PRN Reason: Headache or Minor Fever Stop: 06/11/21 10:27 Last Admin: 03/16/21 10:34 Dose: 325 mg Documented by: Al Hydrox/Mg Hydrox/Simethicone (Aluminum/Magnesium Susp 30 Ml Udc) 30 ml PO Q4H PRN PRN Reason: GI Upset Stop: 06/11/21 10:27 Benztropine Mesylate (Benztropine Mesylate 1 Mg Tab) 1 mg PO Q6 PRN PRN Reason: Muscle Spasm Stop: 06/11/21 08:40 Bismuth Subsalicylate (Bismuth Subsalicylate Liqd 236 Ml) 15 ml PO PRN PRN PRN Reason: Loose Stool Stop: 06/11/21 02:27 Bupropion HCl (Bupropion Xl 150 Mg Tabcr) [facility] Stop: 06/14/21 11:59 Last Admin: 05/31/21 12:18 Dose: 150 mg Documented by: Folic Acid (Folic Acid 1 Mg Tab) 1 mg PO TODAY@1999 [facility] Stop: 06/13/21 19:59 Last Admin: 05/31/21 20:24 Dose: 1 mg Documented by: Lamotrigine (Lamotrigine 100 Mg Tab) 100 mg PO DAILY@1999 [facility] Stop: 06/27/21 19:59 Last Admin: 05/31/21 20:24 Dose: 100 mg Documented by: Lorazepam (Lorazepam 1 Mg Tab) 1 mg PO Q6 PRN PRN Reason: Anxiety/Agitation Stop: 06/11/21 08:14 Last Admin: 04/04/21 20:52 Dose: 1 mg Documented by: Magnesium Hydroxide (Magnesium Hydroxide Susp 30 Ml Udc) 30 ml PO DAILY PRN PRN Reason: Constipation Stop: 06/11/21 10:27 Olanzapine (Olanzapine 20 Mg Tablet) 20 mg PO TODAY@1999 [facility] Stop: 06/13/21 19:59 Last Admin: 05/31/21 20:25 Dose: 20 mg Documented by: Sodium Chloride (Sodium Chloride 0.65% Na Soln 45 Ml ([place])) 1 - 2 sprays NA PRN PRN PRN Reason: Nasal Dryness/Congestion Stop: 06/11/21 10:27 Mental Health & Subst Abuse Tx Psychiatrist Name of Psychiatrist: Tez Oshea Psychiatrist's Date of Appointment with Psychiatrist: 07/19/21 Time of Appointment with Psychiatrist: 8:30am Psychiatric Appointment Comment: [address] [place] [address] Therapist Name of Therapist: Unknown Business Solution Analyst Name of Business Solution Analyst: Mauri (BSU) Post Discharge Appointments Primary Care Physician Name Of Family Doctor: Unknown Contact Information Discharge Phone Number: update [place] with phone number
[2021-06-01] MEDS: buPROPion XL 150 MG TABCR PO SCH (11:44)
[2021-06-01] MEDS: OLANZapine 20 MG TABLET PO SCH (20:36)
[2021-06-01] MEDS: lamoTRIgine 100 MG TAB PO SCH (20:36)
[2021-06-01] MEDS: FOLIC ACID 1 MG TAB PO SCH (20:37)
[2021-06-02] MEDS: buPROPion XL 150 MG TABCR PO SCH (12:48)
--- NOTE | 2021-06-02 16:35 | Psychiatric Progress Note ---
Date of Service June 02, 2021 Impression / Recommendations Impression The patient is a 40 year old with a history of schizoaffective disorder who was admitted for failure of self-care and worsening decompensation at shelter. His functioning is poor with inconsistent activity and PO intake despite trials of Ativan, Emsam patch, IM Zyprexa, and now Haldol on 305 commitment. For first 2 months of his stay he was not taking PO meds consistently and was largely mute though this has improved dramatically following court order for ECT which he ultimately voiced an opinion on and declined. He remains resistant to groups but is motivated to discuss housing options and take PO medication. He is now expressing preferences with regards to his care. He remains in need of inpatient psychiatric care and has no current housing which he will require housing with level of supervision and support to avoid regression back to lack of eating/self-care, etc as seen prior to his current admission. 06/02/21: remains isolative to his room for much of the day but slowly engaging more, attending more groups. Tolerating medications without side effects. Hygiene remains poor. Plan: Presented David with paperwork his delivered regarding divorce, answered and reviewed questions he had regarding his insurance coverage. Continue current medications. (1) Schizoaffective disorder: 02/09/21-05/28/21: Given the patient's length of stay, this serves as a care summary which will be carried forward. He initially presented somewhat catatonic in appearance and had mixed response to Ativan challenge though ultimately it was felt that he did not present with catatonia but rather severe neurovegetative symptoms of depressive. His commitment was extended and a 2nd opinion for meds over objection was sought as he was mute, in bed with limited PO and required DVT prophylaxis and potassium repletion. After no consistent response to IM Ativan, given refusal of oral Latuda and Zyprexa he was started on Zyprexa IM with apparent worsening. An EEG and MRI were obtained which were unremarkable and care continued on an extended commitment (304). Emsam patch to treat presumed psychotic depression was acquired with some response by week 4. Neurology was consulted on 03/07/21 and had no additional recommendations. The patient was referred to the [facility] in early March given lack of progress and Haldol trial was initiated with poor PO and need for ongoing IMs. A court order was sought for ECT as treatment options had been exhausted and patient was unable to consent; the order was granted on 04/19/21. After that hearing (where he declined to participate or speak) he was more adherent with po Haldol and by 04/27/21 David voiced that he did not want ECT. Soon after he was cooperative with restart of previous medications (Lamictal, Wellbutrin, Zyprexa) and Haldol was tapered as he was refusing long acting injectable. On 05/09/21 there was a diversion meeting to look at supervised living options as he lost his spot at the [facility] given the length of his stay. Throughout May 2021 he remained largely socially isolated during the day but consistently took his medication, had improved attention to hygiene, spoke with staff and ate all of his meals consistently. He was Risk Factors Assessment Male: Yes : Yes Do You Have Access To A Gun?: No (in supportive living enviornment, pt unable to answer ) Mental Health Diagnoses: Yes Previous Psychiatric Hospitalization: Yes Protective Factors Assessment Employed: No Interval History Identifying Information 40 yo man with history of catatonia, depression, schizoaffective disorder admitted due to concern for decompensation with failure of self-care at [facility]. Admitted on 302, now 305. Chief Complaint "I'm not happy today". Review of Systems Sleep Information Total Hours of Sleep: 7 Sleep Comments: pt on q-15 minute checks Meal Information Percent Meal Consumed - Breakfast: 100 Percent Meal Consumed - Lunch: 100 Percent Meal Consumed - Dinner: 90 Nutrition Comment: per meal record Subjective Subjective Patient was seen & assessed and interval progress reviewed with treatment team nursing and social work. Attended two community meeting groups yesterday. Eating meals. Otherwise isolative to his room. Met with David with social work to bring his paperwork his dropped off regarding her filing for divorce. David was provided paperwork and encouraged to discuss with his legal representation and trusted family/supports which he plans to do stating that he wants to speak with legal aid prior to signing anything which was supported. He noted his mood is poor today which he attributes to "I have a difficult road ahead" and his concerns about what the new living environment will be like. He denied any medication side effects. Physical Exam Psychiatric Orientation: alert and oriented x 3 Apperance: appropriately dressed, appropriately groomed and + disheveled Eye Contact: + fair eye contact Motor Behavior: no abnormal motor movements Speech: normal rate/rhythm/volume of speech Affect: + constricted affect Mood: + depressed mood Thought Process: goal directed thought process Thought Content: reality based without delusions Suicidal Thoughts: denies suicidal intent Homicidal Thoughts: denies homicidal thoughts Hallucinations: no auditory hallucinations and no visual hallucinations Cognition: recent memory grossly intact, remote memory grossly intact, attention grossly intact and language grossly intact Estimated Intelligence: consistent with education level Insight: + impaired insight Judgement: + impaired judgement Vital Signs (Past 24 Hours) Last Vital Signs Temp 36.7 C 06/01/21 20:00 Pulse 86 05/26/21 06:49 Resp 16 05/26/21 06:49 BP 110/64 05/26/21 06:49 Pulse Ox 94 04/03/21 20:37 Results & Data ([facility]) Current Inpatient Medications Current Inpatient Medications: Current Inpatient Medications Acetaminophen (Acetaminophen 325 Mg Tab) 650 mg PO Q4H PRN PRN Reason: Headache or Minor Fever Stop: 06/11/21 10:27 Last Admin: 03/16/21 10:34 Dose: 325 mg Documented by: Al Hydrox/Mg Hydrox/Simethicone (Aluminum/Magnesium Susp 30 Ml Udc) 30 ml PO Q4H PRN PRN Reason: GI Upset Stop: 06/11/21 10:27 Benztropine Mesylate (Benztropine Mesylate 1 Mg Tab) 1 mg PO Q6 PRN PRN Reason: Muscle Spasm Stop: 06/11/21 08:40 Bismuth Subsalicylate (Bismuth Subsalicylate Liqd 236 Ml) 15 ml PO PRN PRN PRN Reason: Loose Stool Stop: 06/11/21 02:27 Bupropion HCl ([facility]l 150 Mg [facility]cr) [facility] Stop: 06/14/21 11:59 Last Admin: 06/02/21 12:48 Dose: 150 mg Documented by: Folic Acid (Folic Acid 1 Mg Tab) 1 mg PO TODAY@1999 [facility] Stop: 06/13/21 19:59 Last Admin: 06/01/21 20:37 Dose: 1 mg Documented by: Lamotrigine (Lamotrigine 100 Mg Tab) 100 mg PO DAILY@1999 [facility] Stop: 06/27/21 19:59 Last Admin: 06/01/21 20:36 Dose: 100 mg Documented by: Lorazepam (Lorazepam 1 Mg Tab) 1 mg PO Q6 PRN PRN Reason: Anxiety/Agitation Stop: 06/11/21 08:14 Last Admin: 04/04/21 20:52 Dose: 1 mg Documented by: Magnesium Hydroxide (Magnesium Hydroxide Susp 30 Ml Udc) 30 ml PO DAILY PRN PRN Reason: Constipation Stop: 06/11/21 10:27 Olanzapine (Olanzapine 20 Mg Tablet) 20 mg PO TODAY@1999 [facility] Stop: 06/13/21 19:59 Last Admin: 06/01/21 20:36 Dose: 20 mg Documented by: Sodium Chloride (Sodium Chloride 0.65% Na Soln 45 Ml ([place])) 1 - 2 sprays NA PRN PRN PRN Reason: Nasal Dryness/Congestion Stop: 06/11/21 10:27 Mental Health & Subst Abuse Tx Psychiatrist Name of Psychiatrist: Tez Oshea Psychiatrist's Date of Appointment with Psychiatrist: 07/19/21 Time of Appointment with Psychiatrist: 8:30am Psychiatric Appointment Comment: [address] [place] [address] Therapist Name of Therapist: Unknown Second Facing Baster Name of Second Facing Baster: Mauri MATTHEWS) Post Discharge Appointments Primary Care Physician Name Of Family Doctor: Unknown Contact Information Discharge Phone Number: update [place] with phone number
[2021-06-02] MEDS: OLANZapine 20 MG TABLET PO SCH (20:39)
[2021-06-02] MEDS: lamoTRIgine 100 MG TAB PO SCH (20:40)
[2021-06-02] MEDS: FOLIC ACID 1 MG TAB PO SCH (20:40)
[2021-06-03] MEDS: buPROPion XL 150 MG TABCR PO SCH (12:40)
--- NOTE | 2021-06-03 15:25 | Psychiatric Progress Note ---
Date of Service June 03, 2021 Impression / Recommendations Impression The patient is a 40 year old with a history of schizoaffective disorder who was admitted for failure of self[facility] and [facility] at [facility]. His functioning is poor with inconsistent activity and PO intake despite trials of Ativan, Emsam patch, IM Zyprexa, and now Haldol on 305 commitment. For first 2 months of his stay he was not taking PO meds consistently and was largely mute though this has improved dramatically following court order for ECT which he ultimately voiced an opinion on and declined. He remains resistant to groups but is motivated to discuss housing options and take PO medication. He is now expressing preferences with regards to his care. He remains in need of inpatient psychiatric care and has no current housing which he will require housing with level of supervision and support to avoid regression back to lack of eating/self-care, etc as seen prior to his current admission. 06/03/21: remains isolative to his room for much of the day but engaging more, eating consistently. Tolerating medications without side effects, some spotting in his vision which sounds like floaters, he denies his eyes are dry, encouraged him to open blinds during the day and increase exposure to sunlight during the day. Hygiene remains poor. Plan: Continue current medications. Reviewed with him common side effects from olanzapine including potential eye-related side effects and provided him with handouts of common ophthalmological side effects that can occur with antipsychotic medication. (1) Schizoaffective disorder: 02/09/21-06/03/21: Given the patient's length of stay, this serves as a care summary which will be carried forward. He initially presented somewhat catatonic in appearance and had mixed response to Ativan challenge though ultimately it was felt that he did not present with catatonia but rather severe neurovegetative symptoms of depressive. His commitment was extended and a 2nd opinion for meds over objection was sought as he was mute, in bed with limited PO and required DVT prophylaxis and potassium repletion. After no consistent response to IM Ativan, given refusal of oral Latuda and Zyprexa he was started on Zyprexa IM with apparent worsening. An EEG and MRI were obtained which were unremarkable and care continued on an extended commitment (304). Emsam patch to treat presumed psychotic depression was acquired with some response by week 4. Neurology was consulted on 03/07/21 and had no additional recommendations. The patient was [facility] early March given lack of progress and Haldol trial was initiated with poor PO and need for ongoing IMs. A court order was sought for ECT as treatment options had been exhausted and patient was unable to consent; the order was granted on 04/19/21. After that hearing (where he declined to participate or speak) he was more adherent with po Haldol and by 04/27/21 David voiced that he did not want ECT. Soon after he was cooperative with restart of previous medications (Lamictal, Wellbutrin, Zyprexa) and Haldol was tapered as he was refusing long acting injectable. On 05/09/21 there was a diversion meeting to look at supervised living options as [facility] given the length of his stay. Throughout May 2021 he remained largely socially isolated during the day but consistently took his medication, had improved attention to hygiene, spoke with staff and ate all of his meals consistently. He was Risk Factors Assessment Male: Yes : Yes Do You Have Access To A Gun?: No (in supportive living enviornment, pt unable to answer ) Mental Health Diagnoses: Yes Previous Psychiatric Hospitalization: Yes Protective Factors Assessment Employed: No Interval History Identifying Information 40 yo man with history of catatonia, depression, schizoaffective disorder admitted due to concern for decompensation with failure of self-care at [facility]. Admitted on 302, now 305. Chief Complaint "I'm ok". Review of Systems Sleep Information Total Hours of Sleep: 6.75 Sleep Comments: pt on q-15 minute checks Meal Information Percent Meal Consumed - Breakfast: 100 Percent Meal Consumed - Lunch: 100 Percent Meal Consumed - Dinner: 100 Nutrition Comment: per meal record Subjective Subjective Patient was seen & assessed and interval progress reviewed with treatment team nursing and social work. Reports his mood is "ok" though remains somewhat anxious about what staff will be like at his new living situation as he worries they will be young and "incompetent". He wondered if visual side effects could o ccur with olanzapine as he had previously heard from a peer while at the [facility] that seroquel was better for your eyes. We reviewed potential eye side effects from olanzapine including dryness, cataracts, worsening of glaucoma. David denied having any of these side effects and reported feeling reassured. Stated at times he has brief spots in his vision. Denied sudden curtain over visual, loss of total vision, associated FOWLER/migraine sx and denied this occurs with sudden changes in position or lightheadedness. He agreed to let us know should this get worry or interfere at all with his activities. Physical Exam Psychiatric Orientation: alert and oriented x 3 Apperance: + disheveled Eye Contact: + poor eye contact Motor Behavior: no abnormal motor movements; n akathisia Speech: normal rate/rhythm/volume of speech Affect: + flat affect Mood: + depressed mood Thought Process: goal directed thought process Thought Content: reality based without delusions Suicidal Thoughts: denies suicidal thoughts Homicidal Thoughts: denies homicidal thoughts Hallucinations: no auditory hallucinations and no visual hallucinations Cognition: recent memory grossly intact, remote memory grossly intact, attention grossly intact and language grossly intact Estimated Intelligence: consistent with education level Insight: + impaired insight Judgement: + impaired judgement Vital Signs (Past 24 Hours) Last Vital Signs Temp 35.9 C L 06/02/21 20:00 Pulse 81 06/03/21 06:46 Resp 16 06/03/21 06:46 BP 101/67 06/03/21 06:46 Pulse Ox 94 04/03/21 20:37 Results & Data ([facility]) Current Inpatient Medications Current Inpatient Medications: Current Inpatient Medications Acetaminophen (Acetaminophen 325 Mg Tab) 650 mg PO Q4H PRN PRN Reason: Headache or Minor Fever Stop: 06/11/21 10:27 Last Admin: 03/16/21 10:34 Dose: 325 mg Documented by: Al Hydrox/Mg Hydrox/Simethicone (Aluminum/Magnesium Susp 30 Ml Udc) 30 ml PO Q4H PRN PRN Reason: GI Upset Stop: 06/11/21 10:27 Benztropine Mesylate (Benztropine Mesylate 1 Mg Tab) 1 mg PO Q6 PRN PRN Reason: Muscle Spasm Stop: 06/11/21 08:40 Bismuth Subsalicylate (Bismuth Subsalicylate Liqd 236 Ml) 15 ml PO PRN PRN PRN Reason: Loose Stool Stop: 06/11/21 02:27 Bupropion HCl (Bupropion Xl 150 Mg Tabcr) 150 mg PO DAILYBL OG Stop: 06/14/21 11:59 Last Admin: 06/03/21 12:40 Dose: 150 mg Documented by: Folic Acid (Folic Acid 1 Mg Tab) 1 mg PO TODAY@1999 [facility] Stop: 06/13/21 19:59 Last Admin: 06/02/21 20:40 Dose: 1 mg Documented by: Lamotrigine (Lamotrigine 100 Mg Tab) 100 mg PO DAILY@1999 [facility] Stop: 06/27/21 19:59 Last Admin: 06/02/21 20:40 Dose: 100 mg Documented by: Lorazepam (Lorazepam 1 Mg Tab) 1 mg PO Q6 PRN PRN Reason: Anxiety/Agitation Stop: 06/11/21 08:14 Last Admin: 04/04/21 20:52 Dose: 1 mg Documented by: Magnesium Hydroxide (Magnesium Hydroxide Susp 30 Ml Udc) 30 ml PO DAILY PRN PRN Reason: Constipation Stop: 06/11/21 10:27 Olanzapine (Olanzapine 20 Mg Tablet) 20 mg PO TODAY@1999 [facility] Stop: 06/13/21 19:59 Last Admin: 06/02/21 20:39 Dose: 20 mg Documented by: Sodium Chloride (Sodium Chloride 0.65% Na Soln 45 Ml ([place])) 1 - 2 sprays NA PRN PRN PRN Reason: Nasal Dryness/Congestion Stop: 06/11/21 10:27 Mental Health & Subst Abuse Tx Psychiatrist Name of Psychiatrist: Tez Oshea Psychiatrist's Date of Appointment with Psychiatrist: 07/19/21 Time of Appointment with Psychiatrist: 8:30am Psychiatric Appointment Comment: [address] [place] [address] Therapist Name of Therapist: . Supervisor Specialty Plant Name of Supervisor Specialty Plant: ANA PAULA Castro Post Discharge Appointments Primary Care Physician Name Of Family Doctor: Negro Primary Care Provider Appointment Comment: [address] Contact Information Discharge Phone Number: update Chayo with phone number
[2021-06-03] MEDS: FOLIC ACID 1 MG TAB PO SCH (19:37)
[2021-06-03] MEDS: lamoTRIgine 100 MG TAB PO SCH (19:38)
[2021-06-03] MEDS: OLANZapine 20 MG TABLET PO SCH (19:38)
[2021-06-04] MEDS: buPROPion XL 150 MG TABCR PO SCH (14:28)
--- NOTE | 2021-06-04 16:00 | Psychiatric Progress Note ---
Date of Service June 04, 2021 Impression / Recommendations Impression The patient is a 40 year old with a history of schizoaffective disorder who was admitted for failure of self[facility]care and [facility]. His functioning is poor with inconsistent activity and PO intake despite trials of Ativan, Emsam patch, IM Zyprexa, and now Haldol on 305 commitment. For first 2 months of his stay he was not taking PO meds consistently and was largely mute though this has improved dramatically following court order for ECT which he ultimately voiced an opinion on and declined. He remains resistant to groups but is motivated to discuss housing options and take PO medication. He is now expressing preferences with regards to his care. He remains in need of inpatient psychiatric care and has no current housing which he will require housing with level of supervision and support to avoid regression back to lack of eating/self-care, etc as seen prior to his current admission. 06/04/21: remains isolative to his room for much of the day but engaging more, eating consistently. Tolerating medications without side effects, no vision changes today. Hygiene remains poor. He is not interested in increasing dose of Wellbutrin. Plan: Continue current medications. Reviewed option to increase Wellbutrin to help with motivation and mood which he declines at this time. (1) Schizoaffective disorder: 02/09/21-06/04/21: Given the patient's length of stay, this serves as a care summary which will be carried forward. He initially presented somewhat catatonic in appearance and had mixed response to Ativan challenge though ultimately it was felt that he did not present with catatonia but rather severe neurovegetative symptoms of depressive. His commitment was extended and a 2nd opinion for meds over objection was sought as he was mute, in bed with limited PO and required DVT prophylaxis and potassium repletion. After no consistent response to IM Ativan, given refusal of oral Latuda and Zyprexa he was started on Zyprexa IM with apparent worsening. An EEG and MRI were obtained which were unremarkable and care continued on an extended commitment (304). Emsam patch to treat presumed psychotic depression was acquired with some response by week 4. Neurology was consulted on 03/07/21 and had no additional recommendations. The patient was referred to the [facility] in early March given lack of progress and Haldol trial was initiated with poor PO and need for ongoing IMs. A court order was sought for ECT as treatment options had been exhausted and patient was unable to consent; the order was granted on 04/19/21. After that hearing (where he declined to participate or speak) he was more adherent with po Haldol and by 04/27/21 David voiced that he did not want ECT. Soon after he was cooperative with restart of previous medications (Lamictal, Wellbutrin, Zyprexa) and Haldol was tapered as he was refusing long acting injectable. On 05/09/21 there was a diversion meeting to look at supervised living options as [facility] lost [facility] spot [facility] given the length of his stay. Throughout May 2021 he remained largely socially isolated during the day but consistently took his medication, had improved attention to hygiene, spoke with staff and ate all of his meals consistently. He declined making any medication adjustments to his Wellbutrin. Continued to tolerate his medications without any side effects. Risk Factors Assessment Male: Yes : Yes Do You Have Access To A Gun?: No (in supportive living enviornment, pt unable to answer ) Mental Health Diagnoses: Yes Previous Psychiatric Hospitalization: Yes Protective Factors Assessment Employed: No Interval History Identifying Information 40 yo man with history of catatonia, depression, schizoaffective disorder admitted due to concern for decompensation with failure of self-care at [facility]. Admitted on 302, now 305. Chief Complaint "I'm ok". Review of Systems Sleep Information Total Hours of Sleep: 6.5 Sleep Comments: pt on q-15 minute checks Meal Information Percent Meal Consumed - Breakfast: 100 Percent Meal Consumed - Lunch: 70 Percent Meal Consumed - Dinner: 100 Nutrition Comment: per meal record Subjective Subjective Patient was seen & assessed and interval progress reviewed with treatment team nursing and social work. Remains isolative to his room for most of the day but eating all meals in the dining room. States his mood is "sad". Cannot/does not expand on this. Denies SI. Discussed article regarding potential ophthalmological side effects with antipsychotic medications. He denies any worsening of eye symptoms and had one of his blinds open today. Agrees that eye fatigue at the end of the day could be due to reading in dark room with lights off and blinds closed all day. Reviewed his medications, he doesn't want to make any changes, denies any side effects. Physical Exam Psychiatric Orientation: alert and oriented x 3 Apperance: appropriately dressed and + disheveled Eye Contact: + poor eye contact Motor Behavior: n EPS and n tremor Speech: normal rate/rhythm/volume of speech Affect: + flat affect Mood: + depressed mood Thought Process: goal directed thought process Thought Content: reality based without delusions Suicidal Thoughts: denies suicidal thoughts Homicidal Thoughts: denies homicidal thoughts Hallucinations: no auditory hallucinations and no visual hallucinations Cognition: recent memory grossly intact, remote memory grossly intact, attention grossly intact and language grossly intact Estimated Intelligence: consistent with education level Insight: + impaired insight Judgement: + impaired judgement Vital Signs (Past 24 Hours) Last Vital Signs Temp 36.9 C 06/03/21 20:18 Pulse 89 06/04/21 06:34 Resp 16 06/04/21 06:34 BP 100/64 06/04/21 06:34 Pulse Ox 94 04/03/21 20:37 Results & Data ([facility]) Current Inpatient Medications Current Inpatient Medications: Current Inpatient Medications Acetaminophen (Acetaminophen 325 Mg Tab) 650 mg PO Q4H PRN PRN Reason: Headache or Minor Fever Stop: 06/11/21 10:27 Last Admin: 03/16/21 10:34 Dose: 325 mg Documented by: Al Hydrox/Mg Hydrox/Simethicone (Aluminum/Magnesium Susp 30 Ml Udc) 30 ml PO Q4H PRN PRN Reason: GI Upset Stop: 06/11/21 10:27 Benztropine Mesylate (Benztropine Mesylate 1 Mg Tab) 1 mg PO Q6 PRN PRN Reason: Muscle Spasm Stop: 06/11/21 08:40 Bismuth Subsalicylate (Bismuth Subsalicylate Liqd 236 Ml) 15 ml PO PRN PRN PRN Reason: Loose Stool Stop: 06/11/21 02:27 Bupropion HCl (Bupropion Xl 150 Mg Tabcr) 150 mg PO DAILYBL [facility] Stop: 06/14/21 11:59 Last Admin: 06/04/21 14:28 Dose: 150 mg Documented by: Folic Acid (Folic Acid 1 Mg Tab) 1 mg PO TODAY@1999 [facility] Stop: 06/13/21 19:59 Last Admin: 06/03/21 19:37 Dose: 1 mg Documented by: Lamotrigine (Lamotrigine 100 Mg Tab) 100 mg PO DAILY@1999 [facility] Stop: 06/27/21 19:59 Last Admin: 06/03/21 19:38 Dose: 100 mg Documented by: Lorazepam (Lorazepam 1 Mg Tab) 1 mg PO Q6 PRN PRN Reason: Anxiety/Agitation Stop: 06/11/21 08:14 Last Admin: 04/04/21 20:52 Dose: 1 mg Documented by: Magnesium Hydroxide (Magnesium Hydroxide Susp 30 Ml Udc) 30 ml PO DAILY PRN PRN Reason: Constipation Stop: 06/11/21 10:27 Olanzapine (Olanzapine 20 Mg Tablet) 20 mg PO TODAY@1999 [facility] Stop: 06/13/21 19:59 Last Admin: 06/03/21 19:38 Dose: 20 mg Documented by: Sodium Chloride (Sodium Chloride 0.65% Na Soln 45 Ml ([place])) 1 - 2 sprays NA PRN PRN PRN Reason: Nasal Dryness/Congestion Stop: 06/11/21 10:27 Mental Health & Subst Abuse Tx Psychiatrist Name of Psychiatrist: Tez Oshea Psychiatrist's Date of Appointment with Psychiatrist: 07/19/21 Time of Appointment with Psychiatrist: 8:30am Psychiatric Appointment Comment: [address] [place] [address] Therapist Name of Therapist: . Canceling Machine Operator Name of Canceling Machine Operator: ANA PAULA Castro Post Discharge Appointments Primary Care Physician Name Of Family Doctor: Negro Primary Care Provider Appointment Comment: [address] Contact Information Discharge Phone Number: update Chayo with phone number
[2021-06-04] MEDS: OLANZapine 20 MG TABLET PO SCH (20:16)
[2021-06-04] MEDS: FOLIC ACID 1 MG TAB PO SCH (20:16)
[2021-06-04] MEDS: lamoTRIgine 100 MG TAB PO SCH (20:16)
[2021-06-05] MEDS: buPROPion XL 150 MG TABCR PO SCH (13:16)
--- NOTE | 2021-06-05 16:45 | Psychiatric Progress Note ---
Date of Service June 05, 2021 Impression / Recommendations Impression The patient is a 40 year old with a history of schizoaffective disorder who was admitted for failure of self-care and worsening decompensation at [facility]. His functioning is poor with inconsistent activity and PO intake despite trials of Ativan, Emsam patch, IM Zyprexa, and now Haldol on 305 commitment. For first 2 months of his stay he was not taking PO meds consistently and was largely mute though this has improved dramatically following court order for ECT which he ultimately voiced an opinion on and declined. He remains resistant to groups but is motivated to discuss housing options and take PO medication. He is now expressing preferences with regards to his care. He remains in need of inpatient psychiatric care and has no current housing which he will require housing with level of supervision and support to avoid regression back to lack of eating/self-care, etc as seen prior to his current admission. 06/05/21: remains isolative to his room for much of the day but engaging more, eating consistently. Tolerating medications without side effects Hygiene remains poor, goal of showering today. Plan: Continue current medications. Motivational interviewing done regarding showering and attending to hygiene. (1) Schizoaffective disorder: 02/09/21-06/05/21: Given the patient's length of stay, this serves as a care summary which will be carried forward. He initially presented somewhat catatonic in appearance and had mixed response to Ativan challenge though ultimately it was felt that he did not present with catatonia but rather severe neurovegetative symptoms of depressive. His commitment was extended and a 2nd opinion for meds over objection was sought as he was mute, in bed with limited PO and required DVT prophylaxis and potassium repletion. After no consistent response to IM Ativan, given refusal of oral Latuda and Zyprexa he was started on Zyprexa IM with apparent worsening. An EEG and MRI were obtained which were unremarkable and care continued on an extended commitment (304). Emsam patch to treat presumed psychotic depression was acquired with some response by week 4. Neurology was consulted on 03/07/21 and had no additional recommendations. The patient was referred to the [facility] in early March given lack of progress and Haldol trial was initiated with poor PO and need for ongoing IMs. A court order was sought for ECT as treatment options had been exhausted and patient was unable to consent; the order was granted on 04/19/21. After that hearing (where he declined to participate or speak) he was more adherent with po Haldol and by 04/27/21 David voiced that he did not want ECT. Soon after he was cooperative with restart of previous medications (Lamictal, Wellbutrin, Zyprexa) and Haldol was tapered as he was refusing long acting injectable. On 05/09/21 there was a diversion meeting to look at supervised living options as [facility] given the length of his stay. Throughout May 2021 he remained largely socially isolated during the day but consistently took his medication, had improved attention to hygiene, spoke with staff and ate all of his meals consistently. He declined making any medication adjustments to his Wellbutrin. Continued to tolerate his medications without any side effects. Risk Factors Assessment Male: Yes : Yes Do You Have Access To A Gun?: No (in supportive living enviornment, pt unable to answer ) Mental Health Diagnoses: Yes Previous Psychiatric Hospitalization: Yes Protective Factors Assessment Employed: No Interval History Identifying Information 40 yo man with history of catatonia, depression, schizoaffective disorder admitted due to concern for decompensation with failure of self-care at [facility]. Admitted on 302, now 305. Chief Complaint "I'm ok". Review of Systems Sleep Information Total Hours of Sleep: 6 Sleep Comments: pt on q-15 minute checks Meal Information Percent Meal Consumed - Breakfast: 100 Percent Meal Consumed - Lunch: 100 Percent Meal Consumed - Dinner: 90 Nutrition Comment: per meal record Subjective Subjective Patient was seen & assessed and interval progress reviewed with treatment team nursing and social work. Remains isolative to his room with exception of meals. Goal of showering today. Less talkative today but denies any medication side effects nor concerns. He endorsed fair sleep last night. Has been eating well and enjoys specific meal items which he will request like breakfast sandwiches. Endorses stable mood. Physical Exam Psychiatric Orientation: alert and oriented x 3 Apperance: + disheveled Eye Contact: + poor eye contact Motor Behavior: no abnormal motor movements; n EPS Speech: normal rate/rhythm/volume of speech Affect: + constricted affect Mood: + depressed mood Thought Process: + concrete thought process Thought Content: reality based without delusions Suicidal Thoughts: denies suicidal thoughts Homicidal Thoughts: denies homicidal thoughts Hallucinations: no auditory hallucinations and no visual hallucinations Cognition: recent memory grossly intact, remote memory grossly intact, attention grossly intact and language grossly intact Estimated Intelligence: consistent with education level Insight: + impaired insight Judgement: + impaired judgement Vital Signs (Past 24 Hours) Last Vital Signs Temp 37.1 C 06/04/21 20:39 Pulse 89 06/04/21 06:34 Resp 16 06/04/21 06:34 BP 100/64 06/04/21 06:34 Pulse Ox 94 04/03/21 20:37 Results & Data ([facility]) Current Inpatient Medications Current Inpatient Medications: Current Inpatient Medications Acetaminophen (Acetaminophen 325 Mg Tab) 650 mg PO Q4H PRN PRN Reason: Headache or Minor Fever Stop: 06/11/21 10:27 Last Admin: 03/16/21 10:34 Dose: 325 mg Documented by: Al Hydrox/Mg Hydrox/Simethicone (Aluminum/Magnesium Susp 30 Ml Udc) 30 ml PO Q4H PRN PRN Reason: GI Upset Stop: 06/11/21 10:27 Benztropine Mesylate (Benztropine Mesylate 1 Mg Tab) 1 mg PO Q6 PRN PRN Reason: Muscle Spasm Stop: 06/11/21 08:40 Bismuth Subsalicylate (Bismuth Subsalicylate Liqd 236 Ml) 15 ml PO PRN PRN PRN Reason: Loose Stool Stop: 06/11/21 02:27 Bupropion HCl ([facility] Xl 150 Mg Tabcr) [facility] Stop: 06/14/21 11:59 Last Admin: 06/05/21 13:16 Dose: 150 mg Documented by: Folic Acid (Folic Acid 1 Mg Tab) 1 mg PO TODAY@1999 [facility] Stop: 06/13/21 19:59 Last Admin: 06/04/21 20:16 Dose: 1 mg Documented by: Lamotrigine (Lamotrigine 100 Mg Tab) 100 mg PO DAILY@1999 [facility] Stop: 06/27/21 19:59 Last Admin: 06/04/21 20:16 Dose: 100 mg Documented by: Lorazepam (Lorazepam 1 Mg Tab) 1 mg PO Q6 PRN PRN Reason: Anxiety/Agitation Stop: 06/11/21 08:14 Last Admin: 04/04/21 20:52 Dose: 1 mg Documented by: Magnesium Hydroxide (Magnesium Hydroxide Susp 30 Ml Udc) 30 ml PO DAILY PRN PRN Reason: Constipation Stop: 06/11/21 10:27 Olanzapine (Olanzapine 20 Mg Tablet) 20 mg PO TODAY@1999 [facility] Stop: 06/13/21 19:59 Last Admin: 06/04/21 20:16 Dose: 20 mg Documented by: Sodium Chloride (Sodium Chloride 0.65% Na Soln 45 Ml ([place])) 1 - 2 sprays NA PRN PRN PRN Reason: Nasal Dryness/Congestion Stop: 06/11/21 10:27 Mental Health & Subst Abuse Tx Psychiatrist Name of Psychiatrist: Tez Oshea Psychiatrist's Date of Appointment with Psychiatrist: 07/19/21 Time of Appointment with Psychiatrist: 8:30am Psychiatric Appointment Comment: [address] [place] [address] Therapist Name of Therapist: . Drying Frame Operator Name of Drying Frame Operator: ANA PAULA Castro Post Discharge Appointments Primary Care Physician Name Of Family Doctor: Negro Primary Care Provider Appointment Comment: [address] Contact Information Discharge Phone Number: update Chayo with phone number
[2021-06-05] MEDS: OLANZapine 20 MG TABLET PO SCH (20:44)
[2021-06-05] MEDS: FOLIC ACID 1 MG TAB PO SCH (20:44)
[2021-06-05] MEDS: lamoTRIgine 100 MG TAB PO SCH (20:44)
[2021-06-06] MEDS: buPROPion XL 150 MG TABCR PO SCH (13:00)
--- NOTE | 2021-06-06 14:49 | Psychiatric Progress Note ---
Date of Service June 06, 2021 Impression / Recommendations Impression The patient is a 40 year old with a history of schizoaffective disorder who was admitted for failure of self-care and [facility]ensation at [facility]. His functioning is poor with inconsistent activity and PO intake despite trials of Ativan, Emsam patch, IM Zyprexa, and now Haldol on 305 commitment. For first 2 months of his stay he was not taking PO meds consistently and was largely mute though this has improved dramatically following court order for ECT which he ultimately voiced an opinion on and declined. He remains resistant to groups but is motivated to discuss housing options and take PO medication. He is now expressing preferences with regards to his care. He remains in need of inpatient psychiatric care and has no current housing; he will require housing with level of supervision and support to avoid regression back to lack of eating/self-care, etc as seen prior to his current admission. 06/06/21: remains isolative to his room for much of the day but engaging more, eating consistently. Tolerating medications without side effects. Showered yesterday. Unfortunately unable to accommodate his request to go outside today due to staffing but plan for going outside tomorrow pending staffing availability. Plan: Continue current medications. Reviewed how to go about scheduling COVID booster vaccine after he leaves the hospital. (1) Schizoaffective disorder: 02/09/21-06/06/21: Given the patient's length of stay, this serves as a care summary which will be carried forward. He initially presented somewhat catatonic in appearance and had mixed response to Ativan challenge though ultimately it was felt that he did not present with catatonia but rather severe neurovegetative symptoms of depressive. His commitment was extended and a 2nd o fauzia for meds over objection was sought as he was mute, in bed with limited PO and required DVT prophylaxis and potassium repletion. After no consistent response to IM Ativan, given refusal of oral Latuda and Zyprexa he was started on Zyprexa IM with apparent worsening. An EEG and MRI were obtained which were unremarkable and care continued on an extended commitment (304). Emsam patch to treat presumed psychotic depression was acquired with some response by week 4. Neurology was consulted on 03/07/21 and had no additional recommendations. The patient was referred to the [facility] in early March given lack of progress and Haldol trial was initiated with poor PO and need for ongoing IMs. A court order was sought for ECT as treatment options had been exhausted and patient was unable to consent; the order was granted on 04/19/21. After that hearing (where he declined to participate or speak) he was more adherent with po Haldol and by 04/27/21 David voiced that he did not want ECT. Soon after he was cooperative with restart of previous medications (Lamictal, Wellbutrin, Zyprexa) and Haldol was tapered as he was refusing long acting injectable. On 05/09/21 there was a diversion meeting to look at supervised living options as he lost [facility] spot [facility] given the length of his stay. Throughout May 2021 he remained largely socially isolated during the day but consistently took his medication, had improved attention to hygiene, spoke with staff and ate all of his meals consistently. He declined making any medication adjustments to his Wellbutrin. He continued to tolerate his medications without any side effects and became more future-oriented regarding his plans after discharge. Risk Factors Assessment Male: Yes : Yes Do You Have Access To A Gun?: No (in supportive living enviornment, pt unable to answer ) Mental Health Diagnoses: Yes Previous Psychiatric Hospitalization: Yes Protective Factors Assessment Employed: No Interval History Identifying Information 40 yo man with history of catatonia, depression, schizoaffective disorder admitted due to concern for decompensation with failure of self-care at [facility]. Admitted on 302, now 305. Chief Complaint "I'm ok". Review of Systems Sleep Information Total Hours of Sleep: 6 Sleep Comments: pt on q-15 minute checks Meal Information Percent Meal Consumed - Breakfast: 100 Percent Meal Consumed - Lunch: 100 Percent Meal Consumed - Dinner: 100 Nutrition Comment: per meal record Subjective Subjective Patient was seen & assessed and interval progress reviewed with treatment team nursing and social work. David was isolative to his room last night but did take a shower. Today he reports interest in going outside and we review information on how to get COVID booster shot (unfortunately not available in the inpatient setting but discussed process for getting it as an outpatient). He's interested in speaking with his amish manager salt ajith. He denies any medication side effects and reports stable mood. Denies any concerns other than eagerness to have an update regarding progress of staff training for new housing option/dispo plan. Physical Exam Psychiatric Orientation: alert and oriented x 3 Apperance: appropriately dressed and appropriately groomed Eye Contact: + fair eye contact Motor Behavior: no abnormal motor movements Speech: normal rate/rhythm/volume of speech Affect: + flat affect Mood: + depressed mood Thought Process: goal directed thought process Thought Content: reality based without delusions Suicidal Thoughts: denies suicidal thoughts Homicidal Thoughts: denies homicidal thoughts Hallucinations: no auditory hallucinations and no visual hallucinations Cognition: recent memory grossly intact, remote memory grossly intact, attention grossly intact and language grossly intact Estimated Intelligence: consistent with education level Insight: + fair insight Judgement: + impaired judgement Vital Signs (Past 24 Hours) Last Vital Signs Temp 36.9 C 06/05/21 20:31 Pulse 89 06/04/21 06:34 Resp 16 06/04/21 06:34 BP 100/64 06/04/21 06:34 Pulse Ox 94 04/03/21 20:37 Results & Data ([facility]) Current Inpatient Medications Current Inpatient Medications: Current Inpatient Medications Acetaminophen (Acetaminophen 325 Mg Tab) 650 mg PO Q4H PRN PRN Reason: Headache or Minor Fever Stop: 06/11/21 10:27 Last Admin: 03/16/21 10:34 Dose: 325 mg Documented by: Al Hydrox/Mg Hydrox/Simethicone (Aluminum/Magnesium Susp 30 Ml Udc) 30 ml PO Q4H PRN PRN Reason: GI Upset Stop: 06/11/21 10:27 Benztropine Mesylate (Benztropine Mesylate 1 Mg Tab) 1 mg PO Q6 PRN PRN Reason: Muscle Spasm Stop: 06/11/21 08:40 Bismuth Subsalicylate (Bismuth Subsalicylate Liqd 236 Ml) 15 ml PO PRN PRN PRN Reason: Loose Stool Stop: 06/11/21 02:27 Bupropion HCl (Bupropion Xl 150 Mg Tabcr) [facility] Stop: 06/14/21 11:59 Last Admin: 06/06/21 13:00 Dose: 150 mg Documented by: Folic Acid (Folic Acid 1 Mg Tab) 1 mg PO TODAY@1999 [facility] Stop: 06/13/21 19:59 Last Admin: 06/05/21 20:44 Dose: 1 mg Documented by: Lamotrigine (Lamotrigine 100 Mg Tab) 100 mg PO DAILY@1999 [facility] Stop: 06/27/21 19:59 Last Admin: 06/05/21 20:44 Dose: 100 mg Documented by: Lorazepam (Lorazepam 1 Mg Tab) 1 mg PO Q6 PRN PRN Reason: Anxiety/Agitation Stop: 06/11/21 08:14 Last Admin: 04/04/21 20:52 Dose: 1 mg Documented by: Magnesium Hydroxide (Magnesium Hydroxide Susp 30 Ml Udc) 30 ml PO DAILY PRN PRN Reason: Constipation Stop: 06/11/21 10:27 Olanzapine (Olanzapine 20 Mg Tablet) 20 mg PO TODAY@1999 [facility] Stop: 06/13/21 19:59 Last Admin: 06/05/21 20:44 Dose: 20 mg Documented by: Sodium Chloride (Sodium Chloride 0.65% Na Soln 45 Ml ([place])) 1 - 2 sprays NA PRN PRN PRN Reason: Nasal Dryness/Congestion Stop: 06/11/21 10:27 Mental Health & Subst Abuse Tx Psychiatrist Name of Psychiatrist: Tez Oshea Psychiatrist's Date of Appointment with Psychiatrist: 07/19/21 Time of Appointment with Psychiatrist: 8:30am Psychiatric Appointment Comment: [address] [place] [address] Therapist Name of Therapist: . Lumber Planer Name of Lumber Planer: ANA PAULA Castro Post Discharge Appointments Primary Care Physician Name Of Family Doctor: Negro Primary Care Provider Appointment Comment: Yessica Montero Contact Information Discharge Phone Number: update Chayo with phone number
[2021-06-06] MEDS: OLANZapine 20 MG TABLET PO SCH (21:05)
[2021-06-06] MEDS: lamoTRIgine 100 MG TAB PO SCH (21:06)
[2021-06-06] MEDS: FOLIC ACID 1 MG TAB PO SCH (21:06)
[2021-06-07] MEDS: buPROPion XL 150 MG TABCR PO SCH (12:47)
--- NOTE | 2021-06-07 15:45 | Psychiatric Progress Note ---
Date of Service June 07, 2021 Impression / Recommendations Impression The patient is a 40 year old with a history of schizoaffective disorder who was admitted for failure of self-care and worsening decompensation at skilled nursing. His functioning is poor with inconsistent activity and PO intake despite trials of Ativan, Emsam patch, IM Zyprexa, and now Haldol on 305 commitment. For first 2 months of his stay he was not taking PO meds consistently and was largely mute though this has improved dramatically following court order for ECT which he ultimately voiced an opinion on and declined. He remains resistant to groups but is motivated to discuss housing options and take PO medication. He is now expressing preferences with regards to his care. He remains in need of inpatient psychiatric care and has no current housing; he will require housing with level of supervision and support to avoid regression back to lack of eating/self-care, etc as seen prior to his current admission. 06/07/21: remains isolative to his room for much of the day but engaging more, eating consistently. Tolerating medications without side effects. Showered on 06/05. Continuing to encourage increased social engagement and attention to hygiene. Plan: Continue current medications. Ongoing motivational inteviewing regarding behavioral activation strategies such as opening blinds, showering, walking around the unit, establishing daily habits (ie. brushing teeth, changing clothes, talking to supports). (1) Schizoaffective disorder: 02/09/21-06/07/21: Given the patient's length of stay, this serves as a care summary which will be carried forward. He initially presented somewhat catatonic in appearance and had mixed response to Ativan challenge though ultimately it was felt that he did not present with catatonia but rather severe neurovegetative symptoms of depressive. His commitment was extended and a 2nd opinion for meds over objection was sought as he was mute, in bed with limited PO and required DVT prophylaxis and potassium repletion. After no consistent response to IM Ativan, given refusal of oral Latuda and Zyprexa he was started on Zyprexa IM with apparent worsening. An EEG and MRI were obtained which were unremarkable and care continued on an extended commitment (304). Emsam patch to treat presumed psychotic depression was acquired with some response by week 4. Neurology was consulted on 03/07/21 and had no additional recommendations. The patient was referred to the [facility] in early March given lack of progress and Haldol trial was initiated with poor PO adherence and need for ongoing IMs. A court order was sought for ECT as treatment options had been exhausted and patient was unable to consent; the order was granted on 04/19/21. After that hearing (where he declined to participate or speak) he was more adherent with po Haldol and by 04/27/21 David voiced that he did not want ECT. Soon after he was cooperative with restart of previous medications (Lamictal, Wellbutrin, Zyprexa) and Haldol was tapered as he was declining long acting injectable. On 05/09/21 there was a diversion meeting to look at supervised living options as he lost his spot at the [facility] given the length of his stay and was felt to require supervised and structured environment to reduce likelihood of illness relapse. Throughout May 2021 he remained largely socially isolated during the day but consistently took his medication, had improved attention to hygiene (showering on average weekly), spoke with staff and ate all of his meals consistently. He declined making any medication adjustments to his Wellbutrin. He continued to tolerate his medications without any side effects and became more future-oriented regarding his plans after discharge. 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 He began to sporadically attend a few therapeutic groups and spoke with unit counselors about stressors leading to his hospitalization and ways to improve his health moving forward. Risk Factors Assessment Male: Yes : Yes Do You Have Access To A Gun?: No (in supportive living enviornment, pt unable to answer ) Mental Health Diagnoses: Yes Previous Psychiatric Hospitalization: Yes Protective Factors Assessment Employed: No Interval History Identifying Information 40 yo man with history of catatonia, depression, schizoaffective disorder admitted due to concern for decompensation with failure of self-care at [facility]. Admitted on 302, now 305. Chief Complaint "I'm a little sad". Review of Systems Sleep Information Total Hours of Sleep: 6.5 Sleep Comments: pt on q-15 minute checks Meal Information Percent Meal Consumed - Breakfast: 100 Percent Meal Consumed - Lunch: 75 Percent Meal Consumed - Dinner: 90 Nutrition Comment: per meal record Subjective Subjective Patient was seen & assessed and interval progress reviewed with treatment team nursing and social work. David remains isolative to his room except for meals but is journaling a bit more and facetimed with his mechanic driver last night. He went outside today and enjoyed getting some fresh air and exercise. Reports his mood is "a little sad" due to hearing that housing likely will not be available as early as initially anticipated. He denies any medication side effects nor concerns. No further visual symptoms. Physical Exam Psychiatric Orientation: alert and oriented x 3 Apperance: + disheveled Eye Contact: + fair eye contact Motor Behavior: no abnormal motor movements; n EPS Speech: normal rate/rhythm/volume of speech Affect: + flat affect Mood: + depressed mood Thought Process: goal directed thought process Thought Content: reality based without delusions Suicidal Thoughts: denies suicidal thoughts Homicidal Thoughts: denies homicidal thoughts Hallucinations: no auditory hallucinations and no visual hallucinations Cognition: recent memory grossly intact, remote memory grossly intact, attention grossly intact and language grossly intact Estimated Intelligence: consistent with education level Insight: + limited insight Judgement: + limited judgement Vital Signs (Past 24 Hours) Last Vital Signs Temp 37.1 C 06/06/21 20:31 Pulse 89 06/04/21 06:34 Resp 16 06/04/21 06:34 BP 100/64 06/04/21 06:34 Pulse Ox 94 04/03/21 20:37 Results & Data ([facility]) Current Inpatient Medications Current Inpatient Medications: Current Inpatient Medications Acetaminophen (Acetaminophen 325 Mg Tab) 650 mg PO Q4H PRN PRN Reason: Headache or Minor Fever Stop: 06/11/21 10:27 Last Admin: 03/16/21 10:34 Dose: 325 mg Documented by: Al Hydrox/Mg Hydrox/Simethicone (Aluminum/Magnesium Susp 30 Ml Udc) 30 ml PO Q4H PRN PRN Reason: GI Upset Stop: 06/11/21 10:27 Benztropine Mesylate (Benztropine Mesylate 1 Mg Tab) 1 mg PO Q6 PRN PRN Reason: Muscle Spasm Stop: 06/11/21 08:40 Bismuth Subsalicylate (Bismuth Subsalicylate Liqd 236 Ml) 15 ml PO PRN PRN PRN Reason: Loose Stool Stop: 06/11/21 02:27 Bupropion HCl (Bupropion Xl 150 Mg Tabcr) 150 mg PO DAILYBL GO Stop: 06/14/21 11:59 Last Admin: 06/07/21 12:47 Dose: 150 mg Documented by: Folic Acid (Folic Acid 1 Mg Tab) 1 mg PO TODAY@1999 [facility] Stop: 06/13/21 19:59 Last Admin: 06/06/21 21:06 Dose: 1 mg Documented by: Lamotrigine (Lamotrigine 100 Mg Tab) 100 mg PO DAILY@1999 [facility] Stop: 06/27/21 19:59 Last Admin: 06/06/21 21:06 Dose: 100 mg Documented by: Lorazepam (Lorazepam 1 Mg Tab) 1 mg PO Q6 PRN PRN Reason: Anxiety/Agitation Stop: 06/11/21 08:14 Last Admin: 04/04/21 20:52 Dose: 1 mg Documented by: Magnesium Hydroxide (Magnesium Hydroxide Susp 30 Ml Udc) 30 ml PO DAILY PRN PRN Reason: Constipation Stop: 06/11/21 10:27 Olanzapine (Olanzapine 20 Mg Tablet) 20 mg PO TODAY@1999 [facility] Stop: 06/13/21 19:59 Last Admin: 06/06/21 21:05 Dose: 20 mg Documented by: Sodium Chloride (Sodium Chloride 0.65% Na Soln 45 Ml ([place])) 1 - 2 sprays NA PRN PRN PRN Reason: Nasal Dryness/Congestion Stop: 06/11/21 10:27 Mental Health & Subst Abuse Tx Psychiatrist Name of Psychiatrist: Tez Oshea Psychiatrist's Date of Appointment with Psychiatrist: 07/19/21 Time of Appointment with Psychiatrist: 8:30am Psychiatric Appointment Comment: [address] [place] [address] Therapist Name of Therapist: . Top Waddy Name of Top Waddy: ANA PAULA Castro Post Discharge Appointments Primary Care Physician Name Of Family Doctor: Negro Primary Care Provider Appointment Comment: [address] Contact Information Discharge Phone Number: update [place]ayo with phone number
[2021-06-07] MEDS: lamoTRIgine 100 MG TAB PO SCH (20:43)
[2021-06-07] MEDS: FOLIC ACID 1 MG TAB PO SCH (20:43)
[2021-06-07] MEDS: OLANZapine 20 MG TABLET PO SCH (20:43)
--- NOTE | 2021-06-08 09:59 | Psychiatric Progress Note ---
Date of Service June 08, 2021 Impression / Recommendations Impression The patient is a 40 year old with a history of schizoaffective disorder who was admitted for failure of self-care and worsening decompensation at [facility]. His functioning is poor with inconsistent activity and PO intake despite trials of Ativan, Emsam patch, IM Zyprexa, and now Haldol on 305 commitment. For first 2 months of his stay he was not taking PO meds consistently and was largely mute though this has improved dramatically following court order for ECT which he ultimately voiced an opinion on and declined. He remains resistant to groups but is motivated to discuss housing options and take PO medication. He is now expressing preferences with regards to his care. He remains in need of inpatient psychiatric care and has no current housing; he will require housing with level of supervision and support to avoid regression back to lack of eating/self-care, etc as seen prior to his current admission. 06/08/21: limited socialization and interest in hygiene Plan: Continue current medications. (1) Schizoaffective disorder: Risk Factors Assessment Male: Yes : Yes Do You Have Access To A Gun?: No (in supportive living enviornment, pt unable to answer ) Mental Health Diagnoses: Yes Previous Psychiatric Hospitalization: Yes Protective Factors Assessment Employed: No Interval History Identifying Information 40 yo man with history of catatonia, depression, schizoaffective disorder admitted due to concern for decompensation with failure of self-care at [facility]. Admitted on 302, now 305. Chief Complaint "I'm fine". Review of Systems Sleep Information Total Hours of Sleep: 6.5 Sleep Comments: pt on q-15 minute checks Meal Information Percent Meal Consumed - Breakfast: 100 Percent Meal Consumed - Lunch: 75 Percent Meal Consumed - Dinner: 100 Nutrition Comment: per meal record Subjective Subjective Patient was seen & assessed and interval progress reviewed with nursing and social work. No new concerns. Tolerating delay in possible placement. Went outside yesterday. Physical Exam Psychiatric Orientation: alert Apperance: + disheveled Eye Contact: + poor eye contact Motor Behavior: no abnormal motor movements Speech: + abnormal rate/rhythm/volume of speech Affect: + blunted affect Mood: no depressed mood Thought Process: + concrete thought process Thought Content: reality based without delusions Suicidal Thoughts: denies suicidal thoughts Homicidal Thoughts: denies homicidal thoughts Hallucinations: no auditory hallucinations and no visual hallucinations Vital Signs (Past 24 Hours) Last Vital Signs Temp 36.4 C L 06/07/21 20:00 Pulse 89 06/04/21 06:34 Resp 16 06/04/21 06:34 BP 100/64 06/04/21 06:34 Pulse Ox 94 04/03/21 20:37 Results & Data ([facility]) Current Inpatient Medications Current Inpatient Medications: Current Inpatient Medications Acetaminophen (Acetaminophen 325 Mg Tab) 650 mg PO Q4H PRN PRN Reason: Headache or Minor Fever Stop: 06/11/21 10:27 Last Admin: 03/16/21 10:34 Dose: 325 mg Documented by: Al Hydrox/Mg Hydrox/Simethicone (Aluminum/Magnesium Susp 30 Ml Udc) 30 ml PO Q4H PRN PRN Reason: GI Upset Stop: 06/11/21 10:27 Benztropine Mesylate (Benztropine Mesylate 1 Mg Tab) 1 mg PO Q6 PRN PRN Reason: Muscle Spasm Stop: 06/11/21 08:40 Bismuth Subsalicylate (Bismuth Subsalicylate Liqd 236 Ml) 15 ml PO PRN PRN PRN Reason: Loose Stool Stop: 06/11/21 02:27 Bupropion HCl ([facility]upropion Xl 150 Mg Tabcr) [facility] Stop: 06/14/21 11:59 Last Admin: 06/07/21 12:47 Dose: 150 mg Documented by: Folic Acid (Folic Acid 1 Mg Tab) 1 mg PO TODAY@1999 [facility] Stop: 06/13/21 19:59 Last Admin: 06/07/21 20:43 Dose: 1 mg Documented by: Lamotrigine (Lamotrigine 100 Mg Tab) 100 mg PO DAILY@1999 [facility] Stop: 06/27/21 19:59 Last Admin: 06/07/21 20:43 Dose: 100 mg Documented by: Lorazepam (Lorazepam 1 Mg Tab) 1 mg PO Q6 PRN PRN Reason: Anxiety/Agitation Stop: 06/11/21 08:14 Last Admin: 04/04/21 20:52 Dose: 1 mg Documented by: Magnesium Hydroxide (Magnesium Hydroxide Susp 30 Ml Udc) 30 ml PO DAILY PRN PRN Reason: Constipation Stop: 06/11/21 10:27 Olanzapine (Olanzapine 20 Mg Tablet) 20 mg PO TODAY@1999 [facility] Stop: 06/13/21 19:59 Last Admin: 06/07/21 20:43 Dose: 20 mg Documented by: Sodium Chloride (Sodium Chloride 0.65% Na Soln 45 Ml ([place])) 1 - 2 sprays NA PRN PRN PRN Reason: Nasal Dryness/Congestion Stop: 06/11/21 10:27 Mental Health & Subst Abuse Tx Psychiatrist Name of Psychiatrist: Tez Oshea Psychiatrist's Date of Appointment with Psychiatrist: 07/19/21 Time of Appointment with Psychiatrist: 8:30am Psychiatric Appointment Comment: [address] [place] [address] Therapist Name of Therapist: . Foreign Service Teacher Name of Foreign Service Teacher: ANA PAULA Castro Post Discharge Appointments Primary Care Physician Name Of Family Doctor: Negro Primary Care Provider Appointment Comment: [address] Contact Information Discharge Phone Number: update Chayo with phone number
[2021-06-08] MEDS: buPROPion XL 150 MG TABCR PO SCH (13:23)
[2021-06-08] MEDS: lamoTRIgine 100 MG TAB PO SCH (20:21)
[2021-06-08] MEDS: OLANZapine 20 MG TABLET PO SCH (20:21)
[2021-06-08] MEDS: FOLIC ACID 1 MG TAB PO SCH (20:22)
--- NOTE | 2021-06-09 10:11 | Psychiatric Progress Note ---
Date of Service June 09, 2021 Impression / Recommendations Impression The patient is a 40 year old with a history of schizoaffective disorder who was admitted for failure of self-care and worsening decompensation at [facility]. His functioning is poor with inconsistent activity and PO intake despite trials of Ativan, Emsam patch, IM Zyprexa, and now Haldol on 305 commitment. For first 2 months of his stay he was not taking PO meds consistently and was largely mute though this has improved dramatically following court order for ECT which he ultimately voiced an opinion on and declined. He remains resistant to groups but is motivated to discuss housing options and take PO medication. He is now expressing preferences with regards to his care. He remains in need of inpatient psychiatric care and has no current housing; he will require housing with level of supervision and support to avoid regression back to lack of eating/self-care, etc as seen prior to his current admission. 06/09/21: unchanged Plan: Continue current medications. Anticipated placement in Jun. (1) Schizoaffective disorder: Risk Factors Assessment Male: Yes : Yes Do You Have Access To A Gun?: No (in supportive living enviornment, pt unable to answer ) Mental Health Diagnoses: Yes Previous Psychiatric Hospitalization: Yes Protective Factors Assessment Employed: No Interval History Identifying Information 40 yo man with history of catatonia, depression, schizoaffective disorder admitted due to concern for decompensation with failure of self-care at [facility]. Admitted on 302, now 305. Chief Complaint selective mutism Review of Systems Sleep Information Total Hours of Sleep: 6 Sleep Comments: pt on q-15 minute checks Meal Information Percent Meal Consumed - Breakfast: 100 Percent Meal Consumed - Lunch: 100 Percent Meal Consumed - Dinner: 100 Nutrition Comment: per meal record Subjective Subjective Patient was seen & assessed and interval progress reviewed with nursing and social work. out for meals, otherwise reclusive to room. Physical Exam Psychiatric refused to acknowledge , kept head covered under blanket. Vital Signs (Past 24 Hours) Last Vital Signs Temp 37.3 C 06/08/21 20:43 Pulse 89 06/04/21 06:34 Resp 16 06/04/21 06:34 BP 100/64 06/04/21 06:34 Pulse Ox 94 04/03/21 20:37 Results & Data ([facility]) Current Inpatient Medications Current Inpatient Medications: Current Inpatient Medications Acetaminophen (Acetaminophen 325 Mg Tab) 650 mg PO Q4H PRN PRN Reason: Headache or Minor Fever Stop: 06/11/21 10:27 Last Admin: 03/16/21 10:34 Dose: 325 mg Documented by: Al Hydrox/Mg Hydrox/Simethicone (Aluminum/Magnesium Susp 30 Ml Udc) 30 ml PO Q4H PRN PRN Reason: GI Upset Stop: 06/11/21 10:27 Benztropine Mesylate (Benztropine Mesylate 1 Mg Tab) 1 mg PO Q6 PRN PRN Reason: Muscle Spasm Stop: 06/11/21 08:40 Bismuth Subsalicylate (Bismuth Subsalicylate Liqd 236 Ml) 15 ml PO PRN PRN PRN Reason: Loose Stool Stop: 06/11/21 02:27 Bupropion HCl ([facility]upropion Xl 150 Mg Tabcr) [facility] Stop: 06/14/21 11:59 Last Admin: 06/08/21 13:23 Dose: 150 mg Documented by: Folic Acid (Folic Acid 1 Mg Tab) 1 mg PO TODAY@1999 [facility] Stop: 06/13/21 19:59 Last Admin: 06/08/21 20:22 Dose: 1 mg Documented by: Lamotrigine (Lamotrigine 100 Mg Tab) 100 mg PO DAILY@1999 [facility] Stop: 06/27/21 19:59 Last Admin: 06/08/21 20:21 Dose: 100 mg Documented by: Lorazepam (Lorazepam 1 Mg Tab) 1 mg PO Q6 PRN PRN Reason: Anxiety/Agitation Stop: 06/11/21 08:14 Last Admin: 04/04/21 20:52 Dose: 1 mg Documented by: Magnesium Hydroxide (Magnesium Hydroxide Susp 30 Ml Udc) 30 ml PO DAILY PRN PRN Reason: Constipation Stop: 06/11/21 10:27 Olanzapine (Olanzapine 20 Mg Tablet) 20 mg PO TODAY@1999 [facility] Stop: 06/13/21 19:59 Last Admin: 06/08/21 20:21 Dose: 20 mg Documented by: Sodium Chloride (Sodium Chloride 0.65% Na Soln 45 Ml ([place])) 1 - 2 sprays NA PRN PRN PRN Reason: Nasal Dryness/Congestion Stop: 06/11/21 10:27 Mental Health & Subst Abuse Tx Psychiatrist Name of Psychiatrist: Tez Oshea Psychiatrist's Date of Appointment with Psychiatrist: 07/19/21 Time of Appointment with Psychiatrist: 8:30am Psychiatric Appointment Comment: [address] [place] [address] Therapist Name of Therapist: . Perinatal Breastfeeding Assistant Name of Perinatal Breastfeeding Assistant: ANA PAULA Castro Post Discharge Appointments Primary Care Physician Name Of Family Doctor: Negro Primary Care Provider Appointment Comment: Yessica Montero Contact Information Discharge Phone Number: update [place] with phone number
[2021-06-09] MEDS: buPROPion XL 150 MG TABCR PO SCH (12:49)
[2021-06-09] MEDS: FOLIC ACID 1 MG TAB PO SCH (20:24)
[2021-06-09] MEDS: lamoTRIgine 100 MG TAB PO SCH (20:24)
[2021-06-09] MEDS: OLANZapine 20 MG TABLET PO SCH (20:25)
[2021-06-10] MEDS: buPROPion XL 150 MG TABCR PO SCH (12:27)
[2021-06-10] MEDS: lamoTRIgine 100 MG TAB PO SCH (20:26)
[2021-06-10] MEDS: FOLIC ACID 1 MG TAB PO SCH (20:26)
[2021-06-10] MEDS: OLANZapine 20 MG TABLET PO SCH (20:26)
--- NOTE | 2021-06-11 11:06 | Psychiatric Progress Note ---
Date of Service late entry for 06/10/21 Impression / Recommendations Impression The patient is a 40 year old with a history of schizoaffective disorder who was admitted for failure of self-care and worsening decompensation at [facility]. His functioning is poor with inconsistent activity and PO intake despite trials of Ativan, Emsam patch, IM Zyprexa, and now Haldol on 305 commitment. For first 2 months of his stay he was not taking PO meds consistently and was largely mute though this has improved dramatically following court order for ECT which he ultimately voiced an opinion on and declined. He remains resistant to groups but is motivated to discuss housing options and take PO medication. He is now expressing preferences with regards to his care. He remains in need of inpatient psychiatric care and has no current housing; he will require housing with level of supervision and support to avoid regression back to lack of eating/self-care, etc as seen prior to his current admission. 06/10/21: unchanged Plan: Continue current medications as declines further titration of Lamictal. Risk Factors Assessment Male: Yes : Yes Do You Have Access To A Gun?: No (in supportive living enviornment, pt unable to answer ) Mental Health Diagnoses: Yes Previous Psychiatric Hospitalization: Yes Protective Factors Assessment Employed: No Interval History Identifying Information 40 yo man with history of catatonia, depression, schizoaffective disorder admitted due to concern for decompensation with failure of self-care at [facility]. Admitted on 302, now 305. Chief Complaint "I'm fine, no more med changes please". Review of Systems Sleep Information Total Hours of Sleep: 6.5 Sleep Comments: pt on q-15 minute checks Meal Information Percent Meal Consumed - Breakfast: 100 Percent Meal Consumed - Lunch: 100 Percent Meal Consumed - Dinner: 100 Nutrition Comment: per meal record Subjective Subjective Patient was seen & assessed and interval progress reviewed with nursing and social work. Unchanged--out for meals, did attempt to call his rep payee but was after hours. Physical Exam Psychiatric alert, flat affect, limited eye contact, no restlessness, mood "calm", no SI/HI/alexander. Vital Signs (Past 24 Hours) Last Vital Signs Temp 36.9 C 06/10/21 20:00 Pulse 89 06/04/21 06:34 Resp 16 06/04/21 06:34 BP 100/64 06/04/21 06:34 Pulse Ox 94 04/03/21 20:37 Results & Data ([facility]) Current Inpatient Medications Current Inpatient Medications: Current Inpatient Medications Bupropion HCl (Bupropion Xl 150 Mg Tabcr) 150 mg PO DAILY [facility] Stop: 06/14/21 11:59 Last Admin: 06/10/21 12:27 Dose: 150 mg Documented by: Folic Acid (Folic Acid 1 Mg Tab) 1 mg PO TODAY@1999 [facility] Stop: 06/13/21 19:59 Last Admin: 06/10/21 20:26 Dose: 1 mg Documented by: Lamotrigine (Lamotrigine 100 Mg Tab) 100 mg PO DAILY@1999 [facility] Stop: 06/27/21 19:59 Last Admin: 06/10/21 20:26 Dose: 100 mg Documented by: Olanzapine (Olanzapine 20 Mg Tablet) 20 mg PO TODAY@1999 [facility] Stop: 06/13/21 19:59 Last Admin: 06/10/21 20:26 Dose: 20 mg Documented by: Mental Health & Subst Abuse Tx Psychiatrist Name of Psychiatrist: Tez Oshea Psychiatrist's Date of Appointment with Psychiatrist: 07/19/21 Time of Appointment with Psychiatrist: 8:30am Psychiatric Appointment Comment: [address] [place] [address] Therapist Name of Therapist: . Atmospheric Sciences Professor Name of Atmospheric Sciences Professor: ANA PAULA Castro Post Discharge Appointments Primary Care Physician Name Of Family Doctor: Negro Primary Care Provider Appointment Comment: [address] Contact Information Discharge Phone Number: update Chayo with phone number
--- NOTE | 2021-06-11 11:08 | Psychiatric Progress Note ---
Date of Service June 11, 2021 Impression / Recommendations Impression The patient is a 40 year old with a history of schizoaffective disorder who [facility]. His functioning is poor with inconsistent activity and PO intake despite trials of Ativan, Emsam patch, IM Zyprexa, and now Haldol on 305 commitment. For first 2 months of his stay he was not taking PO meds consistently and was largely mute though this has improved dramatically following court order for ECT which he ultimately voiced an opinion on and declined. He remains resistant to groups but is motivated to discuss housing options and take PO medication. He is now expressing preferences with regards to his care. He remains in need of inpatient psychiatric care and has no current housing; he will require housing with level of supervision and support to avoid regression back to lack of eating/self-care, etc as seen prior to his current admission. 06/11/21: poor motivation but attending meals Plan: Continue current medications awaiting placement. Risk Factors Assessment Male: Yes : Yes Do You Have Access To A Gun?: No (in supportive living enviornment, pt unable to answer ) Mental Health Diagnoses: Yes Previous Psychiatric Hospitalization: Yes Protective Factors Assessment Employed: No Interval History Identifying Information 40 yo man with history of catatonia, depression, schizoaffective disorder admitted due to concern for decompensation with failure of self-care at [facility]. Admitted on 302, now 305. Chief Complaint "no comment". Review of Systems Sleep Information Total Hours of Sleep: 6.5 Sleep Comments: pt on q-15 minute checks Meal Information Percent Meal Consumed - Breakfast: 100 Percent Meal Consumed - Lunch: 100 Percent Meal Consumed - Dinner: 100 Nutrition Comment: per meal record Subjective Subjective Patient was seen & assessed and interval progress reviewed with nursing and social work. Still mainly out for meals, doesn't attend groups. Continues to report he will do what he needs to in supervised living. Physical Exam Psychiatric alert, flat affect, mood "ok', thoughts concrete, no SI/HI/alexander. Vital Signs (Past 24 Hours) Last Vital Signs Temp 36.9 C 06/10/21 20:00 Pulse 89 06/04/21 06:34 Resp 16 06/04/21 06:34 BP 100/64 06/04/21 06:34 Pulse Ox 94 04/03/21 20:37 Results & Data ([facility]) Current Inpatient Medications Current Inpatient Medications: Current Inpatient Medications Bupropion HCl ([facility]upropion Xl 150 Mg Tabcr) [facility] Stop: 06/14/21 11:59 Last Admin: 06/10/21 12:27 Dose: 150 mg Documented by: Folic Acid (Folic Acid 1 Mg Tab) 1 mg PO TODAY@1999 [facility] Stop: 06/13/21 19:59 Last Admin: 06/10/21 20:26 Dose: 1 mg Documented by: Lamotrigine (Lamotrigine 100 Mg Tab) 100 mg PO DAILY@1999 [facility] Stop: 06/27/21 19:59 Last Admin: 06/10/21 20:26 Dose: 100 mg Documented by: Olanzapine (Olanzapine 20 Mg Tablet) 20 mg PO TODAY@1999 [facility] Stop: 06/13/21 19:59 Last Admin: 06/10/21 20:26 Dose: 20 mg Documented by: Mental Health & Subst Abuse Tx Psychiatrist Name of Psychiatrist: Tez Oshea Psychiatrist's Date of Appointment with Psychiatrist: 07/19/21 Time of Appointment with Psychiatrist: 8:30am Psychiatric Appointment Comment: [address] [place] [address] Therapist Name of Therapist: . Cage Tender Name of Cage Tender: ANA PAULA Castro Post Discharge Appointments Primary Care Physician Name Of Family Doctor: Negro Primary Care Provider Appointment Comment: [address] Contact Information Discharge Phone Number: update Chayo with phone number
[2021-06-11] MEDS ORDERED: ACETAMINOPHEN 325 MG TAB PO PRN (11:09)
[2021-06-11] MEDS: buPROPion XL 150 MG TABCR PO SCH (12:40)
[2021-06-11] MEDS: lamoTRIgine 100 MG TAB PO SCH (20:32)
[2021-06-11] MEDS: OLANZapine 20 MG TABLET PO SCH (20:33)
--- NOTE | 2021-06-12 10:53 | Psychiatric Progress Note ---
Date of Service June 12, 2021 Impression / Recommendations Impression The patient is a 40 year old with a history of schizoaffective disorder who was admitted for failure of self-care and worsening decompensation at [facility]. His functioning is poor with inconsistent activity and PO intake despite trials of Ativan, Emsam patch, IM Zyprexa, and now Haldol on 305 commitment. For first 2 months of his stay he was not taking PO meds consistently and was largely mute though this has improved dramatically following court order for ECT which he ultimately voiced an opinion on and declined. He remains resistant to groups but is motivated to discuss housing options and take PO medication. He is now expressing preferences with regards to his care. He remains in need of inpatient psychiatric care and has no current housing; he will require housing with level of supervision and support to avoid regression back to lack of eating/self-care, etc as seen prior to his current admission. 06/12/21: some interest in a history book Plan: Continue current medications, placement anticipated next week. Risk Factors Assessment Male: Yes : Yes Do You Have Access To A Gun?: No (in supportive living enviornment, pt unable to answer ) Mental Health Diagnoses: Yes Previous Psychiatric Hospitalization: Yes Protective Factors Assessment Employed: No Interval History Identifying Information 40 yo man with history of catatonia, depression, schizoaffective disorder admitted due to concern for decompensation with failure of self-care at [facility]. Admitted on 302, now 305. Chief Complaint some increase in motivation Review of Systems Sleep Information Total Hours of Sleep: 6 Sleep Comments: pt on q-15 minute checks Meal Information Percent Meal Consumed - Breakfast: 100 Percent Meal Consumed - Lunch: 100 Percent Meal Consumed - Dinner: 100 Nutrition Comment: per meal record Subjective Subjective Patient was seen & assessed and interval progress reviewed with treatment team. He attends meals, mainly wants to interact around his placement issues. Remains med compliant and is tolerating well. Physical Exam Psychiatric Orientation: alert and oriented x 3 Apperance: + disheveled Eye Contact: + fair eye contact Motor Behavior: no abnormal motor movements Speech: normal rate/rhythm/volume of speech Affect: + constricted affect Mood: no depressed mood Thought Process: + concrete thought process Thought Content: reality based without delusions Suicidal Thoughts: denies suicidal thoughts Homicidal Thoughts: denies homicidal thoughts Hallucinations: no auditory hallucinations and no visual hallucinations Cognition: language grossly intact Vital Signs (Past 24 Hours) Last Vital Signs Temp 37.1 C 06/11/21 20:00 Pulse 89 06/04/21 06:34 Resp 16 06/04/21 06:34 BP 100/64 06/04/21 06:34 Pulse Ox 94 04/03/21 20:37 Results & Data ([facility]) Current Inpatient Medications Current Inpatient Medications: Current Inpatient Medications Acetaminophen (Acetaminophen 325 Mg Tab) 650 mg PO Q4H PRN PRN Reason: Pain or Fever Stop: 07/11/21 11:08 Bupropion HCl (B[facility]ropion Xl 150 Mg Tabcr) [facility] Stop: 07/12/21 11:59 Last Admin: 06/11/21 12:40 Dose: 150 mg Documented by: Lamotrigine (Lamotrigine 100 Mg Tab) 100 mg PO DAILY@1999 [facility] Stop: 06/27/21 19:59 Last Admin: 06/11/21 20:32 Dose: 100 mg Documented by: Olanzapine (Olanzapine 20 Mg Tablet) 20 mg PO TODAY@1999 [facility] Stop: 07/12/21 19:59 Last Admin: 06/11/21 20:33 Dose: 20 mg Documented by: Mental Health & Subst Abuse Tx Psychiatrist Name of Psychiatrist: Tez Oshea Psychiatrist's Date of Appointment with Psychiatrist: 07/19/21 Time of Appointment with Psychiatrist: 8:30am Psychiatric Appointment Comment: [address] [place] [address] Therapist Name of Therapist: . Braiding Machine Operator Name of Braiding Machine Operator: ANA PAULA Castro Post Discharge Appointments Primary Care Physician Name Of Family Doctor: Negro Primary Care Provider Appointment Comment: [address] Contact Information Discharge Phone Number: update [place] with phone number
[2021-06-12] MEDS: buPROPion XL 150 MG TABCR PO SCH (11:50)
[2021-06-12] MEDS: lamoTRIgine 100 MG TAB PO SCH (20:09)
[2021-06-12] MEDS: OLANZapine 20 MG TABLET PO SCH (20:09)
--- NOTE | 2021-06-13 09:53 | Psychiatric Progress Note ---
Date of Service June 13, 2021 Impression / Recommendations Impression The patient is a 40 year old with a history of schizoaffective disorder who was [facility]. His functioning is poor with inconsistent activity and PO intake despite trials of Ativan, Emsam patch, IM Zyprexa, and now Haldol on 305 commitment. For first 2 months of his stay he was not taking PO meds consistently and was largely mute though this has improved dramatically following court order for ECT which he ultimately voiced an opinion on and declined. He remains resistant to groups but is motivated to discuss housing options and take PO medication. He is now expressing preferences with regards to his care. He remains in need of inpatient psychiatric care and has no current housing; he will require housing with level of supervision and support to avoid regression back to lack of eating/self-care, etc as seen prior to his current admission. 06/13/21: same Plan: Continue current medications, placement anticipated next week. Risk Factors Assessment Male: Yes : Yes Do You Have Access To A Gun?: No (in supportive living enviornment, pt unable to answer ) Mental Health Diagnoses: Yes Previous Psychiatric Hospitalization: Yes Protective Factors Assessment Employed: No Interval History Identifying Information 40 yo man with history of catatonia, depression, schizoaffective disorder admitted due to concern for decompensation with failure of self-care at [facility]. Admitted on 302, now 305. Chief Complaint "I read alot yesterday". Review of Systems Sleep Information Total Hours of Sleep: 6.5 Sleep Comments: pt on q-15 minute checks Meal Information Percent Meal Consumed - Breakfast: 100 Percent Meal Consumed - Lunch: 100 Percent Meal Consumed - Dinner: 100 Nutrition Comment: per meal record Subjective Subjective Patient was seen & assessed and interval progress reviewed with nursing and social work. Showered last pm as would like to go outside today with security. Attending meals but not groups. Physical Exam Psychiatric Orientation: alert and oriented x 3 Apperance: + disheveled Eye Contact: + fair eye contact Motor Behavior: no abnormal motor movements Speech: + abnormal rate/rhythm/volume of speech Affect: + constricted affect Mood: no depressed mood Thought Process: + concrete thought process Thought Content: reality based without delusions Suicidal Thoughts: denies suicidal thoughts Homicidal Thoughts: denies homicidal thoughts Hallucinations: no auditory hallucinations and no visual hallucinations Cognition: attention grossly intact and language grossly intact Estimated Intelligence: consistent with education level Insight: + limited insight Judgement: + limited judgement Vital Signs (Past 24 Hours) Last Vital Signs Temp 36.9 C 06/12/21 20:00 Pulse 89 06/04/21 06:34 Resp 16 06/04/21 06:34 BP 100/64 06/04/21 06:34 Pulse Ox 94 04/03/21 20:37 Results & Data ([facility]) Current Inpatient Medications Current Inpatient Medications: Current Inpatient Medications Acetaminophen (Acetaminophen 325 Mg Tab) 650 mg PO Q4H PRN PRN Reason: Pain or Fever Stop: 07/11/21 11:08 Bupropion HCl (Bupropion Xl 150 Mg Tabcr) [facility] Stop: 07/12/21 11:59 Last Admin: 06/12/21 11:50 Dose: 150 mg Documented by: Lamotrigine (Lamotrigine 100 Mg Tab) 100 mg PO DAILY@1999 [facility] Stop: 06/27/21 19:59 Last Admin: 06/12/21 20:09 Dose: 100 mg Documented by: Olanzapine (Olanzapine 20 Mg Tablet) 20 mg PO TODAY@1999 [facility] Stop: 07/12/21 19:59 Last Admin: 06/12/21 20:09 Dose: 20 mg Documented by: Mental Health & Subst Abuse Tx Psychiatrist Name of Psychiatrist: Tez Oshea Psychiatrist's Date of Appointment with Psychiatrist: 07/19/21 Time of Appointment with Psychiatrist: 8:30am Psychiatric Appointment Comment: [address] [place] [address] Therapist Name of Therapist: . Marine Pipefitter Helper Name of Marine Pipefitter Helper: ANA PAULA Castro Post Discharge Appointments Primary Care Physician Name Of Family Doctor: Negro Primary Care Provider Appointment Comment: [address] Contact Information Discharge Phone Number: update Chayo with phone number
[2021-06-13] MEDS: buPROPion XL 150 MG TABCR PO SCH (12:50)
[2021-06-13] MEDS: OLANZapine 20 MG TABLET PO SCH (20:27)
[2021-06-13] MEDS: lamoTRIgine 100 MG TAB PO SCH (20:27)
[2021-06-14] MEDS: buPROPion XL 150 MG TABCR PO SCH (12:29)
--- NOTE | 2021-06-14 13:13 | Psychiatric Progress Note ---
Date of Service June 14, 2021 Impression / Recommendations Impression The patient is a 40 year old with a history of schizoaffective disorder who was admitted for failure of self-care and worsening decompensation at [facility]. His functioning is poor with inconsistent activity and PO intake despite trials of Ativan, Emsam patch, IM Zyprexa, and now Haldol on 305 commitment. For first 2 months of his stay he was not taking PO meds consistently and was largely mute though this has improved dramatically following court order for ECT which he ultimately voiced an opinion on and declined. He remains resistant to groups but is motivated to discuss housing options and take PO medication. He is now expressing preferences with regards to his care. He remains in need of inpatient psychiatric care and has no current housing; he will require housing with level of supervision and support to avoid regression back to lack of eating/self-care, etc as seen prior to his current admission. 06/14/21: improving Plan: Continue current medications, placement anticipated next week. Risk Factors Assessment Male: Yes : Yes Do You Have Access To A Gun?: No (in supportive living enviornment, pt unable to answer ) Mental Health Diagnoses: Yes Previous Psychiatric Hospitalization: Yes Protective Factors Assessment Employed: No Interval History Identifying Information 40 yo man with history of catatonia, depression, schizoaffective disorder admitted due to concern for decompensation with failure of self-care at [facility]. Admitted on 302, now 305. Chief Complaint "Are you guys OK?". Review of Systems Sleep Information Total Hours of Sleep: 6.5 Sleep Comments: pt on q-15 minute checks Meal Information Percent Meal Consumed - Breakfast: 100 Percent Meal Consumed - Lunch: 100 Percent Meal Consumed - Dinner: 100 Nutrition Comment: per meal record Subjective Subjective Patient was seen & assessed and interval progress reviewed with treatment team. Patient has been attending community meeting and rating his mood. He is attending meals. He expressed concern for staff given agitation overheard from another patient on the unit. Physical Exam Psychiatric Orientation: alert and oriented x 3 Apperance: appropriately dressed and appropriately groomed Eye Contact: good eye contact Motor Behavior: no abnormal motor movements Speech: normal rate/rhythm/volume of speech Affect: + constricted affect Mood: no depressed mood Thought Process: goal directed thought process Thought Content: reality based without delusions Suicidal Thoughts: denies suicidal thoughts Homicidal Thoughts: denies homicidal thoughts Hallucinations: no auditory hallucinations and no visual hallucinations Cognition: attention grossly intact and language grossly intact Estimated Intelligence: consistent with education level Insight: + limited insight Judgement: + limited judgement Vital Signs (Past 24 Hours) Last Vital Signs Temp 36.6 C 06/13/21 20:11 Pulse 92 H 06/14/21 06:30 Resp 16 06/14/21 06:30 BP 103/67 06/14/21 06:30 Pulse Ox 94 04/03/21 20:37 Results & Data ([facility]) Current Inpatient Medications Current Inpatient Medications: Current Inpatient Medications Acetaminophen (Acetaminophen 325 Mg Tab) 650 mg PO Q4H PRN PRN Reason: Pain or Fever Stop: 07/11/21 11:08 Bupropion HCl ([facility]upropion Xl 150 Mg Tabcr) [facility] Stop: 07/12/21 11:59 Last Admin: 06/14/21 12:29 Dose: 150 mg Documented by: Lamotrigine (Lamotrigine 100 Mg Tab) 100 mg PO DAILY@1999 [facility] Stop: 06/27/21 19:59 Last Admin: 06/13/21 20:27 Dose: 100 mg Documented by: Olanzapine (Olanzapine 20 Mg Tablet) 20 mg PO TODAY@1999 [facility] Stop: 07/12/21 19:59 Last Admin: 06/13/21 20:27 Dose: 20 mg Documented by: Mental Health & Subst Abuse Tx Psychiatrist Name of Psychiatrist: Tez Oshea Psychiatrist's Date of Appointment with Psychiatrist: 07/19/21 Time of Appointment with Psychiatrist: 8:30am Psychiatric Appointment Comment: [address] [place] [address] Therapist Name of Therapist: . Fleet Maintenance Foreman Name of Fleet Maintenance Foreman: ANA PAULA Castro Post Discharge Appointments Primary Care Physician Name Of Family Doctor: Negro Primary Care Provider Appointment Comment: [address] Contact Information Discharge Phone Number: update Chayo with phone number
[2021-06-14] MEDS: OLANZapine 20 MG TABLET PO SCH (20:54)
[2021-06-14] MEDS: lamoTRIgine 100 MG TAB PO SCH (20:54)
[2021-06-15] MEDS: buPROPion XL 150 MG TABCR PO SCH (12:22)
--- NOTE | 2021-06-15 14:32 | Psychiatric Progress Note ---
Date of Service June 15, 2021 Impression / Recommendations Impression The patient is a 40 year old with a history of schizoaffective disorder who was admitted for failure of self-care and worsening decompensation at senior living. His functioning is poor with inconsistent activity and PO intake despite trials of Ativan, Emsam patch, IM Zyprexa, and now Haldol on 305 commitment. For first 2 months of his stay he was not taking PO meds consistently and was largely mute though this has improved dramatically following court order for ECT which he ultimately voiced an opinion on and declined. He remains resistant to groups but is motivated to discuss housing options and take PO medication. He is now expressing preferences with regards to his care. He remains in need of inpatient psychiatric care and has no current housing; he will require housing with level of supervision and support to avoid regression back to lack of eating/self-care, etc as seen prior to his current admission. 06/15/21: remains isolative to his room with exception of meals but consistently engaging with staff, remains future-oriented about new housing. Plan: Continue current medications, placement anticipated next week, awaiting staff training for supportive living environment, reviewed interim progress per Dr. Arevalo's notes. Working to clarify if script for outpatient medication was picked up by prior living facility. (1) Schizoaffective disorder: 02/09/21-06/15/21: Given the patient's length of stay, this serves as a care summary which will be carried forward. He initially presented somewhat catatonic in appearance and had mixed response to Ativan challenge though ultimately it was felt that he did not present with catatonia but rather severe neurovegetative symptoms of depressive. His commitment was extended and a 2nd opinion for meds over objection was sought as he was mute, in bed with limited PO and required DVT prophylaxis and potassium repletion. After no consistent response to IM Ativan, given refusal of oral Latuda and Zyprexa he was started on Zyprexa IM with apparent worsening. An EEG and MRI were obtained which were unremarkable and care continued on an extended commitment (304). Emsam patch to treat presumed psychotic depression was acquired with some response by week 4. Neurology was consulted on 03/07/21 and had no additional recommendations. The patient was referred to the [facility] in early March given lack of pr ogress and Haldol trial was initiated with poor PO adherence and need for ongoing IMs. A court order was sought for ECT as treatment options had been exhausted and patient was unable to consent; the order was granted on 04/19/21. After that hearing (where he declined to participate or speak) he was more adherent with po Haldol and by 04/27/21 David voiced that he did not want ECT. Soon after he was cooperative with restart of previous medications (Lamictal, Wellbutrin, Zyprexa) and Haldol was tapered as he was declining long acting injectable. On 05/09/21 there was a diversion meeting to look at supervised living options as [facility] given the length of his stay and was felt to require supervised and structured environment to reduce likelihood of illness relapse. Throughout May 2021 he remained largely socially isolated during the day but consistently took his medication, had improved attention to hygiene (showering on average weekly), spoke with staff and ate a ll of his meals consistently. He declined making any medication adjustments to his Wellbutrin. He continued to tolerate his medications without any side effects and became more future-oriented regarding his plans after discharge. He began to re-engage with outpatient supports including his parents and his hindu poultry offal worker. He began to sporadically attend a few therapeutic groups and spoke with unit counselors about stressors leading to his hospitalization and ways to improve his health moving forward. Risk Factors Assessment Male: Yes : Yes Do You Have Access To A Gun?: No (in supportive living enviornment, pt unable to answer ) Mental Health Diagnoses: Yes Previous Psychiatric Hospitalization: Yes Protective Factors Assessment Employed: No Interval History Identifying Information 40 yo man with history of catatonia, depression, schizoaffective disorder admitted due to concern for decompensation with failure of self-care at [facility]. Admitted on 302, now 305. Chief Complaint "I'm ok". Review of Systems Sleep Information Total Hours of Sleep: 6.5 Sleep Comments: pt on q-15 minute checks Meal Information Percent Meal Consumed - Breakfast: 100 Percent Meal Consumed - Lunch: 75 Percent Meal Consumed - Dinner: 100 Nutrition Comment: per meal record Subjective Subjective Patient was seen & assessed and interval progress reviewed. Remains isolative to his room. David is lying in bed this afternoon. Discussed his frustration with being charged for possible dose of latuda that was picked up from pharmacy by staff from his previous supportive living at [facility] from dose I sent to attempt prior authorization. Validated his concerns and brainstormed potential ways to address this and reviewed that social work and nursing were working on getting more information about how this occurred. He denied any other concerns. Physical Exam Psychiatric Orientation: alert and oriented x 3 Apperance: + disheveled Eye Contact: + fair eye contact Motor Behavior: no abnormal motor movements Speech: normal rate/rhythm/volume of speech Affect: + blunted affect Mood: + irritable mood; no depressed mood Thought Process: + concrete thought process Thought Content: reality based without delusions Suicidal Thoughts: denies suicidal thoughts Homicidal Thoughts: denies homicidal thoughts Hallucinations: no auditory hallucinations and no visual hallucinations Cognition: attention grossly intact and language grossly intact Estimated Intelligence: consistent with education level Insight: + limited insight Judgement: + limited judgement Vital Signs (Past 24 Hours) Last Vital Signs Temp 37.6 C H 06/14/21 20:09 Pulse 92 H 06/14/21 06:30 Resp 16 06/14/21 06:30 BP 103/67 06/14/21 06:30 Pulse Ox 94 04/03/21 20:37 Results & Data ([facility]) Current Inpatient Medications Current Inpatient Medications: Current Inpatient Medications Acetaminophen (Acetaminophen 325 Mg Tab) 650 mg PO Q4H PRN PRN Reason: Pain or Fever Stop: 07/11/21 11:08 Bupropion HCl (Bupropion Xl 150 Mg Tabcr) 150 mg PO DAILY [facility] Stop: 07/12/21 11:59 Last Admin: 06/15/21 12:22 Dose: 150 mg Documented by: Lamotrigine (Lamotrigine 100 Mg Tab) 100 mg PO DAILY@1999 [facility] Stop: 06/27/21 19:59 Last Admin: 06/14/21 20:54 Dose: 100 mg Documented by: Olanzapine (Olanzapine 20 Mg Tablet) 20 mg PO TODAY@1999 [facility] Stop: 07/12/21 19:59 Last Admin: 06/14/21 20:54 Dose: 20 mg Documented by: Mental Health & Subst Abuse Tx Psychiatrist Name of Psychiatrist: Tez Oshea Psychiatrist's Date of Appointment with Psychiatrist: 07/19/21 Time of Appointment with Psychiatrist: 8:30am Psychiatric Appointment Comment: [address] [place] [address] Therapist Name of Therapist: . Senior Web Designer Name of Senior Web Designer: ANA PAULA Castro Post Discharge Appointments Primary Care Physician Name Of Family Doctor: Negro Primary Care Provider Appointment Comment: [address] Contact Information Discharge Phone Number: update [place] with phone number
[2021-06-15] MEDS: lamoTRIgine 100 MG TAB PO SCH (21:08)
[2021-06-15] MEDS: OLANZapine 20 MG TABLET PO SCH (21:08)
--- NOTE | 2021-06-16 09:50 | Psychiatric Progress Note ---
Date of Service June 16, 2021 Impression / Recommendations Impression The patient is a 40 year old with a history of schizoaffective disorder who was admitted for failure of self-care and [facility]ensation at [facility]. His functioning is poor with inconsistent activity and PO intake despite trials of Ativan, Emsam patch, IM Zyprexa, and now Haldol on 305 commitment. For first 2 months of his stay he was not taking PO meds consistently and was largely mute though this has improved dramatically following court order for ECT which he ultimately voiced an opinion on and declined. He remains resistant to groups but is motivated to discuss housing options and take PO medication. He is now expressing preferences with regards to his care. He remains in need of inpatient psychiatric care and has no current housing; he will require housing with level of supervision and support to avoid regression back to lack of eating/self-care, etc as seen prior to his current admission. 06/16/21: remains isolative to his room with exception of meals but consistently engaging with staff, remains future-oriented about new housing and interested in checking his email today. Plan: Continue current medications, placement anticipated soon, awaiting staff training for supportive living environment (1) Schizoaffective disorder: 02/09/21-06/16/21: Given the patient's length of stay, this serves as a care summary which will be carried forward. He initially presented somewhat catatonic in appearance and had mixed response to Ativan challenge though ultimately it was felt that he did not present with catatonia but rather severe neurovegetati ve symptoms of depressive. His commitment was extended and a 2nd opinion for meds over objection was sought as he was mute, in bed with limited PO and required DVT prophylaxis and potassium repletion. After no consistent response to IM Ativan, given refusal of oral Latuda and Zyprexa he was started on Zyprexa IM with apparent worsening. An EEG and MRI were obtained which were unremarkable and care continued on an extended commitment (304). Emsam patch to treat presumed psychotic depression was acquired with some response by week 4. Neurology was consulted on 03/07/21 and had no additional recommendations. [facility] given lack of progress and Haldol trial was initiated with poor PO adherence and need for ongoing IMs. A court order was sought for ECT as treatment options had been exhausted and patient was unable to consent; the order was granted on 04/19/21. After that hearing (where he declined to participate or speak) he was more a dherent with po Haldol and by 04/27/21 David voiced that he did not want ECT. Soon after he was cooperative with restart of previous medications (Lamictal, Wellbutrin, Zyprexa) and Haldol was tapered as he was declining long acting injectable. On 05/09/21 there was a diversion meeting to look at supervised living options as [facility] given the length of his stay and was felt to require supervised and structured environment to reduce likelihood of illness relapse. Throughout May 2021 he remained largely socially isolated during the day but consistently took his medication, had improved attention to hygiene (showering on average weekly), spoke with staff and ate all of his meals consistently. He declined making any medication adjustments to his Wellbutrin. He continued to tolerate his medications without any side effects and became more future-oriented regarding his plans after discharge. 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 He began to sporadically attend a few therapeutic groups and spoke with unit counselors about stressors leading to his hospitalization and ways to improve his health moving forward. He checked his email, made regular calls to his family and engaged in regular journaling and reading during the early weeks of June. Risk Factors Assessment Male: Yes : Yes Do You Have Access To A Gun?: No (in supportive living enviornment, pt unable to answer ) Mental Health Diagnoses: Yes Previous Psychiatric Hospitalization: Yes Protective Factors Assessment Employed: No Interval History Identifying Information 40 yo man with history of catatonia, depression, schizoaffective disorder admitted due to concern for decompensation with failure of self-care at [facility]. Admitted on 302, now 305. Chief Complaint "I'm alright". Review of Systems Sleep Information Total Hours of Sleep: 7.5 Sleep Comments: pt on q-15 minute checks Meal Information Percent Meal Consumed - Breakfast: 100 Percent Meal Consumed - Lunch: 75 Percent Meal Consumed - Dinner: 100 Nutrition Comment: 100 Subjective Subjective Patient was seen & assessed and interval progress reviewed with treatment team nursing and social work. Continues to spend the majority of the day in bed except for meals. Did show interest in checking his email today. This afternoon he's sitting on his bed writing in his journal and reading books. Reports stable mood. Denies any medication side effects. Checked some of his email and plans to call his parents maybe tonight. Physical Exam Psychiatric Orientation: alert and oriented x 3 Apperance: + disheveled Eye Contact: + fair eye contact Motor Behavior: no abnormal motor movements Speech: normal rate/rhythm/volume of speech Affect: + blunted affect Mood: no depressed mood Thought Process: + concrete thought process Thought Content: reality based without delusions Suicidal Thoughts: denies suicidal thoughts Homicidal Thoughts: denies homicidal thoughts Hallucinations: no auditory hallucinations and no visual hallucinations Cognition: recent memory grossly intact, remote memory grossly intact, attention grossly intact and language grossly intact Insight: + limited insight Judgement: + limited judgement Vital Signs (Past 24 Hours) Last Vital Signs Temp 36.5 C 06/15/21 20:00 Pulse 92 H 06/14/21 06:30 Resp 16 06/14/21 06:30 BP 103/67 06/14/21 06:30 Pulse Ox 94 04/03/21 20:37 Results & Data ([facility]) Current Inpatient Medications Current Inpatient Medications: Current Inpatient Medications Acetaminophen (Acetaminophen 325 Mg Tab) 650 mg PO Q4H PRN PRN Reason: Pain or Fever Stop: 07/11/21 11:08 Bupropion HCl (Bupropion Xl 150 Mg Tabcr) 150 mg PO DAILY [facility] Stop: 07/12/21 11:59 Last Admin: 06/15/21 12:22 Dose: 150 mg Documented by: Lamotrigine (Lamotrigine 100 Mg Tab) 100 mg PO DAILY@1999 [facility] Stop: 06/27/21 19:59 Last Admin: 06/15/21 21:08 Dose: 100 mg Documented by: Olanzapine (Olanzapine 20 Mg Tablet) 20 mg PO TODAY@1999 [facility] Stop: 07/12/21 19:59 Last Admin: 06/15/21 21:08 Dose: 20 mg Documented by: Mental Health & Subst Abuse Tx Psychiatrist Name of Psychiatrist: Tez Oshea Psychiatrist's Date of Appointment with Psychiatrist: 07/19/21 Time of Appointment with Psychiatrist: 8:30am Psychiatric Appointment Comment: [address] [place] [address] Therapist Name of Therapist: . Pharmacy Technician Name of Pharmacy Technician: ANA PAULA Castro Post Discharge Appointments Primary Care Physician Name Of Family Doctor: Negro Primary Care Provider Appointment Comment: [address] Contact Information Discharge Phone Number: update [place] with phone number
[2021-06-16] MEDS: buPROPion XL 150 MG TABCR PO SCH (12:26)
[2021-06-16] MEDS: OLANZapine 20 MG TABLET PO SCH (20:51)
[2021-06-16] MEDS: lamoTRIgine 100 MG TAB PO SCH (20:51)
[2021-06-17] MEDS: buPROPion XL 150 MG TABCR PO SCH (12:51)
--- NOTE | 2021-06-17 15:38 | Psychiatric Progress Note ---
Date of Service June 17, 2021 Impression / Recommendations Impression The patient is a 40 year old with a history of schizoaffective disorder who was admitted for failure of self-care and worsening decompensation at [facility]. His functioning is poor with inconsistent activity and PO intake despite trials of Ativan, Emsam patch, IM Zyprexa, and now Haldol on 305 commitment. For first 2 months of his stay he was not taking PO meds consistently and was largely mute though this has improved dramatically following court order for ECT which he ultimately voiced an opinion on and declined. He remains resistant to groups but is motivated to discuss housing options and take PO medication. He is now expressing preferences with regards to his care. He remains in need of inpatient psychiatric care and has no current housing; he will require housing with level of supervision and support to avoid regression back to lack of eating/self-care, etc as seen prior to his current admission. 06/17/21: remains isolative to his room with exception of meals but consistently engaging with staff, remains future-oriented about new housing and interested in checking his email, talking with his family and journaling. Plan: Continue current medications, placement anticipated soon, awaiting staff training for supportive living environment. Continue to encourage hygiene via motivational interviewing. (1) Schizoaffective disorder: 02/09/21-06/17/21: Given the patient's length of stay, this serves as a care summary which will be carried forward. He initially presented somewhat catatonic in appearance and had mixed response to Ativan challenge though ultimately it was felt that he did not present with catatonia but rather severe neurovegetative symptoms of depressive. His commitment was extended and a 2nd opinion for meds over objection was sought as he was mute, in bed with limited PO and required DVT prophylaxis and potassium repletion. After no consistent response to IM Ativan, given refusal of oral Latuda and Zyprexa he was started on Zyprexa IM with apparent worsening. An EEG and MRI were obtained which were unremarkable and care continued on an extended commitment (304). Emsam patch to treat presumed psychotic depression was acquired with some response by week 4. Neurology was consulted on 03/07/21 and had no additional recommendations. The patient was referred to the [facility] in early March given lack of progress and Haldol trial was initiated with poor PO adherence and need for ongoing IMs. A court order was sought for ECT as treatment options had been exhausted and patient was unable to consent; the order was granted on 04/19/21. After that hearing (where he declined to participate or speak) he was more adherent with po Haldol and by 04/27/21 David voiced that he did not want ECT. Soon after he was cooperative with restart of previous medications (Lamictal, Wellbutrin, Zyprexa) and Haldol was tapered as he was declining long acting injectable. On 05/09/21 there was a diversion meeting to look at supervised living options as [facility] given the length of his stay and was felt to require supervised and structured environment to reduce likelihood of illness relapse. Throughout May 2021 he remained largely socially isolated during the day but consistently took his medication, had improved attention to hygiene (showering on average weekly), spoke with staff and ate all of his meals consistently. He declined making any medication adjustments to his Wellbutrin. He continued to tolerate his medications without any side effects and became more future-oriented regarding his plans after discharge. 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 He began to sporadically attend a few therapeutic groups and spoke with unit counselors about stressors leading to his hospitalization and ways to improve his health moving forward. He checked his email, made regular calls to his family and engaged in regular journaling and reading during the early weeks of June. Risk Factors Assessment Male: Yes : Yes Do You Have Access To A Gun?: No (in supportive living enviornment, pt unable to answer ) Mental Health Diagnoses: Yes Previous Psychiatric Hospitalization: Yes Protective Factors Assessment Employed: No Interval History Identifying Information 40 yo man with history of catatonia, depression, schizoaffective disorder admitted due to concern for decompensation with failure of self-care at [facility]. Admitted on 302, now 305. Chief Complaint "I'm alright". Review of Systems Sleep Information Total Hours of Sleep: 6.5 Sleep Comments: pt on q-15 minute checks Meal Information Percent Meal Consumed - Breakfast: 100 Percent Meal Consumed - Lunch: 100 Percent Meal Consumed - Dinner: 100 Nutrition Comment: 100 Subjective Subjective Patient was seen & assessed and interval progress reviewed with treatment team nursing and social work. David continues to journal during the day intermittently and spoke with his father on the phone last night for awhile. He's agreed to transitioning his rep payee from his ex- to a new [facility] repayee option. Discussed plan for potentially going outside on Thursday if staffing is available. He states his mood is stable. Reviewed his options regarding latuda script that was signed for and sent to [employer]-i.e. discussing options for refund with [employer] versus discussion with his [employer] company versus keeping medication in case he trials latuda in the future versus safe disposal drop off locations after discharge. He states he wou ld like to consider his options and then will decide what to do. He denies any concerns with his medications and no side effects. Physical Exam Psychiatric Orientation: alert and oriented x 3 Apperance: + disheveled Eye Contact: + fair eye contact Motor Behavior: steady gait and station and no abnormal motor movements Speech: normal rate/rhythm/volume of speech Affect: + flat affect Mood: no depressed mood Thought Process: goal directed thought process Thought Content: reality based without delusions Suicidal Thoughts: denies suicidal thoughts Homicidal Thoughts: denies homicidal thoughts Hallucinations: no auditory hallucinations and no visual hallucinations Cognition: recent memory grossly intact, remote memory grossly intact and language grossly intact Estimated Intelligence: consistent with education level Insight: + limited insight Judgement: + limited judgement Vital Signs (Past 24 Hours) Last Vital Signs Temp 36.5 C 06/16/21 20:00 Pulse 92 H 06/14/21 06:30 Resp 16 06/14/21 06:30 BP 103/67 06/14/21 06:30 Pulse Ox 94 04/03/21 20:37 Results & Data ([facility]) Current Inpatient Medications Current Inpatient Medications: Current Inpatient Medications Acetaminophen (Acetaminophen 325 Mg Tab) 650 mg PO Q4H PRN PRN Reason: Pain or Fever Stop: 07/11/21 11:08 Bupropion HCl ([facility]l 150 Mg [facility]cr[facility] Stop: 07/12/21 11:59 Last Admin: 06/17/21 12:51 Dose: 150 mg Documented by: Lamotrigine (Lamotrigine 100 Mg Tab) 100 mg PO DAILY@1999 [facility] Stop: 06/27/21 19:59 Last Admin: 06/16/21 20:51 Dose: 100 mg Documented by: Olanzapine (Olanzapine 20 Mg Tablet) 20 mg PO TODAY@1999 [facility] Stop: 07/12/21 19:59 Last Admin: 06/16/21 20:51 Dose: 20 mg Documented by: Mental Health & Subst Abuse Tx Psychiatrist Name of Psychiatrist: Tez Oshea Psychiatrist's Date of Appointment with Psychiatrist: 07/19/21 Time of Appointment with Psychiatrist: 8:30am Psychiatric Appointment Comment: [address] [place] [address] Therapist Name of Therapist: . Practice Coordinator Name of Practice Coordinator: ANA PAULA Castro Post Discharge Appointments Primary Care Physician Name Of Family Doctor: Negro Primary Care Provider Appointment Comment: Yessica Montero Contact Information Discharge Phone Number: update [place] with phone number
[2021-06-17] MEDS: lamoTRIgine 100 MG TAB PO SCH (20:56)
[2021-06-17] MEDS: OLANZapine 20 MG TABLET PO SCH (20:56)
[2021-06-18] MEDS: buPROPion XL 150 MG TABCR PO SCH (12:28)
--- NOTE | 2021-06-18 16:15 | Psychiatric Progress Note ---
Date of Service June 18, 2021 Impression / Recommendations Impression The patient is a 40 year old with a history of schizoaffective disorder who was admitted for failure of self[facility]care and [facility] at [facility]. His functioning is poor with inconsistent activity and PO intake despite trials of Ativan, Emsam patch, IM Zyprexa, and now Haldol on 305 commitment. For first 2 months of his stay he was not taking PO meds consistently and was largely mute though this has improved dramatically following court order for ECT which he ultimately voiced an opinion on and declined. He remains resistant to groups but is motivated to discuss housing options and take PO medication. He is now expressing preferences with regards to his care. He remains in need of inpatient psychiatric care and has no current housing; he will require housing with level of supervision and support to avoid regression back to lack of eating/self-care, etc as seen prior to his current admission. 06/18/21: remains isolative to his room with exception of meals but consistently engaging with staff, remains future-oriented about new housing and interested in checking his email, talking with his family and journaling. Plan: Continue current medications, placement anticipated later this week. Continue to encourage hygiene via motivational interviewing. Repeat fasting lipid panel and glucose. (1) Schizoaffective disorder: 02/09/21-06/18/21: Given the patient's length of stay, this serves as a care summary which will be carried forward. He initially presented somewhat catatonic in appearance and had mixed response to Ativan challenge though ultimately it was felt that he did not present with catatonia but rather severe neurovegetative symptoms of depressive. His commitment was extended and a 2nd opinion for meds over objection was sought as he was mute, in bed with limited PO and required DVT prophylaxis and potassium repletion. After no consistent response to IM Ativan, given refusal of oral Latuda and Zyprexa he was started on Zyprexa IM with apparent worsening. An EEG and MRI were obtained which were unremarkable and care continued on an extended commitment (304). Emsam patch to treat presumed psychotic depression was acquired with some response by week 4. Neurology was consulted on 03/07/21 and had no additional recommendations. The patient was referred to the [facility] in early March given lack of progress and Haldol trial was initiated with poor PO adherence and need for ongoing IMs. A court order was sought for ECT as treatment options had been exhausted and patient was unable to consent; the order was granted on 04/19/21. After that hearing (where he declined to participate or speak) he was more adherent with po Haldol and by 04/27/21 David voiced that he did not want ECT. Soon after he was cooperative with restart of previous medications (Lamictal, Wellbutrin, Zyprexa) and Haldol was tapered as he was declining long acting injectable. On 05/09/21 there was a diversion meeting to look at supervised living options as [facility] given the length of his stay and was felt to require supervised and structured environment to reduce likelihood of illness relapse. Throughout May 2021 he remained largely socially isolated during the day but consistently took his medication, had improved attention to hygiene (showering on average once weekly), spoke with staff and ate all of his meals consistently. He declined making any medication adjustments to his Wellbutrin or further titration of his lamictal. He continued to tolerate his medications without any side effects and became more future-oriented regarding his plans after discharge. 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 He began to sporadically attend a few therapeutic groups and spoke with unit counselors about stressors leading to his hospitalization and ways to improve his health moving forward. He checked his email, made regular calls to his family and engaged in regular journaling and reading during the early weeks of June. He continued to tolerate his medications without any side effects. Risk Factors Assessment Male: Yes : Yes Do You Have Access To A Gun?: No (in supportive living enviornment, pt unable to answer ) Mental Health Diagnoses: Yes Previous Psychiatric Hospitalization: Yes Protective Factors Assessment Employed: No Interval History Identifying Information 40 yo man with history of catatonia, depression, schizoaffective disorder admitted due to concern for decompensation with failure of self-care at [facility]. Admitted on 302, now 305. Chief Complaint "I'm alright". Review of Systems Sleep Information Total Hours of Sleep: 6.5 Sleep Comments: pt on q-15 minute checks Meal Information Percent Meal Consumed - Breakfast: 100 Percent Meal Consumed - Lunch: 100 Percent Meal Consumed - Dinner: 100 Nutrition Comment: 100 Subjective Subjective Patient was seen & assessed and interval progress reviewed with treatment team nursing and social work. has been journaling more, no showering this week. Eating all his meals. Update that his new supervised living environment may be ready for him later this week which he is pleased about. Denies any medication side effects or concerns. Physical Exam Psychiatric Orientation: alert and oriented x 3 Apperance: + disheveled Eye Contact: + fair eye contact Motor Behavior: no abnormal motor movements Speech: normal rate/rhythm/volume of speech Affect: + blunted affect Mood: no depressed mood Thought Process: + concrete thought process Thought Content: reality based without delusions Suicidal Thoughts: denies suicidal thoughts Homicidal Thoughts: denies homicidal thoughts Hallucinations: no auditory hallucinations and no visual hallucinations Cognition: recent memory grossly intact, remote memory grossly intact, attention grossly intact and language grossly intact Estimated Intelligence: consistent with education level Insight: + fair insight Judgement: + limited judgement Vital Signs (Past 24 Hours) Last Vital Signs Temp 36.4 C L 06/17/21 20:00 Pulse 92 H 06/14/21 06:30 Resp 16 06/14/21 06:30 BP 103/67 06/14/21 06:30 Pulse Ox 94 04/03/21 20:37 Results & Data ([facility]) Current Inpatient Medications Current Inpatient Medications: Current Inpatient Medications Acetaminophen (Acetaminophen 325 Mg Tab) 650 mg PO Q4H PRN PRN Reason: Pain or Fever Stop: 07/11/21 11:08 Bupropion HCl (Bupropion Xl 150 Mg Tabcr) 150 mg PO DAILY [facility] Stop: 07/12/21 11:59 Last Admin: 06/18/21 12:28 Dose: 150 mg Documented by: Lamotrigine (Lamotrigine 100 Mg Tab) 100 mg PO DAILY@1999 [facility] Stop: 06/27/21 19:59 Last Admin: 06/17/21 20:56 Dose: 100 mg Documented by: Olanzapine (Olanzapine 20 Mg Tablet) 20 mg PO TODAY@1999 [facility] Stop: 07/12/21 19:59 Last Admin: 06/17/21 20:56 Dose: 20 mg Documented by: Mental Health & Subst Abuse Tx Psychiatrist Name of Psychiatrist: Tez Oshea Psychiatrist's Date of Appointment with Psychiatrist: 07/19/21 Time of Appointment with Psychiatrist: 8:30am Psychiatric Appointment Comment: [address] [place] [address] Therapist Name of Therapist: . Quartz Miner Blasting Name of Quartz Miner Blasting: ANA PAULA Castro Post Discharge Appointments Primary Care Physician Name Of Family Doctor: Cristy Rivas Primary Care Date of Appointment with PCP: 06/25/21 Time of Appointment with PCP: 10:45am Provider Appointment Comment: [address] [place] [id number] Contact Information Discharge Phone Number: [facility] [phone] Discharge Address: mailing address [address] [place] [id number] Contact Information Comment: physical address [address] [facility] [address]
[2021-06-18] MEDS: lamoTRIgine 100 MG TAB PO SCH (19:41)
[2021-06-18] MEDS: OLANZapine 20 MG TABLET PO SCH (19:42)
--- NOTE | 2021-06-19 13:32 | Psychiatric Progress Note ---
Date of Service June 19, 2021 Impression / Recommendations Impression The patient is a 40 year old with a history of schizoaffective disorder who was admitted for failure of self-care and [facility]. His functioning is poor with inconsistent activity and PO intake despite trials of Ativan, Emsam patch, IM Zyprexa, and now Haldol on 305 commitment. For first 2 months of his stay he was not taking PO meds consistently and was largely mute though this has improved dramatically following court order for ECT which he ultimately voiced an opinion on and declined. He remains resistant to groups but is motivated to discuss housing options and take PO medication. He is now expressing preferences with regards to his care. He remains in need of inpatient psychiatric care and has no current housing; he will require housing with level of supervision and support to avoid regression back to lack of eating/self-care, etc as seen prior to his current admission. 06/19/21: remains isolative to his room with exception of meals but consistently engaging with staff, remains future-oriented about discharge and smiling and making some jokes today Plan: Continue current medications, placement anticipated later this week. Reviewed bloodwork which showed normal fasting glucose and normal lipid panel with exception of low HDL. Attended meeting to discuss his outpatient commitment and completed outpatient commitment paperwork. (1) Schizoaffective disorder: 02/09/21-06/19/21: Given the patient's length of stay, this serves as a care summary which will be carried forward. He initially presented somewhat catatonic in appearance and had mixed response to Ativan challenge though ultimately it was felt that he did not present with catatonia but rather severe neurovegetative symptoms of depressive. His commitment was extended and a 2nd opinion for meds over objection was sought as he was mute, in bed with limited PO and required DVT prophylaxis and potassium repletion. After no consistent response to IM Ativan, given refusal of oral Latuda and Zyprexa he was started on Zyprexa IM with apparent worsening. An EEG and MRI were obtained which were unremarkable and care continued on an extended commitment (304). Emsam patch to treat presumed psychotic depression was acquired with some response by week 4. Neurology was consulted on 03/07/21 and had no additional recommendations. The patient was referred to the [facility] in early March given lack of progress and Haldol trial was initiated with poor PO adherence and need for ongoing IMs. A court order was sought for ECT as treatment options had been exhausted and patient was unable to consent; the order was granted on 04/19/21. After that hearing (where he declined to participate or speak) he was more adherent with po Haldol and by 04/27/21 David voiced that he did not want ECT. Soon after he was cooperative with restart of previous medications (Lamictal, Wellbutrin, Zyprexa) and Haldol was tapered as he was declining long acting injectable. On 05/09/21 there was a diversion meeting to look at supervised living options as [facility] given the length of his stay and was felt to require supervised and structured environment to reduce likelihood of illness relapse. Throughout May 2021 he remained largely socially isolated during the day but consistently took his medication, had improved attention to hygiene (showering on average once weekly), spoke with staff and ate all of his meals consistently. He declined making any medication adjustments to his Wellbutrin or further titration of his lamictal. He continued to tolerate his medications without any side effects and became more future-oriented regarding his plans after discharge. 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 He began to sporadically attend a few therapeutic groups and spoke with unit counselors about stressors leading to his hospitalization and ways to improve his health moving forward. He checked his email, made regular calls to his family and engaged in regular journaling and reading during the early weeks of June. He continued to tolerate his medications without any side effects. In the days leading up to discharge his affect brightened and he was observed to smile at times and even made some jokes and remained future-oriented and agreeable to the terms of his 305 outpatient commitment to attend appointments, take his medication, and maintain a clean living enviornment. Risk Factors Assessment Male: Yes : Yes Do You Have Access To A Gun?: No (in supportive living enviornment, pt unable to answer ) Mental Health Diagnoses: Yes Previous Psychiatric Hospitalization: Yes Protective Factors Assessment Employed: No Interval History Identifying Information 40 yo man with history of catatonia, depression, schizoaffective disorder admitted due to concern for decompensation with failure of self-care at [facility]. Admitted on 302, now 305. Chief Complaint "I'm looking forward to leaving". Review of Systems Sleep Information Total Hours of Sleep: 6.5 Sleep Comments: pt on q-15 minute checks Meal Information Percent Meal Consumed - Breakfast: 100 Percent Meal Consumed - Lunch: 100 Percent Meal Consumed - Dinner: 100 Nutrition Comment: 100 Subjective Subjective Patient was seen & assessed and interval progress reviewed with treatment team nursing and social work. David is looking forward to leaving the hospital soon and moving into his new supportive living environment. Reviewed his bloodwork results. He continues to tolerate his medications well without any side effects. Reviewed importance of adherence to medications after discharge which he agrees with stating 'I stopped them before because a nurse told me I had a chemical dependence to medications". Attended meeting with David, social work, nursing and his outpatient orthopaedic physician assistant via phone to review his 305 outpatient commitment which he agrees to and feels is reasonable. Physical Exam Psychiatric Orientation: alert and oriented x 3 Apperance: + disheveled Eye Contact: good eye contact Motor Behavior: no abnormal motor movements Speech: normal rate/rhythm/volume of speech Affect: euthymic affect (some smiles and joking today) Mood: no depressed mood Thought Process: goal directed thought process Thought Content: reality based without delusions Suicidal Thoughts: denies suicidal thoughts Homicidal Thoughts: denies homicidal thoughts Hallucinations: no auditory hallucinations and no visual hallucinations Cognition: recent memory grossly intact, remote memory grossly intact, attention grossly intact and language grossly intact Estimated Intelligence: consistent with education level Insight: + fair insight Judgement: + limited judgement Vital Signs (Past 24 Hours) Last Vital Signs Temp 37.5 C 06/18/21 20:04 Pulse 92 H 06/14/21 06:30 Resp 16 06/14/21 06:30 BP 103/67 06/14/21 06:30 Pulse Ox 94 04/03/21 20:37 Results & Data ([facility]) Laboratory Results Laboratory Results - last 24 hr 06/19/21 06/19/21 08:14 08:14 Fasting Glucose 87 Estimat Average Glucose Pending Hemoglobin A1c Pending Triglycerides 91 Cholesterol 135 LDL Cholesterol, Calc 83 VLDL Cholesterol, Calc 18 HDL Cholesterol 34 Cholesterol/HDL Ratio 4.0 Current Inpatient Medications Current Inpatient Medications: Current Inpatient Medications Acetaminophen (Acetaminophen 325 Mg Tab) 650 mg PO Q4H PRN PRN Reason: Pain or Fever Stop: 07/11/21 11:08 Bupropion HCl (Bupropion Xl 150 Mg Tabcr) 150 mg PO DAILYBL [facility] Stop: 07/12/21 11:59 Last Admin: 06/18/21 12:28 Dose: 150 mg Documented by: Lamotrigine (Lamotrigine 100 Mg Tab) 100 mg PO DAILY@1999 [facility] Stop: 06/27/21 19:59 Last Admin: 06/18/21 19:41 Dose: 100 mg Documented by: Olanzapine (Olanzapine 20 Mg Tablet) 20 mg PO TODAY@1999 [facility] Stop: 07/12/21 19:59 Last Admin: 06/18/21 19:42 Dose: 20 mg Documented by: Mental Health & Subst Abuse Tx Psychiatrist Name of Psychiatrist: Tez Vines Psychiatrist's Date of Appointment with Psychiatrist: 07/19/21 Time of Appointment with Psychiatrist: 8:30am Psychiatric Appointment Comment: [address] [place] [address] Therapist Name of Therapist: . Flight Operations Specialist Name of Flight Operations Specialist: ANA PAULA Ruiz Post Discharge Appointments Primary Care Physician Name Of Family Doctor: Cristy Rivas Primary Care Date of Appointment with PCP: 06/25/21 Time of Appointment with PCP: 10:45am Provider Appointment Comment: [place] [address] Other #1: Name of Aftercare Appointment: [facility] Contact Information Discharge Phone Number: [facility] [phone] Discharge Address: mailing address [address] [place] [address] [place] [address] Contact Information Comment: physical address is [address] [facility] [place] [address]
[2021-06-19] MEDS: buPROPion XL 150 MG TABCR PO SCH (13:49)
[2021-06-19] MEDS: OLANZapine 20 MG TABLET PO SCH (20:31)
[2021-06-19] MEDS: lamoTRIgine 100 MG TAB PO SCH (20:31)
--- NOTE | 2021-06-20 10:00 | Discharge Summary ---
Date of Service June 20, 2021 History of Present Illness David is lying in bed on his side under the covers with his jaw clenched and eyes open. He makes brief eye contact but is otherwise non-verbal throughout the interview. Collateral information and chart review notable for a history of significant psychiatric decompensation in 2018 with recent psychosocial stressors including divorce and potential custody changes regarding his daughter. He has a history of BPAD vs schizoaffective disorder and catatonia. He has not been taking his medications for a month and missed his last appointment with his psychiatrist. He has apparently been hardly moving from a couch and over the last week showing significant reduction in po intake. Branham-Alfonso Catatonia Rating Scale was completed with screeing score of 11 (highest items for mutism, grimacing, withdrawal). Physical Exam Vital Signs (Past 24 Hours) Last Vital Signs Temp 36.3 C L 06/19/21 20:03 Pulse 92 H 06/14/21 06:30 Resp 16 06/14/21 06:30 BP 103/67 06/14/21 06:30 Pulse Ox 94 04/03/21 20:37 See admission H&P and DOD summary. Principal Diagnosis Schizoaffective Disorder Psychiatric Data See stay summary. In short, for the first few months of admission David was isolative to his room and presented with significant symptoms of neurovegetative depression with very limited intake of food and fluids, intermittent incontinence and was mute most days. He required treatment over objection and gradually improved with medication management. In the last 1-1.5 months of his stay he was engaged with his care and showed steady improvement in depression with increased engagement in self-care with normal nutritional intake and engaged with staff. Through his stay there were no behavioral events and safety was maintained. Medication changes included olanzapine, lamictal and Wellbutrin XL and they tolerated this well. Baseline labs of glucose, fasting lipid profile, and weight were preformed and within normal limits with exception of elevated glucose and low HDL. On 06/19/2021 labwork was repeated with normal fasting glucose and normal lipid panel with exception of low HDL but no changes in fasting lipid panel when compared between 02/17/21 prior to olanzapine initiation and results from 06/19/21. Recommend repeat weight in one month. Recommend repeat fasting glucose, HbA1c and fasting lipid profile every 12 weeks and then annually. If symptoms arise recommend checking BP, EKG, prolactin level as clinically indicated or relevant. A family session was held during his admission and we reviewed his 305 outpatient commitment with his outpatient caser prior to discharge. COVID test was negative on day of discharge. Day of Discharge Assessment Today the patient voices readiness for discharge. They note improvement in mood and anxiety. They deny thoughts of harm to self or others. Thoughts are organized and they are clinically improved from admission. There is no evidence of psychosis. They improved in the hospital with support and medication adjustments. They agree to take medications as prescribed and keep follow-up appointments. At the time of the discharge they are deemed to be stable and appropriate for outpatient level of care. They are not deemed to be at imminent risk of harm to self or others. They are aware of emergency and crisis services. Knows to call 911 or go to nearest emergency care center if in a crisis which cannot be handled as an outpatient. Transition of Care Transition Of Care Record: was reviewed with the patient Advance Directives Advance Directives Information Provided: Yes Advance Directives: No Mental Health Advance Directive: No Advance Directives on File: No Living Will: No Power of Manager Local: No Advance Directives Reason:: Declines as Mental Health Visit. Risk Factors Assessment Male: Yes : Yes Do You Have Access To A Gun?: No Mental Health Diagnoses: Yes Substance Use Disorders: No Previous Attempt: No Previous Psychiatric Hospitalization: Yes Hopelessness: No Smoker: No Protective Factors Assessment Employed: No Stable Relationships: Yes Supportive Family: Yes Discharge Data Consultations 03/06/21 10:54 Consult Neurology Routine 04/16/21 09:16 Consult Hospitalist Routine Lab Results 02/08/21 02/08/21 02/08/21 14:32 14:32 14:32 WBC 12.98 H RBC 5.98 Hgb 18.7 H Hct 51.3 MCV 85.8 MCH 31.3 MCHC 36.5 H RDW Std Deviation 39.5 RDW Coeff of Sidney 12.6 Plt Count 275 MPV 10.3 Immature Gran % (Auto) 0.6 Neut % (Auto) 74.3 Lymph % (Auto) 14.2 Cuming % (Auto) 10.4 Eos % (Auto) 0.3 Baso % (Auto) 0.2 Neut # (Auto) 9.64 H Lymph # (Auto) 1.84 Cuming # (Auto) 1.35 H Eos # (Auto) 0.04 Baso # (Auto) 0.03 Immature Gran # (Auto) 0.08 H Sodium 141 Potassium 3.5 Chloride 109 H Carbon Dioxide 21 Anion Gap 11.0 BUN 19 H Creatinine 1.30 Est Cr Clr Drug Dosing 103.0 Est GFR ( Amer) 79.1 Est GFR (Non-Af Amer) 68.3 BUN/Creatinine Ratio 14.9 Glucose 103 H Fasting Glucose Calcium 9.6 Phosphorus Magnesium Total Bilirubin 0.6 AST 10 L ALT 16 Alkaline Phosphatase 123 H Total Protein 7.9 Albumin 3.9 Globulin 4.0 Albumin/Globulin Ratio 1.0 Prealbumin Ceruloplasmin Triglycerides Cholesterol LDL Cholesterol, Calc VLDL Cholesterol, Calc HDL Cholesterol Cholesterol/HDL Ratio Vitamin B12 Folate TSH 0.418 Specimen Hemolysis Urine Color Urine Appearance Urine pH Ur Specific [place] Urine Protein Urine Glucose (UA) Urine Ketones Urine Blood Urine Nitrite Urine Bilirubin Urine Urobilinogen Ur Leukocyte Esterase Urine WBC (Auto) Urine RBC (Auto) U Hyaline Cast (Auto) U Epithel Cells (Auto) Urine Bacteria (Auto) Other Crystals Urine Mucus Salicylates < 1.7 L Urine Opiates Screen Ur Methadone, Qual Acetaminophen < 2 L Urine Barbiturates Ur Phencyclidine (PCP) U Amphetamin/Meth Scrn MDMA (Ecstasy) Screen U Benzodiazepines Scrn Ur Cocaine Metabolite U Marijuana (THC) Screen Ethyl Alcohol mg/dL Serum Copper COVID-19 Eval Order SARS-CoV-2, RNA, NAAT 02/08/21 02/08/21 02/08/21 14:32 17:16 17:16 WBC RBC Hgb Hct MCV MCH MCHC RDW Std Deviation RDW Coeff of Sidney Plt Count MPV Immature Gran % (Auto) Neut % (Auto) Lymph % (Auto) Cuming % (Auto) Eos % (Auto) Baso % (Auto) Neut # (Auto) Lymph # (Auto) Cuming # (Auto) Eos # (Auto) Baso # (Auto) Immature Gran # (Auto) Sodium Potassium Chloride Carbon Dioxide Anion Gap BUN Creatinine Est Cr Clr Drug Dosing Est GFR ( Amer) Est GFR (Non-Af Amer) BUN/Creatinine Ratio Glucose Fasting Glucose Calcium Phosphorus Magnesium Total Bilirubin AST ALT Alkaline Phosphatase Total Protein Albumin Globulin Albumin/Globulin Ratio Prealbumin Ceruloplasmin Triglycerides Cholesterol LDL Cholesterol, Calc VLDL Cholesterol, Calc HDL Cholesterol Cholesterol/HDL Ratio Vitamin B12 Folate TSH Specimen Hemolysis Urine Color Urine Appearance Urine pH Ur Specific [place] Urine Protein Urine Glucose (UA) Urine Ketones Urine Blood Urine Nitrite Urine Bilirubin Urine Urobilinogen Ur Leukocyte Esterase Urine WBC (Auto) Urine RBC (Auto) U Hyaline Cast (Auto) U Epithel Cells (Auto) Urine Bacteria (Auto) Other Crystals Urine Mucus Salicylates Urine Opiates Screen Ur Methadone, Qual Acetaminophen Urine Barbiturates Ur Phencyclidine (PCP) U Amphetamin/Meth Scrn MDMA (Ecstasy) Screen U Benzodiazepines Scrn Ur Cocaine Metabolite U Marijuana (THC) Screen Ethyl Alcohol mg/dL < 3.0 Serum Copper COVID-19 Eval Order Covid19 [facility] SARS-CoV-2, RNA, NAAT NEGATIVE 02/08/21 02/08/21 02/17/21 19:45 19:45 09:12 WBC RBC Hgb Hct MCV MCH MCHC RDW Std Deviation RDW Coeff of Sidney Plt Count MPV Immature Gran % (Auto) Neut % (Auto) Lymph % (Auto) Cuming % (Auto) Eos % (Auto) Baso % (Auto) Neut # (Auto) Lymph # (Auto) Cuming # (Auto) Eos # (Auto) Baso # (Auto) Immature Gran # (Auto) Sodium 140 Potassium 3.7 Chloride 108 H Carbon Dioxide 26 Anion Gap 6.0 BUN 13 Creatinine 1.07 Est Cr Clr Drug Dosing 125.2 Est GFR ( Amer) 100.1 Est GFR (Non-Af Amer) 86.4 BUN/Creatinine Ratio 11.9 Glucose 108 H Fasting Glucose Calcium 8.6 Phosphorus Magnesium Total Bilirubin AST ALT Alkaline Phosphatase Total Protein Albumin Globulin Albumin/Globulin Ratio Prealbumin Ceruloplasmin Triglycerides 93 Cholesterol 135 LDL Cholesterol, Calc 85 VLDL Cholesterol, Calc 19 HDL Cholesterol 31 Cholesterol/HDL Ratio 4 Vitamin B12 Folate TSH Specimen Hemolysis Urine Color Dark Yellow Urine Appearance Turbid A Urine pH 6.0 Ur Specific [place] 1.036 H Urine Protein 1+ H Urine Glucose (UA) Negative Urine Ketones 4+ H Urine Blood Negative Urine Nitrite Negative Urine Bilirubin Negative Urine Urobilinogen Negative Ur Leukocyte Esterase Negative Urine WBC (Auto) 1-5 Urine RBC (Auto) 5-10 H U Hyaline Cast (Auto) 10-30 H U Epithel Cells (Auto) 20-30 H Urine Bacteria (Auto) Negative Other Crystals Ammonium Biurate A Urine Mucus Present A Salicylates Urine Opiates Screen Neg Ur Methadone, Qual Neg Acetaminophen Urine Barbiturates Neg Ur Phencyclidine (PCP) Neg U Amphetamin/Meth Scrn Neg MDMA (Ecstasy) Screen Neg U Benzodiazepines Scrn Neg Ur Cocaine Metabolite Neg U Marijuana (THC) Screen Neg Ethyl Alcohol mg/dL Serum Copper COVID-19 Eval Order SARS-CoV-2, RNA, NAAT 02/21/21 02/21/21 03/07/21 07:36 11:20 07:33 WBC 7.14 RBC 5.39 Hgb 16.6 Hct 47.5 MCV 88.1 MCH 30.8 MCHC 34.9 RDW Std Deviation 40.8 RDW Coeff of Sidney 12.8 Plt Count 168 MPV 10.5 H Immature Gran % (Auto) 0.4 Neut % (Auto) 67.9 Lymph % (Auto) 20.2 Cuming % (Auto) 8.3 Eos % (Auto) 2.9 Baso % (Auto) 0.3 Neut # (Auto) 4.85 Lymph # (Auto) 1.44 Cuming # (Auto) 0.59 Eos # (Auto) 0.21 Baso # (Auto) 0.02 Immature Gran # (Auto) 0.03 H Sodium 141 138 Potassium 3.9 3.2 L Chloride 109 H 108 H Carbon Dioxide 23 23 Anion Gap 9.0 8.0 BUN 14 10 Creatinine 0.95 0.92 Est Cr Clr Drug Dosing 136.7 139.4 Est GFR ( Amer) 115.6 120.2 Est GFR (Non-Af Amer) 99.7 103.7 BUN/Creatinine Ratio 14.9 10.8 Glucose 81 110 H Fasting Glucose Calcium 8.5 8.8 Phosphorus Magnesium Total Bilirubin 0.8 0.6 AST 39 H 26 ALT 64 60 Alkaline Phosphatase 98 93 Total Protein 6.0 L 6.0 L Albumin 3.0 L 3.0 L Globulin 3.0 3.0 Albumin/Globulin Ratio 1.0 1.0 Prealbumin Ceruloplasmin Triglycerides Cholesterol LDL Cholesterol, Calc VLDL Cholesterol, Calc HDL Cholesterol Cholesterol/HDL Ratio Vitamin B12 Folate TSH Specimen Hemolysis Urine Color Urine Appearance Urine pH Ur Specific [place] Urine Protein Urine Glucose (UA) Urine Ketones Urine Blood Urine Nitrite Urine Bilirubin Urine Urobilinogen Ur Leukocyte Esterase Urine WBC (Auto) Urine RBC (Auto) U Hyaline Cast (Auto) U Epithel Cells (Auto) Urine Bacteria (Auto) Other Crystals Urine Mucus Salicylates Urine Opiates Screen Ur Methadone, Qual Acetaminophen Urine Barbiturates Ur Phencyclidine (PCP) U Amphetamin/Meth Scrn MDMA (Ecstasy) Screen U Benzodiazepines Scrn Ur Cocaine Metabolite U Marijuana (THC) Screen Ethyl Alcohol mg/dL Serum Copper COVID-19 Eval Order SARS-CoV-2, RNA, NAAT 03/14/21 03/23/21 03/27/21 10:23 08:15 19:20 WBC RBC Hgb Hct MCV MCH MCHC RDW Std Deviation RDW Coeff of [place] Plt Count MPV Immature Gran % (Auto) Neut % (Auto) Lymph % (Auto) Cuming % (Auto) Eos % (Auto) Baso % (Auto) Neut # (Auto) Lymph # (Auto) Cuming # (Auto) Eos # (Auto) Baso # (Auto) Immature Gran # (Auto) Sodium 140 141 141 Potassium 3.9 4.0 3.6 Chloride 111 H 110 H 112 H Carbon Dioxide 24 20 L 15 L Anion Gap 5.0 11.0 15.0 H BUN 5 L 14 Creatinine 0.91 0.91 Est Cr Clr Drug Dosing 140.9 140.9 Est GFR ( Amer) 121.8 121.8 Est GFR (Non-Af Amer) 105.0 105.0 BUN/Creatinine Ratio 5.6 L 15.3 Glucose 96 85 Fasting Glucose Calcium 8.9 8.7 Phosphorus Magnesium Total Bilirubin 0.7 0.9 AST 22 15 ALT 84 H 45 Alkaline Phosphatase 106 116 Total Protein 5.9 L 6.8 Albumin 3.1 L 3.3 L Globulin 2.8 3.5 Albumin/Globulin Ratio 1.1 1.0 Prealbumin Ceruloplasmin Triglycerides Cholesterol LDL Cholesterol, Calc VLDL Cholesterol, Calc HDL Cholesterol Cholesterol/HDL Ratio Vitamin B12 Folate TSH Specimen Hemolysis Urine Color Urine Appearance Urine pH Ur Specific [place] Urine Protein Urine Glucose (UA) Urine Ketones Urine Blood Urine Nitrite Urine Bilirubin Urine Urobilinogen Ur Leukocyte Esterase Urine WBC (Auto) Urine RBC (Auto) U Hyaline Cast (Auto) U Epithel Cells (Auto) Urine Bacteria (Auto) Other Crystals Urine Mucus Salicylates Urine Opiates Screen Ur Methadone, Qual Acetaminophen Urine Barbiturates Ur Phencyclidine (PCP) U Amphetamin/Meth Scrn MDMA (Ecstasy) Screen U Benzodiazepines Scrn Ur Cocaine Metabolite U Marijuana (THC) Screen Ethyl Alcohol mg/dL Serum Copper COVID-19 Eval Order SARS-CoV-2, RNA, NAAT 03/28/21 04/05/21 04/07/21 12:32 09:07 08:02 WBC RBC Hgb Hct MCV MCH MCHC RDW Std Deviation RDW Coeff of [place] Plt Count MPV Immature Gran % (Auto) Neut % (Auto) Lymph % (Auto) Cuming % (Auto) Eos % (Auto) Baso % (Auto) Neut # (Auto) Lymph # (Auto) Cuming # (Auto) Eos # (Auto) Baso # (Auto) Immature Gran # (Auto) Sodium 142 140 140 Potassium 3.6 3.1 L 3.2 L Chloride 111 H 106 107 Carbon Dioxide 18 L 21 26 Anion Gap 13.0 H 13.0 H 8.0 BUN 12 7 9 Creatinine 1.01 0.90 0.92 Est Cr Clr Drug Dosing 127.0 142.5 135.7 Est GFR ( Amer) 107.3 123.4 120.2 Est GFR (Non-Af Amer) 92.6 106.5 103.7 BUN/Creatinine Ratio 11.6 8.0 L 9.8 L Glucose 111 H 111 H 117 H Fasting Glucose Calcium 9.7 9.1 8.8 Phosphorus 3.3 Magnesium 2.1 Total Bilirubin 0.9 0.7 AST 10 L 38 H ALT 25 95 H Alkaline Phosphatase 118 H 104 Total Protein 7.1 6.1 L Albumin 3.5 3.2 L Globulin 3.6 2.9 Albumin/Globulin Ratio 1.0 1.1 Prealbumin 26.5 Ceruloplasmin Triglycerides Cholesterol LDL Cholesterol, Calc VLDL Cholesterol, Calc HDL Cholesterol Cholesterol/HDL Ratio Vitamin B12 Folate TSH Specimen Hemolysis Urine Color Urine Appearance Urine pH Ur Specific [place] Urine Protein Urine Glucose (UA) Urine Ketones Urine Blood Urine Nitrite Urine Bilirubin Urine Urobilinogen Ur Leukocyte Esterase Urine WBC (Auto) Urine RBC (Auto) U Hyaline Cast (Auto) U Epithel Cells (Auto) Urine Bacteria (Auto) Other Crystals Urine Mucus Salicylates Urine Opiates Screen Ur Methadone, Qual Acetaminophen Urine Barbiturates Ur Phencyclidine (PCP) U Amphetamin/Meth Scrn MDMA (Ecstasy) Screen U Benzodiazepines Scrn Ur Cocaine Metabolite U Marijuana (THC) Screen Ethyl Alcohol mg/dL Serum Copper COVID-19 Eval Order SARS-CoV-2, RNA, NAAT 04/10/21 04/10/21 04/10/21 09:18 09:18 09:18 WBC RBC Hgb Hct MCV MCH MCHC RDW Std Deviation RDW Coeff of [place] Plt Count MPV Immature Gran % (Auto) Neut % (Auto) Lymph % (Auto) Cuming % (Auto) Eos % (Auto) Baso % (Auto) Neut # (Auto) Lymph # (Auto) Cuming # (Auto) Eos # (Auto) Baso # (Auto) Immature Gran # (Auto) Sodium Potassium 3.4 L Chloride Carbon Dioxide Anion Gap BUN Creatinine Est Cr Clr Drug Dosing Est GFR ( Amer) Est GFR (Non-Af Amer) BUN/Creatinine Ratio Glucose Fasting Glucose Calcium Phosphorus Magnesium Total Bilirubin AST ALT Alkaline Phosphatase Total Protein Albumin Globulin Albumin/Globulin Ratio Prealbumin Ceruloplasmin 21 Triglycerides Cholesterol LDL Cholesterol, Calc VLDL Cholesterol, Calc HDL Cholesterol Cholesterol/HDL Ratio Vitamin B12 661 Folate 4.00 L TSH Specimen Hemolysis Urine Color Urine Appearance Urine pH Ur Specific [place] Urine Protein Urine Glucose (UA) Urine Ketones Urine Blood Urine Nitrite Urine Bilirubin Urine Urobilinogen Ur Leukocyte Esterase Urine WBC (Auto) Urine RBC (Auto) U Hyaline Cast (Auto) U Epithel Cells (Auto) Urine Bacteria (Auto) Other Crystals Urine Mucus Salicylates Urine Opiates Screen Ur Methadone, Qual Acetaminophen Urine Barbiturates Ur Phencyclidine (PCP) U Amphetamin/Meth Scrn MDMA (Ecstasy) Screen U Benzodiazepines Scrn Ur Cocaine Metabolite U Marijuana (THC) Screen Ethyl Alcohol mg/dL Serum Copper 68 L COVID-19 Eval Order SARS-CoV-2, RNA, NAAT 04/19/21 06/19/21 06/20/21 06:53 08:14 Unknown WBC RBC Hgb Hct MCV MCH MCHC RDW Std Deviation RDW Coeff of Sidney Plt Count MPV Immature Gran % (Auto) Neut % (Auto) Lymph % (Auto) Cuming % (Auto) Eos % (Auto) Baso % (Auto) Neut # (Auto) Lymph # (Auto) Cuming # (Auto) Eos # (Auto) Baso # (Auto) Immature Gran # (Auto) Sodium 141 Potassium 4.1 Chloride 111 H Carbon Dioxide 24 Anion Gap 6.0 BUN 9 Creatinine 0.80 Est Cr Clr Drug Dosing 153.8 Est GFR ( Amer) 129.5 Est GFR (Non-Af Amer) 111.7 BUN/Creatinine Ratio 10.6 Glucose 111 H Fasting Glucose 87 Calcium 9.1 Phosphorus Magnesium Total Bilirubin AST ALT Alkaline Phosphatase Total Protein Albumin Globulin Albumin/Globulin Ratio Prealbumin Ceruloplasmin Triglycerides 91 Cholesterol 135 LDL Cholesterol, Calc 83 VLDL Cholesterol, Calc 18 HDL Cholesterol 34 Cholesterol/HDL Ratio 4.0 Vitamin B12 Folate TSH Specimen Hemolysis Urine Color Urine Appearance Urine pH Ur Specific [place] Urine Protein Urine Glucose (UA) Urine Ketones Urine Blood Urine Nitrite Urine Bilirubin Urine Urobilinogen Ur Leukocyte Esterase Urine WBC (Auto) Urine RBC (Auto) U Hyaline Cast (Auto) U Epithel Cells (Auto) Urine Bacteria (Auto) Other Crystals Urine Mucus Salicylates Urine Opiates Screen Ur Methadone, Qual Acetaminophen Urine Barbiturates Ur Phencyclidine (PCP) U Amphetamin/Meth Scrn MDMA (Ecstasy) Screen U Benzodiazepines Scrn Ur Cocaine Metabolite U Marijuana (THC) Screen Ethyl Alcohol mg/dL Serum Copper COVID-19 Eval Order SARS-CoV-2, RNA, NAAT NEGATIVE Hospital Course (1) Schizoaffective disorder: 02/09/21-06/19/21: Given the patient's length of stay, this serves as a care summary. He initially presented somewhat catatonic in appearance and had mixed response to Ativan challenge though ultimately it was felt that he did not present with catatonia but rather severe neurovegetative symptoms of depressive. His commitment was extended and a 2nd opinion for meds over objection was sought as he was mute, in bed with limited PO and required DVT prophylaxis and potassium repletion. After no consistent response to IM Ativan, given refusal of oral Latuda and Zyprexa he was started on Zyprexa IM with apparent worsening. An EEG and MRI were obtained which were unremarkable and care continued on an extended commitment (304). Emsam patch to treat presumed psychotic depression was acquired with some response by week 4. Neurology was consulted on 03/07/21 and had no additional recommendations. [facility] March given lack of progress and Haldol trial was initiated with poor PO adherence and need for ongoing IMs. A court order was sought for ECT as treatment options had been exhausted and patient was unable to consent; the order was granted on 04/19/21. After that hearing (where he declined to participate or speak) he was more adherent with po Haldol and by 04/27/21 David voiced that he did not want ECT. Soon after he was cooperative with restart of previous medications (Lamictal, Wellbutrin, Zyprexa) and Haldol was tapered as he was declining long acting injectable. On 05/09/21 there was a diversion meeting to look at supervised living options as [facility] lost [facility] the [facility] given the length of his stay and was felt to require supervised and structured environment to reduce likelihood of illness relapse. Throughout May 2021 he remained largely socially isolated during the day but consistently took his medication, had improved attention to hygiene (showering on average once weekly), spoke with staff and ate all of his meals consistently. He declined making any medication adjustments to his Wellbutrin or further titration of his lamictal. He continued to tolerate his medications without any side effects and became more future-oriented regarding his plans after discharge. He began to re- engage with outpatient supports including his parents and his lutheran denitrator. He began to sporadically attend a few therapeutic groups and spoke with unit counselors about stressors leading to his hospitalization and ways to improve his health moving forward. He checked his email, made regular calls to his family and engaged in regular journaling and reading during the early weeks of June. He continued to tolerate his medications without any side effects. In the days leading up to discharge his affect brightened and he was observed to smile at times and even made some jokes and remained future-oriented and agreeable to the terms of his 305 outpatient commitment to attend appointments, take his medication, and maintain a clean living environment. Mental Health & Subst Abuse Tx Psychiatrist Name of Psychiatrist: [facility] Date of Appointment with Psychiatrist: 07/19/21 Time of Appointment with Psychiatrist: 8:30am Psychiatric Appointment Comment: [place] [address] Psychiatrist Release of Information: Obtained, Reviewed and Signed Therapist Name of Therapist: . Sales Office Assistant Name of Sales Office Assistant: ANA PAULA Ruiz Phone Number for Sales Office Assistant: [phone] Date of Appointment with Sales Office Assistant: 06/20/21 Time of Appointment with Sales Office Assistant: 11:00 AM Case Management Appointment Comment: Standing appointment on at 11am- in person Sales Office Assistant Release of Information: Obtained, Reviewed and Signed Post Discharge Appointments Primary Care Physician Name Of Family Doctor: Cristy Rivas Primary [facility] Date of Appointment with PCP: 06/25/21 Time of Appointment with PCP: 10:45am Provider Appointment Comment: [facility] [address] Primary Care Release of Information: Obtained, Reviewed and Signed Other #1: Name of Aftercare Appointment: [place] [facility] Phone Number of Aftercare Appointment: [phone] Aftercare Appointment Comment: [address]: [facility] [address] Release of Information Aftercare Appointment: Obtained, Reviewed and Signed #2: Name of Aftercare Appointment: [facility] Phone Number of Aftercare Appointment: [phone] Aftercare Appointment Comment: Please follow up regarding rep payee transfer. Contact Information Discharge Phone Number: [facility] [phone] Discharge Address: mailing address [address] [address] Contact Information Comment: [address] [facility] [address] Discharge Plan Discharge Items Patient Disposition: Personal Fdc Reason For Visit: SCHIZOAFFECTIVE D/O Discharge Diagnosis: Schizoaffective Disorder Activity: Resume your previous activity Non-emergency contact: Primary Care Provider, Psychiatrist and [employer] Call non-emergency contact if: you have any medication questions and your symptoms worsen Follow-up/Referrals: PCP,NO [Primary Care Provider] - Diet: Regular Addtl Attending Provider Instructions: SPECIAL CARE INSTRUCTIONS: 1. Follow through with your scheduled aftercare appointments. If unable to keep an appointment, please call to reschedule. 2. Take your medication only as prescribed. Medication should not be changed or stopped without the approval of your doctor. In the event of worsening symptoms or concerns about side effects, contact your doctor immediately. 3. Utilize new healthy coping skills, anger management skills, and stress management skills learned during your hospitalization. Journal feelings and process them with a support person. Identify stressors or situations that may result in relapse, deterioration or inappropriate behaviors and develop a plan to deal with those issues. 4. If your coping skills are ineffective and you are in crisis, contact your outpatient providers for direction. If unable to reach your providers, please call the [facility] CRISIS LINE AT , go to the [facility] walk-in center at [address], [address], [place], or go to the closest Emergency Room. 5. Avoid alcohol and un-prescribed drugs. 6. You have been provided with the Mental Health Advance Directives Pamphlet for your review. 7. Your condition is stable for discharge to outpatient level of care, but recovery is an ongoing process. Ifthoughts to harm yourself or others return, follow the safety plan developed during your stay. Planning for a safe return home includes securing weapons. Our treatment team recommends weaponsbe removed from the home until your outpatient provider reassesses your progress. In rare cases where the items themselvescannot be removed, guns and ammunitionshould be secured separatelyand keys stored by a reliable personoutside of the home. If you were admitted on an involuntary commitment, the police or other legal authorities may be involved in this process. AFTERCARE APPOINTMENTS: * Please call your insurance company prior to your scheduled appointment to confirm your aftercare providers are covered. Take your insurance information to your appointments. WHO TO CALL AND WHEN: Medical Emergencies: For questions or emergencies related to your hospital stay, please contact the Inpatient Behavioral Health Unit at [phone]. A gas pumper is on-call 01/12 for the Behavioral Health Unit for emergencies At any time you feel your situation is an emergency, you may also call 911 immediately. Pending Studies at Discharge: No Stand-Alone Forms: My [facility] Skilled Items Patient informed of condition?: Yes DNR: No Discharge Level of Care: Other Communicable Disease: No Discharge Prognosis: Stable Lines: None Urinary Catheter: No Medications and DC Order Prescriptions: New olanzapine 20 mg tablet 20 mg PO HS 31 Days Qty: 31 RF: 0 bupropion HCl 150 mg tablet extended release 24 hr 150 mg PO QAM 31 Days Qty: 31 RF: 0 lamotrigine 100 mg tablet 100 mg PO DAILY 31 Days Qty: 31 RF: 0 Discontinued olanzapine [Zyprexa] 10 mg Tablet 15 mg PO HS RF: 0 lamotrigine 200 mg tablet 200 mg PO BID RF: 0 bupropion HCl 100 mg tablet sustained-release 12 hr 100 mg PO BID RF: 0 Discharge Orders: Discharge Order (Routine); Ordered 06/20/21 Ordered By: Tete Grijalva/Vijay Patient Handouts: Journaling for Mental Health Admission Data Admit Date/Time: 02/09/21 01:22 Attending Provider: Rose Arevalo Admit Provider: Tete Garces Primary Care Provider: PCP,NO Other Providers: Jann Anders ; Antonio Valadez ; Jessica Slaughter ; Nuvia Rivera ; Milly Rick ; Luis E Godinez Other Interventions: Discharge Summary Assessment (RN) Last Done: 06/20/21 09:58 PSY Interdisciplinary Discharge Planning Last Done: 06/20/21 09:42 Coding Level of Care Code 71407 D/C day mgmt > 30 min Diagnoses Schizoaffective disorder F25.9 Time Spent (min) 40
[2021-06-20] MEDS: buPROPion XL 150 MG TABCR PO SCH (10:49)
[2021-06-20 10:59] LABS: Estimated Average Glucose 82 mg/dl; Hemoglobin A1C 4.5 % (4.5-5.6)
== END 2021-06-20 11:00 | disposition home or self-care (01) | DRG 885 ==
LOC: ED 13:04 → 3S 02-09 01:22 → SUATTDRO 02-09 01:22 → 3S 02-09 01:48

== ENCOUNTER 2022-11-03 14:10 | Inpatient (IN) ==
[2022-11-03] MEDS ORDERED: SODIUM CHLORIDE 0.9% 1,000 ML IV ONE ×2 (15:42→16:49)
[2022-11-03 15:43] LABS: Basophils # (auto) 0.09 K/uL (0-0.2); Basophils % (auto) 0.6 %; Eosinophils # (auto) 0.11 K/uL (0-0.50); Eosinophils % (auto) 0.7 %; Hematocrit (blood only) 51.6 % (42.0-52.0); Hemoglobin 18.4 g/dl (14.0-18.0); Immature Granulocytes # (auto) 0.19 K/uL (0.01-0.20); Immature Granulocytes % (auto) 1.2 %; Lymphocytes # (auto) 1.96 K/uL (1.2-3.4); Lymphocytes % (auto) 12.7 %; Mean Corpuscular Hemoglobin 31.7 pg (25.0-34.0); Mean Corpuscular Hgb Conc 35.7 g/dL (32.0-36.0); Mean Platelet Volume 10.6 fL (9.4-12.4); Monocytes # (auto) 1.08 K/uL (0.11-0.59); Neutrophils # (auto) 11.98 K/uL (1.40-6.50); Neutrophils % (auto) 77.8 %; Platelet Count 330 K/uL (130-400); RDW Coefficient of Variation 12.3 % (11.5-14.5); RDW Standard Deviation 39.9 fL (36.4-46.3); White Blood Count 15.41 K/ul (4.8-10.8)
[2022-11-03] MEDS ORDERED: CEFEPIME 2,000 MG/20 ML VIAL IV STA (15:43)
--- NOTE | 2022-11-03 15:56 | Emergency Department Note ---
Impression & Plan Altered mental status, Pneumonia, Leukocytosis, Acute dehydration ED Provider Note NAME: LAMAR SWIFT AGE: 42 SEX: M : 1980 ARRIVES VIA: Ambulance INFORMANT: [Nursing, EMS] ED PROVIDER(S): [Socrates Johnson MD] CHIEF COMPLAINT: Illness HISTORY OF PRESENT ILLNESS: The patient is a 42-year-old male who was brought by ambulance after a welfare check found him confused, minimally responsive and covered in feces. The patient was in our ED recently, he was discharged on 10/30. He had been in the ED for a mental health evaluation. He does have a bipolar and schizoaffective disorder history. The patient can provide no history at the present time. He yells to painful stimuli. He does move all extremities. He does not answer any questions. Given the circumstances, no further history obtainable. PMHx/PSHx: See Below SOCIAL HISTORY: See Below. PHYSICAL EXAM: GENERAL: Patient is in no acute distress. HEENT: No acute trauma, normocephalic atraumatic, mucous membranes markedly dry, no nasal congestion. Pupils are quite large and react to light. NECK: No stridor, no adenopathy, no meningismus, trachea is midline. Neck appears supple. LUNGS: Clear to auscultation bilaterally when listening anterior, no wheeze, no rhonchi, breath sounds equal. HEART: Tachycardic, no murmurs, regular rhythm. ABDOMEN: Soft, nontender, bowel sounds positive, no peritonitis. EXTREMITIES: No cyanosis or edema, full range of motion of all the joints without pain or difficulty, no signs for acute trauma. NEUROLOGIC: Holds his eyes closed when attempts are made to open them. Yells out to painful stimuli. Does move all extremities. Does not answer any questions. SKIN: No rash, no jaundice, no diaphoresis. Some stool noted on his extremities. DIFFERENTIAL DIAGNOSIS: Bacteremia or sepsis, medication overdose, UTI, dehydration, electrolyte imbalance, psychosis, meningitis, among others. EMERGENCY DEPARTMENT COURSE/PROCEDURES: Prior/Outside records reviewed: Recent ED notes. EMS notes. ECG per my interpretation: Indication was possible sepsis. The ECG shows sinus tachycardia with a rate of 111. There are some inverted T waves noted in the inferior leads. There is no ST elevation, no PVCs. The QTc is 476. Continuous Cardiac Monitoring per my interpretation: An order was placed for continuous cardiac monitoring. The monitor shows a rate of 118 with sinus tachycardia. Critical Care Note: I have personally spent 63 minutes of critical care time in the direct management of this patient. This includes bedside care, interpretation of diagnostic studies, and testing, discussion with consultants, patient, and family members, and other required patient management activities. This 63 minutes is in excess of all separately billable procedures. MEDICAL DECISION MAKING: There is a moderate leukocytosis, this certainly could be consistent with infection or the stress of his presentation. There was an elevation to the hemoglobin consistent with dehydration. There was a normal platelet count. INR was normal, the PTT are was elevated, this has been documented before. There was a slight anion gap with a lower CO2, these findings are likely consistent with his dehydration. No renal failure. Lactic acid level was not elevated making severe sepsis less likely. No concerning liver enzyme elevation. Procalcitonin level was not elevated making serious bacterial infection less likely. ECG showed a sinus tachycardia, no ST elevation. Cardiac enzyme testing x1 is not consistent with acute cardiac injury. Urinalysis showed significant dehydration, no infection. Urine tox was negative. Aspirin, Tylenol and alcohol levels were undetectable. COVID test returned negative. Chest film per my review showed a potential left lower lung pneumonia. Brain CT showed no acute bleed or mass effect. On exam, the patient was nonverbal. He initially responded only to painful stimuli with yelling, during his ER stay, he became more interactive and awake but remained nonverbal. On my exam, his neck was supple. Patient received IV saline, 2.5 L. This amount of fluid was given for potential sepsis. The ideal body weight was used for the fluid calculation. He received IV cefepime as empiric antibiotic coverage. As mentioned above, the patient has shown some improvement in his mental status. He is not functioning well at home. He was covered in stool when seen by EMS. He presents quite dehydrated. He appears to have pneumonia by our testing. The patient requires a hospital stay. He is in no condition to be admitted to the psychiatric floor. A 302 petition was filed against him prior to arrival, however, this is going to be put on hold until he is more medically clear. I did speak with the patient, I did speak with case management, the on-call hospitalist was consulted. DISPOSITION: Patient's presentation and findings warrant a hospital stay. Past Med/Surg History Medical History Anxiety Avolition Bipolar disorder Bipolar disorder with depression Catatonia Depression Mutism Noncompliance Obesity Psychosis Schizoaffective disorder Surgical History No pertinent past surgical history Family History (Updated 11/03/22 @ 19:24 by aJnae Jones PA-C) Other Family history unknown Social History Smoking Status: Current some day smoker Preferred Language: Telugu Communication Ability: non-verbal Communication Ability Comment: Catatonic like behavior Dental Laboratory Technician Required: No Beliefs That Will Affect Care: None Current Living Situation: Alone Other Information That Helps Us Care for You: No Feels Safe at Home: Declines to Answer Gender Identity: Male Assistive Devices: Glasses Allergies Allergies Allergy/AdvReac Type Severity Reaction Status Date / Time No Known Allergies Allergy Verified 11/03/22 17:28 Home Meds Home Medications Medication Instructions Recorded Confirmed benztropine 0.5 mg tablet 0.5 mg PO HS 08/14/22 11/03/22 haloperidol 5 mg tablet 5 mg PO BID 08/14/22 11/03/22 lamotrigine 25 mg tablet 50 mg PO BID 08/14/22 11/03/22 venlafaxine 150 mg 150 mg PO QAM 08/14/22 11/03/22 capsule,extended release 24 hr Results & Data (ED) Vital Signs Vital Signs - 24 hr 11/03/22 14:48 11/03/22 14:51 11/03/22 17:13 Temperature 37.6 C H Temperature Source Axillary Pulse Rate 101 H 118 H Pulse Rate [Left Apical] 109 H Pulse Rate from SpO2 Sensor Pulse Rhythm [Left Apical] Regular Pulse Strength [Left Apical] Normal Respiratory Rate 20 20 Respiratory Effort / Characteristics Non-Labored Non-Labored Spontaneous Respiratory Depth Normal Normal Blood Pressure 160/90 H Blood Pressure [Right Arm] 132/97 Blood Pressure Mean 113 Blood Pressure Mean [Right Arm] 108 Pulse Oximetry 98 98 Oxygen Delivery Method Room Air Room Air Sepsis Recent Fever Within 48 Hours Yes Sepsis New/Unexplained Change in Mental Status Yes Sepsis Action Taken by Nursing No Action Required 11/03/22 15:30 11/03/22 16:00 11/03/22 16:30 Temperature Temperature Source Pulse Rate 109 H 118 H 114 H Pulse Rate [Left Apical] Pulse Rate from SpO2 Sensor 110 H 114 H Pulse Rhythm [Left Apical] Pulse Strength [Left Apical] Respiratory Rate 35 H 46 H 37 H Respiratory Effort / Characteristics Respiratory Depth Blood Pressure Blood Pressure [Right Arm] Blood Pressure Mean Blood Pressure Mean [Right Arm] Pulse Oximetry 96 100 Oxygen Delivery Method Sepsis Recent Fever Within 48 Hours Sepsis New/Unexplained Change in Mental Status Sepsis Action Taken by Nursing 11/03/22 17:15 Temperature Temperature Source Pulse Rate 110 H Pulse Rate [Left Apical] Pulse Rate from SpO2 Sensor 109 H Pulse Rhythm [Left Apical] Pulse Strength [Left Apical] Respiratory Rate 30 H Respiratory Effort / Characteristics Respiratory Depth Blood Pressure 132/97 Blood Pressure [Right Arm] Blood Pressure Mean 108 Blood Pressure Mean [Right Arm] Pulse Oximetry 99 Oxygen Delivery Method Sepsis Recent Fever Within 48 Hours Sepsis New/Unexplained Change in Mental Status Sepsis Action Taken by Prison Medications Current Medication List: was personally reviewed by me Laboratory Data Attestation: I reviewed the patient's lab results. 11/03/22 14:55 11/03/22 14:55 Lab Results 11/03/22 11/03/22 11/03/22 Range/Units 14:55 14:55 14:55 WBC 15.41 H (4.8-10.8) K/ul RBC 5.80 (4.70-6.10) M/uL Hgb 18.4 H (14.0-18.0) g/dl Hct 51.6 (42.0-52.0) % MCV 89.0 (80.0-100.0) fL MCH 31.7 (25.0-34.0) pg MCHC 35.7 (32.0-36.0) g/dL RDW Std Deviation 39.9 (36.4-46.3) fL RDW Coeff of [place] 12.3 (11.5-14.5) % Plt Count 330 (130-400) K/uL MPV 10.6 (9.4-12.4) fL Immature Gran % (Auto) 1.2 % Neut % (Auto) 77.8 % Lymph % (Auto) 12.7 % [place] % (Auto) 7.0 % Eos % (Auto) 0.7 % Baso % (Auto) 0.6 % Neut # (Auto) 11.98 H (1.40-6.50) K/uL Lymph # (Auto) 1.96 (1.2-3.4) K/uL [place] # (Auto) 1.08 H (0.11-0.59) K/uL Eos # (Auto) 0.11 (0-0.50) K/uL Baso # (Auto) 0.09 (0-0.2) K/uL Immature Gran # (Auto) 0.19 (0.01-0.20) K/uL PT 12.3 H (9.0-12.0) Seconds INR 1.1 (0.9-1.1) APTT 49.7 H* (21.0-31.0) Seconds PTT Ratio 1.8 Sodium 139 (136-145) mmol/L Potassium 4.8 (3.5-5.1) mmol/L Chloride 107 (98-107) mmol/L Carbon Dioxide 15 L (21-32) mmol/L Anion Gap 17 H (3-11) BUN 17 (6-23) mg/dl Creatinine 1.05 (0.6-1.4) mg/dl Est Cr Clr Drug Dosing 113.0 ml/min Est GFR ( Amer) 101.0 ml/min Est GFR (Non-Af Amer) 87.1 ml/min BUN/Creatinine Ratio 16.2 (10-20) Glucose 86 (70-99(Fasting)) mg/dl Lactate (0.4-2.0) mmol/L Calcium 10.2 (8.6-10.3) mg/dl Phosphorus (2.5-4.9) mg/dl Magnesium 2.3 (1.7-2.4) mg/dl Total Bilirubin 0.7 (0.2-1.0) mg/dl AST 18 (13-39) U/L ALT 12 (7-52) U/L Alkaline Phosphatase 125 H (34-104) U/L Troponin I High Sens (0-20) pg/ml Total Protein 8.3 (6.0-8.3) gm/dl Albumin 4.9 (3.4-5.0) gm/dl Globulin 3.4 (2.5-4.0) gm/dl Albumin/Globulin Ratio 1.4 (0.9-2) Procalcitonin (0-0.5) ng/ml Urine Color Urine Appearance (Clear) Urine pH (4.5-7.5) Ur Specific [place] (1.000-1.030) Urine Protein (Negative) Urine Glucose (UA) (Negative) Urine Ketones (Negative) Urine Blood (Negative) Urine Nitrite (Negative) Urine Bilirubin (Negative) Urine Urobilinogen (Negative) Ur Leukocyte Esterase (Negative) Urine WBC (Auto) (0-5) /hpf Urine RBC (Auto) (0-4) /hpf U Hyaline Cast (Auto) (0-5) /lpf U Epithel Cells (Auto) (0-5) /lpf Urine Bacteria (Auto) (Negative) Salicylates (3.0-30) mg/dl Urine Opiates Screen (Neg) Ur Methadone, Qual (Neg) Acetaminophen (10-30) ug/ml Urine Barbiturates (Neg) Ur Phencyclidine (PCP) (Neg) U Amphetamin/Meth Scrn (Neg) MDMA (Ecstasy) Screen (Neg) U Benzodiazepines Scrn (Neg) Ur Cocaine Metabolite (Neg) U Marijuana (THC) Screen (Neg) Ethyl Alcohol mg/dL (<10.0) mg/dl SARS-CoV-2, RNA, NAAT (NEGATIVE) 11/03/22 11/03/22 11/03/22 Range/Units 14:55 14:55 14:55 WBC (4.8-10.8) K/ul RBC (4.70-6.10) M/uL Hgb (14.0-18.0) g/dl Hct (42.0-52.0) % MCV (80.0-100.0) fL MCH (25.0-34.0) pg MCHC (32.0-36.0) g/dL RDW Std Deviation (36.4-46.3) fL RDW Coeff of [place] (11.5-14.5) % Plt Count (130-400) K/uL MPV (9.4-12.4) fL Immature Gran % (Auto) % Neut % (Auto) % Lymph % (Auto) % [place] % (Auto) % Eos % (Auto) % Baso % (Auto) % Neut # (Auto) (1.40-6.50) K/uL Lymph # (Auto) (1.2-3.4) K/uL [place] # (Auto) (0.11-0.59) K/uL Eos # (Auto) (0-0.50) K/uL Baso # (Auto) (0-0.2) K/uL Immature Gran # (Auto) (0.01-0.20) K/uL PT (9.0-12.0) Seconds INR (0.9-1.1) APTT (21.0-31.0) Seconds PTT Ratio Sodium (136-145) mmol/L Potassium (3.5-5.1) mmol/L Chloride (98-107) mmol/L Carbon Dioxide (21-32) mmol/L Anion Gap (3-11) BUN (6-23) mg/dl Creatinine (0.6-1.4) mg/dl Est Cr Clr Drug Dosing ml/min Est GFR ( Amer) ml/min Est GFR (Non-Af Amer) ml/min BUN/Creatinine Ratio (10-20) Glucose (70-99(Fasting)) mg/dl Lactate (0.4-2.0) mmol/L Calcium (8.6-10.3) mg/dl Phosphorus (2.5-4.9) mg/dl Magnesium (1.7-2.4) mg/dl Total Bilirubin (0.2-1.0) mg/dl AST (13-39) U/L ALT (7-52) U/L Alkaline Phosphatase (34-104) U/L Troponin I High Sens (0-20) pg/ml Total Protein (6.0-8.3) gm/dl Albumin (3.4-5.0) gm/dl Globulin (2.5-4.0) gm/dl Albumin/Globulin Ratio (0.9-2) Procalcitonin 0.07 (0-0.5) ng/ml Urine Color Urine Appearance (Clear) Urine pH (4.5-7.5) Ur Specific [place] (1.000-1.030) Urine Protein (Negative) Urine Glucose (UA) (Negative) Urine Ketones (Negative) Urine Blood (Negative) Urine Nitrite (Negative) Urine Bilirubin (Negative) Urine Urobilinogen (Negative) Ur Leukocyte Esterase (Negative) Urine WBC (Auto) (0-5) /hpf Urine RBC (Auto) (0-4) /hpf U Hyaline Cast (Auto) (0-5) /lpf U Epithel Cells (Auto) (0-5) /lpf Urine Bacteria (Auto) (Negative) Salicylates < 3.0 L (3.0-30) mg/dl Urine Opiates Screen (Neg) Ur Methadone, Qual (Neg) Acetaminophen < 3 L (10-30) ug/ml Urine Barbiturates (Neg) Ur Phencyclidine (PCP) (Neg) U Amphetamin/Meth Scrn (Neg) MDMA (Ecstasy) Screen (Neg) U Benzodiazepines Scrn (Neg) Ur Cocaine Metabolite (Neg) U Marijuana (THC) Screen (Neg) Ethyl Alcohol mg/dL < 10.0 (<10.0) mg/dl SARS-CoV-2, RNA, NAAT (NEGATIVE) 11/03/22 11/03/22 11/03/22 Range/Units 16:04 16:05 16:15 WBC (4.8-10.8) K/ul RBC (4.70-6.10) M/uL Hgb (14.0-18.0) g/dl Hct (42.0-52.0) % MCV (80.0-100.0) fL MCH (25.0-34.0) pg MCHC (32.0-36.0) g/dL RDW Std Deviation (36.4-46.3) fL RDW Coeff of [place] (11.5-14.5) % Plt Count (130-400) K/uL MPV (9.4-12.4) fL Immature Gran % (Auto) % Neut % (Auto) % Lymph % (Auto) % [place] % (Auto) % Eos % (Auto) % Baso % (Auto) % Neut # (Auto) (1.40-6.50) K/uL Lymph # (Auto) (1.2-3.4) K/uL [place] # (Auto) (0.11-0.59) K/uL Eos # (Auto) (0-0.50) K/uL Baso # (Auto) (0-0.2) K/uL Immature Gran # (Auto) (0.01-0.20) K/uL PT (9.0-12.0) Seconds INR (0.9-1.1) APTT (21.0-31.0) Seconds PTT Ratio Sodium (136-145) mmol/L Potassium (3.5-5.1) mmol/L Chloride (98-107) mmol/L Carbon Dioxide (21-32) mmol/L Anion Gap (3-11) BUN (6-23) mg/dl Creatinine (0.6-1.4) mg/dl Est Cr Clr Drug Dosing ml/min Est GFR ( Amer) ml/min Est GFR (Non-Af Amer) ml/min BUN/Creatinine Ratio (10-20) Glucose (70-99(Fasting)) mg/dl Lactate 1.4 (0.4-2.0) mmol/L Calcium (8.6-10.3) mg/dl Phosphorus 2.7 (2.5-4.9) mg/dl Magnesium (1.7-2.4) mg/dl Total Bilirubin (0.2-1.0) mg/dl AST (13-39) U/L ALT (7-52) U/L Alkaline Phosphatase (34-104) U/L Troponin I High Sens 3.8 (0-20) pg/ml Total Protein (6.0-8.3) gm/dl Albumin (3.4-5.0) gm/dl Globulin (2.5-4.0) gm/dl Albumin/Globulin Ratio (0.9-2) Procalcitonin (0-0.5) ng/ml Urine Color Dark Yellow Urine Appearance Clear (Clear) Urine pH 5.5 (4.5-7.5) Ur Specific [place] 1.037 H (1.000-1.030) Urine Protein 1+ H (Negative) Urine Glucose (UA) Negative (Negative) Urine Ketones 4+ H (Negative) Urine Blood Trace H (Negative) Urine Nitrite Negative (Negative) Urine Bilirubin Negative (Negative) Urine Urobilinogen Negative (Negative) Ur Leukocyte Esterase Negative (Negative) Urine WBC (Auto) 1-5 (0-5) /hpf Urine RBC (Auto) 0-4 (0-4) /hpf U Hyaline Cast (Auto) 0 (0-5) /lpf U Epithel Cells (Auto) 20-30 H (0-5) /lpf Urine Bacteria (Auto) Negative (Negative) Salicylates (3.0-30) mg/dl Urine Opiates Screen (Neg) Ur Methadone, Qual (Neg) Acetaminophen (10-30) ug/ml Urine Barbiturates (Neg) Ur Phencyclidine (PCP) (Neg) U Amphetamin/Meth Scrn (Neg) MDMA (Ecstasy) Screen (Neg) U Benzodiazepines Scrn (Neg) Ur Cocaine Metabolite (Neg) U Marijuana (THC) Screen (Neg) Ethyl Alcohol mg/dL (<10.0) mg/dl SARS-CoV-2, RNA, NAAT (NEGATIVE) 11/03/22 11/03/22 Range/Units 16:15 16:15 WBC (4.8-10.8) K/ul RBC (4.70-6.10) M/uL Hgb (14.0-18.0) g/dl Hct (42.0-52.0) % MCV (80.0-100.0) fL MCH (25.0-34.0) pg MCHC (32.0-36.0) g/dL RDW Std Deviation (36.4-46.3) fL RDW Coeff of [place] (11.5-14.5) % Plt Count (130-400) K/uL MPV (9.4-12.4) fL Immature Gran % (Auto) % Neut % (Auto) % Lymph % (Auto) % [place] % (Auto) % Eos % (Auto) % Baso % (Auto) % Neut # (Auto) (1.40-6.50) K/uL Lymph # (Auto) (1.2-3.4) K/uL [place] # (Auto) (0.11-0.59) K/uL Eos # (Auto) (0-0.50) K/uL Baso # (Auto) (0-0.2) K/uL Immature Gran # (Auto) (0.01-0.20) K/uL PT (9.0-12.0) Seconds INR (0.9-1.1) APTT (21.0-31.0) Seconds PTT Ratio Sodium (136-145) mmol/L Potassium (3.5-5.1) mmol/L Chloride (98-107) mmol/L Carbon Dioxide (21-32) mmol/L Anion Gap (3-11) BUN (6-23) mg/dl Creatinine (0.6-1.4) mg/dl Est Cr Clr Drug Dosing ml/min Est GFR ( Amer) ml/min Est GFR (Non-Af Amer) ml/min BUN/Creatinine Ratio (10-20) Glucose (70-99(Fasting)) mg/dl Lactate (0.4-2.0) mmol/L Calcium (8.6-10.3) mg/dl Phosphorus (2.5-4.9) mg/dl Magnesium (1.7-2.4) mg/dl Total Bilirubin (0.2-1.0) mg/dl AST (13-39) U/L ALT (7-52) U/L Alkaline Phosphatase (34-104) U/L Troponin I High Sens (0-20) pg/ml Total Protein (6.0-8.3) gm/dl Albumin (3.4-5.0) gm/dl Globulin (2.5-4.0) gm/dl Albumin/Globulin Ratio (0.9-2) Procalcitonin (0-0.5) ng/ml Urine Color Urine Appearance (Clear) Urine pH (4.5-7.5) Ur Specific [place] (1.000-1.030) Urine Protein (Negative) Urine Glucose (UA) (Negative) Urine Ketones (Negative) Urine Blood (Negative) Urine Nitrite (Negative) Urine Bilirubin (Negative) Urine Urobilinogen (Negative) Ur Leukocyte Esterase (Negative) Urine WBC (Auto) (0-5) /hpf Urine RBC (Auto) (0-4) /hpf U Hyaline Cast (Auto) (0-5) /lpf U Epithel Cells (Auto) (0-5) /lpf Urine Bacteria (Auto) (Negative) Salicylates (3.0-30) mg/dl Urine Opiates Screen Neg (Neg) Ur Methadone, Qual Neg (Neg) Acetaminophen (10-30) ug/ml Urine Barbiturates Neg (Neg) Ur Phencyclidine (PCP) Neg (Neg) U Amphetamin/Meth Scrn Neg (Neg) MDMA (Ecstasy) Screen Neg (Neg) U Benzodiazepines Scrn Neg (Neg) Ur Cocaine Metabolite Neg (Neg) U Marijuana (THC) Screen Neg (Neg) Ethyl Alcohol mg/dL (<10.0) mg/dl SARS-CoV-2, RNA, NAAT NEGATIVE (NEGATIVE) Administered Medications Ampicillin Sodium/Sulbactam Sodium 3,000 mg/ Sodium Chloride 108 mls @ 200 mls/hr IV Q6H OG; Protocol Stop: 11/10/22 19:44 Last Infusion: 11/03/22 20:42 Dose: 0 mls/hr Documented By: Admin: 11/03/22 20:03 Dose: 200 mls/hr Documented By: PJ Dextrose/Sodium Chloride (D5w And 1/2nss) 1,000 mls @ 100 mls/hr IV .Q10H OG Stop: 11/04/22 04:44 Last Admin: 11/03/22 20:03 Dose: 100 mls/hr Documented By: PJ Polymyxin/Trimethoprim Sulfate (Trimethoprim/Polymyxin B) 2 drops OP QID OG Stop: 12/03/22 20:59 Last Admin: 11/03/22 20:03 Dose: 2 drops Documented By: PJ Discontinued Medications Sodium Chloride (Nss 1000ml) 1,000 mls @ 999 mls/hr IV .Q1H1M ONE Stop: 11/03/22 16:42 Last Infusion: 11/03/22 17:12 Dose: 0 mls/hr Documented By: Admin: 11/03/22 15:56 Dose: 999 mls/hr Documented By: GRECIA Cefepime HCl (Maxipime) 2,000 mg in 20 mls @ 5 mls/min IV NOW STA; Protocol Stop: 11/03/22 15:46 Last Admin: 11/03/22 16:47 Dose: 5 mls/min Documented By: GRECIA Sodium Chloride (Nss 1000ml) 1,000 mls @ 999 mls/hr IV .Q1H1M ONE Stop: 11/03/22 17:49 Last Infusion: 11/03/22 18:17 Dose: 0 mls/hr Documented By: Admin: 11/03/22 17:15 Dose: 999 mls/hr Documented By: SERA Sodium Chloride (Nss 1000ml) 500 mls @ 999 mls/hr IV .Q31M ONE Stop: 11/03/22 17:20 Last Infusion: 11/03/22 17:48 Dose: 0 mls/hr Documented By: Admin: 11/03/22 17:15 Dose: 999 mls/hr Documented By: TW Imaging Data Radiologist's Impression: Chest X-Ray 11/03/22 15:42 XR chest 1V portable CLINICAL HISTORY: Fever. COMPARISON STUDY: Chest radiograph May 18, 2022. FINDINGS: Lung volumes are normal. Minimal left basilar opacity is similar to prior exams and favors atelectasis. There is no pneumothorax or pleural effusi on. Cardiac size is normal. Mediastinal contours are normal. There is no evidence for pulmonary edema. IMPRESSION: 1. No acute cardiopulmonary findings. 2. Mild left basilar opacity, similar to prior study. This favors atelectasis. ACT 112: Negative or not required by law. Electronically signed by: Ed Abrams M.D. 11/03/2022 4:[address] 11/03/22 15:42 CT head/brain wo con CLINICAL HISTORY: altered Technique: Contiguous axial CT images of the head were acquired from the base of the skull to the vertex without intravenous contrast administration. Images were viewed in brain, subdural and bone windows. Automated dose lowering techniques and/or adjustment according to patient size were utilized for this exam. Comparison: Comparison is made to the head 10/30/2022 Findings: The ventricles, basal cisterns, and cerebral sulci are normal. There is no acute intracranial hemorrhage or evidence of acute territorial infarction. Neither mass effect, shift of the midline structures, nor abnormal extra-axial fluid collections are shown. Imaged portions of the paranasal sinuses and mastoid air cells are clear. The orbits appear normal. There are no acute fractures of the calvaria or scalp swelling. Impression: No acute intracranial hemorrhage, no evidence of acute territorial infarction or other acute intracranial disease process. ACT 112: Negative or not required by law. Electronically signed by: Wade Christensen M.D. 11/03/2022 5:19 PM Discharge Plan Visit Data Chief Complaint: Illness ED Provider: Socrates Johnson Discharge Problem: Altered mental status, Pneumonia, Leukocytosis, Acute dehydration Patient Disposition: Admitted As Inpatient Condition: Fair Discharge Instructions Interventions: ED Discharge Assessment Last Done: 11/03/22 18:35
[2022-11-03 16:03] LABS: Albumin Globulin Ratio 1.4 (0.9-2); Albumin Level 4.9 gm/dl (3.4-5.0); BUN Creatinine Ratio 16.2 (10-20); Bilirubin,Total 0.7 mg/dl (0.2-1.0); Calcium 10.2 mg/dl (8.6-10.3); Est GFR (Non-African American) 87.1 ml/min; Globulin 3.4 gm/dl (2.5-4.0); Magnesium 2.3 mg/dl (1.7-2.4); Potassium 4.8 mmol/L (3.5-5.1); Total Protein 8.3 gm/dl (6.0-8.3)
[2022-11-03 16:18] LABS: Acetaminophen < 3 ug/ml (10-30); Salicylate < 3.0 mg/dl (3.0-30)
[2022-11-03 16:25] LABS: INR 1.1 (0.9-1.1); Partial Thromboplastin Ratio 1.8; Prothrombin Time 12.3 Seconds (9.0-12.0)
--- NOTE | 2022-11-03 16:31 | XRay Report ---
XR chest 1V portable CLINICAL HISTORY: Fever. COMPARISON STUDY: Chest radiograph May 18, 2022. FINDINGS: Lung volumes are normal. Minimal left basilar opacity is similar to prior exams and favors atelectasis. There is no pneumothorax or pleural effusion. Cardiac size is normal. Mediastinal contou rs are normal. There is no evidence for pulmonary edema. IMPRESSION: 1. No acute cardiopulmonary findings. 2. Mild left basilar opacity, similar to prior study. This favors atelectasis. ACT 112: Negative or not required by law. Electronically signed by: Ed Abrams M.D. 11/03/2022 4:30 PM
[2022-11-03 16:45] LABS: Appearance Urine Clear (Clear); Bacteria Urine Automated Negative (Negative); Bilirubin Urine Negative (Negative); Blood Urine Trace (Negative); Cast Urine Automated 0 /lpf (0-5); Color Urine Dark Yellow; Epithelial Cell Urine Auto 20-30 /lpf (0-5); Glucose Urine UA Negative (Negative); Ketones Urine 4+ (Negative); Leukocyte Esterase Urine Negative (Negative); Nitrite Urine Negative (Negative); Protein Urine 1+ (Negative); RBC Urine Automated 0-4 /hpf (0-4); Specific Gravity Urine 1.037 (1.000-1.030); Urobilinogen Urine Negative (Negative); pH Urine 5.5 (4.5-7.5)
[2022-11-03 16:47] LABS: Troponin I High Sensitivity 3.8 pg/ml (0-20)
[2022-11-03] MEDS ORDERED: SODIUM CHLORIDE 0.9% 500 ML IV ONE (16:50)
[2022-11-03 17:13] LABS: Partial Thromboplastin Time 49.7 Seconds (21.0-31.0)
[2022-11-03 17:17] LABS: Amphetamines+Metham, Urine Neg (Neg); Barbiturates, Urine Neg (Neg); Benzodiazepine, Urine Neg (Neg); Cocaine, Urine Neg (Neg); MDMA (Ecstacy), Urine Neg (Neg); Methadone, Urine Neg (Neg); Opiate, Urine Neg (Neg); Phencyclidine, Urine Neg (Neg)
--- NOTE | 2022-11-03 17:20 | CT Scan Report ---
CT head/brain wo con CLINICAL HISTORY: altered Technique: Contiguous axial CT images of the head were acquired from the base of the skull to the giuseppe josé miguel without intravenous contrast administration. Images were viewed in brain, subdural and bone [facility]. Automated dose lowering techniques and/or adjustment according to patient size were utilized for this exam. Comparison: Comparison is made to the head 10/30/2022 Findings: The ventricles, basal cisterns, and cerebral sulci are normal. There is no acute intracranial hemorrh age or evidence of acute territorial infarction. Neither mass effect, shift of the midline structures , nor abnormal extra-axial fluid collections are shown. Imaged portions of the paranasal sinuses and mastoid air cells are clear. The orbits appear normal. There are no acute fractures of the calvaria or scalp swelling. Impression: No acute intracranial hemorrhage, no evidence of acute territorial infarction or other acute intracra nial disease process. ACT 112: Negative or not required by law. Electronically signed by: Wade Christensen M.D. 11/03/2022 5:19 PM
--- NOTE | 2022-11-03 17:53 | History & Physical Report ---
Date of Service November 03, 2022 Assessment & Plan (1) Sepsis: (2) Pneumonia: (3) Metabolic acidosis: (4) Acute metabolic acidosis: (5) Schizoaffective disorder: (6) Unable to care for self: Plan This is a 42-year-old male with PMH of schizoaffective disorder, catatonia who presents after being found minimally responsive and covered in feces on a welfare check and was found to have sepsis 2/2 PNA. Sepsis Possible pneumonia/aspiration Found in bed on a welfare check covered in feces, not moving or verbally responsive, brought in and 302 obtained Tachycardic, WBC of 15K, lactate and procal WNL CXR with mild left basilar opacity s/o aspiration pna vs atelectasis Will continue abx coverage with unasyn to cover for aspiration, MRSA swab pending Given 2.5 L NSS in ED for appropriate sepsis fluid resuscitation Due to dehydration and ketotic state, will continue D5 1/2 NSS maintenance fluids for now Acute metabolic encephalopathy History of catatonia Patient appears hypersomnolent and only responsive to pain History of catatonia and mutism complicate assessment of mentation CT head without acute intracranial abnormality, tox screen negative Obtaining ABG to evaluate for CO2 retention Expect some improvement with fluids and abx but appreciate psych input given h/o catatonia Metabolic acidosis Anion gap of 17, carbon dioxide 15. Likely 2/2 starvation ketosis given 4+ ketones in urine, reports of patient lying in bed for 4 days Starting D5W 1/2 NSS, dietitian consult Schizoaffective disorder Holding oral psych meds while hypersomnolent 302 obtained earlier, psych consulted and 1:1 placed for safety Conjunctivitis, assume bacterial Starting tx for assumed bacterial conjunctivitis given purulent discharge from eyes and presentation DVT Ppx: SQ lovenox Code status: FULL PCP: Rob Dispo: Admit to PCU Patient seen in collaboration with Dr. Connelly. Please see addendum. I spent a total of 75 minutes coordinating, documenting, and providing care for this patient excluding time spent in the performance of separately billed services. History of Present Illness Chief Complaint: Minimal responsiveness, found on a welfare check today. Primary Care Provider: NO PCP This is a 42-year-old male with PMH of schizoaffective disorder, catatonia who presents after being found minimally responsive and covered in feces on a wel fare check. Patient presented to ED 2 days ago prompted by his rn case mgr due to unwillingness to get out of bed for 2 days and catatonic appearance. Was evaluated in ED and did not meet criteria for inpatient stay and was sent home. When patient did not show for therapy appointment, a welfare check was ordered and patient's apartment was found to be in disarray with patient covered in bodily fluids. Patient was conscious and breathing but would not respond to any questions or move. Patient initially hypersomnolent with eyes closed but reportedly perked up after 2.5 L of fluids. Still not verbally responsive on exam. Unable to obtain remainder of ROS due to cognitive state. Per chart review and discussion with psych rn case mgr in ED, patient has had admission to . in the past for catatonia and inability to care for self at home. A 302 was obtained. Per outpatient therapistMILAD Cantor ([phone]), patient has exhibited catatonia like episodes in the past when he stops his medications. Allergies Allergy/AdvReac Type Severity Reaction Status Date / Time No Known Allergies Allergy Verified 11/03/22 17:28 Home Medications Medication Instructions Recorded Confirmed Type benztropine 0.5 mg tablet 0.5 mg PO HS 08/14/22 11/03/22 History haloperidol 5 mg tablet 5 mg PO BID 08/14/22 11/03/22 History lamotrigine 25 mg tablet 50 mg PO BID 08/14/22 11/03/22 History venlafaxine 150 mg 150 mg PO QAM 08/14/22 11/03/22 History capsule,extended release 24 hr Past Med/Surg History Medical History Anxiety Avolition Bipolar disorder Bipolar disorder with depression Catatonia Depression Mutism Noncompliance Obesity Psychosis Schizoaffective disorder Surgical History No pertinent past surgical history Family History (Updated 11/03/22 @ 19:24 by Janae Jones PA-C) Other Family history unknown Social History (Updated 11/03/22 @ 19:24 by Janae Jones PA-C) Smoking Status: Current some day smoker Preferred Language: Monegasque Communication Ability: non-verbal Communication Ability Comment: Catatonic like behavior Auto Damage Insurance Appraiser Required: No Beliefs That Will Affect Care: None Current Living Situation: Alone Other Information That Helps Us Care for You: No Feels Safe at Home: Declines to Answer Gender Identity: Male Assistive Devices: Glasses Review of Systems Review of Systems: Unobtainable due to mental health condition Physical Exam Physical Exam: General Appearance: WD/WN, vitals as above, NAD, appears unkempt with matted hear, initially covered in fecal material, appears somnolent, reactive to painful stimuli only Head: normocephalic, atraumatic Eyes: normal inspection, PERRL, unable to assess conjunctiva fully due to holding eyes shut when attempts made to open them but surrounding erythema, purulent crusting on lashes ENT: external ear and nose normal, dry mucous membranes of oropharynx Neck: normal visual inspection, trachea midline, no thyromegaly Respiratory: normal respiratory effort, lungs clear to auscultation, no wheeze, rales, rhonchi. No accessory muscle use Cardiovascular: tachycardic rate, regular rhythm, no murmur, normal peripheral pulses, no BLE edema. Vessels: no JVD Chest: normal inspection of chest Abdomen/GI: normal bowel sounds, soft, nontender, no hepatosplenomegaly Extremities/Musculoskeletal: no cyanosis or clubbing, extremities motor strength 5/5 Neurologic/psych: Holds his eyes closed, moves only to painful stimuli.Does not answer any questions Skin: no rashes, normal color, warm/dry, excoriated area near groin but no open wounds visualized Results & Data Results & Data Vital Signs (Past 12 Hours) Vital Signs Temp Pulse Pulse Resp BP BP Pulse Ox 11/03/22 17:13 109 H 20 132/97 98 11/03/22 14:51 118 H 11/03/22 14:48 37.6 C H 101 H 20 160/90 H 98 O2 Del Method 11/03/22 17:13 Room Air 11/03/22 14:51 11/03/22 14:48 Room Air Laboratory Results Short CBC 11/03/22 Range/Units 14:55 WBC 15.41 H (4.8-10.8) K/ul Hgb 18.4 H (14.0-18.0) g/dl Hct 51.6 (42.0-52.0) % Plt Count 330 (130-400) K/uL BMP 11/03/22 14:55 Sodium 139 Potassium 4.8 Chloride 107 Carbon Dioxide 15 L BUN 17 Creatinine 1.05 Glucose 86 Calcium 10.2 Liver Function 11/03/22 Range/Units 14:55 Total Bilirubin 0.7 (0.2-1.0) mg/dl AST 18 (13-39) U/L ALT 12 (7-52) U/L Alkaline Phosphatase 125 H (34-104) U/L Albumin 4.9 (3.4-5.0) gm/dl Urine 11/03/22 Range/Units 16:15 Urine Color Dark Yellow Urine Appearance Clear (Clear) Urine pH 5.5 (4.5-7.5) Ur Specific [place] 1.037 H (1.000-1.030) Urine Protein 1+ H (Negative) Urine Glucose (UA) Negative (Negative) Diagnostic Findings Chest X-Ray 11/03/22 15:42 XR chest 1V portable CLINICAL HISTORY: Fever. COMPARISON STUDY: Chest radiograph May 18, 2022. FINDINGS: Lung volumes are normal. Minimal left basilar opacity is similar to prior exams and favors atelectasis. There is no pneumothorax or pleural effusion. Cardiac size is normal. Mediastinal contours are normal. There is no evidence for pulmonary edema. IMPRESSION: 1. No acute cardiopulmonary findings. 2. Mild left basilar opacity, similar to prior study. This favors atelectasis. ACT 112: Negative or not required by law. Electronically signed by: Ed Abrams M.D. 11/03/2022 4:[address] 11/03/22 15:42 CT head/brain wo con CLINICAL HISTORY: altered Technique: Contiguous axial CT images of the head were acquired from the base of the skull to the vertex without intravenous contrast administration. Images were viewed in brain, subdural and bone windows. Automated dose lowering techniques and/or adjustment according to patient size were utilized for this exam. Comparison: Comparison is made to the head 10/30/2022 Findings: The ventricles, basal cisterns, and cerebral sulci are normal. There is no acute intracranial hemorrhage or evidence of acute territorial infarction. Neither mass effect, shift of the midline structures, nor abnormal extra-axial fluid collections are shown. Imaged portions of the paranasal sinuses and mastoid air cells are clear. The orbits appear normal. There are no acute fractures of the calvaria or scalp swelling. Impression: No acute intracranial hemorrhage, no evidence of acute territorial infarction or other acute intracranial disease process. ACT 112: Negative or not required by law. Electronically signed by: Wade Christensen M.D. 11/03/2022 5:19 PM Supervising Physician Co-Signing Physician Notes I have seen and examined the patient and have discussed the case with the provider above. I agree with the assessment and plan as stated. 42 yo M with known history of schizoaffective disorder and patterned periods of unresponsiveness similar to catatonia presents after being found unresponsive and covered wtih feces in his apartment during a wellness check. The patient has a variety of social obstacles and per his therapist, will likely need state hospitalization ultimately. He is currently being treated for pneumonia, with suspected aspiration per workup today in the ER. Sepsis has been treated and he appears appropriately resuscitated. He is not able to open his eyes or speak with me so history is limited aside from records review. He is resting supine with eyes closed and he resists me opening them for evaluation. WNWD, crusting to the right eye present. Skin is warm and dry. He appears to be moving his lips and gritting teeth somewhat. He appears different than someone who is obtunded. CV and pulm exams unremarkable. Fingernails with dirt/feces underneath unkempt nails. Could not elicit patellar DTRs but there is some resistance to me passive moving his limbs giving the impression there is no neuro deficit here. Sensation could not be assessed. 1. sepsis 2/2 pneumonia 2. Starvation ketoacidosis, metabolic with respiratory alkalosis 3. Schizoaffective disorder with history of unresponsiveness 4. possible diarrhea Agree with treatment plan including broad spectrum antibiotics with consideration for possible aspiration pneumonia. MRSA swab was negative. He was found covered in feces, so monitor for any diarrhea and consider stool studies if present. Patient appears to have a starvation ketosis and it is unclear how long he was immobilized and unresponsive in his home. He is clearly unable to care for himself. He also has a respiratory alkalosis 2/2 increased respiratory rate, which is improving after fluid administration this evening. Toxic panel was negative as was salicylate level and tylenol level and EtOH. Given his unresponsive state, will also ensure there is no osm gap that might suggest isopropyl alcohol poisoning. Calculated osmolality is 288. Measured osmolality is .......Godwin, DO
[2022-11-03] MEDS ORDERED: D5W AND 1/2NSS 1,000 ML IV SCH (18:45)
[2022-11-03] MEDS ORDERED: ACETAMINOPHEN 325 MG TAB PO PRN (18:57)
[2022-11-03] MEDS ORDERED: ONDANSETRON INJ 2 MG/ML 2 ML VIAL IV PRN (18:57)
[2022-11-03] MEDS ORDERED: POLYETHYLENE (MIRALAX) 17 GM PACK PO PRN (18:57)
[2022-11-03 19:17] LABS: Phosphorus 2.7 mg/dl (2.5-4.9)
[2022-11-03 19:43] LABS: Base Excess ABG -13.5 mEq/L (-9-1.8); HCO3 ABG 11 mmol/L (19-24); Oxygen Saturation ABG 98.2 % (90-95); PCO2 ABG 22 mmHg (35-46); PO2 ABG 87 mmHg (80-95)
[2022-11-03 19:46] LABS: Allen Test Pos (Pos)
[2022-11-03] MEDS: TRIMETHOPRIM/POLYMYXIN B OP SCH (20:03)
[2022-11-03] MEDS: AMPICILLIN/SULBACTAM SOD 3,000 MG in 0.9 % SODIUM CHLORIDE 100 ML IV SCH (20:03)
[2022-11-04 01:10] LABS: Potassium Random Urine 90.1 mmol/L
[2022-11-04] MEDS: AMPICILLIN/SULBACTAM SOD 3,000 MG in 0.9 % SODIUM CHLORIDE 100 ML IV SCH ×3 (01:49→14:17)
[2022-11-04] MEDS ORDERED: D5W AND LACTATED RINGERS 1,000 ML IV SCH (05:00)
[2022-11-04 06:02] LABS: Hematocrit (blood only) 43.5 % (42.0-52.0); Hemoglobin 15.4 g/dl (14.0-18.0); Mean Corpuscular Hemoglobin 30.9 pg (25.0-34.0); Mean Corpuscular Hgb Conc 35.4 g/dL (32.0-36.0); Mean Corpuscular Volume 87.2 fL (80.0-100.0); Mean Platelet Volume 10.1 fL (9.4-12.4); Platelet Count 243 K/uL (130-400); RDW Coefficient of Variation 12.7 % (11.5-14.5); RDW Standard Deviation 40.1 fL (36.4-46.3); Red Blood Count 4.99 M/uL (4.70-6.10); White Blood Count 12.65 K/ul (4.8-10.8)
[2022-11-04 06:10] LABS: Calcium 8.6 mg/dl (8.6-10.3); Creatinine Clr Calc Pharmacy 136.4 ml/min; Potassium 3.6 mmol/L (3.5-5.1)
[2022-11-04] MEDS ORDERED: DEXTROSE 10% 1,000 ML IV SCH (09:00)
[2022-11-04] MEDS: TRIMETHOPRIM/POLYMYXIN B OP SCH ×4 (10:23→22:52)
--- NOTE | 2022-11-04 10:50 | Electrocardiogram Report ---
Test Reason : Blood Pressure : / mmHG Vent. Rate : 111 BPM Atrial Rate : 111 BPM P-R Int : 122 ms QRS Dur : 086 ms QT Int : 350 ms P-R-T Axes : 050 098 -06 degrees QTc Int : 476 ms Sinus tachycardia Rightward axis Nonspecific T wave abnormality Inferior leads Abnormal ECG When compared with ECG of 15-AUG-2022 02:05, Vent. rate has increased BY 47 BPM Nonspecific T wave abnormality Inferior leads more pronounced Confirmed by Angel Horowitz ([id number]) on 11/04/2022 10:50:35 AM Referred By: Confirmed By:Agnel Horowitz
--- NOTE | 2022-11-04 11:17 | Psychiatric Consultation ---
Date of Consultation November 04, 2022 Impression / Recommendations Impression David Diaz is a 42 yo man with a history of schizoaffective disorder admitted medically for severe decompensation with malnutrition and inability to care for himself most likely due to acute exacerbation of his schizoaffective disorder with current episode of severe neurovegetative depression. Catatonia remains on the differential but is less likely given volitional component to much of his detachment and withdrawn state. However, given currrent IV access will start ativan in case catatonia is present. For psychiatric hospitalization he will need to be eating and drinking and showing medical stability. His current 302 is invalid as no time was provided at time of warrant issue. Will work to clarify if he is on any current outpatient psychiatric commitments (chart review notable for possible outpatient 304 commitment). (1) Schizoaffective disorder, chronic condition with acute exacerbation: (2) MDD (major depressive disorder), recurrent episode, severe: (3) Unable to care for self: Plan -Can discontinue 1-on-1 given 302 is invalid -Cannot leave AMA, if he attempts to do so please call security and psych liason as he would meet criteria for new involuntary commitment -Previous 302 is invalid given no time stamp at time of warrant issue -Will clarify any outpatient psychiatric commitments with his CM, given importance for safety and continuity of care as he is unable to provide details or sign SHERRON in his current state -He will need to be eating and drinking before referral process can begin for inpatient psychiatric bed search -Will start ativan 1mg TID IV -Discussed with Dr. Claire Psych History Identifying Data David Diaz is a 42 yo man with a history of schizoaffective disorder admitted medically for severe decompensation with malnutrition, sepsis and metabolic acidosis. Psychiatry was consulted for recommendations given his psychiatric symptoms and 302 commitment. Chief Complaint mute History of Present Illness David is well known to our service due to his prolonged inpatient psychiatric admission on the [facility] in 2020. He was brought to the ED by police on a 302 warrant under similar circumstances to his previous inpatient psychiatric admission for worsening depression resulting in severe neurovegetative state with lack of po intake, lack of self-care (not using the toilet or cleaning up after himself), and not speaking. As noted by hospitalist providers his presentation certainly appears catatonic-like especially given periods of facial grimacing, withdrawal and mutism; however, during his previous extended psychiatric admission he presented with identical symptoms and ultimately showed no response to repeated ativan doses over time and just like last night with the hospitalist provider he showed symptoms at times in opposition with catatonia such as volitionally shutting his eyes when attempts were made to examine them and actively resisting during neurologic testing. Today he remains lying in bed, IV in place, mute, with eyes closed. He will not respond to my attempt to interact with him. Allergies Allergy/AdvReac Type Severity Reaction Status Date / Time No Known Allergies Allergy Verified 11/03/22 17:28 Home Medications Medication Instructions Recorded Confirmed Type benztropine 0.5 mg tablet 0.5 mg PO HS 08/14/22 11/03/22 History haloperidol 5 mg tablet 5 mg PO BID 08/14/22 11/03/22 History lamotrigine 25 mg tablet 50 mg PO BID 08/14/22 11/03/22 History venlafaxine 150 mg 150 mg PO QAM 08/14/22 11/03/22 History capsule,extended release 24 hr Patient History Medical History Anxiety Avolition Bipolar disorder Bipolar disorder with depression Catatonia Depression Mutism Noncompliance Obesity Psychosis Schizoaffective disorder Surgical History No pertinent past surgical history Family History Other Family history unknown Social History Smoking Status: Current some day smoker Preferred Language: Ukrainian Communication Ability: Unable Communication Ability Comment: Catatonic like behavior Health And Safety Coordinator Required: No Beliefs That Will Affect Care: None Current Living Situation: Alone Other Information That Helps Us Care for You: No Feels Safe at Home: Declines to Answer Gender Identity: Male Assistive Devices: None Physical Exam Psychiatric: Orientation: alert; + uncooperative Apperance: + disheveled Eye Contact: + poor eye contact Motor Behavior: + psychomotor retardation Speech: + mute Affect: + flat affect Cognition: + attention not intact Estimated Intelligence: consistent with education level Insight: + severely impaired insight Judgment: + severely impaired judgement Vital Signs (Past 24 Hours): Last Vital Signs Temp 36.7 C 11/04/22 07:29 Pulse 111 H 11/04/22 08:12 Resp 16 11/04/22 07:29 BP 124/84 11/04/22 07:29 Pulse Ox 96 11/04/22 07:29 O2 Del Method Room Air 11/04/22 07:29 Review of Systems Unobtainable due to mental health condition Results & Data (PSY) Medications Administered Ampicillin Sodium/Sulbactam Sodium 3,000 mg/ Sodium Chloride 108 mls @ 200 mls/hr IV Q6H OG; Protocol Stop: 11/10/22 19:44 Last Infusion: 11/04/22 10:08 Dose: 0 mls/hr Documented By: Admin: 11/04/22 09:00 Dose: 200 mls/hr Documented By: Infusion: 11/04/22 02:29 Dose: 0 mls/hr Documented By: Admin: 11/04/22 01:49 Dose: 200 mls/hr Documented By: Infusion: 11/03/22 20:42 Dose: 0 mls/hr Documented By: Admin: 11/03/22 20:03 Dose: 200 mls/hr Documented By: PJ Dextrose (D10w) 1,000 mls @ 30 mls/hr IV .Q24H [facility] Stop: 12/04/22 08:59 Last Admin: 11/04/22 10:23 Dose: 30 mls/hr Documented By: IRMA Polymyxin/Trimethoprim Sulfate (Trimethoprim/Polymyxin B) 2 drops OP QID OG Stop: 12/03/22 20:59 Last Admin: 11/04/22 10:23 Dose: 2 drops Documented By: Admin: 11/03/22 20:03 Dose: 2 drops Documented By: PJ Coding Level of Care Code 74510 IN/OBS CONSULT LVL 4,60M Diagnoses Schizoaffective disorder, chronic condition with acute exacerbation F25.9 MDD (major depressive disorder), recurrent episode, severe F33.2 Unable to care for self Z78.9 Time Spent (min) 65
[2022-11-04] MEDS: LORazepam 2 MG/1 ML VIAL IV SCH ×2 (14:13→22:53)
--- NOTE | 2022-11-04 14:40 | Hospitalist Progress Note ---
Date of Service November 04, 2022 Assessment & Plan (1) Schizoaffective disorder: (2) Unable to care for self: (3) Starvation ketoacidosis: Plan This is a 42-year-old male with PMH of schizoaffective disorder, catatonia who presents after being found minimally responsive and covered in feces on a welfare check. He was brought to the hospital. Found to have starvation ketosis. Found to have starvation ketosis with anion gap metabolic acidosis Schizoaffective disorder with catatonia Patient was admitted for 5 months from 02/2021 to 06/2021 in psychiatric unit here in the hospital. Had neurology evaluation including MRI brain which was normal. Current presentation similar as well. Patient appears hypersomnolent and only responsive to pain CT head without acute intracranial abnormality, tox screen negative Discussed with psychiatry; the current presentation consistent with she is affective disorder with catatonia. Started on Ativan 1 mg 3 times daily IV. Psychiatry to follow response and round on the patient daily while inpatient. Metabolic acidosis likely due to starvation ketosis Pneumonia/sepsis rule out Found to have anion gap metabolic acidosis. Urine ketones positive. Resuscitated with IV normal saline resulting in normal anion gap metabolic acidosis. Started on D10 to prevent hypoglycemia at 30 cc/h Stop antibiotic. Pro-Yunior is negative. Chest x-ray similar to last admission. Leukocytosis likely due to hemoconcentration/stress-induced Repeat CBC and BMP tomorrow a.m. to ensure resolution of acidosis/leukocytosis. Will consider antibiotics if patient is febrile, or any other source of infecti on is identified. Conjunctivitis, assume bacterial Starting tx for assumed bacterial conjunctivitis given purulent discharge from eyes and presentation DVT Ppx: SQ lovenox Code status: FULL PCP: Rob Dispo: Transfer to medical floor Time spent evaluating patient, direct bedside care, chart review, placing orders, interpretation of diagnostic studies, discussion with consultants, patient, and family members, as well as other required patient management activities is 60 minutes. Please note the above document was generated using voice recognition software. It may contain grammatical, syntax or spelling errors. Any formal questions or concerns about the content, text or information contained within the body of this dictation should be directly addressed to the provider for clarification Admission and Anticipated Discharge Date Admission Date: November 03, 2022 Subjective Patient seen and examined at bedside. He is lying in the bed. Withdraws to pain. Review of Systems Review of Systems: Unobtainable due to reduced consciousness Physical Exam Physical Exam: General Appearance: Lying on the bed comfortably. No response to verbal stimuli. Withdraws to pain. Respiratory: normal respiratory effort, lungs clear to auscultation, no wheeze, rales, rhonchi. No accessory muscle use Cardiovascular: tachycardic rate, regular rhythm, no murmur, normal peripheral pulses, no BLE edema. Vessels: no JVD Chest: normal inspection of chest Abdomen/GI: normal bowel sounds, soft, nontender, no hepatosplenomegaly Extremities/Musculoskeletal: no cyanosis or clubbing, extremities motor strength 5/5 Neurologic/psych: Holds his eyes closed, moves only to painful stimuli.Does not answer any questions Skin: no rashes, normal color, warm/dry, excoriated area near groin but no open wounds visualized Results & Data Results & Data Vital Signs (Past 12 Hours) Vital Signs Temp Pulse Pulse Resp BP Pulse Ox O2 Del Method 11/04/22 11:49 37.2 C 105 H 16 131/82 98 Room Air 11/04/22 11:17 Room Air 11/04/22 10:55 Room Air 11/04/22 08:12 111 H 11/04/22 07:29 36.7 C 108 H 16 124/84 96 Room Air 11/04/22 04:00 36.6 C 120 H 18 136/81 96 Room Air Laboratory Results Laboratory Results WBC 12.65 K/ul (4.8-10.8) H 11/04/22 05:28 RBC 4.99 M/uL (4.70-6.10) 11/04/22 05:28 Hgb 15.4 g/dl (14.0-18.0) D 11/04/22 05:28 Hct 43.5 % (42.0-52.0) 11/04/22 05:28 MCV 87.2 fL (80.0-100.0) 11/04/22 05:28 MCH 30.9 pg (25.0-34.0) 11/04/22 05:28 MCHC 35.4 g/dL (32.0-36.0) 11/04/22 05:28 RDW Std Deviation 40.1 fL (36.4-46.3) 11/04/22 05:28 RDW Coeff of Sidney 12.7 % (11.5-14.5) 11/04/22 05:28 Plt Count 243 K/uL (130-400) 11/04/22 05:28 MPV 10.1 fL (9.4-12.4) 11/04/22 05:28 Immature Gran % (Auto) 1.2 % 11/03/22 14:55 Neut % (Auto) 77.8 % 11/03/22 14:55 Lymph % (Auto) 12.7 % 11/03/22 14:55 Gage % (Auto) 7.0 % 11/03/22 14:55 Eos % (Auto) 0.7 % 11/03/22 14:55 Baso % (Auto) 0.6 % 11/03/22 14:55 Neut # (Auto) 11.98 K/uL (1.40-6.50) H 11/03/22 14:55 Lymph # (Auto) 1.96 K/uL (1.2-3.4) 11/03/22 14:55 Gage # (Auto) 1.08 K/uL (0.11-0.59) H 11/03/22 14:55 Eos # (Auto) 0.11 K/uL (0-0.50) 11/03/22 14:55 Baso # (Auto) 0.09 K/uL (0-0.2) 11/03/22 14:55 Immature Gran # (Auto) 0.19 K/uL (0.01-0.20) 11/03/22 14:55 PT 12.3 Seconds (9.0-12.0) H 11/03/22 14:55 INR 1.1 (0.9-1.1) 11/03/22 14:55 APTT 49.7 Seconds (21.0-31.0) H* 11/03/22 14:55 PTT Ratio 1.8 11/03/22 14:55 ABG pH 7.30 (7.35-7.45) L 11/03/22 19:28 ABG pCO2 22 mmHg (35-46) L 11/03/22 19: ABG pO2 87 mmHg (80-95) 11/03/22 19: ABG HCO3 11 mmol/L (19-24) L 11/03/22 19:28 ABG O2 Saturation 98.2 % (90-95) H 11/03/22 19:28 ABG Base Excess -13.5 mEq/L (-9-1.8) L 11/03/22 19:28 Chilo Test Pos (Pos) 11/03/22 19:28 Oxygen Given ROOM AIR 11/03/22 19:28 Sodium 139 mmol/L (136-145) 11/04/22 05:28 Potassium 3.6 mmol/L (3.5-5.1) D 11/04/22 05:28 Chloride 113 mmol/L (98-107) H 11/04/22 05:28 Carbon Dioxide 15 mmol/L (21-32) L 11/04/22 05:28 Anion Gap 11 (3-11) 11/04/22 05:28 BUN 12 mg/dl (6-23) 11/04/22 05:28 Creatinine 0.86 mg/dl (0.6-1.4) 11/04/22 05:28 Est Cr Clr Drug Dosing 136.4 ml/min 11/04/22 05:28 Est GFR ( Amer) 124.0 ml/min 11/04/22 05:28 Est GFR (Non-Af Amer) 107.0 ml/min 11/04/22 05:28 BUN/Creatinine Ratio 14.0 (10-20) 11/04/22 05:28 Glucose 117 mg/dl (70-99(Fasting)) H 11/04/22 05:28 Osmolality 305 mOsm/kg (280-300) H 11/03/22 14:55 Lactate 1.4 mmol/L (0.4-2.0) 11/03/22 16:04 Calcium 8.6 mg/dl (8.6-10.3) 11/04/22 05:28 Phosphorus 2.7 mg/dl (2.5-4.9) 11/03/22 16:05 Magnesium 2.3 mg/dl (1.7-2.4) 11/03/22 14:55 Total Bilirubin 0.7 mg/dl (0.2-1.0) 11/03/22 14:55 AST 18 U/L (13-39) 11/03/22 14:55 ALT 12 U/L (7-52) 11/03/22 14:55 Alkaline Phosphatase 125 U/L (34-104) H 11/03/22 14:55 Troponin I High Sens 3.8 pg/ml (0-20) 11/03/22 16:05 Total Protein 8.3 gm/dl (6.0-8.3) 11/03/22 14:55 Albumin 4.9 gm/dl (3.4-5.0) 11/03/22 14:55 Globulin 3.4 gm/dl (2.5-4.0) 11/03/22 14:55 Albumin/Globulin Ratio 1.4 (0.9-2) 11/03/22 14:55 Procalcitonin 0.07 ng/ml (0-0.5) 11/03/22 14:55 Urine Color Dark Yellow 11/03/22 16:15 Urine Appearance Clear (Clear) 11/03/22 16:15 Urine pH 5.5 (4.5-7.5) 11/03/22 16:15 Ur Specific Hawthorn 1.037 (1.000-1.030) H 11/03/22 16:15 Urine Protein 1+ (Negative) H 11/03/22 16:15 Urine Glucose (UA) Negative (Negative) 11/03/22 16:15 Urine Ketones 4+ (Negative) H 11/03/22 16:15 Urine Blood Trace (Negative) H 11/03/22 16:15 Urine Nitrite Negative (Negative) 11/03/22 16:15 Urine Bilirubin Negative (Negative) 11/03/22 16:15 Urine Urobilinogen Negative (Negative) 11/03/22 16:15 Ur Leukocyte Esterase Negative (Negative) 11/03/22 16:15 Urine WBC (Auto) 1-5 /hpf (0-5) 11/03/22 16:15 Urine RBC (Auto) 0-4 /hpf (0-4) 11/03/22 16:15 U Hyaline Cast (Auto) 0 /lpf (0-5) 11/03/22 16:15 U Epithel Cells (Auto) 20-30 /lpf (0-5) H 11/03/22 16:15 Urine Bacteria (Auto) Negative (Negative) 11/03/22 16:15 Ur Random Sodium 152 mmol/L 11/03/22 00:56 Ur Random Potassium 90.1 mmol/L 11/03/22 00:56 Ur Random Chloride 211 mmol/L 11/03/22 00:56 Nasal Screen MRSA (PCR) Negative (Negative) 11/03/22 19:32 Salicylates < 3.0 mg/dl (3.0-30) L 11/03/22 14:55 Urine Opiates Screen Neg (Neg) 11/03/22 16:15 Ur Methadone, Qual Neg (Neg) 11/03/22 16:15 Acetaminophen < 3 ug/ml (10-30) L 11/03/22 14:55 Urine Barbiturates Neg (Neg) 11/03/22 16:15 Ur Phencyclidine (PCP) Neg (Neg) 11/03/22 16:15 U Amphetamin/Meth Scrn Neg (Neg) 11/03/22 16:15 MDMA (Ecstasy) Screen Neg (Neg) 11/03/22 16:15 U Benzodiazepines Scrn Neg (Neg) 11/03/22 16:15 Ur Cocaine Metabolite Neg (Neg) 11/03/22 16:15 U Marijuana (THC) Screen Neg (Neg) 11/03/22 16:15 Ethyl Alcohol mg/dL < 10.0 mg/dl (<10.0) 11/03/22 14:55 SARS-CoV-2, RNA, NAAT NEGATIVE (NEGATIVE) 11/03/22 16:15 Impressions Chest X-Ray 11/03/22 15:42 XR chest 1V portable CLINICAL HISTORY: Fever. COMPARISON STUDY: Chest radiograph May 18, 2022. FINDINGS: Lung volumes are normal. Minimal left basilar opacity is similar to prior exams and favors atelectasis. There is no pneumothorax or pleural effusion. Cardiac size is normal. Mediastinal contours are normal. There is no evidence for pulmonary edema. IMPRESSION: 1. No acute cardiopulmonary findings. 2. Mild left basilar opacity, similar to prior study. This favors atelectasis. ACT 112: Negative or not required by law. Electronically signed by: Ed Abrams M.D. 11/03/2022 4:[address] 11/03/22 15:42 CT head/brain wo con CLINICAL HISTORY: altered Technique: Contiguous axial CT images of the head were acquired from the base of the skull to the vertex without intravenous contrast administration. Images were viewed in brain, subdural and bone windows. Automated dose lowering techniques and/or adjustment according to patient size were utilized for this exam. Comparison: Comparison is made to the head 10/30/2022 Findings: The ventricles, basal cisterns, and cerebral sulci are normal. There is no acute intracranial hemorrhage or evidence of acute territorial infarction. Neither mass effect, shift of the midline structures, nor abnormal extra-axial fluid collections are shown. Imaged portions of the paranasal sinuses and mastoid air cells are clear. The orbits appear normal. There are no acute fractures of the calvaria or scalp swelling. Impression: No acute intracranial hemorrhage, no evidence of acute territorial infarction or other acute intracranial disease process. ACT 112: Negative or not required by law. Electronically signed by: Wade Christensen M.D. 11/03/2022 5:19 PM
[2022-11-04 14:54] LABS: A calco-baum cmplx NotReported Not Detected (NotDetected); Bact fragilis Not Reported Not Detected (NotDetected); C auris Not Reported Not Detected (NotDetected); Calbicans Not Reported Not Detected (NotDetected); Candida glabrata Not Reported Not Detected (NotDetected); Candida krusei Not Reported Not Detected (NotDetected); Cneoformans/gatti Not Reported Not Detected (NotDetected); Cparapsilosis Not Reported Not Detected (NotDetected); Ctropicalis Not Reported Not Detected (NotDetected); E cloacae compx Not Reported Not Detected (NotDetected); Efaecalis Not Reported Not Detected (NotDetected); Efaecium Not Reported Not Detected (NotDetected); Enterobacterales Not Reported Not Detected (NotDetected); Escherichia coli Not Reported Not Detected (NotDetected); H influenzae Not Reported Not Detected (NotDetected); K aerogenes Not Reported Not Detected (NotDetected); Koxytoca Not Reported Not Detected (NotDetected); Kpneumoniae grp Not Reported Not Detected (NotDetected); Lmonocyt Not Reported Not Detected (NotDetected); N meningitidis Not Reported Not Detected (NotDetected); P aeruginosa Not Reported Not Detected (NotDetected); Proteus spp Not Reported Not Detected (NotDetected); Salmonella spp Not Reported Not Detected (NotDetected); Smarcescens Not Reported Not Detected (NotDetected); Staph lugdunensis Not Reported Not Detected (NotDetected); Staph spp. Not Reported DETECTED (NotDetected); Staphaureus Not Reported Not Detected (NotDetected); Staphepi Not Reported Not Detected (NotDetected); Stenmaltophilia Not Reported Not Detected (NotDetected); Strep agal(GrpB) Not Reported Not Detected (NotDetected); Strep pneum Not Reported Not Detected (NotDetected); Strep pyog (GrpA) Not Reported Not Detected (NotDetected); Strep spp Not Reported Not Detected (NotDetected)
[2022-11-04 14:59] LABS: Staphylococcus spp. DETECTED (NotDetected)
[2022-11-04] MEDS: cefTRIAXone SODIUM 2,000 MG in DEXTROSE 5% 50 ML IV SCH (15:48)
[2022-11-05] MEDS ORDERED: VANCOMYCIN CONSULT ACTIVE PRN ×2 (05:43)
--- NOTE | 2022-11-05 05:43 | Communication Note ---
Date of Service: November 05, 2022 Made aware by RN of second bottle of blood cultures growing gram-positive cocci in clusters. AP Gram-positive bacteremia 2 bottles IV vancomycin
[2022-11-05] MEDS: VANCOMYCIN HCL 2,500 MG in SODIUM CHLORIDE 0.9% 500 ML IV ONE ×2 (06:15→09:07)
[2022-11-05] MEDS: LORazepam 2 MG/1 ML VIAL IV SCH ×3 (08:11→20:01)
[2022-11-05] MEDS: TRIMETHOPRIM/POLYMYXIN B OP SCH ×5 (08:17→20:00)
[2022-11-05 10:13] LABS: Hematocrit (blood only) 40.6 % (42.0-52.0); Hemoglobin 14.5 g/dl (14.0-18.0); Mean Corpuscular Hemoglobin 31.1 pg (25.0-34.0); Mean Corpuscular Hgb Conc 35.7 g/dL (32.0-36.0); Mean Corpuscular Volume 87.1 fL (80.0-100.0); Mean Platelet Volume 10.3 fL (9.4-12.4); Platelet Count 220 K/uL (130-400); RDW Coefficient of Variation 12.6 % (11.5-14.5); RDW Standard Deviation 39.7 fL (36.4-46.3); Red Blood Count 4.66 M/uL (4.70-6.10); White Blood Count 7.91 K/ul (4.8-10.8)
[2022-11-05 10:33] LABS: BUN Creatinine Ratio 8.9 (10-20); Calcium 8.7 mg/dl (8.6-10.3); Creatinine Clr Calc Pharmacy 146.3 ml/min; Est GFR (African American) 128.4 ml/min; Est GFR (Non-African American) 110.8 ml/min; Magnesium 1.7 mg/dl (1.7-2.4); Phosphorus 2.5 mg/dl (2.5-4.9); Potassium 3.1 mmol/L (3.5-5.1)
[2022-11-05 10:55] LABS: Vitamin D, 25 Hydrox 11.8 ng/ml (30-100)
[2022-11-05] MEDS ORDERED: POTASSIUM CHLORIDE CRTAB 20 MEQ TABCR PO STA (11:27)
--- NOTE | 2022-11-05 13:00 | Psychiatric Progress Note ---
Date of Service November 05, 2022 Impression / Recommendations Impression David Diaz is a 42 yo man with a history of schizoaffective disorder admitted medically for severe decompensation with malnutrition and inability to care for himself most likely due to acute exacerbation of his schizoaffective disorder with current episode of severe neurovegetative depression with evidence of paranoia. On an outpatient 304 commitment that expires 12/09/2022. 11/05/2022: Similar to his prior hospitalization on [facility] in 2020 the question of catatonia remains murky given that he showed a fairly dramatic response to IV ativan yesterday including suddenly talking with RNs and began eating and drink ing but then today reverted back to some more neurovegetative but clearly volitionally withdrawn behaviors such as covering himself with a blanket and refusing to talk and pulling his arm when RN attempted to give him IV antibiotic. However, given yesterday's positive response and his agreement with continuing ativan will continue with this for now. Encouragingly he is talking today and participated in an interview and has been eating, drinking and independently using the bathroom. Does have some paranoia. He consents to starting Effexor XR for depression, which he was taking while at the [facility] in September, and starting risperidone as he declines restarting haldol (which was also used with some success in September while he was at the [facility]). Focused on wanting to go home but concerns remain about his ability to care for himself given state he was brought to the hospital in so will continue to monitor his po intake, bathroom use, and behavioral organization. In discussing the antibiotic he raises concerns that it will also kill useful bacteria and thus why he refused. Attempted to provide some education about the importance of antibiotic use with positive blood cultures and likely option for addition of a probiotic. He agreed to discuss this further with the hospitalist. For now seems to be showing decision making around his refusal however unclear how much he was educated on risks of ongoing refusal and if this would be life threatening then decision making capacity would need to be re-evaluated as he would need to be able to speak to those risks. (1) Schizoaffective disorder, chronic condition with acute exacerbation: (2) MDD (major depressive disorder), recurrent episode, severe: (3) Unable to care for self: Plan -Cannot leave AMA, if he attempts to do so please call security and psych liason as he would meet criteria for new involuntary commitment -Continue ativan 1mg TID IV for now -He consents to restarting Effexor 150mg qd for depression and agrees to trial of risperidone 0.5mg BID for schizophrenia Interval History Identifying Information David Diaz is a 42 yo man with a history of schizoaffective disorder admitted medically for severe decompensation with malnutrition, sepsis and metabolic acidosis. Psychiatry was consulted for recommendations given his psychiatric symptoms and 302 commitment. Chief Complaint "I want to go home". Review of Systems Notes ate dinner last night. ate all his breakfast. drinking liquids. Subjective Subjective Patient was seen & assessed and interval progress reviewed. Fairly dramatic response to IV ativan dose yesterday, started to talk and eat. This morning was pulling blanket over himself and refused IV antibiotics but agreed to IV ativan. Told his nurse he wants to go home. On my arrival in his room he had the blanket pulled over his head but lowered it when I asked him to and opened his eyes to speak with me. Discussed my concerns about his lack of self-care prior to admission. He vaguely states this was due to "factors people don't care about" and his outpatient team lying about how ill he has been. Does endorse feeling depressed but feels there are also "other things going on" that he eventually elaborates are his desire to move somewhere where he is around other people "who think like me" and wants to have more assistance with cooking, etc. Denies SI and denies that he refused vancomycin due to this. States he refused the antibiotic because he feels the medical doctors may be lying about his need for it and that he doesn't want the antibiotic to kill other things in him like his good bacteria. States he has been eating, drinking and using the bathroom and encouraged him to continue with this. Discussed briefly stressor of his divorce and not being able to see his daughter as contributing to his depression. Stated that due to his mental health diagnoses he was not awarded any type of custody by the courts. Confirms he's felt lonely. Physical Exam Psychiatric Orientation: alert, oriented to person and oriented to place Apperance: appropriately dressed and appropriately groomed Eye Contact: + fair eye contact Motor Behavior: no abnormal motor movements Speech: normal rate/rhythm/volume of speech Affect: + flat affect Mood: + irritable mood Thought Process: + circumstantial thought process and + looseness of associations Thought Content: + paranoid and reality based without delusions Suicidal Thoughts: denies suicidal thoughts Homicidal Thoughts: denies homicidal thoughts Hallucinations: no auditory hallucinations and no visual hallucinations Cognition: recent memory grossly intact, remote memory grossly intact, attention grossly intact and language grossly intact Insight: + limited insight Judgment: + limited judgement Vital Signs (Past 24 Hours) Last Vital Signs Temp 36.6 C 11/05/22 07:53 Pulse 92 H 11/05/22 07:53 Resp 18 11/05/22 07:53 BP 121/80 11/05/22 07:53 Pulse Ox 98 11/05/22 07:53 O2 Del Method Room Air 11/05/22 07:53 Results & Data ([facility]) Laboratory Results Laboratory Results - last 24 hr 11/03/22 11/05/22 11/05/22 16:04 09:49 09:49 WBC 7.91 RBC 4.66 L Hgb 14.5 Hct 40.6 L MCV 87.1 MCH 31.1 MCHC 35.7 RDW Std Deviation 39.7 RDW Coeff of Sidney 12.6 Plt Count 220 MPV 10.3 Sodium Potassium Chloride Carbon Dioxide Anion Gap BUN Creatinine Est Cr Clr Drug Dosing Est GFR ( Amer) Est GFR (Non-Af Amer) BUN/Creatinine Ratio Glucose Osmolality 292 Calcium Phosphorus Magnesium Iron Transferrin Vitamin B12 25-OH Vitamin D Total Staphylococcus sp PCR DETECTED A Bld Cult ID Panel PCR See PCR Comment 11/05/22 11/05/22 09:49 09:49 WBC RBC Hgb Hct MCV MCH MCHC RDW Std Deviation RDW Coeff of Sidney Plt Count MPV Sodium 141 Potassium 3.1 L Chloride 112 H Carbon Dioxide 23 Anion Gap 6 BUN 7 Creatinine 0.79 Est Cr Clr Drug Dosing 146.3 Est GFR ( Amer) 128.4 Est GFR (Non-Af Amer) 110.8 BUN/Creatinine Ratio 8.9 L Glucose 130 H Osmolality Calcium 8.7 Phosphorus 2.5 Magnesium 1.7 Iron 73 Transferrin 130 L Vitamin B12 426 25-OH Vitamin D Total 11.8 L Staphylococcus sp PCR Bld Cult ID Panel PCR Current Inpatient Medications Current Inpatient Medications: Current Inpatient Medications Acetaminophen (Acetaminophen 325 Mg Tab) 650 mg PO Q4H PRN PRN Reason: Pain or Fever Stop: 12/03/22 18:56 Ceftriaxone Sodium 2,000 mg/ (Dextrose) 70 mls @ 100 mls/hr IV Q24H [facility]; Protocol Stop: 11/06/22 15:14 Last Infusion: 11/04/22 16:34 Dose: Infused Lorazepam (Lorazepam 2 Mg/1 Ml Vial) 1 mg IV TID [facility] Stop: 12/04/22 13:59 Last Admin: 11/05/22 08:11 Dose: 1 mg Miscellaneous Information (Vancomycin Consult Active) 1 each N/A UD PRN PRN Reason: Consult Stop: 12/05/22 05:42 Ondansetron HCl (Ondansetron Inj 2 Mg/Ml 2 Ml Vial) 4 mg IV Q6H PRN PRN Reason: Nausea Stop: 12/03/22 18:56 Polyethylene Glycol (Polyethylene (Miralax) 17 Gm Pack) 17 gm PO DAILY PRN PRN Reason: Constipation Stop: 12/03/22 18:56 Polymyxin/Trimethoprim Sulfate (Trimethoprim/Polymyxin B) 2 drops OP QID [facility] Stop: 12/03/22 20:59 Last Admin: 11/05/22 12:05 Dose: Not Given
[2022-11-05] MEDS: ADVANCED PROBIOTIC 1250 MG CAPSULE PO SCH (15:01)
[2022-11-05] MEDS: VENLAFAXINE HCL XR 150 MG CAPXR PO SCH (15:01)
[2022-11-05] MEDS: ERGOCALCIFEROL 50,000 UNITS 1250 MCG CAP PO SCH (15:21)
[2022-11-05] MEDS: cefTRIAXone SODIUM 2,000 MG in DEXTROSE 5% 50 ML IV SCH (15:25)
--- NOTE | 2022-11-05 16:25 | Hospitalist Progress Note ---
Date of Service November 05, 2022 Assessment & Plan (1) Schizoaffective disorder: (2) Unable to care for self: (3) Starvation ketoacidosis: Plan 42-year-old male with PMH of schizoaffective disorder, catatonia who presents after being found minimally responsive and covered in feces on a welfare check. He was brought to the hospital. Found to have starvation ketosis with anion gap metabolic acidosis. He is being managed for the following: Schizoaffective disorder with catatonia Patient was admitted for 5 months from 02/2021 to 06/2021 in psychiatric unit here in the hospital. Had neurology evaluation including MRI brain which was normal. CT head without acute intracranial abnormality, tox screen negative Current presentation similar as well. Patient appears hypersomnolent and mostly responsive after ativan dose Psychiatry on board; the current presentation consistent with Schizoaffective disorder with catatonia. Started on Ativan 1 mg 3 times daily IV. Effexor and risperidone started per psychiatry. Can't leave AMA. Metabolic acidosis likely due to starvation ketosis. s/p resuscitation. resolved. Pneumonia/sepsis rule out: procal neg Bl Cx: ? contaminant, serology neg for resistance; await final C/S. Atb until then. pt afebrile. At presentation: Found to have anion gap metabolic acidosis. Urine ketones positive. Chest x-ray similar to last admission. Leukocytosis likely due to hemoconcentration/stress-induced f/u CBC and BMP tomorrow a.m. Conjunctivitis, assume bacterial : Started on tx for assumed bacterial conjunctivitis given purulent discharge from eyes and presentation; c/w same. DVT Ppx: SQ lovenox Code status: FULL PCP: [place] Dispo: awaiting medical stability for psychiatry dispo. Admission and Anticipated Discharge Date Admission Date: November 03, 2022 Subjective Patient seen and examined at bedside as a follow-up of schizoaffective disorder/chronic condition with acute exacerbation, unable to care for self, concern for blood infection. He is lying in the bed. Sleeping, woke up for bedside exam. Declined antibiotic, also is declining blood tests. Counseled for several minutes for importance of antibiotic since his blood culture has preliminary growth, he initially agreed and then later on declined antibiotic to the nurses. Physical Exam Physical Exam: General Appearance :Lying on the bed comfortably. jesus ears sleepy. orie nted x 3. limited insight & judgemen t. Respiratory:n ormal respiratory effort, lungs hay r to auscultation, no wheeze, rales, rhonchi. No acce ssory muscle use C ardiovascular: ta chycardic rate, re gular rhythm, no m urmur, normal cristy pheral pulses, no BLE edema. Vessels : no JVD Chest: n ormal inspection o f chest Abdomen/GI : normal bowel so unds, soft, nonten ahmet, no hepatosple nomegaly Extremiti es/Musculoskeletal : no cyanosis or clubbing, extremit ies motor strength 5/5 Neurologic/ps ych:Holds his eye s closed, moves on ly to painful stim bibi.Does not answ er any questions S kin: no rashes, n ormal color, warm/ dry, excoriated ar ea near groin but no open wounds vis ualized Results & Data Results & Data Vital Signs (Past 12 Hours) Vital Signs Temp Pulse Resp BP Pulse Ox O2 Del Method 11/05/22 14:16 37 C 105 H 16 112/77 95 Room Air 11/05/22 07:50 Room Air 11/05/22 07:53 36.6 C 92 H 18 121/80 98 Room Air
[2022-11-05] MEDS: risperiDONE 0.5 MG TABLET PO SCH (20:30)
[2022-11-06 07:16] LABS: Hematocrit (blood only) 37.9 % (42.0-52.0); Hemoglobin 13.6 g/dl (14.0-18.0); Mean Corpuscular Hemoglobin 31.1 pg (25.0-34.0); Mean Corpuscular Hgb Conc 35.9 g/dL (32.0-36.0); Mean Corpuscular Volume 86.5 fL (80.0-100.0); Mean Platelet Volume 10.9 fL (9.4-12.4); Platelet Count 187 K/uL (130-400); RDW Coefficient of Variation 12.2 % (11.5-14.5); RDW Standard Deviation 38.8 fL (36.4-46.3); Red Blood Count 4.38 M/uL (4.70-6.10); White Blood Count 7.19 K/ul (4.8-10.8)
[2022-11-06 07:23] LABS: BUN Creatinine Ratio 9.7 (10-20); Calcium 8.5 mg/dl (8.6-10.3); Creatinine Clr Calc Pharmacy 160.5 ml/min; Est GFR (African American) 133.4 ml/min; Est GFR (Non-African American) 115.1 ml/min; Magnesium 1.8 mg/dl (1.7-2.4); Phosphorus 3.4 mg/dl (2.5-4.9); Potassium 3.3 mmol/L (3.5-5.1)
[2022-11-06] MEDS: LORazepam 2 MG/1 ML VIAL IV SCH ×3 (09:19→21:15)
[2022-11-06] MEDS ORDERED: POTASSIUM CHLORIDE CRTAB 20 MEQ TABCR PO STA (09:25)
[2022-11-06] MEDS ORDERED: SODIUM CHLORIDE 0.45 % 1,000 ML IV SCH (09:30)
[2022-11-06] MEDS: ADVANCED PROBIOTIC 1250 MG CAPSULE PO SCH (09:56)
[2022-11-06] MEDS: VENLAFAXINE HCL XR 150 MG CAPXR PO SCH (09:56)
[2022-11-06] MEDS: CEROVITE ADV FORMULA TAB PO SCH (09:57)
[2022-11-06] MEDS: risperiDONE 0.5 MG TABLET PO SCH ×2 (09:57→21:12)
[2022-11-06] MEDS: TRIMETHOPRIM/POLYMYXIN B OP SCH ×4 (09:57→21:13)
--- NOTE | 2022-11-06 12:16 | Psychiatric Progress Note ---
Date of Service November 06, 2022 Impression / Recommendations Impression David Diaz is a 42 yo man with a history of schizoaffective disorder admitted medically for severe decompensation with malnutrition and inability to care for himself most likely due to acute exacerbation of his schizoaffective disorder with current episode of severe neurovegetative depression with evidence of paranoia. On an outpatient 304 commitment that expires 12/09/2022. 11/06/2022: Similar to his prior hospitalization on [facility] [place] in 2020 the question of catatonia remains murky given that he showed a fairly dramatic response to IV ativan with initial dose including suddenly talking with RNs and began eating a nd drinking but then over last two days has reverted to some more neurovegetative but clearly volitionally withdrawn behaviors such as covering himself with a blanket and refusing to talk and pulling his arm away when RN attempted to give him IV antibiotic. He did accept all doses of Effexor and risperidone which were started yesterday. Will increase ativan in case of any persisting catatonia vs neurovegetative symptoms given worsened mutism today and not eating breakfast today. (1) Schizoaffective disorder, chronic condition with acute exacerbation: (2) MDD (major depressive disorder), recurrent episode, severe: (3) Unable to care for self: Plan -Cannot leave AMA, if he attempts to do so please call security and psych liason as he would meet criteria for new involuntary commitment -Increase ativan 2mg TID IV -Continue Effexor 150mg qd for depression -Continue risperidone 0.5mg BID for schizophrenia (will increase if catatonia ruled out by next increased dose of ativan) Interval History Identifying Information David Diaz is a 42 yo man with a history of schizoaffective disorder admitted medically for severe decompensation with malnutrition, sepsis and metabolic acidosis. Psychiatry was consulted for recommendations given his psychiatric symptoms and 302 commitment. Chief Complaint "Barely". Subjective Subjective Patient was seen & assessed and interval progress reviewed. Accepted po medications last night and this morning. Voiding independently. Unclear how much dinner he ate, he did not eat breakfast. On entering his room and asking him if he can open his eyes he tells me "barely" otherwise then quickly shuts them and will not engage. Physical Exam Psychiatric Orientation: alert; + uncooperative Apperance: + disheveled Eye Contact: + poor eye contact Motor Behavior: + psychomotor retardation Speech: + mute (except for one spoken phrase) Affect: + flat affect Cognition: + attention not intact Estimated Intelligence: consistent with education level Insight: + severely impaired insight Judgment: + severely impaired judgement Vital Signs (Past 24 Hours) Last Vital Signs Temp 36.8 C 11/06/22 09:29 Pulse 92 H 11/06/22 09:29 Resp 14 11/06/22 09:29 BP 111/75 11/06/22 09:29 Pulse Ox 95 11/06/22 09:29 O2 Del Method Room Air 11/06/22 09:29 Results & Data ([facility] [place]) Laboratory Results Laboratory Results - last 24 hr 11/06/22 11/06/22 06:27 06:27 WBC 7.19 RBC 4.38 L Hgb 13.6 L Hct 37.9 L MCV 86.5 MCH 31.1 MCHC 35.9 RDW Std Deviation 38.8 RDW Coeff of [place] 12.2 Plt Count 187 MPV 10.9 Sodium 141 Potassium 3.3 L Chloride 112 H Carbon Dioxide 23 Anion Gap 6 BUN 7 Creatinine 0.72 Est Cr Clr Drug Dosing 160.5 Est GFR ( Amer) 133.4 Est GFR (Non-Af Amer) 115.1 BUN/Creatinine Ratio 9.7 L Glucose 106 H Calcium 8.5 L Phosphorus 3.4 Magnesium 1.8 Current Inpatient Medications Current Inpatient Medications: Current Inpatient Medications Acetaminophen (Acetaminophen 325 Mg Tab) 650 mg PO Q4H PRN PRN Reason: Pain or Fever Stop: 12/03/22 18:56 Ergocalciferol (Ergocalciferol 50,000 Units 1250 Mcg Cap) 50,000 units PO Q7D@0900 [facility] Stop: 12/24/22 09:01 Last Admin: 11/05/22 15:21 Dose: 50,000 units Ceftriaxone Sodium 2,000 mg/ (Dextrose) 70 mls @ 100 mls/hr IV Q24H [facility]; Protocol Stop: 11/06/22 15:14 Last Infusion: 11/05/22 16:17 Dose: Infused Sodium Chloride (1/2 Nss) 1,000 mls @ 80 mls/hr IV .[id number] [facility] Stop: 11/06/22 21:59 Last Admin: 11/06/22 09:55 Dose: 80 mls/hr Lactobacillus Acidophilus (Advanced Probiotic 1250 Mg Capsule) 2 cap PO DAILY [facility] Stop: 12/05/22 13:29 Last Admin: 11/06/22 09:56 Dose: 2 cap Lorazepam (Lorazepam 2 Mg/1 Ml Vial) 1 mg IV TID [facility] Stop: 12/04/22 13:59 Last Admin: 11/06/22 09:19 Dose: 1 mg Miscellaneous Information (Vancomycin Consult Active) 1 each N/A UD PRN PRN Reason: Consult Stop: 12/05/22 05:42 Multivitamins/Minerals (Cerovite Adv Formula Tab) 1 tab PO QAM [facility] Stop: 12/06/22 08:59 Last Admin: 11/06/22 09:57 Dose: 1 tab Ondansetron HCl (Ondansetron Inj 2 Mg/Ml 2 Ml Vial) 4 mg IV Q6H PRN PRN Reason: Nausea Stop: 12/03/22 18:56 Polyethylene Glycol (Polyethylene (Miralax) 17 Gm Pack) 17 gm PO DAILY PRN PRN Reason: Constipation Stop: 12/03/22 18:56 Polymyxin/Trimethoprim Sulfate (Trimethoprim/Polymyxin B) 2 drops OP QID [facility] Stop: 12/03/22 20:59 Last Admin: 11/06/22 09:57 Dose: 2 drops Risperidone (Risperidone 0.5 Mg Tablet) 0.5 mg PO BID [facility] Stop: 12/05/22 20:59 Last Admin: 11/06/22 09:57 Dose: 0.5 mg Venlafaxine HCl (Venlafaxine Hcl Xr 150 Mg Capxr) 150 mg PO QAM [facility] Stop: 12/05/22 13:14 Last Admin: 11/06/22 09:56 Dose: 150 mg
--- NOTE | 2022-11-06 18:33 | Hospitalist Progress Note ---
Date of Service November 06, 2022 Assessment & Plan (1) Schizoaffective disorder: (2) Unable to care for self: (3) Starvation ketoacidosis: Plan 42-year-old male with PMH of schizoaffective disorder, catatonia who presents after being found minimally responsive and covered in feces on a welfare check. He was brought to the hospital. Found to have starvation ketosis with anion gap metabolic acidosis. He is being managed for the following: Schizoaffective disorder with catatonia Patient was admitted for 5 months from 02/2021 to 06/2021 in psychiatric unit here in the hospital. Had neurology evaluation including MRI brain which was normal. CT head without acute intracranial abnormality, tox screen negative Current presentation similar as well. Patient appears hypersomnolent and mostly responsive after ativan dose Psychiatry on board; the current presentation consistent with Schizoaffective disorder with catatonia. Titrating Ativan dose. Effexor and risperidone started per psychiatry. Can't leave AMA. Severe malnutrition Vitamin D deficiency: Vitamin D level 11.8 Patient with inadequate food/nutrient intake and severe wt loss, inability to take self-care. Pt has had a wt loss of around 15% within the past 6 months Dietitian evaluated, continue with multivitamins with minerals. Patient also started on vitamin D supplement. Metabolic acidosis likely due to starvation ketosis. s/p resuscitation. resolved. Pneumonia/sepsis rule out: procal neg Bl Cx: ? contaminant, serology neg for resistance; await final C/S. Atb until then. pt afebrile. At presentation: Found to have anion gap metabolic acidosis. Urine ketones positive. Chest x-ray similar to last admission. Leukocytosis likely due to hemoconcentration/stress-induced f/u CBC and BMP tomorrow a.m. follow bl cx. Conjunctivitis, assume bacterial : Started on tx for assumed bacterial conjunctivitis given purulent discharge from eyes and presentation; c/w same. DVT Ppx: SQ lovenox Code status: FULL PCP: Tierneytervictoriano Dispo: awaiting medical stability for psychiatry dispo. Admission and Anticipated Discharge Date Admission Date: November 03, 2022 Subjective Patient seen and examined at bedside as a follow-up of schizoaffective disorder/chronic condition with acute exacerbation, unable to care for self, concern for blood infection. He is lying in the bed. Sleeping, didn't wake up for bedside exam. Per RN, no new acute event overnight, eating intermittently, wakes up after Ativan dose. ROS not able due to cognition status. Physical Exam Physical Exam: General Appearance :Lying on the bed comfortably. jesus ears sleepy. weldon ited insight & brain gement. Respirato ry:normal respira tory effort, lungs clear to ausculta tion, no wheeze, r ales, rhonchi. No accessory muscle use Cardiovascular : tachycardic rat e, regular rhythm, no murmur, normal peripheral pulses , no BLE edema. Ve ssels: no JVD Ches t: normal inspect ion of chest Abdom en/GI: normal bow el sounds, soft, n ontender, no hepat osplenomegaly Extr emities/Musculoske letal: no cyanosi s or clubbing, ext remities motor str ength 5/5 Neurolog ic/psych:Holds hi s eyes closed, mov es only to painful stimuli.Does not answer any questi ons Skin: no rash es, normal color, warm/dry, excoriat ed area near groin but no open wound s visualized Results & Data Results & Data Vital Signs (Past 12 Hours) Vital Signs Temp Pulse Resp BP Pulse Ox O2 Del Method 11/06/22 09:29 36.8 C 92 H 14 111/75 95 Room Air
[2022-11-07] MEDS: risperiDONE 0.5 MG TABLET PO SCH (07:44)
[2022-11-07] MEDS: ADVANCED PROBIOTIC 1250 MG CAPSULE PO SCH (07:44)
[2022-11-07] MEDS: CEROVITE ADV FORMULA TAB PO SCH (07:44)
[2022-11-07] MEDS: VENLAFAXINE HCL XR 150 MG CAPXR PO SCH (07:44)
[2022-11-07] MEDS: LORazepam 2 MG/1 ML VIAL IV SCH ×3 (07:52→20:22)
[2022-11-07] MEDS: TRIMETHOPRIM/POLYMYXIN B OP SCH ×4 (07:52→20:25)
[2022-11-07] MEDS ORDERED: cefTRIAXone SODIUM 2,000 MG in DEXTROSE 5% 50 ML IV SCH (12:15)
--- NOTE | 2022-11-07 13:08 | Psychiatric Progress Note ---
Date of Service November 07, 2022 Impression / Recommendations Impression David Diaz is a 42 yo man with a history of schizoaffective disorder admitted medically for severe decompensation with malnutrition and inability to care for himself most likely due to acute exacerbation of his schizoaffective disorder with current episode of severe neurovegetative depression with evidence of paranoia. On an outpatient 304 commitment that expires 12/09/2022. 11/07/2022: Similar to his prior hospitalization on [facility] in 2020 the question of catatonia remains murky given that he showed a fairly dramatic response to IV ativan with initial dose and some increase in engagement after increased dose y but then over last three days has reverted to some more neurovegetative but clearly volitionally withdrawn behaviors. He is eating intermittently and at times engaging but is selective about this. Given decreasing concern for catatonia will increase risperidone in effort to address possible internal stimuli driven symptoms leading to his withdrawn state but will continue with IV ativan for now. (1) Schizoaffective disorder, chronic condition with acute exacerbation: (2) MDD (major depressive disorder), recurrent episode, severe: (3) Unable to care for self: Plan -Cannot leave AMA, if he attempts to do so please call security and psych liason as he would meet criteria for new involuntary commitment -continue with ativan 2mg TID IV -Continue Effexor 150mg qd for depression -Increase risperidone 1mg BID for schizophrenia (catatonia seeming less likely) Interval History Identifying Information David Diaz is a 42 yo man with a history of schizoaffective disorder admitted medically for severe decompensation with malnutrition, sepsis and metabolic acidosis. Psychiatry was consulted for recommendations given his psychiatric symptoms and 302 commitment. Chief Complaint mute Subjective Subjective Patient was seen & assessed and interval progress reviewed. Last evening RN message via [facility] noting that following increased dose of IV ativan he did out of bed and seemed more talkative. Spoke with his RN who said he has been intermittently engaging this morning. He ate his breakfast and took his medications. Initially reluctant to take his risperidone but did after RN encouragement. When I enter his room he is mute and will not respond despite multiple attempts to engage with him. Physical Exam Psychiatric Orientation: alert; + uncooperative Apperance: + disheveled Eye Contact: + poor eye contact Motor Behavior: + psychomotor retardation Speech: + mute Affect: + flat affect Cognition: + attention not intact Estimated Intelligence: consistent with education level Insight: + severely impaired insight Judgment: + severely impaired judgement Vital Signs (Past 24 Hours) Last Vital Signs Temp 37.3 C 11/07/22 07:29 Pulse 95 H 11/07/22 07:29 Resp 16 11/07/22 07:29 BP 113/79 11/07/22 07:29 Pulse Ox 96 11/07/22 07:29 O2 Del Method Room Air 11/07/22 07:29 Results & Data ([facility]) Current Inpatient Medications Current Inpatient Medications: Current Inpatient Medications Acetaminophen (Acetaminophen 325 Mg Tab) 650 mg PO Q4H PRN PRN Reason: Pain or Fever Stop: 12/03/22 18:56 Ergocalciferol (Ergocalciferol 50,000 Units 1250 Mcg Cap) 50,000 units PO Q7D@0900 [facility] Stop: 12/24/22 09:01 Last Admin: 11/05/22 15:21 Dose: 50,000 units Ceftriaxone Sodium 2,000 mg/ (Dextrose) 70 mls @ 100 mls/hr IV Q24H [facility]; Protocol Stop: 11/21/22 12:14 Lactobacillus Acidophilus (Advanced Probiotic 1250 Mg Capsule) 2 cap PO DAILY [facility] Stop: 12/05/22 13:29 Last Admin: 11/07/22 07:44 Dose: 2 cap Lorazepam (Lorazepam 2 Mg/1 Ml Vial) 2 mg IV TID [facility] Stop: 12/06/22 13:59 Last Admin: 11/07/22 07:52 Dose: 2 mg Miscellaneous Information (Vancomycin Consult Active) 1 each N/A UD PRN PRN Reason: Consult Stop: 12/05/22 05:42 Multivitamins/Minerals (Cerovite Adv Formula Tab) 1 tab PO QAM [facility] Stop: 12/06/22 08:59 Last Admin: 11/07/22 07:44 Dose: 1 tab Ondansetron HCl (Ondansetron Inj 2 Mg/Ml 2 Ml Vial) 4 mg IV Q6H PRN PRN Reason: Nausea Stop: 12/03/22 18:56 Polyethylene Glycol (Polyethylene (Miralax) 17 Gm Pack) 17 gm PO DAILY PRN PRN Reason: Constipation Stop: 12/03/22 18:56 Polymyxin/Trimethoprim Sulfate (Trimethoprim/Polymyxin B) 2 drops OP QID [facility] Stop: 12/03/22 20:59 Last Admin: 11/07/22 07:52 Dose: Not Given Risperidone (Risperidone 0.5 Mg Tablet) 0.5 mg PO BID O[facility] Stop: 12/05/22 20:59 Last Admin: 11/07/22 07:44 Dose: 0.5 mg Venlafaxine HCl (Venlafaxine Hcl Xr 150 Mg Capxr) 150 mg PO QAM [facility] Stop: 12/05/22 13:14 Last Admin: 11/07/22 07:44 Dose: 150 mg
[2022-11-07 15:46] LABS: Hematocrit (blood only) 39.6 % (42.0-52.0); Hemoglobin 13.9 g/dl (14.0-18.0); Mean Corpuscular Hgb Conc 35.1 g/dL (32.0-36.0); Mean Corpuscular Volume 88.4 fL (80.0-100.0); Platelet Count 202 K/uL (130-400); RDW Coefficient of Variation 12.3 % (11.5-14.5); RDW Standard Deviation 39.8 fL (36.4-46.3); Red Blood Count 4.48 M/uL (4.70-6.10); White Blood Count 8.49 K/ul (4.8-10.8)
--- NOTE | 2022-11-07 15:54 | Hospitalist Progress Note ---
Date of Service November 07, 2022 Assessment & Plan (1) Schizoaffective disorder: (2) Unable to care for self: (3) Starvation ketoacidosis: Plan 42-year-old male with PMH of schizoaffective disorder, catatonia who presents after being found minimally responsive and covered in feces on a welfare check. He was brought to the hospital. Found to have starvation ketosis with anion gap metabolic acidosis. He is being managed for the following: Schizoaffective disorder with catatonia Patient was admitted for 5 months from 02/2021 to 06/2021 in psychiatric unit here in the hospital. Had neurology evaluation including MRI brain which was normal. CT head without acute intracranial abnormality, tox screen negative Current presentation similar as well. Patient appears hypersomnolent and mostly responsive after ativan dose Psychiatry on board; the current presentation consistent with Schizoaffective disorder with catatonia. Titrating Ativan dose. Effexor and risperidone started per psychiatry. Can't leave AMA. Severe malnutrition Vitamin D deficiency: Vitamin D level 11.8 Patient with inadequate food/nutrient intake and severe wt loss, inability to take self-care. Pt has had a wt loss of around 15% within the past 6 months Dietitian evaluated, continue with multivitamins with minerals. Patient also started on vitamin D supplement, continue. Metabolic acidosis likely due to starvation ketosis. s/p resuscitation. resolved. Pneumonia/sepsis rule out: procal neg Bl Cx: is likely contaminant, serology neg for resistance; pt afebrile, will dc atb today. At presentation: Found to have anion gap metabolic acidosis. Urine ketones positive. Chest x-ray similar to last admission. Leukocytosis likely due to hemoconcentration/stress-induced Conjunctivitis, assume bacterial : Started on tx for assumed bacterial conjunctivitis given purulent discharge from eyes and presentation; c/w same. DVT Ppx: SQ lovenox Code status: FULL PCP: Tierneytervictoriano Dispo: medically stable for dc to psych unless new medical issue arise. Admission and Anticipated Discharge Date Admission Date: November 03, 2022 Subjective Patient seen and examined at bedside as a follow-up of schizoaffective disorder/chronic condition with acute exacerbation, unable to care for self, concern for blood infection. He is lying in the bed. Sleeping, woke up for exam, still looking sleepy. Per RN, no new acute event overnight, eating fine, moving bowel ok. denies headache/dizziness/chest pain Physical Exam Physical Exam: General Appearance :Lying on the bed comfortably. jesus ears sleepy. weldon ited insight & brain gement. Respirato ry:normal respira tory effort, lungs clear to ausculta tion, no wheeze, r ales, rhonchi. No accessory muscle use Cardiovascular : tachycardic rat e, regular rhythm, no murmur, normal peripheral pulses , no BLE edema. Ve ssels: no JVD Ches t: normal inspect ion of chest Abdom en/GI: normal bow el sounds, soft, n ontender, no hepat osplenomegaly Extr emities/Musculoske letal: no cyanosi s or clubbing, ext remities motor str ength 5/5 Neurolog ic/psych:Holds hi s eyes closed, mov es only to painful stimuli.Does not answer any questi ons Skin: no rash es, normal color, warm/dry, excoriat ed area near groin but no open wound s visualized Results & Data Results & Data Vital Signs (Past 12 Hours) Vital Signs Temp Pulse Resp BP Pulse Ox O2 Del Method 11/07/22 15:42 36.7 C 100 H 16 130/82 95 Room Air 11/07/22 07:29 37.3 C 95 H 16 113/79 96 Room Air
[2022-11-07 15:57] LABS: BUN Creatinine Ratio 11.5 (10-20); Calcium 8.7 mg/dl (8.6-10.3); Creatinine Clr Calc Pharmacy 148.1 ml/min; Est GFR (Non-African American) 111.3 ml/min; Magnesium 2.1 mg/dl (1.7-2.4); Phosphorus 2.5 mg/dl (2.5-4.9); Potassium 3.5 mmol/L (3.5-5.1)
[2022-11-07] MEDS: risperiDONE 1 MG TABLET PO SCH (20:24)
[2022-11-08] MEDS: risperiDONE 1 MG TABLET PO SCH ×2 (09:10→20:16)
[2022-11-08] MEDS: VENLAFAXINE HCL XR 150 MG CAPXR PO SCH ×2 (09:10→14:36)
[2022-11-08] MEDS: ADVANCED PROBIOTIC 1250 MG CAPSULE PO SCH ×2 (09:10→14:35)
[2022-11-08] MEDS: TRIMETHOPRIM/POLYMYXIN B OP SCH ×4 (09:10→20:14)
[2022-11-08] MEDS: CEROVITE ADV FORMULA TAB PO SCH ×2 (09:10→14:36)
[2022-11-08] MEDS: LORazepam 2 MG/1 ML VIAL IV SCH ×2 (09:11→14:38)
--- NOTE | 2022-11-08 13:32 | Psychiatric Progress Note ---
Date of Service November 08, 2022 Impression / Recommendations Impression David Diaz is a 42 yo man with a history of schizoaffective disorder admitted medically for severe decompensation with malnutrition and inability to care for himself most likely due to acute exacerbation of his schizoaffective disorder with current episode of severe neurovegetative depression with evidence of paranoia. On an outpatient 304 commitment that expires 12/09/2022. 11/08/2022: Pt with a history of previous very prolonged (131-day) admission to the psychiatric unit here with behaviors entirely consistent with the current presentation in that he at times appeared withdrawn and nonresponsive and at ot her times would engage. He exhibited some provocative behaviors typically involving bodily wastes (as an example, showered when staff insisted, but smeared the velazquez of the shower with feces then notified staff that now they would have to clean that up). Just as then, during the current medical admission any evidence of "catatonia" has been very equivocal with inconsistent response to medication as well as clearly volitional behavior when superficially "catatonic" (for example, withdrawing an arm during venipuncture). His self-care at home has been concerning in that he often chooses to eliminate in bed or not to bathe and is not consistent about using medication. Although he has often been found in bed soiled with feces or urine, it has curiously been noted that his door is often unlocked and even partially open at times when home visits are planned. Pt did not respond in any detectable way to anything I said. My physical exam showed an absence of the expected oculocortical ("doll's eyes") reflex - his eyes, with eyelids I had to hold open, did not change position relative to his head as I moved his head from side to side. This would typically only be seen with significant brainstem or pontine injury. I also noted some active resistance to my pulling his eyelids open. A "hand-drop" test, in which I lifted his hand and inspected a dressing on his left wrist, explaining to the psychiatric nurse who accompanied me that I wanted "to check out this dressing", then suddenly releasing his hand when it was directly over his face, resulted in a slow and almost balletic descent of the hand and arm to a graceful position palm-up above his head. While lifting the arm, it seemed limp and I detected neither resistance nor assistance in lifting it. In appearance, pt is well-groomed with what appears to be recently-styled hair and does not appear shaggy nor unkempt. He appears plump, rather than looking gaunt as one may expect of someone who hasn't been eating. His extremities do not exhibit any wasting or disuse atrophy. Review of labs indicates ketoacidosis on admission as well as a history of ketonuria over the course of many hospital visits. Nonfasting blood glucose was somewhat elevated on presentation. My conclusion is that apparent "catatonia" is factitious at this time. This implies intentionally-produced symptoms but not necessarily that this is the result of a conscious process, nor is it the same as malingering. I can't identify any clear external reward ("secondary gain") nor was any found during his extended prior psychiatric stay. In this case, I believe the gain is "primary", that is, a psychological need to assume the "sick role" and to continue to be seen as ill. There is good evidence that pt can, and does, move volitionally as well as decent indirect evidence that he's not actually failing to care for himself altogether. His failures of personal care are fairly dramatic and infantile (lying in or smearing himself with feces, for example) and it seems he takes measures to ensure that such failures are noted. None of this is to say that he doesn't have a schizoaffective disorder (a condition characterized by concurrent symptoms of a major mood disorder and schizophrenia, with a history of at least 2 weeks of psychotic symptoms in the absence of major mood symptoms; it is definitionally inconsistent with concurrent diagnoses of schizophrenia or major mood disorders such as major depressive disorder or bipolar disorder, but we can certainly diagnose major mood episodes, such as a manic episode or major depressive episode in the course of schizoaffective disorder). Nor is it to say that he may not at times have non-factitious catatonic episodes. The thorniest question is about whether pt has the ability to care for himself. I would offer that I do think he has the ability to care for himself but often chooses not to in order that others must care for him. It's not at all clear how far he might push this, since he seems to act with very high confidence that "someone" will notice his apparent needs and step in to intervene. He has demonstrated a willingness to go to lengths that most adults won't in terms of prolonged contact with his own bodily wastes and has in the past voiced very clear awareness of this and of his expectations of how others should respond to that. Ultimately, it appears clear that very prolonged psychiatric hospitalization, with care from different psychiatrists over that period and a range of treatment approaches that each were applied over significant stretches of time did not result in much change or lasting benefit. It transpires that the suspected sepsis was erroneous, and his acidosis has been addressed. The hospitalist has expressed confidence that pt is medically stable. In my opinion, pt is also psychiatrically stable in the sense that his chronic symptoms are largely unchanged and appear to respond to treatment to a minimal degree. He has been functioning very marginally with occasional worsening that has led to several ED visits but usually has not needed medical admission. It seems to me that he has little benefit to gain from psychiatric hospitalization other than correction care. Unfortunately, he may end up requiring correction care but I don't see much likelihood that inpatient psychiatric treatment would eliminate or reduce the chance of that happening. 11/07/2022: Similar to his prior hospitalization on [facility] in 2020 the question of catatonia remains murky given that he showed a fairly dramatic response to IV ativan with initial dose and some increase in engagement after increased dose yesterday but then over last three days has reverted to some more neurovegetative but clearly volitionally withdrawn behaviors. He is eating intermittently and at times engaging but is selective about this. Given decreasing concern for catatonia will increase risperidone in effort to address possible internal stimuli driven symptoms leading to his withdrawn state but will continue with IV ativan for now. 11/06/2022: Similar to his prior hospitalization on [facility] in 2020 the question of catatonia remains murky given that he showed a fairly dramatic response to IV ativan with initial dose including suddenly talking with RNs and began eating and drinking but then over last two days has reverted to some more neurovegetative but clearly volitionally withdrawn behaviors such as covering himself with a blanket and refusing to talk and pulling his arm away when RN attempted to give him IV antibiotic. He did accept all doses of Effexor and risperidone which were started yesterday. Will increase ativan in case of any persisting catatonia vs neurovegetative symptoms given worsened mutism today and not eating breakfast today. 11/05/2022: Similar to his prior hospitalization on [facility] in 2020 the question of catatonia remains murky given that he showed a fairly dramatic response to IV ativan yesterday including suddenly talking with RNs and began eating and drinking but then today reverted back to some more neurovegetative but clearly volitionally withdrawn behaviors such as covering himself with a blanket and refusing to talk and pulling his arm when RN attempted to give him IV antibiotic. However, given yesterday's positive response and his agreement with continuing ativan will continue with this for now. Encouragingly he is talking today and participated in an interview and has been eating, drinking and independently using the bathroom. Does have some paranoia. He consents to starting Effexor XR for depression, which he was taking while at [facility] in September, and starting risperidone as he declines restarting haldol (which was also used with some success in September while he was at the [facility]). Focused on wanting to go home but concerns remain about his ability to care for himself given state he was brought to the hospital in so will continue to monitor his po intake, bathroom use, and behavioral organization. In discussing the antibiotic he raises concerns that it will also kill useful bacteria and thus why he refused. Attempted to provide some education about the importance of antibiotic use with positive blood cultures and likely option for addition of a probiotic. He agreed to discuss this further with the hospitalist. For now seems to be showing decision making around his refusal however unclear how much he was educated on risks of ongoing refusal and if this would be life threatening then decision making capacity would need to be re-evaluated as he would need to be able to speak to those risks. (1) Schizoaffective disorder, depressive type: Present on Admission?: Yes Plan * taper lorazepam due to lack of clear benefit, substantial risk of sedation * continue venlafaxine 150 mg daily for depression and anxiety symptoms * continue risperidone 1 mg BID for psychosis * would not likely benefit from psychiatric admission at this time Suicide Risk Level Suicide Risk Level: Low (q15 min observation checks) Suicide Risk Level Comments: pt has voiced no suicidal thoughts Interval History Identifying Information David Diaz is a 42 yo man with a history of schizoaffective disorder admitted medically for severe decompensation with malnutrition, sepsis and metabolic acidosis. Psychiatry was consulted for recommendations given his psychiatric symptoms and 302 commitment. Chief Complaint "[]". Subjective Subjective Patient was seen & assessed and interval progress reviewed with in a multidisciplinary team meeting with psychiatric liaison nursing. For details, see the "Impression" section below. Physical Exam Psychiatric Orientation: alert, oriented to person and oriented to place Apperance: appropriately dressed, appropriately groomed and + disheveled disengaged Eye Contact: + fair eye contact Motor Behavior: no abnormal motor movements and + psychomotor retardation varies, with periods of elective mutism but at other times exhibiting normal latency, rate, duration, and volume bland affect evidencing little congruence with topic of conversation Mood: + irritable mood Thought Process: + circumstantial thought process and + looseness of associations vague Thought Content: reality based without delusions Suicidal Thoughts: denies suicidal thoughts Homicidal Thoughts: denies homicidal thoughts Hallucinations: no auditory hallucinations and no visual hallucinations Cognition: recent memory grossly intact, remote memory grossly intact and language grossly intact; + attention not intact Estimated Intelligence: consistent with education level Insight: + limited insight Judgment: + limited judgement Vital Signs (Past 24 Hours) Last Vital Signs Temp 36.5 C 11/08/22 07:27 Pulse 93 H 11/08/22 07:27 Resp 16 11/08/22 07:27 BP 107/73 11/08/22 07:27 Pulse Ox 99 11/08/22 07:27 O2 Del Method Room Air 11/08/22 07:27 Neurologic Comatose Patient: + doll's eyes reflex absent; response to noxious stimuli present and hand drop from over head - misses face (hand descended slowly and gracefully to palm-up position above head) Results & Data ([facility]) Laboratory Results Laboratory Results - last 24 hr 11/07/22 11/07/22 15:11 15:11 WBC 8.49 RBC 4.48 L Hgb 13.9 L Hct 39.6 L MCV 88.4 MCH 31.0 MCHC 35.1 RDW Std Deviation 39.8 RDW Coeff of [place] 12.3 Plt Count 202 MPV 11.0 Sodium 140 Potassium 3.5 Chloride 110 H Carbon Dioxide 25 Anion Gap 5 BUN 9 Creatinine 0.78 Est Cr Clr Drug Dosing 148.1 Est GFR ( Amer) 129.0 Est GFR (Non-Af Amer) 111.3 BUN/Creatinine Ratio 11.5 Glucose 125 H Calcium 8.7 Phosphorus 2.5 Magnesium 2.1 Current Inpatient Medications Current Inpatient Medications: Current Inpatient Medications Acetaminophen (Acetaminophen 325 Mg Tab) 650 mg PO Q4H PRN PRN Reason: Pain or Fever Stop: 12/03/22 18:56 Ergocalciferol (Ergocalciferol 50,000 Units 1250 Mcg Cap) 50,000 units PO Q7D@0900 [facility] Stop: 12/24/22 09:01 Last Admin: 11/05/22 15:21 Dose: 50,000 units Lactobacillus Acidophilus (Advanced Probiotic 1250 Mg Capsule) 2 cap PO DAILY [facility] Stop: 12/05/22 13:29 Last Admin: 11/08/22 09:10 Dose: 2 cap Lorazepam (Lorazepam 2 Mg/1 Ml Vial) 2 mg IV TID [facility] Stop: 12/06/22 13:59 Last Admin: 11/08/22 09:11 Dose: 2 mg Multivitamins/Minerals (Cerovite Adv Formula Tab) 1 tab PO QAM [facility] Stop: 12/06/22 08:59 Last Admin: 11/08/22 09:10 Dose: 1 tab Ondansetron HCl (Ondansetron Inj 2 Mg/Ml 2 Ml Vial) 4 mg IV Q6H PRN PRN Reason: Nausea Stop: 12/03/22 18:56 Polyethylene Glycol (Polyethylene (Miralax) 17 Gm Pack) 17 gm PO DAILY PRN PRN Reason: Constipation Stop: 12/03/22 18:56 Polymyxin/Trimethoprim Sulfate (Trimethoprim/Polymyxin B) 2 drops OP QID [facility] Stop: 12/03/22 20:59 Last Admin: 11/08/22 12:29 Dose: Not Given Risperidone (Risperidone 1 Mg Tablet) 1 mg PO BID [facility] Stop: 12/07/22 20:59 Last Admin: 11/08/22 09:10 Dose: 1 mg Venlafaxine HCl (Venlafaxine Hcl Xr 150 Mg Capxr) 150 mg PO QAM [facility] Stop: 12/05/22 13:14 Last Admin: 11/08/22 09:10 Dose: 150 mg
--- NOTE | 2022-11-08 15:46 | Hospitalist Progress Note ---
Date of Service November 08, 2022 Assessment & Plan (1) Schizoaffective disorder: (2) Unable to care for self: (3) Starvation ketoacidosis: Plan 42-year-old male with PMH of schizoaffective disorder, catatonia who presents after being found minimally responsive and covered in feces on a welfare check. He was brought to the hospital. Found to have starvation ketosis with anion gap metabolic acidosis. He is being managed for the following: Schizoaffective disorder with catatonia Patient was admitted for 5 months from 02/2021 to 06/2021 in psychiatric unit here in the hospital. Had neurology evaluation including MRI brain which was normal. CT head without acute intracranial abnormality, tox screen negative Current presentation similar as well. Patient appears hypersomnolent and mostly responsive after ativan dose Psychiatry on board; the current presentation consistent with Schizoaffective disorder with catatonia. Titrating Ativan dose. Effexor and risperidone started per psychiatry. Can't leave AMA. Severe malnutrition Vitamin D deficiency: Vitamin D level 11.8 Patient with inadequate food/nutrient intake and severe wt loss, inability to take self-care. Pt has had a wt loss of around 15% within the past 6 months Dietitian evaluated, continue with multivitamins with minerals. Patient also started on vitamin D supplement, continue. As of yesterday with better food intake, today sleepy through the morning, plan to skip ativan in the day upon d/w psychiatry. Metabolic acidosis likely due to starvation ketosis. s/p resuscitation. resolved. Pneumonia/sepsis rule out: procal neg Bl Cx: is likely contaminant, serology neg for resistance; pt afebrile, dc'd atb 11/07. At presentation: Found to have anion gap metabolic acidosis. Urine ketones positive. Chest x-ray similar to last admission. Leukocytosis likely due to hemoconcentration/stress-induced Conjunctivitis, assume bacterial : Started on tx for assumed bacterial conjunctivitis given purulent discharge from eyes and presentation; c/w same. DVT Ppx: SQ lovenox Code status: FULL PCP: Rob Dispo: medically stable for dc to psych unless new medical issue arise. Admission and Anticipated Discharge Date Admission Date: November 03, 2022 Subjective Patient seen and examined at bedside as a follow-up of schizoaffective disorder/chronic condition with acute exacerbation, unable to care for self, concern for blood infection. He is lying in the bed. Sleeping, didn't wake up for exam. Per RN, no new acute event overnight, eating fine yesterday - sleeping in the morning. ROS not able. Physical Exam Physical Exam: General Appearance :Lying on the bed comfortably.slee ping. Respiratory :normal respirato ry effort, lungs c lear to auscultati on, no wheeze, ral es, rhonchi. No a ccessory muscle us e Cardiovascular: tachycardic rate, regular rhythm, n o murmur, normal p eripheral pulses, no BLE edema. Vess els: no JVD Chest: normal inspectio n of chest Abdomen /GI: normal bowel sounds, soft, non tender, no hepatos plenomegaly Extrem ities/Musculoskele eliz: no cyanosis or clubbing, extre mities motor stren [facility] 5/5 Neurologic /psych: Does not a nswer any question s Skin: no rashes , normal color, wa rm/dry, excoriated area near groin b ut no open wounds visualized Results & Data Results & Data Vital Signs (Past 12 Hours) Vital Signs Temp Pulse Resp BP Pulse Ox O2 Del Method 11/08/22 15:36 37.1 C 94 H 16 106/72 97 Room Air 11/08/22 07:27 36.5 C 93 H 16 107/73 99 Room Air
[2022-11-09 07:26] LABS: Hematocrit (blood only) 44.4 % (42.0-52.0); Hemoglobin 15.5 g/dl (14.0-18.0); Mean Corpuscular Hemoglobin 30.9 pg (25.0-34.0); Mean Corpuscular Hgb Conc 34.9 g/dL (32.0-36.0); Mean Corpuscular Volume 88.6 fL (80.0-100.0); Mean Platelet Volume 10.9 fL (9.4-12.4); Platelet Count 213 K/uL (130-400); RDW Coefficient of Variation 12.4 % (11.5-14.5); RDW Standard Deviation 40.4 fL (36.4-46.3); Red Blood Count 5.01 M/uL (4.70-6.10); White Blood Count 10.97 K/ul (4.8-10.8)
[2022-11-09 07:50] LABS: Calcium 8.9 mg/dl (8.6-10.3); Potassium 4.5 mmol/L (3.5-5.1)
[2022-11-09 07:54] LABS: BUN Creatinine Ratio 18.4 (10-20); Est GFR (African American) 130.4 ml/min; Est GFR (Non-African American) 112.5 ml/min
[2022-11-09] MEDS: VENLAFAXINE HCL XR 150 MG CAPXR PO SCH (09:51)
[2022-11-09] MEDS: risperiDONE 1 MG TABLET PO SCH ×2 (09:51→21:06)
[2022-11-09] MEDS: TRIMETHOPRIM/POLYMYXIN B OP SCH ×4 (09:51→21:06)
[2022-11-09] MEDS: CEROVITE ADV FORMULA TAB PO SCH (09:51)
[2022-11-09] MEDS: ADVANCED PROBIOTIC 1250 MG CAPSULE PO SCH (09:51)
--- NOTE | 2022-11-09 15:41 | Hospitalist Progress Note ---
Date of Service November 09, 2022 Assessment & Plan (1) Schizoaffective disorder: (2) Unable to care for self: (3) Starvation ketoacidosis: Plan 42-year-old male with PMH of schizoaffective disorder, catatonia who presents after being found minimally responsive and covered in feces on a welfare check. He was brought to the hospital. Found to have starvation ketosis with anion gap metabolic acidosis. He is being managed for the following: Schizoaffective disorder with catatonia Patient was admitted for 5 months from 02/2021 to 06/2021 in psychiatric unit here in the hospital. Had neurology evaluation including MRI brain which was normal. CT head without acute intracranial abnormality, tox screen negative Current presentation similar as well. Patient deemed not caring for self/not moving around much, with get pt/ot eval Psychiatry on board; ativan po prn, Effexor and risperidone started per psychiatry. Severe malnutrition Vitamin D deficiency: Vitamin D level 11.8 Patient with inadequate food/nutrient intake and severe wt loss, inability to take self-care. Pt has had a wt loss of around 15% within the past 6 months Dietitian evaluated, continue with multivitamins with minerals. Patient also started on vitamin D supplement, continue. Again poor food intake today. Metabolic acidosis likely due to starvation ketosis. s/p resuscitation. resolved. Pneumonia/sepsis rule out: procal neg Bl Cx: is likely contaminant, serology neg for resistance; pt afebrile, dc'd atb 11/07. At presentation: Found to have anion gap metabolic acidosis. Urine ketones positive. Chest x-ray similar to last admission. Leukocytosis likely due to hemoconcentration/stress-induced Conjunctivitis, assume bacterial : Started on tx for assumed bacterial conjunctivitis given purulent discharge from eyes and presentation; c/w same. DVT Ppx: SQ lovenox Code status: FULL PCP: [place] Dispo: pt with urine on self today. ?? OOA eval, will reach out to CM; pt ot eval. Admission and Anticipated Discharge Date Admission Date: November 03, 2022 Subjective Patient seen and examined at bedside as a follow-up of schizoaffective disorder/chronic condition with acute exacerbation, unable to care for self, c oncern for blood infection. He is lying in the bed. Sleeping, didn't wake up for exam. Per RN, no new acute event overnight, eating fine yesterday - sleeping in the morning, has peed on self/didn't take meds and food today. ROS not able. Physical Exam Physical Exam: General Appearance :Lying on the bed comfortably.slee ping. Respiratory :normal respirato ry effort, lungs c lear to auscultati on, no wheeze, ral es, rhonchi. No a ccessory muscle us e Cardiovascular: tachycardic rate, regular rhythm, n o murmur, normal p eripheral pulses, no BLE edema. Vess els: no JVD Chest: normal inspectio n of chest Abdomen /GI: normal bowel sounds, soft, non tender, no hepatos plenomegaly Extrem ities/Musculoskele eliz: no cyanosis or clubbing, extre mities motor stren [facility] 5/5 Neurologic /psych: Does not a nswer any question s Skin: no rashes , normal color, wa rm/dry, excoriated area near groin b ut no open wounds visualized Results & Data Results & Data Vital Signs (Past 12 Hours) Vital Signs Temp Pulse Resp BP Pulse Ox O2 Del Method 11/09/22 07:51 36.3 C L 93 H 16 109/76 93 Room Air
[2022-11-10] MEDS: TRIMETHOPRIM/POLYMYXIN B OP SCH ×4 (10:01→21:22)
[2022-11-10] MEDS: risperiDONE 1 MG TABLET PO SCH ×2 (10:02→21:22)
[2022-11-10] MEDS: CEROVITE ADV FORMULA TAB PO SCH (10:02)
[2022-11-10] MEDS: ADVANCED PROBIOTIC 1250 MG CAPSULE PO SCH (10:02)
[2022-11-10] MEDS: VENLAFAXINE HCL XR 150 MG CAPXR PO SCH (10:03)
[2022-11-10 14:58] LABS: Hematocrit (blood only) 42.6 % (42.0-52.0); Hemoglobin 15.2 g/dl (14.0-18.0); Mean Corpuscular Hemoglobin 31.1 pg (25.0-34.0); Mean Corpuscular Hgb Conc 35.7 g/dL (32.0-36.0); Mean Corpuscular Volume 87.1 fL (80.0-100.0); Mean Platelet Volume 10.7 fL (9.4-12.4); Platelet Count 208 K/uL (130-400); RDW Coefficient of Variation 12.5 % (11.5-14.5); RDW Standard Deviation 39.8 fL (36.4-46.3); Red Blood Count 4.89 M/uL (4.70-6.10); White Blood Count 10.84 K/ul (4.8-10.8)
[2022-11-10 15:16] LABS: BUN Creatinine Ratio 20.7 (10-20); Calcium 8.7 mg/dl (8.6-10.3); Creatinine Clr Calc Pharmacy 132.8 ml/min; Est GFR (African American) 123.4 ml/min; Est GFR (Non-African American) 106.5 ml/min; Potassium 3.8 mmol/L (3.5-5.1)
--- NOTE | 2022-11-10 17:57 | Hospitalist Progress Note ---
Date of Service November 10, 2022 Assessment & Plan (1) Schizoaffective disorder: (2) Unable to care for self: (3) Starvation ketoacidosis: Plan 42-year-old male with PMH of schizoaffective disorder, catatonia who presents after being found minimally responsive and covered in feces on a welfare check. He was brought to the hospital. Found to have starvation ketosis with anion gap metabolic acidosis. He is being managed for the following: Schizoaffective disorder with catatonia Patient was admitted for 5 months from 02/2021 to 06/2021 in psychiatric unit here in the hospital. Had neurology evaluation including MRI brain which was normal. CT head without acute intracranial abnormality, tox screen negative Current presentation similar as well. Patient deemed not caring for self/not moving around much, pt/ot eval Psychiatry on board; ativan po prn, Effexor and risperidone started per psychiatry. Severe malnutrition Vitamin D deficiency: Vitamin D level 11.8 Patient with inadequate food/nutrient intake and severe wt loss, inability to take self-care. Pt has had a wt loss of around 15% within the past 6 months Dietitian evaluated, continue with multivitamins with minerals. Patient also started on vitamin D supplement, continue. Again poor food intake today. Metabolic acidosis likely due to starvation ketosis. s/p resuscitation. resolved. Pneumonia/sepsis rule out: procal neg Bl Cx: is likely contaminant, serology neg for resistance; pt afebrile, dc'd atb 11/07. At presentation: Found to have anion gap metabolic acidosis. Urine ketones positive. Chest x-ray similar to last admission. Leukocytosis likely due to hemoconcentration/stress-induced Conjunctivitis, assume bacterial : Started on tx for assumed bacterial conjunctivitis given purulent discharge from eyes and presentation; c/w same. DVT Ppx: SQ lovenox Code status: FULL PCP: [place] Dispo: pt with urine on self today. ?? OOA ev[facility]haya, CM to assist; pt ot evchhaya. d/w cm for safe dispo need. Per RN, -- per pt's [facility] CM, pt's apt is considered biohazard and not suitable for living as of now. Admission and Anticipated Discharge Date Admission Date: November 03, 2022 Subjective Patient seen and examined at bedside as a follow-up of schizoaffective disorder/chronic condition with acute exacerbation, unable to care for self, concern for blood infection. He is lying in the bed. Sleeping, didn't wake up for exam. Per RN, no new acute event overnight, ate last night - sleeping in the morning, has peed on self/didn't take meds and food today again. ROS not able. Physical Exam Physical Exam: General Appearance :Lying on the bed comfortably.slee ping. Respiratory :normal respirato ry effort, lungs c lear to auscultati on, no wheeze, ral es, rhonchi. No a ccessory muscle us e Cardiovascular: tachycardic rate, regular rhythm, n o murmur, normal p eripheral pulses, no BLE edema. Vess els: no JVD Chest: normal inspectio n of chest Abdomen /GI: normal bowel sounds, soft, non tender, no hepatos plenomegaly Extrem ities/Musculoskele eliz: no cyanosis or clubbing, extre mities motor stren gth 5/5 Neurologic /psych: Does not a nswer any question s Skin: no rashes , normal color, wa rm/dry, excoriated area near groin b ut no open wounds visualized Results & Data Results & Data Vital Signs (Past 12 Hours) Vital Signs Temp Pulse Resp BP Pulse Ox O2 Del Method 11/10/22 14:37 36.8 C 90 16 101/68 95 Room Air 11/10/22 07:51 36.5 C 96 H 16 116/77 96 Room Air
[2022-11-11 07:24] LABS: BUN Creatinine Ratio 17.2 (10-20); Calcium 8.9 mg/dl (8.6-10.3); Creatinine Clr Calc Pharmacy 116.7 ml/min; Est GFR (African American) 108.4 ml/min; Est GFR (Non-African American) 93.6 ml/min; Magnesium 2.2 mg/dl (1.7-2.4); Phosphorus 3.3 mg/dl (2.5-4.9); Potassium 3.9 mmol/L (3.5-5.1)
[2022-11-11] MEDS: TRIMETHOPRIM/POLYMYXIN B OP SCH ×4 (08:58→20:03)
[2022-11-11] MEDS: CEROVITE ADV FORMULA TAB PO SCH (08:58)
[2022-11-11] MEDS: ADVANCED PROBIOTIC 1250 MG CAPSULE PO SCH (08:58)
[2022-11-11] MEDS: VENLAFAXINE HCL XR 150 MG CAPXR PO SCH (08:58)
[2022-11-11] MEDS: risperiDONE 1 MG TABLET PO SCH ×2 (08:58→20:03)
--- NOTE | 2022-11-11 16:21 | Hospitalist Progress Note ---
Date of Service November 11, 2022 Assessment & Plan (1) Schizoaffective disorder: (2) Unable to care for self: (3) Starvation ketoacidosis: Plan 42-year-old male with PMH of schizoaffective disorder, catatonia who presents after being found minimally responsive and covered in feces on a welfare check. He was brought to the hospital. Found to have starvation ketosis with anion gap metabolic acidosis. He is being managed for the following: Schizoaffective disorder with catatonia Patient was admitted for 5 months from 02/2021 to 06/2021 in psychiatric unit here in the hospital. Had neurology evaluation including MRI brain which was normal. CT head without acute intracranial abnormality, tox screen negative Current presentation similar as well. Patient deemed not caring for self/not moving around much, pt/ot eval Psychiatry evaled; ativan po prn, Effexor and risperidone started per psychiatry. Severe malnutrition Vitamin D deficiency: Vitamin D level 11.8 Patient with inadequate food/nutrient intake and severe wt loss, inability to take self-care. Pt has had a wt loss of around 15% within the past 6 months Dietitian evaluated, continue with multivitamins with minerals. Patient also started on vitamin D supplement, continue. Again poor food intake today. Metabolic acidosis likely due to starvation ketosis. s/p resuscitation. resolved. Pneumonia/sepsis rule out: procal neg Bl Cx: is likely contaminant, serology neg for resistance; pt afebrile, dc'd atb 11/07. At presentation: Found to have anion gap metabolic acidosis. Urine ketones positive. Chest x-ray similar to last admission. Leukocytosis likely due to hemoconcentration/stress-induced Conjunctivitis, assume bacterial : Started on tx for assumed bacterial conjunctivitis given purulent discharge from eyes and presentation; c/w same. DVT Ppx: SQ lovenox Code status: FULL PCP: [place] Dispo: pt/ot, CM to assist; d/w cm for safe dispo need. Per RN, -- per pt's [facility] CM, pt's apt is considered biohazard and not suitable for living as of now. Admission and Anticipated Discharge Date Admission Date: November 03, 2022 Subjective Patient seen and examined at bedside as a follow-up of schizoaffective disorder/chronic condition with acute exacerbation, unable to care for self, concern for blood infection. He is lying in the bed. awake, sitting up in chair but non coversive. Per RN, no new acute event overnight, denying med/food/self care. If w/ continuous no po intake, consider short duration ivf. ROS not able. Physical Exam Physical Exam: General Appearance :Lying on the bed comfortably.slee ping. Respiratory :normal respirato ry effort, lungs c lear to auscultati on, no wheeze, ral es, rhonchi. No a ccessory muscle us e Cardiovascular: tachycardic rate, regular rhythm, n o murmur, normal p eripheral pulses, no BLE edema. Vess els: no JVD Chest: normal inspectio n of chest Abdomen /GI: normal bowel sounds, soft, non tender, no hepatos plenomegaly Extrem ities/Musculoskele eliz: no cyanosis or clubbing, extre mities motor stren gth 5/5 Neurologic /psych: Does not a nswer any question s Skin: no rashes , normal color, wa rm/dry, excoriated area near groin b ut no open wounds visualized Results & Data Results & Data Vital Signs (Past 12 Hours) Vital Signs Temp Pulse Resp BP BP Pulse Ox O2 Del Method 11/11/22 15:36 109/81 11/11/22 14:31 37.1 C 81 18 90/50 L 94 Room Air 11/11/22 07:40 Room Air 11/11/22 07:00 37 C 81 16 119/77 94 Room Air
[2022-11-12] MEDS: CEROVITE ADV FORMULA TAB PO SCH (11:20)
[2022-11-12] MEDS: ERGOCALCIFEROL 50,000 UNITS 1250 MCG CAP PO SCH (11:20)
[2022-11-12] MEDS: ADVANCED PROBIOTIC 1250 MG CAPSULE PO SCH (11:20)
[2022-11-12] MEDS: VENLAFAXINE HCL XR 150 MG CAPXR PO SCH (11:21)
[2022-11-12] MEDS: risperiDONE 1 MG TABLET PO SCH ×2 (11:21→20:04)
[2022-11-12] MEDS: TRIMETHOPRIM/POLYMYXIN B OP SCH ×4 (11:21→20:06)
--- NOTE | 2022-11-12 17:33 | Hospitalist Progress Note ---
Date of Service November 12, 2022 Assessment & Plan (1) Schizoaffective disorder: (2) Unable to care for self: (3) Starvation ketoacidosis: Plan 42-year-old male with PMH of schizoaffective disorder, catatonia who presents after being found minimally responsive and covered in feces on a welfare check. He was brought to the hospital. Found to have starvation ketosis with anion gap metabolic acidosis. He is being managed for the following: Discussed with the caregiver The patient has schizoaffective disorder with 2 recent admissions to [facility] psychiatric unit, 1 in June and other 1 the end of July and beginning of August. Each time that admission was preceded by about 2 to 3 weeks of noncompliance with medications and followed by deterioration of his symptoms and cognition During his better time he actually communicates and tries to do household activities If he continues to take his medications regularly most likely he will not have this worsening of symptoms and will require any hospitalization/psychiatric care Discussed with the nurses in detail and was advised to give his medications regularly as best as possible Schizoaffective disorder with catatonia Patient was admitted for 5 months from 02/2021 to 06/2021 in psychiatric unit here in the hospital. Had neurology evaluation including MRI brain which was normal. CT head without acute intracranial abnormality, tox screen negative Current presentation similar as well. Patient deemed not caring for self/not moving around much, pt/ot eval Psychiatry evaled; ativan po prn, Effexor and risperidone started per psychiatry. Remains noncommunicative but alert and awake with unremarkable labs and imaging studies Been having incontinence of bladder and bowel and not been eating and drinking Discussed with the nurses and was advised to push food and medications Expected to improve-psychiatrist signed off and was advised to have penitentiary placement Severe malnutrition Vitamin D deficiency: Vitamin D level 11.8 Patient with inadequate food/nutrient intake and severe wt loss, inability to take self-care. Pt has had a wt loss of around 15% within the past 6 months Dietitian evaluated, continue with multivitamins with minerals. Patient also started on vitamin D supplement, continue. Again poor food intake today. Metabolic acidosis likely due to starvation ketosis. s/p resuscitation. resolved. Pneumonia/sepsis rule out: procal neg Bl Cx: is likely contaminant, serology neg for resistance; pt afebrile, dc'd atb 11/07. At presentation: Found to have anion gap metabolic acidosis. Urine ketones positive. Chest x-ray similar to last admission. Leukocytosis likely due to hemoconcentration/stress-induced Conjunctivitis, assume bacterial : Started on tx for assumed bacterial conjunctivitis given purulent discharge from eyes and presentation; c/w same. DVT Ppx: SQ lovenox Code status: FULL PCP: [place] Dispo: pt/ot, CM to assist; d/w cm for safe dispo need. Per RN, -- per pt's [facility] CM, pt's apt is considered biohazard and not suitable for living as of now. Admission and Anticipated Discharge Date Admission Date: November 03, 2022 Subjective 11/12/2022 The patient was seen and examined in medical floor He remains alert and awake but has not been talking or responding to any vocal commands Noted to be incontinent of urine and bowel and has not been eating or drinking Not been taking his medications Review of Systems Review of Systems: Unobtainable due to cognitive status Physical Exam Physical Exam: Lying in bed without any acute distress Constitutional: well developed, well nourished, + ill appearing and + obese Eyes: PERRL, conjunctivae normal, anicteric sclerae ENMT: external ear and nose normal, oropharynx normal Neck: trachea midline, no thyromegaly Respiratory: no respiratory distress Auscultation: lungs clear to auscultation bilaterally Cardiovascular: Rate/Rhythm: regular rate and regular rhythm; not tachycardic Heart Sounds: normal S1, normal S2 and + murmur Extremities: no edema Gastrointestinal (Abdomen): Inspection/Auscultation: normal bowel sounds; abdomen not distended Percussion/Palpation: abdomen soft; abdomen nontender Musculoskeletal: No acute arthritis involving any of the joint Neurologic: normal touch/pain/proprioception and moves all extremities; no focal motor deficits Alert and awake. Not communicating, not responding to vocal commands, not been aggressive, remains noncommunicating Lymphatic: no cervical or axillary lymphadenopathy Results & Data Results & Data Vital Signs (Past 12 Hours) Vital Signs Temp Pulse Resp BP BP Pulse Ox O2 Del Method 11/12/22 14:42 36.9 C 80 16 110/77 96 Room Air 11/12/22 07:58 37.1 C 80 16 120/77 97 Room Air Medications Administered Current Inpatient Medications Acetaminophen (Acetaminophen 325 Mg Tab) 650 mg PO Q4H PRN PRN Reason: Pain or Fever Stop: 12/03/22 18:56 Ergocalciferol (Ergocalciferol 50,000 Units 1250 Mcg Cap) 50,000 units PO Q7D@0900 [facility] Stop: 12/24/22 09:01 Last Admin: 11/12/22 11:20 Dose: Not Given Lactobacillus Acidophilus (Advanced Probiotic 1250 Mg Capsule) 2 cap PO DAILY [facility] Stop: 12/05/22 13:29 Last Admin: 11/12/22 11:20 Dose: Not Given Lorazepam (Lorazepam 1 Mg Tab) 1 mg PO Q6H PRN PRN Reason: Anxiety Stop: 12/08/22 17:08 Multivitamins/Minerals (Cerovite Adv Formula Tab) 1 tab PO QAM [facility] Stop: 12/06/22 08:59 Last Admin: 11/12/22 11:20 Dose: Not Given Ondansetron HCl (Ondansetron Inj 2 Mg/Ml 2 Ml Vial) 4 mg IV Q6H PRN PRN Reason: Nausea Stop: 12/03/22 18:56 Polyethylene Glycol (Polyethylene (Miralax) 17 Gm Pack) 17 gm PO DAILY PRN PRN Reason: Constipation Stop: 12/03/22 18:56 Polymyxin/Trimethoprim Sulfate (Trimethoprim/Polymyxin B) 2 drops OP QID [facility] Stop: 12/03/22 20:59 Last Admin: 11/12/22 16:05 Dose: Not Given Risperidone (Risperidone 1 Mg Tablet) 1 mg PO BID [facility] Stop: 12/07/22 20:59 Last Admin: 11/12/22 11:21 Dose: Not Given Venlafaxine HCl (Venlafaxine Hcl Xr 150 Mg Capxr) 150 mg PO QAM [facility] Stop: 12/05/22 13:14 Last Admin: 11/12/22 11:21 Dose: Not Given
--- NOTE | 2022-11-12 21:28 | Psychiatric Progress Note ---
Date of Service November 12, 2022 Impression / Recommendations Impression David Diaz is a 42 yo man with a history of schizoaffective disorder admitted medically for severe decompensation with malnutrition and inability to care for himself most likely due to acute exacerbation of his schizoaffective disorder with current episode of severe neurovegetative depression with evidence of paranoia. On an outpatient 304 commitment that expires 12/09/2022. 11/12/2022: On reassessment today, no substantial difference is seen. There are reliable reports of his speaking, moving, eating, etc. during the interval. On this evening's visit pt lies in bed with his eyes open. He follows me with his eyes as I enter the room and initially responds to my greeting with some vocalization that I take to be speech but can't hear. After I move very close in an attempt to be able to hear, he no longer makes any vocalizations. Electrolyte panel yesterday was completely normal, which I'm at a loss to explain in a patient who's not getting parenteral nutrition or fluids other than by concluding that he is eating and drinking adequately to meet his needs. It seems fairly clear that the medical unit is not the most appropriate level of care for this patient. I'm told that his outpatient senior case manager believes he needs inpatient psychiatric care. That's a rational thing to believe, but I'm unable to reach any conclusion about this that's different from that outlined in my note of 11/08/2022. That is, that while it's pretty obvious that there are severe psychiatric problems here and that his function at home has been very poor, it's not at all clear what sort of psychiatric treatment would be likely to help and there's good evidence that previous inpatient treatment accomplished little despite almost unbelievable efforts. 11/08/2022: Pt with a history of previous very prolonged (131-day) admission to the psychiatric unit here with behaviors entirely consistent with the current presentation in that he at times appeared withdrawn and nonresponsive and at other times would engage. He exhibited some provocative behaviors typically involving bodily wastes (as an example, showered when staff insisted, but smeared the velazquez of the shower with feces then notified staff that now they would have to clean that up). Just as then, during the current medical admission any evidence of "catatonia" has been very equivocal with inconsistent response to medication as well as clearly volitional behavior when superficially "catatonic" (for example, withdrawing an arm during venipuncture). His self-care at home has been concerning in that he often chooses to eliminate in bed or not to bathe and is not consistent about using medication. Although he has often been found in bed soiled with feces or urine, it has curiously been noted that his door is often unlocked and even partially open at times when home visits are planned. Pt did not respond in any detectable way to anything I said. My physical exam showed an absence of the expected oculocortical ("doll's eyes") reflex - his eyes, with eyelids I had to hold open, did not change position relative to his head as I moved his head from side to side. This would typically only be seen with significant brainstem or pontine injury. I also noted some active resistance to my pulling his eyelids open. A "hand-drop" test, in which I lifted his hand and inspected a dressing on his left wrist, explaining to the psychiatric nurse who accompanied me that I wanted "to check out this dressing", then suddenly releasing his hand when it was directly over his face, resulted in a slow and almost balletic descent of the hand and arm to a graceful position palm-up above his head. While lifting the arm, it seemed limp and I detected neither resistance nor assistance in lifting it. In appearance, pt is well-groomed with what appears to be recently-styled hair and does not appear shaggy nor unkempt. He appears plump, rather than looking gaunt as one may expect of someone who hasn't been eating. His extremities do not exhibit any wasting or disuse atrophy. Review of labs indicates ketoacidosis on admission as well as a history of ketonuria over the course of many hospital visits. Nonfasting blood glucose was somewhat elevated on presentation. My conclusion is that apparent "catatonia" is factitious at this time. This implies intentionally-produced symptoms but not necessarily that this is the result of a conscious process, nor is it the same as malingering. I can't identify any clear external reward ("secondary gain") nor was any found during his extended prior psychiatric stay. In this case, I believe the gain is "primary", that is, a psychological need to assume the "sick role" and to continue to be seen as ill. There is good evidence that pt can, and does, move volitionally as well as decent indirect evidence that he's not actually failing to care for himself altogether. His failures of personal care are fairly dramatic and infantile (lying in or smearing himself with feces, for example) and it seems he takes measures to ensure that such failures are noted. None of this is to say that he doesn't have a schizoaffective disorder (a condition characterized by concurrent symptoms of a major mood disorder and s chizophrenia, with a history of at least 2 weeks of psychotic symptoms in the absence of major mood symptoms; it is definitionally inconsistent with concurrent diagnoses of schizophrenia or major mood disorders such as major depressive disorder or bipolar disorder, but we can certainly diagnose major mood episodes, such as a manic episode or major depressive episode in the course of schizoaffective disorder). Nor is it to say that he may not at times have non-factitious catatonic episodes. The thorniest question is about whether pt has the ability to care for himself. I would offer that I do think he has the ability to care for himself but often chooses not to in order that others must care for him. It's not at all clear how far he might push this, since he seems to act with very high confidence that "someone" will notice his apparent needs and step in to intervene. He has demonstrated a willingness to go to lengths that most adults won't in terms of prolonged contact with his own bodily wastes and has in the past voiced very clear awareness of this and of his expectations of how others should respond to that. Ultimately, it appears clear that very prolonged psychiatric hospitalization, with care from different psychiatrists over that period and a range of treatment approaches that each were applied over significant stretches of time did not result in much change or lasting benefit. It transpires that the suspected sepsis was erroneous, and his acidosis has been addressed. The hospitalist has expressed confidence that pt is medically stable. In my opinion, pt is also psychiatrically stable in the sense that his chronic symptoms are largely unchanged and appear to respond to treatment to a minimal degree. He has been functioning very marginally with occasional worsening that has led to several ED visits but usually has not needed medical admission. It seems to me that he has little benefit to gain from psychiatric hospitalization other than shelter care. Unfortunately, he may end up requiring shelter care but I don't see much likelihood that inpatient psychiatric treatment would eliminate or reduce the chance of that happening. 11/07/2022: Similar to his prior hospitalization on [facility] in 2020 the question of catatonia remains murky given that he showed a fairly dramatic response to IV ativan with initial dose and some increase in engagement after increased dose yesterday but then over last three days has reverted to some more neurovegetative but clearly volitionally withdrawn behaviors. He is eating intermittently and at times engaging but is selective about this. Given decreasing concern for catatonia will increase risperidone in effort to address possible internal stimuli driven symptoms leading to his withdrawn state but will continue with IV ativan for now. 11/06/2022: Similar to his prior hospitalization on [facility] in 2020 the question of catatonia remains murky given that he showed a fairly dramatic response to IV ativan with initial dose including suddenly talking with RNs and began eating and drinking but then over last two days has reverted to some more neurovegetative but clearly volitionally withdrawn behaviors such as covering himself with a blanket and refusing to talk and pulling his arm away when RN attempted to give him IV antibiotic. He did accept all doses of Effexor and risperidone which were started yesterday. Will increase ativan in case of any persisting catatonia vs neurovegetative symptoms given worsened mutism today and not eating breakfast today. 11/05/2022: Similar to his prior hospitalization on [facility] in 2020 the question of catatonia remains murky given that he showed a fairly dramatic response to IV ativan yesterday including suddenly talking with RNs and began eating and drinking but then today reverted back to some more neurovegetative but clearly volitionally withdrawn behaviors such as covering himself with a blanket and refusing to talk and pulling his arm when RN attempted to give him IV antibiotic. However, given yesterday's positive response and his agreement with continuing ativan will continue with this for now. Encouragingly he is talking today and participated in an interview and has been eating, drinking and independently using the bathroom. Does have some paranoia. He consents to starting Effexor XR for depression, which he was taking while at the [facility] in September, and starting risperidone as he declines restarting haldol (which was also used with some success in September while he was at the [facility]). Focused on wanting to go home but concerns remain about his ability to care for himself given state he was brought to the hospital in so will continue to monitor his po intake, ba throom use, and behavioral organization. In discussing the antibiotic he raises concerns that it will also kill useful bacteria and thus why he refused. Attempted to provide some education about the importance of antibiotic use with positive blood cultures and likely option for addition of a probiotic. He agreed to discuss this further with the hospitalist. For now seems to be showing decision making around his refusal however unclear how much he was educated on risks of ongoing refusal and if this would be life threatening then decision making capacity would need to be re-evaluated as he would need to be able to speak to those risks. (1) Schizoaffective disorder, depressive type: Plan 11/12/2022: I don't have any recommendations beyond those in my previous note. 11/08/2022: * taper lorazepam due to lack of clear benefit, substantial risk of sedation * continue venlafaxine 150 mg daily for depression and anxiety symptoms * continue risperidone 1 mg BID for psychosis * would not likely benefit from psychiatric admission at this time Suicide Risk Level Suicide Risk Level: Low (q15 min observation checks) Suicide Risk Level Comments: pt has voiced no suicidal thoughts Interval History Identifying Information David Diaz is a 42 yo man with a history of schizoaffective disorder admitted medically for severe decompensation with malnutrition, sepsis and metabolic acidosis. Psychiatry was consulted for recommendations given his psychiatric symptoms and 302 commitment. Chief Complaint Pt vocalized, but I wasn't able to make out any words Subjective Subjective Patient was seen & assessed and interval progress reviewed in a ltidisciplinary team meeting with psychiatric liaison nursing and social work. For details, see the "Impression" section below. Physical Exam Psychiatric Orientation: alert; + uncooperative Apperance: appropriately dressed, appropriately groomed and + disheveled Eye Contact: + poor eye contact Motor Behavior: no abnormal motor movements Speech: + mute Affect: + flat affect cannot be determined cannot be determined cannot be determined cannot be determined cannot be determined cannot be determined Cognition: attention grossly intact; + language not intact memory cannot be determined Estimated Intelligence: consistent with education level (by previous assessment) Insight: + severely impaired insight Judgment: + severely impaired judgement Vital Signs (Past 24 Hours) Last Vital Signs Temp 36.9 C 11/12/22 20:49 Pulse 71 11/12/22 20:49 Resp 16 11/12/22 20:49 BP 126/78 11/12/22 20:49 Pulse Ox 97 11/12/22 20:49 O2 Del Method Room Air 11/12/22 20:49 Results & Data ([facility]) Current Inpatient Medications Current Inpatient Medications: Current Inpatient Medications Acetaminophen (Acetaminophen 325 Mg Tab) 650 mg PO Q4H PRN PRN Reason: Pain or Fever Stop: 12/03/22 18:56 Ergocalciferol (Ergocalciferol 50,000 Units 1250 Mcg Cap) 50,000 units PO Q7D@0900 [facility] Stop: 12/24/22 09:01 Last Admin: 11/12/22 11:20 Dose: Not Given Lactobacillus Acidophilus (Advanced Probiotic 1250 Mg Capsule) 2 cap PO DAILY [facility] Stop: 12/05/22 13:29 Last Admin: 11/12/22 11:20 Dose: Not Given Lorazepam (Lorazepam 1 Mg Tab) 1 mg PO Q6H PRN PRN Reason: Anxiety Stop: 12/08/22 17:08 Multivitamins/Minerals (Cerovite Adv Formula Tab) 1 tab PO QAM [facility] Stop: 12/06/22 08:59 Last Admin: 11/12/22 11:20 Dose: Not Given Ondansetron HCl (Ondansetron Inj 2 Mg/Ml 2 Ml Vial) 4 mg IV Q6H PRN PRN Reason: Nausea Stop: 12/03/22 18:56 Polyethylene Glycol (Polyethylene (Miralax) 17 Gm Pack) 17 gm PO DAILY PRN PRN Reason: Constipation Stop: 12/03/22 18:56 Polymyxin/Trimethoprim Sulfate (Trimethoprim/Polymyxin B) 2 drops OP QID [facility] Stop: 12/03/22 20:59 Last Admin: 11/12/22 20:06 Dose: Not Given Risperidone (Risperidone 1 Mg Tablet) 1 mg PO BID [facility] Stop: 12/07/22 20:59 Last Admin: 11/12/22 20:04 Dose: 1 mg Venlafaxine HCl (Venlafaxine Hcl Xr 150 Mg Capxr) 150 mg PO QAM OG Stop: 12/05/22 13:14 Last Admin: 11/12/22 11:21 Dose: Not Given
[2022-11-13] MEDS: risperiDONE 1 MG TABLET PO SCH ×3 (02:20→20:09)
[2022-11-13] MEDS: VENLAFAXINE HCL XR 150 MG CAPXR PO SCH (08:51)
[2022-11-13] MEDS: TRIMETHOPRIM/POLYMYXIN B OP SCH ×4 (08:52→20:06)
[2022-11-13] MEDS: CEROVITE ADV FORMULA TAB PO SCH (08:52)
[2022-11-13] MEDS: ADVANCED PROBIOTIC 1250 MG CAPSULE PO SCH (08:52)
--- NOTE | 2022-11-13 16:43 | Hospitalist Progress Note ---
Date of Service November 13, 2022 Assessment & Plan (1) Schizoaffective disorder: (2) Unable to care for self: (3) Starvation ketoacidosis: Plan 42-year-old male with PMH of schizoaffective disorder, catatonia who presents after being found minimally responsive and covered in feces on a welfare check. He was brought to the hospital. Found to have starvation ketosis with anion gap metabolic acidosis. He is being managed for the following: Discussed with the caregiver The patient has schizoaffective disorder with 2 recent admissions to [facility] psychiatric unit, 1 in June and other 1 the end of July and beginning of August. Each time that admission was preceded by about 2 to 3 weeks of noncompliance with medications and followed by deterioration of his symptoms and cognition During his better time he actually communicates and tries to do household activities If he continues to take his medications regularly most likely he will not have this worsening of symptoms and will require any hospitalization/psychiatric care Discussed with the nurses in detail and was advised to give his medications regularly as best as possible accounting systems manager is heavily involved to find a place for him Signed 302 paper for continued care in a inpatient psych facility Schizoaffective disorder with catatonia Patient was admitted for 5 months from 02/2021 to 06/2021 in psychiatric unit here in the hospital. Had neurology evaluation including MRI brain which was normal. CT head without acute intracranial abnormality, tox screen negative Current presentation similar as well. Patient deemed not caring for self/not moving around much, pt/ot eval Psychiatry evaled; ativan po prn, Effexor and risperidone started per psychiatry. Remains noncommunicative but alert and awake with unremarkable labs and imaging studies Been having incontinence of bladder and bowel and not been eating and drinking Discussed with the nurses and was advised to push food and medications Expected to improve-psychiatrist signed off and was advised to have snf placement We will discuss with the psychiatrist for any parenteral medications can be given for his schizoaffective disorder and catatonia Severe malnutrition Vitamin D deficiency: Vitamin D level 11.8 Patient with inadequate food/nutrient intake and severe wt loss, inability to take self-care. Pt has had a wt loss of around 15% within the past 6 months Dietitian evaluated, continue with multivitamins with minerals. Patient also started on vitamin D supplement, continue. Again poor food intake today. Discussed with the nurse to push and keep trying to feed him Metabolic acidosis likely due to starvation ketosis. s/p resuscitation. resolved. Pneumonia/sepsis rule out: procal neg Bl Cx: is likely contaminant, serology neg for resistance; pt afebrile, dc'd atb 11/07. At presentation: Found to have anion gap metabolic acidosis. Urine ketones positive. Chest x-ray similar to last admission. Leukocytosis likely due to hemoconcentration/stress-induced Conjunctivitis, assume bacterial : Started on tx for assumed bacterial conjunctivitis given purulent discharge from eyes and presentation; c/w same. DVT Ppx: SQ lovenox Code status: FULL PCP: [place] Dispo: pt/ot, CM to assist; d/w cm for safe dispo need. Per RN, -- per pt's [facility] CM, pt's apt is considered biohazard and not suitable for living as of now. Admission and Anticipated Discharge Date Admission Date: November 03, 2022 Subjective 11/12/2022 The patient was seen and examined in medical floor He remains alert and awake but has not been talking or responding to any vocal commands Noted to be incontinent of urine and bowel and has not been eating or drinking Not been taking his medications 11/13/2022 The patient was seen and examined in medical floor He remains hemodynamically stable but has not been communicating or responding to vocal commands Remains in catatonic state but not being aggressive and/or noncooperative Has not been taking his medications and/or eating reasonably Physical Exam Physical Exam: Lying in bed without any acute distress Constitutional: well developed, well nourished, + ill appearing and + obese Eyes: PERRL, conjunctivae normal, anicteric sclerae ENMT: external ear and nose normal, oropharynx normal Neck: trachea midline, no thyromegaly Respiratory: no respiratory distress Auscultation: lungs clear to auscultation bilaterally Cardiovascular: Rate/Rhythm: regular rate and regular rhythm; not tachycardic Heart Sounds: normal S1, normal S2 and + murmur Extremities: no edema Gastrointestinal (Abdomen): Inspection/Auscultation: normal bowel sounds; abdomen not distended Percussion/Palpation: abdomen soft; abdomen nontender Musculoskeletal: No acute arthritis involving any of the joint Neurologic: normal touch/pain/proprioception and moves all extremities; no focal motor deficits Lymphatic: no cervical or axillary lymphadenopathy Results & Data Results & Data Vital Signs (Past 12 Hours) Vital Signs Temp Pulse Resp BP Pulse Ox O2 Del Method 11/13/22 08:00 37.2 C 73 16 107/72 94 Room Air
--- NOTE | 2022-11-13 19:26 | Psychiatric Progress Note ---
Date of Service November 13, 2022 Impression / Recommendations Impression David Diaz is a 42 yo man with a history of schizoaffective disorder admitted medically for severe decompensation with malnutrition and inability to care for himself most likely due to acute exacerbation of his schizoaffective disorder with current episode of severe neurovegetative depression with evidence of paranoia. On an outpatient 304 commitment that expires 12/09/2022. 11/13/2022: Thanks so much for asking for follow-up psychiatric consultation on Mr. Diaz focusing on medication recommendations. There are no new or different findings in the 19 hours since I saw him last night. I remain unable to identify any treatment that seems likely to work. Unfortunately, as you know, not everything is treatable. Even looking at the possibility of trying things that dont seem likely to help just on the off chance of stumbling upon a solution (which carries real risk of worsened outcomes due to significant side effect risks), hes had an particularly large number of previous failed medication trials so things that only barely made any sort of sense to begin with have already been tried. I'm still making my way through the very extensive record of his 5-month previous psychiatric stay and keep finding myself impressed at the lengths to which his clinicians went and the broad range of interventions they tried. I find it increasingly difficult to believe we're likely to find any stones they left unturned. Hes currently prescribed risperidone orally (and theres no injectable form). Sometimes he takes it, sometimes not. Im not particularly concerned about his not taking it in the absence of any evidence of benefit (which would actually be a convincing reason to stop it), and dont envision much likelihood that his using it consistently would lead to any clinical improvement. 11/12/2022: On reassessment today, no substantial difference is seen. There are reliable reports of his speaking, moving, eating, etc. during the interval. On this evening's visit pt lies in bed with his eyes open. He follows me with his eyes as I enter the room and initially responds to my greeting with some vocalization that I take to be speech but can't hear. After I move very close in an attempt to be able to hear, he no longer makes any vocalizations. Electrolyte panel yesterday was completely normal, which I'm at a loss to explain in a patient who's not getting parenteral nutrition or fluids other than by concluding that he is eating and drinking adequately to meet his needs. It seems fairly clear that the medical unit is not the most appropriate level of care for this patient. I'm told that his outpatient pillowcase maker believes he needs inpatient psychiatric care. That's a rational thing to believe, but I'm unable to reach any conclusion about this that's different from that outlined in my note of 11/08/2022. That is, that while it's pretty obvious that there are severe psychiatric problems here and that his function at home has been very poor, it's not at all clear what sort of psychiatric treatment would be likely to help and there's good evidence that previous inpatient treatment accomplished little despite almost unbelievable efforts. 11/08/2022: Pt with a history of previous very prolonged (131-day) admission to the psychiatric unit here with behaviors entirely consistent with the current presentation in that he at times appeared withdrawn and nonresponsive and at ot her times would engage. He exhibited some provocative behaviors typically involving bodily wastes (as an example, showered when staff insisted, but smeared the velazquez of the shower with feces then notified staff that now they would have to clean that up). Just as then, during the current medical admission any evidence of "catatonia" has been very equivocal with inconsistent response to medication as well as clearly volitional behavior when superficially "catatonic" (for example, withdrawing an arm during venipuncture). His self-care at home has been concerning in that he often chooses to eliminate in bed or not to bathe and is not consistent about using medication. Although he has often been found in bed soiled with feces or urine, it has curiously been noted that his door is often unlocked and even partially open at times when home visits are planned. Pt did not respond in any detectable way to anything I said. My physical exam showed an absence of the expected oculocortical ("doll's eyes") reflex - his eyes, with eyelids I had to hold open, did not change position relative to his head as I moved his head from side to side. This would typically only be seen with significant brainstem or pontine injury. I also noted some active resistance to my pulling his eyelids open. A "hand-drop" test, in which I lifted his hand and inspected a dressing on his left wrist, explaining to the psychiatric nurse who accompanied me that I wanted "to check out this dressing", then suddenly releasing his hand when it was directly over his face, resulted in a slow and almost balletic descent of the hand and arm to a graceful position palm-up above his head. While lifting the arm, it seemed limp and I detected neither resistance nor assistance in lifting it. In appearance, pt is well-groomed with what appears to be recently-styled hair and does not appear shaggy nor unkempt. He appears plump, rather than looking gaunt as one may expect of someone who hasn't been eating. His extremities do not exhibit any wasting or disuse atrophy. Review of labs indicates ketoacidosis on admission as well as a history of ketonuria over the course of many hospital visits. Nonfasting blood glucose was somewhat elevated on presentation. My conclusion is that apparent "catatonia" is factitious at this time. This implies intentionally-produced symptoms but not necessarily that this is the result of a conscious process, nor is it the same as malingering. I can't identify any clear external reward ("secondary gain") nor was any found during his extended prior psychiatric stay. In this case, I believe the gain is "primary", that is, a psychological need to assume the "sick role" and to continue to be seen as ill. There is good evidence that pt can, and does, move volitionally as well as decent indirect evidence that he's not actually failing to care for himself altogether. His failures of personal care are fairly dramatic and infantile (lying in or smearing himself with feces, for example) and it seems he takes measures to ensure that such failures are noted. None of this is to say that he doesn't have a schizoaffective disorder (a condition characterized by concurrent symptoms of a major mood disorder and schizophrenia, with a history of at least 2 weeks of psychotic symptoms in the absence of major mood symptoms; it is definitionally inconsistent with concurrent diagnoses of schizophrenia or major mood disorders such as major depressive disorder or bipolar disorder, but we can certainly diagnose major mood episodes, such as a manic episode or major depressive episode in the course of schizoaffective disorder). Nor is it to say that he may not at times have non-factitious catatonic episodes. The thorniest question is about whether pt has the ability to care for himself. I would offer that I do think he has the ability to care for himself but often chooses not to in order that others must care for him. It's not at all clear how far he might push this, since he seems to act with very high confidence that "someone" will notice his apparent needs and step in to intervene. He has demonstrated a willingness to go to lengths that most adults won't in terms of prolonged contact with his own bodily wastes and has in the past voiced very clear awareness of this and of his expectations of how others should respond to that. Ultimately, it appears clear that very prolonged psychiatric hospitalization, with care from different psychiatrists over that period and a range of treatment approaches that each were applied over significant stretches of time did not result in much change or lasting benefit. It transpires that the suspected sepsis was erroneous, and his acidosis has been addressed. The hospitalist has expressed confidence that pt is medically stable. In my opinion, pt is also psychiatrically stable in the sense that his chronic symptoms are largely unchanged and appear to respond to treatment to a minimal degree. He has been functioning very marginally with occasional worsening that has led to several ED visits but usually has not needed medical admission. It seems to me that he has little benefit to gain from psychiatric hospitalization other than correction care. Unfortunately, he may end up requiring correction care but I don't see much likelihood that inpatient psychiatric treatment would eliminate or reduce the chance of that happening. 11/07/2022: Similar to his prior hospitalization on [facility] in 2020 the question of catatonia remains murky given that he showed a fairly dramatic response to IV ativan with initial dose and some increase in engagement after increased dose yesterday but then over last three days has reverted to some more neurovegetative but clearly volitionally withdrawn behaviors. He is eating intermittently and at times engaging but is selective about this. Given decreasing concern for catatonia will increase risperidone in effort to address possible internal stimuli driven symptoms leading to his withdrawn state but will continue with IV ativan for now. 11/06/2022: Similar to his prior hospitalization on [facility] in 2020 the question of catatonia remains murky given that he showed a fairly dramatic response to IV ativan with initial dose including suddenly talking with RNs and began eating and drinking but then over last two days has reverted to some more neurovegetative but clearly volitionally withdrawn behaviors such as covering himself with a blanket and refusing to talk and pulling his arm away when RN attempted to give him IV antibiotic. He did accept all doses of Effexor and risperidone which were started yesterday. Will increase ativan in case of any persisting catatonia vs neurovegetative symptoms given worsened mutism today and not eating breakfast today. 11/05/2022: Similar to his prior hospitalization on [facility] in 2020 the question of catatonia remains murky given that he showed a fairly dramatic response to IV ativan yesterday including suddenly talking with RNs and began eating and drinking but then today reverted back to some more neurovegetative but clearly volitionally withdrawn behaviors such as covering himself with a blanket and refusing to talk and pulling his arm when RN attempted to give him IV antibiotic. However, given yesterday's positive response and his agreement with continuing ativan will continue with this for now. Encouragingly he is talking today and participated in an interview and has been eating, drinking and independently using the bathroom. Does have some paranoia. He consents to starting Effexor XR for depression, which he was taking while at the [facility] in September, and starting risperidone as he declines restarting haldol (which was also used with some success in September while he was at the [facility]). Focused on wanting to go home but concerns remain about his ability to care for himself given state he was brought to the hospital in so will continue to monitor his po intake, bathroom use, and behavioral organization. In discussing the antibiotic he raises concerns that it will also kill useful bacteria and thus why he refused. Attempted to provide some education about the importance of antibiotic use with positive blood cultures and likely option for addition of a probiotic. He agreed to discuss this further with the hospitalist. For now seems to be showing decision making around his refusal however unclear how much he was educated on risks of ongoing refusal and if this would be life threatening then decision making capacity would need to be re-evaluated as he would need to be able to speak to those risks. (1) Schizoaffective disorder, depressive type: Plan 11/13/2022: If venlafaxine isn't being accepted fairly consistently, then there's no point administering it since under those circumstances there's hardly any chance of benefit and could only lead to side effects. It should therefore be stopped. Ordinarily we'd taper that medication, but if it hasn't been being taken consistently then there's not point in trying to do this. I don't think antidepressant medication is a priority both because there's good reason to believe no medication is likely to change things much and because I don't have any reason to believe pt is depressed in the sense of syndromic major depres jimenez. If for some reason you are feeling highly-motivated to see if consistent medication use would improve anything, risperidone is available in an oral- dissolving form (M-Tab) that is intentionally hard to spit out and doesnt have to be swallowed to be absorbed and could just be inserted buccally twice a day (which obviously carries some risk of clinical personnel being bitten under some circumstances). If you elect to do this, I recommend you monitor vigilantly for side effects, including malignant catatonia (neuroleptic malignant syndrome) and medication- induced dystonia or pseudo-Parkinsonism (extrapyramidal symptoms) and remain mindful that hoped-for benefit should be sufficiently reasonably likely to warrant those risks. When benefits are unlikely, risk/benefit considerations would suggest not exposing the pt to such medication. I think with the low likelihood of response to any medication, the additional risks of injectable medication would make a trial of IM antipsychotic clearly contraindicated. 11/12/2022: I don't have any recommendations beyond those in my previous note. 11/08/2022: * taper lorazepam due to lack of clear benefit, substantial risk of sedation * continue venlafaxine 150 mg daily for depression and anxiety symptoms * continue risperidone 1 mg BID for psychosis * would not likely benefit from psychiatric admission at this time Suicide Risk Level Suicide Risk Level: Low (q15 min observation checks) Suicide Risk Level Comments: pt has voiced no suicidal thoughts Interval History Identifying Information David Diaz is a 42 yo man with a history of schizoaffective disorder admitted medically for severe decompensation with malnutrition, sepsis and metabolic acidosis. Psychiatry was consulted for recommendations given his psychiatric symptoms and 302 paperwork. Chief Complaint pt was not interactive Subjective Subjective Patient was seen & assessed and interval progress reviewed in a multidisciplinary team meeting with psychiatric liaison nursing and social work. For details, see the "Impression" section below. Physical Exam Psychiatric Orientation: + uncooperative Apperance: appropriately dressed and + disheveled Eye Contact: + poor eye contact Motor Behavior: + psychomotor retardation Speech: + mute Affect: + flat affect Thought Content: + paranoid Cognition: + attention not intact Estimated Intelligence: consistent with education level (by previous assessment) Insight: + severely impaired insight Judgment: + severely impaired judgement Many aspects of a typical Mental Status Examination, all those that can't be obtained purely by observation and require interaction, were not possible as pt lay unmoving with his eyes open Vital Signs (Past 24 Hours) Last Vital Signs Temp 37.2 C 11/13/22 08:00 Pulse 73 11/13/22 08:00 Resp 16 11/13/22 08:00 BP 107/72 11/13/22 08:00 Pulse Ox 94 11/13/22 08:00 O2 Del Method Room Air 11/13/22 08:00 Results & Data ([facility]) Current Inpatient Medications Current Inpatient Medications: Current Inpatient Medications Acetaminophen (Acetaminophen 325 Mg Tab) 650 mg PO Q4H PRN PRN Reason: Pain or Fever Stop: 12/03/22 18:56 Ergocalciferol (Ergocalciferol 50,000 Units 1250 Mcg Cap) 50,000 units PO Q7D@0900 OG Stop: 12/24/22 09:01 Last Admin: 11/12/22 11:20 Dose: Not Given Lactobacillus Acidophilus (Advanced Probiotic 1250 Mg Capsule) 2 cap PO DAILY OG Stop: 12/05/22 13:29 Last Admin: 11/13/22 08:52 Dose: Not Given Lorazepam (Lorazepam 1 Mg Tab) 1 mg PO Q6H PRN PRN Reason: Anxiety Stop: 12/08/22 17:08 Multivitamins/Minerals (Cerovite Adv Formula Tab) 1 tab PO QAM OG Stop: 12/06/22 08:59 Last Admin: 11/13/22 08:52 Dose: Not Given Ondansetron HCl (Ondansetron Inj 2 Mg/Ml 2 Ml Vial) 4 mg IV Q6H PRN PRN Reason: Nausea Stop: 12/03/22 18:56 Polyethylene Glycol (Polyethylene (Miralax) 17 Gm Pack) 17 gm PO DAILY PRN PRN Reason: Constipation Stop: 12/03/22 18:56 Polymyxin/Trimethoprim Sulfate (Trimethoprim/Polymyxin B) 2 drops OP QID [facility] Stop: 12/03/22 20:59 Last Admin: 11/13/22 16:18 Dose: Not Given Risperidone (Risperidone 1 Mg Tablet) 1 mg PO BID [facility] Stop: 12/07/22 20:59 Last Admin: 11/13/22 08:52 Dose: Not Given Venlafaxine HCl (Venlafaxine Hcl Xr 150 Mg Capxr) 150 mg PO QAM [facility] Stop: 12/05/22 13:14 Last Admin: 11/13/22 08:51 Dose: Not Given
[2022-11-14] MEDS: ADVANCED PROBIOTIC 1250 MG CAPSULE PO SCH (08:50)
[2022-11-14] MEDS: CEROVITE ADV FORMULA TAB PO SCH (08:50)
[2022-11-14] MEDS: VENLAFAXINE HCL XR 150 MG CAPXR PO SCH (08:51)
[2022-11-14] MEDS: risperiDONE 1 MG TABLET PO SCH ×2 (08:51→19:53)
[2022-11-14] MEDS: TRIMETHOPRIM/POLYMYXIN B OP SCH ×4 (08:51→19:53)
--- NOTE | 2022-11-14 15:42 | Hospitalist Progress Note ---
Date of Service November 14, 2022 Assessment & Plan (1) Schizoaffective disorder: (2) Unable to care for self: (3) Starvation ketoacidosis: Plan 42-year-old male with PMH of schizoaffective disorder, catatonia who presents after being found minimally responsive and covered in feces on a welfare check. He was brought to the hospital. Found to have starvation ketosis with anion gap metabolic acidosis. He is being managed for the following: Discussed with the caregiver The patient has schizoaffective disorder with 2 recent admissions to [facility] unit, 1 in June and other 1 the end of July and beginning of August. Each time that admission was preceded by about 2 to 3 weeks of noncompliance with medications and followed by deterioration of his symptoms and cognition During his better time he actually communicates and tries to do household activities If he continues to take his medications regularly most likely he will not have this worsening of symptoms and will require any hospitalization/psychiatric care Discussed with the nurses in detail and was advised to give his medications regularly as best as possible medication care manager is heavily involved to find a place for him Signed 302 paper for continued care in a inpatient psych facility Remains medically stable noncomminuted kidney, not taking his medications and/or food Schizoaffective disorder with catatonia Patient was admitted for 5 months from 02/2021 to 06/2021 in psychiatric unit here in the hospital. Had neurology evaluation including MRI brain which was normal. CT head without acute intracranial abnormality, tox screen negative Current presentation similar as well. Patient deemed not caring for self/not moving around much, pt/ot eval Psychiatry evaled; ativan po prn, Effexor and risperidone started per psychiatry. Remains noncommunicative but alert and awake with unremarkable labs and imaging studies Been having incontinence of bladder and bowel and not been eating and drinking Discussed with the nurses and was advised to push food and medications Expected to improve-psychiatrist signed off and was advised to have group home placement We will discuss with the psychiatrist for any parenteral medications can be given for his schizoaffective disorder and catatonia We will keep trying to push medicine orally-we will discuss with psychiatrist for any IM medications can be given Severe malnutrition Vitamin D deficiency: Vitamin D level 11.8 Patient with inadequate food/nutrient intake and severe wt loss, inability to take self-care. Pt has had a wt loss of around 15% within the past 6 months Dietitian evaluated, continue with multivitamins with minerals. Patient also started on vitamin D supplement, continue. Again poor food intake today. Discussed with the nurse to push and keep trying to feed him Metabolic acidosis likely due to starvation ketosis. s/p resuscitation. resolved. Pneumonia/sepsis rule out: procal neg Bl Cx: is likely contaminant, serology neg for resistance; pt afebrile, dc'd atb 11/07. At presentation: Found to have anion gap metabolic acidosis. Urine ketones positive. Chest x-ray similar to last admission. Leukocytosis likely due to hemoconcentration/stress-induced Conjunctivitis, assume bacterial : Started on tx for assumed bacterial conjunctivitis given purulent discharge from eyes and presentation; c/w same. DVT Ppx: SQ lovenox Code status: FULL PCP: [facility]ling Dispo: pt/ot, CM to assist; d/w cm for safe dispo need. Per RN, -- per pt's [facility] CM, pt's apt is considered biohazard and not suitable for living as of now. Awaiting placement Admission and Anticipated Discharge Date Admission Date: November 03, 2022 Subjective 11/12/2022 The patient was seen and examined in medical floor He remains alert and awake but has not been talking or responding to any vocal commands Noted to be incontinent of urine and bowel and has not been eating or drinking Not been taking his medications 11/13/2022 The patient was seen and examined in medical floor He remains hemodynamically stable but has not been communicating or responding to vocal commands Remains in catatonic state but not being aggressive and/or noncooperative Has not been taking his medications and/or eating reasonably 11/14/2022 The patient was seen and examined in medical floor He remains catatonic and has not been communicating, eating or taking his m edications Not been aggressive and has been trying to come out of bed Review of Systems Review of Systems: Unobtainable due to cognitive status Physical Exam Physical Exam: Lying in bed without any acute distress Constitutional: well developed, well nourished, + ill appearing and + obese Eyes: PERRL, conjunctivae normal, anicteric sclerae ENMT: external ear and nose normal, oropharynx normal Neck: trachea midline, no thyromegaly Respiratory: no respiratory distress Auscultation: lungs clear to auscultation bilaterally Cardiovascular: Rate/Rhythm: regular rate and regular rhythm; not tachycardic Heart Sounds: normal S1, normal S2 and + murmur Extremities: no edema Gastrointestinal (Abdomen): Inspection/Auscultation: normal bowel sounds; abdomen not distended Percussion/Palpation: abdomen soft; abdomen nontender Musculoskeletal: Has been moving the toes and the fingers at times Neurologic: normal touch/pain/proprioception and moves all extremities; no focal motor deficits Lymphatic: no cervical or axillary lymphadenopathy Results & Data Results & Data Vital Signs (Past 12 Hours) Vital Signs Temp Pulse Resp BP Pulse Ox O2 Del Method 11/14/22 14:31 37.2 C 75 16 108/72 96 Room Air 11/14/22 07: 37 C 75 16 114/74 95 Room Air Medications Administered Current Inpatient Medications Acetaminophen (Acetaminophen 325 Mg Tab) 650 mg PO Q4H PRN PRN Reason: Pain or Fever Stop: 12/03/22 18:56 Ergocalciferol (Ergocalciferol 50,000 Units 1250 Mcg Cap) 50,000 units PO Q7D@0900 [facility] Stop: 12/24/22 09:01 Last Admin: 11/12/22 11:20 Dose: Not Given Lactobacillus Acidophilus (Advanced Probiotic 1250 Mg Capsule) 2 cap PO DAILY [facility] Stop: 12/05/22 13:29 Last Admin: 11/14/22 08:50 Dose: Not Given Lorazepam (Lorazepam 1 Mg Tab) 1 mg PO Q6H PRN PRN Reason: Anxiety Stop: 12/08/22 17:08 Multivitamins/Minerals (Cerovite Adv Formula Tab) 1 tab PO QAM [facility] Stop: 12/06/22 08:59 Last Admin: 11/14/22 08:50 Dose: Not Given Ondansetron HCl (Ondansetron Inj 2 Mg/Ml 2 Ml Vial) 4 mg IV Q6H PRN PRN Reason: Nausea Stop: 12/03/22 18:56 Polyethylene Glycol (Polyethylene (Miralax) 17 Gm Pack) 17 gm PO DAILY PRN PRN Reason: Constipation Stop: 12/03/22 18:56 Polymyxin/Trimethoprim Sulfate (Trimethoprim/Polymyxin B) 2 drops OP QID [facility] Stop: 12/03/22 20:59 Last Admin: 11/14/22 13:18 Dose: 2 drops Risperidone (Risperidone 1 Mg Tablet) 1 mg PO BID [facility] Stop: 12/07/22 20:59 Last Admin: 11/14/22 08:51 Dose: Not Given Venlafaxine HCl (Venlafaxine Hcl Xr 150 Mg Capxr) 150 mg PO QAM [facility] Stop: 12/05/22 13:14 Last Admin: 11/14/22 08:51 Dose: Not Given
[2022-11-15] MEDS: ADVANCED PROBIOTIC 1250 MG CAPSULE PO SCH (10:19)
[2022-11-15] MEDS: CEROVITE ADV FORMULA TAB PO SCH (10:19)
[2022-11-15] MEDS: TRIMETHOPRIM/POLYMYXIN B OP SCH ×4 (10:19→21:25)
[2022-11-15] MEDS: risperiDONE 1 MG TABLET PO SCH ×2 (10:19→21:25)
[2022-11-15] MEDS: VENLAFAXINE HCL XR 150 MG CAPXR PO SCH (10:19)
--- NOTE | 2022-11-15 12:25 | Hospitalist Progress Note ---
Date of Service November 15, 2022 Assessment & Plan (1) Schizoaffective disorder: (2) Unable to care for self: (3) Starvation ketoacidosis: Plan 42-year-old male with PMH of schizoaffective disorder, catatonia who presents after being found minimally responsive and covered in feces on a welfare check. He was brought to the hospital. Found to have starvation ketosis with anion gap metabolic acidosis. He is being managed for the following: Discussed with the caregiver The patient has schizoaffective disorder with 2 recent admissions to [facility] psychiatric unit, 1 in June and other 1 the end of July and beginning of August. Each time that admission was preceded by about 2 to 3 weeks of noncompliance with medications and followed by deterioration of his symptoms and cognition During his better time he actually communicates and tries to do household activities If he continues to take his medications regularly most likely he will not have this worsening of symptoms and will require any hospitalization/psychiatric care Discussed with the nurses in detail and was advised to give his medications regularly as best as possible manager user experience is heavily involved to find a place for him Signed 302 paper for continued care in a inpatient psych facility Remains medically stable noncomminuted kidney, not taking his medications and/or food Schizoaffective disorder with catatonia Patient was admitted for 5 months from 02/2021 to 06/2021 in psychiatric unit here in the hospital. Had neurology evaluation including MRI brain which was normal. CT head without acute intracranial abnormality, tox screen negative Current presentation similar as well. Patient deemed not caring for self/not moving around much, pt/ot eval Psychiatry evaled; ativan po prn, Effexor and risperidone started per psychiatry. Remains noncommunicative but alert and awake with unremarkable labs and imaging studies Been having incontinence of bladder and bowel and not been eating and drinking Discussed with the nurses and was advised to push food and medications Expected to improve-psychiatrist signed off and was advised to have senior care placement We will discuss with the psychiatrist for any parenteral medications can be given for his schizoaffective disorder and catatonia We will keep trying to push medicine orally-we will discuss with psychiatrist for any IM medications can be given No conversation, remains stable but has not been talking, eating, drinking or taking his medications Severe malnutrition Vitamin D deficiency: Vitamin D level 11.8 Patient with inadequate food/nutrient intake and severe wt loss, inability to take self-care. Pt has had a wt loss of around 15% within the past 6 months Dietitian evaluated, continue with multivitamins with minerals. Patient also started on vitamin D supplement, continue. Again poor food intake today. Discussed with the nurse to push and keep trying to feed him Metabolic acidosis likely due to starvation ketosis. s/p resuscitation. resolved. Pneumonia/sepsis rule out: procal neg Bl Cx: is likely contaminant, serology neg for resistance; pt afebrile, dc'd atb 11/07. At presentation: Found to have anion gap metabolic acidosis. Urine ketones positive. Chest x-ray similar to last admission. Leukocytosis likely due to hemoconcentration/stress-induced Conjunctivitis, assume bacterial : Started on tx for assumed bacterial conjunctivitis given purulent discharge from eyes and presentation; c/w same. DVT Ppx: SQ lovenox Code status: FULL PCP: [facility]ling Dispo: pt/ot, CM to assist; d/w cm for safe dispo need. Per RN, -- per pt's [facility] CM, pt's apt is considered biohazard and not suitable for living as of now. Awaiting placement Admission and Anticipated Discharge Date Admission Date: November 03, 2022 Subjective 11/12/2022 The patient was seen and examined in medical floor He remains alert and awake but has not been talking or responding to any vocal commands Noted to be incontinent of urine and bowel and has not been eating or drinking Not been taking his medications 11/13/2022 The patient was seen and examined in medical floor He remains hemodynamically stable but has not been communicating or responding to vocal commands Remains in catatonic state but not being aggressive and/or noncooperative Has not been taking his medications and/or eating reasonably 11/14/2022 The patient was seen and examined in medical floor He remains catatonic and has not been communicating, eating or taking his medications Not been aggressive and has been trying to come out of bed 11/15/2022 The patient was seen and examined in medical floor He remains catatonic and does not want to speak, eat or drink Review of Systems Review of Systems: Unobtainable due to mental health condition Physical Exam Physical Exam: Lying in bed without any acute distress Constitutional: well developed, well nourished, + ill appearing and + obese Eyes: PERRL, conjunctivae normal, anicteric sclerae ENMT: external ear and nose normal, oropharynx normal Neck: trachea midline, no thyromegaly Respiratory: no respiratory distress Auscultation: lungs clear to auscultation bilaterally Cardiovascular: Rate/Rhythm: regular rate and regular rhythm; not tachycardic Heart Sounds: normal S1, normal S2 and + murmur Extremities: no edema Gastrointestinal (Abdomen): Inspection/Auscultation: normal bowel sounds; abdomen not distended Percussion/Palpation: abdomen soft; abdomen nontender Musculoskeletal: Moves fingers and toes Neurologic: normal touch/pain/proprioception and moves all extremities; no focal motor deficits Lymphatic: no cervical or axillary lymphadenopathy Results & Data Results & Data Vital Signs (Past 12 Hours) Vital Signs Temp Pulse Resp BP Pulse Ox O2 Del Method 11/15/22 07:10 36.6 C 72 16 110/70 96 Room Air Medications Administered Current Inpatient Medications Acetaminophen (Acetaminophen 325 Mg Tab) 650 mg PO Q4H PRN PRN Reason: Pain or Fever Stop: 12/03/22 18:56 Ergocalciferol (Ergocalciferol 50,000 Units 1250 Mcg Cap) 50,000 units PO Q7D@0900 [facility] Stop: 12/24/22 09:01 Last Admin: 11/12/22 11:20 Dose: Not Given Lactobacillus Acidophilus (Advanced Probiotic 1250 Mg Capsule) 2 cap PO DAILY [facility] Stop: 12/05/22 13:29 Last Admin: 11/15/22 10:19 Dose: Not Given Lorazepam (Lorazepam 1 Mg Tab) 1 mg PO Q6H PRN PRN Reason: Anxiety Stop: 12/08/22 17:08 Multivitamins/Minerals (Cerovite Adv Formula Tab) 1 tab PO QAM [facility] Stop: 12/06/22 08:59 Last Admin: 11/15/22 10:19 Dose: Not Given Ondansetron HCl (Ondansetron Inj 2 Mg/Ml 2 Ml Vial) 4 mg IV Q6H PRN PRN Reason: Nausea Stop: 12/03/22 18:56 Polyethylene Glycol (Polyethylene (Miralax) 17 Gm Pack) 17 gm PO DAILY PRN PRN Reason: Constipation Stop: 12/03/22 18:56 Polymyxin/Trimethoprim Sulfate (Trimethoprim/Polymyxin B) 2 drops OP QID [facility] Stop: 12/03/22 20:59 Last Admin: 11/15/22 10:19 Dose: Not Given Risperidone (Risperidone 1 Mg Tablet) 1 mg PO BID [facility] Stop: 12/07/22 20:59 Last Admin: 11/15/22 10:19 Dose: Not Given Venlafaxine HCl (Venlafaxine Hcl Xr 150 Mg Capxr) 150 mg PO QAM [facility] Stop: 12/05/22 13:14 Last Admin: 11/15/22 10:19 Dose: Not Given
[2022-11-16] MEDS: ADVANCED PROBIOTIC 1250 MG CAPSULE PO SCH (09:12)
[2022-11-16] MEDS: TRIMETHOPRIM/POLYMYXIN B OP SCH ×4 (09:12→20:45)
[2022-11-16] MEDS: risperiDONE 1 MG TABLET PO SCH ×2 (09:12→20:46)
[2022-11-16] MEDS: CEROVITE ADV FORMULA TAB PO SCH (09:12)
[2022-11-16] MEDS: VENLAFAXINE HCL XR 150 MG CAPXR PO SCH (09:12)
--- NOTE | 2022-11-16 12:14 | Hospitalist Progress Note ---
Date of Service November 16, 2022 Assessment & Plan (1) Schizoaffective disorder: (2) Unable to care for self: (3) Starvation ketoacidosis: Plan 42-year-old male with PMH of schizoaffective disorder, catatonia who presents after being found minimally responsive and covered in feces on a welfare check. He was brought to the hospital. Found to have starvation ketosis with anion gap metabolic acidosis. He is being managed for the following: Discussed with the caregiver The patient has schizoaffective disorder with 2 recent admissions to [facility] psychiatric unit, 1 in June and other 1 the end of July and beginning of August. Each time that admission was preceded by about 2 to 3 weeks of noncompliance with medications and followed by deterioration of his symptoms and cognition During his better time he actually communicates and tries to do household activities If he continues to take his medications regularly most likely he will not have this worsening of symptoms and will require any hospitalization/psychiatric care Discussed with the nurses in detail and was advised to give his medications regularly as best as possible event planning manager is heavily involved to find a place for him Signed 302 paper for continued care in a inpatient psych facility Remains medically stable noncomminuted kidney, not taking his medications and/or food Schizoaffective disorder with catatonia Patient was admitted for 5 months from 02/2021 to 06/2021 in psychiatric unit here in the hospital. Had neurology evaluation including MRI brain which was normal. CT head without acute intracranial abnormality, tox screen negative Current presentation similar as well. Patient deemed not caring for self/not moving around much, pt/ot eval Psychiatry evaled; ativan po prn, Effexor and risperidone started per psychiatry. Remains noncommunicative but alert and awake with unremarkable labs and imaging studies Been having incontinence of bladder and bowel and not been eating and drinking Discussed with the nurses and was advised to push food and medications Expected to improve-psychiatrist signed off and was advised to have prison placement We will discuss with the psychiatrist for any parenteral medications can be given for his schizoaffective disorder and catatonia We will keep trying to push medicine orally-we will discuss with psychiatrist for any IM medications can be given No conversation, remains stable but has not been talking, eating, drinking or taking his medications Severe malnutrition Vitamin D deficiency: Vitamin D level 11.8 Patient with inadequate food/nutrient intake and severe wt loss, inability to take self-care. Pt has had a wt loss of around 15% within the past 6 months Dietitian evaluated, continue with multivitamins with minerals. Patient also started on vitamin D supplement, continue. Again poor food intake today. Discussed with the nurse to push and keep trying to feed him Metabolic acidosis likely due to starvation ketosis. s/p resuscitation. resolved. Pneumonia/sepsis rule out: procal neg Bl Cx: is likely contaminant, serology neg for resistance; pt afebrile, dc'd atb 11/07. At presentation: Found to have anion gap metabolic acidosis. Urine ketones positive. Chest x-ray similar to last admission. Leukocytosis likely due to hemoconcentration/stress-induced Conjunctivitis, assume bacterial : Started on tx for assumed bacterial conjunctivitis given purulent discharge from eyes and presentation; c/w same. DVT Ppx: SQ lovenox Code status: FULL PCP: [place]ling Dispo: pt/ot, CM to assist; d/w cm for safe dispo need. Per RN, -- per pt's [facility] CM, pt's apt is considered biohazard and not suitable for living as of now. Awaiting placement Admission and Anticipated Discharge Date Admission Date: November 03, 2022 Subjective 11/12/2022 The patient was seen and examined in medical floor He remains alert and awake but has not been talking or responding to any vocal commands Noted to be incontinent of urine and bowel and has not been eating or drinking Not been taking his medications 11/13/2022 The patient was seen and examined in medical floor He remains hemodynamically stable but has not been communicating or responding to vocal commands Remains in catatonic state but not being aggressive and/or noncooperative Has not been taking his medications and/or eating reasonably 11/14/2022 The patient was seen and examined in medical floor He remains catatonic and has not been communicating, eating or taking his medications Not been aggressive and has been trying to come out of bed 11/15/2022 The patient was seen and examined in medical floor He remains catatonic and does not want to speak, eat or drink 11/16/2022 Patient was seen and examined in medical floor He ate his dinner last night but has not been eating since this morning Remains catatonic Review of Systems Review of Systems: Unobtainable due to cognitive status Physical Exam Physical Exam: Lying in bed without any acute distress. Clinches his eyes when tried to communicate with him Constitutional: well developed, well nourished, + ill appearing and + obese Eyes: PERRL, conjunctivae normal, anicteric sclerae ENMT: external ear and nose normal, oropharynx normal Neck: trachea midline, no thyromegaly Respiratory: no respiratory distress Auscultation: lungs clear to auscultation bilaterally Cardiovascular: Rate/Rhythm: regular rate and regular rhythm; not tachycardic Heart Sounds: normal S1, normal S2 and + murmur Extremities: no edema Gastrointestinal (Abdomen): Inspection/Auscultation: normal bowel sounds; abdomen not distended Percussion/Palpation: abdomen soft; abdomen nontender Neurologic: normal touch/pain/proprioception and moves all extremities (Very minimal); no focal motor deficits Lymphatic: no cervical or axillary lymphadenopathy Results & Data Results & Data Vital Signs (Past 12 Hours) Vital Signs Temp Pulse Resp BP Pulse Ox Pulse Ox O2 Del Method 11/16/22 07:50 95 11/16/22 07:53 36.6 C 72 16 118/80 95 Room Air O2 Del Method 11/16/22 07:50 Room Air 11/16/22 07:53
[2022-11-16] MEDS: ENOXAPARIN INJ 40 MG/0.4 ML SYR SQ SCH (12:57)
[2022-11-17] MEDS: ADVANCED PROBIOTIC 1250 MG CAPSULE PO SCH (09:05)
[2022-11-17] MEDS: CEROVITE ADV FORMULA TAB PO SCH (09:05)
[2022-11-17] MEDS: TRIMETHOPRIM/POLYMYXIN B OP SCH ×4 (09:05→21:00)
[2022-11-17] MEDS: risperiDONE 1 MG TABLET PO SCH ×2 (09:06→21:01)
[2022-11-17] MEDS: VENLAFAXINE HCL XR 150 MG CAPXR PO SCH (09:06)
[2022-11-17] MEDS: ENOXAPARIN INJ 40 MG/0.4 ML SYR SQ SCH (09:16)
--- NOTE | 2022-11-17 15:12 | Hospitalist Progress Note ---
Date of Service November 17, 2022 Assessment & Plan (1) Schizoaffective disorder: (2) Unable to care for self: (3) Starvation ketoacidosis: Plan 42-year-old male with PMH of schizoaffective disorder, catatonia who presents after being found minimally responsive and covered in feces on a welfare check. He was brought to the hospital. Found to have starvation ketosis with anion gap metabolic acidosis. He is being managed for the following: Discussed with the caregiver The patient has schizoaffective disorder with 2 recent admissions to [facility] psychiatric unit, 1 in June and other 1 the end of July and beginning of August. Each time that admission was preceded by about 2 to 3 weeks of noncompliance with medications and followed by deterioration of his symptoms and cognition During his better time he actually communicates and tries to do household activities If he continues to take his medications regularly most likely he will not have this worsening of symptoms and will require any hospitalization/psychiatric care Discussed with the nurses in detail and was advised to give his medications regularly as best as possible brokerage office manager is heavily involved to find a place for him Signed 302 paper for continued care in a inpatient psych facility Remains medically stable noncomminuted kidney, not taking his medications and/or food Has been taking minimal amount of food whenever he wishes Not been taking his medications Schizoaffective disorder with catatonia Patient was admitted for 5 months from 02/2021 to 06/2021 in psychiatric unit here in the hospital. Had neurology evaluation including MRI brain which was normal. CT head without acute intracranial abnormality, tox screen negative Current presentation similar as well. Patient deemed not caring for self/not moving around much, pt/ot eval Psychiatry evaled; ativan po prn, Effexor and risperidone started per psychiatry. Remains noncommunicative but alert and awake with unremarkable labs and imaging studies Been having incontinence of bladder and bowel and not been eating and drinking Discussed with the nurses and was advised to push food and medications Expected to improve-psychiatrist signed off and was advised to have alf placement We will discuss with the psychiatrist for any parenteral medications can be given for his schizoaffective disorder and catatonia We will keep trying to push medicine orally-we will discuss with psychiatrist for any IM medications can be given No conversation, remains stable but has not been talking, eating, drinking or taking his medications There will not be any difference whether he continues to take his medications or not as per the psychiatrist We will try to reach out psychiatrist to get any further recommendation before he gets out of the hospital Severe malnutrition Vitamin D deficiency: Vitamin D level 11.8 Patient with inadequate food/nutrient intake and severe wt loss, inability to take self-care. Pt has had a wt loss of around 15% within the past 6 months Dietitian evaluated, continue with multivitamins with minerals. Patient also started on vitamin D supplement, continue. Again poor food intake today. Discussed with the nurse to push and keep trying to feed him Sporadic eating Will try to put an NG tube for feeding and medications to see if there is any improvement of his current condition Metabolic acidosis likely due to starvation ketosis. s/p resuscitation. resolved. Pneumonia/sepsis rule out: procal neg Bl Cx: is likely contaminant, serology neg for resistance; pt afebrile, dc'd atb 11/07. At presentation: Found to have anion gap metabolic acidosis. Urine ketones positive. Chest x-ray similar to last admission. Leukocytosis likely due to hemoconcentration/stress-induced Conjunctivitis, assume bacterial : Started on tx for assumed bacterial conjunctivitis given purulent discharge from eyes and presentation; c/w same. DVT Ppx: SQ lovenox Code status: FULL PCP: O[facility]ling Dispo: pt/ot, CM to assist; d/w cm for safe dispo need. Per RN, -- per pt's [facility] CM, pt's apt is considered biohazard and not suitable for living as of now. Awaiting placement Admission and Anticipated Discharge Date Admission Date: November 03, 2022 Subjective 11/12/2022 The patient was seen and examined in medical floor He remains alert and awake but has not been talking or responding to any vocal commands Noted to be incontinent of urine and bowel and has not been eating or drinking Not been taking his medications 11/13/2022 The patient was seen and examined in medical floor He remains hemodynamically stable but has not been communicating or responding to vocal commands Remains in catatonic state but not being aggressive and/or noncooperative Has not been taking his medications and/or eating reasonably 11/14/2022 The patient was seen and examined in medical floor He remains catatonic and has not been communicating, eating or taking his medications Not been aggressive and has been trying to come out of bed 11/15/2022 The patient was seen and examined in medical floor He remains catatonic and does not want to speak, eat or drink 11/16/2022 Patient was seen and examined in medical floor He ate his dinner last night but has not been eating since this morning Remains catatonic 11/17/2022 The patient was seen and examined in medical floor He remains catatonic and has not been eating or drinking or communicating Not been taking his medications but remains hemodynamically stable Review of Systems Review of Systems: Unobtainable due to cognitive status Physical Exam Physical Exam: Lying in bed without any acute distress. Clinches his eyes when tried to communicate with him Constitutional: well developed, well nourished, + ill appearing and + obese Eyes: PERRL, conjunctivae normal, anicteric sclerae ENMT: external ear and nose normal, oropharynx normal Neck: trachea midline, no thyromegaly Respiratory: no respiratory distress Auscultation: lungs clear to auscultation bilaterally Cardiovascular: Rate/Rhythm: regular rate and regular rhythm; not tachycardic Heart Sounds: normal S1, normal S2 and + murmur Extremities: no edema Gastrointestinal (Abdomen): Inspection/Auscultation: normal bowel sounds; abdomen not distended Percussion/Palpation: abdomen soft; abdomen nontender Musculoskeletal: No acute arthritis involving any joint Neurologic: normal touch/pain/proprioception and moves all extremities (Very minimal); no focal motor deficits Lymphatic: no cervical or axillary lymphadenopathy Results & Data Results & Data Vital Signs (Past 12 Hours) Vital Signs Temp Pulse Resp BP Pulse Ox O2 Del Method 11/17/22 07:35 Room Air 11/17/22 07:31 36.4 C L 71 18 105/74 97 Room Air
[2022-11-18] MEDS: CEROVITE ADV FORMULA TAB PO SCH (09:08)
[2022-11-18] MEDS: ADVANCED PROBIOTIC 1250 MG CAPSULE PO SCH (09:08)
[2022-11-18] MEDS: ENOXAPARIN INJ 40 MG/0.4 ML SYR SQ SCH (09:08)
[2022-11-18] MEDS: VENLAFAXINE HCL XR 150 MG CAPXR PO SCH (09:09)
[2022-11-18] MEDS: TRIMETHOPRIM/POLYMYXIN B OP SCH ×4 (09:09→20:52)
[2022-11-18] MEDS: risperiDONE 1 MG TABLET PO SCH ×2 (09:09→20:52)
--- NOTE | 2022-11-18 16:10 | Hospitalist Progress Note ---
Date of Service November 18, 2022 Assessment & Plan (1) Schizoaffective disorder: (2) Unable to care for self: (3) Starvation ketoacidosis: Plan 42-year-old male with PMH of schizoaffective disorder, catatonia who presents after being found minimally responsive and covered in feces on a welfare check. He was brought to the hospital. Found to have starvation ketosis with anion gap metabolic acidosis. He is being managed for the following: Hearing from [facility] This was done in presence of the case technician Further decision is pending Discussed with the caregiver The patient has schizoaffective disorder with 2 recent admissions to [facility] psychiatric unit, 1 in June and other 1 the end of July and beginning of August. Each time that admission was preceded by about 2 to 3 weeks of noncompliance with medications and followed by deterioration of his symptoms and cognition During his better time he actually communicates and tries to do household activities If he continues to take his medications regularly most likely he will not have this worsening of symptoms and will require any hospitalization/psychiatric care Discussed with the nurses in detail and was advised to give his medications regularly as best as possible aquatic facility manager is heavily involved to find a place for him Signed 302 paper for continued care in a inpatient psych facility Remains medically stable noncomminuted kidney, not taking his medications and/or food Has been taking minimal amount of food whenever he wishes Not been taking his medications Noted to be responsive and interacting today Schizoaffective disorder with catatonia Patient was admitted for 5 months from 02/2021 to 06/2021 in psychiatric unit here in the hospital. Had neurology evaluation including MRI brain which was normal. CT head without acute intracranial abnormality, tox screen negative Current presentation similar as well. Patient deemed not caring for self/not moving around much, pt/ot eval Psychiatry evaled; ativan po prn, Effexor and risperidone started per psychiatry. Remains noncommunicative but alert and awake with unremarkable labs and imaging studies Been having incontinence of bladder and bowel and not been eating and drinking Discussed with the nurses and was advised to push food and medications Expected to improve-psychiatrist signed off and was advised to have retirement placement We will discuss with the psychiatrist for any parenteral medications can be given for his schizoaffective disorder and catatonia We will keep trying to push medicine orally-we will discuss with psychiatrist for any IM medications can be given No conversation, remains stable but has not been talking, eating, drinking or taking his medications There will not be any difference whether he continues to take his medications or not as per the psychiatrist We will try to reach out psychiatrist to get any further recommendation before he gets out of the hospital We will try to push diet and medications Severe malnutrition Vitamin D deficiency: Vitamin D level 11.8 Patient with inadequate food/nutrient intake and severe wt loss, inability to take self-care. Pt has had a wt loss of around 15% within the past 6 months Dietitian evaluated, continue with multivitamins with minerals. Patient also started on vitamin D supplement, continue. Again poor food intake today. Discussed with the nurse to push and keep trying to feed him Sporadic eating Will try to put an NG tube for feeding and medications to see if there is any improvement of his current condition Ate a little this morning-strongly advised to push food and fluid Metabolic acidosis likely due to starvation ketosis. s/p resuscitation. resolved. Pneumonia/sepsis rule out: procal neg Bl Cx: is likely contaminant, serology neg for resistance; pt afebrile, dc'd atb 11/07. At presentation: Found to have anion gap metabolic acidosis. Urine ketones positive. Chest x-ray similar to last admission. Leukocytosis likely due to hemoconcentration/stress-induced Conjunctivitis, assume bacterial : Started on tx for assumed bacterial conjunctivitis given purulent discharge from eyes and presentation; c/w same. DVT Ppx: SQ lovenox Code status: FULL PCP: O[facility]ling Dispo: pt/ot, CM to assist; d/w cm for safe dispo need. Per RN, -- per pt's [facility] CM, pt's apt is considered biohazard and not suitable for living as of now. Awaiting placement Admission and Anticipated Discharge Date Admission Date: November 03, 2022 Subjective 11/12/2022 The patient was seen and examined in medical floor He remains alert and awake but has not been talking or responding to any vocal commands Noted to be incontinent of urine and bowel and has not been eating or drinking Not been taking his medications 11/13/2022 The patient was seen and examined in medical floor He remains hemodynamically stable but has not been communicating or responding to vocal commands Remains in catatonic state but not being aggressive and/or noncooperative Has not been taking his medications and/or eating reasonably 11/14/2022 The patient was seen and examined in medical floor He remains catatonic and has not been communicating, eating or taking his medications Not been aggressive and has been trying to come out of bed 11/15/2022 The patient was seen and examined in medical floor He remains catatonic and does not want to speak, eat or drink 11/16/2022 Patient was seen and examined in medical floor He ate his dinner last night but has not been eating since this morning Remains catatonic 11/17/2022 The patient was seen and examined in medical floor He remains catatonic and has not been eating or drinking or communicating Not been taking his medications but remains hemodynamically stable 11/18/2022 The patient was seen and examined in the medical floor around 8 AM He remains stable and today he is trying to open his eyes Has had some food this morning as well but did not take his medication Otherwise not communicating Review of Systems Review of Systems: Unobtainable due to cognitive status Physical Exam Physical Exam: Lying in bed without any acute distress. Clinches his eyes when tried to communicate with him Constitutional: well developed, well nourished, + ill appearing and + obese Eyes: PERRL, conjunctivae normal, anicteric sclerae ENMT: external ear and nose normal, oropharynx normal Neck: trachea midline, no thyromegaly Respiratory: no respiratory distress Auscultation: lungs clear to auscultation bilaterally Cardiovascular: Rate/Rhythm: regular rate and regular rhythm; not tachycardic Heart Sounds: normal S1, normal S2 and + murmur Extremities: no edema Gastrointestinal (Abdomen): Inspection/Auscultation: normal bowel sounds; abdomen not distended Percussion/Palpation: abdomen soft; abdomen nontender Musculoskeletal: No acute arthritis involving any of the joint Neurologic: normal touch/pain/proprioception and moves all extremities (Very minimal); no focal motor deficits Lymphatic: no cervical or axillary lymphadenopathy Results & Data Results & Data Vital Signs (Past 12 Hours) Vital Signs Temp Pulse Resp BP Pulse Ox O2 Del Method 11/18/22 14:51 36.6 C 90 16 125/76 94 Room Air 11/18/22 07:41 36.5 C 80 16 115/77 96 Room Air Medications Administered Current Inpatient Medications Acetaminophen (Acetaminophen 325 Mg Tab) 650 mg PO Q4H PRN PRN Reason: Pain or Fever Stop: 12/03/22 18:56 Enoxaparin Sodium (Enoxaparin Inj 40 Mg/0.4 Ml Syr) 40 mg SQ QAM [facility] Stop: 12/16/22 12:14 Last Admin: 11/18/22 09:08 Dose: Not Given Ergocalciferol (Ergocalciferol 50,000 Units 1250 Mcg Cap) 50,000 units PO Q7D@0900 [facility] Stop: 12/24/22 09:01 Last Admin: 11/12/22 11:20 Dose: Not Given Lactobacillus Acidophilus (Advanced Probiotic 1250 Mg Capsule) 2 cap PO DAILY [facility] Stop: 12/05/22 13:29 Last Admin: 11/18/22 09:08 Dose: Not Given Lorazepam (Lorazepam 1 Mg Tab) 1 mg PO Q6H PRN PRN Reason: Anxiety Stop: 12/08/22 17:08 Multivitamins/Minerals (Cerovite Adv Formula Tab) 1 tab PO [facility] Stop: 12/06/22 08:59 Last Admin: 11/18/22 09:08 Dose: Not Given Ondansetron HCl (Ondansetron Inj 2 Mg/Ml 2 Ml Vial) 4 mg IV Q6H PRN PRN Reason: Nausea Stop: 12/03/22 18:56 Polyethylene Glycol (Polyethylene (Miralax) 17 Gm Pack) 17 gm PO DAILY PRN PRN Reason: Constipation Stop: 12/03/22 18:56 Polymyxin/Trimethoprim Sulfate (Trimethoprim/Polymyxin B) 2 drops OP QID [facility] Stop: 12/03/22 20:59 Last Admin: 11/18/22 13:18 Dose: Not Given Risperidone (Risperidone 1 Mg Tablet) 1 mg PO BID [facility] Stop: 12/07/22 20:59 Last Admin: 11/18/22 09:09 Dose: Not Given Venlafaxine HCl (Venlafaxine Hcl Xr 150 Mg Capxr) 150 mg PO QAM [facility] Stop: 12/05/22 13:14 Last Admin: 11/18/22 09:09 Dose: Not Given
[2022-11-18 21:15] LABS: Basophils # (auto) 0.07 K/uL (0-0.2); Basophils % (auto) 0.7 %; Eosinophils # (auto) 0.24 K/uL (0-0.50); Eosinophils % (auto) 2.4 %; Hematocrit (blood only) 43.1 % (42.0-52.0); Hemoglobin 15.8 g/dl (14.0-18.0); Immature Granulocytes # (auto) 0.06 K/uL (0.01-0.20); Immature Granulocytes % (auto) 0.6 %; Lymphocytes # (auto) 2.56 K/uL (1.2-3.4); Lymphocytes % (auto) 25.7 %; Mean Corpuscular Hemoglobin 30.8 pg (25.0-34.0); Mean Corpuscular Hgb Conc 36.7 g/dL (32.0-36.0); Mean Platelet Volume 11.2 fL (9.4-12.4); Monocytes # (auto) 0.85 K/uL (0.11-0.59); Monocytes % (auto) 8.5 %; Neutrophils % (auto) 62.1 %; Platelet Count 220 K/uL (130-400); RDW Coefficient of Variation 12.3 % (11.5-14.5); RDW Standard Deviation 37.4 fL (36.4-46.3); Red Blood Count 5.13 M/uL (4.70-6.10); White Blood Count 9.98 K/ul (4.8-10.8)
[2022-11-18 22:26] LABS: Albumin Level 3.9 gm/dl (3.4-5.0); Bilirubin,Total 0.6 mg/dl (0.2-1.0); Calcium 8.9 mg/dl (8.6-10.3); Magnesium 1.9 mg/dl (1.7-2.4); Potassium 3.4 mmol/L (3.5-5.1)
[2022-11-18 22:32] LABS: Albumin Globulin Ratio 1.8 (0.9-2); BUN Creatinine Ratio 11.5 (10-20); Creatinine Clr Calc Pharmacy 117.8 ml/min; Est GFR (African American) 112.5 ml/min; Est GFR (Non-African American) 97.1 ml/min; Globulin 2.2 gm/dl (2.5-4.0); Phosphorus 2.1 mg/dl (2.5-4.9); Total Protein 6.1 gm/dl (6.0-8.3)
[2022-11-19] MEDS: ENOXAPARIN INJ 40 MG/0.4 ML SYR SQ SCH (09:10)
[2022-11-19] MEDS: ERGOCALCIFEROL 50,000 UNITS 1250 MCG CAP PO SCH (09:10)
[2022-11-19] MEDS: TRIMETHOPRIM/POLYMYXIN B OP SCH ×4 (09:11→20:04)
[2022-11-19] MEDS: risperiDONE 1 MG TABLET PO SCH ×2 (09:11→20:04)
[2022-11-19] MEDS: ADVANCED PROBIOTIC 1250 MG CAPSULE PO SCH (09:11)
[2022-11-19] MEDS: CEROVITE ADV FORMULA TAB PO SCH (09:11)
[2022-11-19] MEDS: VENLAFAXINE HCL XR 150 MG CAPXR PO SCH (09:11)
[2022-11-19] MEDS ORDERED: POTASSIUM PHOS 3 MMOL/1 ML INFUSION IV STA (14:27)
[2022-11-19] MEDS ORDERED: POTASSIUM PHOSPHATE 30 MMOL in SODIUM CHLORIDE 0.9% 500 ML IV ONE (14:30)
--- NOTE | 2022-11-19 14:32 | Hospitalist Progress Note ---
Date of Service November 19, 2022 Assessment & Plan (1) Schizoaffective disorder: (2) Unable to care for self: (3) Starvation ketoacidosis: Plan 42-year-old male with PMH of schizoaffective disorder, catatonia who presents after being found minimally responsive and covered in feces on a welfare check. He was brought to the hospital. Found to have starvation ketosis with anion gap metabolic acidosis. He is being managed for the following: Hearing from [facility] This was done in presence of the case worker Further decision is pending Discussed with the caregiver The patient has schizoaffective disorder with 2 recent admissions to [facility] psychiatric unit, 1 in June and other 1 the end of July and beginning of August. Each time that admission was preceded by about 2 to 3 weeks of noncompliance with medications and followed by deterioration of his symptoms and cognition During his better time he actually communicates and tries to do household activities If he continues to take his medications regularly most likely he will not have this worsening of symptoms and will require any hospitalization/psychiatric care Discussed with the nurses in detail and was advised to give his medications regularly as best as possible district branch manager is heavily involved to find a place for him Signed 302 paper for continued care in a inpatient psych facility Remains medically stable noncomminuted kidney, not taking his medications and/or food Has been taking minimal amount of food whenever he wishes Not been taking his medications Noted to be responsive and interacting today Schizoaffective disorder with catatonia Patient was admitted for 5 months from 02/2021 to 06/2021 in psychiatric unit here in the hospital. Had neurology evaluation including MRI brain which was normal. CT head without acute intracranial abnormality, tox screen negative Current presentation similar as well. Patient deemed not caring for self/not moving around much, pt/ot eval Psychiatry evaled; ativan po prn, Effexor and risperidone started per psychiatry. Remains noncommunicative but alert and awake with unremarkable labs and imaging studies Been having incontinence of bladder and bowel and not been eating and drinking Discussed with the nurses and was advised to push food and medications Expected to improve-psychiatrist signed off and was advised to have senior living placement We will discuss with the psychiatrist for any parenteral medications can be given for his schizoaffective disorder and catatonia We will keep trying to push medicine orally-we will discuss with psychiatrist for any IM medications can be given No conversation, remains stable but has not been talking, eating, drinking or taking his medications There will not be any difference whether he continues to take his medications or not as per the psychiatrist We will try to reach out psychiatrist to get any further recommendation before he gets out of the hospital We will try to push diet and medications Severe malnutrition Vitamin D deficiency: Vitamin D level 11.8 Patient with inadequate food/nutrient intake and severe wt loss, inability to take self-care. Pt has had a wt loss of around 15% within the past 6 months Dietitian evaluated, continue with multivitamins with minerals. Patient also started on vitamin D supplement, continue. Again poor food intake today. Discussed with the nurse to push and keep trying to feed him Sporadic eating Will try to put an NG tube for feeding and medications to see if there is any improvement of his current condition Ate a little this morning-strongly advised to push food and fluid Has hyponatremia and hypophosphatemia-secondary to not been eating or drinking We will try to give intravenous replacement The nursing staffs are trying to push food and fluid without any success Metabolic acidosis likely due to starvation ketosis. s/p resuscitation. resolved. Pneumonia/sepsis rule out: procal neg Bl Cx: is likely contaminant, serology neg for resistance; pt afebrile, dc'd atb 11/07. At presentation: Found to have anion gap metabolic acidosis. Urine ketones positive. Chest x-ray similar to last admission. Leukocytosis likely due to hemoconcentration/stress-induced Conjunctivitis, assume bacterial : Started on tx for assumed bacterial conjunctivitis given purulent discharge from eyes and presentation; c/w same. DVT Ppx: SQ lovenox Code status: FULL PCP: [facility] Dispo: pt/ot, CM to assist; d/w cm for safe dispo need. Per RN, -- per pt's co [facility] CM, pt's apt is considered biohazard and not suitable for living as of now. Awaiting placement Admission and Anticipated Discharge Date Admission Date: November 03, 2022 Subjective 11/12/2022 The patient was seen and examined in medical floor He remains alert and awake but has not been talking or responding to any vocal commands Noted to be incontinent of urine and bowel and has not been eating or drinking Not been taking his medications 11/13/2022 The patient was seen and examined in medical floor He remains hemodynamically stable but has not been communicating or responding to vocal commands Remains in catatonic state but not being aggressive and/or noncooperative Has not been taking his medications and/or eating reasonably 11/14/2022 The patient was seen and examined in medical floor He remains catatonic and has not been communicating, eating or taking his medications Not been aggressive and has been trying to come out of bed 11/15/2022 The patient was seen and examined in medical floor He remains catatonic and does not want to speak, eat or drink 11/16/2022 Patient was seen and examined in medical floor He ate his dinner last night but has not been eating since this morning Remains catatonic 11/17/2022 The patient was seen and examined in medical floor He remains catatonic and has not been eating or drinking or communicating Not been taking his medications but remains hemodynamically stable 11/18/2022 The patient was seen and examined in the medical floor around 8 AM He remains stable and today he is trying to open his eyes Has had some food this morning as well but did not take his medication Otherwise not communicating 11/19/2022 The patient was seen and examined in medical floor He has been stable with catatonia and has not been eating or drinking anything He has not been responding to any commands but remains hemodynamically stable Review of Systems Review of Systems: Unobtainable due to cognitive status Physical Exam Physical Exam: Lying in bed without any acute distress. Clinches his eyes when tried to communicate with him Constitutional: well developed, well nourished, + ill appearing and + obese Eyes: PERRL, conjunctivae normal, anicteric sclerae ENMT: external ear and nose normal, oropharynx normal Neck: trachea midline, no thyromegaly Respiratory: no respiratory distress Auscultation: lungs clear to auscultation bilaterally Cardiovascular: Rate/Rhythm: regular rate and regular rhythm; not tachycardic Heart Sounds: normal S1, normal S2 and + murmur Extremities: no edema Gastrointestinal (Abdomen): Inspection/Auscultation: normal bowel sounds; abdomen not distended Percussion/Palpation: abdomen soft; abdomen nontender Musculoskeletal: No acute arthritis involving any joint Neurologic: Alert and awake. Noncommunicative, sharp thighs and clinches mouth and teeth on asking any questions Lymphatic: no cervical or axillary lymphadenopathy Results & Data Results & Data Vital Signs (Past 12 Hours) Vital Signs Temp Pulse Resp BP Pulse Ox Pulse Ox O2 Del Method 11/19/22 07:00 97 11/19/22 07:23 36.8 C 90 16 106/72 96 Room Air O2 Del Method 11/19/22 07:00 Room Air 11/19/22 07:23 Laboratory Results Short CBC 11/18/22 Range/Units 20:51 WBC 9.98 (4.8-10.8) K/ul Hgb 15.8 (14.0-18.0) g/dl Hct 43.1 (42.0-52.0) % Plt Count 220 (130-400) K/uL BMP 11/18/22 20:51 Sodium 139 Potassium 3.4 L Chloride 108 H Carbon Dioxide 19 L BUN 11 Creatinine 0.96 Glucose 114 H Calcium 8.9 Liver Function 11/18/22 Range/Units 20:51 Total Bilirubin 0.6 (0.2-1.0) mg/dl AST 15 (13-39) U/L ALT 9 (7-52) U/L Alkaline Phosphatase 90 (34-104) U/L Albumin 3.9 (3.4-5.0) gm/dl Medications Administered Current Inpatient Medications Acetaminophen (Acetaminophen 325 Mg Tab) 650 mg PO Q4H PRN PRN Reason: Pain or Fever Stop: 12/03/22 18:56 Enoxaparin Sodium (Enoxaparin Inj 40 Mg/0.4 Ml Syr) 40 mg SQ QAM [facility] Stop: 12/16/22 12:14 Last Admin: 11/19/22 09:10 Dose: Not Given Ergocalciferol (Ergocalciferol 50,000 Units 1250 Mcg Cap) 50,000 units PO Q7D@0900 [facility] Stop: 12/24/22 09:01 Last Admin: 11/19/22 09:10 Dose: Not Given Potassium Phosphate 30 mmol/ (Sodium Chloride) 510 mls @ 88 mls/hr IV ONE ONE Stop: 11/19/22 20:17 Lactobacillus Acidophilus (Advanced Probiotic 1250 Mg Capsule) 2 cap PO DAILY [facility] Stop: 12/05/22 13:29 Last Admin: 11/19/22 09:11 Dose: Not Given Lorazepam (Lorazepam 1 Mg Tab) 1 mg PO Q6H PRN PRN Reason: Anxiety Stop: 12/08/22 17:08 Multivitamins/Minerals (Cerovite Adv Formula Tab) 1 tab PO QAM [facility] Stop: 12/06/22 08:59 Last Admin: 11/19/22 09:11 Dose: Not Given Ondansetron HCl (Ondansetron Inj 2 Mg/Ml 2 Ml Vial) 4 mg IV Q6H PRN PRN Reason: Nausea Stop: 12/03/22 18:56 Polyethylene Glycol (Polyethylene (Miralax) 17 Gm Pack) 17 gm PO DAILY PRN PRN Reason: Constipation Stop: 12/03/22 18:56 Polymyxin/Trimethoprim Sulfate (Trimethoprim/Polymyxin B) 2 drops OP QID OG Stop: 12/03/22 20:59 Last Admin: 11/19/22 09:11 Dose: Not Given Risperidone (Risperidone 1 Mg Tablet) 1 mg PO BID [facility] Stop: 12/07/22 20:59 Last Admin: 11/19/22 09:11 Dose: Not Given Venlafaxine HCl (Venlafaxine Hcl Xr 150 Mg Capxr) 150 mg PO QAM [facility] Stop: 12/05/22 13:14 Last Admin: 11/19/22 09:11 Dose: Not Given
[2022-11-20] MEDS: TRIMETHOPRIM/POLYMYXIN B OP SCH ×4 (09:29→19:56)
[2022-11-20] MEDS: ADVANCED PROBIOTIC 1250 MG CAPSULE PO SCH (09:29)
[2022-11-20] MEDS: ENOXAPARIN INJ 40 MG/0.4 ML SYR SQ SCH (09:29)
[2022-11-20] MEDS: CEROVITE ADV FORMULA TAB PO SCH (09:29)
[2022-11-20] MEDS: VENLAFAXINE HCL XR 150 MG CAPXR PO SCH (09:30)
[2022-11-20] MEDS: risperiDONE 1 MG TABLET PO SCH ×2 (09:30→19:56)
[2022-11-20] MEDS ORDERED: DEXTROSE 10% 1,000 ML IV PRN (13:30)
[2022-11-20] MEDS ORDERED: TPN/PPN CONSULT PHARMACY PRN (13:41)
--- NOTE | 2022-11-20 22:36 | Hospitalist Progress Note ---
Date of Service November 20, 2022 Assessment & Plan (1) Schizoaffective disorder: (2) Unable to care for self: (3) Starvation ketoacidosis: Plan 42-year-old male with PMH of schizoaffective disorder, catatonia who presents after being found minimally responsive and covered in feces on a welfare check. He was brought to the hospital. Found to have starvation ketosis with anion gap metabolic acidosis. He is being managed for the following: Hearing from [facility] This was done in presence of the cyanide case hardener by previous provider, Dr. Barry Follow pending decision Schizoaffective disorder with catatonia Patient was admitted for 5 months from 02/2021 to 06/2021 in psychiatric unit here in the hospital. Had neurology evaluation including MRI brain which was normal. CT head without acute intracranial abnormality, tox screen negative Current presentation similar as well. Been having incontinence of bladder and bowel and not been eating and drinking Discussed with the nurses and was advised to push food and medications Psychiatry has signed off Severe malnutrition Vitamin D deficiency: Vitamin D level 11.8 Nutrition recommending TPN- orders placed. Metabolic acidosis likely due to starvation ketosis. s/p resuscitation. resolved. Pneumonia/sepsis rule out: procal neg Bl Cx: is likely contaminant, serology neg for resistance Conjunctivitis, assume bacterial : Started on tx for assumed bacterial conjunctivitis given purulent discharge from eyes and presentation; c/w same. DVT Ppx: SQ lovenox Code status: FULL PCP: [facility] Dispo: pt/ot, CM to assist; d/w cm for safe dispo need. Per RN, -- per pt's [facility] CM, pt's apt is considered biohazard and not suitable for living as of now. Awaiting placement Admission and Anticipated Discharge Date Admission Date: November 03, 2022 Subjective Seen this AM, was not able to be aroused. However noted that he was tensing his facial muscles. Review of Systems Review of Systems: Unobtainable due to reduced consciousness Physical Exam Physical Exam: General: laying in bed, unresponsive Skin: No noted rashes or bruises Psych: could not be evaluated as was unresponsive Neuro: unarousable HEENT: NC/AT Chest: Nontender to palpation. CV: RRR Resp: Breath sounds clear bilaterally Abdomen: Soft, nontender, nondistended. Extremities: No edema in lower extremities bilaterally. Results & Data Results & Data Vital Signs (Past 12 Hours) Vital Signs Temp Pulse Resp BP BP Pulse Ox O2 Del Method 11/20/22 22:02 36.7 C 76 16 117/76 95 Room Air 11/20/22 15:30 36.5 C 79 14 108/68 95 Room Air
[2022-11-21] MEDS: ENOXAPARIN INJ 40 MG/0.4 ML SYR SQ SCH (07:59)
[2022-11-21] MEDS: ADVANCED PROBIOTIC 1250 MG CAPSULE PO SCH (07:59)
[2022-11-21] MEDS: CEROVITE ADV FORMULA TAB PO SCH (07:59)
[2022-11-21] MEDS: risperiDONE 1 MG TABLET PO SCH ×2 (08:00→21:11)
[2022-11-21] MEDS: TRIMETHOPRIM/POLYMYXIN B OP SCH ×4 (08:00→21:11)
[2022-11-21] MEDS: VENLAFAXINE HCL XR 150 MG CAPXR PO SCH (08:00)
[2022-11-21 13:15] LABS: BUN Creatinine Ratio 13.6 (10-20); Calcium 9.6 mg/dl (8.6-10.3); Creatinine Clr Calc Pharmacy 109.5 ml/min; Est GFR (African American) 103.4 ml/min; Est GFR (Non-African American) 89.2 ml/min; Magnesium 1.9 mg/dl (1.7-2.4); Phosphorus 3.5 mg/dl (2.5-4.9); Potassium 4.5 mmol/L (3.5-5.1)
--- NOTE | 2022-11-21 13:57 | Pharmacy Report ---
Pharmacy PN Initial Consult - Date of Service November 21, 2022 - Scope Pharmacy has been consulted to manage parenteral nutrition orders and order appropriate labs. As part of the Nutrition Support Team guidelines, pharmacy will work in conjunction with dietary when determining the patients caloric needs. - Subjective The patient is a 42 year old M admitted on 11/03/22 17:43 for AMS, FOUND UNRESPONSIVE. Patient is to receive parenteral nutrition for CATATONIA . Pertinent PMH: N/A - Objective Height: 5 ft 10 in Weight: 97.6 kg Vascular Access:: PERIPHERAL Intake & Output (Last 24Hrs): Intake & Output 11/19/22 11/20/22 11/21/22 11/22/22 06:59 06:59 06:59 06:59 Intake Total 1340 / 1340 1050 / 1050 0 / 0 Output Total 200 / 200 500 / 500 200 / 200 Balance 1140 / 1140 550 / 550 -200 / -200 Weight 98.3 kg 97 kg 97.6 kg Laboratory Data (Last 24 Hrs):: 11/21/22 12:40 Sodium 143 Potassium 4.5 Chloride 109 H Carbon Dioxide 21 BUN 14 Creatinine 1.03 Glucose 77 Calcium 9.6 Phosphorus 3.5 Magnesium 1.9 Nutrition Assessment:: Please refer to the Notes section of the EMR for the most recent customer support coordinator note. - Assessment Mr Diaz is a 42 y/o M with a several week history of catatonia, originally admitted with starvation ketosis. Goal PPN is 2 liter bag. Patient initially refused labs today twice. Coordinated with nursing and lab to have labs done. Provider aware that PPN is not possible if labs cannot be drawn. - Plan For day 1 of PN administration, the following will be ordered: Macronutrients Amino acids 64 grams/day Dextrose 75 grams/day Lipids 50 grams/day Micronutrients Combined electrolytes -- mL - contains 35 mEq Na, 20 meq K, 4.5 mEq Ca, 5 mEq Mg, 35 mEq Cl, 29.5 mEq acetate per 20 mL Sodium phosphate 21 MMol Sodium chloride 100 mEq Sodium acetate -- mEq Potassium phosphate -- mMol Potassium chloride -- mEq Potassium acetate 50 mEq Magnesium sulfate 8.12 mEq Calcium gluconate 4.65 mEq Multivitamins 10 mL Trace Elements 10 mL Additional additives: thiamine and folic acid Total volume 1596 mL to be infused over 24 hrs will provide 1010 kcal/day Final osmolarity 863 mOsm/L (maximum for PPN is 900 mOsm/L) Labs to be ordered per PN order protocol Pharmacy will follow and adjust parenteral nutrition orders on a daily basis. Thank you.
--- NOTE | 2022-11-21 15:56 | Hospitalist Progress Note ---
Date of Service November 21, 2022 Assessment & Plan (1) Schizoaffective disorder: (2) Unable to care for self: (3) Starvation ketoacidosis: Plan 42-year-old male with PMH of schizoaffective disorder, catatonia who presents after being found minimally responsive and covered in feces on a welfare check. He was brought to the hospital. Found to have starvation ketosis with anion gap metabolic acidosis. Hearing from [facility] This was done in presence of the corrections caseworker by previous provider, Dr. Barry Received notification that Sho Diaz (pt's mom) was appointed emergency guardian over pt until a hearing on November 24 to determine whether it will be made permanent. After reviewing the forwarded documentation from the court emailed by CM, mother was contacted by phone on 11/21/22. She advised that she would like PPN given and medications administered as possible. She also stated that she would like further discussion with psychiatry. Psychiatry contacted via telephone and will await further recommendations. Schizoaffective disorder with catatonia Patient was admitted for 5 months from 02/2021 to 06/2021 in psychiatric unit here in the hospital. Had neurology evaluation including MRI brain which was normal. CT head without acute intracranial abnormality, tox screen negative Current presentation similar as well. Been having incontinence of bladder and bowel and not been eating and drinking Discussed with the nurses and was advised to push food and medications Psychiatry contacted once more as noted above Severe malnutrition Vitamin D deficiency: PPN ordered Metabolic acidosis likely due to starvation ketosis. Conjunctivitis, assume bacterial : Started on tx for assumed bacterial conjunctivitis given purulent discharge from eyes and presentation; pt refusing medication DVT Ppx: SQ lovenox Code status: FULL PCP: Rob Dispo: Awaiting placement Admission and Anticipated Discharge Date Admission Date: November 03, 2022 Subjective Seen this AM, was not able to be aroused once more. Notified by pharmacy that pt was refusing blood draws, however obtained eventually and PPN ordered. Also notified that pt had been appointed emergency guardianship of his mother and forwarded documentation from the court. Mother contacted and she advised that she would like PPN and medications administered as possible. She also stated that she would like further discussion with psychiatry. Review of Systems Review of Systems: Unobtainable due to reduced consciousness Physical Exam Physical Exam: General: laying in bed, unresponsive Skin: No noted rashes or bruises Psych: could not be evaluated as was unresponsive Neuro: unarousable HEENT: NC/AT Chest: Nontender to palpation. CV: RRR Resp: Breath sounds clear bilaterally Abdomen: Soft, nontender, nondistended. Extremities: No edema in lower extremities bilaterally. Results & Data Results & Data Vital Signs (Past 12 Hours) Vital Signs Temp Pulse Resp BP Pulse Ox O2 Del Method 11/21/22 07:16 36.6 C 70 12 115/80 95 Room Air
[2022-11-21] MEDS ORDERED: PERIPHERAL TPN IV SCH (16:00)
[2022-11-21] MEDS ORDERED: CLINOLIPID 20% IV FAT EMULSION 250 ML IV SCH (16:00)
[2022-11-21] MEDS ORDERED: [UNRECOGNIZED DRUG - OTHER] IV SCH (16:00)
[2022-11-21] MEDS ORDERED: STOP CLINOLIPID SCH (22:00)
[2022-11-22 07:08] LABS: BUN Creatinine Ratio 19.5 (10-20); Calcium 8.8 mg/dl (8.6-10.3); Creatinine Clr Calc Pharmacy 137.5 ml/min; Est GFR (African American) 126.4 ml/min; Est GFR (Non-African American) 109.1 ml/min; Phosphorus 2.8 mg/dl (2.5-4.9); Potassium 3.5 mmol/L (3.5-5.1)
[2022-11-22] MEDS: ADVANCED PROBIOTIC 1250 MG CAPSULE PO SCH (08:19)
[2022-11-22] MEDS: VENLAFAXINE HCL XR 150 MG CAPXR PO SCH (08:19)
[2022-11-22] MEDS: CEROVITE ADV FORMULA TAB PO SCH (08:19)
[2022-11-22] MEDS: TRIMETHOPRIM/POLYMYXIN B OP SCH ×4 (08:19→20:01)
[2022-11-22] MEDS: risperiDONE 1 MG TABLET PO SCH (08:19)
[2022-11-22] MEDS: ENOXAPARIN INJ 40 MG/0.4 ML SYR SQ SCH (08:19)
--- NOTE | 2022-11-22 10:28 | Psychiatric Progress Note ---
Date of Service November 22, 2022 Impression / Recommendations Impression David Diaz is a 42 yo man with a history of schizoaffective disorder admitted medically for severe decompensation with malnutrition and inability to care for himself most likely due to acute exacerbation of his schizoaffective disorder with current episode of severe neurovegetative depression. On an outpatient 304 commitment that expires 12/09/2022. 11/22/22: unchanged, requirinig nutritional support (1) Schizoaffective disorder, depressive type: Plan patient has been refusing all medications and no meaningful response to appropriate doses of Ativan. Recommend d/c standing psych med orders as non compliant. Doses would need to be restarted at lower dose anyway when resumes PO. Non formulary request submitted for Daytrana patch 36 mg transdermal, remove after 9 hrs. >75 min spent reviewing case, coordination of care with guardian, examination of patient, >50% time spent counseling/coordination Interval History Identifying Information David Diaz is a 42 yo man with a history of schizoaffective disorder admitted medically for severe decompensation with malnutrition, sepsis and metabolic acidosis. Currently on a 304 commitment. Chief Complaint atypical catatonia, refusal to eat/drink consistently Review of Systems Notes patient unable to complete Subjective Subjective Patient was seen & assessed and interval progress reviewed with nursing. Reviewed emergency guardianship court order granting mother Sho Diaz (in [place], [place]; [phone]) medical decision making. Patient starting TPN given ongoing refusal to eat/drink. Continues to lie in bed, soiled self using the urinal, etc. Patient is well known to me from his 2021 inpatient psyhciatric hospitalization, as discussed with Drs. Garces and Olegario, he failed extensive trials of IM Ativan and antipsychotics (Haldol, Zyprexa), even MAOI patch. The turning point of his stay was his insistence that he did not want ECT after a court order was obtained. Unfortunately he left his supportive living environment and decompensated in independent apartment despite support of therapist, CM, and out patient 304. It is unclear how compliant he's been with medications or actual response. His previous treating psychiatrist Dr. Negron did not note benefit, recent report from therapist states. It's also unclear how much of his regressed behavior is truly psychosis as his diagnosis was largely based on thought blocking, disorganization, and attempts to treat depressive component. Multiple providers feel that is catatonia is not typical and more characterological as his episodes seems to correlate with naricisstic injury. Last year was around divorce papers, now finalized and having less contact with minor child. 3 psychiatrists stated antipsychotics or ongoing Ativan IM low yield and should not be administered. He has expressed wishes to avoid Haldol earlier this stay when he was more vocal. spoke with mother at length re: updates, diagnosis, patient's atypical presentation and past treatment course at [facility]. She reports that he contacted her a few days prior to medical hospitalization and was discussing his belief that he has a large online following which he tied to a professor of communication transferring taoism power to him. Mother added there were references to [facility] and she did look online but hasn't found any evidence of the blog he was referencing. She expressed understanding of his past med response, reviewed current med list was Effexor XR and Risperdal but non compliant. Reviewed options of IV vs IM medications extremely limited given past lack of response but could try stimulant for depression, risk of worsening psychosis but there is no evidence of current agitation, hallucinating. Can quickly be started and stopped. Reviewed cardiovascular risks and mother agreed. [facility] hospitalist updated and also in agreement. Physical Exam Psychiatric eye closed but clearly aware of presence as foot movements and then some tremors but won't vocalize or make eye contact. no posturing. IV in place/infusing. Vital Signs (Past 24 Hours) Last Vital Signs Temp 36.5 C 11/22/22 07:30 Pulse 61 11/22/22 07:30 Resp 16 11/22/22 07:30 BP 115/80 11/22/22 07:30 Pulse Ox 96 11/22/22 07:30 O2 Del Method Room Air 11/22/22 07:30 Results & Data ([facility]) Laboratory Results Laboratory Results - last 24 hr 11/21/22 11/22/22 11/22/22 12:40 00:27 05:51 Sodium 143 141 Potassium 4.5 3.5 D Chloride 109 H 111 H Carbon Dioxide 21 22 Anion Gap 13 H 8 BUN 14 16 Creatinine 1.03 0.82 Est Cr Clr Drug Dosing 109.5 137.5 Est GFR ( Amer) 103.4 126.4 Est GFR (Non-Af Amer) 89.2 109.1 BUN/Creatinine Ratio 13.6 19.5 Glucose 77 131 H POC Glucose 116 H Calcium 9.6 8.8 Phosphorus 3.5 2.8 Magnesium 1.9 2.0 11/22/22 06:06 Sodium Potassium Chloride Carbon Dioxide Anion Gap BUN Creatinine Est Cr Clr Drug Dosing Est GFR ( Amer) Est GFR (Non-Af Amer) BUN/Creatinine Ratio Glucose POC Glucose 137 H Calcium Phosphorus Magnesium Current Inpatient Medications Current Inpatient Medications: Current Inpatient Medications Acetaminophen (Acetaminophen 325 Mg Tab) 650 mg PO Q4H PRN PRN Reason: Pain or Fever Stop: 12/03/22 18:56 Enoxaparin Sodium (Enoxaparin Inj 40 Mg/0.4 Ml Syr) 40 mg SQ QAM [facility] Stop: 12/16/22 12:14 Last Admin: 11/22/22 08:19 Dose: Not Given Ergocalciferol (Ergocalciferol 50,000 Units 1250 Mcg Cap) 50,000 units PO Q7D@0900 [facility] Stop: 12/24/22 09:01 Last Admin: 11/19/22 09:10 Dose: Not Given Dextrose (D10w) 1,000 mls @ 0 mls/hr IV .Q0M PRN PRN Reason: protocol (see label comments) Stop: 12/20/22 13:29 Amino Acids 1,596 ml/ (Nutrition (Parenteral)) 1,596 mls @ 66.5 mls/hr IV .Q24H [facility]; Protocol Stop: 11/22/22 15:59 Last Admin: 11/21/22 16:41 Dose: 66.5 mls/hr Lactobacillus Acidophilus (Advanced Probiotic 1250 Mg Capsule) 2 cap PO DAILY [facility] Stop: 12/05/22 13:29 Last Admin: 11/22/22 08:19 Dose: Not Given Lorazepam (Lorazepam 1 Mg Tab) 1 mg PO Q6H PRN PRN Reason: Anxiety Stop: 12/08/22 17:08 Miscellaneous Information (Tpn/Ppn Consult Pharmacy) 1 each N/A UD PRN PRN Reason: Consult Stop: 12/20/22 13:40 Multivitamins/Minerals (Cerovite Adv Formula Tab) 1 tab PO QAM [facility] Stop: 12/06/22 08:59 Last Admin: 11/22/22 08:19 Dose: Not Given Ondansetron HCl (Ondansetron Inj 2 Mg/Ml 2 Ml Vial) 4 mg IV Q6H PRN PRN Reason: Nausea Stop: 12/03/22 18:56 Polyethylene Glycol (Polyethylene (Miralax) 17 Gm Pack) 17 gm PO DAILY PRN PRN Reason: Constipation Stop: 12/03/22 18:56 Polymyxin/Trimethoprim Sulfate (Trimethoprim/Polymyxin B) 2 drops OP QID [facility] Stop: 12/03/22 20:59 Last Admin: 11/22/22 08:19 Dose: Not Given Risperidone (Risperidone 1 Mg Tablet) 1 mg PO BID [facility] Stop: 12/07/22 20:59 Last Admin: 11/22/22 08:19 Dose: Not Given Venlafaxine HCl (Venlafaxine Hcl Xr 150 Mg Capxr) 150 mg PO QAM [facility] Stop: 12/05/22 13:14 Last Admin: 11/22/22 08:19 Dose: Not Given
[2022-11-22] MEDS ORDERED: POTASSIUM PHOSPHATE 15 MMOL in SODIUM CHLORIDE 0.9% 250 ML IV STA (12:12)
[2022-11-22] MEDS ORDERED: [UNRECOGNIZED DRUG - OTHER] IV SCH (16:00)
[2022-11-22] MEDS ORDERED: PERIPHERAL TPN IV SCH (16:00)
--- NOTE | 2022-11-22 16:56 | Hospitalist Progress Note ---
Date of Service November 22, 2022 Assessment & Plan (1) Schizoaffective disorder: (2) Unable to care for self: (3) Starvation ketoacidosis: Plan 42-year-old male with PMH of schizoaffective disorder, catatonia who presents after being found minimally responsive and covered in feces on a welfare check. He was brought to the hospital. Found to have starvation ketosis with anion gap metabolic acidosis. Hearing from [facility] This was done in presence of the casework manager by previous provider, Dr. Barry Received notification that Sho Diaz (pt's mom) was appointed emergency guardian over pt until a hearing on November 24 to determine whether it will be made permanent. After reviewing the forwarded documentation from the court emailed by CM, mother was contacted by phone on 11/21/22. She advised that she would like PPN given and medications administered as possible. She also stated that she would like further discussion with psychiatry- psychiatry advised that mom was contacted on 11/22/22 for further discussion. Appreciate psych's recs and assistance -current psychiatric meds will be discontinued. Daytrana patch 36 mg transdermal with removal after 9 hrs was recommended for treatment at this point. Schizoaffective disorder with catatonia Patient was admitted for 5 months from 02/2021 to 06/2021 in psychiatric unit here in the hospital. Had neurology evaluation including MRI brain which was normal. CT head without acute intracranial abnormality, tox screen negative Current presentation similar as well. Been having incontinence of bladder and bowel and not been eating and drinking Discussed with the nurses and was advised to push food and medications Psychiatry contacted once more as noted above Severe malnutrition Vitamin D deficiency: PPN ordered Metabolic acidosis likely due to starvation ketosis. Conjunctivitis, assume bacterial : Started on tx for assumed bacterial conjunctivitis given purulent discharge from eyes and presentation; pt refusing medication DVT Ppx: SQ lovenox Code status: FULL PCP: Rob Dispo: Awaiting placement Admission and Anticipated Discharge Date Admission Date: November 03, 2022 Subjective Seen this AM, was not able to be aroused once more. Notified by pharmacy that PPN was being given with monitoring of labs. Review of Systems Review of Systems: Unobtainable due to reduced consciousness Physical Exam Physical Exam: General: laying in bed, unresponsive Skin: No noted rashes or bruises Psych: could not be evaluated as was unresponsive Neuro: unarousable HEENT: NC/AT Chest: Nontender to palpation. CV: RRR Resp: Breath sounds clear bilaterally Abdomen: Soft, nontender, nondistended. Extremities: No edema in lower extremities bilaterally. Results & Data Results & Data Vital Signs (Past 12 Hours) Vital Signs Temp Pulse Resp BP Pulse Ox O2 Del Method 11/22/22 16:14 36.7 C 82 16 110/75 97 Room Air 11/22/22 07:30 36.5 C 61 16 115/80 96 Room Air
[2022-11-22 19:59] LABS: BUN Creatinine Ratio 18.9 (10-20); Calcium 9.1 mg/dl (8.6-10.3); Creatinine Clr Calc Pharmacy 152.4 ml/min; Est GFR (African American) 131.9 ml/min; Est GFR (Non-African American) 113.8 ml/min; Magnesium 2.1 mg/dl (1.7-2.4); Phosphorus 2.7 mg/dl (2.5-4.9); Potassium 3.9 mmol/L (3.5-5.1)
[2022-11-23 07:41] LABS: Basophils # (auto) 0.06 K/uL (0-0.2); Basophils % (auto) 0.7 %; Eosinophils # (auto) 0.29 K/uL (0-0.50); Eosinophils % (auto) 3.3 %; Hematocrit (blood only) 43.5 % (42.0-52.0); Hemoglobin 15.5 g/dl (14.0-18.0); Immature Granulocytes # (auto) 0.05 K/uL (0.01-0.20); Immature Granulocytes % (auto) 0.6 %; Lymphocytes # (auto) 1.92 K/uL (1.2-3.4); Lymphocytes % (auto) 22.1 %; Mean Corpuscular Hemoglobin 30.9 pg (25.0-34.0); Mean Corpuscular Hgb Conc 35.6 g/dL (32.0-36.0); Mean Corpuscular Volume 86.7 fL (80.0-100.0); Mean Platelet Volume 11.5 fL (9.4-12.4); Monocytes % (auto) 9.2 %; Neutrophils # (auto) 5.57 K/uL (1.40-6.50); Neutrophils % (auto) 64.1 %; Platelet Count 175 K/uL (130-400); RDW Coefficient of Variation 12.7 % (11.5-14.5); RDW Standard Deviation 39.6 fL (36.4-46.3); Red Blood Count 5.02 M/uL (4.70-6.10); White Blood Count 8.69 K/ul (4.8-10.8)
[2022-11-23 07:52] LABS: BUN Creatinine Ratio 21.4 (10-20); Calcium 8.9 mg/dl (8.6-10.3); Creatinine Clr Calc Pharmacy 161.1 ml/min; Est GFR (African American) 134.9 ml/min; Est GFR (Non-African American) 116.4 ml/min; Phosphorus 3.1 mg/dl (2.5-4.9); Potassium 3.4 mmol/L (3.5-5.1)
[2022-11-23] MEDS: ENOXAPARIN INJ 40 MG/0.4 ML SYR SQ SCH (08:37)
[2022-11-23] MEDS: ADVANCED PROBIOTIC 1250 MG CAPSULE PO SCH (08:37)
[2022-11-23] MEDS: CEROVITE ADV FORMULA TAB PO SCH (08:38)
[2022-11-23] MEDS: TRIMETHOPRIM/POLYMYXIN B OP SCH ×4 (08:38→21:08)
--- NOTE | 2022-11-23 08:49 | Communication Note ---
Date of Service: November 23, 2022 case reviewed, no change overnight. Pharmacy to review non-formulary request on 11/24/22. I am currently providing clinical consultation but as supervisor cigarette making department also engage in administrative review of ethics of this case, particularly given complex presentation and involuntary commitment to medical requiring TPN. Mother is able to consent to medications/treatment based on emergency guardianship paperwork but this would typically not include ECT. Patient has previously made it clear he does not want ECT as a treatment modality. Although she would be in support of IM antipsychotics he is not acutely agitated/hallucinating, has historically poor response to Zyprexa (actually losing weight on it last stay), and had voiced that not wanting Haldol. Mother is also aware he does not like this medication and it was low yield last trial. As I do not see [facility] records from his most recent hospital stay on the chart will request, mother agreed to sign SHERRON via secure email.
[2022-11-23] MEDS ORDERED: DAYTRANA TD SCH (09:00)
[2022-11-23] MEDS: METHYLPHENIDATE 30 MG TD SCH (09:27)
[2022-11-23] MEDS ORDERED: POTASSIUM ACETATE 20 MEQ in SODIUM CHLORIDE 0.9% 250 ML IV ONE (09:30)
[2022-11-23] MEDS ORDERED: [UNRECOGNIZED DRUG - OTHER] IV SCH (16:00)
[2022-11-23] MEDS ORDERED: PERIPHERAL TPN IV SCH (16:00)
[2022-11-23] MEDS ORDERED: CLINOLIPID 20% IV FAT EMULSION 250 ML IV ONE (16:00)
--- NOTE | 2022-11-23 21:38 | Hospitalist Progress Note ---
Date of Service November 23, 2022 Assessment & Plan (1) Schizoaffective disorder: (2) Unable to care for self: (3) Starvation ketoacidosis: Plan 42-year-old male with PMH of schizoaffective disorder, catatonia who presents after being found minimally responsive and covered in feces on a welfare check. He was brought to the hospital. Found to have starvation ketosis with anion gap metabolic acidosis. Hearing from [facility] This was done in presence of the case filler by previous provider, Dr. Barry Received notification that Sho Diaz (pt's mother) was appointed emergency guardian over pt until a hearing on November 24 to determine whether it will be made permanent. After reviewing the forwarded documentation from the court emailed by CM, mother was contacted by phone on 11/21/22. She advised that she would like PPN given and medications administered as possible. She also stated that she would like further discussion with psychiatry- psychiatry advised that mom was contacted on 11/22/22 for further discussion. Appreciate psych's recs and assistance -current psychiatric meds will be discontinued. Daytrana patch 36 mg transdermal with removal after 9 hrs was recommended for treatment at this point. Sho Diaz (pt's mother and emergency guardian) can be reached at [phone] Schizoaffective disorder with catatonia Patient was admitted for 5 months from 02/2021 to 06/2021 in psychiatric unit her e in the hospital. Had neurology evaluation including MRI brain which was normal. CT head without acute intracranial abnormality, tox screen negative Current presentation similar as well. Been having incontinence of bladder and bowel and not been eating and drinking Discussed with the nurses and was advised to push food and medications Psychiatry contacted once more as noted above Severe malnutrition Vitamin D deficiency: PPN ordered Metabolic acidosis likely due to starvation ketosis. Conjunctivitis, assume bacterial : Started on tx for assumed bacterial conjunctivitis given purulent discharge from eyes and presentation; pt refusing medication DVT Ppx: SQ lovenox Code status: FULL PCP: Rob Dispo: Awaiting placement Sho Diaz (Mother) - can be reached at [phone] Admission and Anticipated Discharge Date Admission Date: November 03, 2022 Subjective Seen this AM, was not able to be aroused once more. On PPN. Review of Systems Review of Systems: Unobtainable due to reduced consciousness Physical Exam Physical Exam: General: laying in bed, unresponsive Skin: No noted rashes or bruises Psych: could not be evaluated as was unresponsive Neuro: unarousable HEENT: NC/AT Chest: Nontender to palpation. CV: RRR Resp: Breath sounds clear bilaterally Abdomen: Soft, nontender, nondistended. Extremities: No edema in lower extremities bilaterally. Results & Data Results & Data Vital Signs (Past 12 Hours) Vital Signs Temp Pulse Resp BP BP Pulse Ox O2 Del Method 11/23/22 21:14 37.2 C 108 H 20 132/84 94 Room Air 11/23/22 15:15 36.7 C 81 18 112/75 95 Room Air
[2022-11-23] MEDS: STOP CLINOLIPID SCH (22:07)
[2022-11-24] MEDS: METHYLPHENIDATE 30 MG TD SCH (09:18)
[2022-11-24] MEDS: ENOXAPARIN INJ 40 MG/0.4 ML SYR SQ SCH (09:18)
[2022-11-24] MEDS: CEROVITE ADV FORMULA TAB PO SCH (09:19)
[2022-11-24] MEDS: ADVANCED PROBIOTIC 1250 MG CAPSULE PO SCH (09:19)
[2022-11-24] MEDS: TRIMETHOPRIM/POLYMYXIN B OP SCH ×4 (09:19→21:49)
[2022-11-24 10:32] LABS: Basophils # (auto) 0.07 K/uL (0-0.2); Basophils % (auto) 0.9 %; Eosinophils # (auto) 0.18 K/uL (0-0.50); Eosinophils % (auto) 2.3 %; Hematocrit (blood only) 43.8 % (42.0-52.0); Hemoglobin 15.4 g/dl (14.0-18.0); Immature Granulocytes # (auto) 0.04 K/uL (0.01-0.20); Immature Granulocytes % (auto) 0.5 %; Lymphocytes # (auto) 1.69 K/uL (1.2-3.4); Lymphocytes % (auto) 21.2 %; Mean Corpuscular Hemoglobin 30.9 pg (25.0-34.0); Mean Corpuscular Hgb Conc 35.2 g/dL (32.0-36.0); Mean Platelet Volume 11.7 fL (9.4-12.4); Neutrophils # (auto) 5.21 K/uL (1.40-6.50); Neutrophils % (auto) 65.1 %; Platelet Count 148 K/uL (130-400); RDW Coefficient of Variation 12.5 % (11.5-14.5); RDW Standard Deviation 39.9 fL (36.4-46.3); Red Blood Count 4.98 M/uL (4.70-6.10); White Blood Count 7.99 K/ul (4.8-10.8)
[2022-11-24 10:48] LABS: BUN Creatinine Ratio 17.6 (10-20); Calcium 9.1 mg/dl (8.6-10.3); Creatinine Clr Calc Pharmacy 152.9 ml/min; Est GFR (African American) 131.9 ml/min; Est GFR (Non-African American) 113.8 ml/min; Magnesium 2.1 mg/dl (1.7-2.4); Phosphorus 3.4 mg/dl (2.5-4.9); Potassium 3.7 mmol/L (3.5-5.1)
--- NOTE | 2022-11-24 12:56 | Hospitalist Progress Note ---
Date of Service November 24, 2022 Assessment & Plan (1) Schizoaffective disorder: (2) Unable to care for self: (3) Starvation ketoacidosis: (4) Severe malnutrition: Plan 42-year-old male with PMH of schizoaffective disorder, catatonia who presents after being found minimally responsive and covered in feces on a welfare check. He was brought to the hospital. Found to have starvation ketosis with anion gap metabolic acidosis Schizoaffective disorder with catatonia Patient was admitted for 5 months from 02/2021 to 06/2021 in psychiatric unit here in the hospital. Had neurology evaluation including MRI brain which was normal. CT head without acute intracranial abnormality, tox screen negative Ongoing incontinence of bladder and bowel and not been eating and drinking Initial trial of Ativan unsuccessful. Appreciate psych's recs and assistance -current psychiatric meds will be discontinued. Daytrana patch 36 mg transdermal with removal after 9 hrs was recommended for treatment at this point. There was a hearing to appoint his mother legal guardian until a later hearing on November 24 to determine if this will be permanent. Mother was requesting artificial feeding during this time since patinet is unresponsive. Pneumonia and sepsis was ruled out. Bacteremia 2/4 bottles positive and pt started on vancomycin on 11/03 1/4 bottles grew HEAD AND NECK SURGEON not lugdenensis and 1/4 grew anaerococcus prevoti vancomycin was stopped 11/07 as this was thought to be a contaminant. Repeat blood cultures were negative and he remains afebrile Severe malnutrition Vitamin D deficiency: PPN ongoing since 11-20 but this is a temporary solution. May need to explore PEG tube to keep up his caloric intake Metabolic acidosis likely due to starvation ketosis. resolved Conjunctivitis, assume bacterial : Started on tx for assumed bacterial conjunctivitis given purulent discharge from eyes and presentation; pt refused medication DVT Ppx: SQ lovenox Code status: FULL PCP: Tierneytervictoriano Dispo: Awaiting placement DO Negro Cantu Hospitalist Admission and Anticipated Discharge Date Admission Date: November 03, 2022 Subjective 42 yo M with known history of schizoaffective disorder and patterned periods of unresponsiveness similar to catatonia presents after being found unresponsive and covered wtih feces in his apartment during a wellness check. The patient has a variety of social obstacles and per his therapist, will likely need state hospitalization ultimately. He presented with sepsis thought 2/2 pneumonia with starvation ketosis and has continued to remain unresponsive through this hospital stay. He has been on PPN since 11-20 and emergency guardianship has been appointed. Review of Systems Review of Systems: declines communication Physical Exam Physical Exam: CONSTITUTIONAL: WNWD, vitals as above, generally NAD, lying supine in bed EYES: refuses to poen his eyes for me and doesn't make eye contact, ENT: external ear and nose normal, MMM NECK: trachea midline, RESPIRATORY: clear to auscultation bilaterally, no crackles, rales or wheezes, normal respiratory effort CARDIOVASCULAR: regular rate and rhythm, S1 and 2 heard without murmurs, gallops or rubs, no JVD, no peripheral edema, CHEST: inspection of chest was normal GASTROINTESTINAL: soft, nontender, ND, no guarding MUSCULOSKELETAL: strength 5/5 throughout, head is normocephalic and atraumatic, SKIN: warm and dry, NEUROLOGIC: unresponsive without obtundation PSYCHIATRIC: awake, declines to make eye contact or communicate Results & Data Results & Data Vital Signs (Past 12 Hours) Vital Signs Temp Pulse Resp BP Pulse Ox O2 Del Method 11/24/22 09:16 37.2 C 90 17 127/82 93 Room Air Laboratory Results Short CBC 11/24/22 Range/Units 09:36 WBC 7.99 (4.8-10.8) K/ul Hgb 15.4 (14.0-18.0) g/dl Hct 43.8 (42.0-52.0) % Plt Count 148 (130-400) K/uL BMP 11/24/22 09:36 Sodium 143 Potassium 3.7 Chloride 109 H Carbon Dioxide 26 BUN 13 Creatinine 0.74 Glucose 116 H Calcium 9.1 Medications Administered Current Inpatient Medications Acetaminophen (Acetaminophen 325 Mg Tab) 650 mg PO Q4H PRN PRN Reason: Pain or Fever Stop: 12/03/22 18:56 Enoxaparin Sodium (Enoxaparin Inj 40 Mg/0.4 Ml Syr) 40 mg SQ QAM [facility] Stop: 12/16/22 12:14 Last Admin: 11/24/22 09:18 Dose: Not Given Ergocalciferol (Ergocalciferol 50,000 Units 1250 Mcg Cap) 50,000 units PO Q7D@0900 [facility] Stop: 12/24/22 09:01 Last Admin: 11/19/22 09:10 Dose: Not Given Dextrose (D10w) 1,000 mls @ 0 mls/hr IV .Q0M PRN PRN Reason: protocol (see label comments) Stop: 12/20/22 13:29 Amino Acids 1,622 ml/ (Nutrition (Parenteral)) 1,622 mls @ 67.5 mls/hr IV .Q24H [facility]; Protocol Stop: 11/24/22 15:59 Last Admin: 11/23/22 15:53 Dose: 67.5 mls/hr Fat Emulsion-[place] Oil/Soybean Oil (Clinolipid 20% Iv Fat Emulsion) 250 mls @ 41.67 mls/hr IV .Q6H [facility] Stop: 11/24/22 21:59 Amino Acids 1,622 ml/ (Nutrition (Parenteral)) 1,622 mls @ 67.5 mls/hr IV .Q24H [facility]; Protocol Stop: 12/24/22 15:59 Lactobacillus Acidophilus (Advanced Probiotic 1250 Mg Capsule) 2 cap PO DAILY [facility] Stop: 12/05/22 13:29 Last Admin: 11/24/22 09:19 Dose: Not Given Lorazepam (Lorazepam 1 Mg Tab) 1 mg PO Q6H PRN PRN Reason: Anxiety Stop: 12/08/22 17:08 Miscellaneous (Stop Clinolipid) 1 each N/A TODAY@22 [facility] Stop: 12/23/22 21:59 Last Admin: 11/23/22 22:07 Dose: 1 each Miscellaneous (Stop Clinolipid) 1 each N/A @22 [facility] Stop: 12/24/22 21:59 Miscellaneous (Stop Clinolipid) 1 each N/A @22 [facility] Stop: 12/24/22 21:59 Miscellaneous Information (Tpn/Ppn Consult Pharmacy) 1 each N/A UD PRN PRN Reason: Consult Stop: 12/20/22 13:40 Multivitamins/Minerals (Cerovite Adv Formula Tab) 1 tab PO QAM [facility] Stop: 12/06/22 08:59 Last Admin: 11/24/22 09:19 Dose: Not Given Non-Formulary Medication (Daytrana) 30 mg TD QAM [facility] Stop: 12/23/22 08:59 Last Admin: 11/24/22 09:18 Dose: Not Given Ondansetron HCl (Ondansetron Inj 2 Mg/Ml 2 Ml Vial) 4 mg IV Q6H PRN PRN Reason: Nausea Stop: 12/03/22 18:56 Polyethylene Glycol (Polyethylene (Miralax) 17 Gm Pack) 17 gm PO DAILY PRN PRN Reason: Constipation Stop: 12/03/22 18:56 Polymyxin/Trimethoprim Sulfate (Trimethoprim/Polymyxin B) 2 drops OP QID [facility] Stop: 12/03/22 20:59 Last Admin: 11/24/22 09:19 Dose: Not Given
--- NOTE | 2022-11-24 13:55 | Communication Note ---
Date of Service: November 24, 2022 case reviewed, no change, pharmacy approved nonformulary request and Daytrana patch should be available to start in am. Liaison updated mother who is also c ompleting SHERRON for [facility] records.
[2022-11-24] MEDS ORDERED: CLINOLIPID 20% IV FAT EMULSION 250 ML IV ONE (16:00)
[2022-11-24] MEDS: PERIPHERAL TPN IV SCH (16:06)
[2022-11-24] MEDS: [UNRECOGNIZED DRUG - OTHER] IV SCH (16:06)
[2022-11-24] MEDS ORDERED: STOP CLINOLIPID SCH (22:00)
[2022-11-24] MEDS: STOP CLINOLIPID SCH ×2 (22:20)
[2022-11-25 07:45] LABS: Basophils # (auto) 0.08 K/uL (0-0.2); Basophils % (auto) 0.9 %; Eosinophils # (auto) 0.26 K/uL (0-0.50); Eosinophils % (auto) 2.9 %; Hematocrit (blood only) 44.2 % (42.0-52.0); Hemoglobin 15.1 g/dl (14.0-18.0); Immature Granulocytes # (auto) 0.04 K/uL (0.01-0.20); Immature Granulocytes % (auto) 0.4 %; Lymphocytes # (auto) 2.35 K/uL (1.2-3.4); Lymphocytes % (auto) 25.8 %; Mean Corpuscular Hemoglobin 30.6 pg (25.0-34.0); Mean Corpuscular Hgb Conc 34.2 g/dL (32.0-36.0); Mean Corpuscular Volume 89.7 fL (80.0-100.0); Mean Platelet Volume 12.1 fL (9.4-12.4); Monocytes # (auto) 1.04 K/uL (0.11-0.59); Monocytes % (auto) 11.4 %; Neutrophils # (auto) 5.33 K/uL (1.40-6.50); Neutrophils % (auto) 58.6 %; Platelet Count 158 K/uL (130-400); RDW Coefficient of Variation 12.5 % (11.5-14.5); Red Blood Count 4.93 M/uL (4.70-6.10)
[2022-11-25 08:19] LABS: BUN Creatinine Ratio 20.3 (10-20); Calcium 9.1 mg/dl (8.6-10.3); Creatinine Clr Calc Pharmacy 153.5 ml/min; Est GFR (African American) 131.9 ml/min; Est GFR (Non-African American) 113.8 ml/min; Magnesium 2.2 mg/dl (1.7-2.4); Potassium 3.9 mmol/L (3.5-5.1)
[2022-11-25] MEDS: CEROVITE ADV FORMULA TAB PO SCH (09:04)
[2022-11-25] MEDS: ADVANCED PROBIOTIC 1250 MG CAPSULE PO SCH (09:04)
[2022-11-25] MEDS: ENOXAPARIN INJ 40 MG/0.4 ML SYR SQ SCH (09:04)
[2022-11-25] MEDS: METHYLPHENIDATE 30 MG TD SCH ×2 (11:37→12:01)
--- NOTE | 2022-11-25 14:25 | Psychiatric Progress Note ---
Date of Service November 25, 2022 Impression / Recommendations Impression David Diaz is a 42 yo man with a history of schizoaffective disorder admitted medically for severe decompensation with malnutrition and inability to care for himself most likely due to acute exacerbation of his schizoaffective disorder with current episode of severe neurovegetative depression. On an outpatient 304 commitment that expires 12/09/2022. 11/23/22: unchanged, requiring nutritional support (1) Schizoaffective disorder, depressive type: Plan will remove Daytrana patch a little early tonight as started late, say 8 pm. liaison notified. Will reassess tomorrow, depending on response may retry Ativan IV in combo with stimulant. Appears to be tolerating at this time. Suicide Risk Level Suicide Risk Level: Low (q15 min observation checks) Suicide Risk Level Comments: pt has voiced no suicidal thoughts Interval History Identifying Information David Diaz is a 42 yo man with a history of schizoaffective disorder admitted medically for severe decompensation with malnutrition, sepsis and metabolic acidosis. Currently on a 304 commitment. Chief Complaint started Daytrana trial. Review of Systems Notes patient unable to answer Subjective Subjective Patient was seen & assessed and interval progress reviewed with nursing. Seen within 2 hours of application of first Daytrana patch. Patient was alert when I walked in the room but pretended to close eyes when approached. TPN infusing. Physical Exam Psychiatric alert, guarded, no posturing, does not appear to be responding to internal stimuli, won't follow commands Vital Signs (Past 24 Hours) Last Vital Signs Temp 37.1 C 11/25/22 09:02 Pulse 88 11/25/22 09:02 Resp 18 11/25/22 09:02 BP 120/81 11/25/22 09:02 Pulse Ox 95 11/25/22 09:02 O2 Del Method Room Air 11/25/22 09:02 Results & Data ([facility]) Laboratory Results Laboratory Results - last 24 hr 11/25/22 11/25/22 06:39 06:39 WBC 9.10 RBC 4.93 Hgb 15.1 Hct 44.2 MCV 89.7 MCH 30.6 MCHC 34.2 RDW Std Deviation 41.0 RDW Coeff of [place] 12.5 Plt Count 158 MPV 12.1 Immature Gran % (Auto) 0.4 Neut % (Auto) 58.6 Lymph % (Auto) 25.8 [place] % (Auto) 11.4 Eos % (Auto) 2.9 Baso % (Auto) 0.9 Neut # (Auto) 5.33 Lymph # (Auto) 2.35 [place] # (Auto) 1.04 H Eos # (Auto) 0.26 Baso # (Auto) 0.08 Immature Gran # (Auto) 0.04 Sodium 141 Potassium 3.9 Chloride 106 Carbon Dioxide 28 Anion Gap 7 BUN 15 Creatinine 0.74 Est Cr Clr Drug Dosing 153.5 Est GFR ( Amer) 131.9 Est GFR (Non-Af Amer) 113.8 BUN/Creatinine Ratio 20.3 H Glucose 106 H Calcium 9.1 Phosphorus 4.0 Magnesium 2.2 Current Inpatient Medications Current Inpatient Medications: Current Inpatient Medications Acetaminophen (Acetaminophen 325 Mg Tab) 650 mg PO Q4H PRN PRN Reason: Pain or Fever Stop: 12/03/22 18:56 Enoxaparin Sodium (Enoxaparin Inj 40 Mg/0.4 Ml Syr) 40 mg SQ QAM OG Stop: 12/16/22 12:14 Last Admin: 11/25/22 09:04 Dose: Not Given Ergocalciferol (Ergocalciferol 50,000 Units 1250 Mcg Cap) 50,000 units PO Q7D@0900 OG Stop: 12/24/22 09:01 Last Admin: 11/19/22 09:10 Dose: Not Given Dextrose (D10w) 1,000 mls @ 0 mls/hr IV .Q0M PRN PRN Reason: protocol (see label comments) Stop: 12/20/22 13:29 Amino Acids 1,622 ml/ (Nutrition (Parenteral)) 1,622 mls @ 67.5 mls/hr IV .Q24H OG; Protocol Stop: 12/24/22 15:59 Last Admin: 11/24/22 16:06 Dose: 67.5 mls/hr Amino Acids 2,146 ml/ (Nutrition (Parenteral)) 2,146 mls @ 89 mls/hr IV .Q24H OG; Protocol Stop: 12/25/22 15:59 Fat Emulsion-[place] Oil/Soybean Oil (Clinolipid 20% Iv Fat Emulsion) 250 mls @ 41.67 mls/hr IV .Q6H ONE Stop: 11/25/22 21:59 Lactobacillus Acidophilus (Advanced Probiotic 1250 Mg Capsule) 2 cap PO DAILY [facility] Stop: 12/05/22 13:29 Last Admin: 11/25/22 09:04 Dose: Not Given Lorazepam (Lorazepam 1 Mg Tab) 1 mg PO Q6H PRN PRN Reason: Anxiety Stop: 12/08/22 17:08 Methylphenidate HCl (Methylphenidate 30 Mg Tdsy) 30 mg TD QAM [facility] Stop: 12/09/22 11:44 Last Admin: 11/25/22 12:01 Dose: 30 mg Miscellaneous (Stop Clinolipid) 1 each N/A TODAY@22 [facility] Stop: 12/24/22 21:59 Last Admin: 11/24/22 22:20 Dose: 1 each Miscellaneous (Remove Patch) 1 each N/A DAILY@1800 [facility] Stop: 12/25/22 20:59 Miscellaneous Information (Tpn/Ppn Consult Pharmacy) 1 each N/A UD PRN PRN Reason: Consult Stop: 12/20/22 13:40 Multivitamins/Minerals (Cerovite Adv Formula Tab) 1 tab PO QAM [facility] Stop: 12/06/22 08:59 Last Admin: 11/25/22 09:04 Dose: Not Given Ondansetron HCl (Ondansetron Inj 2 Mg/Ml 2 Ml Vial) 4 mg IV Q6H PRN PRN Reason: Nausea Stop: 12/03/22 18:56 Polyethylene Glycol (Polyethylene (Miralax) 17 Gm Pack) 17 gm PO DAILY PRN PRN Reason: Constipation Stop: 12/03/22 18:56
[2022-11-25] MEDS: [UNRECOGNIZED DRUG - OTHER] IV SCH (16:18)
[2022-11-25] MEDS: PERIPHERAL TPN IV SCH ×3 (16:18→16:58)
[2022-11-25] MEDS: [UNRECOGNIZED DRUG - OTHER] IV SCH ×2 (16:20→16:58)
[2022-11-25] MEDS: CLINOLIPID 20% IV FAT EMULSION 250 ML IV ONE ×2 (16:20→16:58)
--- NOTE | 2022-11-25 18:00 | Hospitalist Progress Note ---
Date of Service November 25, 2022 Assessment & Plan (1) Schizoaffective disorder: (2) Unable to care for self: (3) Starvation ketoacidosis: (4) Severe malnutrition: Plan 42-year-old male with PMH of schizoaffective disorder, catatonia who presents after being found minimally responsive and covered in feces on a welfare check. He was brought to the hospital. Found to have starvation ketosis with anion gap metabolic acidosis Schizoaffective disorder with catatonia Patient was admitted for 5 months from 02/2021 to 06/2021 in psychiatric unit here in the hospital. Had neurology evaluation including MRI brain which was normal. CT head without acute intracranial abnormality, tox screen negative Ongoing incontinence of bladder and bowel and not been eating and drinking Initial trial of Ativan unsuccessful. Appreciate psych's recs and assistance -current psychiatric meds will be discontinued. Daytrana patch 36 mg transdermal with removal after 9 hrs was recommended for treatment at this point. There was a hearing to appoint his mother legal guardian until a later hearing on November 24 to determine if this will be permanent. Mother was requesting artificial feeding during this time since patinet is unresponsive. Pneumonia and sepsis was ruled out. 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 Repeat blood cultures were negative and he remains afebrile Severe malnutrition Vitamin D deficiency: PPN ongoing since 11-20 but this is a temporary solution. May need to explore PEG tube to keep up his caloric intake Metabolic acidosis likely due to starvation ketosis. resolved Conjunctivitis, assume bacterial : Started on tx for assumed bacterial conjunctivitis given purulent discharge from eyes and presentation; pt refused medication DVT Ppx: SQ lovenox Code status: FULL PCP: Tierneytervictoriano Dispo: Awaiting placement ADDEENDUM: I was contacted late this afternoon by RN who states the patient was now communicating he didn't want any more "poison" referring to the PPN. He put his hand over the idea blocking any attempt to continue it. PPN was stopped and RN attempting to feed patient. Cont methylphenidate patch DO Negro Cantu Hospitalist Admission and Anticipated Discharge Date Admission Date: November 03, 2022 Subjective 42 yo M with known history of schizoaffective disorder and patterned periods of unresponsiveness similar to catatonia presents after being found unresponsive and covered wtih feces in his apartment during a wellness check. The patient has a variety of social obstacles and per his therapist, will likely need state hospitalization ultimately. He presented with sepsis thought 2/2 pneumonia with starvation ketosis and has continued to remain unresponsive through this hospital stay. He has been on PPN since 11-20 and emergency guardianship has been appointed. Review of Systems Review of Systems: declines communication Physical Exam Physical Exam: CONSTITUTIONAL: WNWD, vitals as above, generally NAD, lying supine in bed EYES: refuses to poen his eyes for me and doesn't make eye contact, ENT: external ear and nose normal, MMM NECK: trachea midline, RESPIRATORY: clear to auscultation bilaterally, no crackles, rales or wheezes, normal respiratory effort CARDIOVASCULAR: regular rate and rhythm, S1 and 2 heard without murmurs, gallops or rubs, no JVD, no peripheral edema, CHEST: inspection of chest was normal GASTROINTESTINAL: soft, nontender, ND, no guarding MUSCULOSKELETAL: strength 5/5 throughout, head is normocephalic and atraumatic, SKIN: warm and dry, NEUROLOGIC: unresponsive without obtundation PSYCHIATRIC: awake, declines to make eye contact or communicate Results & Data Results & Data Vital Signs (Past 12 Hours) Vital Signs Temp Pulse Resp BP BP Pulse Ox O2 Del Method 11/25/22 16:17 37.1 C 83 18 113/77 95 Room Air 11/25/22 09:02 37.1 C 88 18 120/81 95 Room Air 11/25/22 07:55 36.9 C 101 H 20 114/79 95 Room Air 11/25/22 07:45 Room Air Laboratory Results Short CBC 11/25/22 Range/Units 06:39 WBC 9.10 (4.8-10.8) K/ul Hgb 15.1 (14.0-18.0) g/dl Hct 44.2 (42.0-52.0) % Plt Count 158 (130-400) K/uL BMP 11/25/22 06:39 Sodium 141 Potassium 3.9 Chloride 106 Carbon Dioxide 28 BUN 15 Creatinine 0.74 Glucose 106 H Calcium 9.1 Medications Administered Current Inpatient Medications Acetaminophen (Acetaminophen 325 Mg Tab) 650 mg PO Q4H PRN PRN Reason: Pain or Fever Stop: 12/03/22 18:56 Enoxaparin Sodium (Enoxaparin Inj 40 Mg/0.4 Ml Syr) 40 mg SQ QAM [facility] Stop: 12/16/22 12:14 Last Admin: 11/25/22 09:04 Dose: Not Given Ergocalciferol (Ergocalciferol 50,000 Units 1250 Mcg Cap) 50,000 units PO Q7D@0900 [facility] Stop: 12/24/22 09:01 Last Admin: 11/19/22 09:10 Dose: Not Given Dextrose (D10w) 1,000 mls @ 0 mls/hr IV .Q0M PRN PRN Reason: protocol (see label comments) Stop: 12/20/22 13:29 Amino Acids 2,146 ml/ (Nutrition (Parenteral)) 2,146 mls @ 89 mls/hr IV .Q24H [facility]; Protocol Stop: 11/26/22 15:59 Last Admin: 11/25/22 16:58 Dose: Not Given Fat Emulsion-[place] Oil/Soybean Oil (Clinolipid 20% Iv Fat Emulsion) 250 mls @ 41.67 mls/hr IV .Q6H ONE Stop: 11/25/22 21:59 Last Admin: 11/25/22 16:58 Dose: Not Given Lactobacillus Acidophilus (Advanced Probiotic 1250 Mg Capsule) 2 cap PO DAILY [facility] Stop: 12/05/22 13:29 Last Admin: 11/25/22 09:04 Dose: Not Given Lorazepam (Lorazepam 1 Mg Tab) 1 mg PO Q6H PRN PRN Reason: Anxiety Stop: 12/08/22 17:08 Methylphenidate HCl (Methylphenidate 30 Mg Tdsy) 30 mg TD QAM [facility] Stop: 12/09/22 11:44 Last Admin: 11/25/22 12:01 Dose: 30 mg Miscellaneous (Stop Clinolipid) 1 each N/A TODAY@22 [facility] Stop: 12/24/22 21:59 Last Admin: 11/24/22 22:20 Dose: 1 each Miscellaneous (Remove Patch) 1 each N/A DAILY@1800 [facility] Stop: 12/25/22 20:59 Miscellaneous Information (Tpn/Ppn Consult Pharmacy) 1 each N/A UD PRN PRN Reason: Consult Stop: 12/20/22 13:40 Multivitamins/Minerals (Cerovite Adv Formula Tab) 1 tab PO QAM [facility] Stop: 12/06/22 08:59 Last Admin: 11/25/22 09:04 Dose: Not Given Ondansetron HCl (Ondansetron Inj 2 Mg/Ml 2 Ml Vial) 4 mg IV Q6H PRN PRN Reason: Nausea Stop: 12/03/22 18:56 Polyethylene Glycol (Polyethylene (Miralax) 17 Gm Pack) 17 gm PO DAILY PRN PRN Reason: Constipation Stop: 12/03/22 18:56
[2022-11-25] MEDS: STOP CLINOLIPID SCH (22:23)
[2022-11-26 08:45] LABS: BUN Creatinine Ratio 19.8 (10-20); Calcium 9.2 mg/dl (8.6-10.3); Creatinine Clr Calc Pharmacy 131.9 ml/min; Magnesium 2.2 mg/dl (1.7-2.4); Phosphorus 4.3 mg/dl (2.5-4.9); Potassium 4.2 mmol/L (3.5-5.1)
[2022-11-26] MEDS: ENOXAPARIN INJ 40 MG/0.4 ML SYR SQ SCH (10:05)
[2022-11-26] MEDS: ADVANCED PROBIOTIC 1250 MG CAPSULE PO SCH (10:05)
[2022-11-26] MEDS: ERGOCALCIFEROL 50,000 UNITS 1250 MCG CAP PO SCH (10:05)
[2022-11-26] MEDS: CEROVITE ADV FORMULA TAB PO SCH (10:06)
[2022-11-26] MEDS: METHYLPHENIDATE 30 MG TD SCH (10:38)
--- NOTE | 2022-11-26 10:55 | Pharmacy Report ---
PHA: Parenteral Nutrition Con - Date of Service November 26, 2022 - Scope Pharmacy was consulted on 11/21 to manage parenteral nutrition orders for this patient. - Subjective The patient is currently on day 5 of peripheral parenteral nutrition - Objective Height: 5 ft 10 in Weight: 98.8 kg Intake & Output (24hrs):: Intake & Output 11/24/22 11/25/22 11/26/22 11/27/22 06:59 06:59 06:59 06:59 Intake Total 2047.800 / 2047.800 1872 / 1872 1622 / 1622 Output Total 850 / 850 800 / 800 800 / 800 Balance 1197.800 / 8690.012 0611 / 1072 822 / 822 Weight 98.3 kg 99.1 kg 98.9 kg 98.8 kg Laboratory Data (Last 24 Hr):: 11/26/22 07:52 Sodium 140 Potassium 4.2 Chloride 108 H Carbon Dioxide 24 BUN 17 Creatinine 0.86 Glucose 97 Calcium 9.2 Phosphorus 4.3 Magnesium 2.2 Nutrition Assessment:: Please refer to the Notes section of the EMR for the most recent top frame maker note. - Plan Patient refusing PPN yesterday 11/25 - Spoke with RN this morning and patient not taking any oral intake. Discussed with provider and would like to continue with PPN again today, will place order - Had planned to increase TPN macronutrients yesterday closer to goal Kcal, will continue with plan today. Discussed with provider the limitations of peripheral access and PPN and not being able to achieve goal Kcals. Plan is to continue to monitor and reassess need for central line. For day 5 of PN administration, the following will be ordered: * K and Phos trending up today - will decrease in PPN today * Cl elevated, will continue to minimize Cl in PPN Macronutrients Amino acids 85 grams/day Dextrose 100 grams/day Lipids 50 grams/day Micronutrients Sodium phosphate 18 MMol Sodium chloride 30 mEq Sodium acetate 120 mEq Potassium acetate 60 mEq Magnesium sulfate 8.12 mEq Calcium gluconate 4.65 mEq Multivitamins 10 mL Trace Elements 1 mL Additional additives: 1 mg folic acid, 100 mg thiamine Total volume 2132 mL to be infused over 24 hrs will provide 1180 kcal/day Final osmolarity 856 mOsm/L (maximum for PPN is 900 mOsm/L) Labs, as indicated, will be ordered per protocol Pharmacy will continue to follow and adjust parenteral nutrition orders on a daily basis. Thank you for allowing us to participate in the care of this patient.
--- NOTE | 2022-11-26 12:04 | Psychiatric Progress Note ---
Date of Service November 26, 2022 Impression / Recommendations Impression David Diaz is a 42 yo man with a history of schizoaffective disorder admitted medically for severe decompensation with malnutrition and inability to care for himself most likely due to acute exacerbation of his schizoaffective disorder with current episode of severe neurovegetative depression. On an outpatient 304 commitment that expires 12/09/2022. 11/26/22: some positive stimulant effect of patch yesterday as more ability to interact (1) Schizoaffective disorder, depressive type: Plan delay consideration for rechallenge with Ativan in combo with the patch as currently appears that he may have removed patch. Dr. Gay notified. Also for clarification around patient's capacity--he continues to lack capacity to refuse care like TPN and Daytrana patch. Mother is guardian and has consented to these treatments. The treatments should be administered at this time even if he verbalizes a declination. However, if he is physically blocking their admin, discussed with Dr. Gay that I don't feel it's ethical to restrain him in the moment unless other behavioral emergency or acute decompensation necessitates more immediate administration. For example, he had been receiving regular TPN and his labs were fine, etc. Interval History Identifying Information aDvid Diaz is a 42 yo man with a history of schizoaffective disorder admitted medically for severe decompensation with malnutrition, sepsis and metabolic acidosis. Currently on a 304 commitment. Chief Complaint nonverbal this am Subjective Subjective Patient was seen & assessed and interval progress reviewed with nursing and Dr. Gay. David was more alert yesterday pm following initiation of transdermal patch and after being nonverbal for several days verbalized toileting needs to nursing. His TPN was held seeming as he verbalized he didn't want poison. Today I came to examine patient's patch site and happened to coincide with bath by aide. patient did not appear to be wearing patch on hip despite admin. I did not see scratches or redness on his hip or the patch visibly in bed clothes but full search likely need done if aide confirms. He did have evidence that he was superficially scratching his abdomen with finger nails. Physical Exam Psychiatric nonverbal, no eye contact, everts gaze, no posturing Vital Signs (Past 24 Hours) Last Vital Signs Temp 36.9 C 07/19/23 07:49 Pulse 108 H 11/26/22 07:49 Resp 16 11/26/22 07:49 BP 114/78 11/26/22 07:49 Pulse Ox 93 11/26/22 08:07 O2 Del Method Room Air 11/26/22 08:07 Results & Data ([facility]) Laboratory Results Laboratory Results - last 24 hr 11/26/22 07:52 Sodium 140 Potassium 4.2 Chloride 108 H Carbon Dioxide 24 Anion Gap 8 BUN 17 Creatinine 0.86 Est Cr Clr Drug Dosing 131.9 Est GFR ( Amer) 124.0 Est GFR (Non-Af Amer) 107.0 BUN/Creatinine Ratio 19.8 Glucose 97 Calcium 9.2 Phosphorus 4.3 Magnesium 2.2 Current Inpatient Medications Current Inpatient Medications: Current Inpatient Medications Acetaminophen (Acetaminophen 325 Mg Tab) 650 mg PO Q4H PRN PRN Reason: Pain or Fever Stop: 12/03/22 18:56 Enoxaparin Sodium (Enoxaparin Inj 40 Mg/0.4 Ml Syr) 40 mg SQ QAM OG Stop: 12/16/22 12:14 Last Admin: 11/26/22 10:05 Dose: Not Given Ergocalciferol (Ergocalciferol 50,000 Units 1250 Mcg Cap) 50,000 units PO Q7D@0900 OG Stop: 12/24/22 09:01 Last Admin: 11/26/22 10:05 Dose: Not Given Dextrose (D10w) 1,000 mls @ 0 mls/hr IV .Q0M PRN PRN Reason: protocol (see label comments) Stop: 12/20/22 13:29 Amino Acids 2,146 ml/ (Nutrition (Parenteral)) 2,146 mls @ 89 mls/hr IV .Q24H OG; Protocol Stop: 11/26/22 15:59 Last Admin: 11/25/22 16:58 Dose: Not Given Amino Acids 2,132 ml/ (Nutrition (Parenteral)) 2,132 mls @ 88.8 mls/hr IV .Q24H OG; Protocol Stop: 11/27/22 15:59 Fat Emulsion-[place] Oil/Soybean Oil (Clinolipid 20% Iv Fat Emulsion) 250 mls @ 41.67 mls/hr IV .Q6H ONE Stop: 11/26/22 21:59 Lactobacillus Acidophilus (Advanced Probiotic 1250 Mg Capsule) 2 cap PO DAILY [facility] Stop: 12/05/22 13:29 Last Admin: 11/26/22 10:05 Dose: Not Given Lorazepam (Lorazepam 1 Mg Tab) 1 mg PO Q6H PRN PRN Reason: Anxiety Stop: 12/08/22 17:08 Methylphenidate HCl (Methylphenidate 30 Mg Tdsy) 30 mg TD QAM [facility] Stop: 12/09/22 11:44 Last Admin: 11/26/22 10:38 Dose: 30 mg Miscellaneous (Stop Clinolipid) 1 each N/A TODAY@22 [facility] Stop: 12/24/22 21:59 Last Admin: 11/25/22 22:23 Dose: Not Given Miscellaneous (Remove Patch) 1 each N/A DAILY@1800 [facility] Stop: 12/25/22 20:59 Last Admin: 11/25/22 22:22 Dose: 1 each Miscellaneous Information (Tpn/Ppn Consult Pharmacy) 1 each N/A UD PRN PRN Reason: Consult Stop: 12/20/22 13:40 Multivitamins/Minerals (Cerovite Adv Formula Tab) 1 tab PO QAM [facility] Stop: 12/06/22 08:59 Last Admin: 11/26/22 10:06 Dose: Not Given Ondansetron HCl (Ondansetron Inj 2 Mg/Ml 2 Ml Vial) 4 mg IV Q6H PRN PRN Reason: Nausea Stop: 12/03/22 18:56 Polyethylene Glycol (Polyethylene (Miralax) 17 Gm Pack) 17 gm PO DAILY PRN PRN Reason: Constipation Stop: 12/03/22 18:56
[2022-11-26] MEDS ORDERED: CLINOLIPID 20% IV FAT EMULSION 250 ML IV ONE (16:00)
[2022-11-26] MEDS ORDERED: PERIPHERAL TPN IV SCH (16:00)
[2022-11-26] MEDS ORDERED: [UNRECOGNIZED DRUG - OTHER] IV SCH (16:00)
--- NOTE | 2022-11-26 17:21 | Hospitalist Progress Note ---
Date of Service November 26, 2022 Assessment & Plan (1) Schizoaffective disorder: (2) Unable to care for self: (3) Starvation ketoacidosis: (4) Severe malnutrition: Plan 42-year-old male with PMH of schizoaffective disorder, catatonia who presents after being found minimally responsive and covered in feces on a welfare check. He was brought to the hospital. Found to have starvation ketosis with anion gap metabolic acidosis Schizoaffective disorder with catatonia Patient was admitted for 5 months from 02/2021 to 06/2021 in psychiatric unit here in the hospital. Had neurology evaluation including MRI brain which was normal. CT head without acute intracranial abnormality, tox screen negative Ongoing incontinence of bladder and bowel and not been eating and drinking Initial trial of Ativan unsuccessful. Appreciate psych's recs and assistance -Daytrana patch 36 mg transdermal , with some noted improvement of pt's symptoms. However, pt has been refusing PPN and other services. Per psych, does not have capacity, mothers wishes should be followed. There was a hearing to appoint his mother legal guardian until a later hearing to determine if this will be permanent. Mother was requesting artificial feeding during this time since patient is unres ponsive. Pneumonia and sepsis was ruled out. Bacteremia 2/4 bottles positive and pt started on vancomycin on 11/03 1/4 bottles grew CAR ICER not lugdenensis and 1/4 grew anaerococcus prevoti vancomycin was stopped 11/07 as this was thought to be a contaminant. Repeat blood cultures were negative and he remains afebrile Severe malnutrition Vitamin D deficiency: PPN ongoing since 11-20 but this is a temporary solution. May need to explore PEG tube to keep up his caloric intake Metabolic acidosis likely due to starvation ketosis. resolved Conjunctivitis, assume bacterial : Started on tx for assumed bacterial conjunctivitis given purulent discharge from eyes and presentation; pt refused medication, but does not have capacity. DVT Ppx: SQ lovenox Code status: FULL PCP: Tierneytervictoriano Dispo: Awaiting placement Admission and Anticipated Discharge Date Admission Date: November 03, 2022 Subjective Seen this AM. More awake and responsive than before. On taking the covers off to examine his feet, he moved them about seeking the covers. Still nonverbal, no eye contact. Review of Systems Review of Systems: Unobtainable due to mental health condition Physical Exam Physical Exam: General: laying in bed, eyes open Skin: No noted rashes or bruises Psych: could not be evaluated as was unresponsive Neuro: able to move lower extremities HEENT: NC/AT Chest: Nontender to palpation. CV: RRR Resp: Breath sounds clear bilaterally Abdomen: Soft, nontender, nondistended. Extremities: No edema in lower extremities bilaterally. Results & Data Results & Data Vital Signs (Past 12 Hours) Vital Signs Temp Pulse Resp BP Pulse Ox Pulse Ox O2 Del Method 11/26/22 16:04 37.0 C 105 H 16 140/76 95 Room Air 11/26/22 08:07 93 11/26/22 07:49 36.9 C 108 H 16 114/78 93 Room Air O2 Del Method 11/26/22 16:04 11/26/22 08:07 Room Air 11/26/22 07:49
[2022-11-26] MEDS: TRIMETHOPRIM/POLYMYXIN B OP SCH (21:32)
[2022-11-26] MEDS: STOP CLINOLIPID SCH (23:15)
[2022-11-27] MEDS: TRIMETHOPRIM/POLYMYXIN B OP SCH ×4 (08:36→20:56)
[2022-11-27 10:10] LABS: Hematocrit (blood only) 42.9 % (42.0-52.0); Mean Corpuscular Hemoglobin 30.5 pg (25.0-34.0); Mean Corpuscular Volume 87.2 fL (80.0-100.0); Mean Platelet Volume 11.8 fL (9.4-12.4); Platelet Count 151 K/uL (130-400); RDW Coefficient of Variation 12.3 % (11.5-14.5); Red Blood Count 4.92 M/uL (4.70-6.10); White Blood Count 6.88 K/ul (4.8-10.8)
[2022-11-27] MEDS: CEROVITE ADV FORMULA TAB PO SCH (10:18)
[2022-11-27] MEDS: METHYLPHENIDATE 30 MG TD SCH (10:18)
[2022-11-27] MEDS: ENOXAPARIN INJ 40 MG/0.4 ML SYR SQ SCH (10:18)
[2022-11-27] MEDS: ADVANCED PROBIOTIC 1250 MG CAPSULE PO SCH (10:18)
[2022-11-27 10:31] LABS: BUN Creatinine Ratio 21.7 (10-20); Bilirubin,Total 0.8 mg/dl (0.2-1.0); Calcium 8.7 mg/dl (8.6-10.3); Est GFR (African American) 125.8 ml/min; Est GFR (Non-African American) 108.5 ml/min; Magnesium 2.2 mg/dl (1.7-2.4); Phosphorus 3.2 mg/dl (2.5-4.9); Potassium 3.8 mmol/L (3.5-5.1)
[2022-11-27] MEDS ORDERED: LORazepam 2 MG/1 ML VIAL IV ONE (13:30)
[2022-11-27] MEDS ORDERED: CLINOLIPID 20% IV FAT EMULSION 250 ML IV ONE (16:00)
[2022-11-27] MEDS ORDERED: [UNRECOGNIZED DRUG - OTHER] IV SCH (16:00)
[2022-11-27] MEDS ORDERED: PERIPHERAL TPN IV SCH (16:00)
--- NOTE | 2022-11-27 20:02 | Communication Note ---
Date of Service: November 27, 2022 as patient had been showing some increase in alertness and interactions with Daytrana patch (indicated toilet need, request soda), ordered a rechallenge with 2 mg Ativan IV X1 earlier this afternoon after which staff report he rang call summers, requested food and had a conversation with his mother. Progress reviewed with Dr. Gay as patient's mother remains his medical decision maker until he can consistently interact and discuss treatment to ensure capacity. He has a previous pattern of eating one shift and then not interacting again for days. Hopefully combo with stimulant he will be able to tolerate and sustain better response--ordered Ativan 2 mg TID starting tonight with hope to engage him in PO medications soon.
--- NOTE | 2022-11-27 20:36 | Hospitalist Progress Note ---
Date of Service November 27, 2022 Assessment & Plan (1) Schizoaffective disorder: (2) Unable to care for self: (3) Starvation ketoacidosis: (4) Severe malnutrition: Plan 42-year-old male with PMH of schizoaffective disorder, catatonia who presents after being found minimally responsive and covered in feces on a welfare check. He was brought to the hospital. Found to have starvation ketosis with anion gap metabolic acidosis. 11/27- pt asking for food, ate sandwich and dinner after addition of Ativan to methylphenidate patch. Schizoaffective disorder with catatonia Patient was admitted for 5 months from 02/2021 to 06/2021 in psychiatric unit here in the hospital. Had neurology evaluation including MRI brain which was normal. CT head without acute intracranial abnormality, tox screen negative Ongoing incontinence of bladder and bowel and not been eating and drinking Initial trial of Ativan unsuccessful. Appreciate psych's recs and assistance -Daytrana patch 36 mg transdermal with Ativan on 11/27- pt up and talking to nursing, requested sandwich and also ate dinner. Per nursing also had a 15 minute conversation with his mother. Will hold ppn at this time as pt is eating. Per psych, pt still does not have capacity. Mother who is emergency guardian, will continue making decisions for pt. Prior hearing to appoint his mother legal guardian until a later hearing to determine if this will be permanent. Pneumonia and sepsis was ruled out. 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 Repeat blood cultures were negative and he remains afebrile Severe malnutrition Vitamin D deficiency: PPN ongoing since 11-20 but this is a temporary solution. 11/27-Will hold ppn at this time as pt is eating. May need to explore PEG tube to keep up his caloric intake if pt continues to refuse food or goes back to being nonresponsive Metabolic acidosis likely due to starvation ketosis. resolved Conjunctivitis, assume bacterial : continue eye drops DVT Ppx: SQ lovenox Code status: FULL PCP: Tierneytervictoriano Dispo: Awaiting placement Admission and Anticipated Discharge Date Admission Date: November 03, 2022 Subjective Seen this AM. Was back to being non responsive. However, received notification that after methylphenidate with Ativan regimen per Psychiatry, pt was alert and asking for food. Per nursing, had 2 sandwiches and also ate dinner at the end of the day. Review of Systems Review of Systems: Unobtainable due to cognitive status Results & Data Results & Data Vital Signs (Past 12 Hours) Vital Signs Temp Pulse Resp BP Pulse Ox O2 Del Method 11/27/22 14:42 36.3 C L 84 18 122/81 97 Room Air
[2022-11-27] MEDS: STOP CLINOLIPID SCH (21:01)
[2022-11-27] MEDS: LORazepam 2 MG/1 ML VIAL IV SCH (21:01)
[2022-11-28 09:59] LABS: BUN Creatinine Ratio 14.3 (10-20); Creatinine Clr Calc Pharmacy 116.1 ml/min; Est GFR (African American) 109.8 ml/min; Est GFR (Non-African American) 94.7 ml/min; Magnesium 2.1 mg/dl (1.7-2.4); Phosphorus 3.8 mg/dl (2.5-4.9); Potassium 3.8 mmol/L (3.5-5.1)
[2022-11-28] MEDS: ADVANCED PROBIOTIC 1250 MG CAPSULE PO SCH (10:11)
[2022-11-28] MEDS: CEROVITE ADV FORMULA TAB PO SCH (10:11)
[2022-11-28] MEDS: ENOXAPARIN INJ 40 MG/0.4 ML SYR SQ SCH (10:11)
[2022-11-28] MEDS: METHYLPHENIDATE 30 MG TD SCH (12:15)
[2022-11-28] MEDS: TRIMETHOPRIM/POLYMYXIN B OP SCH ×4 (12:17→20:38)
[2022-11-28] MEDS: LORazepam 2 MG/1 ML VIAL IV SCH ×3 (12:17→20:32)
[2022-11-28] MEDS ORDERED: PERIPHERAL TPN IV SCH (16:00)
[2022-11-28] MEDS ORDERED: [UNRECOGNIZED DRUG - OTHER] IV SCH (16:00)
[2022-11-28] MEDS ORDERED: CLINOLIPID 20% IV FAT EMULSION 250 ML IV ONE (16:00)
--- NOTE | 2022-11-28 17:03 | Hospitalist Progress Note ---
Date of Service November 28, 2022 Assessment & Plan (1) Schizoaffective disorder: (2) Unable to care for self: (3) Starvation ketoacidosis: (4) Severe malnutrition: Plan 42-year-old male with PMH of schizoaffective disorder, catatonia who presents after being found minimally responsive and covered in feces on a welfare check. He was brought to the hospital. Found to have starvation ketosis with anion gap metabolic acidosis. 11/27- pt asking for food, ate sandwich and dinner after addition of Ativan to methylphenidate patch. 11/28- pt nonresponsive once more Schizoaffective disorder with catatonia Patient was admitted for 5 months from 02/2021 to 06/2021 in psychiatric unit here in the hospital. Had neurology evaluation including MRI brain which was normal. CT head without acute intracranial abnormality, tox screen negative Ongoing incontinence of bladder and bowel and not been eating and drinking Initial trial of Ativan unsuccessful. Appreciate psych's recs and assistance -Daytrana patch 36 mg transdermal with Ativan on 11/27- pt up and talking to nursing, requested sandwich and also ate dinner. Per nursing also had a 15 minute conversation with his mother. Has since become nonresponsive once more. Consider vp of global marketing options for feeding. Per psych, pt still does not have capacity in spite of progress previously noted. Mother who is emergency guardian, will continue making decisions for pt. Prior hearing to appoint his mother legal guardian until a later hearing to determine if this will be permanent -anticipated Thursday12/01/[address] Barry. Pneumonia and sepsis was ruled out. 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 Repeat blood cultures were negative and he remains afebrile Severe malnutrition Vitamin D deficiency: PPN ongoing since 11-20 but this is a temporary solution. 11/27-Will hold ppn at this time as pt is eating. May need to explore PEG tube to keep up his caloric intake if pt continues to refuse food or goes back to being nonresponsive Metabolic acidosis likely due to starvation ketosis. resolved Conjunctivitis, assume bacterial : continue eye drops DVT Ppx: SQ lovenox Code status: FULL PCP: Oesterling Dispo: Awaiting placement Admission and Anticipated Discharge Date Admission Date: November 03, 2022 Subjective Seen this AM. Was back to being non responsive. Per nursing, seemed like he might be having pain at IV site, might have been taking off the patch. Review of Systems Review of Systems: All systems reviewed & are unremarkable except as noted in Subjective Physical Exam Physical Exam: General: laying in bed, eyes closed once more Skin: No noted rashes or bruises Psych: could not be evaluated as was unresponsive Neuro: able to move lower extremities HEENT: NC/AT Chest: Nontender to palpation. CV: RRR Resp: Breath sounds clear bilaterally Abdomen: Soft, nontender, nondistended. Extremities: No edema in lower extremities bilaterally. Results & Data Results & Data Vital Signs (Past 12 Hours) Vital Signs Temp Pulse Resp BP Pulse Ox O2 Del Method 11/28/22 15:36 36.7 C 78 16 117/78 100 Room Air 11/28/22 11:24 Room Air 11/28/22 08:09 36.5 C 90 16 113/67 97 Room Air
[2022-11-29] MEDS: STOP CLINOLIPID SCH ×2 (02:04→22:24)
--- NOTE | 2022-11-29 09:17 | Hospitalist Progress Note ---
Date of Service November 29, 2022 Assessment & Plan (1) Schizoaffective disorder: (2) Unable to care for self: (3) Starvation ketoacidosis: (4) Severe malnutrition: Plan 42-year-old male with PMH of schizoaffective disorder, catatonia who presents after being found minimally responsive and covered in feces on a welfare check. He was brought to the hospital. Found to have starvation ketosis with anion gap metabolic acidosis. 11/27- pt asking for food, ate sandwich and dinner after addition of Ativan to methylphenidate patch. 11/28- pt nonresponsive once more 11/29-awake and speaking/making contact. Ate food overnight but this is intermittent. PPN is still going. Will need to see how he does this and if no PO intake, consider PEG tube on Thursday. Need to discuss this further with his mother first. Schizoaffective disorder with catatonia Patient was admitted for 5 months from 02/2021 to 06/2021 in psychiatric unit here in the hospital. Had neurology evaluation including MRI brain which was normal. CT head without acute intracranial abnormality, tox screen negative Ongoing incontinence of bladder and bowel and not been eating and drinking Initial trial of Ativan unsuccessful. Appreciate psych's recs and assistance -Daytrana patch 36 mg transdermal with Ativan on 11/27- pt up and talking to nursing, requested sandwich and also ate dinner. Per nursing also had a 15 minute conversation with his mother. Has since become nonresponsive once more. Consider detention options for feeding. Per psych, pt still does not have capacity in spite of progress previously noted. Mother who is emergency guardian, will continue making decisions for pt. Prior hearing to appoint his mother legal guardian until a later hearing to determine if this will be permanent -anticipated Thursday12/01/[address] Barry. Pneumonia and sepsis was ruled out. 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 Repeat blood cultures were negative and he remains afebrile Severe malnutrition Vitamin D deficiency: PPN ongoing since 11-20 but this is a temporary solution. 11/27-Will hold ppn at this time as pt is eating. May need to explore PEG tube to keep up his caloric intake if pt continues to refuse food or goes back to being nonresponsive Metabolic acidosis likely due to starvation ketosis. resolved Conjunctivitis, assume bacterial : continue eye drops DVT Ppx: SQ lovenox Code status: FULL PCP: Rob Dispo: Awaiting placement [facility] Hospitalist Admission and Anticipated Discharge Date Admission Date: November 03, 2022 Subjective 42 yo M with known history of schizoaffective disorder and patterned periods of unresponsiveness similar to catatonia presents after being found unresponsive and covered wtih feces in his apartment during a wellness check. The patient has a variety of social obstacles and per his therapist, will likely need state hospitalization ultimately. He presented with sepsis thought 2/2 pneumonia with starvation ketosis which has resolved. He has continued to remain unresponsive through this hospital stay. He has been on PPN since 11-20 and emergency guardianship has been appointed to his mother. Today he has his face under the blanket but is able to wake up and look at me and answer some questions. Evidently he told his psychiatrist that he feels having his mother be his guardian is a bad idea. He would't tell me anything about that. He was able to eat icees and jello overnight but not currently expressing interest in food this morning. Denies pain or other issues at this time. Apparently he is using urinal which is half full on his bedside table. Review of Systems Review of Systems: issues as noted above. Physical Exam Physical Exam: CONSTITUTIONAL: WNWD, vitals as above, generally NAD, lying supine in bed EYES: conjunctivae clear, nonicteric sclerae ENT: external ear and nose normal, MMM NECK: trachea midline, RESPIRATORY: clear to auscultation bilaterally, no crackles, rales or wheezes, normal respiratory effort CARDIOVASCULAR: regular rate and rhythm, S1 and 2 heard without murmurs, gallops or rubs, no JVD, no peripheral edema, CHEST: inspection of chest was normal GASTROINTESTINAL: soft, nontender, ND, no guarding MUSCULOSKELETAL: strength 5/5 throughout, head is normocephalic and atraumatic, SKIN: warm and dry, NEUROLOGIC: mostly stays with face under the covers, but does peek over the blanket and make eye contact with me to answer few questions. Appears nonfocal. PSYCHIATRIC: awake, unable to tell if he is oriented at this point. Results & Data Results & Data Vital Signs (Past 12 Hours) Vital Signs Temp Pulse Resp BP Pulse Ox Pulse Ox O2 Del Method 11/29/22 08:00 97 11/29/22 08:05 36.8 C 66 16 108/74 99 Room Air O2 Del Method 11/29/22 08:00 Room Air 11/29/22 08:05 Laboratory Results BMP 11/28/22 09:13 Sodium 136 Potassium 3.8 Chloride 105 Carbon Dioxide 27 BUN 14 Creatinine 0.98 Glucose 107 H Calcium 9.0 Medications Administered Current Inpatient Medications Acetaminophen (Acetaminophen 325 Mg Tab) 650 mg PO Q4H PRN PRN Reason: Pain or Fever Stop: 12/03/22 18:56 Enoxaparin Sodium (Enoxaparin Inj 40 Mg/0.4 Ml Syr) 40 mg SQ QAM [facility] Stop: 12/16/22 12:14 Last Admin: 11/29/22 10:02 Dose: Not Given Ergocalciferol (Ergocalciferol 50,000 Units 1250 Mcg Cap) 50,000 units PO Q7D@0900 [facility] Stop: 12/24/22 09:01 Last Admin: 11/26/22 10:05 Dose: Not Given Dextrose (D10w) 1,000 mls @ 0 mls/hr IV .Q0M PRN PRN Reason: protocol (see label comments) Stop: 12/20/22 13:29 Amino Acids 2,151 ml/ (Nutrition (Parenteral)) 2,151 mls @ 90 mls/hr IV .[id number] [facility]; Protocol Stop: 11/30/22 15:53 Last Admin: 11/29/22 15:27 Dose: 90 mls/hr Fat Emulsion-[place] Oil/Soybean Oil (Clinolipid 20% Iv Fat Emulsion) 250 mls @ 41.67 mls/hr IV .Q6H ONE Stop: 11/29/22 21:59 Last Admin: 11/29/22 15:26 Dose: 41.7 mls/hr Lactobacillus Acidophilus (Advanced Probiotic 1250 Mg Capsule) 2 cap PO DAILY [facility] Stop: 12/05/22 13:29 Last Admin: 11/29/22 10:02 Dose: Not Given Lorazepam (Lorazepam 1 Mg Tab) 1 mg PO Q6H PRN PRN Reason: Anxiety Stop: 12/08/22 17:08 Lorazepam (Lorazepam 2 Mg/1 Ml Vial) 2 mg IV TID [facility] Stop: 12/27/22 20:59 Last Admin: 11/29/22 13:33 Dose: 2 mg Methylphenidate HCl (Methylphenidate 30 Mg Tdsy) 30 mg TD QAM [facility] Stop: 12/09/22 11:44 Last Admin: 11/29/22 10:01 Dose: 30 mg Miscellaneous (Stop Clinolipid) 1 each N/A TODAY@22 [facility] Stop: 12/24/22 21:59 Last Admin: 11/29/22 02:04 Dose: 1 each Miscellaneous (Remove Patch) 1 each N/A DAILY@1800 [facility] Stop: 12/25/22 20:59 Last Admin: 11/28/22 20:38 Dose: 1 each Miscellaneous (Check Patch Placement ) 1 each N/A DAILY@1200,1500 [facility] Stop: 12/27/22 11:59 Last Admin: 11/29/22 15:27 Dose: 1 each Miscellaneous Information (Tpn/Ppn Consult Pharmacy) 1 each N/A UD PRN PRN Reason: Consult Stop: 12/20/22 13:40 Multivitamins/Minerals (Cerovite Adv Formula Tab) 1 tab PO QAM [facility] Stop: 12/06/22 08:59 Last Admin: 11/29/22 10:02 Dose: Not Given Ondansetron HCl (Ondansetron Inj 2 Mg/Ml 2 Ml Vial) 4 mg IV Q6H PRN PRN Reason: Nausea Stop: 12/03/22 18:56 Polyethylene Glycol (Polyethylene (Miralax) 17 Gm Pack) 17 gm PO DAILY PRN PRN Reason: Constipation Stop: 12/03/22 18:56 Polymyxin/Trimethoprim Sulfate (Trimethoprim/Polymyxin B) 2 drops OP QID [facility] Stop: 12/26/22 20:59 Last Admin: 11/29/22 12:12 Dose: Not Given
[2022-11-29] MEDS: METHYLPHENIDATE 30 MG TD SCH (10:01)
[2022-11-29] MEDS: ADVANCED PROBIOTIC 1250 MG CAPSULE PO SCH (10:02)
[2022-11-29] MEDS: ENOXAPARIN INJ 40 MG/0.4 ML SYR SQ SCH (10:02)
[2022-11-29] MEDS: CEROVITE ADV FORMULA TAB PO SCH (10:02)
[2022-11-29] MEDS: TRIMETHOPRIM/POLYMYXIN B OP SCH ×4 (10:02→19:47)
[2022-11-29] MEDS: LORazepam 2 MG/1 ML VIAL IV SCH ×3 (10:02→19:47)
--- NOTE | 2022-11-29 12:00 | Psychiatric Progress Note ---
Date of Service November 29, 2022 Impression / Recommendations Impression David Diaz is a 42 yo man with a history of major depression and schizoaffective disorder admitted medically for severe decompensation with malnutrition and inability to care for himself. 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 On a converted outpatient to inpatient 304 commitment that expires 12/09/2022. Overall David continues to demonstrate signs of volitional behavior/selectively responds when he chooses to engage, i.e. speaking with his mother on the phone, talking with nurses at times, selectively responding to parts of conversation with me today, and there remains no evidence for catatonia. Reviewed discharge summary from the [facility] for his recent admission from August through September 2022 (approximately a 30 day stay) during which time he initially refused to engage verbally, did not eat, was withdrawn to his room and refused all psychiatric medication and then eventually started to eat his meals, engaged verbally at times and starting taking haldol and Effexor XR just prior to discharge. Kenton questioned the diagnosis of schizophrenia, felt presentation likely due to depression and stressor of desiring more visitation rights with his daughter given that during his stay there was never any evidence for acute psychosis rather just possible paranoia. Over the last three months he has now been evalua ganesh by more than 4 different psychiatrists none of whom feel catatonia is part of the clinical picture. At times he certainly shows some response to IV ativan (but these responses are always inconsistent and not at all what would be expected with catatonia where response would be consistent and sustained) and given improved po intake felt to be ok to try this for a few more days. But worry that more prolonged use may worsen neurovegetative symptoms. Daytrana patch may offer some benefits for depression and risk/benefit profile felt to favor trial at this time since he is eating but if he stops eating risks of potential cardiac event increase and at that time would consider discontinuing the patch. (1) Schizoaffective disorder, depressive type: (2) MDD (major depressive disorder), recurrent episode, severe: (3) Factitious disorder: Plan -Continue ativan and Daytrana patch trial for now, would discontinue if he stops accepting po intake Suicide Risk Level Suicide Risk Level: Low (q15 min observation checks) Suicide Risk Level Comments: pt has voiced no suicidal thoughts Interval History Identifying Information David Diaz is a 42 yo man with a history of schizoaffective disorder admitted medically for severe decompensation with malnutrition, sepsis and metabolic acidosis. Currently on a 304 commitment. Chief Complaint "Oh no that sounds scary". Subjective Subjective Patient was seen & assessed and interval progress reviewed. More talkative overnight, had two czech ices and an iced tea per marketing copywriter. Utilized call summers appropriately and voided in urinal. Expressed desire to know if "they would let him out of here" per RN notes. Continues to refuse most po medications but allowing placement of Daytrana patch and IV ativan. Additional collateral from psych liason's documented discussion with David's mo ther yesterday evening: "Spoke with patient's mom about conversation she had with him on the phone yesterday while he was awake, per mom David told her he "felt really good" and that "his time in hospital had been very reflective", he also told his mom he "felt much better and was ready to go home", she stated he was extremely polite during their conversation and that from her perspective he sounded really "with it", otherwise she stated he just spoke to her about what he was watching on television which mostly revolved around a post-apocalyptic show" Mid-morning lying in bed under the covers. Will not respond via multiple attempt to engage with him but after I discussed plan for possible upcoming commitment hearing and possibility for exploration of his mother having full guardianship he stated from under the blankets "oh no that sounds scary". Encouraged him to engage verbally and with his care so that he can have a say in regards to his treatment and future decisions about how best to help support him. Physical Exam Psychiatric Orientation: alert; + uncooperative Apperance: + inappropriately dressed (under a blanket) Eye Contact: + poor eye contact Motor Behavior: no abnormal motor movements Speech: normal rate/rhythm/volume of speech (brief) Insight: + limited insight Judgment: + limited judgement Vital Signs (Past 24 Hours) Last Vital Signs Temp 36.8 C 11/29/22 08:05 Pulse 66 11/29/22 08:05 Resp 16 11/29/22 08:05 BP 108/74 11/29/22 08:05 Pulse Ox 99 11/29/22 08:05 O2 Del Method Room Air 11/29/22 08:05 Results & Data ([facility]) Current Inpatient Medications Current Inpatient Medications: Current Inpatient Medications Acetaminophen (Acetaminophen 325 Mg Tab) 650 mg PO Q4H PRN PRN Reason: Pain or Fever Stop: 12/03/22 18:56 Enoxaparin Sodium (Enoxaparin Inj 40 Mg/0.4 Ml Syr) 40 mg SQ QAM [facility] Stop: 12/16/22 12:14 Last Admin: 11/29/22 10:02 Dose: Not Given Ergocalciferol (Ergocalciferol 50,000 Units 1250 Mcg Cap) 50,000 units PO Q7D@0900 [facility] Stop: 12/24/22 09:01 Last Admin: 11/26/22 10:05 Dose: Not Given Dextrose (D10w) 1,000 mls @ 0 mls/hr IV .Q0M PRN PRN Reason: protocol (see label comments) Stop: 12/20/22 13:29 Amino Acids 2,151 ml/ (Nutrition (Parenteral)) 2,151 mls @ 90 mls/hr IV .[id number] [facility]; Protocol Stop: 11/29/22 15:53 Last Admin: 11/28/22 15:59 Dose: 90 mls/hr Amino Acids 2,151 ml/ (Nutrition (Parenteral)) 2,151 mls @ 90 mls/hr IV .[id number] [facility]; Protocol Stop: 11/30/22 15:53 Fat Emulsion-[place] Oil/Soybean Oil (Clinolipid 20% Iv Fat Emulsion) 250 mls @ 41.67 mls/hr IV .Q6H [facility] Stop: 11/29/22 21:59 Lactobacillus Acidophilus (Advanced Probiotic 1250 Mg Capsule) 2 cap PO DAILY [facility] Stop: 12/05/22 13:29 Last Admin: 11/29/22 10:02 Dose: Not Given Lorazepam (Lorazepam 1 Mg Tab) 1 mg PO Q6H PRN PRN Reason: Anxiety Stop: 12/08/22 17:08 Lorazepam (Lorazepam 2 Mg/1 Ml Vial) 2 mg IV TID [facility] Stop: 12/27/22 20:59 Last Admin: 11/29/22 10:02 Dose: 2 mg Methylphenidate HCl (Methylphenidate 30 Mg Tdsy) 30 mg TD QAM [facility] Stop: 12/09/22 11:44 Last Admin: 11/29/22 10:01 Dose: 30 mg Miscellaneous (Stop Clinolipid) 1 each N/A TODAY@22 [facility] Stop: 12/24/22 21:59 Last Admin: 11/29/22 02:04 Dose: 1 each Miscellaneous (Remove Patch) 1 each N/A DAILY@1800 [facility] Stop: 12/25/22 20:59 Last Admin: 11/28/22 20:38 Dose: 1 each Miscellaneous (Check Patch Placement ) 1 each N/A DAILY@1200,1500 [facility] Stop: 12/27/22 11:59 Last Admin: 11/28/22 15:09 Dose: 1 each Miscellaneous Information (Tpn/Ppn Consult Pharmacy) 1 each N/A UD PRN PRN Reason: Consult Stop: 12/20/22 13:40 Multivitamins/Minerals (Cerovite Adv Formula Tab) 1 tab PO QAM [facility] Stop: 12/06/22 08:59 Last Admin: 11/29/22 10:02 Dose: Not Given Ondansetron HCl (Ondansetron Inj 2 Mg/Ml 2 Ml Vial) 4 mg IV Q6H PRN PRN Reason: Nausea Stop: 12/03/22 18:56 Polyethylene Glycol (Polyethylene (Miralax) 17 Gm Pack) 17 gm PO DAILY PRN PRN Reason: Constipation Stop: 12/03/22 18:56 Polymyxin/Trimethoprim Sulfate (Trimethoprim/Polymyxin B) 2 drops OP QID [facility] Stop: 12/26/22 20:59 Last Admin: 11/29/22 10:02 Dose: Not Given
[2022-11-29] MEDS ORDERED: CLINOLIPID 20% IV FAT EMULSION 250 ML IV ONE (16:00)
[2022-11-29] MEDS ORDERED: [UNRECOGNIZED DRUG - OTHER] IV SCH (16:00)
[2022-11-29] MEDS ORDERED: PERIPHERAL TPN IV SCH (16:00)
[2022-11-30] MEDS: ENOXAPARIN INJ 40 MG/0.4 ML SYR SQ SCH (07:13)
[2022-11-30] MEDS: CEROVITE ADV FORMULA TAB PO SCH (07:14)
[2022-11-30] MEDS: ADVANCED PROBIOTIC 1250 MG CAPSULE PO SCH (07:14)
[2022-11-30] MEDS: LORazepam 2 MG/1 ML VIAL IV SCH ×3 (07:24→20:12)
[2022-11-30] MEDS: TRIMETHOPRIM/POLYMYXIN B OP SCH (07:25)
[2022-11-30 07:49] LABS: BUN Creatinine Ratio 17.6 (10-20); Bilirubin,Total 0.5 mg/dl (0.2-1.0); Calcium 8.5 mg/dl (8.6-10.3); Creatinine Clr Calc Pharmacy 153.8 ml/min; Est GFR (African American) 131.9 ml/min; Est GFR (Non-African American) 113.8 ml/min; Magnesium 2.4 mg/dl (1.7-2.4); Phosphorus 3.3 mg/dl (2.5-4.9); Potassium 4.2 mmol/L (3.5-5.1)
[2022-11-30] MEDS: METHYLPHENIDATE 30 MG TD SCH (08:12)
--- NOTE | 2022-11-30 08:21 | Hospitalist Progress Note ---
Date of Service November 30, 2022 Assessment & Plan (1) Schizoaffective disorder: (2) Unable to care for self: (3) Starvation ketoacidosis: (4) Severe malnutrition: Plan 42-year-old male with PMH of schizoaffective disorder, catatonia who presents after being found minimally responsive and covered in feces on a welfare check. He was brought to the hospital. Found to have starvation ketosis with anion gap metabolic acidosis. 11/27- pt asking for food, ate sandwich and dinner after addition of Ativan to methylphenidate patch. 11/28- pt nonresponsive once more 11/29-awake and speaking/making contact. Ate food overnight but this is intermittent. PPN is still going. Will need to see how he does this and if no PO intake, consider PEG tube on Thursday. Need to discuss this further with his mother first, however, patient is currently declining both PPN and PEG at this point. Schizoaffective disorder with catatonia Patient was admitted for 5 months from 02/2021 to 06/2021 in psychiatric unit here in the hospital. Had neurology evaluation including MRI brain which was normal. CT head without acute intracranial abnormality, tox screen negative Ongoing incontinence of bladder and bowel and not been eating and drinking Initial trial of Ativan unsuccessful. Appreciate psych's recs and assistance -Daytrana patch 36 mg transdermal with Ativan on 11/27- pt up and talking to nursing, requested sandwich and also ate dinner. Per nursing also had a 15 minute conversation with his mother. Has since become nonresponsive once more. Consider [facility] options for feeding. Per psych, pt still does not have capacity in spite of progress previously noted. Mother who is emergency guardian, will continue making decisions for pt. Prior hearing to appoint his mother legal guardian until a later hearing to determine if this will be permanent Pneumonia and sepsis was ruled out. 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 Repeat blood cultures were negative and he remains afebrile Severe malnutrition Vitamin D deficiency: PPN ongoing since 11-20 but this is a temporary solution. 11/27-Will hold ppn at this time as pt is eating. May need to explore PEG tube to keep up his caloric intake if pt continues to refuse food or goes back to being nonresponsive Metabolic acidosis likely due to starvation ketosis. resolved Conjunctivitis, assume bacterial : continue eye drops DVT Ppx: SQ lovenox Code status: FULL PCP: Rob Dispo[facility] Admission and Anticipated Discharge Date Admission Date: November 03, 2022 Subjective 42 yo M with known history of schizoaffective disorder and patterned periods of unresponsiveness similar to catatonia presents after being found unresponsive and covered wtih feces in his apartment during a wellness check. The patient has a variety of social obstacles and per his therapist, will likely need state hospitalization ultimately. He presented with sepsis thought 2/2 pneumonia with starvation ketosis which has resolved. He has continued to remain unresponsive through this hospital stay. He has been on PPN since 11/20 and emergency guardianship has been appointed to his mother. He is speaking more with me today He states that he will "eat for some people but not others" He ambulated independently to the bathroom He has also been using bedside urinal He keeps his eyes closed but is answering questions appropriately I told him we are considering a PEG tube to help him with nutrition and he vigorously shook his head He declines continuation of the PPN and declines PEG He said that poor nutrition was not what was going to kill him Review of Systems Review of Systems: issues as noted above. Physical Exam Physical Exam: CONSTITUTIONAL: WNWD, vitals as above, generally NAD, lying supine in bed EYES: conjunctivae clear, nonicteric sclerae ENT: external ear and nose normal, MMM NECK: trachea midline, RESPIRATORY: clear to auscultation bilaterally, no crackles, rales or wheezes, normal respiratory effort CARDIOVASCULAR: regular rate and rhythm, S1 and 2 heard without murmurs, gallops or rubs, no JVD, no peripheral edema, CHEST: inspection of chest was normal GASTROINTESTINAL: soft, nontender, ND, no guarding MUSCULOSKELETAL: strength 5/5 throughout, head is normocephalic and atraumatic, SKIN: warm and dry, NEUROLOGIC: appears nonfocal, speech and language intact. PSYCHIATRIC: awake, answering more questions to the point of having a more interactive discussion today. Avoids eye contact today Results & Data Results & Data Vital Signs (Past 12 Hours) Vital Signs Temp Pulse Resp BP BP Pulse Ox O2 Del Method 11/30/22 08:03 36.6 C 63 16 111/74 95 Room Air 11/29/22 21:48 36.3 C L 69 15 99/63 L 97 Room Air Laboratory Results [facility] 11/30/22 07:20 Sodium 139 Potassium 4.2 Chloride 110 H Carbon Dioxide 26 BUN 13 Creatinine 0.74 Glucose 107 H Calcium 8.5 L Liver Function 11/30/22 Range/Units 07:20 Total Bilirubin 0.5 (0.2-1.0) mg/dl AST 14 (13-39) U/L ALT 17 (7-52) U/L Medications Administered Current Inpatient Medications Acetaminophen (Acetaminophen 325 Mg Tab) 650 mg PO Q4H PRN PRN Reason: Pain or Fever Stop: 12/03/22 18:56 Enoxaparin Sodium (Enoxaparin Inj 40 Mg/0.4 Ml Syr) 40 mg SQ QAM [facility] Stop: 12/16/22 12:14 Last Admin: 11/30/22 07:13 Dose: 40 mg Ergocalciferol (Ergocalciferol 50,000 Units 1250 Mcg Cap) 50,000 units PO Q7D@0900 [facility] Stop: 12/24/22 09:01 Last Admin: 11/26/22 10:05 Dose: Not Given Lactobacillus Acidophilus (Advanced Probiotic 1250 Mg Capsule) 2 cap PO DAILY [facility] Stop: 12/05/22 13:29 Last Admin: 11/30/22 07:14 Dose: 2 cap Lorazepam (Lorazepam 1 Mg Tab) 1 mg PO Q6H PRN PRN Reason: Anxiety Stop: 12/08/22 17:08 Lorazepam (Lorazepam 2 Mg/1 Ml Vial) 2 mg IV TID [facility] Stop: 12/27/22 20:59 Last Admin: 11/30/22 20:12 Dose: 2 mg Methylphenidate HCl (Methylphenidate 30 Mg Tdsy) 30 mg TD QAM [facility] Stop: 12/09/22 11:44 Last Admin: 11/30/22 08:12 Dose: 30 mg Miscellaneous (Stop Clinolipid) 1 each N/A TODAY@22 [facility] Stop: 12/24/22 21:59 Last Admin: 11/29/22 22:24 Dose: 1 each Miscellaneous (Remove Patch) 1 each N/A DAILY@1800 [facility] Stop: 12/25/22 20:59 Last Admin: 11/30/22 17:32 Dose: 1 each Miscellaneous (Check Patch Placement ) 1 each N/A DAILY@1200,1500 [facility] Stop: 12/27/22 11:59 Last Admin: 11/30/22 15:49 Dose: 1 each Multivitamins/Minerals (Cerovite Adv Formula Tab) 1 tab PO QAM [facility] Stop: 12/06/22 08:59 Last Admin: 11/30/22 07:14 Dose: 1 tab Ondansetron HCl (Ondansetron Inj 2 Mg/Ml 2 Ml Vial) 4 mg IV Q6H PRN PRN Reason: Nausea Stop: 12/03/22 18:56 Polyethylene Glycol (Polyethylene (Miralax) 17 Gm Pack) 17 gm PO DAILY PRN PRN Reason: Constipation Stop: 12/03/22 18:56
[2022-11-30] MEDS ORDERED: PERIPHERAL TPN IV SCH (16:00)
[2022-11-30] MEDS ORDERED: CLINOLIPID 20% IV FAT EMULSION 250 ML IV ONE (16:00)
[2022-11-30] MEDS ORDERED: [UNRECOGNIZED DRUG - OTHER] IV SCH (16:00)
[2022-11-30] MEDS: STOP CLINOLIPID SCH (22:07)
[2022-12-01] MEDS: LORazepam 2 MG/1 ML VIAL IV SCH ×3 (08:41→20:05)
[2022-12-01] MEDS: ENOXAPARIN INJ 40 MG/0.4 ML SYR SQ SCH (08:41)
[2022-12-01] MEDS: ADVANCED PROBIOTIC 1250 MG CAPSULE PO SCH (08:49)
[2022-12-01] MEDS: METHYLPHENIDATE 30 MG TD SCH (08:49)
[2022-12-01] MEDS: CEROVITE ADV FORMULA TAB PO SCH (08:50)
[2022-12-01 15:25] LABS: BUN Creatinine Ratio 14.9 (10-20); Calcium 8.9 mg/dl (8.6-10.3); Creatinine Clr Calc Pharmacy 153.8 ml/min; Est GFR (African American) 131.9 ml/min; Est GFR (Non-African American) 113.8 ml/min; Magnesium 2.3 mg/dl (1.7-2.4); Phosphorus 3.2 mg/dl (2.5-4.9); Potassium 4.3 mmol/L (3.5-5.1)
--- NOTE | 2022-12-01 17:28 | Hospitalist Progress Note ---
Date of Service December 01, 2022 Assessment & Plan (1) Schizoaffective disorder: (2) Unable to care for self: (3) Starvation ketoacidosis: (4) Severe malnutrition: Plan 42-year-old male with PMH of schizoaffective disorder, catatonia who presents after being found minimally responsive and covered in feces on a welfare check. He was brought to the hospital. Found to have starvation ketosis with anion gap metabolic acidosis. Schizoaffective disorder with catatonia Patient was admitted for 5 months from 02/2021 to 06/2021 in psychiatric unit here in the hospital. Had neurology evaluation including MRI brain which was normal. CT head without acute intracranial abnormality, tox screen negative Ongoing incontinence of bladder and bowel and had not been eating and drinking Initial trial of Ativan unsuccessful. Appreciate psych's recs and assistance -Daytrana patch 36 mg transdermal with Ativan on 11/27- pt up and talking to nursing, requested sandwich and also ate dinner. Per nursing also had a 15 minute conversation with his mother. Has since become nonresponsive once more. Consider back tacker options for feeding. Per psych, pt still does not have capacity in spite of progress previously noted. Mother who is emergency guardian, will continue making decisions for pt. Prior hearing to appoint his mother legal guardian until a later hearing to determine if this will be permanent Pneumonia and sepsis was ruled out. 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 Repeat blood cultures were negative and he remains afebrile Severe malnutrition Vitamin D deficiency: Received PPN 11/20 -11/27 and one bag on 11/30 Per nursing, patient did not eat anything today, will reevaluate the morning and resume PPN if needed May need to explore PEG tube to keep up his caloric intake if pt continues to refuse food or goes back to being nonresponsive Metabolic acidosis likely due to starvation ketosis. resolved Conjunctivitis, assume bacterial Resolved, received eyedrops DVT PROPHYLAXIS SQ Lovenox Patient seen in collaboration with Dr. Cortez. Dispo - awaiting placement Admission and Anticipated Discharge Date Admission Date: November 03, 2022 Supervising Physician Co-Signing Physician Notes Patient seen and examined at bedside as a follow-up of schizoaffective disorder with catatonia, severe malnutrition secondary to poor p.o. intake, vitamin D deficiency. Patient was lying in bed, on room air, NAD, not interactive, ROS was not able. Per RN, patient with very poor p.o. intake. On exam, patient nonconclusive, appears tired/sad/lethargic/sick, h eart/lung/abdomen examination fairly WNL. I have seen and examined the patient and have discussed the case with the provider above. I agree with the assessment and plan as stated. Subjective Follow-up for schizoaffective disorder, catatonia, starvation ketosis. Patient seen and examined. Appears to be sleeping however will occasionally open eyes to command. Does not appear to be in any acute distress. Nursing states the patient has not eaten anything today. Review of Systems Review of Systems: Patient not speaking today, unable to complete. Physical Exam Constitutional: WD/WN, vitals as above no acute distress Respiratory: normal respiratory effort, lungs clear to auscultation Cardiovascular: Rate/Rhythm: regular rate and regular rhythm Vessels: normal peripheral pulses Extremities: no edema Gastrointestinal (Abdomen): Percussion/Palpation: abdomen soft; abdomen nontender Skin: no rashes, warm and dry Psychiatric: Appears to be sleeping, occasionally open eyes to command, does not speak Results & Data Results & Data Vital Signs (Past 12 Hours) Vital Signs Pulse Resp BP BP Pulse Ox O2 Del Method 12/01/22 14:44 90 16 96/60 L 93 Room Air 12/01/22 08:45 Room Air 12/01/22 07:36 102/60 95 Room Air Laboratory Results [facility] 12/01/22 14:43 Sodium 139 Potassium 4.3 Chloride 110 H Carbon Dioxide 24 BUN 11 Creatinine 0.74 Glucose 90 Calcium 8.9 Liver Function 12/01/22 Range/Units 14:43 Alkaline Phosphatase 80 (34-104) U/L
[2022-12-02] MEDS: LORazepam 2 MG/1 ML VIAL IV SCH (08:49)
[2022-12-02] MEDS: CEROVITE ADV FORMULA TAB PO SCH (08:50)
[2022-12-02] MEDS: ADVANCED PROBIOTIC 1250 MG CAPSULE PO SCH (08:50)
[2022-12-02] MEDS: ENOXAPARIN INJ 40 MG/0.4 ML SYR SQ SCH (08:50)
[2022-12-02] MEDS: METHYLPHENIDATE 30 MG TD SCH (08:59)
--- NOTE | 2022-12-02 10:22 | Psychiatric Progress Note ---
Date of Service December 02, 2022 Impression / Recommendations Impression David Diaz is a 42 yo man with a history of major depression and schizoaffective disorder admitted medically for severe decompensation with malnutrition and inability to care for himself. 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 On a converted outpatient to inpatient 304 commitment that expires 12/09/2022. Overall David continues to demonstrate signs of volitional behavior/selectively responds when he chooses to engage, i.e. speaking with his mother on the phone, talking with nurses at times, selectively responding to parts of conversation with me today, and there remains no evidence for catatonia. Reviewed discharge summary from the [facility] for his recent admission from August through September 2022 (approximately a 30 day stay) during which time he initially refused to engage verbally, did not eat, was withdrawn to his room and refused all psychiatric medication and then eventually started to eat his meals, engaged verbally at times and starting taking haldol and Effexor XR just prior to discharge. Kenton questioned the diagnosis of schizophrenia, felt presentation likely due to depression and stressor of desiring more visitation rights with his daughter given that during his stay there was never any evidence for acute psychosis rather just possible paranoia. Over the last three months he has now been evalua ganesh by more than 4 different psychiatrists none of whom feel catatonia is part of the clinical picture. At times he certainly shows some response to IV ativan (but these responses are always inconsistent and not at all what would be expected with catatonia where response would be consistent and sustained) and given improved po intake felt to be ok to try this for a few more days. But worry that more prolonged use may worsen neurovegetative symptoms. Daytrana patch may offer some benefits for depression and risk/benefit profile felt to favor trial at this time since he is eating but if he stops eating risks of potential cardiac event increase and at that time would consider discontinuing the patch. 12/02/2022: No consistent benefit observed with ongoing ativan trial, rather remains selective when and how he chooses to engage. Is attending to hygiene needs of using toilet or bedside commode. Oral intake remains variable. As expected engaged when prospect of PEG tube was raised, stated his opposition to this. No signs of acute psychosis, has been reality-based when he chooses to engage. Told hospitalist provider he chooses when he will eat based on who the RN is who is offering the food. Completed 305 involuntary commitment due to ongoing concerns for his lack of po intake/unable to meet his basic nutritional needs. Remains unclear if his pattern of eating only intermittently would result in /disability within 30 days as the commitment laws require, for this reason hospitalist provider will also be participating in the hearing to speak to medical risks of his current pattern of intake. Will discontinue ativan given ongoing lack of any signs of catatonia. Branham-Alfonso catatonia scale re-done today and David only scoring for immobility/stupor (1), mutism (1), grimacing (1) and withdrawn (2) which have not consistently changed even with repeated ativan trials and have overlap with other conditions such as neurovegetative symptoms of depression. If concerns persist regarding his po intake, particularly risk of /disability then encourage involvement of clinical ethics as additional independent crop consultant given that his mother has temporary guardianship and it is difficult to assess his decision making capacity since he refuses/or cannot engage in conversation to assess his understandings of risk/benefit/rationale for not eating consistently. Currently advise approach as outlined in paper by SA Nirav When Patients Refuse Assessment of Decision-Making Capacity (Nirav MADERA. When Patients Refuse Assessment of Decision-Making Capacity:How Should Clinicians Respond?Arch Inside Sales Administrator Med.2004;164(16):[id number]. doi:10.1001/archinte.164.16.1757) which recommends use of a substituted decision maker, in this case his mother, if risk of lack of eating is significant while continuing to discuss treatment course with David as if he were competent. However, ethics should be involved should it get to a point where it is felt he may require additional measures to ensure po intake, such as a procedure like PEG tube, that David is stating opposition to. (1) Schizoaffective disorder, depressive type: (2) MDD (major depressive disorder), recurrent episode, severe: (3) Factitious disorder: Plan -Discontinue ativan given no consistent response and concerns this is worsening withdrawn behaviors/daytime fatigue/lack of engagement; remains no evidence for catatonia -Continue with Daytrana patch trial as stimulant may increase motivation if depression is cause for withdrawn behaviors however if po intake remains limited may need to discontinue due to concerns for further appetite suppression Suicide Risk Level Suicide Risk Level: Low (q15 min observation checks) Suicide Risk Level Comments: pt has voiced no suicidal thoughts Interval History Identifying Information David Diaz is a 42 yo man with a history of schizoaffective disorder admitted medically for severe decompensation with malnutrition, sepsis and metabolic acidosis. Currently on a 304 commitment. Chief Complaint mute Subjective Subjective Patient was seen & assessed and interval progress reviewed. Intermittently responsive but over last 2 days very limited po intake and not interactive with RNs. Spoke briefly with hospitalist provider on 11/30/2022 stating "I will eat for some people but not others" and "vigorously shook his head" in declination when PEG tube was discussed. Has been voiding independently, ambulating to the bathroom, answering questions appropriately and in reality-based manner when he engages verbally. Today opens his eyes and mutters when asked if he wants to speak with public health microbiologist ahead of his 305 hearing tomorrow but unclear if he was saying yes/no or maybe. Physical Exam Psychiatric Orientation: alert; + uncooperative Apperance: appropriately dressed Eye Contact: + poor eye contact Motor Behavior: no abnormal motor movements Speech: + abnormal rate/rhythm/volume of speech (brief/soft/mumbled) Insight: + limited insight Judgment: + limited judgement Vital Signs (Past 24 Hours) Last Vital Signs Temp 37.3 C 12/01/22 20:04 Pulse 89 12/01/22 20:04 Resp 16 12/01/22 20:04 BP 128/85 12/01/22 20:04 Pulse Ox 96 12/01/22 20:04 O2 Del Method Room Air 12/01/22 20:04 Results & Data ([facility]) Laboratory Results Laboratory Results - last 24 hr 12/01/22 14:43 Sodium 139 Potassium 4.3 Chloride 110 H Carbon Dioxide 24 Anion Gap 5 BUN 11 Creatinine 0.74 Est Cr Clr Drug Dosing 153.8 Est GFR ( Amer) 131.9 Est GFR (Non-Af Amer) 113.8 BUN/Creatinine Ratio 14.9 Glucose 90 Calcium 8.9 Phosphorus 3.2 Magnesium 2.3 Alkaline Phosphatase 80 Current Inpatient Medications Current Inpatient Medications: Current Inpatient Medications Acetaminophen (Acetaminophen 325 Mg Tab) 650 mg PO Q4H PRN PRN Reason: Pain or Fever Stop: 12/03/22 18:56 Enoxaparin Sodium (Enoxaparin Inj 40 Mg/0.4 Ml Syr) 40 mg SQ QAM [facility] Stop: 12/16/22 12:14 Last Admin: 12/02/22 08:50 Dose: Not Given Ergocalciferol (Ergocalciferol 50,000 Units 1250 Mcg Cap) 50,000 units PO Q7D@0900 [facility] Stop: 12/24/22 09:01 Last Admin: 11/26/22 10:05 Dose: Not Given Lactobacillus Acidophilus (Advanced Probiotic 1250 Mg Capsule) 2 cap PO DAILY [facility] Stop: 12/05/22 13:29 Last Admin: 12/02/22 08:50 Dose: Not Given Lorazepam (Lorazepam 1 Mg Tab) 1 mg PO Q6H PRN PRN Reason: Anxiety Stop: 12/08/22 17:08 Lorazepam (Lorazepam 2 Mg/1 Ml Vial) 2 mg IV TID [facility] Stop: 12/27/22 20:59 Last Admin: 12/02/22 08:49 Dose: 2 mg Methylphenidate HCl (Methylphenidate 30 Mg Tdsy) 30 mg TD QAM [facility] Stop: 12/09/22 11:44 Last Admin: 12/02/22 08:59 Dose: 30 mg Miscellaneous (Remove Patch) 1 each N/A DAILY@1800 [facility] Stop: 12/25/22 20:59 Last Admin: 12/01/22 17:45 Dose: 1 each Miscellaneous (Check Patch Placement ) 1 each N/A DAILY@1200,1500 [facility] Stop: 12/27/22 11:59 Last Admin: 12/01/22 15:16 Dose: 1 each Multivitamins/Minerals (Cerovite Adv Formula Tab) 1 tab PO QAM [facility] Stop: 12/06/22 08:59 Last Admin: 12/02/22 08:50 Dose: Not Given Ondansetron HCl (Ondansetron Inj 2 Mg/Ml 2 Ml Vial) 4 mg IV Q6H PRN PRN Reason: Nausea Stop: 12/03/22 18:56 Polyethylene Glycol (Polyethylene (Miralax) 17 Gm Pack) 17 gm PO DAILY PRN PRN Reason: Constipation Stop: 12/03/22 18:56
[2022-12-02] MEDS ORDERED: TPN/PPN CONSULT PHARMACY PRN (15:04)
[2022-12-02 17:17] LABS: BUN Creatinine Ratio 13.7 (10-20); Calcium 8.9 mg/dl (8.6-10.3); Creatinine Clr Calc Pharmacy 119.8 ml/min; Est GFR (Non-African American) 98.3 ml/min; Magnesium 2.3 mg/dl (1.7-2.4); Potassium 3.9 mmol/L (3.5-5.1)
--- NOTE | 2022-12-02 17:59 | Hospitalist Progress Note ---
Date of Service December 02, 2022 Assessment & Plan (1) Schizoaffective disorder: (2) Unable to care for self: (3) Starvation ketoacidosis: (4) Severe malnutrition: Plan 42-year-old male with PMH of schizoaffective disorder, catatonia who presents after being found minimally responsive and covered in feces on a welfare check. He was brought to the hospital. Found to have starvation ketosis with anion gap metabolic acidosis. Schizoaffective disorder with catatonia Patient was admitted for 5 months from 02/2021 to 06/2021 in psychiatric unit here in the hospital. Had neurology evaluation including MRI brain which was normal. CT head without acute intracranial abnormality, tox screen negative Ongoing incontinence of bladder and bowel and had not been eating and drinking Initial trial of Ativan unsuccessful. Appreciate psych's recs and assistance -Daytrana patch 36 mg transdermal with Ativan on 11/27- pt up and talking to nursing, requested sandwich and also ate dinner. Per nursing also had a 15 minute conversation with his mother. Has since become nonresponsive once more. Consider long term care administrator options for feeding. Per psych, pt still does not have capacity in spite of progress previously noted. Mother who is emergency guardian, will continue making decisions for pt. Prior hearing to appoint his mother legal guardian until a later hearing to determine if this will be permanent 12/02-patient did eat half of his breakfast this morning however nothing further throughout the day. Will plan on resuming PPN in the a.m. Scheduled Ativan stopped by psychiatry given no consistent response. 305 hearing scheduled for tomorrow, Dr. Kowalski she to attend. Pneumonia and sepsis was ruled out. 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 Repeat blood cultures were negative and he remains afebrile Severe malnutrition Vitamin D deficiency: Received PPN 11/20 -11/27 and one bag on 11/30 Patient continues to have very poor oral intake over the past 3 days. Did eat half of breakfast this morning however nothing additional throughout the day, will plan on resuming PPN tomorrow. May need to explore PEG tube to keep up his caloric intake if pt continues to refuse food or goes back to being nonresponsive Metabolic acidosis likely due to starvation ketosis. resolved Labs stable today Conjunctivitis, assume bacterial Resolved, received eyedrops DVT PROPHYLAXIS SQ Lovenox Patient seen in collaboration with Dr. Cortez. Dispo - awaiting placement, 305 hearing tomorrow Admission and Anticipated Discharge Date Admission Date: November 03, 2022 Supervising Physician Co-Signing Physician Notes Patient seen and examined at bedside as a follow-up of schizoaffective disorder with catatonia, severe malnutrition secondary to poor p.o. intake, vitamin D deficiency. Patient was lying in bed, on room air, NAD, not interactive, ROS was not able. Per RN, patient with very poor p.o. intake, age half of Palestinian muffin and orange juice in the morning but declined lungs On exam, patient noncommunicative, appears tired/sad/lethargic/sick, heart/lung/abdomen examination fairly WNL. I have seen and examined the patient and have discussed the case with the pr adamer above. I agree with the assessment and plan as stated. Subjective Follow-up for schizoaffective disorder, catatonia, starvation ketosis. Patient seen and examined. Covers head with blanket during most of the exam. Would not allow me to perform physical exam. I saw that the patient ate about half of his breakfast. I discussed with him about restarting IV nutrition therapy and asked if he was going to eat his lunch, he stated, "maybe", and continue to cover his head. No other complaints offered. Results & Data Results & Data Vital Signs (Past 12 Hours) Vital Signs Temp Pulse Resp BP Pulse Ox O2 Del Method 12/02/22 15:53 36.9 C 90 18 113/75 96 Room Air Laboratory Results [facility] 12/02/22 16:16 Sodium 139 Potassium 3.9 Chloride 108 H Carbon Dioxide 24 BUN 13 Creatinine 0.95 Glucose 82 Calcium 8.9
[2022-12-03 08:32] LABS: Anion Gap 7 (3-11); BUN Creatinine Ratio 15.2 (10-20); Blood Urea Nitrogen 14 mg/dl (6-23); Calcium 9.1 mg/dl (8.6-10.3); Carbon Dioxide 23 mmol/L (21-32); Chloride 109 mmol/L (98-107); Creatinine Clr Calc Pharmacy 123.7 ml/min; Est GFR (African American) 118.5 ml/min; Est GFR (Non-African American) 102.2 ml/min; Glucose 82 mg/dl (70-99(Fasting)); Magnesium 2.2 mg/dl (1.7-2.4); Phosphorus 3.7 mg/dl (2.5-4.9); Sodium 139 mmol/L (136-145)
[2022-12-03] MEDS: METHYLPHENIDATE 30 MG TD SCH (08:42)
[2022-12-03] MEDS: ENOXAPARIN INJ 40 MG/0.4 ML SYR SQ SCH (08:42)
[2022-12-03] MEDS: CEROVITE ADV FORMULA TAB PO SCH (08:43)
[2022-12-03] MEDS: ADVANCED PROBIOTIC 1250 MG CAPSULE PO SCH (08:43)
[2022-12-03] MEDS: ERGOCALCIFEROL 50,000 UNITS 1250 MCG CAP PO SCH (08:43)
[2022-12-03] MEDS ORDERED: TPN/PPN CONSULT PHARMACY PRN (09:00)
--- NOTE | 2022-12-03 12:22 | Psychiatric Progress Note ---
Date of Service December 03, 2022 Impression / Recommendations Impression David Diaz is a 42 yo man with a history of major depression and schizoaffective disorder admitted medically for severe decompensation with malnutrition and inability to care for himself. 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 On a converted outpatient to inpatient 304 commitment that expires 12/09/2022. Overall David continues to demonstrate signs of volitional behavior/selectively responds when he chooses to engage, i.e. speaking with his mother on the phone, talking with nurses at times, selectively responding to parts of conversation with me today, and there remains no evidence for catatonia. Reviewed discharge summary from the [facility] for his recent admission from August through September 2022 (approximately a 30 day stay) during which time he initially refused to engage verbally, did not eat, was withdrawn to his room and refused all psychiatric medication and then eventually started to eat his meals, engaged verbally at times and starting taking haldol and Effexor XR just prior to discharge. [place]on questioned the diagnosis of schizophrenia, felt presentation likely due to depression and stressor of desiring more visitation rights with his daughter given that during his stay there was never any evidence for acute psychosis rather just possible paranoia. Over the last three months he has now been evalua ganesh by more than 4 different psychiatrists none of whom feel catatonia is part of the clinical picture. At times he certainly shows some response to IV ativan (but these responses are always inconsistent and not at all what would be expected with catatonia where response would be consistent and sustained) and given improved po intake felt to be ok to try this for a few more days. But worry that more prolonged use may worsen neurovegetative symptoms. Daytrana patch may offer some benefits for depression and risk/benefit profile felt to favor trial at this time since he is eating but if he stops eating risks of potential cardiac event increase and at that time would consider discontinuing the patch. 12/02/2022: No consistent benefit observed with ongoing ativan trial, rather remains selective when and how he chooses to engage. Is attending to hygiene needs of using toilet or bedside commode. Oral intake remains variable. As expected engaged when prospect of PEG tube was raised, stated his opposition to this. No signs of acute psychosis, has been reality-based when he chooses to engage. Told hospitalist provider he chooses when he will eat based on who the RN is who is offering the food. Completed 305 involuntary commitment due to ongoing concerns for his lack of po intake/unable to meet his basic nutritional needs. Remains unclear if his pattern of eating only intermittently would result in /disability within 30 days as the commitment laws require, for this reason hospitalist provider will also be participating in the hearing to speak to medical risks of his current pattern of intake. Will discontinue ativan given ongoing lack of any signs of catatonia. Branham-Alfonso catatonia scale re-done today and David only scoring for immobility/stupor (1), mutism (1), grimacing (1) and withdrawn (2) which have not consistently changed even with repeated ativan trials and have overlap with other conditions such as neurovegetative symptoms of depression. If concerns persist regarding his po intake, particularly risk of /disability then encourage involvement of clinical ethics as additional consultants intern given that his mother has temporary guardianship and it is difficult to assess his decision making capacity since he refuses/or cannot engage in conversation to assess his understandings of risk/benefit/rationale for not eating consistently. Currently advise approach as outlined in paper by SA Nirav When Patients Refuse Assessment of Decision-Making Capacity (Nirav MADERA. When Patients Refuse Assessment of Decision-Making Capacity:How Should Clinicians Respond?Arch Human Capital Manager Med.2004;164(16):[id number]. doi:10.1001/archinte.164.16.1757) which recommends use of a substituted decision maker, in this case his mother, if risk of lack of eating is significant while continuing to discuss treatment course with David as if he were competent. However, ethics should be involved should it get to a point where it is felt he may require additional measures to ensure po intake, such as a procedure like PEG tube, that David is stating opposition to. 12/03/2022: Mute today, some facial grimacing but no change from before or after stopping ativan. Appears more alert since discontinuation of the ativan, now sitting up in bed and more participative with RN and greeting READING COACH. Still with poor po intake and voiding in his bed. Participated in 305 hearing alongside hospitalist provider to speak to concerns re: possible depression and/or factitious disorder impacting his lack of po intake/not meeting his basic nutritional needs but also discussed that no psychiatric interventions have ever showed any significant effect in addressing this, rather review of all prior episodes of similar symptoms, which date back to at least 2018, have resolved once he decides after a period of time to start eating and talking again. It also remains unclear how long he will go without eating and whether or not he would eat if discharged but recently has been requiring supplemental nutrition via PPN. In preparation for hearing reviewed past documentation which included the following from ED case management notes since 2018: 04/2018: Pt. states he finds himself in a severe depression. States he hasn't been able to sleep and or eat. States he has lost weight r/t not eating. Pt. states he spends most of the time on the couch or laying in bed. Pt. states he is paranoid and worries about his safety. States he worries that someone is going to break in the house. States he has problems with going outside at times. 03/2020: He reported when he get anxious he "does a lot of thinking" which is why he does not always respond to someone when they talk to him. The patient reported he does struggle with depression and sometimes feels helpless and has some social withdrawal. 08/2022: David denies any SI or HI but admits that he feels slightly depressed. He states that he hasn't been able to cook or clean due to a "multitude of disabilities". He arrives after admittedly not eating/drinking/taking care of himself over the past week or so. He states that he does feel slightly depressed but does not believe his inability to care for himself stems from his mental health. He states that he hasn't been taking his medications because of the not eating. He surmises he hasn't taken his meds for approximately a week. He lists an ongoing divorce as a stressor as well as not being able to see his 13yo daughter as much as he likes. He believes that his inability to care for himself comes from never learning how to do those things. Patient stated he just "needs someone to come to my house and take care of me because I'm disabled." Patient stated "the only reason I'm eating/drinking is because its brought to me here. You don't understand." Explained inpatient treatment can evaluate his needs for in home care services. Patient requested "until morning to decide. They sent me to [facility] in the past and that's not what I need." Advised patient that [place] is recommended to address his severe depression. Patient stated 'I just need help at home. I can't do things myself and I can't afford to pay for a child day care provider." David acknowledges there are no medical issues preventing him from taking care of himself. Patient again refused to sign stating "I don't want to stay there for 72 hours. I just need someone to help take care of me at home." 10/2022: David stated "I don't need to be in the hospital and I'm tired of being brought here." David stated he don't have to keep answering the same questions "over and over again." David stated he is frustrated that "everyone thinks they know what is best for me and where I should be." Half of mental health thinks I need to be home and the other half threatens me with [facility]." David denies SI/HI/SIB. He stated "I eat when I want to eat and I sleep well." David stated he feels safe to return home. He stated "I shouldn't keep being brought here." Review of documentation from his previous outpatient psychiatrist from [facility] in a note dated on 09/21/2020 describes: "He says that part of the reason for the length that hospital stay ([facility] September 2018 to April 2019) was that he had difficulty engaging with other patients and was described as being withdrawn and secretive". (1) MDD (major depressive disorder), recurrent episode, severe: (2) Factitious disorder: (3) Schizoaffective disorder, depressive type: Plan -Continue with Daytrana patch trial given plan to start PPN but if he refuses this then patch should be discontinued due to concerns for further appetite suppression and potential cardiac risks especially if electrolyte imbalances occur (and he does not allow regular labwork to allow us to safely monitor this) Interval History Identifying Information David Diaz is a 42 yo man with a history of schizoaffective disorder admitted medically for severe decompensation with malnutrition, sepsis and metabolic acidosis. Currently on a 304 commitment. Chief Complaint mute Subjective Subjective Patient was seen & assessed and interval progress reviewed. Per RN and READING COACH he said "hello" to READING COACH this morning and was cooperative when they helped him bathe including rolling over by himself and following some commands. He used the urinal last night but this morning had peed in the bed. Did not eat last night nor this morning. Had 1/2 of his breakfast yesterday. When I see him mid-morning he is sitting up in bed with his eyes closed for most of the time, briefly opens them but not widely, and makes some facial grimaces. Will not respond verbally to any questions. Will not respond when asked if he wants to participate in 305 hearing or if he wants to talk with his accountant certified public this morning. Discussed with him the importance of knowing his wishes for treatment and having his voice heard so that I could accurately portray his wishes at the hearing but he remained mute throughout. Physical Exam Psychiatric Orientation: alert; + uncooperative Apperance: appropriately dressed Eye Contact: + poor eye contact Motor Behavior: + abnormal motor movements (facial grimacing, no pattern) Speech: + mute Insight: + limited insight Judgment: + severely impaired judgement Vital Signs (Past 24 Hours) Last Vital Signs Temp 36.3 C L 12/03/22 07:41 Pulse 81 12/03/22 07:41 Resp 18 12/03/22 07:41 BP 103/70 12/03/22 07:41 Pulse Ox 98 12/03/22 07:41 O2 Del Method Room Air 12/03/22 07:41 Results & Data ([facility]) Laboratory Results Laboratory Results - last 24 hr 12/02/22 12/03/22 16:16 06:58 Sodium 139 139 Potassium 3.9 TNP Chloride 108 H 109 H Carbon Dioxide 24 23 Anion Gap 7 7 BUN 13 14 Creatinine 0.95 0.92 Est Cr Clr Drug Dosing 119.8 123.7 Est GFR ( Amer) 114.0 118.5 Est GFR (Non-Af Amer) 98.3 102.2 BUN/Creatinine Ratio 13.7 15.2 Glucose 82 82 Calcium 8.9 9.1 Phosphorus 3.0 3.7 Magnesium 2.3 2.2 Current Inpatient Medications Current Inpatient Medications: Current Inpatient Medications Acetaminophen (Acetaminophen 325 Mg Tab) 650 mg PO Q4H PRN PRN Reason: Pain or Fever Stop: 12/03/22 18:56 Enoxaparin Sodium (Enoxaparin Inj 40 Mg/0.4 Ml Syr) 40 mg SQ QAM [facility] Stop: 12/16/22 12:14 Last Admin: 12/03/22 08:42 Dose: 40 mg Ergocalciferol (Ergocalciferol 50,000 Units 1250 Mcg Cap) 50,000 units PO Q7D@0900 [facility] Stop: 12/24/22 09:01 Last Admin: 12/03/22 08:43 Dose: Not Given Amino Acids 2,129 ml/ (Nutrition (Parenteral)) 2,129 mls @ 89 mls/hr IV .[id number] [facility]; Protocol Stop: 12/04/22 15:55 Fat Emulsion-[place] Oil/Soybean Oil (Clinolipid 20% Iv Fat Emulsion) 250 mls @ 41.67 mls/hr IV .Q6H ONE Stop: 12/03/22 21:59 Lactobacillus Acidophilus (Advanced Probiotic 1250 Mg Capsule) 2 cap PO DAILY [facility] Stop: 12/05/22 13:29 Last Admin: 12/03/22 08:43 Dose: Not Given Lorazepam (Lorazepam 1 Mg Tab) 1 mg PO Q6H PRN PRN Reason: Anxiety Stop: 12/08/22 17:08 Methylphenidate HCl (Methylphenidate 30 Mg Tdsy) 30 mg TD QAM [facility] Stop: 12/09/22 11:44 Last Admin: 12/03/22 08:42 Dose: 30 mg Miscellaneous (Remove Patch) 1 each N/A DAILY@1800 [facility] Stop: 12/25/22 20:59 Last Admin: 12/02/22 17:55 Dose: 1 each Miscellaneous (Check Patch Placement ) 1 each N/A DAILY@1200,1500 [facility] Stop: 12/27/22 11:59 Last Admin: 12/03/22 11:49 Dose: 1 each Miscellaneous (Stop Clinolipid) 1 each N/A DAILY@2200 [facility] Stop: 01/02/23 21:59 Miscellaneous Information (Tpn/Ppn Consult Pharmacy) 1 each N/A UD PRN PRN Reason: Consult Stop: 01/02/23 08:59 Multivitamins/Minerals (Cerovite Adv Formula Tab) 1 tab PO QAM OG Stop: 12/06/22 08:59 Last Admin: 12/03/22 08:43 Dose: Not Given Ondansetron HCl (Ondansetron Inj 2 Mg/Ml 2 Ml Vial) 4 mg IV Q6H PRN PRN Reason: Nausea Stop: 12/03/22 18:56 Polyethylene Glycol (Polyethylene (Miralax) 17 Gm Pack) 17 gm PO DAILY PRN PRN Reason: Constipation Stop: 12/03/22 18:56
--- NOTE | 2022-12-03 13:53 | Hospitalist Progress Note ---
Date of Service December 03, 2022 Assessment & Plan (1) Schizoaffective disorder: (2) Unable to care for self: (3) Starvation ketoacidosis: (4) Severe malnutrition: Plan 42-year-old male with PMH of schizoaffective disorder, catatonia who presents after being found minimally responsive and covered in feces on a welfare check. He was brought to the hospital. Found to have starvation ketosis with anion gap metabolic acidosis. Schizoaffective disorder with catatonia Patient was admitted for 5 months from 02/2021 to 06/2021 in psychiatric unit here in the hospital. Had neurology evaluation including MRI brain which was normal. CT head without acute intracranial abnormality, tox screen negative Ongoing incontinence of bladder and bowel and had not been eating and drinking Initial trial of Ativan unsuccessful. Appreciate psych's recs and assistance -Daytrana patch 36 mg transdermal with Ativan on 11/27- pt up and talking to nursing, requested sandwich and also ate dinner. Per nursing also had a 15 minute conversation with his mother. Has since become nonresponsive once more. Consider terminal computer operator options for feeding. Per psych, pt still does not have capacity in spite of progress previously noted. Mother who is emergency guardian, will continue making decisions for pt. Prior hearing to appoint his mother legal guardian until a later hearing to determine if this will be permanent 12/02-Patient ate half of his breakfast however nothing further throughout the day. Will plan on resuming PPN. Scheduled Ativan stopped by psychiatry given no consistent response. 12/03 - hearing scheduled for today, Dr. Cortez to attend. Patient remains mute and refusing to eat. Will resume PPN today. 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 Repeat blood cultures were negative and he remains afebrile Pneumonia and sepsis was ruled out Severe malnutrition Vitamin D deficiency: Received PPN 11/20 -11/27 and one bag on 11/30 Patient continues to have very poor oral intake over the past 3 days. Did eat half of breakfast on 12/02 morning however nothing additional throughout the day, will plan on resuming PPN today. May need to explore PEG tube to keep up his caloric intake if pt continues to refuse food or goes back to being nonresponsive Metabolic acidosis likely due to starvation ketosis. resolved Labs stable today Conjunctivitis, assume bacterial Resolved, received eyedrops DVT PROPHYLAXIS SQ Lovenox Patient seen in collaboration with Dr. Cortez. Dispo - awaiting placement, 305 hearing today. Admission and Anticipated Discharge Date Admission Date: November 03, 2022 Supervising Physician Co-Signing Physician Notes Patient seen and examined at bedside as a follow-up of schizoaffective disorder with catatonia, severe malnutrition secondary to poor p.o. intake, vitamin D deficiency. Patient was lying in bed, on room air, NAD, not interactive, ROS was not able. Per RN, patient with very poor p.o. intake, ate half of Bahamian muffin and orange juice in yesterday morning. On exam, patient noncommunicative, appears tired/sad/lethargic/sick, heart/lung/abdomen examination fairly WNL. Court hearing attended today. I have seen and examined the patient and have discussed the case with the provider above. I agree with the assessment and plan as stated. Subjective Follow-up for schizoaffective disorder, catatonia, starvation ketosis. Patient seen and examined. Patient mute this morning with some facial grimacing. Does not appear to be in any acute distress. Did not eat breakfast. Physical Exam Constitutional: WD/WN, vitals as above Respiratory: normal respiratory effort, lungs clear to auscultation Cardiovascular: Rate/Rhythm: regular rate and regular rhythm Vessels: normal peripheral pulses Extremities: no edema Gastrointestinal (Abdomen): Percussion/Palpation: abdomen soft; abdomen nontender Skin: no rashes, warm and dry Psychiatric: Mute with some facial grimacing Results & Data Results & Data Vital Signs (Past 12 Hours) Vital Signs Temp Pulse Resp BP Pulse Ox O2 Del Method 12/03/22 07:41 36.3 C L 81 18 103/70 98 Room Air Laboratory Results [facility] 12/02/22 12/03/22 16:16 06:58 Sodium 139 139 Potassium 3.9 TNP Chloride 108 H 109 H Carbon Dioxide 24 23 BUN 13 14 Creatinine 0.95 0.92 Glucose 82 82 Calcium 8.9 9.1
[2022-12-03] MEDS ORDERED: CLINOLIPID 20% IV FAT EMULSION 250 ML IV ONE (16:00)
[2022-12-03] MEDS ORDERED: [UNRECOGNIZED DRUG - OTHER] IV SCH (16:00)
[2022-12-03] MEDS ORDERED: PERIPHERAL TPN IV SCH (16:00)
[2022-12-03] MEDS: STOP CLINOLIPID SCH (23:07)
[2022-12-04] MEDS: METHYLPHENIDATE 30 MG TD SCH (08:39)
[2022-12-04] MEDS: ENOXAPARIN INJ 40 MG/0.4 ML SYR SQ SCH (08:41)
[2022-12-04] MEDS: ADVANCED PROBIOTIC 1250 MG CAPSULE PO SCH (08:42)
[2022-12-04] MEDS: CEROVITE ADV FORMULA TAB PO SCH (08:42)
[2022-12-04] MEDS ORDERED: [UNRECOGNIZED DRUG - OTHER] IV SCH (16:00)
[2022-12-04] MEDS ORDERED: CLINOLIPID 20% IV FAT EMULSION 250 ML IV ONE (16:00)
[2022-12-04] MEDS ORDERED: PERIPHERAL TPN IV SCH (16:00)
--- NOTE | 2022-12-04 17:40 | Hospitalist Progress Note ---
Date of Service December 04, 2022 Assessment & Plan (1) Schizoaffective disorder: (2) Unable to care for self: (3) Starvation ketoacidosis: (4) Severe malnutrition: Plan 42-year-old male with PMH of schizoaffective disorder, catatonia who presents after being found minimally responsive and covered in feces on a welfare check. He was brought to the hospital. Found to have starvation ketosis with anion gap metabolic acidosis. Schizoaffective disorder with catatonia Patient was admitted for 5 months from 02/2021 to 06/2021 in psychiatric unit here in the hospital. Had neurology evaluation including MRI brain which was normal. CT head without acute intracranial abnormality, tox screen negative Ongoing incontinence of bladder and bowel and had not been eating and drinking Initial trial of Ativan unsuccessful. Appreciate psych's recs and assistance -Daytrana patch 36 mg transdermal with Ativan on 11/27- pt up and talking to nursing, requested sandwich and also ate dinner. Per nursing also had a 15 minute conversation with his mother. Has since become nonresponsive once more. Consider terminal operator options for feeding. Per psych, pt still does not have capacity in spite of progress previously noted. Mother who is emergency guardian, will continue making decisions for pt. Prior hearing to appoint his mother legal guardian until a later hearing to determine if this will be permanent 12/02-Patient ate half of his breakfast however nothing further throughout the day. Will plan on resuming PPN. Scheduled Ativan stopped by psychiatry given no consistent response. 12/03 - hearing approved. Continue with PPN., Patient with poor to no appetite. Bacteremia 2/4 bottles positive and pt started on vancomycin on 11/03 1/4 bottles grew INTERIOR DESIGN COORDINATOR not lugdenensis and 1/4 grew anaerococcus prevoti vancomycin was stopped 11/07 as this was thought to be a contaminant. Repeat blood cultures were negative and he remains afebrile Pneumonia and sepsis was ruled out Severe malnutrition Vitamin D deficiency: Received PPN 11/20 -11/27 and one bag on 11/30 Patient continues to have very poor oral intake over the past 3 days. Did eat half of breakfast on 12/02 morning however nothing additional throughout the day, will plan on resuming PPN today. May need to explore PEG tube to keep up his caloric intake if pt continues to refuse food or goes back to being nonresponsive Metabolic acidosis likely due to starvation ketosis. resolved Labs stable today Conjunctivitis, assume bacterial Resolved, received eyedrops DVT PROPHYLAXIS SQ Lovenox Patient seen in collaboration with Dr. Cortez. Dispo -uncertain Admission and Anticipated Discharge Date Admission Date: November 03, 2022 Subjective Follow-up for schizoaffective disorder, catatonia, starvation ketosis. Patient seen and examined. Patient mute this morning as usual with some facial grimacing. Does not appear to be in any acute distress. Did not eat breakfast per RN Physical Exam Physical Exam: General Appearance :Lying on the bed comfortably.slee ping. Respiratory :normal respirato ry effort, lungs c lear to auscultati on, no wheeze, ral es, rhonchi. No a ccessory muscle us e Cardiovascular: tachycardic rate, regular rhythm, n o murmur, normal p eripheral pulses, no BLE edema. Vess els: no JVD Chest: normal inspectio n of chest Abdomen /GI: normal bowel sounds, soft, non tender, no hepatos plenomegaly Extrem ities/Musculoskele eliz: no cyanosis or clubbing, extre mities motor stren gt 5/5 Neurologic /psych: Does not a nswer any question s Skin: no rashes , normal color, wa rm/dry, excoriated area near groin b ut no open wounds visualized Results & Data Results & Data Vital Signs (Past 12 Hours) Vital Signs Temp Pulse Resp BP Pulse Ox O2 Del Method 12/04/22 15:33 37.1 C 90 18 121/86 98 Room Air 12/04/22 07:28 36.6 C 83 16 120/86 94 Room Air
[2022-12-04] MEDS: STOP CLINOLIPID SCH (23:09)
[2022-12-05] MEDS: METHYLPHENIDATE 30 MG TD SCH (08:24)
[2022-12-05] MEDS: ADVANCED PROBIOTIC 1250 MG CAPSULE PO SCH (08:28)
[2022-12-05] MEDS: ENOXAPARIN INJ 40 MG/0.4 ML SYR SQ SCH (08:28)
[2022-12-05] MEDS: CEROVITE ADV FORMULA TAB PO SCH (08:28)
--- NOTE | 2022-12-05 14:29 | Pharmacy Report ---
PHA: Parenteral Nutrition Con - Date of Service December 05, 2022 - Scope Pharmacy was consulted originally consulted on 11/21/22 until 11/30/22, then PPN restarted on 12/03/22 to manage parenteral nutrition orders for this patient. - Subjective The patient is currently on day 12 of peripheral parenteral nutrition (with 2 days off on 12/01-12/02) for severe malnutrition secondary to patient refusal to eat - Objective Height: 5 ft 10 in Weight: 97.8 kg Intake & Output (24hrs):: Intake & Output 12/03/22 12/04/22 12/05/22 12/06/22 06:59 06:59 06:59 06:59 Intake Total 600 / 600 1895.017 / 1895.017 Output Total 375 / 375 325 / 325 225 / 225 600 / 600 Balance -375 / -375 275 / 275 1670.017 / 1670.017 -600 / -600 Weight 98.1 kg 97.8 kg Nutrition Assessment:: Please refer to the Notes section of the EMR for the most recent spiritual counselor note. - Assessment * Patient is at goal rate of PPN * Refusing lab draws at this time. Last set of labs was 12/03/22. Labs ordered again for tomorrow morning. * Still refusing enteral nutrition - plan is to continue PPN today. * Plan is tentatively to place PICC line tomorrow for central administration of PN. - Plan For day 12 of PN administration, the following will be ordered: Macronutrients Amino acids 85 grams/day Dextrose 100 grams/day Lipids 50 grams/day Micronutrients Combined electrolytes 20 mL - contains 35 mEq Na, 20 meq K, 4.5 mEq Ca, 5 mEq Mg, 35 mEq Cl, 29.5 mEq acetate per 20 mL Sodium phosphate 21 MMol Sodium acetate 130 mEq Potassium acetate 50 mEq Multivitamins 10 mL Trace Elements 1 mL Additional additives: thiamine 100 mg, folic acid 1 mg Total volume 2129 mL to be infused over 24 hrs will provide 1180 kcal/day Final osmolarity 884 mOsm/L (maximum for PPN is 900 mOsm/L) Labs, as indicated, will be ordered per protocol Pharmacy will continue to follow and adjust parenteral nutrition orders on a daily basis. Thank you for allowing us to participate in the care of this patient.
[2022-12-05] MEDS ORDERED: [UNRECOGNIZED DRUG - OTHER] IV SCH (16:00)
[2022-12-05] MEDS ORDERED: CLINOLIPID 20% IV FAT EMULSION 250 ML IV ONE (16:00)
[2022-12-05] MEDS ORDERED: PERIPHERAL TPN IV SCH (16:00)
--- NOTE | 2022-12-05 16:37 | Hospitalist Progress Note ---
Date of Service December 05, 2022 Assessment & Plan (1) Schizoaffective disorder: (2) Unable to care for self: (3) Starvation ketoacidosis: (4) Severe malnutrition: Plan 42-year-old male with PMH of schizoaffective disorder, catatonia who presents after being found minimally responsive and covered in feces on a welfare check. He was brought to the hospital. Found to have starvation ketosis with anion gap metabolic acidosis. Schizoaffective disorder with catatonia Patient was admitted for 5 months from 02/2021 to 06/2021 in psychiatric unit here in the hospital. Had neurology evaluation including MRI brain which was normal. CT head without acute intracranial abnormality, tox screen negative Ongoing incontinence of bladder and bowel and had not been eating and drinking Initial trial of Ativan unsuccessful. Appreciate psych's recs and assistance -Daytrana patch 36 mg transdermal with Ativan on 11/27- pt up and talking to nursing, requested sandwich and also ate dinner. Per nursing also had a 15 minute conversation with his mother. Has since become nonresponsive once more. Consider intermediate school teacher options for feeding. Per psych, pt still does not have capacity in spite of progress previously noted. Mother who is emergency guardian, will continue making decisions for pt. Prior hearing to appoint his mother legal guardian until a later hearing to determine if this will be permanent 12/02-Patient ate half of his breakfast however nothing further throughout the day. Will plan on resuming PPN. Scheduled Ativan stopped by psychiatry given no consistent response. 12/03 - hearing approved. Continue with PPN., Patient with poor to no appetite. c/w PPN. consider picc line, will get approval from pt's mother. Bacteremia 2/4 bottles positive and pt started on vancomycin on 11/03 1/4 bottles grew COUNSELOR DORMITORY not lugdenensis and 1/4 grew anaerococcus prevoti vancomycin was stopped 11/07 as this was thought to be a contaminant. Repeat blood cultures were negative and he remains afebrile Pneumonia and sepsis was ruled out Severe malnutrition Vitamin D deficiency: Received PPN 11/20 -11/27 and one bag on 11/30 Patient continues to have very poor oral intake over the past 3 days. Did eat half of breakfast on 12/02 morning however nothing additional throughout the day, will plan on resuming PPN today. May need to explore PEG tube to keep up his caloric intake if pt continues to refuse food or goes back to being nonresponsive Metabolic acidosis likely due to starvation ketosis. resolved Labs stable today Conjunctivitis, assume bacterial Resolved, received eyedrops DVT PROPHYLAXIS SQ Lovenox Dispo -uncertain Admission and Anticipated Discharge Date Admission Date: November 03, 2022 Subjective Follow-up for schizoaffective disorder, catatonia, starvation ketosis. Patient seen and examined. Patient mute this morning as usual. Does not appear to be in any acute distress. Did not eat breakfast or lunch per RN Physical Exam Physical Exam: General Appearance :Lying on the bed comfortably.slee ping. Respiratory :normal respirato ry effort, lungs c lear to auscultati on, no wheeze, ral es, rhonchi. No a ccessory muscle us e Cardiovascular: tachycardic rate, regular rhythm, n o murmur, normal p eripheral pulses, no BLE edema. Vess els: no JVD Chest: normal inspectio n of chest Abdomen /GI: normal bowel sounds, soft, non tender, no hepatos plenomegaly Extrem ities/Musculoskele eliz: no cyanosis or clubbing, extre mities motor stren gth 5/5 Neurologic /psych: Does not a nswer any question s Skin: no rashes , normal color, wa rm/dry, excoriated area near groin b ut no open wounds visualized Results & Data Results & Data Vital Signs (Past 12 Hours) Vital Signs Temp Pulse Pulse Resp BP BP Pulse Ox 12/05/22 15:30 106/71 12/05/22 15:27 36.8 C 70 18 159/96 H 96 12/05/22 07:28 37.0 C 77 20 137/87 97 O2 Del Method 12/05/22 15:30 12/05/22 15:27 Room Air 12/05/22 07:28 Room Air
[2022-12-05] MEDS: STOP CLINOLIPID SCH (22:18)
[2022-12-06 07:02] LABS: BUN Creatinine Ratio 14.7 (10-20); Calcium 9.1 mg/dl (8.6-10.3); Creatinine Clr Calc Pharmacy 150.5 ml/min; Est GFR (African American) 131.1 ml/min; Est GFR (Non-African American) 113.1 ml/min; Magnesium 1.9 mg/dl (1.7-2.4); Phosphorus 3.2 mg/dl (2.5-4.9)
[2022-12-06] MEDS: ENOXAPARIN INJ 40 MG/0.4 ML SYR SQ SCH (07:57)
[2022-12-06] MEDS: METHYLPHENIDATE 30 MG TD SCH (07:57)
[2022-12-06] MEDS ORDERED: PERIPHERAL TPN IV SCH (16:00)
[2022-12-06] MEDS ORDERED: [UNRECOGNIZED DRUG - OTHER] IV SCH (16:00)
[2022-12-06] MEDS ORDERED: CLINOLIPID 20% IV FAT EMULSION 250 ML IV ONE (16:00)
--- NOTE | 2022-12-06 17:08 | Hospitalist Progress Note ---
Date of Service December 06, 2022 Assessment & Plan (1) Schizoaffective disorder: (2) Unable to care for self: (3) Starvation ketoacidosis: (4) Severe malnutrition: Plan 42-year-old male with PMH of schizoaffective disorder, catatonia who presents after being found minimally responsive and covered in feces on a welfare check. He was brought to the hospital. Found to have starvation ketosis with anion gap metabolic acidosis. Schizoaffective disorder with catatonia Patient was admitted for 5 months from 02/2021 to 06/2021 in psychiatric unit here in the hospital. Had neurology evaluation including MRI brain which was normal. CT head without acute intracranial abnormality, tox screen negative Ongoing incontinence of bladder and bowel and had not been eating and drinking Initial trial of Ativan unsuccessful. Appreciate psych's recs and assistance -Daytrana patch 36 mg transdermal with Ativan on 11/27- pt up and talking to nursing, requested sandwich and also ate dinner. Per nursing also had a 15 minute conversation with his mother. Has since become nonresponsive once more. Consider director long term care options for feeding. Per psych, pt still does not have capacity in spite of progress previously noted. Mother who is emergency guardian, will continue making decisions for pt. Prior hearing to appoint his mother legal guardian until a later hearing to determine if this will be permanent 12/02-Patient ate half of his breakfast however nothing further throughout the day. Will plan on resuming PPN. Scheduled Ativan stopped by psychiatry given no consistent response. 12/03 - hearing approved. Continue with PPN., Patient with poor to no appetite. c/w PPN. consider picc line, will get approval from pt's mother. Finally able to reach to pt's mother today afternoon, she is agreeable to NG tube or PICC line as long as it is explained to the patient in detail though he doesn't participate in conversation. Plan for NG tube tomorrow after explaining to patient w/ RN by bedside; i did explain today to the patient though with no participation from him in the conversation. 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 Repeat blood cultures were negative and he remains afebrile Pneumonia and sepsis was ruled out Severe malnutrition Vitamin D deficiency: Received PPN 11/20 -11/27 and one bag on 11/30 Patient continues to have very poor oral intake over the past 3 days. Did eat half of breakfast on 12/02 morning however nothing additional throughout the day, will plan on resuming PPN today. May need to explore PEG tube to keep up his caloric intake if pt continues to refuse food or goes back to being nonresponsive Metabolic acidosis likely due to starvation ketosis. resolved Labs stable today Conjunctivitis, assume bacterial Resolved, received eyedrops DVT PROPHYLAXIS SQ Lovenox Dispo -uncertain Admission and Anticipated Discharge Date Admission Date: November 03, 2022 Subjective Follow-up for schizoaffective disorder, catatonia, starvation ketosis. Patient seen and examined. Patient mute this morning as usual. Does not appear to be in any acute distress. Did not eat breakfast or lunch per RN Physical Exam Physical Exam: General Appearance :Lying on the bed comfortably.slee ping. Respiratory :normal respirato ry effort, lungs c lear to auscultati on, no wheeze, ral es, rhonchi. No a ccessory muscle us e Cardiovascular: tachycardic rate, regular rhythm, n o murmur, normal p eripheral pulses, no BLE edema. Vess els: no JVD Chest: normal inspectio n of chest Abdomen /GI: normal bowel sounds, soft, non tender, no hepatos plenomegaly Extrem ities/Musculoskele eliz: no cyanosis or clubbing, extre mities motor stren gth 5/5 Neurologic /psych: Does not a nswer any question s Skin: no rashes , normal color, wa rm/dry, excoriated area near groin b ut no open wounds visualized Results & Data Results & Data Vital Signs (Past 12 Hours) Vital Signs Temp Pulse Pulse Resp BP Pulse Ox O2 Del Method 12/06/22 15:28 37.2 C 67 18 113/76 97 Room Air 12/06/22 08:06 Room Air 12/06/22 07:44 36.8 C 83 18 122/79 96 Room Air
[2022-12-06] MEDS: STOP CLINOLIPID SCH (22:20)
[2022-12-07] MEDS: METHYLPHENIDATE 30 MG TD SCH (07:42)
[2022-12-07] MEDS: ENOXAPARIN INJ 40 MG/0.4 ML SYR SQ SCH (07:42)
[2022-12-07 09:17] LABS: BUN Creatinine Ratio 15.8 (10-20); Blood Urea Nitrogen 12 mg/dl (6-23); Calcium 9.4 mg/dl (8.6-10.3); Carbon Dioxide 24 mmol/L (21-32); Chloride 109 mmol/L (98-107); Creatinine Clr Calc Pharmacy 148.4 ml/min; Est GFR (African American) 130.4 ml/min; Est GFR (Non-African American) 112.5 ml/min; Glucose 102 mg/dl (70-99(Fasting))
[2022-12-07 15:24] LABS: Potassium 4.8 mmol/L (3.5-5.1)
--- NOTE | 2022-12-07 15:35 | Hospitalist Progress Note ---
Date of Service December 07, 2022 Assessment & Plan (1) Schizoaffective disorder: (2) Unable to care for self: (3) Starvation ketoacidosis: (4) Severe malnutrition: Plan 42-year-old male with PMH of schizoaffective disorder, catatonia who presents after being found minimally responsive and covered in feces on a welfare check. He was brought to the hospital. Found to have starvation ketosis with anion gap metabolic acidosis. Schizoaffective disorder with catatonia Patient was admitted for 5 months from 02/2021 to 06/2021 in psychiatric unit here in the hospital. Had neurology evaluation including MRI brain which was normal. CT head without acute intracranial abnormality, tox screen negative Ongoing incontinence of bladder and bowel and had not been eating and drinking Initial trial of Ativan unsuccessful. Appreciate psych's recs and assistance -Daytrana patch 36 mg transdermal with Ativan on 11/27- pt up and talking to nursing, requested sandwich and also ate dinner. Per nursing also had a 15 minute conversation with his mother. Has since become nonresponsive once more. Consider local intermodal truck driver options for feeding. Per psych, pt still does not have capacity in spite of progress previously noted. Mother who is emergency guardian, will continue making decisions for pt. Prior hearing to appoint his mother legal guardian until a later hearing to determine if this will be permanent 12/02-Patient ate half of his breakfast however nothing further throughout the day. Will plan on resuming PPN. Scheduled Ativan stopped by psychiatry given no consistent response. 12/03 - hearing approved. Patient with poor to no appetite. Patient lost PPN line 12/07, ate few bites of his burger today. NG tube versus PICC line when indicated, discussion has been held with monitor 12/06 Continue to monitor labs. Bacteremia 2/4 bottles positive and pt started on vancomycin on 11/03 1/4 bottles grew COUNTY DIRECTOR WELFARE not lugdenensis and 1/4 grew anaerococcus prevoti vancomycin was stopped 11/07 as this was thought to be a contaminant. Repeat blood cultures were negative and he remains afebrile Pneumonia and sepsis was ruled out Severe malnutrition Vitamin D deficiency: Received PPN 11/20 -11/27 and one bag on 11/30 Patient continues to have very poor oral intake. See above. May need to explore PEG tube to keep up his caloric intake if pt continues to refuse food or goes back to being nonresponsive Metabolic acidosis : likely due to starvation ketosis. resolved Conjunctivitis, assume bacterial: Resolved, received eyedrops DVT PROPHYLAXIS: SQ Lovenox Dispo -uncertain Admission and Anticipated Discharge Date Admission Date: November 03, 2022 Subjective Follow-up for schizoaffective disorder, catatonia, starvation ketosis. Patient seen and examined. Patient mute this morning as usual. With RN at bedside, patient again explained today in detail regarding the need for NG tube for nutrition, if declined PICC line for parenteral nutrition temporarily. Patient did not participate in the communication at all. Had discussion with patient's mother yesterday regarding this and she agreed to the needed intervention wanted him to be explained again which I did today as well. Per RN patient ate couple of bites of his burger today and also drank yesterday. We will hold onto NG tube placement today. Does not appear to be in any acute distress. Physical Exam Physical Exam: General Appearance :Lying on the bed comfortably.slee ping. Respiratory :normal respirato ry effort, lungs c lear to auscultati on, no wheeze, ral es, rhonchi. No a ccessory muscle us e Cardiovascular: tachycardic rate, regular rhythm, n o murmur, normal p eripheral pulses, no BLE edema. Vess els: no JVD Chest: normal inspectio n of chest Abdomen /GI: normal bowel sounds, soft, non tender, no hepatos plenomegaly Extrem ities/Musculoskele eliz: no cyanosis or clubbing, extre mities motor stren gth 5/5 Neurologic /psych: Does not a nswer any question s Skin: no rashes , normal color, wa rm/dry, excoriated area near groin b ut no open wounds visualized Results & Data Results & Data Vital Signs (Past 12 Hours) Vital Signs Temp Pulse Resp BP Pulse Ox O2 Del Method 12/07/22 14:47 37.2 C 82 17 99/71 L 99 Room Air 12/07/22 08:23 Room Air 12/07/22 07:23 36.7 C 83 17 116/70 97 Room Air
[2022-12-07] MEDS ORDERED: ACETAMINOPHEN 325 MG TAB PO ONE (17:58)
[2022-12-07] MEDS: LORazepam 1 MG TAB PO PRN (18:01)
[2022-12-07] MEDS ORDERED: ACETAMINOPHEN 325 MG TAB PO PRN (21:20)
[2022-12-08] MEDS: ENOXAPARIN INJ 40 MG/0.4 ML SYR SQ SCH (09:10)
[2022-12-08] MEDS: METHYLPHENIDATE 30 MG TD SCH (09:14)
[2022-12-08] MEDS: LORazepam 1 MG TAB PO PRN (15:08)
[2022-12-08 16:35] LABS: BUN Creatinine Ratio 12.5 (10-20); Calcium 9.3 mg/dl (8.6-10.3); Creatinine Clr Calc Pharmacy 140.9 ml/min; Est GFR (African American) 127.7 ml/min; Est GFR (Non-African American) 110.2 ml/min; Phosphorus 3.6 mg/dl (2.5-4.9); Potassium 4.1 mmol/L (3.5-5.1)
--- NOTE | 2022-12-08 17:33 | Hospitalist Progress Note ---
Date of Service December 08, 2022 Assessment & Plan (1) Schizoaffective disorder: (2) Unable to care for self: (3) Starvation ketoacidosis: (4) Severe malnutrition: Plan 42-year-old male with PMH of schizoaffective disorder, catatonia who presents after being found minimally responsive and covered in feces on a welfare check. He was brought to the hospital. Found to have starvation ketosis with anion gap metabolic acidosis. Schizoaffective disorder with catatonia Patient was admitted for 5 months from 02/2021 to 06/2021 in psychiatric unit here in the hospital. Had neurology evaluation including MRI brain which was normal. CT head without acute intracranial abnormality, tox screen negative Ongoing incontinence of bladder and bowel and had not been eating and drinking Initial trial of Ativan unsuccessful. Appreciate psych's recs and assistance -Daytrana patch 36 mg transdermal with Ativan on 11/27- pt up and talking to nursing, requested sandwich and also ate dinner. Per nursing also had a 15 minute conversation with his mother. Has since become nonresponsive once more. Consider extermination supervisor options for feeding. Per psych, pt still does not have capacity in spite of progress previously noted. Mother who is emergency guardian, will continue making decisions for pt. Prior hearing to appoint his mother legal guardian until a later hearing to determine if this will be permanent 12/02-Patient ate half of his breakfast however nothing further throughout the day. 12/03 - hearing approved. 12/07: Last PPN line and hence nutrition. He ate some of his lunch and some of his dinner on this day. Patient with poor to no appetite most of the time. NG tube versus PICC line when indicated, discussion has been held with monitor 12/06 Continue to monitor labs. Bacteremia 2/4 bottles positive and pt started on vancomycin on 11/03 1/4 bottles grew PLANT UTILITY PERSON not lugdenensis and 1/4 grew anaerococcus prevoti vancomycin was stopped 11/07 as this was thought to be a contaminant. Repeat blood cultures were negative and he remains afebrile Pneumonia and sepsis was ruled out Severe malnutrition Vitamin D deficiency: Received PPN 11/20 -11/27 and one bag on 11/30 Patient continues to have very poor oral intake. See above. May need to explore PEG tube to keep up his caloric intake if pt continues to refuse food or goes back to being nonresponsive Metabolic acidosis : likely due to starvation ketosis. resolved Conjunctivitis, assume bacterial: Resolved, received eyedrops DVT PROPHYLAXIS: SQ Lovenox Dispo -uncertain, patient's temporary guardian [mother] does not want him to be discharged without letting her know. Patient's mother again updated 12/08, approximately 8-minute spent in the conversation. Admission and Anticipated Discharge Date Admission Date: November 03, 2022 Subjective Follow-up for schizoaffective disorder, catatonia, starvation ketosis. Patient seen and examined. Patient mute this morning as usual. Patient again explained today the need for NG tube versus PICC line for nutrition if he does not eat. Per RN, he ate some of his lunch and some of his dinner yesterday. Does not appear to be in any acute distress. Physical Exam Physical Exam: General Appearance :Lying on the bed comfortably.slee ping. Respiratory :normal respirato ry effort, lungs c lear to auscultati on, no wheeze, ral es, rhonchi. No a ccessory muscle us e Cardiovascular: tachycardic rate, regular rhythm, n o murmur, normal p eripheral pulses, no BLE edema. Vess els: no JVD Chest: normal inspectio n of chest Abdomen /GI: normal bowel sounds, soft, non tender, no hepatos plenomegaly Extrem ities/Musculoskele eliz: no cyanosis or clubbing, extre mities motor stren gt 5/5 Neurologic /psych: Does not a nswer any question s Skin: no rashes , normal color, wa rm/dry, excoriated area near groin b ut no open wounds visualized Results & Data Results & Data Vital Signs (Past 12 Hours) Vital Signs Temp Pulse Resp BP Pulse Ox O2 Del Method 12/08/22 15:10 36.4 C L 106 H 18 117/84 98 Room Air 12/08/22 06:59 36.4 C L 90 16 104/71 98 Room Air
[2022-12-09] MEDS: ENOXAPARIN INJ 40 MG/0.4 ML SYR SQ SCH (08:54)
[2022-12-09] MEDS: METHYLPHENIDATE 30 MG TD SCH (08:57)
[2022-12-09 11:16] LABS: Hematocrit (blood only) 49.8 % (42.0-52.0); Hemoglobin 17.5 g/dl (14.0-18.0); Mean Corpuscular Hemoglobin 30.8 pg (25.0-34.0); Mean Corpuscular Hgb Conc 35.1 g/dL (32.0-36.0); Mean Corpuscular Volume 87.5 fL (80.0-100.0); Platelet Count 198 K/uL (130-400); RDW Coefficient of Variation 12.9 % (11.5-14.5); RDW Standard Deviation 40.8 fL (36.4-46.3); Red Blood Count 5.69 M/uL (4.70-6.10); White Blood Count 8.63 K/ul (4.8-10.8)
[2022-12-09 11:22] LABS: Calcium 9.5 mg/dl (8.6-10.3); Creatinine Clr Calc Pharmacy 129.9 ml/min; Magnesium 2.1 mg/dl (1.7-2.4); Phosphorus 3.7 mg/dl (2.5-4.9); Potassium 4.1 mmol/L (3.5-5.1)
--- NOTE | 2022-12-09 12:24 | Hospitalist Progress Note ---
Date of Service December 09, 2022 Assessment & Plan (1) Schizoaffective disorder: (2) Unable to care for self: (3) Starvation ketoacidosis: (4) Severe malnutrition: Plan 42-year-old male with PMH of schizoaffective disorder, catatonia who presents after being found minimally responsive and covered in feces on a welfare check. He was brought to the hospital. Found to have starvation ketosis with anion gap metabolic acidosis. Schizoaffective disorder with catatonia Patient was admitted for 5 months from 02/2021 to 06/2021 in psychiatric unit here in the hospital. Had neurology evaluation including MRI brain which was normal. CT head without acute intracranial abnormality, tox screen negative Ongoing incontinence of bladder and bowel and had not been eating and drinking Initial trial of Ativan unsuccessful. Appreciate psych's recs and assistance -Daytrana patch 36 mg transdermal with Ativan on 11/27- pt up and talking to nursing, requested sandwich and also ate dinner. Per nursing also had a 15 minute conversation with his mother. Has since become nonresponsive once more. Consider terminal operator options for feeding. Per psych, pt still does not have capacity in spite of progress previously noted. Mother who is emergency guardian, will continue making decisions for pt. Prior hearing to appoint his mother legal guardian until a later hearing to determine if this will be permanent 12/02-Patient ate half of his breakfast however nothing further throughout the day. 12/03 - hearing approved. 12/07: Last PPN line and hence nutrition. He ate some of his lunch and some of his dinner on this day. 12/09- pt no responding to provider but is responsive to nursing, re evaluated pt twice with same response. 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 Repeat blood cultures were negative and he remains afebrile Pneumonia and sepsis was ruled out Severe malnutrition Vitamin D deficiency: Received PPN 11/20 -11/27 and one bag on 11/30 Patient continues to have very poor oral intake. See above. May need to explore PEG tube to keep up his caloric intake if pt continues to refuse food or goes back to being nonresponsive Metabolic acidosis : likely due to starvation ketosis. resolved Conjunctivitis, assume bacterial: Resolved, received eyedrops DVT PROPHYLAXIS: SQ Lovenox Dispo -uncertain, patient's temporary guardian [mother] does not want him to be discharged without letting her know, per CM pt does not qualify for inpt psych, need to get patient eating/nutrition and will have to d/c A total of 45 was spent coordinating, documenting, and providing care for this patient excluding time spent in the performance of separately billed services. This included personally viewing all current laboratories and imaging studies, medication reconciliation, outpatient chart review, and discussion with specialists. Admission and Anticipated Discharge Date Admission Date: November 03, 2022 Supervising Physician Co-Signing Physician Notes Patient seen and examined at bedside as a follow-up of schizoaffective disorder with catatonia, severe malnutrition secondary to poor p.o. intake, vitamin D deficiency. Patient was lying in bed, on room air, NAD, not interactive, ROS was not able. Per RN, patient with very poor p.o. intake but ate few doritos, cookie, drank some water and 1/2 carton of ice team at 1528 On exam, patient noncommunicative, appears tired/sad/lethargic/sick, heart/lung/abdomen examination fairly WNL. Pt explained the need for nutrition and options for approach if he is not eating. I have seen and examined the patient and have discussed the case with the provider above. I agree with the assessment and plan as stated. Subjective Pt was seen and examined in room 377-2. Follow up catatonia. Spoke to nurse Godwin who feels pt may be more responsive to certain people and tends to shut down when new people are introduced. I approached pt and he would not respond. ROS unobtainable do to pt not responding to questions Attempted to re interview patient with nurse Godwin at bedside @ 1400 and pt remains mute to me. Review of Systems Review of Systems: Unobtainable due to mental health condition Physical Exam Physical Exam: pt not examined as pt would not respond Results & Data Results & Data Vital Signs (Past 12 Hours) Vital Signs Temp Pulse Resp BP Pulse Ox O2 Del Method 12/09/22 08:27 36.9 C 89 17 119/83 96 Room Air Medications Administered Current Inpatient Medications Acetaminophen (Acetaminophen 325 Mg Tab) 650 mg PO Q6H PRN PRN Reason: Fever/Pain Stop: 01/06/23 21:19 Enoxaparin Sodium (Enoxaparin Inj 40 Mg/0.4 Ml Syr) 40 mg SQ QAM [facility] Stop: 12/16/22 12:14 Last Admin: 12/09/22 08:54 Dose: 40 mg Ergocalciferol (Ergocalciferol 50,000 Units 1250 Mcg Cap) 50,000 units PO Q7D@0900 [facility] Stop: 12/24/22 09:01 Last Admin: 12/03/22 08:43 Dose: Not Given Miscellaneous (Remove Patch) 1 each N/A DAILY@1800 [facility] Stop: 12/25/22 20:59 Last Admin: 12/08/22 18:23 Dose: 1 each Miscellaneous (Check Patch Placement ) 1 each N/A DAILY@1200,1500 [facility] Stop: 12/27/22 11:59 Last Admin: 12/08/22 15:09 Dose: 1 each Miscellaneous Information (Tpn/Ppn Consult Pharmacy) 1 each N/A UD PRN PRN Reason: Consult Stop: 01/02/23 08:59
[2022-12-10] MEDS: ENOXAPARIN INJ 40 MG/0.4 ML SYR SQ SCH (08:25)
[2022-12-10] MEDS: METHYLPHENIDATE 30 MG TD SCH (08:29)
--- NOTE | 2022-12-10 12:48 | Hospitalist Progress Note ---
Date of Service December 10, 2022 Assessment & Plan (1) Schizoaffective disorder: (2) Unable to care for self: (3) Starvation ketoacidosis: (4) Severe malnutrition: Plan 42-year-old male with PMH of schizoaffective disorder, catatonia who presents after being found minimally responsive and covered in feces on a welfare check. He was brought to the hospital. Found to have starvation ketosis with anion gap metabolic acidosis. Schizoaffective disorder with catatonia Patient was admitted for 5 months from 02/2021 to 06/2021 in psychiatric unit here in the hospital. Had neurology evaluation including MRI brain which was normal. CT head without acute intracranial abnormality, tox screen negative Ongoing incontinence of bladder and bowel and had not been eating and drinking Initial trial of Ativan unsuccessful. Appreciate psych's recs and assistance -Daytrana patch 36 mg transdermal with Ativan on 11/27- pt up and talking to nursing, requested sandwich and also ate dinner. Per nursing also had a 15 minute conversation with his mother. Has since become nonresponsive once more. Consider heat treatment technician options for feeding. Per psych, pt still does not have capacity in spite of progress previously noted. Mother who is emergency guardian, will continue making decisions for pt. Prior hearing to appoint his mother legal guardian until a later hearing to determine if this will be permanent 12/02-Patient ate half of his breakfast however nothing further throughout the day. 12/03 -305 hearing approved. 12/07: Last PPN line and hence nutrition. He ate some of his lunch and some of his dinner on this day. 12/09- pt no responding to provider but is responsive to nursing, re evaluated pt twice with same response. 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 Repeat blood cultures were negative and he remains afebrile Pneumonia and sepsis was ruled out Severe malnutrition Vitamin D deficiency: Received PPN 11/20 -11/27 and one bag on 7/23 Patient continues to have very poor oral intake. See above. May need to explore PEG tube to keep up his caloric intake if pt continues to refuse food or goes back to being nonresponsive Metabolic acidosis : likely due to starvation ketosis. resolved Conjunctivitis, assume bacterial: Resolved, received eyedrops DVT PROPHYLAXIS: SQ Lovenox Dispo -uncertain, patient's temporary guardian [mother] does not want him to be discharged without letting her know, per CM pt does not qualify for inpt psych, need to get patient eating/nutrition and will have to d/c A total of 45 was spent coordinating, documenting, and providing care for this patient excluding time spent in the performance of separately billed services. This included personally viewing all current laboratories and imaging studies, medication reconciliation, outpatient chart review, and discussion with specialists. Admission and Anticipated Discharge Date Admission Date: November 03, 2022 Supervising Physician Co-Signing Physician Notes Patient seen and examined He is awake with eyes open but not responding to questions or following commands. He has not eaten anything today. His RN reported he ate some yesterday for him and will try again later today. If no oral intake by tomorrow, will discuss with patient's decision maker about options for feeding including PEG/PPN/TPN Other plans as detailed by Gaby Chavez PA-C Subjective Pt was seen and examined in room 377-2. Follow up catatonia. Pt would not answer questions or converse with me today. ROS unobtainable. Not responsive to nursing yet today. Review of Systems Review of Systems: All systems reviewed & are unremarkable except as noted in HPI & below Physical Exam Physical Exam: Gen: WD/WN, unkempt facial hair, lying and won't open eyes, NAD HEENT: Normocephalic, atraumatic, mucous membranes moist. Lung: breathing normally Heart: unable to assess Abdomen: flat Extremities: No edema Skin: Warm, moving extremities Results & Data Results & Data Vital Signs (Past 12 Hours) Vital Signs Temp Pulse Resp BP Pulse Ox O2 Del Method 12/10/22 05:44 36.9 C 99 H 18 111/76 95 Room Air Medications Administered Current Inpatient Medications Acetaminophen (Acetaminophen 325 Mg Tab) 650 mg PO Q6H PRN PRN Reason: Fever/Pain Stop: 01/06/23 21:19 Enoxaparin Sodium (Enoxaparin Inj 40 Mg/0.4 Ml Syr) 40 mg SQ QAM [facility] Stop: 12/16/22 12:14 Last Admin: 12/10/22 08:25 Dose: 40 mg Ergocalciferol (Ergocalciferol 50,000 Units 1250 Mcg Cap) 50,000 units PO Q7D@0900 [facility] Stop: 12/24/22 09:01 Last Admin: 12/03/22 08:43 Dose: Not Given Methylphenidate HCl (Methylphenidate 30 Mg Tdsy) 30 mg TD QAM [facility] Stop: 12/24/22 08:59 Last Admin: 12/10/22 08:29 Dose: 30 mg Miscellaneous (Remove Patch) 1 each N/A DAILY@1800 [facility] Stop: 12/25/22 20:59 Last Admin: 12/09/22 18:05 Dose: 1 each Miscellaneous (Check Patch Placement ) 1 each N/A DAILY@1200,1500 [facility] Stop: 12/27/22 11:59 Last Admin: 12/10/22 13:19 Dose: 1 each Miscellaneous Information (Tpn/Ppn Consult Pharmacy) 1 each N/A UD PRN PRN Reason: Consult Stop: 01/02/23 08:59
[2022-12-10] MEDS: ERGOCALCIFEROL 50,000 UNITS 1250 MCG CAP PO SCH (21:34)
[2022-12-11] MEDS: ENOXAPARIN INJ 40 MG/0.4 ML SYR SQ SCH (08:24)
[2022-12-11] MEDS: METHYLPHENIDATE 30 MG TD SCH (09:41)
--- NOTE | 2022-12-11 12:53 | Hospitalist Progress Note ---
Date of Service December 11, 2022 Assessment & Plan (1) Schizoaffective disorder: (2) Unable to care for self: (3) Starvation ketoacidosis: (4) Severe malnutrition: Plan 42-year-old male with PMH of schizoaffective disorder, catatonia who presents after being found minimally responsive and covered in feces on a welfare check. He was brought to the hospital. Found to have starvation ketosis with anion gap metabolic acidosis. Schizoaffective disorder with catatonia Patient was admitted for 5 months from 02/2021 to 06/2021 in psychiatric unit here in the hospital. Had neurology evaluation including MRI brain which was normal. CT head without acute intracranial abnormality, tox screen negative Prolonged hospital stay Was evaluated by Psychiatry Per psych, pt still does not have capacity in spite of progress previously noted. Mother who is emergency guardian, will continue making decisions for pt. Had a prior hearing to appoint his mother legal guardian until a later hearing to determine if this will be permanent 12/02-Patient ate half of his breakfast however nothing further throughout the day. 12/03 -305 hearing approved. 12/07: Last PPN line and hence nutrition. He ate some of his lunch and some of his dinner on this day. 12/09- pt no responding to provider but is responsive to nursing, re evaluated pt twice with same response. 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 Repeat blood cultures were negative and he remains afebrile Pneumonia and sepsis was ruled out Severe malnutrition Vitamin D deficiency: Received PPN 11/20 -11/27 and one bag on 11/30 Patient continues to have very poor oral intake. See above. May need to explore PEG tube to keep up his caloric intake if pt continues to refuse food or goes back to being nonresponsive Metabolic acidosis : likely due to starvation ketosis. resolved Conjunctivitis, assume bacterial: Resolved, received eyedrops DVT PROPHYLAXIS: SQ Lovenox Dispo - CM working on placement in an inpatient psych facility Patient is medically stable for discharge to inpatient psychiatric unit for continuing psych management. I spent a total of 30 minutes coordinating, documenting and providing care for this patient excluding time spent in performance of separately billed services Admission and Anticipated Discharge Date Admission Date: November 03, 2022 Subjective Patient seen and examined Patient is awake, alert. Does not answer questions Per RN, he has been eating and drinking today Physical Exam Constitutional: no acute distress Awake and alert Eyes: PERRL, conjunctivae normal, anicteric sclerae Respiratory: normal respiratory effort, lungs clear to auscultation Cardiovascular: Rate/Rhythm: regular rate and regular rhythm S1 S2 Gastrointestinal (Abdomen): normal bowel sounds, soft, nontender, no hepatosplenomegaly Musculoskeletal: No pedal edema Neurologic: Patient does not participate. Hence limited exam Results & Data Results & Data Vital Signs (Past 12 Hours) Vital Signs Temp Pulse Resp BP Pulse Ox O2 Del Method 12/11/22 07:31 36.6 C 91 H 20 111/78 96 Room Air
[2022-12-12] MEDS: ENOXAPARIN INJ 40 MG/0.4 ML SYR SQ SCH (07:35)
[2022-12-12] MEDS: METHYLPHENIDATE 30 MG TD SCH (07:38)
--- NOTE | 2022-12-12 13:57 | Hospitalist Progress Note ---
Date of Service December 12, 2022 Assessment & Plan (1) Schizoaffective disorder: (2) Unable to care for self: (3) Starvation ketoacidosis: (4) Severe malnutrition: Plan 42-year-old male with PMH of schizoaffective disorder, catatonia who presents after being found minimally responsive and covered in feces on a welfare check. He was brought to the hospital. Found to have starvation ketosis with anion gap metabolic acidosis. Schizoaffective disorder with catatonia Patient was admitted for 5 months from 02/2021 to 06/2021 in psychiatric unit here in the hospital. Had neurology evaluation including MRI brain which was normal. CT head without acute intracranial abnormality, tox screen negative Prolonged hospital stay Was evaluated by Psychiatry Per psych, pt still does not have capacity in spite of progress previously noted. Mother who is emergency guardian, will continue making decisions for pt. Had a prior hearing to appoint his mother legal guardian until a later hearing to determine if this will be permanent 12/02-Patient ate half of his breakfast however nothing further throughout the day. 12/03 -305 hearing approved. 12/07: Last PPN line and hence nutrition. He ate some of his lunch and some of his dinner on this day. 12/09- pt no responding to provider but is responsive to nursing, re evaluated pt twice with same response. His nurse Tato was able to get him to eat a few doritos, cookie, drank some water and 1/2 carton of ice team at 1528 8/2 - Did not eat 8/3 - Per RN he ate and drank / - Not ate yet Poor nutrition. It will be tough to get adequate enteral feed even as he will pull NGT Can consider resuming PPN if he continues to refuse to eat today. Discussed with pharm. May consider PPN if he agrees to IV line Guardian may need to consider PEG. 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 Repeat blood cultures were negative and he remains afebrile Pneumonia and sepsis was ruled out Severe malnutrition Vitamin D deficiency: Received PPN 11/20 -11/27 and one bag on 11/30 Patient continues to have very poor oral intake. See above. May need to explore PEG tube to keep up his caloric intake if pt continues to refuse food or goes back to being nonresponsive Metabolic acidosis :Resolved Conjunctivitis, assume bacterial: Resolved, received eyedrops DVT PROPHYLAXIS: SQ Lovenox Dispo - CM working on placement in an inpatient psych facility Patient is medically stable for discharge to inpatient psychiatric unit for continuing psych management. I spent a total of 30 minutes coordinating, documenting and providing care for this patient excluding time spent in performance of separately billed services Admission and Anticipated Discharge Date Admission Date: November 03, 2022 Subjective Patient seen and examined Patient is awake, alert. Does not answer questions. Hence ROS unobtainable Ate yesterday but refusing to eat so far today Physical Exam Constitutional: no acute distress Eyes: PERRL, conjunctivae normal, anicteric sclerae Respiratory: normal respiratory effort, lungs clear to auscultation Cardiovascular: Rate/Rhythm: regular rate and regular rhythm Gastrointestinal (Abdomen): normal bowel sounds, soft, nontender, no hepatosplenomegaly Musculoskeletal: No pedal edema Neurologic: Awake, alert, does not answer questions. Does not follow commands Results & Data Results & Data Vital Signs (Past 12 Hours) Vital Signs Temp Pulse Resp BP Pulse Ox O2 Del Method 12/12/22 08:00 Room Air 12/12/22 07:15 37.4 C 105 H 16 118/80 95 Room Air
[2022-12-13] MEDS: ENOXAPARIN INJ 40 MG/0.4 ML SYR SQ SCH (07:40)
[2022-12-13] MEDS: METHYLPHENIDATE 30 MG TD SCH (07:42)
[2022-12-13 10:23] LABS: Hematocrit (blood only) 48.1 % (42.0-52.0); Hemoglobin 16.6 g/dl (14.0-18.0); Mean Corpuscular Hemoglobin 30.5 pg (25.0-34.0); Mean Corpuscular Hgb Conc 34.5 g/dL (32.0-36.0); Mean Corpuscular Volume 88.4 fL (80.0-100.0); Mean Platelet Volume 10.9 fL (9.4-12.4); Platelet Count 203 K/uL (130-400); RDW Coefficient of Variation 12.6 % (11.5-14.5); RDW Standard Deviation 40.8 fL (36.4-46.3); Red Blood Count 5.44 M/uL (4.70-6.10); White Blood Count 9.28 K/ul (4.8-10.8)
[2022-12-13 10:31] LABS: BUN Creatinine Ratio 14.1 (10-20); Calcium 9.2 mg/dl (8.6-10.3); Creatinine Clr Calc Pharmacy 142.5 ml/min; Est GFR (Non-African American) 111.3 ml/min; Phosphorus 3.2 mg/dl (2.5-4.9); Potassium 3.9 mmol/L (3.5-5.1)
--- NOTE | 2022-12-13 11:19 | Hospitalist Progress Note ---
Date of Service December 13, 2022 Assessment & Plan (1) Schizoaffective disorder: (2) Unable to care for self: (3) Starvation ketoacidosis: (4) Severe malnutrition: Plan 42-year-old male with PMH of schizoaffective disorder, catatonia who presents after being found minimally responsive and covered in feces on a welfare check. He was brought to the hospital. Found to have starvation ketosis with anion gap metabolic acidosis. Schizoaffective disorder with catatonia Patient was admitted for 5 months from 02/2021 to 06/2021 in psychiatric unit here in the hospital. Had neurology evaluation including MRI brain which was normal. CT head without acute intracranial abnormality, tox screen negative Prolonged hospital stay Was evaluated by Psychiatry Per psych, pt still does not have capacity in spite of progress previously noted. Mother who is emergency guardian, will continue making decisions for pt. Had a prior hearing to appoint his mother legal guardian until a later hearing to determine if this will be permanent 12/02-Patient ate half of his breakfast however nothing further throughout the day. 12/03 -305 hearing approved. 12/07: Last PPN line and hence nutrition. He ate some of his lunch and some of his dinner on this day. 12/09- pt no responding to provider but is responsive to nursing, re evaluated pt twice with same response. His nurse Tato was able to get him to eat a few doritos, cookie, drank some water and 1/2 carton of ice team at 1528 8/2 - Did not eat 8/3 - Per RN he ate and drank 8/4 - Per RN, ate dinner well Poor nutrition. 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 Repeat blood cultures were negative and he remains afebrile Pneumonia and sepsis was ruled out Severe malnutrition Vitamin D deficiency: Received PPN 11/20 -11/27 and one bag on 11/30 Patient continues to have very poor oral intake. See above. May need to explore PEG tube to keep up his caloric intake if pt continues to refuse food Metabolic acidosis Conjunctivitis, assume bacterial: Resolved, received eyedrops DVT PROPHYLAXIS: SQ Lovenox Dispo - CM working on placement in an inpatient psych facility Patient is medically stable for discharge to inpatient psychiatric unit for continuing psych management. I spent a total of 30 minutes coordinating, documenting and providing care for this patient excluding time spent in performance of separately billed services Admission and Anticipated Discharge Date Admission Date: November 03, 2022 Subjective Patient seen and examined Patient is awake, alert. Does not answer questions. Hence ROS unobtainable Per RN, he ate dinner well. Drank some fluids this morning RN reports he pulls at iv Physical Exam Constitutional: no acute distress Eyes: PERRL, conjunctivae normal, anicteric sclerae Respiratory: normal respiratory effort, lungs clear to auscultation Cardiovascular: Rate/Rhythm: regular rate and regular rhythm S1 S2 Gastrointestinal (Abdomen): normal bowel sounds, soft, nontender, no hepatosplenomegaly Musculoskeletal: No pedal edema Neurologic: Awake, alert. Does not answer questions Does not follow commands Results & Data Results & Data Vital Signs (Past 12 Hours) Vital Signs Temp Pulse Resp BP Pulse Ox O2 Del Method 12/13/22 08:00 Room Air 12/13/22 07:58 36.8 C 88 18 121/91 97 Room Air Laboratory Results Abnormal lab results 12/13/22 Range/Units 10:00 Chloride 108 H (98-107) mmol/L Carbon Dioxide 18 L (21-32) mmol/L Glucose 112 H (70-99(Fasting)) mg/dl
[2022-12-14] MEDS: METHYLPHENIDATE 30 MG TD SCH (08:56)
[2022-12-14] MEDS: ENOXAPARIN INJ 40 MG/0.4 ML SYR SQ SCH (08:56)
--- NOTE | 2022-12-14 12:02 | Hospitalist Progress Note ---
Date of Service December 14, 2022 Assessment & Plan (1) Schizoaffective disorder: (2) Unable to care for self: (3) Starvation ketoacidosis: (4) Severe malnutrition: Plan 42-year-old male with PMH of schizoaffective disorder, catatonia who presents after being found minimally responsive and covered in feces on a welfare check. He was brought to the hospital. Found to have starvation ketosis with anion gap metabolic acidosis. Schizoaffective disorder with catatonia Patient was admitted for 5 months from 02/2021 to 06/2021 in psychiatric unit here in the hospital. Had neurology evaluation including MRI brain which was normal. CT head without acute intracranial abnormality, tox screen negative Prolonged hospital stay Was evaluated by Psychiatry Per psych, pt still does not have capacity in spite of progress previously noted. Mother who is emergency guardian, will continue making decisions for pt. Had a prior hearing to appoint his mother legal guardian until a later hearing to determine if this will be permanent 12/02-Patient ate half of his breakfast however nothing further throughout the day. 12/03 -305 hearing approved. 12/07: Last PPN line and hence nutrition. He ate some of his lunch and some of his dinner on this day. 12/09- pt no responding to provider but is responsive to nursing, re evaluated pt twice with same response. His nurse Tato was able to get him to eat a few doritos, cookie, drank some water and 1/2 carton of ice team at 1528 / - Did not eat /3 - Per RN he ate and drank / - Per RN, ate dinner well 12/13 - Declined food but drank some Poor nutrition. 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 Repeat blood cultures were negative and he remains afebrile Pneumonia and sepsis was ruled out Severe malnutrition Vitamin D deficiency: Received PPN 11/20 -11/27 and one bag on 11/30 Patient continues to have very poor oral intake. See above. May need to explore PEG tube to keep up his caloric intake if pt continues to refuse food Metabolic acidosis Conjunctivitis, assume bacterial: Resolved, received eyedrops DVT PROPHYLAXIS: SQ Lovenox Dispo - CM working on placement in an inpatient psych facility Call to update mother today was unanswered. Will attempt again later I spent a total of 30 minutes coordinating, documenting and providing care for this patient excluding time spent in performance of separately billed services Admission and Anticipated Discharge Date Admission Date: November 03, 2022 Subjective Patient seen this morning Sitting in chair Refusing to answer questions He declines exam today and was spitting at me whenever I came close to examine him Declined his breakfast today per RN Physical Exam Physical Exam: Limited exam as above Constitutional: no acute distress Awake, alert, Sitting in chair Moves his extremities Does not answer questions or follow commands Results & Data Results & Data Vital Signs (Past 12 Hours) Vital Signs Temp Pulse Resp BP Pulse Ox O2 Del Method 12/14/22 09:04 Room Air 12/14/22 07:45 36.9 C 106 H 18 103/76 96 Room Air
[2022-12-15] MEDS: METHYLPHENIDATE 30 MG TD SCH (08:32)
[2022-12-15] MEDS: ENOXAPARIN INJ 40 MG/0.4 ML SYR SQ SCH (08:33)
[2022-12-15 09:23] LABS: Hematocrit (blood only) 49.3 % (42.0-52.0); Hemoglobin 17.2 g/dl (14.0-18.0); Mean Corpuscular Hemoglobin 30.6 pg (25.0-34.0); Mean Corpuscular Hgb Conc 34.9 g/dL (32.0-36.0); Mean Corpuscular Volume 87.6 fL (80.0-100.0); Mean Platelet Volume 11.4 fL (9.4-12.4); Platelet Count 242 K/uL (130-400); RDW Coefficient of Variation 12.4 % (11.5-14.5); RDW Standard Deviation 39.7 fL (36.4-46.3); Red Blood Count 5.63 M/uL (4.70-6.10); White Blood Count 11.35 K/ul (4.8-10.8)
[2022-12-15 09:36] LABS: Albumin Globulin Ratio 1.5 (0.9-2); Bilirubin,Total 0.8 mg/dl (0.2-1.0); Calcium 9.3 mg/dl (8.6-10.3); Creatinine Clr Calc Pharmacy 135.8 ml/min; Est GFR (African American) 127.1 ml/min; Est GFR (Non-African American) 109.6 ml/min; Globulin 2.6 gm/dl (2.5-4.0); Potassium 3.8 mmol/L (3.5-5.1); Total Protein 6.6 gm/dl (6.0-8.3)
[2022-12-15 10:50] LABS: Appearance Urine Clear (Clear); Bacteria Urine Automated Negative (Negative); Blood Urine Negative (Negative); Color Urine Dark Yellow; Glucose Urine UA Negative (Negative); Ketones Urine 3+ (Negative); Leukocyte Esterase Urine Negative (Negative); Nitrite Urine Positive (Negative); Protein Urine 1+ (Negative); RBC Urine Automated 0-4 /hpf (0-4); Specific Gravity Urine 1.039 (1.000-1.030); Urobilinogen Urine Negative (Negative)
[2022-12-15 10:51] LABS: Bilirubin Urine 2+ (Negative)
--- NOTE | 2022-12-15 11:43 | Hospitalist Progress Note ---
Date of Service December 15, 2022 Assessment & Plan (1) Schizoaffective disorder: (2) Unable to care for self: (3) Starvation ketoacidosis: (4) Severe malnutrition: Plan 42-year-old male with PMH of schizoaffective disorder, catatonia who presents after being found minimally responsive and covered in feces on a welfare check. He was brought to the hospital. Found to have starvation ketosis with anion gap metabolic acidosis. Schizoaffective disorder with catatonia Patient was admitted for 5 months from 02/2021 to 06/2021 in psychiatric unit here in the hospital. Had neurology evaluation including MRI brain which was normal. CT head without acute intracranial abnormality, tox screen negative Prolonged hospital stay Was evaluated by Psychiatry Per psych, pt still does not have capacity in spite of progress previously noted. Mother who is emergency guardian, will continue making decisions for pt. Had a prior hearing to appoint his mother legal guardian until a later hearing to determine if this will be permanent 12/02-Patient ate half of his breakfast however nothing further throughout the day. 12/03 -305 hearing approved. 12/07: Last PPN line and hence nutrition. He ate some of his lunch and some of his dinner on this day. 12/09- pt no responding to provider but is responsive to nursing, re evaluated pt twice with same response. His nurse Tato was able to get him to eat a few doritos, cookie, drank some water and 1/2 carton of ice team at 1528 8/2 - Did not eat 8/3 - Per RN he ate and drank /4 - Per RN, ate dinner well 12/13 - Declined food but drank some / - Drinks some. Not much eating Poor nutrition. 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 Repeat blood cultures were negative and he remains afebrile Pneumonia and sepsis was ruled out Discussed with Dr Garces today. She reported patient has been trialed on almost all meds without response and has nothing to offer at this time She recommends ok to continue daytrana if he eats but if goes days without eating, then daytrana should be stopped to avoid cardiac risks Severe malnutrition Vitamin D deficiency: Received PPN 11/20 -11/27 and one bag on 11/30 Patient continues to have very poor oral intake. See above. May need to explore PEG tube to keep up his caloric intake if pt continues to refuse food Metabolic acidosis DVT PROPHYLAXIS: SQ [place] Dispo - CM working on placement in an inpatient psych facility Call to mother again today but was unanswered. Will attempt again later I spent a total of 30 minutes coordinating, documenting and providing care for this patient excluding time spent in performance of separately billed services Admission and Anticipated Discharge Date Admission Date: November 03, 2022 Subjective Patient seen and examined Awake, alert, not answering questions Had urinary retention yesterday but later voided last night per RN Physical Exam Constitutional: no acute distress Eyes: PERRL, conjunctivae normal, anicteric sclerae Respiratory: normal respiratory effort, lungs clear to auscultation Cardiovascular: Rate/Rhythm: regular rate and regular rhythm S1 S2 Gastrointestinal (Abdomen): normal bowel sounds, soft, nontender, no hepatosplenomegaly Musculoskeletal: No pedal edema Neurologic: Occasionally uncooperative. Awake and alert. Not answering questions Results & Data Results & Data Vital Signs (Past 12 Hours) Vital Signs Temp Pulse Resp BP Pulse Ox O2 Del Method 12/15/22 08:39 Room Air 12/15/22 07:53 37.1 C 106 H 20 92/69 L 96 Room Air Laboratory Results Abnormal lab results 12/15/22 12/15/22 12/15/22 Range/Units 08:56 08:56 10:30 WBC 11.35 H (4.8-10.8) K/ul Chloride 109 H (98-107) mmol/L Carbon Dioxide 16 L (21-32) mmol/L Anion Gap 14 H (3-11) Ur Specific [place] 1.039 H (1.000-1.030) Urine Protein 1+ H (Negative) Urine Ketones 3+ H (Negative) Urine Nitrite Positive A (Negative) Urine Bilirubin 2+ H (Negative) Urine WBC (Auto) 5-10 H (0-5) /hpf U Hyaline Cast (Auto) 10-30 H (0-5) /lpf U Epithel Cells (Auto) 5-10 H (0-5) /lpf
[2022-12-15] MEDS: PLASMA-LYTE A 1,000 ML IV SCH (18:18)
[2022-12-16] MEDS: PLASMA-LYTE A 1,000 ML IV SCH (05:48)
[2022-12-16 08:44] LABS: Hematocrit (blood only) 45.1 % (42.0-52.0); Hemoglobin 15.6 g/dl (14.0-18.0); Mean Corpuscular Hemoglobin 30.8 pg (25.0-34.0); Mean Corpuscular Hgb Conc 34.6 g/dL (32.0-36.0); Mean Platelet Volume 11.5 fL (9.4-12.4); Platelet Count 218 K/uL (130-400); RDW Coefficient of Variation 12.6 % (11.5-14.5); RDW Standard Deviation 40.7 fL (36.4-46.3); Red Blood Count 5.07 M/uL (4.70-6.10); White Blood Count 9.98 K/ul (4.8-10.8)
[2022-12-16 09:05] LABS: BUN Creatinine Ratio 14.5 (10-20); Creatinine Clr Calc Pharmacy 132.6 ml/min; Est GFR (African American) 125.8 ml/min; Est GFR (Non-African American) 108.5 ml/min; Magnesium 1.9 mg/dl (1.7-2.4); Phosphorus 2.9 mg/dl (2.5-4.9); Potassium 3.4 mmol/L (3.5-5.1)
[2022-12-16] MEDS: METHYLPHENIDATE 30 MG TD SCH (10:02)
[2022-12-16] MEDS: ENOXAPARIN INJ 40 MG/0.4 ML SYR SQ SCH (10:02)
[2022-12-16] MEDS ORDERED: TPN/PPN CONSULT PHARMACY PRN (11:14)
[2022-12-16] MEDS: POTASSIUM CHLORIDE / WTR 10 MEQ/100 ML PLCT IV SCH ×4 (11:41→14:53)
--- NOTE | 2022-12-16 13:46 | Pharmacy Report ---
PHA: Parenteral Nutrition Con - Date of Service December 16, 2022 - Scope Pharmacy was re-consulted on 12/16/22 to manage parenteral nutrition orders for this patient. - Subjective The patient is currently on day 1 of peripheral parenteral nutrition for prolonged poor PO intake (refusal to eat meals). - Objective Height: 5 ft 10 in Weight: 95.7 kg Intake & Output (24hrs):: Intake & Output 12/14/22 12/15/22 12/16/22 12/17/22 06:59 06:59 06:59 06:59 Intake Total 0 / 0 120 / 120 1062.5 / 1062.5 90 / 90 Output Total 500 / 500 426 / 426 225 / 225 325 / 325 Balance -500 / -500 -306 / -306 837.5 / 837.5 -235 / -235 Weight 92.6 kg 95.7 kg Laboratory Data (Last 24 Hr):: 12/16/22 08:21 Sodium 140 Potassium 3.4 L Chloride 108 H Carbon Dioxide 21 BUN 12 Creatinine 0.83 Glucose 87 Calcium 9.0 Phosphorus 2.9 Magnesium 1.9 Nutrition Assessment:: Please refer to the Notes section of the EMR for the most recent stud driver note. - Assessment * NH is a 42 year old male who was receiving peripheral parenteral nutrition earlier this admission due to poor PO intake * PPN was discontinued on 12/03 due to patient self-removal of IV line * Patient underwent ultrasound-guided peripheral line placement yesterday and is now agreeable to PPN * Discussed with dietary, macronutrient recs provided and appreciated (holding lipids today) * Potassium of 3.4 mmol/L this morning -> discussed with hospitalist. Repleted with 40 mEq IV KCl. * Chloride high at 108 mmol/l - will favor acetate>chloride - Plan For day 1 of PN administration, the following will be ordered: Macronutrients Amino acids 85 grams/day Dextrose 100 grams/day Micronutrients Combined electrolytes 20 mL - contains 35 mEq Na, 20 meq K, 4.5 mEq Ca, 5 mEq Mg, 35 mEq Cl, 29.5 mEq acetate per 20 mL Sodium acetate 130 mEq Potassium phosphate 21 mMol Potassium acetate 50 mEq Multivitamins 10 mL Trace Elements 1 mL Additional additives: thiamine 100 mg, folic acid 1 mg Total volume 2129 mL to be infused over 24 hrs will provide 680 kcal/day Final osmolarity 886 mOsm/L (maximum for PPN is 900 mOsm/L) Labs, as indicated, will be ordered per protocol Pharmacy will continue to follow and adjust parenteral nutrition orders on a daily basis. Thank you for allowing us to participate in the care of this patient.
--- NOTE | 2022-12-16 15:55 | Hospitalist Progress Note ---
Date of Service December 16, 2022 Assessment & Plan (1) Schizoaffective disorder: (2) Unable to care for self: (3) Starvation ketoacidosis: (4) Severe malnutrition: Plan 42-year-old male with PMH of schizoaffective disorder, catatonia who presents after being found minimally responsive and covered in feces on a welfare check. He was brought to the hospital. Found to have starvation ketosis with anion gap metabolic acidosis. Schizoaffective disorder with catatonia Patient was admitted for 5 months from 02/2021 to 06/2021 in psychiatric unit here in the hospital. Had neurology evaluation including MRI brain which was normal. CT head without acute intracranial abnormality, tox screen negative Prolonged hospital stay Was evaluated by Psychiatry Per psych, pt still does not have capacity in spite of progress previously noted. Mother who is emergency guardian, will continue making decisions for pt. Had a prior hearing to appoint his mother legal guardian until a later hearing to determine if this will be permanent 12/02-Patient ate half of his breakfast however nothing further throughout the day. 12/03 -305 hearing approved. 12/07: Last PPN line and hence nutrition. He ate some of his lunch and some of his dinner on this day. 12/09- pt no responding to provider but is responsive to nursing, re evaluated pt twice with same response. His nurse Tato was able to get him to eat a few doritos, cookie, drank some water and 1/2 carton of ice team at 1528 12/10 - Did not eat 12/11 - Per RN he ate and drank 12/12 - Per RN, ate dinner well 12/13 - Declined food but drank some 12/14 - Drinks some. 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 Repeat blood cultures were negative and he remains afebrile Pneumonia and sepsis was ruled out On 12/15/22, I discussed with Dr Garces. She reported patient has been trialed on almost all meds without response and has nothing to offer at this time She recommends ok to continue daytrana if he eats but if goes days without eating, then daytrana should be stopped to avoid cardiac risks Daytrana stopped today 12/16/22 Severe malnutrition Vitamin D deficiency: Received PPN 11/20 -11/27 and one bag on 11/30 Patient continues to have very poor oral intake. See above. On 12/15/22, had conversations with Mother and explored intermodal dispatcher plans for nutrition (TPN, PEG, etc) if he continues to refuse to eat by mouth. She wants to discuss PEG possibilities with her . I did explain the risk of patient pulling PEG. Resume PPN today now that patient allowed IV line placed Replete hypokalemia DVT PROPHYLAXIS: SQ Lovenox Dispo - CM working on placement I spent a total of 30 minutes coordinating, documenting and providing care for this patient excluding time spent in performance of separately billed services Admission and Anticipated Discharge Date Admission Date: November 03, 2022 Subjective Patient seen and examined Awake, alert, not answering questions Physical Exam Constitutional: no acute distress Eyes: PERRL, conjunctivae normal, anicteric sclerae Respiratory: normal respiratory effort, lungs clear to auscultation Cardiovascular: Rate/Rhythm: regular rate and regular rhythm S1 S2 Gastrointestinal (Abdomen): normal bowel sounds, soft, nontender, no hepatosplenomegaly Musculoskeletal: No pedal edema Neurologic: Alert. Not answering questions or cooperative with exam Results & Data Results & Data Vital Signs (Past 12 Hours) Vital Signs Temp Pulse Resp BP BP Pulse Ox O2 Del Method 12/16/22 15:40 103 H 128/87 99 Room Air 12/16/22 07:20 Room Air 12/16/22 08:05 36.5 C 85 16 112/82 98 Room Air Laboratory Results Abnormal lab results 12/16/22 Range/Units 08:21 Potassium 3.4 L (3.5-5.1) mmol/L Chloride 108 H (98-107) mmol/L
[2022-12-16] MEDS ORDERED: [UNRECOGNIZED DRUG - OTHER] IV SCH (16:00)
[2022-12-16] MEDS ORDERED: PERIPHERAL TPN IV SCH (16:00)
[2022-12-16] MEDS ORDERED: [UNRECOGNIZED DRUG - REMARK] ONE (16:59)
[2022-12-17 09:10] LABS: BUN Creatinine Ratio 17.9 (10-20); Creatinine Clr Calc Pharmacy 166.7 ml/min; Est GFR (African American) 137.4 ml/min; Est GFR (Non-African American) 118.5 ml/min; Magnesium 1.9 mg/dl (1.7-2.4); Phosphorus 2.8 mg/dl (2.5-4.9); Potassium 3.6 mmol/L (3.5-5.1)
[2022-12-17] MEDS: ERGOCALCIFEROL 50,000 UNITS 1250 MCG CAP PO SCH (09:33)
[2022-12-17] MEDS ORDERED: [UNRECOGNIZED DRUG - OTHER] IV SCH (16:00)
[2022-12-17] MEDS ORDERED: CLINOLIPID 20% IV FAT EMULSION 250 ML IV ONE (16:00)
[2022-12-17] MEDS ORDERED: PERIPHERAL TPN IV SCH (16:00)
--- NOTE | 2022-12-17 17:29 | Hospitalist Progress Note ---
Date of Service December 17, 2022 Assessment & Plan (1) Schizoaffective disorder: (2) Unable to care for self: (3) Starvation ketoacidosis: (4) Severe malnutrition: Plan 42-year-old male with PMH of schizoaffective disorder, catatonia who presents after being found minimally responsive and covered in feces on a welfare check. He was brought to the hospital. Found to have starvation ketosis with anion gap metabolic acidosis. Schizoaffective disorder with catatonia Patient was admitted for 5 months from 02/2021 to 06/2021 in psychiatric unit here in the hospital. Had neurology evaluation including MRI brain which was normal. CT head without acute intracranial abnormality, tox screen negative Prolonged hospital stay Was evaluated by Psychiatry Per psych, pt still does not have capacity in spite of progress previously noted. Mother who is emergency guardian, will continue making decisions for pt. Had a prior hearing to appoint his mother legal guardian until a later hearing to determine if this will be permanent 12/02-Patient ate half of his breakfast however nothing further throughout the day. 12/03 -305 hearing approved. 12/07: Last PPN line and hence nutrition. He ate some of his lunch and some of his dinner on this day. 12/09- pt no responding to provider but is responsive to nursing, re evaluated pt twice with same response. His nurse Tato was able to get him to eat a few doritos, cookie, drank some water and 1/2 carton of ice team at 1528 12/10 - Did not eat /3 - Per RN he ate and drank / - Per RN, ate dinner well 12/13 - Declined food but drank some / - Drinks some. 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 Repeat blood cultures were negative and he remains afebrile Pneumonia and sepsis was ruled out Urine Analysis s/o uti but Cx - no growth, monitor off antibiotic. Per prior attending - On 12/15/22, I discussed with Dr Garces. She reported patient has been trialed on almost all meds without response and has nothing to offer at this time Psych recommends ok to continue daytrana if he eats but if goes days without eating, then daytrana should be stopped to avoid cardiac risks Daytrana stopped 12/16/22 Severe malnutrition Vitamin D deficiency: Received PPN 11/20 -11/27 and one bag on 11/30 Patient continues to have very poor oral intake. See above. Per prior attending - On 12/15/22, had conversations with Mother and explored jail plans for nutrition (TPN, PEG, etc) if he continues to refuse to eat by mouth. She wants to discuss PEG possibilities with her . I did explain the risk of patient pulling PEG. c/w PPN, monitor electrolytes, replete as appropriate. DVT PROPHYLAXIS: SQ Lovenox Dispo - CM working on placement Admission and Anticipated Discharge Date Admission Date: November 03, 2022 Subjective Patient seen and examined Awake, alert, not answering questions Physical Exam Physical Exam: General Appearance :Lying on the bed comfortably.slee ping. Respiratory :normal respirato ry effort, lungs c lear to auscultati on, no wheeze, ral es, rhonchi. No a ccessory muscle us e Cardiovascular: tachycardic rate, regular rhythm, n o murmur, normal p eripheral pulses, no BLE edema. Vess els: no JVD Chest: normal inspectio n of chest Abdomen /GI: normal bowel sounds, soft, non tender, no hepatos plenomegaly Extrem ities/Musculoskele eliz: no cyanosis or clubbing, extre mities motor stren gth 5/5 Neurologic /psych: Does not a nswer any question s Skin: no rashes , normal color, wa rm/dry, excoriated area near groin b ut no open wounds visualized Results & Data Results & Data Vital Signs (Past 12 Hours) Vital Signs Temp Pulse Resp BP BP Pulse Ox O2 Del Method 12/17/22 15:52 37.0 C 102 H 17 149/88 H 98 Room Air 12/17/22 09:38 Room Air 12/17/22 06:28 36.7 C 95 H 16 109/75 98 Room Air
[2022-12-17] MEDS: STOP CLINOLIPID SCH (22:05)
[2022-12-18] MEDS ORDERED: OLANZapine 10 MG/2.1 ML SDV IM STA (05:49)
[2022-12-18 08:40] LABS: BUN Creatinine Ratio 21.3 (10-20); Calcium 8.8 mg/dl (8.6-10.3); Creatinine Clr Calc Pharmacy 185.3 ml/min; Est GFR (African American) 142.8 ml/min; Est GFR (Non-African American) 123.2 ml/min; Magnesium 1.7 mg/dl (1.7-2.4); Phosphorus 2.3 mg/dl (2.5-4.9); Potassium 3.4 mmol/L (3.5-5.1)
[2022-12-18] MEDS ORDERED: POTASSIUM PHOS 3 MMOL/1 ML INFUSION IV STA (08:56)
[2022-12-18] MEDS ORDERED: POTASSIUM PHOSPHATE 21 MMOL in SODIUM CHLORIDE 0.9% 500 ML IV ONE (09:15)
[2022-12-18] MEDS: ENOXAPARIN INJ 40 MG/0.4 ML SYR SQ SCH (09:23)
[2022-12-18] MEDS ORDERED: LORazepam 2 MG/1 ML VIAL IV ONE (12:09)
[2022-12-18] MEDS ORDERED: [UNRECOGNIZED DRUG - OTHER] IV SCH (16:00)
[2022-12-18] MEDS ORDERED: PERIPHERAL TPN IV SCH (16:00)
[2022-12-18] MEDS ORDERED: CLINOLIPID 20% IV FAT EMULSION 250 ML IV ONE (16:00)
--- NOTE | 2022-12-18 17:01 | Hospitalist Progress Note ---
Date of Service December 18, 2022 Assessment & Plan (1) Schizoaffective disorder: (2) Unable to care for self: (3) Starvation ketoacidosis: (4) Severe malnutrition: Plan 42-year-old male with PMH of schizoaffective disorder, catatonia who presents after being found minimally responsive and covered in feces on a welfare check. He was brought to the hospital. Found to have starvation ketosis with anion gap metabolic acidosis. Schizoaffective disorder with catatonia Patient was admitted for 5 months from 02/2021 to 06/2021 in psychiatric unit here in the hospital. Had neurology evaluation including MRI brain which was normal. CT head without acute intracranial abnormality, tox screen negative Prolonged hospital stay Was evaluated by Psychiatry Per psych, pt still does not have capacity in spite of progress previously noted. Mother who is emergency guardian, will continue making decisions for pt. Had a prior hearing to appoint his mother legal guardian until a later hearing to determine if this will be permanent 12/02-Patient ate half of his breakfast however nothing further throughout the day. 12/03 -305 hearing approved. 12/07: Last PPN line and hence nutrition. He ate some of his lunch and some of his dinner on this day. 12/09- pt no responding to provider but is responsive to nursing, re evaluated pt twice with same response. His nurse Tato was able to get him to eat a few doritos, cookie, drank some water and 1/2 carton of ice team at 1528 12/10 - Did not eat 12/11 - Per RN he ate and drank 12/12 - Per RN, ate dinner well 12/13 - Declined food but drank some 12/14 - Drinks some. Not much eating 12/15 - Not eating 12/17 - per RN no po intake 12/18- only sips of coke on 12/17, no intake today. 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 Repeat blood cultures were negative and he remains afebrile Pneumonia and sepsis was ruled out Urine Analysis s/o uti but Cx - no growth, monitor off antibiotic. Per prior attending - On 12/15/22, I discussed with Dr Garces. She reported patient has been trialed on almost all meds without response and has nothing to offer at this time Psych recommends ok to continue daytrana if he eats but if goes days without eating, then daytrana should be stopped to avoid cardiac risks Daytrana stopped 12/16/22 Severe malnutrition Vitamin D deficiency: Received PPN 11/20 -11/27 and one bag on 11/30 Patient continues to have very poor oral intake. See above. Per prior attending - On 12/15/22, had conversations with Mother and explored group home plans for nutrition (TPN, PEG, etc) if he continues to refuse to eat by mouth. She wants to discuss PEG possibilities with her . I did explain the risk of patient pulling PEG. c/w PPN, monitor electrolytes, replete as appropriate. DVT PROPHYLAXIS: SQ Lovenox Dispo - CM working on placement Pt continues to remain noncommunicative/not cooperative for his own care. Admission and Anticipated Discharge Date Admission Date: November 03, 2022 Subjective Patient seen and examined Awake, alert, not answering questions Physical Exam Physical Exam: General Appearance :Lying on the bed comfortably.slee ping. Respiratory :normal respirato ry effort, lungs c lear to auscultati on, no wheeze, ral es, rhonchi. No a ccessory muscle us e Cardiovascular: tachycardic rate, regular rhythm, n o murmur, normal p eripheral pulses, no BLE edema. Vess els: no JVD Chest: normal inspectio n of chest Abdomen /GI: normal bowel sounds, soft, non tender, no hepatos plenomegaly Extrem ities/Musculoskele eliz: no cyanosis or clubbing, extre mities motor stren gt 5/5 Neurologic /psych: Does not a nswer any question s Skin: no rashes , normal color, wa rm/dry, excoriated area near groin b ut no open wounds visualized Results & Data Results & Data Vital Signs (Past 12 Hours) Vital Signs Temp Pulse Pulse Resp BP Pulse Ox O2 Del Method 12/18/22 15:25 37.4 C 87 16 120/81 99 Room Air 12/18/22 08:59 Room Air 12/18/22 07:27 37.2 C 80 18 121/79 100 Room Air
[2022-12-18] MEDS: STOP CLINOLIPID SCH (22:42)
[2022-12-19 08:43] LABS: Calcium 8.7 mg/dl (8.6-10.3); Creatinine Clr Calc Pharmacy 173.9 ml/min; Est GFR (African American) 139.1 ml/min; Magnesium 1.8 mg/dl (1.7-2.4); Phosphorus 3.5 mg/dl (2.5-4.9); Potassium 3.9 mmol/L (3.5-5.1)
[2022-12-19] MEDS: ENOXAPARIN INJ 40 MG/0.4 ML SYR SQ SCH (09:40)
--- NOTE | 2022-12-19 15:41 | Hospitalist Progress Note ---
Date of Service December 19, 2022 Assessment & Plan (1) Schizoaffective disorder: (2) Unable to care for self: (3) Starvation ketoacidosis: (4) Severe malnutrition: Plan 42-year-old male with PMH of schizoaffective disorder, catatonia who presents after being found minimally responsive and covered in feces on a welfare check. He was brought to the hospital. Found to have starvation ketosis with anion gap metabolic acidosis. Schizoaffective disorder with catatonia Patient was admitted for 5 months from 02/2021 to 06/2021 in psychiatric unit here in the hospital. Had neurology evaluation including MRI brain which was normal. CT head without acute intracranial abnormality, tox screen negative Prolonged hospital stay Was evaluated by Psychiatry Per psych, pt still does not have capacity in spite of progress previously noted. Mother who is emergency guardian, will continue making decisions for pt. Had a prior hearing to appoint his mother legal guardian until a later hearing to determine if this will be permanent 12/02-Patient ate half of his breakfast however nothing further throughout the day. 12/03 -305 hearing approved. 12/07: Last PPN line and hence nutrition. He ate some of his lunch and some of his dinner on this day. 12/09- pt no responding to provider but is responsive to nursing, re evaluated pt twice with same response. His nurse Tato was able to get him to eat a few doritos, cookie, drank some water and 1/2 carton of ice team at 1528 12/10 - Did not eat 12/11 - Per RN he ate and drank 12/12 - Per RN, ate dinner well 12/13 - Declined food but drank some 12/14 - Drinks some. Not much eating 12/15 - Not eating 12/17 - per RN no po intake 12/18- only sips of coke on 12/17, no intake today. 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 Repeat blood cultures were negative and he remains afebrile Pneumonia and sepsis was ruled out Urine Analysis s/o uti but Cx - no growth, monitor off antibiotic. Per prior attending - On 12/15/22, I discussed with Dr Garces. She reported patient has been trialed on almost all meds without response and has nothing to offer at this time Psych recommends ok to continue daytrana if he eats but if goes days without eating, then daytrana should be stopped to avoid cardiac risks Daytrana stopped 12/16/22 Severe malnutrition Vitamin D deficiency: Received PPN 11/20 -11/27 and one bag on 11/30 Patient continues to have very poor oral intake. See above. Per prior attending - On 12/15/22, had conversations with Mother and explored fci plans for nutrition (TPN, PEG, etc) if he continues to refuse to eat by mouth. She wants to discuss PEG possibilities with her . I did explain the risk of patient pulling PEG. c/w PPN, monitor electrolytes, replete as appropriate. DVT PROPHYLAXIS: SQ Lovenox Dispo - Uncertain Pt continues to remain noncommunicative/not cooperative for his own care. Admission and Anticipated Discharge Date Admission Date: November 03, 2022 Subjective Patient seen and examined Awake, alert, not answering questions Physical Exam Physical Exam: General Appearance :Lying on the bed comfortably.slee ping. Respiratory :normal respirato ry effort, lungs c lear to auscultati on, no wheeze, ral es, rhonchi. No a ccessory muscle us e Cardiovascular: tachycardic rate, regular rhythm, n o murmur, normal p eripheral pulses, no BLE edema. Vess els: no JVD Chest: normal inspectio n of chest Abdomen /GI: normal bowel sounds, soft, non tender, no hepatos plenomegaly Extrem ities/Musculoskele eliz: no cyanosis or clubbing, extre mities motor stren gth 5/5 Neurologic /psych: Does not a nswer any question s Skin: no rashes , normal color, wa rm/dry, excoriated area near groin b ut no open wounds visualized Results & Data Results & Data Vital Signs (Past 12 Hours) Vital Signs Temp Pulse Resp BP BP Pulse Ox O2 Del Method 12/19/22 14:52 37.1 C 88 16 115/80 95 Room Air 12/19/22 07:01 36.7 C 88 16 114/79 95 Room Air
[2022-12-19] MEDS ORDERED: PERIPHERAL TPN IV SCH (16:00)
[2022-12-19] MEDS ORDERED: CLINOLIPID 20% IV FAT EMULSION 250 ML IV ONE (16:00)
[2022-12-19] MEDS ORDERED: [UNRECOGNIZED DRUG - OTHER] IV SCH (16:00)
[2022-12-19] MEDS: STOP CLINOLIPID SCH (22:35)
[2022-12-20 06:30] LABS: BUN Creatinine Ratio 16.7 (10-20); Calcium 8.9 mg/dl (8.6-10.3); Creatinine Clr Calc Pharmacy 171.3 ml/min; Est GFR (African American) 138.2 ml/min; Est GFR (Non-African American) 119.3 ml/min; Phosphorus 3.2 mg/dl (2.5-4.9); Potassium 4.2 mmol/L (3.5-5.1)
[2022-12-20] MEDS: ENOXAPARIN INJ 40 MG/0.4 ML SYR SQ SCH (08:50)
--- NOTE | 2022-12-20 12:08 | Psychiatric Progress Note ---
Date of Service December 20, 2022 Impression / Recommendations Impression no change--requiring nutritional and toileting support (1) MDD (major depressive disorder), recurrent episode, severe: Plan if patient does meet criteria per hospitalist for PEG would advocate for ketamine anesthesia if possible given evidence base for treatment refractory depression. Interval History Identifying Information David Diaz is a 42 yo man with a history of schizoaffective disorder admitted medically for severe decompensation with malnutrition, sepsis and metabolic acid osis. Currently on a 305 commitment. Chief Complaint patient will not verbalize a chief complaint Subjective Subjective Patient was seen & assessed and interval progress reviewed with nursing. Interim progress reviewed in anticipation of interagency team meeting on 12/23/22 at 1 pm given failure to progress and complexities of placement. Daytrana was discontinued due to lack of benefit. Patient has since required straight cath and feley insertion as remains in bed and not expressing toileting needs. TPN is currently infusing. Patient will grimace and is clearly awake but won't communicate, everts gaze. Dr. Garces reported updating mother on 12/18/22 and got permission for additional records from [facility] and outpatient therapist which were reviewed this am. Although there is some suggestion that he does better while on Wellbutrin, there is no consistent evidence that taking other medications consistently, historically complains about side effects so that doses will be lowered. Lamictal appears to have been discontinued due to cognitive side effects and unclear if he took Haldol following his inpatient psychiatry stay at the [facility]. Suspect he agreed to take medication to avoid State hospitalization. Reportedly his phone conversations with mother while here at [facility] have been reality based (she had expressed concerns about expansive mood prior to admission which may have been related to taking antidepressant alone.) dx and cooperation have varied in appointments, other medications listed in [facility] recrods include Vraylar, Lybalvi, Latuda, etc. Physical Exam Psychiatric alert, evertx gaze, clenches teeth voluntarily rather than talk Vital Signs (Past 24 Hours) Last Vital Signs Temp 36.3 C L 12/20/22 06:57 Pulse 83 12/20/22 06:57 Resp 16 12/20/22 06:57 BP 118/79 12/20/22 06:57 Pulse Ox 96 12/20/22 06:57 O2 Del Method Room Air 12/20/22 07:49 Results & Data ([facility]) Laboratory Results Laboratory Results - last 24 hr 12/19/22 12/19/22 12/20/22 12:03 18:23 05:27 Sodium 138 Potassium 4.2 Chloride 108 H Carbon Dioxide 24 Anion Gap 6 BUN 11 Creatinine 0.66 Est Cr Clr Drug Dosing 171.3 Est GFR ( Amer) 138.2 Est GFR (Non-Af Amer) 119.3 BUN/Creatinine Ratio 16.7 Glucose 109 H POC Glucose 99 86 Calcium 8.9 Phosphorus 3.2 Magnesium 2.0 Current Inpatient Medications Current Inpatient Medications: Current Inpatient Medications Acetaminophen (Acetaminophen 325 Mg Tab) 650 mg PO Q6H PRN PRN Reason: Fever/Pain Stop: 01/06/23 21:19 Enoxaparin Sodium (Enoxaparin Inj 40 Mg/0.4 Ml Syr) 40 mg SQ QAM [facility] Stop: 01/17/23 08:59 Last Admin: 12/20/22 08:50 Dose: 40 mg Ergocalciferol (Ergocalciferol 50,000 Units 1250 Mcg Cap) 50,000 units PO Q7D@0900 [facility] Stop: 12/24/22 09:01 Last Admin: 12/17/22 09:33 Dose: Not Given Amino Acids 2,126 ml/ (Nutrition (Parenteral)) 2,126 mls @ 88.6 mls/hr IV .Q24H [facility]; Protocol Stop: 12/20/22 15:59 Last Admin: 12/19/22 16:10 Dose: 88.6 mls/hr Amino Acids 2,111 ml/ (Nutrition (Parenteral)) 2,111 mls @ 88 mls/hr IV .Q24H [facility]; Protocol Stop: 12/21/22 15:59 Fat Emulsion-[place] Oil/Soybean Oil (Clinolipid 20% Iv Fat Emulsion) 250 mls @ 41.67 mls/hr IV .Q6H ONE Stop: 12/20/22 21:59 Miscellaneous (Stop Clinolipid) 1 each N/A DAILY@2200 [facility] Stop: 01/16/23 21:59 Last Admin: 12/19/22 22:35 Dose: 1 each Miscellaneous Information (Tpn/Ppn Consult Pharmacy) 1 each N/A UD PRN PRN Reason: Consult Stop: 01/15/23 11:13
[2022-12-20] MEDS ORDERED: PERIPHERAL TPN IV SCH (16:00)
[2022-12-20] MEDS ORDERED: CLINOLIPID 20% IV FAT EMULSION 250 ML IV ONE (16:00)
[2022-12-20] MEDS ORDERED: [UNRECOGNIZED DRUG - OTHER] IV SCH (16:00)
--- NOTE | 2022-12-20 16:00 | Hospitalist Progress Note ---
Date of Service December 20, 2022 Assessment & Plan (1) Schizoaffective disorder: (2) Unable to care for self: (3) Starvation ketoacidosis: (4) Severe malnutrition: Plan 42-year-old male with PMH of schizoaffective disorder, catatonia who presents after being found minimally responsive and covered in feces on a welfare check. He was brought to the hospital. Found to have starvation ketosis with anion gap metabolic acidosis. Schizoaffective disorder with catatonia Patient was admitted for 5 months from 02/2021 to 06/2021 in psychiatric unit here in the hospital. Had neurology evaluation including MRI brain which was normal. CT head without acute intracranial abnormality, tox screen negative Prolonged hospital stay Was evaluated by Psychiatry Per psych, pt still does not have capacity in spite of progress previously noted. Mother who is emergency guardian, will continue making decisions for pt. Had a prior hearing to appoint his mother legal guardian until a later hearing to determine if this will be permanent 12/02-Patient ate half of his breakfast however nothing further throughout the day. 12/03 -305 hearing approved. 12/07: Last PPN line and hence nutrition. He ate some of his lunch and some of his dinner on this day. 12/09- pt no responding to provider but is responsive to nursing, re evaluated pt twice with same response. His nurse Tato was able to get him to eat a few doritos, cookie, drank some water and 1/2 carton of ice team at 1528 12/10 - Did not eat 12/11 - Per RN he ate and drank 12/12 - Per RN, ate dinner well 12/13 - Declined food but drank some 12/14 - Drinks some. Not much eating 12/15 - Not eating 12/17 - per RN no po intake 12/18- only sips of coke on 12/17, no intake today. 12/19 - no intake today per rn 12/20 - pt drank some orange juice in the morning per RN. 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 Repeat blood cultures were negative and he remains afebrile Pneumonia and sepsis was ruled out Urine Analysis s/o uti but Cx - no growth, monitor off antibiotic. Per prior attending - On 12/15/22, I discussed with Dr Garces. She reported patient has been trialed on almost all meds without response and has nothing to offer at this time Psych recommends ok to continue daytrana if he eats but if goes days without eating, then daytrana should be stopped to avoid cardiac risks Daytrana stopped 12/16/22 Severe malnutrition Vitamin D deficiency: Received PPN 11/20 -11/27 and one bag on 11/30 Patient continues to have very poor oral intake. See above. Per prior attending - On 12/15/22, had conversations with Mother and explored jail plans for nutrition (TPN, PEG, etc) if he continues to refuse to eat by abeba th. She wants to discuss PEG possibilities with her . I did explain the risk of patient pulling PEG. c/w PPN, monitor electrolytes, replete as appropriate. DVT PROPHYLAXIS: SQ Lovenox Dispo - Uncertain Pt continues to remain noncommunicative/not cooperative for his own care. Admission and Anticipated Discharge Date Admission Date: November 03, 2022 Subjective Patient seen and examined Awake, alert, not answering questions Physical Exam Physical Exam: General Appearance :Lying on the bed comfortably.slee ping. Respiratory :normal respirato ry effort, lungs c lear to auscultati on, no wheeze, ral es, rhonchi. No a ccessory muscle us e Cardiovascular: tachycardic rate, regular rhythm, n o murmur, normal p eripheral pulses, no BLE edema. Vess els: no JVD Chest: normal inspectio n of chest Abdomen /GI: normal bowel sounds, soft, non tender, no hepatos plenomegaly Extrem ities/Musculoskele eliz: no cyanosis or clubbing, extre mities motor stren gt 5/5 Neurologic /psych: Does not a nswer any question s Skin: no rashes , normal color, wa rm/dry, excoriated area near groin b ut no open wounds visualized Results & Data Results & Data Vital Signs (Past 12 Hours) Vital Signs Temp Pulse Resp BP Pulse Ox O2 Del Method 12/20/22 14:46 37.2 C 99 H 15 125/86 94 Room Air 12/20/22 07:49 Room Air 12/20/22 06:57 36.3 C L 83 16 118/79 96 Room Air
[2022-12-20] MEDS: STOP CLINOLIPID SCH (22:30)
[2022-12-21 07:43] LABS: Calcium 8.9 mg/dl (8.6-10.3); Carbon Dioxide 24 mmol/L (21-32); Chloride 108 mmol/L (98-107); Creatinine Clr Calc Pharmacy 179.4 ml/min; Est GFR (African American) 140.9 ml/min; Est GFR (Non-African American) 121.5 ml/min; Magnesium 2.3 mg/dl (1.7-2.4); Sodium 137 mmol/L (136-145)
[2022-12-21 08:07] LABS: Anion Gap 7 (3-11); Blood Urea Nitrogen 12 mg/dl (6-23); Glucose 109 mg/dl (70-99(Fasting))
[2022-12-21] MEDS: ENOXAPARIN INJ 40 MG/0.4 ML SYR SQ SCH (08:58)
--- NOTE | 2022-12-21 12:58 | Hospitalist Progress Note ---
Date of Service December 21, 2022 Assessment & Plan (1) Schizoaffective disorder: (2) Unable to care for self: (3) Starvation ketoacidosis: (4) Severe malnutrition: Plan 42-year-old male with PMH of schizoaffective disorder, catatonia who presents after being found minimally responsive and covered in feces on a welfare check. He was brought to the hospital. Found to have starvation ketosis with anion gap metabolic acidosis. Schizoaffective disorder with catatonia Patient was admitted for 5 months from 02/2021 to 06/2021 in psychiatric unit here in the hospital. Had neurology evaluation including MRI brain which was normal. CT head without acute intracranial abnormality, tox screen negative Prolonged hospital stay Was evaluated by Psychiatry Per psych, pt still does not have capacity in spite of progress previously noted. Mother who is emergency guardian, will continue making decisions for pt. Had a prior hearing to appoint his mother legal guardian until a later hearing to determine if this will be permanent 12/02-Patient ate half of his breakfast however nothing further throughout the day. 12/03 -305 hearing approved. 12/07: Last PPN line and hence nutrition. He ate some of his lunch and some of his dinner on this day. 12/09- pt no responding to provider but is responsive to nursing, re evaluated pt twice with same response. His nurse Tato was able to get him to eat a few doritos, cookie, drank some water and 1/2 carton of ice team at 1528 12/10 - Did not eat 12/11 - Per RN he ate and drank 12/12 - Per RN, ate dinner well 12/13 - Declined food but drank some 12/14 - Drinks some. Not much eating 12/15 - Not eating 12/17 - per RN no po intake 12/18- only sips of coke on 12/17, no intake today. 12/19 - no intake today per rn 12/20 - pt drank some orange juice in the morning per RN. 12/21 - no intake today per RN. 2 of 4 blood culture bottles positive and pt started on vancomycin on 11/03 1/4 bottles grew ACTIMIZE ARCHITECT not lugdenensis and 1/4 grew anaerococcus prevoti vancomycin was stopped 11/07 as this was thought to be a contaminant. Repeat blood cultures were negative and he remains afebrile Pneumonia and sepsis was ruled out Urine Analysis s/o uti but Cx - no growth, monitor off antibiotic. Per prior attending - On 12/15/22, I discussed with Dr Garces. She reported patient has been trialed on almost all meds without response and has nothing to offer at this time Psych recommends ok to continue daytrana if he eats but if goes days without eating, then daytrana should be stopped to avoid cardiac risks Daytrana stopped 12/16/22 Severe malnutrition Vitamin D deficiency: Received PPN 11/20 -11/27 and one bag on 11/30 Patient continues to have very poor oral intake. See above. Per prior attending - On 12/15/22, had conversations with Mother and explored terminal clerk plans for nutrition (TPN, PEG, etc) if he continues to refuse to eat by mouth. She wants to discuss PEG possibilities with her . I did explain the risk of patient pulling PEG. c/w PPN, monitor electrolytes, replete as appropriate. DVT PROPHYLAXIS: SQ Lovenox Dispo - Uncertain Pt continues to remain noncommunicative/not cooperative for his own care. Admission and Anticipated Discharge Date Admission Date: November 03, 2022 Subjective Patient seen and examined Awake, alert, not answering questions I have been explaining to patient everyday the need for feeding tube insertion vs PICC line vs himself taking PO. Almost 10 minutes only for explaining the need for them in his condition. Pt has not communicated back to me in this or in any matter. Per RN, he spoke with overnight RN briefly yesterday and then all of a sudden he stopped speaking with the said RN per today's RN. Pt has not eaten anything per RN. Physical Exam Physical Exam: General Appearance :Lying on the bed comfortably.slee ping. Respiratory :normal respirato ry effort, lungs c lear to auscultati on, no wheeze, ral es, rhonchi. No a ccessory muscle us e Cardiovascular: tachycardic rate, regular rhythm, n o murmur, normal p eripheral pulses, no BLE edema. Vess els: no JVD Chest: normal inspectio n of chest Abdomen /GI: normal bowel sounds, soft, non tender, no hepatos plenomegaly Extrem ities/Musculoskele eliz: no cyanosis or clubbing, extre mities motor stren gth 5/5 Neurologic /psych: Does not a nswer any question s Skin: no rashes , normal color, wa rm/dry, excoriated area near groin b ut no open wounds visualized Results & Data Results & Data Vital Signs (Past 12 Hours) Vital Signs Temp Pulse Resp BP Pulse Ox O2 Del Method 12/21/22 07:05 36.7 C 74 16 123/74 98 Room Air
[2022-12-21] MEDS ORDERED: [UNRECOGNIZED DRUG - OTHER] IV SCH (16:00)
[2022-12-21] MEDS ORDERED: CLINOLIPID 20% IV FAT EMULSION 250 ML IV ONE (16:00)
[2022-12-21] MEDS ORDERED: PERIPHERAL TPN IV SCH (16:00)
[2022-12-21] MEDS: STOP CLINOLIPID SCH (22:30)
[2022-12-22 07:16] LABS: Mean Corpuscular Hemoglobin 30.9 pg (25.0-34.0); Mean Corpuscular Hgb Conc 35.6 g/dL (32.0-36.0); Mean Corpuscular Volume 86.9 fL (80.0-100.0); Mean Platelet Volume 12.1 fL (9.4-12.4); Platelet Count 180 K/uL (130-400); RDW Coefficient of Variation 12.2 % (11.5-14.5); RDW Standard Deviation 38.5 fL (36.4-46.3); Red Blood Count 5.18 M/uL (4.70-6.10); White Blood Count 9.53 K/ul (4.8-10.8)
[2022-12-22 07:36] LABS: BUN Creatinine Ratio 18.2 (10-20); Bilirubin,Total 0.6 mg/dl (0.2-1.0); Calcium 9.1 mg/dl (8.6-10.3); Creatinine Clr Calc Pharmacy 171.3 ml/min; Est GFR (African American) 138.2 ml/min; Est GFR (Non-African American) 119.3 ml/min; Phosphorus 3.8 mg/dl (2.5-4.9); Potassium 4.1 mmol/L (3.5-5.1)
[2022-12-22] MEDS: ENOXAPARIN INJ 40 MG/0.4 ML SYR SQ SCH (09:03)
--- NOTE | 2022-12-22 14:10 | Communication Note ---
Date of Service: December 22, [address] Cortez given complexities and ethics of his care in anticipation of team meeting tomorrow. Message was left for mother yesterday am to update on case and also discuss possible indication/support for ketamine, unclear if a treating facility could be identified. Regardless, patient continues to need nutrition and and nursing support. Outpatient therapist updated. LM for psychiatric prescriber at [facility] to provide update.
--- NOTE | 2022-12-22 15:12 | Hospitalist Progress Note ---
Date of Service December 22, 2022 Assessment & Plan (1) Schizoaffective disorder: (2) Unable to care for self: (3) Starvation ketoacidosis: (4) Severe malnutrition: Plan 42-year-old male with PMH of schizoaffective disorder, catatonia who presents after being found minimally responsive and covered in feces on a welfare check. He was brought to the hospital. Found to have starvation ketosis with anion gap metabolic acidosis. Schizoaffective disorder with catatonia Patient was admitted for 5 months from 02/2021 to 06/2021 in psychiatric unit here in the hospital. Had neurology evaluation including MRI brain which was normal. CT head without acute intracranial abnormality, tox screen negative Prolonged hospital stay Was evaluated by Psychiatry Per psych, pt still does not have capacity in spite of progress previously noted. Mother who is emergency guardian, will continue making decisions for pt. Had a prior hearing to appoint his mother legal guardian until a later hearing to determine if this will be permanent 12/02-Patient ate half of his breakfast however nothing further throughout the day. 12/03 -305 hearing approved. 12/07: Last PPN line and hence nutrition. He ate some of his lunch and some of his dinner on this day. 12/09- pt no responding to provider but is responsive to nursing, re evaluated pt twice with same response. His nurse Tato was able to get him to eat a few doritos, cookie, drank some water and 1/2 carton of ice team at 1528 12/10 - Did not eat 12/11 - Per RN he ate and drank 12/12 - Per RN, ate dinner well 12/13 - Declined food but drank some 12/14 - Drinks some. Not much eating 12/15 - Not eating 12/17 - per RN no po intake 12/18- only sips of coke on 12/17, no intake today. 12/19 - no intake today per rn 12/20 - pt drank some orange juice in the morning per RN. 12/21 - no intake today per RN. 12/22 - continued to be nonverbal, no oral intake, PPN continues 2 of 4 blood culture bottles positive and pt started on vancomycin on 11/03 1/[address] JUDGE not lugdenensis and 1/4 grew anaerococcus prevoti vancomycin was stopped 11/07 as this was thought to be a contaminant. Repeat blood cultures were negative and he remains afebrile Pneumonia and sepsis was ruled out Urine Analysis s/o uti but Cx - no growth, monitor off antibiotic. Per prior attending - On 12/15/22, I discussed with Dr Garces. She reported patient has been trialed on almost all meds without response and has nothing to offer at this time Psych recommends ok to continue daytrana if he eats but if goes days without eating, then daytrana should be stopped to avoid cardiac risks Daytrana stopped 12/16/22 Severe malnutrition Vitamin D deficiency: Received PPN 11/20 -11/27 and one bag on 11/30 Patient continues to have very poor oral intake. See above. Per prior attending - On 12/15/22, had conversations with Mother and explored half-way plans for nutrition (TPN, PEG, etc) if he continues to refuse to eat by mouth. She wants to discuss PEG possibilities with her . I did explain the risk of patient pulling PEG. c/w PPN, monitor electrolytes, replete as appropriate. DVT PROPHYLAXIS: SQ Lovenox Dispo - Uncertain. Team meeting planned for 12/23. Admission and Anticipated Discharge Date Admission Date: November 03, 2022 Supervising Physician Co-Signing Physician Notes Patient seen and examined He is awake with eyes open but not responding to questions or following commands. He ate some today per RN, but nothing significant. Interdisciplinary team meeting sara. Other plans as detailed by Kinjal FUENTES Subjective Follow-up for schizoaffective disorder with catatonia. Patient seen and examined. Continues to be non verbal. Offers no complaints, grimacing at times but does not appear to be in any acute distress. Physical Exam Constitutional: WD/WN, vitals as above no acute distress Respiratory: normal respiratory effort, lungs clear to auscultation Cardiovascular: Rate/Rhythm: regular rate and regular rhythm Vessels: marisol l peripheral pulses Extremities: no edema Gastrointestinal (Abdomen): Percussion/Palpation: abdomen soft; abdomen nonte nder Skin: no rashes, warm and dry Psychiatric: Orientation: alert non verbal/mute, grimaces at times Results & Data Results & Data Vital Signs (Past 12 Hours) Vital Signs Temp Pulse Resp BP Pulse Ox O2 Del Method 12/22/22 08:00 Room Air 12/22/22 06:38 36.8 C 101 H 18 133/92 95 Room Air Laboratory Results Short CBC 12/22/22 Range/Units 06:48 WBC 9.53 (4.8-10.8) K/ul Hgb 16.0 (14.0-18.0) g/dl Hct 45.0 (42.0-52.0) % Plt Count 180 (130-400) K/uL BMP 12/22/22 06:48 Sodium 138 Potassium 4.1 Chloride 107 Carbon Dioxide 24 BUN 12 Creatinine 0.66 Glucose 105 H Calcium 9.1 Liver Function 12/22/22 Range/Units 06:48 Total Bilirubin 0.6 (0.2-1.0) mg/dl AST 18 (13-39) U/L Alkaline Phosphatase 85 (34-104) U/L
[2022-12-22] MEDS ORDERED: CLINOLIPID 20% IV FAT EMULSION 250 ML IV ONE (16:00)
[2022-12-22] MEDS ORDERED: [UNRECOGNIZED DRUG - OTHER] IV SCH (16:00)
[2022-12-22] MEDS ORDERED: PERIPHERAL TPN IV SCH (16:00)
[2022-12-22] MEDS: STOP CLINOLIPID SCH (23:21)
[2022-12-23] MEDS: ENOXAPARIN INJ 40 MG/0.4 ML SYR SQ SCH (09:01)
[2022-12-23 10:07] LABS: Calcium 9.1 mg/dl (8.6-10.3); Creatinine Clr Calc Pharmacy 150.7 ml/min; Est GFR (African American) 131.1 ml/min; Est GFR (Non-African American) 113.1 ml/min; Magnesium 1.8 mg/dl (1.7-2.4); Phosphorus 3.2 mg/dl (2.5-4.9); Potassium 3.9 mmol/L (3.5-5.1)
--- NOTE | 2022-12-23 14:45 | Psychiatric Progress Note ---
Date of Service December 23, 2022 Impression / Recommendations Impression no change--requiring nutritional and toileting support-recommend ketamine if able as part of anesthesia for PEG which is best option for longer term nutrition needs. (1) MDD (major depressive disorder), recurrent episode, severe: hx of schizoaffective dx Plan agree with team rec for SNF placement discussed recs re: anesthesia with hospitalist who will be consulting with GI/anesthesia. time spent >45 min, >50% time spent counseling/coordination of care. Interval History Identifying Information David Diaz is a 42 yo man with a history of schizoaffective disorder admitted medically for severe decompensation with malnutrition, sepsis and metabolic acidosis. Currently on a 305 commitment. Chief Complaint unchanged Review of Systems Notes patient unable to complete Subjective Subjective Patient was seen & assessed and interval progress reviewed with treatment team. Participated in multidisciplinary treatment team meeting with sadiq VICTORIA, Dr. Cortez, parents via Zoom. Discussed past response to interventions, ethics/barriers to treatments like ECT and antipsychotics. Family educated why can't just recieve a COPPOLA. Patient has also previously refused Rogelio. Physical Exam Psychiatric patient called out/appeared angry as nursing was repositioning head of bed up for meal but cooperated with blood sugar. He continues to make no eye contact/debra gaze and refuse to verbalize a choice. Vital Signs (Past 24 Hours) Last Vital Signs Temp 36.4 C L 12/23/22 14:35 Pulse 98 H 12/23/22 14:35 Resp 16 12/23/22 14:35 BP 110/70 12/23/22 14:35 Pulse Ox 92 12/23/22 14:35 O2 Del Method Room Air 12/23/22 14:35 Results & Data ([facility]) Laboratory Results Laboratory Results - last 24 hr 12/23/22 12/23/22 12/23/22 09:30 09:39 12:10 Sodium 138 Potassium 3.9 Chloride 109 H Carbon Dioxide 22 Anion Gap 7 BUN 12 Creatinine 0.75 Est Cr Clr Drug Dosing 150.7 Est GFR ( Amer) 131.1 Est GFR (Non-Af Amer) 113.1 BUN/Creatinine Ratio 16.0 Glucose 115 H POC Glucose 103 H 107 H Calcium 9.1 Phosphorus 3.2 Magnesium 1.8 Current Inpatient Medications Current Inpatient Medications: Current Inpatient Medications Acetaminophen (Acetaminophen 325 Mg Tab) 650 mg PO Q6H PRN PRN Reason: Fever/Pain Stop: 01/06/23 21:19 Enoxaparin Sodium (Enoxaparin Inj 40 Mg/0.4 Ml Syr) 40 mg SQ QAM COUNTS INCLUDE 234 BEDS AT THE [facility] Stop: 01/17/23 08:59 Last Admin: 12/23/22 09:01 Dose: 40 mg Ergocalciferol (Ergocalciferol 50,000 Units 1250 Mcg Cap) 50,000 units PO Q7D@0900 COUNTS INCLUDE 234 BEDS AT THE [facility] Stop: 12/24/22 09:01 Last Admin: 12/17/22 09:33 Dose: Not Given Amino Acids 2,133 ml/ (Nutrition (Parenteral)) 2,133 mls @ 89 mls/hr IV .Q23H58 M COUNTS INCLUDE 234 BEDS AT THE [facility]; Protocol Stop: 12/23/22 15:57 Last Admin: 12/22/22 15:50 Dose: 89 mls/hr Amino Acids 2,134 ml/ (Nutrition (Parenteral)) 2,134 mls @ 89 mls/hr IV .[id number] COUNTS INCLUDE 234 BEDS AT THE [facility]; Protocol Stop: 12/24/22 15:58 Fat Emulsion-Dixon Oil/Soybean Oil (Clinolipid 20% Iv Fat Emulsion) 250 mls @ 41.67 mls/hr IV .Q6H ONE Stop: 12/23/22 21:59 Miscellaneous (Stop Clinolipid) 1 each N/A DAILY@2200 COUNTS INCLUDE 234 BEDS AT THE [facility] Stop: 01/16/23 21:59 Last Admin: 12/22/22 23:21 Dose: 1 each Miscellaneous Information (Tpn/Ppn Consult Pharmacy) 1 each N/A UD PRN PRN Reason: Consult Stop: 01/15/23 11:13
--- NOTE | 2022-12-23 15:17 | Hospitalist Progress Note ---
Date of Service December 23, 2022 Assessment & Plan (1) Schizoaffective disorder: (2) Unable to care for self: (3) Starvation ketoacidosis: (4) Severe malnutrition: Plan 42-year-old male with PMH of schizoaffective disorder, catatonia who presents after being found minimally responsive and covered in feces on a welfare check. He was brought to the hospital. Found to have starvation ketosis with anion gap metabolic acidosis. Schizoaffective disorder with catatonia Patient was admitted for 5 months from 02/2021 to 06/2021 in psychiatric unit here in the hospital. Had neurology evaluation including MRI brain which was normal. CT head without acute intracranial abnormality, tox screen negative Prolonged hospital stay Was evaluated by Psychiatry Per psych, pt still does not have capacity in spite of progress previously noted. Mother who is emergency guardian, will continue making decisions for pt. Had a prior hearing to appoint his mother legal guardian until a later hearing to determine if this will be permanent 12/02-Patient ate half of his breakfast however nothing further throughout the day. 12/03 -305 hearing approved. 12/07: Last PPN line and hence nutrition. He ate some of his lunch and some of his dinner on this day. 12/09- pt no responding to provider but is responsive to nursing, re evaluated pt twice with same response. His nurse Tato was able to get him to eat a few doritos, cookie, drank some water and 1/2 carton of ice team at 1528 12/10 - Did not eat 12/11 - Per RN he ate and drank 12/12 - Per RN, ate dinner well 12/13 - Declined food but drank some 12/14 - Drinks some. Not much eating 12/15 - Not eating 12/17 - per RN no po intake 12/18- only sips of coke on 12/17, no intake today. 12/19 - no intake today per rn 12/20 - pt drank some orange juice in the morning per RN. 12/21 - no intake today per RN. 12/22 - continued to be nonverbal, no oral intake, PPN continues 12/23 - no intake, PPN continues, team meeting attending by Dr. Cortez, planning for PEG and SNF placement 2 of 4 blood culture bottles positive and pt started on vancomycin on 11/03 1/4 bottles grew CHIEF ACCOUNTANT not lugdenensis and 1/4 grew anaerococcus prevoti vancomycin was stopped 11/07 as this was thought to be a contaminant. Repeat blood cultures were negative and he remains afebrile Pneumonia and sepsis was ruled out Urine Analysis s/o uti but Cx - no growth, monitor off antibiotic. Per prior attending - On 12/15/22, I discussed with Dr Garces. She reported patient has been trialed on almost all meds without response and has nothing to offer at this time Psych recommends ok to continue daytrana if he eats but if goes days without eating, then daytrana should be stopped to avoid cardiac risks Daytrana stopped 12/16/22 Severe malnutrition Vitamin D deficiency: Received PPN 11/20 -11/27 and one bag on 11/30 Patient continues to have very poor oral intake. See above. Team meeting attended today by Dr. Cortez, planning for PEG c/w PPN, monitor electrolytes, replete as appropriate. [facility] Team meeting today, patient will have PEG placed and plan for SNF Admission and Anticipated Discharge Date Admission Date: November 03, 2022 Supervising Physician Co-Signing Physician Notes Patient seen and examined He is awake with eyes open but not responding to questions or following commands. He ate some today per RN, but nothing significant. Interdisciplinary team meeting was held today, agreement reached for PEG tube placement and possible stent placement tomorrow. GI has been consulted for PEG tube. Other plans as detailed by Kinjal FUENTES Subjective Follow-up for schizoaffective disorder with catatonia. Patient seen and examined. Continues to be non verbal, no oral intake. Does not appear to be in any distress. Physical Exam Constitutional: WD/WN, vitals as above Respiratory: normal respiratory effort, lungs clear to auscultation Cardiovascular: Rate/Rhythm: regular rate and regular rhythm Vessels: normal peripheral pulses Extremities: no edema Gastrointestinal (Abdomen): Percussion/Palpation: abdomen soft; abdomen nontender Skin: no rashes, warm and dry Psychiatric: non verbal, non engaging Results & Data Results & Data Vital Signs (Past 12 Hours) Vital Signs Temp Pulse Resp BP BP Pulse Ox O2 Del Method 12/23/22 14:35 36.4 C L 98 H 16 110/70 92 Room Air 12/23/22 08:14 37.1 C 114 H 18 115/73 96 Room Air Laboratory Results [facility] 12/23/22 09:30 Sodium 138 Potassium 3.9 Chloride 109 H Carbon Dioxide 22 BUN 12 Creatinine 0.75 Glucose 115 H Calcium 9.1
[2022-12-23] MEDS ORDERED: [UNRECOGNIZED DRUG - OTHER] IV SCH (16:00)
[2022-12-23] MEDS ORDERED: CLINOLIPID 20% IV FAT EMULSION 250 ML IV ONE (16:00)
[2022-12-23] MEDS ORDERED: PERIPHERAL TPN IV SCH (16:00)
[2022-12-23] MEDS: STOP CLINOLIPID SCH (23:10)
[2022-12-24 08:19] LABS: BUN Creatinine Ratio 31.9 (10-20); Creatinine Clr Calc Pharmacy 163.8 ml/min; Est GFR (African American) 135.7 ml/min; Est GFR (Non-African American) 117.1 ml/min; Magnesium 1.8 mg/dl (1.7-2.4); Phosphorus 3.2 mg/dl (2.5-4.9); Potassium 4.1 mmol/L (3.5-5.1)
--- NOTE | 2022-12-24 08:52 | Gastrointestinal Consultation ---
Date of Consultation December 24, 2022 Assessment & Plan (1) Schizoaffective disorder, depressive type: (2) Malnutrition due to starvation: Secondary to schizophrenia Plan - Will discuss by phone w steve's mother and verify her willingness to go forward w PEG. - Will plan for EGD w PEG insertion by Dr. Soto this afternoon. - Please keep pt NPO. Though official order for NPO wasn't entered until 9AM, I verified w the pt's nurse that he has not eaten or drank anything since yesterday. - PEG tube will need to be dressed w an abdominal binder. It will be very important that pt not pull the tube out in the first few months of placement - this can cause peritonitis and even (will discuss this risk w his mother) Addendum, I spoke with David's mother and YANDEL Diaz by phone. The conversation was approximately 15 minutes long. She had several questions including exactly how the procedure is done,how long the procedure takes, and what risks are involved. I described the procedure in detail, including risks of adverse events such as problems with anesthesia, accidentally nicking the intestines (though rare), causing bleeding (again rare) and infection. We also talked about the main riskand more common the possibility that he might accidentally or intentionally pulled his PEG tube out before the tract is completely healed in 6 to 8 weeks. I assured her that if from a psych standpoint he improves and is able to eat by mouth that he can eat by mouth with the tube in place and as long it has been at least 2 months that PEG tube can be removed. I described the abdominal binder that we would use as a reminder for t he patient not to touch the PEG tube and to keep him from accidentally pulling on the PEG tube. His mother is struggling with what his true wishes would be. She had never spoken with him about this or other life prolonging measures. She would like some time to make the decision. She states she is not ready to give consent today. She would like at least 1 week. She recently underwent gallbladder surgery herself and had taken longer to recover and had more discomfort than she was led to believe this typical. For this reason she is very worried that he may be uncomfortable with this or more importantly, he may wish not to have the feedings. She cited that he was very against having the NG tube placed. We talked about how that could be because it causes a very uncomfortable reflex. She is unsure whether he could be able to think through the consequences of not having nutrition but thinks that he may be able to and may be making a conscious decision not to continue to nourish himself. She wants to honor his wishes but is not sure what his wishes would be. She and her have planned to come to [place] next week and spend a few days with him. She thinks she will be better able to make the decision for or against PEG tube after spending a few days with him. In light of this, GI will sign off. Please reconsult if PEG needed. Supervising Physician Co-Signing Physician Notes Attg add: Pt wiht psychiatric disease precluding PO intake. Mother, who is POA, is unsure if she wants to proceed with PEG. Please reconsult us if POA decides to proceed. History of Present Illness Reason for Consultation: PEG Requesting Physician: Kinjal Andrews NP Attending Physician: Merari Cortez MD History of Present Illness Mr. David Diaz is a 42 yr old male w schizophrenia with a hx of a very long hospitalization in 2021 for this illness, and having been tried on multiple medications without significant improvement. This hospitalization began in the end of October and was prompted by him being found by social workers laying on his bed in feces, catatonic. Dispite the long hospitalization and exhaustion of the all available psych treatments, he has had only mild improvement and remains unable to care for himself. Records here document that legal processes are in p lace such that his mother is the temporary legal guardian with hearing pending for permanent guardianship. He refuses to eat or eats such small amts that he will not be able to sustain his nutritional needs. A care meeting was held yesterday and it was decided that a PEG then transfer to a termite renewal inspector care facility is his best option for continued care. GI has been asked to place the PEG. There does not seem to be any medical contraindications - no abd surgeries, no electrolyte derangements. He hasn't had CBC, INR recently - so will recheck those today. Though official order for NPO wasn't entered until 9AM, I verified w the pt's nurse that he has not eaten or drank anything since yesterday. Allergies Allergy/AdvReac Type Severity Reaction Status Date / Time No Known Allergies Allergy Verified 11/03/22 17:28 Home Medications Medication Instructions Recorded Confirmed Type benztropine 0.5 mg tablet 0.5 mg PO HS 08/14/22 11/03/22 History haloperidol 5 mg tablet 5 mg PO BID 08/14/22 11/03/22 History lamotrigine 25 mg tablet 50 mg PO BID 08/14/22 11/03/22 History venlafaxine 150 mg 150 mg PO QAM 08/14/22 11/03/22 History capsule,extended release 24 hr Patient History Medical History Anxiety Avolition Bipolar disorder Bipolar disorder with depression Catatonia Depression Mutism Noncompliance Obesity Psychosis Schizoaffective disorder Surgical History No pertinent past surgical history Family History Other Family history unknown Social History Smoking Status: Current some day smoker Preferred Language: Eritrean Communication Ability: Unable Communication Ability Comment: Catatonic like behavior Division Roadmaster Required: No Beliefs That Will Affect Care: None Current Living Situation: Alone Other Information That Helps Us Care for You: No Feels Safe at Home: Declines to Answer Gender Identity: Male Assistive Devices: None Review of Systems Review of Systems: Unable to obtain ROS from patient - not verbal. Physical Exam Constitutional: well developed, well nourished and + ill appearing (chronic psych appearing) Eyes: PERRL, conjunctivae normal, anicteric sclerae ENMT: external ear and nose normal, oropharynx normal Neck: trachea midline, no thyromegaly Respiratory: normal respiratory effort, lungs clear to auscultation Cardiovascular: RRR, no murmur, no edema Gastrointestinal (Abdomen): normal bowel sounds, soft, nontender, no hepatosplenomegaly Skin: pale red rash in splotchy distribution on trunk ? psoriasis Neurologic: moves all extremities (unable to assess, does not follow commands) and awake Speech / Cognition: + abnormal speech (non verbal) Psychiatric: Orientation: alert Eye Contact: + poor eye contact Motor Behavior: + tremor (both legs) does not appear uncomfortble or aggitated. Lymphatic: no cervical or axillary lymphadenopathy Results & Data Vital Signs (Past 12 Hours) Vital Signs Temp Pulse Resp BP BP Pulse Ox O2 Del Method 12/24/22 06:15 37.4 C 96 H 16 113/74 94 Room Air 12/23/22 23:02 37.0 C 108 H 16 122/80 95 Room Air Laboratory Results Most recent CBC 12/22: WBC 9.5, Hb 16, Hct 45, Plts 180, Na 139, K 4.7, Cl 109, CO2 26, BUN 22, Cr 0.6, glucose 113. Diagnostic Findings Head CT 10/30/22: No acute intracranial hemorrhage, no evidence of acute territ orial infarction or other acute intracranial disease process. CXR 10/30/22: 1. No acute cardiopulmonary findings. 2. Mild left basilar opacity, similar to prior study. This favors atelectasis.
[2022-12-24] MEDS: ENOXAPARIN INJ 40 MG/0.4 ML SYR SQ SCH (09:40)
[2022-12-24] MEDS: ERGOCALCIFEROL 50,000 UNITS 1250 MCG CAP PO SCH (09:40)
[2022-12-24 11:17] LABS: Basophils # (auto) 0.07 K/uL (0-0.2); Basophils % (auto) 0.7 %; Hematocrit (blood only) 44.8 % (42.0-52.0); Hemoglobin 15.5 g/dl (14.0-18.0); Immature Granulocytes # (auto) 0.11 K/uL (0.01-0.20); Immature Granulocytes % (auto) 1.1 %; Lymphocytes # (auto) 1.92 K/uL (1.2-3.4); Lymphocytes % (auto) 18.4 %; Mean Corpuscular Hemoglobin 30.8 pg (25.0-34.0); Mean Corpuscular Hgb Conc 34.6 g/dL (32.0-36.0); Mean Corpuscular Volume 89.1 fL (80.0-100.0); Mean Platelet Volume 12.3 fL (9.4-12.4); Monocytes # (auto) 1.06 K/uL (0.11-0.59); Monocytes % (auto) 10.1 %; Neutrophils # (auto) 7.19 K/uL (1.40-6.50); Neutrophils % (auto) 68.7 %; Platelet Count 174 K/uL (130-400); RDW Coefficient of Variation 12.3 % (11.5-14.5); RDW Standard Deviation 39.4 fL (36.4-46.3); Red Blood Count 5.03 M/uL (4.70-6.10); White Blood Count 10.45 K/ul (4.8-10.8)
[2022-12-24 11:47] LABS: INR 1.1 (0.9-1.1); Prothrombin Time 11.5 Seconds (9.0-12.0)
[2022-12-24] MEDS ORDERED: [UNRECOGNIZED DRUG - OTHER] IV SCH (16:00)
[2022-12-24] MEDS ORDERED: PERIPHERAL TPN IV SCH (16:00)
[2022-12-24] MEDS ORDERED: CLINOLIPID 20% IV FAT EMULSION 250 ML IV ONE (16:00)
--- NOTE | 2022-12-24 16:02 | Hospitalist Progress Note ---
Date of Service December 24, 2022 Assessment & Plan (1) Schizoaffective disorder: (2) Unable to care for self: (3) Starvation ketoacidosis: (4) Severe malnutrition: Plan 42-year-old male with PMH of schizoaffective disorder, catatonia who presents after being found minimally responsive and covered in feces on a welfare check. He was brought to the hospital. Found to have starvation ketosis with anion gap metabolic acidosis. Schizoaffective disorder with catatonia Patient was admitted for 5 months from 02/2021 to 06/2021 in psychiatric unit here in the hospital. Had neurology evaluation including MRI brain which was normal. CT head without acute intracranial abnormality, tox screen negative Prolonged hospital stay Was evaluated by Psychiatry Per psych, pt still does not have capacity in spite of progress previously noted. Mother who is emergency guardian, will continue making decisions for pt. Had a prior hearing to appoint his mother legal guardian until a later hearing to determine if this will be permanent 12/02-Patient ate half of his breakfast however nothing further throughout the day. 12/03 -305 hearing approved. 12/07: Last PPN line and hence nutrition. He ate some of his lunch and some of his dinner on this day. 12/09- pt no responding to provider but is responsive to nursing, re evaluated pt twice with same response. His nurse Tato was able to get him to eat a few doritos, cookie, drank some water and 1/2 carton of ice team at 1528 12/10 - Did not eat 12/11 - Per RN he ate and drank 12/12 - Per RN, ate dinner well 12/13 - Declined food but drank some 12/14 - Drinks some. Not much eating 12/15 - Not eating 12/17 - per RN no po intake 12/18- only sips of coke on 12/17, no intake today. 12/19 - no intake today per rn 12/20 - pt drank some orange juice in the morning per RN. 12/21 - no intake today per RN. 12/22 - continued to be nonverbal, no oral intake, PPN continues 12/23 - no intake, PPN continues, interdisciplinary team meeting with patient's legal guardian present - planning for PEG and SNF placement 12/24 - drank 375 mL of orange juice and ate half of grilled cheese and nibbled some cookies. 2 of 4 blood culture bottles positive and pt started on vancomycin on 11/03 1/4 bottles grew TECHNOLOGY SOLUTIONS ARCHITECT not lugdenensis and 1/4 grew anaerococcus prevoti vancomycin was stopped 11/07 as this was thought to be a contaminant. Repeat blood cultures were negative and he remains afebrile Pneumonia and sepsis was ruled out Urine Analysis s/o uti but Cx - no growth, monitor off antibiotic. Per prior attending - On 12/15/22, I discussed with Dr Garces. She reported patient has been trialed on almost all meds without response and has nothing to offer at this time Psych recommends ok to continue daytrana if he eats but if goes days without eating, then daytrana should be stopped to avoid cardiac risks Daytrana stopped 12/16/22 Severe malnutrition Vitamin D deficiency: Received PPN 11/20 -11/27 and one bag on 11/30 Patient continues to have very poor oral intake. See above. Team meeting attended today by Dr. Cortez, planning for PEG c/w PPN, monitor electrolytes, replete as appropriate. DVT PROPHYLAXIS: [facility] Lovenox Dispo - Team meeting today, patient will have PEG placed and plan for SNF Admission and Anticipated Discharge Date Admission Date: November 03, 2022 Subjective Follow-up for schizoaffective disorder with catatonia. Patient seen and examined. Continues to be non verbal, no oral intake. Does not appear to be in any distress. Per RN, he drank 375 mL of orange juice and ate half of grilled cheese and nibbled some cookies today. Physical Exam Physical Exam: General Appearance :Lying on the bed comfortably.slee ping. Respiratory :normal respirato ry effort, lungs c lear to auscultati on, no wheeze, ral es, rhonchi. No a ccessory muscle us e Cardiovascular: tachycardic rate, regular rhythm, n o murmur, normal p eripheral pulses, no BLE edema. Vess els: no JVD Chest: normal inspectio n of chest Abdomen /GI: normal bowel sounds, soft, non tender, no hepatos plenomegaly Extrem ities/Musculoskele eliz: no cyanosis or clubbing, extre mities motor stren [facility] 5/ Neurologic /psych: Does not a nswer any question s Skin: no rashes , normal color, wa rm/dry, excoriated area near groin b ut no open wounds visualized Results & Data Results & Data Vital Signs (Past 12 Hours) Vital Signs Temp Pulse Pulse Resp BP BP Pulse Ox 12/24/22 15:22 36.9 C 99 H 16 115/75 97 12/24/22 11:18 12/24/22 06:15 37.4 C 96 H 16 113/74 94 O2 Del Method 12/24/22 15:22 Room Air 12/24/22 11:18 Room Air 12/24/22 06:15 Room Air
[2022-12-24] MEDS: STOP CLINOLIPID SCH (22:55)
[2022-12-25] MEDS: ENOXAPARIN INJ 40 MG/0.4 ML SYR SQ SCH (07:42)
[2022-12-25 08:52] LABS: Hematocrit (blood only) 46.7 % (42.0-52.0); Hemoglobin 16.1 g/dl (14.0-18.0); Mean Corpuscular Hemoglobin 30.7 pg (25.0-34.0); Mean Corpuscular Hgb Conc 34.5 g/dL (32.0-36.0); Mean Platelet Volume 11.9 fL (9.4-12.4); Platelet Count 184 K/uL (130-400); RDW Coefficient of Variation 12.4 % (11.5-14.5); RDW Standard Deviation 40.7 fL (36.4-46.3); Red Blood Count 5.25 M/uL (4.70-6.10); White Blood Count 14.93 K/ul (4.8-10.8)
[2022-12-25 09:08] LABS: BUN Creatinine Ratio 20.8 (10-20); Est GFR (African American) 133.4 ml/min; Est GFR (Non-African American) 115.1 ml/min; Magnesium 1.7 mg/dl (1.7-2.4)
[2022-12-25] MEDS ORDERED: LORazepam 2 MG/1 ML VIAL IV STA (14:48)
--- NOTE | 2022-12-25 15:47 | Hospitalist Progress Note ---
Date of Service December 25, 2022 Assessment & Plan (1) Schizoaffective disorder: (2) Unable to care for self: (3) Starvation ketoacidosis: (4) Severe malnutrition: Plan 42-year-old male with PMH of schizoaffective disorder, catatonia who presents after being found minimally responsive and covered in feces on a welfare check. He was brought to the hospital. Found to have starvation ketosis with anion gap metabolic acidosis. Schizoaffective disorder with catatonia Patient was admitted for 5 months from 02/2021 to 06/2021 in psychiatric unit here in the hospital. Had neurology evaluation including MRI brain which was normal. CT head without acute intracranial abnormality, tox screen negative Prolonged hospital stay Was evaluated by Psychiatry Per psych, pt still does not have capacity in spite of progress previously noted. Mother who is emergency guardian, will continue making decisions for pt. Had a prior hearing to appoint his mother legal guardian until a later hearing to determine if this will be permanent 12/02-Patient ate half of his breakfast however nothing further throughout the day. 12/03 -305 hearing approved. 12/07: Last PPN line and hence nutrition. He ate some of his lunch and some of his dinner on this day. 12/09- pt no responding to provider but is responsive to nursing, re evaluated pt twice with same response. His nurse Tato was able to get him to eat a few doritos, cookie, drank some water and 1/2 carton of ice team at 1528 12/10 - Did not eat 12/11 - Per RN he ate and drank 12/12 - Per RN, ate dinner well 12/13 - Declined food but drank some 12/14 - Drinks some. Not much eating 12/15 - Not eating 12/17 - per RN no po intake 12/18- only sips of coke on 12/17, no intake today. 12/19 - no intake today per rn 12/20 - pt drank some orange juice in the morning per RN. 12/21 - no intake today per RN. 12/22 - continued to be nonverbal, no oral intake, PPN continues 12/23 - no intake, PPN continues, interdisciplinary team meeting with patient's legal guardian present - planning for PEG and SNF placement 12/24 - drank 375 mL of orange juice and ate half of grilled cheese and nibbled some cookies. 12/25 - couple of bite of cookie, most of his fruit, 150 ml of coke. 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 Repeat blood cultures were negative and he remains afebrile Pneumonia and sepsis was ruled out Urine Analysis s/o uti but Cx - no growth, monitor off antibiotic. Per prior attending - On 12/15/22, I discussed with Dr Garces. She reported p atient has been trialed on almost all meds without response and has nothing to offer at this time Psych recommends ok to continue daytrana if he eats but if goes days without eating, then daytrana should be stopped to avoid cardiac risks Daytrana stopped 12/16/22 Severe malnutrition Vitamin D deficiency: Received PPN 11/20 -11/27 and one bag on 11/30 Patient continues to have very poor oral intake. See above. Team meeting attended today by Dr. Cortez, planning for PEG c/w PPN, monitor electrolytes, replete as appropriate. Mild temP: noted overnight, will get infxn w/u. EKG done w/ sinus tach, likely anxiety, given small dose of ativan w/ improvement. DVT PROPHYLAXIS: SQ Lovenox Dispo - Patient will have PEG placed once patient's legal guardian decides on this and plan for SNF Admission and Anticipated Discharge Date Admission Date: November 03, 2022 Subjective Follow-up for schizoaffective disorder with catatonia. Patient seen and examined. Continues to be non verbal, no oral intake. Does not appear to be in any distress. Per RN, ate a couple bites of cookie and most of his fruit. Drank about 150mL of his coke. Physical Exam Physical Exam: General Appearance :Lying on the bed comfortably.slee ping. Respiratory :normal respirato ry effort, lungs c lear to auscultati on, no wheeze, ral es, rhonchi. No a ccessory muscle us e Cardiovascular: tachycardic rate, regular rhythm, n o murmur, normal p eripheral pulses, no BLE edema. Vess els: no JVD Chest: normal inspectio n of chest Abdomen /GI: normal bowel sounds, soft, non tender, no hepatos plenomegaly Extrem ities/Musculoskele eliz: no cyanosis or clubbing, extre mities motor stren gth 5/5 Neurologic /psych: Does not a nswer any question s Skin: no rashes , normal color, wa rm/dry, excoriated area near groin b ut no open wounds visualized Results & Data Results & Data Vital Signs (Past 12 Hours) Vital Signs Temp Pulse Pulse Resp BP Pulse Ox O2 Del Method 12/25/22 14:29 155 H 12/25/22 14:26 37.2 C 18 116/83 94 Room Air 12/25/22 07:13 37.7 C H 118 H 16 128/81 96 Room Air
[2022-12-25] MEDS ORDERED: [UNRECOGNIZED DRUG - OTHER] IV SCH (16:00)
[2022-12-25] MEDS ORDERED: CLINOLIPID 20% IV FAT EMULSION 250 ML IV ONE (16:00)
[2022-12-25] MEDS ORDERED: PERIPHERAL TPN IV SCH (16:00)
--- NOTE | 2022-12-25 16:34 | XRay Report ---
XR chest 1V portable CLINICAL HISTORY: ro infection TECHNIQUE: Single frontal radiograph of the chest was obtained. Comparison: Comparison is made to chest radiograph 11/03/2022 FINDINGS: No lines and tubes are seen. The cardiomediastinal silhouette is normal. Left lung base airspace opac ity is seen. Left effusion cannot be entirely excluded. IMPRESSION: Left lung base airspace opacity likely represents atelectasis with or without superimposed aspiration /pneumonia. ACT 112: Negative or not required by law. Electronically signed by: Wade Christensen M.D. 12/25/2022 4:33 PM
[2022-12-25 19:15] LABS: Appearance Urine Clear (Clear); Bacteria Urine Automated Negative (Negative); Bilirubin Urine Negative (Negative); Blood Urine 2+ (Negative); Color Urine Dark Yellow; Glucose Urine UA Negative (Negative); Ketones Urine Negative (Negative); Leukocyte Esterase Urine Negative (Negative); Nitrite Urine Negative (Negative); Protein Urine 1+ (Negative); Specific Gravity Urine 1.027 (1.000-1.030); Urobilinogen Urine Negative (Negative); pH Urine 6.5 (4.5-7.5)
[2022-12-25] MEDS ORDERED: ACETAMINOPHEN 1,000 MG/100 ML VIAL IV STA (21:29)
[2022-12-25] MEDS ORDERED: VANCOMYCIN CONSULT ACTIVE PRN (21:41)
[2022-12-25] MEDS ORDERED: SODIUM CHLORIDE 0.9% 1,000 ML IV SCH (21:45)
[2022-12-25] MEDS ORDERED: VANCOMYCIN HCL 2,500 MG in SODIUM CHLORIDE 0.9% 500 ML IV STA (22:03)
--- NOTE | 2022-12-25 22:21 | Pharmacy Report ---
Pharmacy PK ABX Note - Date of Service December 25, 2022 - Assessment and Plan Assessment 42 year old M receiving Vancomycin and Meropenem for empiric treatment of fever. * Tmax of 40.1oC today and white count of 14k. * Repeat blood culture pending. * Abx ordered empirically so 48 hour expiration date. Plan Vancomycin * Loading dose: 2500 mg IV x 1 * Maintenance dose: 1000 mg IV every 8 hours * Regimen is predicted to achieve target AUC/KARMA of 400-600 mg/L.hr * No level will be ordered unless therapy extends beyond 48 hours Meropenem * 500 mg IV every 6 hours Pharmacy will continue to follow and will adjust dose/frequency as necessary. Thank you. Pharmacy has transitioned to AUC monitoring for vancomycin. AUC/KARMA is the preferred PK/PD target and is associated with decreased risk of nephrotoxicity compared to traditional trough targets.
[2022-12-25] MEDS: STOP CLINOLIPID SCH (22:26)
[2022-12-25] MEDS: MEROPENEM 500 MG in SYRINGE 0 ML IV SCH (22:27)
[2022-12-25] MEDS: SODIUM CHLORIDE 0.9% 1,000 ML IV SCH (22:55)
[2022-12-25] MEDS ORDERED: SODIUM CHLORIDE 0.9% 500 ML IV ONE (23:06)
[2022-12-26 01:06] LABS: Adenovirus PCR Not Detected (NotDetected); Bordetella parapertussis PCR Not Detected (NotDetected); Bordetella pertussis PCR Not Detected (NotDetected); Chlamydia pneumoniae PCR Not Detected (NotDetected); Coronavirus 229E PCR Not Detected (NotDetected); Coronavirus CoV-2 (COVID19)PCR Not Detected (NotDetected); Coronavirus HKU1 PCR Not Detected (NotDetected); Coronavirus NL63 PCR Not Detected (NotDetected); Coronavirus OC43PCR Not Detected (NotDetected); Human Metapneumovirus PCR Not Detected (NotDetected); Influenza A PCR Not Detected (NotDetected); Influenza B PCR Not Detected (NotDetected); Mycoplasma pneumoniae PCR Not Detected (NotDetected); Parainfluenza Virus 1 PCR Not Detected (NotDetected); Parainfluenza Virus 2 PCR Not Detected (NotDetected); Parainfluenza Virus 3 PCR Not Detected (NotDetected); Parainfluenza Virus 4 PCR Not Detected (NotDetected); Respiratory Syncytial VirusPCR Not Detected (NotDetected); Rhinovirus/Enterovirus PCR Not Detected (NotDetected)
[2022-12-26] MEDS: SODIUM CHLORIDE 0.9% 1,000 ML IV SCH (03:05)
[2022-12-26] MEDS: MEROPENEM 500 MG in SYRINGE 0 ML IV SCH ×4 (03:48→21:15)
[2022-12-26 08:07] LABS: Basophils # (auto) 0.05 K/uL (0-0.2); Basophils % (auto) 0.6 %; Eosinophils # (auto) 0.01 K/uL (0-0.50); Eosinophils % (auto) 0.1 %; Hematocrit (blood only) 38.3 % (42.0-52.0); Hemoglobin 13.3 g/dl (14.0-18.0); Immature Granulocytes # (auto) 0.05 K/uL (0.01-0.20); Immature Granulocytes % (auto) 0.6 %; Lymphocytes # (auto) 0.95 K/uL (1.2-3.4); Mean Corpuscular Hemoglobin 30.8 pg (25.0-34.0); Mean Corpuscular Hgb Conc 34.7 g/dL (32.0-36.0); Mean Corpuscular Volume 88.7 fL (80.0-100.0); Mean Platelet Volume 11.9 fL (9.4-12.4); Monocytes # (auto) 0.98 K/uL (0.11-0.59); Monocytes % (auto) 11.3 %; Neutrophils # (auto) 6.63 K/uL (1.40-6.50); Neutrophils % (auto) 76.4 %; Platelet Count 130 K/uL (130-400); RDW Coefficient of Variation 12.7 % (11.5-14.5); RDW Standard Deviation 41.3 fL (36.4-46.3); Red Blood Count 4.32 M/uL (4.70-6.10); White Blood Count 8.67 K/ul (4.8-10.8)
[2022-12-26 08:16] LABS: INR 1.2 (0.9-1.1); Prothrombin Time 13.5 Seconds (9.0-12.0)
[2022-12-26] MEDS: ACETAMINOPHEN 1,000 MG/100 ML VIAL IV PRN ×2 (08:18→18:43)
[2022-12-26 08:57] LABS: Albumin Globulin Ratio 1.5 (0.9-2); Albumin Level 3.2 gm/dl (3.4-5.0); BUN Creatinine Ratio 16.7 (10-20); Bilirubin,Total 0.8 mg/dl (0.2-1.0); Calcium 8.2 mg/dl (8.6-10.3); Creatinine Clr Calc Pharmacy 155.7 ml/min; Est GFR (African American) 133.4 ml/min; Est GFR (Non-African American) 115.1 ml/min; Globulin 2.2 gm/dl (2.5-4.0); Magnesium 1.5 mg/dl (1.7-2.4); Potassium 3.7 mmol/L (3.5-5.1); Total Protein 5.4 gm/dl (6.0-8.3)
[2022-12-26 09:03] LABS: Troponin I High Sensitivity 6.6 pg/ml (0-20)
[2022-12-26 09:11] LABS: BUN Creatinine Ratio 17.1 (10-20); Calcium 8.2 mg/dl (8.6-10.3); Creatinine Clr Calc Pharmacy 160.1 ml/min; Est GFR (African American) 134.9 ml/min; Est GFR (Non-African American) 116.4 ml/min; Magnesium 1.5 mg/dl (1.7-2.4); Phosphorus 2.4 mg/dl (2.5-4.9); Potassium 3.6 mmol/L (3.5-5.1)
[2022-12-26] MEDS: VANCOMYCIN HCL 1,000 MG in SODIUM CHLORIDE 0.9% 250 ML IV SCH ×3 (09:14→23:35)
--- NOTE | 2022-12-26 09:21 | Hospitalist Progress Note ---
Date of Service December 26, 2022 Assessment & Plan (1) Schizoaffective disorder: (2) Unable to care for self: (3) Starvation ketoacidosis: (4) Severe malnutrition: Plan 42-year-old male with PMH of schizoaffective disorder, catatonia who presents after being found minimally responsive and covered in feces on a welfare check. He was brought to the hospital. Found to have starvation ketosis with anion gap metabolic acidosis. Schizoaffective disorder with catatonia Patient was admitted for 5 months from 02/2021 to 06/2021 in psychiatric unit here in the hospital. Had neurology evaluation including MRI brain which was normal. CT head without acute intracranial abnormality, tox screen negative Prolonged hospital stay, currently Day 53 Was evaluated by Psychiatry Per psych, pt still does not have capacity in spite of progress previously noted. Mother who is emergency guardian, will continue making decisions for pt. Had a prior hearing to appoint his mother legal guardian until a later hearing to determine if this will be permanent 12/02-Patient ate half of his breakfast however nothing further throughout the day. 12/03 -305 hearing approved. 12/07: Last PPN line and hence nutrition. He ate some of his lunch and some of his dinner on this day. 12/09- pt no responding to provider but is responsive to nursing, re evaluated pt twice with same response. His nurse Tato was able to get him to eat a few doritos, cookie, drank some water and 1/2 carton of ice team at 1528 12/10 - Did not eat 12/11 - Per RN he ate and drank 12/12 - Per RN, ate dinner well 12/13 - Declined food but drank some 12/14 - Drinks some. Not much eating 12/15 - Not eating. Per prior attending - On 12/15/22, I discussed with Dr Garces. She reported patient has been trialed on almost all meds without response and has nothing to offer at this time. Psych recommends ok to continue daytrana if he eats but if goes days without eating, then daytrana should be stopped to avoid cardiac risks. Daytrana stopped 12/16/2212/17 - per RN no po intake 12/18- only sips of coke on 12/17, no intake today. 12/19 - no intake today per rn 12/20 - pt drank some orange juice in the morning per RN. 12/21 - no intake today per RN. 12/22 - continued to be nonverbal, no oral intake, PPN continues 12/23 - no intake, PPN continues, interdisciplinary team meeting with patient's legal guardian present - planning for PEG and SNF placement 12/24 - drank 375 mL of orange juice and ate half of grilled cheese and nibbled some cookies. 12/25 - couple of bite of cookie, most of his fruit, 150 ml of coke. 12/26/22- notified by small business sales representative that pt had a fever to 104 overnight, was tachycardic (HR in 130s) and hypotensive. Received a 1500cc bolus and currently on NSS@100. Was started on empiric IV Meropenem and Vancomycin. Pt was refusing labs and a second IV line so only one set of Blood Cx was obtained last night, with another set this AM. AM labs reveal an improved WBC from elevation the day prior. Chest XRAY concerning for possible pneumonia (?aspiration), urine not currently suggestive of infection. Repeat orders from overnight are pending. Email from his mother to dated 12/24/22 reviewed- Notes that she has many questions about the PEG tube and would like daily updates. Mother contacted via phone and advised of current infection, unsure source, being treated with empiric antibiotics. She noted that they will be visiting on ThursdayDec 29 and would like to defer further discussion of PEG tube placement until then. Advised that service would be in agreement to defer PEG tube or any tube placement at this time due to pt's current infection. She verbalized understanding. Continue current empiric abx, follow blood Cx. 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 Repeat blood cultures were negative Pneumonia and sepsis were ruled out Urine Analysis s/o uti but Cx - no growth Severe malnutrition Vitamin D deficiency: Received PPN 11/20 -11/27 and one bag on 11/30 Patient continues to have very poor oral intake. See above. C/w PPN, monitor electrolytes, replete as appropriate. DVT PROPHYLAXIS: SQ Lovenox Dispo - Patient will have PEG placed once patient's legal guardian decides on this and plan for SNF Admission and Anticipated Discharge Date Admission Date: November 03, 2022 Subjective Pt seen this AM. Laying on right side, eyes occasionally open. Not responsive to verbal stimuli or touch. Email from his mother reviewed- Notes that she has many questions about the PEG tube and would like daily updates. Mother contacted via phone and advised of current infection, unsure source, being treated with empiric antibiotics. She noted that they will be visiting on ThursdayDec 29 and would like to defer further discussion of PEG tube placement until then. Advised that service would be in agreement to defer PEG tube or any tube placement at this time due to pt's current infection. She verbalized understanding. Review of Systems Review of Systems: All systems reviewed & are unremarkable except as noted in Subjective Physical Exam Physical Exam: General: laying in bed Skin: No noted rashes or bruises Psych: could not be evaluated as was unresponsive Neuro:Not moving HEENT: NC/AT Chest: Nontender to palpation. CV: tachcardic Resp: Breath sounds clear bilaterally Abdomen: Soft Extremities: No edema in lower extremities bilaterally. Results & Data Results & Data Vital Signs (Past 12 Hours) Vital Signs Temp Pulse Pulse Resp BP BP Pulse Ox 12/26/22 07:46 39.4 C H 124 H 16 98/58 L 97 12/25/22 22:53 108 H 98/58 L 12/25/22 21:49 37.9 C H 136 H 98/56 L 94 12/25/22 21:36 135 H 98/56 L 12/25/22 21:23 40.1 C H 137 H 18 94/53 L 98 O2 Del Method 12/26/22 07:46 Room Air 12/25/22 22:53 12/25/22 21:49 Room Air 12/25/22 21:36 12/25/22 21:23 Room Air
--- NOTE | 2022-12-26 12:38 | Electrocardiogram Report ---
Test Reason : Blood Pressure : / mmHG Vent. Rate : 154 BPM Atrial Rate : 154 BPM P-R Int : 104 ms QRS Dur : 080 ms QT Int : 332 ms P-R-T Axes : 000 099 001 degrees QTc Int : 531 ms Sinus tachycardia with short VA Rightward axis Abnormal ECG When compared with ECG of 03-NOV-2022 14:42, No significant change was found Confirmed by Garth Robbins ([id number]) on 12/26/2022 12:37:38 PM Referred By: REFERRED SELF Confirmed By:Garth Robbins
--- NOTE | 2022-12-26 12:55 | Pharmacy Report ---
PHA: Parenteral Nutrition Con - Date of Service December 26, 2022 - Scope Pharmacy was consulted on 12/26/22 to manage parenteral nutrition orders for this patient. - Subjective The patient is currently on day 11 of peripheral parenteral nutrition for malnutrition. - Objective Height: 5 ft 10 in Weight: 96.4 kg Diet: Regular Vascular Access:: Peripheral Intake & Output (24hrs):: Intake & Output 12/24/22 12/25/22 12/26/22 12/27/22 06:59 06:59 06:59 06:59 Intake Total 2383 / 2383 3098 / 3098 5590.562 / 5590.562 1370 / 1370 Output Total 950 / 950 1225 / 1225 851 / 851 Balance 1433 / 1433 1873 / 1873 4739.562 / 4739.562 1370 / 1370 Weight 96.4 kg Laboratory Data (Last 24 Hr):: 12/26/22 12/26/22 07:38 07:38 Sodium 137 137 Potassium 3.7 3.6 Chloride 111 H 111 H Carbon Dioxide 20 L 20 L BUN 12 12 Creatinine 0.72 0.70 Glucose 101 H 101 H Calcium 8.2 L 8.2 L Phosphorus 2.4 L Magnesium 1.5 L 1.5 L Total Bilirubin 0.8 AST 30 ALT 33 Alkaline Phosphatase 66 Albumin 3.2 L Nutrition Assessment:: Please refer to the Notes section of the EMR for the most recent employee communications coordinator note. - Plan For day 11 of PN administration, the following will be ordered: Macronutrients Amino acids 85 grams/day Dextrose 100 grams/day Lipids 50 grams/day Micronutrients Combined electrolytes [] mL - contains 35 mEq Na, 20 meq K, 4.5 mEq Ca, 5 mEq Mg, 35 mEq Cl, 29.5 mEq acetate per 20 mL Sodium phosphate [] MMol Sodium chloride 20 mEq Sodium acetate 160 mEq Potassium phosphate 30 mMol Potassium chloride [] mEq Potassium acetate 20 mEq Magnesium sulfate 16.24 mEq Calcium gluconate 4.65 mEq Multivitamins 10 mL Trace Elements 1 mL Additional additives: Thiamine 100 mg, Folic acid 1 mg Total volume 2134 mL to be infused over 24 hrs will provide 1180 kcal/day Final osmolarity 865 mOsm/L (maximum for PPN is 900 mOsm/L) Labs, as indicated, will be ordered per protocol Pharmacy will continue to follow and adjust parenteral nutrition orders on a daily basis. Thank you for allowing us to participate in the care of this patient.
[2022-12-26] MEDS: ENOXAPARIN INJ 40 MG/0.4 ML SYR SQ SCH (15:08)
[2022-12-26] MEDS ORDERED: PERIPHERAL TPN IV SCH (16:00)
[2022-12-26] MEDS ORDERED: CLINOLIPID 20% IV FAT EMULSION 250 ML IV ONE (16:00)
[2022-12-26] MEDS ORDERED: [UNRECOGNIZED DRUG - OTHER] IV SCH (16:00)
[2022-12-26] MEDS ORDERED: MICONAZOLE NITRATE POWDER 85 GM EXT PRN (18:17)
[2022-12-26] MEDS: STOP CLINOLIPID SCH (21:50)
[2022-12-27] MEDS: MEROPENEM 500 MG in SYRINGE 0 ML IV SCH ×3 (03:11→15:57)
[2022-12-27] MEDS: VANCOMYCIN HCL 1,000 MG in SODIUM CHLORIDE 0.9% 250 ML IV SCH ×2 (07:44→20:09)
[2022-12-27] MEDS: ENOXAPARIN INJ 40 MG/0.4 ML SYR SQ SCH (07:44)
[2022-12-27 10:18] LABS: Basophils # (auto) 0.03 K/uL (0-0.2); Basophils % (auto) 0.4 %; Eosinophils # (auto) 0.09 K/uL (0-0.50); Eosinophils % (auto) 1.2 %; Hemoglobin 13.4 g/dl (14.0-18.0); Immature Granulocytes # (auto) 0.04 K/uL (0.01-0.20); Immature Granulocytes % (auto) 0.5 %; Lymphocytes # (auto) 1.46 K/uL (1.2-3.4); Lymphocytes % (auto) 19.9 %; Mean Corpuscular Hemoglobin 30.5 pg (25.0-34.0); Mean Corpuscular Hgb Conc 35.3 g/dL (32.0-36.0); Mean Corpuscular Volume 86.6 fL (80.0-100.0); Monocytes # (auto) 0.82 K/uL (0.11-0.59); Monocytes % (auto) 11.2 %; Neutrophils # (auto) 4.89 K/uL (1.40-6.50); Neutrophils % (auto) 66.8 %; Platelet Count 131 K/uL (130-400); RDW Coefficient of Variation 12.7 % (11.5-14.5); RDW Standard Deviation 39.9 fL (36.4-46.3); Red Blood Count 4.39 M/uL (4.70-6.10); White Blood Count 7.33 K/ul (4.8-10.8)
[2022-12-27 10:52] LABS: BUN Creatinine Ratio 26.8 (10-20); Calcium 7.9 mg/dl (8.6-10.3); Creatinine Clr Calc Pharmacy 200.3 ml/min; Est GFR (African American) 147.9 ml/min; Est GFR (Non-African American) 127.6 ml/min; Magnesium 2.1 mg/dl (1.7-2.4); Phosphorus 1.5 mg/dl (2.5-4.9); Potassium 3.7 mmol/L (3.5-5.1)
[2022-12-27] MEDS ORDERED: POTASSIUM PHOS 3 MMOL/1 ML INFUSION IV STA (11:49)
[2022-12-27 11:53] LABS: Appearance Urine Turbid (Clear); Bacteria Urine Automated Negative (Negative); Bilirubin Urine Negative (Negative); Blood Urine Negative (Negative); Color Urine Yellow; Glucose Urine UA Negative (Negative); Ketones Urine Negative (Negative); Leukocyte Esterase Urine Negative (Negative); Nitrite Urine Negative (Negative); RBC Urine Automated 0-4 /hpf (0-4); Specific Gravity Urine 1.022 (1.000-1.030); Urobilinogen Urine Negative (Negative)
[2022-12-27] MEDS ORDERED: POTASSIUM PHOSPHATE 21 MMOL in SODIUM CHLORIDE 0.9% 500 ML IV ONE (12:00)
[2022-12-27] MEDS ORDERED: PIPERACILLIN/TAZOBACTAM 4.5 GM (over 30 mins) IV ONE (12:00)
[2022-12-27 12:07] LABS: Protein Urine Trace (Negative)
[2022-12-27] MEDS ORDERED: VANCOMYCIN LEVEL SCH (15:00)
[2022-12-27] MEDS ORDERED: CLINOLIPID 20% IV FAT EMULSION 250 ML IV ONE (16:00)
[2022-12-27] MEDS ORDERED: PERIPHERAL TPN IV SCH (16:00)
[2022-12-27] MEDS ORDERED: [UNRECOGNIZED DRUG - OTHER] IV SCH (16:00)
--- NOTE | 2022-12-27 16:17 | Pharmacy Report ---
Pharmacy PK ABX Note - Date of Service December 27, 2022 - Assessment and Plan Assessment 42 year old M receiving Vancomycin and Meropenem for empiric treatment of fever. * Afebrile today. No growth in any cultures. Renal fxn and white count stable. * Okay for vanc and meropenem to fall off today per provider. Will be transitioned to Zosyn. Plan Vancomycin * discontinued Meropenem * discontinued Pharmacy will continue to follow and will adjust dose/frequency as necessary. Thank you. Pharmacy has transitioned to AUC monitoring for vancomycin. AUC/KARMA is the preferred PK/PD target and is associated with decreased risk of nephrotoxicity compared to traditional trough targets.
--- NOTE | 2022-12-27 16:24 | Hospitalist Progress Note ---
Date of Service December 27, 2022 Assessment & Plan (1) Schizoaffective disorder: (2) Unable to care for self: (3) Starvation ketoacidosis: (4) Severe malnutrition: Plan 42-year-old male with PMH of schizoaffective disorder, catatonia who presents after being found minimally responsive and covered in feces on a welfare check. He was brought to the hospital. Found to have starvation ketosis with anion gap metabolic acidosis. Schizoaffective disorder with catatonia Patient was admitted for 5 months from 02/2021 to 06/2021 in psychiatric unit here in the hospital. Had neurology evaluation including MRI brain which was normal. CT head without acute intracranial abnormality, tox screen negative Prolonged hospital stay, currently Day 53 Was evaluated by Psychiatry Per psych, pt still does not have capacity in spite of progress previously noted. Mother who is emergency guardian, will continue making decisions for pt. Had a prior hearing to appoint his mother legal guardian until a later hearing to determine if this will be permanent 12/02-Patient ate half of his breakfast however nothing further throughout the day. 12/03 -305 hearing approved. 12/07: Last PPN line and hence nutrition. He ate some of his lunch and some of his dinner on this day. 12/09- pt no responding to provider but is responsive to nursing, re evaluated pt twice with same response. His nurse Tato was able to get him to eat a few doritos, cookie, drank some water and 1/2 carton of ice team at 1528 12/10 - Did not eat 12/11 - Per RN he ate and drank 12/12 - Per RN, ate dinner well 12/13 - Declined food but drank some 12/14 - Drinks some. Not much eating 12/15 - Not eating. Per prior attending - On 12/15/22, I discussed with Dr Garces. She reported patient has been trialed on almost all meds without response and has nothing to offer at this time. Psych recommends ok to continue daytrana if he eats but if goes days without eating, then daytrana should be stopped to avoid cardiac risks. Daytrana stopped 12/16/2212/17 - per RN no po intake 12/18- only sips of coke on 12/17, no intake today. 12/19 - no intake today per rn 12/20 - pt drank some orange juice in the morning per RN. 12/21 - no intake today per RN. 12/22 - continued to be nonverbal, no oral intake, PPN continues 12/23 - no intake, PPN continues, interdisciplinary team meeting with patient's legal guardian present - planning for PEG and SNF placement 12/24 - drank 375 mL of orange juice and ate half of grilled cheese and nibbled some cookies. 12/25 - couple of bite of cookie, most of his fruit, 150 ml of coke. 12/26 - notified by restorative art embalmer that pt had a fever to 104 overnight, was tachycardic (HR in 130s) and hypotensive. Received a 1500cc bolus and currently on NSS@100. Was started on empiric IV Meropenem and Vancomycin. Pt was refusing labs and a second IV line so only one set of Blood Cx was obtained last night, with another set this AM. AM labs reveal an improved WBC from elevation the day prior. Chest XRAY concerning for possible pneumonia (?aspiration), urine not currently suggestive of infection. Email from his mother to dated 12/24/22 reviewed- Notes that she has many questions about the PEG tube and would like daily updates. Mother contacted via phone and advised of current infection, unsure source, being treated with empiric antibiotics. She noted that they will be visiting on ThursdayDec 29 and would like to defer further discussion of PEG tube placement until then. Advised that service would be in agreement to defer PEG tube or any tube placement at this time due to pt's current infection. She verbalized understanding. Continue current empiric abx, follow blood Cx. 12/27- Fever, tachycardia and BP improved today. Empiric Vancomycin and Meropenem discontinued, and pt transitioned to Zosyn. WBC improved. Phosphate was decreased today and repleted. Continue PPN. Mother updated, wanted update on labs. She was agreeable with plan. 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 Repeat blood cultures were negative Pneumonia and sepsis were ruled out Urine Analysis s/o uti but Cx - no growth Severe malnutrition Vitamin D deficiency: Received PPN 11/20 -11/27 and one bag on 11/30 Patient continues to have very poor oral intake. See above. C/w PPN, monitor electrolytes, replete as appropriate. DVT PROPHYLAXIS: SQ Lovenox Dispo - Patient will have PEG placed once patient's legal guardian decides on this and plan for SNF Admission and Anticipated Discharge Date Admission Date: November 03, 2022 Subjective Pt seen this AM. Laying on his back, eyes open. Mother contacted via phone and message was left on her phone advising that call was made. She called back and was updated. Had questions about his labs. She noted that they will be visiting on ThursdayDec 29 and would like to defer further discussion of PEG tube placement until then. Review of Systems Review of Systems: Unobtainable due to mental health condition Physical Exam Physical Exam: General: laying in bed Psych: could not be evaluated as was unresponsive Neuro:Not moving HEENT: NC/AT Chest: Nontender to palpation. CV: tachycardic Resp: No increased effort of breathing Abdomen: Soft Extremities: No edema in lower extremities bilaterally. Results & Data Results & Data Vital Signs (Past 12 Hours) Vital Signs Temp Pulse Resp BP Pulse Ox O2 Del Method 12/27/22 05:34 37 C 99 H 16 113/71 98 Room Air
[2022-12-27] MEDS: STOP CLINOLIPID SCH (21:44)
[2022-12-27] MEDS: PIPERACILLIN/TAZOBACTAM 4.5 GM in DEXTROSE 5% 100 ML IV SCH (21:44)
[2022-12-28] MEDS ORDERED: Nursing to Pharmacy Communication SCH (01:30)
[2022-12-28] MEDS: VANCOMYCIN HCL 1,000 MG in SODIUM CHLORIDE 0.9% 250 ML IV SCH (03:25)
[2022-12-28] MEDS: PIPERACILLIN/TAZOBACTAM 4.5 GM in DEXTROSE 5% 100 ML IV SCH ×3 (05:12→21:53)
[2022-12-28] MEDS: ENOXAPARIN INJ 40 MG/0.4 ML SYR SQ SCH (08:34)
[2022-12-28 09:40] LABS: Basophils # (auto) 0.05 K/uL (0-0.2); Basophils % (auto) 0.8 %; Eosinophils # (auto) 0.19 K/uL (0-0.50); Eosinophils % (auto) 2.9 %; Hematocrit (blood only) 38.4 % (42.0-52.0); Hemoglobin 13.2 g/dl (14.0-18.0); Immature Granulocytes # (auto) 0.04 K/uL (0.01-0.20); Immature Granulocytes % (auto) 0.6 %; Lymphocytes # (auto) 1.65 K/uL (1.2-3.4); Mean Corpuscular Hemoglobin 29.9 pg (25.0-34.0); Mean Corpuscular Hgb Conc 34.4 g/dL (32.0-36.0); Mean Corpuscular Volume 87.1 fL (80.0-100.0); Mean Platelet Volume 12.1 fL (9.4-12.4); Monocytes # (auto) 0.77 K/uL (0.11-0.59); Monocytes % (auto) 11.7 %; Platelet Count 164 K/uL (130-400); RDW Coefficient of Variation 12.1 % (11.5-14.5); RDW Standard Deviation 38.8 fL (36.4-46.3); Red Blood Count 4.41 M/uL (4.70-6.10)
[2022-12-28 09:55] LABS: BUN Creatinine Ratio 15.6 (10-20); Calcium 8.4 mg/dl (8.6-10.3); Creatinine Clr Calc Pharmacy 175.2 ml/min; Est GFR (Non-African American) 120.8 ml/min; Magnesium 2.2 mg/dl (1.7-2.4); Phosphorus 3.2 mg/dl (2.5-4.9); Potassium 3.6 mmol/L (3.5-5.1)
--- NOTE | 2022-12-28 15:25 | Hospitalist Progress Note ---
Date of Service December 28, 2022 Assessment & Plan (1) Schizoaffective disorder: (2) Unable to care for self: (3) Starvation ketoacidosis: (4) Severe malnutrition: Plan 42-year-old male with PMH of schizoaffective disorder, catatonia who presents after being found minimally responsive and covered in feces on a welfare check. He was brought to the hospital. Found to have starvation ketosis with anion gap metabolic acidosis. Schizoaffective disorder with catatonia Patient was admitted for 5 months from 02/2021 to 06/2021 in psychiatric unit here in the hospital. Had neurology evaluation including MRI brain which was normal. CT head without acute intracranial abnormality, tox screen negative Prolonged hospital stay, currently Day 53 Was evaluated by Psychiatry Per psych, pt still does not have capacity in spite of progress previously noted. Mother who is emergency guardian, will continue making decisions for pt. Had a prior hearing to appoint his mother legal guardian until a later hearing to determine if this will be permanent 12/02-Patient ate half of his breakfast however nothing further throughout the day. 12/03 -305 hearing approved. 12/07: Last PPN line and hence nutrition. He ate some of his lunch and some of his dinner on this day. 12/09- pt no responding to provider but is responsive to nursing, re evaluated pt twice with same response. His nurse Tato was able to get him to eat a few doritos, cookie, drank some water and 1/2 carton of ice team at 1528 12/10 - Did not eat 12/11 - Per RN he ate and drank 12/12 - Per RN, ate dinner well 12/13 - Declined food but drank some 12/14 - Drinks some. Not much eating 12/15 - Not eating. Per prior attending - On 12/15/22, I discussed with Dr Garces. She reported patient has been trialed on almost all meds without response and has nothing to offer at this time. Psych recommends ok to continue daytrana if he eats but if goes days without eating, then daytrana should be stopped to avoid cardiac risks. Daytrana stopped 12/16/2212/17 - per RN no po intake 12/18- only sips of coke on 12/17, no intake today. 12/19 - no intake today per rn 12/20 - pt drank some orange juice in the morning per RN. 12/21 - no intake today per RN. 12/22 - continued to be nonverbal, no oral intake, PPN continues 12/23 - no intake, PPN continues, interdisciplinary team meeting with patient's legal guardian present - planning for PEG and SNF placement 12/24 - drank 375 mL of orange juice and ate half of grilled cheese and nibbled some cookies. 12/25 - couple of bite of cookie, most of his fruit, 150 ml of coke. 12/26 - notified by cnc laser operator that pt had a fever to 104 overnight, was tachycardic (HR in 130s) and hypotensive. Received a 1500cc bolus and currently on NSS@100. Was started on empiric IV Meropenem and Vancomycin. Pt was refusing labs and a second IV line so only one set of Blood Cx was obtained last night, with another set this AM. AM labs reveal an improved WBC from elevation the day prior. Chest XRAY concerning for possible pneumonia (?aspiration), urine not currently suggestive of infection. Email from his mother to dated 12/24/22 reviewed- Notes that she has many questions about the PEG tube and would like daily updates. Mother contacted via phone and advised of current infection, unsure source, being treated with empiric antibiotics. She noted that they will be visiting on ThursdayDec 29 and would like to defer further discussion of PEG tube placement until then. Advised that service would be in agreement to defer PEG tube or any tube placement at this time due to pt's current infection. She verbalized understanding. Continue current empiric abx, follow blood Cx. 12/27- Fever, tachycardia and BP improved today. Empiric Vancomycin and Meropenem discontinued, and pt transitioned to Zosyn. WBC improved. Phosphate was decreased today and repleted. Continue PPN. Mother updated, wanted update on labs. She was agreeable with plan. 12/28- Pt continues to remain stable, slightly tachycardic but no more fevers or hypotension. Continue with Zosyn and PPN. Mother called and updated. Will be here tomorrow and would like to speak with provider while here. Expressed appreciation of care thus far. 11/03 2 of 4 blood culture bottles positive and pt started on vancomycin on 11/03 1/4 bottles grew INSTRUCTION DEAN not lugdenensis and 1/ grew anaerococcus prevoti vancomycin was stopped 11/07 as this was thought to be a contaminant. Repeat blood cultures were negative Pneumonia and sepsis were ruled out Urine Analysis s/o uti but Cx - no growth Severe malnutrition Vitamin D deficiency: Received PPN 11/20 -11/27 and one bag on 11/30 Patient continues to have very poor oral intake. See above. C/w PPN, monitor electrolytes, replete as appropriate. DVT PROPHYLAXIS: SQ Lovenox Dispo - Patient will have PEG placed once patient's legal guardian decides on this and plan for SNF Admission and Anticipated Discharge Date Admission Date: November 03, 2022 Subjective Pt seen this AM. Laying on his back, eyes open. Mother contacted via phone and updated about pt's vitals/labs today. She noted that they are 20 miles out and will be here tomorrow. Review of Systems Review of Systems: Unobtainable due to mental health condition Physical Exam Physical Exam: General: laying in bed Psych: could not be evaluated as was unresponsive Neuro:Not moving except his feet HEENT: NC/AT Chest: Nontender to palpation. CV: tachycardic Resp: No increased effort of breathing Abdomen: Soft Extremities: No edema in lower extremities bilaterally. Results & Data Results & Data Vital Signs (Past 12 Hours) Vital Signs Temp Pulse Resp BP Pulse Ox O2 Del Method 12/28/22 07:40 37.3 C 101 H 18 119/71 93 Room Air
[2022-12-28] MEDS ORDERED: [UNRECOGNIZED DRUG - OTHER] IV SCH (16:00)
[2022-12-28] MEDS ORDERED: PERIPHERAL TPN IV SCH (16:00)
[2022-12-28] MEDS ORDERED: CLINOLIPID 20% IV FAT EMULSION 250 ML IV ONE (16:00)
[2022-12-28] MEDS ORDERED: LORazepam 2 MG/1 ML VIAL IV STA ×2 (17:57→17:58)
[2022-12-28] MEDS: STOP CLINOLIPID SCH (21:58)
[2022-12-29] MEDS: PIPERACILLIN/TAZOBACTAM 4.5 GM in DEXTROSE 5% 100 ML IV SCH ×3 (05:45→22:01)
[2022-12-29 07:41] LABS: Basophils # (auto) 0.08 K/uL (0-0.2); Eosinophils # (auto) 0.12 K/uL (0-0.50); Eosinophils % (auto) 1.5 %; Hematocrit (blood only) 40.8 % (42.0-52.0); Hemoglobin 13.8 g/dl (14.0-18.0); Immature Granulocytes # (auto) 0.04 K/uL (0.01-0.20); Immature Granulocytes % (auto) 0.5 %; Lymphocytes # (auto) 2.11 K/uL (1.2-3.4); Lymphocytes % (auto) 26.1 %; Mean Corpuscular Hemoglobin 30.4 pg (25.0-34.0); Mean Corpuscular Hgb Conc 33.8 g/dL (32.0-36.0); Mean Corpuscular Volume 89.9 fL (80.0-100.0); Mean Platelet Volume 11.2 fL (9.4-12.4); Monocytes # (auto) 0.74 K/uL (0.11-0.59); Monocytes % (auto) 9.2 %; Neutrophils # (auto) 4.99 K/uL (1.40-6.50); Neutrophils % (auto) 61.7 %; Platelet Count 186 K/uL (130-400); RDW Coefficient of Variation 12.5 % (11.5-14.5); RDW Standard Deviation 41.5 fL (36.4-46.3); Red Blood Count 4.54 M/uL (4.70-6.10); White Blood Count 8.08 K/ul (4.8-10.8)
[2022-12-29] MEDS: ENOXAPARIN INJ 40 MG/0.4 ML SYR SQ SCH (07:59)
[2022-12-29 08:15] LABS: Calcium 8.9 mg/dl (8.6-10.3); Magnesium 2.3 mg/dl (1.7-2.4)
[2022-12-29 08:22] LABS: Creatinine Clr Calc Pharmacy 160.2 ml/min; Est GFR (African American) 134.9 ml/min; Est GFR (Non-African American) 116.4 ml/min; Phosphorus 4.2 mg/dl (2.5-4.9)
--- NOTE | 2022-12-29 12:35 | Communication Note ---
Date of Service: December 29, 2022 David's parents, including his mother who has guardianship, requested to meet to discuss psychiatric treatment options. We reviewed lack of efficacy of v arious antipsychotics and antidepressants during his past admissions and concern for using IM antipsychotics at this time due to cardiac risks, particularly given poor po intake, and not wanting to do more potential harm than good. They are very understanding of this and continue to have to consider what David's substituted judgment would be surrounding desired interventions such as a PEG tube. Reviewed that there was a nursing note from the evening of 12/26/2022 in which he engaged verbally with an RN for some time including being future- oriented in discussing his goal of eventually returning to "work again". Discussed challenge of assessing his decision making capacity and wishes given his lack of verbal engagement but that based on interactions since hospitalization there has not been any direct evidence I am aware of, where he has ever stated suicidal thoughts or noting not wanting to live as a reason for his poor po intake. Rather has consistently demonstrated very poor insight into his health conditions/reasons for medical interventions. Discussed that if decision is made to proceed with PEG then options for psychiatric medication re- trial could be considered if electrolyte/cardiac status is stable. His parents report very positive response in family members to Trintellix for depression as possible future option if he agrees to po medication or via PEG tube (though no safety data regarding whether or not Trintellix can be crushed).
--- NOTE | 2022-12-29 13:13 | Palliative Care Consultation ---
Date of Consultation December 29, 2022 Assessment & Plan (1) Altered mental status: multifactorial pt is not decisional; he in incapable of consistently making decisions for himself his mother is actively pursuing legal guardianship Altered mental status type: stupor Qualified Code(s): R40.1 - Stupor (2) Weakness generalized: (3) Severe malnutrition: (4) Palliative care by specialist: Met with family. Provided overview of Palliative Medicine, a subspecialty that provides specialized medical care for people living with a serious illness by offering a focus on quality of life. Palliative Medicine is often conflated with hospice: I advised patient/family that Palliative and hospice can be partners but we are not the same. It is important to understand the difference so that we may be informed, and not afraid. Palliative Medicine works to improve QOL through reduction of symptom burden/more control over their illness, for both the patient and family. Palliative medicine clinicians are board certified, specially-trained and another member of the patient's medical care team. We often provide an extra layer of support because our care is based on the needs of the patient, not the prognosis; as such, it's appropriate at any age/advancing stage of a serious illness and can be provided along with curative treatment. Palliative Medicine clinicians are also trained in advanced commun ication methodologies, to facilitate complex discussions about advanced illness planning, which are needed to help assure that the treatment choices match the patient's goals, aka delivering Goal Concordant care. Finally, we discussed that hospice is a visiting nurse service that focuses on care delivered at the very end of life for patients with terminal illness, with life expectancy less than 6 month. (5) Schizoaffective disorder, depressive type: (6) MDD (major depressive disorder), recurrent episode, severe: (7) Schizoaffective disorder, chronic condition with acute exacerbation: Plan * Refractory schizoaffective disorder with contributory neglect and volitional self neglect * Highly inconsistent and variable levels of engagement/interaction with staff/providers * Patient is not decisional. Mother is pursuing legal guardianship * Unfortunately he requires intermission coordinator care and placement at a psych-SNF setting which, unfortunately in today's healthcare, may ultimately be a state psych hospital. I do not believe he can sustainably live in supported living as he repeatedly demonstrates a consistent refusal to perform self care dee toileting: it is noted on chart review he defecates and urinates and waits for staff to clean him - this is not due to any weakness/hemiplegia neurocognitive impairment (such as dementia like changes), etc. His behaviors on psych unit when he was pushed to do more fo his self care are also noted. Patient does not display the behaviors or thought processes of someone who wants to"get better" to resume prior level of independent function. His reported CC to ED has repeatedly centered around wanting caregivers at home that he does not need to pay OOP. * Dr. Cortez advised that in meeting with parents today they expressed desire to explore a plan of care that may be simpler and more focused on allowing pt to do what he can/take PO as desired and focus on comfort, they also inquired about hospice. I spoke w/pt mom who is legal guardian and we have agreed to a family meeting tomorrow at 1230 in Conference Room #8, this has been reserved. I will meet Mom, Dad and pt sister at the room escort them to CR 8. Dr. Cortez. Dr Garces and JULIEN Montes are also aware and plan to attend this MDT meeting. * TS 75min Thank you for allowing us to participate in the ongoing care of this patient. Please don't hesitate to call or page with any additional concerns. Dr. Odalis Aldana DNP Director, Palliative Care History of Present Illness Reason for Consultation: goals of care discussion Attending Physician: Merari Cortez MD History of Present Illness David Diaz is a 42 yo man with a history of major depression and schizoaffective disorder admitted medically for severe decompensation with malnutrition and inability to care for himself. 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 On a converted outpatient to inpatient [address] Garces's excellent note 12/03/22 synopses as follows: David Diaz is a 42 yo man with a history of major depression and schizoaffective disorder admitted medically for severe decompensation with malnutrition and inability to care for himself. 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 On a converted outpatient to inpatient 304 commitment that expires 12/09/2022. Overall David continues to demonstrate signs of volitional behavior/selectively responds when he chooses to engage, i.e. speaking with his mother on the phone, talking with nurses at times, selectively responding to parts of conversation with me today, and there remains no evidence for catatonia. Reviewed discharge angie douglas from the [facility] for his recent admission from August through September 2022 (approximately a 30 day stay) during which time he initially refused to engage verbally, did not eat, was withdrawn to his room and refused all psychiatric medication and then eventually started to eat his meals, engaged verbally at times and starting taking haldol and Effexor XR just prior to discharge. Kenton questioned the diagnosis of schizophrenia, felt presentation likely due to depression and stressor of desiring more visitation rights with his daughter given that during his stay there was never any evidence for acute psychosis rather just possible paranoia. Over the last three months he has now been evaluated by more than 4 different psychiatrists none of whom feel catatonia is part of the clinical picture. At times he certainly shows some response to IV ativan (but these responses are always inconsistent and not at all what would be expected with catatonia where response would be consistent and sustained) and given improved po intake felt to be ok to try this for a few more days. But worry that more prolonged use may worsen neurovegetative symptoms. Daytrana patch may offer some benefits for depression and risk/benefit profile felt to favor trial at this time since he is eating but if he stops eating risks of potential cardiac event increase and at that time would consider discontinuing the patch. 12/02/2022: No consistent benefit observed with ongoing ativan trial, rather remains selective when and how he chooses to engage. Is attending to hygiene needs of using toilet or bedside commode. Oral intake remains variable. As expected engaged when prospect of PEG tube was raised, stated his opposition to this. No signs of acute psychosis, has been reality-based when he chooses to engage. Told hospitalist provider he chooses when he will eat based on who the RN is who is offering the food. Completed 305 involuntary commitment due to ongoing concerns for his lack of po intake/unable to meet his basic nutritional needs. Remains unclear if his pattern of eating only intermittently would result in /disability within 30 days as the commitment laws require, for this reason hospitalist provider will also be participating in the hearing to speak to medical risks of his current pattern of intake. Will discontinue ativan given ongoing lack of any signs of catatonia. Branham-Alfonso catatonia scale re-done today and David only scoring for immobility/stupor (1), mutism (1), grimacing (1) and withdrawn (2) which have not consistently changed even with repeated ativan trials and have overlap with other conditions such as neurovegetative symptoms of depression. If concerns persist regarding his po intake, particularly risk of /disability then encourage involvement of clinical ethics as additional automotive service consultant given that his mother has temporary guardianship and it is difficult to assess his decision making capacity since he refuses/or cannot engage in conversation to assess his understandings of risk/benefit/rationale for not eating consistently. Currently advise approach as outlined in paper by SA Nirav When Patients Refuse Assessment of Decision-Making Capacity(Nirav MADERA. When Patients Refuse Assessment of Decision-Making Capacity:How Should Clinicians Respond?[employer].2004;164(16):84755440. doi:10.1001/archint e.[id number])which recommends use of a substituted decision maker, in this case his mother, if risk of lack of eating is significant while continuing to discuss treatment course with David as if he were competent. However, ethics should be involved should it get to a point where it is felt he may require additional measures to ensure po intake, such as a procedure like PEG tube, that David is stating opposition to. 12/03/2022: Mute today, some facial grimacing but no change from before or after stopping ativan. Appears more alert since discontinuation of the ativan, now sitting up in bed and more participative with RN and greeting SMELLER. Still with poor po intake and voiding in his bed. Participated in 305 hearing alongside hospitalist provider to speak to concerns re: possible depression and/or factitious disorder impacting his lack of po intake/not meeting his basic nutritional needs but also discussed that no psychiatric interventions have ever showed any significant effect in addressing this, rather review of all prior episodes of similar symptoms, which date back to at least 2018, have resolved once he decides after a period of time to start eating and talking again. It also remains unclear how long he will go without eating and whether or not he would eat if discharged but recently has been requiring supplemental nutrition via PPN. In preparation for hearing reviewed past documentation which included the following from ED case management notes since 2018: 04/2018: Pt. states he finds himself in a severe depression. States he hasn't been able to sleep and or eat. States he has lost weight r/t not eating. Pt. states he spends most of the time on the couch or laying in bed. Pt. states he is paranoid and worries about his safety. States he worries that someone is going to break in the house. States he has problems with going outside at times. 03/2020: He reported when he get anxious he "does a lot of thinking" which is why he does not always respond to someone when they talk to him. The patient reported he does struggle with depression and sometimes feels helpless and has some social withdrawal. 08/2022: David denies any SI or HI but admits that he feels slightly depressed. He states that he hasn't been able to cook or clean due to a "multitude of disabilities". He arrives after admittedly not eating/drinking/taking care of himself over the past week or so. He states that he does feel slightly depressed but does not believe his inability to care for himself stems from his mental health. He states that he hasn't been taking his medications because of the not eating. He surmises he hasn't taken his meds for approximately a week. He lists an ongoing divorce as a stressor as well as not being able to see his 13yo daughter as much as he likes. He believes that his inability to care for himself comes from never learning how to do those things. Patient stated he just "needs someone to come to my house and take care of me because I'm disabled." Patient stated "the only reason I'm eating/drinking is because its brought to me here. You don't understand." Explained inpatient treatment can evaluate his needs for in home care services. Patient requested "until morning to decide. They sent me to [facility] in the past and that's not what I need." Advised patient that [place] is recommended to address his s evere depression. Patient stated 'I just need help at home. I can't do things myself and I can't afford to pay for a healthcare analyst." David acknowledges there are no medical issues preventing him from taking care of himself. Patient again refused to sign stating "I don't want to stay there for 72 hours. I just need someone to help take care of me at home." 10/2022: David stated "I don't need to be in the hospital and I'm tired of being brought here." David stated he don't have to keep answering the same questions "over and over again." David stated he is frustrated that "everyone thinks they know what is best for me and where I should be." Half of mental health thinks I need to be home and the other half threatens me with state hos pital." David denies SI/HI/SIB. He stated "I eat when I want to eat and I sleep well." David stated he feels safe to return home. He stated "I shouldn't keep being brought here." Review of documentation from his previous outpatient psychiatrist from [facility] in a note dated on 09/21/2020 describes: "He says that part of the reason for the length that hospital stay ([facility] [address] September 2018 to April 2019) was that he had difficulty engaging with other patients and was described as being withdrawn and secretive". Allergies Allergy/AdvReac Type Severity Reaction Status Date / Time No Known Allergies Allergy Verified 11/03/22 17:28 Home Medications Medication Instructions Recorded Confirmed Type benztropine 0.5 mg tablet 0.5 mg PO HS 08/14/22 11/03/22 History haloperidol 5 mg tablet 5 mg PO BID 08/14/22 11/03/22 History lamotrigine 25 mg tablet 50 mg PO BID 08/14/22 11/03/22 History venlafaxine 150 mg 150 mg PO QAM 08/14/22 11/03/22 History capsule,extended release 24 hr Patient History Medical History Anxiety Avolition Bipolar disorder Bipolar disorder with depression Catatonia Depression Mutism Noncompliance Obesity Psychosis Schizoaffective disorder Surgical History No pertinent past surgical history Family History Other Family history unknown Social History Smoking Status: Current some day smoker Preferred Language: Moldovan Communication Ability: Unable Communication Ability Comment: Catatonic like behavior Hollow Handle Bench Worker Required: No Beliefs That Will Affect Care: None Current Living Situation: Alone Feels Safe at Home: Declines to Answer Gender Identity: Male Assistive Devices: None Review of Systems Review of Systems: Unobtainable due to mental health condition and Unobtainable due to cognitive status Physical Exam Physical Exam: deferred/pt declined Results & Data Vital Signs (Past 12 Hours) Vital Signs Temp Pulse Resp BP BP Pulse Ox O2 Del Method 12/29/22 07:27 37.1 C 80 18 97/57 L 96 Room Air 12/29/22 01:13 37.3 C 84 20 100/63 97 Room Air Laboratory Results data reviewed/see HPI Diagnostic Findings data reviewed/see HPI PG Care Time/CCT Total # of Minutes Spent Total Time Spent: 75 Total Time Spent with Patient: Total time spent is greater than 50% in coordination of care (as documented) at patient's floor/unit and/or counseling patient: I spent 75 minutes overall addressing this very complicated case: 30 in medical data review/discussion with referring provider(s) and/or preparation for the visit including OSH reports, data and consultations 10 in direct interaction with the patient 00 Advance Care Planning/Goals of Care discussions as detailed above in note (must be >16min) 20 in subsequent review and synthesis of assessment and plan 25 in communicating with other providers regarding the patient's case: primary team, psych, care mgt [place] [address] IN/OBS CONSULT LVL 5,80M Patient Type New Medical Decision Making High Complexity Diagnoses Altered mental status R40.1 Altered mental status type: stupor Weakness generalized R53.1 Severe malnutrition E43 Palliative care by specialist Z51.5 Schizoaffective disorder, depressive type F25.1 MDD (major depressive disorder), recurrent episode, severe F33.2 Schizoaffective disorder, chronic condition with acute exacerbation F25.9
[2022-12-29] MEDS: STOP CLINOLIPID SCH (16:11)
--- NOTE | 2022-12-29 16:41 | Hospitalist Progress Note ---
Date of Service December 29, 2022 Assessment & Plan (1) Schizoaffective disorder: (2) Unable to care for self: (3) Starvation ketoacidosis: (4) Severe malnutrition: Plan 42-year-old male with PMH of schizoaffective disorder, catatonia who presents after being found minimally responsive and covered in feces on a welfare check. He was brought to the hospital. Found to have starvation ketosis with anion gap metabolic acidosis. Schizoaffective disorder with catatonia Patient was admitted for 5 months from 02/2021 to 06/2021 in psychiatric unit here in the hospital. Had neurology evaluation including MRI brain which was normal. CT head without acute intracranial abnormality, tox screen negative Prolonged hospital stay Was evaluated by Psychiatry Per psych, pt still does not have capacity in spite of progress previously noted. Mother who is emergency guardian, will continue making decisions for pt. Had a prior hearing to appoint his mother legal guardian until a later hearing to determine if this will be permanent 12/02-Patient ate half of his breakfast however nothing further throughout the day. 12/03 -305 hearing approved. 12/07: Last PPN line and hence nutrition. He ate some of his lunch and some of his dinner on this day. 12/09- pt no responding to provider but is responsive to nursing, re evaluated pt twice with same response. His nurse Tato was able to get him to eat a few doritos, cookie, drank some water and 1/2 carton of ice team at 1528 12/10 - Did not eat 12/11 - Per RN he ate and drank 12/12 - Per RN, ate dinner well 12/13 - Declined food but drank some 12/14 - Drinks some. Not much eating 12/15 - Not eating. Per prior attending - On 12/15/22, I discussed with Dr Garces. She reported patient has been trialed on almost all meds without response and has nothing to offer at this time. Psych recommends ok to continue daytrana if h e eats but if goes days without eating, then daytrana should be stopped to avoid cardiac risks. Daytrana stopped 12/16/2212/17 - per RN no po intake 12/18- only sips of coke on 12/17, no intake today. 12/19 - no intake today per rn 12/20 - pt drank some orange juice in the morning per RN. 12/21 - no intake today per RN. 12/22 - continued to be nonverbal, no oral intake, PPN continues 12/23 - no intake, PPN continues, interdisciplinary team meeting with patient's legal guardian present - planning for PEG and SNF placement 12/24 - drank 375 mL of orange juice and ate half of grilled cheese and nibbled s ome cookies. 12/25 - couple of bite of cookie, most of his fruit, 150 ml of coke. 12/26 - notified by personnel records clerk that pt had a fever to 104 overnight, was tachycardic (HR in 130s) and hypotensive. Received a 1500cc bolus and currently on NSS@100. Was started on empiric IV Meropenem and Vancomycin. Pt was refusing labs and a second IV line so only one set of Blood Cx was obtained last night, with another set this AM. AM labs reveal an improved WBC from elevation the day prior. Chest XRAY concerning for possible pneumonia (?aspiration), urine not currently suggestive of infection. Email from his mother to dated 12/24/22 reviewed- Notes that she has many questions about the PEG tube and would like daily updates. Mother contacted via phone and advised of current infection, unsure source, being treated with empiric antibiotics. She noted that they will be visiting on ThursdayDec 29 and would like to defer further discussion of PEG tube placement until then. Advised that service would be in agreement to defer PEG tube or any tube placement at this time due to pt's current infection. She verbalized understanding. Continue current empiric abx, follow blood Cx. 12/27- Fever, tachycardia and BP improved today. Empiric Vancomycin and Meropenem discontinued, and pt transitioned to Zosyn. WBC improved. Phosphate was decreased today and repleted. Continue PPN. Mother updated, wanted update on labs. She was agreeable with plan. 12/28- Pt continues to remain stable, slightly tachycardic but no more fevers or hypotension. Continue with Zosyn and PPN. Mother called and updated. Will be here tomorrow and would like to speak with provider while here. Expressed appreciation of care thus far. 12/29: Vitals are more stable, continue with Zosyn. Patient has not taken any food today. Patient's mother wanted PPN to be held today. She is still deciding on PEG tube. She wanted palliative care consult and ethics consult, both placed. Severe malnutrition Vitamin D deficiency: Received PPN 11/20 -11/27 and one bag on 11/30 Patient continues to have very poor oral intake. See above. C/w PPN, monitor electrolytes, replete as appropriate. DVT PROPHYLAXIS: SQ Lovenox Dispo - Patient will have PEG placed once patient's legal guardian decides on this and plan for psych SNF Total of 55 minutes were spent in care/coordination of the patient. Admission and Anticipated Discharge Date Admission Date: November 03, 2022 Subjective Pt seen this AM. Laying on his back, eyes open. Parents at bedside, updated in detail. Discussed about feeding options and reiterated inability to put in NG tube due to patient fighting it. Total of 25 minutes spent in face to face conversation with parents. Answered all their questions. They also are concerned making appropriate decision for him and are thinking what he would have wanted in this situation. They were inquiring about hospice care and wanted to have goals of care discussion. D/w palliative, consulted them, plan for fam meeting again sara. They wanted to d/w ethics as well, consulted ethics per family wishes. Pt's mother didn't want any PPN nutrition today. Physical Exam Physical Exam: General Appearance :Lying on the bed comfortably.non communicative. Re spiratory:normal respiratory effort , lungs clear to a uscultation, no wh eeze, rales, rhonc hi. No accessory muscle use Cardiov ascular: tachycar dic rate, regular rhythm, no murmur, normal peripheral pulses, no BLE ed darian. Vessels: no J VD Chest: normal inspection of ches t Abdomen/GI: nor mal bowel sounds, soft, nontender, n o hepatosplenomega ly Extremities/Mus culoskeletal: no cyanosis or clubbi ng, extremities mo tor strength 5/5 N eurologic/psych: D oes not answer any questions Skin: no rashes, normal color, warm/dry, e xcoriated area jeannette r groin but no ope n wounds visualize d Results & Data Results & Data Vital Signs (Past 12 Hours) Vital Signs Temp Pulse Resp BP Pulse Ox O2 Del Method 12/29/22 15:11 36.9 C 74 16 105/66 98 Room Air 12/29/22 07:27 37.1 C 80 18 97/57 L 96 Room Air
[2022-12-30] MEDS: PIPERACILLIN/TAZOBACTAM 4.5 GM in DEXTROSE 5% 100 ML IV SCH ×3 (05:29→22:28)
[2022-12-30] MEDS: ENOXAPARIN INJ 40 MG/0.4 ML SYR SQ SCH (07:42)
[2022-12-30 09:07] LABS: Basophils # (auto) 0.07 K/uL (0-0.2); Eosinophils # (auto) 0.18 K/uL (0-0.50); Eosinophils % (auto) 2.6 %; Hematocrit (blood only) 42.8 % (42.0-52.0); Hemoglobin 14.4 g/dl (14.0-18.0); Immature Granulocytes # (auto) 0.06 K/uL (0.01-0.20); Immature Granulocytes % (auto) 0.9 %; Lymphocytes # (auto) 1.95 K/uL (1.2-3.4); Lymphocytes % (auto) 28.1 %; Mean Corpuscular Hemoglobin 30.5 pg (25.0-34.0); Mean Corpuscular Hgb Conc 33.6 g/dL (32.0-36.0); Mean Corpuscular Volume 90.7 fL (80.0-100.0); Mean Platelet Volume 10.6 fL (9.4-12.4); Monocytes # (auto) 0.49 K/uL (0.11-0.59); Monocytes % (auto) 7.1 %; Neutrophils # (auto) 4.19 K/uL (1.40-6.50); Neutrophils % (auto) 60.3 %; Platelet Count 210 K/uL (130-400); RDW Coefficient of Variation 12.4 % (11.5-14.5); RDW Standard Deviation 41.1 fL (36.4-46.3); Red Blood Count 4.72 M/uL (4.70-6.10); White Blood Count 6.94 K/ul (4.8-10.8)
[2022-12-30 09:37] LABS: BUN Creatinine Ratio 12.9 (10-20); Calcium 9.2 mg/dl (8.6-10.3); Creatinine Clr Calc Pharmacy 131.9 ml/min; Est GFR (African American) 124.6 ml/min; Est GFR (Non-African American) 107.5 ml/min; Magnesium 2.4 mg/dl (1.7-2.4); Phosphorus 3.3 mg/dl (2.5-4.9)
--- NOTE | 2022-12-30 14:29 | Psychiatric Progress Note ---
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 Has been largely treatment refractory to all prior antipsychotic and psychiatric medication trials especially when not agreeable to taking po medication. Participated in case conference with palliative care, hospitalist, case management, as well as David's parents and sister for 70 minutes. Reviewed challenge of involuntary psychiatric medication in setting of poor po intake/cardiac risks/concerns for doing more harm than good as well as possible options that could be explored if nutrition improves. His family is considering likely trial of PEG tube but also gathering information and input about palliative care options and potential care directions should he refuse PEG or if family wants to shift to comfort care focus. Overall, I spent a total of 85 minutes with this case including review of chart records, review of labwork, participation in case conference with patient's family and other care providers and documentation in the electronic health record. (1) Malnutrition due to starvation: (2) Schizoaffective disorder, depressive type: Plan -Family considering treatment options -Ethics has been consulted as well -Discussed with hospitalist and palliative care providers Interval History Identifying Information David Diaz is a 42 yo man with a history of schizoaffective disorder admitted medically for severe decompensation with malnutrition, sepsis and metabolic acidosis. Currently on a 305 commitment. Chief Complaint mute Subjective Subjective Chart reviewed, not communicating even with arrival of his parents and sister from [place]. They discussed with him possibility of PEG, he did not show any response. His parents also spoke with his ex- who felt that he did his best when at the [facility] with [employer] working though he reported during the time and afterwards that it was not a positive experience. Procedures Performed Operation Date: 12/24/22 16:30 <No data on this case meets the specified criteria> Physical Exam Vital Signs (Past 24 Hours) Last Vital Signs Temp 36.8 C 12/30/22 07:04 Pulse 74 12/30/22 07:04 Resp 18 12/30/22 07:04 BP 133/84 12/30/22 07:04 Pulse Ox 96 12/30/22 07:04 O2 Del Method Room Air 12/30/22 07:40 Results & Data ([facility]) Laboratory Results Laboratory Results - last 24 hr 12/30/22 12/30/22 08:54 08:54 WBC 6.94 RBC 4.72 Hgb 14.4 Hct 42.8 MCV 90.7 MCH 30.5 MCHC 33.6 RDW Std Deviation 41.1 RDW Coeff of [place] 12.4 Plt Count 210 MPV 10.6 Immature Gran % (Auto) 0.9 Neut % (Auto) 60.3 Lymph % (Auto) 28.1 [place] % (Auto) 7.1 Eos % (Auto) 2.6 Baso % (Auto) 1.0 Neut # (Auto) 4.19 Lymph # (Auto) 1.95 [place] # (Auto) 0.49 Eos # (Auto) 0.18 Baso # (Auto) 0.07 Immature Gran # (Auto) 0.06 Sodium 140 Potassium 5.0 D Chloride 108 H Carbon Dioxide 24 Anion Gap 8 BUN 11 Creatinine 0.85 Est Cr Clr Drug Dosing 131.9 Est GFR ( Amer) 124.6 Est GFR (Non-Af Amer) 107.5 BUN/Creatinine Ratio 12.9 Glucose 87 Calcium 9.2 Phosphorus 3.3 Magnesium 2.4 Current Inpatient Medications Current Inpatient Medications: Current Inpatient Medications Acetaminophen (Acetaminophen 325 Mg Tab) 650 mg PO Q6H PRN PRN Reason: Fever/Pain Stop: 01/06/23 21:19 Enoxaparin Sodium (Enoxaparin Inj 40 Mg/0.4 Ml Syr) 40 mg SQ QAM [facility] Stop: 01/17/23 08:59 Last Admin: 12/30/22 07:42 Dose: 40 mg Piperacillin Sod/Tazobactam (Sod 4.5 gm/ Dextrose) 120 mls @ 30 mls/hr IV Q8H [facility]; Protocol Stop: 01/03/23 21:59 Last Admin: 12/30/22 13:27 Dose: 30 mls/hr Amino Acids 2,113 ml/ (Nutrition (Parenteral)) 2,113 mls @ 88 mls/hr IV .Q24H [facility]; Protocol Stop: 12/31/22 15:59 Fat Emulsion-[place] Oil/Soybean Oil (Clinolipid 20% Iv Fat Emulsion) 250 mls @ 41.67 mls/hr IV .Q6H ONE Stop: 12/30/22 21:59 Miconazole Nitrate (Miconazole Nitrate Powder 85 Gm) 1 appln EXT PRN PRN PRN Reason: Affected Skin Folds Stop: 01/25/23 18:16 Last Admin: 12/28/22 03:34 Dose: 1 appln Miscellaneous (Stop Clinolipid) 1 each N/A DAILY@2200 OG Stop: 01/16/23 21:59 Last Admin: 12/29/22 16:11 Dose: Not Given Miscellaneous Information (Tpn/Ppn Consult Pharmacy) 1 each N/A UD PRN PRN Reason: Consult Stop: 01/15/23 11:13
--- NOTE | 2022-12-30 14:39 | Palliative Care Progress Note ---
Date of Service December 30, 2022 Assessment & Plan (1) Weakness generalized: (2) Altered mental status: (3) Encounter for assessment of decision-making capacity: Plan: This patient does not have capacity with respect to this particular decision- making task at this time. Patient is unable to articulate reasons for decision(s) and shows signs of cognitive impairment thatinterferes with his ability to meaningfully understand information and appreciate the risks of refusing treatment disposition recommendations. The patient's decision making capacity could change in the future given that their mental status and various other factors can certainly fluctuate over time. (References: Yola ADDISON. The Many Faces of Competency. [facility] Report. 1985;15(2):17-2. Lindsay Loaiza, Elena Esparza. Practical Ethics for Students, Interns and Residents. A Short Reference Manual. 2nd Edition. [employer]; 1997. Steve TAY, Russell Wren. A guide to assessing decision-making capacity. Paresh Clin J Med. 2004; 71:971-5.) (4) Palliative care by specialist: Plan: Met with family. Provided overview of Palliative Medicine, a subspecialty that provides specialized medical care for people living with a serious illness by offering a focus on quality of life. Palliative Medicine is often conflated with hospice: I advised patient/family that Palliative and hospice can be partners but we are not the same. It is important to understand the difference so that we may be informed, and not afraid. Palliative Medicine works to improve QOL through reduction of symptom burden/more control over their illness, for both the patient and family. Palliative medicine clinicians are board certified, specially-trained and another member of the patient's medical care team. We often provide an extra layer of support because our care is based on the needs of the patient, not the prognosis; as such, it's appropriate at any age/advancing stage of a serious illness and can be provided along with curative treatment. Palliative Medicine clinicians are also trained in advanced communication methodologies, to facilitate complex discussions about advanced illness planning, which are needed to help assure that the treatment choices match the patient's goals, aka delivering Goal Concordant care. Finally, we discussed that hospice is a visiting nurse service that focuses on care delivered at the very end of life for patients with terminal illness, with life expectancy less than 6 month. (5) Discussion about advance care planning held with family member: Plan: ACP family meeting held 1230-145pm with pt father/Jose, mother/Bryce and sister/Lorena along with Willow Cortez/hospitalist and Mili/Psychiatry. Dr. Garces reviewed the difficulty that has been encountered sorting out between patient's neurovegetative symptoms versus his paranoid because he is largely nonverbal and declines to interact, this has been challenging. In the past his history demonstrates no significant response to medications in addition to which she does not allow several interventions or lab. Currently he remains too high risk to try other medications due to their cardiotoxicity. He has had trials of IM Zyprexa in the past which was not that successful as well as MSA and patch, IM Haldol, as needed Ativan. During his 5-month long inpatient psych admission here, ultimately a discussion regarding ECT was broached and at that point patient said absolutely not and began engaging more and was started at that time on Lamictal with some mood stabilization. Family has been facing a discussion about whether or not a PICC should be placed. Father in particular inquired about whether or not Trintellix could be given by PEG and was advised that this drug cannot be crushed. Dr. Kowalski she provided additional details with regards to the medical update particularly that his blood cultures so far remain negative to date and that overall the issues concerning his lack of cooperation and communication are problematic to his excepting care as well as the delivery of that care. Because he is largely in bed and refusing to ambulate or change positions, there are significant concerns about his skin integrity and the risk of breakdown and infection. He also discussed the concerns regarding his nutritional status and family for now is agreeable to resuming PPN while awaiting evaluation for PEG. Family shares that they spoke with patient's ex- who shared with them the patient and she had never discussed any preferences or wishes for end-of-life measures. She also told them that she is also most successful setting he had had with a good outcome and his mental health was when he was admitted to the [facility] where the structured setting may have provided him the best framework to optimize. Mother notes that during this time he demonstrated a great amount of enjoyment from woodworking and even wrote a math paper which was published. His mother is now his legal guardian. Dr. Jones from psychiatry suggested that perhaps she reach out to his outpatient therapist to see if they had any additional thoughts of recommendations. Dr. Jones also reviewed in great detail that there is no evidence to support that David is catatonic. Multiple levels of assessment were conducted by multiple providers and do not align with catatonia. 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 She also advised that he was formally evaluated by neurology who also agreed that there is no catatonia and while he was an inpatient at the [facility], repeated evaluations there also confirmed he did not have catatonia. Of note was the specific attention to a discussion about the utilization of Ativan in catatonia which, if patient had true catatonia, would have shown a near immediate effect which was not noted for him. We reviewed that artificial nutrition and hydration (DEVANG) were originally developed to provide short-term support for patients who were acutely ill. Patients with advanced, life-limiting illness often lose the ability to eat and drink and/or interest in food and fluids. Like other medical interventions, it should be evaluated by weighing its benefits and burdens in light of the patient's clinical circumstances and goals of care. DEVANG may offer benefits when administered in the setting of acute, reversible illness, or as a component of chronic disease management, when the patient can appreciate the benefits of the treatment and significant burdens are not disproportionate. Near the end of life, some widely assumed benefits of DEVANG, such as alleviation of thirst, may be achieved by less invasive measures including good mouth care or providing ice chips. (Alfredo MAYS, Elvia DUMONTK, Wilman Thompson. after PEG: Results of the National Confidential Enquiry into Patient Outcome and . Gastrointest Endosc. 2008;68:223-227andLivier E, Lottie D, Eugenio S, et al. Parenteral hydration in patients with advanced cancer: A multicenter, double-blind, placebo-controlled randomized trial. J Clin Oncol. 2013;31:111-118.) We specifically discussed that artificial nutrition and hydration (DEVANG) by IV, will not prolong life or improve its quality, but will increase distressing symptoms such as shortness of breath, respiratory congestion, restlessness, nausea and vomiting. Educated family that fluids are often avoided at the very end of life to prevent volume overload in the lungs and other organs and our evidence to date demonstrates that data to suggest that IV hydration is unlikely to provide a meaningful benefit to most hospice patients with advanced cancer, even with mild to moderate dehydration. (Livier E, Lottie D, Eugenio S, et al. Parenteral hydration in patients with advanced cancer: a multicenter, double-blind, placebo-controlled randomized trial. J Clin Oncol. 2013;31(1):111-118. Doi:10.1200/JCO.[id number]) We reviewed the side effects of a feeding tube may include the followin.N/V/D/C 2.Skin Issues 3.Unintentional tears/perforation 4.Peritonitis 5.Obstructionordisplacement At their request, we also discussed CODE STATUS. I provided them with some additional information regarding CPR survival: Only about 10% of patients who have edo-ze-dfownulh sudden cardiac arrest survive to hospital discharge, with many survivors having neurologic impairment. This rate is even lower among patients with serious coexisting conditions, ie chance of survival to hospital discharge for in-hospital CPR in older people is low to moderate (15%) and decreases with age, comorbidities, performance status and frailty: for pts > 70 yo, more than half of the patients who initially survived resuscitation in the hospital before hospital discharge. The pooled survival to discharge after in-hospital CPR was 18% for patients between 70 and 79 years old, 15% for patients between 80 and 89 years old and 11% for patients of 90 years and older. (René CALLY, Brayan LJ, Tahmina F, et al. Trends in short- and long-term survival among [id number]-[id number] cardiac arrest patients alive at hospital arrival. Circulation 2014;130:3357-7999. AND Nishant C, Holger T, Ricardo R, et al. Performance of clinical risk scores to predict mortality and neurological outcome in cardiac arrest patients. Resuscitation 2019;136:21-29.) When asked by his father with regards to what medical recommendation I would make at this junction, I recommended that we continue to try to fix what is fixable and treat what is treatable, but should David have a natural i.e. his heart or his lungs stop working on their own, and this is equivalent to a natural and I would assure that he is comfortable and free from any suffering and distress through the dying process but I would not do things like CPR or aggressive resuscitation and artificial means of life support as I do not believe at this junction he would make a significant or meaningful recovery back to even the current baseline. His current performance status is nearing a 4. Overall, he is very high risk for additional complications of the ability, prolonged bedrest, and decreasing skin integrity. Plan * Family expressed tremendous appreciation for the time and discussions today. They are going to speak a little bit further before making any final decisions but would like to meet with the GI docs with regards to discussing PEG placement. They are leaning towards at least trying to see if a PEG can be placed. They acknowledge that he may get downstairs for the procedure and then refuse and feel that this at least would give them a sense of what direction he is going in. * I advised them that if patient declines PEG, then likely the most reasonable approach moving forward will be to discharge to a halfway unit for long-term care with a focus on comfort and quality of life. I do not believe he will make a substantial recovery without some willingness to engage in his care. I am hopeful that if he allows a PEG to be placed, then psychiatric medications can be administered via PEG and their effects can be seen in a relatively short amount of time and perhaps help patient to reengage with the world around him. If this does not happen however, then moving to a plan of care that is simply focus more on his comfort and quality of life without any escalation or aggressive medical interventions such as advanced life support, would be reasonable and in line with the decisions and behaviors he has demonstrated to date. Family verbalized agreement with this recommendation. They are going to speak more about it together and will let medical teams know their final decision. * TS 120 min * Please note: the above document was generated using voice recognition software. It may contain unintentional grammatical, syntax or spelling errors. Any formal questions or concerns about the content, text or information contained within the body of this dictation should be directly ad dressed to the provider for clarification. Thank you for allowing us to participate in the ongoing care of this patient. Please don't hesitate to call or page with any additional concerns. Dr. Odalis Aldana DNP Director, Palliative Care Admission and Anticipated Discharge Date Admission Date: November 03, 2022 Subjective no acute changes supine in bed non verbal cheeks flushed Review of Systems Review of Systems: Unobtainable due to mental health condition Physical Exam Physical Exam: deferred/pt declined Results & Data Vital Signs (Past 12 Hours) Vital Signs Temp Pulse Resp BP Pulse Ox O2 Del Method 12/30/22 07:40 Room Air 12/30/22 07:04 36.8 C 74 18 133/84 96 Room Air Laboratory Results data reviewed Diagnostic Findings data reviewed PG Care Time/CCT Total # of Minutes Spent Total Time Spent: 120 Total Time Spent with Patient: Total time spent is greater than 50% in coordination of care (as documented) at patient's floor/unit and/or counseling patient: I spent 120 minutes overall addressing this case: 15 in medical data review/discussion with referring provider(s) and/or preparation for the visit 10 in direct interaction with the patient []and/or [] 75 Advance Care Planning/Goals of Care discussions as detailed above in note (must be >16min) 5 in subsequent review and synthesis of assessment and plan 15 in communicating with other providers regarding the patient's case: cm, nursing, primary team, nutrition Prolonged Care Time Prolonged Care Time: Yes Advanced Care Planning 07034 Advanced Care Planning 30 Min 30660 Advanced Care Planning Additional 30 Min [place] [address] SUB INP/OBS CARE 3/50MIN Patient Type Established History Comprehensive Exam Comprehensive Medical Decision Making High Complexity Diagnoses Weakness generalized R53.1 Altered mental status R40.1 Altered mental status type: stupor Encounter for assessment of decision-making capacity Z01.89 Palliative care by specialist Z51.5 Discussion about advance care planning held with family member Z71.0 Additional Codes Advanced Care Planning - 96439 Advanced Care Planning 30 Min: 90515 Advanced Care Planning 30 Min ([id number]) Advanced Care Planning - 46428 Advanced Care Planning Additional 30 Min: 92693 Advanced Care Planning Additional 30 Min ([id number]) Prolonged Care Time - Prolonged Care Time: Yes ([id number]) (2) Altered mental status Altered mental status type: stupor Qualified Code(s): R40.1 - Stupor
[2022-12-30] MEDS ORDERED: PERIPHERAL TPN IV SCH (16:00)
[2022-12-30] MEDS ORDERED: [UNRECOGNIZED DRUG - OTHER] IV SCH (16:00)
[2022-12-30] MEDS ORDERED: CLINOLIPID 20% IV FAT EMULSION 250 ML IV ONE (16:00)
--- NOTE | 2022-12-30 18:08 | Hospitalist Progress Note ---
Date of Service December 30, 2022 Assessment & Plan (1) Schizoaffective disorder: (2) Unable to care for self: (3) Starvation ketoacidosis: (4) Severe malnutrition: Plan 42-year-old male with PMH of schizoaffective disorder, catatonia who presents after being found minimally responsive and covered in feces on a welfare check. He was brought to the hospital. Found to have starvation ketosis with anion gap metabolic acidosis. Schizoaffective disorder with catatonia Patient was admitted for 5 months from 02/2021 to 06/2021 in psychiatric unit here in the hospital. Had neurology evaluation including MRI brain which was normal. CT head without acute intracranial abnormality, tox screen negative Prolonged hospital stay Was evaluated by Psychiatry Per psych, pt still does not have capacity in spite of progress previously noted. Mother who is emergency guardian, will continue making decisions for pt. Had a prior hearing to appoint his mother legal guardian until a later hearing to determine if this will be permanent 12/02-Patient ate half of his breakfast however nothing further throughout the day. 12/03 -305 hearing approved. 12/07: Last PPN line and hence nutrition. He ate some of his lunch and some of his dinner on this day. 12/09- pt no responding to provider but is responsive to nursing, re evaluated pt twice with same response. His nurse Tato was able to get him to eat a few doritos, cookie, drank some water and 1/2 carton of ice team at 1528 12/10 - Did not eat 12/11 - Per RN he ate and drank 12/12 - Per RN, ate dinner well 12/13 - Declined food but drank some 12/14 - Drinks some. Not much eating 12/15 - Not eating. Per prior attending - On 12/15/22, I discussed with Dr Garces. She reported patient has been trialed on almost all meds without response and has nothing to offer at this time. Psych recommends ok to continue daytrana if h e eats but if goes days without eating, then daytrana should be stopped to avoid cardiac risks. Daytrana stopped 12/16/2212/17 - per RN no po intake 12/18- only sips of coke on 12/17, no intake today. 12/19 - no intake today per rn 12/20 - pt drank some orange juice in the morning per RN. 12/21 - no intake today per RN. 12/22 - continued to be nonverbal, no oral intake, PPN continues 12/23 - no intake, PPN continues, interdisciplinary team meeting with patient's legal guardian present - planning for PEG and SNF placement 12/24 - drank 375 mL of orange juice and ate half of grilled cheese and nibbled s ome cookies. 12/25 - couple of bite of cookie, most of his fruit, 150 ml of coke. 12/26 - notified by internal auditor that pt had a fever to 104 overnight, was tachycardic (HR in 130s) and hypotensive. Received a 1500cc bolus and currently on NSS@100. Was started on empiric IV Meropenem and Vancomycin. Pt was refusing labs and a second IV line so only one set of Blood Cx was obtained last night, with another set this AM. AM labs reveal an improved WBC from elevation the day prior. Chest XRAY concerning for possible pneumonia (?aspiration), urine not currently suggestive of infection. Email from his mother to dated 12/24/22 reviewed- Notes that she has many questions about the PEG tube and would like daily updates. Mother contacted via phone and advised of current infection, unsure source, being treated with empiric antibiotics. She noted that they will be visiting on ThursdayDec 29 and would like to defer further discussion of PEG tube placement until then. Advised that service would be in agreement to defer PEG tube or any tube placement at this time due to pt's current infection. She verbalized understanding. Continue current empiric abx, follow blood Cx. 12/27- Fever, tachycardia and BP improved today. Empiric Vancomycin and Meropenem discontinued, and pt transitioned to Zosyn. WBC improved. Phosphate was decreased today and repleted. Continue PPN. Mother updated, wanted update on labs. She was agreeable with plan. 12/28- Pt continues to remain stable, slightly tachycardic but no more fevers or hypotension. Continue with Zosyn and PPN. Mother called and updated. Will be he re tomorrow and would like to speak with provider while here. Expressed appreciation of care thus far. 12/29: Vitals are more stable, continue with Zosyn. Patient has not taken any food today. Patient's mother wanted PPN to be held today. She is still deciding on PEG tube. She wanted palliative care consult and ethics consult, both placed. 12/30: Remains afebrile, vital stable. On Zosyn (day 3) for suspected aspiration pneumonia. WBC 6.9 Multidisciplinary meeting held today with primary attending, psychiatry, palliative care, case management, patient's parents and sister. Agreeable to be fore with PEG tube. Severe malnutrition Vitamin D deficiency: Received PPN 11/20 -11/27 and one bag on 11/30 Patient continues to have very poor oral intake. See above. C/w PPN, monitor electrolytes, replete as appropriate. 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 intake which has been a big brent during his medical care. Interdisciplinary team meeting was done today with palliative care, psychiatry, patient's parent, patient's sister, casework manager. Parents are agreeable to PEG tube, GI follow-up likely tomorrow. They want parenteral nutrition until peg tube finalized or palliative approach finalized. Appreciate palliative's effort and time. On exam, patient on room air, noncommunicative. Bilateral axilla with likely excoriation from bodily secretion that he has been soiled with due to his lack of cooperation w/ personal hygiene. RN has been notified to keep the area clean and dry which they are doing, and apply vaseline 2-3 times a day. Will continue to follow. rest of the exam as above. I have seen and examined the patient and have discussed the case with the provider above. I agree with the assessment and plan as stated. Subjective Follow-up for schizoaffective disorder with catatonia. Patient seen examined. Remains nonverbal, no PO intake. No acute distress, offers no complaints. Physical Exam Constitutional: WD/WN, vitals as above no acute distress Respiratory: normal respiratory effort, lungs clear to auscultation Cardiovascular: Rate/Rhythm: regular rate and regular rhythm Vessels: normal peripheral pulses Extremities: no edema Gastrointestinal (Abdomen): Percussion/Palpation: abdomen soft; abdomen nontender Skin: no rashes, warm and dry Neurologic: no focal motor deficits Psychiatric: Nonverbal, does not engage in conversation or interaction Results & Data Results & Data Vital Signs (Past 12 Hours) Vital Signs Temp Pulse Resp BP BP Pulse Ox O2 Del Method 12/30/22 16:24 36.7 C 76 20 107/71 97 Room Air 12/30/22 07:40 Room Air 12/30/22 07:04 36.8 C 74 18 133/84 96 Room Air Laboratory Results Short CBC 12/30/22 Range/Units 08:54 WBC 6.94 (4.8-10.8) K/ul Hgb 14.4 (14.0-18.0) g/dl Hct 42.8 (42.0-52.0) % Plt Count 210 (130-400) K/uL BMP 12/30/22 08:54 Sodium 140 Potassium 5.0 D Chloride 108 H Carbon Dioxide 24 BUN 11 Creatinine 0.85 Glucose 87 Calcium 9.2
[2022-12-30] MEDS: STOP CLINOLIPID SCH (22:53)
[2022-12-31] MEDS: PIPERACILLIN/TAZOBACTAM 4.5 GM in DEXTROSE 5% 100 ML IV SCH ×3 (06:15→22:08)
[2022-12-31 08:57] LABS: BUN Creatinine Ratio 17.6 (10-20); Bilirubin,Total 0.9 mg/dl (0.2-1.0); Calcium 9.1 mg/dl (8.6-10.3); Creatinine Clr Calc Pharmacy 131.9 ml/min; Est GFR (African American) 124.6 ml/min; Est GFR (Non-African American) 107.5 ml/min; Magnesium 2.2 mg/dl (1.7-2.4); Phosphorus 3.2 mg/dl (2.5-4.9)
[2022-12-31] MEDS: ENOXAPARIN INJ 40 MG/0.4 ML SYR SQ SCH (10:07)
--- NOTE | 2022-12-31 10:32 | Gastroenterology Progress Note ---
Date of Service December 31, 2022 Assessment & Plan (1) Severe malnutrition: (2) Schizoaffective disorder, chronic condition with acute exacerbation: Plan: Pt is a 42 yo male w Schizoaffective disorder, found by social welfare research worker at home catatonic and covered w feces; has been admitted in this hospital for the past 59 days. He is currently awake but unresponsive and not communicating. Nutrition is maintained by PPN. Apparently attempts w NG feeding tube placements were made last week but pt could not tolerate placement. Our GI team (Danielle Day and Dr. Emily Soto) had also discussed indications, risks vs benefits of PEG tube placement with pt's mother last week, however at that time mother was undecided. I called and spoke w pt's mother this morning who informed me that she had conversations with Psych, Palliative care teams, aware risks vs benefits of PEG tube placement, and decided that she would like to proceed with PEG tube placement. I informed her that if pt had PEG tube for nutrition support, it also does not guarantee his prognosis or reversal of his current mental state. She is aware of this. I will discuss pt's case with my attending physician Dr. Daniel Cheung. Admission and Anticipated Discharge Date Admission Date: November 03, 2022 Supervising Physician Co-Signing Physician Notes I have personally seen and examined the patient with ALFREDO Contreras. Her note reflects my exam and findings. I agree with her impression and plan. Use of PEG tube in this clinical setting is not shown to extend life and has been associated with life threatening complications. Will discuss with family. Daniel Cheung M.D. Subjective Pt awake, but not responsive to my attempt to converse with him. Review of Systems Review of Systems: Unobtainable due to mental health condition Physical Exam Constitutional: WD/WN, vitals as above comfortable Eyes: PERRL, conjunctivae normal, anicteric sclerae ENMT: external ear and nose normal, oropharynx normal Respiratory: Normal respiratory effort, diminished overall lung sounds Cardiovascular: RRR, no murmur, no edema Gastrointestinal (Abdomen): normal bowel sounds, soft, nontender, no hepatosplenomegaly Skin: no rashes, warm and dry Psychiatric: Awake, not responsive Lymphatic: no lymphedema Results & Data Vital Signs (Past 12 Hours) Vital Signs Temp Pulse Resp BP BP Pulse Ox O2 Del Method 12/31/22 07:17 37.5 C 87 18 113/77 97 Room Air 12/30/22 22:53 36.9 C 106 H 20 120/94 100 Room Air
--- NOTE | 2022-12-31 15:39 | Communication Note ---
Date of Service: December 31, 2022 ethics consult note: asked to see by dr garcia, discussed case, pt seen. today ate a little bit of a cookie and had a few sips of orange juice. talked w family who are opting to proceed with PEG tube and noted they need guidance on POLST and what to do/what not to do as things move forward. met with palliative yesterday, really appreciated the help and guidance, and really got along well "4 pillars of medical ethics" input autonomy: right now pt does not have capacity, but has family acting as his surrogate decision makers. they appear to be trying to act in accordance to what his wishes would be, and in his best interest. at this point, they reflect his autonomy beneficence/nonmaleficence: each decision obviously is being weighed by its risk/benefit balance specific to the patient, and the family is trying to weigh the same risk/benefit to each issue moving forward; they appreciated the palliative team guidance with this and felt that ongoing palliative assistance would be extremely helpful in weighing future decisions justice: despite being in the hospital for a very lengthy stay, and an ongoing very difficult psychiatric case, the pillar of justice weighs large in his case as sometimes situations can be more rare, and take more time, and don't fit into protocols or typical treatment plans as well as most conditions; would urge the team to not feel pressure/emery despite his duration of illness given the rare nature and high complexity of his case. family needs being addressed by palliative; no true ethical conundrums at play currently.
[2022-12-31] MEDS ORDERED: [UNRECOGNIZED DRUG - OTHER] IV SCH (16:00)
[2022-12-31] MEDS ORDERED: PERIPHERAL TPN IV SCH (16:00)
[2022-12-31] MEDS ORDERED: CLINOLIPID 20% IV FAT EMULSION 250 ML IV ONE (16:00)
--- NOTE | 2022-12-31 16:39 | Hospitalist Progress Note ---
Date of Service December 31, 2022 Assessment & Plan (1) Schizoaffective disorder: (2) Unable to care for self: (3) Starvation ketoacidosis: (4) Severe malnutrition: Plan 42-year-old male with PMH of schizoaffective disorder, catatonia who presents after being found minimally responsive and covered in feces on a welfare check. He was brought to the hospital. Found to have starvation ketosis with anion gap metabolic acidosis. Schizoaffective disorder with catatonia Patient was admitted for 5 months from 02/2021 to 06/2021 in psychiatric unit here in the hospital. Had neurology evaluation including MRI brain which was normal. CT head without acute intracranial abnormality, tox screen negative Prolonged hospital stay Was evaluated by Psychiatry Per psych, pt still does not have capacity in spite of progress previously noted. Mother who is emergency guardian, will continue making decisions for pt. Had a prior hearing to appoint his mother legal guardian until a later hearing to determine if this will be permanent 12/02-Patient ate half of his breakfast however nothing further throughout the day. 12/03 -305 hearing approved. 12/07: Last PPN line and hence nutrition. He ate some of his lunch and some of his dinner on this day. 12/09- pt no responding to provider but is responsive to nursing, re evaluated pt twice with same response. His nurse Tato was able to get him to eat a few doritos, cookie, drank some water and 1/2 carton of ice team at 1528 12/10 - Did not eat 12/11 - Per RN he ate and drank 12/12 - Per RN, ate dinner well 12/13 - Declined food but drank some 12/14 - Drinks some. Not much eating 12/15 - Not eating. Per prior attending - On 12/15/22, I discussed with Dr Garces. She reported patient has been trialed on almost all meds without response and has nothing to offer at this time. Psych recommends ok to continue daytrana if h e eats but if goes days without eating, then daytrana should be stopped to avoid cardiac risks. Daytrana stopped 12/16/2212/17 - per RN no po intake 12/18- only sips of coke on 12/17, no intake today. 12/19 - no intake today per rn 12/20 - pt drank some orange juice in the morning per RN. 12/21 - no intake today per RN. 12/22 - continued to be nonverbal, no oral intake, PPN continues 12/23 - no intake, PPN continues, interdisciplinary team meeting with patient's legal guardian present - planning for PEG and SNF placement 12/24 - drank 375 mL of orange juice and ate half of grilled cheese and nibbled s ome cookies. 12/25 - couple of bite of cookie, most of his fruit, 150 ml of coke. 12/26 - notified by manager of medical that pt had a fever to 104 overnight, was tachycardic (HR in 130s) and hypotensive. Received a 1500cc bolus and currently on NSS@100. Was started on empiric IV Meropenem and Vancomycin. Pt was refusing labs and a second IV line so only one set of Blood Cx was obtained last night, with another set this AM. AM labs reveal an improved WBC from elevation the day prior. Chest XRAY concerning for possible pneumonia (?aspiration), urine not currently suggestive of infection. Email from his mother to dated 12/24/22 reviewed- Notes that she has many questions about the PEG tube and would like daily updates. Mother contacted via phone and advised of current infection, unsure source, being treated with empiric antibiotics. She noted that they will be visiting on ThursdayDec 29 and would like to defer further discussion of PEG tube placement until then. Advised that service would be in agreement to defer PEG tube or any tube placement at this time due to pt's current infection. She verbalized understanding. Continue current empiric abx, follow blood Cx. 12/27- Fever, tachycardia and BP improved today. Empiric Vancomycin and Meropenem discontinued, and pt transitioned to Zosyn. WBC improved. Phosphate was decreased today and repleted. Continue PPN. Mother updated, wanted update on labs. She was agreeable with plan. 12/28- Pt continues to remain stable, slightly tachycardic but no more fevers or hypotension. Continue with Zosyn and PPN. Mother called and updated. Will be he re tomorrow and would like to speak with provider while here. Expressed appreciation of care thus far. 12/29: Vitals are more stable, continue with Zosyn. Patient has not taken any food today. Patient's mother wanted PPN to be held today. She is still deciding on PEG tube. She wanted palliative care consult and ethics consult, both placed. 12/30: Multidisciplinary meeting held with primary attending, psychiatry, palliative care, case management, patient's parents and sister. Agreeable with PEG tube. 12/31: Patient took a few bites of a cookie today. PPN continues. GI to discuss with family regarding PEG tube. Aspiration pneumonia See events above from 12/26 On Zosyn (day 4) Remains afebrile Severe malnutrition Vitamin D deficiency: Received PPN 11/20 -11/27 and one bag on 11/30 Patient continues to have very poor oral intake. See above. C/w PPN, monitor electrolytes, replete as appropriate. 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 intake which has been a big brent during his medical care. Interdisciplinary team meeting was done 12/30 with palliative care, psychiatry, patient's parent, patient's sister, casey saw operator. Parents are agreeable to PEG tube, GI following up. They want parenteral nutrition until peg tube finalized or palliative approach finalized. Appreciate palliative's effort and time. Family wanted ethics committee on board, which had been consulted after persistent wish from the family. Appreciate ethics eval. On exam, patient on room air, noncommunicative. Bilateral axilla with likely excoriation from bodily secretion that he has been soiled with due to his lack of cooperation w/ personal hygiene - appears stable. RN has been notified to keep the area clean and dry which they are doing, and apply vaseline 2-3 times a day. Will continue to follow. rest of the exam as above. I have seen and examined the patient and have discussed the case with the provider above. I agree with the assessment and plan as stated. Subjective Follow-up for schizoaffective disorder with catatonia. Patient seen and examined. Continues to be nonverbal with minimal p.o. intake. Nutrition being managed with PPN. Does not appear to be in any acute distress, offers no complaints. Physical Exam Constitutional: WD/WN, vitals as above no acute distress Respiratory: normal respiratory effort; no respiratory distress Auscultation: + diminished lung sounds Cardiovascular: Rate/Rhythm: regular rate and regular rhythm Vessels: normal peripheral pulses Extremities: no edema Gastrointestinal (Abdomen): Percussion/Palpation: abdomen soft; abdomen nontender Skin: no rashes, warm and dry Neurologic: no focal motor deficits Psychiatric: Nonverbal, does not engage Results & Data Results & Data Vital Signs (Past 12 Hours) Vital Signs Temp Pulse Resp BP Pulse Ox O2 Del Method 12/31/22 07:17 37.5 C 87 18 113/77 97 Room Air Laboratory Results BMP 12/31/22 07:54 Sodium 139 Potassium 4.0 Chloride 105 Carbon Dioxide 25 BUN 15 Creatinine 0.85 Glucose 90 Calcium 9.1 Liver Function 12/31/22 Range/Units 07:54 Total Bilirubin 0.9 (0.2-1.0) mg/dl AST 28 (13-39) U/L Alkaline Phosphatase 77 (34-104) U/L
[2022-12-31] MEDS: STOP CLINOLIPID SCH (22:08)
[2023-01-01] MEDS: PIPERACILLIN/TAZOBACTAM 4.5 GM in DEXTROSE 5% 100 ML IV SCH ×3 (05:36→22:02)
[2023-01-01 09:54] LABS: Albumin Level 3.5 gm/dl (3.4-5.0); BUN Creatinine Ratio 13.6 (10-20); Bilirubin Direct 0.1 mg/dl (0-0.2); Bilirubin,Total 0.7 mg/dl (0.2-1.0); Calcium 8.8 mg/dl (8.6-10.3); Est GFR (African American) 127.1 ml/min; Est GFR (Non-African American) 109.6 ml/min; Magnesium 2.4 mg/dl (1.7-2.4); Potassium 3.7 mmol/L (3.5-5.1)
[2023-01-01] MEDS: ENOXAPARIN INJ 40 MG/0.4 ML SYR SQ SCH (10:06)
--- NOTE | 2023-01-01 14:33 | Gastroenterology Progress Note ---
Date of Service January 01, 2023 Assessment & Plan Admission and Anticipated Discharge Date Admission Date: November 03, 2022 Subjective I had a lengthy discussion today with the patient's mother, father, and sister. I went over the details about risk and benefits of the placement of a percutaneous endoscopically placed gastric tube. Due to the patient's advanced psychiatric disease he has not been taking hardly any let alone adequate nutrition and has been in a catabolic state. As the patient's legal guardian, the mother is hoping that getting the patient's nutrition will enable psychiatry to use medications that will help his condition. This was outlined in a communication note by the psychiatry department. We will attempt to place PEG tube tomorrow. Will hold heparin overnight. Repeat INR. N.p.o. after midnight. Results & Data Vital Signs (Past 12 Hours) Vital Signs Temp Pulse Resp BP Pulse Ox O2 Del Method 01/01/23 07:20 37.5 C 84 16 113/73 95 Room Air
[2023-01-01 15:04] LABS: INR 1.1 (0.9-1.1); Prothrombin Time 12.1 Seconds (9.0-12.0)
[2023-01-01] MEDS ORDERED: [UNRECOGNIZED DRUG - OTHER] IV SCH (16:00)
[2023-01-01] MEDS ORDERED: PERIPHERAL TPN IV SCH (16:00)
[2023-01-01] MEDS ORDERED: CLINOLIPID 20% IV FAT EMULSION 250 ML IV ONE (16:00)
--- NOTE | 2023-01-01 16:20 | Hospitalist Progress Note ---
Date of Service January 01, 2023 Assessment & Plan (1) Schizoaffective disorder: (2) Unable to care for self: (3) Starvation ketoacidosis: (4) Severe malnutrition: Plan 42-year-old male with PMH of schizoaffective disorder, catatonia who presents after being found minimally responsive and covered in feces on a welfare check. He was brought to the hospital. Found to have starvation ketosis with anion gap metabolic acidosis. Schizoaffective disorder with catatonia Patient was admitted for 5 months from 02/2021 to 06/2021 in psychiatric unit here in the hospital. Had neurology evaluation including MRI brain which was normal. CT head without acute intracranial abnormality, tox screen negative Prolonged hospital stay Was evaluated by Psychiatry Per psych, pt still does not have capacity in spite of progress previously noted. Mother who is emergency guardian, will continue making decisions for pt. Had a prior hearing to appoint his mother legal guardian until a later hearing to determine if this will be permanent 12/02-Patient ate half of his breakfast however nothing further throughout the day. 12/03 -305 hearing approved. 12/07: Last PPN line and hence nutrition. He ate some of his lunch and some of his dinner on this day. 12/09- pt no responding to provider but is responsive to nursing, re evaluated pt twice with same response. His nurse Tato was able to get him to eat a few doritos, cookie, drank some water and 1/2 carton of ice team at 1528 12/10 - Did not eat 12/11 - Per RN he ate and drank 12/12 - Per RN, ate dinner well 12/13 - Declined food but drank some 12/14 - Drinks some. Not much eating 12/15 - Not eating. Per prior attending - On 12/15/22, I discussed with Dr Garces. She reported patient has been trialed on almost all meds without response and has nothing to offer at this time. Psych recommends ok to continue daytrana if h e eats but if goes days without eating, then daytrana should be stopped to avoid cardiac risks. Daytrana stopped 12/16/2212/17 - per RN no po intake 12/18- only sips of coke on 12/17, no intake today. 12/19 - no intake today per rn 12/20 - pt drank some orange juice in the morning per RN. 12/21 - no intake today per RN. 12/22 - continued to be nonverbal, no oral intake, PPN continues 12/23 - no intake, PPN continues, interdisciplinary team meeting with patient's legal guardian present - planning for PEG and SNF placement 12/24 - drank 375 mL of orange juice and ate half of grilled cheese and nibbled s ome cookies. 12/25 - couple of bite of cookie, most of his fruit, 150 ml of coke. 12/26 - notified by production planning supervisor that pt had a fever to 104 overnight, was tachycardic (HR in 130s) and hypotensive. Received a 1500cc bolus and currently on NSS@100. Was started on empiric IV Meropenem and Vancomycin. Pt was refusing labs and a second IV line so only one set of Blood Cx was obtained last night, with another set this AM. AM labs reveal an improved WBC from elevation the day prior. Chest XRAY concerning for possible pneumonia (?aspiration), urine not currently suggestive of infection. Email from his mother to dated 12/24/22 reviewed- Notes that she has many questions about the PEG tube and would like daily updates. Mother contacted via phone and advised of current infection, unsure source, being treated with empiric antibiotics. She noted that they will be visiting on ThursdayDec 29 and would like to defer further discussion of PEG tube placement until then. Advised that service would be in agreement to defer PEG tube or any tube placement at this time due to pt's current infection. She verbalized understanding. Continue current empiric abx, follow blood Cx. 12/27- Fever, tachycardia and BP improved today. Empiric Vancomycin and Meropenem discontinued, and pt transitioned to Zosyn. WBC improved. Phosphate was decreased today and repleted. Continue PPN. Mother updated, wanted update on labs. She was agreeable with plan. 12/28- Pt continues to remain stable, slightly tachycardic but no more fevers or hypotension. Continue with Zosyn and PPN. Mother called and updated. Will be he re tomorrow and would like to speak with provider while here. Expressed appreciation of care thus far. 12/29: Vitals are more stable, continue with Zosyn. Patient has not taken any food today. Patient's mother wanted PPN to be held today. She is still deciding on PEG tube. She wanted palliative care consult and ethics consult, both placed. 12/30: Multidisciplinary meeting held with primary attending, psychiatry, palliative care, case management, patient's parents and sister. Agreeable with PEG tube. 12/31: Patient took a few bites of a cookie today. PPN continues. GI to discuss with family regarding PEG tube. 01/01: Per discussion between GI and family, moving forward with PEG placement tomorrow. NPO @ MN, hold SQ heparin, INR Aspiration pneumonia See events above from 12/26 On Zosyn (day 4) Remains afebrile Severe malnutrition Vitamin D deficiency: Received PPN 11/20 -11/27 and one bag on 11/30 Patient continues to have very poor oral intake. See above. C/w PPN, monitor electrolytes, replete as appropriate. 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 intake which has been a big brent during his medical care. Interdisciplinary team meeting was done 12/30 with palliative care, psychiatry, patient's parent, patient's sister, family service caseworker. Parents are agreeable to PEG tube, GI following up - likely peg placement sara. Family want parenteral nutrition until peg tube finalized or palliative approach finalized. Pt has declined PICC line placement several times. Appreciate palliative's effort and time. Family wanted ethics committee on board, which had been consulted after persistent wish from the family. Appreciate ethics eval. On exam, patient on room air, noncommunicative. Bilateral axilla with likely excoriation from bodily secretion that he has been soiled with due to his lack of cooperation w/ personal hygiene - appears stable. RN has been notified to keep the area clean and dry which they are doing, and apply vaseline 2-3 times a day. Will continue to follow. rest of the exam as above. I have seen and examined the patient and have discussed the case with the provider above. I agree with the assessment and plan as stated. Subjective Seen and examined in follow-up for schizoaffective disorder with catatonia. Non- verbal, opens eyes during exam. PPN running. Appears comfortable, resting. Does not communicate any complaints. Review of Systems Review of Systems: Unobtainable due to mental health condition Physical Exam Physical Exam: Gen: WD/WN, NAD, lying in bed, non-verbal, does not engage with questions or follow commands HEENT: Normocephalic, atraumatic, conjunctivae moist, sclerae anicteric, mucous membranes moist Lung: Clear to Auscultation bilaterally but diminished, no wheezes/rales/rhonchi Heart: Regular rate, regular rhythm, no murmurs, rubs, or gallops Abdomen: Soft, NT, ND +BS x 4 Extremities: no edema Skin: Warm, no rash Results & Data Results & Data Vital Signs (Past 12 Hours) Vital Signs Temp Pulse Resp BP Pulse Ox O2 Del Method 01/01/23 07:20 37.5 C 84 16 113/73 95 Room Air Laboratory Results BMP 01/01/23 09:09 Sodium 141 Potassium 3.7 Chloride 108 H Carbon Dioxide 28 BUN 11 Creatinine 0.81 Glucose 112 H Calcium 8.8 Liver Function 01/01/23 Range/Units 09:09 Total Bilirubin 0.7 (0.2-1.0) mg/dl Direct Bilirubin 0.1 (0-0.2) mg/dl AST 20 (13-39) U/L ALT 45 (7-52) U/L Alkaline Phosphatase 71 (34-104) U/L Albumin 3.5 (3.4-5.0) gm/dl Diagnostic Findings Chest X-Ray 11/03/22 15:42 XR chest 1V portable CLINICAL HISTORY: Fever. COMPARISON STUDY: Chest radiograph May 18, 2022. FINDINGS: Lung volumes are normal. Minimal left basilar opacity is similar to prior exams and favors atelectasis. There is no pneumothorax or pleural effusion. Cardiac size is normal. Mediastinal contours are normal. There is no evidence for pulmonary edema. IMPRESSION: 1. No acute cardiopulmonary findings. 2. Mild left basilar opacity, similar to prior study. This favors atelectasis. ACT 112: Negative or not required by law. Electronically signed by: Ed Abrams M.D. 11/03/2022 4:[address] 11/03/22 15:42 CT head/brain wo con CLINICAL HISTORY: altered Technique: Contiguous axial CT images of the head were acquired from the base of the skull to the vertex without intravenous contrast administration. Images were viewed in brain, subdural and bone windows. Automated dose lowering techniques and/or adjustment according to patient size were utilized for this exam. Comparison: Comparison is made to the head 10/30/2022 Findings: The ventricles, basal cisterns, and cerebral sulci are normal. There is no acute intracranial hemorrhage or evidence of acute territorial infarction. Neither mass effect, shift of the midline structures, nor abnormal extra-axial fluid collections are shown. Imaged portions of the paranasal sinuses and mastoid air cells are clear. The orbits appear normal. There are no acute fractures of the calvaria or scalp swelling. Impression: No acute intracranial hemorrhage, no evidence of acute territorial infarction or other acute intracranial disease process. ACT 112: Negative or not required by law. Electronically signed by: Wade Christensen M.D. 11/03/2022 5:19 PM Chest X-Ray 12/25/22 15:43 XR chest 1V portable CLINICAL HISTORY: ro infection TECHNIQUE: Single frontal radiograph of the chest was obtained. Comparison: Comparison is made to chest radiograph 11/03/2022 FINDINGS: No lines and tubes are seen. The cardiomediastinal silhouette is normal. Left lung base airspace opacity is seen. Left effusion cannot be entirely excluded. IMPRESSION: Left lung base airspace opacity likely represents atelectasis with or without superimposed aspiration/pneumonia. ACT 112: Negative or not required by law. Electronically signed by: Wade Christensen M.D. 12/25/2022 4:33 PM
[2023-01-01] MEDS: STOP CLINOLIPID SCH (22:02)
[2023-01-02] MEDS: PIPERACILLIN/TAZOBACTAM 4.5 GM in DEXTROSE 5% 100 ML IV SCH ×3 (05:44→23:03)
--- NOTE | 2023-01-02 09:55 | Communication Note ---
Date of Service: January 02, 2023 Pt opens eyes when name called but otherwise unresponsive and not following commands. Laying in bed. He is n.p.o. currently, Lovenox held. INR 1.1. Plan is to proceed with PEG tube placement via endoscopy by Dr. Daniel Cheung this afternoon.
--- NOTE | 2023-01-02 13:33 | Psychiatric Progress Note ---
Date of Service January 02, 2023 Impression / Recommendations Impression Remains consistent with schizoaffective disorder and/or severe neurovegetative depression and/or factitious/dependent aspect with ongoing minimal po intake and overall lack of verbal engagement. Has been largely treatment refractory to all prior antipsychotic and psychiatric medication trials especially when not agreeable to taking po medication. He remains on an extended involuntary psychiatric commitment. Plan is for PEG placement this afternoon, if successful then I would support use of po medications (such as antidepressant trial and/or abilify) via PEG if his mother, who has guardianship, supports this and as opinion for psychiatric medication over objection for treatment of suspected depression. Overall, I spent a total of 25 minutes with this case including review of chart records, review of labwork, discussion with RN and documentation in the electronic health record. (1) Malnutrition due to starvation: (2) Schizoaffective disorder, depressive type: Plan -Could consider use of po antidepressant medications and/or abilify crushed and given via PEG once this is placed and ensuring nutritional status is stable Interval History Identifying Information David Diaz is a 42 yo man with a history of schizoaffective disorder admitted medically for severe decompensation with malnutrition, sepsis and metabolic acidosis. Currently on a 305 commitment. Chief Complaint mute Subjective Subjective Patient was seen & assessed and interval progress reviewed. Lying in bed this morning with eyes open but will not make eye contact, mute. Having PEG procedure this afternoon. Procedures Performed Operation Date: 01/02/23 16:30 <No data on this case meets the specified criteria> Physical Exam Psychiatric alert, everts gaze,mute Vital Signs (Past 24 Hours) Last Vital Signs Temp 36.8 C 01/02/23 13:19 Pulse 93 H 01/02/23 13:19 Resp 16 01/02/23 13:19 BP 114/72 01/02/23 13:19 Pulse Ox 97 01/02/23 13:19 O2 Del Method Room Air 01/02/23 13:19 Results & Data ([facility]) Laboratory Results Laboratory Results - last 24 hr 01/01/23 14:17 PT 12.1 H INR 1.1 Current Inpatient Medications Current Inpatient Medications: Current Inpatient Medications Acetaminophen (Acetaminophen 325 Mg Tab) 650 mg PO Q6H PRN PRN Reason: Fever/Pain Stop: 01/06/23 21:19 Enoxaparin Sodium (Enoxaparin Inj 40 Mg/0.4 Ml Syr) 40 mg SQ QAM [facility] Stop: 01/17/23 08:59 Last Admin: 01/01/23 10:06 Dose: 40 mg Piperacillin Sod/Tazobactam (Sod 4.5 gm/ Dextrose) 120 mls @ 30 mls/hr IV Q8H [facility]; Protocol Stop: 01/03/23 21:59 Last Infusion: 01/02/23 11:10 Dose: Infused Amino Acids 2,120 ml/ (Nutrition (Parenteral)) 2,120 mls @ 89 mls/hr IV .[id number] [facility]; Protocol Stop: 01/02/23 15:49 Last Admin: 01/01/23 16:54 Dose: 89 mls/hr Amino Acids 2,120 ml/ (Nutrition (Parenteral)) 2,120 mls @ 88.3 mls/hr IV .Q24H [facility]; Protocol Stop: 01/03/23 15:59 Fat Emulsion-Exline Oil/Soybean Oil (Clinolipid 20% Iv Fat Emulsion) 250 mls @ 41.67 mls/hr IV .Q6H ONE Stop: 01/02/23 21:59 Miconazole Nitrate (Miconazole Nitrate Powder 85 Gm) 1 appln EXT PRN PRN PRN Reason: Affected Skin Folds Stop: 01/25/23 18:16 Last Admin: 12/28/22 03:34 Dose: 1 appln Miscellaneous (Stop Clinolipid) 1 each N/A DAILY@2200 OG Stop: 01/16/23 21:59 Last Admin: 01/01/23 22:02 Dose: 1 each Miscellaneous Information (Tpn/Ppn Consult Pharmacy) 1 each N/A UD PRN PRN Reason: Consult Stop: 01/15/23 11:13
--- NOTE | 2023-01-02 13:37 | Anesthesiology Consultation ---
Date of Service January 02, 2023 Assessment & Plan Chart Review Chart Review: Acceptable Risk for Surgery Consults Requested none ASA ASA4 Proposed Anesthesia Anesthesia Type: MAC Risk / Benefits Reviewed With: PT / POA / Parent / Guardian, Accepts Plan and Informed Consent Obtained Additional Comments: Discussed anesthesia plan and consented patient's mother. History Surgery Operation Date: 01/02/23 16:30 Proposed Procedures p EGD with Gastric Tube Placement - Daniel Cheung MD Height/Weight Height: 5 ft 10 in Weight: 97.9 kg Allergies Allergy/AdvReac Type Severity Reaction Status Date / Time No Known Allergies Allergy Verified 11/03/22 17:28 Medications Home Medications Medication Instructions Recorded Confirmed Last Taken benztropine 0.5 mg tablet 0.5 mg PO HS 08/14/22 11/03/22 Unknown haloperidol 5 mg tablet 5 mg PO BID 08/14/22 11/03/22 Unknown lamotrigine 25 mg tablet 50 mg PO BID 08/14/22 11/03/22 Unknown venlafaxine 150 mg 150 mg PO QAM 08/14/22 11/03/22 Unknown capsule,extended release 24 hr Active Medications Generic Name Dose Route Start Last Admin Trade Name Freq PRN Reason Stop Dose Admin Enoxaparin Sodium 40 mg 12/18/22 09:00 01/01/23 10:06 Enoxaparin Inj 40 Mg/0.4 Ml Syr SQ 01/17/23 08:59 40 mg QAM OG Administration Piperacillin Sod/Tazobactam 120 mls @ 30 mls/hr 12/27/22 22:00 01/02/23 11:10 Sod 4.5 gm/ Dextrose IV 01/03/23 21:59 Infused Q8H OG Infusion Protocol Amino Acids 2,120 ml/ 2,120 mls @ 89 mls/hr 01/01/23 16:00 01/01/23 16:54 Nutrition (Parenteral) IV 01/02/23 15:49 89 mls/hr .[id number] OG Administration Protocol Miconazole Nitrate 1 appln 12/26/22 18:17 12/28/22 03:34 Miconazole Nitrate Powder 85 Gm EXT 01/25/23 18:16 1 appln PRN PRN Administration Affected Skin Folds Miscellaneous 1 each 12/17/22 22:00 01/01/23 22:02 Stop Clinolipid N/A 01/16/23 21:59 1 each DAILY@2200 OG Administration NPO Date Last Intake of Fluids: 01/01/23 Time Last Intake of Fluids: 12:00 Last Intake of Fluids Comment: unknown Date Last Intake of Solids: 01/01/23 Time Last Intake of Solids: 12:00 Last Intake of Solids Comment: unknown Past Medical History Medical History Anxiety Avolition Bipolar disorder Bipolar disorder with depression Catatonia Depression Mutism Noncompliance Obesity Psychosis Schizoaffective disorder Exercise / Class Metabolic Activity IV < 2 Limit ADL/Bedbound Past Family History Family History Other Family history unknown Past Surgical History Surgical History No pertinent past surgical history Past Anesthesia History No Hx of Anesthesia Complications and No Family Hx of Anesthesia Complications History of PONV No Hx of PONV (per family) and No Hx of Motion Sickness (per family) Social History Smoking Status: Current some day smoker Review of Systems ROS Unobtainable: All systems reviewed & are unremarkable except as noted in HPI & below Physical Exam Vital Signs Last Vital Signs Temp 36.8 C 01/02/23 13:19 Pulse 93 H 01/02/23 13:19 Resp 16 01/02/23 13:19 BP 114/72 01/02/23 13:19 Pulse Ox 97 01/02/23 13:19 O2 Del Method Room Air 01/02/23 13:19 Constitutional no acute distress ENMT Mouth: no TMJ abnormality Thyromental Distance: > or= 3.5 Finger Breadths Mallampati Class: Other (deferred, patient does not follow commands ) Neck normal visual inspection and trachea midline; neck extension not limited Respiratory normal respiratory effort Auscultation: lungs clear to auscultation bilaterally Cardiovascular Rate/Rhythm: regular rate and regular rhythm Heart Sounds: no murmur Musculoskeletal Spine: normal cervical ROM Extremities: full ROM of extremities Neurologic moves all extremities Psychiatric does not respond to verbal stimulation Testing Laboratory Results 12/30/22 08:54 01/01/23 09:09 PT 12.1 Seconds (9.0-12.0) H 01/01/23 14:17 INR 1.1 (0.9-1.1) 01/01/23 14:17 APTT 49.7 Seconds (21.0-31.0) H* 11/03/22 14:55 Urine Color Yellow 12/27/22 11:42 Urine Appearance Turbid (Clear) A 12/27/22 11:42 Urine pH 8.0 (4.5-7.5) H 12/27/22 11:42 Ur Specific [place] 1.022 (1.000-1.030) 12/27/22 11:42 Urine Protein Trace (Negative) H 12/27/22 11:42 Urine Glucose (UA) Negative (Negative) 12/27/22 11:42 Urine Ketones Negative (Negative) 12/27/22 11:42 Urine Nitrite Negative (Negative) 12/27/22 11:42 Ur Leukocyte Esterase Negative (Negative) 12/27/22 11:42 Urine WBC (Auto) 1-5 /hpf (0-5) 12/27/22 11:42 Urine RBC (Auto) 0-4 /hpf (0-4) 12/27/22 11:42 U Hyaline Cast (Auto) 1-5 /lpf (0-5) 12/27/22 11:42 U Epithel Cells (Auto) 5-10 /lpf (0-5) H 12/27/22 11:42 Urine Bacteria (Auto) Negative (Negative) 12/27/22 11:42 12/26/22 07:38 Aerobic Blood Culture - Final Blood No growth in Aerobic bottle after 5 days. Anaerobic Blood Culture - Final No growth in Anaerobic bottle after 5 days. 12/25/22 20:15 Aerobic Blood Culture - Final Blood No growth in Aerobic bottle after 5 days. Anaerobic Blood Culture - Final 12/15/22 10:30 Urine Culture - Final Urine,Clean Catch No growth - less than 1,000 colonies/mL. 11/05/22 14:56 Aerobic Blood Culture - Final Blood No growth in Aerobic bottle after 5 days. Anaerobic Blood Culture - Final No growth in Anaerobic bottle after 5 days. 11/05/22 09:49 Aerobic Blood Culture - Final Blood No growth in Aerobic bottle after 5 days. Anaerobic Blood Culture - Final No growth in Anaerobic bottle after 5 days. 11/03/22 16:04 Aerobic Blood Culture - Final Blood Coag neg staph not lugdunensis Anaerobic Blood Culture - Final No growth in Anaerobic bottle after 5 days. 11/03/22 14:55 Aerobic Blood Culture - Final Blood No growth in Aerobic bottle after 5 days. Anaerobic Blood Culture - Final Anaerococcus prevotii Electrocardiogram Date: 12/25/22 Sinus tachycardia with short ID Rightward axis Chest X-Ray Date: 12/25/22 FINDINGS: No lines and tubes are seen. The cardiomediastinal silhouette is normal. Left lung base airspace opacity is seen. Left effusion cannot be entirely excluded. IMPRESSION: Left lung base airspace opacity likely represents atelectasis with or without superimposed aspiration/pneumonia.
[2023-01-02] MEDS ORDERED: MIDAZOLAM HCL 1 MG/ML 2ML VIAL ONE (13:58)
[2023-01-02] MEDS ORDERED: PROPOFOL IV EMULSION 10 MG/ML 20 ML VIAL IV ONE (13:58)
[2023-01-02] MEDS ORDERED: KETAMINE 50 MG/5 ML SYRINGE ONE (13:58)
[2023-01-02] MEDS ORDERED: ONDANSETRON INJ 2 MG/ML 2 ML VIAL ONE (13:58)
[2023-01-02] MEDS ORDERED: fentaNYL citrate PF 100 MCG/2 ML VIAL ONE (13:58)
[2023-01-02] MEDS ORDERED: LIDOCAINE 2% 2 ML VIAL/AMP(20MG/ML) INFIL ONE (13:58)
--- NOTE | 2023-01-02 14:00 | History & Physical Report ---
Date of Service January 02, 2023 Assessment & Plan (1) Malnutrition: Plan: stable for EGD with possible PEG Admission and Anticipated Discharge Date Admission Date: November 03, 2022 History of Present Illness Chief Complaint: malnutrition Primary Care Provider: NO PCP pt needs PEG tube for malnutrition Allergies Allergy/AdvReac Type Severity Reaction Status Date / Time No Known Allergies Allergy Verified 11/03/22 17:28 Home Medications Medication Instructions Recorded Confirmed Type benztropine 0.5 mg tablet 0.5 mg PO HS 08/14/22 11/03/22 History haloperidol 5 mg tablet 5 mg PO BID 08/14/22 11/03/22 History lamotrigine 25 mg tablet 50 mg PO BID 08/14/22 11/03/22 History venlafaxine 150 mg 150 mg PO QAM 08/14/22 11/03/22 History capsule,extended release 24 hr Past Med/Surg History Medical History Anxiety Avolition Bipolar disorder Bipolar disorder with depression Catatonia Depression Mutism Noncompliance Obesity Psychosis Schizoaffective disorder Surgical History No pertinent past surgical history Family History Other Family history unknown Social History Smoking Status: Current some day smoker Preferred Language: Japanese Communication Ability: Unable Communication Ability Comment: Catatonic like behavior 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: No Beliefs That Will Affect Care: None Current Living Situation: Alone Feels Safe at Home: Declines to Answer Gender Identity: Male Assistive Devices: None Physical Exam Constitutional: WD/WN, vitals as above Respiratory: normal respiratory effort, lungs clear to auscultation Cardiovascular: RRR, no murmur, no edema Gastrointestinal (Abdomen): normal bowel sounds, soft, nontender, no hepatosplenomegaly Results & Data Vital Signs (Past 12 Hours) Vital Signs Temp Pulse Resp BP BP Pulse Ox O2 Del Method 01/02/23 13:19 36.8 C 93 H 16 114/72 97 Room Air 01/02/23 10:03 113/73 01/02/23 07:27 36.9 C 80 17 92/91 L 94 Room Air
--- NOTE | 2023-01-02 14:40 | Palliative Care Progress Note ---
Date of Service January 02, 2023 Assessment & Plan (1) Weakness generalized: Plan: prolonged malnutrition, self neglect (hx of contributory neglect and volitional neglect with self care, nutrition, wellness, medication compliance, etc.) for peg placement today: I do believe this is the best chance we have for reliable, daily med administration and DEVANG, hopefully meds can help improve his PS. family reasonable and realistic with retirement expectations, see #3 below (2) Altered mental status: (3) Discussion about advance care planning held with family member: Plan: 45min ACP face to face with parents Mrs. Swift is legal guardian. We reviewed that all chronic/progressive disease has a declining trajectory over time where facets of patient self-identity and independence are lost. Every acute event leads to a further decline, resulting- many times, in a new baseline. Advised that the greatest priority is to determine what matters most to pt, then family and to develop a plan of care that is aligned with those priorities. They share he has been struggling with his mental illness since the age of 17yo. he struggled final semester in college and had a breakdown 6 weeks before graduating. he has had a breakdown nearly every year requiring admissions, most of the time they are exacerbated by going off the meds bc he was feeling better. It has been an ongoing challenge for him and their family. He moved to [place] for a new job because he lost his job at due to the struggles. Although they discussed moving him back to [place] where they live, he has been steadfast in wanting to remain close to where daughter lies, she is 13yo and for now "wants nothing to do with him but who knows, that might change. She is really struggling with this too and does not want to deal with it or him." The POLST form was reviewed and discussed with family (Mom and Dad, Mom is legal guardian) today. We specifically discussed that POLST is an approach to end-of-life planning that emphasizes patients wishes about the care they receive. The POLST Paradigm, which stands for Physician Orders for Life Sustaining Treatment, is an approach to end-of-life planning emphasizing: (i) advance care planning conversations between patients, health child day care teacher and loved ones; (ii) shared decision-making between a patient and his/her health director day care center about the care the patient would like to receive at the end of his/her life and (iii) ensuring patient wishes are honored. We discussed that the POLST form is a medical order indicating a patients wishes regarding treatments that are commonly used in a medical crisis. It is a medical order, therefore emergency personnel such as paramedics, vp security, and emergency physicians must follow these orders. Without a POLST form, parame dics and vp security are required to provide every possible medical treatment to sustain life. Patient/family advised that the [place] POLST form is a very bright PINK colored form designed for immediate, easy location and which gives them a way to tell doctors, nurses, and other health child day care teacher what types of treatment they do and do not want. A POLST form was completed today for LAMAR SWIFT. Please note that today's completed POLST orders reflect guardian's best interest and substituted judgement based on patient's prior known preferences, wishes and selections of what treatments he wants for his health. Bryce Swift/Mother and legal guardian verbalized understanding and all questions were answered to both her and Mr. Swift's (pt's dad) apparent satisfaction. A copy of the POLST form has been sent for scanning by RN. The original was provided to Mrs. Swift. I reinforced that she should ALWAYS hold on to the original and provide copies to any care facilities he enters. The designated surrogate decision maker should always keep the original document in case they are ever required to show proof of original form completion. (4) Palliative care by specialist: (5) Schizoaffective disorder, depressive type: (6) Severe malnutrition: (7) Schizoaffective disorder, chronic condition with acute exacerbation: (8) MDD (major depressive disorder), recurrent episode, severe: Plan POLST completed Copy to RN for scanning/patient's unit chart He remains FULL CODE for procedure then DNR/DNI thereafter - primary team no tified, code order will need to be changed after PEG TS 60 min Thank you for allowing us to participate in the ongoing care of this patient. Please don't hesitate to call or page with any additional concerns. Dr. Odalis Aldana DNP Director, Palliative Care Admission and Anticipated Discharge Date Admission Date: November 03, 2022 Subjective no acute change for PEG today at 2pm Review of Systems Review of Systems: Unobtainable due to mental health condition and Unobtainable due to cognitive status Physical Exam Physical Exam: resting in bed passive, no engagement bitemp wasting, perrla, eyes olpen/occasionally track movement resp effort WAL limited anterior exam with diminished breath sounds S1S2 Abd soft generalized deconditioning/weakness skin pale, warm, cheeks flushed unable to follow commands does not reply to questions or efforts to converse Results & Data Vital Signs (Past 12 Hours) Vital Signs Temp Pulse Resp BP BP Pulse Ox O2 Del Method 01/02/23 13:19 36.8 C 93 H 16 114/72 97 Room Air 01/02/23 10:03 113/73 01/02/23 07:27 36.9 C 80 17 92/91 L 94 Room Air Laboratory Results data reviewed Diagnostic Findings data reviewed PG Care Time/CCT Total # of Minutes Spent Total Time Spent: 75 Total Time Spent with Patient: Total time spent is greater than 50% in coordination of care (as documented) at patient's floor/unit and/or counseling patient: 75min on this case 10 min chart review 15 min with pt 45min ACP meeting 5 min care coordination, primary team and nursing Advanced Care Planning 56642 Advanced Care Planning 30 Min 63800 Advanced Care Planning Additional 30 Min [place] [address] SUB INP/OBS CARE 3/50MIN Patient Type Established History Comprehensive Exam Comprehensive Medical Decision Making High Complexity Diagnoses Weakness generalized R53.1 Altered mental status R40.1 Altered mental status type: stupor Discussion about advance care planning held with family member Z71.0 Palliative care by specialist Z51.5 Schizoaffective disorder, depressive type F25.1 Severe malnutrition E43 Schizoaffective disorder, chronic condition with acute exacerbation F25.9 MDD (major depressive disorder), recurrent episode, severe F33.2 Additional Codes Advanced Care Planning - 55324 Advanced Care Planning 30 Min: 99910 Advanced Care Planning 30 Min ([id number]) Advanced Care Planning - 02519 Advanced Care Planning Additional 30 Min: 28205 Advanced Care Planning Additional 30 Min ([id number]) (2) Altered mental status Altered mental status type: stupor Qualified Code(s): R40.1 - Stupor
--- NOTE | 2023-01-02 15:00 | Hospitalist Progress Note ---
Date of Service January 02, 2023 Assessment & Plan (1) Schizoaffective disorder: (2) Unable to care for self: (3) Starvation ketoacidosis: (4) Severe malnutrition: Plan 42-year-old male with PMH of schizoaffective disorder, catatonia who presents after being found minimally responsive and covered in feces on a welfare check. He was brought to the hospital. Found to have starvation ketosis with anion gap metabolic acidosis. Schizoaffective disorder with catatonia Patient was admitted for 5 months from 02/2021 to 06/2021 in psychiatric unit here in the hospital. Had neurology evaluation including MRI brain which was normal. CT head without acute intracranial abnormality, tox screen negative Prolonged hospital stay Was evaluated by Psychiatry Per psych, pt still does not have capacity in spite of progress previously noted. Mother who is emergency guardian, will continue making decisions for pt. Had a prior hearing to appoint his mother legal guardian until a later hearing to determine if this will be permanent 12/02-Patient ate half of his breakfast however nothing further throughout the day. 12/03 -305 hearing approved. 12/07: Last PPN line and hence nutrition. He ate some of his lunch and some of his dinner on this day. 12/09- pt no responding to provider but is responsive to nursing, re evaluated pt twice with same response. His nurse Tato was able to get him to eat a few doritos, cookie, drank some water and 1/2 carton of ice team at 1528 12/10 - Did not eat 12/11 - Per RN he ate and drank 12/12 - Per RN, ate dinner well 12/13 - Declined food but drank some 12/14 - Drinks some. Not much eating 12/15 - Not eating. Per prior attending - On 12/15/22, I discussed with Dr Garces. She reported patient has been trialed on almost all meds without response and has nothing to offer at this time. Psych recommends ok to continue daytrana if h e eats but if goes days without eating, then daytrana should be stopped to avoid cardiac risks. Daytrana stopped 12/16/2212/17 - per RN no po intake 12/18- only sips of coke on 12/17, no intake today. 12/19 - no intake today per rn 12/20 - pt drank some orange juice in the morning per RN. 12/21 - no intake today per RN. 12/22 - continued to be nonverbal, no oral intake, PPN continues 12/23 - no intake, PPN continues, interdisciplinary team meeting with patient's legal guardian present - planning for PEG and SNF placement 12/24 - drank 375 mL of orange juice and ate half of grilled cheese and nibbled s ome cookies. 12/25 - couple of bite of cookie, most of his fruit, 150 ml of coke. 12/26 - notified by senior geologist that pt had a fever to 104 overnight, was tachycardic (HR in 130s) and hypotensive. Received a 1500cc bolus and currently on NSS@100. Was started on empiric IV Meropenem and Vancomycin. Pt was refusing labs and a second IV line so only one set of Blood Cx was obtained last night, with another set this AM. AM labs reveal an improved WBC from elevation the day prior. Chest XRAY concerning for possible pneumonia (?aspiration), urine not currently suggestive of infection. Email from his mother to dated 12/24/22 reviewed- Notes that she has many questions about the PEG tube and would like daily updates. Mother contacted via phone and advised of current infection, unsure source, being treated with empiric antibiotics. She noted that they will be visiting on ThursdayDec 29 and would like to defer further discussion of PEG tube placement until then. Advised that service would be in agreement to defer PEG tube or any tube placement at this time due to pt's current infection. She verbalized understanding. Continue current empiric abx, follow blood Cx. 12/27- Fever, tachycardia and BP improved today. Empiric Vancomycin and Meropenem discontinued, and pt transitioned to Zosyn. WBC improved. Phosphate was decreased today and repleted. Continue PPN. Mother updated, wanted update on labs. She was agreeable with plan. 12/28- Pt continues to remain stable, slightly tachycardic but no more fevers or hypotension. Continue with Zosyn and PPN. Mother called and updated. Will be he re tomorrow and would like to speak with provider while here. Expressed appreciation of care thus far. 12/29: Vitals are more stable, continue with Zosyn. Patient has not taken any food today. Patient's mother wanted PPN to be held today. She is still deciding on PEG tube. She wanted palliative care consult and ethics consult, both placed. 12/30: Multidisciplinary meeting held with primary attending, psychiatry, palliative care, case management, patient's parents and sister. Agreeable with PEG tube. 12/31: Patient took a few bites of a cookie today. PPN continues. GI to discuss with family regarding PEG tube. 01/01: Per discussion between GI and family, moving forward with PEG placement tomorrow. NPO @ [place], hold SQ heparin, INR 01/02: PEG tube placement by GI at 1400 today Aspiration pneumonia See events above from 12/26 On Zosyn - due to complete course tomorrow evening, 01/03 Remains afebrile Severe malnutrition Vitamin D deficiency: Received PPN 11/20 -11/27 and one bag on 11/30 Patient continues to have very poor oral intake. See above. C/w PPN, monitor electrolytes, replete as appropriate. DVT PROPHYLAXIS: SQ Lovenox Updated Mom over the phone today. 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 intake which has been a big brent during his medical care. Interdisciplinary team meeting was done 12/30 with palliative care, psychiatry, patient's parent, patient's sister, immigration case worker. Parents are agreeable to PEG tube, GI following - PEG placement today. Family want parenteral nutrition until peg tube finalized or palliative approach finalized. Pt has declined PICC line placement several times. Appreciate palliative's effort and time. Family wanted ethics committee on board, which had been consulted after persistent wish from the family. Appreciate ethics eval. On exam, patient on room air, noncommunicative. Bilateral axilla with likely excoriation from bodily secretion that he has been soiled with due to his lack of cooperation w/ personal hygiene - appears stable. RN has been notified to keep the area clean and dry which they are doing, and apply vaseline 2-3 times a day. Will continue to follow. rest of the exam as above. I have seen and examined the patient and have discussed the case with the pro vider above. I agree with the assessment and plan as stated. Subjective Seen and examined in follow-up in [facility] for schizoaffective disorder with ca tatonia. Non-verbal, opens eyes during exam. Appears comfortable, resting. Does not communicate any complaints. Review of Systems Review of Systems: Unobtainable due to mental health condition Physical Exam Physical Exam: Gen: WD/WN, NAD, lying in bed, non-verbal, does not engage with questions or follow commands HEENT: Normocephalic, atraumatic, conjunctivae moist, sclerae anicteric, mucous membranes moist Lung: Clear to Auscultation bilaterally but diminished, no wheezes/rales/rhonchi Heart: Regular rate, regular rhythm, no murmurs, rubs, or gallops Abdomen: Soft, NT, ND +BS x 4 Extremities: no edema Skin: Warm, no rash Results & Data Results & Data Vital Signs (Past 12 Hours) Vital Signs Temp Pulse Resp BP BP Pulse Ox O2 Del Method 01/02/23 13:19 36.8 C 93 H 16 114/72 97 Room Air 01/02/23 10:03 113/73 01/02/23 07:27 36.9 C 80 17 92/91 L 94 Room Air
--- NOTE | 2023-01-02 15:10 | Gastroenterology Progress Note ---
Date of Service January 02, 2023 Assessment & Plan Admission and Anticipated Discharge Date Admission Date: November 03, 2022 Subjective Pt tolerated PEG placement well. Use for only medications and flushing for 24 hours than may use for feeds if patient is stable. Watch for signs of bleeding and/or infection. Please keep peg completely covered with pad or binding to avoid being pulled out. Primary team should consult nutrition for feed recs. Please have GI service recheck site to check need to loosen bolster in about 3 days/Thursday. Results & Data Vital Signs (Past 12 Hours) Vital Signs Temp Pulse Resp BP BP Pulse Ox O2 Del Method 01/02/23 13:19 36.8 C 93 H 16 114/72 97 Room Air 01/02/23 10:03 113/73 01/02/23 07:27 36.9 C 80 17 92/91 L 94 Room Air
--- NOTE | 2023-01-02 15:18 | GI REPORT ---
Patient Name: David Diaz Procedure Date: 01/02/2023 2:13 PM Date of : 1980 Admit Type: Inpatient Age: 42 Gender: Male Attending MD: Daniel Cheung MD, Procedure: Upper GI endoscopy Providers: Daniel Cheung MD Referring MD: Merari Cortez Md Indications: Place PEG because patient is unable to eat/malnutrition Medicines: See the Anesthesia note for documentation of the administered medications Complications: No immediate complications. Estimated Blood Loss: Estimated blood loss was minimal. Procedure: Pre-Anesthesia Assessment: - Prior to the procedure, a History and Physical was performed, and patient medications, allergies and sensitivities were reviewed. The patient's tolerance of previous anesthesia was reviewed. - The risks and benefits of the procedure and the sedation options and risks were discussed with the patient. All questions were answered and informed consent was obtained. - Patient identification and proposed procedure were verified prior to the procedure by the physician and the nurse. The procedure was verified in the pre-procedure area. - Pre-procedure physical examination revealed no contraindications to sedation. - After reviewing the risks and benefits, the patient was deemed in satisfactory condition to undergo the procedure. After obtaining informed consent, the endoscope was passed under direct vision. Throughout the procedure, the patient's blood pressure, pulse, and oxygen saturations were monitored continuously. The Endoscope was introduced through the mouth, and advanced to the third part of duodenum. The upper GI endoscopy was accomplished without difficulty. The patient tolerated the procedure well. Findings: The esophagus was normal. The entire examined stomach was normal. Placement of an externally removable PEG 24 Divehi with no T-fasteners was successfully completed with excellent positioning. The external bumper was at the 6.0 cm marking on the tube. Estimated blood loss was minimal. The examined duodenum was normal. The cardia and gastric fundus were normal on retroflexion. Impression: - Normal esophagus. - Normal stomach. - Normal examined duodenum. - An externally removable Babatunde-Cook PEG placement was successfully completed. - No specimens collected. Recommendation: - Please follow the post-PEG recommendations including: Nutrition consult for formula and volume, external bolster snug to abdominal wall, may use PEG today for meds and water and may use PEG tomorrow for feedings. - Return patient to [facility] for [facility] care. Daniel Cheung M.D. Daniel Cheung MD 01/02/2023 3:18:18 PM This report has been signed electronically. Note Initiated On: 01/02/2023 2:13 PM Number of Addenda: 0 I attest to the content of the Intraoperative Record and orders documented therein, exceptions below {[id number]}
--- NOTE | 2023-01-02 15:23 | Anesthesiology Progress Note ---
Date of Service January 02, 2023 Anesthesia Post Procedure Vital Signs Vital Signs: Temp Pulse Resp BP BP Pulse Ox O2 Del Method 01/02/23 15:12 80 16 116/68 98 Room Air 01/02/23 14:57 88 14 111/64 95 Room Air 01/02/23 13:19 36.8 C 93 H 16 114/72 97 Room Air 01/02/23 10:03 113/73 01/02/23 07:27 36.9 C 80 17 92/91 L 94 Room Air 01/01/23 20:46 67 18 109/71 98 Room Air Pain Intensity Generalized: Pain Intensity: 0 Transfer of Care Handoff Completed per policy Notes Mental Status: alert / awake / arousable and participated in evaluation Patient Amnestic to Procedure: Yes Nausea / Vomiting: adequately controlled Pain: adequately controlled Airway Patency, RR, SpO2: stable & adequate BP & HR: stable & adequate Hydration State: stable & adequate Anesthetic Complications: no major complications apparent and Pt Satisfied with anesthetic care
[2023-01-02] MEDS ORDERED: PERIPHERAL TPN IV SCH (16:00)
[2023-01-02] MEDS ORDERED: CLINOLIPID 20% IV FAT EMULSION 250 ML IV ONE (16:00)
[2023-01-02] MEDS ORDERED: [UNRECOGNIZED DRUG - OTHER] IV SCH (16:00)
[2023-01-02] MEDS: TUBE FEEDING WATER FLUSH PEG SCH ×2 (18:07→20:54)
[2023-01-02 20:55] LABS: Calcium 8.8 mg/dl (8.6-10.3); Magnesium 2.1 mg/dl (1.7-2.4)
[2023-01-02 21:00] LABS: BUN Creatinine Ratio 17.1 (10-20); Creatinine Clr Calc Pharmacy 161.3 ml/min; Est GFR (African American) 134.9 ml/min; Est GFR (Non-African American) 116.4 ml/min; Phosphorus 3.2 mg/dl (2.5-4.9)
[2023-01-02] MEDS: STOP CLINOLIPID SCH (23:04)
[2023-01-03] MEDS: TUBE FEEDING WATER FLUSH PEG SCH ×6 (01:45→22:37)
[2023-01-03] MEDS: PIPERACILLIN/TAZOBACTAM 4.5 GM in DEXTROSE 5% 100 ML IV SCH ×2 (05:27→13:08)
--- NOTE | 2023-01-03 08:17 | Gastroenterology Progress Note ---
Date of Service January 03, 2023 Assessment & Plan (1) Malnutrition: Plan: PEG site looks good. Okay to use Admission and Anticipated Discharge Date Admission Date: November 03, 2022 Subjective PEG site without erythema, looks good. Bumper in good position Results & Data Vital Signs (Past 12 Hours) Vital Signs Temp Pulse Pulse Resp BP Pulse Ox O2 Del Method 01/03/23 07:50 36.9 C 80 16 98/64 L 93 Room Air 01/02/23 22:53 Room Air 01/03/23 04:20 36.9 C 69 16 103/72 96 Room Air 01/02/23 23:14 37 C 81 18 95/52 L 95 Room Air
[2023-01-03 09:49] LABS: Hematocrit (blood only) 38.9 % (42.0-52.0); Hemoglobin 13.2 g/dl (14.0-18.0); Mean Corpuscular Hemoglobin 30.5 pg (25.0-34.0); Mean Corpuscular Hgb Conc 33.9 g/dL (32.0-36.0); Mean Corpuscular Volume 89.8 fL (80.0-100.0); Mean Platelet Volume 10.7 fL (9.4-12.4); Platelet Count 252 K/uL (130-400); RDW Coefficient of Variation 12.3 % (11.5-14.5); RDW Standard Deviation 40.8 fL (36.4-46.3); Red Blood Count 4.33 M/uL (4.70-6.10); White Blood Count 7.42 K/ul (4.8-10.8)
[2023-01-03 10:06] LABS: BUN Creatinine Ratio 14.5 (10-20); Calcium 8.8 mg/dl (8.6-10.3); Creatinine Clr Calc Pharmacy 149.1 ml/min; Est GFR (African American) 130.4 ml/min; Est GFR (Non-African American) 112.5 ml/min; Magnesium 2.1 mg/dl (1.7-2.4); Phosphorus 3.1 mg/dl (2.5-4.9); Potassium 3.8 mmol/L (3.5-5.1)
[2023-01-03] MEDS: CHOLECALCIFEROL 5,000 UNITS 125 MCG TAB PEG SCH (10:27)
--- NOTE | 2023-01-03 16:32 | Hospitalist Progress Note ---
Date of Service January 03, 2023 Assessment & Plan (1) Schizoaffective disorder: (2) Unable to care for self: (3) Starvation ketoacidosis: (4) Severe malnutrition: Plan 42-year-old male with PMH of schizoaffective disorder, catatonia who presents after being found minimally responsive and covered in feces on a welfare check. He was brought to the hospital. Found to have starvation ketosis with anion gap metabolic acidosis. Schizoaffective disorder with catatonia Patient was admitted for 5 months from 02/2021 to 06/2021 in psychiatric unit here in the hospital. Had neurology evaluation including MRI brain which was normal. CT head without acute intracranial abnormality, tox screen negative Prolonged hospital stay Was evaluated by Psychiatry Per psych, pt still does not have capacity in spite of progress previously noted. Mother who is emergency guardian, will continue making decisions for pt. Had a prior hearing to appoint his mother legal guardian until a later hearing to determine if this will be permanent 12/02-Patient ate half of his breakfast however nothing further throughout the day. 12/03 -305 hearing approved. 12/07: Last PPN line and hence nutrition. He ate some of his lunch and some of his dinner on this day. 12/09- pt no responding to provider but is responsive to nursing, re evaluated pt twice with same response. His nurse Tato was able to get him to eat a few doritos, cookie, drank some water and 1/2 carton of ice team at 1528 12/10 - Did not eat 12/11 - Per RN he ate and drank 12/12 - Per RN, ate dinner well 12/13 - Declined food but drank some 12/14 - Drinks some. Not much eating 12/15 - Not eating. Per prior attending - On 12/15/22, I discussed with Dr Garces. She reported patient has been trialed on almost all meds without response and has nothing to offer at this time. Psych recommends ok to continue daytrana if h e eats but if goes days without eating, then daytrana should be stopped to avoid cardiac risks. Daytrana stopped 12/16/2212/17 - per RN no po intake 12/18- only sips of coke on 12/17, no intake today. 12/19 - no intake today per rn 12/20 - pt drank some orange juice in the morning per RN. 12/21 - no intake today per RN. 12/22 - continued to be nonverbal, no oral intake, PPN continues 12/23 - no intake, PPN continues, interdisciplinary team meeting with patient's legal guardian present - planning for PEG and SNF placement 12/24 - drank 375 mL of orange juice and ate half of grilled cheese and nibbled s ome cookies. 12/25 - couple of bite of cookie, most of his fruit, 150 ml of coke. 12/26 - notified by object oriented programmer that pt had a fever to 104 overnight, was tachycardic (HR in 130s) and hypotensive. Received a 1500cc bolus and currently on NSS@100. Was started on empiric IV Meropenem and Vancomycin. Pt was refusing labs and a second IV line so only one set of Blood Cx was obtained last night, with another set this AM. AM labs reveal an improved WBC from elevation the day prior. Chest XRAY concerning for possible pneumonia (?aspiration), urine not currently suggestive of infection. Email from his mother to dated 12/24/22 reviewed- Notes that she has many questions about the PEG tube and would like daily updates. Mother contacted via phone and advised of current infection, unsure source, being treated with empiric antibiotics. She noted that they will be visiting on ThursdayDec 29 and would like to defer further discussion of PEG tube placement until then. Advised that service would be in agreement to defer PEG tube or any tube placement at this time due to pt's current infection. She verbalized understanding. Continue current empiric abx, follow blood Cx. 12/27- Fever, tachycardia and BP improved today. Empiric Vancomycin and Meropenem discontinued, and pt transitioned to Zosyn. WBC improved. Phosphate was decreased today and repleted. Continue PPN. Mother updated, wanted update on labs. She was agreeable with plan. 12/28- Pt continues to remain stable, slightly tachycardic but no more fevers or hypotension. Continue with Zosyn and PPN. Mother called and updated. Will be he re tomorrow and would like to speak with provider while here. Expressed appreciation of care thus far. 12/29: Vitals are more stable, continue with Zosyn. Patient has not taken any food today. Patient's mother wanted PPN to be held today. She is still deciding on PEG tube. She wanted palliative care consult and ethics consult, both placed. 12/30: Multidisciplinary meeting held with primary attending, psychiatry, palliative care, case management, patient's parents and sister. Agreeable with PEG tube. 12/31: Patient took a few bites of a cookie today. PPN continues. GI to discuss with family regarding PEG tube. 01/01: Per discussion between GI and family, moving forward with PEG placement tomorrow. NPO @ [place], hold SQ heparin, INR 01/02: PEG tube placement by GI at 1400 today 01/03: initiate peg tube feeding,nutrition on board for recs. Aspiration pneumonia See events above from 12/26 On Zosyn - due to complete course today evening, 01/03 Remains afebrile Severe malnutrition Vitamin D deficiency: Received PPN 11/20 -11/27 and one bag on 11/30 Patient continues to have very poor oral intake. See above. monitor electrolytes, replete as appropriate. c/w vitamin d replacement. DVT PROPHYLAXIS: SQ Lovenox Admission and Anticipated Discharge Date Admission Date: November 03, 2022 Subjective Seen and examined in follow-up in [facility]2 for schizoaffective disorder with catatonia. Non-verbal, winces face during exam/communication. Appears comfortable, resting. Does not communicate any complaints. Physical Exam Physical Exam: General Appearance :Lying on the bed comfortably.non communicative. Re spiratory:normal respiratory effort , lungs clear to a uscultation, no wh eeze, rales, rhonc hi. No accessory muscle use Cardiov ascular: tachycar dic rate, regular rhythm, no murmur, normal peripheral pulses, no BLE ed darian. Vessels: no J VD Chest: normal inspection of ches t Abdomen/GI: nor mal bowel sounds, soft, nontender, n o hepatosplenomega ly Extremities/Mus culoskeletal: no cyanosis or clubbi ng Neurologic/psyc h: Does not answer any questions Ski n: no rashes, nor mal color, warm/dr y, excoriated area near groin but no open wounds visua lized Results & Data Results & Data Vital Signs (Past 12 Hours) Vital Signs Temp Pulse Resp BP Pulse Ox O2 Del Method 01/03/23 12:22 36.9 C 71 16 104/69 95 Room Air 01/03/23 07:50 36.9 C 80 16 98/64 L 93 Room Air
[2023-01-03] MEDS ORDERED: Nursing to Pharmacy Communication SCH (23:00)
[2023-01-04] MEDS: TUBE FEEDING WATER FLUSH PEG SCH ×6 (05:11→22:30)
[2023-01-04 06:46] LABS: Hematocrit (blood only) 40.6 % (42.0-52.0); Hemoglobin 13.9 g/dl (14.0-18.0); Mean Corpuscular Hemoglobin 30.3 pg (25.0-34.0); Mean Corpuscular Hgb Conc 34.2 g/dL (32.0-36.0); Mean Corpuscular Volume 88.6 fL (80.0-100.0); Mean Platelet Volume 10.7 fL (9.4-12.4); Platelet Count 262 K/uL (130-400); RDW Coefficient of Variation 12.6 % (11.5-14.5); RDW Standard Deviation 40.5 fL (36.4-46.3); Red Blood Count 4.58 M/uL (4.70-6.10); White Blood Count 7.82 K/ul (4.8-10.8)
[2023-01-04] MEDS: STOP CLINOLIPID SCH (06:53)
[2023-01-04 07:09] LABS: Albumin Globulin Ratio 1.5 (0.9-2); Albumin Level 3.5 gm/dl (3.4-5.0); BUN Creatinine Ratio 13.3 (10-20); Bilirubin,Total 0.5 mg/dl (0.2-1.0); Calcium 9.1 mg/dl (8.6-10.3); Creatinine Clr Calc Pharmacy 151.1 ml/min; Est GFR (African American) 131.1 ml/min; Est GFR (Non-African American) 113.1 ml/min; Globulin 2.4 gm/dl (2.5-4.0); Magnesium 2.2 mg/dl (1.7-2.4); Phosphorus 3.1 mg/dl (2.5-4.9); Potassium 3.8 mmol/L (3.5-5.1); Total Protein 5.9 gm/dl (6.0-8.3)
[2023-01-04] MEDS: CHOLECALCIFEROL 5,000 UNITS 125 MCG TAB PEG SCH (08:34)
--- NOTE | 2023-01-04 15:42 | Hospitalist Progress Note ---
Date of Service January 04, 2023 Assessment & Plan (1) Schizoaffective disorder: (2) Unable to care for self: (3) Starvation ketoacidosis: (4) Severe malnutrition: Plan 42-year-old male with PMH of schizoaffective disorder, catatonia who presents after being found minimally responsive and covered in feces on a welfare check. He was brought to the hospital. Found to have starvation ketosis with anion gap metabolic acidosis. Schizoaffective disorder with catatonia Patient was admitted for 5 months from 02/2021 to 06/2021 in psychiatric unit here in the hospital. Had neurology evaluation including MRI brain which was normal. CT head without acute intracranial abnormality, tox screen negative Prolonged hospital stay Was evaluated by Psychiatry Per psych, pt still does not have capacity in spite of progress previously noted. Mother who is emergency guardian, will continue making decisions for pt. Had a prior hearing to appoint his mother legal guardian until a later hearing to determine if this will be permanent 12/02-Patient ate half of his breakfast however nothing further throughout the day. 12/03 -305 hearing approved. 12/07: Last PPN line and hence nutrition. He ate some of his lunch and some of his dinner on this day. 12/09- pt no responding to provider but is responsive to nursing, re evaluated pt twice with same response. His nurse Tato was able to get him to eat a few doritos, cookie, drank some water and 1/2 carton of ice team at 1528 12/10 - Did not eat 12/11 - Per RN he ate and drank 12/12 - Per RN, ate dinner well 12/13 - Declined food but drank some 12/14 - Drinks some. Not much eating 12/15 - Not eating. Per prior attending - On 12/15/22, I discussed with Dr Garces. She reported patient has been trialed on almost all meds without response and has nothing to offer at this time. Psych recommends ok to continue daytrana if h e eats but if goes days without eating, then daytrana should be stopped to avoid cardiac risks. Daytrana stopped 12/16/2212/17 - per RN no po intake 12/18- only sips of coke on 12/17, no intake today. 12/19 - no intake today per rn 12/20 - pt drank some orange juice in the morning per RN. 12/21 - no intake today per RN. 12/22 - continued to be nonverbal, no oral intake, PPN continues 12/23 - no intake, PPN continues, interdisciplinary team meeting with patient's legal guardian present - planning for PEG and SNF placement 12/24 - drank 375 mL of orange juice and ate half of grilled cheese and nibbled s ome cookies. 12/25 - couple of bite of cookie, most of his fruit, 150 ml of coke. 12/26 - notified by paint prep technician that pt had a fever to 104 overnight, was tachycardic (HR in 130s) and hypotensive. Received a 1500cc bolus and currently on NSS@100. Was started on empiric IV Meropenem and Vancomycin. Pt was refusing labs and a second IV line so only one set of Blood Cx was obtained last night, with another set this AM. AM labs reveal an improved WBC from elevation the day prior. Chest XRAY concerning for possible pneumonia (?aspiration), urine not currently suggestive of infection. Email from his mother to dated 12/24/22 reviewed- Notes that she has many questions about the PEG tube and would like daily updates. Mother contacted via phone and advised of current infection, unsure source, being treated with empiric antibiotics. She noted that they will be visiting on ThursdayDec 29 and would like to defer further discussion of PEG tube placement until then. Advised that service would be in agreement to defer PEG tube or any tube placement at this time due to pt's current infection. She verbalized understanding. Continue current empiric abx, follow blood Cx. 12/27- Fever, tachycardia and BP improved today. Empiric Vancomycin and Meropenem discontinued, and pt transitioned to Zosyn. WBC improved. Phosphate was decreased today and repleted. Continue PPN. Mother updated, wanted update on labs. She was agreeable with plan. 12/28- Pt continues to remain stable, slightly tachycardic but no more fevers or hypotension. Continue with Zosyn and PPN. Mother called and updated. Will be he re tomorrow and would like to speak with provider while here. Expressed appreciation of care thus far. 12/29: Vitals are more stable, continue with Zosyn. Patient has not taken any food today. Patient's mother wanted PPN to be held today. She is still deciding on PEG tube. She wanted palliative care consult and ethics consult, both placed. 12/30: Multidisciplinary meeting held with primary attending, psychiatry, palliative care, case management, patient's parents and sister. Agreeable with PEG tube. 12/31: Patient took a few bites of a cookie today. PPN continues. GI to discuss with family regarding PEG tube. 01/01: Per discussion between GI and family, moving forward with PEG placement tomorrow. NPO @ [place], hold SQ heparin, INR 01/02: PEG tube placement by GI at 1400 today 01/03: initiate peg tube feeding,nutrition on board for recs. 01/04: no po intake, c/w peg tube Aspiration pneumonia See events above from 12/26 On Zosyn - s/p course Remains afebrile Severe malnutrition Vitamin D deficiency: Received PPN 11/20 -11/27 and one bag on 11/30 Patient continues to have very poor oral intake. See above. monitor electrolytes, replete as appropriate. c/w vitamin d replacement. c/w thiamine. follow folate and b12 level DVT PROPHYLAXIS: SQ Lovenox Admission and Anticipated Discharge Date Admission Date: November 03, 2022 Subjective Seen and examined in follow-up in [facility]2 for schizoaffective disorder with catatonia. Non-verbal, winces face during exam/communication. Appears comfortable, resting. Does not communicate any complaints. Per RN, no new acute events, not cooperative w/ care. Physical Exam Physical Exam: General Appearance :Lying on the bed comfortably.non communicative. Re spiratory:normal respiratory effort , lungs clear to a uscultation, no wh eeze, rales, rhonc hi. No accessory muscle use Cardiov ascular: tachycar dic rate, regular rhythm, no murmur, normal peripheral pulses, no BLE ed darian. Vessels: no J VD Chest: normal inspection of ches t Abdomen/GI: nor mal bowel sounds, soft, nontender, n o hepatosplenomega ly Extremities/Mus culoskeletal: no cyanosis or clubbi ng Neurologic/psyc h: Does not answer any questions Ski n: no rashes, nor mal color, warm/dr y, excoriated area near groin but no open wounds visua lized Results & Data Results & Data Vital Signs (Past 12 Hours) Vital Signs Temp Pulse Resp BP Pulse Ox O2 Del Method 01/04/23 14:21 36.4 C L 81 17 96/65 L 96 Room Air 01/04/23 08:06 37.1 C 86 16 100/68 96 Room Air
[2023-01-04] MEDS: THIAMINE HCL 200 MG in SODIUM CHLORIDE 0.9% 50 ML IV SCH (16:06)
[2023-01-04] MEDS: MULTI VIT W/MINERALS LIQUID 15 ML UDP PO SCH (16:06)
[2023-01-05] MEDS: TUBE FEEDING WATER FLUSH PEG SCH ×6 (01:27→21:54)
[2023-01-05] MEDS: CHOLECALCIFEROL 5,000 UNITS 125 MCG TAB PEG SCH (10:04)
[2023-01-05] MEDS: MULTI VIT W/MINERALS LIQUID 15 ML UDP PO SCH (10:04)
[2023-01-05] MEDS: THIAMINE HCL 200 MG in SODIUM CHLORIDE 0.9% 50 ML IV SCH (10:04)
[2023-01-05 10:48] LABS: Albumin Globulin Ratio 1.5 (0.9-2); Albumin Level 3.7 gm/dl (3.4-5.0); BUN Creatinine Ratio 13.1 (10-20); Bilirubin,Total 0.4 mg/dl (0.2-1.0); Calcium 9.2 mg/dl (8.6-10.3); Creatinine Clr Calc Pharmacy 134.4 ml/min; Est GFR (African American) 125.2 ml/min; Globulin 2.4 gm/dl (2.5-4.0); Magnesium 2.3 mg/dl (1.7-2.4); Phosphorus 2.6 mg/dl (2.5-4.9); Potassium 4.2 mmol/L (3.5-5.1); Total Protein 6.1 gm/dl (6.0-8.3)
[2023-01-05 11:12] LABS: Folate (Folic Acid),Ser orPlas > 22.30 ng/ml (>5.38)
[2023-01-05 11:13] LABS: Vitamin B12 444 pg/ml (180-914)
--- NOTE | 2023-01-05 12:21 | Communication Note ---
Date of Service: January 05, 2023 Asked by nursing to speak with family about POLST form. I met with Mrs. Diaz. She is concerned that code status was changed to DNR after G tube placement. Her wish is that he remain full code, full treatment at this time until he can have a trial on antipsychotic medication via G tube at the SNF. If he does not improve with medication trial, then current POLST form would reflect their wish for a more comfort focused approach to his care. We clarified that in the mean time, he will remain full code, full treatment and they will take original POLST form with them to [place]. If the time arises when they want to transition to comfort care, they will send POLST original to facility. If he were to require rehospitalization in the mean time, they would want to discuss prognosis and goals of care at that time. POLST currently scanned into medical record will be voided by medical records. Dr. Cortez has updated code status. Discussed with nursing and medical records.
--- NOTE | 2023-01-05 15:37 | Hospitalist Progress Note ---
Date of Service January 05, 2023 Assessment & Plan (1) Schizoaffective disorder: (2) Unable to care for self: (3) Starvation ketoacidosis: (4) Severe malnutrition: Plan 42-year-old male with PMH of schizoaffective disorder, catatonia who presents after being found minimally responsive and covered in feces on a welfare check. He was brought to the hospital. Found to have starvation ketosis with anion gap metabolic acidosis. Schizoaffective disorder with catatonia Patient was admitted for 5 months from 02/2021 to 06/2021 in psychiatric unit here in the hospital. Had neurology evaluation including MRI brain which was normal. CT head without acute intracranial abnormality, tox screen negative Prolonged hospital stay Was evaluated by Psychiatry Per psych, pt still does not have capacity in spite of progress previously noted. Mother who is emergency guardian, will continue making decisions for pt. Had a prior hearing to appoint his mother legal guardian until a later hearing to determine if this will be permanent 12/02-Patient ate half of his breakfast however nothing further throughout the day. 12/03 -305 hearing approved. 12/07: Last PPN line and hence nutrition. He ate some of his lunch and some of his dinner on this day. 12/09- pt no responding to provider but is responsive to nursing, re evaluated pt twice with same response. His nurse Tato was able to get him to eat a few doritos, cookie, drank some water and 1/2 carton of ice team at 1528 12/10 - Did not eat 12/11 - Per RN he ate and drank 12/12 - Per RN, ate dinner well 12/13 - Declined food but drank some 12/14 - Drinks some. Not much eating 12/15 - Not eating. Per prior attending - On 12/15/22, I discussed with Dr Garces. She reported patient has been trialed on almost all meds without response and has nothing to offer at this time. Psych recommends ok to continue daytrana if h e eats but if goes days without eating, then daytrana should be stopped to avoid cardiac risks. Daytrana stopped 12/16/2212/17 - per RN no po intake 12/18- only sips of coke on 12/17, no intake today. 12/19 - no intake today per rn 12/20 - pt drank some orange juice in the morning per RN. 12/21 - no intake today per RN. 12/22 - continued to be nonverbal, no oral intake, PPN continues 12/23 - no intake, PPN continues, interdisciplinary team meeting with patient's legal guardian present - planning for PEG and SNF placement 12/24 - drank 375 mL of orange juice and ate half of grilled cheese and nibbled s ome cookies. 12/25 - couple of bite of cookie, most of his fruit, 150 ml of coke. 12/26 - notified by child protection specialist that pt had a fever to 104 overnight, was tachycardic (HR in 130s) and hypotensive. Received a 1500cc bolus and currently on NSS@100. Was started on empiric IV Meropenem and Vancomycin. Pt was refusing labs and a second IV line so only one set of Blood Cx was obtained last night, with another set this AM. AM labs reveal an improved WBC from elevation the day prior. Chest XRAY concerning for possible pneumonia (?aspiration), urine not currently suggestive of infection. Email from his mother to dated 12/24/22 reviewed- Notes that she has many questions about the PEG tube and would like daily updates. Mother contacted via phone and advised of current infection, unsure source, being treated with empiric antibiotics. She noted that they will be visiting on ThursdayDec 29 and would like to defer further discussion of PEG tube placement until then. Advised that service would be in agreement to defer PEG tube or any tube placement at this time due to pt's current infection. She verbalized understanding. Continue current empiric abx, follow blood Cx. 12/27- Fever, tachycardia and BP improved today. Empiric Vancomycin and Meropenem discontinued, and pt transitioned to Zosyn. WBC improved. Phosphate was decreased today and repleted. Continue PPN. Mother updated, wanted update on labs. She was agreeable with plan. 12/28- Pt continues to remain stable, slightly tachycardic but no more fevers or hypotension. Continue with Zosyn and PPN. Mother called and updated. Will be he re tomorrow and would like to speak with provider while here. Expressed appreciation of care thus far. 12/29: Vitals are more stable, continue with Zosyn. Patient has not taken any food today. Patient's mother wanted PPN to be held today. She is still deciding on PEG tube. She wanted palliative care consult and ethics consult, both placed. 12/30: Multidisciplinary meeting held with primary attending, psychiatry, palliative care, case management, patient's parents and sister. Agreeable with PEG tube. 12/31: Patient took a few bites of a cookie today. PPN continues. GI to discuss with family regarding PEG tube. 01/01: Per discussion between GI and family, moving forward with PEG placement tomorrow. NPO @ [place], hold SQ heparin, INR 01/02: PEG tube placement by GI at 1400 today 01/03: initiate peg tube feeding,nutrition on board for recs. 01/04 and 01/05: no po intake, c/w peg tube Aspiration pneumonia See events above from 12/26 On Zosyn - s/p course Remains afebrile Severe malnutrition Vitamin D deficiency: Received PPN 11/20 -11/27 and one bag on 11/30 Patient continues to have very poor oral intake. See above. monitor electrolytes, replete as appropriate. c/w vitamin d replacement. c/w thiamine. follow folate and b12 level DVT PROPHYLAXIS: SQ Lovenox Admission and Anticipated Discharge Date Admission Date: November 03, 2022 Subjective Seen and examined in follow-up in [facility] for schizoaffective disorder with catatonia. Non-verbal, winces face during exam/communication. Appears comfortable, resting. Does not communicate any complaints. Per RN, no new acute events, not cooperative w/ care. Physical Exam Physical Exam: General Appearance :Lying on the bed comfortably.non communicative. Re spiratory:normal respiratory effort , lungs clear to a uscultation, no wh eeze, rales, rhonc hi. No accessory muscle use Cardiov ascular: tachycar dic rate, regular rhythm, no murmur, normal peripheral pulses, no BLE ed darian. Vessels: no J VD Chest: normal inspection of ches t Abdomen/GI: nor mal bowel sounds, soft, nontender, n o hepatosplenomega ly Extremities/Mus culoskeletal: no cyanosis or clubbi ng Neurologic/psyc h: Does not answer any questions Ski n: no rashes, nor mal color, warm/dr y, excoriated area near groin but no open wounds visua lized Results & Data Results & Data Vital Signs (Past 12 Hours) Vital Signs Temp Pulse Resp BP Pulse Ox O2 Del Method 01/05/23 15:03 37.1 C 80 17 121/77 96 Room Air 01/05/23 07:44 36.5 C 78 16 132/78 94 Room Air
[2023-01-05] MEDS: MICONAZOLE NITRATE POWDER 85 GM EXT SCH ×2 (15:50→22:40)
[2023-01-06] MEDS: TUBE FEEDING WATER FLUSH PEG SCH ×6 (01:36→20:31)
[2023-01-06] MEDS: FIBERSOURCE HN 1.2 CAL 1000 ML BAG GT SCH (01:50)
[2023-01-06] MEDS: MULTI VIT W/MINERALS LIQUID 15 ML UDP PO SCH (07:59)
[2023-01-06] MEDS: THIAMINE HCL 200 MG in SODIUM CHLORIDE 0.9% 50 ML IV SCH (07:59)
[2023-01-06] MEDS: CHOLECALCIFEROL 5,000 UNITS 125 MCG TAB PEG SCH (07:59)
[2023-01-06] MEDS: MICONAZOLE NITRATE POWDER 85 GM EXT SCH ×2 (07:59→20:31)
[2023-01-06] MEDS: ENOXAPARIN INJ 40 MG/0.4 ML SYR SQ SCH (07:59)
[2023-01-06 08:49] LABS: Albumin Globulin Ratio 1.6 (0.9-2); Albumin Level 3.7 gm/dl (3.4-5.0); BUN Creatinine Ratio 13.3 (10-20); Bilirubin,Total 0.5 mg/dl (0.2-1.0); Calcium 9.1 mg/dl (8.6-10.3); Creatinine Clr Calc Pharmacy 150.5 ml/min; Est GFR (African American) 131.1 ml/min; Est GFR (Non-African American) 113.1 ml/min; Globulin 2.3 gm/dl (2.5-4.0); Magnesium 2.2 mg/dl (1.7-2.4); Phosphorus 3.5 mg/dl (2.5-4.9); Potassium 4.1 mmol/L (3.5-5.1)
--- NOTE | 2023-01-06 12:26 | Hospitalist Progress Note ---
Date of Service January 06, 2023 Assessment & Plan (1) Schizoaffective disorder: (2) Unable to care for self: (3) Starvation ketoacidosis: (4) Severe malnutrition: Plan 42-year-old male with PMH of schizoaffective disorder, catatonia who presents after being found minimally responsive and covered in feces on a welfare check. He was brought to the hospital. Found to have starvation ketosis with anion gap metabolic acidosis. Schizoaffective disorder with catatonia Patient was admitted for 5 months from 02/2021 to 06/2021 in psychiatric unit here in the hospital. Had neurology evaluation including MRI brain which was normal. CT head without acute intracranial abnormality, tox screen negative Prolonged hospital stay Was evaluated by Psychiatry Per psych, pt still does not have capacity in spite of progress previously noted. Mother who is emergency guardian, will continue making decisions for pt. Had a prior hearing to appoint his mother legal guardian until a later hearing to determine if this will be permanent 12/02-Patient ate half of his breakfast however nothing further throughout the day. 12/03 -305 hearing approved. 12/07: Last PPN line and hence nutrition. He ate some of his lunch and some of his dinner on this day. 12/09- pt no responding to provider but is responsive to nursing, re evaluated pt twice with same response. His nurse Tato was able to get him to eat a few doritos, cookie, drank some water and 1/2 carton of ice team at 1528 12/10 - Did not eat 12/11 - Per RN he ate and drank 12/12 - Per RN, ate dinner well 12/13 - Declined food but drank some 12/14 - Drinks some. Not much eating 12/15 - Not eating. Per prior attending - On 12/15/22, I discussed with Dr Garces. She reported patient has been trialed on almost all meds without response and has nothing to offer at this time. Psych recommends ok to continue daytrana if h e eats but if goes days without eating, then daytrana should be stopped to avoid cardiac risks. Daytrana stopped 12/16/2212/17 - per RN no po intake 12/18- only sips of coke on 12/17, no intake today. 12/19 - no intake today per rn 12/20 - pt drank some orange juice in the morning per RN. 12/21 - no intake today per RN. 12/22 - continued to be nonverbal, no oral intake, PPN continues 12/23 - no intake, PPN continues, interdisciplinary team meeting with patient's legal guardian present - planning for PEG and SNF placement 12/24 - drank 375 mL of orange juice and ate half of grilled cheese and nibbled s ome cookies. 12/25 - couple of bite of cookie, most of his fruit, 150 ml of coke. 12/26 - notified by director digital sales that pt had a fever to 104 overnight, was tachycardic (HR in 130s) and hypotensive. Received a 1500cc bolus and currently on NSS@100. Was started on empiric IV Meropenem and Vancomycin. Pt was refusing labs and a second IV line so only one set of Blood Cx was obtained last night, with another set this AM. AM labs reveal an improved WBC from elevation the day prior. Chest XRAY concerning for possible pneumonia (?aspiration), urine not currently suggestive of infection. Email from his mother to dated 12/24/22 reviewed- Notes that she has many questions about the PEG tube and would like daily updates. Mother contacted via phone and advised of current infection, unsure source, being treated with empiric antibiotics. She noted that they will be visiting on ThursdayDec 29 and would like to defer further discussion of PEG tube placement until then. Advised that service would be in agreement to defer PEG tube or any tube placement at this time due to pt's current infection. She verbalized understanding. Continue current empiric abx, follow blood Cx. 12/27- Fever, tachycardia and BP improved today. Empiric Vancomycin and Meropenem discontinued, and pt transitioned to Zosyn. WBC improved. Phosphate was decreased today and repleted. Continue PPN. Mother updated, wanted update on labs. She was agreeable with plan. 12/28- Pt continues to remain stable, slightly tachycardic but no more fevers or hypotension. Continue with Zosyn and PPN. Mother called and updated. Will be he re tomorrow and would like to speak with provider while here. Expressed appreciation of care thus far. 12/29: Vitals are more stable, continue with Zosyn. Patient has not taken any food today. Patient's mother wanted PPN to be held today. She is still deciding on PEG tube. She wanted palliative care consult and ethics consult, both placed. 12/30: Multidisciplinary meeting held with primary attending, psychiatry, palliative care, case management, patient's parents and sister. Agreeable with PEG tube. 12/31: Patient took a few bites of a cookie today. PPN continues. GI to discuss with family regarding PEG tube. 01/01: Per discussion between GI and family, moving forward with PEG placement tomorrow. NPO @ [place], hold SQ heparin, INR 01/02: PEG tube placement by GI at 1400 today 01/03: initiate peg tube feeding,nutrition on board for recs. 01/04 and 01/05: no po intake, c/w peg tube 01/05: continue with peg feedings, no intake Aspiration pneumonia See events above from 12/26 On Zosyn - s/p course Remains afebrile Severe malnutrition Vitamin D deficiency: Received PPN 11/20 -11/27 and one bag on 11/30 Patient continues to have very poor oral intake. See above. monitor electrolytes, replete as appropriate. c/w vitamin d replacement. c/w thiamine. follow folate and b12 level DVT PROPHYLAXIS: SQ Lovenox Pt was seen and examined in collaboration with Dr. 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 intake which has been a big brent during his medical care. Interdisciplinary team meeting was done 12/30 with palliative care, psychiatry, patient's parent, patient's sister, registered nurse hh case manager. Parents were agreeable to PEG tube, s/p PEG tube placement/currently running tube feed. Family wanted ethics committee on board, which had been consulted after persistent wish from the family. Appreciate ethics eval. On exam, patient on room air, noncommunicative. Bilateral axilla with likely fungal infection. antifungal cream to it. Will continue to follow. rest of the exam as above. I have seen and examined the patient and have discussed the case with the provider above. I agree with the assessment and plan as stated. Subjective Pt seen and examined in 377-2. F/U Schizoaffective d/o. Patient would not make eye contact or converse, unable to elicit history. Review of Systems Review of Systems: Unobtainable due to mental health condition Physical Exam Physical Exam: Gen: WD/WN, unkempt facial hair, lying and won't open eyes, NAD HEENT: Normocephalic, atraumatic, mucous membranes dry Lung: breathing normally Heart: unable to assess Abdomen: flat, +peg Extremities: No edema Skin: Warm, moving extremities Results & Data Results & Data Vital Signs (Past 12 Hours) Vital Signs Temp Pulse Resp BP Pulse Ox O2 Del Method 01/06/23 07:17 37.2 C 74 16 113/77 97 Room Air Laboratory Results [facility] 01/06/23 07:40 Sodium 140 Potassium 4.1 Chloride 111 H Carbon Dioxide 23 BUN 10 Creatinine 0.75 Glucose 113 H Calcium 9.1 Liver Function 01/06/23 Range/Units 07:40 Total Bilirubin 0.5 (0.2-1.0) mg/dl AST 16 (13-39) U/L ALT 27 (7-52) U/L Alkaline Phosphatase 86 (34-104) U/L Albumin 3.7 (3.4-5.0) gm/dl Medications Administered Current Inpatient Medications Acetaminophen (Acetaminophen 325 Mg Tab) 650 mg PO Q6H PRN PRN Reason: Fever/Pain Stop: 01/06/23 21:19 Last Admin: 01/03/23 10:27 Dose: 650 mg Enoxaparin Sodium (Enoxaparin Inj 40 Mg/0.4 Ml Syr) 40 mg SQ QAM OG Stop: 01/17/23 08:59 Last Admin: 01/06/23 07:59 Dose: 40 mg Enteral Nutritional Formula (Fibersource Hn 1.2 Yunior 1000 Ml Bag) 0 ml GT .See Protocol OG; Protocol Stop: 02/02/23 15:29 Last Admin: 01/06/23 01:50 Dose: 1,000 ml Thiamine HCl 200 mg/ Sodium (Chloride) 52 mls @ 210 mls/hr IV QAM OG Stop: 01/08/23 09:15 Last Infusion: 01/06/23 08:21 Dose: Infused Miconazole Nitrate (Miconazole Nitrate Powder 85 Gm) 1 appln EXT BID [facility] Stop: 02/04/23 15:44 Last Admin: 01/06/23 07:59 Dose: 1 appln Multivitamins/Minerals (Multi Vit W/Minerals Liquid 15 Ml Udp) 15 ml PO QAM OG Stop: 02/03/23 15:44 Last Admin: 01/06/23 07:59 Dose: 15 ml Sterile Water (Tube Feeding Water Flush) 110 ml PEG Q4H OG Stop: 02/01/23 16:29 Last Admin: 01/06/23 12:05 Dose: 110 ml Thiamine HCl (Thiamine Hcl 100 Mg Tab) 200 mg PO DAILY OG Stop: 02/08/23 08:59 Vitamin D (Cholecalciferol 5,000 Units 125 Mcg Tab) 5,000 units PEG QAM OG Stop: 02/02/23 08:59 Last Admin: 01/06/23 07:59 Dose: 5,000 units
[2023-01-07] MEDS: TUBE FEEDING WATER FLUSH PEG SCH ×6 (01:01→21:41)
[2023-01-07] MEDS: FIBERSOURCE HN 1.2 CAL 1000 ML BAG GT SCH ×2 (01:03→15:39)
[2023-01-07] MEDS: ENOXAPARIN INJ 40 MG/0.4 ML SYR SQ SCH (09:28)
[2023-01-07] MEDS: MULTI VIT W/MINERALS LIQUID 15 ML UDP PO SCH (09:29)
[2023-01-07] MEDS: CHOLECALCIFEROL 5,000 UNITS 125 MCG TAB PEG SCH (09:30)
[2023-01-07] MEDS: MICONAZOLE NITRATE POWDER 85 GM EXT SCH ×2 (09:40→21:41)
[2023-01-07] MEDS: THIAMINE HCL 200 MG in SODIUM CHLORIDE 0.9% 50 ML IV SCH (11:06)
--- NOTE | 2023-01-07 12:41 | Hospitalist Progress Note ---
Date of Service January 07, 2023 Assessment & Plan (1) Schizoaffective disorder: (2) Unable to care for self: (3) Starvation ketoacidosis: (4) Severe malnutrition: Plan 42-year-old male with PMH of schizoaffective disorder, catatonia who presents after being found minimally responsive and covered in feces on a welfare check. He was brought to the hospital. Found to have starvation ketosis with anion gap metabolic acidosis. Schizoaffective disorder with catatonia Patient was admitted for 5 months from 02/2021 to 06/2021 in psychiatric unit here in the hospital. Had neurology evaluation including MRI brain which was normal. CT head without acute intracranial abnormality, tox screen negative Prolonged hospital stay Was evaluated by Psychiatry Per psych, pt still does not have capacity in spite of progress previously noted. Mother who is emergency guardian, will continue making decisions for pt. Had a prior hearing to appoint his mother legal guardian until a later hearing to determine if this will be permanent Had not been eating Tried PPN briefly On 12/15/22, I discussed with Dr Garces. She reported patient has been trialed on almost all meds without response and has nothing to offer at the time. Psych recommends ok to continue daytrana if he eats but if goes days without eating, then daytrana should be stopped to avoid cardiac risks. Daytrana stopped 12/16/22 With patient refusing to eat Had multidisciplinary meeting with Psych, Palliative, CM and family and they agreed on PEG placement PEG tube placed on 01/02/23 Has been on PEG tube feeding since as he continues to refuse oral intake Aspiration pneumonia Completed treatment Severe malnutrition Vitamin D deficiency: Monitor electrolytes, replete as appropriate. c/w vitamin d replacement. c/w thiamine. DVT PROPHYLAXIS: SQ Lovenox Possible dc to Nursing facility tomorrow per CM I spent a total of 30 minutes coordinating, documenting and providing care for this patient excluding time spent in performance of separately billed services Admission and Anticipated Discharge Date Admission Date: November 03, 2022 Subjective Patient seen and examined Patient awake, alert, not answering questions Physical Exam Constitutional: no acute distress Eyes: PERRL, conjunctivae normal, anicteric sclerae Respiratory: normal respiratory effort, lungs clear to auscultation Cardiovascular: Rate/Rhythm: regular rate and regular rhythm S1 S2 Gastrointestinal (Abdomen): normal bowel sounds, soft, nontender, no hepatosplenomegaly PEG in situ Musculoskeletal: No pedal edema Neurologic: Limited due to poor cooperation. Moves all extremities spontaneously Results & Data Results & Data Vital Signs (Past 12 Hours) Vital Signs Temp Pulse Resp BP Pulse Ox O2 Del Method 01/07/23 07:47 37.0 C 83 16 120/78 93 Room Air
--- NOTE | 2023-01-07 15:45 | Communication Note ---
Date of Service: January 07, 2023 Pall Med Brief note Patient has been SNF offer, [facility], with plans for dc tomorrow tolerating PEG feedings no other changes no acute issues in interim Pall med will sign off. no charge submitted TS 20min Thank you for allowing us to participate in the ongoing care of this patient. Please don't hesitate to call or page with any additional concerns. Dr. Odalis Aldana DNP Director, Palliative Care
--- NOTE | 2023-01-07 17:20 | Psychiatric Progress Note ---
Date of Service January 07, 2023 Impression / Recommendations Impression 01/07/2023: PEG now in place. Pt on extended involuntary psychiatric commitment. Exact diagnosis remains murky given poor and inconsistent communication and the varying nature of symptoms over time. Has well-documented extensive trials of an impressive array of possible medication treatments with no evidence of benefit from any. 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 Based on that, I doubt medication is capable of leading to any improvement in his severe primitive needy behavior. He may have mood symptoms that might benefit from medication to a degree, but I think it would be a mistake to conclude that most of the problematic behaviors we see are based in depression at all. If he were to have enough depression to warrant mediation use and a medication actually helped with that (which has not been the case for him despite a truly impressive number of previous medication trials) I would not expect to see any significant behavioral change. In such a case (given the very optimistic condition that he were to respond to medication), he would by definition suffer less. It's difficult for clinicians to a see a sick patient and not offer treatment. However, it's critically important for any such treatment to have a reasonable chance of benefit that exceeds the risks. In the absence of reasons to believe that medication is likely to help, providing medication purely out of the feeling that "something must be done" is likely to do more harm than good. I continue to find it very difficult to justify subjecting this patient to yet another trial of a medication he's tried and failed in the past, but it's clear that there's an ongoing very strong interest in giving him medication nevertheless. 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 Has been largely treatment refractory to all prior antipsychotic and psychiatric medication trials especially when not agreeable to taking po medication. He remains on an extended involuntary psychiatric commitment. Plan is for PEG placement this afternoon, if successful then I would support use of po medications (such as antidepressant trial and/or abilify) via PEG if his mother, who has guardianship, supports this and as opinion for psychiatric medication over objection for treatment of suspected depression. Overall, I spent a total of 25 minutes with this case including review of chart records, review of labwork, discussion with RN and documentation in the electronic health record. (1) Schizoaffective disorder, depressive type: (2) Malnutrition due to starvation: Plan 01/07/2023: If pt's mother, who is now his guardian and knows him much better than we ever will, sees him as seriously depressed (which I don't) and strongly desires to try medication treatment yet again (after a very large number of completely unhelpful trials in the past including every medication it would make any sense to consider trying now) and consents knowing that such medication could cause sedation, muscle rigidity, elevated blood glucose, elevated serum lipids, or potentially irreversible involuntary movements, he could be given aripiprazole 5 mg daily per PEG. He would need to have glycohemoglobin and fasting lipids checked quarterly and, of course, would need to be monitored for evidence of benefit. 01/02/2023: -Could consider use of po antidepressant medications and/or abilify crushed and given via PEG once this is placed and ensuring nutritional status is stable Suicide Risk Level Suicide Risk Level: Low (q15 min observation checks) Suicide Risk Level Comments: pt has voiced no suicidal thoughts Interval History Identifying Information David Diaz is a 42 yo man with a history of schizoaffective disorder admitted medically for severe decompensation with malnutrition, sepsis and metabolic acidosis. Currently on a 305 commitment. Chief Complaint nil Subjective Subjective Patient was seen & assessed and interval progress reviewed in a multidisciplinary team meeting with psychiatric liaison nursing and social work. For details, see the "Impression" section. Procedures Performed Operation Date: 01/02/23 16:30 Actual Procedures p EGD Gastric Tube Placement - Daniel Cheung MD Physical Exam Psychiatric Orientation: + uncooperative Apperance: appropriately dressed and + disheveled Eye Contact: + poor eye contact Motor Behavior: + psychomotor retardation Speech: + mute Affect: + flat affect Cognition: + attention not intact and + language not intact Insight: + severely impaired insight Judgment: + severely impaired judgement Vital Signs (Past 24 Hours) Last Vital Signs Temp 36.8 C 01/07/23 15:56 Pulse 80 01/07/23 15:56 Resp 16 01/07/23 15:56 BP 119/76 01/07/23 15:56 Pulse Ox 94 01/07/23 15:56 O2 Del Method Room Air 01/07/23 15:56 Results & Data ([facility]) Laboratory Results Laboratory Results - last 24 hr 01/07/23 Unknown SARS-CoV-2 (PCR) NEGATIVE Current Inpatient Medications Current Inpatient Medications: Current Inpatient Medications Enoxaparin Sodium (Enoxaparin Inj 40 Mg/0.4 Ml Syr) 40 mg SQ QAM [facility] Stop: 01/17/23 08:59 Last Admin: 01/07/23 09:28 Dose: 40 mg Enteral Nutritional Formula (Fibersource Hn 1.2 Yunior 1000 Ml Bag) 0 ml GT .See Protocol OG; Protocol Stop: 02/02/23 15:29 Last Admin: 01/07/23 15:39 Dose: 1,000 ml Thiamine HCl 200 mg/ Sodium (Chloride) 52 mls @ 210 mls/hr IV QAM OG Stop: 01/08/23 09:15 Last Infusion: 01/07/23 11:33 Dose: Infused Miconazole Nitrate (Miconazole Nitrate Powder 85 Gm) 1 appln EXT BID OG Stop: 02/04/23 15:44 Last Admin: 01/07/23 09:40 Dose: 1 appln Multivitamins/Minerals (Multi Vit W/Minerals Liquid 15 Ml Udp) 15 ml PO QAM OG Stop: 02/03/23 15:44 Last Admin: 01/07/23 09:29 Dose: 15 ml Sterile Water (Tube Feeding Water Flush) 110 ml PEG Q4H OG Stop: 02/01/23 16:29 Last Admin: 01/07/23 16:33 Dose: 110 ml Thiamine HCl (Thiamine Hcl 100 Mg Tab) 200 mg PO DAILY OG Stop: 02/08/23 08:59 Vitamin D (Cholecalciferol 5,000 Units 125 Mcg Tab) 5,000 units PEG QAM OG Stop: 02/02/23 08:59 Last Admin: 01/07/23 09:30 Dose: 5,000 units
[2023-01-07 17:45] LABS: Bilirubin,Total 0.5 mg/dl (0.2-1.0)
[2023-01-08] MEDS: TUBE FEEDING WATER FLUSH PEG SCH ×3 (03:35→08:15)
[2023-01-08] MEDS: FIBERSOURCE HN 1.2 CAL 1000 ML BAG GT SCH (05:37)
[2023-01-08] MEDS: ENOXAPARIN INJ 40 MG/0.4 ML SYR SQ SCH (08:09)
[2023-01-08] MEDS: CHOLECALCIFEROL 5,000 UNITS 125 MCG TAB PEG SCH (08:10)
[2023-01-08] MEDS: MULTI VIT W/MINERALS LIQUID 15 ML UDP PO SCH (08:10)
[2023-01-08] MEDS: MICONAZOLE NITRATE POWDER 85 GM EXT SCH (08:10)
[2023-01-08] MEDS: THIAMINE HCL 200 MG in SODIUM CHLORIDE 0.9% 50 ML IV SCH (09:23)
--- NOTE | 2023-01-08 16:18 | Discharge Summary ---
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 Patient presented to ED 2 days ago prompted by his returned case inspector due to unwillingness to get out of bed for 2 days and catatonic appearance. Was evaluated in ED and did not meet criteria for inpatient stay and was sent home. When patient did not show for therapy appointment, a welfare check was ordered and patient's apartment was found to be in disarray with patient covered in bodily fluids. Patient was conscious and breathing but would not respond to any questions or move. Patient initially hypersomnolent with eyes closed but reportedly perked up after 2.5 L of fluids. Still not verbally responsive on exam. Unable to obtain remainder of ROS due to cognitive state. Per chart review and discussion with psych returned case inspector in ED, patient has had admission to . in the past for catatonia and inability to care for self at home. A 302 was obtained. Per outpatient therapistMILAD Cantor ([phone]), patient has exhibited catatonia like episodes in the past when he stops his medications. Admission Exam Per Admitting Provider General Appearance:WD/WN, vitals as above, NAD, appears unkempt with matted hear, initially covered in fecal material, appears somnolent, reactive to painful stimuli only Head: normocephalic, atraumatic Eyes:normal inspection, PERRL, unable to assess conjunctiva fully due to holding eyes shut when attempts made to open them but surrounding erythema, purulent crusting on lashes ENT: external ear and nose normal, dry mucous membranes of oropharynx Neck: normal visual inspection, trachea midline, no thyromegaly Respiratory:normal respiratory effort, lungs clear to auscultation, no wheeze, rales, rhonchi. No accessory muscle use Cardiovascular: tachycardic rate, regular rhythm, no murmur, normal peripheral pulses, no BLE edema. Vessels: no JVD Chest: normal inspection of chest Abdomen/GI: normal bowel sounds, soft, nontender, no hepatosplenomegaly Extremities/Musculoskeletal: no cyanosis or clubbing, extremities motor strength 5/5 Neurologic/psych:Holds his eyes closed, moves only to painful stimuli.Does not answer any questions Skin: no rashes, normal color, warm/dry, excoriated area near groin but no open wounds visualized Principal Dx & Hospital Course #1 = Principal Diagnosis (1) Schizoaffective disorder: (2) Unable to care for self: (3) Starvation ketoacidosis: (4) Severe malnutrition: Plan This is a 42-year-old male with PMH of schizoaffective disorder, catatonia who presents after being found minimally responsive and covered in feces on a w elfare check. 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 He has remained admitted on an extended involuntary psychiatric commitment. Patient remains non-verbal and has had minimal PO intake requiring PPN. Has also required electrolyte replacements, thiamine and vitamin D supplementation. An interdisciplinary team meeting occurred on 12/30 with palliative care, graham shelby, patient's family returned case inspector.Ethics committee was also involved during this point of admission. As patient was determined to lack decision making capacity, his parents elected to move forward with PEG tube, s/p PEG tube placement on 01/02/23 with currently running tube feeds. Throughout 2 month admission, patient has remained largely treatment refractory to all prior antipsychotic and psychiatric medication trials, of which there are numerous, especially when not agreeable to taking po medication. Ongoing discussion with family and psychiatry about trial of antidepressant and/or A bilify via PEG for treatment of suspected depression. Psychiatry lists significant side effects such as lethargy, muscle rigidity and tardive dyskinesia to be considered if mother elected to move forward with 5mg Abiliy trial. After discussion today, she wishes to hold off on starting Abilify. She will continue discussion with SNFist once patient is discharged there. Will need ongoing psychiatry follow-up. During admission, patient also completed Zosyn course for suspected aspiration pneumonia as well as treatment for fungal infection of axilla. Patient is hemodynamically stable albeit remains non-verbal and non-participatory at time of discharge to SNF. Discharge Exam Gen: WD/WN, NAD, lying in bed, non-verbal, does not engage with questions or follow commands HEENT: Normocephalic, atraumatic, conjunctivae moist, sclerae anicteric, mucous membranes moist Lung: Clear to Auscultation bilaterally but diminished, no wheezes/rales/rhonchi Heart: Regular rate, regular rhythm, no murmurs, rubs, or gallops Abdomen: Soft, NT, ND +BS x 4, + peg tube site clean, no erythema Extremities: no edema Skin: Warm, no rash Updated Medication List Medication Instructions Recorded Confirmed Type cholecalciferol (vitamin D3) 25 25 mcg feeding tube DAILY #30 caps 01/08/23 Rx mcg (1,000 unit) capsule (Vitamin D3) multivit and minerals-ferrous 15 ml feeding tube QAM #236 mL 01/08/23 Rx gluconate 9 mg iron/15 mL oral liquid (Centrum) nutrition [id number] See Rx Instructions .Route 01/08/23 Rx 0.05 gram-1.2 kcal/mL tube feed .COMPLEX #6,000 mL liquid (Fibersource HN) thiamine HCl (vitamin B1) 100 mg 100 mg feeding tube DAILY #30 tabs 01/08/23 Rx tablet Hospital Stay Data Consultations 11/03/22 17:32 ED Decision to Admit Stat 11/03/22 18:39 Consult Psychiatry Routine 12/23/22 15:11 Consult Gastroenterology Routine 12/29/22 12:13 Consult Ethics Routine Consult Palliative Care Routine 01/07/23 14:56 Consult Psychiatry Routine Procedures Performed Operation Date: 01/02/23 16:30 Actual Procedures p EGD Gastric Tube Placement - Daniel Cheung MD Diagnostic Imagining Performed 11/03/22 15:42 CT head/brain wo con Stat Pending Results Patient Have Any Pending Studies at Discharge: No Discharge Instructions Given to Patient (Per Discharging Provider) Mr Diaz You had a prolonged hospital stay for the above listed diagnoses. Your management required multiple specialists. You had PEG tube placed for nutrition due to refusing oral intake. Tube feeding (Fiber source) 70cc/hr. Water flushes 110cc q4hrs. This can be adjusted as needed by Wildfire Prevention Specialist at facility Please continue tube feeding until oral feeding is well established. Trial of aripiprazole 5mg daily can be done at the facility once your mother decides on that. It is important that you continue to follow up with Psychiatry Total Time Total Time Spent Total Time Spent (In Minutes): 75 Supervising Physician Co-Signing Physician Notes Patient seen and examined
[2023-01-09] MEDS ORDERED: THIAMINE HCL 100 MG TAB PO SCH (09:00)
== END 2023-01-08 11:35 | DRG 640 ==
LOC: ED 14:10 → SUATTDRO 17:43 → 4W 17:43 → 3N 11-04 18:07